=== PATIENT | female | born 1955 | race Caucasian/White ===

== ENCOUNTER 2023-06-01 09:13 | Outpatient (OUT) | payer MEDICARE, OTHER, SELFPAY ==
[2023-06-03 12:09] LABS: Calcitriol(1,25 di-OH Vit D) 49.4 pg/mL (24.8-81.5)
== END 2023-06-01 09:14 | disposition home or self-care (01) ==
PROVIDERS: PCP Family Medicine; Visit Provider Podiatrist Foot & Ankle Surgery
DX: M20.11 Hallux valgus (acquired), right foot (principal); M21.611 Bunion of right foot; M19.071 Primary osteoarthritis, right ankle and foot
CPT/HCPCS: 36415; 82306; 82652

== ENCOUNTER 2023-11-05 07:37 | Outpatient (OUT) | payer MEDICARE, OTHER, SELFPAY ==
--- NOTE | 2023-11-05 07:40 | US_ITS ---
[address] [address] Patient Name: CHLOE AGARWAL MRN: [id number] date: 1955 Sex: F Assigned Patient Location: US Current Patient Location: Accession/Order Number: [id number] Exam Date: 11/05/2023 07:48 Report Date: 11/05/2023 09:09 At the request of: YARELIS MCGHEE Procedure: US aorta EXAM: US aorta HISTORY: Abdominal Aortic Aneurysm Without Rupture I71.40 COMPARISON: 03/03/2023 CT exam. TECHNIQUE: Grayscale, color and Doppler FINDINGS: Proximal aorta: 2.5 x 2.4 cm Mid aorta: 1.7 x 1.7 cm Distal aorta: 1.4 x 1.4 cm Right common iliac artery: 1.0 x 1.0 cm Left common iliac artery: 1.1 x 1.0 cm Normal color Doppler flow US/US aorta IMPRESSION: No abdominal aortic aneurysm observed Electronically authenticated by: JULIANA HARRIS Date: 11/05/2023 09:09
== END 2023-11-05 07:38 | disposition home or self-care (01) ==
LOC: US 07:37
PROVIDERS: PCP Family Medicine; Visit Provider Family Medicine
DX: I71.40 Abdominal aortic aneurysm, without rupture, unspecified (principal)
CPT/HCPCS: 76706

== ENCOUNTER 2023-11-25 21:06 | Outpatient (REF) | payer MEDICARE, SELFPAY ==
--- OUTSIDE RECORDS SUMMARY | 2023-11-25 21:11 | XMS_ITS | CCD ---
Author Name Unknown Address [address] [place] [address] Organization [facility] Care Team Providers Care Recycling Coordinator Name Role Phone Adryan Yoon Unavailable Unavailable Adryan Yoon Unavailable Unavailable YARELIS MCGHEE Unavailable Unavailable Fernie Sandoval Unavailable Unavailable Yarelis Mcghee Primary Care Physician BRICE ., DR RANGEL Admitting Unavailabl e KARОЛЕГK ., DR RANGEL Consulting Unavailabl e KARASIK ., DR RANGEL Attending Unavailabl e MISC, DR MORRISSEY Primary Care Unavailable HOY ., DR SANTOYO Primary Care Unavailable ZIEBER, DR RYAN Billingsley Consulting Unavailable NILL ., DR GUZMÁN Admitting Unavailable NILL ., DR GUZMÁN Attending Unavailable NILL ., DR GUZMÁN Consulting Unavailable HOY ., DR SANTOYO Primary Care Unavailable HOY ., DR SANTOYO Consulting Unavailable HOY ., DR SANTOYO Attending Unavailable HOY ., DR SANTOYO Admitting Unavailable ZIEBER, DR RYAN Billingsley Consulting Unavailable HOY ., DR SANTOYO Primary Care Unavailable HOY ., DR SANTOYO Consulting Unavailable HOY ., DR SANTOYO Attending Unavailable HOY ., DR SANTOYO Admitting Unavailable KARASIK ., DR RANGEL Admitting Unavailabl e HOY ., DR SANTOYO Primary Care Unavailable KARASIK ., DR RANGEL Consulting Unavailabl e KARASIK ., DR RANGEL Attending Unavailabl e ZIEBER, DR RYAN Billingsley Consulting Unavailable THIERRY VILLALOBOS Attending Unavailable Vicky Castillo Attending Unavailable FRANCO Castillo Admitting Unavailabl e Yarelis Mcghee Referring Unavailable Yarelis Mcghee Referring Unavailable Demar Trammell Attending Unavailable Demar Trammell Admitting Unavailable Hoy, Yarelis Referring Unavailable Demar Trammell Attending Unavailable MD Demar Trammell Admitting Unavailable Hoy, Yarelis Referring Unavailable Vicky Castillo Attending Unavailable FRANCO Castillo Admitting Unavailabl e MD Demar Trammell Admitting Unavailable Demar Trammell Attending Unavailable Hoy, Yarelis Referring Unavailable NONE, XXXX Referring Unavailable SHALA, Vicky L Attending Unavailable SHALA Vicky L Admitting Unavailable NONE, XXXX Referring Unavailable Landon DOUGLAS Attending Unavailable Landon DOUGLAS Admitting Unavailable NILL, R Attending Unavailable NILL, R Attending Unavailable Vicky Castillo Attending Unavailable Cry, Yarelis Referring Unavailable FRANCO Castillo Admitting Unavailabl e NONE, XXXX Referring Unavailable Landon DOUGLAS Attending Unavailable Landon DOUGLAS Admitting Unavailable NONE, XXXX Referring Unavailable STANVika, Vicky L Attending Unavailable STANG, Vicky L Admitting Unavailable NILL, R Referring Unavailable NILL, R Attending Unavailable NILL, R Admitting Unavailable MD Demar Trammell Admitting Unavailable Demar Trammell Referring Unavailable Demar Trammell Attending Unavailable Claudio Monroe Referring Unavailable Claudio Monroe Attending Unavailable Claudio Monroe Admitting Unavailable Vicky Castillo Attending Unavailable Vicky Castillo Admitting Unavailable Prasad Avalos Attending Unavailable Landon DOUGLAS Referring Unavailable Husain, Basem GRuba Attending Unavailable Husain, Basem GRuba Admitting Unavailable Husain, Basem G. Referring Unavailable HusainCarmen lealm GRuba Attending Unavailable Vicky Castillo Attending Unavailable Hoy, Yarelis Referring Unavailable FRANCO Castillo Admitting UnavailMD Demar Holguin Admitting Unavailable Demar Trammell Attending Unavailable Hoy, Yarelis Referring Unavailable Allergies Allergy Classification Reported Allergen(s) Allergy Type Date of Onset Reaction(s) Facility (1 source) Sulfonamide; Translations: [sulfonamide] Propensity to adverse reactions to drug (disorder) [facility] Repository (20 sources) Sulfonamides (Antibiotic); Translations: [sulfa drugs] Drug allergy unknown [facility] (20 sources) Lisinopril; Translations: [lisinopril] Drug Allergy Coughing - function (qualifier value) [facility] (1 source) Sulfonamides (Antibiotic) Drug allergy (disorder) [facility] Repository (10 sources) gabapentin; Translations: [gabapentin] Drug Allergy Headache (finding) [facility] Medications Current Medications Medication Drug Class(es) Dates Sig (Normalized) Sig (Original) alendronic acid 70 mg oral tablet (18 sources) Bisphosphonate Start: 02-24-20 take 1 tablet by mouth every week alendronate 70 mg Tab TAKE 1 TABLET BY MOUTH 30 MINUTES BEFORE first food once a week, Prophylaxis Start Date: 02/23/23 Status: Ordered gabapentin 300 mg oral capsule (6 sources) Anti-epileptic Agent Start: 05-04-20 gabapentin 300 mg Cap 300 mg = 1 cap(s), Oral, BID, start with once a day for a week. If doing ok can increase to BID, # 60 cap(s), Refills(s) 0, Pharmacy: [facility], 152, cm, 05/04/23 8:55:00 EDT, Height/Length Dosing, 72.6, kg, 05/04/23 8:55:00 EDT, Weight Dosing Start Date: 05/04/23 Status: Ordered hydroCHLOROthiazide 12.5 mg oral capsule (4 sources) Thiazide Diuretic Start: 11-17-19 take 1 capsule by mouth once daily hydrochlorothiazide 12.5 mg Cap 12.5 mg = 1 cap(s), Oral, Daily, # 30 cap(s), Refills(s) 6, Pharmacy: [facility], 152, cm, 11/17/23 11:29:00 EST, Height/Length Dosing, 79.6, kg, 11/17/23 11:29:00 EST, Weight Dosing Start Date: 11/17/23 Status: Ordered linaclotide 0.072 mg oral capsule (3 sources) Guanylate Cyclase-C Agonist Start: 03-19-20 take 1 capsule by mouth once daily Linzess 72 mcg oral capsule 72 mcg = 1 cap(s), Oral, Daily, Refills(s) 0 Start Date: 03/19/21 Status: Ordered lisinopril 20 mg oral tablet (3 sources) Angiotensin Converting Enzyme Inhibitor Start: 09-01-20 take 1 tablet by mouth once daily lisinopril 20 mg Tab 20 mg = 1 tab(s), Oral, Daily, # 30 tab(s), Refills(s) 0 Start Date: 09/01/21 Status: Ordered losartan potassium 100 mg oral tablet (20 sources) Angiotensin 2 Receptor Hermilo Start: 07-14-20 take 1 tablet by mouth at bedtime losartan 100 mg Tab 100 mg = 1 tab(s), Oral, Bedtime, # 90 tab(s), Refills(s) 1, Pharmacy: [facility], 152, cm, 07/14/23 9:26:00 EDT, Height/Length Dosing, 76.9, kg, 07/14/23 9:26:00 EDT, Weight Dosing Start Date: 07/14/23 Status: Ordered Start: 06-30-2023 End: 07-30-2023 take 1 tablet by mouth twice daily losartan 50 mg Tab 50 mg = 1 tab(s), Oral, BID, X 30 day(s), # 60 tab(s), Refills(s) 0, Pharmacy: [facility], 152, cm, 06/30/23 15:07:00 EDT, Height/Length Dosing, 77.5, kg, 06/30/23 15:07:00 EDT, Weight Dosing Start Date: 06/30/23 Stop Date: 07/30/23 Status: Ordered Start: 06-05-2023 End: 07-05-2023 take 1 tablet by mouth once daily losartan 50 mg Tab 50 mg = 1 tab(s), Oral, Daily, X 30 day(s), # 30 tab(s), Refills(s) 0, Pharmacy: [facility], 152.4, cm, 06/05/23 8:54:00 EDT, Height/Length Dosing, 73, kg, 06/05/23 8:54:00 EDT, Weight Dosing Start Date: 06/05/23 Stop Date: 07/05/23 Status: Ordered Start: 11-05-2022 End: 10-31-2023 take 1 tablet by mouth once daily Cozaar 25 mg Tab 25 mg = 1 tab(s), Oral, Daily, stopping Lisinopril Starting Cozaar, X 90 day(s), # 90 tab(s), Refills(s) 3, Pharmacy: [facility], 152, cm, 11/05/22 11:35:00 EST, Height/Length Dosing, 76, kg, 11/05/22 11:35:00 EST, Weight Dosing Start Date: 11/05/22 Stop Date: 10/31/23 Status: Ordered methylPREDNISolone 4 mg oral tablet (1 source) Corticosteroid Start: 09-22-2023 End: 09-28-2023 Medrol 4 mg Tab = 1 packet(s), Oral, As Directed, as directed on package labeling, X 6 day(s), # 21 tab(s), Refills(s) 0, Pharmacy: [facility], 152, cm, 09/22/23 11:39:00 EST, Height/Length Dosing, 70.5, kg, 09/22/23 11:39:00 EST, Weight Dosing Start Date: 09/22/23 Stop Date: 09/28/23 Status: Ordered 24 hr metoprolol succinate 50 mg extended release oral tablet (20 sources) beta-Adrenergic Hermilo Start: 11-17-2023 take 2 tablets by mouth once daily metoprolol 50 mg ER Tab 100 mg = 2 tab(s), Oral, Daily, Refills(s) 0 Start Date: 11/17/23 Status: Ordered Start: 06-30-2023 End: 12-27-2023 take 1 tablet by mouth once daily metoprolol 50 mg ER Tab 50 mg = 1 tab(s), Oral, Daily, # 90 tab(s), Refills(s) 1, Pharmacy: [facility], 152, cm, 07/14/23 9:26:00 EDT, Height/Length Dosing, 76.9, kg, 07/14/23 9:26:00 EDT, Weight Dosing Start Date: 07/14/23 Status: Ordered Start: 11-14-2022 take 1 tablet by herberth once daily metoprolol 25 mg ER Tab 25 mg = 1 tab(s), Oral, Daily, # 90 tab(s), Refills(s) 3, Pharmacy: [facility], 152, cm, 11/05/22 11:35:00 EST, Height/Length Dosing, 76, kg, 11/05/22 11:35:00 EST, Weight Dosing Start Date: 11/14/22 Status: Ordered Start: 10-08-2021 End: 10-03-2022 take 1 tablet by mouth once daily Toprol XL 25 mg Tab-ER 25 mg = 1 tab(s), Oral, Daily, X 90 day(s), # 90 tab(s), Refills(s) 3, Pharmacy: [facility], 152, cm, 10/08/21 13:49:00 EST, Height/Length Dosing, 73, kg, 10/08/21 13:49:00 EST, Weight Dosing Start Date: 10/08/21 Stop Date: 10/03/22 Status: Ordered Multi Vitamin+ (6 sources) Start: 09-22-2023 Multi Vitamin+ Oral, Daily, Refill(s) 0 Start Date: 09/22/23 Status: Ordered Start: 09-22-2023 Multi Vitamin+ Refill(s) 0 Start Date: 09/22/23 Status: Ordered Aleve (6 sources) Nonsteroidal Anti-inflammatory Drug Start: 09-22-2023 Aleve Refills(s) 0 Start Date: 09/22/23 Status: Ordered pantoprazole 40 mg delayed release oral tablet (20 sources) Proton Pump Inhibitor Start: 04-16-2021 take 1 tablet by mouth twice daily Protonix 40 mg Tab-DR 40 mg = 1 tab(s), Oral, BID, # 120 tab(s), Refills(s) 0, Pharmacy: [facility], 152.4, cm, 04/01/21 7:20:00 EDT, Height/Length Dosing, 85.5, kg, 04/01/21 7:20:00 EDT, Weight Dosing Start Date: 04/16/21 Status: Ordered Start: 09-18-2019 take 40 mg by mouth once daily pantoprazole 40 mg, Oral, Daily, Refills(s) 0 Start Date: 09/18/19 Status: Ordered pregabalin 25 mg oral capsule (4 sources) Start: 10-26-2023 pregabalin 25 mg Cap 25 mg = 1 cap(s), Oral, BID, start with once a day for 3-5 days. If doing well can go to BID, # 60 cap(s), Refills(s) 0, Pharmacy: [facility], 152, cm, 10/26/23 13:07:00 EST, Height/Length Dosing, 70.5, kg, 10/26/23 13:07:00 EST, Weight Dosing Start Date: 10/26/23 Status: Ordered rOPINIRole 0.5 mg oral tablet (10 sources) Nonergot Dopamine Agonist Start: 09-22-2023 ropinirole 0.5 mg, O ral, Refills(s) 0 Start Date: 09/22/23 Status: Ordered Start: 02-23-2023 take 1 tablet by herberth th at bedtime ropinirole 0.5 mg Tab take 1 tablet by mouth at bedtime, Other (see comment) Start Date: 02/23/23 Status: Ordered sucralfate 1000 mg oral tablet (20 sources) Aluminum Complex Start: 04-03-2023 take 1 tablet by mouth four times daily Carafate 1 gram Tab 1 gm = 1 tab(s), Oral, QID, # 120 tab(s), Refills(s) 3, Pharmacy: [facility], 152, cm, 04/03/23 9:20:00 EDT, Height/Length Dosing, 80, kg, 04/03/23 9:20:00 EDT, Weight Dosing Start Date: 04/03/23 Status: Ordered Start: 09-01-2021 sucralfate ora l susp Refills(s) 0 Start Date: 09/01/21 Status: Ordered Start: 03-07-2021 Carafate 1 g/1 0 mL Susp-Oral 100 mg/ml, Oral, q4hr, Refills(s) 0 Start Date: 03/07/21 Status: Ordered Completed/Discontinued Medications Medication Drug Class(es) Dates Sig (Normalized) Sig (Original) Adult Blood Pressure Monitor with Large Bicep Cuff (13 sources) Start: 04-28-2023 Adult Blood Pressure Monitor with Large Bicep Cuff Adult Blood Pressure Monitor with Large Bicep Cuff, See Instructions, 1 EA, 0, Check BP Daily Dx I10, Supply Start Date: 04/28/23 Status: Ordered Problems Active Problems Problem Classification Problem Date Documented Date Episodic/Chronic Abdominal hernia (2 sources) Diaphragmatic hernia; Translations: [Diaphragmatic hernia without obstruction or gangrene] Onset: 06-16-202 3 Episodic Abdominal pain (20 sources) Epigastric pain; Translations: [Epigastric pain] Onset: 3 Episodic Appendicitis and other appendiceal conditions (20 sources) Appendicitis 03-07-2021 Episodic Biliary tract disease (1 source) Calculus of gallbladder without cholecystitis without obstruction; Translations: [CALCU GB W/O CHOLECYST W/O OBST] Onset: 3 Episodic Conditions associated with dizziness or vertigo (20 sources) Vertigo; Translations: [Dizziness and giddiness] Onset: 3 03-07-2021 Episodic Diverticulosis and diverticulitis (17 sources) Diverticula of intestine; Translations: [Diverticulosis of large intestine without perforation or abscess without bleeding] Onset: 3 Chronic Esophageal disorders (20 sources) Gastroesophageal reflux disease; Translations: [Gastroesophageal reflux disease without esophagitis] Onset: 3 03-07-2021 Chronic Essential hypertension (20 sources) Essential hypertension; Translations: [Essential (primary) hypertension] Onset: 2 Chronic Fluid and electrolyte disorders (1 source) Hypokalemia; Translations: [Hypokalemia] Onset: 2 Episodic Gastritis and duodenitis (20 sources) Gastritis 03-07-2021 Episodic Nausea and vomiting (20 sources) Regurgitation 03-11-2021 Episodic Nonspecific chest pain (20 sources) Chest pain; Translations: [Chest pain, unspecified] Onset: 3 Episodic Osteoarthritis (20 sources) Osteoarthritis of right knee joint 03-07-2021 Chronic Osteoporosis (20 sources) Osteoporosis; Translations: [Age-related osteoporosis without current pathological fracture] Onset: 3 02-16-2023 Chronic Other connective tissue disease (1 source) Spasm; Translations: [Cramp and spasm] Onset: 2 Episodic Other connective tissue disease (18 sources) H/O: osteoarthritis 02-23-2023 Episodic Other connective tissue disease (6 sources) Tendinitis 09-22-2023 Episodic Other gastrointestinal disorders (1 source) Esophageal dysphagia; Translations: [Dysphagia, pharyngoesophageal phase] Onset: 3 Episodic Other gastrointestinal disorders (19 sources) Dysphagia 02-20-2023 Episodic Other lower respiratory disease (20 sources) Cough 04-17-2021 Episodic Other nutritional; endocrine; and metabolic disorders (20 sources) Body mass index 30+ - obesity 03-08-2021 Chronic Other screening for suspected conditions (not mental disorders or infectious disease) (11 sources) Screening for malignant neoplasm of colon done; Translations: [Encounter for screening for malignant neoplasm of colon] Onset: 2 Episodic Other upper respiratory disease (20 sources) Nasal sinus problem 04-17-2021 Episodic Residual codes; unclassified (1 source) Obstructive sleep apnea syndrome; Translations: [Obstructive sleep apnea (adult) (pediatric)] Onset: 3 Chronic Unclassified (19 sources) Patient encounter status 02-20-2023 Unclassified (2 sources) CONTACT W/AND (SUSP) EXPOS COVID-19; Translations: [CONTACT W/AND (SUSP) EXPOS COVID-19] Onset: 3 Viral infection (1 source) COVID-19; Translations: [COVID-19] Onset: 3 Past or Other Problems Problem Classification Problem Date Documented Date Episodic/Chronic Acute bronchitis (1 source) Acute bronchitis, unspecified; Translations: [ACUTE BRONCHITIS UNSPECIFIED] Onset: 11-10-2022 Episodic Immunizations and screening for infectious disease (1 source) Encounter for screening for human papillomavirus (HPV); Translations: [ENC SCREENING HUMAN PAPILLOMAVIRUS] Onset: 09-27-2022 Episodic Residual codes; unclassified (1 source) Asymptomatic menopausal state; Translations: [ASYMPTOMATIC MENOPAUSAL STATE] Onset: 10-26-2022 Episodic Unclassified (1 source) CONTACT W/AND (SUSP) EXPOS COVID-19; Translations: [CONTACT W/AND (SUSP) EXPOS COVID-19] Onset: 11-05-2022 Results Test Name Value Interpretation Reference Range Facility Consent for Treatmenton Consent for Treatment [id number] [facility] Consultation Noteon 11-20-19 Consultation Note Patient: CHLOE AGARWAL Age: 68 years Sex: Female : 1955 Associated Diagnoses: None Author: Vicky Castillo PA-C Subjective Chief complaint 11/20/2023 13:11 EST low back pain . Patient is a 67-year-old female. She has a past medical history significant for lumbar neuritis, lumbar degenerative disc disease, and lumbar spondylolisthesis. Was more calm and this time around than last time. She states that the Lyrica caused her to have memory problems so she stopped it. She continues to have lower back pain with bilateral leg pain and leg cramping. She had some trigger point injections in her buttocks by her PCP on 11/12/2023. Unfortunate, she notes no long-term relief. She rates her pain a 4/10 at this time. They did look up a spine surgeon and they wonder if there were any local spine surgeons we could refer her to as they feel that we would really like to just get a surgical opinion and get this issue fixed. Patient has difficulty with all aspects of her activities because of the pain. This affects her quality of life. This affects her activities. Health Status Allergies: Allergic Reactions (Selected) Severity Not Documented Gabapentin- Headache. Sulfa drugs- Unknown. Nonallergic Reactions (Selected) Severity Not Documented Lisinopril- Coughing., Allergies (3) Active Severity Reaction sulfa drugs unknown lisinopril Coughing gabapentin Headache Current medications: (Selected) Prescriptions Prescribed Adult Blood Pressure Monitor with Large Bicep Cuff: Adult Blood Pressure Monitor with Large Bicep Cuff, See Instructions, 1 EA, 0, Check BP Daily Dx I10, Supply Carafate 1 gram Tab: 1 gm = 1 tab(s), Oral, QID, # 120 tab(s), Refills(s) 3, Pharmacy: [facility], 152, cm, 04/03/23 9:20:00 EDT, Height/Length Dosing, 80, kg, 04/03/23 9:20:00 EDT, Weight Dosing Protonix 40 mg Tab-DR: 40 mg = 1 tab(s), Oral, BID, # 120 tab(s), Refills(s) 0, Pharmacy: [facility], 152.4, cm, 04/01/21 7:20:00 EDT, Height/Length Dosing, 85.5, kg, 04/01/21 7:20:00 EDT, Weight Dosing hydrochlorothiazide 12.5 mg Cap: 12.5 mg = 1 cap(s), Oral, Daily, # 30 cap(s), Refills(s) 6, Pharmacy: [facility], 152, cm, 11/17/23 11:29:00 EST, Height/Length Dosing, 79.6, kg, 11/17/23 11:29:00 EST, Weight Dosing losartan 100 mg Tab: 100 mg = 1 tab(s), Oral, Bedtime, # 90 tab(s), Refills(s) 1, Pharmacy: [facility], 152, cm, 07/14/23 9:26:00 EDT, Height/Length Dosing, 76.9, kg, 07/14/23 9:26:00 EDT, Weight Dosing pregabalin 25 mg Cap: 25 mg = 1 cap(s), Oral, BID, start with once a day for 3-5 days. If doing well can go to BID, # 60 cap(s), Refills(s) 0, Pharmacy: [facility], 152, cm, 10/26/23 13:07:00 EST, Height/Length Dosing, 70.5, kg, 10/26/23 13:07:00 EST, Weigh... Documented Medications Documented Aleve: Refills(s) 0 Multi Vitamin+: Oral, Daily, Refill(s) 0 alendronate 70 mg Tab: TAKE 1 TABLET BY MOUTH 30 MINUTES BEFORE first food once a week, Prophylaxis hydrochlorothiazide 12.5 mg Cap: 12.5 mg = 1 cap(s), Oral, Daily, # 30 cap(s), Refills(s) 6 metoprolol 50 mg ER Tab: 100 mg = 2 tab(s), Oral, Daily, Refills(s) 0 ropinirole: 0.5 mg, Oral, Refills(s) 0 Problem list: All Problems Chronic GERD / SNOMED CT 382441565 / Confirmed Unilateral primary osteoarthritis, right knee / SNOMED CT 4138509321 / Confirmed Gastritis / SNOMED CT 2351596 / Confirmed Vertigo / SNOMED CT 0793382569 / Confirmed BMI 34.0-34.9,adult / SNOMED CT 263129222 / Confirmed Regurgitation of stomach contents / SNOMED CT 579666972 / Confirmed Osteoporosis / SNOMED CT 525492797 / Confirmed HTN (hypertension) / SNOMED CT 3635623932 / Confirmed Dysphagia / SNOMED CT 34030000 / Confirmed Epigastric pain / SNOMED CT 142275587 / Confirmed Chest pain due to GERD / SNOMED CT 73455508 / Confirmed Screening for malignant neoplasm of colon / SNOMED CT 974479387 / Confirmed H/O: osteoarthritis / SNOMED CT 241078013 / Confirmed Hiatal hernia with gastroesophageal reflux / SNOMED CT 3156885278 / Confirmed Duodenogastric bile reflux / SNOMED CT 67225724 / Confirmed Sigmoid diverticulosis / SNOMED CT 0221415058 / Confirmed Tendonitis / SNOMED CT 55969513 / Confirmed Resolved: GERD - Gastro-esophageal reflux disease / SNOMED CT 6604072852 Resolved: Appendicitis / SNOMED CT 067391917 Resolved: Cough / SNOMED CT 72417744 Resolved: Sinus drainage / SNOMED CT 840674597 Canceled: GERD with apnea / SNOMED CT 8074372310 Objective Vital Signs 11/20/2023 13:11 EST Peripheral Pulse Rate 59 bpm LOW Respiratory Rate 18 br/min Systolic Blood Pressure 156 mmHg HI Diastolic Blood Pressure 81 mmHg Mean Arterial Pressure, Cuff 106 mmHg General: Alert and oriented, No acute distress. Eye: Normal conjunctiva. HENT: Normocephalic, Normal hearing. Cardiovascular: No edema. Musculoskeletal Normal range of motion. Normal strength. 5/5 lower extremity streng (more content not included)... Normal [facility] Comment on above: Result Comment: Elec tronically Signed By: Anna GAMEZ, Vicky\.br\Date and Time Signed: 11/20/23 13:40 EST Office/Clinic Note-Physician on 11-20-2023 Office/Clinic Note-Physician [id number] Normal [facility] Patient Correspondenceon Patient Correspondence [id number] [facility] Consent for Treatmenton 10-21 Consent for Treatment [id number] [facility] Heart and Vascular Office/Cl inic Noteon 11-17-2023 Heart and Vascular Office/Clinic Note History of Present Illness Patient is a very pleasant 68-year-old hypertensive female, nondiabetic, non-smoker, referred to our office after she went to the emergency room on 09/02/2021 with abdominal pain radiating into her back. She reportedly had a stress test, echocardiogram and Holter monitor at [facility] prior to her ER visit on 09/02/2021. Troponins were negative x1, and she was assigned a heart score of 4 and discharged home. In addition the patient apparently had a syncopal episode several weeks prior to her presentation, but cannot recall whether she had any chest pain prior to her syncope.. Her echocardiogram done at [facility] on 08/20/2021 which showed left ventricular systolic function at the lower limits of normal with an LVEF of 50%, normal right-sided pressure. Her stress test dated 08/20/2021 was nondiagnostic based on abnormal T waves in lead III multiple PVCs including couplets and triplets as well as multifocal PVCs. In addition the patient had a hypertensive blood pressure response to exercise, no imaging was performed. Test was terminated due to shortness of breath and dizziness. Patient cannot recall whether she had any chest pain. This then gave way to a Lexiscan/MPI which took place at an outside facility at [facility] on 09/03/2021 which was read as normal. In addition the patient had an EGD in March 2021 which showed hiatal hernia, and antral gastritis. Patient was placed on PPI therapy. Patient states that she has reflux symptoms on a daily basis, and every 4 months has exacerbations of her chest pain. She describes her chest pain is midsternal, severe burning, which produces saliva, no associated nausea, vomiting, diaphoresis and apparently goes up into her throat. Patient also has constant dull gnawing ache in her midepigastrium, and is slated to undergo a gallbladder ultrasound soon. Patient appears to be a very anxious lady. In addition she has a brother in [place] who apparently has coronary disease the specific of which are unknown. To better evaluate the patient's symptoms, I recommend he undergo a cardiac catheterization which took place on 09/17/2021 with the following results: CONCLUSIONS: 1. Normal coronary arteries. 2. Low normal left ventricular function with a left ventricular ejection fraction of 50-55%. 3. Normal left ventricular end-diastolic pressure. 4. Systemic hypertension. [1] Subsequent echocardiogram dated 10/27/2022 is as below: (10/27/2022 09:52 EST Echo Transthoracic Complete) Interpretation Summary Ejection Fraction = 55-60%. The left ventricular wall motion is normal. Grade I diastolic dysfunction, (abnormal relaxation pattern). Trace aortic regurgitation. There is Trace mitral regurgitation. There is trace tricuspid regurgitation. Right ventricular systolic pressure is 35 mmHg. [1] Patient was recently seen in the emergency room on 06/12/2023 with main complaint of dizziness and very high blood pressure with a blood pressure of 173/106. She was then referred here for further evaluation. Patient is now here in follow-up. She is asymptomatic. She is doing quite well. She is tolerating his medicines well. Patient was found to have gallstones, by ultrasound, and needs HIDA scan in the near future. She is going to see a GI doctor Dr. Zambrano. Patient went to Dr. Marquez of GI and was not happy with their visit with him. Patient has had a dry hacking cough ever since starting lisinopril. We switch her to losartan and this is better. Her blood pressure still not well controlled. In addition the patient complains of reflux type symptoms and has a known hiatal hernia. She denies any exertional chest pain or anginal symptoms. Her Toprol ER was increased to 50 mg daily by her PCP. Patient has excessive snoring at night but has never had a sleep study. She is under a significant amount of psychosocial stress with her bipolar son. In our office today his blood pressure is 170/118 and pulse is 68 and regular. Physical exam is as below. Patient has no lipid profile. EKG dated 09/01/2021 shows normal sinus rhythm, normal axis, PVC, no evidence of previous myocardial infarction. Review of Systems Constitutional: no fever, no chills, no weakness, no fatigue Respiratory: no shortness of breath, no cough, no orthopnea, no wheezing Cardiovascular: no chest pain, no palpitations, no edema Neuro: no dizziness no light headed no syncope Additional ROS info: Except as noted in the above Review of Systems and in the History of Present Illness all other systems have been reviewed and are negative or noncontributory. Physical Exam General: alert, no acute distress Neck: Supple, noJVD nocarotid bruit Cardiovascular: regular rate and rhythm, no murmur normal peripheral perfusion Respiratory: Lungs CTA, respirations non labored Extremities: no edema Neurological: oriented x 4, LOC appropriate for age, sensation equal & normal bilaterally, speech normal Skin: Warm, dry, intact- no rash or concerning lesion (more content not included)... [facility] Comment on above: Result Comment: Elec tronically Signed By: MISAEL CANTRELL, Landon Mckinley\.br\Date and Time Signed: 11/17/23 11:44 EST Physician Orderon 11-17-2023 Physician Order [id number]#1.00TIFF [facility] XR Pelvis 1 or 2 Viewson XR Pelvis 1 or 2 Views Exam Date/Time: 10/26/2023 13:48 EST Reason for Exam: [id number] Report IMPRESSION: NO ACUTE OSSEOUS ABNORMALITY. EXAM: XR Pelvis 1 or 2 Views HISTORY: Right buttock and knee pain. Left groin pain. COMPARISON: None available TECHNIQUE: Single AP film of the pelvis obtained. FINDINGS: No acute displaced pelvic fracture. Degenerative changes of both sacroiliac joints. Joint spaces of both hips are maintained. Soft tissues appear within normal limits. Ordering Provider: Vicky Castillo FINAL REPORT Dictated: 10/27/2023 1:01 pm Nico Rogers DO Signed (Electronic Signature): 10/27/2023 1:01 pm Signed by: Nico Rogers DO Transcribed by: SCOTTY Technologist: DANIELLE Technical Comments Radiation Dose: Ka,r in mGy = na DAP = na [facility] XR Spine Lumbosacral 2 or 3 Viewson 10-27-2023 XR Spine Lumbosacral 2 or 3 Views Exam Date/Time: 10/26/2023 13:48 EST Reason for Exam: [id number] Report IMPRESSION: DEGENERATIVE CHANGES OF THE LUMBAR SPINE DETAILED. POSSIBLE DISTAL ABDOMINAL AORTIC ANEURYSM. CT ANGIOGRAM OF THE ABDOMEN AND PELVIS WITH CONTRAST IS RECOMMENDED TO FURTHER EVALUATE. EXAMINATION: XR Spine Lumbosacral 2 or 3 Views TECHNIQUE: AP and lateral views lumbar spine and coned-down lateral view of the lumbosacral junction HISTORY: Right buttock and knee pain. Left groin pain. COMPARISONS: None available. FINDINGS: Minimal levocurvature. Lumbar vertebral body heights are maintained. Bilateral L5 spondylolysis with grade 2 anterolisthesis of L5 on S1 of approximately 14 mm. Severe intervertebral disc height loss at L5-S1. Suspect bilateral neuroforaminal stenosis at L5-S1. Atherosclerotic calcification of the abdominal aorta. Question distal abdominal aortic aneurysm based on the configuration of the atherosclerotic calcifications. Ordering Provider: Vicky Castillo FINAL REPORT Dictated: 10/27/2023 12:36 pm Nico Rogers DO Signed (Electronic Signature): 10/27/2023 12:36 pm Signed by: Nico Rogers DO Transcribed by: SCOTTY Technologist: DANIELLE Technical Comments Radiation Dose: Ka,r in mGy = na DAP = na [facility] Consent for Treatmenton Consent for Treatment [id number]#1.00TIFF [facility] Consent for Treatment [id number]#1.00TIFF [facility] Consultation Noteon 10-26-19 24 Consultation Note Patient: CHLOE AGARWAL Age: 68 years Sex: Female : 1955 Associated Diagnoses: None Author: Vicky Castillo PA-C Subjective Chief complaint 10/26/2023 12:48 EST pain across lower back- down bilat legs (into left groin) . Patient is a 67-year-old female. She has a past medical history significant for lumbar neuritis, lumbar degenerative disc disease, and lumbar spondylolisthesis. She presents today for follow-up after undergoing a right-sided L5-S1 transforaminal epidural steroid injection. This was done on 10/07/2023 and she states gave her short-term relief but unfortunate, nothing long-term. She is still having lower back pain with right radiating leg pain that the states that something aggressive needs to be done about because she was crying all weekend and they cannot continue to have her have this much pain. She also admits to some left-sided groin pain. She states that this is new. She rates her pain a 10/10. Patient has difficulty with all aspects of her activities because of the pain. This affects her ability to come to. This affects her quality of life. This affects her activities and affects her ability to do the things she wants to do. She wonders what her options are to try to get some pain relief. She states that steroids historically have worked very well for her. Health Status Allergies: Allergic Reactions (Selected) Severity Not Documented Gabapentin- Headache. Sulfa drugs- Unknown. Nonallergic Reactions (Selected) Severity Not Documented Lisinopril- Coughing., Allergies (3) Active Reaction gabapentin Headache lisinopril Coughing sulfa drugs unknown Current medications: (Selected) Prescriptions Prescribed Adult Blood Pressure Monitor with Large Bicep Cuff: Adult Blood Pressure Monitor with Large Bicep Cuff, See Instructions, 1 EA, 0, Check BP Daily Dx I10, Supply Carafate 1 gram Tab: 1 gm = 1 tab(s), Oral, QID, # 120 tab(s), Refills(s) 3, Pharmacy: [facility], 152, cm, 04/03/23 9:20:00 EDT, Height/Length Dosing, 80, kg, 04/03/23 9:20:00 EDT, Weight Dosing Protonix 40 mg Tab-DR: 40 mg = 1 tab(s), Oral, BID, # 120 tab(s), Refills(s) 0, Pharmacy: [facility], 152.4, cm, 04/01/21 7:20:00 EDT, Height/Length Dosing, 85.5, kg, 04/01/21 7:20:00 EDT, Weight Dosing losartan 100 mg Tab: 100 mg = 1 tab(s), Oral, Bedtime, # 90 tab(s), Refills(s) 1, Pharmacy: [facility], 152, cm, 07/14/23 9:26:00 EDT, Height/Length Dosing, 76.9, kg, 07/14/23 9:26:00 EDT, Weight Dosing metoprolol 50 mg ER Tab: 50 mg = 1 tab(s), Oral, Daily, # 90 tab(s), Refills(s) 1, Pharmacy: [facility], 152, cm, 07/14/23 9:26:00 EDT, Height/Length Dosing, 76.9, kg, 07/14/23 9:26:00 EDT, Weight Dosing pregabalin 25 mg Cap: 25 mg = 1 cap(s), Oral, BID, start with once a day for 3-5 days. If doing well can go to BID, # 60 cap(s), Refills(s) 0, Pharmacy: [facility], 152, cm, 10/26/23 13:07:00 EST, Height/Length Dosing, 70.5, kg, 10/26/23 13:07:00 EST, Weigh... Documented Medications Documented Aleve: Refills(s) 0 Multi Vitamin+: Oral, Daily, Refill(s) 0 alendronate 70 mg Tab: TAKE 1 TABLET BY MOUTH 30 MINUTES BEFORE first food once a week, Prophylaxis ropinirole: 0.5 mg, Oral, Refills(s) 0 Problem list: All Problems Chronic GERD / SNOMED CT 417822046 / Confirmed Unilateral primary osteoarthritis, right knee / SNOMED CT 9147657147 / Confirmed Gastritis / SNOMED CT 4729780 / Confirmed Vertigo / SNOMED CT 3918967937 / Confirmed BMI 34.0-34.9,adult / SNOMED CT 268612219 / Confirmed Regurgitation of stomach contents / SNOMED CT 176900320 / Confirmed Osteoporosis / SNOMED CT 626142603 / Confirmed HTN (hypertension) / SNOMED CT 9067471854 / Confirmed Dysphagia / SNOMED CT 74432561 / Confirmed Epigastric pain / SNOMED CT 742348140 / Confirmed Chest pain due to GERD / SNOMED CT 78989571 / Confirmed Screening for malignant neoplasm of colon / SNOMED CT 930706320 / Confirmed H/O: osteoarthritis / SNOMED CT 926986625 / Confirmed Hiatal hernia with gastroesophageal reflux / SNOMED CT 1701140398 / Confirmed Duodenogastric bile reflux / SNOMED CT 83573758 / Confirmed Sigmoid diverticulosis / SNOMED CT 6536373205 / Confirmed Tendonitis / SNOMED CT 84581136 / Confirmed Resolved: GERD - Gastro-esophageal reflux disease / SNOMED CT 7875624799 Resolved: Appendicitis / SNOMED CT 936802598 Resolved: Cough / SNOMED CT 29944121 Resolved: Sinus drainage / SNOMED CT 394814593 Canceled: GERD with apnea / SNOMED CT 7189764458 Objective Vital Signs 10/26/2023 12:48 EST Peripheral Pulse Rate 66 bpm Respiratory Rate 20 br/min Systolic Blood Pressure 143 mmHg HI Diastolic Blood Pressure 88 mmHg Mean Arterial Pressure, Cuff 106 mmHg General: Alert and oriented, No acute distress. Overweight Eye: Normal conjunctiva. HENT: Normocephalic, Normal hearing. Cardiovascular: No edema. Musculoskeletal Nor (more content not included)... [facility] Comment on above: Result Comment: Elec tronically Signed By: Anna GAMEZ, Vicky\.br\Date and Time Signed: 10/26/23 13:22 EST Legal Correspondence Officeo n 10-26-2023 Legal Correspondence Office [id number]#1.00TIFF [facility] Office/Clinic Note-Physician on 10-26-2023 Office/Clinic Note-Physician [id number]#1.00TIFF [facility] Patient Correspondenceon Patient Correspondence [id number]#1.00TIFF [facility] Patient Correspondence [id number]#1.00TIFF [facility] Patient Correspondence [id number]#1.00TIFF [facility] Patient Correspondence [id number]#1.00TIFF [facility] Patient History Officeon Patient History Office [id number]#1.00TIFF [facility] Physician Orderon 10-26-2023 Physician Order [id number]#1.00TIFF [facility] Physician Order [id number]#1.00TIFF [facility] Consent for Procedure/Surger yon 10-07-2023 Consent for Procedure/Surgery [id number]#1.00TIFF [facility] Consent for Treatmenton 09-19 Consent for Treatment [id number]#1.00TIFF [facility] Discharge Instructionson Discharge Instructions [id number]#1.00TIFF [facility] IntraOperative Documentson 12-08-2022 IntraOperative Documents [id number]#1.00TIFF [facility] Main OR Intraoperative Recor don 10-07-2023 Main OR Intraoperative Record IntraOp Document Type FTPM Summary Primary Physician: Claudio Monroe DO Finalized Date/Time: 10/07/23 09:50:14 Pt. Name: CHLOE AGARWAL/Sex: 1955 Female Med Rec #: [id number] Physician: Claudio Monroe DO Financial #: [id number] Pt. Type: P Room/Bed: / Admit/Disch: 10/07/23 08:38:44 - Institution: Case Times FTPM Entry 1 Patient Times In Room 10/07/23 09:41:00 Out Room 10/07/23 09:50:00 Procedure Times Start 10/07/23 09:44:00 Stop 10/07/23 09:49:00 Anesthesia Times Last Modified By: Lashanda Durant RN 10/07/23 09:49:58 Case Attendance FTPM Entry 1 Entry 2 Entry 3 Case Attendee Claudio Monroe DO, RN, Lashanda Erickson RN, [facility] Role Performed Surgeon - Primary [employer] Photographs Detailer - Primary Scrub - Primary Time In 10/07/23 09:41:00 10/07/23 09:41:00 10/07/23 09:41:00 Time Out 10/07/23 09:50:00 10/07/23 09:50:00 10/07/23 09:50:00 Procedure TRANSFORAMINAL EPIDURAL TRANSFORAMINAL EPIDURAL TRANSFORAMINAL EPIDURAL STEROID INJECTIO(Right) STEROID INJECTIO(Right) STEROID INJECTIO(Right) Comments Last Modified By: Lashanda Durant RN, RN, Lashanda Elizalde RN 10/07/23 09:49:59 10/07/23 09:49:59 10/07/23 09:49:59 Entry 4 Case Attendee Faustino Dorado Role Performed Freight Breaker Time In 10/07/23 09:41:00 Time Out 10/07/23 09:50:00 Procedure TRANSFORAMINAL EPIDURAL STEROID INJECTIO(Right) Comments Last Modified By: Lashanda Durant RN 10/07/23 09:49:59 Perioperative Protocols FTPM Pre-Care Text: Implements protective measures prior to operative or invasive procedure, confirms identity before the operative or invasive procedure, verifies operative procedure, surgical site, and laterality Entry 1 Procedure(s) TRANSFORAMINAL EPIDURAL Patient Identity Birthday, ID Band STEROID INJECTIO(Right) Verified (select at Check, Patient least 2): Participation Consents / H and P HandP, Surgery/Procedure Operative Site Present Verified Consent Marking Verified Surgical Site Yes Laterality Verified Yes Verified Procedure Verified Yes Correct Patient Yes Position Verified Availability Equipment, Medication, Prep Dry Yes Verified (If X-ray Applicable) PreOp Antibiotic No Time Out Lashanda Durant RN, Given William Erickson RN, Fer Cruz DO, Bradford A., Hargrove, Bryce Time Out Complete 10/07/23 09:41:00 Outcomes Met? Yes Last Modified By: Lashanda Durant RN 10/07/23 09:42:01 Post-Care Text: The patient is free from signs and symptoms of injury caused by extraneous objects Allergy Information FTPM Pre-Care Text: Verifies allergies Entry 1 Allergies Reviewed? Yes Allergies Reviewed Self/Patient With Outcomes Met? Yes Last Modified By: Lashanda Durant RN 10/07/23 09:32:07 Post-Care Text: The patient received appropriate medication(s) safely administered during the perioperative period Surgical Procedures FTPM Entry 1 Procedure Description Procedure TRANSFORAMINAL EPIDURAL Modifiers Right STEROID INJECTION Surgeon Description L5/S1 TFESI Primary Procedure Yes Primary Surgeon Claudio Monroe DO Start 10/07/23 09:44:00 Stop 10/07/23 09:49:00 Anesthesia Type None Surgical Service Pain Management Wound Class 1 - Clean Last Modified By: Lashanda Durant RN 10/07/23 09:50:01 General Case Data FTPM Pre-Care Text: Classifies surgical wound, implements aseptic technique, initiates traffic control Entry 1 Case Information OR Pain Proc Room Case Level Level 2 Wound Class 1 - Clean Specialty Pain Management Preop Diagnosis M54.16 Postop Same As Preop Yes Postop Diagnosis M54.16 Outcomes Met? Yes Last Modified By: Lashanda Durant RN 10/07/23 09:42:14 Post-Care Text: The patient is free from signs and symptoms of infection Skin Assessment (Pre Procedure) FTPM Pre-Care Text: Implements protective measures to prevent skin/ tissue injury due to thermal or mechanical sources Evaluates for signs and symptoms of physical injury to skin and tissue Entry 1 Skin Integrity Intact, Sanders, Warm, and Skin Abnormality No Dry Outcomes Met? Yes Last Modified By: Lashanda Durant RN 10/07/23 09:32:15 Post-Care Text: The patient is free from signs and symptoms of injury caused by extraneous objects Patient Positioning FTPM Pre-Care Text: Identifies physical alterations that require additional precautions for procedure-specific positioning, verifies presence of prosthetics or corrective devices, positions the patient, evaluates the patient for signs and symptoms of injury as a result of positioning Entry 1 Procedure TRANSFORAMINAL EPIDURAL Body Position Prone STEROID INJECTIO(Right) Feet Uncrossed? Yes Left Arm Position Resting at Side Right Arm Position Resting at Side Left Leg Position Extended Right Leg Position Extended Positioning Device Pillow Under Head Large, Safety Strap, Pillow Large Under Knees Press Point (more content not included)... [facility] Main OR Preoperative Recordo n 10-07-2023 Main OR Preoperative Record Holding Area Document Type FT Summary Primary Physician: Claudio Monroe DO Finalized Date/Time: 10/07/23 09:09:26 Pt. Name: CHLOE AGARWAL D.O.B./Sex: 1955 Female Med Rec #: [id number] Physician: Claudio Monroe DO Financial #: [id number] Pt. Type: P Room/Bed: / Admit/Disch: 10/07/23 08:38:44 - Institution: Case Times Holding FTPM Pre-Care Text: Verifies consent for planned procedure, identifies individual values and wishes concerning care, includes family members in perioperative teaching Secures patient's records' belongings, and valuables, maintains patient's dignity and privacy, and maintains patient confidentiality Entry 1 In Holding 10/07/23 09:07:00 Outcomes Met? Yes Last Modified By: Shea Aguirre RN 10/07/23 09:07:21 Post-Care Text: The patient participates in decisions affecting his or her perioperative plan of care The patient's right to privacy is maintained Surgery Checklist FTPM Entry 1 Patient Birthday, ID Band Procedure History and Physical, Identification: Check, Patient Verification: Surgical Consent, With Participation Patient NPO after Midnight: n/a Date/Time: 10/07/23 08:50:00 Results Reviewed water Personal Items: Glasses Comments: Complaints of Pain: Yes Pain Comment: 5/10 to right lower back Operative Site Yes Marked By: operative site marked Marking: by Dr. Monroe Location: right l5/s1 Availability Equipment, X-Ray Verified: Does Patient Smoke No Patient states Yes Comment - Adult Gilberto-spouse postop adult Supervision supervision available Case Cancelled in No Holding Area see comments below for reason Last Modified By: Shea Aguirre RN 10/07/23 09:09:21 Finalized By: Shea Aguirre RN Document Signatures Signed By: Shea Aguirre RN 10/07/23 09:09 [facility] Patient Correspondenceon Patient Correspondence [id number]#1.00TIFF [facility] Consent for Treatmenton Consent for Treatment [id number]#1.00TIFF [facility] Consultation Noteon 09-22-20 Consultation Note Patient: CHLOE AGARWAL Age: 67 years Sex: Female : 1955 Associated Diagnoses: None Author: Demar Trammell MD Subjective Chief complaint 09/22/2023 11:23 EST Back & Right Leg Pain . 67-year-old female with a history of lumbar radiculopathy secondary to foraminal stenosis due to L5-S1 spondylolisthesis. She had been doing very well following her bilateral L5/S1 transforaminal epidural steroid injection performed in February of this year. Pain started in the right low back and radiates down the posterior aspect of the right leg into the ankle. Pain started to be severe several days ago with no inciting injury or trauma. She continues to do her therapy exercises and taking Aleve without benefit. Patient is miserable. Hard to walk and stand. Hard to sleep. Pain rates as a 10 out of 10 on the visual analog scale. ELVIS is 54. Denies red flag symptoms. Health Status Allergies: Allergic Reactions (All) Severity Not Documented Gabapentin- Headache. Sulfa drugs- Unknown. Nonallergic Reactions (All) Severity Not Documented Lisinopril- Coughing. Current medications: (Selected) Prescriptions Prescribed Adult Blood Pressure Monitor with Large Bicep Cuff: Adult Blood Pressure Monitor with Large Bicep Cuff, See Instructions, 1 EA, 0, Check BP Daily Dx I10, Supply Carafate 1 gram Tab: 1 gm = 1 tab(s), Oral, QID, # 120 tab(s), Refills(s) 3, Pharmacy: [facility], 152, cm, 04/03/23 9:20:00 EDT, Height/Length Dosing, 80, kg, 04/03/23 9:20:00 EDT, Weight Dosing Medrol 4 mg Tab: = 1 packet(s), Oral, As Directed, as directed on package labeling, X 6 day(s), # 21 tab(s), Refills(s) 0, Pharmacy: [facility], 152, cm, 09/22/23 11:39:00 EST, Height/Length Dosing, 70.5, kg, 09/22/23 11:39:00 EST, Weight Dosing Protonix 40 mg Tab-DR: 40 mg = 1 tab(s), Oral, BID, # 120 tab(s), Refills(s) 0, Pharmacy: [facility], 152.4, cm, 04/01/21 7:20:00 EDT, Height/Length Dosing, 85.5, kg, 04/01/21 7:20:00 EDT, Weight Dosing losartan 100 mg Tab: 100 mg = 1 tab(s), Oral, Bedtime, # 90 tab(s), Refills(s) 1, Pharmacy: [facility], 152, cm, 07/14/23 9:26:00 EDT, Height/Length Dosing, 76.9, kg, 07/14/23 9:26:00 EDT, Weight Dosing metoprolol 50 mg ER Tab: 50 mg = 1 tab(s), Oral, Daily, # 90 tab(s), Refills(s) 1, Pharmacy: [facility], 152, cm, 07/14/23 9:26:00 EDT, Height/Length Dosing, 76.9, kg, 07/14/23 9:26:00 EDT, Weight Dosing Documented Medications Documented Aleve: Refills(s) 0 Multi Vitamin+: Refill(s) 0 alendronate 70 mg Tab: TAKE 1 TABLET BY MOUTH 30 MINUTES BEFORE first food once a week, Prophylaxis ropinirole: 0.5 mg, Oral, Refills(s) 0 Problem list: All Problems BMI 34.0-34.9,adult / SNOMED CT 834926596 / Confirmed Chest pain due to GERD / SNOMED CT 90783054 / Confirmed Chronic GERD / SNOMED CT 683632479 / Confirmed Duodenogastric bile reflux / SNOMED CT 24970885 / Confirmed Dysphagia / SNOMED CT 46633930 / Confirmed Epigastric pain / SNOMED CT 441266957 / Confirmed Gastritis / SNOMED CT 9895774 / Confirmed H/O: osteoarthritis / SNOMED CT 939722698 / Confirmed Hiatal hernia with gastroesophageal reflux / SNOMED CT 2218470645 / Confirmed HTN (hypertension) / SNOMED CT 8075912367 / Confirmed Osteoporosis / SNOMED CT 681701090 / Confirmed Regurgitation of stomach contents / SNOMED CT 898315766 / Confirmed Screening for malignant neoplasm of colon / SNOMED CT 761443773 / Confirmed Sigmoid diverticulosis / SNOMED CT 4929130563 / Confirmed Tendonitis / SNOMED CT 57731268 / Confirmed Unilateral primary osteoarthritis, right knee / SNOMED CT 8972504005 / Confirmed Vertigo / SNOMED CT 5215574639 / Confirmed Objective Vital Signs 09/22/2023 11:23 EST Peripheral Pulse Rate 60 bpm Respiratory Rate 14 br/min Systolic Blood Pressure 138 mmHg Diastolic Blood Pressure 88 mmHg Mean Arterial Pressure, Cuff 105 mmHg General: No acute distress. Alert and oriented x 3. Well-nourished. Well-developed. Musculoskeletal: Arises slowly from a seated position. Tender in the right sciatic notch region. There is no tenderness palpation throughout the lumbar spine. Minimal pain on flexion lumbar spine. There is pain that radiates down the posterior aspect of the right leg with extension of the lumbar spine. No pain with range of motion of the right hip and knee. No tenderness palpation over the greater trochanter on the right. Neuro: Positive straight leg raise on the right at 10 degrees. Negative straight leg raise on the left. Ankle clonus is absent bilaterally. Absent Achilles reflex on the right. Results Review MRI results again were reviewed which demonstrates lateral recess stenosis and foraminal stenosis at L5-S1 due to a grade 2 spondylolisthesis secondary to pars defect. Impression and Plan 67-year-old female with severe right low back and leg pain consistent with lumbosacral radiculopathy that has returned after she (more content not included)... [facility] Comment on above: Result Comment: Elec tronically Signed By: Valeri CANTRELL, Demar Leal\.br\Date and Time Signed: 09/22/23 11:54 EST Office/Clinic Note-Physician on 09-22-2023 Office/Clinic Note-Physician [id number]#1.00TIFF [facility] Patient Correspondenceon Patient Correspondence [id number]#1.00TIFF [facility] Patient Correspondence [id number]#1.00TIFF [facility] Patient History Officeon Patient History Office [id number]#1.00TIFF [facility] Physician Orderon 07-28-2023 Physician Order [id number]#1.00TIFF [facility] Consenton 07-24-2023 Consent [id number]#1.00TIFF [facility] Patient Eval Forms Officeon 07-24-2023 Patient Eval Forms Office [id number]#1.00TIFF [facility] Patient Eval Forms Office [id number]#1.00TIFF [facility] Consent for Treatmenton Consent for Treatment [id number]#1.00TIFF [facility] Physician Orderon 07-16-2023 Physician Order [id number]#1.00CD:1 27 [facility] Heart and Vascular Office/Cl inic Noteon 07-15-2023 Heart and Vascular Office/Clinic Note Chief Complaint 2 week blood pressure check History of Present Illness Chloe Agarwal is a 67-year-old female patient of Dr. Vaughn here today for blood pressure check. She was recently uptitrated her losartan to a total of 100 a day as well as uptitrated dose of metoprolol succinate. She brings a blood pressure log and overall blood pressures fairly stable. She does have low readings in the mornings and higher at night. She is making attempts to lose weight with diet and exercise. She has been referred for sleep study, however, she has not set this up. Reluctant to do so. Currently looking for a new primary care Review of Systems PHQ Score Initial Depression Screen Score: 0 Constitutional: no fever, no chills, no weakness, no fatigue Respiratory: no shortness of breath, no cough, no orthopnea, no wheezing Cardiovascular: no chest pain, no palpitations, no edema Neuro:no dizziness no light headed no syncope Additional ROS info: Except as noted in the above Review of Systems and in the History of Present Illness all other systems have been reviewed and are negative or noncontributory. Physical Exam Vitals & Measurements HR: 67(Peripheral) BP: 146/78 SpO2: 98% HT: 60 in HT: 152 cm WT: 76.9 kg WT: 169.18 lb BMI: 33.28 General: alert, no acute distress Neck: Supple, noJVD nocarotid bruit Cardiovascular: regular rate and rhythm, no murmur normal peripheral perfusion Respiratory: Lungs CTA, respirations non labored Extremities:no edema Neurological: oriented x 4, LOC appropriate for age, sensation equal & normal bilaterally, speech normal Skin: Warm, dry, intact- no rash or concerning lesions Assessment/Plan 1. Encounter for blood pressure examination (Z01.30: Encounter for examination of blood pressure without abnormal findings) Blood pressure is fairly well controlled, low in am and high in evenings. She will take Losartan 100 mg at bedtime and metoprolol succinate in am Keep BP log We discussed sleep study and weight loss. 2. Obstructive sleep apnea of adult (G47.33: Obstructive sleep apnea (adult) (pediatric)) STOP BANG Questionnaire Snoring- Do you snore loudly (loud enough to be heard through closed doors or your bed-partner elbows you for snoring?) Yes Tired- Do you often feel TIRED, FATIGUED, or SLEEPY during the daytime (such as falling asleep during driving or talking to someone)?Yes Observed- Has anyone observed you STOP BREATHING or CHOKING/GASPING during your sleep?Yes Pressure- Do you have or are you being treated for high blood pressure?Yes BMI- more than 35?NO Age- Older than 50?Yes Neck size large? (Measures around [place]- male 17 in or 43 cm+, female 16 in/41 cm+)No Gender- Male?No CHUY - High Risk : Yes to 5 questions or Yes to 2 or more of 4 STOP questions Recommend baseline study to rule out CHUY Orders: losartan, 100 mg = 1 tab(s), Oral, Bedtime, # 90 tab(s), Refills(s) 1, Pharmacy: [facility], 152, cm, 07/14/23 9:26:00 EDT, Height/Length Dosing, 76.9, kg, 07/14/23 9:26:00 EDT, Weight Dosing metoprolol, 25 mg = 1 tab(s), Oral, Daily, # 90 tab(s), Refills(s) 3, Pharmacy: [facility], 152, cm, 11/05/22 11:35:00 EST, Height/Length Dosing, 76, kg, 11/05/22 11:35:00 EST, Weight Dosing metoprolol, 50 mg = 1 tab(s), Oral, Daily, X 30 day(s), # 30 tab(s), Refills(s) 5, Pharmacy: [facility], 152, cm, 06/30/23 15:07:00 EDT, Height/Length Dosing, 77.5, kg, 06/30/23 15:07:00 EDT, Weight Dosing metoprolol, 50 mg = 1 tab(s), Oral, Daily, # 90 tab(s), Refills(s) 1, Pharmacy: [facility], 152, cm, 07/14/23 9:26:00 EDT, Height/Length Dosing, 76.9, kg, 07/14/23 9:26:00 EDT, Weight Dosing Portions of this record may have been created with voice recognition artificial intelligence software, specifically [employer], [employer] to transform cities and or [employer]. Substitutions may have occurred due to the inherent limitations of voice recognition and artificial intelligence software. Follow-up No qualifying data available Problem List/Past Medical History Ongoing BMI 34.0-34.9,adult Chest pain due to GERD Chronic GERD Duodenogastric bile reflux Dysphagia Epigastric pain Gastritis H/O: osteoarthritis Hiatal hernia with gastroesophageal reflux HTN (hypertension) Osteoporosis Regurgitation of stomach contents Screening for malignant neoplasm of colon Sigmoid diverticulosis Unilateral primary osteoarthritis, right knee Vertigo Historical Appendicitis Cough GERD - Gastro-esophageal reflux disease Sinus drainage Procedure/Surgical History Injection of steroid into hip joint (04/20/2023), Colonoscopy (04/03/2023), Colonoscopy (04/03/2023), EGD - Esophagogastroduodenoscop y (04/03/2023), Esophagogastroduodenoscop y (04/03/2023), Injection of nerve root of lumbar spine using fluoroscopic guidance (03/17/2023), Cardiac catheterization procedure (09/17/2021), EGD - Esophagogastroduodenoscop y (04/01/2021), (more content not included)... [facility] Comment on above: Result Comment: Elec tronically Signed By: Vicky LAST CNP\.elmo\Date and Time Signed: 07/15/23 12:36 EDT Physician Orderon 07-15-2023 Physician Order [id number]#1.00CD:1 27 [facility] Consent for Treatmenton 06-20 Consent for Treatment [id number]#1.00CD:12 7 [facility] Physician Orderon 07-14-2023 Physician Order [id number]#1.00CD:1 27 [facility] Consent for Treatmenton 06-19 Consent for Treatment [id number]#1.00CD:12 7 [facility] Heart and Vascular Office/Cl inic Noteon 06-30-2023 Heart and Vascular Office/Clinic Note History of Present Illness Patient is a very pleasant 67-year-old hypertensive female, nondiabetic, non-smoker, referred to our office after she went to the emergency room on 09/02/2021 with abdominal pain radiating into her back. She reportedly had a stress test, echocardiogram and Holter monitor at [facility] prior to her ER visit on 09/02/2021. Troponins were negative x1, and she was assigned a heart score of 4 and discharged home. In addition the patient apparently had a syncopal episode several weeks prior to her presentation, but cannot recall whether she had any chest pain prior to her syncope.. Her echocardiogram done at [facility] on 08/20/2021 which showed left ventricular systolic function at the lower limits of normal with an LVEF of 50%, normal right-sided pressure. Her stress test dated 08/20/2021 was nondiagnostic based on abnormal T waves in lead III multiple PVCs including couplets and triplets as well as multifocal PVCs. In addition the patient had a hypertensive blood pressure response to exercise, no imaging was performed. Test was terminated due to shortness of breath and dizziness. Patient cannot recall whether she had any chest pain. This then gave way to a Lexiscan/MPI which took place at an outside facility at [facility] on 09/03/2021 which was read as normal. In addition the patient had an EGD in March 2021 which showed hiatal hernia, and antral gastritis. Patient was placed on PPI therapy. Patient states that she has reflux symptoms on a daily basis, and every 4 months has exacerbations of her chest pain. She describes her chest pain is midsternal, severe burning, which produces saliva, no associated nausea, vomiting, diaphoresis and apparently goes up into her throat. Patient also has constant dull gnawing ache in her midepigastrium, and is slated to undergo a gallbladder ultrasound soon. Patient appears to be a very anxious lady. In addition she has a brother in [place] who apparently has coronary disease the specific of which are unknown. To better evaluate the patient's symptoms, I recommend he undergo a cardiac catheterization which took place on 09/17/2021 with the following results: CONCLUSIONS: 1. Normal coronary arteries. 2. Low normal left ventricular function with a left ventricular ejection fraction of 50-55%. 3. Normal left ventricular end-diastolic pressure. 4. Systemic hypertension. [1] Subsequent echocardiogram dated 10/27/2022 is as below: (10/27/2022 09:52 EST Echo Transthoracic Complete) Interpretation Summary Ejection Fraction = 55-60%. The left ventricular wall motion is normal. Grade I diastolic dysfunction, (abnormal relaxation pattern). Trace aortic regurgitation. There is Trace mitral regurgitation. There is trace tricuspid regurgitation. Right ventricular systolic pressure is 35 mmHg. [1] Patient was recently seen in the emergency room on 06/12/2023 with main complaint of dizziness and very high blood pressure with a blood pressure of 173/106. She was then referred here for further evaluation. Patient is now here in follow-up. She is asymptomatic. She is doing quite well. She is tolerating his medicines well. Patient was found to have gallstones, by ultrasound, and needs HIDA scan in the near future. She is going to see a GI doctor Dr. Zambrano. Patient went to Dr. Marquez of GI and was not happy with their visit with him. Patient has had a dry hacking cough ever since starting lisinopril. We switch her to losartan and this is better. Her blood pressure still not well controlled. In addition the patient complains of reflux type symptoms and has a known hiatal hernia. She denies any exertional chest pain or anginal symptoms. Her Toprol ER was increased to 50 mg daily by her PCP. Patient has excessive snoring at night but has never had a sleep study. She is under a significant amount of psychosocial stress with her bipolar son. In our office today his blood pressure is 174/97 and pulse is 80 and regular. Physical exam is as below. Patient has no lipid profile. EKG dated 09/01/2021 shows normal sinus rhythm, normal axis, PVC, no evidence of previous myocardial infarction. Assessment/Plan 1. Hypertension: Her blood pressures not well controlled although she is on a significant mount of psychosocial stress with her bipolar son as well as perhaps has undiagnosed and untreated obstructive sleep apnea. Recommend that we increase her losartan to 50 mg twice a day and continue her metoprolol at 50 mg daily. In addition she will undergo a full sleep study to determine if she has undiagnosed obstructive sleep apnea which may be contributing to her anxiety and hypertension. She will return in 2 weeks time for blood pressure check. Have requested that she check her blood pressure twice a day for the next 2 weeks. If her blood pressure still elevated, we can add hydrochlorothiazide 12.5 mg p.o. daily. 2. Return office with Dr. Douglas in 2 months. Follow-up No qualifying data available Problem List/Past Medical Hi (more content not included)... Normal [facility] Comment on above: Result Comment: Elec tronically Signed By: MISAEL CANTRELL, Landon Mckinley\.elmo\Date and Time Signed: 06/30/23 15:29 EDT Physician Orderon 06-30-2023 Physician Order [id number]#1.00CD:12 7 Normal [facility] Outside Records Officeon Outside Records Office [id number]#1.00CD:1 27 [facility] Consent for Treatmenton 05-20 Consent for Treatment [id number]#1.00CD:12 7 Normal [facility] Consultation Noteon 06-08-20 Consultation Note Patient: CHLOE AGARWAL Age: 67 years Sex: Female : 1955 Associated Diagnoses: None Author: Vicky Castillo PA-C Subjective Chief complaint 06/08/2023 8:21 EDT Lower back pain . Patient is a 67-year-old female. She has a past medical history significant for lumbar neuritis, lumbar degenerative disc disease, and trochanteric bursitis. She presents today for follow-up after starting gabapentin. Unfortunate, she noticed a lot of increased blood pressure and dizziness with the gabapentin so she stopped it just 48 hours ago. She states that she is still noticing some of the symptoms that she was experiencing when she went to the ER?nausea, diarrhea, dizziness, blurred vision, and high blood pressure but she states that it is getting better. In the ED her medications for her blood pressure were changed and she states that she was told she needs to give them time. At this time she has come off the gabapentin. She is having some cramping in her legs mainly at night that she rates a 6/10 but at this time, she wants to get her blood pressure under control before anything else. Previously she underwent right-sided trochanteric bursa injection done on 04/20/2023 that has given her 50% relief. Prior to that she underwent bilateral L5-S1 transforaminal epidural steroid injection done on March 17, 2023 that gave her 75% relief. She still feels that they were both beneficial and she may need to pursue another injection in the future but at this time, she wants to give herself some time to get her blood pressure under control. Health Status Allergies: Allergic Reactions (Selected) Severity Not Documented Sulfa drugs- Unknown. Nonallergic Reactions (Selected) Severity Not Documented Lisinopril- Coughing., Allergies (2) Active Reaction lisinopril Coughing sulfa drugs unknown Current medications: (Selected) Prescriptions Prescribed Adult Blood Pressure Monitor with Large Bicep Cuff: Adult Blood Pressure Monitor with Large Bicep Cuff, See Instructions, 1 EA, 0, Check BP Daily Dx I10, Supply Carafate 1 gram Tab: 1 gm = 1 tab(s), Oral, QID, # 120 tab(s), Refills(s) 3, Pharmacy: [facility], 152, cm, 04/03/23 9:20:00 EDT, Height/Length Dosing, 80, kg, 04/03/23 9:20:00 EDT, Weight Dosing Protonix 40 mg Tab-DR: 40 mg = 1 tab(s), Oral, BID, # 120 tab(s), Refills(s) 0, Pharmacy: [facility], 152.4, cm, 04/01/21 7:20:00 EDT, Height/Length Dosing, 85.5, kg, 04/01/21 7:20:00 EDT, Weight Dosing gabapentin 300 mg Cap: 300 mg = 1 cap(s), Oral, BID, start with once a day for a week. If doing ok can increase to BID, # 60 cap(s), Refills(s) 0, Pharmacy: [facility], 152, cm, 05/04/23 8:55:00 EDT, Height/Length Dosing, 72.6, kg, 05/04/23 8:55:00 EDT, Shaheen... losartan 50 mg Tab: 50 mg = 1 tab(s), Oral, Daily, X 30 day(s), # 30 tab(s), Refills(s) 0, Pharmacy: [facility], 152.4, cm, 06/05/23 8:54:00 EDT, Height/Length Dosing, 73, kg, 06/05/23 8:54:00 EDT, Weight Dosing metoprolol 25 mg ER Tab: 25 mg = 1 tab(s), Oral, Daily, # 90 tab(s), Refills(s) 3, Pharmacy: [facility], 152, cm, 11/05/22 11:35:00 EST, Height/Length Dosing, 76, kg, 11/05/22 11:35:00 EST, Weight Dosing Documented Medications Documented alendronate 70 mg Tab: TAKE 1 TABLET BY MOUTH 30 MINUTES BEFORE first food once a week, Prophylaxis Problem list: All Problems Chronic GERD / SNOMED CT 546178043 / Confirmed Unilateral primary osteoarthritis, right knee / SNOMED CT 0479982800 / Confirmed Gastritis / SNOMED CT 7706125 / Confirmed Vertigo / SNOMED CT 4111845951 / Confirmed BMI 34.0-34.9,adult / SNOMED CT 654234979 / Confirmed Regurgitation of stomach contents / SNOMED CT 885917645 / Confirmed Osteoporosis / SNOMED CT 988152558 / Confirmed HTN (hypertension) / SNOMED CT 0801929611 / Confirmed Dysphagia / SNOMED CT 31741176 / Confirmed Epigastric pain / SNOMED CT 642741304 / Confirmed Chest pain due to GERD / SNOMED CT 01996701 / Confirmed Screening for malignant neoplasm of colon / SNOMED CT 572985698 / Confirmed H/O: osteoarthritis / SNOMED CT 334827363 / Confirmed Hiatal hernia with gastroesophageal reflux / SNOMED CT 3902074647 / Confirmed Duodenogastric bile reflux / SNOMED CT 94967722 / Confirmed Sigmoid diverticulosis / SNOMED CT 1064235425 / Confirmed Resolved: GERD - Gastro-esophageal reflux disease / SNOMED CT 8425578463 Resolved: Appendicitis / SNOMED CT 845686916 Resolved: Cough / SNOMED CT 82831594 Resolved: Sinus drainage / SNOMED CT 711228169 Canceled: GERD with apnea / SNOMED CT 9739277791 Objective Vital Signs 06/08/2023 8:21 EDT Peripheral Pulse Rate 62 bpm Respiratory Rate 16 br/min Systolic Blood Pressure 156 mmHg HI Diastolic Blood Pressure 94 mmHg HI Mean Arterial Pressure, Cuff In Error mmHg (In Error) General: Alert and oriented, No acute distress. Overweight Eye: Normal conjunctiva. HENT: Normocephalic, Normal hea (more content not included)... Normal [facility] Comment on above: Result Comment: Elec tronically Signed By: Vicky Castillo PA-C\.br\Date and Time Signed: 06/08/23 09:02 EDT\.br\Electronically Co-Signed By: Valeri CANTRELL, Demar Leal\.br\Date and Time Co-Signed: 06/23/23 07:26 EDT Office/Clinic Note-Physician on 06-08-2023 Office/Clinic Note-Physician [id number]#1.00CD:12 7 Normal [facility] Patient Correspondenceon Patient Correspondence [id number]#1.00CD:12 7 Normal [facility] Patient Correspondence [id number]#1.00CD:12 7 Normal [facility] Patient History Officeon Patient History Office [id number]#1.00CD:12 7 Normal [facility] Auto Diffon 06-05-2023 Basophils/100 WBC (Bld) 0.8 % Normal 0.0-2.0 [facility] Comment on above: Order Comment: Order Added by Discern Expert. Performed By: #### 2 183851, 34758837, 6813966, 84361420, 0754551 ####[facility] [address] [place] [address] Basophils/Leukocytes Auto (Bld) [Pure # fraction] 0.1 E9/L Normal 0.0-0.2 [facility] Comment on above: Order Comment: Order Added by Discern Expert. Performed By: #### 2 994385, 67107488, 6229937, 46493588, 5364495 ####[facility] [address] [place] [address] Eosinophils/100 WBC (Bld) 3.4 % Normal 0.0-8.0 [facility] Comment on above: Order Comment: Order Added by Discern Expert. Performed By: #### 2 246799, 16447397, 4913541, 95402150, 9503046 ####[facility] [address] [place] [address] Eosinophils/Leukocytes Auto (Bld) [Pure # fraction] 0.3 E9/L Normal 0.0-0.5 [facility] Comment on above: Order Comment: Order Added by Discern Expert. Performed By: #### 2 870679, 80994851, 1691303, 57719434, 5105763 ####[facility] [address] [place] [address] Lymphocytes/100 WBC (Bld) 20.2 % Normal 14.0-50.0 [facility] Comment on above: Order Comment: Order Added by Linda Expert. Performed By: #### 2 119713, 93034625, 7510080, 68332268, 5644784 ####[facility] [address] [place] [address] Lymphocytes/Leukocytes Auto (Bld) [Pure # fraction] 1.5 E9/L Normal 1.0-4.0 [facility] Comment on above: Order Comment: Order Added by Linda Expert. Performed By: #### 2 299520, 95716745, 5860912, 74290289, 7095218 ####[address] [address] Monocytes/100 WBC (Bld) 7.8 % Normal 4.0-14.0 [facility] Comment on above: Order Comment: Order Added by Linda Expert. Performed By: #### 2 437058, 23090931, 1326553, 17294124, 9786984 ####[address] [address] Monocytes/Leukocytes Auto (Bld) [Pure # fraction] 0.6 E9/L Normal 0.2-1.0 [facility] Comment on above: Order Comment: Order Added by Linda Expert. Performed By: #### 2 750415, 64622131, 4953976, 84206562, 8380193 ####[address] [address] Neutrophils/100 WBC (Bld) 67.8 % Normal 36.0-75.0 [facility] Comment on above: Order Comment: Order Added by Lnida Expert. Performed By: #### 2 364396, 01102413, 6679215, 58752477, 5827266 ####[address] [address] [place] [address] Neutrophils/Leukocytes Auto (Bld) [Pure # fraction] 5.1 E9/L Normal 2.0-7.5 [facility] Comment on above: Order Comment: Order Added by Discern Expert. Performed By: #### 2 245968, 05601624, 8090913, 55639307, 3098808 ####[facility] [address] [place] [address] BMPon 06-05-2023 Creatinine [Mass/Vol] 0.7 mg/dL Normal 0.5-1.3 [facility] Comment on above: Performed By: #### 2 709811, 89084476, 1852938, 12822119, 3953382 ####[facility] [address] [place] [address] Urea nitrogen [Mass/Vol] 19 mg/dL Normal 5-21 [facility] Comment on above: Performed By: #### 2 051939, 99242003, 4040571, 59033696, 5436847 ####[facility] [address] [place] [address] Urea nitrogen/Creatinine [Mass ratio] 27 No Units High 10-20 [facility] Comment on above: Performed By: #### 2 355686, 67681181, 7001694, 63742994, 0740211 ####[facility] [address] [place] [address] Anion gap [Moles/Vol] 12 mmol/L Normal 6-16 [facility] Comment on above: Performed By: #### 2 297511, 12820865, 9584833, 68281674, 7636639 ####[facility] [address] [place] [address] Calcium [Mass/Vol] 9.5 mg/dL Normal 8.9-11.1 [facility] Comment on above: Performed By: #### 2 914894, 91493066, 7310707, 73518552, 3264665 ####[facility] [address] [place] [address] Chloride [Moles/Vol] 107 mmol/L Normal 101-111 [facility] Comment on above: Performed By: #### 2 193118, 01491004, 2062718, 67510175, 8092053 ####[facility] [address] [place] [address] CO2 [Moles/Vol] 26 mmol/L Normal 21-31 [facility] Comment on above: Performed By: #### 2 819529, 65088601, 4037547, 29498738, 5439683 ####[facility] [address] [place] [address] Glucose [Mass/Vol] 100 mg/dL Normal 55-199 [facility] Comment on above: Result Comment: If t his glucose result represents a fasting glucose, interpretation should refer to the following reference range: 55-99 mg/dL Performed By: #### 2 900740, 46711099, 4252134, 20946480, 4413636 ####[facility] [address] [place] [address] Potassium [Moles/Vol] 3.6 mmol/L Normal 3.5-5.3 [facility] Comment on above: Performed By: #### 2 924843, 08813740, 4485181, 04546701, 0796344 ####[facility] [address] [place] [address] Sodium [Moles/Vol] 141 mmol/L Normal 135-145 [facility] Comment on above: Performed By: #### 2 088047, 50487727, 5485127, 38371585, 1051801 ####[facility] [address] [place] [address] CBC w/ Auto Diffon 3 Erythrocyte distribution width (RBC) [Ratio] 13.2 % Normal 10.9-14.2 [facility] Comment on above: Performed By: #### 2 693978, 05708678, 1293178, 68156705, 1109830 ####[facility] [address] [place] [address] Hematocrit (Bld) [Volume fraction] 39.7 % Normal 34.0-46.0 [facility] Comment on above: Performed By: #### 2 724194, 55018515, 5198599, 29854161, 6228686 ####[address] [place] [address] Hemoglobin (Bld) [Mass/Vol] 13.6 g/dL Normal 12.0-16.0 [facility] Comment on above: Performed By: #### 2 658397, 78263236, 2819710, 53203969, 7743415 ####[address] [address] MCH (RBC) [Entitic mass] 29.9 pg Normal 27.0-34.0 [facility] Comment on above: Performed By: #### 2 744681, 57298733, 0544881, 97100456, 2464690 ####[facility] [address] [place] [address] MCHC (RBC) [Mass/Vol] 34.2 g/dL Normal 31.4-36.0 [facility] Comment on above: Performed By: #### 2 158601, 18584286, 4748713, 97180594, 5270753 ####[address] [address] MCV (RBC) [Entitic vol] 87.5 fL Normal 80.0-100.0 [facility] Comment on above: Performed By: #### 2 608703, 64330599, 6249195, 96348919, 7458805 ####[address] [place] [address] Platelet mean volume (Bld) [Entitic vol] 8.2 fL Normal 6.4-10.8 [facility] Comment on above: Performed By: #### 2 794365, 66739331, 4089822, 77404566, 1094143 ####[facility] [address] [place] [address] Platelets (Bld) [#/Vol] 239.0 E9/L Normal 150. 0-500. 0 [facility] Comment on above: Performed By: #### 2 [id number] ####[facility] [address] [place] [address] RBC (Bld) [#/Vol] 4.5 E12/L Normal 4.3-5.9 [facility] Comment on above: Performed By: #### 2 [id number] ####[facility] [address] [place] [address] WBC corrected for nucl RBC Auto (Bld) [#/Vol] 7.5 E9/L Normal 4.0-11.0 [facility] Comment on above: Performed By: #### 2 [id number] ####[facility] [address] [place] [address] CHEMISTRYOrdered By: SYSTEM SYSTEM on 06-05-2023 Anion gap [Moles/Vol] 12 mmol/L Normal 6 - 16 mEq/L [facility] Remisol Calcium [Mass/Vol] 9.5 mg/dL Normal 8.9 - 11. 1 mg/dL FT Remisol Chloride [Moles/Vol] 107 mmol/L Normal 101 - 1 11 mmol/L [facility] Remisol CO2 [Moles/Vol] 26 mmol/L Normal 21 - 31 mmol/L [facility] Remisol Creatinine [Mass/Vol] 0.7 mg/dL Normal 0.5 - 1.3 mg/dL [facility] Remisol GFR/1.73 sq M.predicted among non-blacks MDRD (S/P/Bld) [Vol rate/Area] 96 mL/min/1.73 m2 Normal >=59mL/min /1.73 m2 [facility] Chem S Glucose [Mass/Vol] 100 mg/dL Normal 55 - 199 mg/dL [facility] Remisol Potassium [Moles/Vol] 3.6 mmol/L Normal 3.5 - 5.3 mmol/L [facility] Remisol Sodium [Moles/Vol] 141 mmol/L Normal 135 - 145 mmol/L [facility] Remisol Troponin I.cardiac [Mass/Vol] 8.30 pg/mL Low 10.10 - 27.10 pg/mL [facility] Remisol Urea nitrogen [Mass/Vol] 19 mg/dL Normal 5 - 21 mg/dL [facility] Remisol Urea nitrogen/Creatinine [Mass ratio] 27 mg/mg High 10 - 20 [facility] Remisol CHEMISTRYOrdered By: Lab ROP User on 06-05-2023 Glucose [Mass/Vol] 109 mg/dL High 55 - 99 mg/dL [facility] POC Subsection Comment on above: Result Comment: Kacey wiley Meter POC Device SN [id number] Invalid Interpretation Code [facility] POC Subsection POC User ID [id number] Invalid Interpretation Code [facility] POC Subsection POC Username VARGAS, SHARITA Invalid Interpretation Code [facility] POC Subsection CT Head or Brain w/o Contras ton 06-05-2023 CT Head or Brain w/o Contrast Exam Date/Time: 06/05/2023 09:29 EDT Reason for Exam: Delirium;Other (please specify) Report IMPRESSION: NEGATIVE NONCONTRAST HEAD CT. EXAM: CT Head or Brain w/o Contrast DATE: 06/05/2023 CLINICAL HISTORY: Delirium. COMPARISON: None available. TECHNIQUE: Routine. All CT scans at this facility use dose modulation, iterative reconstruction, and/or weight based dosing when appropriate to reduce radiation dose to as low as reasonably achievable. FINDINGS: There is no intracranial hemorrhage, mass effect, midline shift, extra-axial collection, evidence of hydrocephalus, skull fracture, or a recent ischemic infarct identified. There is no significant atrophy, or white matter changes, for age. The mastoid air cells and visualized paranasal sinuses are essentially clear. Ordering Provider: Prasad Avalos FINAL REPORT Dictated: 06/05/2023 9:34 am Bo Gaming MD Signed (Electronic Signature): 06/05/2023 9:34 am Signed by: Bo Gaming MD Transcribed by: SCOTTY Technologist: TIFFANY [facility] Capillary Glucose POCon 05-19 Glucose [Mass/Vol] 109 mg/dL High 55-99 [facility] Comment on above: Result Comment: Kacey jama Meter Performed By: #### 2 [id number] #### [facility] [address] [place] [address] Consent for Treatmenton 05-19 Consent for Treatment [id number]:12 7 Normal [facility] Discharge Instructionson Discharge Instructions [id number]#[id number]:1 27 Normal [facility] ED Clinical Summaryon 2022 ED Clinical Summary (Inserted Image. Kandace ble to display) [address] [address] ED Clinical Summary Person Information Name: CHLOE AGARWAL [facility] Age: 67 Years : 1955 Sex: Female Language: Maltese PCP: Yarelis Mcghee MD Marital Status: Visit Id: Visit Reason: Medical screening exam; SENT [facility] HIGH BP AND DIZZINESS Speciality: Acuity: 3 Enc Type: Emergency Med Service: Emergency Arrival: 06/05/2023 08:39:11 Discharge: 06/05/2023 10:47:01 LOS: 000 02:08 Checkin: 06/05/2023 08:39:11 Checkout: 06/05/2023 10:47:01 Dispo Type: Home (Routine DC) EVENTS: Event Name Event Status Request Date/Time Start Date/Time Complete Date/Time Arrive Complete 06/05/2023 08:39:11 06/05/2023 08:39:11 06/05/2023 08:39:11 Document Home Meds Request 06/05/2023 08:39:11 Triage Complete 06/05/2023 08:39:11 06/05/2023 08:54:04 06/05/2023 08:54:04 Bed Assign Complete 06/05/2023 08:42:46 06/05/2023 08:42:46 06/05/2023 08:42:46 Dr Exam Complete 06/05/2023 08:42:46 06/05/2023 08:43:14 06/05/2023 08:43:14 RN Exam Complete 06/05/2023 08:42:46 06/05/2023 08:59:17 06/05/2023 08:59:17 Registration Complete 06/05/2023 08:43:14 06/05/2023 08:43:19 06/05/2023 08:43:19 Reg Complete Request 06/05/2023 08:43:19 Reg Bed Request Complete 06/05/2023 08:43:19 06/05/2023 08:43:19 06/05/2023 08:43:19 EKG Complete 06/05/2023 08:48:48 06/05/2023 08:56:39 Meds Admin Complete 06/05/2023 08:53:44 06/05/2023 10:46:31 Pending Labs Request 06/05/2023 08:53:44 Lab Complete 06/05/2023 08:53:44 06/05/2023 10:17:43 X-Ray Complete 06/05/2023 08:53:44 06/05/2023 09:11:24 06/05/2023 09:13:59 CT Complete 06/05/2023 08:53:44 06/05/2023 09:07:05 06/05/2023 09:29:48 Pending Labs Complete 06/05/2023 08:59:56 06/05/2023 08:59:56 06/05/2023 08:59:57 Wet Read Complete 06/05/2023 09:13:59 06/05/2023 09:45:53 06/05/2023 09:45:53 Pending Labs Complete 06/05/2023 09:51:23 06/05/2023 09:51:23 06/05/2023 10:17:44 Lab Complete 06/05/2023 09:51:23 06/05/2023 09:51:23 06/05/2023 10:17:44 Pending Labs Complete 06/05/2023 09:57:05 06/05/2023 09:57:05 06/05/2023 09:57:13 Lab Complete 06/05/2023 09:57:05 06/05/2023 09:57:05 06/05/2023 09:57:13 Pending Labs Complete 06/05/2023 10:02:14 06/05/2023 10:02:14 06/05/2023 10:02:15 Discharge Complete 06/05/2023 10:41:14 06/05/2023 10:47:06 06/05/2023 10:47:06 Transfer Complete 06/05/2023 10:47:06 06/05/2023 10:47:06 06/05/2023 10:47:06 ADDRESS: [facility] [id number] PHYS DOC NOTES: MEDICAL INFORMATION: Prescriptions Given: Medications to Continue Taking That Have Changed [id number], [address] [place], [place] [id number], [phone] START: losartan (losartan 50 mg Tab) 1 Tablets By Mouth every day for 30 Days. Refills: 0. Other Medications START: losartan (Cozaar 25 mg Tab) 1 Tablets By Mouth every day for 90 Days. stopping Lisinopril Starting Cozaar. Refills: 3. Medications to Continue with No Changes Other Medications alendronate (alendronate 70 mg Tab) TAKE 1 TABLET BY MOUTH 30 MINUTES BEFORE first food once a week. gabapentin (gabapentin 300 mg Cap) 1 Capsules By Mouth 2 times a day. start with once a day for a week. If doing ok can increase to BID. Refills: 0. metoprolol (metoprolol 25 mg ER Tab) 1 Tablets By Mouth every day. Refills: 3. Misc Prescription (Adult Blood Pressure Monitor with Large Bicep Cuff) Check BP Daily Dx I10. Refills: 0. pantoprazole (Protonix 40 mg Tab-DR) 1 Tablets By Mouth 2 times a day. Refills: 0. sucralfate (Carafate 1 gram Tab) 1 Tablets By Mouth 4 times a day. Refills: 3. PATIENT EDUCATION INFORMATION: Instructions: Follow up: With: Address: When: Yarelis Mcghee [address] [place] [address], [facility] [place] [address] Business (1) In 3 days DIAGNOSIS: Dizziness; Hypertension Normal [facility] ED Note-Physicianon 06-05-20 ED Note-Physician Basic Information Time Seen: Prasad Avalos DO 06/05/2023 08:43 Chief Complaint pt to ed with c/o of high blood pressure, states she has been checking her blood pressure at home and its been increaasing, states she has been having episodes of feeling flush also History of Present Illness 67 female presents with high blood pressure dizziness. Patient states over the last 1 to 2 days she has noticed that her blood pressure continues to climb and she is having dizziness with this and feeling flushed. She denies any chest pain shortness of breath cough fevers abdominal pain nausea vomiting diarrhea dysuria numbness or weakness into the arms or legs no changes to speech or vision. Patient states that she spoke to the office of her clutch rebuilder was sent to the emergency department. She does state that she takes metoprolol 25 mg as well as losartan 25 mg she took both these medications this morning. She cannot identify anything that may be causing her blood pressure to go up she is specifically denying any stimulants but does state that she is under a lot of stress. She denies any history of CAD no chest pain with this. No other aggravating or relieving factors no other associated symptoms no other prior treatments or complaints. Family: Reviewed and noncontributory Social: lives at home Review of systems negative unless otherwise specified in the HPI. Physical Exam Vitals & Measurements T: 36.7 ?C(Oral) HR: 81(Peripheral) RR: 20 BP: 173/106 SpO2: 97% HT: 152.4 cm WT: 73 kg BMI: 31.43 General: The patient appears well and in no apparent distress. Patient is resting comfortably on cart. Skin: Warm, dry, no pallor noted. Head: Normocephalic, atraumatic Neck: No JVD Eye: PERRLA, EOMI ENT: Moist mucus membranes Cardiovascular: Regular rate normal peripheral perfusion Respiratory: No respiratory distress no accessory muscle use no obvious audible wheezing Chest Wall: no deformity Musculoskeletal: normal ROM, no deformity, no swelling GI: Soft no obvious distention. No rebound or rigidity. No guarding. No tenderness. Neurological: A&O moves all extremities equal strength and symmetry Psychiatric: Cooperative and appropriate Medical Decision Making MEDICAL DECISION MAKING Number and Complexity of Problems Differential Diagnosis: MDM Data External documents reviewed: My EKG interpretation: in chart if applicable My CT interpretation: in chart if applicable My X-ray interpretation: in chart if applicable My Ultrasound interpretation: Decision rules/scores evaluated: Discussed with: Treatment and Disposition ED Course: Work-up in the ER has been reviewed and noted. CT read by the radiologist as no acute pathology. Labs are benign. Patient was treated here with 25 mg of losartan in addition to 25 mg she is earlier today. Her blood pressure on repeat exam is much improved. Given that she has been consistently running high we will increase her dose of losartan from 25 mg to 50 mg daily and she is provided this prescription. This is to be in addition to her metoprolol 25 mg and she is to keep a journal daily and follow-up with Dr. Douglas who has been managing her pressure in the outpatient setting. She is comfortable with this plan will be discharged home. She is educated on worsening signs and symptoms and to return if any of these should occur. Shared decision making: Code status: Assessment/Plan Dizziness (R42: Dizziness and giddiness) Hypertension (I10: Essential (primary) hypertension) Orders: losartan, 50 mg = 1 tab(s), Oral, Daily, X 30 day(s), # 30 tab(s), Refills(s) 0, Pharmacy: [facility], 152.4, cm, 06/05/23 8:54:00 EDT, Height/Length Dosing, 73, kg, 06/05/23 8:54:00 EDT, Weight Dosing losartan, 25 mg = 0.5 tab(s), Tab, Oral, Once, Stop date 06/05/23 8:53:00 EDT, STAT, Start date 06/05/23 8:53:00 EDT, 06/05/23 8:53:00 EDT Sodium Chloride 0.9% intravenous solution 1,000 mL, 1,000 mL, IV, 20 mL/hr, STAT, Start date 06/05/23 8:52:00 EDT, 50 hour(s), Total volume (mL): 1,000 Automated Diff Basic Metabolic Panel Capillary Glucose POC CBC w/ Auto Diff CT Head or Brain w/o Contrast eGFR Extra Blue Tube Extra SST Tube Troponin 0 Hr. Troponin 3 Hr. Troponin 6 Hr. Troponin 9 Hr. XR Chest Single View Medications Administered Given losartan 50 mg Tab, 25 mg, Oral Disposition Plan Discharge Prescription List Prescriptions losartan 50 mg Tab, 50 mg= 1 tab(s), Oral, Daily Follow-up With When Contact Information Yarelis Mcghee In 3 days [address] [place] [address]- Business (1) Additional Instructions: Problem List/Past Medical History Ongoing BMI 34.0-34.9,adult Chest pain due to GERD Chronic GERD Duodenogastric bile reflux Dysphagia Epigastric pain Gastritis H/O: osteoarthritis Hiatal hernia with gastroesophageal reflux HTN (hypertension) Osteoporosis Regurgitation of stomach contents Screening for malignant ne (more content not included)... Normal [facility] Comment on above: Result Comment: Elec tronically Signed By: Prasad Avalos DO\.br\Date and Time Signed: 06/05/23 10:42 EDT ED Patient Education Noteon 06-05-2023 ED Patient Education Note Normal [facility] ED Patient Summaryon 023 ED Patient Summary (Inserted Image. Kandace ble to display) [address] [address] Patient Discharge Instructions Person Information Name: ANYCHLOE Arlen Age: 67 Years Arrival Date: 06/05/2023 08:39:11 Discharge Diagnosis: Dizziness; Hypertension Primary Care Physician: Yarelis Mcghee MD Provider Information Primary Provider: Prasad Avalos DO Advanced Hardwood Floor Finisher:None The exam and treatment you received in the Emergency Department were for an urgent problem and are not intended as complete care. It is important that you follow up with a doctor, nurse practitioner, or physician?s preschool teacher's assistant for ongoing care. If your symptoms become worse or you do not improve as expected and you are unable to reach your usual health care provider, you should return to the Emergency Department. We are available 24 hours a day. CHLOE AGARWAL has been given the following list of patient education materials, prescriptions and follow-up instructions: Follow-up Instructions: With: Address: When: Yarelis Hankinskarel [address] [facility], [facility] [place] [address] Business (1) In 3 days In the event that this physician does not participate in your insurance network, please consult with your insurance company to find a nearby participating provider. Patient Education Materials: A MESSAGE TO ALL PATIENTS REGARDING OPIOIDS PRESCRIPTION OPIOIDS: WHAT YOU NEED TO KNOW Prescription opioids can be used to help relieve ujbcxvcf-pc-vljlwc pain and are often prescribed following a surgery or injury, or for certain health conditions. These medications can be an important part of the treatment but also come with serious risks. It is important to work with your healthcare provider to make sure you are getting the safest, most effective care. WHAT ARE THE RISKS AND SIDE EFFECTS OF OPIOID USE? Prescription opioids carry serious risks of addiction and overdose, especially with prolonged use. An opioid overdose, often marked by slowed breathing, can cause sudden . The use of prescription opioids can have a number of side effects as well, even when taken as directed: ? Tolerance?meaning you might need to take more of the medication for the same pain relief ? Physical dependence?meaning you have symptoms of withdrawal when a medication is stopped ? Increased sensitivity to pain ? Constipation ? Nausea, vomiting, and dry mouth ? Sleepiness and dizziness ? Confusion ? Depression ? Low levels of testosterone that can result in lower sex drive, energy, and strength ? Itching and sweating RISKS ARE GREATER WITH: ? History of drug misuse, substance use disorder, or overdose ? Mental health conditions (such as depression or anxiety) ? Sleep apnea ? Older age (65 years and older) ? Avoid alcohol while taking prescription opioids. Also, unless specifically advised by your health care provider, medications to avoid include: ? Benzodiazepines (such as Xanax or Valium) ? Muscle relaxants (such as Soma or Flexeril) ? Hypnotics (such as Ambien or Lunesta) ? Other prescription opioids KNOW YOUR OPTIONS Talk to your health care provider about ways to manage your pain that don?t involve prescription opioids. Some of these options may actually work better and have fewer risks and side effects. Options may include: ? Pain relievers such as acetaminophen, ibuprofen, and naproxen ? Some medication that are also used for depression or seizures ? Physical therapy and exercise ? Cognitive behavioral therapy, a psychological, goal-directed approach, in which patients learn how to modify physical, behavioral, and emotional triggers of pain and stress. IF YOU ARE PRESCRIBED OPIOIDS FOR PAIN: ? Never take opioids in greater amounts or more often than prescribed. ? Follow up with your primary health care provider. o Work together to create a plan on how to manage your pain. o Talk about ways to help manage your pain that don?t involve prescription opioids. o Talk about any and all concerns and side effects. ? Help prevent misuse and abuse o Never sell or share prescription opioids. o Never use another person?s prescription opioids. ? Store prescription opioids in a secure place and out of reach of others (this may include visitors, children, friends, and family). ? Safely dispose of unused prescription opioids: Find your community drug take-back program or your pharmacy mail-back program, or flush them down the toilet, following guidance from the Food and Drug Administration (www.fda.gov/Drugs/Resour cesForYou). ? Visit www.cdc.gov/drugoverdose to learn about the risks of opioids abuse and overdose. ? If you believe you may be struggling with addiction, tell your health acute care nursing assistant and ask for guidance or call [facility]?S National Helpline at 3-205-552-CREN. o Source: US Department of Health and Human Service (more content not included)... Normal [facility] HEMATOLOGYOrdered By: SYSTEM SYSTEM on 06-05-2023 Basophils/100 WBC (Bld) 0.8 % Normal 0.0 - 2.0 % [facility] Basophils/Leukocytes Auto (Bld) [Pure # fraction] 0.1 E9/L Normal 0.0 - 0.2 E9/L [facility] Eosinophils/100 WBC (Bld) 3.4 % Normal 0.0 - 8.0 % [facility] Eosinophils/Leukocytes Auto (Bld) [Pure # fraction] 0.3 E9/L Normal 0.0 - 0.5 E9/L [facility] Lymphocytes/100 WBC (Bld) 20.2 % Normal 14.0 - 50.0 % [facility] Lymphocytes/Leukocytes Auto (Bld) [Pure # fraction] 1.5 E9/L Normal 1.0 - 4.0 E9/L [facility] Monocytes/100 WBC (Bld) 7.8 % Normal 4.0 - 14.0 % [facility] Monocytes/Leukocytes Auto (Bld) [Pure # fraction] 0.6 E9/L Normal 0.2 - 1.0 E9/L [facility] Neutrophils/100 WBC (Bld) 67.8 % Normal 36.0 - 75.0 % [facility] Neutrophils/Leukocytes Auto (Bld) [Pure # fraction] 5.1 E9/L Normal 2.0 - 7.5 E9/L [facility] HEMATOLOGYOrdered By: Jesus Rosado on 06-05-2023 Erythrocyte distribution width (RBC) [Ratio] 13.2 % Normal 10.9 - 14.2 % [facility] Hematocrit (Bld) [Volume fraction] 39.7 % Normal 34.0 - 46.0 % [facility] Hemoglobin (Bld) [Mass/Vol] 13.6 g/dL Normal 12.0 - 16.0 gm/dL [facility] MCH (RBC) [Entitic mass] 29.9 pg Normal 27. 0 - 34.0 pg [facility] MCHC (RBC) [Mass/Vol] 34.2 g/dL Normal 31.4 - 36.0 gm/dL [facility] MCV (RBC) [Entitic vol] 87.5 fL Normal 80.0 - 100.0 fL [facility] Platelet mean volume (Bld) [Entitic vol] 8.2 fL Normal 6.4 - 10.8 fL [facility] Platelets (Bld) [#/Vol] 239.0 E9/L Normal 150. 0 - 500.0 E9/L [facility] RBC (Bld) [#/Vol] 4.5 E12/L Normal 4.3 - 5.9 E12/L [facility] WBC corrected for nucl RBC Auto (Bld) [#/Vol] 7.5 E9/L Normal 4.0 - 11.0 E9/L [facility] HemeAuto[facility] Monitor Recordon 06-05-2023 Monitor Record [id number]#[id number]:1 27 Normal [facility] Troponin 0 Hr.on 06-05-2023 Troponin I.cardiac [Mass/Vol] 8.30 pg/mL Low 10.10-27.1 0 [facility] Comment on above: Result Comment: The 95% CI (Confidence Interval) PPV (Positive Predictive Value) for myocardial infarction in females is 38 pg/mL, in males 51 pg/mL. The results should be used in conjunction with clinical conditions of myocardial infarction. (Access High Sensitivity Troponin I Instructions For Use, Demetra Jay, May 2018) Performed By: #### 2 [id number], [id number] ####[facility] [address] [place] [address] XR Chest Single Viewon 06-05 XR Chest Single View Exam Date/Time: 06/05/2023 09:13 EDT Reason for Exam: Shortness of breath (SOB) Report IMPRESSION: NO ACUTE CARDIOPULMONARY DISEASE. CLINICAL HISTORY: Shortness of breath (SOB) COMPARISON: September 02, 2021 FINDINGS: Osseous structures intact. Cardiopericardial silhouette normal. Pulmonary vasculature normal. Lungs clear. Ordering Provider: Prasad Avalos FINAL REPORT Dictated: 06/05/2023 9:44 am Stephen Baldwin MD Signed (Electronic Signature): 06/05/2023 9:44 am Signed by: Stephen Baldwin MD Transcribed by: SCOTTY Technologist: DANIELLE Technical Comments Radiation Dose: Ka,r in mGy = na DAP = na Normal [facility] eGFRon 06-05-2023 GFR/1.73 sq M.predicted among non-blacks MDRD (S/P/Bld) [Vol rate/Area] 96 mL/min/1.73 m2 Normal >=59 [facility] Comment on above: Order Comment: Order added by Discern Expert. Result Comment: Clinical Review Nurse neisha kidney disease could be indicated at eGFR's of less than 60 mL/min/1.73m2. Kidney failure is indicated at less than 15 mL/min/1.73m2. Performed By: #### 2 [id number] ####[facility] [address] [place] [address] Patient Letter FTon 2022 Patient Letter [facility] (Inserted Image. Kandace ble to display) Keith Subramanian DPM [address] [place] [address] Re: CHLOE AGARWAL Date of : 1955 Re: Chloe Agarwal : 1955 Patient represents low risk of cardiovascular events involving her non-cardiac surgery. Recent left heart catheterization revealed normal coronary arteries. Vicky LARA [facility] Normal [facility] Outside Records Officeon Outside Records Office [id number]#[id number]:1 27 Normal [facility] Heart and Vascular Office/Cl inic Noteon 05-14-2023 Heart and Vascular Office/Clinic Note Chief Complaint 6 month F/U History of Present Illness Chloe Agarwal is a 67-year-old female patient of Dr. Douglas with normal coronary anatomy. Normal LV function. She has hypertension, GERD. She is here today for her 6-month follow-up. She denies any new cardiac complaints. Her blood pressure is elevated in the office, however, she reports better readings at other offices. She needs refills on metoprolol succinate. She denies any new cardiac complaints. Patient specifically denies chest pain, palpitations, SOB at rest, ZUÑIGA, edema, orthopnea, PND, dizziness, near syncope, or syncope. Review of Systems PHQ Score Initial Depression Screen Score: 0 Constitutional: no fever, no chills, no weakness, no fatigue Respiratory: no shortness of breath, no cough, no orthopnea, no wheezing Cardiovascular: no chest pain, no palpitations, no edema Neuro:no dizziness no light headed no syncope Additional ROS info: Except as noted in the above Review of Systems and in the History of Present Illness all other systems have been reviewed and are negative or noncontributory. Physical Exam Vitals & Measurements HR: 66(Peripheral) BP: 160/87 SpO2: 97% HT: 60 in HT: 152 cm WT: 77.6 kg WT: 170.72 lb BMI: 33.59 .ashvpe General: alert, no acute distress Neck: Supple, noJVD nocarotid bruit Cardiovascular: regular rate and rhythm, no murmur normal peripheral perfusion Respiratory: Lungs CTA, respirations non labored Extremities:no edema Neurological: oriented x 4, LOC appropriate for age, sensation equal & normal bilaterally, speech normal Skin: Warm, dry, intact- no rash or concerning lesions Procedure [facility] 09/17/21 CONCLUSIONS: 1. Normal coronary arteries. 2. Low normal left ventricular function with a left ventricular ejection fraction of 50-55%. 3. Normal left ventricular end-diastolic pressure. 4. Systemic hypertension. [1] Cardiac Diagnostics (10/27/2022 09:52 EST Echo Transthoracic Complete) Interpretation Summary Ejection Fraction = 55-60%. The left ventricular wall motion is normal. Grade I diastolic dysfunction, (abnormal relaxation pattern). Trace aortic regurgitation. There is Trace mitral regurgitation. There is trace tricuspid regurgitation. Right ventricular systolic pressure is 35 mmHg. [2] Assessment/Plan 1. Hypertension (I10: Essential (primary) hypertension) Patient with normal coronary arteries, normal LV function. Her blood pressure is elevated in the office today. She prefers to check home readings?will Rx a blood pressure monitor and she will follow home readings and call me in 2 weeks with trends. We can uptitrate losartan as needed. Low-sodium diet. Regular exercise, heart healthy eating. FU with Dr Douglas in 3 months. Follow-up No qualifying data available Problem List/Past Medical History Ongoing BMI 34.0-34.9,adult Chest pain due to GERD Chronic GERD Duodenogastric bile reflux Dysphagia Epigastric pain Gastritis H/O: osteoarthritis Hiatal hernia with gastroesophageal reflux HTN (hypertension) Osteoporosis Regurgitation of stomach contents Screening for malignant neoplasm of colon Sigmoid diverticulosis Unilateral primary osteoarthritis, right knee Vertigo Historical Appendicitis Cough GERD - Gastro-esophageal reflux disease Sinus drainage Procedure/Surgical History Injection of steroid into hip joint (04/20/2023), Colonoscopy (04/03/2023), Colonoscopy (04/03/2023), EGD - Esophagogastroduodenoscop y (04/03/2023), Esophagogastroduodenoscop y (04/03/2023), Injection of nerve root of lumbar spine using fluoroscopic guidance (03/17/2023), Cardiac catheterization procedure (09/17/2021), EGD - Esophagogastroduodenoscop y (04/01/2021), Appendectomy (10/19/2017), Arthroplasty of knee, Arthroplasty of knee, EGD - Esophagogastroduodenoscop y, Tonsillectomy with adenoidectomy, Ureterorenoscopy with fragmentation and removal of kidney stone. Medications Adult Blood Pressure Monitor with Large Bicep Cuff, See Instructions alendronate 70 mg Tab Carafate 1 gram Tab, 1 gm= 1 tab(s), Oral, QID, 3 refills Cozaar 25 mg Tab, 25 mg= 1 tab(s), Oral, Daily, 3 refills gabapentin 300 mg Cap, 300 mg= 1 cap(s), Oral, BID metoprolol 25 mg ER Tab, 25 mg= 1 tab(s), Oral, Daily, 3 refills Protonix 40 mg Tab-DR, 40 mg= 1 tab(s), Oral, BID Allergies lisinopril (Coughing) sulfa drugs (unknown) Social History Alcohol - Denies Alcohol Use, 09/07/2020 Current, 09/18/2019 Substance Abuse - Denies Substance Abuse, 09/07/2020 Tobacco - Denies Tobacco Use, 09/18/2019 Never (less than 100 in lifetime) Tobacco Use:. Never Smokeless Tobacco Use:., 04/28/2023 Family History Acute congestive heart failure: Mother and Father. Hypertension: Sister. Immunizations Vaccine Date Status Comments influenza virus vaccine, inactivated - Not Given Patient Refuses influenza virus vaccine, inactivated - Not Given Parent Or Guardian Refuses SARS-CoV-2 (COVID-19) mRNA (more content not included)... Normal [facility] Comment on above: Result Comment: Elec tronically Signed By: Vicky LAST CNP\.br\Date and Time Signed: 05/14/23 09:30 EDT Consent for Treatmenton 04-18 Consent for Treatment [id number]#1.00CD:127 [facility] Consultation Noteon 05-04-20 Consultation Note Patient: CHLOE AGARWAL Age: 67 years Sex: Female : 1955 Associated Diagnoses: None Author: Vicky Castillo PA-C Subjective Chief complaint 05/04/2023 8:49 EDT Right Hip pain . Patient is a 67-year-old female. She has a past medical history significant for lumbar neuritis, lumbar degenerative disc disease, and trochanteric bursitis. She underwent recent right-sided trochanteric bursa injection done on 04/20/2023 that has given her 50% relief. Prior to that she underwent bilateral L5-S1 transforaminal epidural steroid injection done on March 17, 2023 that gave her 75% relief. At this time, she feels that things are overall going very well. She is fairly comfortable. She is fairly happy. Her quality of life and her activities are improved. She feels that things are overall going very well for her. She does notice some cramping in her legs at night only that she rates a 5/10. She has been using Benadryl with some improvement but unfortunately, not quite enough. She wondered what else she can do to try to get some relief of this cramping at bedtime. At this time, this is her only complaint. She states that things are overall better. She can walk further and stand longer. She just needs to get some better control of her cramping in her legs Health Status Allergies: Allergic Reactions (Selected) Severity Not Documented Sulfa drugs- Unknown. Nonallergic Reactions (Selected) Severity Not Documented Lisinopril- Coughing., Allergies (2) Active Reaction lisinopril Coughing sulfa drugs unknown Current medications: (Selected) Prescriptions Prescribed Adult Blood Pressure Monitor with Large Bicep Cuff: Adult Blood Pressure Monitor with Large Bicep Cuff, See Instructions, 1 EA, 0, Check BP Daily Dx I10, Supply Carafate 1 gram Tab: 1 gm = 1 tab(s), Oral, QID, # 120 tab(s), Refills(s) 3, Pharmacy: [id number], 152, cm, 04/03/23 9:20:00 EDT, Height/Length Dosing, 80, kg, 04/03/23 9:20:00 EDT, Weight Dosing Cozaar 25 mg Tab: 25 mg = 1 tab(s), Oral, Daily, stopping Lisinopril Starting Cozaar, X 90 day(s), # 90 tab(s), Refills(s) 3, Pharmacy: [facility], 152, cm, 11/05/22 11:35:00 EST, Height/Length Dosing, 76, kg, 11/05/22 11:35:00 EST, Weight Dosing Protonix 40 mg Tab-DR: 40 mg = 1 tab(s), Oral, BID, # 120 tab(s), Refills(s) 0, Pharmacy: [facility], 152.4, cm, 04/01/21 7:20:00 EDT, Height/Length Dosing, 85.5, kg, 04/01/21 7:20:00 EDT, Weight Dosing gabapentin 300 mg Cap: 300 mg = 1 cap(s), Oral, BID, start with once a day for a week. If doing ok can increase to BID, # 60 cap(s), Refills(s) 0, Pharmacy: [facility], 152, cm, 05/04/23 8:55:00 EDT, Height/Length Dosing, 72.6, kg, 05/04/23 8:55:00 EDT, Shaheen... metoprolol 25 mg ER Tab: 25 mg = 1 tab(s), Oral, Daily, # 90 tab(s), Refills(s) 3, Pharmacy: [facility], 152, cm, 11/05/22 11:35:00 EST, Height/Length Dosing, 76, kg, 11/05/22 11:35:00 EST, Weight Dosing Documented Medications Documented alendronate 70 mg Tab: TAKE 1 TABLET BY MOUTH 30 MINUTES BEFORE first food once a week, Prophylaxis Problem list: All Problems Chronic GERD / SNOMED CT 585786276 / Confirmed Unilateral primary osteoarthritis, right knee / SNOMED CT 6001082461 / Confirmed Gastritis / SNOMED CT 5555148 / Confirmed Vertigo / SNOMED CT 4461592750 / Confirmed BMI 34.0-34.9,adult / SNOMED CT 077096156 / Confirmed Regurgitation of stomach contents / SNOMED CT 893881194 / Confirmed Osteoporosis / SNOMED CT 175039534 / Confirmed HTN (hypertension) / SNOMED CT 8982743420 / Confirmed Dysphagia / SNOMED CT 97361759 / Confirmed Epigastric pain / SNOMED CT 485741388 / Confirmed Chest pain due to GERD / SNOMED CT 35422397 / Confirmed Screening for malignant neoplasm of colon / SNOMED CT 544042006 / Confirmed H/O: osteoarthritis / SNOMED CT 808179262 / Confirmed Hiatal hernia with gastroesophageal reflux / SNOMED CT 3606246961 / Confirmed Duodenogastric bile reflux / SNOMED CT 73696864 / Confirmed Sigmoid diverticulosis / SNOMED CT 6949085737 / Confirmed Resolved: GERD - Gastro-esophageal reflux disease / SNOMED CT 9145281556 Resolved: Appendicitis / SNOMED CT 153755380 Resolved: Cough / SNOMED CT 60620023 Resolved: Sinus drainage / SNOMED CT 320277701 Canceled: GERD with apnea / SNOMED CT 4262347087 Objective VS/Measurements General: Alert and oriented, No acute distress. Overweight Eye: Normal conjunctiva. HENT: Normocephalic, Normal hearing. Cardiovascular: No edema. Musculoskeletal Normal range of motion. Normal strength. 5/5 lower extremity strength Integumentary: Warm, Dry, Sanders. Injection site well-healed Neurologic: Alert, Oriented. Psychiatric: Cooperative, Appropriate mood & affect. Impression and Plan Patient is a 67-year-old female with a past medical history as needed significant for lumbar degenerative disease, lumbar neuritis, and trochanteric bu (more content not included)... [facility] Comment on above: Result Comment: Elec tronically Signed By: Vicky Castillo PA-C\.br\Date and Time Signed: 05/04/23 09:08 EDT\.br\Electronically Co-Signed By: Valeri CANTRELL, Demar Leal\.br\Date and Time Co-Signed: 05/12/23 10:41 EDT Office/Clinic Note-Physician on 05-04-2023 Office/Clinic Note-Physician [id number]#1.00CD:12 7 [facility] Patient Correspondenceon Patient Correspondence [id number]#1.00CD:12 7 [facility] Patient Correspondence [id number]#1.00CD:12 7 [facility] Patient History Officeon Patient History Office [id number]#1.00CD:12 7 [facility] Consent for Treatmenton 04-18 Consent for Treatment [id number]#1.00CD:12 7 [facility] Progress Note-Nurseon 2022 Progress Note-Nurse [id number]#1.00CD:12 7 [facility] Consent for Procedure/Surger yon 04-20-2023 Consent for Procedure/Surgery [id number]#1.00CD:1 27 [facility] Consent for Treatmenton Consent for Treatment [id number]#1.00CD:12 7 [facility] Office/Clinic Note-Physician on 04-20-2023 Office/Clinic Note-Physician [id number]#1.00CD:1 27 [facility] Operative Reporton Operative Report Patient: CHLOE AGARWAL Age: 67 years Sex: Female : 1955 Associated Diagnoses: None Author: Demar Trammell MD Procedure Procedure: Right Hip Bursa Injection Diagnosis: Hip Bursitis Anesthesia: local The patient was identified in the patient room. The procedure, including risks benefits and alternatives was discussed with the patient. The patient agreed to proceed. Informed consent was obtained and the site(s) marked. The patient was brought to the procedure room and placed in the left lateral decubitus position. Time out was performed. The right hip region was exposed, prepped, and draped in the usual sterile fashion. The right hip bursa was injected with 4 mL of 0.25% bupivacaine and 40mg of triamcinolone after confirmation of negative aspiration through a 22G spinal needle. The needle was removed and dressing applied. The patient was brought the post-procedure area in stable condition. The patient was observed and monitored for an appropriate period of time and then discharged home. Post-procedure instructions were provided to the patient. No apparent complications. Epidural injection procedure Physical Exam: vital signs Vital Signs 04/20/2023 13:54 EDT Peripheral Pulse Rate 72 bpm Respiratory Rate 14 br/min Systolic Blood Pressure 159 mmHg HI Diastolic Blood Pressure 89 mmHg Mean Arterial Pressure, Cuff 112 mmHg . Normal [facility] Comment on above: Result Comment: Elec tronically Signed By: Valeri CANTRELL, Demar Leal\.br\Date and Time Signed: 04/20/23 14:27 EDT Patient Correspondenceon Patient Correspondence [id number]#1.00CD:1 27 Normal [facility] Patient History Officeon Patient History Office [id number]#1.00CD:1 27 [facility] Physician Orderon 04-20-2023 Physician Order [id number]#1.00CD:1 27 [facility] Ambulatory Visit Summaryon 0 04-15-2023 Ambulatory Visit Summary CHLOE AGARWAL :1955 Visit Date:04/15/2023 Ambulatory Visit Instructions Your Diagnosis Hiatal hernia with gastroesophageal reflux Duodenogastric bile reflux, Gastro-esophageal reflux disease without esophagitis Sigmoid diverticulosis Your Care Team Attending Physician - JOSE RAMON CANTRELL, Michael Billingsley Primary Care Physician - Yarelis Mcghee MD This Is Your Medications List Contact prescribing physician if questions or concerns alendronate (alendronate 70 mg Tab) losartan (Cozaar 25 mg Tab) metoprolol (metoprolol 25 mg ER Tab) pantoprazole (Protonix 40 mg Tab-DR) ropinirole (ropinirole 0.5 mg Tab) sucralfate (Carafate 1 gram Tab) Procedures Performed Colonoscopy (04/03/2023), Colonoscopy (04/03/2023), EGD - Esophagogastroduodenoscop y (04/03/2023), Esophagogastroduodenoscop y (04/03/2023), Injection of nerve root of lumbar spine using fluoroscopic guidance (03/17/2023), Cardiac catheterization procedure (09/17/2021), EGD - Esophagogastroduodenoscop y (04/01/2021), Appendectomy (10/19/2017), Arthroplasty of knee, Arthroplasty of knee, EGD - Esophagogastroduodenoscop y, Tonsillectomy with adenoidectomy, Ureterorenoscopy with fragmentation and removal of kidney stone. What to do next Scheduled Follow-Up Appointments Thursday 2:15 PM EDT With: Demar Trammell MD Where: [facility] Thursday 9:00 AM EDT With: Vicky LAST CNP Where: [facility] Thursday 9:00 AM EDT With: Vicky Castillo PA-C Where: [facility] Medications What How Much When Why Instructions Unchanged alendronate (alendronate 70 mg Tab) TAKE 1 TABLET BY MOUTH 30 MINUTES BEFORE first food once a week Contact prescribing physician if questions or concerns Unchanged losartan (Cozaar 25 mg Tab) 1 Tablets By Mouth Every day Duration: 90 Days stopping Lisinopril Starting Cozaar Contact prescribing physician if questions or concerns Unchanged metoprolol (metoprolol 25 mg ER Tab) 1 Tablets By Mouth Every day Contact prescribing physician if questions or concerns Unchanged pantoprazole (Protonix 40 mg Tab-DR) 1 Tablets By Mouth 2 times a day Chronic GERD Contact prescribing physician if questions or concerns Unchanged ropinirole (ropinirole 0.5 mg Tab) take 1 tablet by mouth at bedtime Contact prescribing physician if questions or concerns Unchanged sucralfate (Carafate 1 gram Tab) 1 Tablets By Mouth 4 times a day Hiatal hernia with gastroesophageal reflux disease without esophagitis Contact prescribing physician if questions or concerns Allergies lisinopril (Coughing) sulfa drugs (unknown) Problems Ongoing - Any problem that you are currently receiving treatment for. BMI 34.0-34.9,adult Chest pain due to GERD Chronic GERD Duodenogastric bile reflux Dysphagia Epigastric pain Gastritis H/O: osteoarthritis Hiatal hernia with gastroesophageal reflux HTN (hypertension) Osteoporosis Regurgitation of stomach contents Screening for malignant neoplasm of colon Sigmoid diverticulosis Unilateral primary osteoarthritis, right knee Vertigo Historical - Any problem that you are no longer receiving treatment for. Appendicitis Cough GERD - Gastro-esophageal reflux disease Sinus drainage Normal [facility] General Surgery Office/Clini c Noteon 04-15-2023 General Surgery Office/Clinic Note Chief Complaint post operative follow up HPI Staff 12 day post operative follow up post EGD and colonoscopy with sigmoid biopsy. Carafate initiated after scopes completed. States all symptoms have improved or resolved. History of Present Illness s/p EGD and colonoscopy; EGD with 4 cm hiatal hernia and bile reflux; colonoscopy with severe sigmoid diverticulosis and mild sigmoid inflammation, bx just revealed lymphoid aggregates; patient improved with Carafate; no abd pain. Review of Systems ROS - Provider Constitutional: no fever, no sweats, no weight loss. Eyes: no glasses, no blurred vision, no visual loss. ENMT: no dentures, no hoarseness, no swallowing difficulties, no hearing loss, no ear infection(s), no nose bleeds. Cardiovascular: normal blood pressure, no chest pain, regular heartbeat, no heart murmur. Respiratory: no shortness of breath, no cough, no asthma, no wheezing. Gastrointestinal: no nausea, no vomiting, no diarrhea, no constipation, no blood in stool, no change in bowel habits, no abdominal pain, no hepatitis. Genitourinary: no kidney stones, no urine infection, no dysuria. Musculoskeletal: no pain, no weakness. Skin: no changing moles, no rash, no skin lumps. Neurologic: no seizures, no epilepsy, no headache. Psychiatric: no emotional or psychiatric problem. Heme/Lymph: no bleeding problems, no anemia, no blood clots, no transfusions. Allergy/Immunologic: no swollen lymph nodes/glands, no IV drug abuse. Other: Additional ROS info: Except as noted in the above Review of Systems and in the History of Present Illness, all other systems have been reviewed and are negative or noncontributory. Assessment/Plan 1. Hiatal hernia with gastroesophageal reflux (K44.9: Diaphragmatic hernia without obstruction or gangrene) continue PPI and Carafate; frequent small meals; no eating 3 hours prior to bedtime; call with problems/questions. 2. Duodenogastric bile reflux, (K21.9: Gastro-esophageal reflux disease without esophagitis)Gastro-esopha geal reflux disease without esophagitis see # 1 3. Sigmoid diverticulosis (K57.30: Diverticulosis of large intestine without perforation or abscess without bleeding) high fiber diet and daily fiber supplement; recommend screening colonoscopy in 10 years. Follow-up No qualifying data available Problem List/Past Medical History Ongoing BMI 34.0-34.9,adult Chest pain due to GERD Chronic GERD Duodenogastric bile reflux Dysphagia Epigastric pain Gastritis H/O: osteoarthritis Hiatal hernia with gastroesophageal reflux HTN (hypertension) Osteoporosis Regurgitation of stomach contents Screening for malignant neoplasm of colon Sigmoid diverticulosis Unilateral primary osteoarthritis, right knee Vertigo Historical Appendicitis Cough GERD - Gastro-esophageal reflux disease Sinus drainage Procedure/Surgical History Colonoscopy (04/03/2023), Colonoscopy (04/03/2023), EGD - Esophagogastroduodenoscop y (04/03/2023), Esophagogastroduodenoscop y (04/03/2023), Injection of nerve root of lumbar spine using fluoroscopic guidance (03/17/2023), Cardiac catheterization procedure (09/17/2021), EGD - Esophagogastroduodenoscop y (04/01/2021), Appendectomy (10/19/2017), Arthroplasty of knee, Arthroplasty of knee, EGD - Esophagogastroduodenoscop y, Tonsillectomy with adenoidectomy, Ureterorenoscopy with fragmentation and removal of kidney stone. Medications alendronate 70 mg Tab Carafate 1 gram Tab, 1 gm= 1 tab(s), Oral, QID, 3 refills Cozaar 25 mg Tab, 25 mg= 1 tab(s), Oral, Daily, 3 refills metoprolol 25 mg ER Tab, 25 mg= 1 tab(s), Oral, Daily, 3 refills Protonix 40 mg Tab-DR, 40 mg= 1 tab(s), Oral, BID ropinirole 0.5 mg Tab Allergies lisinopril (Coughing) sulfa drugs (unknown) Social History Alcohol - Denies Alcohol Use, 09/07/2020 Current, 09/18/2019 Substance Abuse - Denies Substance Abuse, 09/07/2020 Tobacco - Denies Tobacco Use, 09/18/2019 Never (less than 100 in lifetime) Tobacco Use:. Never Smokeless Tobacco Use:., 02/20/2023 Family History Acute congestive heart failure: Mother and Father. Hypertension: Sister. Immunizations Vaccine Date Status Comments influenza virus vaccine, inactivated - Not Given Patient Refuses influenza virus vaccine, inactivated - Not Given Parent Or Guardian Refuses SARS-CoV-2 (COVID-19) mRNA BNT-162b2 vax 07/23/2021 Recorded SARS-CoV-2 (COVID-19) mRNA BNT-162b2 vax 07/02/2021 Recorded Normal [facility] Comment on above: Result Comment: Elec tronically Signed By: Michael ALBRIGHT MD\.br\Date and Time Signed: 04/15/23 14:05 EDT IntraOperative Documentson 0 04-13-2023 IntraOperative Documents [id number]#1.00CD:1 27 Normal [facility] Colonoscopy Procedure Report on 04-09-2023 Colonoscopy Procedure Report Patient: CHLOE AGARWAL Age: 67 years Sex: Female : 1955 Associated Diagnoses: None Author: Michael ALBRIGHT MD Pre-Procedure Procedure Date 04/03/2023 10:25:00 . Procedure Type: Colonoscopy. Procedure provider Performed by Michael ALBRIGHT MD. Referred by Yarelis Mcghee MD. Current history and physical Documented on chart. Colorectal neoplasm risk assessment Average risk. Informed Consent After discussing the rationale, risks and benefits, and alternatives to this procedure, the patient provided signed consent for the procedure. Pre-procedure diagnosis: Age 50 years or over. ASA Classification: Class II. . Monitoring: See anesthesia record. . Procedure The procedure was performed in the hospital. See anesthesia record for sedation given during procedure. Rectal exam was performed and was normal. The patient was positioned starting in the left lateral decubitus position. Endoscope type used was an adult-size. The endoscope was lubricated then introduced through the anus. The scope was advanced to the cecum verified by photographing the appendiceal orifice, verified by photographing the ileocecal valve. No difficulties encountered during the procedure. The bowel preparation quality was good and was adequate (see polyps greater than or equal to 6 millimeters). The patient tolerated the procedure well. Findings Diverticulosis was identified in the sigmoid colon. The diverticulosis is severe. Images Procedure images: sigmoid diverticulosis ileocecal valve appendiceal orifice anal canal . Post-Procedure Complications: none. Estimated blood loss: none. Specimens: none. Devices/ implants: none left in place. Impression and Plan Diagnosis: Diverticulosis of sigmoid colon ([id number] K57.30, Discharge, Medical). Course: Progressing as expected. Recommendations: Repeat colonoscopy:: In 10 years. Follow-up:: 1-2 weeks. Diet:: Regular diet. Medication resumption:: Continue current medications. Return to activities:: After 24 hours. Education and Follow-up: Counseled: Family. there was noted to be mild inflammation of the sigmoid colon, and a biopsy was obtained. with cold biopsy forceps, with good hemostasis. [facility] Comment on above: Other Comment: Constanza diamond Attachment - attachment storage system not supported [id number] Can be viewed in source systemMissing Attachment - attachment storage system not supported [id number] Can be viewed in source systemMissing Attachment - attachment storage system not supported [id number] Can be viewed in source systemMissing Attachment - attachment storage system not supported [id number] Can be viewed in source system Coding Queryon 04-08-2023 Coding Query - From: Aminata Cruz To: JOSE RAMON CANTRELL, Michael Billingsley; Sent: 04/08/2023 10:30:53 EDT ! Subject: Coding Query Dr Albright, There is a pathology report from the colonoscopy, can you document that portion of the procedure for the OP note. Thank you, Jennifer HIM Coding [facility] Consent for Treatmenton 03-20 Consent for Treatment [id number]#1.00CD:1 27 [facility] Consultation Noteon 04-07-20 23 Consultation Note Patient: CHLOE AGARWAL Age: 67 years Sex: Female : 1955 Associated Diagnoses: None Author: Valeri CANTRELL, Demar Leal Subjective Chief complaint 04/07/2023 10:56 EDT Lower back pain . 67-year-old female following up from bilateral L5/S1 transforaminal epidural steroid injection on 03/17/2023. Patient is experiencing ongoing 75% relief of her pain. The majority of her pain is in the right lateral hip. Hurts to sleep on that side. Pain no longer radiates in the lower extremities past the right hip. Pain rates as a 4-5 out of 10 on the visual analog scale. It does wake her from sleep. ELVIS 16. Health Status Allergies: Allergic Reactions (All) Severity Not Documented Sulfa drugs- Unknown. Nonallergic Reactions (All) Severity Not Documented Lisinopril- Coughing. Current medications: (Selected) Prescriptions Prescribed Carafate 1 gram Tab: 1 gm = 1 tab(s), Oral, QID, # 120 tab(s), Refills(s) 3, Pharmacy: [facility], 152, cm, 04/03/23 9:20:00 EDT, Height/Length Dosing, 80, kg, 04/03/23 9:20:00 EDT, Weight Dosing Cozaar 25 mg Tab: 25 mg = 1 tab(s), Oral, Daily, stopping Lisinopril Starting Cozaar, X 90 day(s), # 90 tab(s), Refills(s) 3, Pharmacy: [facility], 152, cm, 11/05/22 11:35:00 EST, Height/Length Dosing, 76, kg, 11/05/22 11:35:00 EST, Weight Dosing Protonix 40 mg Tab-DR: 40 mg = 1 tab(s), Oral, BID, # 120 tab(s), Refills(s) 0, Pharmacy: [facility], 152.4, cm, 04/01/21 7:20:00 EDT, Height/Length Dosing, 85.5, kg, 04/01/21 7:20:00 EDT, Weight Dosing metoprolol 25 mg ER Tab: 25 mg = 1 tab(s), Oral, Daily, # 90 tab(s), Refills(s) 3, Pharmacy: [facility], 152, cm, 11/05/22 11:35:00 EST, Height/Length Dosing, 76, kg, 11/05/22 11:35:00 EST, Weight Dosing Documented Medications Documented alendronate 70 mg Tab: TAKE 1 TABLET BY MOUTH 30 MINUTES BEFORE first food once a week, Prophylaxis ropinirole 0.5 mg Tab: take 1 tablet by mouth at bedtime, Other (see comment) Problem list: All Problems BMI 34.0-34.9,adult / SNOMED CT 098117262 / Confirmed Chest pain due to GERD / SNOMED CT 44928087 / Confirmed Chronic GERD / SNOMED CT 046032159 / Confirmed Dysphagia / SNOMED CT 92790594 / Confirmed Epigastric pain / SNOMED CT 639528636 / Confirmed Gastritis / SNOMED CT 6670501 / Confirmed H/O: osteoarthritis / SNOMED CT 932995183 / Confirmed HTN (hypertension) / SNOMED CT 5244778453 / Confirmed Osteoporosis / SNOMED CT 050104633 / Confirmed Regurgitation of stomach contents / SNOMED CT 943051184 / Confirmed Screening for malignant neoplasm of colon / SNOMED CT 202035165 / Confirmed Unilateral primary osteoarthritis, right knee / SNOMED CT 2639264204 / Confirmed Vertigo / SNOMED CT 5233697485 / Confirmed Objective Vital Signs 04/07/2023 10:56 EDT Peripheral Pulse Rate 46 bpm LOW Respiratory Rate 16 br/min Systolic Blood Pressure 160 mmHg HI Diastolic Blood Pressure 86 mmHg Mean Arterial Pressure, Cuff 111 mmHg General: No acute distress. Alert and oriented x3. Well-nourished. Well-developed. Musculoskeletal: Injection sites healed. Distinctly tender over the right greater trochanter to palpation. No pain with range of motion of the right hip. Neuro: 5/5 strength throughout bilateral lower extremities. Normal gait. Impression and Plan 67-year-old female with a history of lumbar degenerative disc disease and lumbar radiculitis much improved following the bilateral L5/S1 transforaminal epidural steroid injections. She continues to have some right hip related pain that is likely bursitis. I explained this to the patient and her . I offered the patient a right hip bursa injection with steroid. Risk, benefits, and alternatives were reviewed with the patient. She wishes to proceed. We will obtain insurance authorization for the injection and have the patient come in for the procedure. Plan to follow-up 2 weeks after the injection to assess response. Patient agrees with plan of care. [facility] Comment on above: Result Comment: Elec tronically Signed By: Valeri CANTRELL, Demar Preston.br\Date and Time Signed: 04/07/23 12:35 EDT Main OR Intraoperative Recor don 04-07-2023 Main OR Intraoperative Record IntraOp Document Type FT Summary Primary Physician: Michael ALBRIGHT MD Finalized Date/Time: 04/07/23 08:07:26 Pt. Name: CHLOE AGARWAL /Sex: 1955 Female Med Rec #: [id number] Physician: Michael ALBRIGHT MD Financial #: [id number] Pt. Type: O Room/Bed: Endo 12/17 Admit/Disch: 04/03/23 09:06:01 - 04/03/23 10:54:28 Institution: Case Times FT Entry 1 Patient Times In Room 04/03/23 09:47:00 Out Room 04/03/23 10:12:00 Procedure Times Start 04/03/23 09:50:00 Stop 04/03/23 10:11:00 Anesthesia Times Start 04/03/23 09:47:00 Stop 04/03/23 10:12:00 Time at [facility] 04/03/23 10:04:00 Last Modified By: Mary DUMONT, Iris 04/03/23 10:11:48 General Comments: 0952-EGD completed. /AW RN 0955-Colonoscopy started/AW RN 04/07/23 Chart opened to review and send charges [facility]oth CSFA Case Attendance FT Entry 1 Entry 2 Entry 3 Case Attendee Manfred GOMEZ, Nico Hernandez RN, Karissa Little Role Performed Anesthesiologist [employer] Detailer - Primary Scrub - Primary Sand Blaster Time In 04/03/23 09:47:00 04/03/23 09:47:00 04/03/23 09:47:00 Time Out 04/03/23 10:12:00 04/03/23 10:12:00 04/03/23 10:12:00 Procedure EGD AND COLONOSCOPY(.) EGD AND COLONOSCOPY(.) EGD AND COLONOSCOPY(.) Comments supervising Last Modified By: Mary RN, Iris Hernandez RN, Iris Hernandez RN, Iris 04/03/23 10:11:51 04/03/23 10:11:51 04/03/23 10:19:12 Entry 4 Entry 5 Case Attendee Noemi Sales MD, Michael R Role Performed Staff - Other Surgeon - Primary Time In 04/03/23 09:47:00 04/03/23 09:47:00 Time Out 04/03/23 10:12:00 04/03/23 10:12:00 Procedure EGD AND COLONOSCOPY(.) EGD AND COLONOSCOPY(.) Comments help in room Last Modified By: Iris Hernandez RN, RN, Angela 04/03/23 10:19:12 04/03/23 10:11:51 Perioperative Protocols FT Pre-Care Text: Implements protective measures prior to operative or invasive procedure, confirms identity before the operative or invasive procedure, verifies operative procedure, surgical site, and laterality Entry 1 Procedure(s) EGD AND COLONOSCOPY(.) Patient Identity Birthday, ID Band Verified (select at Check, Patient least 2): Participation Consents / H and P Anesthesia Consent, Operative Site N/A Verified HandP, Surgery/Procedure Marking Verified Consent Surgical Site No Laterality Verified n/a Verified Procedure Verified Yes Correct Patient Yes Position Verified Availability Equipment, Medication Prep Dry n/a Verified (If Applicable) PreOp Antibiotic No Time Out Nico Carter Given Participants Mary Enciso RN, Rayshawn Simmons Kirstyn K, Sparks, Micala E, NILL MD, Michael R Time Out Complete 04/03/23 09:49:00 Outcomes Met? Yes Last Modified By: Iris Hernandez RN 04/03/23 09:52:41 Post-Care Text: The patient is free from signs and symptoms of injury caused by extraneous objects Allergy Information FT Pre-Care Text: Verifies allergies Entry 1 Allergies Reviewed? Yes Allergies Reviewed Self/Patient With Outcomes Met? Yes Last Modified By: Iris Hernandez RN 04/03/23 09:52:48 Post-Care Text: The patient received appropriate medication(s) safely administered during the perioperative period Surgical Procedures FT Entry 1 Procedure Description Procedure EGD AND COLONOSCOPY Modifiers . Surgeon Description EGD and Colonoscopy with sigmoid colon biopsy Primary Procedure Yes Primary Surgeon Michael ALBRIGHT MD Start 04/03/23 09:50:00 Stop 04/03/23 10:11:00 Anesthesia Type General Surgical Service General Wound Class 2 - Clean-Contaminated Last Modified By: Iris Hernandez RN 04/03/23 10:18:20 General Case Data FT Pre-Care Text: Classifies surgical wound, implements aseptic technique, initiates traffic control Entry 1 Case Information OR ENDO 1 FT Case Level Level 2 Wound Class 2 - Clean-Contaminated Specialty General ASA Class 3 Preop Diagnosis SCREENING, EPIGASTRIC Postop Same As Preop No PAIN, RUQ PAIN, GERD Postop Diagnosis EGD- hiatal hernia. Outcomes Met? Yes Colonoscopy-diverticulos is Last Modified By: Iris Hernandez RN 04/03/23 10:13:28 Post-Care Text: The patient is free from signs and symptoms of infection Skin Assessment (Pre Procedure) FT Pre-Care Text: Implements protective measures to prevent skin/ tissue injury due to thermal or mechanical sources Evaluates for signs and symptoms of physical injury to skin and tissue Entry 1 Skin Integrity Intact, Sanders, Warm, and Skin Abnormality No Dry Outcomes Met? Yes Last Modified By: Iris Hernandez RN 04/03/23 09:56:59 Post-Care Text: The patient is free from signs and symptoms of injury caused by extraneous objects Patient Positioning FT Pre-Care Text: Identifies physical alterations that require additional precautions for procedure-specific positioning, verifies presence of prosthetics or corrective devices, positions the patient, evaluates the patient for (more content not included)... [facility] Office/Clinic Note-Physician on 04-07-2023 Office/Clinic Note-Physician [id number]#1.00CD:1 27 [facility] Patient Correspondenceon Patient Correspondence [id number]#1.00CD:1 27 [facility] Patient History Officeon Patient History Office [id number]#1.00CD:1 27 [facility] Consenton 04-06-2023 Consent [id number]#1.00CD:12 7 [facility] Discharge Instructionson Discharge Instructions [id number]#1.00CD:12 7 [facility] Postoperative Documentson Postoperative Documents [id number]:12 7 [facility] Reminderson 04-06-2023 Reminders - From: Teresa Golden LPN To: N - Clinical; Sent: 04/06/2023 09:24:18 EDT Show up: 03/03/2033 07:00:00 EDT Subject: colonoscopy recall Due Date/Time: 04/03/2033 07:00:00 EDT Reminder/Recall Patient due for screening colonoscopy 04/03/2033. [facility] Consent for Treatmenton 03-19 Consent for Treatment [id number]:12 7 [facility] Discharge Instructionson Discharge Instructions CHLOE AGARWAL :1955 Visit Date:04/03/2023 Inpatient Discharge Instructions Your Care Team Admitting Physician - Michael ALBRIGHT MD Referring Physician - Michael ALBRIGHT MD Reason for Your Visit SCREENING, EPIGASTRIC PAIN, RUQ PAIN, GERD Your Diagnosis Diverticulosis of sigmoid colon Encounter for colorectal cancer screening Encounter for screening for malignant neoplasm of rectum Gastro-esophageal reflux disease without esophagitis Hiatal hernia with gastroesophageal reflux disease without esophagitis, Hiatal hernia with gastroesophageal reflux disease without esophagitis Tests Performed Pathology Tissue Exam -- Results Pending -- Please visit your patient portal for your results or contact your primary care physician. This Is Your Medications List alendronate (alendronate 70 mg Tab) losartan (Cozaar 25 mg Tab) metoprolol (metoprolol 25 mg ER Tab) pantoprazole (Protonix 40 mg Tab-DR) ropinirole (ropinirole 0.5 mg Tab) sucralfate (Carafate 1 gram Tab) Procedure History Colonoscopy (04/03/2023), Esophagogastroduodenoscop y (04/03/2023), Cardiac catheterization procedure (09/17/2021), EGD - Esophagogastroduodenoscop y (04/01/2021), Appendectomy (10/19/2017), Arthroplasty of knee, Arthroplasty of knee, EGD - Esophagogastroduodenoscop y, Tonsillectomy with adenoidectomy, Ureterorenoscopy with fragmentation and removal of kidney stone. What to do next Instructions From Your Doctor Event Name Event Result Discharge Activity Resume normal activities in 24 hours, Arrange for a responsible adult supervision for 24 hours Discharge Restrictions No driving for 24 hrs, Do not operate machinery or tools, Do not make important decisions for 24 hours, Do not drink alcoholic beverages for 24 hours Discharge Diet(s) Regular Call Your Doctor For Persistent or heavy bleeding, Temperature above 101.5 degrees, Redness, swelling, or pus at operative site, Severe pain at the operative site, Persistent vomiting Pharmacy Information Other: [facility] Discharge Instructions Discharge Instructions Previously Scheduled Follow-Up Appointments Thursday 11:00 AM EDT With: Demar Trammell MD Where: [facility] Thursday 9:00 AM EDT With: Vicky LAST CNP Where: [facility] New Follow Up Appointments after Discharge Follow Up with Michael ALBRIGHT When: Within 2 weeks Where: [facility] [place] [id number] Business (1) Medications What How Much When Why Instructions Next Dose New sucralfate (Carafate 1 gram Tab) 1 Tablets By Mouth 4 times a day Hiatal hernia with gastroesophageal reflux disease without esophagitis Refills: 3 Pickup at [facility] Unchanged alendronate (alendronate 70 mg Tab) TAKE 1 TABLET BY MOUTH 30 MINUTES BEFORE first food once a week Unchanged losartan (Cozaar 25 mg Tab) 1 Tablets By Mouth Every day Duration: 90 Days stopping Lisinopril Starting Cozaar Unchanged metoprolol (metoprolol 25 mg ER Tab) 1 Tablets By Mouth Every day Unchanged pantoprazole (Protonix 40 mg Tab-DR) 1 Tablets By Mouth 2 times a day Chronic GERD Unchanged ropinirole (ropinirole 0.5 mg Tab) take 1 tablet by mouth at bedtime Pharmacy Information [facility]: [address] [place] [phone] Allergies lisinopril (Coughing) sulfa drugs (unknown) Problems Ongoing - Any problem that you are currently receiving treatment for. BMI 34.0-34.9,adult Chest pain due to GERD Chronic GERD Dysphagia Epigastric pain Gastritis H/O: osteoarthritis HTN (hypertension) Osteoporosis Regurgitation of stomach contents Screening for malignant neoplasm of colon Unilateral primary osteoarthritis, right knee Vertigo Historical - Any problem that you are no longer receiving treatment for. Appendicitis Cough GERD - Gastro-esophageal reflux disease Sinus drainage Education Materials Diverticulosis Many people have small pouches in their colon called diverticulum. The diverticulum bulge outward through weak spots in the colon. You could have one or more of these pouches in the colon. The condition of having these pouches in the colon is called diverticulosis or diverticular disease. Diverticulosis is usually diagnosed by tests to evaluate something else. For example, you may have had a colonoscopy to screen for colon cancer when the diverticulosis was found. Most people with diverticulosis do not have any discomfort or problems. If symptoms develop, they may include mild cramps, bloating, and constipation. A complication of this condition is called diverticulitis. This is when the diverticulum become inflamed and infected. How to treat diverticulosis: Increasing the amount of fiber in the diet may reduce symptoms of diverticulosis and prevent complications such (more content not included)... [facility] Comment on above: Result Comment: Elec tronically Signed By: Luke DUMONT, Fartun Leal\.br\Date and Time Signed: 04/03/23 10:26 EDT David 04-03-2023 Esophagogastroduodenosco py Patient: CHLOE AGARWAL Age: 67 years Sex: Female : 1955 Associated Diagnoses: None Author: Michael ALBRIGHT MD Pre-Procedure Procedure Date 04/03/2023 10:19:00 . Procedure Type: Esophagogastroduodenoscop y. Procedure provider Performed by Michael ALBRIGHT MD. Referred by Yarelis Mcghee MD. Current history and physical Documented on chart. Informed Consent After discussing the rationale, risks and benefits, and alternatives to this procedure, the patient provided signed consent for the procedure. Pre-procedure diagnosis: Epigastric pain. ASA Classification: Class II. . Monitoring: See anesthesia record. . Procedure The procedure was performed in the hospital. See anesthesia record for sedation given during procedure. The patient was positioned starting in the left lateral decubitus position. Endoscope type used was an adult-size, introduced orally, advanced to the 2nd portion of the duodenum. No difficulty was encountered during the procedure. Views were excellent. The patient tolerated the procedure well. Findings Examination of the esophagus revealed a normal esophagus. The squamocolumnar junction appeared regular. A hiatal hernia was identified 4 cm in length. The hernia is described as a sliding hernia. Examination of the duodenum revealed a normal duodenum. Images Procedure images: anal canal sigmoid diverticulosis ileocecal valve appendiceal orifice . Post-Procedure Complications: none. Estimated blood loss: none. Devices/ implants: none left in place. Impression and Plan EGD: Diagnosis: Hiatal hernia with gastroesophageal reflux disease without esophagitis (RDC86-LX K44.9, Working, Medical), Hiatal hernia with gastroesophageal reflux disease without esophagitis (HVF22-KP K44.9, Discharge, Medical), Gastro-esophageal reflux disease without esophagitis (OMR92-WG K21.9, Discharge, Medical), Encounter for screening for malignant neoplasm of rectum (DIN39-NL Z12.12, Discharge, Medical), Encounter for colorectal cancer screening (IFO66-HN Z12.11, Discharge, Medical), Diverticulosis of sigmoid colon (XLY46-WS K57.30, Discharge, Medical). Course: Progressing as expected. Education and Follow-up: Counseled: Family. [facility] Comment on above: Other Comment: Constanza diamond Attachment - attachment storage system not supported [id number] Can be viewed in source systemMissing Attachment - attachment storage system not supported [id number] Can be viewed in source systemMissing Attachment - attachment storage system not supported [id number] Can be viewed in source systemMissing Attachment - attachment storage system not supported [id number] Can be viewed in source system Inpatient Patient Summaryon 04-03-2023 Inpatient Patient Summary [address] [address] [facility] Clinical Discharge Instructions PERSON INFORMATION Name: CHLOE AGARWAL PHYSICIANS Admitting Physician: Michael ALBRIGHT MD Attending Physician: Michael ALBRIGHT MD PCP: Nathalie CANTRELL, Yarelis Discharge Diagnosis: Diverticulosis of sigmoid colon; Encounter for colorectal cancer screening; Encounter for screening for malignant neoplasm of rectum; Gastro-esophageal reflux disease without esophagitis; Hiatal hernia with gastroesophageal reflux disease without esophagitis Comment: PATIENT EDUCATION INFORMATION Instructions: Medication Leaflets: Follow up: With: Address: When: Michael ALBRIGHT [address] [place] [address], [address], [facility] [address] [place] [address] Business (1) Within 2 weeks Type Location Start Finish State Pain [facility] - Follow Up ([facility]) [facility] [place] 04/07/2023 11:00 AM 04/07/2023 11:15 AM Confirmed Cardiology Follow Up ([facility]) [facility] 04/28/2023 9:00 AM 04/28/2023 9:15 AM Confirmed MEDICATION LIST New Medications [facility], [address] [place], [place] [id number], [phone] sucralfate (Carafate 1 gram Tab) 1 Tablets By Mouth 4 times a day. Refills: 3. Medications to Continue with No Changes Other Medications alendronate (alendronate 70 mg Tab) TAKE 1 TABLET BY MOUTH 30 MINUTES BEFORE first food once a week. losartan (Cozaar 25 mg Tab) 1 Tablets By Mouth every day for 90 Days. stopping Lisinopril Starting Cozaar. Refills: 3. metoprolol (metoprolol 25 mg ER Tab) 1 Tablets By Mouth every day. Refills: 3. pantoprazole (Protonix 40 mg Tab-DR) 1 Tablets By Mouth 2 times a day. Refills: 0. ropinirole (ropinirole 0.5 mg Tab) take 1 tablet by mouth at bedtime., Restless legs Comment: [facility] Main OR PACU I Recordon 03-19 Main OR PACU I Record PACU Phase I Docum ent Type FT Summary Primary Physician: Michael ALBRIGHT MD Finalized Date/Time: 04/03/23 10:55:16 Pt. Name: CHLOE AGARWAL Arlen Powell/Sex: 1955 Female Med Rec #: [id number] Physician: Michael ALBRIGHT MD Financial #: [id number] Pt. Type: O Room/Bed: Endo 12/17 Admit/Disch: 04/03/23 09:06:01 - 04/03/23 10:54:28 Institution: Case Times PACU I FT Pre-Care Text: Identifies barriers to communication and implements measures to provide psychological support Develops individualized plan of care, and ensures continuity of care Maintains patient's dignity and privacy, and maintains patient confidentiality Identifies and reports philosophical, cultural, and spiritual beliefs and values Identifies individual values and wishes concerning care Implements aseptic technique, and administers prescribed antibiotic therapy and immunizing agents as ordered Evaluates postoperative tissue perfusion Implements thermoregulation measures, and monitors body temperature Evaluates postoperative respiratory status Evaluates postoperative cardiac status Evaluates postoperative neurological status Assesses pain control, collaborated in initiating patient-controlled analgesia and implements alternative methods of pain control Verifies allergies, administers prescribed medications and solutions, evaluates response to medications Entry 1 In PACU I 04/03/23 10:15:00 Discharge from PACU 04/03/23 10:45:00 I Outcomes Met? Yes Last Modified By: Luke DUMONT, Fartun Leal 04/03/23 10:55:01 Post-Care Text: The patient demonstrates knowledge of the expected response to the operative or invasive procedure The patient's care is consistent with the individualized perioperative plan of care The patient's right to privacy is maintained The patient's value system, lifestyle, ethnicity, and culture are considered, respected, and incorporated into the perioperative plan of care The patient participates in decisions affecting his or her perioperative plan of care The patient is free from signs and symptoms of infection The patient has wound/tissue perfusion consistent with or improved from baseline levels established preoperatively The patient is at or returning to normothermia at the conclusion of the immediate postoperative period The patient's respiratory function is consistent with or improved from baseline levels established preoperatively The patient's cardiovascular status is consistent with or improved from baseline levels established preoperatively The patient's cardiovascular status is consistent with or improved from baseline levels established preoperatively The patient demonstrates and/or reports adequate pain control throughout the perioperative period The patient received appropriate medication(s), safely administered during the perioperative period Acuity Level PACU I FT Entry 1 Start Time 04/03/23 10:15:00 Stop Time 04/03/23 10:45:00 Acuity Level Acuity Level I Last Modified By: Fartun Butler RN 04/03/23 10:55:13 Finalized By: Fartun Butler RN Document Signatures Signed By: Fartun Butler RN 04/03/23 10:55 Normal [facility] Monitor Recordon 04-03-2023 Monitor Record [id number]#1.00CD:1 27 [facility] Monitor Record [id number]#1.00CD:1 27 [facility] Outpatient Surgery Discharge Instructionon 04-03-2023 Outpatient Surgery Discharge Instruction [place] [id number] Patient Discharge Instructions PERSON INFORMATION Name: CHLOE AGARWAL Date of : 1955 Current Date: 04/03/2023 10:17:08 PHYSICIANS Admitting Physician: Michael ALBRIGHT MD Discharge Diagnosis: Diverticulosis of sigmoid colon; Encounter for colorectal cancer screening; Encounter for screening for malignant neoplasm of rectum; Gastro-esophageal reflux disease without esophagitis; Hiatal hernia with gastroesophageal reflux disease without esophagitis CHLOE AGARWAL has been given the following list of follow-up instructions, prescriptions, and patient education materials: PATIENT FOLLOW-UP INFORMATION Diet: Regular Discharge Activity: Resume normal activities in 24 hours, Arrange for a responsible adult supervision for 24 hours Discharge Restrictions: No driving for 24 hrs, Do not operate machinery or tools, Do not make important decisions for 24 hours, Do not drink alcoholic beverages for 24 hours Call Your Doctor For: Persistent or heavy bleeding, Temperature above 101.5 degrees, Redness, swelling, or pus at operative site, Severe pain at the operative site, Persistent vomiting IF UNABLE TO CONTACT YOUR PHYSICIAN AND YOU FEEL IT IS AN EMERGENCY, GO TO THE NEAREST EMERGENCY ROOM OR CALL 911 I, CHLOE AGARWAL, have received the attached patient education materials/instructions and have verbalized understanding: May we do a follow up call? Yes No I was present when discharge instructions were given Patient Signature ___ Date Clinican/Nurse Signature Date Follow up: With: Address: When: Michael ALBRIGHT [address] [place], [place] [address]johanna, [address], [facility] [address] [place] [address] Business (1) Within 2 weeks Type Location Start Finish State Pain [facility] - Follow Up ([facility]) [facility] [place] 04/07/2023 11:00 AM 04/07/2023 11:15 AM Confirmed Cardiology Follow Up ([facility]) [facility] 04/28/2023 9:00 AM 04/28/2023 9:15 AM Confirmed Pharmacy Information: Other: [facility] You may receive a survey from [employer] asking you to rate your care experience. Your feedback is important and will help us understand what we do well and how we can improve the quality of care we provide to you, your loved ones and our community. It?s an honor to serve you. Thank you for choosing [facility] HERE ARE THE MEDICATION CHANGES THAT OCCURRED DURING YOUR HOSPITAL STAY New Medications [id number], [address] [phone], [phone] sucralfate (Carafate 1 gram Tab) 1 Tablets By Mouth 4 times a day. Refills: 3. Medications to Continue with No Changes Other Medications alendronate (alendronate 70 mg Tab) TAKE 1 TABLET BY MOUTH 30 MINUTES BEFORE first food once a week. losartan (Cozaar 25 mg Tab) 1 Tablets By Mouth every day for 90 Days. stopping Lisinopril Starting Cozaar. Refills: 3. metoprolol (metoprolol 25 mg ER Tab) 1 Tablets By Mouth every day. Refills: 3. pantoprazole (Protonix 40 mg Tab-DR) 1 Tablets By Mouth 2 times a day. Refills: 0. ropinirole (ropinirole 0.5 mg Tab) take 1 tablet by mouth at bedtime., Restless legs PATIENT EDUCATION INFORMATION Instructions: Medication Leaflets: [facility] Patient Education - Texton 0 04-03-2023 Patient Education - Text Diverticulosis Many people have small pouches in their colon called diverticulum. The diverticulum bulge outward through weak spots in the colon. You could have one or more of these pouches in the colon. The condition of having these pouches in the colon is called diverticulosis or diverticular disease. Diverticulosis is usually diagnosed by tests to evaluate something else. For example, you may have had a colonoscopy to screen for colon cancer when the diverticulosis was found. Most people with diverticulosis do not have any discomfort or problems. If symptoms develop, they may include mild cramps, bloating, and constipation. A complication of this condition is called diverticulitis. This is when the diverticulum become inflamed and infected. How to treat diverticulosis: Increasing the amount of fiber in the diet may reduce symptoms of diverticulosis and prevent complications such as diverticulitis (infected diverticuli). Fiber keeps stool soft and lowers pressure inside the colon so that bowel contents can move through easily. You should eat 20 to 35 grams of fiber each day. The table below shows the amount of fiber in some foods that you can easily add to your diet. Adding fiber slowly may decrease the bloating and fullness sometimes felt with an immediate high fiber diet. The doctor may also recommend taking a fiber product such as Citrucel or Metamucil once a day. In the past people with diverticulosis were to avoid nuts, corn, and seeds. This has not been found to be true. If you find that certain foods create cramping or bloating, avoid that food. Foods high in fiber include: Fresh fruits, fresh vegetables, legumes (beans), whole wheat bread, bran muffins or cereal, and nuts. See the table below for examples of high fiber foods. Remember, your goal is 20-35 grams per day. Amount of fiber in different foods Food Serving Grams of fiber Fruits Apple (with skin) 1 medium apple 4.4 Banana 1 medium banana 3.1 Oranges 1 orange 3.1 Prunes 1 cup, pitted 12.4 Juices Apple, unsweetened, w/added ascorbic acid 1 cup 0.5 Grapefruit, white, canned, sweetened 1 cup 0.2 Grape, unsweetened, w/added ascorbic acid 1 cup 0.5 [place] 1 cup 0.7 Vegetables Cooked Green beans 1 cup 4.0 Carrots 1/2 cup sliced 2.3 Peas 1 cup 8.8 Potato (baked, with skin) 1 medium potato 3.8 Raw [place] (with peel) 1 cucumber 1.5 Lettuce 1 cup shredded 0.5 Tomato 1 medium tomato 1.5 Spinach 1 cup 0.7 Legumes Baked beans, canned, no salt added 1 cup 13.9 Kidney beans, canned 1 cup 13.6 Morales beans, canned 1 cup 11.6 Lentils, boiled 1 cup 15.6 Breads, pastas, flours Bran muffins 1 medium muffin 5.2 Oatmeal, cooked 1 cup 4.0 White bread 1 slice 0.6 Whole-wheat bread 1 slice 1.9 Pasta and rice, cooked Macaroni 1 cup 2.5 Rice, brown 1 cup 3.5 Rice, white 1 cup 0.6 Spaghetti (regular) 1 cup 2.5 Nuts Almonds 1/2 cup 8.7 Peanuts 1/2 cup 7.9 Chart from [facility] 2013. SEEK IMMEDIATE MEDICAL CARE IF: You develop abdominal (belly) pain. An oral temperature above _ 101? F__develops. Repeated vomiting occurs. Blood is being passed in stools (bright red or black tarry stools). You develop any bowel problems or changes which you have not had before. Extra Information: To learn how much fiber and other nutrients are in different foods, visit the [place] Department of Agriculture ([employer]) National Nutrient Database at: http://www.[employer]inapult.gov/f neisha/foodcomp/search/ Created using data from the USDA National Nutrient Database for Standard Reference. Available at http://www.[employer].[place].gov/f neisha/foodcomp/search/. Information adapted from: [facility]? Patient Information ?2009 Ak?Lex. UpCartasiteDaOxonica 2012 http://www.RPost/c ontents/diverticular-dise ypt-mxvwfq-ryy-basics Colonoscopy Care After Surgery Please read the instructions outlined below and refer to this sheet in the next few weeks. These discharge instructions provide you with general information on caring for yourself after you leave the hospital. Your doctor may also give you specific instructions. While your treatment has been planned according to the most current medical practices available, unavoidable complications occasionally occur. If you have any problems or questions after discharge, please call your doctor. ACTIVITY You may resume your regular activity, but move at a slower pace for the next 24 hours. Take frequent rest periods for the next 24 hours. Walking will help get rid of the air and reduce the bloated feeling in your abdomen (belly). No driving for 24 hours (because of the anesthesia (medicine) used during the test). You may shower. Do not sign any important legal documents or operate any machinery for 24 hours (because of the anesthesia used during the test). NUTRITION Drink plenty of fluids. You may resume your normal diet as instructed by your doctor. Begin with a light meal and progress (more content not included)... Normal [facility] Progress Note-Physicianon Progress Note-Physician Patient: CHLOE CHESTER Age: 67 years Sex: Female : 1955 Associated Diagnoses: None Author: Lb Wu Jr., DO Postoperative Information Postoperative disposition: Postoperative disposition: Home. Optimetrix number: Optimetrix number [id number]. Anesthetic utilized: General. Physical Examination Vital Signs 04/03/2023 10:40 EDT Heart Rate Monitored 69 bpm Respiratory Rate Monitored 32 br/min Systolic Blood Pressure 100 mmHg Diastolic Blood Pressure 62 mmHg SpO2 96 % 04/03/2023 10:30 EDT Heart Rate Monitored 65 bpm Respiratory Rate Monitored 20 br/min Systolic Blood Pressure 93 mmHg Diastolic Blood Pressure 56 mmHg LOW SpO2 95 % 04/03/2023 10:25 EDT Heart Rate Monitored 69 bpm Respiratory Rate Monitored 17 br/min Systolic Blood Pressure 102 mmHg Diastolic Blood Pressure 59 mmHg LOW SpO2 94 % 04/03/2023 10:20 EDT Heart Rate Monitored 80 bpm Respiratory Rate Monitored 24 br/min Systolic Blood Pressure 94 mmHg Diastolic Blood Pressure 64 mmHg Blood Pressure Location Left arm SpO2 93 % 04/03/2023 10:15 EDT Temperature Temporal Artery 36.0 DegC LOW Heart Rate Monitored 86 bpm Respiratory Rate Monitored 19 br/min Systolic Blood Pressure 100 mmHg Diastolic Blood Pressure 59 mmHg LOW Blood Pressure Location Left arm SpO2 94 % Pain Assessment: Controlled. General: Awake, Alert, Appropriate. Respiratory: Adequate air exchange, Non-labored. Cardiovascular: Stable, Normal peripheral perfusion. Neurological: Neurologic exam at baseline. No changes.. Assessment Anesthetic outcome No anesthetic complications noted. No nausea/vomiting. Review / Management Condition: Stable. Plan Transfer/Discharge: Transfer/Discharge Discharge when meets criteria ( From PACU to Ambulatory Surgery Unit, and To home ). Normal [facility] Comment on above: Result Comment: Elec tronically Signed By: Lb Wu Jr., DO\.br\Date and Time Signed: 04/03/23 10:53 EDT Progress Note-Physician Patient: CHLOE CHESTER Age: 67 years Sex: Female : 1955 Associated Diagnoses: None Author: Lb Wu Jr., DO Preoperative Information Anesthesia history: Patient history: No prior anesthetic problems. Informed consent: Signed by patient. Re-evaluation prior to induction: Initial evaluation reviewed: No significant change. Review of Systems Respiratory: Negative except as documented in history of present illness. Cardiovascular: Negative except as documented in history of present illness. Health Status Allergies: Allergic Reactions (Selected) Severity Not Documented Sulfa drugs- Unknown. Nonallergic Reactions (Selected) Severity Not Documented Lisinopril- Coughing., Allergies (2) Active Reaction lisinopril Coughing sulfa drugs unknown Current medications: (Selected) Inpatient Medications Ordered Lactated Ringers IV Radha 1000 mL 1,000 mL: 1,000 mL, IV, 100 mL/hr, Routine, Start date 04/03/23 9:36:00 EDT, 10 hour(s), Total volume (mL): 1,000, 80 kg, 1.84, m2 Sodium Chloride 0.9% IV Radha 1000 mL 1,000 mL: 1,000 mL, IV, 20 mL/hr, Routine, Start date 04/03/23 7:10:00 EDT, 50 hour(s), Total volume (mL): 1,000 Prescriptions Prescribed Cozaar 25 mg Tab: 25 mg = 1 tab(s), Oral, Daily, stopping Lisinopril Starting Cozaar, X 90 day(s), # 90 tab(s), Refills(s) 3, Pharmacy: [id number], 152, cm, 11/05/22 11:35:00 EST, Height/Length Dosing, 76, kg, 11/05/22 11:35:00 EST, Weight Dosing Protonix 40 mg Tab-DR: 40 mg = 1 tab(s), Oral, BID, # 120 tab(s), Refills(s) 0, Pharmacy: [id number], 152.4, cm, 04/01/21 7:20:00 EDT, Height/Length Dosing, 85.5, kg, 04/01/21 7:20:00 EDT, Weight Dosing metoprolol 25 mg ER Tab: 25 mg = 1 tab(s), Oral, Daily, # 90 tab(s), Refills(s) 3, Pharmacy: [id number], 152, cm, 11/05/22 11:35:00 EST, Height/Length Dosing, 76, kg, 11/05/22 11:35:00 EST, Weight Dosing Documented Medications Documented alendronate 70 mg Tab: TAKE 1 TABLET BY MOUTH 30 MINUTES BEFORE first food once a week, Prophylaxis ropinirole 0.5 mg Tab: take 1 tablet by mouth at bedtime, Other (see comment), Home Medications (5) Active alendronate 70 mg Tab Cozaar 25 mg Tab 25 mg = 1 tab(s), Oral, Daily metoprolol 25 mg ER Tab 25 mg = 1 tab(s), Oral, Daily Protonix 40 mg Tab-DR 40 mg = 1 tab(s), Oral, BID ropinirole 0.5 mg Tab , Medications (2) Active Scheduled: (0) Continuous: (2) Lactated Ringers 1,000 mL 1,000 mL, IV, 100 mL/hr Sodium Chloride 0.9% 1,000 mL 1,000 mL, IV, 20 mL/hr PRN: (0) Problem list: All Problems BMI 34.0-34.9,adult / SNOMED CT 257849977 / Confirmed Chest pain due to GERD / SNOMED CT 42675490 / Confirmed Chronic GERD / SNOMED CT 710955340 / Confirmed Dysphagia / SNOMED CT 84760993 / Confirmed Epigastric pain / SNOMED CT 510674623 / Confirmed Gastritis / SNOMED CT 4052645 / Confirmed H/O: osteoarthritis / SNOMED CT 135256070 / Confirmed HTN (hypertension) / SNOMED CT 2709326595 / Confirmed Osteoporosis / SNOMED CT 104859120 / Confirmed Regurgitation of stomach contents / SNOMED CT 675562955 / Confirmed Screening for malignant neoplasm of colon / SNOMED CT 397014884 / Confirmed Unilateral primary osteoarthritis, right knee / SNOMED CT 5987376668 / Confirmed Vertigo / SNOMED CT 8728870975 / Confirmed Resolved: Appendicitis / SNOMED CT 656803406 Resolved: Cough / SNOMED CT 73265431 Resolved: GERD - Gastro-esophageal reflux disease / SNOMED CT 9122529061 Resolved: Sinus drainage / SNOMED CT 861815108 Canceled: GERD with apnea / SNOMED CT 8837525210 Histories Past Medical History: Resolved GERD - Gastro-esophageal reflux disease (7087600397): Resolved. Appendicitis (099543533): Resolved. Cough (95881543): Resolved. Sinus drainage (285489560): Resolved. Procedure history: Cardiac catheterization procedure (68904423) on 09/17/2021 at 65 Years. EGD - Esophagogastroduodenoscop y (7872606821) on 04/01/2021 at 65 Years. Appendectomy (694588675) on 10/19/2017 at 62 Years. Ureterorenoscopy with fragmentation and removal of kidney stone (4295016114). EGD - Esophagogastroduodenoscop y (2831821501). Comments: 03/08/2021 10:09 EDT - Lnadon MCKEON, Helio L during early 40s Tonsillectomy with adenoidectomy (29532299). Arthroplasty of knee (25196929). Arthroplasty of knee (32529953). Social History Social & Psychosocial Habits Alcohol 09/18/2019 Use: Current Comment: denies - 09/18/2019 13:18 - Rosina Bales RN 09/07/2020 Risk Assessment: Denies Alcohol Use Comment: Denmario alberto. - 09/01/2021 23:12 - Nicky Ospina RN Substance Abuse 09/07/2020 Risk Assessment: Denies Substance Abuse Comment: Lexis. - 09/01/2021 23:12 - Nicky Ospina RN Tobacco 09/18/2019 Risk Assessment: Denies Tobacco Use 02/20/2023 Tobacco Use: Never (less than 100 in l Smokeless tobacco use: Never Comment: Denmario alberto. - 09/01/2021 23:12 - Nicky Ospina RN (more content not included)... [facility] Comment on above: Result Comment: Elec tronically Signed By: Lb Wu Jr., DO\.br\Date and Time Signed: 04/03/23 09:37 EDT Consent for Procedure/Surger yon 03-17-2023 Consent for Procedure/Surgery [id number]#1.00CD:12 7 [facility] Consent for Treatmenton 02-18 Consent for Treatment [id number]#1.00CD:1 27 [facility] Discharge Instructionson Discharge Instructions [id number]#1.00CD:12 7 [facility] IntraOperative Documentson 0 03-17-2023 IntraOperative Documents [id number]#[id number]:12 7 Normal [facility] Main OR Intraoperative Recor don 03-17-2023 Main OR Intraoperative Record IntraOp Document Type FTPM Summary Primary Physician: Demar Trammell MD Finalized Date/Time: 03/17/23 11:36:22 Pt. Name: CHLOE AGARWAL Arlen Powell/Sex: 1955 Female Med Rec #: [id number] Physician: Demar Trammell MD Financial #: [id number] Pt. Type: P Room/Bed: / Admit/Disch: 03/17/23 10:05:44 - Institution: Case Times FTPM Entry 1 Patient Times In Room 03/17/23 11:30:00 Out Room 03/17/23 11:36:00 Procedure Times Start 03/17/23 11:33:00 Stop 03/17/23 11:35:00 Anesthesia Times Last Modified By: Antoinette Erickson RN 03/17/23 11:35:06 Case Attendance FTPM Entry 1 Entry 2 Entry 3 Case Attendee Valeri CANTRELL, Demar Erickson RN, Antoinette Wilkes RN, Velma Garcia Role Performed Surgeon - Primary School Photographs Detailer - Primary Scrub - Primary Time In 03/17/23 11:30:00 03/17/23 11:30:00 03/17/23 11:30:00 Time Out 03/17/23 11:36:00 03/17/23 11:36:00 03/17/23 11:36:00 Procedure TRANSFORAMINAL EPIDURAL TRANSFORAMINAL EPIDURAL TRANSFORAMINAL EPIDURAL STEROID STEROID STEROID INJECTIO(Bilateral) INJECTIO(Bilateral) INJECTIO(Bilateral) Comments Last Modified By: Georgina DUMONT, Antoinette Erickson RN, Antoinette Walker RN 03/17/23 11:35:07 03/17/23 11:35:07 03/17/23 11:35:07 Entry 4 Case Attendee Antionette Carmona Role Performed Freight Breaker Time In 03/17/23 11:30:00 Time Out 03/17/23 11:36:00 Procedure TRANSFORAMINAL EPIDURAL STEROID INJECTIO(Bilateral) Comments Last Modified By: Antoinette Erickson RN 03/17/23 11:35:07 Perioperative Protocols FTPM Pre-Care Text: Implements protective measures prior to operative or invasive procedure, confirms identity before the operative or invasive procedure, verifies operative procedure, surgical site, and laterality Entry 1 Procedure(s) TRANSFORAMINAL EPIDURAL Patient Identity Birthday, ID Band STEROID Verified (select at Check, Patient INJECTIO(Bilateral) least 2): Participation Consents / H and P HandP, Surgery/Procedure Operative Site Present Verified Consent Marking Verified Surgical Site Yes Laterality Verified Yes Verified Procedure Verified Yes Correct Patient Yes Position Verified Availability Equipment, Medication, Prep Dry Yes Verified (If X-ray Applicable) PreOp Antibiotic No Time Out Antoinette Erickson RN, Myers RN, Valeri Moura MD, Kristine Hylton Amy Time Out Complete 03/17/23 11:30:00 Outcomes Met? Yes Last Modified By: Antoinette Erickson RN 03/17/23 11:30:53 Post-Care Text: The patient is free from signs and symptoms of injury caused by extraneous objects Allergy Information FTPM Pre-Care Text: Verifies allergies Entry 1 Allergies Reviewed? Yes Allergies Reviewed Self/Patient With Outcomes Met? Yes Last Modified By: Antoinette Erickson RN 03/17/23 10:43:39 Post-Care Text: The patient received appropriate medication(s) safely administered during the perioperative period Surgical Procedures FTPM Entry 1 Procedure Description Procedure TRANSFORAMINAL EPIDURAL Modifiers Bilateral STEROID INJECTION Surgeon Description L5/S1 TFESI Primary Procedure Yes Primary Surgeon Demar Trammell MD Start 03/17/23 11:33:00 Stop 03/17/23 11:35:00 Anesthesia Type None Surgical Service Pain Management Wound Class 1 - Clean Last Modified By: Antoinette Erickson RN 03/17/23 11:35:09 General Case Data FTPM Pre-Care Text: Classifies surgical wound, implements aseptic technique, initiates traffic control Entry 1 Case Information OR Pain Proc Room Case Level Level 2 Wound Class 1 - Clean Specialty Pain Management Preop Diagnosis M54.16 Postop Same As Preop Yes Postop Diagnosis M54.16 Outcomes Met? Yes Last Modified By: Antoinette Erickson RN 03/17/23 11:31:03 Post-Care Text: The patient is free from signs and symptoms of infection Skin Assessment (Pre Procedure) FTPM Pre-Care Text: Implements protective measures to prevent skin/ tissue injury due to thermal or mechanical sources Evaluates for signs and symptoms of physical injury to skin and tissue Entry 1 Skin Integrity Intact, Sanders, Warm, and Skin Abnormality No Dry Outcomes Met? Yes Last Modified By: Antoinette Erickson RN 03/17/23 10:43:48 Post-Care Text: The patient is free from signs and symptoms of injury caused by extraneous objects Patient Positioning FTPM Pre-Care Text: Identifies physical alterations that require additional precautions for procedure-specific positioning, verifies presence of prosthetics or corrective devices, positions the patient, evaluates the patient for signs and symptoms of injury as a result of positioning Entry 1 Procedure TRANSFORAMINAL EPIDURAL Body Position Prone STEROID INJECTIO(Bilateral) Feet Uncrossed? Yes Left Arm Position Resting at Side Right Arm Position Resting at Side Left Leg Position Extended Right Leg Position Extended Positioning Device Pillow Under Head Large, Safety Strap, (more content not included)... [facility] Main OR Preoperative Recordo n 03-17-2023 Main OR Preoperative Record Holding Area Document Type FTPM Summary Primary Physician: Demar Trammell MD Finalized Date/Time: 03/17/23 11:09:08 Pt. Name: ANYCHLOE/Sex: 1955 Female Med Rec #: [id number] Physician: Demar Trammell MD Financial #: [id number] Pt. Type: P Room/Bed: / Admit/Disch: 03/17/23 10:05:44 - Institution: Case Times Holding FTPM Pre-Care Text: Verifies consent for planned procedure, identifies individual values and wishes concerning care, includes family members in perioperative teaching Secures patient's records' belongings, and valuables, maintains patient's dignity and privacy, and maintains patient confidentiality Entry 1 In Holding 03/17/23 11:07:00 Outcomes Met? Yes Last Modified By: Virgie Horne RN 03/17/23 11:07:44 Post-Care Text: The patient participates in decisions affecting his or her perioperative plan of care The patient's right to privacy is maintained Surgery Checklist FTPM Entry 1 Patient Birthday, ID Band Procedure History and Physical, Identification: Check, Patient Verification: Surgical Consent, With Participation Patient NPO after Midnight: Yes Date/Time: 03/17/23 11:07:00 Results Reviewed N/A Personal Items N/A Comments: Comment: Complaints of Pain: Yes Pain Comment: 01/26 right buttock Operative Site Yes Marked By: Dr. Trammell Marking: Location: bilateral L5-S1 Availability Equipment, X-Ray Verified: Does Patient Smoke No Patient states Yes Comment - Adult -Gilberto postop adult Supervision supervision available Case Cancelled in No Holding Area see comments below for reason Last Modified By: Virgie Horne RN 03/17/23 11:09:06 Finalized By: Virgie Horne RN Document Signatures Signed By: Virgie Horne RN 03/17/23 11:09 [facility] Office/Clinic Note-Nurseon 0 03-17-2023 Office/Clinic Note-Nurse Pt c/o feeling wobbly when standing . Pt assisted back to the cart. Pt assisted back to cart and pt given snack. Pt reports feeling better after eating chips. Pt able to stand @ cartside. Pt escorted out in w/c. [facility] Comment on above: Result Comment: Elec tronically Signed By: Raul DUMONT, Tierra\.br\Date and Time Signed: 03/17/23 11:51 EDT Operative Reporton 3 Operative Report Patient: CHLOE AGARWAL Age: 67 years Sex: Female : 1955 Associated Diagnoses: None Author: Demar Trammell MD Procedure Procedure: Transforaminal Epidural Steroid Injections with Fluoroscopic Guidance at Bilateral L5/S1 Diagnosis: Lumbar Radiculitis Anesthesia: local The patient was identified in the pre-op area. The procedure, including risks benefits and alternatives was discussed with the patient. The patient agreed to proceed. Informed consent was obtained and the site(s) marked. The patient was brought to the procedure room and placed in the prone position with padding under the abdomen to reduce lumbar lordosis. Time out was performed. The back was prepped and draped in sterile fashion with Chloraprep. Skin and subcutaneous tissues were anesthetized with 6 mL of Lidocaine 2% through a 25G needle. 22G spinal needles were advanced under fluoroscopic guidance through the bilateral L5/S1 foramina into the epidural space. Isovue 0.5mL was injected under live fluoroscopy at each level which demonstrated appropriate epidural spread without vascular uptake. After confirmation of negative aspiration, a total of 1mL of 2% PF lidocaine, 1mL of PF normal saline, and 10mg of PF dexamethasone (10mg/1mL) were injected in equally divided doses through the 2 needles. The needles were removed and a bandage applied. The patient was brought to the recovery area in stable condition and then monitored for an appropriate period of time. The patient was discharged home in good condition with post-procedure instructions. No apparent complications. Epidural injection procedure Physical Exam: vital signs Vital Signs 03/17/2023 10:56 EDT Heart Rate Monitored 89 bpm SpO2 100 % 03/17/2023 10:56 EDT Systolic Blood Pressure 138 mmHg Diastolic Blood Pressure 87 mmHg Mean Arterial Pressure, Monitered 104 mmHg 03/17/2023 10:56 EDT Temperature Oral 36.7 DegC 03/17/2023 10:56 EDT Respiratory Rate 12 br/min LOW . Normal [facility] Comment on above: Result Comment: Elec tronically Signed By: Valeri CANTRELL, Demar Leal\.br\Date and Time Signed: 03/17/23 11:34 EDT RAD - CT Reporton 03-12-2023 RAD - CT Report [id number]#1.00CD:12 7 Normal [facility] Lab Reportson 03-04-2023 Lab Reports [id number]#1.00CD:12 7 Normal [facility] CREATININEon 03-03-2023 Creatinine [Mass/Vol] 0.89 mg/dL Normal 0.55-1.02 [facility] Comment on above: Performed By: #### C LING #### [facility] [address] [place] [address] Dr. Lorraine Soctt EGFR-AF TURKMEN >60 Normal >=60 [facility] Comment on above: Performed By: #### C LING #### [facility] [address], [place] [address] Dr. Lorraine Scott EGFR-NON AF TURKMEN >60 Normal >=60 [facility] Comment on above: Performed By: #### C LING #### [facility] [address], [place] [address] ABD/PELV W CONon 03-03-20 CT ABD/PELV W CON EXAMINATION: CT ABD/ PELV W CON HISTORY: Left upper quadrant pain ; chronic epigastric pain, COMPARISON: No relevant comparison available. TECHNIQUE: Axial, Coronal, and Sagittal images were obtained without and/or with IV contrast as indicated by examination type. Dose reduction techniques were achieved by using automated exposure control and/or adjustment of mA and/or kV according to patient size and/or use of iterative reconstruction technique. FINDINGS: LUNG BASES: No visible pulmonary or pleural disease. LIVER: No enlargement, atrophy, suspicious density, or significant focal lesion. BILIARY: No dilatation or calcification. PANCREAS: No lesion, fluid collection, or abnormal duct dilatation. SPLEEN: No enlargement or focal lesion. ADRENALS: No mass or enlargement. KIDNEYS: No mass, obstruction, or calcification. BOWEL/MESENTERY: Numerous prominent diverticula involving the sigmoid colon without acute inflammatory changes. No visible mass, obstruction, or bowel wall thickening. AORTA/VASCULAR: No aneurysm or dissection. RETROPERITONEUM: No mass or adenopathy. LYMPH NODES: No adenopathy. URINARY BLADDER: No visible focal wall thickening, lesion, or calculus. PELVIC ORGANS: Calcification within left uterine body, likely within a leiomyoma. Calcification within left ovary suggesting a dermoid. ABDOMINAL WALL: No mass or hernia. BONES: 8 mm anterior listhesis of L5 on S1 secondary to bilateral pars interarticularis defects and complete loss of disc height. OTHER: Negative. IMPRESSION: 1.No acute or suspicious findings to account for patient's epigastric or left upper quadrant pain. 2.Sigmoid diverticulosis. 3.Grade 2 anterior listhesis and marked degenerative disc disease of L5-S1. Electronically authenticated by: RYAN VAZQUEZ Date: 2023-03-03 10:08 Normal [facility] Patient Correspondenceon Patient Correspondence [id number]#1.00CD:1 27 Normal [facility] Facesheeton 02-24-2023 Facesheet [id number]#1.00CD:12 7 Normal [facility] Consent for Procedure/Surger yon 02-23-2023 Consent for Procedure/Surgery [id number]#1.00CD:12 7 Normal [facility] Consent for Surgery/Procedur e Officeon 02-23-2023 Consent for Surgery/Procedure Office [id number]#1.00CD: 127 Normal [facility] Consultation Noteon 02-24-20 Consultation Note Patient: CHLOE AGARWAL Age: 67 years Sex: Female : 1955 Associated Diagnoses: None Author: Demar Trammell MD Basic Information Accompanied by: Spouse. Source of history: Self. Referral source: Yarelis Mcghee MD. History limitation: None. Chief Complaint 02/23/2023 12:32 EDT Lower right back and buttuck pain History of Present Illness 67-year-old female with significant low back pain that radiates in the posterior aspect of the right greater than left leg for 2 to 3 years. No inciting injury or trauma. Pain radiates down the posterior aspect of the legs. She has a hard time sleeping and gets cramps in the legs. Standing walking also exacerbates the pain. Sitting relieves it. She has used Tylenol and ibuprofen regularly for the past several years with mild relief. She has recently completed a physician guided physical therapy program that has occurred over the past 8 weeks with no significant benefit. She did exercises that include Alonzo maneuvers. The patient does have a history of knee replacements and spoke with her orthopedic surgeon who recommended she seek care in pain management. She was referred here to discuss further treatment options. Denies red flag symptoms. Pain rates up to an 8/10 on the visual analog scale. It is described as sharp shooting and aching. ELVIS is 48. Review of Systems Complete review of systems obtained and reviewed. Form scanned. Pertinent findings are noted in the HPI. Health Status Allergies: Allergic Reactions (All) Severity Not Documented Sulfa drugs- Unknown. Nonallergic Reactions (All) Severity Not Documented Lisinopril- Coughing. Current medications: Home Medications (5) Active alendronate 70 mg Tab Cozaar 25 mg Tab 25 mg = 1 tab(s), Oral, Daily metoprolol 25 mg ER Tab 25 mg = 1 tab(s), Oral, Daily Protonix 40 mg Tab-DR 40 mg = 1 tab(s), Oral, BID ropinirole 0.5 mg Tab Problem list: All Problems BMI 34.0-34.9,adult / SNOMED CT 154337113 / Confirmed Chest pain due to GERD / SNOMED CT 29184413 / Confirmed Chronic GERD / SNOMED CT 280071808 / Confirmed Dysphagia / SNOMED CT 42076183 / Confirmed Epigastric pain / SNOMED CT 490751011 / Confirmed Gastritis / SNOMED CT 6532997 / Confirmed H/O: osteoarthritis / SNOMED CT 719355391 / Confirmed HTN (hypertension) / SNOMED CT 2236493569 / Confirmed Osteoporosis / SNOMED CT 294516243 / Confirmed Regurgitation of stomach contents / SNOMED CT 067476571 / Confirmed Screening for malignant neoplasm of colon / SNOMED CT 595703273 / Confirmed Unilateral primary osteoarthritis, right knee / SNOMED CT 3723534413 / Confirmed Vertigo / SNOMED CT 2889521847 / Confirmed Histories Past Medical History: Resolved GERD - Gastro-esophageal reflux disease (5842883457): Resolved. Appendicitis (020657480): Resolved. Cough (63892418): Resolved. Sinus drainage (073201329): Resolved. Family History: Acute congestive heart failure Mother Father Hypertension Sister Procedure history: Cardiac catheterization procedure (23150944) on 09/17/2021 at 65 Years. EGD - Esophagogastroduodenoscop y (5174071417) on 04/01/2021 at 65 Years. Appendectomy (937810812) on 10/19/2017 at 62 Years. Ureterorenoscopy with fragmentation and removal of kidney stone (0078587863). EGD - Esophagogastroduodenoscop y (3554909059). Comments: 03/08/2021 10:09 EDT - Helio Navarrete MA during early 40s Tonsillectomy with adenoidectomy (81363166). Arthroplasty of knee (01277966). Arthroplasty of knee (38672591). Social History Social & Psychosocial Habits Alcohol 09/18/2019 Use: Current Comment: denies - 09/18/2019 13:18 - Rosina Bales RN 09/07/2020 Risk Assessment: Denies Alcohol Use Comment: Denies. - 09/01/2021 23:12 - Nicky Ospina RN Substance Abuse 09/07/2020 Risk Assessment: Denies Substance Abuse Comment: Denies. - 09/01/2021 23:12 - Nicky Ospina RN Tobacco 09/18/2019 Risk Assessment: Denies Tobacco Use 02/20/2023 Tobacco Use: Never (less than 100 in l Smokeless tobacco use: Never Comment: Denmario alberto. - 09/01/2021 23:12 - Nicky Ospina RN Physical Examination Vital Signs (last 24 hrs) Last Charted Heart Rate Peripheral 62 bpm (FEBRUARY 23:) SBP H 150mmHg (FEBRUARY 23:) DBP H 97mmHg (FEBRUARY 23:) Weight 79.8 kg (FEBRUARY 23:) BMI 34.54 (FEBRUARY 23:) Constitutional: No acute distress. Well-nourished. Well-developed. Eyes: No exudate or deformity. Extraocular muscles are intact. Ears, nose, mouth, and throat: Ears and nose are without deformity. Wears a mask. Neck: No noticeable masses, tracheal deviation, or asymmetry. No thyromegaly on inspection. Respiratory: No gasping or shortness of breath. No accessory muscle use. Cardiovascular: Pulses in extremities are palpable. No noticeable lower extremity edema or varicosities. Gastrointestinal (abdomen): No distention. No pain with palpation. Lympha (more content not included)... Normal [facility] Comment on above: Result Comment: Elec tronically Signed By: Valeri CANTRELL, Demar Leal\.br\Date and Time Signed: 02/23/23 13:22 EDT HIPAA Forms Officeon 023 HIPAA Forms Office [id number]#1.00CD:12 7 [facility] Legal Correspondence Officeo n 02-23-2023 Legal Correspondence Office [id number]#1.00CD:12 7 [facility] Legal Correspondence Office [id number]#1.00CD:12 7 [facility] Office/Clinic Note-Physician on 02-23-2023 Office/Clinic Note-Physician [id number]#1.00CD:12 7 [facility] Patient Correspondenceon Patient Correspondence [id number]#1.00CD:12 7 [facility] Patient Correspondence [id number]#1.00CD:12 7 [facility] Patient Correspondence [id number]#1.00CD:12 7 [facility] Patient Correspondence [id number]#1.00CD:12 7 [facility] Patient Correspondence [id number]#1.00CD:12 7 [facility] Patient Correspondence [id number]#1.00CD:12 7 [facility] Patient History Officeon Patient History Office [id number]#1.00CD:12 7 [facility] Ambulatory Visit Summaryon 0 02-20-2023 Ambulatory Visit Summary CHLOE AGARWAL :1955 Visit Date:02/20/2023 Ambulatory Visit Instructions Your Care Team Attending Physician - JOSE RAMON CANTRELL, Michael Billingsley Primary Care Physician - Yarelis Mcghee MD This Is Your Medications List Contact prescribing physician if questions or concerns losartan (Cozaar 25 mg Tab) metoprolol (metoprolol 25 mg ER Tab) pantoprazole (Protonix 40 mg Tab-DR) Procedures Performed Cardiac catheterization procedure (09/17/2021), EGD - Esophagogastroduodenoscop y (04/01/2021), Appendectomy (10/19/2017), Arthroplasty of knee, Arthroplasty of knee, EGD - Esophagogastroduodenoscop y, Tonsillectomy with adenoidectomy, Ureterorenoscopy with fragmentation and removal of kidney stone. Discharge Vitals Heart Rate (Peripheral) 72 Respiratory Rate 16 Blood Pressure 122/84 Height 152 cm Height 60 in Weight 80 kg Weight 176 lb BMI 34.63 What to do next Scheduled Follow-Up Appointments Thursday 12:30 PM EDT With: Valeri CANTRELL, Demar Leal Where: [facility] Thursday 9:00 AM EDT With: Vicky LAST CNP Where: [facility] Medications What How Much When Why Instructions Unchanged losartan (Cozaar 25 mg Tab) 1 Tablets By Mouth Every day Duration: 90 Days stopping Lisinopril Starting Cozaar Contact prescribing physician if questions or concerns Unchanged metoprolol (metoprolol 25 mg ER Tab) 1 Tablets By Mouth Every day Contact prescribing physician if questions or concerns Unchanged pantoprazole (Protonix 40 mg Tab-DR) 1 Tablets By Mouth 2 times a day Chronic GERD Contact prescribing physician if questions or concerns Allergies lisinopril (Coughing) sulfa drugs (unknown) Problems Ongoing - Any problem that you are currently receiving treatment for. BMI 34.0-34.9,adult Chronic GERD Gastritis HTN (hypertension) Osteoporosis Regurgitation of stomach contents Unilateral primary osteoarthritis, right knee Vertigo Historical - Any problem that you are no longer receiving treatment for. Appendicitis Cough GERD - Gastro-esophageal reflux disease Sinus drainage Normal [facility] Outside Records Officeon Outside Records Office [id number]#1.00CD:1 27 Normal [facility] Radiology Outside Office Defense Travel Administrator yon 02-20-2023 Radiology Outside Office Copy [id number]#1.00CD:1 27 Normal [facility] RAD - Ultrasound Reporton RAD - Ultrasound Report [id number]#1.00CD:12 7 Normal [facility] US SINGLE QUAD RT UPPERon US SINGLE QUAD RT UPPER EXAMINATION: US SINGLE QUAD RT UPPER HISTORY: Right upper quadrant pain COMPARISON: Ultrasound right upper quadrant 09/09/2021 TECHNIQUE: Transabdominal evaluation of the right upper quadrant. FINDINGS: LIVER: Normal size and echotexture. Color Doppler demonstrates patent hepatic veins. PORTAL VEIN: Duplex Doppler demonstrates normal hepatopetal flow pattern with flow velocity averaging 39 cm/s. GALLBLADDER: 2.5 cm mobile stone within gallbladder. No wall thickening or free fluid. Negative sonographic Fuller's sign. BILIARY: No abnormal dilation or stones. Common bile duct diameter is within normal limits. PANCREASE: No visible mass, abnormal atrophy, or duct dilation. KIDNEY: No hydronephrosis. No visible mass or stones. Size: 8.2 x 4.7 x 3.4 cm IMPRESSION: 1. Cholelithiasis; no ultrasound evidence of acute cholecystitis. Electronically authenticated by: RYAN VAZQUEZ Date: 2023-02-09 11:57 Normal [facility] Physician Referralon 023 Physician Referral [id number]#1.00CD:12 7 Normal [facility] Covid-19 PCR (CVDTB)on 10-19 SARS-CoV-2 (COVID-19) RNA SHAHEEN+probe Ql (Unsp spec) Detected Abnormal NOT DETECTED [facility] Comment on above: Result Comment: This test is not yet approved or cleared by the [place] FDA. When there are no FDA-approved or cleared tests available, and other criteria are met, FDA can make tests available under an emergency access mechanism called an Emergency Use Authorization (EUA). The EUA for this test is supported by the [place] of Health and Human Service's declaration that circumstances exist to justify the emergency use of in vitro diagnostics for the detection and/or diagnosis of the virus that causes COVID-19. This EUA will remain in effect for the duration of the COVID-19 declaration justifying emergency of IVDs, unless it is terminated or revoked by the FDA (after which the test may no longer be used). Performed By: #### C VDTB #### [facility] [address] [place] [address] Dr. Lorraine Scott INFLUENZA A AND B AGon 11-05 [facility] SEE BELOW Normal [facility] Comment on above: Result Comment: Nega tive for Flu A protein angiten. Infection due to Flu A cannot be ruled out. Flu A angiten in the sample may be below the detection limit of the test. Performed By: #### I NFLUAB #### [facility] [address] [place] [address] Dr. [facility] BEL[facility] Normal [facility] Comment on above: Result Comment: Nega tive for Flu B protein antigen. Infection due to Flu B cannot be ruled out. Flu B antigen in the sample may be below the detection limit of the test. Performed By: #### I NFLUAB #### [facility] [address] [place] [address] Dr. Lorraine Scott INFLUENZA A AG Negative Normal NEGATIVE SEE COMMENT [facility] Comment on above: Performed By: #### I NFLUAB #### [facility] [address] [place] [address] Dr. Lorraine Scott INFLUENZA B AG Negative Normal NEGATIVE SEE COMMENT [facility] Comment on above: Performed By: #### I NFLUAB #### [facility] [address] [place] [address] Dr. Lorraine Scott MG MAMM SCREEN 3D LAURA CADon 10-22-2022 MG MAMM SCREEN 3D LAURA CAD Patient: CHLOE AGARWAL Exam Date: 10/22/2022 : 1955 Gender:F Ordering : DR JUAN CARLOS GIFFORD . Admission #: [id number] Family : Order #: [id number] CLICK HERE TO VIEW EXAM RADIOLOGY REPORT PROCEDURE: MAMMOGRAM SCREENING 3D BILATERAL CAD COMPARISON: MG MAMM LAURA DIAG W CAD, 09/20/2019. MG MAMM SCREEN LAURA W CAD, 03/29/2018. MG MAMM LAURA DIAG W CAD, 06/26/2021. US BREAST LEFT LIMITED, 06/26/2021. INDICATIONS: Screening mammography Calculator Name NCI Breast Cancer Risk Assessment Tool 5 Year Breast Cancer Risk Not Reported. Lifetime Breast Cancer Risk Not Reported. Personal Breast Cancer No Personal Ovarian Cancer No Treatments None Family Cancers None LOCATION: [facility] BREAST COMPOSITION: Scattered areas fibroglandular density. FINDINGS: DIAGNOSTIC CATEGORY 2--BENIGN FINDING: RIGHT BREAST: No significant suspicious finding. Scattered benign-appearing calcifications are present. No significant change has occurred. LEFT BREAST: No significant suspicious finding. Scattered benign-appearing calcifications are present. No significant change has occurred. RECOMMENDATIONS: ROUTINE MAMMOGRAM AND CLINICAL EVALUATION IN 12 MONTHS. PLEASE NOTE: A NORMAL MAMMOGRAM DOES NOT EXCLUDE THE POSSIBILITY OF BREAST CANCER. A CLINICALLY SUSPICIOUS PALPABLE LUMP SHOULD BE BIOPSIED. Dictated by: Ryan Vazquez M.D. on 10/23/2022 at 08:38 Approved by: Ryan Vazquez M.D. on 10/23/2022 at 08:41 Normal [facility] XR DEXA BONE DENSITYon 10-22 XR DEXA BONE DENSITY EXAMINATION: XR DEX A BONE DENSITY, 10/22/2022 8:05 AM EST HISTORY: Menopause present COMPARISON: None. TECHNIQUE: Dual-energy X-ray absorptiometry (DEXA) bone density study performed for the axial skeleton. FINDINGS: SPINE ANALYSIS: Average bone mineral density is 1.072 g/cm2. T-score (standard deviation relative to young adult mean): -0.9 . HIP ANALYSIS: Lowest bone mineral density is within the left femoral trochanter, 0.477 g/cm2. T-score (standard deviation relative to young adult mean): -3.2 . Bone mineral density within the left femoral neck is 0.718; T score of -2.3. IMPRESSION: World Mark Organization Classification: Osteoporosis - High Fracture Risk Electronically authenticated by: RYAN VAZQUEZ Date: 2022-10-22 09:12 Normal [facility] PAP ACOG PANEL 2: 30 to 65on 10-03-2022 . . Normal [facility] Comment on above: Result Comment: Perf ormed at: WB Performed By: #### [id number] #### [facility] [address] [address] [address] Lorraine Scott Age Gdln ACOG Testing 30-65 Normal [facility] Comment on above: Performed By: #### [id number] #### [facility] [address] [place] [address] Dr. Lorraine Scott DIAGNOSIS: Comment Normal [facility] Comment on above: Result Comment: NEGA TIVE FOR INTRAEPITHELIAL LESION OR MALIGNANCY. CELLULAR CHANGES ASSOCIATED WITH ATROPHY ARE PRESENT. Performed at: WB Performed By: #### 4 [id number] #### [facility] [address] [address] [address] Lorraine Scott HPV Aptima Negative Normal Negative [facility] Comment on above: Result Comment: This nucleic acid amplification test detects fourteen high-risk HPV types (16,18,31,33,35,39,45,51,52,56,58,59,66,68) without differentiation. Performed at: =G Performed By: #### 4 [id number] #### [facility] [address] [place] [address] Dr. Lorraine Scott HPV Genotype Reflex Comment Normal [facility] Comment on above: Result Comment: Crit eria not met, HPV Genotype not performed. Performed at: WB Performed By: #### 4 [id number] #### [facility] [address] [place] [address] Dr. Lorraine Scott Methodology: Comment Normal [facility] Comment on above: Result Comment: This liquid based ThinPrep(R) pap test was screened with the use of an image guided system. Performed at: WB Performed By: #### [id number] #### [facility] [address] [place] [address] Dr. Lorraine Scott Note: Comment Normal [facility] Comment on above: Result Comment: The Pap smear is a screening test designed to aid in the detection of premalignant and malignant conditions of the uterine cervix. It is not a diagnostic procedure and should not be used as the sole means of detecting cervical cancer. Both false-positive and false-negative reports do occur. . Performed at: WB Performed By: #### [id number] #### [facility] [address] [place] [address] Dr. Lorraine Scott Performed by: Comment Normal [facility] Comment on above: Result Comment: Kong Juarez, Data Management Associate (ASCP) Performed at: WB Performed By: #### 4 [id number] #### [facility] [address] [address] [address] Lorraine Scott Specimen adequacy: Comment Normal [facility] Comment on above: Result Comment: Sati sfactory for evaluation. Endocervical component may not be distinguished in cases of atrophy. Performed at: WB Performed By: #### 4 [id number] #### [facility] [address] [address] [address] Lorraine Scott CHEMISTRYOrdered By: SYSTEM SYSTEM on 04-29-2022 Anion gap [Moles/Vol] 13 mmol/L Normal 6 - 16 mEq/L [facility] Remisol Calcium [Mass/Vol] 10.0 mg/dL Normal 8.9 - 11. 1 mg/dL [facility] Remisol Chloride [Moles/Vol] 103 mmol/L Normal 101 - 1 11 mmol/L [facility] Remisol CO2 [Moles/Vol] 27 mmol/L Normal 21 - 31 mmol/L [facility] Remisol Creatinine [Mass/Vol] 1.0 mg/dL Normal 0.5 - 1.3 mg/dL [facility] Remisol GFR/1.73 sq M.predicted among blacks MDRD (S/P/Bld) [Vol rate/Area] mL/min/1.73 m2 Normal >=59mL/min /1.73 m2 [facility] S GFR/1.73 sq M.predicted among non-blacks MDRD (S/P/Bld) [Vol rate/Area] 56 mL/min/1.73 m2 Low >=59mL/min /1.73 m2 [facility] S Glucose [Mass/Vol] 104 mg/dL Normal 55 - 199 mg/dL [facility] Remisol Potassium [Moles/Vol] 4.6 mmol/L Normal 3.5 - 5.3 mmol/L [facility] Remisol Sodium [Moles/Vol] 138 mmol/L Normal 135 - 145 mmol/L [facility] Remisol Urea nitrogen [Mass/Vol] 20 mg/dL Normal 5 - 21 mg/dL [facility] Remisol Urea nitrogen/Creatinine [Mass ratio] 20 mg/mg Normal 10 - 20 [facility] Remisol US breast LT limitedon 06-26 US breast LT limited [facility] Main [address] [address] Mammography Report Signed Patient: Chloe Agarwal MR#: [id number] : 1955 Acct:[id number] Age/Sex: 65 / F ADM Date: 06/26/21 Loc: [place] Room: Type: [facility] Attending Dr: Juan Carlos Gifford MD Ordering Provider: Juan Carlos Gifford MD Date of Service: 06/26/21 MM/MM diagnostic mammo BI w/CAD: BREAST PAIN ([id number]) US/US breast LT limited: BREAST PAIN Copies to: MD Juan Carlos Butt MD CLINICAL DATA: Continued medial left breast pain. BILATERAL DIAGNOSTIC MAMMOGRAMS - FULL FIELD DIGITAL WITH TOMOSYNTHESIS AND CAD Tomosynthesis craniocaudal and mediolateral oblique views of both breasts were obtained using low- dose digital technique. Comparison is made to prior studies from June 01, 2012 through September 20, 2019. This examination was reviewed with the aid of CAD. The breast parenchyma has been largely replaced by fat. Benign and vascular calcifications are again noted. Lymph nodes are seen along the chest wall bilaterally. There are no new suspicious masses, typically malignant calcifications or architectural distortion. There has been no significant interval change. LIMITED LEFT BREAST ULTRASOUND COMPARISON: September 20, 2019 Real-time ultrasound evaluation of the medial left breast was performed in the area of pain as indicated by the patient. There are no developing cystic or solid masses to account for patient's symptoms. A lobulated hypo and hyperechoic area at 12-1 o'clock, 8 cm from the nipple is again seen. It measures 6 x 3 x 6 mm on the current study and is not significantly changed. MM/MM diagnostic mammo BI w/CAD IMPRESSION: NO MAMMOGRAPHIC EVIDENCE OF MALIGNANCY. NO IMAGING FINDINGS TO ACCOUNT FOR PATIENT'S MEDIAL LEFT BREAST PAIN. CLINICAL MANAGEMENT IS RECOMMENDED. ROUTINE MAMMOGRAPHIC FOLLOW-UP IS RECOMMENDED IN ONE YEAR. RESULT CODE: 2 Benign Findings(s) DENSITY CODE: 1 (<25% glandular) FOLLOW UP: 1YR The false-negative rate of mammography is approximately 10-percent. Management of a palpable abnormality must be based on clinical grounds. Patient was entered into a reminder system with a target due date for the next mammogram. Impression dictated by: Cira Pena M.D.06/26/2021 11:36 AM Dictation Location: [facility] Transcribed By: [facility] 06/26/21 1136 Dictated By: Cira Pena MD 06/26/21 0804 Signed By: 06/26/21 1136 [facility] Intraoperative Noteon 2017 Intraoperative Note [id number]#1.00OTGTIF F [facility] Coding Summaryon 12-14-2017 Coding Summary CODING DATE: 018 [facility] STATUS: Home PAYOR: Commercial Insurance APC DESCRIPTION 5361 Level 1 Laparoscopy and Related Services ADMIT DX: REASON FOR VISIT DX: K35.80 Unspecified acute appendicitis FINAL DX: PRINCIPAL: K35.80 Unspecified acute appendicitis SECONDARY: K21.9 Gastro-esophageal reflux disease without esophagitis PYMT PROC APC STAT DESCRIPTION DOCTOR NAME DATE 11586 5361 J1 Charlie, surgical, Adryan Yoon MD appendectomy NOTE: The code number assigned matches the documented diagnosis and / or procedure in the patient's chart. However, the narrative phrase printed from the coding software may appear abbreviated, or result in slightly different terminology. Coded By: Tenisha Smith Date Saved: 12/14/2017 09:53 am [facility] Lab - Other Lab [facility] - Other Lab Results [id number]#1.00OTGTIF F [facility] Operative Report - Surgeon/Jeanette varela 12-09-2017 Operative Report - Surgeon/Physician This is the second dictation on this operative reportDATE OF PROCEDURE: 12/04/17URGEON: Adryan Yoon MDANESTHESIA: General.PREOPERATIVE DIAGNOSIS: Acute appendicitis.POSTOPERATIV E DIAGNOSIS: Acute appendicitis.PROCEDURE: Laparoscopic appendectomy.IV FLUIDS: Crystalloid 500 mL.ESTIMATED BLOOD LOSS: Minimal.SPECIMEN: Appendix.DISPOSITION: To the PACU in fair condition.OPERATIVE REPORT: The patient was brought into the operating room andplaced supine on the operating table after the establishment of generalendotracheal anesthesia. The patient's abdomen was prepped and draped in asterile fashion. A 3 cm curvilinear infraumbilical incision was made and itwas carried down through the skin using sharp dissection through the softtissue using the electrocautery Bovie until reaching the anterior rectusfascia. The fascia was scored in the midline and grasped with the Kocherclamps and elevated. Then 0 Vicryl stay sutures were placed. The peritoneumwas opened using blunt dissection. A 5 mm port was placed in the right upperquadrant and a second 5 mm port was placed in the left lower quadrant. Thepatient was placed in the Trendelenburg position. The appendix was inflamed.It was grasped with a Teton clamp. A defect in the mesoappendix wascreated using a curved dissector. The Endo GORDON stapler was used to transectthe mesoappendix and a second firing of the vascular stapler was used totransect the mesoappendix. The appendix was placed in an Endocatch bag andremoved via the infraumbilical port. The port was replaced. The abdomen wasre-insufflated with the CO2 gas. The abdominal cavity was irrigated withnormal saline and suctioned. The right upper quadrant and left lowerquadrant ports were removed. There was no evidence of any bleeding. Theinfraumbilical port was removed and the fascia was re-approximated using thepreviously placed stay sutures. All the wounds were anesthetized with 0.5%Marcaine. The skin was re-approximated using 4-0 Monocryl in a subcuticularfashion. The incisions were cleaned with normal saline and dried. Mastisolwas placed on both sides of the incisions and 1/2 inch Steri-Strips wereplaced along with dry sterile dressings. The patient was extubated in theoperating room and taken to the PACU in fair condition. All instruments andsponge counts were correct at the end of the case. The patient tolerated theprocedure without any difficulties.Adryan Yoon M.D.JOB #: [id number]: 12/09/2017T: 12/09/2017[Electronically Signed on: 12/15/2017 10:32 EST] Adryan Yoon MD[Verified on: 12/15/2017 10:32 EST] Adryan Yoon MD[Transcribed on: 12/09/2017 09:14 EST]GDU [facility] Outside Recordson 12-09-2017 Outside Records [id number]#1.00OTGTI FF [facility] Outside Records [id number]#1.00OTGTI FF [facility] MAGR Postoperative Recordon 12-08-2017 MAGR Postoperative Record MAGR Phase II Record Summary Primary Physician: Adryan Yoon MD Finalized Date/Time: 12/08/17 13:12:55 Pt. Name: CHLOE AGARWAL./Sex: 1955 FEMALE Med Rec #: [id number] Physician: Adryan Yoon MD Financial #: [id number] Pt. Type: D Room/Bed: [facility] Admit/Disch: 12/04/17 03:05:00 - 12/05/17 12:30:00 Institution: Phase II Case Times MAGR Pre-Care Text: Patient is free from s/s of injury. Patient remains free from compromised physical state related to surgery or anesthesia. Patient comfort maintained. Patient/family verbalize understanding of discharge instructions. Entry 1 In PACU II 12/04/17 11:27:00 Discharge from PACU 12/04/17 12:27:00 II Last Modified By: Chloe Turcios RN 12/08/17 13:12:45 Post-Care Text: The patient remains free from s/s of injury. Patient's vital signs stable, circulation maintained, return to preop mental and physical status, opsite/dressing intact, minimal or absent nausea and vomiting, tolerates po intake. Patient verbalizes adequate pain control. Patient/family express understanding of discharge instructions. General Comments: care per 2 [facility] nursing personnel Finalized By: Chloe Turcios RN Document Signatures Signed By: Chloe Turcios RN 12/08/17 13:12 [facility] Operative Report - Surgeon/P avery 12-08-2017 Operative Report - Surgeon/Physician [id number]#1.00OTGTIF F [facility] Pathology Sendout Teston Pathology Send Out. See Report [facility] Comment on above: Order Comment: JANET COWART Performed By: #### 2 [id number] ####[facility] (DEFAULT)[address] [place] [address] Provider Orderson 12-08-2017 Provider Orders [id number]#1.00OTGTIF F [facility] Consent Formson 12-07-2017 Consent Forms [id number]#1.00OTGTIF F [facility] Intraoperative Noteon 2017 Intraoperative Note [id number]#1.00OTGTI FF [facility] Medication Managementon 11-19 Medication Management [id number]#1.00OTGTIF F [facility] Telemetry Stripson 8 Telemetry Strips [id number]#1.00OTGTIF F [facility] Discharge Summaryon 12-06-19 Discharge Summary DISCHARGE DIAGNOSIS: Acute appendicitis.DISCHARGE CONDITION: Good.HOSPITAL COURSE: The patient is a 62-year-old woman who presented [facility] emergency department. She was found to have a slightlyelevated white blood cell count. A CT scan was consistent with acuteappendicitis. The patient wanted to be transferred to [facility] andas a result, she underwent a laparoscopic appendectomy. Postoperatively sheis doing well. Her white blood cell count decreased to the normal range. Sheis tolerating a regular diet. Her pain is controlled and she is ambulatingwithout difficulty. As a result, she will be discharged home. She willfollow-up with me in two weeks.Adryan Yoon M.D.JOB #: [id number]: 12/05/2017T: 12/06/2017[Electronically Signed on: 12/09/2017 07:13 EST] Adryan Yoon MD[Verified on: 12/09/2017 07:13 EST] Adryan Yoon MD[Transcribed on: 12/06/2017 08:45 EST]GDU Normal [facility] .Auto Diff 1on 12-05-2017 Auto Baso % 0.1 % Low 0.2-2.0 [facility] Comment on above: Performed By: #### 7 [id number], [id number] ####[facility] (DEFAULT)[address] [place] [address] Auto [place] % 8 % Normal 1-12 [facility] Comment on above: Performed By: #### 7 [id number], [id number] ####[facility] (DEFAULT)[address] [place] [address] Auto Neut % 86 % Normal 44-88 [facility] Comment on above: Performed By: #### 7 [id number], [id number] ####[facility] (DEFAULT)[address] [place] [address] Baso Abs# 0.0 x10 Normal 0.0-0.2 [facility]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 MD[Verified on: 12/04/2017 07:16 EST] Adryan Yoon MD[Transcribed on: 12/04/2017 06:52 EST][facility] MAGR Intraoperative Recordon 12-04-2017 MAGR Intraoperative Record MAGR Intra-Op Record Summary Primary Physician: Adryan Yoon MD Finalized Date/Time: 12/04/17 15:26:26 Pt. Name: CHLOE AGARWAL /Sex: 1955 FEMALE Med Rec #: [id number] Physician: Adryan Yoon MD Financial #: [id number] Pt. Type: D Room/Bed: [facility] Admit/Disch: 12/04/17 03:05:00 - Institution: Case Times MAGR Entry 1 Patient In Room Time 12/04/17 09:44:00 Out Room Time 12/04/17 10:42:00 Anesthesia Start Time 12/04/17 09:44:00 Stop Time 12/04/17 10:42:00 Surgery Start Time 12/04/17 10:07:00 Stop Time 12/04/17 10:35:00 Last Modified By: Olinda Mora 12/04/17 10:56:06 Case Attendance MAGR Entry 1 Entry 2 Entry 3 Case Attendee Adryan Yoon MD, David DO Cartier, Cynthia M Role Performed Surgeon - Primary Anesthesiologist of [employer] Phot[employer] Detailer Record Time In 12/04/17 09:44:00 12/04/17 09:44:00 12/04/17 09:44:00 Time Out 12/04/17 10:42:00 12/04/17 10:42:00 12/04/17 10:42:00 Procedure Appendectomy Appendectomy Appendectomy Laparoscopic Laparoscopic Laparoscopic Last Modified By: Olinda Mora Cynthia M Cartier, Cynthia M 12/04/17 10:56:16 12/04/17 10:56:16 12/04/17 10:56:16 Entry 4 Entry 5 Entry 6 Case Attendee Jennifer Li CAMPGROUND MANAGER BOARD CSFA/CAMPGROUND MANAGER, Antonia Bah RN Role Performed Salesperson [employer] Personnel [employer] Detailer Time In 12/04/17 09:44:00 12/04/17 09:44:00 12/04/17 09:44:00 Time Out 12/04/17 10:42:00 12/04/17 10:42:00 12/04/17 10:42:00 Procedure Appendectomy Appendectomy Appendectomy Laparoscopic Laparoscopic Laparoscopic Last Modified By: Olinda Mora Cynthia M Cartier, Cynthia M 12/04/17 10:56:16 12/04/17 10:56:16 12/04/17 10:56:16 Surgical Procedures MAGR Pre-Care Text: A.20 Verifies operative procedure, surgical site, and laterality Im.150 Develops individualized plan of care Entry 1 Procedure Appendectomy Primary Procedure Yes Laparoscopic Primary Surgeon Adryan Yono MD Surgeon Comment LAP APPY- APPENDICITIS Start 12/04/17 10:07:00 Stop 12/04/17 10:35:00 Anesthesia Type General Surgical Service General Wound Class Contaminated Last Modified By: Olinda Mora 12/04/17 10:56:38 Post-Care Text: O.730 The patient's care is consistent with the individualized perioperative plan of care General Case Data MAGR Pre-Care Text: A.350.1 Classifies surgical wound Entry 1 Case Information OR MAGR OR 01 Case Level Level 4 Wound Class Contaminated Specialty General ASA Class 2 Diagnosis Preop Diagnosis APPENDICITIS Postop Same As Preop Yes Postop Diagnosis APPENDICITIS Last Modified By: Olinda Mora 12/04/17 10:32:31 Post-Care Text: O.760 Patient receives consistent and comparable care regardless of the setting Time Out MAGR Entry 1 Time out date/time 12/04/17 10:03:00 All team members Yes have introduced themselves by name and role Surgeon, Yes Surgeon reviews Yes anesthesia, nurse critical or confirm patient, unexpected steps, site, procedure operative duration, anticipated blood loss Anesthesia team Yes Nursing team Yes reviews any reviews sterility patient-specific (including concerns indicator results) and equipment issues/concerns Antibiotic Yes Is essential N/A prophylaxis given imaging displayed? within the last 60 minutes Last Modified By: Olinda Mora 12/04/17 10:33:01 Patient Positioning MAGR Pre-Care Text: A.280 Identifies baseline musculoskeletal status Im.40 Positions the patient Im.80 Applies safety devices Entry 1 Procedure Appendectomy Body Position Supine Laparoscopic Left Arm Position Extended on padded arm Right Arm Position Extended on padded arm board board Left Leg Position Extended Right Leg Position Extended Feet Uncrossed? Yes Press Points Checked Yes Positioning Device Arm Strap, Pillow, Outcome Met (O.80) Yes Safety Strap Last Modified By: Olinda Mora 12/04/17 10:34:03 Post-Care Text: E.290 Evaluates musculoskeletal status O.80 Patient is free from signs and symptoms of injury related to positioning Skin Prep MAGR Pre-Care Text: A.30 Verifies allergies Im.270 Performs skin preparation Im.270.1 Implements protective measures to prevent skin and tissue injury due to chemical sources Entry 1 Skin Prep Syntegrity Prep Agents (Im.270) Chlorhexidine Gluconate Prep By Olinda Mora and Alcohol Prep Area (Im.270) Abdomen Skin Prep Agent Dry Yes Without Pooling Hair Removal Syntegrity Hair Removal Methods Clipper Hair Removal By Antonia Pérez RN Hair Removal 12/04/17 10:10:00 Date/Time Outcome Met (O.100) Yes Last Modified By: Olinda Mora 12/04/17 10:36:25 Post-Care Text: E.10 Evaluates for signs and symptoms of physical injury to skin and tissue O.100 Patient is free from signs and symptoms of chemical injury Counts Verification MAGR Pre-Care Text: A.20 Verifies operative procedure, surgical site, and laterality A.20.2 Assesses the risk for unintended retained foreign body Im.20 Performs required counts Entry 1 Procedure Appendectomy Laparoscopic Counts Verification Initial Counts Items included in Sponges, Sharps Initial Counts Manual the Initial Count Method Initial Counts Olinda Mora, Initial Count Time 12/04/17 09:50:00 Performed By BOARD LEA/YESENIA GARCIA Counts Verification Final Counts Items Included in Sponges, Sharps Final Count Method Manual Final Count Final Count Status Correct Final Counts Olinda Mora, Performed By BOARD CSFA/YESENIA GARCIA Surgeon notified of Yes final counts status Outcome Met (O.20) Yes Last Modified By: Olinda Mora 12/04/17 10:59:10 Post-Care Text: E.50 Evaluates results of the surgical count O.20 Patient is free from unintended retained foreign objects Patient Care Devices MAGR Pre-Care Text: A.200 Assesses risk for normothermia regulation A.40 Verifies presence of prosthetics or corrective devices Im.280 Implements thermoregulation measures Im.60 Uses supplies and equipment within safe parameters Entry 1 Entry 2 Equipment Type FORCED WARM AIR UNIT FLOWTRON FOOT CUFF REG Serial ?# [id number] Equipment Setting FACTORY SETTINGS Last Modified By: Olinda Mora Cynthia M 12/04/17 11:06:59 12/04/17 11:06:59 Post-Care Text: E.10 Evaluates signs and symptoms of physical injury to skin and tissue O.700 Patient is free from signs and symptoms of injury caused by extraneous objects Cautery MAGR Pre-Care Text: A.240 Assesses baseline skin condition A.40 Verifies presence of prosthetics or corrective devices Im.50 Implements protective measures to prevent injury due to electrical sources Entry 1 ESU Type Electrosurgical Unit Identification [id number] Number ESU Settings Syntegrity Cut Setting 35 Coag Setting 35 Grounding Pad Details Grounding Pad Yes Verified By Olinda Mora Needed? Grounding Pad Site Table Grounding Pad Within Expiration Yes Date? Outcome Met (O.10) Yes Last Modified By: Olinda Mora 12/04/17 11:47:12 Post-Care Text: E.10 Evaluates for signs and symptoms of physical injury to skin and tissue O.10 Patient is free from signs and symptoms of injury related to thermal sources Cultures and Specimens MAGR Pre-Care Text: A.350 Assesses susceptibility for infection A.10 Confirms patient identity Im.320 Manages culture specimen collection Im.330 Manages specimen handling and disposition Entry 1 Cultures Ordered No Specimens Ordered Yes Outcome Met (O.40) Yes Last Modified By: Olinda Mora 12/04/17 11:47:22 Post-Care Text: E.40 Evaluates correct processes have been performed for specimen handling and disposition O.40 Patient's specimen(s) is managed in the appropriate manner Medication Administration MAGR Pre-Care Text: A.210 Identifies physiological status Im.220 Administers prescribed medications Entry 1 Time Administered 12/04/17 10:25:00 Medication 0.5% MARCAINE Route of Admin SubQ Volume 30 mL By Adryan Yoon MD Outcome Met (O.130) Yes Last Modified By: Olinda Mora 12/04/17 11:50:32 Post-Care Text: E.20 Evaluates response to medications O.130 Patient receives appropriately administered medication(s) Dressing/Packing MAGR Pre-Care Text: A.350 Assesses susceptibility for infection Im.290 Administer care to wound sites Entry 1 Skin Prep Agent Yes Site Abdomen Removed Prior to Dressing? Site Details Bilateral Wound closure Primary Dressing Item Details Tape (Im.290) Wound Closure Strip Outcome Met Yes Last Modified By: Olinda Mora 12/04/17 11:51:37 Post-Care Text: E.200 Evaluates progress of wound healing O.200 Patient's wound perfusion is consistent with or improved from baseline levels Departure from OR MAGR Entry 1 Present on Depart Oxygen Via Stretcher Post-op Destination PACU Skin DFO Condition Dry Description Condition Warm Description Condition Intact Description Report Given To Vernell Gunderson RN Airway Maintenance Patient Status Stable Oxygen in Use? Yes Airway Device Simple mask Flow Rate 8 L/min Last Modified By: Olinda Mora 12/04/17 11:53:41 Case Comments Finalized By: Antonia Pérez RN Document Signatures Signed By: Antonia Pérez RN 12/04[facility]17 [facility] PACU Record [facility] Primary Physician: Adryan Yoon MD Finalized Date/Time: 12/04/17 11:35:32 Pt. Name: ANYCHLOE/Sex: 1955 FEMALE Med Rec #: [id number] Physician: Adryan Yoon MD Financial #: [id number] Pt. Type: D Room/Bed: 229/1 Admit/Disch: 12/04/17 03:05:00 - Institution: PACU Case Times MAGR Entry 1 In PACU I 12/04/17 10:44:00 Discharge from PACU 12/04/17 11:25:00 I Last Modified By: Vernell Gunderson RN 12/04/17 11:35:30 Finalized By: Vernell Gunderson RN Document Signatures Signed By: Vernell Gunderson RN 12/04/17 11:35 [facility] Progress Note - Nurseon - Progress Note - Nurse Patient admitted t o room 229. Was brought to room by ambulance personnel on cot, accompanied by . Patient ambulated to bed independently, steady with no complications. Patient A&Ox3, mouth swabs and chap stick given. Vitals obtained and patient ambulated to bathroom and back to bed with no complications. Lungs clear, no cough at this time. Abdomen soft and tender with palpation to upper abdomen, bowel sounds active. C/o slight nausea and heartburn. IV to left AC intact with no swelling or redness, cap was changed to an extension loop with no complications. Patient states that with previous anesthesia she has been nauseated and itchy. Admission completed. is going to stay the night on the couch, but is refusing to have it pulled out into a bed. Patient c/o 6/10 upper abdominal pain that feels like a stomach ache, Morphine given IVP as ordered. Call light in reach and bed alarm on.[Electronically Signed on: 12/04/2017 04:41 EST] Liliane Rivero RN[Verified on: 12/04/2017 04:41 EST] Liliane Rivero RN [facility] Vital Signs Date Time Vital Sign Value Performing Clinician Davian swan 11-20-2023 13:11-0500 Diastolic blood pressure 81 mm[Hg] Vicky Castillo [facility] 11-20-2023 13:11-0500 Heart rate 59 /min Vicky [employer] [facility] 11-20-2023 13:11-0500 Mean blood pressure 106 mm[Hg] Vicky Castillo [facility] 11-20-2023 13:11-0500 Respiratory rate 18 /min Vicky Castillo [facility] 11-20-2023 13:11-0500 Systolic blood pressure 156 mm[Hg] Vicky Castillo [facility] 11-17-2023 11:36-0500 Diastolic blood pressure 118 mm[Hg] Landon DOUGLAS [facility] 11-17-2023 11:36-0500 Mean blood pressure 135 mm[Hg] Landon DOUGLAS [facility] 11-17-2023 11:36-0500 Systolic blood pressure 170 mm[Hg] Landon DOUGLAS [facility] 11-17-2023 11:27-0500 Blood Pressure Location Landon DOUGLAS [facility] 11-17-2023 11:27-0500 Diastolic blood pressure 107 mm[Hg] Landon DOUGLAS [facility] 11-17-2023 11:27-0500 Heart rate 68 /min Landon DOUGLAS [facility] 11-17-2023 11:27-0500 SaO2% (BldA) [Mass fraction] 98 % Landon DOUGLAS [facility] 11-17-2023 11:27-0500 Systolic blood pressure 171 mm[Hg] Landon DOUGLAS [facility] 10-26-2023 12:48-0500 Diastolic blood pressure 88 mm[Hg] Vicky Castillo [facility] 10-26-2023 12:48-0500 Heart rate 66 /min Vicky Castillo [facility] 10-26-2023 12:48-0500 Mean blood pressure 106 mm[Hg] Vicky Castillo [facility] 10-26-2023 12:48-0500 Respiratory rate 20 /min Vicky Castlilo [facility] 10-26-2023 12:48-0500 Systolic blood pressure 143 mm[Hg] Vicky Castillo [facility] 10-07-2023 09:52-0500 Heart rate 68 /min Claudio Monroe [facility] 10-07-2023 09:52-0500 SaO2% (BldA) [Mass fraction] 100 % Claudio Monroe [facility] 10-07-2023 09:52-0500 Diastolic blood pressure 95 mm[Hg] Claudio Monroe [facility] 10-07-2023 09:52-0500 Mean blood pressure 113 mm[Hg] Claudio Monroe [facility] 10-07-2023 09:52-0500 Systolic blood pressure 148 mm[Hg] Claudio Monroe [facility] 10-07-2023 09:52-0500 Respiratory rate 16 /min Claudio Monroe [facility] 10-07-2023 09:45-0500 Diastolic blood pressure 94 mm[Hg] Claudio Monroe [facility] 10-07-2023 09:45-0500 Heart rate 88 /min Claudio Monroe [facility] 10-07-2023 09:45-0500 SaO2% (BldA) [Mass fraction] 100 % Claudio Monroe [facility] 10-07-2023 09:45-0500 Systolic blood pressure 178 mm[Hg] Claudio Monroe [facility] 10-07-2023 09:03-0500 Heart rate 65 /min Claudio Monroe [facility] 10-07-2023 09:03-0500 SaO2% (BldA) [Mass fraction] 98 % Snyder Fer [facility] 10-07-2023 09:03-0500 Body temperature 97.52 [degF] Claudio Monroe [facility] 10-07-2023 09:03-0500 Diastolic blood pressure 83 mm[Hg] Claudio Fer [facility] 10-07-2023 09:03-0500 Mean blood pressure 103 mm[Hg] Claudio Monroe [facility] 10-07-2023 09:03-0500 Systolic blood pressure 143 mm[Hg] Claudio Monroe [facility] 10-07-2023 09:03-0500 Respiratory rate 14 /min Claudio Monroe [facility] 09-22-2023 11:23-0500 Diastolic blood pressure 88 mm[Hg] Demarjorge Trammell [facility] 09-22-2023 11:23-0500 Heart rate 60 /min Demarjorge Trammell [facility] 09-22-2023 11:23-0500 Mean blood pressure 105 mm[Hg] Demar Valeri [facility] 09-22-2023 11:23-0500 Respiratory rate 14 /min Demar Trammell [facility] 09-22-2023 11:23-0500 Systolic blood pressure 138 mm[Hg] Demar Valeri [facility] 07-14-2023 09:26-0400 Diastolic blood pressure 78 mm[Hg] Vicky STANG [facility] 07-14-2023 09:26-0400 Mean blood pressure 101 mm[Hg] Vicky STANG [facility] 07-14-2023 09:26-0400 Systolic blood pressure 146 mm[Hg] Vicky STANG [facility] 07-14-2023 09:15-0400 Blood Pressure Location Vicky STANG [facility] 07-14-2023 09:15-0400 Diastolic blood pressure 82 mm[Hg] Vicky STANG [facility] 07-14-2023 09:15-0400 Heart rate 67 /min Vicky STANG [facility] 07-14-2023 09:15-0400 SaO2% (BldA) [Mass fraction] 98 % Vicky LAST [facility] 07-14-2023 09:15-0400 Systolic blood pressure 148 mm[Hg] Vicky LAST [facility] 06-30-2023 15:15-0400 Diastolic blood pressure 97 mm[Hg] Landon DOUGLAS [facility] 06-30-2023 15:15-0400 Mean blood pressure 123 mm[Hg] Landon DOUGLAS [facility] 06-30-2023 15:15-0400 Systolic blood pressure 174 mm[Hg] Landon DOUGLAS [facility] 06-30-2023 15:05-0400 Blood Pressure Location Landon DOUGLAS [facility] 06-30-2023 15:05-0400 Diastolic blood pressure 98 mm[Hg] Landon DOUGLAS [facility] 06-30-2023 15:05-0400 Heart rate 80 /min Landon DOUGLAS [facility] 06-30-2023 15:05-0400 SaO2% (BldA) [Mass fraction] 99 % Landon DOUGLAS [facility] 06-30-2023 15:05-0400 Systolic blood pressure 166 mm[Hg] Landon DOUGLAS [facility] 06-08-2023 08:21-0400 Diastolic blood pressure 94 mm[Hg] Vicky Castillo [facility] 06-08-2023 08:21-0400 Heart rate 62 /min Vicky Castillo [facility] 06-08-2023 08:21-0400 Respiratory rate 16 /min Vicky Castillo [facility] 06-08-2023 08:21-0400 Systolic blood pressure 156 mm[Hg] Vicky Castillo [facility] 06-05-2023 10:45-0400 Diastolic blood pressure 70 mm[Hg] Prasad Avalos [facility] 06-05-2023 10:45-0400 Heart rate 70 /min Prasad Infantee [facility] 06-05-2023 10:45-0400 Mean blood pressure 97 mm[Hg] Prasad Robbie [facility] 06-05-2023 10:45-0400 Respiratory rate 20 /min Prasad Infantee [facility] 06-05-2023 10:45-0400 SaO2% (BldA) [Mass fraction] 96 % Prasad Infantee [facility] 06-05-2023 10:45-0400 Systolic blood pressure 152 mm[Hg] Prasad Robbie [facility] 06-05-2023 09:25-0400 Diastolic blood pressure 70 mm[Hg] Prasad Infantee [facility] 06-05-2023 09:25-0400 Heart rate 71 /min Prasad Infantee [facility] 06-05-2023 09:25-0400 Mean blood pressure 96 mm[Hg] Prasad Robbie [facility] 06-05-2023 09:25-0400 Respiratory rate 17 /min Prasad Robbie [facility] 06-05-2023 09:25-0400 SaO2% (BldA) [Mass fraction] 99 % Prasad Robbie [facility] 06-05-2023 09:25-0400 Systolic blood pressure 147 mm[Hg] Prasad Robbie [facility] 06-05-2023 08:54-0400 gluc 109 mg/dL rPasad Avalos [facility] 06-05-2023 08:54-0400 gluc Prasad Avalos [facility] 06-05-2023 08:47-0400 Body temperature 98.06 [degF] Prasad Avalos [facility] 06-05-2023 08:47-0400 Diastolic blood pressure 106 mm[Hg] Prasad Avalos [facility] 06-05-2023 08:47-0400 Heart rate 81 /min Prasad Avalos [facility] 06-05-2023 08:47-0400 Respiratory rate 20 /min Prasad Avalos [facility] 06-05-2023 08:47-0400 SaO2% (BldA) [Mass fraction] 97 % Prasad Avalos [facility] 06-05-2023 08:47-0400 Systolic blood pressure 173 mm[Hg] Prasad Avalos [facility] 04-28-2023 09:05-0400 Diastolic blood pressure 87 mm[Hg] Vickyjayden LAST [facility] 04-28-2023 09:05-0400 Mean blood pressure 111 mm[Hg] Vickyjayden MCDOWELLG [facility] 04-28-2023 09:05-0400 Systolic blood pressure 160 mm[Hg] Vickyjayden MCDOWELLG [facility] 04-28-2023 08:55-0400 Blood Pressure Location Vickyjayden MCDOWELLG [facility] 04-28-2023 08:55-0400 Diastolic blood pressure 88 mm[Hg] Vicky LAST [facility] 04-28-2023 08:55-0400 Heart rate 66 /min Vicky LAST [facility] 04-28-2023 08:55-0400 SaO2% (BldA) [Mass fraction] 97 % Vicky LAST [facility] 04-28-2023 08:55-0400 Systolic blood pressure 153 mm[Hg] Vicky LAST [facility] 04-20-2023 13:54-0400 Diastolic blood pressure 89 mm[Hg] Demar Valeri [facility] 04-20-2023 13:54-0400 Diastolic blood pressure 84 mm[Hg] Demar Valeri [facility] 04-20-2023 13:54-0400 Heart rate 72 /min Demar Valeri [facility] 04-20-2023 13:54-0400 Heart rate 62 /min Demar Valeri [facility] 04-20-2023 13:54-0400 Mean blood pressure 112 mm[Hg] Demar Valeri [facility] 04-20-2023 13:54-0400 Respiratory rate 14 /min Demar Valeri [facility] 04-20-2023 13:54-0400 Systolic blood pressure 159 mm[Hg] Demar Valeri [facility] 04-20-2023 13:54-0400 Systolic blood pressure 147 mm[Hg] Demar Valeri [facility] 04-03-2023 10:40-0400 Diastolic blood pressure 62 mm[Hg] Michael ALBRIGHT [facility] 04-03-2023 10:40-0400 Heart rate 69 /min NILL [facility] 04-03-2023 10:40-0400 Respiratory rate 32 /min NILL [facility] 04-03-2023 10:40-0400 SaO2% (BldA) [Mass fraction] 96 % NILL [facility] 04-03-2023 10:40-0400 Systolic blood pressure 100 mm[Hg] NILL [facility] 04-03-2023 10:30-0400 Diastolic blood pressure 56 mm[Hg] NILL [facility] 04-03-2023 10:30-0400 Heart rate 65 /min NILL [facility] 04-03-2023 10:30-0400 Respiratory rate 20 /min NILL [facility] 04-03-2023 10:30-0400 SaO2% (BldA) [Mass fraction] 95 % NILL [facility] 04-03-2023 10:30-0400 Systolic blood pressure 93 mm[Hg] NILL [facility] 04-03-2023 10:25-0400 Diastolic blood pressure 59 mm[Hg] NILL [facility] 04-03-2023 10:25-0400 Heart rate 69 /min NILL [facility] 04-03-2023 10:25-0400 Respiratory rate 17 /min NILL [facility] 04-03-2023 10:25-0400 SaO2% (BldA) [Mass fraction] 94 % Michael ROLANDL [facility] 04-03-2023 10:25-0400 Systolic blood pressure 102 mm[Hg] Michael ROLANDL [facility] 04-03-2023 10:20-0400 Blood Pressure Location NILL [facility] 04-03-2023 10:15-0400 Blood Pressure Location NILL [facility] 04-03-2023 10:15-0400 Body temperature 96.8 [degF] iMchael ROLANDL [facility] 04-03-2023 09:47-0400 Respiratory rate 18 /min Michael ROLANDL [facility] 04-03-2023 09:24-0400 Blood Pressure Location Michael ROLANDL [facility] 04-03-2023 09:24-0400 Body temperature 96.8 [degF] Michael ROLANDL [facility] 03-17-2023 11:37-0400 Heart rate 78 /min Demarduncan Pradoner [facility] 03-17-2023 11:37-0400 SaO2% (BldA) [Mass fraction] 98 % Demar Trammell [facility] 03-17-2023 11:37-0400 Diastolic blood pressure 63 mm[Hg] Demar Valeri [facility] 03-17-2023 11:37-0400 Mean blood pressure 87 mm[Hg] Demarduncan Pradoner [facility] 03-17-2023 11:37-0400 Systolic blood pressure 136 mm[Hg] Demar Trammell [facility] 03-17-2023 11:33-0400 Diastolic blood pressure 114 mm[Hg] Demar Valeri [facility] 03-17-2023 11:33-0400 Heart rate 91 /min Demar Valeri [facility] 03-17-2023 11:33-0400 Respiratory rate 14 /min Demar Valeri [facility] 03-17-2023 11:33-0400 SaO2% (BldA) [Mass fraction] 99 % Demar Valeri [facility] 03-17-2023 11:33-0400 Systolic blood pressure 156 mm[Hg] Demar Valeri [facility] 03-17-2023 10:56-0400 Heart rate 89 /min Demar Valeri [facility] 03-17-2023 10:56-0400 SaO2% (BldA) [Mass fraction] 100 % Demar Valeri [facility] 03-17-2023 10:56-0400 Diastolic blood pressure 87 mm[Hg] Demar Valeri [facility] 03-17-2023 10:56-0400 Mean blood pressure 104 mm[Hg] Demar Valeri [facility] 03-17-2023 10:56-0400 Systolic blood pressure 138 mm[Hg] Demar Valeri [facility] 03-17-2023 10:56-0400 Body temperature 98.06 [degF] Demar Valeri [facility] 03-17-2023 10:56-0400 Respiratory rate 12 /min Demar Valeri [facility] 02-23-2023 12:32-0400 Diastolic blood pressure 97 mm[Hg] Demar Trammell [facility] 02-23-2023 12:32-0400 Heart rate 62 /min Demar Trammell [facility] 02-23-2023 12:32-0400 Mean blood pressure 115 mm[Hg] Demar Trammell [facility] 02-23-2023 12:32-0400 Respiratory rate 12 /min Demar Trammell [facility] 02-23-2023 12:32-0400 Systolic blood pressure 150 mm[Hg] Demar Trammell [facility] 02-20-2023 13:22-0400 Blood Pressure Location NILL [facility] 02-20-2023 13:22-0400 Diastolic blood pressure 84 mm[Hg] NILL [facility] 02-20-2023 13:22-0400 Heart rate 72 /min NILL [facility] 02-20-2023 13:22-0400 Respiratory rate 16 /min NILL [facility] 02-20-2023 13:22-0400 Systolic blood pressure 122 mm[Hg] NILL [facility] 04-29-2022 09:28-0400 Blood Pressure Location Vicky STANG [facility] 04-29-2022 09:28-0400 Diastolic blood pressure 71 mm[Hg] Vicky STANG [facility] 04-29-2022 09:28-0400 Heart rate 73 /min Vicky STANG [facility] 04-29-2022 09:28-0400 Respiratory rate 18 /min Vicky STANG [facility] 04-29-2022 09:28-0400 SaO2% (BldA) [Mass fraction] 99 % Vicky LAST [facility] 04-29-2022 09:28-0400 Systolic blood pressure 106 mm[Hg] Vicky LAST [facility] Encounters Encounter Date Encounter Type Care Provider Facility Start: 11-20-2023 End: 11-21-2023 ambulatory Vicky Castillo Facility:[facility] Start: 11-20-2023 End: 11-20-2023 Pain Management Vickyjayden Castillo [facility] Start: 11-17-2023 End: 11-18-2023 ambulatory XXXX NONE Facility:[facility] Start: 11-17-2023 End: 11-17-2023 Patient encounter procedure Landon DOUGLAS [facility] Start: 10-26-2023 End: 10-27-2023 ambulatory Vickyjayden Castillo Facility:[facility] Start: 10-26-2023 End: 10-26-2023 Patient encounter procedure Vicky Castillo [facility] Start: 10-26-2023 End: 10-26-2023 Pain Management Vicky Castillo [facility] Start: 10-07-2023 End: 10-08-2023 ambulatory Claudio Monroe Facility:[facility] Start: 10-07-2023 End: 10-07-2023 Pain Management Claudio Monroe [facility] Start: 09-22-2023 End: 09-23-2023 ambulatory Yarelis Mcghee Facility:[facility] Start: 09-22-2023 End: 09-22-2023 Pain Management Demar Trammell [facility] Start: 09-15-2023 End: 09-15-2023 ambulatory THIERRY Audie VILLALOBOS Not Available Start: 08-06-2023 End: 08-07-2023 ambulatory Barry Husain Facility:[facility] Start: 08-06-2023 End: 08-06-2023 Patient encounter procedure Barry Husain [facility] Start: 07-23-2023 End: 07-24-2023 ambulatory Landon DOUGLAS Facility:[facility] Start: 07-14-2023 End: 07-15-2023 ambulatory XXXX NONE Facility:[facility] Start: 07-14-2023 End: 07-14-2023 Hypertension screening status Vicky LAST [facility] Start: 07-14-2023 End: 07-14-2023 Patient encounter procedure Vicky LAST [facility] Start: 06-30-2023 End: 07-01-2023 ambulatory XXXX NONE Facility:[facility] Start: 06-30-2023 End: 06-30-2023 Patient encounter procedure Landon DOUGLAS [facility] Start: 06-08-2023 End: 06-09-2023 ambulatory Yarelis Mcghee Facility:[facility] Start: 06-08-2023 End: 06-08-2023 Pain Management Vicky Castillo [facility] Start: 06-05-2023 End: 06-05-2023 Emergency department patient visit Prasad Robbie Facility:[facility] Start: 06-05-2023 End: 06-05-2023 Emergency department patient visit Prasad Avalos [facility] Start: 05-04-2023 End: 05-05-2023 ambulatory Vicky Castillo Facility:[facility] Start: 05-04-2023 End: 05-04-2023 Pain Management Vicky Castillo [facility] Start: 04-28-2023 End: 04-29-2023 ambulatory XXXX NONE Facility:[facility] Start: 04-28-2023 End: 04-28-2023 Patient encounter procedure Vicky LAST [facility] Start: 04-20-2023 End: 04-21-2023 ambulatory MD Demar Trammell Facility:[facility] Start: 04-20-2023 End: 04-20-2023 Pain Management Demar Trammell [facility] Start: 04-15-2023 End: 04-16-2023 ambulatory Michael ALBRIGHT Facility: [facility] Start: 04-15-2023 End: 04-15-2023 Patient encounter procedure Michael ALBRIGHT [facility] Nill[facility]Said [facility] Start: 04-07-2023 End: 04-08-2023 ambulatory MD Demar Trammell Facility:[facility] Start: 04-03-2023 End: 04-03-2023 ambulatory Michael ALBRIGHT Facility:[facility] Start: 04-03-2023 End: 04-03-2023 Patient encounter procedure Michael ALBRIGHT [facility] Start: 03-17-2023 End: 03-18-2023 ambulatory MD Demar Trammell Facility:[facility] Start: 03-17-2023 End: 03-17-2023 Pain Management Demar Trammell [facility] Start: 03-03-2023 End: 03-04-[address] YARELIS MCGHEE . Facility: Start: 02-23-2023 End: 02-24-2023 ambulatory Yarelis Mcghee Facility:[facility] Start: 02-23-2023 End: 02-23-2023 Pain Management Demar Trammell [facility] Start: 02-20-2023 End: 02-21-2023 ambulatory Michael ALBRIGHT Facility: [facility] Start: 02-20-2023 End: 02-20-2023 Patient encounter procedure Michael ALBRIGHT [facility] Start: 02-09-2023 End: 02-10-[address] YARELIS MCGHEE . Facility: Start: 11-05-2022 End: 11-05-[address] YARELIS MCGHEE . Facility: Start: 10-27-2022 End: 10-27-2022 Patient encounter procedure Vicky LAST [facility] Start: 10-22-2022 End: 10-23-[address] JUAN CARLOS GIFFORD . Facility: Start: 09-24-2022 End: 09-24-[address] JUAN CARLOS GIFFORD . Facility: Start: 04-29-2022 End: 04-29-2022 Patient encounter procedure Vicky LAST [facility] Start: 12-05-2017 End: 04-15-2018 Ambulatory Adryan Yoon Facility:[facility] Procedures Date Procedure Procedure Detail Performing Clinician Start: 10-07-2023 Injection of nerve root of lumbar spine using fluoroscopic guidance Vicky Catsillo Comment on above: right L5/S1 TFESI- 50% relief x 3 days t hen no relief Start: 04-20-2023 Injection of steroid into hip joint Vicky Castillo Comment on above: Right Hip Bursa Injection-50% relief Start: 04-03-2023 Colonoscopy Michael ALBRIGHT Start: 04-03-2023 Esophagogastroduodenoscopy Michael ALBRIGHT Start: 03-17-2023 Injection of nerve root of lumbar spine using fluoroscopic guidance Michael ALBRIGHT Comment on above: 75% relief Start: 09-17-2021 Cardiac catheterization Vicky LAST Start: 04-01-2021 Esophagogastroduodenoscopy Vicky LAST Start: 10-19-2017 Appendectomy Vicky LAST Start: 10-19-1961 Tonsillar structure (palatine) (body structure) Vicky LAST Comment on above: Tonsilectomy Arthroplasty of knee Michael ALBRIGHT Esophagogastroduodenoscopy A maicoljordan LAST Comment on above: during early 40s Knee region structur e (body structure) Vicky LAST Comment on above: Knee replacement x 2 Tonsillectomy and adenoidectomy Michael ALBRIGHT Ureterorenoscopy wit h fragmentation and removal of calculus of kidney Vicky LAST Immunizations Immunization Date Immunization Notes Care Provider Fa cility 07-23-2021 SARS-CoV-2 (COVID-19 ) mRNA BNT-162b2 vax Michael ROLANDL [facility] 07-02-2021 SARS-CoV-2 (COVID-19 ) mRNA BNT-162b2 vax Michael ROLANDL [facility] NEGATED: Highlighted row has not occurred!12-25-2021 influenza virus vaccine, unspecified formulation Vickyjayden LAST [facility] NEGATED: Highlighted row has not occurred!10-16-2021 influenza virus vaccine, unspecified formulation Vicky LAST [facility] Payers Date Payer Category Payer Unknown [id number] 1957 Medicare [id number] 1957 Unknown [id number] 1955 Unknown [id number] 2.16.84 0.1.451137.3.579.2.593 1957 Unknown [id number] 2.16.84 0.1.625590.3.579.2.593 1957 Unknown [id number] 2.16.84 0.1.902717.3.579.2.593 1957 Unknown [id number] 2.16.84 0.1.047767.3.579.2.593 1957 Unknown [id number] 2.16.84 0.1.019175.3.579.2.593 1957 Unknown [id number] 2.16.840 .1.410190.3.579.2.1259 1957 Unknown [id number] 2.16.8 40.1.847179.3.579.2.727 1957 Unknown [id number] 2.16.8 40.1.598693.3.579.2.727 1957 Unknown [id number] 2.16.8 40.1.860482.3.579.2.727 1957 Unknown [id number] 2.16.8 40.1.019009.3.579.2.727 1957 Unknown [id number] 2.16.8 40.1.826650.3.579.2.727 1957 Unknown [id number] 2.16.8 40.1.085240.3.579.2.727 1957 Unknown [id number] 2.16.8 40.1.307457.3.579.2.727 1957 Unknown [id number] 2.16.8 40.1.493538.3.579.2.727 1957 Unknown [id number] 2.16.8 40.1.184186.3.579.2.727 1957 Unknown [id number] 2.16.8 40.1.266188.3.579.2.727 1957 Unknown [id number] 2.16.8 40.1.110898.3.579.2.72 1957 Unknown [id number] 2.16.8 40.1.640036.3.579.2.72 1957 Unknown [id number] 2.16.8 40.1.882953.3.579.2.727 1957 Unknown [id number] 2.16.8 40.1.513154.3.579.2. 1957 Unknown [id number] 2.16.8 40.1.669943.3.579.2.727 1957 Unknown [id number] 2.16.8 40.1.341896.3.579.2.727 1957 Unknown [id number] 2.16.8 40.1.458549.3.579.2.727 1957 Unknown [id number] 2.16.8 40.1.241066.3.579.2. 1957 Unknown [id number] 2.16.8 40.1.427438.3.579.2.727 1957 Unknown [id number] 2.16.8 40.1.343556.3.579.2.72 1957 Unknown [id number] 2.16.8 40.1.696797.3.579.2. Social History Date Type Detail Facility Start: 12-25-2021 End: 11-17-2023 Tobacco smoking status Never smoked tobacco (finding) [facility] Comment on above: Denies. Sex Assigned At Female [facility] Tobacco smoking status Never [facility] Comment on above: Denies. Tobacco [facility] Comment on above: denies Tobacco smoking status No Smokin g Status Entered [facility] Functional Status Date Assessment Result Facility 11-20-2023 Functional Status N/A [facility] 11-17-2023 Functional Status No [facility] 10-26-2023 Functional Status N/A [facility] 10-07-2023 Functional Status N/A [facility] 09-22-2023 Functional Status N/A [facility] 07-14-2023 Functional Status No [facility] 06-30-2023 Functional Status No [facility] 06-08-2023 Functional Status N/A [facility] 06-05-2023 Functional Status N/A [facility] 05-04-2023 Functional Status N/A [facility] 04-28-2023 Functional Status No [facility] 04-20-2023 Functional Status N/A [facility] 04-03-2023 Functional Status N/A [facility] 03-17-2023 Functional Status N/A [facility] 02-23-2023 Functional Status N/A [facility] 02-20-2023 Functional Status N/A [facility] 04-29-2022 Functional Status N/A [facility] Clinical Notes 10-08-2021 to 11-20-2023 Note Date & Type Note Facility 11-20-2023 Evaluation + Plan note Extrac inda from: Title:Pain Managment Follow up Author:Vicky Adams Date:11/20/23 Impression and Plan Patient is a 68-year-old female with a past medical history significant for lumbar degenerative disease, lumbar neuritis and lumbar spondylolisthesis. Once again reviewed her imaging. We discussed different options. They were recently referred to a surgeon by her PCP but they wonder what we feel she should do next. We reviewed the x-rays. We discussed different options. She underwent injection without any long-term relief. She did not tolerate the gabapentin or Lyrica. At this time, I would recommend a spine referral. She was given the name of a local spine surgeon. She is going to look into this person and she will let us know what she decides ROMA reviewed ELVIS score: 30% Future Appointments Appointment Date:12/14/2023 10:45:00 AM Scheduled Provider:Barry Husain MD Location:[facility] Appointment Type:Pulmonary New Patient ([facility]) Appointment Date:12/18/2023 01:45:00 PM Scheduled Provider:Willie Kaur MD Location:.[facility] Appointment Type:Cardiology Follow Up (FT) [facility]01-08-2024 Evaluation + Plan noteExtracted from: Title:Pain Managment Follow up Author:Vicky Adams Date:10/26/23 Impression and Plan Patient is a 68-year-old female with a past medical history significant for lumbar degenerative disease, lumbar spondylolisthesis, lumbar neuritis, left hip pain and left buttock pain. This affects her ability to come to. This affects her quality of life. Unfortunate, recent repeat right-sided L5-S1 transforaminal epidural steroid injection did not give her any long-term relief. She continues to have lower back pain with right buttock pain and right radiating leg pain. She also has some left-sided groin pain. Previous gabapentin caused significant side effects. She does not want to have anything that is going to give her side effects. We discussed trialing low-dose Lyrica. Potential side effects were discussed at length. Questions and concerns were also discussed. At this time, I would recommend obtaining a pelvis x-ray and a lumbar x-ray due to her complaints of groin pain on the left side and I would recommend trialing low-dose Lyrica. 25 mg once a day and if doing well can go to twice a day. Follow-up in 2 to 3 weeks for reevaluation of the x-ray. We also discussed the possibility of L5-S1 interlaminar epidural steroid injection but we will start with a new x-ray. ROMA reviewed ELVIS score: 30% Future Appointments Appointment Date:11/17/2023 11:30:00 AM Scheduled Provider:Landon DOUGLAS MD Location:.[facility] Clinic Appointment Type:Cardiology Follow Up (FT) Appointment Date:11/20/2023 01:15:00 PM Scheduled Provider:Vicky Castillo PA-C Location[facility] Appointment Type:Pain Management - Follow Up (FT) [facility]12-20-2023 Evaluation + Plan noteExtracted from: Title:Right L5/S1 transforam inal dural steroid injection Author:Claudio Monroe DO Date:10/07/23 Diagnosis: M54.16 Lumbar rad iculopathy Procedure: Right L5/S1 lumbar transforaminal epidural steroid injections under fluoroscopic guidance Anesthesia: Local Complications: none After informed consent was obtained, the patient was brought to the procedure suite placed in the prone position. Pulse oximetry and blood pressure were monitored throughout. The low back area is prepped and draped in usual sterile fashion. Using fluoroscopic guidance, skin and subcutaneous tissue overlying the medial trajectory of the neuroforamina were anesthetized with 2% lidocaine. A 22-gauge Sprotte needles were then advanced under fluoroscopic guidance to the appropriate foramina. Needle tip positions were confirmed under fluoroscopic views. Injection of contrast revealed appropriate spread of the dye without vascular uptake. Next, at each site, 2 mL of 1.0% lidocaine with 10 mg of dexamethasone was injected through the needle tip. The needles were then removed and the patient was then transferred to the recovery room in stable condition. The pain tolerated the procedure well. There were no apparent complications. Follow-up: The patient will update us on the response to this procedure, and agrees to comply to currently prescribed/recommended therapies. Future Appointments Appointment Date:10/30/2023 08:15:00 AM Scheduled Provider:Vicky Castillo PA-C [facility] Appointment Type:Pain Management - Follow Up (FT) Appointment Date:11/17/2023 11:30:00 AM Scheduled Provider:Landon DOUGLAS MD Location:.[facility]iology Clinic Appointment Type:Cardiology Follow Up (FT) [facility]12-20-2023 Note [id number] NoteDiagnosis: M54.16 Lumbar radiculopathy Procedure: Right L5/S1 lumbar transforaminal epidural steroid injections under fluoroscopic guidance Anesthesia: Local Complications: none After informed consent was obtained, the patient was brought to the procedure suite placed in the prone position. Pulse oximetry and blood pressure were monitored throughout. The low back area is prepped and draped in usual sterile fashion. Using fluoroscopic guidance, skin and subcutaneous tissue overlying the medial trajectory of the neuroforamina were anesthetized with 2% lidocaine. A 22-gaugeSprotte needles were then advanced under fluoroscopic guidance to the appropriate foramina. Needle tip positions were confirmed under fluoroscopic views. Injection of contrast revealed appropriate spread of the dye without vascular uptake. Next, at each site, 2 mL of 1.0% lidocaine with 10 mg of dex amethasone was injected through the needle tip. The needles were then removed and the patient was then transferred to the recovery room in stable condition. The pain tolerated the procedure well. There were no apparent complications. Follow-up: The patient will update us on the response to this procedure, and agrees to comply to currently prescribed/recommended therapies.[facility] Comment on above:Result Comment: Electronically Signed By: Claudio Monroe DO\.br\Date and Time Signed: 10/07/23 09:54 [id number] Evaluation + Plan note Extracted from: Title:FUV Author:Demar Trammell MD Date :09/22/23 Impression and Plan 67-year-old female with severe right low back and leg pain consistent with lumbosacral radiculopathy that has returned after she was doing so well following previous transforaminal epidural steroid injections. I explained the likely Dallergy of her pain to the patient today. I suggested a right L5/S1 transforaminal epidural steroid injection to address her symptoms again. She received 90+ percent relief of the radicular pain for 6+ months from the previous epidural steroid injection. I also suggested starting a Medrol Dosepak to help calm things down while she is waiting for the epidural steroid injection. If her symptoms complete resolve are are significantly improved from the Medrol Dosepak she should cancel the injection appointment. Risk, benefits, and alternatives were reviewed with the patient. She wishes to proceed. Follow-up 2 weeks after the injection to assess response. Patient agrees with plan of care. Future Appointments Appointment Date:11/17/2023 11:30:00 AM Scheduled Provider:Landon DOUGLAS MD Location:.Cardiology Clinic Appointment Type:Cardiology Follow Up (FT) [facility]08-21-2023 Evaluation + Plan noteExtracted from: Title:Pain Managment Follow up Author:Vicky Adams Date:06/08/23 Impression and Plan Patient is a 67-year-old female with a past medical history significant for lumbar neuritis, lumbar degenerative disc disease and trochanteric bursitis. At this time, she is dealing with some blood pressure issues. She still has some symptoms from this but she states that her medications were only changed on Thursday. She was told she needs to give them some more time. At this time, she would like to work on her blood pressure. She is still having some cramping in her legs mainly at night but she wants to put this on hold and get her blood pressure taken care of. She will call us when this is under control to discuss further options. She was given our phone number. Questions and concerns were all answered and discussed. She has since stopped the gabapentin over last 48 hours. ELVIS score: 24% Future Appointments Appointment Date:07/06/2023 11:00:00 AM Scheduled Provider:Landon DOUGLAS MD Location:.Cardiology Clinic Appointment Type:Cardiology ED Follow Up (FT) [facility]08-18-2023 Evaluation + Plan noteExtracted from: Title:ED Note Author:Prasad Avalos DO Date:05/19 06/10 Dizziness (R42: Dizziness an d giddiness) Hypertension (I10: Essential (primary) hypertension) Orders: losartan, 50 mg = 1 tab(s), Oral, Daily, X 30 day(s), # 30 tab(s), Refills(s) 0, Pharmacy: [facility], 152.4, cm, 06/05/23 8:54:00 EDT, Height/Length Dosing, 73, kg, 06/05/23 8:54:00 EDT, Weight Dosing losartan, 25 mg = 0.5 tab(s), Tab, Oral, Once, Stop date 06/05/23 8:53:00 EDT, STAT, Start date 06/05/23 8:53:00 EDT, 06/05/23 8:53:00 EDT Sodium Chloride 0.9% intravenous solution 1,000 mL, 1,000 mL, IV, 20 mL/hr, STAT, Start date 06/05/23 8:52:00 EDT, 50 hour(s), Total volume (mL): 1,000 Automated Diff Basic Metabolic Panel Capillary Glucose POC CBC w/ Auto Diff CT Head or Brain w/o Contrast eGFR Extra Blue Tube Extra SST Tube Troponin 0 Hr. Troponin 3 Hr. Troponin 6 Hr. Troponin 9 Hr. XR Chest Single View Future Appointments Appointment Date:06/08/2023 08:15:00 AM Scheduled Provider:Vicky Castillo PA-C Location:FT.[facility] [place] Appointment Type:Pain Management - Follow Up (FT) Appointment Date:07/06/2023 11:00:00 AM Scheduled Provider:Landon DOUGLAS MD Location:FT.Cardiology Clinic Appointment Type:Cardiology ED Follow Up (FT) [facility]08-18-2023 Hospital Discharge instructions Follow Up Care 06/05/2023 08:40:51 With:Yarelis Mcghee Address: [address] [place], [place] [id number] Business (1) When:Within 3 Day(s) [facility]07-17-2023 Evaluation + Plan noteExtracted from: Title:Pain Managment Follow up Author:Vciky Adams Date:05/04/23 Impression and Plan Patient is a 67-year-old female with a past medical history as needed significant for lumbar degenerative disease, lumbar neuritis, and trochanteric bursitis. Recent trochanteric bursa injection done on 04/20/2023 has given her at least 50% relief and prior to that bilateral L5-S1 transforaminal epidural steroid injection also gave her 75% relief. She states that things are overall going very well. She is feeling better. She is more comfortable. She is happy. She wants to make sure she stays on top of this though. She wants to be seen regularly that way if she needs to have another injection she can get this facilitated. At this time, her quality of life and activities are both improved. Unfortunately, she is noticing some cramping mainly at night that she wonders what she can do about this. We had a long discussion on different options. At this time we are going to start her on gabapentin 300 mg twice daily to see if we can get some better control of the cramping. How to start the medication was discussed. Patient side effects were discussed. At this time she is going to follow-up in 4 to 6 weeks. Call the clinic sooner if necessary. OARRS reviewed. ELVIS score: 16% Future Appointments Appointment Date:06/08/2023 08:15:00 AM Scheduled Provider:Vicky Castillo PA-C Location:FT.[facility] Appointment Type:Pain Management - Follow Up (FT) [facility]06-19-2023 Note [id number]:127[facility] 04-03-2023 Evaluation + Plan noteExtracted from: Title:ANES Post-operative Note - General Author: Lb Wu Jr., DO Date:04/03/23 Plan Transfer/Discharge: Transfer/Discharge Discharge when meets criteria ( From PACU to Ambulatory Surgery Unit, and To home ). Extracted from: Title:ANES Pre-operative Note - Endo Author:Lb Melendez Jr., DO Date:04/03/23 Plan [place] [employer]esthesi[employer] (ASA) physical status classification: Class III. Anesthetic Preoperative Plan: Anesthesia General, and -TIVA. Future Appointments Appointment Date:04/07/2023 11:00:00 AM Scheduled Provider:Demar Trammell MD Location:FT.[facility] Appointment Type:Pain Management - Follow Up (FT) Appointment Date:04/28/2023 09:00:00 AM Scheduled Provider:Vicky LAST CNP Location:.Cardiology Clinic Appointment Type:Cardiology Follow Up (FT) [facility]06-16-2023 Hospital Discharge instructions Patient Education 04/03/2023 10:24:17 Diverticulosis MAGR (CUSTOM) Diverticulosis Many people have small pouches in their colon called diverticulum. The diverticulum bulge outward through weak spots in the colon. You could have one or more of these pouches in the colon. The condition of having these pouches in the colon is called diverticulosis or diverticular disease. Diverticulosis is usually diagnosed by tests to evaluate something else. For example, you may have had a colonoscopy to screen for colon cancer when the diverticulosis was found. Most people with diverticulosis do not have any discomfort or problems. If symptoms develop, they may include mild cramps, bloating, and constipation. A complication of this condition is called diverticulitis. This is when the diverticulum become inflamed and infected. How to treat diverticulosis: Increasing the amount of fiber in the diet may reduce symptoms of diverticulosis and prevent complications such as diverticulitis (infected diverticuli). Fiber keeps stool soft and lowers pressure inside the colon so that bowel contents can move througheasily. You should eat 20 to 35 grams of fiber each day. The table below shows the amount of fiber in some foods that you can easily add to your diet. Adding fiber slowly may decrease the bloating and fullness sometimes felt with an immediate high fiber diet. The doctor may also recommend taking a fiber product such as Citrucel or Metamucil once a day. In the past people with diverticulosis were to avoid nuts, corn, and seeds. This has not been foundto be true. If you find that certain foods create cramping or bloating, avoid that food. Foods high in fiber include: Fresh fruits, fresh vegetables, legumes (beans), whole wheat bread, bran muffins or cereal, and nuts. See the table below for examples of high fiber foods. Remember, your goal is 20- 35 grams per day. Amount of fiber in different foods Food Serving Grams of fiber Fruits Apple (with skin) 1 medium apple 4.4 Banana 1 medium banana 3.1 Oranges 1 orange 3.1 Prunes 1 cup, pitted 12.4 Juices Apple, unsweetened, w/added ascorbic acid 1 cup 0.5 Grapefruit, white, canned, sweetened 1 cup 0.2 Grape, unsweetened, w/added ascorbic acid 1 cup 0.5 [place] 1 cup 0.7 Vegetables Cooked Green beans 1 cup 4.0 Carrots 1/2 cup sliced 2.3 Peas 1 cup 8.8 Potato (baked, with skin) 1 medium potato 3.8 Raw [place] (with peel) 1 cucumber 1.5 Lettuce 1 cup shredded 0.5 Tomato 1 medium tomato 1.5 Spinach 1 cup 0.7 Legumes Baked beans, canned, no salt added 1 cup 13.9 Kidney beans, canned 1 cup 13.6 Morales beans, canned 1 cup 11.6 Lentils, boiled 1 cup 15.6 Breads, pastas, flours Bran muffins 1 medium muffin 5.2 Oatmeal, cooked 1 cup 4.0 White bread 1 slice 0.6 Whole-wheat bread 1 slice 1.9 Pasta and rice, cooked Macaroni 1 cup 2.5 Rice, brown 1 cup 3.5 Rice, white 1 cup 0.6 Spaghetti (regular) 1 cup 2.5 Nuts Almonds 1/2 cup 8.7 Peanuts 1/2 cup 7.9 Chart from [facility] 2013. SEEK IMMEDIATE MEDICAL CARE IF: You develop abdominal (belly) pain. An oral temperature above _ 101 F__develops. Repeated vomiting occurs. Blood is being passed in stools (bright red or black tarry stools). You develop any bowel problems or changes which you have not had before. Extra Information: To learn how much fiber and other nutrients are in different foods, visit the [place] Department of Agriculture (USDA) National Nutrient Database at: http://www.nal.usda.gov/fnic/foodcomp/search/ Created using data from the USDA National Nutrient Database for Standard Reference. Available at http://www.nal.usda.gov/fnic/foodcomp/search/. Information adapted from: [facility] Patient Information 2009 Ak?Lex. [facility] 2012 http://www.[employer].Betterific/contents/uyoojnibhwsr-cjavflb-sfuhoy-the-basics 04/03/2023 10:24:14 Colonoscopy, Care After Surgery [place] (CUSTOM) Colonoscopy Care After Surgery Please read the instructions outlined below and refer to this sheet in the next few weeks. These discharge instructions provide you with general information on caring for yourself after you leave thespital. Your doctor may also give you specific instructions. While your treatment has been planned according to the most current medical practices available, unavoidable complications occasionally occur. If you have any problems or questions after discharge, please call your doctor. ACTIVITY You may resume your regular activity, but move at a slower pace for the next 24 hours. Take frequent rest periods for the next 24 hours. Walking will help get rid of the air and reduce the bloated feeling in your abdomen (belly). No driving for 24 hours (because of the anesthesia (medicine) used during the test). You may shower. Do not sign any important legal documents or operate any machinery for 24 hours (because of the anesthesia used during the test). NUTRITION Drink plenty of fluids. You may resume your normal diet as instructed by your doctor. Begin with a light meal and progress to your normal diet. Heavy or fried foods are harder to digestand may make you feel nauseated (sick to your stomach). Avoid alcoholic beverages for 24 hours or as instructed. MEDICATIONS You may resume your normal medications unless your doctor tells you otherwise. WHAT YOU CAN EXPECT TODAY Some feelings of bloating in the abdomen. Passage of more gas than usual. Spotting of blood in your stool or on the toilet paper. FOLLOW-UP Your doctor will discuss the results of your test with you. SEEK IMMEDIATE MEDICAL ATTENTION IF: There is more than a spotting of blood in your stool. There is abdominal distention (your abdomen is swollen). There is vomiting. You have a temperature over 101.5 F. There is abdominal pain or discomfort that is severe or gets worse throughout the day. 04/03/2023 10:24:09 Hiatal Hernia Hiatal Hernia A hiatal hernia occurs when part of the stomach slides above the muscle that separates the abdomen from the chest (diaphragm). A person can be born with a hiatal hernia (congenital), or it may develop over time. In almost all cases of hiatal hernia, only the top part of the stomach pushes through the diaphragm. Many people have a hiatal hernia with no symptoms. The larger the hernia, the more likely it is that you will have symptoms. In some cases, a hiatal hernia allows stomach acid to flow back into the tube that carries food from your mouth to your stomach (esophagus). This may cause heartburn symptoms. Severe heartburn symptoms may mean that you have developed a condition called gastroesophageal reflux disease (GERD). What are the causes? This condition is caused by a weakness in the opening (hiatus) where the esophagus passes through the diaphragm to attach to the upper part of the stomach. A person may be born with a weakness in thehiatus, or a weakness can develop over time. What increases the risk? This condition is more likely to develop in: Older people. Age is a major risk factor for a hiatal hernia, especially if you are over the age of50. women. People who are overweight. People who have frequent constipation. What are the signs or symptoms? Symptoms of this condition usually develop in the form of GERD symptoms. Symptoms include: Heartburn. Belching. Indigestion. Trouble swallowing. Coughing or wheezing. Sore throat. Hoarseness. Chest pain. Nausea and vomiting. How is this diagnosed? This condition may be diagnosed during testing for GERD. Tests that may be done include: X-rays of your stomach or chest. An upper gastrointestinal (GI) series. This is an X-ray exam of your GI tract that is taken after you swallow a chalky liquid that shows up clearly on the X-ray. Endoscopy. This is a procedure to look into your stomach using a thin, flexible tube that has a tiny camera and light on the end of it. How is this treated? This condition may be treated by: Dietary and lifestyle changes to help reduce GERD symptoms. Medicines. These may include: ?Deky-bad-mmybqrb antacids. ?Medicines that make your stomach empty more quickly. ?Medicines that block the production of stomach acid (H2 blockers). ?Stronger medicines to reduce stomach acid (proton pump inhibitors). Surgery to repair the hernia, if other treatments are not helping. If you have no symptoms, you may not need treatment. Follow these instructions at home: Lifestyle and activity Do not use any products that contain nicotine or tobacco, such as cigarettes and e-cigarettes. If you need help quitting, ask your health care provider. Try to achieve and maintain a healthy body weight. Avoid putting pressure on your abdomen. Anything that puts pressure on your abdomen increases the amount of acid that may be pushed up into your esophagus. ?Avoid bending over, especially after eating. ?Raise the head of your bed by putting blocks under the legs. This keeps your head and esophagus higher than your stomach. ?Do not wear tight clothing around your chest or stomach. ?Try not to strain when having a bowel movement, when urinating, or when lifting heavy objects. Eating and drinking Avoid foods that can worsen GERD symptoms. These may include: ?Fatty foods, like fried foods. ?Floral fruits, like oranges or lemon. ?Other foods and drinks that contain acid, like orange juice or tomatoes. ?Spicy food. ?Chocolate. Eat frequent small meals instead of three large meals a day. This helps prevent your stomach from getting too full. ?Eat slowly. ?Do not lie down right after eating. ?Do not eat 1 2 hours before bed. Do not drink beverages with caffeine. These include cola, coffee, cocoa, and tea. Do not drink alcohol. General instructions Take nwvk-szo-zxtxxho and prescription medicines only as told by your health care provider. Keep all follow-up visits as told by your health care provider. This is important. Contact a health care provider if: Your symptoms are not controlled with medicines or lifestyle changes. You are having trouble swallowing. You have coughing or wheezing that will not go away. Get help right away if: Your pain is getting worse. Your pain spreads to your arms, neck, jaw, teeth, or back. You have shortness of breath. You sweat for no reason. You feel sick to your stomach (nauseous) or you vomit. You vomit blood. You have bright red blood in your stools. You have black, tarry stools. Summary A hiatal hernia occurs when part of the stomach slides above the muscle that separates the abdomen from the chest (diaphragm). A person may be born with a weakness in the hiatus, or a weakness can develop over time. Symptoms of hiatal hernia may include heartburn, trouble swallowing, or sore throat. Management of hiatal hernia includes eating frequent small meals instead of three large meals a day. Get help right away if you vomit blood, have bright red blood in your stools, or have black, tarry stools. This information is not intended to replace advice given to you by your health care provider. Make sure you discuss any questions you have with your health care provider. Document Revised: 08/19/2022 Document Reviewed: 09/05/2021 [employer] Patient Education 2022 [employer] 04/03/2023 10:24:03 Endoscopy, Care After Procedure [facility]) Endoscopy Care After Procedure Please read the instructions outlined below and refer to this sheet in the next few weeks. These discharge instructions provide you with general information on caring for yourself after you leave thespital. Your doctor may also give you specific instructions. While your treatment has been planned according to the most current medical practices available, unavoidable complications occasionally occur. If you have any problems or questions after discharge, please call your doctor. ACTIVITY You may resume your regular activity but move at a slower pace for the next 24 hours. Take frequent rest periods for the next 24 hours. Walking will help expel (get rid of) the air and reduce the bloated feeling in your abdomen. No driving for 24 hours (because of the anesthesia (medicine) used during the test). You may shower. Do not sign any important legal documents or operate any machinery for 24 hours (because of the anesthesia used during the test). NUTRITION Drink plenty of fluids. You may resume your normal diet. Begin with a light meal and progress to your normal diet. Avoid alcoholic beverages for 24 hours or as instructed by your caregiver. MEDICATIONS You may resume your normal medications unless your caregiver tells you otherwise. WHAT YOU CAN EXPECT TODAY You may experience abdominal discomfort such as a feeling of fullness or gas pains. FOLLOW-UP Your doctor will discuss the results of your test with you. SEEK IMMEDIATE MEDICAL ATTENTION IF ANY OF THE FOLLOWING OCCUR: Excessive nausea (feeling sick to your stomach) and/or vomiting. Severe abdominal pain and distention (swelling). Trouble swallowing. Temperature over 100 F (37.8 C). Rectal bleeding or vomiting of blood. Document Released: 05/19/2005 Document Re-Released: 03/29/2007 ExitCare Patient Information 2009 [employer]. Follow Up Care 02/23/2023 10:35:27 With:Michael ALBRIGHT Address: [address] [place], [place] [address] [facility] (1) When:2 weeks [facility]05-30-2023 Note [id number]:127[facility] 02-23-2023 Evaluation + Plan noteExtracted from: Title:NPV Author:Demar Trammell MD Date :02/23/23 Impression and Plan 67-year-old female with significant low back and lower extremity pain consistent lumbar radiculitis secondary to spinal listhesis and foraminal stenosis at the L5-S1 level. I explained the likely etiology of the patient's pain to her and her today. Their questions were addressed. Her pain does not respond to regular use of high-dose NSAIDs as well as a recently completed full course of physical therapy. We discussed the option of bilateral L5/S1 transforaminal epidural steroid injections. The procedure was reviewed with the patient including its risk, benefits, and alternatives. She wishes to proceed. Plan to follow-up 2 weeks after the injection to assess response. Patient agrees with plan of care. Future Appointments Appointment Date:04/03/2023 10:30:00 AM Scheduled Provider: Location:[facility] Appointment Type:Surgery FT Appointment Date:04/28/2023 09:00:00 AM Scheduled Provider:Vicky LAST CNP Location:.Cardiology Clinic Appointment Type:Cardiology Follow Up (FT) [facility]05-05-2023 NoteChief Complaint consultation for abdominal pain HPI Staff 67 year old female presents on consultation from Dr. Mcghee for abdominal pain. Reports epigastric pain, chest pain, dysphagia, early satiety and bloating for several years. States symptoms used to be intermittent but recently have become constant. She is unable to describe pain other than it's more than an ache . Reports difficulty swallowing any foods that need to be chewed. She is able to swallow soft foods and liquids without difficulty. Denies nausea or vomiting. She has been on Protonix formany years. RUQ US completed 02/09 with single gallstone. EGD completed 04/01/21 with chronic gastritis. History of Present Illness 67 yo female with h/o htn, osteoporosis, osteoarthritis, chronic GERD, referred for worsening epigastric abd pain and GERD; patient has had symptoms for years, now constant epigastric pain with radiation to chest, bloating, dysphagia for solid foods, has to take small bites and wash it down with liquids; on Protonix 40 mg daily for several years, has increased it ti bid without improvement; sleeps with head propped up, but awakens frequently; unable to sleep on side, no regurgitation of liquid;no wt loss; no bowel changes; no N/V; has known single gallstone, recent US unchanged; no biliary colic symptoms; no h/o jaundice or pancreatitis; no asa or NSAID use; last EGD 03/2021 with hiatal hernia and antral gastritis; no previous colonoscopy; only abd operation appendectomy; no fmhx of GI malignancy or IBD; no tobacco use. Review of Systems PHQ Score Initial Depression Screen Score: 0 ROS - Provider Constitutional: no fever, no sweats, no weight loss. Eyes: yes glasses, no blurred vision, no visual loss. ENMT: no dentures, no hoarseness, yes swallowing difficulties, no hearing loss, no ear infection(s), no nose bleeds. Cardiovascular: normal blood pressure, no chest pain, regular heartbeat, no heart murmur. Respiratory: no shortness of breath, no cough, no asthma, no wheezing. Gastrointestinal: no nausea, no vomiting, no diarrhea, no constipation, no blood in stool, no change in bowel habits, yes abdominal pain, no hepatitis. Genitourinary: no kidney stones, no urine infection, no dysuria. Musculoskeletal: no pain, no weakness. Skin: no changing moles, no rash, no skin lumps. Neurologic: no seizures, no epilepsy, no headache. Psychiatric: no emotional or psychiatric problem. Heme/Lymph: no bleeding problems, no anemia, no blood clots, no transfusions. Allergy/Immunologic: no swollen lymph nodes/glands, no IV drug abuse. Other: Additional ROS info: Except as noted in the above Review of Systems and in the History of Present Illness, all other systems have been reviewed and are negative or noncontributory. Physical Exam Vitals & Measurements HR: 72(Peripheral) RR: 16 BP: 122/84 HT: 60 in HT: 152 cm WT: 80 kg WT: 176 lb BMI: 34.63 HEENT: normal conjunctiva, sclera clear, no scleral icterus, EOM intact, PERRLA, oral mucosa moist without lesions. Neck: trachea midline, no mass, symmetric, no thyromegaly or nodules, no adenopathy Respiratory: lungs CTA, respirations non labored. Cardiovascular: regular rate and rhythm, no murmur, no pedal edema or varicosities. Gastrointestinal: obese, soft, non distended, no tenderness, no masses, no palpable hernias, diastasis recti no, no hepatosplenomegaly; normal bs Lymphatic: no cervical adenopathy, no supraclavicular adenopathy Musculoskeletal: normal gait, digits and nails without infection, nodes, cyanosis, clubbing. Skin: no rashes, no lesions, no ulcers, no subcutaneous nodules, induration. Psychiatric/Neuro: oriented to time, place, person, judgement normal, affect appropriate for age, insight intact, no focal deficits. Tests: review of old records completed, Discussed surgical options, risks, and possible complications with patient. Assessment/Plan 1. Dysphagia, pharyngoesophageal phase (R13.14: Dysphagia, pharyngoesophageal phase) plan EGD and colonoscopy under anesthesia, informed consent obtained. 2. Chronic GERD, (K21.9: Gastro-esophageal reflux disease without esophagitis) see # 1 Chest pain due to GERD 3. Epigastric pain (R10.13: Epigastric pain) will also check abd ct scan with contrast for further evaluation, will call patient with results. see # 1 Ordered: CT Abdomen/Pelvis w/ Contrast 5. Screening for malignant neoplasm of colon (Z12.11: Encounter for screening for malignant neoplasm of colon) see # 1 Abdominal pain, LUQ (R10.12: Left upper quadrant pain) see # 1 Ordered: CT Abdomen/Pelvis w/ Contrast Chest pain, unspecified (R07.9: Chest pain, unspecified) Follow-up No qualifying data available Problem List/Past Medical History Ongoing BMI 34.0-34.9,adult Chest pain due to GERD Chronic GERD Dysphagia Epigastric pain Gastritis HTN (hypertension) Osteoporosis Regurgitation of stomach contents Screening for malignant neoplasm of colon (more content not included)...[facility]Result Comment: Electronically Signed By: JOSE RAMON CANTRELL, Michael Ward\Date and Time Signed: 02/20/23 16:32 [id number] Hospital Discharge instructions Follow Up Care 10/08/2021 14:10:47 With:Landon Douglas MD Address: [address] [place] [id number] [phone] [facility] Appointment Date:11/05/2022 11:30:00 AM Scheduled Provider:Landon Douglas MD Location:[facility] Appointment Type:Cardiology Follow Up (FT) Future Scheduled Tests Laboratory* Lipid Panel 09/05/21 Radiology* Echo Transthoracic [facility]ments Appointment Date:11/05/2022 11:30:00 AM Scheduled Provider:Landon Douglas MD Location:[facility]ment Type[facility]ments Appointment Date:02/23/2023 12:30:00 PM Scheduled Provider:Demar Trammell MD Location:[facility] Appointment Type:Pain Management - New (FT) Appointment Date:04/28/2023 09:00:00 AM Scheduled Provider:Vicky LAST CNP Location:[facility] Appointment Type:Cardiology Follow Up (FT) General Surgery [place] evaluation + Plan note Future Appointments Appointment Date:04/03/2023 10:30:00 AM Scheduled Provider: Location:[facility] Appointment Type:Surgery FT Appointment Date:04/07/2023 11:00:00 AM Scheduled Provider:Demar Trammell MD Location:[facility] [place] Appointment Type:Pain Management - Follow Up (FT) Appointment Date:04/28/2023 09:00:00 AM Scheduled Provider:Vicky LAST CNP Location:[facility] App[facility]ments Appointment Date:04/20/2023 02:15:00 PM Scheduled Provider:Demar Trammell MD Location:[facility] Appointment Type:Pain Management - Office Injection (FT) Appointment Date:04/28/2023 09:00:00 AM Scheduled Provider:Vicky LAST CNP Location:[facility] Appointment Type:Cardiology Follow Up (FT) Appointment Date:05/04/2023 09:00:00 AM Scheduled Provider:Vicky Catsillo PA-C Location:[facility] Appointment Type:Pain Management - Follow Up (FT) General Surgery [place] [facility] + Plan note Future Appointments Appointment Date:04/28/2023 09:00:00 AM Scheduled Provider:Vicky LAST CNP Location:[facility] Appointment Type:Cardiology Follow Up (FT) Appointment Date:05/04/2023 09:00:00 AM Scheduled Provider:Vicky Castillo PA-C Location:[facility] [place] Appointment Type:[facility] - [facility] App[facility]ments Appointment Date:05/04/2023 09:00:00 AM Scheduled Provider:Vicky Castillo PA-C Location:[facility] [place] Appointment Type:[facility] Management - [facility] Future App[facility]ments Appointment Date:07/14/2023 09:30:00 AM Scheduled Provider:Vicky LAST CNP Location:[facility] App[facility]ment [facility] Future App[facility]ments Appointment Date:11/17/2023 11:30:00 AM Scheduled Provider:Landon DOUGLAS MD Location:[facility] Appointment Type:Cardiology Follow Up (FT) Appointment Date:11/20/2023 01:15:00 PM Scheduled Provider:Vicky Castillo PA-C Location:[facility] [place] Appointment Type:[facility] Management - [facility] Future App[facility]ments Appointment Date:11/20/2023 01:15:00 PM Scheduled Provider:Vicky Castillo PA-C Location:[facility] [place] Appointment Type:Pain Management - Follow Up (FT) Appointment Date:12/14/2023 10:45:00 AM Scheduled Provider:Barry Husain MD Location:[facility] Clinic Appointment Type:Pulmonary New Patient (FT) Appointment Date:12/18/2023 01:45:00 PM Scheduled Provider:Willie Kaur MD Location:[facility] [place] Appointment Type:Cardiology Follow Up (FT) [facility] course Narrative No data available for this section [facility] Discharge instructions No data available for this section [facility] No data available for this section [facility] Summary Purpose Family History No Family History Records FoundNo Family History Records FoundNo Family History Records Found No data available for this section No Family History Records Found No data available for this section No data available for this section No data available for this section No data available for this section No data available for this section No data available for this section No Family History Records Found Advance Directives No Advanced Directives Records FoundNo Advanced Directives Records FoundNo Advanced Directives Records FoundNo Advanced Directives Records FoundNo Advanced Directives Records Found Additional Source Comments INFORMATION SOURCE (unrecogn ized section and content) DATE CREATED AUTHOR 04/15/2018 [facility] DATE CREATED AUTHOR AUTHOR'S ORGANIZ ATION 12/02/2021 [facility] DATE CREATED AUTHOR AUTHOR'S ORGANIZ ATION 03/04/2023 [facility] DATE CREATED AUTHOR AUTHOR'S ORGANIZ ATION 09/16/2023 [facility] EPIC DATE CREATED AUTHOR AUTHOR'S ORGANIZ ATION 11/21/2023 [place] Care Team (unrecognized sect ion and content) Personnel Name: Yarelis Mcghee MD Address: [address] [place] [address], [address] Personnel Name: Yarelis Mcghee MD Address: [address] [place] [address] Personnel Name: Yarelis Mcghee MD Address: Address: [address] [place], [place] [address], [address] Personnel Name: Yarelis Mcghee MD Address: Address: [address] [place], [place] [address], [facility] Personnel Name: Yarelis Mcghee MD Address: Address: [address] [place], [place] [address], [address] Personnel Name: Yarelis Mcghee MD Address: Address: [address] [place], [place] [address], [facility] Personnel Name: Yarelis Mcghee MD Address: Address: [address] [place] [address], [facility] Personnel Name: Yarelis Mcghee MD Address: Address: [address] [place], [place] [address], [facility] Personnel Name: Yarelis Mcghee MD Address: Address: [address] [place], [place] [address], [facility] Personnel Name: Yarelis Mcghee MD Address: Address: [address] [place], [place] [address], [facility] Personnel Name: Yarelis Mcghee MD Address: Address: [address] [place], [place] [address], [facility] Personnel Name: Yarelis Mcghee MD Address: Address: [address] [place], [place] [address], [place] [address]- [place] Personnel Name: Yarelis Mcghee MD Address: Address: [address] [place] [address] [place] [address]- [place] Personnel Name: Yarelis Mcghee MD Address: Address: [address] [place] [address] [place] [address]- [place] Personnel Name: Yarelis Mcghee MD Address: Address: [address] [place] [address] [place] [address]- [place] Personnel Name: Yarelis Mcghee MD Address: Address: [address] [place] [address] [place] [address]- [place] Personnel Name: Yarelis Mcghee MD Address: Address: [address] [place] [address] [place] [address]- [place] Personnel Name: Yarelis Mcghee MD Address: Address: [address] [place] [address] [place] [address]- [place] Personnel Name: Yarelis Mcghee MD Address: Address: [address] [place] [address] [place] [address]- [place] Personnel Name: Yarelis Mcghee MD Address: Address: [address] [place] [address] [place] [address]- [place] Personnel Name: Yarelis Mcghee MD Address: Address: [address] [place] [address] [place] [address]- [place] Personnel Name: Yarelis Mcghee MD Address: Address: [address] [place] [address] [place] [address]- [place] FOR RECORDS PERTAINING TO PATIENTS WHO ARE OR HAVE BEEN ENROLLED IN A CHEMICAL DEPENDENCY/SUBSTANCEABUSE PROGRAM, SOME INFORMATION MAY BE OMITTED. This clinical summary was aggregated from multiple sources. Caution should be exercised in using it in the provision of clinical care. This summary normalizes information from multiple sources, and as a consequence, information in this document may materially change the coding, format and clinical context of patient data. In addition, data may be omitted in some cases. CLINICAL DECISIONS SHOULD BE BASED ON THE PRIMARY CLINICAL RECORDS. [facility] [employer] provides no warranty or guarantee of the accuracy or completeness of information in this document.
[2023-11-30 10:08] LABS: Age Gdln ACOG Testing Note (.); Pap IG (Image Guided) Note (.)
== END 2023-11-25 21:07 | disposition home or self-care (01) ==
LOC: LAB 21:06
PROVIDERS: PCP Family Medicine; Visit Provider Physician Assistant
DX: Z01.419 Encounter for gynecological examination (general) (routine) without abnormal findings (principal)
CPT/HCPCS: G0145

== ENCOUNTER 2023-11-30 07:44 | Outpatient (OUT) | payer MEDICARE, SELFPAY ==
--- OUTSIDE RECORDS SUMMARY | 2023-11-30 07:47 | XMS_ITS | CCD ---
Author Name Unknown Address [address] [place] [address] [facility] Care Team Providers Care Director Of Assisted Living Name Role Phone Adryan Yoon Unavailable Unavailable Adryan Yoon Unavailable Unavailable YARELIS MCGHEE Unavailable Unavailable Fernie Sandoval Unavailable Unavailable Yarelis Mcghee Primary Care Physician [phone] BR[address] ., DR RANGEL Admitting Unavailabl e KARASIK ., DR RANGEL Consulting Unavailabl e [...] e ZIEBER, DR RYAN Billingsley Consulting Unavailable Vicky Castillo Attending Unavailable FRANCO Castillo Admitting Unavailabl e Yarelis Mcghee Referring Unavailable Yarelis Mcghee Referring Unavailable Demar Trammell Attending Unavailable Demar Trammell Admitting Unavailable Cry, Yarelis Referring Unavailable Demar Trammell Attending Unavailable MD Demar Trammell Admitting Unavailable Hoy, Yarelis Referring Unavailable Vicky Castillo Attending Unavailable FRANCO Castillo Admitting Unavailabl e MD Demar Trammell Admitting Unavailable ValeriDemar Attending Unavailable Hoy, Yarelis Referring Unavailable NONE, XXXX Referring Unavailable STANG, Vicky L Attending Unavailable STANG, Vicky L Admitting Unavailable NONE, XXXX Referring Unavailable Landon DOUGLAS Attending Unavailable Landon DOUGLAS Admitting Unavailable NILL, R Attending Unavailable NILL, R Attending Unavailable Vicky Castillo Attending Unavailable Yarelis Mcghee Referring Unavailable FRANCO Castillo Admitting Unavailabl e NONE, XXXX Referring Unavailable Landon DOUGLAS Attending Unavailable Landon DOUGLAS Admitting Unavailable NONE, XXXX Referring Unavailable STANG, Vicky L Attending Unavailable STANG, Vicky L Admitting Unavailable NILL, R Referring Unavailable NILL, R Attending Unavailable ASUNCIONL, R Admitting Unavailable MD Demar Trammell Admitting Unavailable Demar Trammell Referring Unavailable Demar Trammell Attending Unavailable Claudio Monroe Referring Unavailable Claudio Monroe Attending Unavailable Claudio Monroe Admitting Unavailable Vicky Castillo Attending Unavailable Vicky Castillo Admitting Unavailable Prasad Avalos Attending Unavailable Landon DOUGLAS Referring Unavailable Husain, Basem GRuba Attending Unavailable Husain, Basem G. Admitting Unavailable Husain Basebartolome G. Referring Unavailable Husain, Basem GRuba Attending Unavailable Vicky Castillo Attending Unavailable Yarelis Mcghee Referring Unavailable FRANCO Castillo Admitting UnavailMD Demar Holguin Admitting Unavailable Demar Trammell Attending Unavailable Yarelis Mcghee Referring Unavailable ANTIONETTE YANG Attending Unavailable THIERRY VILLALOBOS Attending Unavailable Yarelis Mcghee MD Primary Care Provider [phone] Allergies Allergy Classification Reported Allergen(s) Allergy Type Date of Onset Reaction(s) Facility (1 source) Sulfonamide; Translations: [sulfonamide] Propensity to adverse reactions to drug (disorder) [facility] Rep[facility] (20 sources) Sulfonamides (Antibiotic); Translations: [sulfa drugs] Drug allergy unknown [facility] (20 sources) Lisinopril; Translations: [lisinopril] Drug Allergy Coughing - function (qualifier value) [facility] (1 source) Sulfonamides (Antibiotic) Drug allergy (disorder) [facility] (12 sources) gabapentin; Translations: [gabapentin] Drug Allergy 3 Headache (finding), Headache [facility] (2 sources) Lisinopril Propensity to adverse reactions 3 [facility] (2 sources) Sulfonamides (Antibiotic) Drug Allergy 3 [facility] Medications Current Medications Medication Drug Class(es) Dates Sig (Normalized) Sig (Original) alendronic acid 70 mg oral tablet (20 sources) Bisphosphonate Start: 11-25-2023 End: 06-08-2024 take 1 tablet by mouth in the morning alendronate (Fosamax) 70 MG tablet Indications: Other osteoporosis, unspecified pathological fracture presence (CMS/HCC) Take 1 tablet (70 mg) by mouth every 7 (seven) days Take in the morning with a full glass of water, on an empty stomach, and do not take anything else by mouth or lie down for the next 30 min. 4 tablet 6 11/25/2023 06/08/2024 Active Start: 02-23-2023 take 1 tablet by herberth th every week alendronate 70 mg Tab TAKE 1 TABLET BY MOUTH 30 MINUTES BEFORE first food once a week, Prophylaxis Start Date: 02/23/23 Status: Ordered gabapentin 300 mg oral capsule (8 sources) Anti-epileptic Agent Start: 05-04-2023 End: 11-25-2023 gabapentin 300 mg Cap 300 mg = 1 cap(s), Oral, BID, start with once a day for a week. If doing ok can increase to BID, # 60 cap(s), Refills(s) 0, Pharmacy: [facility], 152, cm, 05/04/23 8:55:00 EDT, Height/Length Dosing, 72.6, kg, 05/04/23 8:55:00 EDT, Weight Dosing Start Date: 05/04/23 Status: Ordered hydroCHLOROthiazide 12.5 mg oral capsule (6 sources) Thiazide Diuretic Start: 11-17-2023 take 1 capsule by mouth in the morning hydroCHLOROthiazide (Microzide) 12.5 MG capsule Take 12.5 mg by mouth in the morning. 0 11/17/2023 Active linaclotide 0.072 mg oral capsule (3 sources) Guanylate Cyclase-C Agonist Start: 03-19-2021 take 1 capsule by mouth once daily Linzess 72 mcg oral capsule 72 mcg = 1 cap(s), Oral, Daily, Refills(s) 0 Start Date: 03/19/21 Status: Ordered lisinopril 20 mg oral tablet (3 sources) Angiotensin Converting Enzyme Inhibitor Start: 09-01-2021 take 1 tablet by mouth once daily lisinopril 20 mg Tab 20 mg = 1 tab(s), Oral, Daily, # 30 tab(s), Refills(s) 0 Start Date: 09/01/21 Status: Ordered losartan potassium 100 mg oral tablet (20 sources) Angiotensin 2 Receptor Hermilo Start: 07-14-2023 take 1 tablet by mouth at bedtime losartan 100 mg Tab 100 mg = 1 tab(s), Oral, Bedtime, # 90 tab(s), Refills(s) 1, Pharmacy: [facility], 152, cm, 07/14/23 9:26:00 EDT, Height/Length Dosing, 76.9, kg, 07/14/23 9:26:00 EDT, Weight Dosing Start Date: 07/14/23 Status: Ordered Start: 06-30-2023 End: 07-30-2023 take 1 tablet by mouth twice daily losartan 50 mg Tab 50 mg = 1 tab(s), Oral, BID, X 30 day(s), # 60 tab(s), Refills(s) 0, Pharmacy: [facility], 152, cm, 06/30/23 15:07:00 EDT, Height/Length Dosing, 77.5, kg, 06/30/23 15:07:00 EDT, Weight Dosing Start Date: 06/30/23 Stop Date: 07/30/23 Status: Ordered Start: 06-05-2023 End: 07-05-2023 take 1 tablet by mouth once daily losartan 50 mg Tab 50 mg = 1 tab(s), Oral, Daily, X 30 day(s), # 30 tab(s), Refills(s) 0, Pharmacy: [facility], 152.4, cm, 06/05/23 8:54:00 EDT, Height/Length Dosing, 73, kg, 06/05/23 8:54:00 EDT, Weight Dosing Start Date: 06/05/23 Stop Date: 07/05/23 Status: Ordered Start: 11-05-2022 End: 10-31-2023 take 1 tablet by mouth once daily Cozaar 25 mg Tab 25 mg = 1 tab(s), Oral, Daily, stopping Lisinopril Starting Cozaar, X 90 day(s), # 90 tab(s), Refills(s) 3, Pharmacy: [facility], 152, cm, 11/05/22 11:35:00 EST, Height/Length Dosing, 76, kg, 11/05/22 11:35:00 EST, Weight Dosing Start Date: 11/05/22 Stop Date: 10/31/23 Status: Ordered losartan (Cozaar ) 25 MG tablet Take 100 mg by mouth. 0 Active magnesium oxide 400 mg oral tablet (2 sources) Start: 11-25-2023 End: 06-22-2024 take 1 tablet by mouth in the morning magnesium oxide (Mag-Ox) 400 MG tablet Indications: Restless legs Take 1 tablet (400 mg) by mouth in the morning. 30 tablet 6 11/25/2023 06/22/2024 Active methylPREDNISolone 4 mg oral tablet (1 source) Corticosteroid Start: 09-22-2023 End: 09-28-2023 Medrol 4 mg Tab = 1 packet(s), Oral, As Directed, as directed on package labeling, X 6 day(s), # 21 tab(s), Refills(s) 0, Pharmacy: [facility], 152, cm, 09/22/23 11:39:00 EST, Height/Length [...] Daily, # 90 tab(s), Refills(s) 1, Pharmacy: [facility], 152, cm, 07/14/23 9:26:00 EDT, Height/Length Dosing, 76.9, kg, 07/14/23 9:26:00 EDT, Weight Dosing Start Date: 07/14/23 Status: Ordered Start: 11-14-2022 take 1 tablet by herberth th once daily metoprolol 25 mg ER Tab 25 mg = 1 tab(s), Oral, Daily, # 90 tab(s), Refills(s) 3, Pharmacy: [facility], 152, cm, 11/05/22 11:35:00 EST, Height/Length Dosing, 76, kg, 11/05/22 11:35:00 EST, Weight Dosing Start Date: 11/14/22 Status: Ordered Start: 10-08-2021 End: 10-03-2022 take 1 tablet by mouth once daily Toprol XL 25 mg Tab-ER 25 mg = 1 tab(s), Oral, Daily, X 90 day(s), # 90 tab(s), Refills(s) 3, Pharmacy: [facility], 152, cm, 10/08/21 13:49:00 EST, Height/Length Dosing, 73, kg, 10/08/21 13:49:00 EST, Weight Dosing Start Date: 10/08/21 Stop Date: 10/03/22 Status: Ordered take 1 tablet by herberth th every twenty-four hours metoprolol succinate XL (Toprol-XL) 25 MG 24 hr tablet Take 50 mg by mouth. Do not crush or chew. 0 Active Multi Vitamin+ (6 sources) Start: 09-22-2023 Multi [...] BID, # 120 tab(s), Refills(s) 0, Pharmacy: [facility], 152.4, cm, 04/01/21 7:20:00 EDT, Height/Length [...] BID, # 60 cap(s), Refills(s) 0, Pharmacy: [facility], 152, cm, 10/26/23 13:07:00 EST, Height/Length Dosing, 70.5, kg, 10/26/23 13:07:00 EST, Weight Dosing Start Date: 10/26/23 Status: Ordered rOPINIRole 0.5 mg oral tablet (12 sources) Nonergot Dopamine Agonist Start: 02-23-2023 ropinirole 0.5 mg, Oral, Refills(s) 0 Start Date: 09/22/23 Status: Ordered sucralfate 1000 mg oral tablet (20 sources) Aluminum Complex Start: 04-03-2023 take 1 tablet by mouth four times daily Carafate 1 gram Tab 1 gm = 1 tab(s), Oral, QID, # 120 tab(s), Refills(s) 3, Pharmacy: [facility], 152, cm, 04/03/23 9:20:00 EDT, Height/Length Dosing, 80, kg, 04/03/23 9:20:00 EDT, Weight Dosing Start Date: 04/03/23 Status: Ordered Start: 09-01-2021 sucralfate ora l susp Refills(s) 0 Start Date: 09/01/21 Status: Ordered Start: 03-07-2021 Carafate 1 g/1 0 mL Susp-Oral 100 mg/ml, Oral, q4hr, Refills(s) 0 Start Date: 03/07/21 Status: Ordered take 1 g by mouth ev debbie six hours sucralfate (Carafate) 1 GM/10ML suspension Take 1 g by mouth every 6 (six) hours. 0 Active Completed/Discontinued Medications Medication Drug Class(es) Dates Sig [...] [Diaphragmatic hernia without obstruction or gangrene] Onset: 3 Episodic Abdominal pain (20 sources) Epigastric pain; Translations: [Epigastric pain] Onset: 3 Episodic Acquired foot deformities (2 sources) Hallux valgus AND bunion; Translations: [Hallux valgus (acquired), right foot] Onset: 3 05-21-2023 Chronic Appendicitis and other appendiceal conditions (20 sources) [...] disorders (19 sources) Dysphagia 02-20-2023 Episodic Other hereditary and degenerative nervous system conditions (2 sources) Restless legs; Translations: [Restless legs syndrome] 11-25-2023 Chronic Other lower respiratory disease (20 sources) Cough 04-17-2021 Episodic Other nutritional; endocrine; and metabolic disorders (20 sources) Body mass index 30+ - obesity 03-08-2021 Chronic Other screening for suspected conditions (not mental disorders or infectious disease) (13 sources) Screening for malignant neoplasm of colon [...] Facility Consent for Treatmenton Consent for Treatment [id number]#1.00TIFF Normal [facility] Consultation Noteon 11-20-19 Consultation Note Patient: CHLOE [...] QID, # 120 tab(s), Refills(s) 3, Pharmacy: [facility], 152, cm, 04/03/23 9:20:00 EDT, Height/Length Dosing, 80, kg, 04/03/23 9:20:00 EDT, Weight Dosing Protonix 40 mg Tab-DR: 40 mg = 1 tab(s), Oral, BID, # 120 tab(s), Refills(s) 0, Pharmacy: [facility], 152.4, cm, 04/01/21 7:20:00 EDT, Height/Length Dosing, 85.5, kg, 04/01/21 7:20:00 EDT, Weight Dosing hydrochlorothiazide 12.5 mg Cap: 12.5 mg = 1 cap(s), Oral, Daily, # 30 cap(s), Refills(s) 6, Pharmacy: [facility], 152, cm, 11/17/23 11:29:00 EST, Height/Length Dosing, 79.6, kg, 11/17/23 11:29:00 EST, Weight Dosing losartan 100 mg Tab: 100 mg = 1 tab(s), Oral, Bedtime, # 90 tab(s), Refills(s) 1, Pharmacy: [facility], 152, cm, 07/14/23 9:26:00 EDT, Height/Length Dosing, 76.9, kg, 07/14/23 9:26:00 EDT, Weight Dosing pregabalin 25 mg Cap: 25 mg = 1 cap(s), Oral, BID, start with once a day for 3-5 days. If doing well can go to BID, # 60 cap(s), Refills(s) 0, Pharmacy: [facility], 152, cm, 10/26/23 13:07:00 EST, Height/Length [...] All Problems Chronic GERD / SNOMED CT 947347048 / Confirmed Unilateral primary osteoarthritis, right knee / SNOMED CT 1594803498 / Confirmed Gastritis / SNOMED CT 1620402 / Confirmed Vertigo / SNOMED CT 2329041381 / Confirmed BMI 34.0-34.9,adult / SNOMED CT 018616950 / Confirmed Regurgitation of stomach contents / SNOMED CT 587005510 / Confirmed Osteoporosis / SNOMED CT 379382859 / Confirmed HTN (hypertension) / SNOMED CT 5447708211 / Confirmed Dysphagia / SNOMED CT 51402040 / Confirmed Epigastric pain / SNOMED CT 960074708 / Confirmed Chest pain due to GERD / SNOMED CT 79129269 / Confirmed Screening for malignant neoplasm of colon / SNOMED CT 100745445 / Confirmed H/O: osteoarthritis / SNOMED CT 885391857 / Confirmed Hiatal hernia with gastroesophageal reflux / SNOMED CT 2495836644 / Confirmed Duodenogastric bile reflux / SNOMED CT 24225144 / Confirmed Sigmoid diverticulosis / SNOMED CT 8595534163 / Confirmed Tendonitis / SNOMED CT 84877568 / Confirmed Resolved: GERD - Gastro-esophageal reflux disease / SNOMED CT 0376382311 Resolved: Appendicitis / SNOMED CT 657020416 Resolved: Cough / SNOMED CT 54335675 Resolved: Sinus drainage / SNOMED CT 221281105 Canceled: GERD with apnea / SNOMED CT 7739196665 Objective Vital Signs 11/20/2023 13:11 EST Peripheral [...] extremity streng (more content not included)... Normal [facility] Comment on above: Result Comment: Elec tronically Signed By: Vicky Castillo PA-C\.br\Date and Time Signed: 11/20/23 13:40 EST Office/Clinic Note-Physician on 11-20-2023 Office/Clinic Note-Physician [id number]#1.00TIFF Normal [facility] Patient Correspondenceon Patient Correspondence [id number]#1.00TIFF [facility] Consent for Treatmenton 10-21 Consent for Treatment [id number]#1.00TIFF [facility] Heart and Vascular Office/Cl inic Noteon 11-17-2023 Heart and Vascular Office/Clinic Note History of Present Illness Patient is a very pleasant 68-year-old hypertensive female, nondiabetic, non-smoker, referred to our office after she went to the emergency room on 09/02/2021 with abdominal pain radiating into her back. She reportedly had a stress test, echocardiogram and Holter monitor at [facility] prior to her ER visit on 09/02/2021. Troponins were negative x1, and she was assigned a heart score of 4 and discharged home. In addition the patient apparently had a syncopal episode several weeks prior to her presentation, but cannot recall whether she had any chest pain prior to her syncope.. Her echocardiogram done at [place] on 08/20/2021 which showed left ventricular systolic [...] took place at an outside facility at [place] on 09/03/2021 which was read as normal. [...] In addition she has a brother in [place] who apparently has coronary disease the specific [...] doctor Dr. Zambrano. Patient went to Dr. Marqeuz of GI and was not happy with [...] concerning lesion (more content not included)... Normal [facility] Comment on above: Result Comment: Elec tronically Signed By: MISAEL CANTRELL, Landon Mckinley\.elmo\Date and Time Signed: 11/17/23 11:44 EST Physician Orderon 11-17-2023 Physician Order [id number]#1.00TIFF Normal [facility] XR Pelvis 1 or 2 Viewson [...] mGy = na DAP = na Normal [facility] XR Spine Lumbosacral 2 or 3 [...] SCOTTY Technologist: DANIELLE Technical Comments Radiation Dose: Rajanr in mGy = na DAP = na Normal [facility] Consent for Treatmenton Consent for Treatment [id number]#1.00TIFF Normal [facility] Consent for Treatment [id number]#1.00TIFF Normal [facility] Consultation Noteon 10-26-19 24 Consultation Note [...] QID, # 120 tab(s), Refills(s) 3, Pharmacy: [facility], 152, cm, 04/03/23 9:20:00 EDT, Height/Length Dosing, 80, kg, 04/03/23 9:20:00 EDT, Weight Dosing Protonix 40 mg Tab-DR: 40 mg = 1 tab(s), Oral, BID, # 120 tab(s), Refills(s) 0, Pharmacy: [facility], 152.4, cm, 04/01/21 7:20:00 EDT, Height/Length Dosing, 85.5, kg, 04/01/21 7:20:00 EDT, Weight Dosing losartan 100 mg Tab: 100 mg = 1 tab(s), Oral, Bedtime, # 90 tab(s), Refills(s) 1, Pharmacy: [facility], 152, cm, 07/14/23 9:26:00 EDT, Height/Length Dosing, 76.9, kg, 07/14/23 9:26:00 EDT, Weight Dosing metoprolol 50 mg ER Tab: 50 mg = 1 tab(s), Oral, Daily, # 90 tab(s), Refills(s) 1, Pharmacy: [facility], 152, cm, 07/14/23 9:26:00 EDT, Height/Length Dosing, 76.9, kg, 07/14/23 9:26:00 EDT, Weight Dosing pregabalin 25 mg Cap: 25 mg = 1 cap(s), Oral, BID, start with once a day for 3-5 days. If doing well can go to BID, # 60 cap(s), Refills(s) 0, Pharmacy: [facility], 152, cm, 10/26/23 13:07:00 EST, Height/Length Dosing, 70.5, kg, 10/26/23 13:07:00 EST, Weigh... Documented Medications Documented Aleve: Refills(s) 0 Multi Vitamin+: Oral, Daily, Refill(s) 0 alendronate 70 mg Tab: TAKE 1 TABLET BY MOUTH 30 MINUTES BEFORE first food once a week, Prophylaxis ropinirole: 0.5 mg, Oral, Refills(s) 0 Problem list: All Problems Chronic GERD / SNOMED CT 666416303 / Confirmed Unilateral primary osteoarthritis, right knee / SNOMED CT 3767445406 / Confirmed Gastritis / SNOMED CT 4416510 / Confirmed Vertigo / SNOMED CT 1315820723 / Confirmed BMI 34.0-34.9,adult / SNOMED CT 911516174 / Confirmed Regurgitation of stomach contents / SNOMED CT 846707268 / Confirmed Osteoporosis / SNOMED CT 751562141 / Confirmed HTN (hypertension) / SNOMED CT 6765691168 / Confirmed Dysphagia / SNOMED CT 83500326 / Confirmed Epigastric pain / SNOMED CT 955600976 / Confirmed Chest pain due to GERD / SNOMED CT 16073631 / Confirmed Screening for malignant neoplasm of colon / SNOMED CT 617261692 / Confirmed H/O: osteoarthritis / SNOMED CT 641190224 / Confirmed Hiatal hernia with gastroesophageal reflux / SNOMED CT 7410883233 / Confirmed Duodenogastric bile reflux / SNOMED CT 72729462 / Confirmed Sigmoid diverticulosis / SNOMED CT 5551859513 / Confirmed Tendonitis / SNOMED CT 60414458 / Confirmed Resolved: GERD - Gastro-esophageal reflux disease / SNOMED CT 5599660652 Resolved: Appendicitis / SNOMED CT 400227626 Resolved: Cough / SNOMED CT 82073422 Resolved: Sinus drainage / SNOMED CT 844012803 Canceled: GERD with apnea / SNOMED CT 0565047439 Objective Vital Signs 10/26/2023 12:48 EST Peripheral Pulse Rate 66 bpm Respiratory Rate 20 br/min Systolic Blood Pressure 143 mmHg HI Diastolic Blood Pressure 88 mmHg Mean Arterial Pressure, Cuff 106 mmHg General: Alert and oriented, No acute distress. Overweight Eye: Normal conjunctiva. HENT: Normocephalic, Normal hearing. Cardiovascular: No edema. Musculoskeletal Nor (more content not included)... Normal [facility] Comment on above: Result Comment: Elec tronically Signed By: Anna GAMEZ, Vicky\.br\Date and Time Signed: 10/26/23 13:22 EST Legal Correspondence Officeo n 10-26-2023 Legal Correspondence Office [id number]#1.00TIFF Normal [facility] Office/Clinic Note-Physician on 10-26-2023 Office/Clinic Note-Physician [id number]#1.00TIFF Normal [facility] Patient Correspondenceon Patient Correspondence [id number]#1.00TIFF Normal [facility] Patient Correspondence [id number]#1.00TIFF Normal [facility] Patient Correspondence [id number]#1.00TIFF Normal [facility] Patient Correspondence [id number]#1.00TIFF Normal [facility] Patient History Officeon Patient History Office [id number]#1.00TIFF Normal [facility] Physician Orderon 10-26-2023 Physician Order [id number]#1.00TIFF Normal [facility] Physician Order [id number]#1.00TIFF Normal [facility] Consent for Procedure/Surger yon 10-07-2023 Consent for Procedure/Surgery [id number]#1.00TIFF Normal [facility] Consent for Treatmenton 09-19 Consent for Treatment [id number]#1.00TIFF Normal [facility] Discharge Instructionson Discharge Instructions [id number]#1.00TIFF Normal [facility] IntraOperative Documentson 1 12-08-2022 IntraOperative Documents [id number]#1.00TIFF Normal [facility] Main OR Intraoperative Recor don 10-07-2023 Main OR Intraoperative Record IntraOp Document Type FTPM Summary Primary Physician: Claudio Monroe DO Finalized Date/Time: 10/07/23 09:50:14 Pt. Name: ANYCHLOE/Sex: 1955 Female Med Rec #: [id number] Physician: Claudio Monroe DO Financial #: [id number] Pt. Type: P Room/Bed: / Admit/Disch: 10/07/23 08:38:44 - Institution: Case Times FTPM Entry 1 Patient Times In Room 10/07/23 09:41:00 Out Room 10/07/23 09:50:00 Procedure Times Start 10/07/23 09:44:00 Stop 10/07/23 09:49:00 Anesthesia Times Last Modified By: Bhargav DUMONT, Lashanda Mckinley 10/07/23 09:49:58 Case Attendance FTPM Entry 1 Entry 2 Entry 3 Case Attendee Claudio Monroe DO, RN, Lashanda Erickson RN, Antoinette Alisha Role Performed Surgeon - Primary Heat Treat Operator - Primary Scrub - Primary Time In 10/07/23 09:41:00 10/07/23 09:41:00 10/07/23 09:41:00 Time Out 10/07/23 09:50:00 10/07/23 09:50:00 10/07/23 09:50:00 Procedure TRANSFORAMINAL EPIDURAL TRANSFORAMINAL EPIDURAL TRANSFORAMINAL EPIDURAL STEROID INJECTIO(Right) STEROID INJECTIO(Right) STEROID INJECTIO(Right) Comments Last Modified By: Bhargav DUMONT, Lashanda Durant RN, Lashanda Elizalde RN 10/07/23 09:49:59 10/07/23 09:49:59 10/07/23 09:49:59 Entry 4 Case Attendee Faustino Dorado Role Performed [employer] Time In 10/07/23 09:41:00 Time Out 10/07/23 [...] No Time Out Lashanda Durant RN, Given Participants Georgina DUMONT, Fer Cruz DO, Bradford A., Faustino Dorado Time Out Complete 10/07/23 09:41:00 Outcomes Met? [...] and tissue Entry 1 Skin Integrity Intact, [place], Warm, and Skin Abnormality No Dry Outcomes Met? Yes Last Modified By: Lashnada Durant RN 10/07/23 09:32:15 Post-Care Text: The [...] Press Point (more content not included)... Normal [facility] Main OR Preoperative Recordo n 10-07-2023 Main OR Preoperative Record Holding Area Document Type FTPM Summary Primary Physician: Claudio Monroe DO Finalized Date/Time: 10/07/23 09:09:26 Pt. Name: CHLOE AGARWAL/Sex: 1955 Female Med Rec #: [id number] Physician: Claudio Monroe DO Financial #: [id number] Pt. Type: P Room/Bed: / Admit/Disch: 10/07/23 [...] Comments: Complaints of Pain: Yes Pain Comment: 02/25 to right lower back Operative Site Yes [...] Signed By: Shea Aguirre RN 10/07/23 09:[address] [facility] Patient Correspondenceon Patient Correspondence [id number]#1.00TIFF [facility] Consent for Treatmenton Consent for Treatment [id number]#1.00TIFF [facility] Consultation Noteon 09-22-20 Consultation Note Patient: CHLOE AGARWAL Age: 67 years Sex: Female : 1955 Associated Diagnoses: None Author: Valeri CANTRELL, Demar Leal Subjective Chief complaint 09/22/2023 11:23 EST Back [...] QID, # 120 tab(s), Refills(s) 3, Pharmacy: [facility], 152, cm, 04/03/23 9:20:00 EDT, Height/Length Dosing, 80, kg, 04/03/23 9:20:00 EDT, Weight Dosing Medrol 4 mg Tab: = 1 packet(s), Oral, As Directed, as directed on package labeling, X 6 day(s), # 21 tab(s), Refills(s) 0, Pharmacy: [facility], 152, cm, 09/22/23 11:39:00 EST, Height/Length Dosing, 70.5, kg, 09/22/23 11:39:00 EST, Weight Dosing Protonix 40 mg Tab-DR: 40 mg = 1 tab(s), Oral, BID, # 120 tab(s), Refills(s) 0, Pharmacy: [facility], 152.4, cm, 04/01/21 7:20:00 EDT, Height/Length Dosing, 85.5, kg, 04/01/21 7:20:00 EDT, Weight Dosing losartan 100 mg Tab: 100 mg = 1 tab(s), Oral, Bedtime, # 90 tab(s), Refills(s) 1, Pharmacy: [facility], 152, cm, 07/14/23 9:26:00 EDT, Height/Length Dosing, 76.9, kg, 07/14/23 9:26:00 EDT, Weight Dosing metoprolol 50 mg ER Tab: 50 mg = 1 tab(s), Oral, Daily, # 90 tab(s), Refills(s) 1, Pharmacy: [facility], 152, cm, 07/14/23 9:26:00 EDT, Height/Length Dosing, 76.9, kg, 07/14/23 9:26:00 EDT, Weight Dosing Documented Medications Documented Aleve: Refills(s) 0 Multi Vitamin+: Refill(s) 0 alendronate 70 mg Tab: TAKE 1 TABLET BY MOUTH 30 MINUTES BEFORE first food once a week, Prophylaxis ropinirole: 0.5 mg, Oral, Refills(s) 0 Problem list: All Problems BMI 34.0-34.9,adult / SNOMED CT 981664690 / Confirmed Chest pain due to GERD / SNOMED CT 74232039 / Confirmed Chronic GERD / SNOMED CT 341358374 / Confirmed Duodenogastric bile reflux / SNOMED CT 68993330 / Confirmed Dysphagia / SNOMED CT 65665842 / Confirmed Epigastric pain / SNOMED CT 967871020 / Confirmed Gastritis / SNOMED CT 8545538 / Confirmed H/O: osteoarthritis / SNOMED CT 045352685 / Confirmed Hiatal hernia with gastroesophageal reflux / SNOMED CT 8818062234 / Confirmed HTN (hypertension) / SNOMED CT 4543689312 / Confirmed Osteoporosis / SNOMED CT 584975649 / Confirmed Regurgitation of stomach contents / SNOMED CT 578105596 / Confirmed Screening for malignant neoplasm of colon / SNOMED CT 015999783 / Confirmed Sigmoid diverticulosis / SNOMED CT 0140253636 / Confirmed Tendonitis / SNOMED CT 68929900 / Confirmed Unilateral primary osteoarthritis, right knee / SNOMED CT 7173458175 / Confirmed Vertigo / SNOMED CT 3423695651 / Confirmed Objective Vital Signs 09/22/2023 11:23 [...] after she (more content not included)... Normal [facility] Comment on above: Result Comment: Elec tronically Signed By: Valeri CANTRELL, Demar Preston.br\Date and Time Signed: 09/22/23 11:54 EST Office/Clinic Note-Physician on 09-22-2023 Office/Clinic Note-Physician [id number]#1.00TIFF Normal [facility] Patient Correspondenceon Patient Correspondence [id number]#1.00TIFF Normal [facility] Patient Correspondence [id number]#1.00TIFF Normal [facility] Patient History Officeon Patient History Office [id number]#1.00TIFF Normal [facility] Physician Orderon 07-28-2023 Physician Order [id number]#1.00TIFF Normal [facility] Consenton 07-24-2023 Consent [id number]#1.00TIFF Normal [facility] Patient Eval Forms Officeon 07-24-2023 Patient Eval Forms Office [id number]#1.00TIFF [facility] Patient Eval Forms Office [id number]#1.00TIFF [facility] Consent for Treatmenton 10-0 Consent for Treatment [id number]#1.00TIFF [facility] Physician Orderon 07-16-2023 Physician Order [id number]#1.00CD:[address] [facility] Heart and Vascular Office/Cl inic [...] Bedtime, # 90 tab(s), Refills(s) 1, Pharmacy: [facility], 152, cm, 07/14/23 9:26:00 EDT, Height/Length Dosing, 76.9, kg, 07/14/23 9:26:00 EDT, Weight Dosing metoprolol, 25 mg = 1 tab(s), Oral, Daily, # 90 tab(s), Refills(s) 3, Pharmacy: [facility], 152, cm, 11/05/22 11:35:00 EST, Height/Length Dosing, 76, kg, 11/05/22 11:35:00 EST, Weight Dosing metoprolol, 50 mg = 1 tab(s), Oral, Daily, X 30 day(s), # 30 tab(s), Refills(s) 5, Pharmacy: [facility], 152, cm, 06/30/23 15:07:00 EDT, Height/Length Dosing, 77.5, kg, 06/30/23 15:07:00 EDT, Weight Dosing metoprolol, 50 mg = 1 tab(s), Oral, Daily, # 90 tab(s), Refills(s) 1, Pharmacy: [facility], 152, cm, 07/14/23 9:26:00 EDT, Height/Length Dosing, 76.9, kg, 07/14/23 9:26:00 EDT, Weight Dosing Portions of this record may have been created with voice recognition artificial intelligence software, specifically [employer], [employer] and or [employer]. Substitutions may have occurred due to the [...] Esophagogastroduodenoscop y (04/01/2021), (more content not included)... [facility] Comment on above: Result Comment: Elec tronically Signed By: Vicky LAST CNP\.elmo\Date and Time Signed: 07/15/23 12:36 EDT Physician Orderon 07-15-2023 Physician Order [id number]#1.00CD:[address] [facility] Consent for Treatmenton 06-20 Consent for Treatment [id number]#1.00CD:[address] [facility] Physician Orderon 07-14-2023 Physician Order [id number]#1.00CD:[address] [facility] Consent for Treatmenton 06-19 Consent for Treatment [id number]#1.00CD:[address] [facility] Heart and Vascular Office/Cl inic Noteon 06-30-2023 Heart and Vascular Office/Clinic Note History of Present Illness Patient is a very pleasant 67-year-old hypertensive female, nondiabetic, non-smoker, referred to our office after she went to the emergency room on 09/02/2021 with abdominal pain radiating into her back. She reportedly had a stress test, echocardiogram and Holter monitor at [facility] prior to her ER visit on 09/02/2021. Troponins were negative x1, and she was assigned a heart score of 4 and discharged home. In addition the patient apparently had a syncopal episode several weeks prior to her presentation, but cannot recall whether she had any chest pain prior to her syncope.. Her echocardiogram done at [place] on 08/20/2021 which showed left ventricular systolic [...] took place at an outside facility at [place] on 09/03/2021 which was read as normal. [...] In addition she has a brother in [place] who apparently has coronary disease the specific [...] List/Past Medical Hi (more content not included)... [facility] Comment on above: Result Comment: Elec tronically Signed By: MISAEL CANTRELL, Landon Mckinley\.br\Date and Time Signed: 06/30/23 15:29 EDT Physician Orderon 06-30-2023 Physician Order [id number]#1.00CD:[address] [facility] Outside Records Officeon Outside Records Office [id number]#1.00CD:[address] [facility] Consent for Treatmenton 05-20 Consent for Treatment [id number]#1.00CD:[address] [facility] Consultation Noteon 06-08-20 Consultation Note Patient: CHLOE [...] QID, # 120 tab(s), Refills(s) 3, Pharmacy: [facility], 152, cm, 04/03/23 9:20:00 EDT, Height/Length Dosing, 80, kg, 04/03/23 9:20:00 EDT, Weight Dosing Protonix 40 mg Tab-DR: 40 mg = 1 tab(s), Oral, BID, # 120 tab(s), Refills(s) 0, Pharmacy: [facility], 152.4, cm, 04/01/21 7:20:00 EDT, Height/Length Dosing, 85.5, kg, 04/01/21 7:20:00 EDT, Weight Dosing gabapentin 300 mg Cap: 300 mg = 1 cap(s), Oral, BID, start with once a day for a week. If doing ok can increase to BID, # 60 cap(s), Refills(s) 0, Pharmacy: [facility], 152, cm, 05/04/23 8:55:00 EDT, Height/Length Dosing, 72.6, kg, 05/04/23 8:55:00 EDT, Weig... losartan 50 mg Tab: 50 mg = 1 tab(s), Oral, Daily, X 30 day(s), # 30 tab(s), Refills(s) 0, Pharmacy: [facility], 152.4, cm, 06/05/23 8:54:00 EDT, Height/Length Dosing, 73, kg, 06/05/23 8:54:00 EDT, Weight Dosing metoprolol 25 mg ER Tab: 25 mg = 1 tab(s), Oral, Daily, # 90 tab(s), Refills(s) 3, Pharmacy: [facility], 152, cm, 11/05/22 11:35:00 EST, Height/Length Dosing, 76, kg, 11/05/22 11:35:00 EST, Weight Dosing Documented Medications Documented alendronate 70 mg Tab: TAKE 1 TABLET BY MOUTH 30 MINUTES BEFORE first food once a week, Prophylaxis Problem list: All Problems Chronic GERD / SNOMED CT 985688213 / Confirmed Unilateral primary osteoarthritis, right knee / SNOMED CT 9464490299 / Confirmed Gastritis / SNOMED CT 8711034 / Confirmed Vertigo / SNOMED CT 1494438984 / Confirmed BMI 34.0-34.9,adult / SNOMED CT 596392022 / Confirmed Regurgitation of stomach contents / SNOMED CT 308751421 / Confirmed Osteoporosis / SNOMED CT 011078677 / Confirmed HTN (hypertension) / SNOMED CT 7724938826 / Confirmed Dysphagia / SNOMED CT 92578904 / Confirmed Epigastric pain / SNOMED CT 622301307 / Confirmed Chest pain due to GERD / SNOMED CT 90186879 / Confirmed Screening for malignant neoplasm of colon / SNOMED CT 631382991 / Confirmed H/O: osteoarthritis / SNOMED CT 805034010 / Confirmed Hiatal hernia with gastroesophageal reflux / SNOMED CT 3552562085 / Confirmed Duodenogastric bile reflux / SNOMED CT 08189207 / Confirmed Sigmoid diverticulosis / SNOMED CT 7735277465 / Confirmed Resolved: GERD - Gastro-esophageal reflux disease / SNOMED CT 6748312224 Resolved: Appendicitis / SNOMED CT 589425156 Resolved: Cough / SNOMED CT 38202089 Resolved: Sinus drainage / SNOMED CT 589230013 Canceled: GERD with apnea / SNOMED CT 7168102585 Objective Vital Signs 06/08/2023 8:21 EDT Peripheral Pulse Rate 62 bpm Respiratory Rate 16 br/min Systolic Blood Pressure 156 mmHg HI Diastolic Blood Pressure 94 mmHg HI Mean Arterial Pressure, Cuff In Error mmHg (In Error) General: Alert and oriented, No acute distress. Overweight Eye: Normal conjunctiva. HENT: Normocephalic, Normal hea (more content not included)... Normal [facility] Comment on above: Result Comment: Elec tronically Signed By: Vicky Castillo PA-C\.br\Date and Time Signed: 06/08/23 09:02 EDT\.br\Electronically Co-Signed By: Valeri CANTRELL, Demar Leal\.br\Date and Time Co-Signed: 06/23/23 07:26 EDT Office/Clinic Note-Physician on 06-08-2023 Office/Clinic Note-Physician [id number]#1.00CD:12 7 Normal [facility] Patient Correspondenceon Patient Correspondence [id number]#1.00CD:12 7 Normal [facility] Patient Correspondence [id number]#1.00CD:[address] [facility] Patient History Officeon Patient History Office [id number]#1.00CD:12 7 Normal [facility] Auto Diffon 06-05-2023 Basophils/100 WBC (Bld) 0.8 % Normal 0.0-2.0 [facility] Comment on above: Order Comment: Order Added by Discern Expert. Performed By: #### 2 582925, 99970282, 3396959, 02723622, 8200321 ####[address] [address] Basophils/Leukocytes Auto (Bld) [Pure # fraction] 0.1 E9/L Normal 0.0-0.2 [facility] Comment on above: Order Comment: Order Added by Discern Expert. Performed By: #### 2 418497, 21474344, 4442223, 68250002, 2298736 ####[address] [address] Eosinophils/100 WBC (Bld) 3.4 % Normal 0.0-8.0 [facility] Comment on above: Order Comment: Order Added by Discern Expert. Performed By: #### 2 510058, 28896477, 6068667, 45070935, 1219358 ####[address] [address] Eosinophils/Leukocytes Auto (Bld) [Pure # fraction] 0.3 E9/L Normal 0.0-0.5 [facility] Comment on above: Order Comment: Order Added by Discern Expert. Performed By: #### 2 938004, 99090403, 2820305, 07130184, 4112350 ####[address] [place] [address] Lymphocytes/100 WBC (Bld) 20.2 % Normal 14.0-50.0 [facility] Comment on above: Order Comment: Order Added by Discern Expert. Performed By: #### 2 568713, 24663394, 0249391, 44157606, 0595502 ####[address] [address] Lymphocytes/Leukocytes Auto (Bld) [Pure # fraction] 1.5 E9/L Normal 1.0-4.0 [facility] Comment on above: Order Comment: Order Added by Discern Expert. Performed By: #### 2 928760, 19349314, 1641228, 27092341, 0054709 ####[facility] [address] [place] [address] Monocytes/100 WBC (Bld) 7.8 % Normal 4.0-14.0 [facility] Comment on above: Order Comment: Order Added by Discern Expert. Performed By: #### 2 898270, 56214860, 4981297, 17886172, 1242205 ####[facility] [address] [place] [address] Monocytes/Leukocytes Auto (Bld) [Pure # fraction] 0.6 E9/L Normal 0.2-1.0 [facility] Comment on above: Order Comment: Order Added by Discern Expert. Performed By: #### 2 267452, 77367885, 0631134, 25515068, 0812977 ####[facility] [address] [place] [address] Neutrophils/100 WBC (Bld) 67.8 % Normal 36.0-75.0 [facility] Comment on above: Order Comment: Order Added by Discern Expert. Performed By: #### 2 036854, 17354698, 0102291, 21186063, 3967574 ####[facility] [address] [place] [address] Neutrophils/Leukocytes Auto (Bld) [Pure # fraction] 5.1 E9/L Normal 2.0-7.5 [facility] Comment on above: Order Comment: Order Added by Linda Expert. Performed By: #### 2 504254, 15146158, 5790894, 92980673, 3170229 ####[facility] [address] [place] [address] BMPon 06-05-2023 Creatinine [Mass/Vol] 0.7 mg/dL Normal 0.5-1.3 [facility] Comment on above: Performed By: #### 2 184668, 81656866, 5276680, 04217428, 4560697 ####[facility] [address] [place] [address] Urea nitrogen [Mass/Vol] 19 mg/dL Normal 5-21 [facility] Comment on above: Performed By: #### 2 983516, 65893516, 7858787, 46541108, 0670287 ####[facility] [address] [place] [address] Urea nitrogen/Creatinine [Mass ratio] 27 No Units High 10-20 [facility] Comment on above: Performed By: #### 2 210335, 87732338, 1243685, 69374255, 3541044 ####[facility] [address] [place] [address] Anion gap [Moles/Vol] 12 mmol/L Normal 6-16 [facility] Comment on above: Performed By: #### 2 686894, 00553662, 0327723, 17738051, 8941214 ####[facility] [address] [place] [address] Calcium [Mass/Vol] 9.5 mg/dL Normal 8.9-11.1 [facility] Comment on above: Performed By: #### 2 589366, 61116285, 8462474, 26012391, 7660166 ####[facility] [address] [place] [address] Chloride [Moles/Vol] 107 mmol/L Normal 101-111 [facility] Comment on above: Performed By: #### 2 734409, 08833568, 9712735, 54605117, 8506495 ####[facility] [address] [place] [address] CO2 [Moles/Vol] 26 mmol/L Normal 21-31 [facility] Comment on above: Performed By: #### 2 393691, 04839217, 1459534, 20664661, 5832878 ####[facility] [address] [place] [address] Glucose [Mass/Vol] 100 mg/dL Normal 55-199 [facility] Comment on above: Result Comment: If t his glucose result represents a fasting glucose, interpretation should refer to the following reference range: 55-99 mg/dL Performed By: #### 2 482270, 84024437, 9930893, 54006434, 4686404 ####[facility] [address] [place] [address] Potassium [Moles/Vol] 3.6 mmol/L Normal 3.5-5.3 [facility] Comment on above: Performed By: #### 2 548609, 44053224, 3134914, 41457991, 0375516 ####[facility] [address] [place] [address] Sodium [Moles/Vol] 141 mmol/L Normal 135-145 [facility] Comment on above: Performed By: #### 2 085316, 41307247, 2222986, 54818577, 2754304 ####[facility] [address] [place] [address] CBC w/ Auto Diffon 3 Erythrocyte distribution width (RBC) [Ratio] 13.2 % Normal 10.9-14.2 [facility] Comment on above: Performed By: #### 2 506395, 55204165, 3545616, 50030587, 4575241 ####[facility] [address] [place] [address] Hematocrit (Bld) [Volume fraction] 39.7 % Normal 34.0-46.0 [facility] Comment on above: Performed By: #### 2 347187, 27290011, 3793615, 48859643, 3641596 ####[facility] [address] [place] [address] Hemoglobin (Bld) [Mass/Vol] 13.6 g/dL Normal 12.0-16.0 [facility] Comment on above: Performed By: #### 2 772133, 56095954, 1591185, 54181902, 1324031 ####[facility] [address] [place] [address] MCH (RBC) [Entitic mass] 29.9 pg Normal 27.0-34.0 [facility] Comment on above: Performed By: #### 2 463441, 19151387, 2647464, 54715012, 2757781 ####[address] [address] MCHC (RBC) [Mass/Vol] 34.2 g/dL Normal 31.4-36.0 [facility] Comment on above: Performed By: #### 2 555336, 43595795, 1856451, 45365291, 3495648 ####[address] [address] MCV (RBC) [Entitic vol] 87.5 fL Normal 80.0-100.0 F [facility] Comment on above: Performed By: #### 2 918161, 39635541, 2724702, 16878050, 5225567 ####[address] [address] Platelet mean volume (Bld) [Entitic vol] 8.2 fL Normal 6.4-10.8 [facility] Comment on above: Performed By: #### 2 005665, 48746609, 3916476, 91328557, 3842326 ####[address] [address] Platelets (Bld) [#/Vol] 239.0 E9/L Normal 150. 0-500. 0 [facility] Comment on above: Performed By: #### 2 274298, 55330699, 3816439, 44046399, 0138251 ####[address] [address] RBC (Bld) [#/Vol] 4.5 E12/L Normal 4.3-5.9 [facility] Comment on above: Performed By: #### 2 102824, 27401462, 4441151, 48906761, 3528070 ####[facility] [address] [place] [address] WBC corrected for nucl RBC Auto (Bld) [#/Vol] 7.5 E9/L Normal 4.0-11.0 [facility] Comment on above: Performed By: #### 2 210973, 97958436, 6079319, 12428717, 6856331 ####[facility] [address] [place] [address] CHEMISTRYOrdered By: SYSTEM SYSTEM on 06-05-2023 Anion gap [Moles/Vol] 12 mmol/L Normal 6 - 16 mEq/L [facility] Calcium [Mass/Vol] 9.5 mg/dL Normal 8.9 - 11. 1 mg/dL [facility] Chloride [Moles/Vol] 107 mmol/L Normal 101 - 1 11 mmol/L [facility] CO2 [Moles/Vol] 26 mmol/L Normal 21 - 31 mmol/L [facility] Creatinine [Mass/Vol] 0.7 mg/dL Normal 0.5 - 1.3 mg/dL [facility] GFR/1.73 sq M.predicted among non-blacks MDRD (S/P/Bld) [Vol rate/Area] 96 mL/min/1.73 m2 Normal >=59mL/min /1.73 m2 [facility] Chem S Glucose [Mass/Vol] 100 mg/dL Normal 55 - 199 mg/dL [facility] Potassium [Moles/Vol] 3.6 mmol/L Normal 3.5 - 5.3 mmol/L [facility] Sodium [Moles/Vol] 141 mmol/L Normal 135 - 145 mmol/L [facility] Troponin I.cardiac [Mass/Vol] 8.30 pg/mL Low 10.10 - 27.10 pg/mL [facility] Remisol Urea nitrogen [Mass/Vol] 19 mg/dL Normal 5 - 21 mg/dL [facility] Remisol Urea nitrogen/Creatinine [Mass ratio] 27 mg/mg High 10 - 20 [facility] Remisol CHEMISTRYOrdered By: Lab ROP User on 08-18-2023 Glucose [Mass/Vol] 109 mg/dL High 55 - 99 mg/dL [facility] POC Subsection Comment on above: Result Comment: Kacey wiley Meter POC Device SN [id number] Invalid Interpretation Code [facility] POC Subsection POC User ID [id number] Invalid Interpretation Code [facility] POC Subsection POC UsernamSHARITA Lockett Invalid Interpretation Code [facility] POC Subsection CT Head or Brain w/o [...] Gaming MD Transcribed by: SCOTTY Technologist: TIFFANY Normal [facility] Capillary Glucose POCon 05-19 Glucose [Mass/Vol] 109 mg/dL High 55-99 [facility] Comment on above: Result Comment: Kacey wiley Meter Performed By: #### 2 [id number] #### [facility] [address] [place] [address] Consent for Treatmenton 05-19 Consent for Treatment [id number]#1.00CD:12 7 Normal [facility] Discharge Instructionson Discharge Instructions [id number]#1.00CD:1 27 Normal [facility] ED Clinical Summaryon 2022 ED Clinical Summary (Inserted Image. Kandace ble to display) [address] [address] ED Clinical Summary Person Information Name: CHLOE AGARWAL[place] Age: 67 Years : 1955 Sex: Female Language: Chilean PCP: Yarelis Mcghee MD Marital Status: Visit Id: Visit Reason: Medical screening exam; SENT FROM [place] OFFICE HIGH BP AND DIZZINESS Speciality: Acuity: [...] 06/05/2023 10:47:06 06/05/2023 10:47:06 ADDRESS: [address] [place] [id number] PHYS DOC NOTES: MEDICAL INFORMATION: Prescriptions Given: Medications to Continue Taking That Have Changed [facility], [address] [place] [phone], [phone] START: losartan (losartan 50 mg Tab) 1 [...] Tablets By Mouth every day. Refills: 3. [facility] Prescription (Adult Blood Pressure Monitor with Large Bicep Cuff) Check BP Daily Dx I10. Refills: 0. pantoprazole (Protonix 40 mg Tab-DR) 1 Tablets By Mouth 2 times a day. Refills: 0. sucralfate (Carafate 1 gram Tab) 1 Tablets By Mouth 4 times a day. Refills: 3. 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 She [...] day(s), # 30 tab(s), Refills(s) 0, Pharmacy: [facility], 152.4, cm, 06/05/23 8:54:00 EDT, Height/Length [...] Daily Follow-up With When Contact Information Yarelis Hankinskarel In 3 days [address] [place] [address]- Business (1) Additional Instructions: Problem List/Past Medical History Ongoing BMI 34.0-34.9,adult Chest pain due to GERD Chronic GERD Duodenogastric bile reflux Dysphagia Epigastric pain Gastritis H/O: osteoarthritis Hiatal hernia with gastroesophageal reflux HTN (hypertension) Osteoporosis Regurgitation of stomach contents Screening for malignant ne (more content not included)... Normal [facility] Comment on above: Result Comment: Elec tronically Signed By: Prasad Avalos DO\.br\Date and Time Signed: 06/05/23 10:42 EDT ED Patient Education Noteon 06-05-2023 ED Patient Education Note Normal [facility] ED Patient Summaryon 023 ED Patient Summary (Inserted Image. Kandace ble to display) [address] [address] Patient Discharge Instructions Person Information Name: CHLOE AGARWAL Age: 67 Years Arrival Date: 06/05/2023 08:39:11 Discharge Diagnosis: Dizziness; Hypertension Primary Care Physician: Yarelis Mcghee MD Provider Information Primary Provider: Prasad Avalos DO Advanced Mold Blower:None The exam and treatment you received in the Emergency Department were for an urgent problem and are not intended as complete care. It is important that you follow up with a doctor, nurse practitioner, or physician?s assistant manager/embalmer for ongoing care. If your symptoms become worse or you do not improve as expected and you are unable to reach your usual health care provider, you should return to the Emergency Department. We are available 24 hours a day. CHLOE AGARWAL has been given the following list of patient education materials, prescriptions and follow-up instructions: Follow-up Instructions: With: Address: When: Yarelis Mcghee [address] [place] [address], [facility] [address] Business (1) In 3 days In the event that this physician does not participate in your insurance network, please consult with your insurance company to find a nearby participating provider. Patient Education Materials: A MESSAGE TO ALL PATIENTS REGARDING OPIOIDS PRESCRIPTION OPIOIDS: WHAT YOU NEED TO KNOW Prescription opioids can be used to help relieve deuaqquw-bt-wxhilk pain and are often prescribed following a [...] be struggling with addiction, tell your health child care centre director and ask for guidance or call [facility]?S National Helpline at [phone]. u Source: [place] Department of Health and Human Service (more content not included)... Normal [facility] HEMATOLOGYOrdered By: SYSTEM SYSTEM on 06-05-2023 [...] 67.8 % Normal 36.0 - 75.0 % [facility] HemeAutoSS Neutrophils/Leukocytes Auto (Bld) [Pure # fraction] 5.1 E9/L Normal 2.0 - 7.5 E9/L [facility] HemeAutoSS HEMATOLOGYOrdered By: Jesus Rosado on 06-05-2023 Erythrocyte distribution width (RBC) [Ratio] 13.2 % Normal 10.9 - 14.2 % [facility] HemeAutoSS Hematocrit (Bld) [Volume fraction] 39.7 % Normal 34.0 - 46.0 % [facility] HemeAutoSS Hemoglobin (Bld) [Mass/Vol] 13.6 g/dL Normal 12.0 - 16.0 gm/dL [facility] HemeAutoSS MCH (RBC) [Entitic mass] 29.9 pg Normal 27. 0 - 34.0 pg [facility] HemeAutoSS MCHC (RBC) [Mass/Vol] 34.2 g/dL Normal 31.4 - 36.0 gm/dL [facility] HemeAutoSS MCV (RBC) [Entitic vol] 87.5 fL Normal 80.0 - 100.0 fL [facility] HemeAutoSS Platelet mean volume (Bld) [Entitic vol] 8.2 fL Normal 6.4 - 10.8 fL [facility] HemeAutoSS Platelets (Bld) [#/Vol] 239.0 E9/L Normal 150. 0 - 500.0 E9/L [facility] HemeAutoSS RBC (Bld) [#/Vol] 4.5 E12/L Normal 4.3 - 5.9 E12/L [facility] HemeAutoSS WBC corrected for nucl RBC Auto (Bld) [#/Vol] 7.5 E9/L Normal 4.0 - 11.0 E9/L [facility] HemeAuto[facility] Monitor Recordon 06-05-2023 Monitor Record [id number]#1.00CD:1 27 Normal [facility] Troponin 0 Hr.on 06-05-2023 Troponin I.cardiac [Mass/Vol] 8.30 pg/mL Low 10.10-27.1 0 [facility] Comment on above: Result Comment: The 95% CI (Confidence Interval) PPV (Positive Predictive Value) for myocardial infarction in females is 38 pg/mL, in males 51 pg/mL. The results should be used in conjunction with clinical conditions of myocardial infarction. (Access High Sensitivity Troponin I Instructions For Use, Demetra Meeker, May 2018) Performed By: #### 2 [id number] ####[facility] [address] [place] [address] XR Chest Single Viewon 06-05 XR Chest [...] mGy = na DAP = na Normal [facility] eGFRon 06-05-2023 GFR/1.73 sq M.predicted among non-blacks MDRD (S/P/Bld) [Vol rate/Area] 96 mL/min/1.73 m2 Normal >=59 [facility] Comment on above: Order Comment: Order added by Discern Expert. Result Comment: Cognos neisha kidney disease could be indicated at eGFR's of less than 60 mL/min/1.73m2. Kidney failure is indicated at less than 15 mL/min/1.73m2. Performed By: #### 2 [id number], [id number] ####[facility] [address] [place] [address] [facility] (Inserted Image. Kandace ble to display) Keith Subramanian DPM [address] [place] [address] Re: CHLOE AGARWAL Date of : 1955 Re: Chloe Agarwal : 1955 Patient represents low risk of cardiovascular events involving her non-cardiac surgery. Recent left heart catheterization revealed normal coronary arteries. Vicky LARA [facility] Outside Records Officeon Outside Records Office [id number]#1.00CD:1 27 Normal [facility] Heart and Vascular Office/Cl inic Noteon [...] intact- no rash or concerning lesions Procedure [facility] 09/17/21 CONCLUSIONS: 1. Normal coronary arteries. 2. [...] (COVID-19) mRNA (more content not included)... Normal [facility] Comment on above: Result Comment: Elec tronically Signed By: Vicky LAST CNP\.br\Date and Time Signed: 05/14/23 09:30 EDT Consent for Treatmenton 04-18 Consent for Treatment [id number]#1.00CD:127 Normal [facility] Consultation Noteon 05-04-20 Consultation Note Patient: CHLOE [...] QID, # 120 tab(s), Refills(s) 3, Pharmacy: [facility], 152, cm, 04/03/23 9:20:00 EDT, Height/Length Dosing, 80, kg, 04/03/23 9:20:00 EDT, Weight Dosing Cozaar 25 mg Tab: 25 mg = 1 tab(s), Oral, Daily, stopping Lisinopril Starting Cozaar, X 90 day(s), # 90 tab(s), Refills(s) 3, Pharmacy: [facility], 152, cm, 11/05/22 11:35:00 EST, Height/Length Dosing, 76, kg, 11/05/22 11:35:00 EST, Weight Dosing Protonix 40 mg Tab-DR: 40 mg = 1 tab(s), Oral, BID, # 120 tab(s), Refills(s) 0, Pharmacy: [facility], 152.4, cm, 04/01/21 7:20:00 EDT, Height/Length Dosing, 85.5, kg, 04/01/21 7:20:00 EDT, Weight Dosing gabapentin 300 mg Cap: 300 mg = 1 cap(s), Oral, BID, start with once a day for a week. If doing ok can increase to BID, # 60 cap(s), Refills(s) 0, Pharmacy: [facility], 152, cm, 05/04/23 8:55:00 EDT, Height/Length Dosing, 72.6, kg, 05/04/23 8:55:00 EDT, Ailin. metoprolol 25 mg ER Tab: 25 mg = 1 tab(s), Oral, Daily, # 90 tab(s), Refills(s) 3, Pharmacy: [facility], 152, cm, 11/05/22 11:35:00 EST, Height/Length Dosing, 76, kg, 11/05/22 11:35:00 EST, Weight Dosing Documented Medications Documented alendronate 70 mg Tab: TAKE 1 TABLET BY MOUTH 30 MINUTES BEFORE first food once a week, Prophylaxis Problem list: All Problems Chronic GERD / SNOMED CT 678821387 / Confirmed Unilateral primary osteoarthritis, right knee / SNOMED CT 2820721229 / Confirmed Gastritis / SNOMED CT 7354760 / Confirmed Vertigo / SNOMED CT 9461815920 / Confirmed BMI 34.0-34.9,adult / SNOMED CT 629009490 / Confirmed Regurgitation of stomach contents / SNOMED CT 792086075 / Confirmed Osteoporosis / SNOMED CT 812835923 / Confirmed HTN (hypertension) / SNOMED CT 0928252515 / Confirmed Dysphagia / SNOMED CT 89573778 / Confirmed Epigastric pain / SNOMED CT 682756266 / Confirmed Chest pain due to GERD / SNOMED CT 54129744 / Confirmed Screening for malignant neoplasm of colon / SNOMED CT 984832859 / Confirmed H/O: osteoarthritis / SNOMED CT 379162489 / Confirmed Hiatal hernia with gastroesophageal reflux / SNOMED CT 2237906905 / Confirmed Duodenogastric bile reflux / SNOMED CT 65545721 / Confirmed Sigmoid diverticulosis / SNOMED CT 3082064937 / Confirmed Resolved: GERD - Gastro-esophageal reflux disease / SNOMED CT 1637544151 Resolved: Appendicitis / SNOMED CT 680104675 Resolved: Cough / SNOMED CT 93064860 Resolved: Sinus drainage / SNOMED CT 468417186 Canceled: GERD with apnea / SNOMED CT 4364358424 Objective VS/Measurements General: Alert and oriented, No acute distress. Overweight Eye: Normal conjunctiva. HENT: Normocephalic, Normal hearing. Cardiovascular: No edema. Musculoskeletal Normal range of motion. Normal strength. 5/5 lower extremity strength Integumentary: Warm, Dry, [place]. Injection site well-healed Neurologic: Alert, Oriented. Psychiatric: Cooperative, Appropriate mood & affect. Impression and Plan Patient is a 67-year-old female with a past medical history as needed significant for lumbar degenerative disease, lumbar neuritis, and trochanteric bu (more content not included)... [facility] Comment on above: Result Comment: Elec tronically Signed By: Vicky Castillo PA-C\.br\Date and Time Signed: 05/04/23 09:08 EDT\.br\Electronically Co-Signed By: Valeri CANTRELL, Demar Leal\.br\Date and Time Co-Signed: 05/12/23 10:41 EDT Office/Clinic Note-Physician on 05-04-2023 Office/Clinic Note-Physician [id number]#1.00CD:[address] [facility] Patient Correspondenceon Patient Correspondence [id number]#1.00CD:[address] [facility] Patient Correspondence [id number]#1.00CD:[address] [facility] Patient History Officeon Patient History Office [id number]#1.00CD:[address] [facility] Consent for Treatmenton 04-18 Consent for Treatment [id number]#1.00CD:[address] [facility] Progress Note-Nurseon 2022 Progress Note-Nurse [id number]#1.00CD:[address] [facility] Consent for Procedure/Surger yon 04-20-2023 Consent for Procedure/Surgery [id number]#1.00CD:[address] [facility] Consent for Treatmenton Consent for Treatment [id number]#1.00CD:12 7 Normal [facility] Office/Clinic Note-Physician on 04-20-2023 Office/Clinic Note-Physician [id number]#1.00CD:1 27 Normal [facility] Operative Reporton Operative Report Patient: CHLOE AGARWAL [...] Arterial Pressure, Cuff 112 mmHg . Normal [facility] Comment on above: Result Comment: Elec tronically Signed By: Demar Trammell MD\.br\Date and Time Signed: 04/20/23 14:27 EDT Patient Correspondenceon Patient Correspondence [id number]#1.00CD:1 27 Normal [facility] Patient History Officeon Patient History Office [id number]#1.00CD:1 27 Normal [facility] Physician Orderon 04-20-2023 Physician Order [id number]#1.00CD:1 27 Normal [facility] Ambulatory Visit Summaryon 0 04-15-2023 Ambulatory Visit [...] Follow-Up Appointments Thursday 2:15 PM EDT With: Valeri CANTRELL, Demar Leal [...] - Gastro-esophageal reflux disease Sinus drainage Normal [facility] General Surgery Office/Clini c Noteon 04-15-2023 [...] (COVID-19) mRNA BNT-162b2 vax 07/02/2021 Recorded Normal [facility] Comment on above: Result Comment: Elec tronically Signed By: JOSE RAMON CANTRELL, Michael Ward\Date and Time Signed: 04/15/23 14:05 EDT IntraOperative Documentson 0 04-13-2023 IntraOperative Documents [id number]#1.00CD:1 27 Normal [facility] Colonoscopy Procedure Report on 04-09-2023 Colonoscopy [...] and Plan Diagnosis: Diverticulosis of sigmoid colon (QWV20-IH K57.30, Discharge, Medical). Course: Progressing as expected. Recommendations: Repeat colonoscopy:: In 10 years. Follow-up:: 1-2 weeks. Diet:: Regular diet. Medication resumption:: Continue current medications. Return to activities:: After 24 hours. Education and Follow-up: Counseled: Family. there was noted to be mild inflammation of the sigmoid colon, and a biopsy was obtained. with cold biopsy forceps, with good hemostasis. Normal [facility] Comment on above: Other Comment: Constanza diamond Attachment - attachment storage system not supported [id number] Can be viewed in source systemMissing Attachment - attachment storage system not supported [id number] Can be viewed in source systemMissing Attachment - attachment storage system not supported [id number] Can be viewed in source systemMissing Attachment - attachment storage system not supported [id number] Can be viewed in source system Coding Queryon 04-08-2023 Coding Query - From: Aminata Cruz To: JOSE RAMON CANTRELL, Michael Billingsley; Sent: 04/08/2023 10:30:53 EDT ! Subject: Coding Query Dr Albright, There is a pathology report from the colonoscopy, can you document that portion of the procedure for the OP note. Thank you, Jennifer HIM Coding [facility] Consent for Treatmenton 03-20 Consent for Treatment [id number]#1.00CD:[address] [facility] Consultation Noteon 04-07-20 23 Consultation [...] QID, # 120 tab(s), Refills(s) 3, Pharmacy: [facility], 152, cm, 04/03/23 9:20:00 EDT, Height/Length Dosing, 80, kg, 04/03/23 9:20:00 EDT, Weight Dosing Cozaar 25 mg Tab: 25 mg = 1 tab(s), Oral, Daily, stopping Lisinopril Starting Cozaar, X 90 day(s), # 90 tab(s), Refills(s) 3, Pharmacy: [facility], 152, cm, 11/05/22 11:35:00 EST, Height/Length Dosing, 76, kg, 11/05/22 11:35:00 EST, Weight Dosing Protonix 40 mg Tab-DR: 40 mg = 1 tab(s), Oral, BID, # 120 tab(s), Refills(s) 0, Pharmacy: [facility], 152.4, cm, 04/01/21 7:20:00 EDT, Height/Length Dosing, 85.5, kg, 04/01/21 7:20:00 EDT, Weight Dosing metoprolol 25 mg ER Tab: 25 mg = 1 tab(s), Oral, Daily, # 90 tab(s), Refills(s) 3, Pharmacy: [facility], 152, cm, 11/05/22 11:35:00 EST, Height/Length Dosing, 76, kg, 11/05/22 11:35:00 EST, Weight Dosing Documented Medications Documented alendronate 70 mg Tab: TAKE 1 TABLET BY MOUTH 30 MINUTES BEFORE first food once a week, Prophylaxis ropinirole 0.5 mg Tab: take 1 tablet by mouth at bedtime, Other (see comment) Problem list: All Problems BMI 34.0-34.9,adult / SNOMED CT 673978462 / Confirmed Chest pain due to GERD / SNOMED CT 06709050 / Confirmed Chronic GERD / SNOMED CT 284862763 / Confirmed Dysphagia / SNOMED CT 72780197 / Confirmed Epigastric pain / SNOMED CT 761814916 / Confirmed Gastritis / SNOMED CT 0350717 / Confirmed H/O: osteoarthritis / SNOMED CT 502383916 / Confirmed HTN (hypertension) / SNOMED CT 9153753993 / Confirmed Osteoporosis / SNOMED CT 966163738 / Confirmed Regurgitation of stomach contents / SNOMED CT 058315918 / Confirmed Screening for malignant neoplasm of colon / SNOMED CT 349336076 / Confirmed Unilateral primary osteoarthritis, right knee / SNOMED CT 7936555283 / Confirmed Vertigo / SNOMED CT 5681040411 / Confirmed Objective Vital Signs 04/07/2023 10:56 [...] Patient agrees with plan of care. Normal [facility] Comment on above: Result Comment: Elec tronically Signed By: Valeri CANTRELL, Demar Leal\.br\Date and Time Signed: 04/07/23 12:35 EDT Main OR Intraoperative Recor don 04-07-2023 Main OR Intraoperative Record IntraOp Document Type FT Summary Primary Physician: Michael ALBRIGHT MD Finalized Date/Time: 04/07/23 08:07:26 Pt. Name: CHLOE AGARWAL/Sex: 1955 Female Med Rec #: [id number] Physician: Michael ALBRIGHT MD Financial #: [id number] Pt. Type: O Room/Bed: Endo 12/17 Admit/Disch: 04/03/23 09:06:01 - 04/03/23 10:54:28 Institution: Case Times FT Entry 1 Patient Times In Room 04/03/23 09:47:00 Out Room 04/03/23 10:12:00 Procedure Times Start 04/03/23 09:50:00 Stop 04/03/23 10:11:00 Anesthesia Times Start 04/03/23 09:47:00 Stop 04/03/23 10:12:00 Time at [facility] 04/03/23 10:04:00 Last Modified By: Mary DUMONT, Iris 04/03/23 10:11:48 General Comments: 951-EGD completed. /AW RN 55-Colonoscopy started/AW RN 04/07/23 Chart opened to review and send charges LRoth CSFA Case Attendance FT Entry 1 Entry 2 Entry 3 Case Attendee Manfred GOMEZ, Nico Hernandez RN, Karissa Little Role Performed Anesthesiologist Heat Treat Operator - Primary Scrub - Primary Electronic Publishing Specialist Time In 04/03/23 09:47:00 04/03/23 09:47:00 04/03/23 09:47:00 Time Out 04/03/23 10:12:00 04/03/23 10:12:00 04/03/23 10:12:00 Procedure EGD AND COLONOSCOPY(.) EGD AND COLONOSCOPY(.) EGD AND COLONOSCOPY(.) Comments supervising Last Modified By: Mary RN, Iris Hernandez RN, Iris Hernandez RN, Iris 04/03/23 10:11:51 04/03/23 10:11:51 04/03/23 10:19:12 Entry 4 Entry 5 Case Attendee Noemi Sales MD, Michael Billingsley Role Performed Staff - Other Surgeon - Primary Time In 04/03/23 09:47:00 04/03/23 09:47:00 Time Out 04/03/23 10:12:00 04/03/23 10:12:00 Procedure EGD AND COLONOSCOPY(.) EGD AND COLONOSCOPY(.) Comments help in room Last Modified By: Mary RN, Iris Hernandez RN, Iris 04/03/23 10:19:12 04/03/23 10:11:51 Perioperative Protocols FT [...] and tissue Entry 1 Skin Integrity Intact, [place], Warm, and Skin Abnormality No Dry Outcomes Met? Yes Last Modified By: Mary DUMONT, Iris 04/03/23 09:56:59 Post-Care Text: The patient is free from signs and symptoms of injury caused by extraneous objects Patient Positioning FT Pre-Care Text: Identifies physical alterations that require additional precautions for procedure-specific positioning, verifies presence of prosthetics or corrective devices, positions the patient, evaluates the patient for (more content not included)... Normal [facility] Office/Clinic Note-Physician on 04-07-2023 Office/Clinic Note-Physician [id number]#1.00CD:[address] [facility] Patient Correspondenceon Patient Correspondence [id number]#1.00CD:[address] [facility] Patient History Officeon Patient History Office [id number]#1.00CD:[address] [facility] Consenton 04-06-2023 Consent [id number]#1.00CD:[address] [facility] Discharge Instructionson Discharge Instructions [id number]#1.00CD:[address] [facility] Postoperative Documentson Postoperative Documents [id number]#1.00CD:[address] [facility] Reminderson 04-06-2023 Reminders - From: Teresa Golden LPN To: N - Clinical; Sent: 04/06/2023 09:24:18 EDT Show up: 03/03/2033 07:00:00 EDT Subject: colonoscopy recall Due Date/Time: 04/03/2033 07:00:00 EDT Reminder/Recall Patient due for screening colonoscopy 04/03/2033. Normal [facility] Consent for Treatmenton 03-19 Consent for Treatment [id number]#1.00CD:12 7 Normal [facility] Discharge Instructionson Discharge Instructions CHLOE AGARWAL :1955 [...] operative site, Persistent vomiting Pharmacy Information Other: [facility] Discharge Instructions Discharge Instructions Previously Scheduled Follow-Up Appointments Thursday 11:00 AM EDT With: Valeri CANTRELL, Demar Leal Where: [facility] Thursday 9:00 AM EDT With: Vicky LAST CNP Where: [facility] New Follow Up Appointments after Discharge Follow Up with Michael ALBRIGHT When: Within 2 weeks Where: [address] [place] [address], [facility] [address] [address]- Business (1) Medications What How Much When Why Instructions Next Dose New sucralfate (Carafate 1 gram Tab) 1 Tablets By Mouth 4 times a day Hiatal hernia with gastroesophageal reflux disease without esophagitis Refills: 3 Pickup at [facility] Unchanged alendronate (alendronate 70 mg Tab) [...] tablet by mouth at bedtime Pharmacy Information [facility]: [address] [place] [id number] [phone] Allergies lisinopril (Coughing) sulfa drugs (unknown) Problems [...] complications such (more content not included)... Normal [facility] Comment on above: Result Comment: Elec tronically Signed By: Luke DUMONT, Fartun Leal\.br\Date and Time Signed: 04/03/23 10:26 EDT EGDon 04-03-2023 Esophagogastroduodenosco py Patient: CHLOE AGARWAL Age: [...] hernia with gastroesophageal reflux disease without esophagitis (VTE36-ZI K44.9, Working, Medical), Hiatal hernia with gastroesophageal reflux disease without esophagitis (LCN61-JJ K44.9, Discharge, Medical), Gastro-esophageal reflux disease without esophagitis (DFT99-GX K21.9, Discharge, Medical), Encounter for screening for malignant neoplasm of rectum (DAE37-CH Z12.12, Discharge, Medical), Encounter for colorectal cancer screening (MJY87-CR Z12.11, Discharge, Medical), Diverticulosis of sigmoid colon (GKR89-NB K57.30, Discharge, Medical). Course: Progressing as expected. Education and Follow-up: Counseled: Family. Normal [facility] Comment on above: Other Comment: Constanza diamond Attachment - attachment storage system not supported [id number] Can be viewed in source systemMissing Attachment - attachment storage system not supported [id number] Can be viewed in source systemMisslawrence [facility]. [facility] Attachment - attachment storage system not supported [id number] Can be viewed in source systemMissing Attachment - attachment storage system not supported [id number] Can be viewed in source system Inpatient Patient Summaryon 04-03-2023 Inpatient Patient Summary [place] [id number] [facility] Clinical Discharge Instructions PERSON INFORMATION Name: CHLOE [...] Follow up: With: Address: When: Michael ALBRIGHT [address], [address], [facility] [address] [place] [address] Business (1) Within 2 weeks Type Location Start Finish State Pain Management - Follow Up (FT) [facility] [place] 04/07/2023 11:00 AM 04/07/2023 11:15 AM Confirmed Cardiology Follow Up (FT) [facility] 04/28/2023 9:00 AM 04/28/2023 9:15 AM Confirmed MEDICATION LIST New Medications [facility], [address] [place], [place] [id number], [phone] sucralfate (Carafate 1 gram Tab) 1 Tablets [...] mouth at bedtime., Restless legs Comment: Normal [facility] Main OR PACU I Recordon 03-19 Main OR PACU I Record PACU Phase I Docum ent Type FT Summary Primary Physician: Michael ALBRIGHT MD Finalized Date/Time: 04/03/23 10:55:16 Pt. Name: CHLOE AGARWAL/Sex: 1955 Female Med Rec #: [id number] Physician: Michael ALBRIGHT MD Financial #: [id number] Pt. Type: O Room/Bed: Endo 12/17 Admit/Disch: [...] I Outcomes Met? Yes Last Modified By: Fartun Butler RN 04/03/23 10:55:01 Post-Care Text: The patient demonstrates [...] Signed By: Fartun Butler RN 04/03/23 10:[address] [facility] Monitor Recordon 04-03-2023 Monitor Record [id number]#1.00CD:1 27 Normal [facility] Monitor Record [id number]#1.00CD:1 27 Normal [facility] Outpatient Surgery Discharge Instructionon 04-03-2023 Outpatient Surgery Discharge Instruction [place] [id number] Patient Discharge Instructions PERSON INFORMATION Name: CHLOE [...] Date Follow up: With: Address: When: Michael ROLAND[address]riyank [address], [facility] [address] [place] [address] Business (1) Within 2 weeks Type Location Start Finish State Pain Management - Follow Up (FT) [facility] [place] 04/07/2023 11:00 AM 04/07/2023 11:15 AM Confirmed Cardiology Follow Up (FT) [facility] 04/28/2023 9:00 AM 04/28/2023 9:15 AM Confirmed Pharmacy Information: Other: [facility] You may receive a survey from [employer] asking you to rate your care experience. Your feedback is important and will help us understand what we do well and how we can improve the quality of care we provide to you, your loved ones and our community. It?s an honor to serve you. Thank you for choosing [facility] HERE ARE THE MEDICATION CHANGES THAT OCCURRED DURING YOUR HOSPITAL STAY New Medications [facility], [address] [place], [place] [phone], [phone] sucralfate (Carafate 1 gram Tab) 1 Tablets [...] legs PATIENT EDUCATION INFORMATION Instructions: Medication Leaflets: Christina [facility] Patient Education - Texton 0 04-03-2023 Patient [...] unsweetened, w/added ascorbic acid 1 cup 0.5 Mariposa 1 cup 0.7 Vegetables Cooked Green beans 1 cup 4.0 Carrots 1/2 cup sliced 2.3 Peas 1 cup 8.8 Potato (baked, with skin) 1 medium potato 3.8 Raw [place] (with peel) 1 cucumber 1.5 Lettuce 1 [...] 8.7 Peanuts 1/2 cup 7.9 Chart from [facility] 2013. SEEK IMMEDIATE MEDICAL CARE IF: You [...] of Agriculture (USDA) National Nutrient Database at: http://www.nal.usda.gov/f neisha/foodcomp/search/ Created using data from the USDA National Nutrient Database for Standard Reference. Available at http://www.nal.usda.gov/f neisha/foodcomp/search/. Information adapted from: Jesse? Patient Information ?2009 [employer]. legalPAD 2012 http://www.MediaLAB/c ontents/diverticular-dise brp-fbcbnf-xrq-basics Colonoscopy Care After Surgery Please read the [...] and progress (more content not included)... Normal [facility] Progress Note-Physicianon Progress Note-Physician Patient: CHLOE CHESTER Age: 67 years Sex: Female : 1955 Associated Diagnoses: None Author: Lb Wu Jr., DO Postoperative Information Postoperative disposition: Postoperative disposition: Home. Optimetrix number: Optimetrix number [id number]. Anesthetic utilized: General. Physical Examination Vital Signs [...] Surgery Unit, and To home ). Normal [facility] Comment on above: Result Comment: Elec [...] day(s), # 90 tab(s), Refills(s) 3, Pharmacy: [facility], 152, cm, 11/05/22 11:35:00 EST, Height/Length Dosing, 76, kg, 11/05/22 11:35:00 EST, Weight Dosing Protonix 40 mg Tab-DR: 40 mg = 1 tab(s), Oral, BID, # 120 tab(s), Refills(s) 0, Pharmacy: [facility], 152.4, cm, 04/01/21 7:20:00 EDT, Height/Length Dosing, 85.5, kg, 04/01/21 7:20:00 EDT, Weight Dosing metoprolol 25 mg ER Tab: 25 mg = 1 tab(s), Oral, Daily, # 90 tab(s), Refills(s) 3, Pharmacy: [facility], 152, cm, 11/05/22 11:35:00 EST, Height/Length [...] All Problems BMI 34.0-34.9,adult / SNOMED CT 552653943 / Confirmed Chest pain due to GERD / SNOMED CT 78645387 / Confirmed Chronic GERD / SNOMED CT 392729966 / Confirmed Dysphagia / SNOMED CT 73787568 / Confirmed Epigastric pain / SNOMED CT 720710027 / Confirmed Gastritis / SNOMED CT 6329900 / Confirmed H/O: osteoarthritis / SNOMED CT 439128049 / Confirmed HTN (hypertension) / SNOMED CT 6443620586 / Confirmed Osteoporosis / SNOMED CT 876025193 / Confirmed Regurgitation of stomach contents / SNOMED CT 645605463 / Confirmed Screening for malignant neoplasm of colon / SNOMED CT 480520354 / Confirmed Unilateral primary osteoarthritis, right knee / SNOMED CT 0910085528 / Confirmed Vertigo / SNOMED CT 9321324029 / Confirmed Resolved: Appendicitis / SNOMED CT 928430866 Resolved: Cough / SNOMED CT 25408951 Resolved: GERD - Gastro-esophageal reflux disease / SNOMED CT 1885045932 Resolved: Sinus drainage / SNOMED CT 382540038 Canceled: GERD with apnea / SNOMED CT 9440817351 Histories Past Medical History: Resolved GERD - Gastro-esophageal reflux disease (1754750384): Resolved. Appendicitis (510509424): Resolved. Cough (15650981): Resolved. Sinus drainage (997417508): Resolved. Procedure history: Cardiac catheterization procedure (98878550) on 09/17/2021 at 65 Years. EGD - Esophagogastroduodenoscop y (3734719131) on 04/01/2021 at 65 Years. Appendectomy (673099533) on 10/19/2017 at 62 Years. Ureterorenoscopy with fragmentation and removal of kidney stone (0807115988). EGD - Esophagogastroduodenoscop y (7917639376). Comments: 03/08/2021 10:09 EDT - Helio Navarrete MA during early 40s Tonsillectomy with adenoidectomy (45239991). Arthroplasty of knee (70854598). Arthroplasty of knee (68063589). Social History Social & Psychosocial Habits Alcohol 09/18/2019 Use: Current Comment: lexis - 09/18/2019 13:18 - Rosina Bales RN 09/07/2020 Risk Assessment: Denies Alcohol Use Comment: Denies. - 09/01/2021 23:12 - Nicky Ospina RN Substance Abuse 09/07/2020 Risk Assessment: Denies Substance Abuse Comment: Yairies. - 09/01/2021 23:12 - Nicky Ospina RN Tobacco 09/18/2019 Risk Assessment: Denies Tobacco Use 02/20/2023 Tobacco Use: Never (less than 100 in l Smokeless tobacco use: Never Comment: Denies. - 09/01/2021 23:12 - Nicky Ospina RN (more content not included)... [facility] Comment on above: Result Comment: Elec tronically Signed By: Lb Wu Jr., DO.elmo\Date and Time Signed: 04/03/23 09:37 EDT Consent for Procedure/Surger yon 03-17-2023 Consent for Procedure/Surgery [id number]#1.00CD:[address] [facility] Consent for Treatmenton 02-18 Consent for Treatment [id number]#1.00CD:[address] [facility] Discharge Instructionson Discharge Instructions [id number]#1.00CD:[address] [facility] IntraOperative Documentson 0 03-17-2023 IntraOperative Documents [id number]#1.00CD:[address] [facility] Main OR Intraoperative Recor don 03-17-2023 Main OR Intraoperative Record IntraOp Document Type FTPM Summary Primary Physician: Demar Trammell MD Finalized Date/Time: 03/17/23 11:36:22 Pt. Name: CHLOE AGARWAL/Sex: 1955 Female Med Rec #: [id number] Physician: Demar Trammell MD Financial #: [id number] Pt. Type: P Room/Bed: / Admit/Disch: 03/17/23 [...] Velma Garcia Role Performed Surgeon - Primary Heat Treat Operator - Primary Scrub - Primary Time In 03/17/23 11:30:00 03/17/23 11:30:00 03/17/23 11:30:00 Time Out 03/17/23 11:36:00 03/17/23 11:36:00 03/17/23 11:36:00 Procedure TRANSFORAMINAL EPIDURAL TRANSFORAMINAL EPIDURAL TRANSFORAMINAL EPIDURAL STEROID STEROID STEROID INJECTIO(Bilateral) INJECTIO(Bilateral) INJECTIO(Bilateral) Comments Last Modified By: Georgina DUMONT, Antoinette Erickson RN, Antoinette Walker RN 03/17/23 11:35:07 03/17/23 11:35:07 03/17/23 11:35:07 Entry 4 Case Attendee Antionette Carmona Role Performed [employer] Time In 03/17/23 11:30:00 Time Out 03/17/23 [...] Antibiotic No Time Out Antoinette Erickson RN, Chung DUMNOT, Valeri Moura MD, Kristine Hylton Amy Time [...] L5/S1 TFESI Primary Procedure Yes Primary Surgeon Valeri CANTRELL, Demar Leal Start 03/17/23 11:33:00 Stop 03/17/23 11:35:00 Anesthesia [...] and tissue Entry 1 Skin Integrity Intact, [place], Warm, and Skin Abnormality No Dry Outcomes [...] Safety Strap, (more content not included)... Normal [facility] Main OR Preoperative Recordo n 03-17-2023 Main OR Preoperative Record Holding Area Document Type FTPM Summary Primary Physician: Demar Trammell MD Finalized Date/Time: 03/17/23 11:09:08 Pt. Name: CHLOE AGARWAL/Sex: 1955 Female Med Rec #: [id number] Physician: Demar Trammell MD Financial #: [id number] Pt. Type: P Room/Bed: / Admit/Disch: 03/17/23 [...] Signed By: Virgie Horne RN 03/17/23 11:[address] [facility] Office/Clinic Note-Nurseon 0 03-17-2023 Office/Clinic Note-Nurse Pt c/o feeling wobbly when standing . Pt assisted back to the cart. Pt assisted back to cart and pt given snack. Pt reports feeling better after eating chips. Pt able to stand @ cartside. Pt escorted out in w/c. [facility] Comment on above: Result Comment: Elec tronically Signed By: Raul DUMONT, Tierra\.br\Date and Time Signed: 03/17/23 11:51 EDT Operative Reporton Operative Report Patient: CHLOE AGARWAL [...] Respiratory Rate 12 br/min LOW . Normal [facility] Comment on above: Result Comment: Elec tronically Signed By: Valeri CANTRELL, Demar Leal\.br\Date and Time Signed: 03/17/23 11:34 EDT RAD - CT Reporton 03-12-2023 RAD - CT Report [id number]#1.00CD:12 7 Normal [facility] Lab Reportson 03-04-2023 Lab Reports [id number]#1.00CD:12 7 Normal [facility] CREATININEon 03-03-2023 Creatinine [Mass/Vol] 0.89 mg/dL Normal 0.55-1.02 [facility] Comment on above: Performed By: #### C LING #### [facility] [address] [place] [address] Dr. Lorraine Scott EGFR-AF [place] CITIZEN >60 Normal >=60 [facility] Comment on above: Performed By: #### C LING #### [facility] [address] [address] [address] Lorraine Scott EGFR-NON AF [place] CITIZEN >60 Normal >=60 [facility] Comment on above: Performed By: #### C LING #### [facility] [address] [place] [address] ABD/PELV W CONon 03-03-20 CT ABD/PELV [...] by: RYAN VAZQUEZ Date: 2023-03-03 10:08 Normal [facility] Patient Correspondenceon Patient Correspondence [id number]#1.00CD:1 27 Normal [facility] Facesheeton 02-24-2023 Facesheet [id number]#1.00CD:12 7 Normal [facility] Consent for Procedure/Surger yon 02-23-2023 Consent for Procedure/Surgery [id number]#1.00CD:12 7 Normal [facility] Consent for Surgery/Procedur e Officeon 02-23-2023 Consent for Surgery/Procedure Office [id number]#1.00CD: 127 Normal [facility] Consultation Noteon 02-24-20 Consultation Note Patient: CHLOE AGARWAL Age: 67 years Sex: Female : 1955 Associated Diagnoses: None Author: Valeri CANTRELL, Demar Leal Basic Information Accompanied by: Spouse. Source of [...] All Problems BMI 34.0-34.9,adult / SNOMED CT 783287351 / Confirmed Chest pain due to GERD / SNOMED CT 05970173 / Confirmed Chronic GERD / SNOMED CT 417900370 / Confirmed Dysphagia / SNOMED CT 55984793 / Confirmed Epigastric pain / SNOMED CT 600042404 / Confirmed Gastritis / SNOMED CT 2436525 / Confirmed H/O: osteoarthritis / SNOMED CT 676588508 / Confirmed HTN (hypertension) / SNOMED CT 5784727735 / Confirmed Osteoporosis / SNOMED CT 525526577 / Confirmed Regurgitation of stomach contents / SNOMED CT 508377398 / Confirmed Screening for malignant neoplasm of colon / SNOMED CT 100589505 / Confirmed Unilateral primary osteoarthritis, right knee / SNOMED CT 0375458705 / Confirmed Vertigo / SNOMED CT 6112871251 / Confirmed Histories Past Medical History: Resolved GERD - Gastro-esophageal reflux disease (1268978158): Resolved. Appendicitis (755219605): Resolved. Cough (39636711): Resolved. Sinus drainage (336069772): Resolved. Family History: Acute congestive heart failure Mother Father Hypertension Sister Procedure history: Cardiac catheterization procedure (94340041) on 09/17/2021 at 65 Years. EGD - Esophagogastroduodenoscop y (0213375613) on 04/01/2021 at 65 Years. Appendectomy (484853834) on 10/19/2017 at 62 Years. Ureterorenoscopy with fragmentation and removal of kidney stone (0770827327). EGD - Esophagogastroduodenoscop y (1923698686). Comments: 03/08/2021 10:09 EDT - Helio Navarrete MA during early 40s Tonsillectomy with adenoidectomy (71031280). Arthroplasty of knee (30369217). Arthroplasty of knee (81661664). Social History Social & Psychosocial Habits Alcohol 09/18/2019 Use: Current Comment: denies - 09/18/2019 13:18 - Rosina Bales RN 09/07/2020 Risk Assessment: Denies Alcohol Use Comment: Lexis. - 09/01/2021 23:12 - Nicky Ospina RN Substance Abuse 09/07/2020 Risk Assessment: Denies Substance Abuse Comment: Lexis. - 09/01/2021 23:12 - Nicky Ospina RN Tobacco 09/18/2019 Risk Assessment: Denies Tobacco Use 02/20/2023 Tobacco Use: Never (less than 100 in l Smokeless tobacco use: Never Comment: Denies. - 09/01/2021 23:12 - Anai DUMONT, Nicky Brito . Physical Examination Vital Signs (last 24 hrs) Last Charted Heart Rate Peripheral 62 bpm (FEBRUARY 23:32) SBP H 150mmHg (FEBRUARY 23:32) DBP H 97mmHg (FEBRUARY 23:) Weight 79.8 [...] palpation. Lympha (more content not included)... Normal [facility] Comment on above: Result Comment: Elec tronically Signed By: Valeri CANTRELL, Demar Leal\.br\Date and Time Signed: 02/23/23 13:22 EDT HIPAA Forms Officeon 023 HIPAA Forms Office [id number]#1.00CD:12 7 Normal [facility] Legal Correspondence Officeo n 02-23-2023 Legal Correspondence Office [id number]#1.00CD:[address] [facility] Legal Correspondence Office [id number]#1.00CD:[address] [facility] Office/Clinic Note-Physician on 02-23-2023 Office/Clinic Note-Physician [id number]#1.00CD:[address] [facility] Patient Correspondenceon Patient Correspondence [id number]#1.00CD:[address] [facility] Patient Correspondence [id number]#1.00CD:[address] [facility] Patient Correspondence [id number]#1.00CD:[address] [facility] Patient Correspondence [id number]#1.00CD:[address] [facility] Patient Correspondence [id number]#1.00CD:[address] [facility] Patient Correspondence [id number]#1.00CD:[address] [facility] Patient History Officeon Patient History Office [id number]#1.00CD:[address] [facility] Ambulatory Visit Summaryon 0 02-20-2023 [...] Follow-Up Appointments Thursday 12:30 PM EDT With: Demar Trammell MD Where: [...] - Gastro-esophageal reflux disease Sinus drainage Normal [facility] Outside Records Officeon Outside Records Office [id number]#1.00CD:[address] [facility] Radiology Outside Office Conduit Mechanic yon 02-20-2023 Radiology Outside Office Copy [id number]#1.00CD:1 27 Normal [facility] RAD - Ultrasound Reporton RAD - Ultrasound Report [id number]#1.00CD:12 7 Normal [facility] US SINGLE QUAD RT UPPERon US [...] RYAN VAZQUEZ Date: 2023-02-09 11:57 Normal [facility] Physician Referralon 023 Physician Referral [id number]#1.00CD:12 7 Normal [facility] Covid-19 PCR (CVDTB)on 10-19 SARS-CoV-2 (COVID-19) RNA SHAHEEN+probe Ql (Unsp spec) Detected Abnormal NOT DETECTED [facility] Comment on above: Result Comment: This test is not yet approved or cleared by the [place] FDA. When there are no FDA-approved or cleared tests available, and other criteria are met, FDA can make tests available under an emergency access mechanism called an Emergency Use Authorization (EUA). The EUA for this test is supported by the [employer] of Health and Human Service's declaration that [...] used). Performed By: #### C VDTB #### [facility] [address] [place] [address] Dr. Lorraine Scott INFLUENZA A AND B AGon 11-05 INFLUANEGH SEE BELOW Normal [facility] Comment on above: Result Comment: Nega tive for Flu A protein angiten. Infection due to Flu A cannot be ruled out. Flu A angiten in the sample may be below the detection limit of the test. Performed By: #### I NFLUAB #### [facility] [address] [address] [address] Lorraine Scott [facility] SEE BELOW Normal [facility] Comment on above: Result Comment: Nega tive for Flu B protein antigen. Infection due to Flu B cannot be ruled out. Flu B antigen in the sample may be below the detection limit of the test. Performed By: #### I NFLUAB #### [facility] [address] [address] [address] Lorraine Scott INFLUENZA A AG Negative Normal NEGATIVE SEE COMMENT [facility] Comment on above: Performed By: #### I NFLUAB #### [facility] [address] [address] [address] Lorraine Scott INFLUENZA B AG Negative Normal NEGATIVE SEE COMMENT [facility] Comment on above: Performed By: #### I NFLUAB #### [facility] [address] [place] [address] Dr. Lorraine Scott MG MAMM SCREEN 3D LAURA CADon 10-22-2022 MG MAMM SCREEN 3D LAURA CAD Patient: CHLOE AGARWAL Exam Date: 10/22/2022 : 1955 Gender:F Ordering : DR JUAN CARLOS GIFFORD . Admission #: [id number] Family : Order #: [id number] CLICK HERE TO VIEW EXAM RADIOLOGY REPORT [...] Treatments None Family Cancers None LOCATION: [facility] BREAST COMPOSITION: Scattered areas fibroglandular density. FINDINGS: [...] Vazquez M.D. on 10/23/2022 at 08:41 Normal [facility] XR DEXA BONE DENSITYon [...] by: RYAN VAZQUEZ Date: 2022-10-22 09:12 Normal [facility] PAP ACOG PANEL 2: 30 to 65on 10-03-2022 . . Normal [facility] Comment on above: Result Comment: Perf ormed at: WB Performed By: #### 4 [id number] #### [facility] [address] [address] [address] Lorraine Scott Age Gdln ACOG Testing 30-65 Normal [facility] Comment on above: Performed By: #### 4 [id number] #### [facility] [address] [address] [address] Lorraine Scott DIAGNOSIS: Comment Normal [facility] Comment on above: Result Comment: NEGA TIVE FOR INTRAEPITHELIAL LESION OR MALIGNANCY. CELLULAR CHANGES ASSOCIATED WITH ATROPHY ARE PRESENT. Performed at: WB Performed By: #### 4 [id number] #### [facility] [address] [address] [address] Lorraine Scott HPV Aptima Negative Normal Negative [facility] Comment on above: Result Comment: This nucleic acid amplification test detects fourteen high-risk HPV types (16,18,31,33,35,39,45,51,52,56,58,59,66,68) without differentiation. Performed at: =G Performed By: #### 4 [id number] #### [facility] [address] [place] [address] Dr. Lorraine Scott HPV Genotype Reflex Comment Normal [facility] Comment on above: Result Comment: Crit eria not met, HPV Genotype not performed. Performed at: WB Performed By: #### 4 [id number] #### [facility] [address] [place] [address] Dr. Lorraine Scott Methodology: Comment Normal [facility] Comment on above: Result Comment: This liquid based ThinPrep(R) pap test was screened with the use of an image guided system. Performed at: WB Performed By: #### 4 [id number] #### [facility] [address] [place] [address] Dr. Lorraine Scott Note: Comment Normal [facility] Comment on above: Result [...] Performed at: WB Performed By: #### 4 [id number] #### [facility] [address] [place] [address] Dr. Lorraine Scott Performed by: Comment Normal [facility] Comment on above: Result Comment: Kong Juarez, Assessment Manager (ASCP) Performed at: WB Performed By: #### 4 [id number] #### [facility] [address] [place] [address] Dr. Lorraine Scott Specimen adequacy: Comment Normal [facility] Comment on above: Result Comment: Sati sfactory for evaluation. Endocervical component may not be distinguished in cases of atrophy. Performed at: WB Performed By: #### 4 [id number] #### [facility] [address] [address] [address] Lorraine Scott CHEMISTRYOrdered By: SYSTEM SYSTEM [...] 56 mL/min/1.73 m2 Low >=59mL/min /1.73 m2 [facility] Chem S Glucose [Mass/Vol] 104 mg/dL Normal 55 - 199 mg/dL [facility] Remisol Potassium [Moles/Vol] 4.6 mmol/L Normal 3.5 - 5.3 mmol/L [facility] Remisol Sodium [Moles/Vol] 138 mmol/L Normal 135 - 145 mmol/L [facility] Remisol Urea nitrogen [Mass/Vol] 20 mg/dL Normal 5 - 21 mg/dL [facility] Remisol Urea nitrogen/Creatinine [Mass ratio] 20 mg/mg Normal 10 - 20 [facility] Remisol breast LT limited 06-26 breast LT limited [facility] [place] [address] Mammography Report Signed Patient: Chloe Agarwal MR#: [id number] : 1955 Acct:[id number] Age/Sex: 65 / F ADM Date: 06/26/21 Loc: [place] Room: Type: [facility] CLI Attending Dr: Juan Carlos Gifford MD Ordering Provider: Juan Carlos Gifford MD Date of Service: 06/26/21 MM/MM diagnostic mammo BI w/CAD: BREAST PAIN ([id number]) US/US breast LT limited: BREAST PAIN Copies [...] Cira Pena M.D.06/26/2021 11:36 AM Dictation Location: [facility] Transcribed By: [facility] 06/26/21 1136 Dictated By: Cira Pena MD 06/26/21 0804 Signed By: 06/26/21 1136 [facility] Intraoperative Noteon 2017 Intraoperative Note [id number]#1.00OTGTIF F [facility] Coding Summaryon 12-14-2017 Coding Summary CODING DATE: 018 [facility] STATUS: Home PAYOR: Commercial Insurance APC DESCRIPTION 5361 Level 1 Laparoscopy and Related Services ADMIT DX: REASON FOR VISIT DX: K35.80 Unspecified acute appendicitis FINAL DX: PRINCIPAL: K35.80 Unspecified acute appendicitis SECONDARY: K21.9 Gastro-esophageal reflux disease without esophagitis PYMT PROC APC STAT DESCRIPTION DOCTOR NAME DATE 40507 5361 J1 Laparoscopy, surgical, Adryan Yoon MD appendectomy NOTE: The code number assigned matches the documented diagnosis and / or procedure in the patient's chart. However, the narrative phrase printed from the coding software may appear abbreviated, or result in slightly different terminology. Coded By: Tenisha Smith Date Saved: 12/14/2017 09:53 am [facility] Lab - Other Lab Resultson Lab - Other Lab Results [id number]#1.00OTGTIF F [facility] Operative Report - Surgeon/Jeanette varela 12-09-2017 Operative [...] appendix was inflamed.It was grasped with a Andrés clamp. A defect in the mesoappendix wascreated [...] theprocedure without any difficulties.Adryan Yoon M.D.JOB #: [id number]: 12/09/2017T: 12/09/2017[Electronically Signed on: 12/15/2017 10:32 EST] Adryan Yoon MD[Verified on: 12/15/2017 10:32 EST] Adryan Yoon MD[Transcribed on: 12/09/2017 09:14 EST][facility] Outside Recordson 12-09-2017 Outside Records [id number]#1.00OTGTI FF [facility] Outside Records [id number]#1.00OTGTI FF [facility] MAGR Postoperative Recordon 12-08-2017 MAGR Postoperative Record MAGR Phase II Record Summary Primary Physician: Adryan Yoon MD Finalized Date/Time: 12/08/17 13:12:55 Pt. Name: ANYCHLOE/Sex: 1955 FEMALE Med Rec #: [id number] Physician: Adryan Yoon MD Financial #: [id number] Pt. Type: D Room/Bed: [facility] Admit/Disch: 12/04/17 03:05:00 - 12/05/17 12:30:00 Institution: [...] discharge instructions. General Comments: [facility] Finalized By: hCloe Turcios RN Document Signatures Signed By: Chloe Turcios RN 12/08/17 13:12 [facility] Operative Report - Surgeon/P avery 12-08-2017 Operative Report - Surgeon/Physician [id number]#1.00OTGTIF F [facility] Pathology Sendout Teston Pathology Send Out. See Report [facility] Comment on above: Order Comment: JANET COWART Performed By: #### 2 [id number] ####[facility] (DEFAULT)[address] [place] [address] Provider Orderson 12-08-2017 Provider Orders [id number]#1.00OTGTIF F [facility] Consent Formson 12-07-2017 Consent Forms [id number]#1.00OTGTIF F [facility] Intraoperative Noteon 2017 Intraoperative Note [id number]#1.00OTGTI FF [facility] Medication Managementon 11-19 Medication Management [id number]#1.00OTGTIF F [facility] Telemetry Stripson 8 Telemetry Strips [id number]#1.00OTGTIF F [facility] Discharge Summaryon 12-06-19 Discharge Summary DISCHARGE DIAGNOSIS: Acute appendicitis.DISCHARGE CONDITION: Good.HOSPITAL COURSE: The patient is a 62-year-old woman who presented [facility] emergency department. She was found to have a slightlyelevated white blood cell count. A CT scan was consistent with acuteappendicitis. The patient [facility] be [facility] andas a result, she underwent a laparoscopic appendectomy. Postoperatively sheis doing well. Her white blood cell count decreased to the normal range. Sheis tolerating a regular diet. Her pain is controlled and she is ambulatingwithout difficulty. As a result, she will be discharged home. She willfollow-up with me in two weeks.Adryan Yoon M.D.JOB #: [id number]: 12/05/2017T: 12/06/2017[Electronically Signed on: 12/09/2017 07:13 EST] Adryan Yoon MD[Verified on: 12/09/2017 07:13 EST] Adryan Yoon MD[Transcribed on: 12/06/2017 08:45 EST]GDU Normal [facility] .Auto Diff 1on 12-05-2017 Auto Baso % 0.1 % Low 0.2-2.0 [facility] Comment on above: Performed By: #### 7 [id number], [id number] ####[facility] (DEFAULT)[address] [place] [address] Auto Dundy % 8 % Normal 1-12 [facility] Comment on above: Performed By: #### 7 [id number], [id number] ####[facility] (DEFAULT)[address] [place] [address] Auto Neut % 86 % Normal 44-88 [facility] Comment on above: Performed By: #### 7 [id number], [id number] ####[facility] (DEFAULT)[address] [place] [address] Baso Abs# 0.0 x10 Normal 0.0-0.2 [facility] Comment on above: Performed By: #### 7 [id number], [id number] ####[facility] (DEFAULT)[address] [place] [address] Eos Abs# 0.0 x10 Normal 0.0-0.4 [facility] Comment on above: Performed By: #### 7 [id number], [id number] ####[facility] (DEFAULT)[address] [place] [address] Eosinophils/100 leukocytes 0.0 % Low 0.9-4.0 [facility] Comment on above: Performed By: #### 7 [id number] ####[facility] (DEFAULT)[address] [place] [address] Lymphocytes 0.6 x10 Low 1.3-2.9 [facility] Comment on above: Performed By: #### 7 [id number], [id number] ####[facility] (DEFAULT)[address] [place] [address] Lymphocytes/100 leukocytes 6 % Low 14-48 [facility] Comment on above: Performed By: #### 7 [id number], [id number] ####[facility] (DEFAULT)[address] [place] [address] Dundy Abs# 0.9 x10 High 0.0-0.8 [facility] Comment on above: Performed By: #### 7 [id number], [id number] ####[facility] (DEFAULT)[address] [place] [address] Neut Abs# 9.9 x10 High 1.5-9.2 [facility] Comment on above: Performed By: #### 7 [id number], [id number] ####[facility] (DEFAULT)[address] [place] [address] CBC w/ Auto Diffon 8 Erythrocyte distribution width Auto Ratio (RBC) 13.6 % Normal 11.5-15.0 [facility] Comment on above: Performed By: #### 7 [id number], [id number] ####[facility] (DEFAULT)[address] [place] [address] Erythrocytes (RBC) 3.75 x10 Normal 3.70-5.30 [facility] Comment on above: Performed By: #### 7 [id number], [id number] ####[facility] (DEFAULT)[address] [place] [address] Hematocrit (HCT) 34.4 % Normal 33.7-40.4 [facility] Comment on above: Performed By: #### 7 [id number], [id number] ####[facility] (DEFAULT)[address] [place] [address] Hemoglobin mass conc (Bld) 11.0 g/dL Low 11.3-15.9 [facility] Comment on above: Performed By: #### 7 [id number], [id number] ####[facility] (DEFAULT)[address] [place] [address] Man Diff? Auto Normal [facility] Comment on above: Performed By: #### 7 [id number], [id number] ####[facility] (DEFAULT)[address] [place] [address] MCH 29 pg Normal 24-34 [facility] Comment on above: Performed By: #### 7 [id number], [id number] ####[facility] (DEFAULT)[address] [place] [address] MCHC mass conc (RBC) 32 g/dL Normal 26-37 [facility] Comment on above: Performed By: #### 7 [id number], [id number] ####[facility] (DEFAULT)[address] [place] [address] MCV 92 fL Normal 81-100 [facility] Comment on above: Performed By: #### 7 [id number], [id number] ####[facility] (DEFAULT)[address] [place] [address] Platelet mean volume (PMV) 11.7 fL High 6.3-10.2 [facility] Comment on above: Performed By: #### 7 [id number], [id number] ####[facility] (DEFAULT)[address] [place] [address] Platelets 204 x10 Normal 138-427 [facility] Comment on above: Performed By: #### 7 [id number], [id number] ####[facility] (DEFAULT)[address] [place] [address] WBC (Leukocytes) 11.4 x10 High 3.5-10.5 [facility] Comment on above: Performed By: #### 7 [id number], [id number] ####[facility] (DEFAULT)[address] [place] [address] Education Noteon 12-05-2017 Education Note Education MaterialsGastroenterology [...] Released: 10/05/2006 Document Revised: 02/11/2017 Document Reviewed: 02/20/2016Elsevier Interactive Patient Education ? 2017 [employer] Normal [facility] Inpatient Clinical Summaryon 12-05-2017 Inpatient Clinical Summary [facility] 2SOUTHClinical Discharge SummaryPERSON INFORMATIONName ANYCHLOE Age 62 Years 59Sex FEMALE Language Chilean PCP Agus MCGHEE Status Med Service Ambulatory SurgeryMRN [id number] Acct# Arrival 12/04/17 03:05:00Visit Reason APPENDICITIS Acuity LOS 000 34:38Address:[place] [address]Waghrrf:PROVIDER INFORMATIONVITALS INFORMATIONVital Sign Triage LatestTemp Oral 36.8 DegC 36.4 DegCTemp TemporalTemp IntravascularTemp AxillaryTemp Uuozhu06 Sat 99 % 99 %Respiratory Rate 16 br/min 18 br/minPeripheral Pulse Rate 79 bpm 60 bpmApical Heart Rate 76 bpm 60 bpmBlood Pressure 138 mmHg / 86 mmHg 97 mmHg / 59 mmHgComment:MEDICAL INFORMATIONAllergy Info:Allergies sulfonamidePrescriptions Given:Home Meds Displayacetaminophen-hydr ocodone (Orland 7.5 mg-325 mg oral tablet) 1 tab(s), [...] hours as needed for for painacetaminophen-hydroco done (Orland 7.5 mg-325 mg oral tablet) 1 tab(s) [...] range between ( 1.3 and 2.9 ) Dundy Abs#: 0.9 x103/mcL -- Normal range between ( 0.0 and 0.8 ) Auto Baso %: 0.1 % -- Normal range between ( 0.2 and 2.0 ) Auto Dundy %: 8 % -- Normal range between [...] INFORMATIONInstructions:A ppendicitisFollow up:With: Address: When:Adryan Yoon MD [address] [place] [address], [place] [address] Business (1)DIAGNOSIS1:Acute appendicitisPROBLEMSProbl ems Active Arthritis Heart murmur HeartburnComment:PHYS DOC NOTES Normal [facility] Inpatient Patient Summaryon 12-05-2017 Inpatient Patient Summary [facility] [place] [address] patient Discharge InstructionsName: CHLOE AGARWALDOB: [birth year] Address: [address] Care Provider:Name: YARELIS MCGHEEPhone: After you are discharged if you find you have any questions, please, call [phone] ext [phone] to speak to a nurse.Discharge Diagnosis: 1:Acute [...] or business decisions or sign any legal documentsUniversity Hospitals Health System would like to thank you for allowing us to assist you with your healthcare needs. The following includes patient education materials and information regarding your injury/illness.CHLOE AGARWAL has been given the following list of follow-up instructions, prescriptions, and patient education materials:Follow-up InstructionsWith: Address: When:Adryan Yoon MD [address] [facility] [place] [address] Business (1)MedicationsDuring the course of your visit, your medication list was updated with the most current information. The details of those changes are reflected below:Medications to Continue That Have Not ChangedOther Medicationsacetaminophen- hydrocodone (Orland 7.5 mg-325 mg oral tablet) 1 tab(s) [...] that you can keep with you.acetaminophen-hydroco done (Orland 7.5 mg-325 mg oral tablet) 1 tab(s) [...] Released: 10/05/2006 Document Revised: 02/11/2017 Document Reviewed: 02/20/2016Elsevier Interactive Patient Education ? 2017 [employer].Viruses or BacteriaWhat?s got you sick?Antibiotics only treat [...] for Disease Control and Prevention June 2014 Normal [facility] Progress Note - Nurseon 11-19 Pulse (Heart [...] on: 12/05/2017 09:52 EST] Sim Luong RN [facility] Progress Note - Nurse Pt walking the sachin lway with RN, 200 ft, standby assist. Pt is steady. No c/o SOB or dizziness. Bilateral upper and lower abdominal pain 3/10, prn norco administered as ordered. Will continue to monitor, call light in reach.[Electronically Signed on: 12/05/2017 05:50 EST] Serina Cross[Verified on: 12/05/2017 05:50 EST] Serina Cross [facility] Progress Note - Nurse Pt is a/o and cooperative. Pt c/o upper and lower abdominal pain 3/10, PRN norco administered as ordered. Steri strips [...] alarm on.[Electronically Signed on: 12/04/2017 23:39 EST] ChiocarmelaSerina vinson[Verified on: 12/04/2017 23:39 EST] Serina Cross [facility] Anesthesia Noteon 12-04-2017 Anesthesia Note Patient: CHLOE AGARWAL : 62 years Sex: FEMALE : 59Associated Diagnoses: NoneAuthor: Fernie Sandovalostoperative InformationPost Operative Note: Post Anesthesia Care Unit.Review / ManagementCondition: Stable.AssessmentAnesthet ic outcomeNo anesthetic complications noted.PlanTransfer/ Discharge: Patient can be discharged from PACU when criteria met.Condition good.[Electronically Signed on: 12/04/2017 15:01 EST] Fernie Carver DO[Verified on: 12/04/2017 15:01 EST] Fernie Carver DO [facility] Anesthesia Note Patient: CHLOE AGARWAL : 62 years Sex: FEMALE : 59Associated Diagnoses: NoneAuthor: Fernie Sandovalreoperative InformationAnesthesia history: Patient history: Nausea and vomiting [...] 400 mg = 2 cap(s), PRN, PO, [id number] 20 mg oral delayed release capsule 20 mg = 1 cap(s), PO, DailyProblem list (past medical history):All ProblemsAlteration in comfort: pain / SNOMED CT 50800016 / ConfirmedArthritis / SNOMED CT 7542241 / ConfirmedHeart murmur / SNOMED CT 837451475 / ConfirmedHeartburn / SNOMED CT 61235036 / ConfirmedResolved: Kidney stones / SNOMED CT 328945285Azkzazvb: History of renal stent / SNOMED CT 3142478214Xhhaawii: Acute appendicitis / SNOMED CT 224874109IyzlkllogFtdcks History:DementiaFatherLiv er massSisterCHF (congestive heart failure)MotherFatherProce dure history:History of right total knee replacement (103073856561745).History of left total knee replacement (924527592236281).Tonsill ectomy (016355074).Removal of ureteral stent (636575126).History of ureteral stent placement (5765766408).Social History Alcohol Assessment Use: Never. Tobacco Assessment Never (less than 100 in lifetime) Tobacco Use:. Substance Abuse Assessment Substance use: Never. 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 Home/Environment Assessment Lives with Children, Spouse. Living situation: Home/Independent. Nutrition/Health Assessment Regular, Caffeine intake amount: Hot tea in the morning..Social & Psychosocial WhvzqrZghtkjd31/16/2018 Alcohol Use: NeverEmployment/Inhfeo65 Status: Self employed Description: Office workHome/Tnzeeptlwoy55/16 /2018 Lives with: Children, Spouse Living situation: Home/IndependentNutrition /Hmwsle8112/04/2017 Type of diet: Regular Caffeine intake amount: Hot tea in the morningSubstance Abuse12/04/2017 Substance use: YpfajKjectwd74/16/2018 Smoking tobacco use: Never (less than 100 in l.Physical ExaminationVS/Measurement sMeasurements from flowsheet : Jcnxtbmvfexz78/16/18 03:09 EST Height 152.400 cm Height/Length Dosing 152.400 cm Weight 71.200 kg Weight Dosing 71.200 kg Body Mass Index 30.660 kg/m2,Vital Signs (last 24 hrs) Last ChartedTemp Oral 36.7 DegC (DEC 04 07:00)Heart Rate Peripheral 76 bpm (DEC 04:00)Resp Rate 18 br/min (DEC 04:00)SBP 123 mmHg (DEC 04 07:00)DBP 77 mmHg (DEC 04:)SpO2 99 % (DEC 04:)Weight 71.200 kg (DEC 04 03:09)Height 152.40 cm (DEC 04:09)General: Alert and oriented, No acute distress.Airway: Mallampati classification: II (soft palate, fauces, uvula visible). Temporomandibular joint mobility: Good. Mouth: Teeth ( [place] ). Neck: Non-tender, Full range of motion.Respiratory: [...] on: 12/04/2017 08:38 EST] Fernie Carver DO [facility] History and Physicalon 12-04 History and Physical DATE OF ADMISSION: 12/04/17 MEDICAL HISTORYCHIEF COMPLAINT: Right lower quadrant abdominal pain.HISTORY OF PRESENT ILLNESS: The patient is a 62-year-old woman withabdominal pain. She presented to the emergency department at [facility]. A CT scan of the abdomen and pelvis was obtained which wasconsistent with acute appendicitis. Due to personal reasons, she did notwant the surgery performed at [facility] and as a result, shewanted to be [facility] [...] to undergo the procedure.Adryan Yoon M.D.JOB #: [id number]: 12/04/2017T: 12/04/2017[Electronically Signed on: 12/04/2017 07:16 EST] Adryan Yoon MD[Verified on: 12/04/2017 07:16 EST] Adryan Yoon MD[Transcribed on: 12/04/2017 06:52 EST][facility] MAGR Intraoperative Recordon 12-04-2017 MAGR Intraoperative Record MAGR Intra-Op Record Summary Primary Physician: Adryan Yoon MD Finalized Date/Time: 12/04/17 15:26:26 Pt. Name: CHLOE AGARWAL/Sex: 1955 FEMALE Med Rec #: [id number] Physician: Adryan Yoon MD Financial #: [id number] Pt. Type: D Room/Bed: [facility] Admit/Disch: 12/04/17 03:05:00 - Institution: Case Times [...] Role Performed Surgeon - Primary Anesthesiologist of Heat Treat Operator Record Time In 12/04/17 09:44:00 12/04/17 09:44:00 12/04/17 09:44:00 Time Out 12/04/17 10:42:00 12/04/17 10:42:00 12/04/17 10:42:00 Procedure Appendectomy Appendectomy Appendectomy Laparoscopic Laparoscopic Laparoscopic Last Modified By: Olinda Mora Cynthia M Cartier, Cynthia M 12/04/17 10:56:16 12/04/17 10:56:16 12/04/17 10:56:16 Entry 4 Entry 5 Entry 6 Case Attendee Jennifer Li MANGLE CATCHER BOARD CSFA/MANGLE CATCHER, Antonia Bah RN Role Performed Shoe Handler Scrub Personnel Heat Treat Operator Time In 12/04/17 09:44:00 12/04/17 09:44:00 12/04/17 [...] Primary Procedure Yes Laparoscopic Primary Surgeon Adryan Yoon MD Surgeon Comment LAP APPY- APPENDICITIS Start [...] (O.100) Yes Last Modified By: Olinda Mora 02/16/18 10:36:25 Post-Care Text: E.10 Evaluates for signs [...] Count Time 12/04/17 09:50:00 Performed By BOARD CSFA/RADHA, YESENIA Counts Verification Final Counts Items Included in Sponges, Sharps Final Count Method Manual Final Count Final Count Status Correct Final Counts Olinda Mora, Performed By BOARD LEA/YESENIA GARCIA Surgeon notified of Yes final counts [...] UNIT FLOWTRON FOOT CUFF REG Serial ?# [id number] Equipment Setting FACTORY SETTINGS Last Modified By: [...] Signed By: Antonia Pérez RN 12/04/17 15:26 [facility] MAGR PACU Recordon 8 MAGR PACU Record MAGR PACU Record Luke casas Primary Physician: Adryan Yoon MD Finalized Date/Time: 12/04/17 11:35:32 Pt. Name: CHLOE AGARWAL./Sex: 1955 FEMALE Med Rec #: [id number] Physician: Adryan Yoon MD Financial #: [id number] Pt. Type: D Room/Bed: 229/1 Admit/Disch: 12/04/17 03:05:00 - Institution: PACU Case Times MAGR Entry 1 In PACU I 12/04/17 10:44:00 Discharge from PACU 12/04/17 11:25:00 I Last Modified By: Vernell Gunderson RN 12/04/17 11:35:30 Finalized By: Vernell Gunderson RN Document Signatures Signed By: Vernell Gunderson RN 12/04/17 11:35 [facility] Progress Note - Nurseon 11-19 Progress Note - Nurse Patient admitted t [...] on: 12/04/2017 04:41 EST] Liliane Rivero RN [facility] Vital Signs Date Time Vital Sign Value Performing Clinician Facility 11-25-2023 09:00-0500 Body height 152.4 cm Antionette LOPEZ Work Phone: [facility] 11-25-2023 09:00-0500 Body mass index (BMI) [Ratio] 33.22 kg/m2 Antionette LOPEZ Work Phone: [facility] 11-25-2023 09:00-0500 Body weight 77.17 kg Antionette LOPEZ Work Phone: [facility] 11-25-2023 09:00-0500 Diastolic blood pressure 84 mm[Hg] Antionette LOPEZ Work Phone: [facility] 11-25-2023 09:00-0500 Systolic blood pressure 120 mm[Hg] Antionette LOPEZ Work Phone: [facility] 11-20-2023 13:11-0500 Diastolic blood pressure 81 mm[Hg] Vicky Castillo [facility] 11-20-2023 13:11-0500 Heart rate 59 /min Vicky Castillo [facility] 11-20-2023 13:11-0500 Mean blood pressure 106 mm[Hg] Vicky Castillo [facility] 11-20-2023 13:11-0500 Respiratory rate 18 /min Vicky Castillo [facility] 11-20-2023 13:11-0500 Systolic blood pressure 156 mm[Hg] Vicky Castillo [facility] 11-17-2023 11:36-0500 Diastolic blood pressure 118 mm[Hg] Landon DOUGLAS [facility] 11-17-2023 11:36-0500 Mean blood pressure 135 mm[Hg] Landon DOUGLAS [facility] 11-17-2023 11:36-0500 Systolic blood pressure 170 mm[Hg] Landon DOUGLAS [facility] 11-17-2023 11:27-0500 Blood Pressure Location Landon DOUGLAS [facility] 11-17-2023 11:27-0500 Diastolic blood pressure 107 mm[Hg] Landon DOUGLAS [facility] 11-17-2023 11:27-0500 Heart rate 68 /min Landon DOUGLAS [facility] 11-17-2023 11:27-0500 SaO2% (BldA) [Mass fraction] 98 % Landon DOUGLAS [facility] 11-17-2023 11:27-0500 Systolic blood pressure 171 mm[Hg] Landon DOUGLAS [facility] 10-26-2023 12:48-0500 Diastolic blood pressure 88 mm[Hg] Vicky Castillo [facility] 10-26-2023 12:48-0500 Heart rate 66 /min Vicky Castillo [facility] 10-26-2023 12:48-0500 Mean blood pressure 106 mm[Hg] Vicky Castillo [facility] 10-26-2023 12:48-0500 Respiratory rate 20 /min Vicky Castillo [facility] 10-26-2023 12:48-0500 Systolic blood pressure 143 mm[Hg] Vicky Castillo [facility] 10-07-2023 09:52-0500 Heart rate 68 /min Claudio Monroe [facility] 10-07-2023 09:52-0500 SaO2% (BldA) [Mass fraction] 100 % Snyder Fer [facility] 10-07-2023 09:52-0500 Diastolic blood pressure 95 mm[Hg] Claudio Monroe [facility] 10-07-2023 09:52-0500 Mean blood pressure 113 mm[Hg] Claudio Monroe [facility] 10-07-2023 09:52-0500 Systolic blood pressure 148 mm[Hg] Claudio Monroe [facility] 10-07-2023 09:52-0500 Respiratory rate 16 /min Claudio Fer [facility] 10-07-2023 09:45-0500 Diastolic blood pressure 94 mm[Hg] Claudio Fer [facility] 10-07-2023 09:45-0500 Heart rate 88 /min Claudio Monroe [facility] 10-07-2023 09:45-0500 SaO2% (BldA) [Mass fraction] 100 % Snyder Fer [facility] 10-07-2023 09:45-0500 Systolic blood pressure 178 mm[Hg] Claudio Fer [facility] 10-07-2023 09:03-0500 Heart rate 65 /min Claudio eFr [facility] 10-07-2023 09:03-0500 SaO2% (BldA) [Mass fraction] 98 % Claudio Monroe [facility] 10-07-2023 09:03-0500 Body temperature 97.52 [degF] Claudio Monroe [facility] 10-07-2023 09:03-0500 Diastolic blood pressure 83 mm[Hg] Claudio Monroe [facility] 10-07-2023 09:03-0500 Mean blood pressure 103 mm[Hg] Claudio Monroe [facility] 10-07-2023 09:03-0500 Systolic blood pressure 143 mm[Hg] Claudio Monroe [facility] 10-07-2023 09:03-0500 Respiratory rate 14 /min Claudio Monroe [facility] 09-22-2023 11:23-0500 Diastolic blood pressure 88 mm[Hg] Demar Trammell [facility] 09-22-2023 11:23-0500 Heart rate 60 /min Demarjorge Trammell [facility] 09-22-2023 11:23-0500 Mean blood pressure 105 mm[Hg] Demar Valeri [facility] 09-22-2023 11:23-0500 Respiratory rate 14 /min Demar Trammell [facility] 09-22-2023 11:23-0500 Systolic blood pressure 138 mm[Hg] Demar Valeri [facility] 07-14-2023 09:26-0400 Diastolic blood pressure 78 mm[Hg] Vicky STANG [facility] 07-14-2023 09:26-0400 Mean blood pressure 101 mm[Hg] Vicky STANG [facility] 07-14-2023 09:26-0400 Systolic blood pressure 146 mm[Hg] Vicky STANG [facility] 07-14-2023 09:15-0400 Blood Pressure Location Vicky STANG [facility] 07-14-2023 09:15-0400 Diastolic blood pressure 82 mm[Hg] Vicky STANG [facility] 07-14-2023 09:15-0400 Heart rate 67 /min Vicky LAST [facility] 07-14-2023 09:15-0400 SaO2% (BldA) [Mass fraction] 98 % Vicky LAST [facility] 07-14-2023 09:15-0400 Systolic blood pressure 148 mm[Hg] Vicky LAST [facility] 06-30-2023 15:15-0400 Diastolic blood pressure 97 mm[Hg] Landon DOUGLAS [facility] 06-30-2023 15:15-0400 Mean blood pressure 123 mm[Hg] Landon DOUGLAS [facility] 06-30-2023 15:15-0400 Systolic blood pressure 174 mm[Hg] Landon DOUGLAS [facility] 06-30-2023 15:05-0400 Blood Pressure Location Landon DOUGLAS [facility] 06-30-2023 15:05-0400 Diastolic blood pressure 98 mm[Hg] Landon DOUGLAS [facility] 06-30-2023 15:05-0400 Heart rate 80 /min Landon DOUGLAS [facility] 06-30-2023 15:05-0400 SaO2% (BldA) [Mass fraction] 99 % Landon DOUGLAS [facility] 06-30-2023 15:05-0400 Systolic blood pressure 166 mm[Hg] Landon DOUGLAS [facility] 06-08-2023 08:21-0400 Diastolic blood pressure 94 mm[Hg] Vicky Castillo [facility] 06-08-2023 08:21-0400 Heart rate 62 /min Vicky Castillo [facility] 06-08-2023 08:21-0400 Respiratory rate 16 /min Vicky Castillo [facility] 06-08-2023 08:21-0400 Systolic blood pressure 156 mm[Hg] Vicky Castillo [facility] 06-05-2023 10:45-0400 Diastolic blood pressure 70 mm[Hg] Prasad Infantee [facility] 06-05-2023 10:45-0400 Heart rate 70 /min Prasad Robbie [facility] 06-05-2023 10:45-0400 Mean blood pressure 97 mm[Hg] Prasad Robbie [facility] 06-05-2023 10:45-0400 Respiratory rate 20 /min Prasad Robbie [facility] 06-05-2023 10:45-0400 SaO2% (BldA) [Mass fraction] 96 % Prasad Robbie [facility] 06-05-2023 10:45-0400 Systolic blood pressure 152 mm[Hg] Prasad Robbie [facility] 06-05-2023 09:25-0400 Diastolic blood pressure 70 mm[Hg] Prasad Robbie [facility] 06-05-2023 09:25-0400 Heart rate 71 /min Prasad Robbie [facility] 06-05-2023 09:25-0400 Mean blood pressure 96 mm[Hg] Prasad Robbie [facility] 06-05-2023 09:25-0400 Respiratory rate 17 /min Prasad Robbie [facility] 06-05-2023 09:25-0400 SaO2% (BldA) [Mass fraction] 99 % Prasad Robbie [facility] 06-05-2023 09:25-0400 Systolic blood pressure 147 mm[Hg] Prasad Avalos [facility] 06-05-2023 08:54-0400 gluc 109 mg/dL Prasad Avalos [facility] 06-05-2023 08:54-0400 gluc Prasad Avalos [facility] 06-05-2023 08:47-0400 Body temperature 98.06 [degF] Prasad Avalos [facility] 06-05-2023 08:47-0400 Diastolic blood pressure 106 mm[Hg] Prasad Avalos [facility] 06-05-2023 08:47-0400 Heart rate 81 /min Prasad Avalos [facility] 06-05-2023 08:47-0400 Respiratory rate 20 /min Prasad Avalos [facility] 06-05-2023 08:47-0400 SaO2% (BldA) [Mass fraction] 97 % Prasad Avalos [facility] 06-05-2023 08:47-0400 Systolic blood pressure 173 mm[Hg] Prasad Avalos [facility] 04-28-2023 09:05-0400 Diastolic blood pressure 87 mm[Hg] Vickyjayden LAST [facility] 04-28-2023 09:05-0400 Mean blood pressure 111 mm[Hg] Vicky STANG [facility] 04-28-2023 09:05-0400 Systolic blood pressure 160 mm[Hg] Vickyjayden MCDOWELLG [facility] 04-28-2023 08:55-0400 Blood Pressure Location Vicky LAST [facility] 04-28-2023 08:55-0400 Diastolic blood pressure 88 mm[Hg] Vciky LAST [facility] 04-28-2023 08:55-0400 Heart rate 66 /min Vicky LAST [facility] 04-28-2023 08:55-0400 SaO2% (BldA) [Mass fraction] 97 % Vicky LAST [facility] 04-28-2023 08:55-0400 Systolic blood pressure 153 mm[Hg] Vicky LAST [facility] 04-20-2023 13:54-0400 Diastolic blood pressure 89 mm[Hg] Demar Valeri [facility] 04-20-2023 13:54-0400 Diastolic blood pressure 84 mm[Hg] Demar Valeri [facility] 04-20-2023 13:54-0400 Heart rate 72 /min Demar Valeri [facility] 04-20-2023 13:54-0400 Heart rate 62 /min Demar Valeri [facility] 04-20-2023 13:54-0400 Mean blood pressure 112 mm[Hg] Demar Valeri [facility] 04-20-2023 13:54-0400 Respiratory rate 14 /min Demar Valeri [facility] 04-20-2023 13:54-0400 Systolic blood pressure 159 mm[Hg] Demar Valeri [facility] 04-20-2023 13:54-0400 Systolic blood pressure 147 mm[Hg] Demar Valeri [facility] 04-03-2023 10:40-0400 Diastolic blood pressure 62 mm[Hg] NILL [facility] 04-03-2023 10:40-0400 Heart rate 69 /min NILL [facility] 04-03-2023 10:40-0400 Respiratory rate 32 /min NILL [facility] 04-03-2023 10:40-0400 SaO2% (BldA) [Mass fraction] 96 % NILL [facility] 04-03-2023 10:40-0400 Systolic blood pressure 100 mm[Hg] NILL [facility] 04-03-2023 10:30-0400 Diastolic blood pressure 56 mm[Hg] NILL [facility] 04-03-2023 10:30-0400 Heart rate 65 /min NILL [facility] 04-03-2023 10:30-0400 Respiratory rate 20 /min NILL [facility] 04-03-2023 10:30-0400 SaO2% (BldA) [Mass fraction] 95 % NILL [facility] 04-03-2023 10:30-0400 Systolic blood pressure 93 mm[Hg] NILL [facility] 04-03-2023 10:25-0400 Diastolic blood pressure 59 mm[Hg] NILL [facility] 04-03-2023 10:25-0400 Heart rate 69 /min NILL [facility] 04-03-2023 10:25-0400 Respiratory rate 17 /min NILL [facility] 04-03-2023 10:25-0400 SaO2% (BldA) [Mass fraction] 94 % NILL [facility] 04-03-2023 10:25-0400 Systolic blood pressure 102 mm[Hg] [facility] 04-03-2023 10:20-0400 Blood Pressure Location NILL [facility] 04-03-2023 10:15-0400 Blood Pressure Location N[facility] 04-03-2023 10:15-0400 Body temperature 96.8 [degF] [facility] 04-03-2023 09:47-0400 Respiratory rate 18 /min Michael ROLANDL [facility] 04-03-2023 09:24-0400 Blood Pressure Location N[facility] 04-03-2023 09:24-0400 Body temperature 96.8 [degF] [facility] 03-17-2023 11:37-0400 Heart rate 78 /min Demar Trammell [facility] 03-17-2023 11:37-0400 SaO2% (BldA) [Mass fraction] 98 % Demar Trammell [facility] 03-17-2023 11:37-0400 Diastolic blood pressure 63 mm[Hg] Demar Trammell [facility] 03-17-2023 11:37-0400 Mean blood pressure 87 mm[Hg] Demar Trammell [facility] 03-17-2023 11:37-0400 Systolic blood pressure 136 mm[Hg] Demar Valeri [facility] 03-17-2023 11:33-0400 Diastolic blood pressure 114 mm[Hg] Demar Valeri [facility] 03-17-2023 11:33-0400 Heart rate 91 /min Demar Valeri [facility] 03-17-2023 11:33-0400 Respiratory rate 14 /min Demar Valeri [facility] 03-17-2023 11:33-0400 SaO2% (BldA) [Mass fraction] 99 % Demar Valeri [facility] 03-17-2023 11:33-0400 Systolic blood pressure 156 mm[Hg] Demar Valeri [facility] 03-17-2023 10:56-0400 Heart rate 89 /min Demar Valeri [facility] 03-17-2023 10:56-0400 SaO2% (BldA) [Mass fraction] 100 % Demar Valeri [facility] 03-17-2023 10:56-0400 Diastolic blood pressure 87 mm[Hg] Demar Valeri [facility] 03-17-2023 10:56-0400 Mean blood pressure 104 mm[Hg] Demar Valeri [facility] 03-17-2023 10:56-0400 Systolic blood pressure 138 mm[Hg] Demar Valeri [facility] 03-17-2023 10:56-0400 Body temperature 98.06 [degF] Demar Valeri [facility] 03-17-2023 10:56-0400 Respiratory rate 12 /min Demar Valeri [facility] 02-23-2023 12:32-0400 Diastolic blood pressure 97 mm[Hg] Demar Valeri [facility] 02-23-2023 12:32-0400 Heart rate 62 /min Demar Valeri [facility] 02-23-2023 12:32-0400 Mean blood pressure 115 mm[Hg] Demar Valeri [facility] 02-23-2023 12:32-0400 Respiratory rate 12 /min Demar Valeri [facility] 02-23-2023 12:32-0400 Systolic blood pressure 150 mm[Hg] Demar Valeri [facility] 02-20-2023 13:22-0400 Blood Pressure Location N[facility] [place] 02-20-2023 13:22-0400 Diastolic blood pressure 84 mm[Hg] [facility] [place] 02-20-2023 13:22-0400 Heart rate 72 /min [facility] [place] 02-20-2023 13:22-0400 Respiratory rate 16 /min [facility] [place] 02-20-2023 13:22-0400 Systolic blood pressure 122 mm[Hg] [facility] [place] 04-29-2022 09:28-0400 Blood Pressure Location Vicky LAST [facility] 04-29-2022 09:28-0400 Diastolic blood pressure 71 mm[Hg] Vicky LAST [facility] 04-29-2022 09:28-0400 Heart rate 73 /min Vicky LAST [facility] 04-29-2022 09:28-0400 Respiratory rate 18 /min Vicky LAST [facility] 04-29-2022 09:28-0400 SaO2% (BldA) [Mass fraction] 99 % Vicky LAST [facility] 04-29-2022 09:28-0400 Systolic blood pressure 106 mm[Hg] Vicky LAST [facility] Encounters Encounter Date Encounter Type Care Provider Facility Start: 11-25-2023 End: 11-25-2023 ambulatory ANTIONETTE YANG Not Available Start: 11-25-2023 End: 11-25-2023 Patient encounter procedure [facility]Z [facility] Work Phone: Start: 11-25-2023 End: 11-25-2023 Periodic preventive med est patient 65yrs& older Antionette LOPEZ Work Phone: [facility] Comment on above: Well woman exam with routine gynecological exam; Breast cancer screening by mammogram; Other osteoporosis, unspecified pathological fracture presence (CMS/HCC); Restless legs; Well woman exam Start: 11-20-2023 End: 11-21-2023 ambulatory Vicky Castillo Facility:[facility] Start: 11-20-2023 End: 11-20-2023 Pain Management Vicky Castillo [facility] Start: 11-17-2023 End: 11-18-2023 ambulatory XXXX NONE Facility:[facility] Start: 11-17-2023 End: 11-17-2023 Patient encounter procedure Landon DOUGLAS [facility] Start: 10-26-2023 End: 10-27-2023 ambulatory Vicky Castillo Facility:[facility] Start: 10-26-2023 End: 10-26-2023 Patient encounter procedure Vicky Castillo [facility] Start: 10-26-2023 End: 10-26-2023 Pain Management Vicky Castillo [facility] Start: 10-07-2023 End: 10-08-2023 ambulatory Claudio Monroe Facility:[facility] Start: 10-07-2023 End: 10-07-2023 Pain Management Claudio Monroe [facility] Start: 09-22-2023 End: 09-23-2023 ambulatory Yarelis Crkarel Facility:[facility] Start: 09-22-2023 End: 09-22-2023 Pain Management Demar Trammell [facility] Start: 09-15-2023 End: 09-15-2023 ambulatory THIERRYMARIANNE VILLALOBOS Not Available Start: 08-06-2023 End: 08-07-2023 ambulatory Barry Husain Facility:[facility] Start: 08-06-2023 End: 08-06-2023 Patient encounter procedure Barry Celested [facility] Start: 07-23-2023 End: 07-24-2023 ambulatory Landon DOUGLAS Facility:[facility] Start: 07-14-2023 End: 07-15-2023 ambulatory XXXX NONE Facility:[facility] Start: 07-14-2023 End: 07-14-2023 Hypertension screening status Vicky LAST [facility] Start: 07-14-2023 End: 07-14-2023 Patient encounter procedure Vicky LAST [facility] Start: 06-30-2023 End: 07-01-2023 ambulatory XXXX NONE Facility:[facility] Start: 06-30-2023 End: 06-30-2023 Patient encounter procedure Landon DOUGLAS [facility] Start: 06-08-2023 End: 06-09-2023 ambulatory Yarelis Mcghee Facility:[facility] Start: 06-08-2023 End: 06-08-2023 Pain Management Vicky Castillo [facility] Start: 06-05-2023 End: 06-05-2023 Emergency department patient visit Prasad Avalos Facility:[facility] Start: 06-05-2023 End: 06-05-2023 Emergency department patient visit Prasad Avalos [facility] Start: 05-04-2023 End: 05-05-2023 ambulatory Vicky Castillo Facility:[facility] Start: 05-04-2023 End: 05-04-2023 Pain Management Vicky Castillo [facility] Start: 04-28-2023 End: 04-29-2023 ambulatory XXXX NONE Facility:[facility] Start: 04-28-2023 End: 04-28-2023 Patient encounter procedure Vicky LAST [facility] Start: 04-20-2023 End: 04-21-2023 ambulatory MD Demar Trammell Facility:[facility] Start: 04-20-2023 End: 04-20-2023 Pain Management Demar Trammell [facility] Start: 04-15-2023 End: 04-16-2023 ambulatory Michael ALBRIGHT Facility: [facility] Start: 04-15-2023 End: 04-15-2023 Patient encounter procedure Michael ALBRIGHT General [facility] Start: 04-07-2023 End: 04-08-2023 ambulatory MD Demar Trammell Facility:[facility] Start: 04-03-2023 End: 04-03-2023 ambulatory Michael ALBRIGHT Facility:[facility] Start: 04-03-2023 End: 04-03-2023 Patient encounter procedure Michael ALBRIGHT [facility] Start: 03-17-2023 End: 03-18-2023 ambulatory MD Demar Trammell Facility:[facility] Start: 03-17-2023 End: 03-17-2023 Pain Management Demar Trammell [facility] Start: 03-03-2023 End: 03-04-[address] YARELIS MCGHEE . Facility: Start: 02-23-2023 End: 02-24-2023 ambulatory Yarelis Mcghee Facility:[facility] Start: 02-23-2023 End: 02-23-2023 Pain Management Demar Trammell [facility] Start: 02-20-2023 End: 02-21-2023 ambulatory Michael ALBRIGHT Facility: [facility] Start: 02-20-2023 End: 02-20-2023 Patient encounter procedure Michael ALBRIGHT General Surgery [facility] Start: 02-09-2023 End: 02-10-[address] YARELIS MCGHEE . Facility: Start: 11-05-2022 End: 11-05-[address] YARELIS MCGHEE . Facility: Start: 10-27-2022 End: 10-27-2022 Patient encounter procedure Vicky LAST [facility] Start: 10-22-2022 End: 10-23-[address] JUAN CARLOS GIFFORD . Facility:[facility] Start: 09-24-2022 End: 09-24-[address] JUAN CARLOS GIFFORD . Facility:[facility] Start: 04-29-2022 End: 04-29-2022 Patient encounter procedure Vicky LAST [facility] Start: 12-05-2017 End: 04-15-2018 Ambulatory Adryan Car Facility:[facility] Procedures Date Procedure Procedure Detail Performing Clinician Start: 10-07-2023 Injection of nerve root of lumbar spine using fluoroscopic guidance Vicky Castillo Comment on above: right L5/S1 TFESI- 50% relief x 3 days t hen no relief Start: 04-20-2023 Injection of steroid into hip joint Vicky Castillo Comment on above: Right Hip Bursa Injection-50% relief Start: 04-03-2023 Colonoscopy Antionette LOPEZ Work Phone: Start: 04-03-2023 Colonoscopy Michael ROLANDL Start: 04-03-2023 Esophagogastroduodenoscopy Michael ROLANDL Start: 03-17-2023 Injection of nerve root of lumbar spine using fluoroscopic guidance Michael ALBRIGHT Comment on above: 75% relief Start: 10-22-2022 Mammography Antionette LOPEZ Work Phone: Start: 09-17-2021 Cardiac catheterization [facility] LAST Start: 04-01-2021 Esophagogastroduodenoscopy Vicky LAST Start: 10-19-2017 Appendectomy Vicky LAST Start: 10-19-1961 Tonsillar structure (palatine) (body structure) [facility] Comment on above: Tonsilectomy Arthroplasty of knee Michael ALBRIGHT Esophagogastroduodenoscopy A maicol SHALA Comment on above: during early 40s Knee region structur e (body structure) [facility] Comment on above: Knee replacement x 2 Tonsillectomy and adenoidectomy Michael ALBRIGHT Ureterorenoscopy wit h fragmentation and removal of calculus of kidney [facility] Plan of Treatment Date Care Activity Detail Author Start: 04-03-2033 Screening for malign ant neoplasm of colon [facility] Start: 11-28-2024 End: 11-28-2024 Patient encounter procedure 11/28/2024 9:00 AM EST Office Visit [facility] [address] [address] Antionette Yang PA [address] [place], [place] [id number] [facility] Start: 11-25-2023 End: 11-25-2024 Lipid 1996 panel - Serum or Plasma Lipid panel Lab Routine Well woman exam with routine gynecological exam Well woman exam Expected: 11/25/2023 (Approximate), Expires: 11/25/2024 [facility] Comment on above: Expected: 11/25/2023 (Approximate), Expires: 11/25/2024 Start: 11-25-2023 End: 01-23-2025 MG Breast - bilateral Screening Bilateral screening mammogram Imaging Routine Breast cancer screening by mammogram Expected: 11/25/2023, Expires: 01/23/2025 [facility] Work Phone: Comment on above: Expected: 11/25/2023 , Expires: 01/23/2025 Start: 10-22-2023 Screening for malign ant neoplasm of breast Mammogram [facility] Start: 06-19-2023 Influenza vaccination Influenza Vacc ine (#1) [facility] Start: 2022 Pneumococcal Vaccine : 65+ Years (1 - PCV) Pneumococcal Vaccine: 65+ Years (1 - PCV) [facility] Start: 1955 Screening for malign ant neoplasm of colon [facility] CBC W Auto Different ial panel - Blood CBC and differential Lab Routine Well woman exam with routine gynecological exam Well woman exam Ordered: 11/25/2023 [facility] Comment on above: Ordered: 11/25/2023 Comprehensive metabo lic 2000 panel - Serum or Plasma Comprehensive metabolic panel Lab Routine Well woman exam with routine gynecological exam Well woman exam Ordered: 11/25/2023 [facility] Comment on above: Ordered: 11/25/2023 Hemoglobin A1c measurement Hemoglobin A1c Lab Routine Well woman exam with routine gynecological exam Well woman exam Ordered: 11/25/2023 [facility] Comment on above: Ordered: 11/25/2023 THIN PREP TIS PAP AN D HR HPV DNA THIN PREP TIS PAP AND HR HPV DNA Pathology and Cytology Routine Well woman exam with routine gynecological exam Ordered: 11/25/2023 [facility] Comment on above: Ordered: 11/25/2023 Thyrotropin [Units/volume] in Serum or Plasma TSH Lab Routine Well woman exam with routine gynecological exam Well woman exam Ordered: 11/25/2023 [facility] Comment on above: Ordered: 11/25/2023 Immunizations Immunization Date Immunization Notes Care Provider [facility] 07-23-2021 SARS-CoV-2 (COVID-19 ) mRNA BNT-162b2 vax [facility] [place] 07-02-2021 SARS-CoV-2 (COVID-19 ) mRNA BNT-162b2 vax [facility] [place] 02-22-2021 zoster vaccine recombinant Antionette LOPEZ Work Phone: [facility] 11-12-2020 zoster vaccine recombinant Antionette LOPEZ Work Phone: [facility] NEGATED: Highlighted row has not occurred!12-25-2021 influenza virus vaccine, unspecified formulation Vicky LAST [facility] NEGATED: Highlighted row has not occurred!10-16-2021 influenza virus vaccine, unspecified formulation Vicky LAST [facility] Payers Date Payer Category Payer Unknown AARP AARP [id number] 2022-Present [address] [place] [address] [id number] 2022 Medicare MEDICARE MEDICAR E PART B [id number] 2022-[place] [address] Medicare [id number] 2017 Unknown [id number] 1959 Medicare [id number] 1959 Unknown [id number] 1957 Unknown [id number] 2.16.840.1.377022.3.579.2.593 1957 Unknown [id number] 2.16.840.1.632879.3.579.2.593 1957 Unknown [id number] 2.16.840.1.206452.3.579.2.593 1957 Unknown [id number] 2.16.840.1.346267.3.579.2.593 1957 Unknown [id number] 2.16.840.1.769618.3.579.2.593 1957 Unknown [id number] 2.16.840.1.605640.3.579.2.727 1957 Unknown [id number] 2.16.840.1.866523.3.579.2.727 1957 Unknown [id number] 2.16.840.1.462686.3.579.2.727 1957 Unknown [id number] 2.16.840.1.815403.3.579.2.727 1957 Unknown [id number] 2.16.840.1.934651.3.579.2.727 1957 Unknown [id number] 2.16.840.1.644540.3.579.2.727 1957 Unknown [id number] 2.16.840.1.289476.3.579.2. 1957 Unknown [id number] 2.16.840.1.481392.3.579.2 1957 Unknown [id number] 2.16.840.1.864687.3.579.2 1957 Unknown [id number] 2.16.840.1.224779.3.579.2 1957 Unknown [id number] 2.16.840.1.708433.3.579.2 1957 Unknown [id number] 2.16.840.1.516571.3.579. 1957 Unknown [id number] 2.16.840.1.344977.3.579. 1957 Unknown [id number] 2.16.840.1.369139.3.579. 1957 Unknown [id number] 2.16.840.1.098692.3.579. 1957 Unknown [id number] 2.16.840.1.614286.3.579.2 1957 Unknown [id number] 2.16.840.1.959405.3.579.2 1957 Unknown [id number] 2.16.840.1.990824.3.579.2 1957 Unknown [id number] 2.16.840.1.697755.3.579.2 1957 Unknown [id number] 2.16.840.1.471657.3.579.2 1957 Unknown [id number] 2.16.840.1.898638.3.579.2 1957 Unknown [id number] 2.16.840.1.917757.3.579.2.1259 1957 Unknown [id number] 2.16.840.1.097822.3.579.2.1259 Social History Date Type Detail Facility Start: 12-25-2021 End: 05-20-2023 Tobacco smoking status Never smoked tobacco (finding) [facility] Comment on above: Denies. Start: 09-15-2023 End: 11-24-2023 Sex Assigned At Female [facility] Tobacco smoking status Never [facility] [place] Comment on above: Denies. Tobacco [facility] Comment on above: denies Tobacco smoking status No Smokin g Status Entered [facility] Start: 05-20-2023 Tobacco use and exposure Smokeless tobacco non-user [facility] Start: 11-25-2023 Alcohol intake Current drinke r of alcohol (finding) [facility] Start: 09-15-2023 End: 11-24-2023 History of Social function [facility] How often to you hav e a drink containing alcohol? Monthly or less [facility] How many standard drinks containing alcohol do you have on a typical day? 1 or 2 [facility] How often do you hav e 6 or more drinks on 1 occasion? Never [facility] Start: 05-20-2023 Alcohol Comment 1 or 2 drinks/ day, monthly or less; Caffeine: 1-2 cups/day [facility] Start: 1955 Sex Assigned At Not on file [facility] Functional Status Date Assessment Result Facility 11-20-2023 Functional Status N/A [facility] 11-17-2023 Functional Status No [facility] 10-26-2023 Functional Status N/A [facility] 10-07-2023 Functional Status N/A [facility] 09-22-2023 Functional Status N/A [facility] 07-14-2023 Functional Status No [facility] 06-30-2023 Functional Status No [facility] 06-08-2023 Functional Status N/A [facility] 06-05-2023 Functional Status N/A [facility] 05-04-2023 Functional Status N/A [facility] 04-28-2023 Functional Status No [facility] 04-20-2023 Functional Status N/A [facility] 04-03-2023 Functional Status N/A [facility] 03-17-2023 Functional Status N/A [facility] 02-23-2023 Functional Status N/A [facility] 02-20-2023 Functional Status N/A [facility] 04-29-2022 Functional Status N/A [facility] Clinical Notes 10-08-2021 to 11-25-2023 JESSICA Hunt - 11/25/2023 9:00 AM EST Note Date & Type Note Facility 11-25-2023 History of Presen t illness Narrative Reason for Appointment: Patient ID: Chloe Agarwal is a 68 y.o. female who presents for [facility] Women Visit Patient presents today for Annual Exam appointment. Current Medications: has a current medication list which includes the following prescription(s): alendronate, hydrochlorothiazide, losartan, metoprolol succinate xl, pantoprazole, ropinirole, and sucralfate. Medical History: Active Ambulatory Problems Diagnosis Date Noted Hallux valgus with bunions of right foot 05/21/2023 Resolved Ambulatory Problems Diagnosis Date Noted No Resolved Ambulatory Problems Past Medical History: Diagnosis Date Acquired hallux valgus of right foot Breast pain Foot pain, right Foot pain, right Gastro-esophageal reflux disease without esophagitis Nondisp fx of fifth metatarsal bone, right foot Normal gynecologic examination Post menopausal syndrome Postprocedural hypertension Family History Problem Relation Name Age of Onset Early natural Mother Heart disease Mother Heart disease Father Social History Tobacco Use Smoking status: Never Smokeless tobacco: Never Vaping Use Vaping Use: Never used Substance Use Topics Alcohol use: Yes Comment: 1 or 2 drinks/day, monthly or less; Caffeine: 1-2 cups/day Drug use: Never Past Surgical History: Procedure Laterality Date FOOT SURGERY Bilateral [address] Prasad Villalobos KNEE SURGERY Bilateral Left: 2005; Right: 2015 [facility] LAPAROSCOPIC APPENDE[facility]OMY 12/04/2017 [facility] REMOVAL OF KIDNEY STONE 2007 Allergies Allergen Reactions Gabapentin Headache Lisinopril Other Reaction(s): Coughing Sulfa Antibiotics Other Reaction(s): Unknown Review of Systems: Review of Systems Constitutional: Negative. HENT: Negative. Eyes: Negative. Respiratory: Negative. Cardiovascular: Negative. Gastrointestinal: Negative. Genitourinary: Negative. Musculoskeletal: Negative. Skin: Negative. Neurological: Negative. All other systems reviewed and are negative. Hematological: Negative. Endocrine: Negative. Allergic/Immunologic: Negative. Objective Physical Exam Constitutional: Appearance: Normal appearance. She is well-developed. Genitourinary: Vulva normal. Vaginal cuff intact. Right Adnexa: not tender and no mass present. Left Adnexa: not tender and no mass present. No cervical discharge. Breasts: Breasts are soft. Right: Normal. Left: Normal. Cardiovascular: Rate and Rhythm: Normal rate and regular rhythm. Pulmonary: Effort: Pulmonary effort is normal. Breath sounds: Normal breath sounds. Abdominal: General: Bowel sounds are normal. There is no distension. Palpations: Abdomen is soft. Tenderness: There is no abdominal tenderness. There is no guarding or rebound. Musculoskeletal: General: No swelling. Normal range of motion. Right lower leg: No edema. Left lower leg: No edema. Neurological: Mental Status: She is alert and oriented to person, place, and time. Skin: General: Skin is warm and dry. Psychiatric: Mood and Affect: Mood normal. Behavior: Behavior normal. Vitals and nursing note reviewed. Exam conducted with a database administration associate present. Vitals: Estimated body mass index is 33.22 kg/m as calculated from the following: Height as of this encounter: 5'. Weight as of this encounter: 170 lb 1.9 oz. BP: 120/84 No LMP recorded. Patient is postmenopausal. Assessment/Plan Encounter Diagnoses Name Primary? Well woman exam with routine gynecological exam Breast cancer screening by mammogram Other osteoporosis, unspecified pathological fracture presence ([facility]) Patient presents today for an annual exam. Patient states she is doing well and has no complaints. Pap was obtained without difficulty and patient given mammogram order to have scheduled/obtained. Patient does have complaints of Restless legs and cramping. Patient was advised we will send a script for Magnesium. Patient also requesting wellness labs to be completed at this time and script was sent for Fosamax. Follow Up: Patient is to return in one year for annual unless needed otherwise. Documented by Lakshmi Crowley LPN on behalf of: JESSICA Hunt documented in this encounter [facility] 11-20-2023 Evaluation + Plan note Extrac nida from: Title:Pain Managment Follow up Author:Vicky Adams [...] will let us know what she decides OARRS reviewed ELVIS score: 30% Future Appointments Appointment Date:12/14/2023 10:45:00 AM Scheduled Provider:Barry Husain MD Location:[facility] Appointment Type:Pulmonary New Patient ([facility]) Appointment Date:12/18/2023 01:45:00 PM Scheduled Provider:Willie Kaur MD Location:[facility] [place] Appointment Type:Cardiology Follow Up (FT) [facility]01-08-2024 Evaluation + Plan noteExtracted from: Title:Pain Managment [...] we will start with a new x-ray. OARRS reviewed ELVIS score: 30% Future Appointments Appointment Date:11/17/2023 11:30:00 AM Scheduled Provider:Landon DOUGLAS MD Location:.Cardiology Clinic Appointment Type:Cardiology Follow Up (FT) Appointment Date:11/20/2023 01:15:00 PM Scheduled Provider:Vicky Castillo PA-C Location:[facility] [place] Appointment Type:Pain Management - Follow Up (FT) [facility]12-20-2023 Evaluation + Plan noteExtracted from: Title:Right L5/S1 [...] Date:10/30/2023 08:15:00 AM Scheduled Provider:Vicky Castillo PA-C Location:.[facility] [place] Appointment Type:Pain Management - Follow Up (FT) Appointment Date:11/17/2023 11:30:00 AM Scheduled Provider:Landon DOUGLAS MD Location:.Cardiology Clinic Appointment Type:Cardiology Follow Up (FT) [facility]12-20-2023 Note [id number] NoteDiagnosis: M54.16 Lumbar radiculopathy Procedure: [...] and agrees to comply to currently prescribed/recommended therapies.[facility] Comment on above:Result Comment: Electronically Signed By: Claudio Monroe DO\Date and Time Signed: 10/07/23 09:54 [id number] Evaluation + Plan note Extracted from: Title:FUV [...] Location:[facility] Appointment Type:Cardiology Follow Up (FT) [facility]08-21-2023 Evaluation + Plan noteExtracted from: Title:Pain Managment [...] Clinic Appointment Type:Cardiology ED Follow Up (FT) [facility]08-18-2023 Evaluation + Plan noteExtracted from: Title:ED Note Author:Prasad Avalos DO Date:05/19 06/10 Dizziness (R42: Dizziness an d giddiness) Hypertension (I10: Essential (primary) hypertension) Orders: losartan, 50 mg = 1 tab(s), Oral, Daily, X 30 day(s), # 30 tab(s), Refills(s) 0, Pharmacy: [id number], 152.4, cm, 06/05/23 8:54:00 EDT, Height/Length [...] Date:06/08/2023 08:15:00 AM Scheduled Provider:Vicky Castillo PA-C Location:[facility] Appointment Type:Pain Management - Follow Up (FT) Appointment Date:07/06/2023 11:00:00 AM Scheduled Provider:Landon DOUGLAS MD Location:[facility] Appointment Type:Cardiology ED Follow Up (FT) [facility]08-18-2023 Hospital Discharge instructions Follow Up Care 06/05/2023 08:40:51 With:Yarelis Mcghee Address: [address] [place] [address]- Business (1) When:Within 3 Day(s) [facility]07-17-2023 Evaluation + Plan noteExtracted from: Title:Pain Managment Follow up Author:Vicky Adams Date:05/04/23 Impression and Plan Patient is [...] Date:06/08/2023 08:15:00 AM Scheduled Provider:Vicky Castillo PA-C Location:[facility] Appointment Type:Pain Management - Follow Up (FT) [facility]06-19-2023 Note [id number]:[id number] 04-03-2023 Evaluation + Plan noteExtracted from: Title:ANES Post-operative Note - General Author: Lb Wu Jr., DO Date:04/03/23 Plan Transfer/Discharge: Transfer/Discharge Discharge when meets criteria ( From PACU to Ambulatory Surgery Unit, and To home ). Extracted from: Title:ANES Pre-operative Note - Endo Author:Lb Melendez Jr., DO Date:04/03/23 Plan [place] [employer] (ASA) physical status classification: Class III. Anesthetic Preoperative Plan: Anesthesia General, and -TIVA. Future Appointments Appointment Date:04/07/2023 11:00:00 AM Scheduled Provider:Demar Trammell MD Location:.[facility] [place] Appointment Type:Pain Management - Follow Up (FT) Appointment Date:04/28/2023 09:00:00 AM Scheduled Provider:Vicky LAST CNP Location:.[facility]iology Clinic Appointment Type:Cardiology Follow Up (FT) [facility]06-16-2023 Hospital Discharge instructions Patient Education 04/03/2023 10:24:17 [...] unsweetened, w/added ascorbic acid 1 cup 0.5 [place] 1 cup 0.7 Vegetables Cooked Green beans 1 cup 4.0 Carrots 1/2 cup sliced 2.3 Peas 1 cup 8.8 Potato (baked, with skin) 1 medium potato 3.8 Raw [place] (with peel) 1 cucumber 1.5 Lettuce 1 [...] 8.7 Peanuts 1/2 cup 7.9 Chart from UpDa 2013. SEEK IMMEDIATE MEDICAL CARE IF: You [...] Reference. Available at http://www.nal.usda.gov/fnic/foodcomp/search/. Information adapted from: ExitCare Patient Information 2010 [employer]. UpToDate 2013 http://www.[employer]/contents/[email or web address]-tdttbxf-rwpync-the-basics 04/03/2023 10:24:14 Colonoscopy, Care After Surgery [place] (CUSTOM) Colonoscopy Care After Surgery Please read [...] reduce GERD symptoms. Medicines. These may include: ?Eqbp-dbo-konwhtb antacids. ?Medicines that make your stomach empty [...] may include: ?Fatty foods, like fried foods. ?Evergreen fruits, like oranges or lemon. ?Other foods [...] Do not drink alcohol. General instructions Take pmqb-fiz-zairzku and prescription medicines only as told by [...] provider. Document Revised: 08/19/2022 Document Reviewed: 09/05/2021 [facility] ([employer]) Patient Education 2022 [employer]. 04/03/2023 10:24:03 Endoscopy, Care After Procedure [facility] Endoscopy Care After Procedure Please read the instructions outlined below and refer to this sheet in the next few weeks. These discharge instructions provide you with general information on caring for yourself [facility]. Your doctor may also give you specific [...] Document Re-Released: 03/29/2007 ExitCare Patient Information 2009 [employer]. Follow Up Care 02/23/2023 10:35:27 With:Michael ALBRIGHT Address: [address] [place] [address], [address] [address]- Business (1) When:2 weeks [facility]05-30-2023 Note [id number]:127[facility] 02-23-2023 Evaluation + Plan noteExtracted from: Title:NPV [...] Appointments Appointment Date:04/03/2023 10:30:00 AM Scheduled Provider: Location:[facility] Appointment Type:Surgery FT Appointment Date:04/28/2023 09:00:00 AM Scheduled Provider:Vicky LAST CNP Location:.[facility] Clinic Appointment Type:Cardiology Follow Up (FT) [facility]05-05-2023 NoteChief Complaint consultation for abdominal pain HPI [...] malignant neoplasm of colon (more content not included)...[facility]:Result Comment: Electronically Signed By: JOSE RAMON CANTRELL, Michael Ward\Date and Time Signed: 02/20/23 16:32 [id number] Hospital Discharge instructions Follow Up Care 10/08/2021 14:10:47 With:Landon Douglas MD Address: [place] [phone] When: Unknown [facility] Future Appointments Appointment Date:11/05/2022 11:30:00 AM Scheduled Provider:Landon Douglas MD Location:[facility] Appointment Type:Cardiology Follow Up (FT) Future Scheduled Tests Laboratory* Lipid Panel 09/05/21 Radiology* Echo Transthoracic Complete 09/29/22 [facility] Future Appointments Appointment Date:11/05/2022 11:30:00 AM Scheduled Provider:Landon Douglas MD Location:[facility] Appointment Type:Cardiology Follow Up (FT) [facility] Future Appointments Appointment Date:02/23/2023 12:30:00 PM Scheduled Provider:Demar Trammell MD Location:[facility] Appointment Type:Pain Management - New (FT) Appointment Date:04/28/2023 09:00:00 AM Scheduled Provider:Vicky LAST CNP Location:[facility] Appointment Type:Cardiology Follow Up (FT) General Surgery [place] Evaluation + Plan note Future Appointments Appointment Date:04/03/2023 10:30:00 AM Scheduled Provider: Location:[facility] Appointment Type:Surgery FT Appointment Date:04/07/2023 11:00:00 AM Scheduled Provider:Demar Trammell MD Location:[facility] Appointment Type:Pain Management - Follow Up (FT) Appointment Date:04/28/2023 09:00:00 AM Scheduled Provider:Vicky LAST CNP Location:[facility] Appointment Type:Cardiology Follow Up (FT) [facility] Future Appointments Appointment Date:04/20/2023 02:15:00 PM Scheduled Provider:Demar Trammell MD Location:[facility] Appointment Type:Pain Management - Office Injection (FT) Appointment Date:04/28/2023 09:00:00 AM Scheduled Provider:Vicky LAST CNP Location:[facility] Appointment Type:Cardiology Follow Up (FT) Appointment Date:05/04/2023 09:00:00 AM Scheduled Provider:Vicky Castillo PA-C Location:[facility] [place] Appointment Type:Pain Management - Follow Up (FT) General Surgery [employer] Evaluation + Plan note Future Appointments Appointment Date:04/28/2023 09:00:00 AM Scheduled Provider:Vicky LAST CNP Location:[facility] Appointment Type:Cardiology Follow Up (FT) Appointment Date:05/04/2023 09:00:00 AM Scheduled Provider:Vicky Castillo PA-C Location:[facility] [place] Appointment Type:Pain Management - Follow Up (FT) [facility] Future Appointments Appointment Date:05/04/2023 09:00:00 AM Scheduled Provider:Vicky Castillo PA-C Location:[facility] Appointment Type:Pain Management - Follow Up (FT) [facility] Future Appointments Appointment Date:07/14/2023 09:30:00 AM Scheduled Provider:Vicky LAST CNP Location:[facility] Appointment Type:Cardiology Follow Up (FT) [facility] Future Appointments Appointment Date:11/17/2023 11:30:00 AM Scheduled Provider:Landon DOUGLAS MD Location:[facility] Appointment Type:Cardiology Follow Up (FT) Appointment Date:11/20/2023 01:15:00 PM Scheduled Provider:Vicky Castillo PA-C Location:[facility] [place] Appointment Type:Pain Management - Follow Up (FT) [facility] Future Appointments Appointment Date:11/20/2023 01:15:00 PM Scheduled Provider:Vicky Castillo PA-C Location:FT[facility] [place] Appointment Type:Pain Management - Follow Up (FT) Appointment Date:12/14/2023 10:45:00 AM Scheduled Provider:Barry Husain MD Location:FT.Pulmonary Clinic Appointment Type:Pulmonary New Patient (FT) Appointment Date:12/18/2023 01:45:00 PM Scheduled Provider:Vincent CANTRELL, Willie Tovar Location:.[facility] [place] Appointment Type:Cardiology Follow Up (FT) [facility]* Diagnosis Well woman exam with routine gynecological exam Routine gynecological examination Breast cancer screening by mammogram Other osteoporosis, unspecified pathological fracture presence (CMS/HCC) Restless legs Restless legs syndrome (RLS) Well woman exam Routine general medical examination at a health care facility documented in [facility] Narrative No data available for this section [facility] No data available for this section [facility] No data available for this section [facility] Summary Purpose Family History No Family History Records FoundNo Family History Records FoundNo Family History Records Found No data available for this section No data available for this section No data available for this section No data available for this section No data available for this section No data available for this section No data available for this section No Family History Records FoundNo Family History Records Found Advance Directives No Advanced Directives Records FoundNo Advanced Directives Records FoundNo Advanced Directives Records FoundNo Advanced Directives Records FoundNo Advanced Directives Records Found Additional Source Comments INFORMATION SOURCE (unrecogn ized section and content) DATE CREATED AUTHOR 04/15/2018 [facility] DATE CREATED AUTHOR AUTHOR'S ORGANIZ ATION 12/02/2021 [facility] DATE CREATED AUTHOR AUTHOR'S ORGANIZ ATION 03/04/2023 [facility] DATE CREATED AUTHOR AUTHOR'S ORGANIZ ATION 11/21/2023 [facility] DATE CREATED AUTHOR AUTHOR'S ORGANIZ ATION 11/26/2023 [facility] dical Specialists EPIC Care Team (unrecognized sect ion and content) Director Of Assisted Living Relationship Specialty Start Date End Date Yarelis Mcghee MD [address] [place] [id number] PCP - General Family Medicine 05/21/23 Reason for Visit (unrecogniz ed section and content) Reason Comments Well Women Visit FOR RECORDS PERTAINING TO PATIENTS WHO ARE [...] BE BASED ON THE PRIMARY CLINICAL RECORDS. [facility] provides no warranty or guarantee of the accuracy or completeness of information in this document.
--- NOTE | 2023-11-30 07:58 | MM_ITS ---
Patient Name: CHLOE AGARWAL MR#: [id number] : 1955 Exam Date: 11/30/2023 Ordering Doctor: JESSICA Yang . RADIOLOGY REPORT PROCEDURE: MM TOMOSYNTHESIS SCREENING BI COMPARISON: MG MAMM LAURA DIAG W CAD, 06/26/2021. MG MAMM SCREEN 3D LAURA CAD, 10/22/2022. INDICATIONS: Screening Calculator Name NCI Breast Cancer Risk Assessment Tool 5 Year Breast Cancer Risk Not Reported. Lifetime Breast Cancer Risk Not Reported. Personal Breast Cancer No Personal Ovarian Cancer No Treatments None Family Cancers None LOCATION: [facility] BREAST COMPOSITION: Scattered areas fibroglandular density. FINDINGS: DIAGNOSTIC CATEGORY 2--BENIGN FINDING. NO CHANGE FROM COMPARISON. Scattered benign-appearing nodules are present. Scattered benign-appearing calcifications are present. Scattered benign-appearing lymph nodes are present. RIGHT BREAST: No significant suspicious finding. LEFT BREAST: No significant suspicious finding. RECOMMENDATIONS: ROUTINE MAMMOGRAM AND CLINICAL EVALUATION IN 12 MONTHS. PLEASE NOTE: A NORMAL MAMMOGRAM DOES NOT EXCLUDE THE POSSIBILITY OF BREAST CANCER. A CLINICALLY SUSPICIOUS PALPABLE LUMP SHOULD BE BIOPSIED. Dictated by: Fernie Reed MD on 11/30/2023 at 09:10 Approved by: Fernie Reed MD on 11/30/2023 at 09:15
[2023-11-30 08:28] LABS: Alanine Aminotransferase 23 U/L (14-59); Albumin Level 3.6 g/dL (3.4-5.0); Alkaline Phosphatase 62 U/L (46-116); Anion Gap 12.6; Aspartate Amino Transferase 17 U/L (15-37); BUN Creatinine Ratio 31.3; Bilirubin Total 1.2 mg/dL (0.2-1.0); Calcium 9.1 mg/dL (8.5-10.1); Carbon Dioxide 30.4 mmol/L (21.0-32.0); Chloride 102 mmol/L (98-107); Cholesterol 177 mg/dL (<=200); Estimated GFR (African America >60 (>=60); Estimated GFR (Non-African Ame 56 (>=60); Globulin 3.6 g/dL; Glucose 110 mg/dL (74-106); HDL Cholesterol 59 mg/dL (40-60); LDL Cholesterol Calculated 96.8 mg/dL; Sodium 141 mmol/L (136-145); Thyroid Stimulating Hormone 0.028 uIU/mL (0.358-3.740); Total Protein 7.2 g/dL (6.4-8.2); Triglycerides 106 mg/dL (<=150); VLDL CHOLESTEROL 21.2 mg/dL
[2023-11-30 08:33] LABS: Basophils Absolute Auto 0.1 10^3/uL (0.0-0.1); Basophils Percent Auto 0.8 % (0.2-2.0); Eosinophils Absolute Auto 0.2 10^3/uL (0.0-0.7); Eosinophils Percent Auto 1.9 % (0.9-7.0); Hematocrit 40.2 % (36.0-48.0); Hemoglobin 12.9 g/dL (12.0-16.0); Immature Granulocytes Abs Auto 0.02 10^3/uL (0.00-0.03); Immature Granulocytes Pct Auto 0.2 % (0.0-0.5); Lymphocytes Absolute Auto 2.1 10^3/uL (1.2-3.8); Mean Corpuscular HGB Conc 32.1 g/dL (29.9-35.2); Mean Corpuscular Hemoglobin 29.3 pg (26.7-34.0); Mean Corpuscular Volume 91.4 fL (81.0-99.0); Mean Platelet Volume 10.7 fL (9.5-13.5); Monocytes Absolute Auto 0.6 10^3/uL (0.3-0.8); Monocytes Percent Auto 7.4 % (1.7-12.0); Neutrophils Absolute Auto 5.6 10^3/uL (1.4-6.5); Neutrophils Percent Auto 65.7 % (43.0-75.0); Platelet Count 311 10^3/uL (150-450); Red Cell Distribution Width 12.8 % (11.0-15.0); White Blood Count 8.5 10^3/uL (4.0-11.0)
[2023-11-30 09:06] LABS: Estimated Average Glucose 123 mg/dL; Glycohemoglobin A1C 5.9 % (4.5-6.2)
== END 2023-11-30 07:45 | disposition home or self-care (01) ==
LOC: LAB 07:44
PROVIDERS: PCP Family Medicine; Visit Provider Physician Assistant
DX: Z01.419 Encounter for gynecological examination (general) (routine) without abnormal findings (principal); Z12.31 Encounter for screening mammogram for malignant neoplasm of breast; E03.8 Other specified hypothyroidism; R53.83 Other fatigue
CPT/HCPCS: 36415; 77063; 77067; 80053; 80061; 83036; 84443; 85025

== ENCOUNTER 2023-12-02 08:48 | Outpatient (OUT) | payer MEDICARE, SELFPAY ==
--- OUTSIDE RECORDS SUMMARY | 2023-12-02 09:06 | XMS_ITS | CCD ---
Author Name Unknown Address [address] [place] [address] Organization [facility] Care Team Providers Care Glassware Maker Demonstrator Name Role Phone Adryan Yoon Unavailable Unavailable Adryan Yoon Unavailable Unavailable VICK MCGHEE Unavailable Unavailable Fernie Sandoval Unavailable Unavailable Vick Mcghee Primary Care Physician [phone] RANGEL Admitting Unavailabl e [...] Attending Unavailable FRANCO Castillo Admitting Unavailabl e Hoy, Vick Referring Unavailable Hoy, Vick Referring Unavailable Demar Trammell Attending Unavailable Demar rTammell Admitting Unavailable Hoy, Vick Referring Unavailable Demar Trammell Attending Unavailable MD Demar Trammell Admitting Unavailable Vick Mcghee Referring Unavailable Vicky Castillo Attending Unavailable FRANCO Castillo Admitting Unavailabl e MD Demar Trammell Admitting Unavailable Demar Trammell Attending Unavailable Vick Mcghee Referring Unavailable NONE, XXXX Referring Unavailable STANG, Vicky L Attending Unavailable STANG, Vicky L Admitting Unavailable NONE, XXXX Referring Unavailable Landon DOUGLAS Attending Unavailable Landon DOUGLAS Admitting Unavailable NILL, R Attending Unavailable NILL, R Attending Unavailable Vicky Castillo Attending Unavailable Vick Mcghee Referring Unavailable FRANCO Castillo Admitting Unavailabl [...] Avalos Attending Unavailable Landon DOUGLAS Referring Unavailable HusainBarry GRuba Attending Unavailable Husain Basem GRuba Admitting Unavailable Husain Basem G. Referring Unavailable HusainBarry leal GRuba Attending Unavailable Vicky Castillo Attending Unavailable Vick Mcghee Referring Unavailable FRANCO Castillo Admitting Unavailabl MD Demar Cooley Admitting Unavailable Demar Trammell Attending Unavailable Vick Mcghee Referring Unavailable ANTIONETTE YANG Attending Unavailable THIERRY VILLALOBOS Attending Unavailable Vick Mcghee MD Primary Care Provider [phone] Allergies Allergy Classification Reported Allergen(s) Allergy Type Date of Onset Reaction(s) Facility (1 source) Sulfonamide; Translations: [sulfonamide] Propensity to adverse reactions to drug (disorder) [facility] Repository (20 sources) Sulfonamides (Antibiotic); Translations: [sulfa drugs] Drug allergy unknown [facility] (20 sources) Lisinopril; Translations: [lisinopril] Drug Allergy Coughing - function (qualifier value) [facility] (1 source) Sulfonamides (Antibiotic) Drug allergy (disorder) [facility] Repository (14 sources) gabapentin; Translations: [gabapentin] Drug Allergy 3 Headache (finding), Headache [facility] (4 sources) Lisinopril Propensity to adverse reactions 3 [facility] (4 sources) Sulfonamides (Antibiotic) Drug Allergy 3 [facility] [...] BID, # 60 cap(s), Refills(s) 0, Pharmacy: [facility], 152, cm, 05/04/23 8:55:00 EDT, Height/Length Dosing, 72.6, kg, 05/04/23 8:55:00 EDT, Weight Dosing Start Date: 05/04/23 Status: Ordered hydroCHLOROthiazide 12.5 mg oral capsule (8 sources) Thiazide Diuretic Start: 11-17-2023 take 1 [...] Bedtime, # 90 tab(s), Refills(s) 1, Pharmacy: [facility], 152, cm, 07/14/23 9:26:00 EDT, Height/Length Dosing, 76.9, kg, 07/14/23 9:26:00 EDT, Weight Dosing Start Date: 07/14/23 Status: Ordered Start: 06-30-2023 End: 07-30-2023 take 1 tablet by mouth twice daily losartan 50 mg Tab 50 mg = 1 tab(s), Oral, BID, X 30 day(s), # 60 tab(s), Refills(s) 0, Pharmacy: [facility], 152, cm, 06/30/23 15:07:00 EDT, Height/Length Dosing, 77.5, kg, 06/30/23 15:07:00 EDT, Weight Dosing Start Date: 06/30/23 Stop Date: 07/30/23 Status: Ordered Start: 06-05-2023 End: 07-05-2023 take 1 tablet by mouth once daily losartan 50 mg Tab 50 mg = 1 tab(s), Oral, Daily, X 30 day(s), # 30 tab(s), Refills(s) 0, Pharmacy: [facility], 152.4, cm, 06/05/23 8:54:00 EDT, Height/Length Dosing, 73, kg, 06/05/23 8:54:00 EDT, Weight Dosing Start Date: 06/05/23 Stop Date: 07/05/23 Status: Ordered Start: 11-05-2022 End: 10-31-2023 take 1 tablet by mouth once daily Cozaar 25 mg Tab 25 mg = 1 tab(s), Oral, Daily, stopping Lisinopril Starting Cozaar, X 90 day(s), # 90 tab(s), Refills(s) 3, Pharmacy: [facility], 152, cm, 11/05/22 11:35:00 EST, Height/Length Dosing, 76, kg, 11/05/22 11:35:00 EST, Weight Dosing Start Date: 11/05/22 Stop Date: 10/31/23 Status: Ordered losartan (Cozaar ) 25 MG tablet Take 100 mg by mouth. 0 Active magnesium oxide 400 mg oral tablet (4 sources) Start: 11-25-2023 End: 06-22-2024 take 1 [...] day(s), # 21 tab(s), Refills(s) 0, Pharmacy: [facility], 152, cm, 09/22/23 11:39:00 EST, Height/Length [...] Daily, # 90 tab(s), Refills(s) 1, Pharmacy: [facility], 152, cm, 07/14/23 9:26:00 EDT, Height/Length Dosing, 76.9, kg, 07/14/23 9:26:00 EDT, Weight Dosing Start Date: 07/14/23 Status: Ordered Start: 11-14-2022 take 1 tablet by herberth th once daily metoprolol 25 mg ER Tab 25 mg = 1 tab(s), Oral, Daily, # 90 tab(s), Refills(s) 3, Pharmacy: [facility], 152, cm, 11/05/22 11:35:00 EST, Height/Length Dosing, 76, kg, 11/05/22 11:35:00 EST, Weight Dosing Start Date: 11/14/22 Status: Ordered Start: 10-08-2021 End: 10-03-2022 take 1 tablet by mouth once daily Toprol XL 25 mg Tab-ER 25 mg = 1 tab(s), Oral, Daily, X 90 day(s), # 90 tab(s), Refills(s) 3, Pharmacy: [facility], 152, cm, 10/08/21 13:49:00 EST, Height/Length [...] BID, # 120 tab(s), Refills(s) 0, Pharmacy: [facility], 152.4, cm, 04/01/21 7:20:00 EDT, Height/Length [...] BID, # 60 cap(s), Refills(s) 0, Pharmacy: [facility], 152, cm, 10/26/23 13:07:00 EST, Height/Length Dosing, 70.5, kg, 10/26/23 13:07:00 EST, Weight Dosing Start Date: 10/26/23 Status: Ordered rOPINIRole 0.5 mg oral tablet (14 sources) Nonergot Dopamine Agonist Start: 02-23-2023 ropinirole 0.5 mg, Oral, Refills(s) 0 Start Date: 09/22/23 Status: Ordered sucralfate 1000 mg oral tablet (20 sources) Aluminum Complex Start: 04-03-2023 take 1 tablet by mouth four times daily Carafate 1 gram Tab 1 gm = 1 tab(s), Oral, QID, # 120 tab(s), Refills(s) 3, Pharmacy: [facility], 152, cm, 04/03/23 9:20:00 EDT, Height/Length [...] pain] Onset: 3 Episodic Acquired foot deformities (4 sources) Hallux valgus AND bunion; Translations: [Hallux [...] Test Name Value Interpretation Reference Range Facility ALL LIPID PROFILE (FASTING)o n 11-30-2023 CHOL HDL RATIO 3.0 [facility] Comment on above: 3.3 - 4.4 LOW RISK 4.4 - 7.1 AVERAGE RISK 7.1 - 11.0 MODERATE RISK >11.0 HIGH RISK Cholesterol [Mass/Vol] 177 mg/dL NINF - 200 mg/dL [facility] Cholesterol in HDL [Mass/Vol] 59 mg/dL 40 - 60 mg/dL [facility] Comment on above: > or =60 mg/dl - LOW CARDIOVASCULAR RISK <40 mg/dl - HIGH CARDIOVASCULAR RISK Magnesium [Mass/Vol] 96.8 mg/dL [facility] Comment on above: <100 mg/dl OPTIMAL 100-129 mg/dl NEAR OR ABOVE OPTIMAL 130-159 mg/dl BORDERLINE HIGH 160-189 mg/dl HIGH >190 mg/dl VERY HIGH Magnesium [Mass/Vol] 21.2 mg/dL [facility] Triglyceride [Mass/Vol] 106 mg/dL NINF - 150 mg/dL [facility] ALL THYROID STIM HORMONEon 0 11-30-2023 TSH Qn 0.028 m[IU]/L Low [facility]CF CMP (CMP) (FOR REMOTE FH C USE)on 11-30-2023 Albumin [Mass/Vol] 3.6 g/dL 3.4 - 5.0 g/dL [facility] ALBUMIN GLOBULIN RATIO 1.0 NO [facility] ALP [Catalytic activity/Vol] 62 U/L 46 - 116 U/L [facility] ALT [Catalytic activity/Vol] 23 U/L 14 - 59 U/L [facility] Anion gap [Moles/Vol] 12.6 mmol/L NO [facility] AST [Catalytic activity/Vol] 17 U/L 15 - 37 U/L [facility] Bilirubin [Mass/Vol] 1.2 mg/dL High 0.2 - 1 .0 mg/dL [facility] Calcium [Mass/Vol] 9.1 mg/dL 8.5 - 10. 1 mg/dL [facility] Chloride [Moles/Vol] 102 mmol/L 98 - 10 7 mmol/L [facility] CO2 [Moles/Vol] 30.4 mmol/L 21.0 - 32.0 mmol/L [facility] Creatinine [Mass/Vol] 0.99 mg/dL 0.55 - 1.02 mg/dL [facility] GFR/1.73 sq M.predicted CKD-EPI (S/P/Bld) [Vol rate/Area] >60 60 - PINF [facility] Globulin (S) [Mass/Vol] 3.6 g/dL [facility] Glucose [Mass/Vol] 110 mg/dL High 74 - 106 mg/dL [facility] Potassium [Moles/Vol] 4.0 mmol/L 3.5 - 5.1 mmol/L [facility] Protein [Mass/Vol] 7.2 g/dL 6.4 - 8.2 g/dL [facility] Sodium [Moles/Vol] 141 mmol/L 136 - 145 mmol/L [facility] TBH EGFR-NON AF ALBANIAN 56 Low 60 - PINF [facility] Urea nitrogen [Mass/Vol] 31.0 mg/dL High 7.0 - 18.0 mg/dL [facility] Urea nitrogen/Creatinine [Mass ratio] 31.3 mg/mg [facility] IGP,APTIMA HPV,AGE GDLNon AGE GDLN ACOG TESTING Note . [facility] Comment on above: TESTS RESULT FLAG U NITS REF RANGE LAB Clinician Provided Cytology Information Source.............Cervix;Endocervix No. of containers..01 ThinPrep Vial Age Algo ACOG Adamaris... Note 01 <21 or >65 or no age provided FLAG LEGEND: L-Low Normal,H-High Normal,LL-Alert Low,HH-Alert High <-Panic Low,>-Panic High,A-Abnormal,AA-Critical Abnormal Performed at: 01 =G [facility] [address] Adelina Nunez MD, PAP IG (IMAGE GUIDED) Note . [facility] Comment on above: TESTS RESULT FLAG UN ITS REF RANGE LAB DIAGNOSIS: 02 NEGATIVE FOR INTRAEPITHELIAL LESION OR MALIGNANCY. Specimen adequacy: 02 Satisfactory for evaluation. Endocervical and/or squamous metaplastic cells (endocervical component) are present. Performed by: 02 Vicky Madsen Honeycomb Blanket Maker ([facility]) . 02 Note: Note 02 The Pap smear is a screening test designed to aid in the detection of premalignant and malignant conditions of the uterine cervix. It is not a diagnostic procedure and should not be used as the sole means of detecting cervical cancer. Both false-positive and false-negative reports do occur. Test Methodology: Note 02 [employer](R) Actuarial Intern was unable to read this specimen. Therefore a manual review was performed. FLAG LEGEND: L-Low Normal,H-High Normal,LL-Alert Low,HH-Alert High <-Panic Low,>-Panic High,A-Abnormal,AA-Critical Abnormal Performed at: [address] [address] Adelina Nunez MD, Performed at: = - [address] [id number] Storage Architect: Adelina Nunez MD, Phone: [phone] Performed at: [facility] [address] [id number] Storage Architect: Adelina Nunez MD, Phone: [phone] [facility] C[facility]IX [facility] No Panel Informationon 11-30 Interpretation and review of laboratory results Abnormal [facility] Consent for Treatmenton Consent for Treatment [id number]#1.00TIFF Normal [facility] Consultation Noteon 11-20-19 24 Consultation Note Patient: CHLEO AGARWAL Age: 68 years Sex: Female : 1955 Associated Diagnoses: None Author: Vicky Castillo PA-C Subjective Chief complaint 11/20/2023 13:11 EST low back pain . Patient is a 67-year-old female. She has a past medical history significant for lumbar neuritis, lumbar degenerative disc disease, and lumbar spondylolisthesis. Was more calm and this time around than last time. 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 so [...] QID, # 120 tab(s), Refills(s) 3, Pharmacy: [facility], 152, cm, 04/03/23 9:20:00 EDT, Height/Length Dosing, 80, kg, 04/03/23 9:20:00 EDT, Weight Dosing Protonix 40 mg Tab-DR: 40 mg = 1 tab(s), Oral, BID, # 120 tab(s), Refills(s) 0, Pharmacy: [facility], 152.4, cm, 04/01/21 7:20:00 EDT, Height/Length Dosing, 85.5, kg, 04/01/21 7:20:00 EDT, Weight Dosing hydrochlorothiazide 12.5 mg Cap: 12.5 mg = 1 cap(s), Oral, Daily, # 30 cap(s), Refills(s) 6, Pharmacy: [facility], 152, cm, 11/17/23 11:29:00 EST, Height/Length Dosing, 79.6, kg, 11/17/23 11:29:00 EST, Weight Dosing losartan 100 mg Tab: 100 mg = 1 tab(s), Oral, Bedtime, # 90 tab(s), Refills(s) 1, Pharmacy: [facility], 152, cm, 07/14/23 9:26:00 EDT, Height/Length Dosing, 76.9, kg, 07/14/23 9:26:00 EDT, Weight Dosing pregabalin 25 mg Cap: 25 mg = 1 cap(s), Oral, BID, start with once a day for 3-5 days. If doing well can go to BID, # 60 cap(s), Refills(s) 0, Pharmacy: [facility], 152, cm, 10/26/23 13:07:00 EST, Height/Length [...] All Problems Chronic GERD / SNOMED CT 374717790 / Confirmed Unilateral primary osteoarthritis, right knee / SNOMED CT 8565669586 / Confirmed Gastritis / SNOMED CT 2649612 / Confirmed Vertigo / SNOMED CT 7015136591 / Confirmed BMI 34.0-34.9,adult / SNOMED CT 129740394 / Confirmed Regurgitation of stomach contents / SNOMED CT 326528224 / Confirmed Osteoporosis / SNOMED CT 114804328 / Confirmed HTN (hypertension) / SNOMED CT 4236237356 / Confirmed Dysphagia / SNOMED CT 87994075 / Confirmed Epigastric pain / SNOMED CT 361882869 / Confirmed Chest pain due to GERD / SNOMED CT 71622068 / Confirmed Screening for malignant neoplasm of colon / SNOMED CT 001667457 / Confirmed H/O: osteoarthritis / SNOMED CT 064066590 / Confirmed Hiatal hernia with gastroesophageal reflux / SNOMED CT 3067226727 / Confirmed Duodenogastric bile reflux / SNOMED CT 06051497 / Confirmed Sigmoid diverticulosis / SNOMED CT 4292717586 / Confirmed Tendonitis / SNOMED CT 93355390 / Confirmed Resolved: GERD - Gastro-esophageal reflux disease / SNOMED CT 8137887382 Resolved: Appendicitis / SNOMED CT 609029127 Resolved: Cough / SNOMED CT 89475881 Resolved: Sinus drainage / SNOMED CT 578675101 Canceled: GERD with apnea / SNOMED CT 2997771366 Objective Vital Signs 11/20/2023 13:11 EST Peripheral [...] extremity streng (more content not included)... Normal [facility] Comment on above: Result Comment: Elec tronically Signed By: Vicky Castillo PA-C\.br\Date and Time Signed: 11/20/23 13:40 EST Office/Clinic Note-Physician on 11-20-2023 Office/Clinic Note-Physician [id number]#1.00TIFF Normal [facility] Patient Correspondenceon Patient Correspondence [id number]#1.00TIFF Normal [facility] Consent for Treatmenton 10-21 Consent for Treatment [id number]#1.00TIFF Normal [facility] Heart and Vascular Office/Cl inic Noteon 11-17-2023 Heart and Vascular Office/Clinic Note History of Present Illness Patient is a very pleasant 68-year-old hypertensive female, nondiabetic, non-smoker, referred to our office after she went to the emergency room on 09/02/2021 with abdominal pain radiating into her back. She reportedly had a stress test, echocardiogram and Holter monitor at [facility] prior to her ER visit on 09/02/2021. Troponins were negative x1, and she was assigned a heart score of 4 and discharged home. In addition the patient apparently had a syncopal episode several weeks prior to her presentation, but cannot recall whether she had any chest pain prior to her syncope.. Her echocardiogram done at [place] on 08/20/2021 which showed left ventricular systolic [...] took place at an outside facility at [place] on 09/03/2021 which was read as normal. [...] In addition she has a brother in [place] who apparently has coronary disease the specific [...] concerning lesion (more content not included)... Normal [facility] Comment on above: Result Comment: Elec tronically Signed By: MISAEL CANTRELL, Landon Ugalde.elmo\Date and Time Signed: 11/17/23 11:44 EST Physician Orderon 11-17-2023 Physician Order [id number]#1.00TIFF Normal [facility] XR Pelvis 1 or 2 Viewson XR [...] mGy = na DAP = na Normal [facility] XR Spine Lumbosacral 2 or 3 Viewson [...] SCOTTY Technologist: DANIELLE Technical Comments Radiation Dose: isis Tolentino in mGy = na DAP = na Normal [facility] Consent for Treatmenton Consent for Treatment [id number]#1.00TIFF Normal [facility] Consent for Treatment [id number]#1.00TIFF Normal [facility] Consultation Noteon 10-26-19 Consultation Note Patient: CHLOE AGARWAL Age: 68 [...] QID, # 120 tab(s), Refills(s) 3, Pharmacy: [facility], 152, cm, 04/03/23 9:20:00 EDT, Height/Length Dosing, 80, kg, 04/03/23 9:20:00 EDT, Weight Dosing Protonix 40 mg Tab-DR: 40 mg = 1 tab(s), Oral, BID, # 120 tab(s), Refills(s) 0, Pharmacy: [facility], 152.4, cm, 04/01/21 7:20:00 EDT, Height/Length Dosing, 85.5, kg, 04/01/21 7:20:00 EDT, Weight Dosing losartan 100 mg Tab: 100 mg = 1 tab(s), Oral, Bedtime, # 90 tab(s), Refills(s) 1, Pharmacy: [facility], 152, cm, 07/14/23 9:26:00 EDT, Height/Length Dosing, 76.9, kg, 07/14/23 9:26:00 EDT, Weight Dosing metoprolol 50 mg ER Tab: 50 mg = 1 tab(s), Oral, Daily, # 90 tab(s), Refills(s) 1, Pharmacy: [facility], 152, cm, 07/14/23 9:26:00 EDT, Height/Length Dosing, 76.9, kg, 07/14/23 9:26:00 EDT, Weight Dosing pregabalin 25 mg Cap: 25 mg = 1 cap(s), Oral, BID, start with once a day for 3-5 days. If doing well can go to BID, # 60 cap(s), Refills(s) 0, Pharmacy: [facility], 152, cm, 10/26/23 13:07:00 EST, Height/Length Dosing, 70.5, kg, 10/26/23 13:07:00 EST, Weigh... Documented Medications Documented Aleve: Refills(s) 0 Multi Vitamin+: Oral, Daily, Refill(s) 0 alendronate 70 mg Tab: TAKE 1 TABLET BY MOUTH 30 MINUTES BEFORE first food once a week, Prophylaxis ropinirole: 0.5 mg, Oral, Refills(s) 0 Problem list: All Problems Chronic GERD / SNOMED CT 991712646 / Confirmed Unilateral primary osteoarthritis, right knee / SNOMED CT 2231364050 / Confirmed Gastritis / SNOMED CT 9516425 / Confirmed Vertigo / SNOMED CT 7296059971 / Confirmed BMI 34.0-34.9,adult / SNOMED CT 349817589 / Confirmed Regurgitation of stomach contents / SNOMED CT 728199711 / Confirmed Osteoporosis / SNOMED CT 324535737 / Confirmed HTN (hypertension) / SNOMED CT 3194764072 / Confirmed Dysphagia / SNOMED CT 38577336 / Confirmed Epigastric pain / SNOMED CT 452981082 / Confirmed Chest pain due to GERD / SNOMED CT 14979181 / Confirmed Screening for malignant neoplasm of colon / SNOMED CT 831227891 / Confirmed H/O: osteoarthritis / SNOMED CT 080093877 / Confirmed Hiatal hernia with gastroesophageal reflux / SNOMED CT 2833300242 / Confirmed Duodenogastric bile reflux / SNOMED CT 67740771 / Confirmed Sigmoid diverticulosis / SNOMED CT 7582969302 / Confirmed Tendonitis / SNOMED CT 37453875 / Confirmed Resolved: GERD - Gastro-esophageal reflux disease / SNOMED CT 3917920430 Resolved: Appendicitis / SNOMED CT 226138875 Resolved: Cough / SNOMED CT 79813113 Resolved: Sinus drainage / SNOMED CT 359311955 Canceled: GERD with apnea / SNOMED CT 7555068105 Objective Vital Signs 10/26/2023 12:48 EST Peripheral Pulse Rate 66 bpm Respiratory Rate 20 br/min Systolic Blood Pressure 143 mmHg HI Diastolic Blood Pressure 88 mmHg Mean Arterial Pressure, Cuff 106 mmHg General: Alert and oriented, No acute distress. Overweight Eye: Normal conjunctiva. HENT: Normocephalic, Normal hearing. Cardiovascular: No edema. Musculoskeletal Nor (more content not included)... Normal [facility] Comment on above: Result Comment: Elec tronically Signed By: Anna GAMEZ, Vicky\.br\Date and Time Signed: 10/26/23 13:22 EST Legal Correspondence Officeo n 10-26-2023 Legal Correspondence Office [id number]#1.00TIFF Normal [facility] Office/Clinic Note-Physician on 10-26-2023 Office/Clinic Note-Physician [id number]#1.00TIFF Normal [facility] Patient Correspondenceon Patient Correspondence [id number]#1.00TIFF Normal [facility] Patient Correspondence [id number]#1.00TIFF Normal [facility] Patient Correspondence [id number]#1.00TIFF Normal [facility] Patient Correspondence [id number]#1.00TIFF Normal [facility] Patient History Officeon Patient History Office [id number]#1.00TIFF Normal [facility] Physician Orderon 10-26-2023 Physician Order [id number]#1.00TIFF [facility] Physician Order [id number]#1.00TIFF [facility] Consent for Procedure/Surger yon 10-07-2023 Consent for Procedure/Surgery [id number]#1.00TIFF Normal [facility] Consent for Treatmenton 09-19 Consent for Treatment [id number]#1.00TIFF Normal [facility] Discharge Instructionson Discharge Instructions [id number]#1.00TIFF Normal [facility] IntraOperative Documentson 1 12-08-2022 IntraOperative Documents [id number]#1.00TIFF Normal [facility] Main OR Intraoperative Recor don 10-07-2023 Main OR Intraoperative Record IntraOp Document Type FTPM Summary Primary Physician: Claudio Monroe DO Finalized Date/Time: 10/07/23 09:50:14 Pt. Name: CHLOE AGARWAL/Sex: 1955 Female Med Rec #: [id number] Physician: Claudio Monroe DO Financial #: [id number] Pt. Type: P Room/Bed: / Admit/Disch: 10/07/23 08:38:44 - Institution: Case Times FTPM Entry 1 Patient Times In Room 10/07/23 09:41:00 Out Room 10/07/23 09:50:00 Procedure Times Start 10/07/23 09:44:00 Stop 10/07/23 09:49:00 Anesthesia Times Last Modified By: Bhargav DUMONT, Lashanda Mckinley 10/07/23 09:49:58 Case Attendance FTPM Entry 1 Entry 2 Entry 3 Case Attendee Claudio Monroe DO, RN, Lashanda Erickson RN, [place] Alisha Role Performed Surgeon - Primary Surveillance Analyst - Primary Scrub - Primary Time In 10/07/23 09:41:00 10/07/23 09:41:00 10/07/23 09:41:00 Time Out 10/07/23 09:50:00 10/07/23 09:50:00 10/07/23 09:50:00 Procedure TRANSFORAMINAL EPIDURAL TRANSFORAMINAL EPIDURAL TRANSFORAMINAL EPIDURAL STEROID INJECTIO(Right) STEROID INJECTIO(Right) STEROID INJECTIO(Right) Comments Last Modified By: Lahsanda Durant RN, RN, Lashanda Elizalde RN 10/07/23 09:49:59 10/07/23 09:49:59 10/07/23 09:49:59 Entry 4 Case Attendee Faustino Dorado Role Performed Wooden Frame Builder Time In 10/07/23 09:41:00 Time Out 10/07/23 [...] and tissue Entry 1 Skin Integrity Intact, [place], Warm, and Skin Abnormality No Dry Outcomes [...] Press Point (more content not included)... Normal [facility] Main OR Preoperative Recordo n 10-07-2023 Main OR Preoperative Record Holding Area Document Type FTPM Summary Primary Physician: Claudio Monroe DO Finalized Date/Time: 10/07/23 09:09:26 Pt. Name: CHLOE AGARWAL/Sex: 1955 Female Med Rec #: [id number] Physician: Claudio Monroe DO Financial #: [id number] Pt. Type: P Room/Bed: / Admit/Disch: 10/07/23 [...] Signed By: Shea Aguirre RN 10/07/23 09:09 [facility] Patient Correspondenceon Patient Correspondence [id number]#1.00TIFF [facility] Consent for Treatmenton Consent for Treatment [id number]#1.00TIFF [facility] Consultation Noteon 09-22-20 Consultation Note [...] QID, # 120 tab(s), Refills(s) 3, Pharmacy: [facility], 152, cm, 04/03/23 9:20:00 EDT, Height/Length Dosing, 80, kg, 04/03/23 9:20:00 EDT, Weight Dosing Medrol 4 mg Tab: = 1 packet(s), Oral, As Directed, as directed on package labeling, X 6 day(s), # 21 tab(s), Refills(s) 0, Pharmacy: [facility], 152, cm, 09/22/23 11:39:00 EST, Height/Length Dosing, 70.5, kg, 09/22/23 11:39:00 EST, Weight Dosing Protonix 40 mg Tab-DR: 40 mg = 1 tab(s), Oral, BID, # 120 tab(s), Refills(s) 0, Pharmacy: [facility], 152.4, cm, 04/01/21 7:20:00 EDT, Height/Length Dosing, 85.5, kg, 04/01/21 7:20:00 EDT, Weight Dosing losartan 100 mg Tab: 100 mg = 1 tab(s), Oral, Bedtime, # 90 tab(s), Refills(s) 1, Pharmacy: [facility], 152, cm, 07/14/23 9:26:00 EDT, Height/Length Dosing, 76.9, kg, 07/14/23 9:26:00 EDT, Weight Dosing metoprolol 50 mg ER Tab: 50 mg = 1 tab(s), Oral, Daily, # 90 tab(s), Refills(s) 1, Pharmacy: [facility], 152, cm, 07/14/23 9:26:00 EDT, Height/Length Dosing, 76.9, kg, 07/14/23 9:26:00 EDT, Weight Dosing Documented Medications Documented Aleve: Refills(s) 0 Multi Vitamin+: Refill(s) 0 alendronate 70 mg Tab: TAKE 1 TABLET BY MOUTH 30 MINUTES BEFORE first food once a week, Prophylaxis ropinirole: 0.5 mg, Oral, Refills(s) 0 Problem list: All Problems BMI 34.0-34.9,adult / SNOMED CT 166159445 / Confirmed Chest pain due to GERD / SNOMED CT 60403051 / Confirmed Chronic GERD / SNOMED CT 432451798 / Confirmed Duodenogastric bile reflux / SNOMED CT 02899339 / Confirmed Dysphagia / SNOMED CT 24069811 / Confirmed Epigastric pain / SNOMED CT 733448906 / Confirmed Gastritis / SNOMED CT 9929084 / Confirmed H/O: osteoarthritis / SNOMED CT 069661394 / Confirmed Hiatal hernia with gastroesophageal reflux / SNOMED CT 9360907752 / Confirmed HTN (hypertension) / SNOMED CT 0507419875 / Confirmed Osteoporosis / SNOMED CT 813920717 / Confirmed Regurgitation of stomach contents / SNOMED CT 545488217 / Confirmed Screening for malignant neoplasm of colon / SNOMED CT 197472873 / Confirmed Sigmoid diverticulosis / SNOMED CT 5245865201 / Confirmed Tendonitis / SNOMED CT 44745344 / Confirmed Unilateral primary osteoarthritis, right knee / SNOMED CT 4353031693 / Confirmed Vertigo / SNOMED CT 9740528579 / Confirmed Objective Vital Signs 09/22/2023 11:23 [...] after she (more content not included)... Normal [facility] Comment on above: Result Comment: Elec tronically Signed By: Valeri CANTRELL, Demar Leal\.br\Date and Time Signed: 09/22/23 11:54 EST Office/Clinic Note-Physician on 09-22-2023 Office/Clinic Note-Physician [id number]#1.00TIFF Normal [facility] Patient Correspondenceon Patient Correspondence [id number]#1.00TIFF Normal [facility] Patient Correspondence [id number]#1.00TIFF Normal [facility] Patient History Officeon Patient History Office [id number]#1.00TIFF Normal [facility] Physician Orderon 07-28-2023 Physician Order [id number]#1.00TIFF [facility] Consenton 07-24-2023 Consent [id number]#1.00TIFF [facility] Patient Eval Forms Officeon 07-24-2023 Patient Eval Forms Office [id number]#1.00TIFF Normal [facility] Patient Eval Forms Office [id number]#1.00TIFF [facility] Consent for Treatmenton Consent for Treatment [id number]#1.00TIFF [facility] Physician Orderon 07-16-2023 Physician Order [id number]#1.00CD:1 27 [facility] Heart and Vascular Office/Cl inic [...] Bedtime, # 90 tab(s), Refills(s) 1, Pharmacy: [facility], 152, cm, 07/14/23 9:26:00 EDT, Height/Length Dosing, 76.9, kg, 07/14/23 9:26:00 EDT, Weight Dosing metoprolol, 25 mg = 1 tab(s), Oral, Daily, # 90 tab(s), Refills(s) 3, Pharmacy: [facility], 152, cm, 11/05/22 11:35:00 EST, Height/Length Dosing, 76, kg, 11/05/22 11:35:00 EST, Weight Dosing metoprolol, 50 mg = 1 tab(s), Oral, Daily, X 30 day(s), # 30 tab(s), Refills(s) 5, Pharmacy: [facility], 152, cm, 06/30/23 15:07:00 EDT, Height/Length Dosing, 77.5, kg, 06/30/23 15:07:00 EDT, Weight Dosing metoprolol, 50 mg = 1 tab(s), Oral, Daily, # 90 tab(s), Refills(s) 1, Pharmacy: [facility], 152, cm, 07/14/23 9:26:00 EDT, Height/Length Dosing, 76.9, kg, 07/14/23 9:26:00 EDT, Weight Dosing Portions of this record may have been created with voice recognition artificial intelligence software, specifically [employer], [employer] and or [employer]. Substitutions may have occurred due to the [...] Esophagogastroduodenoscop y (04/01/2021), (more content not included)... Normal [facility] Comment on above: Result Comment: Elec tronically Signed By: Vicky LAST CNP\.elmo\Date and Time Signed: 07/15/23 12:36 EDT Physician Orderon 07-15-2023 Physician Order [id number]#1.00CD:1 27 [facility] Consent for Treatmenton 06-20 Consent for Treatment [id number]#1.00CD:12 7 [facility] Physician Orderon 07-14-2023 Physician Order [id number]#1.00CD:1 27 [facility] Consent for Treatmenton 06-19 Consent for Treatment [id number]#1.00CD:12 7 [facility] Heart and Vascular Office/Cl inic Noteon 06-30-2023 Heart and Vascular Office/Clinic Note History of Present Illness Patient is a very pleasant 67-year-old hypertensive female, nondiabetic, non-smoker, referred to our office after she went to the emergency room on 09/02/2021 with abdominal pain radiating into her back. She reportedly had a stress test, echocardiogram and Holter monitor at [facility] prior to her ER visit on 09/02/2021. Troponins were negative x1, and she was assigned a heart score of 4 and discharged home. In addition the patient apparently had a syncopal episode several weeks prior to her presentation, but cannot recall whether she had any chest pain prior to her syncope.. Her echocardiogram done at [place] on 08/20/2021 which showed left ventricular systolic [...] took place at an outside facility at [place] on 09/03/2021 which was read as normal. [...] In addition she has a brother in [place] who apparently has coronary disease the specific [...] List/Past Medical Hi (more content not included)... [facility] Comment on above: Result Comment: Elec tronically Signed By: MISAEL CANTRELL, Landon Mckinley\.elmo\Date and Time Signed: 06/30/23 15:29 EDT Physician Orderon 06-30-2023 Physician Order [id number]#1.00CD:12 7 [facility] Outside Records Officeon Outside Records Office [id number]#1.00CD:1 27 [facility] Consent for Treatmenton 05-20 Consent for Treatment [id number]#1.00CD:12 7 [facility] Consultation Noteon 06-08-20 Consultation Note [...] QID, # 120 tab(s), Refills(s) 3, Pharmacy: [facility], 152, cm, 04/03/23 9:20:00 EDT, Height/Length Dosing, 80, kg, 04/03/23 9:20:00 EDT, Weight Dosing Protonix 40 mg Tab-DR: 40 mg = 1 tab(s), Oral, BID, # 120 tab(s), Refills(s) 0, Pharmacy: [facility], 152.4, cm, 04/01/21 7:20:00 EDT, Height/Length Dosing, 85.5, kg, 04/01/21 7:20:00 EDT, Weight Dosing gabapentin 300 mg Cap: 300 mg = 1 cap(s), Oral, BID, start with once a day for a week. If doing ok can increase to BID, # 60 cap(s), Refills(s) 0, Pharmacy: [facility], 152, cm, 05/04/23 8:55:00 EDT, Height/Length Dosing, 72.6, kg, 05/04/23 8:55:00 EDT, Pacog... losartan 50 mg Tab: 50 mg = 1 tab(s), Oral, Daily, X 30 day(s), # 30 tab(s), Refills(s) 0, Pharmacy: [facility], 152.4, cm, 06/05/23 8:54:00 EDT, Height/Length Dosing, 73, kg, 06/05/23 8:54:00 EDT, Weight Dosing metoprolol 25 mg ER Tab: 25 mg = 1 tab(s), Oral, Daily, # 90 tab(s), Refills(s) 3, Pharmacy: [facility], 152, cm, 11/05/22 11:35:00 EST, Height/Length Dosing, 76, kg, 11/05/22 11:35:00 EST, Weight Dosing Documented Medications Documented alendronate 70 mg Tab: TAKE 1 TABLET BY MOUTH 30 MINUTES BEFORE first food once a week, Prophylaxis Problem list: All Problems Chronic GERD / SNOMED CT 331540576 / Confirmed Unilateral primary osteoarthritis, right knee / SNOMED CT 6543444728 / Confirmed Gastritis / SNOMED CT 0911764 / Confirmed Vertigo / SNOMED CT 6674482018 / Confirmed BMI 34.0-34.9,adult / SNOMED CT 441074095 / Confirmed Regurgitation of stomach contents / SNOMED CT 105013932 / Confirmed Osteoporosis / SNOMED CT 167405426 / Confirmed HTN (hypertension) / SNOMED CT 4546153547 / Confirmed Dysphagia / SNOMED CT 15949530 / Confirmed Epigastric pain / SNOMED CT 355844469 / Confirmed Chest pain due to GERD / SNOMED CT 95304756 / Confirmed Screening for malignant neoplasm of colon / SNOMED CT 264411015 / Confirmed H/O: osteoarthritis / SNOMED CT 360308335 / Confirmed Hiatal hernia with gastroesophageal reflux / SNOMED CT 0389533612 / Confirmed Duodenogastric bile reflux / SNOMED CT 11217728 / Confirmed Sigmoid diverticulosis / SNOMED CT 2469361369 / Confirmed Resolved: GERD - Gastro-esophageal reflux disease / SNOMED CT 5598846486 Resolved: Appendicitis / SNOMED CT 687208778 Resolved: Cough / SNOMED CT 13744017 Resolved: Sinus drainage / SNOMED CT 769280251 Canceled: GERD with apnea / SNOMED CT 4413428431 Objective Vital Signs 06/08/2023 8:21 EDT Peripheral Pulse Rate 62 bpm Respiratory Rate 16 br/min Systolic Blood Pressure 156 mmHg HI Diastolic Blood Pressure 94 mmHg HI Mean Arterial Pressure, Cuff In Error mmHg (In Error) General: Alert and oriented, No acute distress. Overweight Eye: Normal conjunctiva. HENT: Normocephalic, Normal hea (more content not included)... [facility] Comment on above: Result Comment: Elec tronically Signed By: Vicky Castillo PA-C\.br\Date and Time Signed: 06/08/23 09:02 EDT\.br\Electronically Co-Signed By: Valeri CANTRELL, Demar Leal\.br\Date and Time Co-Signed: 06/23/23 07:26 EDT Office/Clinic Note-Physician on 06-08-2023 Office/Clinic Note-Physician [id number]#1.00CD:12 7 Normal [facility] Patient Correspondenceon Patient Correspondence [id number]#1.00CD:12 7 Normal [facility] Patient Correspondence [id number]#1.00CD:12 7 Normal [facility] Patient History Officeon Patient History Office [id number]#1.00CD:12 7 Normal [facility] Auto Diffon 06-05-2023 Basophils/100 WBC (Bld) 0.8 % Normal 0.0-2.0 [facility] Comment on above: Order Comment: Order Added by Discern Expert. Performed By: #### 2 538310, 92782045, 6002920, 60643849, 3782097 ####[address] [place] [address] Basophils/Leukocytes Auto (Bld) [Pure # fraction] 0.1 E9/L Normal 0.0-0.2 [facility] Comment on above: Order Comment: Order Added by Discern Expert. Performed By: #### 2 836808, 87072381, 9317883, 56805740, 9498113 ####[address] [place] [address] Eosinophils/100 WBC (Bld) 3.4 % Normal 0.0-8.0 [facility] Comment on above: Order Comment: Order Added by Discern Expert. Performed By: #### 2 699550, 34739571, 8709750, 87121063, 3263761 ####[facility] [address] [place] [address] Eosinophils/Leukocytes Auto (Bld) [Pure # fraction] 0.3 E9/L Normal 0.0-0.5 [facility] Comment on above: Order Comment: Order Added by Discern Expert. Performed By: #### 2 185699, 18443125, 4078234, 81654901, 7830758 ####[address] [address] Lymphocytes/100 WBC (Bld) 20.2 % Normal 14.0-50.0 [facility] Comment on above: Order Comment: Order Added by Discern Expert. Performed By: #### 2 065492, 87975103, 2329670, 78648720, 3065897 ####[facility] [address] [place] [address] Lymphocytes/Leukocytes Auto (Bld) [Pure # fraction] 1.5 E9/L Normal 1.0-4.0 [facility] Comment on above: Order Comment: Order Added by Discern Expert. Performed By: #### 2 196208, 98338661, 7346330, 45760237, 1327590 ####[address] [place] [address] Monocytes/100 WBC (Bld) 7.8 % Normal 4.0-14.0 [facility] Comment on above: Order Comment: Order Added by Discern Expert. Performed By: #### 2 031681, 47555544, 8150305, 20882383, 6619356 ####[address] [place] [address] Monocytes/Leukocytes Auto (Bld) [Pure # fraction] 0.6 E9/L Normal 0.2-1.0 [facility] Comment on above: Order Comment: Order Added by Discern Expert. Performed By: #### 2 969401, 79242326, 9940890, 22312511, 6618778 ####[address] [address] Neutrophils/100 WBC (Bld) 67.8 % Normal 36.0-75.0 [facility] Comment on above: Order Comment: Order Added by Discern Expert. Performed By: #### 2 154852, 36947054, 4046487, 51650185, 8999027 ####[facility] [address] [place] [address] Neutrophils/Leukocytes Auto (Bld) [Pure # fraction] 5.1 E9/L Normal 2.0-7.5 [facility] Comment on above: Order Comment: Order Added by Discern Expert. Performed By: #### 2 551817, 05249665, 6211722, 66428736, 9426604 ####[facility] [address] [place] [address] BMPon 06-05-2023 Creatinine [Mass/Vol] 0.7 mg/dL Normal 0.5-1.3 [facility] Comment on above: Performed By: #### 2 115403, 60616573, 4229415, 18802136, 6167023 ####[facility] [address] [place] [address] Urea nitrogen [Mass/Vol] 19 mg/dL Normal 5-21 [facility] Comment on above: Performed By: #### 2 341232, 50081846, 1113282, 95003986, 8978960 ####[facility] [address] [place] [address] Urea nitrogen/Creatinine [Mass ratio] 27 No Units High 10-20 [facility] Comment on above: Performed By: #### 2 367119, 19984079, 9075207, 09986069, 7192994 ####[facility] [address] [place] [address] Anion gap [Moles/Vol] 12 mmol/L Normal 6-16 [facility] Comment on above: Performed By: #### 2 100645, 43572702, 5722879, 76640923, 9990184 ####[facility] [address] [place] [address] Calcium [Mass/Vol] 9.5 mg/dL Normal 8.9-11.1 [facility] Comment on above: Performed By: #### 2 457856, 29491756, 2437034, 99495591, 2724138 ####[facility] [address] [place] [address] Chloride [Moles/Vol] 107 mmol/L Normal 101-111 [facility] Comment on above: Performed By: #### 2 135627, 26717319, 7074899, 15295900, 5619034 ####[facility] [address] [place] [address] CO2 [Moles/Vol] 26 mmol/L Normal 21-31 [facility] Comment on above: Performed By: #### 2 164562, 35964216, 1278366, 11959059, 9373395 ####[facility] [address] [place] [address] Glucose [Mass/Vol] 100 mg/dL Normal 55-199 [facility] Comment on above: Result Comment: If t his glucose result represents a fasting glucose, interpretation should refer to the following reference range: 55-99 mg/dL Performed By: #### 2 225135, 22193606, 6442741, 05162472, 3002449 ####[facility] [address] [place] [address] Potassium [Moles/Vol] 3.6 mmol/L Normal 3.5-5.3 [facility] Comment on above: Performed By: #### 2 168093, 36574069, 1698140, 65214213, 1337763 ####[facility] [address] [place] [address] Sodium [Moles/Vol] 141 mmol/L Normal 135-145 [facility] Comment on above: Performed By: #### 2 817447, 84371529, 8394347, 88231314, 5077402 ####[facility] [address] [place] [address] CBC w/ Auto Diffon 3 Erythrocyte distribution width (RBC) [Ratio] 13.2 % Normal 10.9-14.2 [facility] Comment on above: Performed By: #### 2 927905, 86623634, 2361439, 76124433, 4861072 ####[facility] [address] [place] [address] Hematocrit (Bld) [Volume fraction] 39.7 % Normal 34.0-46.0 [facility] Comment on above: Performed By: #### 2 449352, 44532234, 6114503, 27860937, 8602896 ####[address] [address] Hemoglobin (Bld) [Mass/Vol] 13.6 g/dL Normal 12.0-16.0 [facility] Comment on above: Performed By: #### 2 215247, 92228984, 3479511, 34358344, 7266495 ####[address] [address] MCH (RBC) [Entitic mass] 29.9 pg Normal 27.0-34.0 [facility] Comment on above: Performed By: #### 2 062180, 38525495, 0442085, 01940218, 4267382 ####[address] [address] MCHC (RBC) [Mass/Vol] 34.2 g/dL Normal 31.4-36.0 [facility] Comment on above: Performed By: #### 2 635791, 95334350, 1193613, 94005275, 1886732 ####[address] [address] MCV (RBC) [Entitic vol] 87.5 fL Normal 80.0-100.0 F [facility] Comment on above: Performed By: #### 2 134225, 74624353, 2556672, 35194102, 5148626 ####[address] [address] Platelet mean volume (Bld) [Entitic vol] 8.2 fL Normal 6.4-10.8 [facility] Comment on above: Performed By: #### 2 800065, 58331931, 3385252, 21784541, 2674501 ####[address] [address] Platelets (Bld) [#/Vol] 239.0 E9/L Normal 150. 0-500. 0 [facility] Comment on above: Performed By: #### 2 850664, 95071172, 9486517, 87662689, 3895096 ####[facility] [address] [place] [address] RBC (Bld) [#/Vol] 4.5 E12/L Normal 4.3-5.9 [facility] Comment on above: Performed By: #### 2 715015, 28222016, 1257108, 17487655, 7804668 ####[facility] [address] [place] [address] WBC corrected for nucl RBC Auto (Bld) [#/Vol] 7.5 E9/L Normal 4.0-11.0 [facility] Comment on above: Performed By: #### 2 810109, 79595488, 3790279, 23244563, 6745128 ####[facility] [address] [place] [address] CHEMISTRYOrdered By: SYSTEM SYSTEM on 06-05-2023 Anion gap [Moles/Vol] 12 mmol/L Normal 6 - 16 mEq/L [facility] Calcium [Mass/Vol] 9.5 mg/dL Normal 8.9 - 11. 1 mg/dL [facility] Chloride [Moles/Vol] 107 mmol/L Normal 101 - 1 11 mmol/L [facility] CO2 [Moles/Vol] 26 mmol/L Normal 21 - 31 mmol/L [facility] Creatinine [Mass/Vol] 0.7 mg/dL Normal 0.5 - 1.3 mg/dL [facility] Remisol GFR/1.73 sq M.predicted among non-blacks MDRD (S/P/Bld) [Vol rate/Area] 96 mL/min/1.73 m2 Normal >=59mL/min /1.73 m2 [facility] Chem S Glucose [Mass/Vol] 100 mg/dL Normal 55 - 199 mg/dL [facility] Potassium [Moles/Vol] 3.6 mmol/L Normal 3.5 - 5.3 mmol/L [facility] Sodium [Moles/Vol] 141 mmol/L Normal 135 - 145 mmol/L [facility] Troponin I.cardiac [Mass/Vol] 8.30 pg/mL Low 10.10 - 27.10 pg/mL [facility] Remisol Urea nitrogen [Mass/Vol] 19 mg/dL Normal 5 - 21 mg/dL [facility] Remisol Urea nitrogen/Creatinine [Mass ratio] 27 mg/mg High 10 - 20 [facility] Remisol CHEMISTRYOrdered By: Heavenly ROP User on 06-05-2023 Glucose [Mass/Vol] 109 mg/dL High 55 - 99 mg/dL [facility] POC Subsection Comment on above: Result Comment: Kacey wiley Meter POC Device SN [id number] Invalid Interpretation Code [facility] POC Subsection POC User ID [id number] Invalid Interpretation Code [facility] POC Subsection POC Username SHARITA VARGAS Invalid Interpretation Code [facility] POC Subsection CT Head [...] MD Transcribed by: SCOTTY Technologist: TIFFANY Normal [facility] Capillary Glucose POCon 05-19 Glucose [Mass/Vol] 109 mg/dL High 55-99 [facility] Comment on above: Result Comment: Kacey wiley Meter Performed By: #### 2 [id number] #### [facility] [address] [place] [address] Consent for Treatmenton 05-19 Consent for Treatment [id number]#1.00CD:12 7 Normal [facility] Discharge Instructionson Discharge Instructions [id number]#1.00CD:1 27 Normal [facility] ED Clinical Summaryon 2022 ED Clinical Summary (Inserted Image. Kandace ble to display) [address] [address] ED Clinical Summary Person Information Name: CHLOE AGARWAL Amie/[place]ilio Age: 67 Years : 1955 Sex: Female Language: Estonian PCP: Vick Mcghee MD Marital Status: Visit Id: Visit Reason: Medical screening exam; SENT FROM [place] [facility] HIGH BP AND DIZZINESS Speciality: Acuity: [...] 10:47:06 06/05/2023 10:47:06 ADDRESS: [place] [phone] PHYS DOC NOTES: MEDICAL INFORMATION: Prescriptions Given: Medications to Continue Taking That Have Changed [facility], [address] [place] [id number], [phone] START: losartan (losartan 50 mg Tab) 1 [...] INFORMATION: Instructions: Follow up: With: Address: When: Vick Mcghee [facility] [facility], [place] [address] Business (1) In 3 days DIAGNOSIS: Dizziness; Hypertension Normal [facility] ED Note-Physicianon 06-05-20 ED Note-Physician Basic Information [...] she spoke to the office of her room attendant was sent to the emergency department. She [...] day(s), # 30 tab(s), Refills(s) 0, Pharmacy: [facility], 152.4, cm, 06/05/23 8:54:00 EDT, Height/Length [...] Oral, Daily Follow-up With When Contact Information Vick Mcghee In 3 days [address] [facility] [place] [address]- Business (1) Additional Instructions: Problem List/Past Medical History Ongoing BMI 34.0-34.9,adult Chest pain due to GERD Chronic GERD Duodenogastric bile reflux Dysphagia Epigastric pain Gastritis H/O: osteoarthritis Hiatal hernia with gastroesophageal reflux HTN (hypertension) Osteoporosis Regurgitation of stomach contents Screening for malignant ne (more content not included)... Normal [facility] Comment on above: Result Comment: Elec tronically Signed By: Prasad Avalos DO\.br\Date and Time Signed: 06/05/23 10:42 EDT ED Patient Education Noteon 06-05-2023 ED Patient Education Note Normal [facility] ED Patient Summaryon 023 ED Patient Summary (Inserted Image. Kandace ble to display) [address] [address] Patient Discharge Instructions Person Information Name: ANY CHLOE Arlen Age: 67 Years Arrival Date: 06/05/2023 08:39:11 Discharge Diagnosis: Dizziness; Hypertension Primary Care Physician: Vick Mcghee MD Provider Information Primary Provider: Prasad Avalos DO [employer] Specialist:None The exam and treatment you received in the Emergency Department were for an urgent problem and are not intended as complete care. It is important that you follow up with a doctor, nurse practitioner, or physician?s assistant professor surgical technology for ongoing care. If your symptoms become worse or you do not improve as expected and you are unable to reach your usual health care provider, you should return to the Emergency Department. We are available 24 hours a day. CHLOE AGARWAL has been given the following list of patient education materials, prescriptions and follow-up instructions: Follow-up Instructions: With: Address: When: Vick [address] [facility] [place] [address] Business (1) In 3 days In the event that this physician does not participate in your insurance network, please consult with your insurance company to find a nearby participating provider. Patient Education Materials: A MESSAGE TO ALL PATIENTS REGARDING OPIOIDS PRESCRIPTION OPIOIDS: WHAT YOU NEED TO KNOW Prescription opioids can be used to help relieve yidgpdzd-lw-bfmnnb pain and are often prescribed following a [...] be struggling with addiction, tell your health tire care manager and ask for guidance or call [facility]?S National Helpline at 8-925-546-QFFD. x Source: [place] Department of Health and Human Service (more content not included)... Normal [facility] HEMATOLOGYOrdered By: SYSTEM SYSTEM on 06-05-2023 Basophils/100 [...] 39.7 % Normal 34.0 - 46.0 % [facility] HemeAutoSS Hemoglobin (Bld) [Mass/Vol] 13.6 g/dL Normal 12.0 - 16.0 gm/dL FT HemeAutoSS MCH (RBC) [Entitic mass] 29.9 pg Normal 27. 0 - 34.0 pg [facility] HemeAutoSS MCHC (RBC) [Mass/Vol] 34.2 g/dL Normal 31.4 - 36.0 gm/dL FT HemeAutoSS MCV (RBC) [Entitic vol] 87.5 fL Normal 80.0 - 100.0 fL FT HemeAutoSS Platelet mean volume (Bld) [Entitic vol] 8.2 fL Normal 6.4 - 10.8 fL [facility] HemeAutoSS Platelets (Bld) [#/Vol] 239.0 E9/L Normal 150. 0 - 500.0 E9/L [facility] HemeAutoSS RBC (Bld) [#/Vol] 4.5 E12/L Normal 4.3 - 5.9 E12/L [facility] HemeAutoSS WBC corrected for nucl RBC Auto (Bld) [#/Vol] 7.5 E9/L Normal 4.0 - 11.0 E9/L [facility] HemeAutoSS Monitor Recordon 06-05-2023 Monitor Record [id number]#1.00CD:1 27 Normal [facility] Troponin 0 Hr.on 06-05-2023 Troponin I.cardiac [Mass/Vol] 8.30 pg/mL Low 10.10-27.1 0 [facility] Comment on above: Result Comment: The 95% CI (Confidence Interval) PPV (Positive Predictive Value) for myocardial infarction in females is 38 pg/mL, in males 51 pg/mL. The results should be used in conjunction with clinical conditions of myocardial infarction. (Access High Sensitivity Troponin I Instructions For Use, Demetra [place], May 2018) Performed By: #### 2 [id number], [id number] ####[facility] [address] [place] [address] XR Chest Single Viewon 06-05 XR Chest [...] mGy = na DAP = na Normal [facility] eGFRon 06-05-2023 GFR/1.73 sq M.predicted among non-blacks MDRD (S/P/Bld) [Vol rate/Area] 96 mL/min/1.73 m2 Normal >=59 [facility] Comment on above: Order Comment: Order added by Discern Expert. Result Comment: Ob Gyn Physician Assistant neisha kidney disease could be indicated at eGFR's of less than 60 mL/min/1.73m2. Kidney failure is indicated at less than 15 mL/min/1.73m2. Performed By: #### 2 [id number], [id number], [id number] ####[facility] [address] [place] [address] [facility] (Inserted Image. Kandace ble to display) Keith Subramanian DPM [address] [place] [address] Re: CHLOE AGARWAL Date of : 1955 Re: Chloe Agarwal : 1955 Patient represents low risk of cardiovascular events involving her non-cardiac surgery. Recent left heart catheterization revealed normal coronary arteries. Vicky LARA [facility] Heart [facility] V[facility] Clinic Normal [facility] Outside Records Officeon Outside Records Office [id number]#1.00CD:1 27 Normal [facility] Heart and Vascular Office/Cl inic Noteon 05-14-2023 [...] intact- no rash or concerning lesions Procedure [facility] 09/17/21 CONCLUSIONS: 1. Normal coronary arteries. 2. [...] (COVID-19) mRNA (more content not included)... Normal [facility] Comment on above: Result Comment: Elec tronically Signed By: Vicky LAST CNP\.br\Date and Time Signed: 05/14/23 09:30 EDT Consent for Treatmenton 04-18 Consent for Treatment [id number]#1.00CD:127 Normal [facility] Consultation Noteon 05-04-20 Consultation Note [...] QID, # 120 tab(s), Refills(s) 3, Pharmacy: [facility], 152, cm, 04/03/23 9:20:00 EDT, Height/Length Dosing, 80, kg, 04/03/23 9:20:00 EDT, Weight Dosing Cozaar 25 mg Tab: 25 mg = 1 tab(s), Oral, Daily, stopping Lisinopril Starting Cozaar, X 90 day(s), # 90 tab(s), Refills(s) 3, Pharmacy: [facility], 152, cm, 11/05/22 11:35:00 EST, Height/Length Dosing, 76, kg, 11/05/22 11:35:00 EST, Weight Dosing Protonix 40 mg Tab-DR: 40 mg = 1 tab(s), Oral, BID, # 120 tab(s), Refills(s) 0, Pharmacy: [facility], 152.4, cm, 04/01/21 7:20:00 EDT, Height/Length Dosing, 85.5, kg, 04/01/21 7:20:00 EDT, Weight Dosing gabapentin 300 mg Cap: 300 mg = 1 cap(s), Oral, BID, start with once a day for a week. If doing ok can increase to BID, # 60 cap(s), Refills(s) 0, Pharmacy: [facility], 152, cm, 05/04/23 8:55:00 EDT, Height/Length Dosing, 72.6, kg, 05/04/23 8:55:00 EDT, Pacog... metoprolol 25 mg ER Tab: 25 mg = 1 tab(s), Oral, Daily, # 90 tab(s), Refills(s) 3, Pharmacy: [facility], 152, cm, 11/05/22 11:35:00 EST, Height/Length Dosing, 76, kg, 11/05/22 11:35:00 EST, Weight Dosing Documented Medications Documented alendronate 70 mg Tab: TAKE 1 TABLET BY MOUTH 30 MINUTES BEFORE first food once a week, Prophylaxis Problem list: All Problems Chronic GERD / SNOMED CT 538605766 / Confirmed Unilateral primary osteoarthritis, right knee / SNOMED CT 9471525653 / Confirmed Gastritis / SNOMED CT 0259646 / Confirmed Vertigo / SNOMED CT 4754465642 / Confirmed BMI 34.0-34.9,adult / SNOMED CT 828143414 / Confirmed Regurgitation of stomach contents / SNOMED CT 539827835 / Confirmed Osteoporosis / SNOMED CT 300377196 / Confirmed HTN (hypertension) / SNOMED CT 0723129926 / Confirmed Dysphagia / SNOMED CT 71440953 / Confirmed Epigastric pain / SNOMED CT 622044751 / Confirmed Chest pain due to GERD / SNOMED CT 10713789 / Confirmed Screening for malignant neoplasm of colon / SNOMED CT 221994399 / Confirmed H/O: osteoarthritis / SNOMED CT 185751947 / Confirmed Hiatal hernia with gastroesophageal reflux / SNOMED CT 4915958892 / Confirmed Duodenogastric bile reflux / SNOMED CT 94817180 / Confirmed Sigmoid diverticulosis / SNOMED CT 8020895994 / Confirmed Resolved: GERD - Gastro-esophageal reflux disease / SNOMED CT 6335088716 Resolved: Appendicitis / SNOMED CT 832388745 Resolved: Cough / SNOMED CT 48990140 Resolved: Sinus drainage / SNOMED CT 598000165 Canceled: GERD with apnea / SNOMED CT 6503277145 Objective VS/Measurements General: Alert and oriented, No acute distress. Overweight Eye: Normal conjunctiva. HENT: Normocephalic, Normal hearing. Cardiovascular: No edema. Musculoskeletal Normal range of motion. Normal strength. 5/5 lower extremity strength Integumentary: Warm, Dry, [place]. Injection site well-healed Neurologic: Alert, Oriented. Psychiatric: Cooperative, Appropriate mood & affect. Impression and Plan Patient is a 67-year-old female with a past medical history as needed significant for lumbar degenerative disease, lumbar neuritis, and trochanteric bu (more content not included)... Normal [facility] Comment on above: Result Comment: Elec tronically Signed By: Vicky Castillo PA-C\.br\Date and Time Signed: 05/04/23 09:08 EDT\.br\Electronically Co-Signed By: Valeri CANTRELL, Demar Leal\.br\Date and Time Co-Signed: 05/12/23 10:41 EDT Office/Clinic Note-Physician on 05-04-2023 Office/Clinic Note-Physician [id number]#1.00CD:12 7 [facility] Patient Correspondenceon Patient Correspondence [id number]#1.00CD:12 7 [facility] Patient Correspondence [id number]#1.00CD:12 7 [facility] Patient History Officeon Patient History Office [id number]#1.00CD:12 7 [facility] Consent for Treatmenton 04-18 Consent for Treatment [id number]#1.00CD:12 7 [facility] Progress Note-Nurseon 2022 Progress Note-Nurse [id number]#1.00CD:12 7 [facility] Consent for Procedure/Surger yon 04-20-2023 Consent for Procedure/Surgery [id number]#1.00CD:1 27 [facility] Consent for Treatmenton Consent for Treatment [id number]#1.00CD:12 7 [facility] Office/Clinic Note-Physician on 04-20-2023 Office/Clinic Note-Physician [id number]#1.00CD:1 27 [facility] Operative Reporton Operative Report Patient: [...] Mean Arterial Pressure, Cuff 112 mmHg . [facility] Comment on above: Result Comment: Elec tronically Signed By: Valeri CANTRELL, Demar Preston.elmo\Date and Time Signed: 04/20/23 14:27 EDT Patient Correspondenceon Patient Correspondence [id number]#1.00CD:1 27 Normal [facility] Patient History Officeon Patient History Office [id number]#1.00CD:1 27 Normal [facility] Physician Orderon 04-20-2023 Physician Order [id number]#1.00CD:1 27 [facility] Ambulatory Visit Summaryon 0 04-15-2023 Ambulatory Visit Summary CHLOE AGARWAL Arlen :1955 Visit Date:04/15/2023 Ambulatory Visit Instructions Your Diagnosis Hiatal hernia with gastroesophageal reflux Duodenogastric bile reflux, Gastro-esophageal reflux disease without esophagitis Sigmoid diverticulosis Your Care Team Attending Physician - JOSE RAMON CANTRELL, Michael Billingsley Primary Care Physician - Vick Mcghee MD This Is Your Medications List [...] GERD - Gastro-esophageal reflux disease Sinus drainage Christina [facility] General Surgery Office/Clini c Noteon 04-15-2023 General [...] (COVID-19) mRNA BNT-162b2 vax 07/02/2021 Recorded Normal [facility] Comment on above: Result Comment: Elec tronically Signed By: Michael ALBRIGHT MD\.br\Date and Time Signed: 04/15/23 14:05 EDT IntraOperative Documentson 0 04-13-2023 IntraOperative Documents [id number]#1.00CD:1 27 Normal [facility] Colonoscopy Procedure Report on 04-09-2023 Colonoscopy Procedure Report Patient: CHLOE AGARWAL Age: 67 years Sex: Female : 1955 Associated Diagnoses: None Author: Michael ALBRIGHT MD Pre-Procedure Procedure Date 04/03/2023 10:25:00 . Procedure Type: Colonoscopy. Procedure provider Performed by Michael ALBRIGHT MD. Referred by Vick Mcghee MD. Current history and physical Documented [...] and Plan Diagnosis: Diverticulosis of sigmoid colon (RSN70-XQ K57.30, Discharge, Medical). Course: Progressing as expected. Recommendations: Repeat colonoscopy:: In 10 years. Follow-up:: 1-2 weeks. Diet:: Regular diet. Medication resumption:: Continue current medications. Return to activities:: After 24 hours. Education and Follow-up: Counseled: Family. there was noted to be mild inflammation of the sigmoid colon, and a biopsy was obtained. with cold biopsy forceps, with good hemostasis. [facility] Comment on above: Other Comment: Constanza diamond Attachment - attachment storage system not supported [id number] Can be viewed in source systemMissing Attachment - attachment storage system not supported [id number] Can be viewed in source systemMissMavenHut Attachment - attachment storage system not supported 1183345 Can be viewed in source systemMissMavenHut Attachment - attachment storage system not supported 8251864 Can be viewed in source system Coding Queryon 04-08-2023 Coding Query - From: Aminata Cruz To: JOSE RAMON CANTRELL, Michael Billingsley; Sent: 04/08/2023 10:30:53 EDT ! Subject: Coding Query Dr Albright, There is a pathology report from the colonoscopy, can you document that portion of the procedure for the OP note. Thank you, Jennifer HIM Coding [facility] Consent for Treatmenton 03-20 Consent for Treatment [id number]#1.00CD:1 27 [facility] Consultation Noteon 04-07-20 Consultation Note Patient: CHLOE AGARWAL Age: 67 years Sex: Female : 1955 Associated Diagnoses: None Author: Demar Trammell MD Subjective Chief complaint 04/07/2023 10:56 EDT Lower [...] QID, # 120 tab(s), Refills(s) 3, Pharmacy: [facility], 152, cm, 04/03/23 9:20:00 EDT, Height/Length Dosing, 80, kg, 04/03/23 9:20:00 EDT, Weight Dosing Cozaar 25 mg Tab: 25 mg = 1 tab(s), Oral, Daily, stopping Lisinopril Starting Cozaar, X 90 day(s), # 90 tab(s), Refills(s) 3, Pharmacy: [facility], 152, cm, 11/05/22 11:35:00 EST, Height/Length Dosing, 76, kg, 11/05/22 11:35:00 EST, Weight Dosing Protonix 40 mg Tab-DR: 40 mg = 1 tab(s), Oral, BID, # 120 tab(s), Refills(s) 0, Pharmacy: [facility], 152.4, cm, 04/01/21 7:20:00 EDT, Height/Length Dosing, 85.5, kg, 04/01/21 7:20:00 EDT, Weight Dosing metoprolol 25 mg ER Tab: 25 mg = 1 tab(s), Oral, Daily, # 90 tab(s), Refills(s) 3, Pharmacy: [facility], 152, cm, 11/05/22 11:35:00 EST, Height/Length Dosing, 76, kg, 11/05/22 11:35:00 EST, Weight Dosing Documented Medications Documented alendronate 70 mg Tab: TAKE 1 TABLET BY MOUTH 30 MINUTES BEFORE first food once a week, Prophylaxis ropinirole 0.5 mg Tab: take 1 tablet by mouth at bedtime, Other (see comment) Problem list: All Problems BMI 34.0-34.9,adult / SNOMED CT 250773545 / Confirmed Chest pain due to GERD / SNOMED CT 89077357 / Confirmed Chronic GERD / SNOMED CT 144456373 / Confirmed Dysphagia / SNOMED CT 41809233 / Confirmed Epigastric pain / SNOMED CT 017880583 / Confirmed Gastritis / SNOMED CT 1229380 / Confirmed H/O: osteoarthritis / SNOMED CT 654604965 / Confirmed HTN (hypertension) / SNOMED CT 2739795820 / Confirmed Osteoporosis / SNOMED CT 082430971 / Confirmed Regurgitation of stomach contents / SNOMED CT 451619753 / Confirmed Screening for malignant neoplasm of colon / SNOMED CT 426362734 / Confirmed Unilateral primary osteoarthritis, right knee / SNOMED CT 5470926636 / Confirmed Vertigo / SNOMED CT 1618373727 / Confirmed Objective Vital Signs 04/07/2023 10:56 [...] Patient agrees with plan of care. Normal [facility] Comment on above: Result Comment: Elec tronically Signed By: Valeri CANTRELL, Demar Leal\.elmo\Date and Time Signed: 04/07/23 12:35 EDT Main OR Intraoperative Recor don 04-07-2023 Main OR Intraoperative Record IntraOp Document Type FT Summary Primary Physician: Michael ALBRIGHT MD Finalized Date/Time: 04/07/23 08:07:26 Pt. Name: CHLOE AGARWALO.B./Sex: 1955 Female Med Rec #: [id number] Physician: JOSE RAOMN CANTRELL, Michael Billingsley Financial #: [id number] Pt. Type: O Room/Bed: Endo 12/17 Admit/Disch: [...] Hernandez RN, Karissa Little Role Performed Anesthesiologist Surveillance Analyst - Primary Scrub - Primary Sandblaster Glass Time In 04/03/23 09:47:00 04/03/23 09:47:00 04/03/23 09:47:00 Time Out 04/03/23 10:12:00 04/03/23 10:12:00 04/03/23 10:12:00 Procedure EGD AND COLONOSCOPY(.) EGD AND COLONOSCOPY(.) EGD AND COLONOSCOPY(.) Comments supervising Last Modified By: Mary DUMONT, Iris Hernandez RN, Iris Hernandez RN, Iris [...] Nico Carter Given Participants Mary Enciso RN, Angela, Miles, Kirstyn K, Sparks, Micala E, Michael ALBRIGHT MD Time Out Complete 04/03/23 09:49:00 Outcomes Met? [...] and tissue Entry 1 Skin Integrity Intact, [place], Warm, and Skin Abnormality No Dry Outcomes [...] patient for (more content not included)... Normal [facility] Office/Clinic Note-Physician on 04-07-2023 Office/Clinic Note-Physician [id number]#1.00CD:1 27 [facility] Patient Correspondenceon Patient Correspondence [id number]#1.00CD:1 27 [facility] Patient History Officeon Patient History Office [id number]#1.00CD:1 27 [facility] Consenton 04-06-2023 Consent [id number]#1.00CD:12 7 [facility] Discharge Instructionson Discharge Instructions [id number]#1.00CD:12 7 [facility] Postoperative Documentson Postoperative Documents [id number]#1.00CD:12 7 [facility] Reminderson 04-06-2023 Reminders - From: Teresa Golden LPN To: LESLYN - Clinical; Sent: 04/06/2023 09:24:18 EDT Show up: 03/03/2033 07:00:00 EDT Subject: colonoscopy recall Due Date/Time: 04/03/2033 07:00:00 EDT Reminder/Recall Patient due for screening colonoscopy 04/03/2033. Normal [facility] Consent for Treatmenton 03-19 Consent for Treatment [id number]#1.00CD:12 7 [facility] Discharge Instructionson Discharge Instructions CHLOE [...] operative site, Persistent vomiting Pharmacy Information Other: [facility] Discharge Instructions Discharge Instructions Previously Scheduled Follow-Up Appointments Thursday 11:00 AM EDT With: Demar Trammell MD Where: [facility] Thursday 9:00 AM EDT With: Vicky LAST CNP Where: Cardiology Clinic New Follow Up Appointments after Discharge Follow Up with Michael ALBRIGHT When: Within 2 weeks Where: [address] [place] [address] [employer] (1) Medications What How Much When Why Instructions Next Dose New sucralfate (Carafate 1 gram Tab) 1 Tablets By Mouth 4 times a day Hiatal hernia with gastroesophageal reflux disease without esophagitis Refills: 3 Pickup at [facility] Unchanged alendronate (alendronate 70 mg Tab) [...] tablet by mouth at bedtime Pharmacy Information [facility]: [address] [place] [id number] [phone] Allergies lisinopril (Coughing) sulfa drugs (unknown) Problems [...] complications such (more content not included)... Normal [facility] Comment on above: Result Comment: Elec tronically Signed By: Luke DUMONT, Fartun Leal\.br\Date and Time Signed: 04/03/23 10:26 EDT David 04-03-2023 Esophagogastroduodenosco py Patient: CHLOE AGARWAL Age: 67 years Sex: Female : 1955 Associated Diagnoses: None Author: Michael ALBRIGHT MD Pre-Procedure Procedure Date 04/03/2023 10:19:00 . Procedure Type: Esophagogastroduodenoscop y. Procedure provider Performed by Michael ALBRIGHT MD. Referred by Vick Mcghee MD. Current history and physical Documented [...] hernia with gastroesophageal reflux disease without esophagitis (HLT11-RY K44.9, Working, Medical), Hiatal hernia with gastroesophageal reflux disease without esophagitis (HIN22-NS K44.9, Discharge, Medical), Gastro-esophageal reflux disease without esophagitis (PBY33-BU K21.9, Discharge, Medical), Encounter for screening for malignant neoplasm of rectum (NPC29-ZD Z12.12, Discharge, Medical), Encounter for colorectal cancer screening (KOQ68-RU Z12.11, Discharge, Medical), Diverticulosis of sigmoid colon (AFX12-KG K57.30, Discharge, Medical). Course: Progressing as expected. Education and Follow-up: Counseled: Family. Normal [facility] Comment on above: Other Comment: Constanza diamond Attachment - attachment storage system not supported [id number] Can be viewed in source systemMissing Attachment - attachment storage system not supported [id number] Can be viewed in source systemMissing Attachment - attachment storage system not supported [id number] Can be viewed in source systemMissing Attachment - attachment storage system not supported [id number] Can be viewed in source system Inpatient Patient Summaryon 04-03-2023 Inpatient Patient Summary [place] [id number] [facility] Clinical Discharge Instructions PERSON INFORMATION Name: CHLOE AGARWAL PHYSICIANS Admitting Physician: Michael ALBRIGHT MD Attending Physician: Michael ALBRIGHT MD PCP: Nathalie CANTRELL, Vick Discharge Diagnosis: Diverticulosis of sigmoid colon; Encounter for colorectal cancer screening; Encounter for screening for malignant neoplasm of rectum; Gastro-esophageal reflux disease without esophagitis; Hiatal hernia with gastroesophageal reflux disease without esophagitis Comment: PATIENT EDUCATION INFORMATION Instructions: Medication Leaflets: Follow up: With: Address: When: Michael ALBRIGHT [address], [address], [facility] [address] [place] [address] Business (1) Within 2 weeks Type Location Start Finish State Pain Management - Follow Up ([facility]) [facility] [place] 04/07/2023 11:00 AM 04/07/2023 11:15 AM Confirmed Cardiology Follow Up (FT) [facility] 04/28/2023 9:00 AM 04/28/2023 9:15 AM Confirmed MEDICATION LIST New Medications [facility], [address], [place] [id number], [phone] sucralfate (Carafate 1 gram Tab) 1 Tablets [...] mouth at bedtime., Restless legs Comment: Normal [facility] Main OR PACU I Recordon 03-19 Main OR PACU I Record PACU Phase I Docum ent Type FT Summary Primary Physician: Michael ALBRIGHT MD Finalized Date/Time: 04/03/23 10:55:16 Pt. Name: CHLOE AGARWAL/Sex: 1955 Female Med Rec #: [id number] Physician: Michael ALBRIGHT MD Financial #: [id number] Pt. Type: O Room/Bed: [facility] 12/17 Admit/Disch: 04/03/23 09:06:01 - 04/03/23 10:54:28 [...] By: Fartun Butler RN 04/03/23 10:55 Normal [facility] Monitor Recordon 04-03-2023 Monitor Record [id number]#1.00CD:1 27 Normal [facility] Monitor Record [id number]#1.00CD:1 27 Normal [facility] Outpatient Surgery Discharge Instructionon 04-03-2023 Outpatient Surgery Discharge Instruction [place] [id number] Patient Discharge Instructions PERSON INFORMATION Name: CHLOE [...] THE NEAREST EMERGENCY ROOM OR CALL 911 ANY Kessler BARBARA J, have received the attached patient education materials/instructions and have verbalized understanding: May we do a follow up call? Yes No I was present when discharge instructions were given Patient Signature ___ Date Clinican/Nurse Signature Date Follow up: With: Address: When: Michael [address], [facility] [place] [address] [place] [address] Business (1) Within 2 weeks Type Location Start Finish State Pain Management - Follow Up (FT) [facility] [place] 04/07/2023 11:00 AM 04/07/2023 11:15 AM Confirmed Cardiology Follow Up (FT) [facility] 04/28/2023 9:00 AM 04/28/2023 9:15 AM Confirmed Pharmacy Information: Other: [facility] You may receive a survey from [employer] asking you to rate your care experience. Your feedback is important and will help us understand what we do well and how we can improve the quality of care we provide to you, your loved ones and our community. It?s an honor to serve you. Thank you for choosing [facility] HERE ARE THE MEDICATION CHANGES THAT OCCURRED DURING YOUR HOSPITAL STAY New Medications [facility], [address] [place], [place] [id number], [phone] sucralfate (Carafate 1 gram Tab) 1 Tablets [...] legs PATIENT EDUCATION INFORMATION Instructions: Medication Leaflets: [facility] Patient Education - Texton 0 [...] unsweetened, w/added ascorbic acid 1 cup 0.5 [place] 1 cup 0.7 Vegetables Cooked Green beans 1 cup 4.0 Carrots 1/2 cup sliced 2.3 Peas 1 cup 8.8 Potato (baked, with skin) 1 medium potato 3.8 Raw [place] (with peel) 1 cucumber 1.5 Lettuce 1 [...] 8.7 Peanuts 1/2 cup 7.9 Chart from [facility] 2013. SEEK IMMEDIATE MEDICAL CARE [...] Available at http://www.nal.usda.gov/f neisha/foodcomp/search/. Information adapted from: ExitCare? Patient Information ?2009 [employer]. [employer] 2012 http://www.3ROAM/c ontents/diverticular-dise lol-ijldai-rwk-basics Colonoscopy Care After Surgery Please read the [...] and progress (more content not included)... Normal [facility] Progress Note-Physicianon Progress Note-Physician Patient: CHLOE CHESTER Age: 67 years Sex: Female : 1955 Associated Diagnoses: None Author: Lb Wu Jr., DO Postoperative Information Postoperative disposition: Postoperative disposition: Home. Optimetrix number: Optimetrix number [id number]. Anesthetic utilized: General. Physical Examination Vital Signs [...] Surgery Unit, and To home ). Normal [facility] Comment on above: Result Comment: [...] day(s), # 90 tab(s), Refills(s) 3, Pharmacy: [facility], 152, cm, 11/05/22 11:35:00 EST, Height/Length Dosing, 76, kg, 11/05/22 11:35:00 EST, Weight Dosing Protonix 40 mg Tab-DR: 40 mg = 1 tab(s), Oral, BID, # 120 tab(s), Refills(s) 0, Pharmacy: [facility], 152.4, cm, 04/01/21 7:20:00 EDT, Height/Length Dosing, 85.5, kg, 04/01/21 7:20:00 EDT, Weight Dosing metoprolol 25 mg ER Tab: 25 mg = 1 tab(s), Oral, Daily, # 90 tab(s), Refills(s) 3, Pharmacy: [facility], 152, cm, 11/05/22 11:35:00 EST, Height/Length [...] All Problems BMI 34.0-34.9,adult / SNOMED CT 206289380 / Confirmed Chest pain due to GERD / SNOMED CT 13257754 / Confirmed Chronic GERD / SNOMED CT 122393334 / Confirmed Dysphagia / SNOMED CT 66887443 / Confirmed Epigastric pain / SNOMED CT 255529307 / Confirmed Gastritis / SNOMED CT 2497475 / Confirmed H/O: osteoarthritis / SNOMED CT 589211561 / Confirmed HTN (hypertension) / SNOMED CT 8952563051 / Confirmed Osteoporosis / SNOMED CT 843825969 / Confirmed Regurgitation of stomach contents / SNOMED CT 125700571 / Confirmed Screening for malignant neoplasm of colon / SNOMED CT 317985247 / Confirmed Unilateral primary osteoarthritis, right knee / SNOMED CT 0378495101 / Confirmed Vertigo / SNOMED CT 1796644055 / Confirmed Resolved: Appendicitis / SNOMED CT 636418868 Resolved: Cough / SNOMED CT 58633454 Resolved: GERD - Gastro-esophageal reflux disease / SNOMED CT 2250617600 Resolved: Sinus drainage / SNOMED CT 704117627 Canceled: GERD with apnea / SNOMED CT 5012681696 Histories Past Medical History: Resolved GERD - Gastro-esophageal reflux disease (1400981121): Resolved. Appendicitis (274396395): Resolved. Cough (60520125): Resolved. Sinus drainage (281165808): Resolved. Procedure history: Cardiac catheterization procedure (90978835) on 09/17/2021 at 65 Years. EGD - Esophagogastroduodenoscop y (3960173253) on 04/01/2021 at 65 Years. Appendectomy (754007150) on 10/19/2017 at 62 Years. Ureterorenoscopy with fragmentation and removal of kidney stone (5795701704). EGD - Esophagogastroduodenoscop y (8437735349). Comments: 03/08/2021 10:09 EDT - Landon MCKEON, Helio Yost during early 40s Tonsillectomy with adenoidectomy (11358326). Arthroplasty of knee (67443403). Arthroplasty of knee (53833349). Social History Social & Psychosocial Habits Alcohol 09/18/2019 Use: Current Comment: rosalieies - 09/18/2019 13:18 - Rosina Bales RN 09/07/2020 Risk Assessment: Denies Alcohol Use Comment: Denmario alberto. - 09/01/2021 23:12 - Nicky Ospina RN Substance Abuse 09/07/2020 Risk Assessment: Denies Substance Abuse Comment: Lexis. - 09/01/2021 23:12 - Nicky Ospina RN Tobacco 09/18/2019 Risk Assessment: Denies Tobacco Use 02/20/2023 Tobacco Use: Never (less than 100 in l Smokeless tobacco use: Never Comment: Lexis. - 09/01/2021 23:12 - Nicky Ospina RN (more content not included)... [facility] Comment on above: Result Comment: Elec tronically Signed By: Lb Wu Jr., DO\.br\Date and Time Signed: 04/03/23 09:37 EDT Consent for Procedure/Surger yon 03-17-2023 Consent for Procedure/Surgery [id number]#1.00CD:12 7 [facility] Consent for Treatmenton 02-18 Consent for Treatment [id number]#1.00CD:1 27 [facility] Discharge Instructionson Discharge Instructions [id number]#1.00CD:12 7 [facility] IntraOperative Documentson 0 03-17-2023 IntraOperative Documents [id number]#1.00CD:12 7 [facility] Main OR Intraoperative Recor don 05-30-2023 Main OR Intraoperative Record IntraOp Document Type FTPM Summary Primary Physician: Demar Trammell MD Finalized Date/Time: 03/17/23 11:36:22 Pt. Name: CHLOE AGARWAL Sherry/Sex: 1955 Female Med Rec #: [id number] Physician: Demar Trammell MD Financial #: [id number] Pt. Type: P Room/Bed: / Admit/Disch: 03/17/23 10:05:44 - Institution: Case Times FTPM Entry 1 Patient Times In Room 03/17/23 11:30:00 Out Room 03/17/23 11:36:00 Procedure Times Start 03/17/23 11:33:00 Stop 03/17/23 11:35:00 Anesthesia Times Last Modified By: Antoinette Erickson RN 03/17/23 11:35:06 Case Attendance FTPM Entry 1 Entry 2 Entry 3 Case Attendee Demar Trammell MD, RN, Velma Li RN Role Performed Surgeon - Primary Surveillance Analyst - Primary Scrub - Primary Time In 03/17/23 11:30:00 03/17/23 11:30:00 03/17/23 11:30:00 Time Out 03/17/23 11:36:00 03/17/23 11:36:00 03/17/23 11:36:00 Procedure TRANSFORAMINAL EPIDURAL TRANSFORAMINAL EPIDURAL TRANSFORAMINAL EPIDURAL STEROID STEROID STEROID INJECTIO(Bilateral) INJECTIO(Bilateral) INJECTIO(Bilateral) Comments Last Modified By: Georgina DUMONT, Antoinette Erickson RN, Antoinette Walker RN 03/17/23 11:35:07 03/17/23 11:35:07 03/17/23 11:35:07 Entry 4 Case Attendee Antionette Carmona Role Performed Wooden Frame Builder Time In 03/17/23 11:30:00 Time Out 03/17/23 [...] and tissue Entry 1 Skin Integrity Intact, [place], Warm, and Skin Abnormality No Dry Outcomes [...] Safety Strap, (more content not included)... Normal [facility] Main OR Preoperative Recordo n 03-17-2023 Main OR Preoperative Record Holding Area Document Type FT Summary Primary Physician: Demar Trammell MD Finalized Date/Time: 03/17/23 11:09:08 Pt. Name: ANYCHLOE/Sex: 1955 Female Med Rec #: [id number] Physician: Demar Trammell MD Financial #: [id number] Pt. Type: P Room/Bed: / Admit/Disch: 03/17/23 [...] Signed By: Virgie Horne RN 03/17/23 11:09 Normal [facility] Office/Clinic Note-Nurseon 0 03-17-2023 Office/Clinic Note-Nurse Pt c/o feeling wobbly when standing . Pt assisted back to the cart. Pt assisted back to cart and pt given snack. Pt reports feeling better after eating chips. Pt able to stand @ cartside. Pt escorted out in w/c. Normal [facility] Comment on above: Result Comment: Elec tronically Signed By: Raul DUMONT, Tierra\.br\Date and Time Signed: 03/17/23 11:51 EDT Operative Reporton 3 Operative Report Patient: CHLOE AGARWAL Age: 67 years Sex: Female : 1955 Associated Diagnoses: None Author: Valeri CANTRELL, Demar Leal Procedure Procedure: Transforaminal Epidural Steroid Injections with [...] Respiratory Rate 12 br/min LOW . Normal [facility] Comment on above: Result Comment: Elec tronically Signed By: Valeri CANTRELL, Demar Leal\.br\Date and Time Signed: 03/17/23 11:34 EDT RAD - CT Reporton 03-12-2023 RAD - CT Report [id number]#1.00CD:12 7 Normal [facility] Lab Reportson 03-04-2023 Lab Reports [id number]#1.00CD:12 7 Normal [facility] CREATININEon 03-03-2023 Creatinine [Mass/Vol] 0.89 mg/dL Normal 0.55-1.02 [facility] Comment on above: Performed By: #### C LING #### [facility] [address] [address] [address] Lorraine Scott EGFR-AF ALBANIAN >60 Normal >=60 [facility] Comment on above: Performed By: #### C LING #### [facility] [address] [place], [place] [address] Dr. Lorraine Scott EGFR-NON AF ALBANIAN >60 Normal >=60 [facility] Comment on above: Performed By: #### C LING #### [facility] [address] ABD/PELV W CONon [...] by: RYAN VAZQUEZ Date: 2023-03-03 10:08 Normal [facility] Patient Correspondenceon Patient Correspondence [id number]#1.00CD:1 27 Normal [facility] Facesheeton 02-24-2023 Facesheet [id number]#1.00CD:12 7 Normal [facility] Consent for Procedure/Surger yon 02-23-2023 Consent for Procedure/Surgery [id number]#1.00CD:12 7 Normal [facility] Consent for Surgery/Procedur e Officeon 02-23-2023 Consent for Surgery/Procedure Office [id number]#1.00CD: 127 Normal [facility] Consultation Noteon 02-24-20 23 Consultation Note Patient: CHLEO AGARWAL Age: 67 years Sex: Female : 1955 Associated Diagnoses: None Author: Demar Trammell MD Basic Information Accompanied by: Spouse. Source of history: Self. Referral source: Vick Mcghee MD. History limitation: None. Chief Complaint [...] All Problems BMI 34.0-34.9,adult / SNOMED CT 935126079 / Confirmed Chest pain due to GERD / SNOMED CT 67937610 / Confirmed Chronic GERD / SNOMED CT 344729638 / Confirmed Dysphagia / SNOMED CT 43154607 / Confirmed Epigastric pain / SNOMED CT 791086261 / Confirmed Gastritis / SNOMED CT 3920702 / Confirmed H/O: osteoarthritis / SNOMED CT 803216731 / Confirmed HTN (hypertension) / SNOMED CT 0208582316 / Confirmed Osteoporosis / SNOMED CT 723867771 / Confirmed Regurgitation of stomach contents / SNOMED CT 356380580 / Confirmed Screening for malignant neoplasm of colon / SNOMED CT 157508742 / Confirmed Unilateral primary osteoarthritis, right knee / SNOMED CT 1250712960 / Confirmed Vertigo / SNOMED CT 1505904493 / Confirmed Histories Past Medical History: Resolved GERD - Gastro-esophageal reflux disease (4331844922): Resolved. Appendicitis (976236845): Resolved. Cough (66108898): Resolved. Sinus drainage (671106830): Resolved. Family History: Acute congestive heart failure Mother Father Hypertension Sister Procedure history: Cardiac catheterization procedure (91416319) on 09/17/2021 at 65 Years. EGD - Esophagogastroduodenoscop y (7895339366) on 04/01/2021 at 65 Years. Appendectomy (120513211) on 10/19/2017 at 62 Years. Ureterorenoscopy with fragmentation and removal of kidney stone (2934214597). EGD - Esophagogastroduodenoscop y (4440451118). Comments: 03/08/2021 10:09 EDT - Helio Navarrete MA during early 40s Tonsillectomy with adenoidectomy (85050116). Arthroplasty of knee (18185612). Arthroplasty of knee (04261167). Social History Social & Psychosocial Habits Alcohol [...] in l Smokeless tobacco use: Never Comment: Lexis. - 09/01/2021 23:12 - Nicky Ospina RN . Physical Examination Vital Signs (last 24 hrs) Last Charted Heart Rate Peripheral 62 bpm (FEBRUARY 23 12:32) SBP H 150mmHg (FEBRUARY 23 12:32) DBP H 97mmHg (FEBRUARY 23:) Weight 79.8 [...] palpation. Lympha (more content not included)... Normal [facility] Comment on above: Result Comment: Elec tronically Signed By: Valeri CANTRELL, Demar Leal\.br\Date and Time Signed: 02/23/23 13:22 EDT HIPAA Forms Officeon 023 HIPAA Forms Office [id number]#1.00CD:12 7 Normal [facility] Legal Correspondence Officeo n 02-23-2023 Legal Correspondence Office [id number]#1.00CD:12 7 [facility] Legal Correspondence Office [id number]#1.00CD:12 7 [facility] Office/Clinic Note-Physician on 02-23-2023 Office/Clinic Note-Physician [id number]#1.00CD:12 7 [facility] Patient Correspondenceon Patient Correspondence [id number]#1.00CD:12 7 [facility] Patient Correspondence [id number]#1.00CD:12 7 [facility] Patient Correspondence [id number]#1.00CD:12 7 [facility] Patient Correspondence [id number]#1.00CD:12 7 [facility] Patient Correspondence [id number]#1.00CD:12 7 [facility] Patient Correspondence [id number]#1.00CD:12 7 [facility] Patient History Officeon Patient History Office [id number]#1.00CD:12 7 [facility] Ambulatory Visit Summaryon 0 02-20-2023 Ambulatory Visit Summary CHLOE AGARWAL :1955 Visit Date:02/20/2023 Ambulatory Visit Instructions Your Care Team Attending Physician - JOSE RAMON CANTRELL, Michael Billingsley Primary Care Physician - Vick Mcghee MD This Is Your Medications List [...] - Gastro-esophageal reflux disease Sinus drainage Normal [facility] Outside Records Officeon Outside Records Office [id number]#1.00CD:1 27 Normal [facility] Radiology Outside Office Glass Frame Fitter yon 02-20-2023 Radiology Outside Office Copy [id number]#1.00CD:1 27 Normal [facility] RAD - Ultrasound Reporton RAD - Ultrasound Report [id number]#1.00CD:12 7 Normal [facility] US SINGLE QUAD RT UPPERon US SINGLE [...] RYAN VAZQUEZ Date: 2023-02-09 11:57 Normal [facility] Physician Referralon 023 Physician Referral [id number]#1.00CD:12 7 Normal [facility] Covid-19 PCR ([facility])on 10-19 SARS-CoV-2 (COVID-19) RNA SHAHEEN+probe Ql (Unsp spec) Detected Abnormal NOT DETECTED [facility] Comment on above: Result Comment: This test is not yet approved or cleared by the [place] FDA. When there are no FDA-approved or cleared tests available, and other criteria are met, FDA can make tests available under an emergency access mechanism called an Emergency Use Authorization (EUA). The EUA for this test is supported by the [place] of Health and Human Service's declaration that [...] longer be used). Performed By: #### [facility] #### [facility] [address] [address] [address] Lorraine Scott INFLUENZA A AND B AGon 11-05 INFLUANE SEE BELOW Normal [facility] Comment on above: Result Comment: Nega tive for Flu A protein angiten. Infection due to Flu A cannot be ruled out. Flu A angiten in the sample may be below the detection limit of the test. Performed By: #### I NFLUAB #### [facility] [address] [address] [address] Lorraine Scott INFLUBNEG SEE BELOW Normal [facility] Comment on above: Result Comment: Nega tive for Flu B protein antigen. Infection due to Flu B cannot be ruled out. Flu B antigen in the sample may be below the detection limit of the test. Performed By: #### I NFLUAB #### [facility] [address] [place] [address] Dr. Lorraine Scott INFLUENZA A AG Negative Normal NEGATIVE SEE COMMENT [facility] Comment on above: Performed By: #### I NFLUAB #### [facility] [address] [place] [address] Dr. Lorraine Scott INFLUENZA B AG Negative Normal NEGATIVE SEE COMMENT [facility] Comment on above: Performed By: #### I NFLUAB #### [facility] [address] [place] [address] Dr. Lorraine Scott MG MAMM SCREEN 3D LAURA CADon 10-22-2022 MG MAMM SCREEN 3D LAURA CAD Patient: CHLOE AGARWAL Exam Date: 10/22/2022 : 1955 Gender:F Ordering : DR JUAN CARLOS GIFFORD . Admission #: [id number] Family : Order #: [id number] CLICK HERE TO VIEW EXAM RADIOLOGY REPORT [...] Treatments None Family Cancers None LOCATION: [facility] BREAST COMPOSITION: Scattered areas fibroglandular density. FINDINGS: [...] Vazquez M.D. on 10/23/2022 at 08:41 Normal [facility] XR DEXA BONE DENSITYon 10-22 XR DEXA [...] authenticated by: RYAN VAZQUEZ Date: 2022-10-22 09:12 [facility] PAP ACOG PANEL 2: 30 to 65on 10-03-2022 . . Normal [facility] Comment on above: Result Comment: Perf ormed at: WB Performed By: #### 4 [id number] #### [facility] [address] [address] [address] Lorraine Scott Age Gdln ACOG Testing 30-65 Normal [facility] Comment on above: Performed By: #### 4 [id number] #### [facility] [address] [place] [address] Dr. Lorraine Scott DIAGNOSIS: Comment Normal [facility] Comment on above: Result Comment: NEGA TIVE FOR INTRAEPITHELIAL LESION OR MALIGNANCY. CELLULAR CHANGES ASSOCIATED WITH ATROPHY ARE PRESENT. Performed at: WB Performed By: #### 4 [id number] #### [facility] [address] [place] [address] Dr. Lorraine Scott HPV Aptima Negative Normal Negative [facility] Comment on above: Result Comment: This nucleic acid amplification test detects fourteen high-risk HPV types (16,18,31,33,35,39,45,51,52,56,58,59,66,68) without differentiation. Performed at: =G Performed By: #### 4 [id number] #### [facility] [address] [place] [address] Dr. Lorraine Scott HPV Genotype Reflex Comment Normal [facility] Comment on above: Result Comment: Crit eria not met, HPV Genotype not performed. Performed at: WB Performed By: #### 4 [id number] #### [facility] [address] [place] [address] Dr. Lorraine Scott Methodology: Comment Normal [facility] Comment on above: Result Comment: This liquid based ThinPrep(R) pap test was screened with the use of an image guided system. Performed at: WB Performed By: #### 4 [id number] #### [facility] [address] [place] [address] Dr. Lorraine Scott Note: Comment Normal [facility] Comment on above: Result Comment: The Pap smear is a screening test designed to aid in the detection of premalignant and malignant conditions of the uterine cervix. It is not a diagnostic procedure and should not be used as the sole means of detecting cervical cancer. Both false-positive and false-negative reports do occur. . Performed at: WB Performed By: #### 4 [id number] #### [facility] [address] [place] [address] Dr. Lorraine Scott Performed by: Comment Normal [facility] Comment on above: Result Comment: Kong Juarez, Honeycomb Blanket Maker (ASCP) Performed at: WB Performed By: #### 4 [id number] #### [facility] [address] [address] [address] Lorraine Scott Specimen adequacy: Comment Normal [facility] Comment on above: Result Comment: Sati sfactory for evaluation. Endocervical component may not be distinguished in cases of atrophy. Performed at: WB Performed By: #### 4 [id number] #### [facility] [address] [address] [address] Lorraine Scott CHEMISTRYOrdered By: SYSTEM SYSTEM on 04-29-2022 Anion gap [Moles/Vol] 13 mmol/L Normal 6 - 16 mEq/L FT Remisol Calcium [Mass/Vol] 10.0 mg/dL Normal 8.9 - 11. 1 mg/dL [facility] Remisol Chloride [Moles/Vol] 103 mmol/L Normal 101 - 1 11 mmol/L [facility] Remisol CO2 [Moles/Vol] 27 mmol/L Normal 21 - 31 mmol/L FT Remisol Creatinine [Mass/Vol] 1.0 mg/dL Normal 0.5 - 1.3 mg/dL [facility] Remisol GFR/1.73 sq M.predicted among blacks MDRD (S/P/Bld) [Vol rate/Area] mL/min/1.73 m2 Normal >=59mL/min /1.73 m2 [facility] Chem S GFR/1.73 sq M.predicted among non-blacks MDRD (S/P/Bld) [Vol rate/Area] 56 mL/min/1.73 m2 Low >=59mL/min /1.73 m2 [facility] Chem S Glucose [Mass/Vol] 104 mg/dL Normal 55 - 199 mg/dL FT Remisol Potassium [Moles/Vol] 4.6 mmol/L Normal 3.5 - 5.3 mmol/L [facility] Remisol Sodium [Moles/Vol] 138 mmol/L Normal 135 - 145 mmol/L [facility] Remisol Urea nitrogen [Mass/Vol] 20 mg/dL Normal 5 - 21 mg/dL [facility] Remisol Urea nitrogen/Creatinine [Mass ratio] 20 mg/mg Normal 10 - 20 [facility] Remisol US breast LT limited 06-26 breast LT limited [place] [address] Mammography Report Signed Patient: Chloe Agarwal MR#: [id number] : 1955 Acct:[id number] Age/Sex: 65 / F ADM Date: 06/26/21 Loc: [place] Room: Type: [facility] Attending Dr: Juan Carlos Gifford MD Ordering Provider: Juan Carlos Gifford MD Date of Service: 06/26/21 MM/MM diagnostic mammo BI w/CAD: BREAST PAIN ([id number]) US/US breast LT limited: BREAST PAIN Copies [...] Cira Pena M.D.06/26/2021 11:36 AM Dictation Location: [facility] Transcribed By: [facility] 06/26/21 1136 Dictated By: Cira Pena MD 06/26/21 0804 Signed By: 06/26/[address] [facility] Intraoperative Noteon 2017 Intraoperative Note [id number]#1.00OTGTIF F [facility] Coding Summaryon 12-14-2017 Coding Summary CODING DATE: 018 [facility] STATUS: Home PAYOR: Commercial Insurance APC DESCRIPTION 5361 Level 1 Laparoscopy and Related Services ADMIT DX: REASON FOR VISIT DX: K35.80 Unspecified acute appendicitis FINAL DX: PRINCIPAL: K35.80 Unspecified acute appendicitis SECONDARY: K21.9 Gastro-esophageal reflux disease without esophagitis PYMT PROC APC STAT DESCRIPTION DOCTOR NAME DATE 17044 5361 J1 Laparoscopy, surgical, Adryan Yoon MD appendectomy NOTE: The code number assigned matches the documented diagnosis and / or procedure in the patient's chart. However, the narrative phrase printed from the coding software may appear abbreviated, or result in slightly different terminology. Coded By: Tenisha Smith Date Saved: 12/14/2017 09:53 am [facility] Lab - Other Lab Resultson Lab - Other Lab Results [id number]#1.00OTGTIF F [facility] Operative Report - Surgeon/P avery 12-09-2017 Operative Report - Surgeon/Physician This is [...] theprocedure without any difficulties.Adryan Yoon M.D.JOB #: [id number]: 12/09/2017T: 12/09/2017[Electronically Signed on: 12/15/2017 10:32 EST] Adryan Yoon MD[Verified on: 12/15/2017 10:32 EST] Adryan Yoon MD[Transcribed on: 12/09/2017 09:14 EST]GDU [facility] Outside Recordson 12-09-2017 Outside Records [id number]#1.00OTGTI FF [facility] Outside Records [id number]#1.00OTGTI [facility] MAGR Postoperative Recordon 12-08-2017 MAGR Postoperative Record MAGR Phase II Record Summary Primary Physician: Adryan Yoon MD Finalized Date/Time: 12/08/17 13:12:55 Pt. Name: CHLOE AGARWAL./Sex: 1955 FEMALE Med Rec #: [id number] Physician: Adryan Yoon MD Financial #: [id number] Pt. Type: D Room/Bed: [facility] Admit/Disch: 12/04/17 03:05:00 - 12/05/17 12:30:00 [...] discharge instructions. General Comments: care per 2 [facility] nursing personnel Finalized By: Chloe Turcios RN Document Signatures Signed By: Chloe Turcios RN 12/08/17 13:12 [facility] Operative Report - Surgeon/P avery 12-08-2017 Operative Report - Surgeon/Physician [id number]#1.00OTGTIF F [facility] Pathology Sendout Teston Pathology Send Out. See Report [facility] Comment on above: Order Comment: JANET COWART Performed By: #### 2 [id number] ####[facility] (DEFAULT)[address] [place] [address] Provider Orderson 12-08-2017 Provider Orders [id number]#1.00OTGTIF F [facility] Consent Formson 12-07-2017 Consent Forms [id number]#1.00OTGTIF F [facility] Intraoperative Noteon 2017 Intraoperative Note [id number]#1.00OTGTI FF [facility] Medication Managementon 11-19 Medication Management [id number]#1.00OTGTIF F [facility] Telemetry Stripson 8 Telemetry Strips [id number]#1.00OTGTIF F [facility] Discharge Summaryon 12-06-19 Discharge Summary DISCHARGE DIAGNOSIS: Acute appendicitis.DISCHARGE CONDITION: Good.HOSPITAL COURSE: The patient is a 62-year-old woman who presented [facility] emergency department. She was found to [...] me in two weeks.Adryan Yoon M.D.JOB #: [id number]: 12/05/2017T: 12/06/2017[Electronically Signed on: 12/09/2017 07:13 EST] Adryan Yoon MD[Verified on: 12/09/2017 07:13 EST] Adryan Yoon MD[Transcribed on: 12/06/2017 08:45 EST]GDU Normal [facility] .Auto Diff 1on 12-05-2017 Auto Baso % 0.1 % Low 0.2-2.0 [facility] Comment on above: Performed By: #### 7 [id number], [id number] ####[facility] (DEFAULT)[address] [place] [address] Auto Winkler % 8 % Normal 1-12 [facility] Comment on above: Performed By: #### 7 [id number], [id number] ####[facility] (DEFAULT)[address] [place] [address] Auto Neut % 86 % Normal 44-88 [facility] Comment on above: Performed By: #### 7 [id number], [id number] ####[facility] (DEFAULT)[address] [place] [address] Baso Abs# 0.0 x10 Normal 0.0-0.2 [facility] Comment on above: Performed By: #### 7 [id number], [id number] ####[facility] (DEFAULT)[address] [place] [address] Eos Abs# 0.0 x10 Normal 0.0-0.4 [facility] Comment on above: Performed By: #### 7 [id number], [id number] ####[facility] (DEFAULT)[address] [place] [address] Eosinophils/100 leukocytes 0.0 % Low 0.9-4.0 [facility] Comment on above: Performed By: #### 7 [id number], [id number] ####[facility] (DEFAULT)[address] [place] [address] Lymphocytes 0.6 x10 Low 1.3-2.9 [facility] Comment on above: Performed By: #### 7 [id number], [id number] ####[facility] (DEFAULT)[address] [place] [address] Lymphocytes/100 leukocytes 6 % Low 14-48 [facility] Comment on above: Performed By: #### 7 [id number], [id number] ####[facility] (DEFAULT)[address] [place] [address] Winkler Abs# 0.9 x10 High 0.0-0.8 [facility] Comment on above: Performed By: #### 7 [id number], [id number] ####[facility] (DEFAULT)[address] [place] [address] Neut Abs# 9.9 x10 High 1.5-9.2 [facility] Comment on above: Performed By: #### 7 [id number], [id number] ####[facility] (DEFAULT)[address] [place] [address] CBC w/ Auto Diffon 8 Erythrocyte distribution width Auto Ratio (RBC) 13.6 % Normal 11.5-15.0 [facility] Comment on above: Performed By: #### 7 [id number], [id number] ####[facility] (DEFAULT)[address] [place] [address] Erythrocytes (RBC) 3.75 x10 Normal 3.70-5.30 [facility] Comment on above: Performed By: #### 7 [id number], [id number] ####[facility] (DEFAULT)[address] [place] [address] Hematocrit (HCT) 34.4 % Normal 33.7-40.4 [facility] Comment on above: Performed By: #### 7 [id number], [id number] ####[facility] (DEFAULT)[address] [place] [address] Hemoglobin mass conc (Bld) 11.0 g/dL Low 11.3-15.9 [facility] Comment on above: Performed By: #### 7 [id number], [id number] ####[facility] (DEFAULT)[address] [place] [address] Man Diff? Auto Normal [facility] Comment on above: Performed By: #### 7 [id number], [id number] ####[facility] (DEFAULT)[address] [place] [address] MCH 29 pg Normal 24-34 [facility] Comment on above: Performed By: #### 7 [id number], [id number] ####[facility] (DEFAULT)[address] [place] [address] MCHC mass conc (RBC) 32 g/dL Normal 26-37 [facility] Comment on above: Performed By: #### 7 [id number], [id number] ####[facility] (DEFAULT)[address] [place] [address] MCV 92 fL Normal 81-100 [facility] Comment on above: Performed By: #### 7 [id number], [id number] ####[facility] (DEFAULT)[address] [place] [address] Platelet mean volume (PMV) 11.7 fL High 6.3-10.2 [facility] Comment on above: Performed By: #### 7 [id number], [id number] ####[facility] (DEFAULT)[address] [place] [address] Platelets 204 x10 Normal 138-427 [facility] Comment on above: Performed By: #### 7 [id number], [id number] ####[facility] (DEFAULT)[address] [place] [address] WBC (Leukocytes) 11.4 x10 High 3.5-10.5 [facility] Comment on above: Performed By: #### 7 [id number], [id number] ####[facility] (DEFAULT)[address] [place] [address] Education Noteon 12-05-2017 Education Note Education MaterialsGastroenterology [...] Reviewed: 02/20/2016Elsevier Interactive Patient Education ? 2017 [employer] Normal [facility] Inpatient Clinical Summaryon 12-05-2017 Inpatient Clinical [facility]OUTHClinical Discharge SummaryPERSON INFORMATIONName CHLOE AGARWAL Age 62 Years 59Sex FEMALE Language Estonian PCP Agus MCGHEE Status [id number] Acct# Arrival 12/04/17 03:05:00Visit Reason APPENDICITIS Acuity LOS 000 34:38Address:[address] [facility] [id number]:PROVIDER INFORMATIONVITALS INFORMATIONVital Sign Triage LatestTemp Oral 36.8 DegC 36.4 DegCTemp TemporalTemp IntravascularTemp AxillaryTemp [id number] Sat 99 % 99 %Respiratory Rate 16 br/min 18 br/minPeripheral Pulse Rate 79 bpm 60 bpmApical Heart Rate 76 bpm 60 bpmBlood Pressure 138 mmHg / 86 mmHg 97 mmHg / 59 mmHgComment:MEDICAL INFORMATIONAllergy Info:Allergies sulfonamidePrescriptions Given:Home Meds Displayacetaminophen-hydr ocodone (Delmita 7.5 mg-325 mg oral tablet) 1 tab(s), [...] hours as needed for for painacetaminophen-hydroco done (Delmita 7.5 mg-325 mg oral tablet) 1 tab(s) [...] range between ( 1.3 and 2.9 ) Winkler Abs#: 0.9 x103/mcL -- Normal range between ( 0.0 and 0.8 ) Auto Baso %: 0.1 % -- Normal range between ( 0.2 and 2.0 ) Auto Winkler %: 8 % -- Normal range between [...] INFORMATIONInstructions:A ppendicitisFollow up:With: Address: When:Adryan Yoon MD [address] [place] [address], [place] [address] Business (1)DIAGNOSIS1:Acute appendicitisPROBLEMSProbl ems Active Arthritis Heart murmur HeartburnComment:PHYS DOC NOTES Normal [facility] Inpatient Patient Summaryon 12-05-2017 Inpatient [place] [address] patient Discharge InstructionsName: CHLOE AGARWALDOB: [birth year] Address: [address] [place] [address] Care Provider:Name: VICK MCGHEEPhone: After you are discharged if you find you have any questions, please, call [phone] ext [phone] to speak to a nurse.Discharge Diagnosis: 1:Acute [...] education materials:Follow-up InstructionsWith: Address: When:Adryan Yoon MD [address] [place] [id number] Business (1)MedicationsDuring the course of your visit, your medication list was updated with the most current information. The details of those changes are reflected below:Medications to Continue That Have Not ChangedOther Medicationsacetaminophen- hydrocodone (Delmita 7.5 mg-325 mg oral tablet) 1 tab(s) [...] that you can keep with you.acetaminophen-hydroco done (Delmita 7.5 mg-325 mg oral tablet) 1 tab(s) [...] Reviewed: 02/20/2016[employer] Interactive Patient Education ? 2017 [employer].Viruses or BacteriaWhat?s got you sick?Antibiotics only treat [...] for Disease Control and Prevention June 2014 [facility] Progress Note - Nurseon 02- Pulse (Heart Rate) Pt. reports abd pain [...] Pt. calm.[Electronically Signed on: 12/05/2017 09:52 EST] MainSim leiva RN[Verified on: 12/05/2017 09:52 EST] Sim Luong RN [facility] Progress Note - Nurse Pt walking the sach[place] lway with RN, 200 ft, standby assist. Pt is steady. No c/o SOB or dizziness. Bilateral upper and lower abdominal pain 3/10, prn norco administered as ordered. Will continue to monitor, call light in reach.[Electronically Signed on: 12/05/2017 05:50 EST] Serina Cross[Verified on: 12/05/2017 05:50 EST] Serina Cross [facility] Progress Note - Nurse Pt is a/o [...] EST] Serina Cross[Verified on: 12/04/2017 23:39 EST] Serina Cross [facility] Anesthesia Noteon 12-04-2017 Anesthesia Note Patient: CHLOE AGARWAL : 62 years Sex: FEMALE : 59Associated Diagnoses: NoneAuthor: Fernie Sandoval DOPostoperative InformationPost Operative Note: Post Anesthesia Care Unit.Review / ManagementCondition: Stable.AssessmentAnesthet ic outcomeNo anesthetic complications noted.PlanTransfer/ Discharge: Patient can be discharged from PACU when criteria met.Condition good.[Electronically Signed on: 12/04/2017 15:01 EST] Fernie Carver DO[Verified on: 12/04/2017 15:01 EST] Fernie Carver DO [facility] Anesthesia Note Patient: CHLOE AGARWAL : 62 [...] 400 mg = 2 cap(s), PRN, PO, [id number] 20 mg oral delayed release capsule 20 mg = 1 cap(s), PO, DailyProblem list (past medical history):All ProblemsAlteration in comfort: pain / SNOMED CT 83718094 / ConfirmedArthritis / SNOMED CT 8563323 / ConfirmedHeart murmur / SNOMED CT 499958312 / ConfirmedHeartburn / SNOMED CT 64046083 / ConfirmedResolved: Kidney stones / SNOMED CT 909615866Dbsxfhyi: History of renal stent / SNOMED CT 4546454646Hvalkwzh: Acute appendicitis / SNOMED CT 470095212XkhbwdkinTbuoqr History:DementiaFatherLiv er massSisterCHF (congestive heart failure)MotherFatherProce dure history:History of right total knee replacement (089875501381448).History of left total knee replacement (391319731042330).Tonsill ectomy (456813898).Removal of ureteral stent (314397613).History of ureteral stent placement (9957050938).Social History Alcohol Assessment Use: Never. Tobacco Assessment Never (less than 100 in lifetime) Tobacco Use:. Substance Abuse Assessment Substance use: Never. 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 Home/Environment Assessment Lives with Children, Spouse. Living situation: Home/Independent. Nutrition/Health Assessment Regular, Caffeine intake amount: Hot tea in the morning..Social & Psychosocial CkbfcuVppnvwa35/16/2018 Alcohol Use: NeverEmployment/Sdbiml65 Status: Self employed Description: Office workHome/Drnipilevsd88/16 /2018 Lives with: Children, Spouse Living situation: Home/IndependentNutrition /Mwiymk4212/04/2017 Type of diet: Regular Caffeine intake amount: Hot tea in the morningSubstance Abuse12/04/2017 Substance use: NdlvvPamdcuw23/16/2018 Smoking tobacco use: Never (less than 100 in l.Physical ExaminationVS/Measurement sMeasurements from flowsheet : Nqbkgnucaqys66/16/18 03:09 EST Height 152.400 cm Height/Length Dosing 152.400 cm Weight 71.200 kg Weight Dosing 71.200 kg Body Mass Index 30.660 kg/m2,Vital Signs (last 24 hrs) Last ChartedTemp Oral 36.7 DegC (DEC 04 07:00)Heart Rate Peripheral 76 bpm (DEC 04 07:00)Resp Rate 18 br/min (DEC 04 07:00)SBP 123 mmHg (DEC 04:00)DBP 77 mmHg (DEC 04:00)SpO2 99 % (DEC 04:)Weight 71.200 kg (DEC 04 03:09)Height 152.40 cm (DEC 04 03:09)General: Alert and oriented, No acute distress.Airway: Mallampati classification: II (soft palate, fauces, uvula visible). Temporomandibular joint mobility: Good. Mouth: Teeth ( [place] ). Neck: Non-tender, Full range of motion.Respiratory: [...] on: 12/04/2017 08:38 EST] Fernie Carver DO Normal [facility] History and Physicalon 12-04 History and Physical DATE OF ADMISSION: 12/04/17 MEDICAL HISTORYCHIEF COMPLAINT: Right lower quadrant abdominal pain.HISTORY OF PRESENT ILLNESS: The patient is a 62-year-old woman withabdominal pain. She presented to the emergency department at [facility]. A CT scan of the abdomen and pelvis was obtained which wasconsistent with acute appendicitis. Due to personal reasons, she did notwant the [facility] performed at [facility] and as a result, shewanted to be transferred [facility] [...] to undergo the procedure.Adryan Yoon M.D.JOB #: [id number]: 12/04/2017T: 12/04/2017[Electronically Signed on: 12/04/2017 07:16 EST] Adryan Yoon MD[Verified on: 12/04/2017 07:16 EST] Adryan Yoon MD[Transcribed on: 12/04/2017 06:52 EST][facility] MAGR Intraoperative Recordon 12-04-2017 MAGR Intraoperative Record MAGR Intra-Op Record Summary Primary Physician: Adryna Yoon MD Finalized Date/Time: 12/04/17 15:26:26 Pt. Name: ANYCHLOE/Sex: 1955 FEMALE Med Rec #: [id number] Physician: Adryan Yoon MD Financial #: [id number] Pt. Type: D Room/Bed: [facility]/1 Admit/Disch: 12/04/17 03:05:00 - Institution: Case Times [...] Role Performed Surgeon - Primary Anesthesiologist of Surveillance Analyst Record Time In 12/04/17 09:44:00 12/04/17 09:44:00 12/04/17 09:44:00 Time Out 12/04/17 10:42:00 12/04/17 10:42:00 12/04/17 10:42:00 Procedure Appendectomy Appendectomy Appendectomy Laparoscopic Laparoscopic Laparoscopic Last Modified By: Olinda Mora Cynthia M Cartier, Cynthia M 12/04/17 10:56:16 12/04/17 10:56:16 12/04/17 10:56:16 Entry 4 Entry 5 Entry 6 Case Attendee Jennifer Li BUGGY DRIVER BOARD CSFA/BUGGY DRIVER, Antonia Bah RN Role Performed Wet End Supervisor Scrub Personnel Surveillance Analyst Time In 12/04/17 09:44:00 12/04/17 09:44:00 12/04/17 [...] Count Time 12/04/17 09:50:00 Performed By BOARD CSFA/BUGGY DRIVER, YESENIA Counts Verification Final Counts Items Included in Sponges, Sharps Final Count Method Manual Final Count Final Count Status Correct Final Counts Olinda Mora, Performed By BOARD CSFA/BUGGY DRIVER, YESENIA Surgeon notified of Yes final counts status [...] Signed By: Antonia Pérez RN 12/04/17 [facility] Physician: Adryan Yoon MD Finalized Date/Time: 12/04/17 11:35:32 Pt. Name: CHLOE AGARWAL Arlen PangB./Sex: 1955 FEMALE Med Rec #: [id number] Physician: Adryan Yoon MD Financial #: [id number] Pt. Type: D Room/Bed: 229/1 Admit/Disch: 12/04/17 03:05:00 - Institution: PACU Case Times MAGR Entry 1 In PACU I 12/04/17 10:44:00 Discharge from PACU 12/04/17 11:25:00 I Last Modified By: Vernell Gunderson RN 12/04/17 11:35:30 Finalized By: Vernell Gunderson RN Document Signatures Signed By: Vernell Gunderson RN 12/04/17 11:35 [facility] Progress Note - Nurseon 11-19 Progress Note [...] pulled out into a bed. Patient c/o 03/28 upper abdominal pain that feels like a stomach ache, Morphine given IVP as ordered. Call light in reach and bed alarm on.[Electronically Signed on: 12/04/2017 04:41 EST] Liliane Rivero RN[Verified on: 12/04/2017 04:41 EST] Liliane Rivero RN [facility] Vital Signs Date Time Vital Sign Value Performing Clinician Facility 11-25-2023 09:00-0500 Body height 152.4 cm Antionette LOPEZ Work Phone: [facility] 11-25-2023 09:00-0500 Body mass index (BMI) [Ratio] 33.22 kg/m2 Antionette LOPEZ Work Phone: [facility] 11-25-2023 09:00-0500 Body weight 77.17 kg Antionette LOPEZ Work Phone: [facility] 11-25-2023 09:00-0500 Diastolic blood pressure 84 mm[Hg] Antionette LOPEZ Work Phone: [facility] 11-25-2023 09:00-0500 Systolic blood pressure 120 mm[Hg] Antionette LOPEZ Work Phone: [facility] 11-20-2023 13:11-0500 Diastolic blood pressure 81 mm[Hg] [facility] [employer] [facility] 11-20-2023 13:11-0500 Heart rate 59 /min [facility] [employer] [facility] 11-20-2023 13:11-0500 Mean blood pressure 106 mm[Hg] [facility] [employer] [facility] 11-20-2023 13:11-0500 Respiratory rate 18 /min Vicky Castillo [facility] 11-20-2023 13:11-0500 Systolic blood pressure 156 mm[Hg] Vicky Castillo [facility] 11-17-2023 11:36-0500 Diastolic blood pressure 118 mm[Hg] Landon DOUGLAS [facility] 11-17-2023 11:36-0500 Mean blood pressure 135 mm[Hg] Landon DOUGLAS [facility] 11-17-2023 11:36-0500 Systolic blood pressure 170 mm[Hg] Landon DOUGLAS [facility] 11-17-2023 11:27-0500 Blood Pressure Location Landon DOUGLAS [facility] 11-17-2023 11:27-0500 Diastolic blood pressure 107 mm[Hg] Landon DOUGLAS [facility] 11-17-2023 11:27-0500 Heart rate 68 /min Landon DOUGLAS [facility] 11-17-2023 11:27-0500 SaO2% (BldA) [Mass fraction] 98 % Landon DOUGLAS [facility] 11-17-2023 11:27-0500 Systolic blood pressure 171 mm[Hg] Landon DOUGLAS [facility] 10-26-2023 12:48-0500 Diastolic blood pressure 88 mm[Hg] Vicky Castillo [facility] 10-26-2023 12:48-0500 Heart rate 66 /min Vickyjayden Castillo [facility] 10-26-2023 12:48-0500 Mean blood pressure 106 mm[Hg] Vickyjayden Castillo [facility] 10-26-2023 12:48-0500 Respiratory rate 20 /min Vicky Anna [facility] 10-26-2023 12:48-0500 Systolic blood pressure 143 mm[Hg] Vicky Castillo [facility] 10-07-2023 09:52-0500 Heart rate 68 /min Claudio Fer [facility] 10-07-2023 09:52-0500 SaO2% (BldA) [Mass fraction] 100 % Claudio Monroe [facility] 10-07-2023 09:52-0500 Diastolic blood pressure 95 mm[Hg] Claudio Monroe [facility] 10-07-2023 09:52-0500 Mean blood pressure 113 mm[Hg] Claudio Monroe [facility] 10-07-2023 09:52-0500 Systolic blood pressure 148 mm[Hg] Claudio Monroe [facility] 10-07-2023 09:52-0500 Respiratory rate 16 /min Claudio Monroe [facility] 10-07-2023 09:45-0500 Diastolic blood pressure 94 mm[Hg] Claudio Monroe [facility] 10-07-2023 09:45-0500 Heart rate 88 /min Claudio Monreo [facility] 10-07-2023 09:45-0500 SaO2% (BldA) [Mass fraction] 100 % Claudio Monroe [facility] 10-07-2023 09:45-0500 Systolic blood pressure 178 mm[Hg] Claudio Monroe [facility] 10-07-2023 09:03-0500 Heart rate 65 /min Claudio Monroe [facility] 10-07-2023 09:03-0500 SaO2% (BldA) [Mass fraction] 98 % Claudio Monroe [facility] 10-07-2023 09:03-0500 Body temperature 97.52 [degF] Claudio Monroe [facility] 10-07-2023 09:03-0500 Diastolic blood pressure 83 mm[Hg] Claudio Monroe [facility] 10-07-2023 09:03-0500 Mean blood pressure 103 mm[Hg] Claudio Monroe [facility] 10-07-2023 09:03-0500 Systolic blood pressure 143 mm[Hg] Claudio Monroe [facility] 10-07-2023 09:03-0500 Respiratory rate 14 /min Claudio Monroe [facility] 09-22-2023 11:23-0500 Diastolic blood pressure 88 mm[Hg] Demar Valeri [facility] 09-22-2023 11:23-0500 Heart rate 60 /min Demar Valeri [facility] 09-22-2023 11:23-0500 Mean blood pressure 105 mm[Hg] Demar Valeri [facility] 09-22-2023 11:23-0500 Respiratory rate 14 /min Demar Valeri [facility] 09-22-2023 11:23-0500 Systolic blood pressure 138 mm[Hg] Demar Valeri [facility] 07-14-2023 09:26-0400 Diastolic blood pressure 78 mm[Hg] Vicky STANG [facility] 07-14-2023 09:26-0400 Mean blood pressure 101 mm[Hg] Vicky STANG [facility] 07-14-2023 09:26-0400 Systolic blood pressure 146 mm[Hg] Vicky STANG [facility] 07-14-2023 09:15-0400 Blood Pressure Location Vicky LAST [facility] 07-14-2023 09:15-0400 Diastolic blood pressure 82 mm[Hg] Vicky LAST [facility] 07-14-2023 09:15-0400 Heart rate 67 /min Vicky LAST [facility] 07-14-2023 09:15-0400 SaO2% (BldA) [Mass fraction] 98 % Vicky LAST [facility] 07-14-2023 09:15-0400 Systolic blood pressure 148 mm[Hg] Vicky LAST [facility] 06-30-2023 15:15-0400 Diastolic blood pressure 97 mm[Hg] Landon ODUGLAS [facility] 06-30-2023 15:15-0400 Mean blood pressure 123 mm[Hg] Landon DOUGLAS [facility] 06-30-2023 15:15-0400 Systolic blood pressure 174 mm[Hg] Landon DOUGLAS [facility] 06-30-2023 15:05-0400 Blood Pressure Location Landon DOUGLAS [facility] 06-30-2023 15:05-0400 Diastolic blood pressure 98 mm[Hg] Landon DOUGLAS [facility] 06-30-2023 15:05-0400 Heart rate 80 /min Lanodn DOUGLAS [facility] 06-30-2023 15:05-0400 SaO2% (BldA) [Mass fraction] 99 % Landon DOUGLAS [facility] 06-30-2023 15:05-0400 Systolic blood pressure 166 mm[Hg] Landon DOUGLAS [facility] 06-08-2023 08:21-0400 Diastolic blood pressure 94 mm[Hg] Vicky Castillo [facility] 06-08-2023 08:21-0400 Heart rate 62 /min Vicky Castillo [facility] 06-08-2023 08:21-0400 Respiratory rate 16 /min Vikcy Castillo [facility] 06-08-2023 08:21-0400 Systolic blood pressure 156 mm[Hg] Vicky Castillo [facility] 06-05-2023 10:45-0400 Diastolic blood pressure 70 mm[Hg] Prasad Avalos [facility] 06-05-2023 10:45-0400 Heart rate 70 /min Prasad Avalos [facility] 06-05-2023 10:45-0400 Mean blood pressure 97 mm[Hg] Prasad Avalos [facility] 06-05-2023 10:45-0400 Respiratory rate 20 /min Prasad Avalos [facility] 06-05-2023 10:45-0400 SaO2% (BldA) [Mass fraction] 96 % Prasad Avalos [facility] 06-05-2023 10:45-0400 Systolic blood pressure 152 mm[Hg] Prasad Infantee [facility] 06-05-2023 09:25-0400 Diastolic blood pressure 70 mm[Hg] Prasad Avalos [facility] 06-05-2023 09:25-0400 Heart rate 71 /min Prasad Avalos [facility] 06-05-2023 09:25-0400 Mean blood pressure 96 mm[Hg] Prasad Avalos [facility] 06-05-2023 09:25-0400 Respiratory rate 17 /min Prasad Avalos [facility] 06-05-2023 09:25-0400 SaO2% (BldA) [Mass fraction] 99 % Prasad Infantee [facility] 06-05-2023 09:25-0400 Systolic blood pressure 147 mm[Hg] Prasad Infantee [facility] 06-05-2023 08:54-0400 gluc 109 mg/dL Prasad Infantee [facility] 06-05-2023 08:54-0400 gluc Prasad Avalos [facility] 06-05-2023 08:47-0400 Body temperature 98.06 [degF] Prasad Avalos [facility] 06-05-2023 08:47-0400 Diastolic blood pressure 106 mm[Hg] Prasad Avalos [facility] 06-05-2023 08:47-0400 Heart rate 81 /min Prasad Avalos [facility] 06-05-2023 08:47-0400 Respiratory rate 20 /min Prasad Avalos [facility] 06-05-2023 08:47-0400 SaO2% (BldA) [Mass fraction] 97 % Prasad Avalos [facility] 06-05-2023 08:47-0400 Systolic blood pressure 173 mm[Hg] Prasad Avalos [facility] 04-28-2023 09:05-0400 Diastolic blood pressure 87 mm[Hg] Vicky LAST [facility] 04-28-2023 09:05-0400 Mean blood pressure 111 mm[Hg] Vickyjayden MCDOWELLG [facility] 04-28-2023 09:05-0400 Systolic blood pressure 160 mm[Hg] Vickyjayden MCDOWELLG [facility] 04-28-2023 08:55-0400 Blood Pressure Location Vickyjayden MCDOWELLG [facility] 04-28-2023 08:55-0400 Diastolic blood pressure 88 mm[Hg] Vickyjayden MCDOWELLG [facility] 04-28-2023 08:55-0400 Heart rate 66 /min Vickyjayden MCDOWELLG [facility] 04-28-2023 08:55-0400 SaO2% (BldA) [Mass fraction] 97 % Vickyjayden LAST [facility] 04-28-2023 08:55-0400 Systolic blood pressure 153 mm[Hg] Vickyjayden MCDOWELLG [facility] 04-20-2023 13:54-0400 Diastolic blood pressure 89 mm[Hg] Demar Valeri [facility] 04-20-2023 13:54-0400 Diastolic blood pressure 84 mm[Hg] Demar Valeri [facility] 04-20-2023 13:54-0400 Heart rate 72 /min Demar Valeri [facility] 04-20-2023 13:54-0400 Heart rate 62 /min Demar Valeri [facility] 04-20-2023 13:54-0400 Mean blood pressure 112 mm[Hg] Demar Valeri [facility] 04-20-2023 13:54-0400 Respiratory rate 14 /min [facility] [facility] 04[facility]2023 13:54-0400 Systolic blood pressure 159 mm[Hg] Demar Trammell [facility] 04-20-2023 13:54-0400 Systolic blood pressure 147 mm[Hg] Demar Trammell [facility] 04-03-2023 10:40-0400 Diastolic blood pressure 62 mm[Hg] NILL [facility] 04-03-2023 10:40-0400 Heart rate 69 /min NILL [facility] 04-03-2023 10:40-0400 Respiratory rate 32 /min NILL [facility] 04-03-2023 10:40-0400 SaO2% (BldA) [Mass fraction] 96 % NILL [facility] 04-03-2023 10:40-0400 Systolic blood pressure 100 mm[Hg] NILL [facility] 04-03-2023 10:30-0400 Diastolic blood pressure 56 mm[Hg] NILL [facility] 04-03-2023 10:30-0400 Heart rate 65 /min NILL [facility] 04-03-2023 10:30-0400 Respiratory rate 20 /min NILL [facility] 04-03-2023 10:30-0400 SaO2% (BldA) [Mass fraction] 95 % NILL [facility] 04-03-2023 10:30-0400 Systolic blood pressure 93 mm[Hg] NILL [facility] 04-03-2023 10:25-0400 Diastolic blood pressure 59 mm[Hg] NILL [facility] 04-03-2023 10:25-0400 Heart rate 69 /min NILL [facility] 04-03-2023 10:25-0400 Respiratory rate 17 /min NILL [facility] 04-03-2023 10:25-0400 SaO2% (BldA) [Mass fraction] 94 % NILL [facility] 04-03-2023 10:25-0400 Systolic blood pressure 102 mm[Hg] NILL [facility] 04-03-2023 10:20-0400 Blood Pressure Location NILL [facility] 04-03-2023 10:15-0400 Blood Pressure Location NILL [facility] 04-03-2023 10:15-0400 Body temperature 96.8 [degF] NILL [facility] 04-03-2023 09:47-0400 Respiratory rate 18 /min NILL [facility] 04-03-2023 09:24-0400 Blood Pressure Location NILL [facility] 04-03-2023 09:24-0400 Body temperature 96.8 [degF] NILL [facility] 03-17-2023 11:37-0400 Heart rate 78 /min Demar Trammell [facility] 03-17-2023 11:37-0400 SaO2% (BldA) [Mass fraction] 98 % Demar Trammell [facility] 03-17-2023 11:37-0400 Diastolic blood pressure 63 mm[Hg] Demar Valeri [facility] 03-17-2023 11:37-0400 Mean blood pressure 87 mm[Hg] Demar Valeri [facility] 03-17-2023 11:37-0400 Systolic blood pressure 136 mm[Hg] Demar Valeri [facility] 03-17-2023 11:33-0400 Diastolic blood pressure 114 mm[Hg] Demar Valeri [facility] 03-17-2023 11:33-0400 Heart rate 91 /min Demar Valeri [facility] 03-17-2023 11:33-0400 Respiratory rate 14 /min Demar Valeri [facility] 03-17-2023 11:33-0400 SaO2% (BldA) [Mass fraction] 99 % Demar Valeri [facility] 03-17-2023 11:33-0400 Systolic blood pressure 156 mm[Hg] Demar Valeri [facility] 03-17-2023 10:56-0400 Heart rate 89 /min Demar Valeri [facility] 03-17-2023 10:56-0400 SaO2% (BldA) [Mass fraction] 100 % Demar Valeri [facility] 03-17-2023 10:56-0400 Diastolic blood pressure 87 mm[Hg] Demar Valeri [facility] 03-17-2023 10:56-0400 Mean blood pressure 104 mm[Hg] Demar Valeri [facility] 03-17-2023 10:56-0400 Systolic blood pressure 138 mm[Hg] Demar Valeri [facility] 03-17-2023 10:56-0400 Body temperature 98.06 [degF] Demar Valeri [facility] 03-17-2023 10:56-0400 Respiratory rate 12 /min Demar Valeri [facility] 02-23-2023 12:32-0400 Diastolic blood pressure 97 mm[Hg] Demar Valeri [facility] 02-23-2023 12:32-0400 Heart rate 62 /min Demar Valeri [facility] 02-23-2023 12:32-0400 Mean blood pressure 115 mm[Hg] Demar Valeri [facility] 02-23-2023 12:32-0400 Respiratory rate 12 /min Demar Valeri [facility] 02-23-2023 12:32-0400 Systolic blood pressure 150 mm[Hg] Demar Valeri [facility] 02-20-2023 13:22-0400 Blood Pressure Location [facility]ILL [facility] [place] 02-20-2023 13:22-0400 Diastolic blood pressure 84 mm[Hg] [facility] [place] 02-20-2023 13:22-0400 Heart rate 72 /min [facility] [place] 02-20-2023 13:22-0400 Respiratory rate 16 /min [facility] [place] 02-20-2023 13:22-0400 Systolic blood pressure 122 mm[Hg] N[facility] [place] 04-29-2022 09:28-0400 Blood Pressure Location Vicky LAST [facility] 04-29-2022 09:28-0400 Diastolic blood pressure 71 mm[Hg] Vicky LAST [facility] 04-29-2022 09:28-0400 Heart rate 73 /min Vicky LAST [facility] 04-29-2022 09:28-0400 Respiratory rate 18 /min Vicky LAST [facility] 04-29-2022 09:28-0400 SaO2% (BldA) [Mass fraction] 99 % Vicky LAST [facility] 04-29-2022 09:28-0400 Systolic blood pressure 106 mm[Hg] Vicky LAST [facility] Encounters Encounter Date Encounter Type Care Provider Facility Start: 11-30-2023 Clinisync Result Encounter Antionette LOPEZ Work Phone: [facility] Unsolicited Start: 11-30-2023 Clinisync Result Encounter Antionette LOPEZ Work Phone: [facility] Unsolicited Start: 11-25-2023 Clinisync Result Encounter Antionette LOPEZ Work Phone: [facility] Unsolicited Start: 11-25-2023 Clinisync Result Encounter Antionette LOPEZ Work Phone: [facility] Unsolicited Start: 11-25-2023 End: 11-25-2023 ambulatory ANTIONETTE YANG Not Available Start: 11-25-2023 End: 11-25-2023 Patient encounter procedure Antionette LOPEZ Work Phone: [facility] Work Phone: Start: 11-25-2023 End: 11-25-2023 Periodic preventive med est patient 65yrs& older Antionette LOPEZ Work Phone: [facility] Comment on above: Well woman exam with routine gynecological exam; Breast cancer screening by mammogram; Other osteoporosis, unspecified pathological fracture presence (CMS/HCC); Restless legs; Well woman exam Start: 11-20-2023 End: 11-21-2023 ambulatory Vicky Castillo Facility:[facility] Start: 11-20-2023 End: 11-20-2023 Pain Management Vicky Castillo [facility] Start: 11-17-2023 End: 11-18-2023 ambulatory XXXX NONE Facility:[facility] Start: 11-17-2023 End: 11-17-2023 Patient encounter procedure Landon DOUGLAS [facility] Start: 10-26-2023 End: 10-27-2023 ambulatory Vicky Castillo Facility:[facility] Start: 10-26-2023 End: 10-26-2023 Patient encounter procedure Vicky Castillo [facility] Start: 10-26-2023 End: 10-26-2023 Pain Management Vicky Castillo [facility] Start: 10-07-2023 End: 10-08-2023 ambulatory Claudio Monroe Facility:[facility] Start: 10-07-2023 End: 10-07-2023 Pain Management Claudio Monroe [facility] Start: 09-22-2023 End: 09-23-2023 ambulatory Vick Mcghee Facility:[facility] Start: 09-22-2023 End: 09-22-2023 Pain Management Demar Trammell [facility] Start: 09-15-2023 End: 09-15-2023 ambulatory THIERRY VILLALOBOS Not Available Start: 08-06-2023 End: 08-07-2023 ambulatory Barry Husain Facility:[facility] Start: 08-06-2023 End: 08-06-2023 Patient encounter procedure Barry Husain [facility] Start: 07-23-2023 End: 07-24-2023 ambulatory Landon J MISAEL Facility:[facility] Start: 07-14-2023 End: 07-15-2023 ambulatory XXXX NONE Facility:[facility] Start: 07-14-2023 End: 07-14-2023 Hypertension screening status Vicky LAST [facility] Start: 07-14-2023 End: 07-14-2023 Patient encounter procedure Vicky LAST [facility] Start: 06-30-2023 End: 07-01-2023 ambulatory XXXX NONE Facility:[facility] Start: 06-30-2023 End: 06-30-2023 Patient encounter procedure Landon Mckinley MISAEL [facility] Start: 06-08-2023 End: 06-09-2023 ambulatory Vick Crkarel Facility:[facility] Start: 06-08-2023 End: 06-08-2023 Pain Management Vicky Castillo [facility] Start: 06-05-2023 End: 06-05-2023 Emergency department patient visit Prasad Avalos Facility:[facility] Start: 06-05-2023 End: 06-05-2023 Emergency department patient visit Prasad Avalos [facility] Start: 05-04-2023 End: 05-05-2023 ambulatory Vicky Castillo Facility:[facility] Start: 05-04-2023 End: 05-04-2023 Pain Management Vicky Castillo [facility] Start: 04-28-2023 End: 04-29-2023 ambulatory XXXX NONE Facility:[facility] Start: 04-28-2023 End: 04-28-2023 Patient encounter procedure Vicky LAST [facility] Start: 04-20-2023 End: 04-21-2023 ambulatory MD Demar Trammell Facility:[facility] Start: 04-20-2023 End: 04-20-2023 Pain Management Demar Trammell [facility] Start: 04-15-2023 End: 04-16-2023 ambulatory Michael ALBRIGHT Facility: [facility] Start: 04-15-2023 End: 04-15-2023 Patient encounter procedure Michael ALBRIGHT General Surgery [facility] Start: 04-07-2023 End: 04-08-2023 ambulatory MD Demar Trammell Facility:[facility] Start: 04-03-2023 End: 04-03-2023 ambulatory Michael ALBRIGHT Facility:[facility] Start: 04-03-2023 End: 04-03-2023 Patient encounter procedure Michael ALBRIGHT [facility] Start: 03-17-2023 End: 03-18-2023 ambulatory MD Demar Trammell Facility:[facility] Start: 03-17-2023 End: 03-17-2023 Pain Management Demar Trammell [facility] Start: 03-03-2023 End: 03-04-[address] VICK MCGHEE . Facility: Start: 02-23-2023 End: 02-24-2023 ambulatory Vick Mcghee Facility:[facility] Start: 02-23-2023 End: 02-23-2023 Pain Management Demar Trammell [facility] Start: 02-20-2023 End: 02-21-2023 ambulatory Michael Billingsley JOSE RAMON Facility:[facility] Start: 02-20-2023 End: 02-20-2023 Patient encounter procedure Michael Billingsley [facility]UNC[facility]Priy[facility] Start: 02-09-2023 End: 02-10-[address] VICK MCGHEE . Facility:[facility] Start: 11-05-2022 End: 11-05-[address] VICK MCGHEE . Facility:[facility] Start: 10-27-2022 End: 10-27-2022 Patient encounter procedure Vicky LAST [facility] Start: 10-22-2022 End: 10-23-[address] JUAN CARLOS GIFFORD . Facility:[facility] Start: 09-24-2022 End: 09-24-[address] JUAN CARLOS GIFFORD . Facility: Start: 04-29-2022 End: 04-29-2022 Patient encounter procedure Vicky LATS [facility] Start: 12-05-2017 End: 04-15-2018 Ambulatory Adryan Yoon Facility:[facility] Procedures Date Procedure Procedure Detail Performing Clinician Start: 11-30-2023 ALL LIPID PROFILE (FASTING) Antionette LOPEZ Work Phone: Start: 11-30-2023 ALL THYROID STIM HORMONE Antionette LOPEZ Work Phone: Start: 11-30-2023 [facility] CMP (CMP) (FOR REMOTE [facility] USE) Antionette LOPEZ Work Phone: Start: 11-30-2023 Mammography Antionette LOPEZ Work Phone: Start: 11-25-2023 IGP,APTIMA HPV,AGE GDLN Antionette LOPEZ Work Phone: Start: 12-20-2023 Injection of nerve root of lumbar spine using fluoroscopic guidance Vicky Castillo Comment on above: right L5/S1 TFESI- 50% relief x 3 days t hen no relief Start: 04-20-2023 Injection of steroid into hip joint Vicky Castillo Comment on above: Right Hip Bursa Injection-50% relief Start: 04-03-2023 Colonoscopy Antionette LOPEZ Work Phone: Start: 04-03-2023 Colonoscopy Michael ALBRIGHT Start: 04-03-2023 Esophagogastroduodenoscopy Michael ALBRIGHT Start: 03-17-2023 Injection of nerve root of lumbar spine using fluoroscopic guidance Michael ROLANDPriyank Comment on above: 75% relief Start: 10-22-2022 Mammography Antionette LOPEZ Work Phone: Start: 09-17-2021 Cardiac catheterization Vicky LAST Start: 04-01-2021 Esophagogastroduodenoscopy Vicky LAST Start: 10-19-2017 Appendectomy Vicky LAST Start: 10-19-1961 Tonsillar structure (palatine) (body structure) Vicky LAST Comment on above: Tonsilectomy Arthroplasty of knee ASUNCIONPriyank Esophagogastroduodenoscopy A maicol SHALA Comment on above: during early 40s Knee region structur e (body structure) Vicky LAST Comment on above: Knee replacement x 2 Tonsillectomy and adenoidectomy ASUNCIONPriyank Ureterorenoscopy wit h fragmentation and removal of calculus of kidney Vicky LAST Plan of Treatment Date Care Activity Detail Author Start: 04-03-2033 Screening for malign ant neoplasm of colon [facility] Start: 11-30-2024 Screening for malign ant neoplasm of breast Mammogram [facility] Start: 11-28-2024 End: 11-28-2024 Patient encounter procedure 11/28/2024 9:00 AM EST Office Visit [facility] [address] [place] [id number] Antionette Yang PA [address] [place] [address] [facility] Start: 11-25-2023 End: 11-25-2024 Lipid 1996 panel - Serum or Plasma Lipid panel Lab Routine Well woman exam with routine gynecological exam Well woman exam Expected: 11/25/2023 (Approximate), Expires: 11/25/2024 [facility] Comment on above: Expected: 11/25/2023 (Approximate), Expires: 11/25/2024 Start: 11-25-2023 End: 01-23-2025 MG Breast - bilateral Screening Bilateral screening mammogram Imaging Routine Breast cancer screening by mammogram Expected: 11/25/2023, Expires: 01/23/2025 [facility] Work Phone: Comment on above: Expected: 11/25/2023 , Expires: 01/23/2025 Start: 10-22-2023 Screening for malign ant neoplasm of breast Mammogram [facility] Start: 06-19-2023 Influenza vaccination Influenza Vacc ine (#1) [facility] Start: 2022 Pneumococcal Vaccine : 65+ Years (1 - PCV) Pneumococcal Vaccine: 65+ Years (1 - PCV) [facility] Start: 1955 Screening for malign ant neoplasm of colon [facility] CBC W Auto Different ial panel - Blood CBC and differential Lab Routine Well woman exam with routine gynecological exam Well woman exam Ordered: 11/25/2023 [facility] Comment on above: Ordered: 11/25/2023 Comprehensive metabo lic 2000 panel - Serum or Plasma Comprehensive metabolic panel Lab Routine Well woman exam with routine gynecological exam Well woman exam Ordered: 11/25/2023 [facility] Comment on above: Ordered: 11/25/2023 Hemoglobin A1c measurement Hemoglobin A1c Lab Routine Well woman exam with routine gynecological exam Well woman exam Ordered: 11/25/2023 [facility] Comment on above: Ordered: 11/25/2023 THIN PREP TIS PAP AN D HR HPV DNA THIN PREP TIS PAP AND HR HPV DNA Pathology and Cytology Routine Well woman exam with routine gynecological exam Ordered: 11/25/2023 [facility] Comment on above: Ordered: 11/25/2023 Thyrotropin [Units/volume] in Serum or Plasma TSH Lab Routine Well woman exam with routine gynecological exam Well woman exam Ordered: 11/25/2023 [facility] Comment on above: Ordered: 11/25/2023 Immunizations Immunization Date Immunization Notes Care Provider [facility] 07-23-2021 SARS-CoV-2 (COVID-19 ) mRNA BNT-162b2 vax NILL [facility] 07-02-2021 SARS-CoV-2 (COVID-19 ) mRNA BNT-162b2 vax NILL [facility] 02-22-2021 zoster vaccine recombinant Antionette LOPEZ Work Phone: [facility] 11-12-2020 zoster vaccine recombinant Antionette LOPEZ Work Phone: [facility] NEGATED: Highlighted row has not occurred!12-25-2021 influenza virus vaccine, unspecified formulation Vicky LAST [facility] NEGATED: Highlighted row has not occurred!10-16-2021 influenza virus vaccine, unspecified formulation Vicky LAST [facility] Payers Date Payer Category Payer Unknown AARP AARP [id number] 2022-Present [address] [place] [address] [id number] 2022 Medicare MEDICARE MEDICAR E PART B [id number] 2022-Present [address] [address] [place] [address] Medicare [id number] 2017 Unknown [id number] 1959 Medicare [id number] 1959 Unknown [id number] 1957 Unknown [id number] 2.16.840.1.914967.3.579.2.593 1957 Unknown [id number] 2.16.840.1.085635.3.579.2.593 1957 Unknown [id number] 2.16.840.1.382715.3.579.2.593 1957 Unknown [id number] 2.16.840.1.519083.3.579.2.593 1957 Unknown [id number] 2.16.840.1.197011.3.579.2.593 1957 Unknown [id number] 2.16.840.1.573615.3.579.2.727 1957 Unknown [id number] 2.16.840.1.448437.3.579.2.727 1957 Unknown [id number] 2.16.840.1.744992.3.579.2.727 1957 Unknown [id number] 2.16.840.1.727609.3.579.2.727 1957 Unknown [id number] 2.16.840.1.822483.3.579.2.727 1957 Unknown [id number] 2.16.840.1.537901.3.579.2.727 1957 Unknown [id number] 2.16.840.1.256733.3.579.2.727 1957 Unknown [id number] 2.16.840.1.629048.3.579.2.727 1957 Unknown [id number] 2.16.840.1.866970.3.579.2.72 1957 Unknown [id number] 2.16.840.1.457835.3.579.2.727 1957 Unknown [id number] 2.16.840.1.463121.3.579.2.727 1957 Unknown [id number] 2.16.840.1.643328.3.579.2.727 1957 Unknown [id number] 2.16.840.1.554072.3.579.2.727 1957 Unknown [id number] 2.16.840.1.331256.3.579.2.727 1957 Unknown [id number] 2.16.840.1.891961.3.579.2.727 1957 Unknown [id number] 2.16.840.1.422005.3.579.2.727 1957 Unknown [id number] 2.16.840.1.645653.3.579.2.727 1957 Unknown [id number] 2.16.840.1.523986.3.579.2.727 1957 Unknown [id number] 2.16.840.1.720051.3.579.2.727 1957 Unknown [id number] 2.16.840.1.371862.3.579.2.727 1957 Unknown [id number] 2.16.840.1.999531.3.579.2.727 1957 Unknown [id number] 2.16.840.1.449893.3.579.2.1259 1957 Unknown [id number] 2.16.840.1.363556.3.579.2.1259 Social History Date Type Detail Facility Start: 12-25-2021 End: 05-20-2023 Tobacco smoking status Never smoked tobacco (finding) [facility] Comment on above: [facility] Start: 09-15-2023 End: 11-24-2023 Sex Assigned At Female [facility] Tobacco smoking status Never [facility] [place] Comment on above: Denies. Tobacco [facility] Comment on above: denies Tobacco smoking status No Smokin g Status Entered [facility] Start: 05-20-2023 Tobacco use and exposure Smokeless [...] Sex Assigned At Not on file N [facility] Functional Status Date Assessment Result Facility 11-20-2023 Functional Status N/A [facility] 11-17-2023 Functional Status No [facility] 10-26-2023 Functional Status N/A [facility] 10-07-2023 Functional Status N/A [facility] 09-22-2023 Functional Status N/A [facility] 07-14-2023 Functional Status No [facility] 06-30-2023 Functional Status No [facility] 06-08-2023 Functional Status N/A [facility] 06-05-2023 Functional Status N/A [facility] 05-04-2023 Functional Status N/A [facility] 04-28-2023 Functional Status No [facility] 04-20-2023 Functional Status N/A [facility] 04-03-2023 Functional Status N/A [facility] 03-17-2023 Functional Status N/A [facility] 02-23-2023 Functional Status N/A [facility] 02-20-2023 Functional Status N/A [facility] 04-29-2022 Functional Status N/A [facility] Clinical Notes 10-08-2021 to 11-25-2023 JESSICA Hunt - 11/25/2023 9:00 AM EST Note Date & Type Note Facility 11-25-2023 History of Presen t illness Narrative Reason for Appointment: Patient ID: Chloe Agarwal is a 68 y.o. female who presents for Well Women Visit Patient presents today for Annual [...] History: Procedure Laterality Date FOOT SURGERY Bilateral [address] Prasad Villalobos KNEE SURGERY Bilateral Left: 2005; Right: 2015 [place] LAPAROSCOPIC APPENDECTOMY 12/04/2017 [place] REMOVAL OF KIDNEY STONE 2008 Allergies Allergen Reactions Gabapentin Headache Lisinopril Other [...] nursing note reviewed. Exam conducted with a cash controller present. Vitals: Estimated body mass index is 33.22 kg/m as calculated from the following: Height as of this encounter: 5'. Weight as of this encounter: 170 lb 1.9 oz. BP: 120/84 No LMP recorded. Patient is postmenopausal. Assessment/Plan Encounter Diagnoses Name Primary? Well woman exam with routine gynecological exam Breast cancer screening by mammogram Other osteoporosis, unspecified pathological fracture presence (CMS/HCC) Patient presents today for an annual exam. [...] of: JESSICA Hunt documented in this encounter [facility] 11-20-2023 Evaluation + Plan note Extrac nida [...] Date:12/14/2023 10:45:00 AM Scheduled Provider:Barry Husain MD Location:.Pulmonary Clinic Appointment Type:Pulmonary New Patient (FT) Appointment Date:12/18/2023 01:45:00 PM Scheduled Provider:Willie Kaur MD Location:.[facility] [place] Appointment Type:Cardiology Follow Up (FT) [facility]01-08-2024 Evaluation + Plan noteExtracted from: Title:Pain [...] 01:15:00 PM Scheduled Provider:Vicky Castillo PA-C Location:FT.Pain [facility] Appointment Type:Pain Management - Follow Up (FT) [facility]12-20-2023 Evaluation + Plan noteExtracted from: Title:Right [...] Date:10/30/2023 08:15:00 AM Scheduled Provider:Vicky Castillo PA-C Location:FT.Pain [facility] Appointment Type:Pain Management - Follow Up (FT) Appointment Date:11/17/2023 11:30:00 AM Scheduled Provider:Landon DOUGLAS MD Location:FT.Cardiology Clinic Appointment Type:Cardiology Follow Up (FT) [facility]12-20-2023 Note [id number] [facility] 10-07-2023 NoteDiagnosis: M54.16 Lumbar radiculopathy Procedure: Right [...] and agrees to comply to currently prescribed/recommended therapies.[facility] Comment on above:Result Comment: Electronically Signed By: Claudio Monroe DO.elmo\Date and Time Signed: 10/07/23 09:54 [id number] Evaluation + Plan note Extracted from: Title:FUV [...] Date:11/17/2023 11:30:00 AM Scheduled Provider:Landon DOUGLAS MD [facility] Type:[facility] Follow Up (FT) [facility]08-21-2023 Evaluation + Plan noteExtracted from: Title:Pain [...] Date:07/06/2023 11:00:00 AM Scheduled Provider:Landon DOUGLAS MD [facility] Type:Cardiology ED Follow Up (FT) [facility]08-18-2023 Evaluation + Plan noteExtracted from: Title:ED Note Author:Prasad Avalos DO Date:05/19 06/10 Dizziness (R42: Dizziness an d giddiness) Hypertension (I10: Essential (primary) hypertension) Orders: losartan, 50 mg = 1 tab(s), Oral, Daily, X 30 day(s), # 30 tab(s), Refills(s) 0, Pharmacy: [id number], 152.4, cm, 06/05/23 8:54:00 EDT, Height/Length [...] 08:15:00 AM Scheduled Provider:Vicky Castillo PA-C Location:FT.Pain [facility] Appointment Type:Pain Management - Follow Up (FT) Appointment Date:07/06/2023 11:00:00 AM Scheduled Provider:Landon DOUGLAS MD Location:FT[facility]iology [facility] Appointment Type:Cardiology ED Follow Up (FT) [facility]08-18-2023 Hospital Discharge instructions Follow Up Care 06/05/2023 08:40:51 With:Vick Mcghee Address: [address] [place] [address] Business (1) When:Within 3 Day(s) [facility]07-17-2023 Evaluation + Plan noteExtracted from: Title:Pain Managment Follow up Author:Vicky Adasm Date:05/04/23 Impression and Plan Patient is a [...] Date:06/08/2023 08:15:00 AM Scheduled Provider:Vicky Castillo PA-C Location:FT.[facility] Appointment Type:Pain Management - Follow Up (FT) [facility]06-19-2023 Note [id number]:[id number] 04-03-2023 Evaluation + Plan noteExtracted from: Title:ANES Post-operative Note - General Author: Lb Wu Jr., DO Date:04/03/23 Plan Transfer/Discharge: Transfer/Discharge Discharge when meets criteria ( From PACU to Ambulatory Surgery Unit, and To home ). Extracted from: Title:ANES Pre-operative Note - Endo Author:Lb Melendez Jr., DO Date:04/03/23 Plan [place] [employer] (ASA) physical status classification: Class III. Anesthetic Preoperative Plan: Anesthesia General, and -TIVA. Future Appointments Appointment Date:04/07/2023 11:00:00 AM Scheduled Provider:Demar Trammell MD Location:FT.[facility] Appointment Type:Pain Management - Follow Up (FT) Appointment Date:04/28/2023 09:00:00 AM Scheduled Provider:Vicky LAST CNP Location:[facility] Appointment Type:Cardiology Follow Up (FT) [facility]06-16-2023 Hospital Discharge instructions Patient Education 04/03/2023 [...] unsweetened, w/added ascorbic acid 1 cup 0.5 [place] 1 cup 0.7 Vegetables Cooked Green beans 1 cup 4.0 Carrots 1/2 cup sliced 2.3 Peas 1 cup 8.8 Potato (baked, with skin) 1 medium potato 3.8 Raw [place] (with peel) 1 cucumber 1.5 Lettuce 1 [...] 8.7 Peanuts 1/2 cup 7.9 Chart from [facility] 2013. SEEK IMMEDIATE MEDICAL CARE [...] http://www.nal.usda.gov/fnic/foodcomp/search/. Information adapted from: ExitCare Patient Information 2009 [employer]. [facility] 2012 http://[email or web address]/contents/kvqavzxcywtf-omxanzq-kswjkd-the-basics 04/03/2023 10:24:14 Colonoscopy, Care After Surgery Enio (CUSTOM) Colonoscopy Care After Surgery Please read the instructions outlined below and refer to this sheet in the next few weeks. These discharge instructions provide you with general information on caring [facility] Your doctor may also give you specific [...] reduce GERD symptoms. Medicines. These may include: ?Lijf-qnd-hqswijn antacids. ?Medicines that make your stomach empty [...] may include: ?Fatty foods, like fried foods. ?[place] fruits, like oranges or lemon. ?Other foods [...] Do not drink alcohol. General instructions Take sglf-zth-ewyicka and prescription medicines only as told by [...] provider. Document Revised: 08/19/2022 Document Reviewed: 09/05/2021 [employer] Patient Education 2022 [facility] [facility]. 04/03/2023 10:24:03 Endoscopy, Care After Procedure [facility] ([facility] Endoscopy Care After Procedure Please read the instructions outlined below and refer to this sheet in the next few weeks. These discharge instructions provide you with general information on caring for [facility] Your doctor may also give you specific [...] Document Re-Released: 03/29/2007 ExitCare Patient Information 2009 [employer]. Follow Up Care 02/23/2023 10:35:27 With:Michael ALBRIGHT Address: [address] [place], [place] [address]johanna, [address] [address]- Business (1) When:2 weeks [facility]05-30-2023 Note [id number]:127[facility] 02-23-2023 Evaluation + Plan noteExtracted from: [...] Appointments Appointment Date:04/03/2023 10:30:00 AM Scheduled Provider: Location:[facility] Appointment Type:Surgery FT Appointment Date:04/28/2023 09:00:00 AM Scheduled Provider:Vicky LAST CNP Location:.[facility] Appointment Type:Cardiology Follow Up (FT) [facility]05-05-2023 NoteChief Complaint consultation for abdominal pain [...] malignant neoplasm of colon (more content not included)...[facility] CenterComment [facility] above:Result Comment: Electronically Signed By: JOSE RAMON CANTRELL, Michael Ward\Date and Time Signed: 02/20/23 16:32 [id number] Hospital Discharge instructions Follow Up Care 10/08/2021 14:10:47 With:Landon Douglas MD Address: [address] [place] [phone] When: Unknown [facility] Future Appointments Appointment Date:11/05/2022 11:30:00 AM Scheduled Provider:Landon Douglas MD Location:[facility] Appointment Type:Cardiology Follow Up (FT) Future Scheduled Tests Laboratory* Lipid Panel 09/05/21 Radiology* Echo Transthoracic Complete 09/29/22 [facility] Future Appointments Appointment Date:11/05/2022 11:30:00 AM Scheduled Provider:Landon Douglas MD Location:[facility] Appointment Type:[facility] ([facility] Future Appointments Appointment Date:02/23/2023 12:30:00 PM Scheduled Provider:Demar Trammell MD Location:[facility] Appointment Type:Pain Management - New (FT) Appointment Date:04/28/2023 09:00:00 AM Scheduled Provider:Vicky LAST CNP Location:.[facility] Appointment Type:Cardiology Follow Up (FT) General Surgery [place] nediyor.comaluation + Plan note Future Appointments Appointment Date:04/03/2023 10:30:00 AM Scheduled Provider: Location:[facility] Appointment Type:Surgery FT Appointment Date:04/07/2023 11:00:00 AM Scheduled Provider:Demar Trammell MD Location:[facility] Appointment Type:Pain Management - Follow Up (FT) Appointment Date:04/28/2023 09:00:00 AM Scheduled Provider:Vicky LAST CNP Location:[facility] Appointment Type:[facility] ([facility] Future Appointments Appointment Date:04/20/2023 02:15:00 PM Scheduled Provider:Demar Trammell MD Location:[facility] Appointment Type:Pain Management - Office Injection (FT) Appointment Date:04/28/2023 09:00:00 AM Scheduled Provider:Vicky LAST CNP Location:[facility] Appointment Type:Cardiology Follow Up (FT) Appointment Date:05/04/2023 09:00:00 AM Scheduled Provider:Vicky Castillo PA-C Location:[facility] Appointment Type:Pain Management - Follow Up (FT) General Surgery [place] nediyor.comaluation + Plan note Future Appointments Appointment Date:04/28/2023 09:00:00 AM Scheduled Provider:Vicky LAST CNP Location:[facility] Appointment Type:Cardiology Follow Up (FT) Appointment Date:05/04/2023 09:00:00 AM Scheduled Provider:Vicky Castillo PA-C Location:[facility] [place] Appointment Type:Pain Management - Follow Up (FT[facility] Future Appointments Appointment Date:05/04/2023 09:00:00 AM Scheduled Provider:Vicky Castillo PA-C Location:[facility] [place] App[facility] Future Appointments Appointment Date:07/14/2023 09:30:00 AM Scheduled Provider:Vicky LAST CNP Location:[facility] App[facility] Type[facility] Future Appointments Appointment Date:11/17/2023 11:30:00 AM Scheduled Provider:Landon DOUGLAS MD Location:[facility] Appointment Type:Cardiology Follow Up (FT) Appointment Date:11/20/2023 01:15:00 PM Scheduled Provider:Vicky Castillo PA-C Location:[facility] [place] Appointment Type:Pain Management - [facility] (FT) [facility] Future Appointments Appointment Date:11/20/2023 01:15:00 PM Scheduled Provider:Vicky Castillo PA-C Location:[facility] [place] Appointment Type:Pain Management - Follow Up (FT) Appointment Date:12/14/2023 10:45:00 AM Scheduled Provider:Barry Husain MD Location:[facility] Appointment Type:Pulmonary New Patient (FT) Appointment Date:12/18/2023 01:45:00 PM Scheduled Provider:Willie Kaur MD Location:[facility] [place] Appointment Type:Cardiology Follow Up (FT) [facility] note* Diagnosis Well woman exam with routine gynecological exam Routine gynecological examination Breast cancer screening by mammogram Other osteoporosis, unspecified pathological fracture presence (CMS/HCC) Restless legs Restless legs syndrome (RLS) Well woman exam Routine general medical examination at a health care facility documented in this encounter [facility] Narrative No data available for this section [facility] No data available for this section [facility] No data available for this section [facility] Summary Purpose Family History No Family [...] section and content) DATE CREATED AUTHOR 04/15/2018 [facility] DATE CREATED AUTHOR AUTHOR'S ORGANIZ ATION 12/02/2021 [facility] DATE CREATED AUTHOR AUTHOR'S ORGANIZ ATION 03/04/2023 [facility] DATE CREATED AUTHOR AUTHOR'S ORGANIZ ATION 11/21/2023 [facility] DATE CREATED AUTHOR AUTHOR'S ORGANIZ ATION 11/26/2023 [facility] EPIC Care Team (unrecognized sect ion and content) [employer] Relationship Specialty Start Date End Date Vick Mcghee MD [address] [place] [address] PCP - General Family Medicine 05/21/23 [employer] Relationship Specialty Start Date End Date Vick Mcghee MD [address] [place] [address] PCP - General Family Medicine 05/21/23 [employer] 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 [facility] [employer] [facility]. provides no warranty or guarantee of the accuracy or completeness of information in this document.
[2023-12-02 10:20] LABS: Free T3 4.29 pg/mL (2.18-3.98)
== END 2023-12-02 08:49 | disposition home or self-care (01) ==
PROVIDERS: PCP Family Medicine; Visit Provider Physician Assistant
DX: R79.89 Other specified abnormal findings of blood chemistry (principal)
CPT/HCPCS: 36415; 84439; 84481

== ENCOUNTER 2023-12-31 08:38 | Outpatient (OUT) | payer MEDICARE, SELFPAY ==
--- OUTSIDE RECORDS SUMMARY | 2023-12-31 08:51 | XMS_ITS | CCD ---
Author Name Unknown Address [address] [place] [address] Organization [facility] Care Team Providers Care Business Analytics Manager Name Role Phone Adryan Yoon Unavailable Unavailable Adryan Yoon Unavailable Unavailable YARELIS MCGHEE Unavailable Unavailable Fernie Sandoval Unavailable Unavailable Yarelis Mcghee Primary Care Physician [phone] BR[address] ., DR RANGEL Admitting Unavailabl e KARОЛЕГK ., DR RANGEL Consulting Unavailabl e KARОЛЕГK ., DR RANGEL Attending Unavailabl e MISC, DR MORRISSEY Primary Care Unavailable CRY ., DR SANTOYO Primary Care Unavailable ZIEBLILIA, DR RYAN Billingsley Consulting Unavailable NILL ., [...] e ZIEBER, DR RYAN Billingsley Consulting Unavailable ANTIONETTE YANG Attending Unavailable THIERRY VILLALOBOS Attending Unavailable Yarelis Mcghee MD Primary Care Provider [phone] Vicky Castillo Attending Unavailable Hoy, Yarelis Referring Unavailable FRANCO Castillo Admitting Unavailabl e Hoy, Yarelis Referring Unavailable Vicky Castillo Attending Unavailable FRANCO Castillo Admitting Unavailabl e NONE, XXXX Referring Unavailable SHALA, DEDRICK Vicky L Attending Unavailable STANG, RN VISITING Vicky L Admitting Unavailable NONE, XXXX Referring Unavailable Landon DOUGLAS Attending Unavailable Landon DOUGLAS Admitting Unavailable NONE, XXXX Referring Unavailable Landon DOUGLAS Attending Unavailable Landon DOUGLAS Admitting Unavailable NILL, R Attending Unavailable NILL, R Attending Unavailable NONE, XXXX Referring Unavailable Willie Kaur Attending Unavaila ble NILL, R Referring Unavailable NILL, R Attending Unavailable NILL, R Admitting Unavailable MD Demar Trammell Admitting Unavailable Demar Trammell Referring Unavailable Demar Trammell Attending Unavailable Claudio Monroe Referring Unavailable Claudio Monroe Attending Unavailable Claudio Monroe Admitting Unavailable Vicky Castillo Attending Unavailable Vicky Castillo Admitting Unavailable Prasad Avalos Attending Unavailable Landon DOUGLAS Referring Unavailable Husain, Basem G. Attending Unavailable Husain, Basem G. Admitting Unavailable Husain, Basem G. Referring Unavailable Husain, Basem G. Attending Unavailable Vicky Castillo Attending Unavailable FRANCO Castillo Admitting Unavailabl e Cry, Yarelis Referring Unavailable MD Demar Trammell Admitting Unavailable Demar Trammell Attending Unavailable Nathalie, Yarelis Referring Unavailable Gilberto Mcgheelas Referring Unavailable MD Demar Trammell Admitting Unavailable Demar Trammell Attending Unavailable NONE, XXXX Referring Unavailable DEDRICK LAST L Attending Unavailable SHALA, DEDRICK Vicky L Admitting Unavailable Hoy, Yarelis Referring Unavailable Vicky Castillo Attending Unavailable FRANCO Castillo Admitting Unavailabl e Hoy, Yarelis Referring Unavailable eDmar Trammell Attending Unavailable Demar Trammell Admitting Unavailable Demar Trammell Attending Unavailable MD Demar Trammell Admitting Unavailable Cry Yarelis Referring Unavailable Allergies Allergy Classification Reported Allergen(s) Allergy Type Date of Onset Reaction(s) Facility (1 source) Sulfonamide; Translations: [sulfonamide] Propensity to adverse reactions to drug (disorder) [facility] (20 sources) Sulfonamides (Antibiotic); Translations: [sulfa drugs] Drug allergy unknown [facility] (20 sources) Lisinopril; Translations: [lisinopril] Drug Allergy Coughing - function (qualifier value) [facility] (1 source) Sulfonamides (Antibiotic) Drug allergy (disorder) [facility] Repository (17 sources) gabapentin; Translations: [gabapentin] Drug Allergy 3 Headache (finding), Headache [facility] (6 sources) Lisinopril Propensity to adverse reactions 3 [facility] (6 sources) Sulfonamides (Antibiotic) Drug Allergy 3 [facility] Medications Current Medications Medication Drug Class(es) [...] BID, # 60 cap(s), Refills(s) 0, Pharmacy: [facility], 152, cm, 05/04/23 8:55:00 EDT, Height/Length Dosing, 72.6, kg, 05/04/23 8:55:00 EDT, Weight Dosing Start Date: 05/04/23 Status: Ordered hydroCHLOROthiazide 12.5 mg oral capsule (11 sources) Thiazide Diuretic Start: 11-17-2023 take 1 capsule by mouth once daily hydrochlorothiazide 12.5 mg Cap 12.5 mg = 1 cap(s), Oral, Daily, # 30 cap(s), Refills(s) 6, Pharmacy: [facility], 152, cm, 11/17/23 11:29:00 EST, Height/Length [...] (20 sources) Angiotensin 2 Receptor Hermilo Start: 12-18-2023 take 1 tablet by mouth at bedtime losartan 100 mg Tab 100 mg = 1 tab(s), Oral, Bedtime, # 90 tab(s), Refills(s) 3, Pharmacy: [facility], 152, cm, 12/18/23 13:31:00 EST, Height/Length Dosing, 79.2, kg, 12/18/23 13:37:00 EST, Weight Dosing Start Date: 12/18/23 Status: Ordered Start: 07-14-2023 take 1 tablet by herberth th at bedtime losartan 100 mg Tab 100 mg = 1 tab(s), Oral, Bedtime, # 90 tab(s), Refills(s) 1, Pharmacy: [facility], 152, cm, 07/14/23 9:26:00 EDT, Height/Length Dosing, 76.9, kg, 07/14/23 9:26:00 EDT, Weight Dosing Start Date: 07/14/23 Status: Ordered Start: 06-30-2023 End: 07-30-2023 take 1 tablet by mouth twice daily losartan 50 mg Tab 50 mg = 1 tab(s), Oral, BID, X 30 day(s), # 60 tab(s), Refills(s) 0, Pharmacy: [facility], 152, cm, 06/30/23 15:07:00 EDT, Height/Length Dosing, 77.5, kg, 06/30/23 15:07:00 EDT, Weight Dosing Start Date: 06/30/23 Stop Date: 07/30/23 Status: Ordered Start: 06-05-2023 End: 07-05-2023 take 1 tablet by mouth once daily losartan 50 mg Tab 50 mg = 1 tab(s), Oral, Daily, X 30 day(s), # 30 tab(s), Refills(s) 0, Pharmacy: [facility], 152.4, cm, 06/05/23 8:54:00 EDT, Height/Length Dosing, 73, kg, 06/05/23 8:54:00 EDT, Weight Dosing Start Date: 06/05/23 Stop Date: 07/05/23 Status: Ordered Start: 11-05-2022 End: 10-31-2023 take 1 tablet by mouth once daily Cozaar 25 mg Tab 25 mg = 1 tab(s), Oral, Daily, stopping Lisinopril Starting Cozaar, X 90 day(s), # 90 tab(s), Refills(s) 3, Pharmacy: [facility], 152, cm, 11/05/22 11:35:00 EST, Height/Length Dosing, 76, kg, 11/05/22 11:35:00 EST, Weight Dosing Start Date: 11/05/22 Stop Date: 10/31/23 Status: Ordered losartan (Cozaar ) 25 MG tablet Take 100 mg by mouth. 0 Active magnesium oxide 400 mg oral tablet (6 sources) Start: 11-25-2023 End: 06-22-2024 take 1 tablet by mouth in the morning magnesium oxide (Mag-Ox) 400 MG tablet Indications: Restless legs Take 1 tablet (400 mg) by mouth in the morning. 30 tablet 6 11/25/2023 06/22/2024 Active meloxicam 15 mg oral tablet (1 source) Nonsteroidal Anti-inflammatory Drug Start: 12-18-2023 take 1 tablet by mouth once daily meloxicam 15 mg Tab 15 mg = 1 tab(s), Oral, Daily, # 30 tab(s), Refills(s) 0 Start Date: 12/18/23 Status: Ordered methylPREDNISolone 4 mg oral tablet (1 source) Corticosteroid Start: 09-22-2023 End: 09-28-2023 Medrol 4 mg Tab = 1 packet(s), Oral, As Directed, as directed on package labeling, X 6 day(s), # 21 tab(s), Refills(s) 0, Pharmacy: [facility], 152, cm, 09/22/23 11:39:00 EST, Height/Length [...] Daily, # 90 tab(s), Refills(s) 1, Pharmacy: [facility], 152, cm, 07/14/23 9:26:00 EDT, Height/Length Dosing, 76.9, kg, 07/14/23 9:26:00 EDT, Weight Dosing Start Date: 07/14/23 Status: Ordered Start: 11-14-2022 take 1 tablet by herberth th once daily metoprolol 25 mg ER Tab 25 mg = 1 tab(s), Oral, Daily, # 90 tab(s), Refills(s) 3, Pharmacy: [facility], 152, cm, 11/05/22 11:35:00 EST, Height/Length Dosing, 76, kg, 11/05/22 11:35:00 EST, Weight Dosing Start Date: 11/14/22 Status: Ordered Start: 10-08-2021 End: 10-03-2022 take 1 tablet by mouth once daily Toprol XL 25 mg Tab-ER 25 mg = 1 tab(s), Oral, Daily, X 90 day(s), # 90 tab(s), Refills(s) 3, Pharmacy: [facility], 152, cm, 10/08/21 13:49:00 EST, Height/Length Dosing, 73, kg, 10/08/21 13:49:00 EST, Weight Dosing Start Date: 10/08/21 Stop Date: 10/03/22 Status: Ordered take 1 tablet by herberth th every twenty-four hours metoprolol succinate XL (Toprol-XL) 25 MG 24 hr tablet Take 50 mg by mouth. Do not crush or chew. 0 Active Multi Vitamin+ (7 sources) Start: 09-22-2023 Multi Vitamin+ Oral, Daily, [...] BID, # 120 tab(s), Refills(s) 0, Pharmacy: [facility], 152.4, cm, 04/01/21 7:20:00 EDT, Height/Length Dosing, 85.5, kg, 04/01/21 7:20:00 EDT, Weight Dosing Start Date: 04/16/21 Status: Ordered Start: 09-18-2019 take 40 mg by mouth once daily pantoprazole 40 mg, Oral, Daily, Refills(s) 0 Start Date: 09/18/19 Status: Ordered pregabalin 25 mg oral capsule (5 sources) Start: 10-26-2023 pregabalin 25 mg Cap 25 mg = 1 cap(s), Oral, BID, start with once a day for 3-5 days. If doing well can go to BID, # 60 cap(s), Refills(s) 0, Pharmacy: [facility], 152, cm, 10/26/23 13:07:00 EST, Height/Length Dosing, 70.5, kg, 10/26/23 13:07:00 EST, Weight Dosing Start Date: 10/26/23 Status: Ordered rOPINIRole 0.5 mg oral tablet (17 sources) Nonergot Dopamine Agonist Start: 02-23-2023 ropinirole 0.5 mg, Oral, Refills(s) 0 Start Date: 09/22/23 Status: Ordered sucralfate 1000 mg oral tablet (20 sources) Aluminum Complex Start: 04-03-2023 take 1 tablet by mouth four times daily Carafate 1 gram Tab 1 gm = 1 tab(s), Oral, QID, # 120 tab(s), Refills(s) 3, Pharmacy: [facility], 152, cm, 04/03/23 9:20:00 EDT, Height/Length [...] mouth every 6 (six) hours. 0 Active tiZANidine 2 mg oral tablet (1 source) Central alpha-2 Adrenergic Agonist Start: 12-18-2023 take 1 tablet by mouth twice daily tiZANidine 2 mg Tab 2 mg = 1 tab(s), Oral, BID, Refills(s) 0 Start Date: 12/18/23 Status: Ordered Completed/Discontinued Medications Medication Drug Class(es) Dates Sig (Normalized) Sig (Original) Adult Blood Pressure Monitor with Large Bicep Cuff (14 sources) Start: 04-28-2023 Adult Blood Pressure Monitor [...] pain] Onset: 3 Episodic Acquired foot deformities (6 sources) Hallux valgus AND bunion; Translations: [Hallux [...] Onset: 3 03-07-2021 Episodic Diverticulosis and diverticulitis (18 sources) Diverticula of intestine; Translations: [Diverticulosis of [...] Onset: 2 Episodic Other connective tissue disease (19 sources) H/O: osteoarthritis 02-23-2023 Episodic Other connective tissue disease (7 sources) Tendinitis 09-22-2023 Episodic Other gastrointestinal disorders (1 source) Esophageal dysphagia; Translations: [Dysphagia, pharyngoesophageal phase] Onset: 3 Episodic Other gastrointestinal disorders (20 sources) Dysphagia 02-20-2023 Episodic Other hereditary and [...] apnea (adult) (pediatric)] Onset: 3 Chronic Unclassified (20 sources) Patient encounter status 02-20-2023 Unclassified (2 [...] (HPV); Translations: [ENC SCREENING HUMAN PAPILLOMAVIRUS] Onset: 12-10-2022 Episodic Residual codes; unclassified (1 source) Asymptomatic menopausal state; Translations: [ASYMPTOMATIC MENOPAUSAL STATE] Onset: 10-26-2022 Episodic Unclassified (1 source) CONTACT W/AND (SUSP) EXPOS COVID-19; Translations: [CONTACT W/AND (SUSP) EXPOS COVID-19] Onset: 11-05-2022 Results Test Name Value Interpretation Reference Range Facility [facility] 12-21-2023 Outside Labs [id number]#1.00TIFF Normal [facility] Physician Orderon 12-21-2023 Physician Order [id number]#1.00TIFF Normal [facility] Ambulatory Visit Summaryon 0 12-18-2023 Ambulatory Visit Summary CHLOE AGARWAL :1955 Visit Date:12/18/2023 Ambulatory Visit Instructions Your Care Team Attending Physician - Vincent CANTRELL, Willie Tovar Primary Care Physician - Nathalie CANTRELL, Yarelis Referring Physician - NONE, XXXX This Is Your Medications List [facility] Prescription (Adult Blood Pressure Monitor with Large Bicep Cuff) alendronate (alendronate 70 mg Tab) hydrochlorothiazide (hydrochlorothiazide 12.5 mg Cap) losartan (losartan 100 mg Tab) meloxicam (meloxicam 15 mg Tab) metoprolol (metoprolol 50 mg ER Tab) multivitamin (Multi Vitamin+) pantoprazole (Protonix 40 mg Tab-DR) pregabalin (pregabalin 25 mg Cap) ropinirole sucralfate (Carafate 1 gram Tab) tizanidine (tiZANidine 2 mg Tab) Procedures Performed Injection of nerve root of lumbar spine using fluoroscopic guidance (10/07/2023), Injection of steroid into hip joint (04/20/2023), [...] kidney stone. Discharge Vitals Heart Rate (Peripheral) 60 Blood Pressure 110/70 Height 152 cm Height 60 in Weight 79.2 kg Weight 174.24 lb BMI 34.28 Medications What How Much When Why Instructions Unchanged alendronate (alendronate 70 mg Tab) TAKE 1 TABLET BY MOUTH 30 MINUTES BEFORE first food once a week Unchanged hydrochlorothiazide (hydrochlorothiazide 12.5 mg Cap) 1 Capsules By Mouth Every day Unchanged losartan (losartan 100 mg Tab) 1 Tablets By Mouth At bedtime Pickup at [facility] Unchanged meloxicam (meloxicam 15 mg Tab) 1 Tablets By Mouth Every day Unchanged metoprolol (metoprolol 50 mg ER Tab) 2 Tablets By Mouth Every day Unchanged [facility] Prescription (Adult Blood Pressure Monitor with Large Bicep Cuff) See instructions Hypertension Check BP Daily Dx I10 Unchanged multivitamin (Multi Vitamin+) By Mouth Every day Unchanged pantoprazole (Protonix 40 mg Tab-DR) 1 Tablets By Mouth 2 times a day Chronic GERD Unchanged pregabalin (pregabalin 25 mg Cap) 1 Capsules By Mouth 2 times a day Chronic lumbar radiculopathy start with once a day for 3-5 days. If doing well can go to BID Unchanged ropinirole 0.5 Milligram By Mouth Unchanged sucralfate (Carafate 1 gram Tab) 1 Tablets By Mouth 4 times a day Hiatal hernia with gastroesophageal reflux disease without esophagitis Unchanged tizanidine (tiZANidine 2 mg Tab) 1 Tablets By Mouth 2 times a day Pharmacy Information [facility]: [address] [place], [place] [id number] [phone] Allergies gabapentin (Headache) lisinopril (Coughing) sulfa drugs (unknown) Problems Ongoing - Any problem that you are currently receiving treatment for. BMI 34.0-34.9,adult Chest pain due to GERD Chronic GERD Duodenogastric bile reflux Dysphagia Epigastric pain Gastritis H/O: osteoarthritis Hiatal hernia with gastroesophageal reflux HTN (hypertension) Osteoporosis Regurgitation of stomach contents Screening for malignant neoplasm of colon Sigmoid diverticulosis Tendonitis Unilateral primary osteoarthritis, right knee Vertigo Historical - Any problem that you are no longer receiving treatment for. Appendicitis Cough GERD - Gastro-esophageal reflux disease Sinus drainage Patient Survey You may receive a survey via text or e-mail asking about your office visit. Please share your experience with us by completing your survey. We appreciate your feedback and thank you for choosing us for your care. Normal [facility] ALL THYROXINE (T4) FREEon Free T4 [Mass/Vol] 1.30 ng/dL 0.76 - 1.46 ng/dL [facility] ALL LIPID PROFILE (FASTING)o n 11-30-2023 CHOL HDL RATIO 3.0 [facility] Comment on above: 3.3 - 4.4 LOW RISK 4.4 - 7.1 AVERAGE RISK 7.1 - 11.0 MODERATE RISK >11.0 HIGH RISK Cholesterol [Mass/Vol] 177 mg/dL NINF - 200 mg/dL [facility] Cholesterol in HDL [Mass/Vol] 59 mg/dL 40 - 60 mg/dL [facility] Comment on above: > or =60 mg/dl - LOW CARDIOVASCULAR RISK <40 mg/dl - HIGH CARDIOVASCULAR RISK Magnesium [Mass/Vol] 96.8 mg/dL [facility] Comment on above: <100 mg/dl OPTIMAL 100-129 mg/dl NEAR OR ABOVE OPTIMAL 130-159 mg/dl BORDERLINE HIGH 160-189 mg/dl HIGH >190 mg/dl VERY HIGH Magnesium [Mass/Vol] 21.2 mg/dL [facility] Triglyceride [Mass/Vol] 106 mg/dL NINF - 150 mg/dL [facility] ALL THYROID STIM HORMONEon 0 11-30-2023 TSH Qn 0.028 m[IU]/L Low [facility] CMP (CMP) (FOR REMOTE FH C USE)on 11-30-2023 Albumin [Mass/Vol] 3.6 g/dL 3.4 - 5.0 g/dL [facility] ALBUMIN GLOBULIN RATIO 1.0 NO [facility] ALP [Catalytic activity/Vol] 62 U/L 46 - 116 U/L [facility] ALT [Catalytic activity/Vol] 23 U/L 14 - 59 U/L [facility] Anion gap [Moles/Vol] 12.6 mmol/L NO [facility] AST [Catalytic activity/Vol] 17 U/L 15 - 37 U/L [facility] Bilirubin [Mass/Vol] 1.2 mg/dL High 0.2 - 1 .0 mg/dL [facility] Calcium [Mass/Vol] 9.1 mg/dL 8.5 - 10. 1 mg/dL [facility] Chloride [Moles/Vol] 102 mmol/L 98 - 10 7 mmol/L [facility] CO2 [Moles/Vol] 30.4 mmol/L 21.0 - 32.0 mmol/L [facility] Creatinine [Mass/Vol] 0.99 mg/dL 0.55 - 1.02 mg/dL [facility] GFR/1.73 sq M.predicted CKD-EPI (S/P/Bld) [Vol rate/Area] >60 60 - PINF [facility] Globulin (S) [Mass/Vol] 3.6 g/dL [facility] Glucose [Mass/Vol] 110 mg/dL High 74 - 106 mg/dL [facility] Potassium [Moles/Vol] 4.0 mmol/L 3.5 - 5.1 mmol/L [facility] Protein [Mass/Vol] 7.2 g/dL 6.4 - 8.2 g/dL [facility] Sodium [Moles/Vol] 141 mmol/L 136 - 145 mmol/L [facility] TBH EGFR-NON AF YEMENI 56 Low 60 - PINF [facility] Urea nitrogen [Mass/Vol] 31.0 mg/dL High 7.0 - 18.0 mg/dL [facility] Urea nitrogen/Creatinine [Mass ratio] 31.3 mg/mg [facility] IGP,APTIMA HPV,AGE GDLNon AGE GDLN ACOG TESTING Note . [facility] Comment on above: TESTS RESULT FLAG UN ITS REF RANGE LAB Clinician Provided Cytology Information Source.............Cervix;Endocervix No. of containers..01 ThinPrep Vial Age Algo ACOG Adamaris... Note 01 <21 or >65 or no age provided FLAG LEGEND: L-Low Normal,H-High Normal,LL-Alert Low,HH-Alert High <-Panic Low,>-Panic High,A-Abnormal,AA-Critical Abnormal Performed at: 01 =[facility] [address] [place] [address] Adelina Nunez MD, PAP IG (IMAGE GUIDED) Note . [facility] Comment on above: TESTS RESULT FLAG U NITS REF RANGE LAB DIAGNOSIS: 02 NEGATIVE FOR INTRAEPITHELIAL LESION OR MALIGNANCY. Specimen adequacy: 02 Satisfactory for evaluation. Endocervical and/or squamous metaplastic cells (endocervical component) are present. Performed by: 02 Vicky Madsen, Civil Transportation Engineer ([facility]) . 02 Note: Note 02 The Pap smear is a screening test designed to aid in the detection of premalignant and malignant conditions of the uterine cervix. It is not a diagnostic procedure and should not be used as the sole means of detecting cervical cancer. Both false-positive and false-negative reports do occur. Test Methodology: Note 02 The [employer](R) Sql Database Administrator was unable to read this specimen. Therefore a manual review was performed. FLAG LEGEND: L-Low Normal,H-High Normal,LL-Alert Low,HH-Alert High <-Panic Low,>-Panic High,A-Abnormal,AA-Critical Abnormal Performed at: [address] [address] Adelina Nunez MD, Performed at: = - [facility] [id number] Manager Cardiac Cath: Adelina Nunez MD, Phone: [phone] Performed at: [facility] [id number] Manager Cardiac Cath: Adelina Nunez MD, Phone: [phone] BRUSH-SPATULA CERVIX ENDOCERVIX [facility] No Panel Informationon 11-30 Interpretation and review of laboratory results Abnormal [facility] Consent for Treatmenton Consent for Treatment [id number]#1.00TIFF Normal [facility] Consultation Noteon 11-20-19 24 Consultation Note Patient: CHLOE AGARWAL Age: [...] QID, # 120 tab(s), Refills(s) 3, Pharmacy: [facility], 152, cm, 04/03/23 9:20:00 EDT, Height/Length Dosing, 80, kg, 04/03/23 9:20:00 EDT, Weight Dosing Protonix 40 mg Tab-DR: 40 mg = 1 tab(s), Oral, BID, # 120 tab(s), Refills(s) 0, Pharmacy: [facility], 152.4, cm, 04/01/21 7:20:00 EDT, Height/Length Dosing, 85.5, kg, 04/01/21 7:20:00 EDT, Weight Dosing hydrochlorothiazide 12.5 mg Cap: 12.5 mg = 1 cap(s), Oral, Daily, # 30 cap(s), Refills(s) 6, Pharmacy: [facility], 152, cm, 11/17/23 11:29:00 EST, Height/Length Dosing, 79.6, kg, 11/17/23 11:29:00 EST, Weight Dosing losartan 100 mg Tab: 100 mg = 1 tab(s), Oral, Bedtime, # 90 tab(s), Refills(s) 1, Pharmacy: [facility], 152, cm, 07/14/23 9:26:00 EDT, Height/Length Dosing, 76.9, kg, 07/14/23 9:26:00 EDT, Weight Dosing pregabalin 25 mg Cap: 25 mg = 1 cap(s), Oral, BID, start with once a day for 3-5 days. If doing well can go to BID, # 60 cap(s), Refills(s) 0, Pharmacy: [facility], 152, cm, 10/26/23 13:07:00 EST, Height/Length [...] All Problems Chronic GERD / SNOMED CT 794791439 / Confirmed Unilateral primary osteoarthritis, right knee / SNOMED CT 1842711359 / Confirmed Gastritis / SNOMED CT 7377881 / Confirmed Vertigo / SNOMED CT 7537924173 / Confirmed BMI 34.0-34.9,adult / SNOMED CT 045770179 / Confirmed Regurgitation of stomach contents / SNOMED CT 876101118 / Confirmed Osteoporosis / SNOMED CT 417621583 / Confirmed HTN (hypertension) / SNOMED CT 6025643581 / Confirmed Dysphagia / SNOMED CT 37904846 / Confirmed Epigastric pain / SNOMED CT 320217119 / Confirmed Chest pain due to GERD / SNOMED CT 16203282 / Confirmed Screening for malignant neoplasm of colon / SNOMED CT 561493324 / Confirmed H/O: osteoarthritis / SNOMED CT 067863686 / Confirmed Hiatal hernia with gastroesophageal reflux / SNOMED CT 0629665539 / Confirmed Duodenogastric bile reflux / SNOMED CT 83150968 / Confirmed Sigmoid diverticulosis / SNOMED CT 7181621592 / Confirmed Tendonitis / SNOMED CT 11793628 / Confirmed Resolved: GERD - Gastro-esophageal reflux disease / SNOMED CT 3043404725 Resolved: Appendicitis / SNOMED CT 719707154 Resolved: Cough / SNOMED CT 73719638 Resolved: Sinus drainage / SNOMED CT 696523952 Canceled: GERD with apnea / SNOMED CT 5161946692 Objective Vital Signs 11/20/2023 13:11 EST Peripheral [...] extremity streng (more content not included)... Normal [facility] Comment on above: Result Comment: Elec tronically Signed By: Vicky Castillo PA-C\.br\Date and Time Signed: 11/20/23 13:40 EST Office/Clinic Note-Physician on 11-20-2023 Office/Clinic Note-Physician [id number]#1.00TIFF Normal [facility] Patient Correspondenceon Patient Correspondence [id number]#1.00TIFF [facility] Consent for Treatmenton 10-21 Consent for Treatment [id number]#1.00TIFF [facility] Heart and Vascular Office/Cl inic Noteon 11-17-2023 Heart and Vascular Office/Clinic Note History of Present Illness Patient is a very pleasant 68-year-old hypertensive female, nondiabetic, non-smoker, referred to our office after she went to the emergency room on 09/02/2021 with abdominal pain radiating into her back. She reportedly had a stress test, echocardiogram and Holter monitor at [facility] prior to her ER visit on 09/02/2021. Troponins were negative x1, and she was assigned a heart score of 4 and discharged home. In addition the patient apparently had a syncopal episode several weeks prior to her presentation, but cannot recall whether she had any chest pain prior to her syncope.. Her echocardiogram done at [place] on 08/20/2021 which showed left ventricular systolic [...] took place at an outside facility at [place] on 09/03/2021 which was read as normal. [...] In addition she has a brother in [place] who apparently has coronary disease the specific [...] concerning lesion (more content not included)... Normal [facility] Comment on above: Result Comment: Elec tronically Signed By: MISAEL CANTRELL, Landon Mckinley\.elmo\Date and Time Signed: 11/17/23 11:44 EST Physician Orderon 11-17-2023 Physician Order [id number]#1.00TIFF Normal [facility] XR Pelvis 1 or 2 [facility]son XR [...] mGy = na DAP = na Normal [facility] XR Spine Lumbosacral 2 or 3 Viewson [...] mGy = na DAP = na Normal [facility] Consent for Treatmenton Consent for Treatment [id number]#1.00TIFF Normal [facility] Consent for Treatment [id number]#1.00TIFF Normal [facility] Consultation Noteon 10-26-19 24 Consultation Note Patient: [...] QID, # 120 tab(s), Refills(s) 3, Pharmacy: [facility], 152, cm, 04/03/23 9:20:00 EDT, Height/Length Dosing, 80, kg, 04/03/23 9:20:00 EDT, Weight Dosing Protonix 40 mg Tab-DR: 40 mg = 1 tab(s), Oral, BID, # 120 tab(s), Refills(s) 0, Pharmacy: [facility], 152.4, cm, 04/01/21 7:20:00 EDT, Height/Length Dosing, 85.5, kg, 04/01/21 7:20:00 EDT, Weight Dosing losartan 100 mg Tab: 100 mg = 1 tab(s), Oral, Bedtime, # 90 tab(s), Refills(s) 1, Pharmacy: [facility], 152, cm, 07/14/23 9:26:00 EDT, Height/Length Dosing, 76.9, kg, 07/14/23 9:26:00 EDT, Weight Dosing metoprolol 50 mg ER Tab: 50 mg = 1 tab(s), Oral, Daily, # 90 tab(s), Refills(s) 1, Pharmacy: [facility], 152, cm, 07/14/23 9:26:00 EDT, Height/Length Dosing, 76.9, kg, 07/14/23 9:26:00 EDT, Weight Dosing pregabalin 25 mg Cap: 25 mg = 1 cap(s), Oral, BID, start with once a day for 3-5 days. If doing well can go to BID, # 60 cap(s), Refills(s) 0, Pharmacy: [facility], 152, cm, 10/26/23 13:07:00 EST, Height/Length Dosing, 70.5, kg, 10/26/23 13:07:00 EST, Weigh... Documented Medications Documented Aleve: Refills(s) 0 Multi Vitamin+: Oral, Daily, Refill(s) 0 alendronate 70 mg Tab: TAKE 1 TABLET BY MOUTH 30 MINUTES BEFORE first food once a week, Prophylaxis ropinirole: 0.5 mg, Oral, Refills(s) 0 Problem list: All Problems Chronic GERD / SNOMED CT 839132515 / Confirmed Unilateral primary osteoarthritis, right knee / SNOMED CT 5012531766 / Confirmed Gastritis / SNOMED CT 8391199 / Confirmed Vertigo / SNOMED CT 2128831960 / Confirmed BMI 34.0-34.9,adult / SNOMED CT 686159706 / Confirmed Regurgitation of stomach contents / SNOMED CT 621165077 / Confirmed Osteoporosis / SNOMED CT 605218565 / Confirmed HTN (hypertension) / SNOMED CT 1741879154 / Confirmed Dysphagia / SNOMED CT 12106991 / Confirmed Epigastric pain / SNOMED CT 390661607 / Confirmed Chest pain due to GERD / SNOMED CT 18938634 / Confirmed Screening for malignant neoplasm of colon / SNOMED CT 339056636 / Confirmed H/O: osteoarthritis / SNOMED CT 548080807 / Confirmed Hiatal hernia with gastroesophageal reflux / SNOMED CT 5722362852 / Confirmed Duodenogastric bile reflux / SNOMED CT 43262320 / Confirmed Sigmoid diverticulosis / SNOMED CT 5140866164 / Confirmed Tendonitis / SNOMED CT 10980099 / Confirmed Resolved: GERD - Gastro-esophageal reflux disease / SNOMED CT 3975917819 Resolved: Appendicitis / SNOMED CT 565169998 Resolved: Cough / SNOMED CT 48610721 Resolved: Sinus drainage / SNOMED CT 674625449 Canceled: GERD with apnea / SNOMED CT 5252145965 Objective Vital Signs 10/26/2023 12:48 EST Peripheral Pulse Rate 66 bpm Respiratory Rate 20 br/min Systolic Blood Pressure 143 mmHg HI Diastolic Blood Pressure 88 mmHg Mean Arterial Pressure, Cuff 106 mmHg General: Alert and oriented, No acute distress. Overweight Eye: Normal conjunctiva. HENT: Normocephalic, Normal hearing. Cardiovascular: No edema. Musculoskeletal Nor (more content not included)... Normal [facility] Comment on above: Result Comment: Elec tronically Signed By: Anna GAMEZ, Vicky\.br\Date and Time Signed: 10/26/23 13:22 EST Legal Correspondence Officeo n 10-26-2023 Legal Correspondence Office [id number]#1.00TIFF Normal [facility] Office/Clinic Note-Physician on 10-26-2023 Office/Clinic Note-Physician [id number]#1.00TIFF Normal [facility] Patient Correspondenceon Patient Correspondence [id number]#1.00TIFF Normal [facility] Patient Correspondence [id number]#1.00TIFF Normal [facility] Patient Correspondence [id number]#1.00TIFF Normal [facility] Patient Correspondence [id number]#1.00TIFF Normal [facility] Patient History Officeon Patient History Office [id number]#1.00TIFF Normal [facility] Physician Orderon 10-26-2023 Physician Order [id number]#1.00TIFF Normal [facility] Physician Order [id number]#1.00TIFF Normal [facility] Consent for Procedure/Surger yon 10-07-2023 Consent for Procedure/Surgery [id number]#1.00TIFF [facility] Consent for Treatmenton 09-19 Consent for Treatment [id number]#1.00TIFF Normal [facility] Discharge Instructionson Discharge Instructions [id number]#1.00TIFF Normal [facility] IntraOperative Documentson 1 12-08-2022 IntraOperative Documents [id number]#1.00TIFF Normal [facility] Main OR Intraoperative Recor don 10-07-2023 Main OR Intraoperative Record IntraOp Document Type FTPM Summary Primary Physician: Claudio Monroe DO Finalized Date/Time: 10/07/23 09:50:14 Pt. Name: CHLOE AGARWAL/Sex: 1955 Female Med Rec #: [id number] Physician: Claudio Monroe DO Financial #: [id number] Pt. Type: P Room/Bed: / Admit/Disch: 10/07/23 08:38:44 - Institution: Case Times FTPM Entry 1 Patient Times In Room 10/07/23 09:41:00 Out Room 10/07/23 09:50:00 Procedure Times Start 10/07/23 09:44:00 Stop 10/07/23 09:49:00 Anesthesia Times Last Modified By: Lashanda Durant RN 10/07/23 09:49:58 Case Attendance FTPM Entry 1 Entry 2 Entry 3 Case Attendee Claudio Monroe DO, RN, Lashanda Erickson RN, [place] Alisha Role Performed Surgeon - Primary Collection Team Lead - Primary Scrub - Primary Time In 10/07/23 09:41:00 10/07/23 09:41:00 10/07/23 09:41:00 Time Out 10/07/23 09:50:00 10/07/23 09:50:00 10/07/23 09:50:00 Procedure TRANSFORAMINAL EPIDURAL TRANSFORAMINAL EPIDURAL TRANSFORAMINAL EPIDURAL STEROID INJECTIO(Right) STEROID INJECTIO(Right) STEROID INJECTIO(Right) Comments Last Modified By: Bhargav DUMONT, Lashanda Durant RN, Lashanda Elizalde RN 10/07/23 09:49:59 12/20/23 09:49:59 10/07/23 09:49:59 Entry 4 Case Attendee Faustino Dorado Role Performed Application Programmer Analyst Time In 10/07/23 09:41:00 Time Out 10/07/23 [...] Erickson RN, Fer Cruz DO, Bradford A., Faustino Dorado [...] and tissue Entry 1 Skin Integrity Intact, Reedy, Warm, and Skin Abnormality No Dry Outcomes [...] Press Point (more content not included)... Normal [facility] Main OR Preoperative Recordo n 10-07-2023 Main OR Preoperative Record Holding Area Document Type FTPM Summary Primary Physician: Claudio Monroe DO Finalized Date/Time: 10/07/23 09:09:26 Pt. Name: CHLOE AGARWAL/Sex: 1955 Female Med Rec #: [id number] Physician: Claudio Monroe DO Financial #: [id number] Pt. Type: P Room/Bed: / Admit/Disch: 10/07/23 [...] Signed By: Shea Aguirre RN 10/07/23 09:09 [facility] Patient Correspondenceon Patient Correspondence [id number]#1.00TIFF [facility] Consent for Treatmenton Consent for Treatment [id number]#1.00TIFF [facility] Consultation Noteon 09-22-20 Consultation Note Patient: CHLOE [...] QID, # 120 tab(s), Refills(s) 3, Pharmacy: [facility], 152, cm, 04/03/23 9:20:00 EDT, Height/Length Dosing, 80, kg, 04/03/23 9:20:00 EDT, Weight Dosing Medrol 4 mg Tab: = 1 packet(s), Oral, As Directed, as directed on package labeling, X 6 day(s), # 21 tab(s), Refills(s) 0, Pharmacy: [facility], 152, cm, 09/22/23 11:39:00 EST, Height/Length Dosing, 70.5, kg, 09/22/23 11:39:00 EST, Weight Dosing Protonix 40 mg Tab-DR: 40 mg = 1 tab(s), Oral, BID, # 120 tab(s), Refills(s) 0, Pharmacy: [facility], 152.4, cm, 04/01/21 7:20:00 EDT, Height/Length Dosing, 85.5, kg, 04/01/21 7:20:00 EDT, Weight Dosing losartan 100 mg Tab: 100 mg = 1 tab(s), Oral, Bedtime, # 90 tab(s), Refills(s) 1, Pharmacy: [facility], 152, cm, 07/14/23 9:26:00 EDT, Height/Length Dosing, 76.9, kg, 07/14/23 9:26:00 EDT, Weight Dosing metoprolol 50 mg ER Tab: 50 mg = 1 tab(s), Oral, Daily, # 90 tab(s), Refills(s) 1, Pharmacy: [facility], 152, cm, 07/14/23 9:26:00 EDT, Height/Length Dosing, 76.9, kg, 07/14/23 9:26:00 EDT, Weight Dosing Documented Medications Documented Aleve: Refills(s) 0 Multi Vitamin+: Refill(s) 0 alendronate 70 mg Tab: TAKE 1 TABLET BY MOUTH 30 MINUTES BEFORE first food once a week, Prophylaxis ropinirole: 0.5 mg, Oral, Refills(s) 0 Problem list: All Problems BMI 34.0-34.9,adult / SNOMED CT 804309860 / Confirmed Chest pain due to GERD / SNOMED CT 75445498 / Confirmed Chronic GERD / SNOMED CT 123732347 / Confirmed Duodenogastric bile reflux / SNOMED CT 99164442 / Confirmed Dysphagia / SNOMED CT 07334035 / Confirmed Epigastric pain / SNOMED CT 399130855 / Confirmed Gastritis / SNOMED CT 8892751 / Confirmed H/O: osteoarthritis / SNOMED CT 081294237 / Confirmed Hiatal hernia with gastroesophageal reflux / SNOMED CT 9523374301 / Confirmed HTN (hypertension) / SNOMED CT 3121785410 / Confirmed Osteoporosis / SNOMED CT 186155204 / Confirmed Regurgitation of stomach contents / SNOMED CT 026908866 / Confirmed Screening for malignant neoplasm of colon / SNOMED CT 108974033 / Confirmed Sigmoid diverticulosis / SNOMED CT 0652589659 / Confirmed Tendonitis / SNOMED CT 45480343 / Confirmed Unilateral primary osteoarthritis, right knee / SNOMED CT 1313295816 / Confirmed Vertigo / SNOMED CT 0274172148 / Confirmed Objective Vital Signs 09/22/2023 11:23 [...] after she (more content not included)... Normal [facility] Comment on above: Result Comment: Elec tronically Signed By: Valeri CANTRELL, Demar Leal\.br\Date and Time Signed: 09/22/23 11:54 EST Office/Clinic Note-Physician on 09-22-2023 Office/Clinic Note-Physician [id number]#1.00TIFF Normal [facility] Patient Correspondenceon Patient Correspondence [id number]#1.00TIFF Normal [facility] Patient Correspondence [id number]#1.00TIFF Normal [facility] Patient History Officeon Patient History Office [id number]#1.00TIFF Normal [facility] Physician Orderon 07-28-2023 Physician Order [id number]#1.00TIFF Normal [facility] Consenton 07-24-2023 Consent [id number]#1.00TIFF Normal [facility] Patient Eval Forms Officeon 07-24-2023 Patient Eval Forms Office [id number]#1.00TIFF Normal [facility] Patient Eval Forms Office [id number]#1.00TIFF Normal [facility] Consent for Treatmenton Consent for Treatment [id number]#1.00TIFF [facility] Physician Orderon 07-16-2023 Physician Order [id number]#1.00CD:1 27 [facility] Heart and Vascular Office/Cl inic Noteon 07-15-2023 [...] Bedtime, # 90 tab(s), Refills(s) 1, Pharmacy: [facility], 152, cm, 07/14/23 9:26:00 EDT, Height/Length Dosing, 76.9, kg, 07/14/23 9:26:00 EDT, Weight Dosing metoprolol, 25 mg = 1 tab(s), Oral, Daily, # 90 tab(s), Refills(s) 3, Pharmacy: [facility], 152, cm, 11/05/22 11:35:00 EST, Height/Length Dosing, 76, kg, 11/05/22 11:35:00 EST, Weight Dosing metoprolol, 50 mg = 1 tab(s), Oral, Daily, X 30 day(s), # 30 tab(s), Refills(s) 5, Pharmacy: [facility], 152, cm, 06/30/23 15:07:00 EDT, Height/Length Dosing, 77.5, kg, 06/30/23 15:07:00 EDT, Weight Dosing metoprolol, 50 mg = 1 tab(s), Oral, Daily, # 90 tab(s), Refills(s) 1, Pharmacy: [facility], 152, cm, 07/14/23 9:26:00 EDT, Height/Length Dosing, 76.9, kg, 07/14/23 9:26:00 EDT, Weight Dosing Portions of this record may have been created with voice recognition artificial intelligence software, specifically [employer] and or rocket staff. Substitutions may have occurred due to the [...] y (04/01/2021), (more content not included)... Normal [facility] Comment on above: Result Comment: Elec tronically Signed By: Vicky LAST CNP\.elmo\Date and Time Signed: 07/15/23 12:36 EDT Physician Orderon 07-15-2023 Physician Order [id number]#1.00CD:1 27 [facility] Consent for Treatmenton 06-20 Consent for Treatment [id number]#1.00CD:12 7 [facility] Physician Orderon 07-14-2023 Physician Order [id number]#1.00CD:1 27 [facility] Consent for Treatmenton 06-19 Consent for Treatment [id number]#1.00CD:12 7 [facility] Heart and Vascular Office/Cl inic Noteon 06-30-2023 Heart and Vascular Office/Clinic Note History of Present Illness Patient is a very pleasant 67-year-old hypertensive female, nondiabetic, non-smoker, referred to our office after she went to the emergency room on 09/02/2021 with abdominal pain radiating into her back. She reportedly had a stress test, echocardiogram and Holter monitor at [facility] prior to her ER visit on 09/02/2021. Troponins were negative x1, and she was assigned a heart score of 4 and discharged home. In addition the patient apparently had a syncopal episode several weeks prior to her presentation, but cannot recall whether she had any chest pain prior to her syncope.. Her echocardiogram done at [place] on 08/20/2021 which showed left ventricular systolic [...] took place at an outside facility at [place] on 09/03/2021 which was read as normal. [...] In addition she has a brother in [place] who apparently has coronary disease the specific [...] List/Past Medical Hi (more content not included)... [facility] Comment on above: Result Comment: Elec tronically Signed By: MISAEL CANTRELL, Landon Mckinley\.br\Date and Time Signed: 06/30/23 15:29 EDT Physician Orderon 06-30-2023 Physician Order [id number]#1.00CD:12 7 [facility] Outside Records Officeon Outside Records Office [id number]#1.00CD:1 27 [facility] Consent for Treatmenton 05-20 Consent for Treatment [id number]#1.00CD:12 7 [facility] Consultation Noteon 06-08-20 Consultation Note Patient: CHLOE AGARWAL Age: 67 years Sex: Female : 1955 Associated Diagnoses: None Author: Vicky aCstillo PA-C Subjective Chief complaint 06/08/2023 8:21 EDT [...] QID, # 120 tab(s), Refills(s) 3, Pharmacy: [facility], 152, cm, 04/03/23 9:20:00 EDT, Height/Length Dosing, 80, kg, 04/03/23 9:20:00 EDT, Weight Dosing Protonix 40 mg Tab-DR: 40 mg = 1 tab(s), Oral, BID, # 120 tab(s), Refills(s) 0, Pharmacy: [facility], 152.4, cm, 04/01/21 7:20:00 EDT, Height/Length Dosing, 85.5, kg, 04/01/21 7:20:00 EDT, Weight Dosing gabapentin 300 mg Cap: 300 mg = 1 cap(s), Oral, BID, start with once a day for a week. If doing ok can increase to BID, # 60 cap(s), Refills(s) 0, Pharmacy: [facility], 152, cm, 05/04/23 8:55:00 EDT, Height/Length Dosing, 72.6, kg, 05/04/23 8:55:00 EDT, Weig... losartan 50 mg Tab: 50 mg = 1 tab(s), Oral, Daily, X 30 day(s), # 30 tab(s), Refills(s) 0, Pharmacy: [facility], 152.4, cm, 06/05/23 8:54:00 EDT, Height/Length Dosing, 73, kg, 06/05/23 8:54:00 EDT, Weight Dosing metoprolol 25 mg ER Tab: 25 mg = 1 tab(s), Oral, Daily, # 90 tab(s), Refills(s) 3, Pharmacy: [facility], 152, cm, 11/05/22 11:35:00 EST, Height/Length Dosing, 76, kg, 11/05/22 11:35:00 EST, Weight Dosing Documented Medications Documented alendronate 70 mg Tab: TAKE 1 TABLET BY MOUTH 30 MINUTES BEFORE first food once a week, Prophylaxis Problem list: All Problems Chronic GERD / SNOMED CT 676801232 / Confirmed Unilateral primary osteoarthritis, right knee / SNOMED CT 6396439721 / Confirmed Gastritis / SNOMED CT 5092644 / Confirmed Vertigo / SNOMED CT 1433704932 / Confirmed BMI 34.0-34.9,adult / SNOMED CT 832495776 / Confirmed Regurgitation of stomach contents / SNOMED CT 344631955 / Confirmed Osteoporosis / SNOMED CT 850633621 / Confirmed HTN (hypertension) / SNOMED CT 0660369532 / Confirmed Dysphagia / SNOMED CT 94530947 / Confirmed Epigastric pain / SNOMED CT 028512469 / Confirmed Chest pain due to GERD / SNOMED CT 38390009 / Confirmed Screening for malignant neoplasm of colon / SNOMED CT 718126643 / Confirmed H/O: osteoarthritis / SNOMED CT 403446698 / Confirmed Hiatal hernia with gastroesophageal reflux / SNOMED CT 6755967136 / Confirmed Duodenogastric bile reflux / SNOMED CT 48151378 / Confirmed Sigmoid diverticulosis / SNOMED CT 4507079916 / Confirmed Resolved: GERD - Gastro-esophageal reflux disease / SNOMED CT 2860388971 Resolved: Appendicitis / SNOMED CT 909932578 Resolved: Cough / SNOMED CT 40499220 Resolved: Sinus drainage / SNOMED CT 064537617 Canceled: GERD with apnea / SNOMED CT 0304489496 Objective Vital Signs 06/08/2023 8:21 EDT Peripheral Pulse Rate 62 bpm Respiratory Rate 16 br/min Systolic Blood Pressure 156 mmHg HI Diastolic Blood Pressure 94 mmHg HI Mean Arterial Pressure, Cuff In Error mmHg (In Error) General: Alert and oriented, No acute distress. Overweight Eye: Normal conjunctiva. HENT: Normocephalic, Normal hea (more content not included)... Normal [facility] Comment on above: Result Comment: Elec tronically Signed By: Vicky Castillo PA-C\.br\Date and Time Signed: 06/08/23 09:02 EDT\.br\Electronically Co-Signed By: Valeri CANTRELL, Demar Leal\.br\Date and Time Co-Signed: 06/23/23 07:26 EDT Office/Clinic Note-Physician on 06-08-2023 Office/Clinic Note-Physician [id number]#1.00CD:12 7 Normal [facility] Patient Correspondenceon Patient Correspondence [id number]#1.00CD:12 7 Normal [facility] Patient Correspondence [id number]#1.00CD:12 7 Normal [facility] Patient History Officeon Patient History Office [id number]#1.00CD:12 7 Normal [facility] Auto Diffon 06-05-2023 Basophils/100 WBC (Bld) 0.8 % Normal 0.0-2.0 [facility] Comment on above: Order Comment: Order Added by Discern Expert. Performed By: #### 2 913315, [id number], 9081605, [id number], 6805066 ####[facility] [address] [place] [address] Basophils/Leukocytes Auto (Bld) [Pure # fraction] 0.1 E9/L Normal 0.0-0.2 [facility] Comment on above: Order Comment: Order Added by Discern Expert. Performed By: #### 2 626582, [id number], 0261426, 15674330, 4235016 ####[address] [address] Eosinophils/100 WBC (Bld) 3.4 % Normal 0.0-8.0 [facility] Comment on above: Order Comment: Order Added by Discern Expert. Performed By: #### 2 115939, 06457487, 6105117, [id number], 5927365 ####[address] [address] Eosinophils/Leukocytes Auto (Bld) [Pure # fraction] 0.3 E9/L Normal 0.0-0.5 [facility] Comment on above: Order Comment: Order Added by Discern Expert. Performed By: #### 2 189049, [id number], 3796514, 09860688, 2866032 ####[address] [address] Lymphocytes/100 WBC (Bld) 20.2 % Normal 14.0-50.0 [facility] Comment on above: Order Comment: Order Added by Discern Expert. Performed By: #### 2 240765, 04721901, 6106940, 43081506, 0613955 ####[facility] [address] [place] [address] Lymphocytes/Leukocytes Auto (Bld) [Pure # fraction] 1.5 E9/L Normal 1.0-4.0 [facility] Comment on above: Order Comment: Order Added by Discern Expert. Performed By: #### 2 548829, [id number], 0589496, 47815999, 3212313 ####[address] [place] [address] Monocytes/100 WBC (Bld) 7.8 % Normal 4.0-14.0 [facility] Comment on above: Order Comment: Order Added by Discern Expert. Performed By: #### 2 871686, 26040087, 0434151, 68566697, 3388200 ####[address] [place] [address] Monocytes/Leukocytes Auto (Bld) [Pure # fraction] 0.6 E9/L Normal 0.2-1.0 [facility] Comment on above: Order Comment: Order Added by Discern Expert. Performed By: #### 2 683512, 76544598, 5333480, 44803671, 6220392 ####[address] [address] Neutrophils/100 WBC (Bld) 67.8 % Normal 36.0-75.0 [facility] Comment on above: Order Comment: Order Added by Discern Expert. Performed By: #### 2 630698, 80401297, 0532848, 34087678, 3056335 ####[facility] [address] [place] [address] Neutrophils/Leukocytes Auto (Bld) [Pure # fraction] 5.1 E9/L Normal 2.0-7.5 [facility] Comment on above: Order Comment: Order Added by Discern Expert. Performed By: #### 2 116758, 60482380, 0420730, 28283896, 1210387 ####[address] [place] [address] BMPon 06-05-2023 Creatinine [Mass/Vol] 0.7 mg/dL Normal 0.5-1.3 [facility] Comment on above: Performed By: #### 2 482423, 41633706, 7176538, 38007342, 7911008 ####[facility] [address] [place] [address] Urea nitrogen [Mass/Vol] 19 mg/dL Normal 5-21 [facility] Comment on above: Performed By: #### 2 663566, 84678908, 0785637, 55346001, 5319771 ####[facility] [address] [place] [address] Urea nitrogen/Creatinine [Mass ratio] 27 No Units High 10-20 [facility] Comment on above: Performed By: #### 2 364032, 67445496, 6471257, 23027218, 5694821 ####[facility] [address] [place] [address] Anion gap [Moles/Vol] 12 mmol/L Normal 6-16 [facility] Comment on above: Performed By: #### 2 221230, 03247178, 3840926, 07766410, 5762723 ####[facility] [address] [place] [address] Calcium [Mass/Vol] 9.5 mg/dL Normal 8.9-11.1 [facility] Comment on above: Performed By: #### 2 142514, 86368158, 0162363, 55548748, 1418724 ####[facility] [address] [place] [address] Chloride [Moles/Vol] 107 mmol/L Normal 101-111 [facility] Comment on above: Performed By: #### 2 359500, 69391251, 0955015, 43537933, 3802297 ####[facility] [address] [place] [address] CO2 [Moles/Vol] 26 mmol/L Normal 21-31 [facility] Comment on above: Performed By: #### 2 334207, 32886215, 5633591, 11595939, 5435777 ####[facility] [address] [place] [address] Glucose [Mass/Vol] 100 mg/dL Normal 55-199 [facility] Comment on above: Result Comment: If t his glucose result represents a fasting glucose, interpretation should refer to the following reference range: 55-99 mg/dL Performed By: #### 2 396114, 20669016, 6652568, 63895153, 1474931 ####[facility] [address] [place] [address] Potassium [Moles/Vol] 3.6 mmol/L Normal 3.5-5.3 [facility] Comment on above: Performed By: #### 2 945795, 91886769, 5484155, 55142039, 8848544 ####[facility] [address] [place] [address] Sodium [Moles/Vol] 141 mmol/L Normal 135-145 [facility] Comment on above: Performed By: #### 2 755767, 16771105, 9592057, 90540746, 3371847 ####[facility] [address] [place] [address] CBC w/ Auto Diffon 3 Erythrocyte distribution width (RBC) [Ratio] 13.2 % Normal 10.9-14.2 [facility] Comment on above: Performed By: #### 2 543771, 35558248, 8712175, 89885399, 7987339 ####[facility] [address] [place] [address] Hematocrit (Bld) [Volume fraction] 39.7 % Normal 34.0-46.0 [facility] Comment on above: Performed By: #### 2 293791, 83526520, 2690228, 08311295, 1285562 ####[facility] [address] [place] [address] Hemoglobin (Bld) [Mass/Vol] 13.6 g/dL Normal 12.0-16.0 [facility] Comment on above: Performed By: #### 2 112140, 38844188, 9067163, 68598785, 1186318 ####[address] [address] MCH (RBC) [Entitic mass] 29.9 pg Normal 27.0-34.0 [facility] Comment on above: Performed By: #### 2 951804, 04925075, 0593203, 62817500, 1998834 ####[facility] [address] [place] [address] MCHC (RBC) [Mass/Vol] 34.2 g/dL Normal 31.4-36.0 [facility] Comment on above: Performed By: #### 2 440235, 56602621, 5960012, 97526751, 9037894 ####[place] [address] MCV (RBC) [Entitic vol] 87.5 fL Normal 80.0-100.0 [facility] Comment on above: Performed By: #### 2 187239, 79741225, 6966200, 47035601, 7801505 ####[address] [address] Platelet mean volume (Bld) [Entitic vol] 8.2 fL Normal 6.4-10.8 [facility] Comment on above: Performed By: #### 2 518497, 18612649, 1891750, 75988031, 4896828 ####[facility] [address] [place] [address] Platelets (Bld) [#/Vol] 239.0 E9/L Normal 150. 0-500. 0 [facility] Comment on above: Performed By: #### 2 804164, 46039618, 0083568, 39478141, 6337550 ####[address] [address] RBC (Bld) [#/Vol] 4.5 E12/L Normal 4.3-5.9 [facility] Comment on above: Performed By: #### 2 912251, 58313132, 7311054, 86228707, 7972514 ####[facility] [address] [place] [address] WBC corrected for nucl RBC Auto (Bld) [#/Vol] 7.5 E9/L Normal 4.0-11.0 [facility] Comment on above: Performed By: #### 2 181071, 10767146, 9893330, 22697761, 4904428 ####[facility] [address] [place] [address] CHEMISTRYOrdered By: SYSTEM SYSTEM on 06-05-2023 Anion [...] 96 mL/min/1.73 m2 Normal >=59mL/min /1.73 m2 [facility] Chem S Glucose [Mass/Vol] 100 mg/dL Normal 55 - 199 mg/dL FT Remisol Potassium [Moles/Vol] 3.6 mmol/L Normal 3.5 - 5.3 mmol/L FT Remisol Sodium [Moles/Vol] 141 mmol/L Normal 135 - 145 mmol/L FT Remisol Troponin I.cardiac [Mass/Vol] 8.30 pg/mL Low 10.10 - 27.10 pg/mL FT Remisol Urea nitrogen [Mass/Vol] 19 mg/dL Normal 5 - 21 mg/dL FT Remisol Urea nitrogen/Creatinine [Mass ratio] 27 mg/mg High 10 - 20 [facility] Remisol CHEMISTRYOrdered By: Lab ROP User on 06-05-2023 Glucose [Mass/Vol] 109 mg/dL High 55 - 99 mg/dL [facility] POC Subsection Comment on above: Result Comment: Kacey wiley Meter POC Device SN [id number] Invalid Interpretation Code [facility] POC Subsection POC User ID [id number] Invalid Interpretation Code [facility] POC Subsection POC Username SHARITA VARGAS Invalid Interpretation Code [facility] POC Subsection CT Head or Brain w/o [...] MD Transcribed by: SCOTTY Technologist: TIFFANY Normal [facility] Capillary Glucose POCon 05-19 Glucose [Mass/Vol] 109 mg/dL High 55-99 [facility] Comment on above: Result Comment: Kacey wiley Meter Performed By: #### 2 [id number] #### [facility] Laboratory [address] [place] [address] Consent for Treatmenton 05-19 Consent for Treatment [id number]#1.00CD:12 7 Normal [facility] Discharge Instructionson Discharge Instructions [id number]#1.00CD:1 27 Normal [facility] ED Clinical Summaryon 2022 ED Clinical Summary (Inserted Image. Kandace ble to display) [place] [id number] ED Clinical Summary Person Information Name: CHLOE AGARWAL[place] Age: 67 Years : 1955 Sex: Female Language: Citizen Of [place] PCP: Yarelis Mcghee MD Marital Status: Visit Id: Visit Reason: Medical screening exam; SENT FROM [facility] [facility] HIGH BP AND DIZZINESS Speciality: Acuity: [...] 06/05/2023 10:47:06 ADDRESS: [place] [phone] PHYS DOC NOTES: MEDICAL INFORMATION: Prescriptions Given: Medications to Continue Taking That Have Changed [facility], [address] [place] [place] [id number], [phone] START: losartan (losartan 50 mg Tab) 1 [...] Tablets By Mouth every day. Refills: [facility]. [facility] (Adult Blood Pressure Monitor with Large Bicep Cuff) Check BP Daily Dx I10. Refills: 0. pantoprazole (Protonix 40 mg Tab-DR) 1 Tablets By Mouth 2 times a day. Refills: 0. sucralfate (Carafate 1 gram Tab) 1 Tablets By Mouth 4 times a day. Refills: 3. 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 She [...] day(s), # 30 tab(s), Refills(s) 0, Pharmacy: [facility], 152.4, cm, 06/05/23 8:54:00 EDT, Height/Length [...] Information Yarelis Mcghee In 3 days [address] [id number]- Business (1) Additional Instructions: Problem List/Past Medical History Ongoing BMI 34.0-34.9,adult Chest pain due to GERD Chronic GERD Duodenogastric bile reflux Dysphagia Epigastric pain Gastritis H/O: osteoarthritis Hiatal hernia with gastroesophageal reflux HTN (hypertension) Osteoporosis Regurgitation of stomach contents Screening for malignant ne (more content not included)... Normal [facility] Comment on above: Result Comment: Elec tronically Signed By: Prasad Avalos DO\.br\Date and Time Signed: 06/05/23 10:42 EDT ED Patient Education Noteon 06-05-2023 ED Patient Education Note Normal [facility] ED Patient Summaryon 023 ED Patient Summary (Inserted Image. Kandace ble to display) [address] [address] Patient Discharge Instructions Person Information Name: CHLOE AGARWAL Age: 67 Years Arrival Date: 06/05/2023 08:39:11 Discharge Diagnosis: Dizziness; Hypertension Primary Care Physician: Yarelis Mcghee MD Provider Information Primary Provider: Prasad Avalos DO Advanced Slate Picker:None The exam and treatment you received in the Emergency Department were for an urgent problem and are not intended as complete care. It is important that you follow up with a doctor, nurse practitioner, or physician?s public services assistant for ongoing care. If your symptoms become worse or you do not improve as expected and you are unable to reach your usual health care provider, you should return to the Emergency Department. We are available 24 hours a day. ANYCHLOE Shepard has been given the following list of patient education materials, prescriptions and follow-up instructions: Follow-up Instructions: With: Address: When: Yarelis Mcghee [address] [place] [address], [facility] [place] [place] [address] [facility] (1) In 3 days In the event that this physician does not participate in your insurance network, please consult with your insurance company to find a nearby participating provider. Patient Education Materials: A MESSAGE TO ALL PATIENTS REGARDING OPIOIDS PRESCRIPTION OPIOIDS: WHAT YOU NEED TO KNOW Prescription opioids can be used to help relieve qllsioof-hh-vtocmj pain and are often prescribed following a [...] be struggling with addiction, tell your health resident care technician and ask for guidance or call [facility]?S National Helpline at 2-037-615-JODF. j Source: [place] Department of Health and Human Service (more content not included)... Normal [facility] HEMATOLOGYOrdered By: SYSTEM SYSTEM on 06-05-2023 Basophils/100 [...] 39.7 % Normal 34.0 - 46.0 % FT HemeAutoSS Hemoglobin (Bld) [Mass/Vol] 13.6 g/dL Normal [...] 7.5 E9/L Normal 4.0 - 11.0 E9/L [facility] HemeAutoSS Monitor Recordon 06-05-2023 Monitor Record [id number]#1.00CD:1 27 Normal [facility] Troponin 0 Hr.on 06-05-2023 Troponin I.cardiac [Mass/Vol] 8.30 pg/mL Low 10.10-27.1 0 [facility] Comment on above: Result Comment: The 95% CI (Confidence Interval) PPV (Positive Predictive Value) for myocardial infarction in females is 38 pg/mL, in males 51 pg/mL. The results should be used in conjunction with clinical conditions of myocardial infarction. (Access High Sensitivity Troponin I Instructions For Use, Demetra Jay, May 2018) Performed By: #### 2 973174, 71321258, 5285471, 80401170, 8281473 ####[facility] [address] [place] [address] XR Chest Single Viewon 06-05 XR Chest [...] mGy = na DAP = na Normal [facility] eGFRon 06-05-2023 GFR/1.73 sq M.predicted among non-blacks MDRD (S/P/Bld) [Vol rate/Area] 96 mL/min/1.73 m2 Normal >=59 [facility] Comment on above: Order Comment: Order added by Discern Expert. Result Comment: Weed Sprayer neisha kidney disease could be indicated at eGFR's of less than 60 mL/min/1.73m2. Kidney failure is indicated at less than 15 mL/min/1.73m2. Performed By: #### 2 675954, 37258938, 1506561, 34076095, 9695469 ####[facility] [address] [place] [address] [facility] (Inserted Image. Kandace ble to display) Keith Subramanian DPM [address] [place] [address] Re: CHLOE AGARWAL Date of : 1955 Re: Chloe Agarwal : 1955 Patient represents low risk of cardiovascular events involving her non-cardiac surgery. Recent left heart catheterization revealed normal coronary arteries. Vicky LARA [facility] Heart [facility] Vascular Clinic [facility] Outside Records Officeon Outside Records Office [id number]#1.00CD:1 27 Normal [facility] Heart and Vascular Office/Cl inic Noteon 05-14-2023 [...] intact- no rash or concerning lesions Procedure [facility] 09/17/21 CONCLUSIONS: 1. Normal coronary arteries. 2. [...] SARS-CoV-2 (COVID-19) mRNA (more content not included)... [facility] Comment on above: Result Comment: Elec tronically Signed By: Vicky LAST CNP\.br\Date and Time Signed: 05/14/23 09:30 EDT Consent for Treatmenton 04-18 Consent for Treatment [id number]#1.00CD:127 [facility] Consultation Noteon 05-04-20 Consultation Note Patient: CHLOE [...] QID, # 120 tab(s), Refills(s) 3, Pharmacy: [facility], 152, cm, 04/03/23 9:20:00 EDT, Height/Length Dosing, 80, kg, 04/03/23 9:20:00 EDT, Weight Dosing Cozaar 25 mg Tab: 25 mg = 1 tab(s), Oral, Daily, stopping Lisinopril Starting Cozaar, X 90 day(s), # 90 tab(s), Refills(s) 3, Pharmacy: [facility], 152, cm, 11/05/22 11:35:00 EST, Height/Length Dosing, 76, kg, 11/05/22 11:35:00 EST, Weight Dosing Protonix 40 mg Tab-DR: 40 mg = 1 tab(s), Oral, BID, # 120 tab(s), Refills(s) 0, Pharmacy: [facility], 152.4, cm, 04/01/21 7:20:00 EDT, Height/Length Dosing, 85.5, kg, 04/01/21 7:20:00 EDT, Weight Dosing gabapentin 300 mg Cap: 300 mg = 1 cap(s), Oral, BID, start with once a day for a week. If doing ok can increase to BID, # 60 cap(s), Refills(s) 0, Pharmacy: [facility], 152, cm, 05/04/23 8:55:00 EDT, Height/Length Dosing, 72.6, kg, 05/04/23 8:55:00 EDT, Shaheen... metoprolol 25 mg ER Tab: 25 mg = 1 tab(s), Oral, Daily, # 90 tab(s), Refills(s) 3, Pharmacy: [facility], 152, cm, 11/05/22 11:35:00 EST, Height/Length Dosing, 76, kg, 11/05/22 11:35:00 EST, Weight Dosing Documented Medications Documented alendronate 70 mg Tab: TAKE 1 TABLET BY MOUTH 30 MINUTES BEFORE first food once a week, Prophylaxis Problem list: All Problems Chronic GERD / SNOMED CT 574790768 / Confirmed Unilateral primary osteoarthritis, right knee / SNOMED CT 2162273972 / Confirmed Gastritis / SNOMED CT 7332769 / Confirmed Vertigo / SNOMED CT 0219559956 / Confirmed BMI 34.0-34.9,adult / SNOMED CT 731675269 / Confirmed Regurgitation of stomach contents / SNOMED CT 813726787 / Confirmed Osteoporosis / SNOMED CT 755997839 / Confirmed HTN (hypertension) / SNOMED CT 7128451716 / Confirmed Dysphagia / SNOMED CT 63530667 / Confirmed Epigastric pain / SNOMED CT 692516389 / Confirmed Chest pain due to GERD / SNOMED CT 05120989 / Confirmed Screening for malignant neoplasm of colon / SNOMED CT 246273097 / Confirmed H/O: osteoarthritis / SNOMED CT 879734264 / Confirmed Hiatal hernia with gastroesophageal reflux / SNOMED CT 9852781983 / Confirmed Duodenogastric bile reflux / SNOMED CT 47553662 / Confirmed Sigmoid diverticulosis / SNOMED CT 5452895036 / Confirmed Resolved: GERD - Gastro-esophageal reflux disease / SNOMED CT 6818844551 Resolved: Appendicitis / SNOMED CT 707925973 Resolved: Cough / SNOMED CT 18326411 Resolved: Sinus drainage / SNOMED CT 780748312 Canceled: GERD with apnea / SNOMED CT 6535157585 Objective VS/Measurements General: Alert and oriented, No acute distress. Overweight Eye: Normal conjunctiva. HENT: Normocephalic, Normal hearing. Cardiovascular: No edema. Musculoskeletal Normal range of motion. Normal strength. 5/5 lower extremity strength Integumentary: Warm, Dry, Reedy. Injection site well-healed Neurologic: Alert, Oriented. Psychiatric: Cooperative, Appropriate mood & affect. Impression and Plan Patient is a 67-year-old female with a past medical history as needed significant for lumbar degenerative disease, lumbar neuritis, and trochanteric bu (more content not included)... Normal [facility] Comment on above: Result Comment: Elec tronically Signed By: Vicky Castillo PA-C\.br\Date and Time Signed: 05/04/23 09:08 EDT\.br\Electronically Co-Signed By: Valeri CANTRELL, Demar Leal\.br\Date and Time Co-Signed: 05/12/23 10:41 EDT Office/Clinic Note-Physician on 05-04-2023 Office/Clinic Note-Physician [id number]#1.00CD:12 7 [facility] Patient Correspondenceon Patient Correspondence [id number]#1.00CD:12 7 [facility] Patient Correspondence [id number]#1.00CD:12 7 [facility] Patient History Officeon Patient History Office [id number]#1.00CD:12 7 [facility] Consent for Treatmenton 04-18 Consent for Treatment [id number]#1.00CD:12 7 [facility] Progress Note-Nurseon 2022 Progress Note-Nurse [id number]#1.00CD:12 7 [facility] Consent for Procedure/Surger yon 04-20-2023 Consent for Procedure/Surgery [id number]#1.00CD:1 27 [facility] Consent for Treatmenton Consent for Treatment [id number]#1.00CD:12 7 [facility] Office/Clinic Note-Physician on 04-20-2023 Office/Clinic Note-Physician [id number]#1.00CD:1 27 Normal [facility] Operative Reporton Operative Report Patient: CHLOE AGARWAL [...] Arterial Pressure, Cuff 112 mmHg . Normal [facility] Comment on above: Result Comment: Elec tronically Signed By: Demar Trammell MD\.br\Date and Time Signed: 04/20/23 14:27 EDT Patient Correspondenceon Patient Correspondence [id number]#1.00CD:1 27 Normal [facility] Patient History Officeon Patient History Office [id number]#1.00CD:1 27 Normal [facility] Physician Orderon 04-20-2023 Physician Order [id number]#1.00CD:1 27 [facility] Ambulatory Visit Summaryon 0 04-15-2023 Ambulatory Visit [...] EDT With: Valeri CANTRELL, Demar Leal [facility] Thursday 9:00 AM EDT With: Vicky LAST CNP Where: [facility] Thursday 9:00 AM EDT With: [...] - Gastro-esophageal reflux disease Sinus drainage Normal [facility] General Surgery Office/Clini c Noteon 04-15-2023 General [...] (COVID-19) mRNA BNT-162b2 vax 07/02/[address] [facility] Comment on above: Result Comment: Elec tronically Signed By: JOSE RAMON CANTRELL, Michael Ward\Date and Time Signed: 04/15/23 14:05 EDT IntraOperative Documentson 0 04-13-2023 IntraOperative Documents [id number]#1.00CD:[address] [facility] Colonoscopy Procedure Report on 04-09-2023 Colonoscopy [...] and Plan Diagnosis: Diverticulosis of sigmoid colon ([id number]-BT K57.30, Discharge, Medical). Course: Progressing as expected. Recommendations: Repeat colonoscopy:: In 10 years. Follow-up:: 1-2 weeks. Diet:: Regular diet. Medication resumption:: Continue current medications. Return to activities:: After 24 hours. Education and Follow-up: Counseled: Family. there was noted to be mild inflammation of the sigmoid colon, and a biopsy was obtained. with cold biopsy forceps, with good hemostasis. [facility] Comment on above: Other Comment: Constanza diamond Attachment - attachment storage system not supported [id number] Can be viewed in source systemMissing Attachment - attachment storage system not supported [id number] Can be viewed in source systemMissing Attachment - attachment storage system not supported [id number] Can be viewed in source systemMissing Attachment - attachment storage system not supported [id number] Can be viewed in source system Coding Queryon 04-08-2023 Coding Query - From: Aminata Cruz To: JOSE RAMON CANTRELL, Michael Billingsley; Sent: 04/08/2023 10:30:53 EDT ! Subject: Coding Query Dr Albright, There is a pathology report from the colonoscopy, can you document that portion of the procedure for the OP note. Thank you, Jennifer HIM Coding [facility] Consent for Treatmenton 03-20 Consent for Treatment [id number]#1.00CD:1 27 [facility] Consultation Noteon 04-07-20 Consultation Note Patient: CHLOE [...] QID, # 120 tab(s), Refills(s) 3, Pharmacy: [facility], 152, cm, 04/03/23 9:20:00 EDT, Height/Length Dosing, 80, kg, 04/03/23 9:20:00 EDT, Weight Dosing Cozaar 25 mg Tab: 25 mg = 1 tab(s), Oral, Daily, stopping Lisinopril Starting Cozaar, X 90 day(s), # 90 tab(s), Refills(s) 3, Pharmacy: [facility], 152, cm, 11/05/22 11:35:00 EST, Height/Length Dosing, 76, kg, 11/05/22 11:35:00 EST, Weight Dosing Protonix 40 mg Tab-DR: 40 mg = 1 tab(s), Oral, BID, # 120 tab(s), Refills(s) 0, Pharmacy: [facility], 152.4, cm, 04/01/21 7:20:00 EDT, Height/Length Dosing, 85.5, kg, 04/01/21 7:20:00 EDT, Weight Dosing metoprolol 25 mg ER Tab: 25 mg = 1 tab(s), Oral, Daily, # 90 tab(s), Refills(s) 3, Pharmacy: [facility], 152, cm, 11/05/22 11:35:00 EST, Height/Length Dosing, 76, kg, 11/05/22 11:35:00 EST, Weight Dosing Documented Medications Documented alendronate 70 mg Tab: TAKE 1 TABLET BY MOUTH 30 MINUTES BEFORE first food once a week, Prophylaxis ropinirole 0.5 mg Tab: take 1 tablet by mouth at bedtime, Other (see comment) Problem list: All Problems BMI 34.0-34.9,adult / SNOMED CT 286214688 / Confirmed Chest pain due to GERD / SNOMED CT 73743372 / Confirmed Chronic GERD / SNOMED CT 429717640 / Confirmed Dysphagia / SNOMED CT 44780662 / Confirmed Epigastric pain / SNOMED CT 236563560 / Confirmed Gastritis / SNOMED CT 3849919 / Confirmed H/O: osteoarthritis / SNOMED CT 826575483 / Confirmed HTN (hypertension) / SNOMED CT 9677824665 / Confirmed Osteoporosis / SNOMED CT 267393352 / Confirmed Regurgitation of stomach contents / SNOMED CT 833260472 / Confirmed Screening for malignant neoplasm of colon / SNOMED CT 937198031 / Confirmed Unilateral primary osteoarthritis, right knee / SNOMED CT 3669863766 / Confirmed Vertigo / SNOMED CT 3524990173 / Confirmed Objective Vital Signs 04/07/2023 10:56 [...] Patient agrees with plan of care. Normal [facility] Comment on above: Result Comment: Elec tronically Signed By: Valeri CANTRELL, Demar Leal\.elmo\Date and Time Signed: 04/07/23 12:35 EDT Main OR Intraoperative Recor don 04-07-2023 Main OR Intraoperative Record IntraOp Document Type FT Summary Primary Physician: Michael ALBRIGHT MD Finalized Date/Time: 04/07/23 08:07:26 Pt. Name: CHLOE AGARWAL/Sex: 1955 Female Med Rec #: [id number] Physician: Michael ALBRIGHT MD Financial #: [id number] Pt. Type: O Room/Bed: Endo 12/17 Admit/Disch: 04/03/23 09:06:01 - 04/03/23 10:54:28 Institution: Case Times FT Entry 1 Patient Times In Room 04/03/23 09:47:00 Out Room 04/03/23 10:12:00 Procedure Times Start 04/03/23 09:50:00 Stop 04/03/23 10:11:00 Anesthesia Times Start 04/03/23 09:47:00 Stop 04/03/23 10:12:00 Time at [facility] 04/03/23 10:04:00 Last Modified By: Mary DUMONT, Iris 04/03/23 10:11:48 General Comments: 951-EGD completed. /AW RN 954-Colonoscopy started/AW RN 04/07/23 Chart opened to review and send charges LRoth CSFA Case Attendance FT Entry 1 Entry 2 Entry 3 Case Attendee Manfred GOMEZ, Nico Hernandez RN, Karissa Little Role Performed Anesthesiologist Collection Team Lead - Primary Scrub - Primary Tube Backer Time In 04/03/23 09:47:00 04/03/23 09:47:00 04/03/23 [...] (If Applicable) PreOp Antibiotic No Time Out Manfred GOMEZ, Nico Given Participants Mary Enciso RN, Rayshawn Simmons Kirstyn K, Sparks, Micala E, NILL MD, Michael Billingsley Time Out Complete 04/03/23 09:49:00 Outcomes Met? [...] and tissue Entry 1 Skin Integrity Intact, Reedy, Warm, and Skin Abnormality No Dry Outcomes [...] patient for (more content not included)... Normal [facility] Office/Clinic Note-Physician on 04-07-2023 Office/Clinic Note-Physician [id number]#1.00CD:1 27 [facility] Patient Correspondenceon Patient Correspondence [id number]#1.00CD:1 27 [facility] Patient History Officeon Patient History Office [id number]#1.00CD:1 27 [facility] Consenton 04-06-2023 Consent [id number]#1.00CD:12 7 [facility] Discharge Instructionson Discharge Instructions [id number]#1.00CD:12 7 [facility] Postoperative Documentson Postoperative Documents [id number]#1.00CD:12 7 [facility] Reminderson 04-06-2023 Reminders - From: Teresa Golden LPN To: GSN - Clinical; Sent: 04/06/2023 09:24:18 EDT Show up: 03/03/2033 07:00:00 EDT Subject: colonoscopy recall Due Date/Time: 04/03/2033 07:00:00 EDT Reminder/Recall Patient due for screening colonoscopy 04/03/2033. Normal [facility] Consent for Treatmenton 03-19 Consent for Treatment [id number]#1.00CD:12 7 Normal [facility] Discharge Instructionson Discharge Instructions CHLOE AGARWAL :1955 [...] operative site, Persistent vomiting Pharmacy Information Other: [facility] Discharge Instructions Discharge Instructions Previously Scheduled Follow-Up Appointments Thursday 11:00 AM EDT With: Valeri CANTRELL, Demar Leal Where: [facility] Thursday 9:00 AM EDT With: Vicky LAST CNP Where: Cardiology Clinic New Follow Up Appointments after Discharge Follow Up with Michael ALBRIGHT When: Within 2 weeks Where: [address] [place] [phone] Business (1) Medications What How Much When Why Instructions Next Dose New sucralfate (Carafate 1 gram Tab) 1 Tablets By Mouth 4 times a day Hiatal hernia with gastroesophageal reflux disease without esophagitis Refills: 3 Pickup at [facility] Unchanged alendronate (alendronate 70 mg Tab) [...] tablet by mouth at bedtime Pharmacy Information [facility]: [address] [place], [place] [id number] [phone] Allergies lisinopril (Coughing) sulfa drugs (unknown) Problems [...] complications such (more content not included)... Normal [facility] Comment on above: Result Comment: Elec tronically [...] hernia with gastroesophageal reflux disease without esophagitis (ZWI38-TN K44.9, Working, Medical), Hiatal hernia with gastroesophageal reflux disease without esophagitis (VZR03-WK K44.9, Discharge, Medical), Gastro-esophageal reflux disease without esophagitis (MEG16-CN K21.9, Discharge, Medical), Encounter for screening for malignant neoplasm of rectum (TCQ88-EC Z12.12, Discharge, Medical), Encounter for colorectal cancer screening (XRT74-KH Z12.11, Discharge, Medical), Diverticulosis of sigmoid colon (BYC76-EM K57.30, Discharge, Medical). Course: Progressing as expected. Education and Follow-up: Counseled: Family. Christina [facility] Comment on above: Other Comment: Constanza diamond Attachment - attachment storage system not supported [id number] Can be viewed in source systemMissing Attachment - attachment storage system not supported [id number] Can be viewed in source systemMissing Attachment - attachment storage system not supported [id number] Can be viewed in source systemMissing Attachment - attachment storage system not supported [id number] Can be viewed in source system Inpatient Patient Summaryon 04-03-2023 Inpatient Patient Summary [place] [id number] [facility] Clinical Discharge Instructions PERSON INFORMATION Name: CHLOE [...] up: With: Address: When: Michael ALBRIGHT [address], [address], [facility] [address] [place] [address] Business (1) Within 2 weeks Type Location Start Finish State Pain Management - Follow Up ([facility]) [facility] [place] 04/07/2023 11:00 AM 04/07/2023 11:15 AM Confirmed Cardiology Follow Up ([facility]) [facility] 04/28/2023 9:00 AM 04/28/2023 9:15 AM Confirmed MEDICATION LIST New Medications [facility], [address] [id number], [phone] sucralfate (Carafate 1 gram Tab) 1 Tablets [...] mouth at bedtime., Restless legs Comment: Normal [facility] Main OR PACU I Recordon 03-19 Main OR PACU I Record PACU Phase I Docum ent Type FT Summary Primary Physician: Michael ALBRIGHT MD Finalized Date/Time: 04/03/23 10:55:16 Pt. Name: CHLOE AGARWAL/Sex: 1955 Female Med Rec #: [id number] Physician: Michael ALBRIGHT MD Financial #: [id number] Pt. Type: O Room/Bed: Endo 12/17 Admit/Disch: [...] Signed By: Fartun Butler RN 04/03/23 10:55 [facility] Monitor Recordon 04-03-2023 Monitor Record [id number]#1.00CD:1 27 Normal [facility] Monitor Record [id number]#1.00CD:1 27 Normal [facility] Outpatient Surgery Discharge Instructionon 04-03-2023 Outpatient Surgery Discharge Instruction [address] [address] Patient Discharge Instructions PERSON INFORMATION Name: CHLOE [...] THE NEAREST EMERGENCY ROOM OR CALL 911 IANY BARBARA J, have received the attached patient education materials/instructions and have verbalized understanding: May we do a follow up call? Yes No I was present when discharge instructions were given Patient Signature ___ Date Clinican/Nurse Signature Date Follow up: With: Address: When: Michael ALBRIGHT Che [facility], [address], [facility] [place] [address] [place] [address] Business (1) Within 2 weeks Type Location Start Finish State Pain Management - Follow Up ([facility]) [facility] [place] 04/07/2023 11:00 AM 04/07/2023 11:15 AM Confirmed Cardiology Follow Up ([facility]) [facility] 04/28/2023 9:00 AM 04/28/2023 9:15 AM Confirmed Pharmacy Information: Other: [facility] You may receive a survey from [employer] asking you to rate your care experience. Your feedback is important and will help us understand what we do well and how we can improve the quality of care we provide to you, your loved ones and our community. It?s an honor to serve you. Thank you for choosing [facility] HERE ARE THE MEDICATION CHANGES THAT OCCURRED DURING YOUR HOSPITAL STAY New Medications [facility], [address] [place], [place] [id number], [phone] sucralfate (Carafate 1 gram Tab) 1 Tablets [...] legs PATIENT EDUCATION INFORMATION Instructions: Medication Leaflets: [facility] Patient Education - Texton 0 04-03-2023 Patient [...] unsweetened, w/added ascorbic acid 1 cup 0.5 Meally 1 cup 0.7 Vegetables Cooked Green beans 1 cup 4.0 Carrots 1/2 cup sliced 2.3 Peas 1 cup 8.8 Potato (baked, with skin) 1 medium potato 3.8 Raw [place] (with peel) 1 cucumber 1.5 Lettuce 1 [...] 8.7 Peanuts 1/2 cup 7.9 Chart from [facility] 2013. SEEK IMMEDIATE MEDICAL CARE IF: You [...] Information adapted from: ExitCare? Patient Information ?2009 [employer] Opez 2012 [email or web address] Colonoscopy Care After Surgery Please read the [...] and progress (more content not included)... Normal [facility] Progress Note-Physicianon Progress Note-Physician Patient: CHLOE CHESTER Age: 67 years Sex: Female : 1955 Associated Diagnoses: None Author: Lb Wu Jr., DO Postoperative Information Postoperative disposition: Postoperative disposition: Home. Optimetrix number: Optimetrix number [id number]. Anesthetic utilized: General. Physical Examination Vital Signs [...] Surgery Unit, and To home ). Normal [facility] Comment on above: Result Comment: Elec tronically [...] day(s), # 90 tab(s), Refills(s) 3, Pharmacy: [facility], 152, cm, 11/05/22 11:35:00 EST, Height/Length Dosing, 76, kg, 11/05/22 11:35:00 EST, Weight Dosing Protonix 40 mg Tab-DR: 40 mg = 1 tab(s), Oral, BID, # 120 tab(s), Refills(s) 0, Pharmacy: [facility], 152.4, cm, 04/01/21 7:20:00 EDT, Height/Length Dosing, 85.5, kg, 04/01/21 7:20:00 EDT, Weight Dosing metoprolol 25 mg ER Tab: 25 mg = 1 tab(s), Oral, Daily, # 90 tab(s), Refills(s) 3, Pharmacy: [facility], 152, cm, 11/05/22 11:35:00 EST, Height/Length [...] All Problems BMI 34.0-34.9,adult / SNOMED CT 682303107 / Confirmed Chest pain due to GERD / SNOMED CT 41467525 / Confirmed Chronic GERD / SNOMED CT 866893233 / Confirmed Dysphagia / SNOMED CT 23920971 / Confirmed Epigastric pain / SNOMED CT 861564540 / Confirmed Gastritis / SNOMED CT 5807380 / Confirmed H/O: osteoarthritis / SNOMED CT 669608906 / Confirmed HTN (hypertension) / SNOMED CT 3262983211 / Confirmed Osteoporosis / SNOMED CT 748617287 / Confirmed Regurgitation of stomach contents / SNOMED CT 007061287 / Confirmed Screening for malignant neoplasm of colon / SNOMED CT 871932548 / Confirmed Unilateral primary osteoarthritis, right knee / SNOMED CT 7098122646 / Confirmed Vertigo / SNOMED CT 5515695338 / Confirmed Resolved: Appendicitis / SNOMED CT 962763864 Resolved: Cough / SNOMED CT 73412841 Resolved: GERD - Gastro-esophageal reflux disease / SNOMED CT 4549724551 Resolved: Sinus drainage / SNOMED CT 322601029 Canceled: GERD with apnea / SNOMED CT 2808232567 Histories Past Medical History: Resolved GERD - Gastro-esophageal reflux disease (8081968378): Resolved. Appendicitis (535182427): Resolved. Cough (35692407): Resolved. Sinus drainage (948699672): Resolved. Procedure history: Cardiac catheterization procedure (03893612) on 09/17/2021 at 65 Years. EGD - Esophagogastroduodenoscop y (5275939944) on 04/01/2021 at 65 Years. Appendectomy (430995875) on 10/19/2017 at 62 Years. Ureterorenoscopy with fragmentation and removal of kidney stone (1890130070). EGD - Esophagogastroduodenoscop y (7340967963). Comments: 03/08/2021 10:09 EDT - Helio Navarrete MA during early 40s Tonsillectomy with adenoidectomy (60576341). Arthroplasty of knee (17348033). Arthroplasty of knee (15601712). Social History Social & Psychosocial Habits Alcohol [...] Nicky Ospina RN (more content not included)... [facility] Comment on above: Result Comment: Elec tronically Signed By: Bryce Melgar DO, Lb Sandy\.br\Date and Time Signed: 04/03/23 09:37 EDT Consent for Procedure/Surger yon 03-17-2023 Consent for Procedure/Surgery [id number]#1.00CD:12 7 [facility] Consent for Treatmenton 02-18 Consent for Treatment [id number]#1.00CD:1 27 [facility] Discharge Instructionson Discharge Instructions [id number]#1.00CD:12 7 [facility] IntraOperative Documentson 0 03-17-2023 IntraOperative Documents [id number]#1.00CD:12 7 [facility] Main OR Intraoperative Recor don 03-17-2023 Main OR Intraoperative Record IntraOp Document Type FTPM Summary Primary Physician: Demar Trammell MD Finalized Date/Time: 03/17/23 11:36:22 Pt. Name: CHLOE AGARWAL/Sex: 1955 Female Med Rec #: [id number] Physician: Demar Trammell MD Financial #: [id number] Pt. Type: P Room/Bed: / Admit/Disch: 03/17/23 [...] Velma Garcia Role Performed Surgeon - Primary Collection Team Lead - Primary Scrub - Primary Time In 03/17/23 11:30:00 03/17/23 11:30:00 03/17/23 11:30:00 Time Out 03/17/23 11:36:00 03/17/23 11:36:00 03/17/23 11:36:00 Procedure TRANSFORAMINAL EPIDURAL TRANSFORAMINAL EPIDURAL TRANSFORAMINAL EPIDURAL STEROID STEROID STEROID INJECTIO(Bilateral) INJECTIO(Bilateral) INJECTIO(Bilateral) Comments Last Modified By: Antoinette Erickson RN, RN, Antoinette Walker RN 03/17/23 11:35:07 03/17/23 11:35:07 03/17/23 11:35:07 Entry 4 Case Attendee Antionette Carmona Role Performed Application Programmer Analyst Time In 03/17/23 11:30:00 Time Out 03/17/23 [...] No Time Out Antoinette Erickson RN, Chung DUMONT, Valeri Moura MD, Kristine Hylton Amy Time [...] and tissue Entry 1 Skin Integrity Intact, Reedy, Warm, and Skin Abnormality No Dry Outcomes [...] Safety Strap, (more content not included)... Normal [facility] Main OR Preoperative Recordo n 03-17-2023 Main OR Preoperative Record Holding Area Document Type FTPM Summary Primary Physician: Demar Trammell MD Finalized Date/Time: 03/17/23 11:09:08 Pt. Name: CHLOE AGARWAL Arlen Powell/Sex: 1955 Female Med Rec #: [id number] Physician: Demar Trammell MD Financial #: [id number] Pt. Type: P Room/Bed: / Admit/Disch: 03/17/23 10:05:44 - Institution: Case Times Holding FTPM Pre-Care Text: Verifies consent for planned procedure, identifies individual values and wishes concerning care, includes family members in perioperative teaching Secures patient's records' belongings, and valuables, maintains patient's dignity and privacy, and maintains patient confidentiality Entry 1 In Holding 03/17/23 11:07:00 Outcomes Met? Yes Last Modified By: Coleen DUMONT, Virgie Mai 03/17/23 11:07:44 Post-Care Text: The patient participates [...] Signed By: Virgie Horne RN 03/17/23 11:09 [facility] Office/Clinic Note-Nurseon 0 03-17-2023 Office/Clinic Note-Nurse Pt c/o feeling wobbly when standing . Pt assisted back to the cart. Pt assisted back to cart and pt given snack. Pt reports feeling better after eating chips. Pt able to stand @ cartside. Pt escorted out in w/c. [facility] Comment on above: Result Comment: Elec tronically [...] Respiratory Rate 12 br/min LOW . Normal [facility] Comment on above: Result Comment: Elec tronically Signed By: Valeri CANTRELL, Demar Preston.br\Date and Time Signed: 03/17/23 11:34 EDT RAD - CT Reporton 03-12-2023 RAD - CT Report [id number]#1.00CD:12 7 Normal [facility] Lab Reportson 03-04-2023 Lab Reports [id number]#1.00CD:12 7 Normal [facility] CREATININEon 03-03-2023 Creatinine [Mass/Vol] 0.89 mg/dL Normal 0.55-1.02 [facility] Comment on above: Performed By: #### C LING #### [facility] [address] [place] [address] Dr. Lorraine Scott EGFR-AF YEMENI >60 Normal >=60 [facility] Comment on above: Performed By: #### C LING #### [facility] [address] [place] [address] Dr. Lorraine Scott EGFR-NON AF YEMENI >60 Normal >=60 [facility] Comment on above: Performed By: #### C LING #### [facility] [address] [place] [address] ABD/PELV W CONon [...] by: RYAN VAZQUEZ Date: 2023-03-03 10:08 Normal [facility] Patient Correspondenceon Patient Correspondence [id number]#1.00CD:1 27 Normal [facility] Facesheeton 02-24-2023 Facesheet [id number]#1.00CD:12 7 Normal [facility] Consent for Procedure/Surger yon 02-23-2023 Consent for Procedure/Surgery [id number]#1.00CD:12 7 Normal [facility] Consent for Surgery/Procedur e Officeon 02-23-2023 Consent for Surgery/Procedure Office [id number]#1.00CD: 127 Normal [facility] Consultation Noteon 02-24-20 Consultation Note Patient: CHLOE [...] All Problems BMI 34.0-34.9,adult / SNOMED CT 006090984 / Confirmed Chest pain due to GERD / SNOMED CT 42324962 / Confirmed Chronic GERD / SNOMED CT 195116458 / Confirmed Dysphagia / SNOMED CT 55541503 / Confirmed Epigastric pain / SNOMED CT 376781024 / Confirmed Gastritis / SNOMED CT 6461718 / Confirmed H/O: osteoarthritis / SNOMED CT 360661859 / Confirmed HTN (hypertension) / SNOMED CT 2566057099 / Confirmed Osteoporosis / SNOMED CT 065742903 / Confirmed Regurgitation of stomach contents / SNOMED CT 340462523 / Confirmed Screening for malignant neoplasm of colon / SNOMED CT 169941709 / Confirmed Unilateral primary osteoarthritis, right knee / SNOMED CT 0791412842 / Confirmed Vertigo / SNOMED CT 0748345015 / Confirmed Histories Past Medical History: Resolved GERD - Gastro-esophageal reflux disease (6407962289): Resolved. Appendicitis (415985484): Resolved. Cough (34425740): Resolved. Sinus drainage (952974269): Resolved. Family History: Acute congestive heart failure Mother Father Hypertension Sister Procedure history: Cardiac catheterization procedure (74226344) on 09/17/2021 at 65 Years. EGD - Esophagogastroduodenoscop y (9887604465) on 04/01/2021 at 65 Years. Appendectomy (694585600) on 10/19/2017 at 62 Years. Ureterorenoscopy with fragmentation and removal of kidney stone (9830365269). EGD - Esophagogastroduodenoscop y (0408086040). Comments: 03/08/2021 10:09 EDT - Helio Navarrete MA during early 40s Tonsillectomy with adenoidectomy (58736267). Arthroplasty of knee (39379482). Arthroplasty of knee (28002680). Social History Social & Psychosocial Habits Alcohol 09/18/2019 Use: Current Comment: denies - 09/18/2019 13:18 - Rosina Bales RN 09/07/2020 Risk Assessment: Denies Alcohol Use Comment: Denies. - 09/01/2021 23:12 - Nicky Ospina RN Substance Abuse 09/07/2020 Risk Assessment: Denies Substance Abuse Comment: Lexis. - 09/01/2021 23:12 - Anai DUMONT, Nicky Brito Tobacco 09/18/2019 Risk Assessment: Denies Tobacco Use 02/20/2023 Tobacco Use: Never (less than 100 in l Smokeless tobacco use: Never Comment: Lexis. - 09/01/2021 23:12 - Anai DUMONT, Nicky Brito . Physical Examination Vital Signs (last 24 hrs) Last Charted Heart Rate Peripheral 62 bpm (FEBRUARY 23:32) SBP H 150mmHg (FEBRUARY 23:) DBP H [...] palpation. Lympha (more content not included)... Normal [facility] Comment on above: Result Comment: Elec tronically Signed By: Valeri CANTRELL, Demar Leal\.br\Date and Time Signed: 02/23/23 13:22 EDT HIPAA Forms Officeon 023 HIPAA Forms Office [id number]#1.00CD:12 7 [facility] Legal Correspondence Officeo n 02-23-2023 Legal Correspondence Office [id number]#1.00CD:12 7 [facility] Legal Correspondence Office [id number]#1.00CD:12 7 [facility] Office/Clinic Note-Physician on 02-23-2023 Office/Clinic Note-Physician [id number]#1.00CD:12 7 [facility] Patient Correspondenceon Patient Correspondence [id number]#1.00CD:12 7 [facility] Patient Correspondence [id number]#1.00CD:12 7 [facility] Patient Correspondence [id number]#1.00CD:12 7 [facility] Patient Correspondence [id number]#1.00CD:12 7 [facility] Patient Correspondence [id number]#1.00CD:12 7 [facility] Patient Correspondence [id number]#1.00CD:12 7 [facility] Patient History Officeon Patient History Office [id number]#1.00CD:12 7 [facility] Ambulatory Visit Summaryon 0 02-20-2023 Ambulatory Visit [...] GERD - Gastro-esophageal reflux disease Sinus drainage [facility] Outside Records Officeon Outside Records Office [id number]#1.00CD:1 27 Normal [facility] Radiology Outside Office Food And Beverage Lead yon 02-20-2023 Radiology Outside Office Copy [id number]#1.00CD:1 27 [facility] RAD - Ultrasound Reporton RAD - Ultrasound Report [id number]#1.00CD:12 7 Normal [facility] US SINGLE QUAD RT UPPERon US SINGLE [...] RYAN VAZQUEZ Date: 2023-02-09 11:57 Normal [facility] Physician Referralon 023 Physician Referral [id number]#1.00CD:12 7 Normal [facility] Covid-19 PCR ([facility])on 10-19 SARS-CoV-2 (COVID-19) RNA SHAHEEN+probe Ql (Unsp spec) Detected Abnormal NOT DETECTED [facility] Comment on above: Result Comment: This test is not yet approved or cleared by the [place] FDA. When there are no FDA-approved or cleared tests available, and other criteria are met, FDA can make tests available under an emergency access mechanism called an Emergency Use Authorization (EUA). The EUA for this test is supported by the [place] of Health and Human Service's declaration that [...] longer be used). Performed By: #### [facility] #### [facility] [address] [place] [address] Dr. Lorraine Scott INFLUENZA A AND B AGon 11-05 INFLUANEGH SEE BELOW Normal [facility] Comment on above: Result Comment: Nega tive for Flu A protein angiten. Infection due to Flu A cannot be ruled out. Flu A angiten in the sample may be below the detection limit of the test. Performed By: #### I NFLUAB #### [facility] [address] [place] [address] Dr. Lorraine Scott INFLUBNEG SEE BELOW Normal [facility] Comment on above: Result Comment: Nega tive for Flu B protein antigen. Infection due to Flu B cannot be ruled out. Flu B antigen in the sample may be below the detection limit of the test. Performed By: #### I NFLUAB #### [facility] [address] [place] [address] Dr. Lorraine Scott INFLUENZA A AG Negative Normal NEGATIVE SEE COMMENT [facility] Comment on above: Performed By: #### I NFLUAB #### [facility] [address] [place] [address] Dr. Lorraine Scott INFLUENZA B AG Negative Normal NEGATIVE SEE COMMENT [facility] Comment on above: Performed By: #### I NFLUAB #### [facility] [address] [place] [address] Dr. Lorraine Scott MG MAMM SCREEN 3D LAURA CADon 10-22-2022 MG MAMM SCREEN 3D LAURA CAD Patient: CHLOE AGARWAL Exam Date: 10/22/2022 : 1955 Gender:F Ordering : DR JUAN CARLOS GIFFORD . Admission #: [id number] Family : Order #: [id number] CLICK HERE TO VIEW EXAM RADIOLOGY REPORT [...] Treatments None Family Cancers None LOCATION: [facility] BREAST COMPOSITION: Scattered areas fibroglandular density. [...] Ryan Vazquez M.D. on 10/23/2022 at 08:41 [facility] XR DEXA BONE DENSITYon 10-22 XR DEXA [...] authenticated by: RYAN VAZQUEZ Date: 2022-10-22 09:12 [facility] PAP ACOG PANEL 2: 30 to 65on 10-03-2022 . . Normal [facility] Comment on above: Result Comment: Perf ormed at: WB Performed By: #### 4 [id number] #### [facility] [address] [address] [address] Lorraine Scott Age Gdln ACOG Testing 30-65 Normal [facility] Comment on above: Performed By: #### [id number] #### [facility] [address] [place], [place] [address] Dr. Lorraine Scott DIAGNOSIS: Comment [facility] Comment on above: Result Comment: NEGA TIVE FOR INTRAEPITHELIAL LESION OR MALIGNANCY. CELLULAR CHANGES ASSOCIATED WITH ATROPHY ARE PRESENT. Performed at: WB Performed By: #### 4 [id number] #### [facility] [address] [place] [address] Dr. Lorraine Scott HPV Aptima Negative Normal Negative [facility] Comment on above: Result Comment: This nucleic acid amplification test detects fourteen high-risk HPV types (16,18,31,33,35,39,45,51,52,56,58,59,66,68) without differentiation. Performed at: =G Performed By: #### 4 [id number] #### [facility] [address] [place] [address] Dr. Lorraine Scott HPV Genotype Reflex Comment Normal [facility] Comment on above: Result Comment: Crit eria not met, HPV Genotype not performed. Performed at: WB Performed By: #### 4 [id number] #### [facility] [address] [place] [address] Dr. Lorraine Scott Methodology: Comment Normal [facility] Comment on above: Result Comment: This liquid based ThinPrep(R) pap test was screened with the use of an image guided system. Performed at: WB Performed By: #### 4 [id number] #### [facility] [address] [place] [address] Dr. Lorraine Scott Note: Comment Normal [facility] Comment on above: Result [...] Performed at: WB Performed By: #### 4 [id number] #### [facility] [address] [place] [address] Dr. Lorraine Scott Performed by: Comment Normal [facility] Comment on above: Result Comment: Kong Juarez, Civil Transportation Engineer (ASCP) Performed at: WB Performed By: #### 4 [id number] #### [facility] [address] [place] [address] Dr. Lorraine Scott Specimen adequacy: Comment Normal [facility] Comment on above: Result Comment: Sati sfactory for evaluation. Endocervical component may not be distinguished in cases of atrophy. Performed at: WB Performed By: #### 4 [id number] #### [facility] [address] [address] [address] Lorraine Scott CHEMISTRYOrdered By: SYSTEM SYSTEM [...] rate/Area] mL/min/1.73 m2 Normal >=59mL/min /1.73 m2 [facility] Chem S GFR/1.73 sq M.predicted among non-blacks MDRD (S/P/Bld) [Vol rate/Area] 56 mL/min/1.73 m2 Low >=59mL/min /1.73 m2 [facility] Chem S Glucose [Mass/Vol] 104 mg/dL Normal 55 - 199 mg/dL FT Remisol Potassium [Moles/Vol] 4.6 mmol/L Normal 3.5 - 5.3 mmol/L [facility] Remisol Sodium [Moles/Vol] 138 mmol/L Normal 135 - 145 mmol/L FT Remisol Urea nitrogen [Mass/Vol] 20 mg/dL Normal 5 - 21 mg/dL FT Remisol Urea nitrogen/Creatinine [Mass ratio] 20 mg/mg Normal 10 - 20 [facility] Remisol breast LT limited 06-26 breast LT [address] [address] Mammography Report Signed Patient: Chloe Agarwal MR#: [id number] : 1955 Acct:[id number] Age/Sex: 65 / F ADM Date: 06/26/21 Loc: DC Room: Type: REG CLI Attending Dr: Juan Carlos Gifford MD Ordering Provider: Juan Carlos Gifford MD Date of Service: 06/26/21 MM/MM diagnostic mammo BI w/CAD: BREAST PAIN ([id number]) US/US breast LT limited: BREAST PAIN Copies [...] Cira Pena M.D.06/26/2021 11:36 AM Dictation Location: [facility] Transcribed By: [facility] 06/26/21 1136 Dictated By: Cira Pena MD 06/26/21 0804 Signed By: 06/26/21 1136 [facility] Intraoperative Noteon 2017 Intraoperative Note [id number]#1.00OTGTIF F [facility] Coding Summaryon 12-14-2017 Coding Summary CODING DATE: 018 [facility] STATUS: Home PAYOR: Commercial Insurance APC DESCRIPTION 5361 Level 1 Laparoscopy and Related Services ADMIT DX: REASON FOR VISIT DX: K35.80 Unspecified acute appendicitis FINAL DX: PRINCIPAL: K35.80 Unspecified acute appendicitis SECONDARY: K21.9 Gastro-esophageal reflux disease without esophagitis PYMT PROC APC STAT DESCRIPTION DOCTOR NAME DATE 55712 5361 J1 Laparoscopy, shahla, Adryan Yoon MD appendectomy NOTE: The code number assigned matches the documented diagnosis and / or procedure in the patient's chart. However, the narrative phrase printed from the coding software may appear abbreviated, or result in slightly different terminology. Coded By: Tenisha Smith Date Saved: 12/14/2017 09:53 am [facility] Lab - Other Lab Resultson Lab - Other Lab Results [id number]#1.00OTGTIF F [facility] Operative Report - Surgeon/P avery 12-09-2017 Operative [...] theprocedure without any difficulties.Adryan Yoon M.D.JOB #: [id number]: 12/09/2017T: 12/09/2017[Electronically Signed on: 12/15/2017 10:32 EST] Adryan Yoon MD[Verified on: 12/15/2017 10:32 EST] Adryan Yoon MD[Transcribed on: 12/09/2017 09:14 EST]GDU [facility] Outside Recordson 12-09-2017 Outside Records [id number]#1.00OTGTI FF [facility] Outside Records [id number]#1.00OTGTI [facility] MAGR Postoperative Recordon 12-08-2017 MAGR Postoperative Record MAGR Phase II Record Summary Primary Physician: Adryan Yoon MD Finalized Date/Time: 12/08/17 13:12:55 Pt. Name: CHLOE AGARWAL./Sex: 1955 FEMALE Med Rec #: [id number] Physician: Adryan Yoon MD Financial #: [id number] Pt. Type: D Room/Bed: [facility] Admit/Disch: 12/04/17 03:05:00 - 12/05/17 12:30:00 [...] discharge instructions. General Comments: care per 2 [facility] nursing personnel Finalized By: Chloe Turcios RN Document Signatures Signed By: Chloe Turcios RN 12/08/17 13:12 [facility] Operative Report - Surgeon/P avery 12-08-2017 Operative Report - Surgeon/Physician [id number]#1.00OTGTIF [facility] Pathology Sendout Teston Pathology Send Out. See Report [facility] Comment on above: Order Comment: JANET COWART Performed By: #### 2 [id number] ####[facility] (DEFAULT)[address] [place] [address] Provider Orderson 12-08-2017 Provider Orders [id number]#1.00OTGTIF [facility] Consent Formson 12-07-2017 Consent Forms [id number]#1.00OTGTIF F [facility] Intraoperative Noteon 2017 Intraoperative Note [id number]#1.00OTGTI FF [facility] Medication Managementon 11-19 Medication Management [id number]#[facility] Tele[facility]pson 8 Telemetry Strips [id number]#1.00[facility] Discharge Summaryon 12-06-19 Discharge Summary DISCHARGE DIAGNOSIS: Acute appendicitis.DISCHARGE CONDITION: Good.HOSPITAL COURSE: The patient is a 62-year-old woman who presented [facility] emergency department. She was found to have a slightlyelevated white blood cell count. A CT scan was consistent with acuteappendicitis. The patient wanted to be transferred to [facility] andas a result, she underwent a laparoscopic appendectomy. Postoperatively sheis doing well. Her white blood cell count decreased to the normal range. Sheis tolerating a regular diet. Her pain is controlled and she is ambulatingwithout difficulty. As a result, she will be discharged home. She willfollow-up with me in two weeks.Adryan Yoon M.D.JOB #: [id number]: 12/05/2017T: 12/06/2017[Electronically Signed on: 12/09/2017 07:13 EST] Adryan Yoon MD[Verified on: 12/09/2017 07:13 EST] Adryan Yoon MD[Transcribed on: 12/06/2017 08:45 EST]GDU Normal [facility] .Auto Diff 1on 12-05-2017 Auto Baso % 0.1 % Low 0.2-2.0 [facility] Comment on above: Performed By: #### 7 [id number], [id number] ####[facility] (DEFAULT)[address] [place] [address] Auto Deuel % 8 % Normal 1-12 [facility] Comment on above: Performed By: #### 7 [id number], [id number] ####[facility] (DEFAULT)[address] [place] [address] Auto Neut % 86 % Normal 44-88 [facility] Comment on above: Performed By: #### 7 [id number], [id number] ####[facility] (DEFAULT)[address] [place] [address] Baso Abs# 0.0 x10 Normal 0.0-0.2 [facility] Comment on above: Performed By: #### 7 [id number], [id number] ####[facility] (DEFAULT)[address] [place] [address] Eos Abs# 0.0 x10 Normal 0.0-0.4 [facility] Comment on above: Performed By: #### 7 [id number], [id number] ####[facility] (DEFAULT)[address] [place] [address] Eosinophils/100 leukocytes 0.0 % Low 0.9-4.0 [facility] Comment on above: Performed By: #### 7 854486, [id number] ####[facility] (DEFAULT)[address] [place] [address] Lymphocytes 0.6 x10 Low 1.3-2.9 [facility] Comment on above: Performed By: #### 7 822815, [id number] ####[facility] (DEFAULT)[address] [place] [address] Lymphocytes/100 leukocytes 6 % Low 14-48 [facility] Comment on above: Performed By: #### 7 [id number], [id number] ####[facility] (DEFAULT)[address] [place] [address] Deuel Abs# 0.9 x10 High 0.0-0.8 [facility] Comment on above: Performed By: #### 7 [id number], [id number] ####[facility] (DEFAULT)[address] [place] [address] Neut Abs# 9.9 x10 High 1.5-9.2 [facility] Comment on above: Performed By: #### 7 148248, [id number] ####[facility] (DEFAULT)[address] [place] [address] CBC w/ Auto Diffon 8 Erythrocyte distribution width Auto Ratio (RBC) 13.6 % Normal 11.5-15.0 [facility] Comment on above: Performed By: #### 7 [id number], [id number] ####[facility] (DEFAULT)[address] [place] [address] Erythrocytes (RBC) 3.75 x10 Normal 3.70-5.30 [facility] Comment on above: Performed By: #### 7 [id number], [id number] ####[facility] (DEFAULT)[address] [place] [address] Hematocrit (HCT) 34.4 % Normal 33.7-40.4 [facility] Comment on above: Performed By: #### 7 [id number], [id number] ####[facility] (DEFAULT)[address] [place] [address] Hemoglobin mass conc (Bld) 11.0 g/dL Low 11.3-15.9 [facility] Comment on above: Performed By: #### 7 875449, [id number] ####[facility] (DEFAULT)[address] [place] [address] Man Diff? Auto Normal [facility] Comment on above: Performed By: #### 7 745251, [id number] ####[facility] (DEFAULT)[address] [place] [address] MCH 29 pg Normal 24-34 [facility] Comment on above: Performed By: #### 7 [id number], [id number] ####[facility] (DEFAULT)[address] [place] [address] MCHC mass conc (RBC) 32 g/dL Normal 26-37 [facility] Comment on above: Performed By: #### 7 [id number], [id number] ####[facility] (DEFAULT)[address] [place] [address] MCV 92 fL Normal 81-100 [facility] Comment on above: Performed By: #### 7 737694, [id number] ####[facility] (DEFAULT)[address] [place] [address] Platelet mean volume (PMV) 11.7 fL High 6.3-10.2 [facility] Comment on above: Performed By: #### 7 [id number], [id number] ####[facility] (DEFAULT)[address] [place] [address] Platelets 204 x10 Normal 138-427 [facility] Comment on above: Performed By: #### 7 [id number], [id number] ####[facility] (DEFAULT)[address] [place] [address] WBC (Leukocytes) 11.4 x10 High 3.5-10.5 [facility] Comment on above: Performed By: #### 7 246700, [id number] ####[facility] (DEFAULT)[address] [place] [address] Education Noteon 12-05-2017 Education Note Education MaterialsGastroenterology [...] Reviewed: 02/20/2016Padilla Interactive Patient Education ? 2017 [employer] Normal [facility] Inpatient Clinical Summaryon 12-05-2017 Inpatient Clinical Summary [facility]SOUTHClinical Discharge SummaryPERSON INFORMATIONName CHLOE AGARWAL Age 62 Years 59Sex FEMALE Language Citizen Of [place] PCP Agus MCGHEE Status Med Service Ambulatory SurgeryN [id number] Acct# Arrival 12/04/17 03:05:00Visit Reason APPENDICITIS Acuity LOS 000 34:38Address:[address] [place] [address]Klditjf:PROVIDER INFORMATIONVITALS INFORMATIONVital Sign Triage LatestTemp Oral 36.8 DegC 36.4 DegCTemp TemporalTemp IntravascularTemp AxillaryTemp Amikrm30 Sat 99 % 99 %Respiratory Rate 16 br/min 18 br/minPeripheral Pulse Rate 79 bpm 60 bpmApical Heart Rate 76 bpm 60 bpmBlood Pressure 138 mmHg / 86 mmHg 97 mmHg / 59 mmHgComment:MEDICAL INFORMATIONAllergy Info:Allergies sulfonamidePrescriptions Given:Home Meds Displayacetaminophen-hydr ocodone (Cosby 7.5 mg-325 mg oral tablet) 1 tab(s), [...] hours as needed for for painacetaminophen-hydroco done (Cosby 7.5 mg-325 mg oral tablet) 1 tab(s) [...] range between ( 1.3 and 2.9 ) Deuel Abs#: 0.9 x103/mcL -- Normal range between ( 0.0 and 0.8 ) Auto Baso %: 0.1 % -- Normal range between ( 0.2 and 2.0 ) Auto Deuel %: 8 % -- Normal range between [...] ppendicitisFollow up:With: Address: When:Adryan Yoon MD [address] [facility] [address] [place], [place] [id number] Business (1)DIAGNOSIS1:Acute appendicitisPROBLEMSProbl ems Active Arthritis Heart murmur HeartburnComment:PHYS DOC NOTES Normal [facility] Inpatient Patient Summaryon 12-05-2017 Inpatient Patient Summary [facility] [place], [place] [id number] patient Discharge InstructionsName: CHLOE AGARWALDOB: [birth year] Address: [address] [facility] [address]Junqevq Care Provider:Name: CRKarel GILBERTOHERNANDEZPhone: After you are discharged if you find you have any questions, please, call [phone] ext [phone] to speak to a nurse.Discharge Diagnosis: 1:Acute [...] or business decisions or sign any legal documentsOhiohealth Berger Hospital would like to thank you for allowing us to assist you with your healthcare needs. The following includes patient education materials and information regarding your injury/illness.CHLOE AGARWAL has been given the following list of follow-up instructions, prescriptions, and patient education materials:Follow-up InstructionsWith: Address: When:Adryan Yoon MD [address] [facility] [place] [address] Business (1)MedicationsDuring the course of your visit, your medication list was updated with the most current information. The details of those changes are reflected below:Medications to Continue That Have Not ChangedOther Medicationsacetaminophen- hydrocodone (Cosby 7.5 mg-325 mg oral tablet) 1 tab(s) [...] that you can keep with you.acetaminophen-hydroco done (Cosby 7.5 mg-325 mg oral tablet) 1 tab(s) [...] Reviewed: 02/20/2016Elsevier Interactive Patient Education ? 2017 [employer].Viruses or BacteriaWhat?s got you sick?Antibiotics only treat [...] for Disease Control and Prevention June 2014 [facility] Progress Note - Nurseon 11-19 Pulse (Heart [...] Pt. calm.[Electronically Signed on: 12/05/2017 09:52 EST] Mainou Sim shepard RN[Verified on: 12/05/2017 09:52 EST] MainSim leiva RN [facility] Progress Note - Nurse Pt walking the sachin lway with RN, 200 ft, standby assist. Pt is steady. No c/o SOB or dizziness. Bilateral upper and lower abdominal pain 3/10, prn norco administered as ordered. Will continue to monitor, call light in reach.[Electronically Signed on: 12/05/2017 05:50 EST] Serina Cross[Verified on: 12/05/2017 05:50 EST] Serina Cross [facility] Progress Note - Nurse Pt is [...] alarm on.[Electronically Signed on: 12/04/2017 23:39 EST] ChioedwinSerina[Verified on: 12/04/2017 23:39 EST] America Serina [facility] Anesthesia Noteon 12-04-2017 Anesthesia Note Patient: CHLOE AGARWAL : 62 years Sex: FEMALE : [birth year]Associated Diagnoses: NoneAuthor: Fernie Sandovalostoperative InformationPost Operative Note: Post Anesthesia Care Unit.Review / ManagementCondition: Stable.AssessmentAnesthet ic outcomeNo anesthetic complications noted.PlanTransfer/ Discharge: Patient can be discharged from PACU when criteria met.Condition good.[Electronically Signed on: 12/04/2017 15:01 EST] Fernie Carver DO[Verified on: 12/04/2017 15:01 EST] Fernie Carver DO [facility] Anesthesia Note Patient: CHLOE AGARWAL : [...] 400 mg = 2 cap(s), PRN, PO, [id number] 20 mg oral delayed release capsule 20 mg = 1 cap(s), PO, DailyProblem list (past medical history):All ProblemsAlteration in comfort: pain / SNOMED CT 41701341 / ConfirmedArthritis / SNOMED CT 2006851 / ConfirmedHeart murmur / SNOMED CT 006933394 / ConfirmedHeartburn / SNOMED CT 72691365 / ConfirmedResolved: Kidney stones / SNOMED CT 015401018Hrhleyiu: History of renal stent / SNOMED CT 4235379692Fdzfncdi: Acute appendicitis / SNOMED CT 538399746OplqcyasyRowtkj History:DementiaFatherLiv er massSisterCHF (congestive heart failure)MotherFatherProce dure history:History of right total knee replacement (895496712987696).History of left total knee replacement (924522914957359).Tonsill ectomy (273331170).Removal of ureteral stent (190729106).History of ureteral stent placement (2643323874).Social History Alcohol Assessment Use: Never. Tobacco Assessment Never (less than 100 in lifetime) Tobacco Use:. Substance Abuse Assessment Substance use: Never. 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 Home/Environment Assessment Lives with Children, Spouse. Living situation: Home/Independent. Nutrition/Health Assessment Regular, Caffeine intake amount: Hot tea in the morning..Social & Psychosocial UnvddqLbxwvkw56/16/2018 Alcohol Use: NeverEmployment/Kueits00 Status: Self employed Description: Office workHome/Jcsygdlplqq15/16 /2018 Lives with: Children, Spouse Living situation: Home/IndependentNutrition /Egbmst3512/04/2017 Type of diet: Regular Caffeine intake amount: Hot tea in the morningSubstance Abuse12/04/2017 Substance use: JngooKiyevow82/16/2018 Smoking tobacco use: Never (less than 100 in l.Physical ExaminationVS/Measurement sMeasurements from flowsheet : Rxifkskvpmjo31/16/18 03:09 EST Height 152.400 cm Height/Length Dosing 152.400 cm Weight 71.200 kg Weight Dosing 71.200 kg Body Mass Index 30.660 kg/m2,Vital Signs (last 24 hrs) Last ChartedTemp Oral 36.7 DegC (DEC 04:00)Heart Rate Peripheral 76 bpm (DEC 04:00)Resp Rate 18 br/min (DEC 04:00)SBP 123 mmHg (DEC 04:)DBP 77 mmHg (DEC 04:)SpO2 99 % (DEC 04:)Weight 71.200 kg (DEC 04 03:09)Height 152.40 cm (DEC 04 03:09)General: Alert and oriented, No acute distress.Airway: Mallampati classification: II (soft palate, fauces, uvula visible). Temporomandibular joint mobility: Good. Mouth: Teeth ( [place] ). Neck: Non-tender, Full range of motion.Respiratory: [...] 12/04/2017 08:38 EST] Fernie Carver DO Normal [facility] History and Physicalon 12-04 History and Physical DATE OF ADMISSION: 12/04/17 MEDICAL HISTORYCHIEF COMPLAINT: Right lower quadrant abdominal pain.HISTORY OF PRESENT ILLNESS: The patient is a 62-year-old woman withabdominal pain. She presented to the emergency department at [facility]. A CT scan of the abdomen and pelvis was obtained which wasconsistent with acute appendicitis. Due to personal reasons, she did notwant the surgery performed at [facility] and as a result, shewanted to be transferred to [facility]. [...] to undergo the procedure.Adryan Yoon M.D.JOB #: [id number]: 12/04/2017T: 12/04/2017[Electronically Signed on: 12/04/2017 07:16 EST] Adryan Yoon MD[Verified on: 12/04/2017 07:16 EST] Adryan Yoon MD[Transcribed on: 12/04/2017 06:52 EST][facility] MAGR Intraoperative Recordon 12-04-2017 MAGR Intraoperative Record MAGR Intra-Op Record Summary Primary Physician: Adryan Yoon MD Finalized Date/Time: 12/04/17 15:26:26 Pt. Name: CHLOE AGARWAL/Sex: 1955 FEMALE Med Rec #: [id number] Physician: Adryan Yoon MD Financial #: [id number] Pt. Type: D Room/Bed: [facility]/ Admit/Disch: 12/04/17 03:05:00 - Institution: Case Times [...] Role Performed Surgeon - Primary Anesthesiologist of Collection Team Lead Record Time In 12/04/17 09:44:00 12/04/17 09:44:00 12/04/17 09:44:00 Time Out 12/04/17 10:42:00 12/04/17 10:42:00 12/04/17 10:42:00 Procedure Appendectomy Appendectomy Appendectomy Laparoscopic Laparoscopic Laparoscopic Last Modified By: Olinda Mora Cynthia M Cartier, Cynthia M 12/04/17 10:56:16 12/04/17 10:56:16 12/04/17 10:56:16 Entry 4 Entry 5 Entry 6 Case Attendee Jennifer Li INSURANCE MARKETING SPECIALIST BOARD CSFA/INSURANCE MARKETING SPECIALIST, Antonia Bah RN Role Performed Finishing Department Supervisor Scrub Personnel Collection Team Lead Time In 12/04/17 09:44:00 12/04/17 09:44:00 12/04/17 [...] Count Time 12/04/17 09:50:00 Performed By BOARD CSFA/INSURANCE MARKETING SPECIALIST, YESENIA Counts Verification Final Counts Items Included in Sponges, Sharps Final Count Method Manual Final Count Final Count Status Correct Final Counts Olinda Mora, Performed By BOARD CSFA/INSURANCE MARKETING SPECIALIST, YESENIA Surgeon notified of Yes final counts [...] UNIT FLOWTRON FOOT CUFF REG Serial ?# [id number] Equipment Setting FACTORY SETTINGS Last Modified By: [...] Description Condition Intact Description Report Given To Vrenell Gunderson RN Airway Maintenance Patient Status Stable Oxygen in Use? Yes Airway Device Simple mask Flow Rate 8 L/min Last Modified By: Olinda Mora 12/04/17 11:53:41 Case Comments Finalized By: Antonia Pérez RN Document Signatures Signed By: Antonia Pérez RN 12/04/17 15:26 Normal [facility] MAGR PACU Recordon 8 MAGR PACU Record MAGR PACU Record [facility] Physician: Adryan Yoon MD Finalized Date/Time: 12/04/17 11:35:32 Pt. Name: CHLOE AGARWAL /Sex: 1955 FEMALE Med Rec #: [id number] Physician: Adryan Yoon MD Financial #: [id number] Pt. Type: D Room/Bed: 229/1 Admit/Disch: 12/04/17 03:05:00 - Institution: PACU Case Times MAGR Entry 1 In PACU I 12/04/17 10:44:00 Discharge from PACU 12/04/17 11:25:00 I Last Modified By: Vernell Gunderson RN 12/04/17 11:35:30 Finalized By: Vernell Gunderson RN Document Signatures Signed By: Vernell Gunderson RN 12/04/17 11:35 [facility] Progress Note - Nurseon 11-19 Progress [...] on: 12/04/2017 04:41 EST] Liliane Rivero RN [facility] Vital Signs Date Time Vital Sign Value Performing Clinician Davian swan 12-18-2023 13:32-0500 Blood Pressure Location Willie Kaur [facility] 12-18-2023 13:32-0500 Diastolic blood pressure 70 mm[Hg] Willie Kaur [facility] 12-18-2023 13:32-0500 Heart rate 60 /min Willie Kaur [facility] 12-18-2023 13:32-0500 SaO2% (BldA) [Mass fraction] 99 % Willie Scottyflowermarcos [facility] 12-18-2023 13:32-0500 Systolic blood pressure 110 mm[Hg] Willie Kaur [facility] 11-25-2023 09:00-0500 Body height 152.4 cm Antionette LOPEZ Work Phone: [facility] 11-25-2023 09:00-0500 Body mass index (BMI) [Ratio] 33.22 kg/m2 Antionette LOPEZ Work Phone: [facility] 11-25-2023 09:00-0500 Body weight 77.17 kg Antionette LOPEZ Work Phone: [facility] 11-25-2023 09:00-0500 Diastolic blood pressure 84 mm[Hg] Antionette LOPEZ Work Phone: [facility] 11-25-2023 09:00-0500 Systolic blood pressure 120 mm[Hg] Antionette LOPEZ Work Phone: [facility] 11-20-2023 13:11-0500 Diastolic blood pressure 81 mm[Hg] Vicky Castillo [facility] 11-20-2023 13:11-0500 Heart rate 59 /min Vicky Castillo [facility] 11-20-2023 13:11-0500 Mean blood pressure 106 mm[Hg] [facility] [facility] 11-20-2023 13:11-0500 Respiratory rate 18 /min Vicky Castillo [facility] 11-20-2023 13:11-0500 Systolic blood pressure 156 mm[Hg] Vicky Castillo [facility] 11-17-2023 11:36-0500 Diastolic blood pressure 118 mm[Hg] Landon DOUGLAS [facility] 11-17-2023 11:36-0500 Mean blood pressure 135 mm[Hg] Landon DOUGLAS [facility] 11-17-2023 11:36-0500 Systolic blood pressure 170 mm[Hg] Landon DOUGLAS [facility] 11-17-2023 11:27-0500 Blood Pressure Location Landon DOUGLAS [facility] 11-17-2023 11:27-0500 Diastolic blood pressure 107 mm[Hg] Landon DOUGLAS [facility] 11-17-2023 11:27-0500 Heart rate 68 /min Landon DOUGLAS [facility] 11-17-2023 11:27-0500 SaO2% (BldA) [Mass fraction] 98 % Landon DOUGLAS [facility] 11-17-2023 11:27-0500 Systolic blood pressure 171 mm[Hg] Landon DOUGLAS [facility] 10-26-2023 12:48-0500 Diastolic blood pressure 88 mm[Hg] Vicky Castillo [facility] 10-26-2023 12:48-0500 Heart rate 66 /min Vicky Castillo [facility] 10-26-2023 12:48-0500 Mean blood pressure 106 mm[Hg] Vicky Castillo [facility] 10-26-2023 12:48-0500 Respiratory rate 20 /min Vicky Castillo [facility] 10-26-2023 12:48-0500 Systolic blood pressure 143 mm[Hg] Vicky Castillo [facility] 10-07-2023 09:52-0500 Heart rate 68 /min Claudio Monroe [facility] 10-07-2023 09:52-0500 SaO2% (BldA) [Mass fraction] 100 % Claudio Monroe [facility] 10-07-2023 09:52-0500 Diastolic blood pressure 95 mm[Hg] Claudio Monroe [facility] 10-07-2023 09:52-0500 Mean blood pressure 113 mm[Hg] Claudio Monroe [facility] 10-07-2023 09:52-0500 Systolic blood pressure 148 mm[Hg] Claudio Monroe [facility] 10-07-2023 09:52-0500 Respiratory rate 16 /min Claudio Monroe [facility] 10-07-2023 09:45-0500 Diastolic blood pressure 94 mm[Hg] Claudio Monroe [facility] 10-07-2023 09:45-0500 Heart rate 88 /min Claudio Monroe [facility] 10-07-2023 09:45-0500 SaO2% (BldA) [Mass fraction] 100 % Claudio Monroe [facility] 10-07-2023 09:45-0500 Systolic blood pressure 178 mm[Hg] Claudio Monroe [facility] 10-07-2023 09:03-0500 Heart rate 65 /min Claudio Monroe [facility] 10-07-2023 09:03-0500 SaO2% (BldA) [Mass fraction] 98 % Claudio Monroe [facility] 10-07-2023 09:03-0500 Body temperature 97.52 [degF] Claudio Monroe [facility] 10-07-2023 09:03-0500 Diastolic blood pressure 83 mm[Hg] Claudio Monroe [facility] 10-07-2023 09:03-0500 Mean blood pressure 103 mm[Hg] Claudio Monroe [facility] 10-07-2023 09:03-0500 Systolic blood pressure 143 mm[Hg] Claudio Monroe [facility] 10-07-2023 09:03-0500 Respiratory rate 14 /min Claudio Monroe [facility] 09-22-2023 11:23-0500 Diastolic blood pressure 88 mm[Hg] Demar Trammell [facility] 09-22-2023 11:23-0500 Heart rate 60 /min Demar Valeri [facility] 09-22-2023 11:23-0500 Mean blood pressure 105 mm[Hg] Demar Valeri [facility] 09-22-2023 11:23-0500 Respiratory rate 14 /min Demar Valeri [facility] 09-22-2023 11:23-0500 Systolic blood pressure 138 mm[Hg] Demar Trammell [facility] 07-14-2023 09:26-0400 Diastolic blood pressure 78 mm[Hg] Vicky LAST [facility] 07-14-2023 09:26-0400 Mean blood pressure 101 mm[Hg] Vickyjayden LAST [facility] 07-14-2023 09:26-0400 Systolic blood pressure 146 mm[Hg] Vickyjayden LAST [facility] 07-14-2023 09:15-0400 Blood Pressure Location Vickyjayden LAST [facility] 07-14-2023 09:15-0400 Diastolic blood pressure 82 mm[Hg] Vickyjayden LAST [facility] 07-14-2023 09:15-0400 Heart rate 67 /min Vickyjayden LAST [facility] 07-14-2023 09:15-0400 SaO2% (BldA) [Mass fraction] 98 % Vickyjayden LAST [facility] 07-14-2023 09:15-0400 Systolic blood pressure 148 mm[Hg] Vickyjayden LAST [facility] 06-30-2023 15:15-0400 Diastolic blood pressure 97 mm[Hg] Landon DOUGLAS [facility] 06-30-2023 15:15-0400 Mean blood pressure 123 mm[Hg] Landon DOUGLAS [facility] 06-30-2023 15:15-0400 Systolic blood pressure 174 mm[Hg] Landon DOUGLAS [facility] 06-30-2023 15:05-0400 Blood Pressure Location Landon DOUGLAS [facility] 06-30-2023 15:05-0400 Diastolic blood pressure 98 mm[Hg] Landon DOUGLAS [facility] 06-30-2023 15:05-0400 Heart rate 80 /min Landon DOUGLAS [facility] 06-30-2023 15:05-0400 SaO2% (BldA) [Mass fraction] 99 % Landon DOUGLAS [facility] 06-30-2023 15:05-0400 Systolic blood pressure 166 mm[Hg] Landon DOUGLAS [facility] 06-08-2023 08:21-0400 Diastolic blood pressure 94 mm[Hg] Vicky Castillo [facility] 06-08-2023 08:21-0400 Heart rate 62 /min Vicky Castillo [facility] 06-08-2023 08:21-0400 Respiratory rate 16 /min Vicky Castillo [facility] 06-08-2023 08:21-0400 Systolic blood pressure 156 mm[Hg] Vicky Castillo [facility] 06-05-2023 10:45-0400 Diastolic blood pressure 70 mm[Hg] Prasad Robbie [facility] 06-05-2023 10:45-0400 Heart rate 70 /min Prasad Infantee [facility] 06-05-2023 10:45-0400 Mean blood pressure 97 mm[Hg] Prasad Avalos [facility] 06-05-2023 10:45-0400 Respiratory rate 20 /min Prasad Avalos [facility] 06-05-2023 10:45-0400 SaO2% (BldA) [Mass fraction] 96 % Prasad Avalos [facility] 06-05-2023 10:45-0400 Systolic blood pressure 152 mm[Hg] Prasad Infantee [facility] 06-05-2023 09:25-0400 Diastolic blood pressure 70 mm[Hg] Prasad Robbie [facility] 06-05-2023 09:25-0400 Heart rate 71 /min Prasad Robbie [facility] 06-05-2023 09:25-0400 Mean blood pressure 96 mm[Hg] Prasad Robbie [facility] 06-05-2023 09:25-0400 Respiratory rate 17 /min Prasad Robbie [facility] 06-05-2023 09:25-0400 SaO2% (BldA) [Mass fraction] 99 % Prasad Robbie [facility] 06-05-2023 09:25-0400 Systolic blood pressure 147 mm[Hg] Prasad Robbie [facility] 06-05-2023 08:54-0400 gluc 109 mg/dL Prasad Robbie [facility] 06-05-2023 08:54-0400 gluc Prasad Infantee [facility] 06-05-2023 08:47-0400 Body temperature 98.06 [degF] Prasad Robbie [facility] 06-05-2023 08:47-0400 Diastolic blood pressure 106 mm[Hg] Prasad Robbie [facility] 06-05-2023 08:47-0400 Heart rate 81 /min Prasad Robbie [facility] 06-05-2023 08:47-0400 Respiratory rate 20 /min Prasad Robbie [facility] 06-05-2023 08:47-0400 SaO2% (BldA) [Mass fraction] 97 % Prasad Avalos [facility] 06-05-2023 08:47-0400 Systolic blood pressure 173 mm[Hg] Prasad Avalos [facility] 04-28-2023 09:05-0400 Diastolic blood pressure 87 mm[Hg] Vickyjayden LAST [facility] 04-28-2023 09:05-0400 Mean blood pressure 111 mm[Hg] Vickyjayden MCDOWELLG [facility] 04-28-2023 09:05-0400 Systolic blood pressure 160 mm[Hg] Vickyjayden MCDOWELLG [facility] 04-28-2023 08:55-0400 Blood Pressure Location Vickyjayden MCDOWELLG [facility] 04-28-2023 08:55-0400 Diastolic blood pressure 88 mm[Hg] Vickyjayden MCDOWELLG [facility] 04-28-2023 08:55-0400 Heart rate 66 /min Vickyjayden MCDOWELLG [facility] 04-28-2023 08:55-0400 SaO2% (BldA) [Mass fraction] 97 % Vickyjayden MCDOWELLG [facility] 04-28-2023 08:55-0400 Systolic blood pressure 153 mm[Hg] Vicky STANG [facility] 04-20-2023 13:54-0400 Diastolic blood pressure 89 mm[Hg] Demar Valeri [facility] 04-20-2023 13:54-0400 Diastolic blood pressure 84 mm[Hg] Demar Trammell [facility] 04-20-2023 13:54-0400 Heart rate 72 /min Demar Valeri [facility] 04-20-2023 13:54-0400 Heart rate 62 /min Demar Valeri [facility] 04-20-2023 13:54-0400 Mean blood pressure 112 mm[Hg] Demar Valeri [facility] 04-20-2023 13:54-0400 Respiratory rate 14 /min Demar Valeri [facility] 04-20-2023 13:54-0400 Systolic blood pressure 159 mm[Hg] Demar Valeri [facility] 04-20-2023 13:54-0400 Systolic blood pressure 147 mm[Hg] Demar Valeri [facility] 04-03-2023 10:40-0400 Diastolic blood pressure 62 mm[Hg] NILL [facility] 04-03-2023 10:40-0400 Heart rate 69 /min NILL [facility] 04-03-2023 10:40-0400 Respiratory rate 32 /min NILL [facility] 04-03-2023 10:40-0400 SaO2% (BldA) [Mass fraction] 96 % NILL [facility] 04-03-2023 10:40-0400 Systolic blood pressure 100 mm[Hg] NILL [facility] 04-03-2023 10:30-0400 Diastolic blood pressure 56 mm[Hg] NILL [facility] 04-03-2023 10:30-0400 Heart rate 65 /min NILL [facility] 04-03-2023 10:30-0400 Respiratory rate 20 /min NILL [facility] 04-03-2023 10:30-0400 SaO2% (BldA) [Mass fraction] 95 % NILL [facility] 04-03-2023 10:30-0400 Systolic blood pressure 93 mm[Hg] NILL [facility] 04-03-2023 10:25-0400 Diastolic blood pressure 59 mm[Hg] NILL [facility] 04-03-2023 10:25-0400 Heart rate 69 /min NILL [facility] 04-03-2023 10:25-0400 Respiratory rate 17 /min NILL [facility] 04-03-2023 10:25-0400 SaO2% (BldA) [Mass fraction] 94 % NILL [facility] 04-03-2023 10:25-0400 Systolic blood pressure 102 mm[Hg] NILL [facility] 04-03-2023 10:20-0400 Blood Pressure Location NILL [facility] 04-03-2023 10:15-0400 Blood Pressure Location NILL [facility] 04-03-2023 10:15-0400 Body temperature 96.8 [degF] NILL [facility] 04-03-2023 09:47-0400 Respiratory rate 18 /min NILL [facility] 04-03-2023 09:24-0400 Blood Pressure Location NILL [facility] 04-03-2023 09:24-0400 Body temperature 96.8 [degF] Michael ALBRIGHT [facility] 03-17-2023 11:37-0400 Heart rate 78 /min Demar Valeri [facility] 03-17-2023 11:37-0400 SaO2% (BldA) [Mass fraction] 98 % Demar Valeri [facility] 03-17-2023 11:37-0400 Diastolic blood pressure 63 mm[Hg] Demar Valeri [facility] 03-17-2023 11:37-0400 Mean blood pressure 87 mm[Hg] Demar Valeri [facility] 03-17-2023 11:37-0400 Systolic blood pressure 136 mm[Hg] Demar Valeri [facility] 03-17-2023 11:33-0400 Diastolic blood pressure 114 mm[Hg] Demar Valeri [facility] 03-17-2023 11:33-0400 Heart rate 91 /min Demar Valeri [facility] 03-17-2023 11:33-0400 Respiratory rate 14 /min Demar Valeri [facility] 03-17-2023 11:33-0400 SaO2% (BldA) [Mass fraction] 99 % Demar Valeri [facility] 03-17-2023 11:33-0400 Systolic blood pressure 156 mm[Hg] Demar Valeri [facility] 03-17-2023 10:56-0400 Heart rate 89 /min Demar Valeri [facility] 03-17-2023 10:56-0400 SaO2% (BldA) [Mass fraction] 100 % Demar Valeri [facility] 03-17-2023 10:56-0400 Diastolic blood pressure 87 mm[Hg] Demar Valeri [facility] 03-17-2023 10:56-0400 Mean blood pressure 104 mm[Hg] Demar Valeri [facility] 03-17-2023 10:56-0400 Systolic blood pressure 138 mm[Hg] Demar Valeri [facility] 03-17-2023 10:56-0400 Body temperature 98.06 [degF] Demar Valeri [facility] 03-17-2023 10:56-0400 Respiratory rate 12 /min Demar Valeri [facility] 02-23-2023 12:32-0400 Diastolic blood pressure 97 mm[Hg] Demar Valeri [facility] 02-23-2023 12:32-0400 Heart rate 62 /min Demar Valeri [facility] 02-23-2023 12:32-0400 Mean blood pressure 115 mm[Hg] Demar Valeri [facility] 02-23-2023 12:32-0400 Respiratory rate 12 /min Demar Valeri [facility] 02-23-2023 12:32-0400 Systolic blood pressure 150 mm[Hg] Demar Valeri [facility] 02-20-2023 13:22-0400 Blood Pressure Location JOSE RAMON [facility] [place] 02-20-2023 13:22-0400 Diastolic blood pressure 84 mm[Hg] Michael ALBRIGHT [facility] [place] 02-20-2023 13:22-0400 Heart rate 72 /min Michael ALBRIGHT [facility] [place] 02-20-2023 13:22-0400 Respiratory rate 16 /min Michael ALBRIGHT [facility] [place] 02-20-2023 13:22-0400 Systolic blood pressure 122 mm[Hg] Michael ROLANDL [facility] [place] 04-29-2022 09:28-0400 Blood Pressure Location Vicky LAST [facility] 04-29-2022 09:28-0400 Diastolic blood pressure 71 mm[Hg] Vicky LAST [facility] 04-29-2022 09:28-0400 Heart rate 73 /min Vicky LAST [facility] 04-29-2022 09:28-0400 Respiratory rate 18 /min Vicky LAST [facility] 04-29-2022 09:28-0400 SaO2% (BldA) [Mass fraction] 99 % Vicky LAST [facility] 04-29-2022 09:28-0400 Systolic blood pressure 106 mm[Hg] Vicky LAST [facility] Encounters Encounter Date Encounter Type Care Provider Facility Start: 12-18-2023 End: 12-19-2023 ambulatory XXXX NONE Facility:[facility] Start: 12-18-2023 End: 12-18-2023 Patient encounter procedure Willie Kaur [facility] Start: 12-02-2023 Clinisync Result Encounter Antionette LOPEZ Work Phone: [facility] Unsolicited Start: 12-02-2023 Clinisync Result Encounter Antionette Yang JESSICA Work Phone: [facility] Unsolicited Start: 12-02-2023 Telephone encounter Antionette Yang JESSICA Work Phone: [facility] Start: 11-30-2023 Clinisync Result Encounter Antionette Yang JESSICA Work Phone: [facility] Unsolicited Start: 11-30-2023 Clinisync Result Encounter Antionette Yang JESSICA Work Phone: [facility] Unsolicited Start: 11-25-2023 Clinisync Result Encounter Antionette Yang JESSICA Work Phone: [facility] Unsolicited Start: 11-25-2023 Clinisync Result Encounter Antionette Yang JESSICA Work Phone: [facility] Unsolicited Start: 11-25-2023 End: 11-25-2023 ambulatory ANTIONETTE LAURA Not Available Start: 11-25-2023 End: 11-25-2023 Patient encounter procedure Antionette Yang JESSICA Work Phone: [facility] Work Phone: Start: 11-25-2023 End: 11-25-2023 Periodic preventive med est patient 65yrs& older Antionette Yang JESSICA Work Phone: [facility] Comment on above: Well woman exam with routine gynecological exam; Breast cancer screening by mammogram; Other osteoporosis, unspecified pathological fracture presence (CMS/HCC); Restless legs; Well woman exam Start: 11-20-2023 End: 11-21-2023 ambulatory Vicky Castillo Facility:[facility] Start: 11-20-2023 End: 11-20-2023 Pain Management Vicky Castillo [facility] Start: 11-17-2023 End: 11-18-2023 ambulatory XXXX NONE Facility:[facility] Start: 11-17-2023 End: 11-17-2023 Patient encounter procedure Landon DOUGLAS [facility] Start: 10-26-2023 End: 10-27-2023 ambulatory Vicky Castillo Facility:[facility] Start: 10-26-2023 End: 10-26-2023 Patient encounter procedure Vicky Castillo [facility] Start: 10-26-2023 End: 10-26-2023 Pain Management Vicky Castillo [facility] Start: 10-07-2023 End: 10-08-2023 ambulatory Claudio Monroe Facility:[facility] Start: 10-07-2023 End: 10-07-2023 Pain Management Claudio Monroe [facility] Start: 09-22-2023 End: 09-23-2023 ambulatory Yarelis Mcghee Facility:[facility] Start: 09-22-2023 End: 09-22-2023 Pain Management Demar Trammell [facility] Start: 09-15-2023 End: 09-15-2023 ambulatory THIERRY VILLALOBOS Not Available Start: 08-06-2023 End: 08-07-2023 ambulatory Barry Husain Facility:[facility] Start: 08-06-2023 End: 08-06-2023 Patient encounter procedure Barry VikaRuba Husain [facility] Start: 07-23-2023 End: 07-24-2023 ambulatory Landon DOUGLAS Facility:[facility] Start: 07-14-2023 End: 07-15-2023 ambulatory XXXX NONE Facility:[facility] Start: 07-14-2023 End: 07-14-2023 Hypertension screening status Vicky LAST [facility] Start: 07-14-2023 End: 07-14-2023 Patient encounter procedure Vicky LAST [facility] Start: 06-30-2023 End: 07-01-2023 ambulatory XXXX NONE Facility:[facility] Start: 06-30-2023 End: 06-30-2023 Patient encounter procedure Landon DOUGLAS [facility] Start: 06-08-2023 End: 06-09-2023 ambulatory Yarelis Hoy Facility:[facility] Start: 06-08-2023 End: 06-08-2023 Pain Management Vicky Castillo [facility] Start: 06-05-2023 End: 06-05-2023 Emergency department patient visit Prasad Avalos Facility:[facility] Start: 06-05-2023 End: 06-05-2023 Emergency department patient visit Prasad Avalos [facility] Start: 05-04-2023 End: 05-05-2023 ambulatory Yarelis Hoy Facility:[facility] Start: 05-04-2023 End: 05-04-2023 Pain Management Vicky Castillo [facility] Start: 04-28-2023 End: 04-29-2023 ambulatory XXXX NONE Facility:[facility] Start: 04-28-2023 End: 04-28-2023 Patient encounter procedure Vicky LAST [facility] Start: 04-20-2023 End: 04-21-2023 ambulatory Yarelis Hoy Facility:[facility] Start: 04-20-2023 End: 04-20-2023 Pain Management Demar Trammell [facility] Start: 04-15-2023 End: 04-16-2023 ambulatory Michael ALBRIGHT Facility: [facility] Start: 04-15-2023 End: 04-15-2023 Patient encounter procedure R NILL General Surgery Nill/[facility] Start: 04-07-2023 End: 04-08-2023 ambulatory MD Demar Trammell Facility:[facility] Start: 04-03-2023 End: 04-03-2023 ambulatory R NILL Facility:[facility] Start: 04-03-2023 End: 04-03-2023 Patient encounter procedure R NILL [facility] Start: 03-17-2023 End: 03-18-2023 ambulatory MD Demar Trammell Facility:[facility] Start: 03-17-2023 End: 03-17-2023 Pain Management Demar Trammell [facility] Start: 03-03-2023 End: 03-04-[address] YARELIS MCGHEE . Facility: Start: 02-23-2023 End: 02-24-2023 ambulatory Demar Trammell Facility:[facility] Start: 02-23-2023 End: 02-23-2023 Pain Management Demar Trammell [facility] Start: 02-20-2023 End: 02-21-2023 ambulatory R NILL Facility: [facility] Start: 02-20-2023 End: 02-20-2023 Patient encounter procedure R NILL General Surgery Nill/Said [place] Start: 02-09-2023 End: 02-10-[address] YARELIS MCGHEE . Facility: Start: 11-05-2022 End: 11-05-[address] YARELIS MCGHEE . Facility: Start: 10-27-2022 End: 10-27-2022 Patient encounter procedure Vicky LAST [facility] Start: 10-22-2022 End: 10-23-[address] JUAN CARLOS GIFFORD . Facility:[facility] Start: 09-24-2022 End: 09-24-[address] JUAN CARLOS GIFFORD . Facility:[facility] Start: 04-29-2022 End: 04-29-2022 Patient encounter procedure Vicky Yost SHALA [facility] Start: 12-05-2017 End: 04-15-2018 Ambulatory Adryan Car Facility:[facility] Procedures Date Procedure Procedure Detail Performing Clinician Start: 12-02-2023 ALL THYROXINE (T4) FREE Antionette LOPEZ Work Phone: Start: 11-30-2023 ALL LIPID PROFILE (FASTING) Antionette LOPEZ Work Phone: Start: 11-30-2023 ALL THYROID STIM HORMONE Antionette LOPEZ Work Phone: Start: 11-30-2023 [facility] CMP (CMP) (FOR REMOTE [facility] USE) Antionette LOPEZ Work Phone: Start: 11-30-2023 Mammography Antionette LOPEZ Work Phone: Start: 11-25-2023 IGP,APTIMA HPV,AGE GDLN Antionette LOPEZ Work Phone: Start: 10-07-2023 Injection of nerve root of [...] of knee Michael ALBRIGHT Esophagogastroduodenoscopy A maicol LAST Comment on above: during early 40s Knee region structur e (body structure) Vicky LAST Comment on above: Knee replacement x 2 Tonsillectomy and adenoidectomy Michael ALBRIGHT Ureterorenoscopy wit h fragmentation and removal of calculus of kidney Vicky LAST Plan of Treatment Date Care Activity Detail Author Start: 04-03-2033 Screening for malign ant neoplasm of colon [facility] Start: 11-30-2024 Screening for malign ant neoplasm of breast Mammogram [facility] Start: 11-28-2024 End: 11-28-2024 Patient encounter procedure 11/28/2024 9:00 AM EST Office Visit [facility] [address] [place] [address] Antionette Yang PA [address] [place], [place] [id number] [facility] Start: 11-25-2023 End: 11-25-2024 Lipid 1996 panel - Serum or Plasma Lipid panel Lab Routine Well woman exam with routine gynecological exam Well woman exam Expected: 11/25/2023 (Approximate), Expires: 11/25/2024 [facility] Comment on above: Expected: 11/25/2023 (Approximate), Expires: 11/25/2024 Start: 11-25-2023 End: 01-23-2025 MG Breast - bilateral Screening Bilateral screening mammogram Imaging Routine Breast cancer screening by mammogram Expected: 11/25/2023, Expires: 01/23/2025 [facility] Work Phone: Comment on above: Expected: 11/25/2023 , Expires: 01/23/2025 Start: 10-22-2023 Screening for malign ant neoplasm of breast Mammogram [facility] Start: 06-19-2023 Influenza vaccination Influenza Vacc ine (#1) [facility] Start: 2022 Pneumococcal Vaccine : 65+ Years (1 - PCV) Pneumococcal Vaccine: 65+ Years (1 - PCV) [facility] Start: 1955 Screening for malign ant neoplasm of colon [facility] CBC W Auto Different ial panel - Blood CBC and differential Lab Routine Well woman exam with routine gynecological exam Well woman exam Ordered: 11/25/2023 [facility] Comment on above: Ordered: 11/25/2023 Comprehensive metabo lic 2000 panel - Serum or Plasma Comprehensive metabolic panel Lab Routine Well woman exam with routine gynecological exam Well woman exam Ordered: 11/25/2023 [facility] Comment on above: Ordered: 11/25/2023 Hemoglobin A1c measurement Hemoglobin A1c Lab Routine Well woman exam with routine gynecological exam Well woman exam Ordered: 11/25/2023 [facility] Comment on above: Ordered: 11/25/2023 THIN PREP TIS PAP AN D HR HPV DNA THIN PREP TIS PAP AND HR HPV DNA Pathology and Cytology Routine Well woman exam with routine gynecological exam Ordered: 11/25/2023 [facility] Comment on above: Ordered: 11/25/2023 Thyrotropin [Units/volume] in Serum or Plasma TSH Lab Routine Well woman exam with routine gynecological exam Well woman exam Ordered: 11/25/2023 [facility] Comment on above: Ordered: 11/25/2023 Immunizations Immunization Date Immunization Notes Care Provider Geovanna sommer 07-23-2021 SARS-CoV-2 (COVID-19 ) mRNA BNT-162b2 harlan ALBRIGHT [facility] [place] 07-02-2021 SARS-CoV-2 (COVID-19 ) mRNA BNT-162b2 harlan ALBRIGHT [facility] [place] 02-22-2021 zoster vaccine recombinant Antionette LOPEZ Work Phone: [facility] 11-12-2020 zoster vaccine recombinant Antionette LOPEZ Work Phone: [facility] NEGATED: Highlighted row has not occurred!12-25-2021 influenza virus vaccine, unspecified formulation Vickyjayden LAST [facility] NEGATED: Highlighted row has not occurred!10-16-2021 influenza virus vaccine, unspecified formulation Vicky LAST [facility] Payers Date Payer Category Payer Unknown AARP AARP [id number] 2022-Present [address] [place] [address] [id number] 2022 Medicare MEDICARE MEDICAR E PART B [id number] 2022-Present [address] [address] [place] [address] Medicare [id number] 2017 Unknown [id number] 1959 Medicare [id number] 1959 Unknown [id number] 1957 Unknown [id number] 2.16.840.1.008667.3.579.2.593 1957 Unknown [id number] 2.16.840.1.383445.3.579.2.593 1957 Unknown [id number] 2.16.840.1.536974.3.579.2.593 1957 Unknown [id number] 2.16.840.1.334725.3.579.2.593 1957 Unknown [id number] 2.16.840.1.691845.3.579.2.593 1957 Unknown [id number] 2.16.840.1.416504.3.579.2.1259 1957 Unknown [id number] 2.16.840.1.919867.3.579.2.1259 1957 Unknown [id number] 2.16.840.1.415347.3.579.2.727 1957 Unknown [id number] 2.16.840.1.584460.3.579.2.72 1957 Unknown [id number] 2.16.840.1.140091.3.579.2.72 1957 Unknown [id number] 2.16.840.1.403803.3.579.2.72 1957 Unknown [id number] 2.16.840.1.016131.3.579.2.727 1957 Unknown [id number] 2.16.840.1.663696.3.579.2.72 1957 Unknown [id number] 2.16.840.1.983267.3.579.2.727 1957 Unknown [id number] 2.16.840.1.521688.3.579.2.72 1957 Unknown [id number] 2.16.840.1.268980.3.579.2.72 1957 Unknown [id number] 2.16.840.1.308178.3.579.2.72 1957 Unknown [id number] 2.16.840.1.159188.3.579.2.72 1957 Unknown [id number] 2.16.840.1.222971.3.579.272 1957 Unknown [id number] 2.16.840.1.341004.3.579.2.727 1957 Unknown [id number] 2.16.840.1.148799.3.579.2.727 1957 Unknown [id number] 2.16.840.1.027165.3.579.2.727 1957 Unknown [id number] 2.16.840.1.358250.3.579.2.727 1957 Unknown [id number] 2.16.840.1.891297.3.579.2.727 1957 Unknown [id number] 2.16.840.1.434913.3.579.2.727 1957 Unknown [id number] 2.16.840.1.655609.3.579.2.727 1957 Unknown [id number] 2.16.840.1.281327.3.579.2.727 1957 Unknown [id number] 2.16.840.1.475204.3.579.2.727 1957 Unknown [id number] 2.16.840.1.259648.3.579.2.72 Social History Date Type Detail Facility Start: 12-25-2021 End: 12-18-2023 Tobacco smoking status Never smoked tobacco (finding) [facility] Comment on above: Denies. Start: 09-15-2023 End: 11-24-2023 Sex Assigned At Female [facility] Tobacco smoking status Never [facility] Comment on above: Denies. Tobacco [facility] Comment on above: denies Tobacco smoking status No Smokin g Status Entered [facility] Start: 05-20-2023 Tobacco use and exposure Smokeless [...] Sex Assigned At Not on file [facility] Functional Status Date Assessment Result Facility 12-18-2023 Functional Status No [facility] 11-20-2023 Functional Status N/A [facility] 11-17-2023 Functional Status No [facility] 10-26-2023 Functional Status N/A [facility] 10-07-2023 Functional Status N/A [facility] 09-22-2023 Functional Status N/A [facility] 07-14-2023 Functional Status No [facility] 06-30-2023 Functional Status No [facility] 06-08-2023 Functional Status N/A [facility] 06-05-2023 Functional Status N/A [facility] 05-04-2023 Functional Status N/A [facility] 04-28-2023 Functional Status No [facility] 04-20-2023 Functional Status N/A [facility] 04-03-2023 Functional Status N/A [facility] 03-17-2023 Functional Status N/A [facility] 02-23-2023 Functional Status N/A [facility] 02-20-2023 Functional Status N/A [facility] 04-29-2022 Functional Status N/A [facility] Clinical Notes 10-08-2021 to 12-02-2023 Telephone Encounter - JESSICA Hunt - 12/02/2023 10:41 AM ESTTelephone Encounter - JESSICA Hunt - 12/02/2023 10:41 AM JESSICA Mahajan - 11/25/2023 9:00 AM EST Note Date & Type Note Facility 12-02-2023 Telephone encounter Note Form atting of this note might be different from the original. Pt notified of wellness lab results and low tsh, t3 and t4 labs ordered for her as well. Pt states she will follow up with her primary care physician, DR Mcghee in next few weeks. She denies any symptoms at this time [facility] 12-02-2023 Miscellaneous Notes Formattin g of this note might be different from the original. Pt notified of wellness lab results and low tsh, t3 and t4 labs ordered for her as well. Pt states she will follow up with her primary care physician, DR Mcghee in next few weeks. She denies any symptoms at this time documented in this encounter [facility] 11-25-2023 History of Presen t illness Narrative [...] KNEE SURGERY Bilateral Left: 2005; Right: 2015 [place] LAPAROSCOPIC APPEN[place]OMY 12/04/2017 [place] REMOVAL OF KIDNEY STONE 2008 Allergies Allergen [...] nursing note reviewed. Exam conducted with a asbestos siding installer present. Vitals: Estimated body mass index is 33.22 kg/m as calculated from the following: Height as of this encounter: 5'. Weight as of this encounter: 170 lb 1.9 oz. BP: 120/84 No LMP recorded. Patient is postmenopausal. Assessment/Plan Encounter Diagnoses Name Primary? Well woman exam with routine gynecological exam Breast cancer screening by mammogram Other osteoporosis, unspecified pathological fracture presence ([facility] Patient presents today for an annual exam. [...] of: JESSICA Hunt documented in this encounter [facility] 11-20-2023 Evaluation + Plan note Extrac [...] PM Scheduled Provider:Willie Kaur MD Location:.[facility] [place] Appointment Type:Cardiology Follow Up (FT) [facility]01-08-2024 Evaluation + Plan noteExtracted from: Title:Pain Managment [...] PM Scheduled Provider:Vicky Castillo PA-C Location:[facility] [place] Appointment Type:Pain Management - Follow Up (FT) [facility]12-20-2023 Evaluation + Plan noteExtracted from: Title:Right L5/S1 [...] AM Scheduled Provider:Vicky Castillo PA-C Location[facility] [place] Appointment Type:Pain Management - Follow Up (FT) Appointment Date:11/17/2023 11:30:00 AM Scheduled Provider:Landon DOUGLAS MD Location:.[facility] Clinic Appointment Type:Cardiology Follow Up (FT) [facility]12-20-2023 Note [id number]#[id number]23 NoteDiagnosis: M54.16 Lumbar radiculopathy Procedure: Right [...] and agrees to comply to currently prescribed/recommended therapies.[facility] Comment on above:Result Comment: Electronically Signed By: Claudio Monroe DO\Date and Time Signed: 10/07/23 09:54 [id number] Evaluation + Plan note Extracted from: Title:FUV [...] Location:[facility] Appointment Type:Cardiology Follow Up (FT) [facility]08-21-2023 Evaluation + Plan noteExtracted from: Title:Pain Managment [...] Clinic Appointment Type:Cardiology ED Follow Up (FT) [facility]08-18-2023 Evaluation + Plan noteExtracted from: Title:ED Note Author:Robbie Prasad Date:05/19 06/10 Dizziness (R42: Dizziness an d giddiness) Hypertension (I10: Essential (primary) hypertension) Orders: losartan, 50 mg = 1 tab(s), Oral, Daily, X 30 day(s), # 30 tab(s), Refills(s) 0, Pharmacy: [id number], 152.4, cm, 06/05/23 8:54:00 EDT, Height/Length [...] Date:06/08/2023 08:15:00 AM Scheduled Provider:Vicky Castillo PA-C Location:FT[facility] Appointment Type:Pain Management - Follow Up (FT) Appointment Date:07/06/2023 11:00:00 AM Scheduled Provider:Landon DOUGLAS MD Location:[facility] Appointment Type:Cardiology ED Follow Up (FT) [facility]08-18-2023 Hospital Discharge instructions Follow Up Care 06/05/2023 08:40:51 With:Yarelis Mcghee Address: [address] [place] [address] Business (1) When:Within 3 Day(s) [facility]07-17-2023 Evaluation + Plan noteExtracted from: Title:Pain Managment [...] Date:06/08/2023 08:15:00 AM Scheduled Provider:Vicky Castillo PA-C Location:[facility] Appointment Type:Pain Management - Follow Up (FT) [facility]06-19-2023 Note [id number]:127[facility] 04-03-2023 Evaluation + Plan noteExtracted from: Title:ANES Post-operative Note - General Author: Lb Wu Jr., DO Date:04/03/23 Plan Transfer/Discharge: Transfer/Discharge Discharge when meets criteria ( From PACU to Ambulatory Surgery Unit, and To home ). Extracted from: Title:ANES Pre-operative Note - Endo Author:Lb Melendez Jr., DO Date:04/03/23 Plan [place] [employer] Anesthesiologists (ASA) physical status classification: Class III. Anesthetic Preoperative Plan: Anesthesia General, and -TIVA. Future Appointments Appointment Date:04/07/2023 11:00:00 AM Scheduled Provider:Demar Trammell MD Location:.[facility] [place] Appointment Type:Pain Management - Follow Up (FT) Appointment Date:04/28/2023 09:00:00 AM Scheduled Provider:Vicky LAST CNP Location:.[facility] Clinic Appointment Type:Cardiology Follow Up (FT) [facility]06-16-2023 Hospital Discharge instructions Patient Education 04/03/2023 10:24:17 [...] unsweetened, w/added ascorbic acid 1 cup 0.5 Meally 1 cup 0.7 Vegetables Cooked Green beans 1 cup 4.0 Carrots 1/2 cup sliced 2.3 Peas 1 cup 8.8 Potato (baked, with skin) 1 medium potato 3.8 Raw [place] (with peel) 1 cucumber 1.5 Lettuce 1 [...] 8.7 Peanuts 1/2 cup 7.9 Chart from [facility] 2013. SEEK IMMEDIATE MEDICAL CARE IF: You [...] Reference. Available at http://www.nal.usda.gov/fnic/foodcomp/search/. Information adapted from: [facility] Patient Information 2009 [employer]. Opez 2012 http://www.Tinypass/contents/qcgkrjbxhqqn-gzqtakb-pjsmje-the-basics 04/03/2023 10:24:14 Colonoscopy, Care After Surgery Salam [...] reduce GERD symptoms. Medicines. These may include: ?Rarf-apk-lqypini antacids. ?Medicines that make your stomach empty [...] may include: ?Fatty foods, like fried foods. ?Socastee fruits, like oranges or lemon. ?Other foods [...] Do not drink alcohol. General instructions Take zzfn-wwe-zrkdzpd and prescription medicines only as told by [...] provider. Document Revised: 08/19/2022 Document Reviewed: 09/05/2021 [employer] Patient Education 2022 [employer]. 04/03/2023 10:24:03 Endoscopy, Care After Procedure [facility] Endoscopy Care After Procedure Please read the instructions outlined below and refer to this sheet in the next few weeks. These discharge instructions provide you with general information on [facility] Your doctor may also give you [...] Document Re-Released: 03/29/2007 ExitCare Patient Information 2009 [employer]. Follow Up Care 02/23/2023 10:35:27 With:Michael ALBRIGHT Address: [facility] [place] [address] [place] [address] Business (1) When:2 weeks [facility]05-30-2023 Note [id number]:127[facility] 02-23-2023 Evaluation + Plan noteExtracted from: Title:NPV [...] Appointments Appointment Date:04/03/2023 10:30:00 AM Scheduled Provider: Location:[facility] Appointment Type:Surgery FT Appointment Date:04/28/2023 09:00:00 AM Scheduled Provider:Vicky LAST CNP Location:FT[facility] Appointment Type:Cardiology Follow Up (FT) [facility]05-05-2023 NoteChief Complaint consultation for abdominal pain HPI [...] malignant neoplasm of colon (more content not included)...[facility]:Result Comment: Electronically Signed By: JOSE RAMON CANTRELL, Michael Ward\Date and Time Signed: 02/20/23 16:32 [id number] Hospital Discharge instructions Follow Up Care 10/08/2021 14:10:47 With:Landon Douglas MD Address: [facility] [place] [phone] When: Unknown [facility] Future Appointments Appointment Date:11/05/2022 11:30:00 AM Scheduled Provider:Landon Douglas MD Location:[facility] Appointment Type:Cardiology Follow Up (FT) Future Scheduled Tests Laboratory* Lipid Panel 09/05/21 Radiology* Echo Transthoracic Complete 09/29/22 [facility] + Plan note Future Appointments Appointment Date:11/05/2022 11:30:00 AM Scheduled Provider:Landon Douglas MD Location:[facility] Appointment Type:[facility]iology [facility] ([facility] Future Appointments Appointment Date:02/23/2023 12:30:00 PM Scheduled Provider:Demar Trammell MD Location:[facility] [place] Appointment Type:Pain Management - New (FT) Appointment Date:04/28/2023 09:00:00 AM Scheduled Provider:Vicky LAST CNP Location:[facility] Appointment Type:Cardiology Follow Up (FT) [facility] [place] Evaluation + Plan note Future Appointments Appointment Date:04/03/2023 10:30:00 AM Scheduled Provider: Location:[facility] Appointment Type:Surgery FT Appointment Date:04/07/2023 11:00:00 AM Scheduled Provider:Demar Trammell MD Location:[facility] [place] Appointment Type:Pain Management - Follow Up (FT) Appointment Date:04/28/2023 09:00:00 AM Scheduled Provider:Vicky LAST CNP Location:[facility] Appointment Type[facility] Future Appointments Appointment Date:04/20/2023 02:15:00 PM Scheduled Provider:Demar Trammell MD Location:[facility] [place] Appointment Type:Pain Management - Office Injection (FT) Appointment Date:04/28/2023 09:00:00 AM Scheduled Provider:Vicky LAST CNP Location:[facility] Appointment Type:Cardiology Follow Up (FT) Appointment Date:05/04/2023 09:00:00 AM Scheduled Provider:Vicky Castillo PA-C Location:[facility] [place] Appointment Type:Pain Management - Follow Up (FT) [facility] [place] Evaluation + Plan note Future Appointments Appointment Date:04/28/2023 09:00:00 AM Scheduled Provider:Vicky LAST CNP Location:[facility] Appointment Type:Cardiology Follow Up (FT) Appointment Date:05/04/2023 09:00:00 AM Scheduled Provider:Vicky Castillo PA-C Location:[facility] [place] Appointment Type:Pain Management - [facility] Future Appointments Appointment Date:05/04/2023 09:00:00 AM Scheduled Provider:Vicky Castillo PA-C Location:[facility] [place] Appointment Type:Pain Management - Follow [facility] ([facility] Future Appointments Appointment Date:07/14/2023 09:30:00 AM Scheduled Provider:Vicky LAST CNP Location:[facility] App[facility]ment Type:[facility] Future Appointments Appointment Date:11/17/2023 11:30:00 AM Scheduled Provider:Landon DOUGLAS MD Location:[facility] Appointment Type:Cardiology Follow Up (FT) Appointment Date:11/20/2023 01:15:00 PM Scheduled Provider:Vicky Castillo PA-C Location:[facility] [place] Appointment Type:Pain Management - Follow Up (FT[facility] Future Appointments Appointment Date:11/20/2023 01:15:00 PM Scheduled Provider:Vicky Castillo PA-C Location:[facility] [place] Appointment Type:Pain Management - Follow Up (FT) Appointment Date:12/14/2023 10:45:00 AM Scheduled Provider:Barry Husain MD Location:.[facility] Appointment Type:Pulmonary New Patient (FT) Appointment Date:12/18/2023 01:45:00 PM Scheduled Provider:Willie Kaur MD Location:.[facility] [place] Appointment Type:Cardiology Follow [facility] ([facility] Diagnosis Well woman exam with routine gynecological exam Routine gynecological examination Breast cancer screening by mammogram Other osteoporosis, unspecified pathological fracture presence (CMS/HCC) Restless legs Restless legs syndrome (RLS) Well woman exam Routine general medical examination at a health care facility [facility] Narrative No data available for this section [facility] No data available for this section [facility] No data available for this section [facility] Summary Purpose Family History No Family History [...] section and content) DATE CREATED AUTHOR 04/15/2018 [facility] DATE CREATED AUTHOR AUTHOR'S ORGANIZ ATION 12/02/2021 [facility] DATE CREATED AUTHOR AUTHOR'S ORGANIZ ATION 03/04/2023 [facility] pital DATE CREATED AUTHOR AUTHOR'S ORGANIZ ATION 11/26/2023 [facility] EPIC DATE CREATED AUTHOR AUTHOR'S ORGANIZ ATION 12/21/2023 [facility] Care Team (unrecognized sect ion and content) Business Analytics Manager Relationship Specialty Start Date End Date Yarelis Mcghee MD [address] [place] [address] PCP - General Family Medicine 05/21/23 Business Analytics Manager Relationship Specialty Start Date End Date Yarelis Mcghee MD [address] [place] [address] PCP - General Family Medicine 05/21/23 Business Analytics Manager Relationship Specialty Start Date End Date Yarelis Mcghee MD [address] [place] [address] PCP - General Family Medicine 05/21/23 Business Analytics Manager Relationship Specialty Start Date End Date Yarelis Mcghee MD [address] [place] [address] PCP - General Family Medicine 05/21/23 Reason [...] BE BASED ON THE PRIMARY CLINICAL RECORDS. [facility] [employer] [facility]. provides no warranty or guarantee of the accuracy or completeness of information in this document.
[2023-12-31 10:44] LABS: Alanine Aminotransferase 24 U/L (14-59); Albumin Globulin Ratio 1.1; Albumin Level 3.6 g/dL (3.4-5.0); Alkaline Phosphatase 60 U/L (46-116); Anion Gap 11.6; Aspartate Amino Transferase 15 U/L (15-37); BUN Creatinine Ratio 33.3; Bilirubin Total 0.9 mg/dL (0.2-1.0); Calcium 9.4 mg/dL (8.5-10.1); Carbon Dioxide 30.4 mmol/L (21.0-32.0); Chloride 100 mmol/L (98-107); Estimated GFR (African America >60 (>=60); Estimated GFR (Non-African Ame >60 (>=60); Globulin 3.3 g/dL; Glucose 92 mg/dL (74-106); Magnesium 2.2 mg/dL (1.8-2.4); Sodium 138 mmol/L (136-145); Thyroid Stimulating Hormone 0.009 uIU/mL (0.358-3.740); Total Protein 6.9 g/dL (6.4-8.2)
[2024-01-01 15:11] LABS: Thyroglobulin Antibody 6.5 IU/mL (0.0-0.9); Thyroid Peroxidase (TPO) Ab 136 IU/mL (0-34)
== END 2023-12-31 08:39 | disposition home or self-care (01) ==
LOC: LAB 08:42
PROVIDERS: PCP Family Medicine; Visit Provider Family Medicine
DX: I10 Essential (primary) hypertension (principal)
CPT/HCPCS: 36415; 80053; 83735; 84436; 84443; 84481; 86376; 86800

== ENCOUNTER 2024-09-02 08:15 | Day surgery (SDC) | payer MEDICARE, SELFPAY ==
--- NOTE | 2024-09-02 08:23 | US_ITS ---
[address] [address] Patient Name: CHLOE AGARWAL MRN: [id number] date: 1955 Sex: F Assigned Patient Location: Current Patient Location: Accession/Order Number: [id number] Exam Date: 09/02/2024 08:38 Report Date: 09/04/2024 09:25 At the request of: NON-STAFF PHYSICIAN Procedure: US biopsy thyroid EXAMINATION: US biopsy thyroid HISTORY: Right Thyroid Nodule COMPARISON: No relevant comparison available. TECHNIQUE: After obtaining informed consent, ultrasound-guided fine needle aspiration was performed in the usual sterile manner. FINDINGS: IMAGING: Ultrasound. BIOPSY NEEDLE: 25-gauge; 3 separate passes LOCATION: Right thyroid lobe 1.5 cm heterogeneous nodule. SPECIMEN TYPE: Cellular tissue. LOCAL ANESTHETIC: Buffered Xylocaine. COMPLICATIONS: None. LABORATORY: Prepared slide smears and washings for cell block evaluation. OTHER: Negative. PATHOLOGY: Pending. An addendum will be added when results are available. US/US biopsy thyroid IMPRESSION: 1. Uneventful ultrasound guided fine needle aspiration (FNA). 2. Pathology results are pending. Electronically authenticated by: RYAN VAZQUEZ Date: 09/04/2024 09:25
[2024-09-02 08:30] VITALS: BP 140/86; PULSE 71; O2SAT 98
--- OUTSIDE RECORDS SUMMARY | 2024-09-02 08:32 | XMS_ITS | CCD ---
Author Organization [facility] CliniSyal Care Team Providers Care Dimension [place] Supervisor Name Role Phone Adryan Yoon Unavailable Unavailable ClevelandestellaAdryan jack Unavailable Unavailable YARELIS MCGHEE Unavailable Unavailable Fernie [...] e ZIEBER, DR RYAN Billingsley Consulting Unavailable Yarelis Mcghee MD Primary Care Provider Nelson Solares Attending Unavailable Demra Trammell Admitting Unavailable Demar Trammell Attending Unavailable Cry, Yarelis Referring Unavailable Landon DOUGLAS Admitting Unavailable Landon DOUGLAS Attending Unavailable NONE, XXXX Referring Unavailable Willie Kaur Attending Unavaila ble NONE, XXXX Referring Unavailable Willie Kaur Attending Unavaila ble NONE, XXXX Referring Unavailable Claudio Monroe Admitting Unavailable Claudio Monroe Attending Unavailable Claudio Monroe Referring Unavailable Vicky Castillo Admitting Unavailable Castillo, Vicky Attending Unavailable Nelson Solares Attending Unavailable Husain Basebartolome GRuba Attending Unavailable Husain Basem GRuba Referring Unavailable Husain, Basem G. Admitting Unavailable Husain Basem G. Attending Unavailable Landon DOUGLAS Referring Unavailable FRANCO Castillo Admitting Unavailabl e Castillo, Vicky Attending Unavailable Nathalie Yarelis Referring Unavailable FRANCO Castillo Vicky Admitting Unavailabl e Castillo, Vicky Attending Unavailable Hoy, Yarelis Referring Unavailable ANTIONETTE YANG Attending Unavailable SYDNIE VILLALOBOS W Attending Unavailable SYDNIE VILLALOBOS W Attending Unavailable SYDNIE VILLALOBOS W Attending Unavailable Claudio Monroe Admitting Unavailable Claudio Monroe Attending Unavailable SAM KAISER Referring Unavailable WERPRATIBHA, SAM Admitting Unavailable WERVEY, SAM Attending Unavailable Nathalie, Yarelis Referring Unavailable Claudio Monroe Admitting Unavailable Claudio Monroe Attending Unavailable Allergies Allergy Classification Reported Allergen(s) Allergy Type Date of Onset Reaction(s) Facility (1 source) Sulfonamide; Translations: [sulfonamide] Propensity to adverse reactions to drug (disorder) [facility] Repository (20 sources) Sulfonamides (Antibiotic); Translations: [sulfa drugs] Drug allergy unknown [facility] (20 sources) Lisinopril; Translations: [lisinopril] Drug Allergy Coughing - function (qualifier value) [facility] (1 source) Sulfonamides (Antibiotic) Drug allergy (disorder) [facility] Repository (20 sources) gabapentin; Translations: [gabapentin] Drug Allergy 3 Headache (finding), Headache [facility] (9 sources) Lisinopril Propensity to adverse reactions 3 [facility] (9 sources) Sulfonamides (Antibiotic) Drug Allergy 3 [facility] (4 sources) Baclofen; Translations: [baclofen] Drug Allergy Hand pain (finding), Menopausal flushing (finding), Bilateral weakness of upper limbs, Weakness of bilateral lower limb, Numbness of limbs (finding) [facility] (4 sources) DULoxetine; Translations: [duloxetine] Drug Allergy 4 Vomiting (disorder) [facility] Medications Current Medications Medication Drug Class(es) Dates [...] next 30 min. 4 tablet 6 11/25/2023 Active Start: 02-23-2023 take 1 tablet by herberth th every week alendronate 70 mg Tab TAKE 1 TABLET BY MOUTH 30 MINUTES BEFORE first food once a week, Prophylaxis Start Date: 02/23/23 Status: Ordered cephalexin 500 mg oral capsule (1 source) Cephalosporin Antibacterial Start: 05-08-2024 End: 05-13-2024 take 1 capsule by mouth every twelve hours Keflex 500 mg Cap 500 mg = 1 cap(s), Oral, q12hr, X 5 day(s), # 10 cap(s), Refills(s) 0, Pharmacy: [facility], 152, cm, 05/08/24 7:24:00 EDT, Height/Length Dosing, 77.2, kg, 05/08/24 7:33:00 EDT, Weight Dosing Start Date: 05/08/24 Stop Date: 05/13/24 Status: Ordered gabapentin 300 mg oral capsule (8 sources) Anti-epileptic Agent Start: 05-04-2023 End: 11-25-2023 gabapentin 300 mg Cap 300 mg = 1 cap(s), Oral, BID, start with once a day for a week. If doing ok can increase to BID, # 60 cap(s), Refills(s) 0, Pharmacy: [facility], 152, cm, 05/04/23 8:55:00 EDT, Height/Length Dosing, 72.6, kg, 05/04/23 8:55:00 EDT, Weight Dosing Start Date: 05/04/23 Status: Ordered hydroCHLOROthiazide 12.5 mg oral capsule (17 sources) Thiazide Diuretic Start: 11-17-2023 take 1 capsule by mouth once daily hydrochlorothiazide 12.5 mg Cap 12.5 mg = 1 cap(s), Oral, Daily, # 90 cap(s), Refills(s) 3, Pharmacy: [facility], 152, cm, 07/13/24 15:04:00 EDT, Height/Length Dosing, 75, kg, 07/13/24 15:04:00 EDT, Weight Dosing Start Date: 07/13/24 Status: Ordered linaclotide 0.072 mg oral capsule [...] Refills(s) 0 Start Date: 09/01/21 Status: Ordered LORazepam 1 mg oral tablet (1 source) Benzodiazepine Start: 05-08-2024 End: 05-11-2024 take 1 tablet by mouth three times daily as needed for dizziness Ativan 1 mg Tab 1 mg = 1 tab(s), Oral, TID, PRN Other (see comment), dizziness, X 3 day(s), # 9 tab(s), Refills(s) 0, Pharmacy: [facility], 152, cm, 05/08/24 7:24:00 EDT, Height/Length Dosing, 77.2, kg, 05/08/24 7:33:00 EDT, Weight Dosing Start Date: 05/08/24 Stop Date: 05/11/24 Status: Ordered losartan potassium 100 mg oral tablet (20 sources) Angiotensin 2 Receptor Hermilo Start: 07-13-2024 take 1 tablet by mouth at bedtime losartan 100 mg Tab 100 mg = 1 tab(s), Oral, Bedtime, # 90 tab(s), Refills(s) 3, Pharmacy: [facility], 152, cm, 07/13/24 15:04:00 EDT, Height/Length Dosing, 75, kg, 07/13/24 15:04:00 EDT, Weight Dosing Start Date: 07/13/24 Status: Ordered Start: 12-18-2023 take 1 tablet by herberth th at bedtime losartan 100 mg Tab 100 mg = 1 tab(s), Oral, Bedtime, # 90 tab(s), Refills(s) 3, Pharmacy: [facility], 152, cm, 12/18/23 13:31:00 EST, Height/Length Dosing, 79.2, kg, 12/18/23 13:37:00 EST, Weight Dosing Start Date: 12/18/23 Status: Ordered Start: 07-14-2023 take 1 tablet by herberth at bedtime losartan 100 mg Tab 100 mg = 1 tab(s), Oral, Bedtime, # 90 tab(s), Refills(s) 1, Pharmacy: [facility], 152, cm, 07/14/23 9:26:00 EDT, Height/Length Dosing, 76.9, kg, 07/14/23 9:26:00 EDT, Weight Dosing Start Date: 07/14/23 Status: Ordered Start: 06-30-2023 End: 07-30-2023 take 1 tablet by mouth twice daily losartan 50 mg Tab 50 mg = 1 tab(s), Oral, BID, X 30 day(s), # 60 tab(s), Refills(s) 0, Pharmacy: [facility], 152, cm, 06/30/23 15:07:00 EDT, Height/Length Dosing, 77.5, kg, 06/30/23 15:07:00 EDT, Weight Dosing Start Date: 06/30/23 Stop Date: 07/30/23 Status: Ordered Start: 06-05-2023 End: 07-05-2023 take 1 tablet by mouth once daily losartan 50 mg Tab 50 mg = 1 tab(s), Oral, Daily, X 30 day(s), # 30 tab(s), Refills(s) 0, Pharmacy: [facility], 152.4, cm, 06/05/23 8:54:00 EDT, Height/Length Dosing, 73, kg, 06/05/23 8:54:00 EDT, Weight Dosing Start Date: 06/05/23 Stop Date: 07/05/23 Status: Ordered Start: 11-05-2022 End: 10-31-2023 take 1 tablet by mouth once daily Cozaar 25 mg Tab 25 mg = 1 tab(s), Oral, Daily, stopping Lisinopril Starting Cozaar, X 90 day(s), # 90 tab(s), Refills(s) 3, Pharmacy: [facility], 152, cm, 11/05/22 11:35:00 EST, Height/Length Dosing, 76, kg, 11/05/22 11:35:00 EST, Weight Dosing Start Date: 11/05/22 Stop Date: 10/31/23 Status: Ordered losartan (Cozaar ) 25 MG tablet Take 100 mg by mouth. Active magnesium oxide 400 mg oral tablet (6 sources) Start: 11-25-2023 End: 06-22-2024 take 1 tablet by mouth in the morning magnesium oxide (Mag-Ox) 400 MG tablet Indications: Restless legs Take 1 tablet (400 mg) by mouth in the morning. 30 tablet 6 11/25/2023 06/22/2024 Active meclizine hydrochloride 25 mg oral tablet (1 source) Antiemetic Start: 05-08-2024 take 1 tablet by mouth three times daily as needed for dizziness meclizine 25 mg Tab 25 mg = 1 tab(s), Oral, TID, PRN for dizziness, # 30 tab(s), Refills(s) 0, Pharmacy: [facility], 152, cm, 05/08/24 7:24:00 EDT, Height/Length Dosing, 77.2, kg, 05/08/24 7:33:00 EDT, Weight Dosing Start Date: 05/08/24 Status: Ordered meloxicam 15 mg oral tablet (2 sources) Nonsteroidal Anti-inflammatory Drug Start: 12-18-2023 take 1 [...] day(s), # 21 tab(s), Refills(s) 0, Pharmacy: [facility], 152, cm, 09/22/23 11:39:00 EST, Height/Length Dosing, 70.5, kg, 09/22/23 11:39:00 EST, Weight Dosing Start Date: 09/22/23 Stop Date: 09/28/23 Status: Ordered 24 hr metoprolol succinate 50 mg extended release oral tablet (20 sources) beta-Adrenergic Hermilo Start: 11-17-2023 take 2 tablets by mouth once daily metoprolol succinate 50 mg ER Tab 100 mg = 2 tab(s), Oral, Daily, # 180 tab(s), Refills(s) 3, Pharmacy: [facility], 152, cm, 07/13/24 15:04:00 EDT, Height/Length Dosing, 75, kg, 07/13/24 15:04:00 EDT, Weight Dosing Start Date: 07/13/24 Status: Ordered Start: 06-30-2023 End: 12-27-2023 take 1 tablet by mouth once daily metoprolol 50 mg ER Tab 50 mg = 1 tab(s), Oral, Daily, # 90 tab(s), Refills(s) 1, Pharmacy: [facility], 152, cm, 07/14/23 9:26:00 EDT, Height/Length Dosing, 76.9, kg, 07/14/23 9:26:00 EDT, Weight Dosing Start Date: 07/14/23 Status: Ordered Start: 11-14-2022 take 1 tablet by herberth th once daily metoprolol 25 mg ER Tab 25 mg = 1 tab(s), Oral, Daily, # 90 tab(s), Refills(s) 3, Pharmacy: [facility], 152, cm, 11/05/22 11:35:00 EST, Height/Length Dosing, 76, kg, 11/05/22 11:35:00 EST, Weight Dosing Start Date: 11/14/22 Status: Ordered Start: 10-08-2021 End: 10-03-2022 take 1 tablet by mouth once daily Toprol XL 25 mg Tab-ER 25 mg = 1 tab(s), Oral, Daily, X 90 day(s), # 90 tab(s), Refills(s) 3, Pharmacy: [facility], 152, cm, 10/08/21 13:49:00 EST, Height/Length Dosing, 73, kg, 10/08/21 13:49:00 EST, Weight Dosing Start Date: 10/08/21 Stop Date: 10/03/22 Status: Ordered take 1 tablet by herberth th every twenty-four hours metoprolol succinate XL (Toprol-XL) 25 MG 24 hr tablet Take 50 mg by mouth. Do not crush or chew. Active Multi Vitamin+ (8 sources) Start: 09-22-2023 Multi Vitamin+ Oral, Daily, [...] BID, # 120 tab(s), Refills(s) 0, Pharmacy: [facility], 152.4, cm, 04/01/21 7:20:00 EDT, Height/Length Dosing, 85.5, kg, 04/01/21 7:20:00 EDT, Weight Dosing Start Date: 04/16/21 Status: Ordered Start: 09-18-2019 take 40 mg by mouth once daily pantoprazole 40 mg, Oral, Daily, Refills(s) 0 Start Date: 09/18/19 Status: Ordered pregabalin 25 mg oral capsule (6 sources) Start: 10-26-2023 pregabalin 25 mg Cap 25 mg = 1 cap(s), Oral, BID, start with once a day for 3-5 days. If doing well can go to BID, # 60 cap(s), Refills(s) 0, Pharmacy: [facility], 152, cm, 10/26/23 13:07:00 EST, Height/Length Dosing, 70.5, kg, 10/26/23 13:07:00 EST, Weight Dosing Start Date: 10/26/23 Status: Ordered rOPINIRole 0.5 mg oral tablet (20 sources) Nonergot Dopamine Agonist Start: 02-23-2023 ropinirole 0.5 mg, Oral, Refills(s) 0 Start Date: 09/22/23 Status: Ordered sucralfate 1000 mg oral tablet (20 sources) Aluminum Complex Start: 04-03-2023 take 1 tablet by mouth four times daily Carafate 1 gram Tab 1 gm = 1 tab(s), Oral, QID, # 120 tab(s), Refills(s) 3, Pharmacy: [facility], 152, cm, 04/03/23 9:20:00 EDT, Height/Length [...] g by mouth every 6 (six) hours. Active tiZANidine 2 mg oral tablet (2 sources) Central alpha-2 Adrenergic Agonist Start: 12-18-2023 take 1 tablet by mouth twice daily tiZANidine 2 mg Tab 2 mg = 1 tab(s), Oral, BID, Refills(s) 0 Start Date: 12/18/23 Status: Ordered Zofran ODT 4 mg Tab-Dis (1 source) Start: 05-08-2024 take 1 tablet by mouth every eight hours Zofran ODT 4 mg Tab-Dis 4 mg = 1 tab(s), Oral, q8hr, # 12 tab(s), Refills(s) 0, Pharmacy: [facility], 152, cm, 05/08/24 7:24:00 EDT, Height/Length Dosing, 77.2, kg, 05/08/24 7:33:00 EDT, Weight Dosing Start Date: 05/08/24 Status: Ordered Completed/Discontinued Medications Medication Drug Class(es) Dates Sig (Normalized) Sig (Original) Adult Blood Pressure Monitor with Large Bicep Cuff (17 sources) Start: 04-28-2023 Adult Blood Pressure Monitor with Large Bicep Cuff Adult Blood Pressure Monitor with Large Bicep Cuff, See Instructions, 1 EA, 0, Check BP Daily Dx I10, Supply Start Date: 04/28/23 Status: Ordered baclofen 5 mg oral tablet (1 source) gamma-Aminobutyric Acid-ergic Agonist Start: 07-06-2024 End: 08-05-2024 take 1 tablet by mouth three times daily as needed for pain baclofen 5 mg oral tablet 5 mg = 1 tab(s), Oral, TID, take one tab three times a day as needed for pain/spasms, X 30 day(s), # 90 tab(s), Refills(s) 0, Pharmacy: [facility], 152, cm, 07/06/24 15:10:00 EDT, Height/Length Dosing, 74, kg, 07/06/24 15:10:00 EDT, Weight Dosing Start Date: 07/06/24 Stop Date: 08/05/24 Status: Ordered DULoxetine 30 mg delayed release oral capsule (1 source) Serotonin and Norepinephrine Reuptake Inhibitor Start: 07-06-2024 End: 08-05-2024 take 2 tablets by mouth once daily at mealtime duloxetine 30 mg oral delayed release capsule 60 mg = 2 cap(s), Oral, Daily, take one tab in am for 1 week with food. Then take 2 tabs in am with food ongoing., X 30 day(s), # 60 cap(s), Refills(s) 0, Pharmacy: [facility], 152, cm, 07/06/24 15:10:00 EDT, Height/Length Dosing, 74, kg, 07/06/24 15:10:00 EDT, Weight Dosing Start Date: 07/06/24 Stop Date: 08/05/24 Status: Ordered Problems Active Problems Problem Classification Problem Date Documented Date Episodic/Chronic Abdominal hernia (2 sources) Diaphragmatic hernia; Translations: [Diaphragmatic hernia without obstruction or gangrene] Onset: 3 Episodic Abdominal pain (20 sources) Epigastric pain; Translations: [Epigastric pain] Onset: 3 Episodic Acquired foot deformities (9 sources) Hallux valgus AND bunion; Translations: [Hallux valgus (acquired), right foot] Onset: 3 05-21-2023 Chronic Acquired foot deformities (2 sources) 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; Translations: [Other acquired deformities of right foot] 08-11-2024 Episodic Acquired foot deformities (2 sources) 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; Translations: [Other acquired deformities of left foot] 08-11-2024 Episodic Appendicitis and other appendiceal conditions (20 sources) Appendicitis 03-07-2021 Episodic Biliary tract disease (1 source) Calculus of gallbladder without cholecystitis without obstruction; Translations: [CALCU GB W/O CHOLECYST W/O OBST] Onset: 3 Episodic Conditions associated with dizziness or vertigo (20 sources) Vertigo; Translations: [Dizziness and giddiness] Onset: 3 03-07-2021 Episodic Diverticulosis and diverticulitis (20 sources) Diverticula of intestine; Translations: [Diverticulosis of [...] Osteoarthritis (20 sources) Osteoarthritis of right knee joint; Translations: [Arthritis of left midtarsal joint] 03-07-2021 Chronic Osteoporosis (20 sources) Osteoporosis; Translations: [Age-related osteoporosis without current pathological fracture] Onset: 3 02-16-2023 Chronic Other connective tissue disease (1 source) Spasm; Translations: [Cramp and spasm] Onset: 2 Episodic Other connective tissue disease (20 sources) H/O: osteoarthritis 02-23-2023 Episodic Other connective tissue disease (10 sources) Tendinitis 09-22-2023 Episodic Other connective tissue disease (4 sources) Deformity of lower limb; Translations: [Contracture of muscle, right lower leg] 08-11-2024 Episodic Other connective tissue disease (2 sources) Pain in both feet; Translations: [Pain in right foot] 08-11-2024 Episodic Other connective tissue disease (2 sources) Cramp in foot; Translations: [Cramp and spasm] 08-11-2024 Episodic Other connective tissue disease (2 sources) Bilateral cramp of muscle of lower limbs; Translations: [Cramp and spasm] 08-11-2024 Episodic Other gastrointestinal disorders (1 source) Esophageal [...] sleep apnea (adult) (pediatric)] Onset: 3 Chronic Residual codes; unclassified (1 source) Pain, unspecified; Translations: [Pain, unspecified] Onset: 4 Episodic Unclassified (20 sources) Patient encounter status 02-20-2023 Unclassified (2 sources) CONTACT W/AND (SUSP) EXPOS COVID-19; Translations: [CONTACT W/AND (SUSP) EXPOS COVID-19] Onset: 3 Urinary tract infections (1 source) Urinary tract infectious disease; Translations: [Urinary tract infection, site not specified] Onset: 4 Episodic Viral infection (1 source) COVID-19; Translations: [COVID-19] [...] Test Name Value Interpretation Reference Range Facility CT Spine Lumbar w/ Contrasto n 08-19-2024 CT Spine Lumbar w/ Contrast Exam Date/Time: 08/19/2024 10:01 EDT Reason for Exam: M43.16 Report IMPRESSION: Degenerative changes lumbar spine as discussed. Grade 2 anterolisthesis of L5 on S1 measuring around 12 mm, secondary to chronic bilateral L5 pars defects (spondylolysis). High-grade bilateral foraminal narrowing at L5-S1. No high-grade canal narrowing. Advanced degenerative changes SI joints. HISTORY: Chronic lower back pain. TECHNIQUE: Routine CT myelogram of the lumbar spine with intrathecal contrast. Sagittal and coronal reconstructions. All CT scans at this facility use dose modulation, iterative reconstruction, and/or weight based dosing when appropriate to reduce radiation dose to as low as reasonably achievable. Unless otherwise stated, incidental findings identified in this report do not require routine follow-up imaging. COMPARISON: Radiographs 07/06/2024, 10/26/2023. RESULT: Counting reference: Lumbosacral junction. For the purposes of this report, L5-S1 is the last well-formed disc space. Alignment: Grade 2 anterolisthesis of L5 on S1 measuring around 12 mm. Mild levoscoliosis. Alignment otherwise near anatomic. Bone marrow /fracture: Chronic bilateral L5 pars defects (spondylolysis). No evidence for acute fracture. Vertebral body heights maintained. Advanced endplate degenerative changes at L5-S1 with vacuum disc phenomenon, severe disc height loss, and endplate sclerosis. Paraspinal soft tissues: No acute findings. Colonic diverticulosis. Vascular calcifications without aneurysm. T12-L1: No significant canal or foraminal narrowing. L1-L2: No significant canal or foraminal narrowing. L2-L3: Tiny disc bulge. Facet degenerative changes. No significant canal or foraminal narrowing. L3-L4: Broad-based disc bulge. Endplate osteophytes. Facet degenerative changes. Mild bilateral foraminal narrowing with mild canal narrowing. Report L4-L5: Broad-based disc bulge. Endplate osteophytes. Facet degenerative changes. No significant canal or foraminal narrowing. L5-S1: Anterolisthesis with disc uncovering. Advanced endplate degenerative changes. Disc bulge. Facet degenerative changes. Severe bilateral foraminal narrowing without significant canal narrowing. Sacrum and iliac wings: Advanced degenerative changes involving the SI joints with subchondral sclerosis. No acute findings. Ordering Provider: SAM KAISER FINAL REPORT Dictated: 08/19/2024 11:53 am Landon Wilkinson MD Signed (Electronic Signature): 08/19/2024 11:53 am Signed by: Landon Wilkinson MD Transcribed by: DP Technologist: DPR Technical Comments GFR (mL/min/1/73m2) >60 Contrast: Isovue 300 Contrast amount in ml's: 0 Normal [facility] Main OR PACU II [facility] Main OR PACU II Record Main OR PACU II Record PACU Phase II Document Type FT Summary Primary Physician: NONE, XXXX Finalized Date/Time: 08/19/24 14:04:04 Pt. Name: CHLOE AGARWAL/Sex: 1955 Female Med Rec #: [id number] Physician: SAM KAISER Financial #: [id number] Pt. Type: O Room/Bed: / Admit/Disch: 08/19/24 07:42:31 - Institution: [facility] PACU II FT Pre-Care Text: Identifies barriers to communication and implements measures to provide psychological support and determines knowledge level Develops individualized plan of care, and ensures continuity of care Maintains patient's dignity and privacy, and maintains patient confidentiality Identifies and reports philosophical, cultural, and spiritual beliefs and values Identifies individual values and wishes concerning care administers prescribed antibiotic therapy and immunizing agents as ordered, Evaluates postoperative tissue perfusion Implements thermoregulation measures, and monitors body temperature Evaluates postoperative respiratory status Evaluates postoperative cardiac status Evaluates postoperative neurological status Assesses pain control, collaborated in initiating patient-controlled analgesia and implements alternative methods of pain control Verifies allergies, administers prescribed medications and solutions, evaluates response to medications Entry 1 In PACU II 08/19/24 10:00:00 Discharge from PACU 08/19/24 14:00:00 II Outcomes Met? Yes Last Modified By: Monika Sales RN 08/19/24 14:04:02 Post-Care Text: The patient demonstrates knowledge of [...] affecting his or her perioperative plan of care. The patient is free from signs and [...] from baseline levels established preoperatively The patient's neurological status is consistent with or improved from baseline levels established preoperatively The patient demonstrates and/or reports adequate pain control throughout the perioperative period The patient received appropriate medication(s), safely administered during the perioperative period Finalized By: Monika Sales RN Document Signatures Signed By: Monika Sales RN 08/19/24 14:[address] [facility] Main OR Preoperative Recordo n 08-19-2024 Main OR Preoperative Record Main OR Preoperative Record Holding Area Document Type FT Summary Primary Physician: NONE, XXXX Finalized Date/Time: 08/19/24 08:06:37 Pt. Name: ANY CHLOEHO Powell/Sex: 1955 Female Med Rec #: [id number] Physician: SAM KAISER Financial #: [id number] Pt. Type: O Room/Bed: / Admit/Disch: 08/19/24 07:42:31 - Institution: Case [facility] Holding FT Pre-Care Text: Verifies consent for planned procedure, identifies individual values and wishes concerning care, includes family members in perioperative teaching Secures patient's records' belongings, and valuables, maintains patient's dignity and privacy, and maintains patient confidentiality Entry 1 In Holding 08/19/24 07:45:00 Outcomes Met? Yes Last Modified By: Monika Sales RN 08/19/24 08:04:12 Post-Care Text: The patient participates in decisions affecting his or her perioperative plan of care The patient's right to privacy is maintained Surgery Checklist FT Entry 1 Patient ID Band Check, Patient NPO after Midnight: No Identification: Participation Personal Items: Glasses Operative Site No Marking: Does Patient Smoke No Patient states Yes Case Cancelled in No postop adult Holding Area see supervision comments below for available reason Last Modified By: Monika Sales RN 08/19/24 08:06:35 Finalized By: Monika Sales RN Document Signatures Signed By: Monika Sales RN 08/19/24 08:06 Monika Sales RN 08/19/24 08:[address] [facility] XR Myelography Lumbosacralon 08-19-2024 XR Myelography Lumbosacral Exam Date/Time: 08/19/2024 09:59 EDT Reason for Exam: M43.16 Report IMPRESSION: Technically successful myelogram injection\X09\ PROCEDURE: XR Myelography Lumbosacral HISTORY: Back pain. Unable to have MRI secondary to claustrophobia. Radiculopathy. Consent: The risks, benefits, treatment options, potential were discussed with the patient. All questions were answered and consent was obtained. The patient indicated willingness to proceed. General: The lower back was sterile prepped and draped. Time Out: A time out was performed immediately prior to procedure start with the team correctly identifying the name, medical record number, procedure, anatomy (including marking of site), patient position, procedure consent form, relevant diagnostic and radiology test results, antibiotic administration, safety precautions, and procedure-specific equipment needs. Anesthesia Type: administration of local anesthesia. Local Anesthesia: 1% Lidocaine TECHNIQUE/RESULT: Access Site: 20 gauge spinal needle from a Midline paramedian approach at the L1-L2 level. Counting reference: Lumbosacral junction. For the purposes of this report, L5-S1 is last well-formed disc space. Procedure Details: Using sterile procedure, local anesthesia was introduced to the skin and subcutaneous tissues as outlined above. Diagnostic Myelo Details: Under fluoroscopic guidance, the needle was carefully advanced into the lumbar subarachnoid space resulting in free flow of CSF. 10 ml of Isovue-300 Intrathecal contrast was administered. CSF Color: Clear Estimated Blood Loss: 0 mls Type of Removed Specimens: CSF Number of Specimens: None Fluoroscopic Radiation Summary: Air Kerma (Ka,r): 43.3 mGy Post-Procedure: Report \X09\Conclusion: The patient was transferred to the Radiology Recovery Room in stable condition and observed for approximately 4 hours. Immediate Complications: None Ordering Provider: SAM KAISER FINAL REPORT Dictated: 08/19/2024 11:44 am Landon Wilkinson MD Signed (Electronic Signature): 08/19/2024 11:44 am Signed by: Landon Wilkinson MD Transcribed by: SCOTTY Technologist: DANIELLE Technical Comments Contrast: Isovue 300 M Radiation Dose: Ka,r in mGy = 43.30 DAP = 869.[address] [facility] Heart and Vascular Office/Cl inic Noteon 07-16-2024 Heart and Vascular Office/Clinic Note Heart and Vascular Office/Clinic Note Chief Complaint 6 month F/U History of Present Illness HPI: Chloe Agarwal presents for evaluation of multiple medical concerns. She reports experiencing significant pain that extends to her back, which she suspects may be due to gallstones. This pain differs from her previous chest pain. She has been experiencing leg cramps for several years, which she suspects may be related to her back issues. Despite being on numerous medications, she is unable to stretch in bed due to the pain radiating upwards. This pain often leads to nausea and vomiting. She maintains good hydration, consuming tea in the morning and refraining from drinking anything for the rest of the day. She experienced leg cramps in 2020. She continues to take losartan and a diuretic for hypertension, which she finds helpful. However, she wakes up hourly at night to urinate. Her blood work looked good. She is going in for a biopsy whenever they call her. Her family doctor diagnosed her with Graves' disease, but when she went to a specialist, she did not have it. Review of Systems PHQ Score Initial Depression Screen Score: 0 SCORE Constitutional: no fever, no sweats, no weakness Skin: no rash, no lesions, no bruising/petechiae ENMT: no sore throat, no congestion, no hoarseness Respiratory: no shortness of breath, no cough, no orthopnea, no wheezing Cardiovascular: no chest pain, no palpitations, no edema Gastrointestinal: no nausea, no vomiting, no diarrhea, no GI bleeding Genitourinary: no anuria/oliguria no hematuria Musculoskeletal: no back pain, no trauma Neurologic: no headache, no dizziness, no numbness, no weakness Psychiatric: no sleeping problems, no irritability, no anxiety/depression. Heme/Lymph: no bleeding tendency, no bruising tendency Allergy/Immunologic: no recurrent infections, no impaired immunity Additional ROS info: Except as noted in the above Review of Systems and in the History of Present Illness all other systems have been reviewed and are negative or noncontributory Physical Exam Vitals & Measurements HR: 68(Peripheral) RR: 18 BP: 137/82 SpO2: 98% HT: 60 in HT: 152 cm WT: 75.0 kg WT: 165 lb BMI: 32.46 General: alert, no acute distress Skin: warm, dry intact Head: atraumatic, normocephalic Neck: trachea midline, no JVD, no bruit Eye: normal conjunctiva, sclera clear ENMT: oral mucosa moist Cardiovascular: regular rate and rhythm, no murmur, normal peripheral perfusion Respiratory: lungs CTA, respirations non labored Chest wall: no deformity. Gastrointestinal: soft, non-distended, no tenderness, no guarding. Back: no tenderness, normal ROM, normal alignment. Extremities: no edema, no deformity, no trauma Neurological: oriented x 4, LOC appropriate for age, sensation equal & normal bilaterally, speech normal Psychiatric: cooperative, affect appropriate for age, normal judgement, normal psychiatric thoughts. Assessment/Plan 1. Chest pain. Previous evaluations for chest pain and other testing yielded normal results. The description of the pain does not align with typical gallstones, suggesting it may be due to anxiety or musculoskeletal pain. Heart catheterization in 2020 showed normal arteries. Her medications were refilled. 2. Leg cramps. The leg cramps may be exacerbated by stress, poor sleep, dehydration, or diuretic medication. Light exercise, stretching, and walking were recommended, along with nightly stretching exercises. Hydration was emphasized. 3. Gallstones. The patient reports pain that radiates to the back, which she attributes to gallstones. However, the pain described does not sound typical for gallstones. She was advised that gallstones usually cause pain in the upper right abdomen. 4. Thyroid nodule. The patient is awaiting a biopsy for a thyroid nodule to confirm the diagnosis. Blood work appeared normal, but a biopsy is recommended to be 100% certain. 5. Medication Management. Medications were refilled, including losartan and a diuretic for blood pressure management. The patient reports frequent urination at night, which may be related to the diuretic. Portions of this record may have been created with voice recognition artificial intelligence software, specifically [employer], [employer] and or [employer]. Substitutions may have occurred due to the inherent limitations of voice recognition and artificial intelligence software. ATTESTATION: Documentation services were performed after patient or guardian consented to allow [employer] to record this visit. ASHLEIGH creative specialist and provider reviewed before signing. ASHLEIGH: Malinda Sands Follow-up No qualifying data available Problem List/Past Medical History Ongoing BMI 34.0-34.9,adult Chest pain due to GERD Chronic GERD Duodenogastric bile reflux Dysphagia Epigastric pain Gastritis H/O: osteoarthritis Hiatal hernia with gastroesophag (more content not included)... Normal [facility] Comment on above: Result Comment: Elec tronically Signed By: Vincent CANTRELL, Willie Tovar\.br\Date and Time Signed: 07/16/24 07:52 EDT\.br\Electronically Co-Signed By: Nanette Rodrigues\.br\Date and Time Co-Signed: 07/13/24 17:16 EDT XR Spine Lumbar Complete Inc giovana Ayala 07-11-2024 XR Spine Lumbar Complete Including Bendi Exam Date/Time: 07/06/2024 17:29 EDT Reason for Exam: Other (please specify) Report IMPRESSION: GRADE 2 ANTEROLISTHESIS OF L5 ON S1 DETAILED. EXAMINATION: XR Spine Lumbar Complete Including Bendi TECHNIQUE: AP, lateral, bilateral oblique views of the lumbar spine and AP and lateral coned down view of the lumbosacral junction. Lateral flexion/extension views. HISTORY: Low back pain COMPARISONS: Radiographs 10/26/2023 FINDINGS: Grade 2 anterolisthesis of L5 on S1 of approximately 14 mm. This appears to increase to 17 mm with flexion but does not appear changed with extension. Lumbar vertebral body heights are maintained. Severe intervertebral disc height loss at L5-S1. Multilevel facet arthropathy. Atherosclerotic ossification of the abdominal aorta. Ordering Provider: Claudio Monroe FINAL REPORT Dictated: 07/11/2024 2:47 pm Nico Rogers DO Signed (Electronic Signature): 07/11/2024 2:47 pm Signed by: Nico Rogers DO Transcribed by: SCOTTY Technologist: ANETTE Technical Comments Radiation Dose: Ka,r in mGy = na DAP = na [facility] C Urineon 05-10-2024 Bacteria identified Cx Nom (U) Microbiology PROCEDURE: Urine Culture [R1] SOURCE: U CleanCatch BODY SITE: COLLECTED DATE/TIME: 05/08/2024 08:05 EDT RECEIVED DATE/TIME: 05/08/2024 16:07 EDT START DATE/TIME: 05/08/2024 16:07 EDT FREE TEXT SOURCE: Nelson Solares DO, DO, Kevin M. FINAL REPORTS Final Report [] Verified Date/Time: 05/10/2024 09:38 EDT <10,000 cfu/ml Mixed skin contaminants Performing Locations R1: This test was performed at: [facility], [address] [place] [address], [id number] , , [facility] Comment on above: Performed By: #### 2 [id number] #### [facility] [address] [place] [address] BB Draw & Holdon 05-08-2024 BB D&H Sample drawn for Blood Ba Normal [facility] Comment on above: Performed By: #### 1 [id number] #### [facility] [address] [place] [address] CBC w/ Auto Diffon 4 Basophils/100 WBC (Bld) 1.1 % Normal 0.0-2.[address] [facility] Comment on above: Performed By: #### 2 [id number] #### [facility] [address] [place] [address] Basophils/Leukocyte s Auto (Bld) [Pure # fraction] 0.1 E9/L Normal 0.0-0.[address] [facility] Comment on above: Performed By: #### 2 [id number] #### [facility] [address] [place] [address] Eosinophils (Bld) [#/Vol] 0.1 E9/L Normal 0.0-0.[address] [facility] Comment on above: Performed By: #### 2 [id number] #### [facility] [address] [place] [address] Eosinophils/100 WBC (Bld) 1.6 % Normal 0.0-8.[address] [facility] Comment on above: Performed By: #### 2 [id number] #### [facility] [address] [place] [address] Erythrocyte distribution width (RBC) [Ratio] 14.1 % Normal 10.9-14.[address] [facility] Comment on above: Performed By: #### 2 [id number] #### [facility] [address] [place] [address] Hematocrit (Bld) [Volume fraction] 38.2 % Normal 34.0-46.[address] [facility] Comment on above: Performed By: #### 2 [id number] #### [facility] [address] [place] [address] Hemoglobin (Bld) [Mass/Vol] 13.9 g/dL Normal 12.0-16.[address] [facility] Comment on above: Performed By: #### 2 [id number] #### [facility] [address] [place] [address] Lymphocytes (Bld) [#/Vol] 2.3 E9/L Normal 1.0-4.[address] [facility] Comment on above: Performed By: #### 2 [id number] #### [facility] [address] [place] [address] Lymphocytes/100 WBC (Bld) 26.4 % Normal 14.0-50.[address] [facility] Comment on above: Performed By: #### 2 [id number] #### [facility] [address] [place] [address] MCH (RBC) [Entitic mass] 32.6 pg Normal 27.0-34.[address] [facility] Comment on above: Performed By: #### 2 [id number] #### [facility] [address] [place] [address] MCHC (RBC) [Mass/Vol] 36.3 g/dL High 31.4-36.[address] [facility] Comment on above: Performed By: #### 2 [id number] #### [facility] [address] [place] [address] MCV (RBC) [Entitic vol] 89.9 fL Normal 80.0-100.[address] [facility] Comment on above: Performed By: #### 2 [id number] #### [facility] [address] [place] [address] Monocytes (Bld) [#/Vol] 0.8 E9/L Normal 0.2-1.[address] [facility] Comment on above: Performed By: #### 2 [id number] #### [facility] [address] [place] [address] Neutrophils (Bld) [#/Vol] 5.3 E9/L Normal 2.0-7.[address] [facility] Comment on above: Performed By: #### 2 [id number] #### [facility] [address] [place] [address] Neutrophils/100 WBC (Bld) 61.6 % Normal 36.0-75.[address] [facility] Comment on above: Performed By: #### 2 [id number] #### [facility] [address] [place] [address] Platelet 299.0 E9/L Normal 150.0-500. [address] [facility] Comment on above: Performed By: #### 2 [id number] #### [facility] [address] [place] [address] Platelet mean volume (Bld) [Entitic vol] 8.0 fL Normal 6.4-10.[address] [facility] Comment on above: Performed By: #### 2 [id number] #### [facility] [address] [place] [address] RBC (Bld) [#/Vol] 4.3 E12/L Normal 4.3-5.[address] [facility] Comment on above: Performed By: #### 2 [id number] #### [facility] [address] [place] [address] WBC corrected for nucl RBC Auto (Bld) [#/Vol] 8.6 E9/L Normal 4.0-11.[address] [facility] Comment on above: Performed By: #### 2 [id number] #### [facility] [address] [place] [address] CHEMISTRYOrdered By: SYSTEM SYSTEM on 05-08-2024 Albumin [Mass/Vol] 4.4 g/dL Normal 3.3 - 5.0 gm/dL Remisol Chem Albumin/Globulin [Mass ratio] 1.5 {ratio} Normal 1.1 - 2.2 Remisol Chem ALP [Catalytic activity/Vol] 59 [iU]/d Normal 21 - 98 Int._Unit/ L Remisol Chem ALT No additional P-5'-P [Catalytic activity/Vol] 18 [iU]/d Normal 6 - 46 Int._Unit/ L Remisol Chem Anion gap [Moles/Vol] 14 mmol/L Normal 6 - 16 mEq/L Remisol Chem AST [Catalytic activity/Vol] 18 [iU]/d Normal 5 - 43 Int._Unit/ L Remisol Chem Bilirubin [Mass/Vol] 1.1 mg/dL Normal 0.0 - 1.1 mg/dL Remisol Chem Calcium [Mass/Vol] 9.9 mg/dL Normal 8.9 - 11. 1 mg/dL Remisol Chem Chloride [Moles/Vol] 103 mmol/L Normal 101 - 111 mmol/L Remisol Chem CO2 [Moles/Vol] 26 mmol/L Normal 21 - 31 mmol/L Remisol Chem Creatinine [Mass/Vol] 0.8 mg/dL Normal 0.5 - 1.3 mg/dL Remisol Chem eGFR 81 mL/min/1.73 m2 Normal >=59mL/min /1.73 m2 Remisol Chem Globulin (S) [Mass/Vol] 2.9 g/dL Normal 1.4 - 4.0 gm/dL [facility] Chem Glucose [Mass/Vol] 112 mg/dL Normal 55 - 199 mg/dL Remisol Chem Magnesium [Mass/Vol] 2.2 mg/dL Normal 1.3 - 2.4 mg/dL Remisol Chem Potassium [Moles/Vol] 3.7 mmol/L Normal 3.5 - 5.3 mmol/L Remisol Chem Protein [Mass/Vol] 7.3 g/dL Normal 6.0 - 7.8 gm/dL Remisol Chem Sodium [Moles/Vol] 139 mmol/L Normal 135 - 145 mmol/L Remisol Chem Troponin HS 6.20 pg/mL Low 10.10 - 27.10 pg/mL Remisol Chem Comment on above: Interpretive Data: T he 95% CI (Confidence Interval) PPV (Positive Predictive Value) for myocardial infarction in females is 38 pg/mL, in males 51 pg/mL. The results should be used in conjunction with clinical conditions of myocardial infarction. (Access High Sensitivity Troponin I Instructions For Use, Demetra Jay, May 2018) Urea nitrogen [Mass/Vol] 22 mg/dL High 5 - 21 mg/dL Remisol Chem Urea nitrogen/Creatinine [Mass ratio] 28 mg/mg High 10 - 20 Remisol Chem CHEMISTRYOrdered By: Lab ROP User on 05-08-2024 Glucose [Mass/Vol] 111 mg/dL High 55 - 99 mg/dL [facility] POC Subsection Comment on above: Result Comment: Ovidio medrano RN/ POC Device SN [id number] Invalid Interpretation Code [facility] POC Subsection POC User ID [id number] 1 Invalid Interpretation Code [facility] POC Subsection POC Username CLAUS FRAZIER Invalid Interpretation Code [facility] POC Subsection CMPon 05-08-2024 Albumin [Mass/Vol] 4.4 g/dL Normal 3.3-5.[address] [facility] Comment on above: Performed By: #### 2 [id number] #### [facility] [address] [place] [address] Albumin/Globulin (S) [Mass conc ratio] 1.5 Normal 1.1-2.[address] [facility] Comment on above: Performed By: #### 2 [id number] #### [facility] [address] [place] [address] ALP [Catalytic activity/Vol] 59 Int._Unit/L Normal 21-[address] [facility] Comment on above: Performed By: #### 2 [id number] #### [facility] [address] [place] [address] ALT No additional P-5'-P [Catalytic activity/Vol] 18 Int._Unit/L Normal 6-[address] [facility] Comment on above: Performed By: #### 2 [id number] #### [facility] [address] [place] [address] Anion gap [Moles/Vol] 14 mmol/L Normal 6-[address] [facility] Comment on above: Performed By: #### 2 [id number] #### [facility] [address] [place] [address] AST [Catalytic activity/Vol] 18 Int._Unit/L Normal 5-[address] [facility] Comment on above: Performed By: #### 2 [id number] #### [facility] [address] [place] [address] Bilirubin [Mass/Vol] 1.1 mg/dL Normal 0.0-1.[address] [facility] Comment on above: Performed By: #### 2 [id number] #### [facility] [address] [place] [address] Calcium [Mass/Vol] 9.9 mg/dL Normal 8.9-11.[address] [facility] Comment on above: Performed By: #### 2 [id number] #### [facility] [address] [place] [address] Chloride [Moles/Vol] 103 mmol/L Normal 101-[address] [facility] Comment on above: Performed By: #### 2 [id number] #### [facility] [address] [place] [address] CO2 [Moles/Vol] 26 mmol/L Normal 21-[address] [facility] Comment on above: Performed By: #### 2 [id number] #### [facility] [address] [place] [address] Creatinine [Mass/Vol] 0.8 mg/dL Normal 0.5-1.[address] [facility] Comment on above: Performed By: #### 2 [id number] #### [facility] [address] [place] [address] Globulin (S) [Mass/Vol] 2.9 g/dL Normal 1.4-4.[address] [facility] Comment on above: Performed By: #### 2 [id number] #### [facility] [address] [place] [address] Glucose [Mass/Vol] 112 mg/dL Normal 55-[address] [facility] Comment on above: Performed By: #### 2 [id number] #### [facility] [address] [place] [address] Potassium [Moles/Vol] 3.7 mmol/L Normal 3.5-5.[address] [facility] Comment on above: Performed By: #### 2 [id number] #### [facility] [address] [place] [address] Protein [Mass/Vol] 7.3 g/dL Normal 6.0-7.[address] [facility] Comment on above: Performed By: #### 2 [id number] #### [facility] [address] [place] [address] Sodium [Moles/Vol] 139 mmol/L Normal 135-[address] [facility] Comment on above: Performed By: #### 2 [id number] #### [facility] [address] [place] [address] Urea nitrogen [Mass/Vol] 22 mg/dL High 5-[address] [facility] Comment on above: Performed By: #### 2 [id number] #### [facility] [address] [place] [address] Urea nitrogen/Creatinine [Mass ratio] 28 No Units High 10-[address] [facility] Comment on above: Performed By: #### 2 [id number] #### [facility] [address] [place] [address] COAGULATIONOrdered By: Yissel Amos on 05-08-2024 aPTT Coag (PPP) [Time] 30.0 s Normal 25.1 - 36.5 second(s) [facility] Co[facility] Comment on above: Interpretive Data: Jeanette garcia 15 days - 4 weeks 1 - 5 months 6 - 11 months 1 - 5 years 6 - 10 years 11 - 17 years PTT Mean: 35.4 (27.6-45.6) Mean: 33.5 (24.8-40.7) Mean: 32.4 (25.1-40.7) Mean: 31.6 (24.0-39.2) Mean: 31.6 (26.9-38.7) Mean: 31.0 (24.6-38.4) Pediatric Reference ranges were obtained from a study by Finn Banks et al. prepared from 1437 samples obtained at 7 different centers using the same coagulation reagent and instrumentation as [facility]. Currently there are no coagulation studies available worldwide for children to 14 days, and no normal ranges. Heparin therapeutic range (represented by Anti-Factor Xa activity of 0.2 - 0.4 U/mL) corresponds to PTT of 56.6 - 109.0 sec. INR Coag (PPP) [Relative time] 0.97 {INR} Invalid Interpretation Code [facility] Comment on above: Interpretive Data: I NR results are specifically intended to assess patients stabilized on long-term Anticoagulation therapy suggested INR s Less Intensive Anticoagulation 2.0 3.0 Conventional Range 3.0 4.5 PT Coag (PPP) [Time] 10.9 s Normal 9.4 - 12.5 second(s) [facility] Comment on above: Interpretive Data: 1 5 days - 4 weeks 1 - 5 months 6 -11 months 1 5 years 6 10 years 11 -17 years Mean: 11.2 (9.5 12.6) Mean: 11.0 (9.7 12.8) Mean: 11.0 (9.8 13.0) Mean: 11.3 (9.9 13.4) Mean: 11.7 (10.0 14.6) Mean: 11.8 (10.0 - 14.1) Pediatric Reference ranges were obtained from a study by Finn Banks et al. prepared from 1437 samples obtained at 7 different centers using the same coagulation reagent and instrumentation as [facility]. Currently there are no coagulation studies available worldwide for children to 14 days, and no normal ranges. CT Head or Brain w/o Contras ton 05-08-2024 CT Head or Brain w/o Contrast Exam Date/Time: 05/08/2024 07:32 EDT Reason for Exam: Neuro deficit, acute, stroke suspected;Stroke Report IMPRESSION: No acute intracranial process. COMMUNICATION: Communicated by statrad radiologist Dr. Zavala with: Dr. Solares on 05/08/2024 at 0744. EXAMINATION: CT Head or Brain w/o Contrast HISTORY: Stroke, Neuro deficit, acute, stroke suspected. Headaches. Dizziness. TECHNIQUE: Serial axial images without IV contrast were obtained from the vertex to the foramen magnum, with sagittal and coronal reconstructions. All CT scans at this facility use dose modulation, iterative reconstruction, and/or weight based dosing when appropriate to reduce radiation dose to as low as reasonably achievable. COMPARISON: 06/05/2023. RESULT: Acute change: No evidence of an acute infarct or other acute parenchymal process. Hemorrhage: No evidence of acute intracranial hemorrhage. Mass Lesion / Mass Effect: There is no evidence of an intracranial mass or extraaxial fluid collection. No significant mass effect. Chronic change: None apparent. Parenchyma: There is no significant volume loss. Ventricles: The ventricles are within normal limits of size and configuration for age. Paranasal sinuses and skull base: The visualized paranasal sinuses are grossly clear. Mastoid air cells clear. The skull base is unremarkable. Soft tissues unremarkable. Report Ordering Provider: Nelson Solares FINAL REPORT Dictated: 05/08/2024 7:55 am Landon Wilkinson MD Signed (Electronic Signature): 05/08/2024 7:55 am Signed by: Landon Wilkinson MD Transcribed by: SCOTTY Technologist: IVY Normal [facility] Capillary Glucose POCon 04-19 Glucose [Mass/Vol] 111 mg/dL High 55-[address] [facility] Comment on above: Result Comment: Ovidio medrano RN/ Performed By: #### 2 [id number] #### [facility] [address] [place] [address] ED Clinical Summaryon 2023 ED Clinical Summary ED Clinical Summary [address] [address] ED Clinical Summary Person Information Name: CHLOE AGARWAL [facility] Age: 68 Years : 1955 Sex: Female Language: Tajik PCP: Yarelis Mcghee MD Marital Status: Visit Id: Visit Reason: Nausea; Dizziness; DIZZINESS, NAUSEA Speciality: Acuity: 2 Enc Type: Emergency Med Service: Emergency Arrival: 05/08/2024 07:15:15 Discharge: 05/08/2024 09:45:37 LOS: 000 02:30 Checkin: 05/08/2024 07:15:15 Checkout: 05/08/2024 09:45:37 Dispo Type: Home (Routine DC) EVENTS: Event Name Event Status Request Date/Time Start Date/Time Complete Date/Time Arrive Complete 05/08/2024 07:15:15 05/08/2024 07:15:15 05/08/2024 07:15:15 Document Home Meds Request 05/08/2024 07:15:15 Triage Complete 05/08/2024 07:15:15 05/08/2024 07:24:58 05/08/2024 07:24:58 Bed Assign Complete 05/08/2024 07:17:36 05/08/2024 07:17:36 05/08/2024 07:17:36 Dr Exam Complete 05/08/2024 07:17:36 05/08/2024 07:22:28 05/08/2024 07:22:28 RN Exam Complete 05/08/2024 07:17:36 05/08/2024 08:24:13 05/08/2024 08:24:13 Registration Complete 05/08/2024 07:19:44 05/08/2024 07:19:44 05/08/2024 07:19:44 Reg Complete Request 05/08/2024 07:19:44 Reg Bed Request Complete 05/08/2024 07:19:44 05/08/2024 07:19:44 05/08/2024 07:19:44 Pending Labs Complete 05/08/2024 07:21:18 05/08/2024 07:21:18 05/08/2024 07:21:18 Registration Request 05/08/2024 07:22:28 NPO Request 05/08/2024 07:23:21 Pending Labs Complete 05/08/2024 07:23:21 05/08/2024 09:08:17 Blood Collect Request 05/08/2024 07:23:21 Lab Complete 05/08/2024 07:23:21 05/08/2024 07:56:17 Patient Care Request 05/08/2024 07:23:21 CT Complete 05/08/2024 07:23:21 05/08/2024 07:24:24 05/08/2024 07:32:37 X-Ray Complete 05/08/2024 07:23:21 05/08/2024 07:43:09 05/08/2024 07:52:43 RT Request 05/08/2024 07:23:21 EKG Complete 05/08/2024 07:23:46 05/08/2024 07:36:02 RR Stroke Request 05/08/2024 07:27:57 Pending Labs Complete 05/08/2024 07:35:14 05/08/2024 07:35:14 05/08/2024 07:56:17 Lab Complete 05/08/2024 07:35:14 05/08/2024 07:35:14 05/08/2024 07:56:17 Pending Labs Complete 05/08/2024 07:37:45 05/08/2024 07:37:45 05/08/2024 07:37:46 Pending Labs Complete 05/08/2024 07:38:55 05/08/2024 07:38:55 05/08/2024 07:48:03 Meds Admin Complete 05/08/2024 07:45:22 05/08/2024 08:08:01 Pending Labs Complete 05/08/2024 07:49:30 05/08/2024 07:49:30 05/08/2024 07:58:55 Lab Complete 05/08/2024 07:49:30 05/08/2024 07:49:30 05/08/2024 07:58:55 Wet Read Request 05/08/2024 07:52:43 Pending Labs Collected 05/08/2024 08:18:54 05/08/2024 08:18:54 Lab Collected 05/08/2024 08:18:54 05/08/2024 08:18:54 Discharge Complete 05/08/2024 09:33:52 05/08/2024 09:45:49 05/08/2024 09:45:49 Transfer Complete 05/08/2024 09:45:49 05/08/2024 09:45:49 05/08/2024 09:45:49 ADDRESS: [address] [place] [phone] PHYS DOC NOTES: MEDICAL INFORMATION: Prescriptions Given: New Medications [id number], [address] [place], [place] [id number], [phone] cephalexin (Keflex 500 mg Cap) 1 Capsules By Mouth every 12 hours for 5 Days. Refills: 0. lorazepam (Ativan 1 mg Tab) 1 Tablets By Mouth 3 times a day as needed Other (see comment) for 3 Days. dizziness. Refills: 0. meclizine (meclizine 25 mg Tab) 1 Tablets By Mouth 3 times a day as needed for dizziness. Refills: 0. ondansetron (Zofran ODT 4 mg Tab-Dis) 1 Tablets By Mouth every 8 hours. Refills: 0. Medications to Continue with No Changes Other Medications alendronate (alendronate 70 mg Tab) TAKE 1 TABLET BY MOUTH 30 MINUTES BEFORE first food once a week. hydrochlorothiazide (hydrochlorothiazide 12.5 mg Cap) 1 Capsules By Mouth every day. Refills: 5. losartan (losartan 100 mg Tab) 1 Tablets By Mouth at bedtime. Refills: 3. meloxicam (meloxicam 15 mg Tab) 1 Tablets By Mouth every day. metoprolol (metoprolol 50 mg ER Tab) 2 Tablets By Mouth every day. [facility] Pres[place] (Adult Blood Pressure Monitor with Large Bicep Cuff) Check BP Daily Dx I10. Refills: 0. multivitamin (Multi Vitamin+) By Mouth every day. pantoprazole (Protonix 40 mg Tab-DR) 1 Tablets By Mouth 2 times a day. Refills: 0. pregabalin (pregabalin 25 mg Cap) 1 Capsules By Mouth 2 times a day. start with once a day for 3-5 days. If doing well can go to BID. Refills: 0. ropinirole 0.5 Milligram By Mouth. sucralfate (Carafate 1 gram Tab) 1 Tablets By Mouth 4 times a day. Refills: 3. tizanidine (tiZANidine 2 mg Tab) 1 Tablets By Mouth 2 times a day. PATIENT EDUCATION INFORMATION: Instructions: Vertigo; Urinary Tract Infection, Adult Follow up: With: Address: When: Yarelis Mcghee [address] [place] [address], [address] [place] [phone] Business (1) In 3 days 05/11/2024 Comments: Call the office of your primary care doctor to arrange for follow-up within the above-stated timeframe. Follow-up with your primary care doctor about this ED visit. You should rev (more content not included)... Normal [facility] ED Note-Physicianon 05-08-20 ED Note-Physician ED Note-Physician Basic Information Time Seen: Nelson Solares DO 05/08/2024 07:22 Chief Complaint dizziness that started last night around 2200. pt says the room is spinning and she feels nauseous. muscle cramps today History of Present Illness 68-year-old female to the emergency department with chief complaint of vertigo. Patient reports that she went to bed last night at 10 PM and felt her baseline. She reports that she woke up this morning and felt dizzy which she describes as a room spinning and nauseous. No vomiting. No vision changes, numbness, weakness, tingling, difficulty walking. Patient reports she is also been having increasing muscle cramps. She had some in her arms and her legs. She has been treated for this with magnesium and some other medications assuming it is restless leg. She reports it seems to be worse at night. Patient reports she is under a lot of stress as her dybqhz-ll-rwh just and she has a to attend tomorrow. She reports that she has had episodes of vertigo in the past, she was told her blood pressure was high once during 1 of these episodes and believes it may be high today. b Review of Systems A 10 point review of systems is negative except as noted above. Medical and Surgical History: Reviewed and noted Social history: Lives at home Tobacco: Denies Physical Exam Vitals & Measurements T: 36.9 ?C(Oral) HR: 64(Peripheral) RR: 16 BP: 163/82 SpO2: 100% HT: 152 cm WT: 77.2 kg BMI: 33.41 VITALS: I have reviewed the triage vital signs. GENERAL: Anxious elderly female in no distress NEURO: Alert and oriented. Moves all extremities. Face is symmetric and expressive. NIHSS 0. EYES: PERRL. No scleral icterus or conjunctival injection. No discharge. HENT: Normocephalic, atraumatic. Hearing is grossly intact. Nares grossly patent and without discharge. Mucous membranes moist. NECK: No JVD. Patient moves neck without restriction. CARDIO: Rhythm regular. Normal rate. No murmur, rub, or gallop. Pulses equal bilaterally in the upper and lower extremity. No lower extremity edema. PULM: Lungs clear to auscultation in all ravi. No wheezes, rales, or rhonchi. No conversational dyspnea. No splinting, stridor, or accessory muscle use. GI/: Abdomen is soft and non-tender. Normoactive bowel sounds. EXTREMITIES: Symmetric muscle bulk. No joint swelling. No clubbing, cyanosis, or deformity. SKIN: Warm and dry. Normal turgor. No rash or lesions appreciated. PSYCH: Anxious Medical Decision Making 68-year-old female to the emergency department with chief complaint of vertigo, trouble sleeping, muscle cramps. Vital stable, the patient is afebrile. Patient is very anxious in the room. Has history of vertigo. Will treat symptoms with Zofran, meclizine, Ativan. NIHSS 0. This does not appear consistent with an acute ischemic stroke. Her anxiety/stress also appears to be playing a role. Lab work unremarkable. Troponin negative. EKG without evidence of ischemia or arrhythmia. CT head is negative. After medications the patient felt much improved. She was able to ambulate without any difficulty. Believe this represents peripheral vertigo. No signs of central vertigo by history or exam. Patient comfortable plan for discharge home with medications for symptomatic therapy. Return precautions were discussed. All questions were answered. The patient was discharged home. Assessment/Plan Vertigo (R42: Dizziness and giddiness) Orders: lorazepam, 1 mg = 1 tab(s), Tab, Oral, Once, Stop date 05/08/24 7:45:00 EDT, STAT, Start date 05/08/24 7:45:00 EDT, 05/08/24 7:45:00 EDT meclizine, 12.5 mg = 1 tab(s), Tab, Oral, Once, Stop date 05/08/24 7:44:00 EDT, STAT, Start date 05/08/24 7:44:00 EDT, 05/08/24 7:44:00 EDT ondansetron, 4 mg = 1 tab(s), Tab-Dis, Oral, Once, Stop date 05/08/24 7:45:00 EDT, STAT, Start date 05/08/24 7:45:00 EDT, 05/08/24 7:45:00 EDT Add on Test BB Draw & Hold Capillary Glucose POC Cardiac Monitoring CBC w/ Auto Diff Communication Order Communication Order Comprehensive Metabolic Panel Continuous Pulse Oximetry CT Head or Brain w/o Contrast Dysphagia Screen ECG 12 Lead Adult eGFR Extra Martínez Tube Extra Martínez Tube Extra SST Tube Neurological Assessment Oxygen Protocol PT & PTT Rapid Response Form Routine Capillary Glucose POC Stroke Quality Measures Troponin 0 Hr. UA with Cult Rflx Vital Signs XR Chest Single View Disposition Plan Patient Discharge Condition Stable Discharge Disposition Home Discharge Prescription List Prescriptions No active prescription medications Follow-up No qualifying data available Problem List/Past Medical History Ongoing BMI 34.0-34.9,adult Chest pain due to GERD Chronic GERD Duodenogastric bile reflux Dysphagia Epigastric pain Gastritis H/O: osteoarthritis Hiatal hernia with gastroesophageal reflux HTN (hypertension) Osteoporosis Regurgitation of stomach contents Screening for malignant neopla (more content not included)... Normal [facility] Comment on above: Result Comment: Elec tronically Signed By: Nelson Solares DO\.br\Date and Time Signed: 05/08/24 11:48 EDT ED Patient Summaryon 024 ED Patient Summary ED Patient Summary [place] [id number] Patient Discharge Instructions Person Information Name: CHLOE AGARWAL Age: 68 Years Arrival Date: 05/08/2024 07:15:15 Discharge Diagnosis: Acute UTI; Vertigo Primary Care Physician: Yarelis Mcghee MD Provider Information Primary Provider: Nelson Solares DO Advanced [employer] Painter:None The exam and treatment you received in the Emergency Department were for an urgent problem and are not intended as complete care. It is important that you follow up with a doctor, nurse practitioner, or physician?s social human services assistants for ongoing care. If your symptoms become worse or you do not improve as expected and you are unable to reach your usual health care provider, you should return to the Emergency Department. We are available 24 hours a day. CHLOE AGARWAL has been given the following list of patient education materials, prescriptions and follow-up instructions: Follow-up Instructions: With: Address: When: Yarelis Mcghee [address] [place] [address], [place] [address] [employer] (1) In 3 days 05/11/2024 Comments: Call the office of your primary care doctor to arrange for follow-up within the above-stated timeframe. Follow-up with your primary care doctor about this ED visit. You should review your labs, imaging, and diagnoses from this ED visit with your primary care physician. There are occasionally non-emergent findings that require additional follow-up after your ED visit. If you were prescribed medications you should discuss possible side-effects and drug interactions with your pharmacist. Call 911 or go to the nearest Emergency Department if you develop any new or worsening symptoms. In the event that this physician does not participate in your insurance network, please consult with your insurance company to find a nearby participating provider. Patient Education Materials: Vertigo; Urinary Tract Infection, Adult A MESSAGE TO ALL PATIENTS REGARDING OPIOIDS PRESCRIPTION OPIOIDS: WHAT YOU NEED TO KNOW Prescription opioids can be used to help relieve hqljztxv-sz-dhonvd pain and are often prescribed following a [...] prescription opioids. ? Store prescription opioids in (more content not included)... Normal [facility] HEMATOLOGYOrdered By: SYSTEM SYSTEM on 05-08-2024 Basophils/100 WBC (Bld) 1.1 % Normal 0.0 - 2.0 % Remisol Heme Basophils/Leukocyte s Auto (Bld) [Pure # fraction] 0.1 E9/L Normal 0.0 - 0.2 E9/L Remisol Heme Eosinophils (Bld) [#/Vol] 0.1 E9/L Normal 0.0 - 0.5 E9/L Remisol Heme Eosinophils/100 WBC (Bld) 1.6 % Normal 0.0 - 8.0 % Remisol Heme Erythrocyte distribution width (RBC) [Ratio] 14.1 % Normal 10.9 - 14.2 % Remisol Heme Hematocrit (Bld) [Volume fraction] 38.2 % Normal 34.0 - 46.0 % Remisol Heme Hemoglobin (Bld) [Mass/Vol] 13.9 g/dL Normal 12.0 - 16.0 gm/dL Remisol Heme Lymphocytes (Bld) [#/Vol] 2.3 E9/L Normal 1.0 - 4.0 E9/L Remisol Heme Lymphocytes/100 WBC (Bld) 26.4 % Normal 14.0 - 50.0 % Remisol Heme MCH (RBC) [Entitic mass] 32.6 pg Normal 27.0 - 34.0 pg Remisol Heme MCHC (RBC) [Mass/Vol] 36.3 g/dL High 31.4 - 36.0 gm/dL Remisol Heme MCV (RBC) [Entitic vol] 89.9 fL Normal 80.0 - 100.0 fL Remisol Heme Monocytes (Bld) [#/Vol] 0.8 E9/L Normal 0.2 - 1.0 E9/L Remisol Heme Monocytes/100 WBC (Bld) 9.3 % Normal 4.0 - 14.0 % Remisol Heme Neutrophils (Bld) [#/Vol] 5.3 E9/L Normal 2.0 - 7.5 E9/L Remisol Heme Neutrophils/100 WBC (Bld) 61.6 % Normal 36.0 - 75.0 % Remisol Heme Platelet 299.0 E9/L Normal 150.0 - 500.0 E9/L Remisol Heme Platelet mean volume (Bld) [Entitic vol] 8.0 fL Normal 6.4 - 10.8 fL Remisol Heme RBC (Bld) [#/Vol] 4.3 E12/L Normal 4.3 - 5.9 E12/L Remisol Heme WBC corrected for nucl RBC Auto (Bld) [#/Vol] 8.6 E9/L Normal 4.0 - 11.0 E9/L Remisol Heme Magnesiumon 05-08-2024 Magnesium [Mass/Vol] 2.2 mg/dL Normal 1.3-2.[address] [facility] Comment on above: Performed By: #### 2 [id number] #### [facility] [address] [place] [address] PT & PTTon 05-08-2024 aPTT Coag (PPP) [Time] 30.0 second(s) Normal 25.1-36.[address] [facility] Comment on above: Result Comment: Para meter 15 days - 4 weeks 1 - 5 months 6 - 11 months 1 - 5 years 6 - 10 years 11 - 17 years PTT Mean: 35.4 (27.6-45.6) Mean: 33.5 (24.8-40.7) Mean: 32.4 (25.1-40.7) Mean: 31.6 (24.0-39.2) Mean: 31.6 (26.9-38.7) Mean: 31.0 (24.6-38.4) Pediatric Reference ranges were obtained from a study by dot Perez al. prepared from 1437 samples obtained at 7 different centers using the same coagulation reagent and instrumentation as [facility]. Currently there are no coagulation studies available worldwide for children to 14 days, and no normal ranges. Heparin therapeutic range (represented by Anti-Factor Xa activity of 0.2 - 0.4 U/mL) corresponds to PTT of 56.6 - 109.0 sec. Performed By: #### 1 [id number] #### [facility] [address] [place] [address] INR Coag (PPP) [Relative time] 0.97 {INR} Invalid Interpretation Code [facility] Comment on above: Result Comment: INR results are specifically intended to assess patients stabilized on long-term Anticoagulation therapy suggested INR?s ?Less Intensive Anticoagulation? 2.0 ? 3.0 Conventional Range 3.0 ? 4.5 Performed By: #### 1 [id number] #### [facility] [address] [place] [address] PT Coag (PPP) [Time] 10.9 second(s) Normal 9.4-12.[address] [facility] Comment on above: Result Comment: 15 d ays - 4 weeks 1 - 5 months 6 -11 months 1 ? 5 years 6 ? 10 years 11 -17 years Mean: 11.2 (9.5 ? 12.6) Mean: 11.0 (9.7 ? 12.8) Mean: 11.0 (9.8 ? 13.0) Mean: 11.3 (9.9 ? 13.4) Mean: 11.7 (10.0 ? 14.6) Mean: 11.8 (10.0 - 14.1) Pediatric Reference ranges were obtained from a study by Finn Banks et al. prepared from 1437 samples obtained at 7 different centers using the same coagulation reagent and instrumentation as [facility]. Currently there are no coagulation studies available worldwide for children to 14 days, and no normal ranges. Performed By: #### 1 [id number] #### [facility] [address] [place] [address] Troponin 0 Hr.on 05-08-2024 Troponin HS 6.20 pg/mL Low 10.10-27.[address] [facility] Comment on above: Result Comment: The 95% CI (Confidence Interval) PPV (Positive Predictive Value) for myocardial infarction in females is 38 pg/mL, in males 51 pg/mL. The results should be used in conjunction with clinical conditions of myocardial infarction. (Access High Sensitivity Troponin I Instructions For Use, Demetra Jay, May 2018) Performed By: #### 1 [id number] #### [facility] [address] [place] [address] UA with Cult Rflxon 05-08-20 24 Bacteria Auto Ql (U) Trace Normal Trace [facility] Comment on above: Performed By: #### 4 [id number] #### [facility] [address] [place] [address] Bilirubin Ql (U) Negative Normal Negative [facility] Comment on above: Performed By: #### 4 [id number] #### [facility] [address] [place] [address] Clarity (U) Clear Normal Clear [facility] Comment on above: Performed By: #### 4 [id number] #### [facility] [address] [place] [address] Color (U) Colorless Abnormal Yellow [facility] Comment on above: Result Comment: Micr oscopic readings are only performed on those samples that meet specific criteria set forth by [facility]. Performed By: #### 4 [id number] #### [facility] [address] [place] [address] Epithelial cells.squamous Auto (Urine sed) [#/Area] 0-2 Invalid Interpretation Code [facility] Comment on above: Performed By: #### 4 [id number] #### [facility] [address] [place] [address] Glucose Ql (U) Negative Normal Negative [facility] Comment on above: Performed By: #### 4 [id number] #### [facility] [address] [place] [address] Hemoglobin Auto test strip (U) [Mass/Vol] Negative Normal Negative [facility] Comment on above: Performed By: #### 4 [id number] #### [facility] [address] [place] [address] Ketones Auto test strip Ql (U) Negative Normal Negative [facility] Comment on above: Performed By: #### 4 [id number] #### [facility] [address] [place] [address] Leukocyte esterase Auto test strip Ql (U) 250 Danielle/uL Abnormal Negative [facility] Comment on above: Performed By: #### 4 [id number] #### [facility] [address] [place] [address] Mucus Auto Ql (U) Negative Normal Negative [facility] Comment on above: Performed By: #### 4 [id number] #### [facility] [address] [place] [address] Nitrite Auto test strip Ql (U) Negative Normal Negative [facility] Comment on above: Performed By: #### 4 [id number] #### [facility] [address] [place] [address] pH (U) 7.0 [pH] Invalid Interpretation Code 5.0-9.[address] [facility] Comment on above: Performed By: #### 4 [id number] #### [facility] [address] [place] [address] Protein Ql (U) Negative Normal Negative [facility] Comment on above: Performed By: #### 4 [id number] #### [facility] [address] [place] [id number] RBC Ql (U) 0-3 Normal 0-[address] [facility] Comment on above: Performed By: #### 4 [id number] #### [facility] [address] [place] [address] Specific gravity (U) [Rel density] 1.008 Invalid Interpretation Code 1.005-1.[address] [facility] Comment on above: Performed By: #### 4 [id number] #### [facility] [address] [place] [address] Urobilinogen (U) [Mass/Vol] Negative Normal Negative [facility] Comment on above: Performed By: #### 4 [id number] #### [facility] [address] [place] [address] WBC Auto (Urine sed) [#/Area] 6-15 Abnormal 0-[address] [facility] Comment on above: Performed By: #### 4 [id number] #### [facility] [address] [place] [address] Type of Urine collection method Clean Catch Normal [facility] Comment on above: Performed By: #### 4 [id number] #### [facility] [address] [place] [address] URINALYSISOrdered By: SYSTEM SYSTEM on 05-08-2024 Bacteria Auto Ql (U) Trace /HPF Normal Trace/HPF [facility] UA Auto SS Bilirubin Ql (U) Negative Normal Negativemg /dL [facility] UA Auto SS Clarity (U) Clear (05/08/24 8:05 AM) Normal Clear [facility] UA Auto SS Color (U) Colorless 1 *ABN* (05/08/24 8:05 AM) Invalid Interpretation Code Yellow [facility] UA Auto SS Comment on above: Interpretive Data: M icroscopic readings are only performed on those samples that meet specific criteria set forth by [facility]. Epithelial cells.squamous Auto (Urine sed) [#/Area] 0-2 graded/HPF Invalid Interpretation Code [facility] UA Auto SS Glucose Ql (U) Negative Normal Negativemg /dL [facility] UA Auto SS Hemoglobin Auto test strip (U) [Mass/Vol] Negative Normal Negativemg /dL [facility] UA Auto SS Ketones Auto test strip Ql (U) Negative Normal Negativemg /dL [facility] UA Auto SS Leukocyte esterase Auto test strip Ql (U) 250 Danielle/uL Danielle/uL Invalid Interpretation Code NegativeLe u/uL [facility] UA Auto SS Mucus Auto Ql (U) Negative Normal Negativegr aded/LPF [facility] UA Auto SS Nitrite Auto test strip Ql (U) Negative Normal Negativemg /dL [facility] UA Auto SS pH (U) 7.0 *NA* (05/08/24 8:05 AM) Invalid Interpretation Code 5.0 - 9.0 [facility] UA Auto SS Protein Ql (U) Negative Normal Negativemg /dL [facility] UA Auto SS RBC Ql (U) 0-3 graded/HPF Normal 0-3graded/ HPF [facility] UA Auto SS Specific gravity (U) [Rel density] 1.008 *NA* (05/08/24 8:05 AM) Invalid Interpretation Code 1.005 - 1.030 [facility] UA Auto SS Urobilinogen (U) [Mass/Vol] Negative Normal Negativemg /dL [facility] UA Auto SS WBC Auto (Urine sed) [#/Area] 6-15 graded/HPF Invalid Interpretation Code 0-5graded/ HPF [facility] UA Auto SS URINALYSISOrdered By: Nelson Solares on 05-08-2024 UA Spec Desc Clean Catch (05/08/24 8:05 AM) Normal [facility] UA Auto SS Work Phone: XR Chest Single Viewon 05-08 XR Chest Single View Exam Date/Time: 05/08/2024 07:52 EDT Reason for Exam: Chest pain Report IMPRESSION: No acute findings by portable radiography. EXAMINATION: XR Chest Single View Clinical History: Chest pain Comparison: 06/05/2023. RESULT: Some limitations from patient body habitus and portable technique. No consolidation. No pleural effusion. No pneumothorax. Normal cardiomediastinal silhouette. No acute osseous findings. Ordering Provider: Nelson Solares FINAL REPORT Dictated: 05/08/2024 12:55 pm Landon Wilkinson MD. Signed (Electronic Signature): 05/08/2024 12:55 pm Signed by: Landon Wilkinson MD Transcribed by: SCOTTY Technologist: IVY Technical Comments Radiation Dose: Ka,r in mGy = . DAP = . Normal [facility] eGFRon 05-08-2024 eGFR 81 mL/min/1.73 m2 Normal >=[address] [facility] Comment on above: Order Comment: Order added by Discern Expert. Performed By: #### 1 [id number] #### [facility] [address] [place] [address] Heart and Vascular Office/Cl inic Noteon 01-17-2024 Heart and Vascular Office/Clinic Note Chief Complaint 1 month F/U History of Present Illness Chloe Agarwal is a 68-year-old female who presents for evaluation of multiple medical concerns. An adult male accompanies her. She has elevated blood pressure, but she is doing great due to the effectiveness of taking her diuretic and losartan medication at the same time. Her blood pressure was also great when she had a meeting with the spine doctor the other day. She wonders why her blood pressure is elevated. Pain management put her on gabapentin 300 mg, which made her blood pressure worse, where she ended up in the ER with a systolic blood pressure of 200. She was on it for 2 weeks but discontinued taking it. She inquires how often a heart catheterization is done. She always has awful leg cramps to the point where she cannot lay in bed and stretch. Her cramps would often radiate up into her toes. She is on medication for her leg cramps. She had blood work done by her cotton factor at [facility]. Her cholesterol was low. She has been drinking a lot of water. She does not sleep. She was supposed to do a sleep apnea test that Dr. Douglas started last year, 2022. She had the first test for that, but the second test was canceled due to a defect in the machine and not wanting to have negative side effects such as headaches. She is on sucralfate. She has gallstones. She has a hiatal hernia. She went to the spine doctor last week due to her L5-S1 issue. She does not want to undergo surgery. Review of Systems PHQ Score Initial Depression Screen Score: 0 SCORE Initial Depression Screen Score: 0 SCORE Constitutional: no fever, no sweats, no weakness Skin: no rash, no lesions, no bruising/petechiae ENMT: no sore throat, no congestion, no hoarseness Respiratory: no shortness of breath, no cough, no orthopnea, no wheezing Cardiovascular: no chest pain, no palpitations, no edema Gastrointestinal: no nausea, no vomiting, no diarrhea, no GI bleeding Genitourinary: no anuria/oliguria no hematuria Musculoskeletal: no back pain, no trauma Neurologic: no headache, no dizziness, no numbness, no weakness Psychiatric: no sleeping problems, no irritability, no anxiety/depression. Heme/Lymph: no bleeding tendency, no bruising tendency Allergy/Immunologic: no recurrent infections, no impaired immunity Additional ROS info: Except as noted in the above Review of Systems and in the History of Present Illness all other systems have been reviewed and are negative or noncontributory Physical Exam Vitals & Measurements HR: 60(Peripheral) BP: 110/70 SpO2: 99% HT: 60 in HT: 152 cm WT: 79.2 kg WT: 174.24 lb BMI: 34.28 General: alert, no acute distress Skin: warm, dry intact Head: atraumatic, normocephalic Neck: trachea midline, no JVD, no bruit, carotids sound good Eye: normal conjunctiva, sclera clear ENMT: oral mucosa moist Cardiovascular: regular rate and rhythm, no murmur, normal peripheral perfusion Respiratory: lungs CTA, respirations non labored Chest wall: no deformity. Gastrointestinal: soft, non-distended, no tenderness, no guarding. Back: no tenderness, normal ROM, normal alignment. Extremities: no edema, no deformity, no trauma Neurological: oriented x 4, LOC appropriate for age, sensation equal & normal bilaterally, speech normal Psychiatric: cooperative, affect appropriate for age, normal judgement, normal psychiatric thoughts. Assessment/Plan Chloe Agarwal is a female with hypertension, leg cramps and sleep apnea. Her stress test and heart catheterization were normal. Her arteries are normal. She does not need a heart catheterization any time soon. 1. Hypertension. Her blood pressure is well controlled. I will refill her losartan. 2. Leg cramps. It might be medication related. Her bad sleep can give her some cramps. She was advised to drink plenty of fluids before bed. I will obtain labs from [facility] to make sure she does not have abnormal electrolytes. 3. Sleep apnea. I will check with Dr. Husain regarding CPAP. Follow-up The patient will follow up in 6 months. Portions of this record may have been created with voice recognition artificial intelligence software, specifically Jibestream, [employer] and or [employer]. Substitutions may have occurred due to the inherent limitations of voice recognition and artificial intelligence software. ATTESTATION: Documentation services were performed after patient or guardian consented to allow [employer] to record this visit. ASHLEIGH creative specialist and provider reviewed before signing. ASHLEIGH: Phoebe Kandace Oseo. Follow-up No qualifying data available Problem List/Past Medical History Ongoing BMI 34.0-34.9,adult Chest pain due to GERD Chronic GERD Duodenogastric bile reflux Dysphagia Epigastric pain Gastritis H/O: osteoarthritis Hiatal hernia with gastroesophageal reflux HTN (hypertension) Osteoporosis Regurgitation of stomach contents Screenin (more content not included)... Normal [facility] Comment on above: Result Comment: Elec tronically Signed By: Vincent CANTRELL, Willie Tovar\.br\Date and Time Signed: 01/17/24 10:22 EDT\.br\Electronically Co-Signed By: Florinda Maguire\.br\Date and Time Co-Signed: 12/18/23 16:08 EST [facility] 12-21-2023 Outside Labs [id number]#1.00TIFF [facility] Physician Orderon 12-21-2023 Physician Order [id number]#1.00TIFF Normal [facility] Ambulatory Visit Summaryon 0 12-18-2023 Ambulatory Visit Summary CHLOE AGARWAL :1955 Visit Date:12/18/2023 Ambulatory Visit Instructions Your Care Team Attending Physician - Vincent CANTRELL, Willie Tovar Primary Care Physician - Nathalie CANTRELL, Yarelis Referring Physician - NONE, XXXX This Is Your Medications List [facility] [place] (Adult Blood Pressure Monitor with Large [...] (04/20/2023), Colonoscopy (04/03/2023), Colonoscopy (04/03/2023), EGD - Esophagogastroduodenoscopy (04/03/2023), Esophagogastroduodenoscopy (04/03/2023), Injection of nerve root of lumbar spine using fluoroscopic guidance (03/17/2023), Cardiac catheterization procedure (09/17/2021), EGD - Esophagogastroduodenoscopy (04/01/2021), Appendectomy (10/19/2017), Arthroplasty of knee, Arthroplasty of knee, EGD - Esophagogastroduodenoscopy, Tonsillectomy with adenoidectomy, Ureterorenoscopy with fragmentation and [...] Tablets By Mouth At bedtime Pickup at [facility] Unchanged meloxicam (meloxicam 15 mg Tab) 1 Tablets By Mouth Every day Unchanged metoprolol (metoprolol 50 mg ER Tab) 2 Tablets By Mouth Every day Unchanged [facility] Prescription (Adult Blood Pressure Monitor with Large [...] Mouth 2 times a day Pharmacy Information [facility]: [address] [place], [place] [id number] [phone] Allergies gabapentin (Headache) lisinopril (Coughing) sulfa drugs [...] for choosing us for your care. Normal [facility] ALL THYROXINE (T4) FREEon Free T4 [Mass/Vol] 1.30 ng/dL 0.76 - 1.46 ng/dL [facility] ALL LIPID PROFILE (FASTING)o n 11-30-2023 CHOL HDL RATIO 3.0 [facility] Comment on above: 3.3 - 4.4 LOW RISK 4.4 - 7.1 AVERAGE RISK 7.1 - 11.0 MODERATE RISK >11.0 HIGH RISK Cholesterol [Mass/Vol] 177 mg/dL NINF - 200 mg/dL [facility] Cholesterol in HDL [Mass/Vol] 59 mg/dL 40 - 60 mg/dL [facility] Comment on above: > or =60 mg/dl - LOW CARDIOVASCULAR RISK <40 mg/dl - HIGH CARDIOVASCULAR RISK Magnesium [Mass/Vol] 96.8 mg/dL [facility] Comment on above: <100 mg/dl OPTIMAL 100-129 mg/dl NEAR OR ABOVE OPTIMAL 130-159 mg/dl BORDERLINE HIGH 160-189 mg/dl HIGH >190 mg/dl VERY HIGH Magnesium [Mass/Vol] 21.2 mg/dL [facility] Triglyceride [Mass/Vol] 106 mg/dL NINF - 150 mg/dL [facility] ALL THYROID STIM HORMONEon 0 11-30-2023 TSH Qn 0.028 m[IU]/L Low [facility]CF CMP (CMP) (FOR REMOTE FH C USE)on 11-30-2023 Albumin [Mass/Vol] 3.6 g/dL 3.4 - 5.0 g/dL [facility] ALBUMIN GLOBULIN RATIO 1.0 [facility] ALP [Catalytic activity/Vol] 62 U/L 46 - 116 U/L [facility] ALT [Catalytic activity/Vol] 23 U/L 14 - 59 U/L [facility] Anion gap [Moles/Vol] 12.6 mmol/L [facility] AST [Catalytic activity/Vol] 17 U/L 15 - 37 U/L [facility] Bilirubin [Mass/Vol] 1.2 mg/dL High 0.2 - 1.0 mg/dL [facility] Calcium [Mass/Vol] 9.1 mg/dL 8.5 - 10. 1 mg/dL [facility] Chloride [Moles/Vol] 102 mmol/L 98 - 107 mmol/L [facility] CO2 [Moles/Vol] 30.4 mmol/L 21.0 - 32.0 mmol/L [facility] Creatinine [Mass/Vol] 0.99 mg/dL 0.55 - 1.02 mg/dL [facility] GFR/1.73 sq M.predicted CKD-EPI (S/P/Bld) [Vol rate/Area] >60 60 - PINF [facility] Globulin (S) [Mass/Vol] 3.6 g/dL [facility] Glucose [Mass/Vol] 110 mg/dL High 74 - 106 mg/dL [facility] Potassium [Moles/Vol] 4.0 mmol/L 3.5 - 5.1 mmol/L [facility] Protein [Mass/Vol] 7.2 g/dL 6.4 - 8.2 g/dL [facility] Sodium [Moles/Vol] 141 mmol/L 136 - 145 mmol/L [facility] TBH EGFR-NON AF MEXICAN 56 Low 60 - PINF [facility] Urea nitrogen [Mass/Vol] 31.0 mg/dL High 7.0 - 18.0 mg/dL [facility] Urea nitrogen/Creatinine [Mass ratio] 31.3 mg/mg [facility] IGP,APTIMA HPV,AGE GDLNon AGE GDLN ACOG TESTING Note . [facility] Comment on above: TESTS RESULT FLAG UN ITS REF RANGE LAB Clinician Provided Cytology Information Source.............Cervix;Endocervix No. of containers..01 ThinPrep Vial Age Algo ACOG Micheal... Note 01 <21 or >65 or no age provided FLAG LEGEND: L-Low Normal,H-High Normal,LL-Alert Low,HH-Alert High <-Panic Low,>-Panic High,A-Abnormal,AA-Critical Abnormal Performed at: 01 =G [facility] [place] [address] [facility] [address] Adelina Nunez MD, PAP IG (IMAGE GUIDED) Note . [facility] Comment on above: TESTS RESULT FLAG UN ITS REF RANGE LAB DIAGNOSIS: 02 NEGATIVE FOR INTRAEPITHELIAL LESION OR MALIGNANCY. Specimen adequacy: 02 Satisfactory for evaluation. Endocervical and/or squamous metaplastic cells (endocervical component) are present. Performed by: Monique Madsen, Post Tensioning Ironworker Helper ([facility]) . 02 Note: Note 02 The Pap smear is a screening test designed to aid in the detection of premalignant and malignant conditions of the uterine cervix. It is not a diagnostic procedure and should not be used as the sole means of detecting cervical cancer. Both false-positive and false-negative reports do occur. Test Methodology: Note 02 The [employer] was unable to read this specimen. Therefore a manual review was performed. FLAG LEGEND: L-Low Normal,H-High Normal,LL-Alert Low,HH-Alert High <-Panic Low,>-Panic High,A-Abnormal,AA-Critical Abnormal Performed at: [address] [address] Adelina Nunez MD, Performed at: =G - [facility] [address] [id number] Belt Press Operator: Adelina Nunez MD, Phone: [phone] Performed at: - [facility] [address] [id number] Belt Press Operator: Adelina Nunez MD, Phone: [phone] [facility] Panel Informationon 11-30 Interpretation and review of laboratory results Abnormal Critical access hospital Consent for Treatmenton Consent for Treatment [id number]#1.00TIFF Normal [facility] Consultation Noteon 11-20-19 24 Consultation [...] QID, # 120 tab(s), Refills(s) 3, Pharmacy: [facility], 152, cm, 04/03/23 9:20:00 EDT, Height/Length Dosing, 80, kg, 04/03/23 9:20:00 EDT, Weight Dosing Protonix 40 mg Tab-DR: 40 mg = 1 tab(s), Oral, BID, # 120 tab(s), Refills(s) 0, Pharmacy: [facility], 152.4, cm, 04/01/21 7:20:00 EDT, Height/Length Dosing, 85.5, kg, 04/01/21 7:20:00 EDT, Weight Dosing hydrochlorothiazide 12.5 mg Cap: 12.5 mg = 1 cap(s), Oral, Daily, # 30 cap(s), Refills(s) 6, Pharmacy: [facility], 152, cm, 11/17/23 11:29:00 EST, Height/Length Dosing, 79.6, kg, 11/17/23 11:29:00 EST, Weight Dosing losartan 100 mg Tab: 100 mg = 1 tab(s), Oral, Bedtime, # 90 tab(s), Refills(s) 1, Pharmacy: [facility], 152, cm, 07/14/23 9:26:00 EDT, Height/Length Dosing, 76.9, kg, 07/14/23 9:26:00 EDT, Weight Dosing pregabalin 25 mg Cap: 25 mg = 1 cap(s), Oral, BID, start with once a day for 3-5 days. If doing well can go to BID, # 60 cap(s), Refills(s) 0, Pharmacy: [facility], 152, cm, 10/26/23 13:07:00 EST, Height/Length [...] All Problems Chronic GERD / SNOMED CT 178252802 / Confirmed Unilateral primary osteoarthritis, right knee / SNOMED CT 1884675455 / Confirmed Gastritis / SNOMED CT 1685324 / Confirmed Vertigo / SNOMED CT 1737498509 / Confirmed BMI 34.0-34.9,adult / SNOMED CT 041070194 / Confirmed Regurgitation of stomach contents / SNOMED CT 524881246 / Confirmed Osteoporosis / SNOMED CT 318193505 / Confirmed HTN (hypertension) / SNOMED CT 6372216235 / Confirmed Dysphagia / SNOMED CT 38560959 / Confirmed Epigastric pain / SNOMED CT 702068288 / Confirmed Chest pain due to GERD / SNOMED CT 85211528 / Confirmed Screening for malignant neoplasm of colon / SNOMED CT 563248490 / Confirmed H/O: osteoarthritis / SNOMED CT 096691834 / Confirmed Hiatal hernia with gastroesophageal reflux / SNOMED CT 9338445904 / Confirmed Duodenogastric bile reflux / SNOMED CT 75079568 / Confirmed Sigmoid diverticulosis / SNOMED CT 6989864055 / Confirmed Tendonitis / SNOMED CT 00835041 / Confirmed Resolved: GERD - Gastro-esophageal reflux disease / SNOMED CT 2768647688 Resolved: Appendicitis / SNOMED CT 059144098 Resolved: Cough / SNOMED CT 61928502 Resolved: Sinus drainage / SNOMED CT 639377382 Canceled: GERD with apnea / SNOMED CT 8284789348 Objective Vital Signs 11/20/2023 13:11 EST Peripheral [...] extremity streng (more content not included)... Normal [facility] Comment on above: Result Comment: Elec tronically Signed By: Vicky Castillo PA-C\.br\Date and Time Signed: 11/20/23 13:40 EST Office/Clinic Note-Physician on 11-20-2023 Office/Clinic Note-Physician [id number]#1.00TIFF Normal [facility] Patient Correspondenceon Patient Correspondence [id number]#1.00TIFF [facility] Consent for Treatmenton 10-21 Consent for Treatment [id number]#1.00TIFF Normal [facility] Heart and Vascular Office/Cl inic Noteon 11-17-2023 Heart and Vascular Office/Clinic Note History of Present Illness Patient is a very pleasant 68-year-old hypertensive female, nondiabetic, non-smoker, referred to our office after she went to the emergency room on 09/02/2021 with abdominal pain radiating into her back. She reportedly had a stress test, echocardiogram and Holter monitor at [facility] prior to her ER visit on 09/02/2021. Troponins were negative x1, and she was assigned a heart score of 4 and discharged home. In addition the patient apparently had a syncopal episode several weeks prior to her presentation, but cannot recall whether she had any chest pain prior to her syncope.. Her echocardiogram done at [facility] on 08/20/2021 which showed left ventricular systolic [...] took place at an outside facility at [facility] on 09/03/2021 which was read as normal. [...] In addition she has a brother in [place] who apparently has coronary disease the specific [...] concerning lesion (more content not included)... Normal [facility] Comment on above: Result Comment: Elec tronically Signed By: MISAEL CANTRELL, Landon Mckinley\.elmo\Date and Time Signed: 11/17/23 11:44 EST Physician Orderon 11-17-2023 Physician Order [id number]#1.00TIFF Normal [facility] XR Pelvis 1 or 2 [...] mGy = na DAP = na Normal [facility] XR Spine Lumbosacral 2 or [...] mGy = na DAP = na Normal [facility] Consent for Treatmenton Consent for Treatment [id number]#1.00TIFF Normal [facility] Consent for Treatment [id number]#1.00TIFF [facility] Consultation Noteon 10-26-19 24 Consultation Note [...] QID, # 120 tab(s), Refills(s) 3, Pharmacy: [facility], 152, cm, 04/03/23 9:20:00 EDT, Height/Length Dosing, 80, kg, 04/03/23 9:20:00 EDT, Weight Dosing Protonix 40 mg Tab-DR: 40 mg = 1 tab(s), Oral, BID, # 120 tab(s), Refills(s) 0, Pharmacy: [facility], 152.4, cm, 04/01/21 7:20:00 EDT, Height/Length Dosing, 85.5, kg, 04/01/21 7:20:00 EDT, Weight Dosing losartan 100 mg Tab: 100 mg = 1 tab(s), Oral, Bedtime, # 90 tab(s), Refills(s) 1, Pharmacy: [facility], 152, cm, 07/14/23 9:26:00 EDT, Height/Length Dosing, 76.9, kg, 07/14/23 9:26:00 EDT, Weight Dosing metoprolol 50 mg ER Tab: 50 mg = 1 tab(s), Oral, Daily, # 90 tab(s), Refills(s) 1, Pharmacy: [facility], 152, cm, 07/14/23 9:26:00 EDT, Height/Length Dosing, 76.9, kg, 07/14/23 9:26:00 EDT, Weight Dosing pregabalin 25 mg Cap: 25 mg = 1 cap(s), Oral, BID, start with once a day for 3-5 days. If doing well can go to BID, # 60 cap(s), Refills(s) 0, Pharmacy: [facility], 152, cm, 10/26/23 13:07:00 EST, Height/Length Dosing, 70.5, kg, 10/26/23 13:07:00 EST, Weigh... Documented Medications Documented Aleve: Refills(s) 0 Multi Vitamin+: Oral, Daily, Refill(s) 0 alendronate 70 mg Tab: TAKE 1 TABLET BY MOUTH 30 MINUTES BEFORE first food once a week, Prophylaxis ropinirole: 0.5 mg, Oral, Refills(s) 0 Problem list: All Problems Chronic GERD / SNOMED CT 960210623 / Confirmed Unilateral primary osteoarthritis, right knee / SNOMED CT 9723956224 / Confirmed Gastritis / SNOMED CT 0339690 / Confirmed Vertigo / SNOMED CT 8412384639 / Confirmed BMI 34.0-34.9,adult / SNOMED CT 643813180 / Confirmed Regurgitation of stomach contents / SNOMED CT 601197359 / Confirmed Osteoporosis / SNOMED CT 312581219 / Confirmed HTN (hypertension) / SNOMED CT 8605602319 / Confirmed Dysphagia / SNOMED CT 82260610 / Confirmed Epigastric pain / SNOMED CT 439218366 / Confirmed Chest pain due to GERD / SNOMED CT 67864787 / Confirmed Screening for malignant neoplasm of colon / SNOMED CT 102323828 / Confirmed H/O: osteoarthritis / SNOMED CT 654682207 / Confirmed Hiatal hernia with gastroesophageal reflux / SNOMED CT 8708489522 / Confirmed Duodenogastric bile reflux / SNOMED CT 80087886 / Confirmed Sigmoid diverticulosis / SNOMED CT 1094703779 / Confirmed Tendonitis / SNOMED CT 00586715 / Confirmed Resolved: GERD - Gastro-esophageal reflux disease / SNOMED CT 1084486047 Resolved: Appendicitis / SNOMED CT 532151013 Resolved: Cough / SNOMED CT 55192558 Resolved: Sinus drainage / SNOMED CT 560924928 Canceled: GERD with apnea / SNOMED CT 7694920469 Objective Vital Signs 10/26/2023 12:48 EST Peripheral Pulse Rate 66 bpm Respiratory Rate 20 br/min Systolic Blood Pressure 143 mmHg HI Diastolic Blood Pressure 88 mmHg Mean Arterial Pressure, Cuff 106 mmHg General: Alert and oriented, No acute distress. Overweight Eye: Normal conjunctiva. HENT: Normocephalic, Normal hearing. Cardiovascular: No edema. Musculoskeletal Nor (more content not included)... Normal [facility] Comment on above: Result Comment: Elec tronically Signed By: Anna GAMEZ, Vicky\.br\Date and Time Signed: 01/08/24 13:22 EST Legal Correspondence Officeo n 10-26-2023 Legal Correspondence Office [id number]#1.00TIFF Normal [facility] Office/Clinic Note-Physician on 10-26-2023 Office/Clinic Note-Physician [id number]#1.00TIFF Normal [facility] Patient Correspondenceon Patient Correspondence [id number]#1.00TIFF Normal [facility] Patient Correspondence [id number]#1.00TIFF Normal [facility] Patient Correspondence [id number]#1.00TIFF Normal [facility] Patient Correspondence [id number]#1.00TIFF Normal [facility] Patient History Officeon Patient History Office [id number]#1.00TIFF Normal [facility] Physician Orderon 10-26-2023 Physician Order [id number]#1.00TIFF Normal [facility] Physician Order [id number]#1.00TIFF Normal [facility] Consent for Procedure/Surger yon 10-07-2023 Consent for Procedure/Surgery [id number]#1.00TIFF Normal [facility] Consent for Treatmenton 09-19 Consent for Treatment [id number]#1.00TIFF Normal [facility] Discharge Instructionson Discharge Instructions [id number]#1.00TIFF Normal [facility] IntraOperative Documentson 1 12-08-2022 IntraOperative Documents [id number]#1.00TIFF Normal [facility] Main OR Intraoperative Recor don 10-07-2023 Main OR Intraoperative Record IntraOp Document Type FTPM Summary Primary Physician: Claudio Monroe DO Finalized Date/Time: 10/07/23 09:50:14 Pt. Name: CHLOE AGARWAL/Sex: 1955 Female Med Rec #: [id number] Physician: Claudio Monroe DO Financial #: [id number] Pt. Type: P Room/Bed: / Admit/Disch: 10/07/23 08:38:44 - Institution: Case Times FTPM Entry 1 Patient Times In Room 10/07/23 09:41:00 Out Room 10/07/23 09:50:00 Procedure Times Start 10/07/23 09:44:00 Stop 10/07/23 09:49:00 Anesthesia Times Last Modified By: Bhargav DUMONT, Lashanda Mckinley 10/07/23 09:49:58 Case Attendance FTPM Entry 1 Entry 2 Entry 3 Case Attendee Claudio Monroe DO, RN, Lashanda Erickson RN, Antoinette Brito Role Performed Surgeon - Primary Director Of Marketing Communications - Primary Scrub - Primary Time In 10/07/23 09:41:00 10/07/23 09:41:00 10/07/23 09:41:00 Time Out 10/07/23 09:50:00 10/07/23 09:50:00 10/07/23 09:50:00 Procedure TRANSFORAMINAL EPIDURAL TRANSFORAMINAL EPIDURAL TRANSFORAMINAL EPIDURAL STEROID INJECTIO(Right) STEROID INJECTIO(Right) STEROID INJECTIO(Right) Comments Last Modified By: Bhargav DUMONT, Lashanda Durant RN, Lashanda Elizalde RN 10/07/23 09:49:59 10/07/23 09:49:59 10/07/23 09:49:59 Entry 4 Case Attendee Faustino Dorado Role Performed Clinical Laboratory Director Time In 10/07/23 09:41:00 Time Out 10/07/23 [...] and tissue Entry 1 Skin Integrity Intact, [place], Warm, and Skin Abnormality No Dry Outcomes [...] Press Point (more content not included)... Normal [facility] Main OR Preoperative Recordo n 10-07-2023 Main OR Preoperative Record Holding Area Document Type FTPM Summary Primary Physician: Claudio Monroe DO Finalized Date/Time: 10/07/23 09:09:26 Pt. Name: CHLOE AGARWAL/Sex: 1955 Female Med Rec #: [id number] Physician: Claudio Monroe DO Financial #: [id number] Pt. Type: P Room/Bed: / Admit/Disch: 10/07/23 [...] Signed By: Shea Aguirre RN 10/07/23 09:[address] [facility] Patient Correspondenceon Patient Correspondence [id number]#1.00TIFF [facility] Consent for Treatmenton Consent for Treatment [id number]#1.00TIFF [facility] Consultation Noteon 09-22-20 Consultation Note Patient: CHLOE [...] QID, # 120 tab(s), Refills(s) 3, Pharmacy: [facility], 152, cm, 04/03/23 9:20:00 EDT, Height/Length Dosing, 80, kg, 04/03/23 9:20:00 EDT, Weight Dosing Medrol 4 mg Tab: = 1 packet(s), Oral, As Directed, as directed on package labeling, X 6 day(s), # 21 tab(s), Refills(s) 0, Pharmacy: [facility], 152, cm, 09/22/23 11:39:00 EST, Height/Length Dosing, 70.5, kg, 09/22/23 11:39:00 EST, Weight Dosing Protonix 40 mg Tab-DR: 40 mg = 1 tab(s), Oral, BID, # 120 tab(s), Refills(s) 0, Pharmacy: [facility], 152.4, cm, 04/01/21 7:20:00 EDT, Height/Length Dosing, 85.5, kg, 04/01/21 7:20:00 EDT, Weight Dosing losartan 100 mg Tab: 100 mg = 1 tab(s), Oral, Bedtime, # 90 tab(s), Refills(s) 1, Pharmacy: [facility], 152, cm, 07/14/23 9:26:00 EDT, Height/Length Dosing, 76.9, kg, 07/14/23 9:26:00 EDT, Weight Dosing metoprolol 50 mg ER Tab: 50 mg = 1 tab(s), Oral, Daily, # 90 tab(s), Refills(s) 1, Pharmacy: [facility], 152, cm, 07/14/23 9:26:00 EDT, Height/Length Dosing, 76.9, kg, 07/14/23 9:26:00 EDT, Weight Dosing Documented Medications Documented Aleve: Refills(s) 0 Multi Vitamin+: Refill(s) 0 alendronate 70 mg Tab: TAKE 1 TABLET BY MOUTH 30 MINUTES BEFORE first food once a week, Prophylaxis ropinirole: 0.5 mg, Oral, Refills(s) 0 Problem list: All Problems BMI 34.0-34.9,adult / SNOMED CT 410365063 / Confirmed Chest pain due to GERD / SNOMED CT 95192753 / Confirmed Chronic GERD / SNOMED CT 863111715 / Confirmed Duodenogastric bile reflux / SNOMED CT 13488158 / Confirmed Dysphagia / SNOMED CT 00430304 / Confirmed Epigastric pain / SNOMED CT 970038636 / Confirmed Gastritis / SNOMED CT 0839954 / Confirmed H/O: osteoarthritis / SNOMED CT 869679174 / Confirmed Hiatal hernia with gastroesophageal reflux / SNOMED CT 4946200660 / Confirmed HTN (hypertension) / SNOMED CT 3794507703 / Confirmed Osteoporosis / SNOMED CT 088030871 / Confirmed Regurgitation of stomach contents / SNOMED CT 262156048 / Confirmed Screening for malignant neoplasm of colon / SNOMED CT 735056203 / Confirmed Sigmoid diverticulosis / SNOMED CT 1851902780 / Confirmed Tendonitis / SNOMED CT 05067165 / Confirmed Unilateral primary osteoarthritis, right knee / SNOMED CT 5714891027 / Confirmed Vertigo / SNOMED CT 3073994107 / Confirmed Objective Vital Signs 09/22/2023 11:23 [...] after she (more content not included)... Normal [facility] Comment on above: Result Comment: Elec tronically Signed By: Valeri CANTRELL, Demar Preston.br\Date and Time Signed: 09/22/23 11:54 EST Office/Clinic Note-Physician on 09-22-2023 Office/Clinic Note-Physician [id number]#1.00TIFF Normal [facility] Patient Correspondenceon Patient Correspondence [id number]#1.00TIFF Normal [facility] Patient Correspondence [id number]#1.00TIFF Normal [facility] Patient History Officeon Patient History Office [id number]#1.00TIFF Normal [facility] Physician Orderon 07-28-2023 Physician Order [id number]#1.00TIFF Normal [facility] Consenton 07-24-2023 Consent [id number]#1.00TIFF Normal [facility] Patient Eval Forms Officeon 07-24-2023 Patient Eval Forms Office [id number]#1.00TIFF Normal [facility] Patient Eval Forms Office [id number]#1.00TIFF Normal [facility] Consent for Treatmenton 10-0 Consent for Treatment [id number]#1.00TIFF Normal [facility] CHEMISTRYOrdered By: SYSTEM SYSTEM on 06-05-2023 Anion gap [Moles/Vol] 12 mmol/L Normal 6 - 16 mEq/L [facility] Remisol Calcium [Mass/Vol] 9.5 mg/dL Normal 8.9 - 11. 1 mg/dL [facility] Chloride [Moles/Vol] 107 mmol/L Normal 101 - 111 mmol/L [facility] CO2 [Moles/Vol] 26 mmol/L Normal 21 - 31 mmol/L [facility] Remisol Creatinine [Mass/Vol] 0.7 mg/dL Normal 0.5 - 1.3 mg/dL [facility] Remisol GFR/1.73 sq M.predicted among non-blacks MDRD (S/P/Bld) [Vol rate/Area] 96 mL/min/1.73 m2 Normal >=59mL/min /1.73 m2 [facility] Chem S Glucose [Mass/Vol] 100 mg/dL Normal 55 - 199 mg/dL [facility] Potassium [Moles/Vol] 3.6 mmol/L Normal 3.5 - 5.3 mmol/L [facility] Remisol Sodium [Moles/Vol] 141 mmol/L Normal 135 - 145 mmol/L [facility] Remisol Troponin I.cardiac [Mass/Vol] 8.30 pg/mL Low 10.10 - 27.10 pg/mL [facility] Remisol Urea nitrogen [Mass/Vol] 19 mg/dL Normal 5 - 21 mg/dL [facility] Remisol Urea nitrogen/Creatinine [Mass ratio] 27 mg/mg High 10 - 20 [facility] Remisol CHEMISTRYOrdered By: Lab ROP User on 06-05-2023 Glucose [Mass/Vol] 109 mg/dL High 55 - 99 mg/dL [facility] POC Subsection Comment on above: Result Comment: Kacey wiley Meter POC Device SN [id number] Invalid Interpretation Code [facility] POC Subsection POC User ID [id number] Invalid Interpretation Code [facility] POC Subsection POC Username SHARITA VARGAS Invalid Interpretation Code [facility] POC Subsection HEMATOLOGYOrdered By: SYSTEM SYSTEM on 06-05-2023 Basophils/100 WBC (Bld) 0.8 % Normal 0.0 - 2.0 % [facility]eAutoSS Basophils/Leukocyte s Auto (Bld) [Pure # fraction] 0.1 E9/L Normal 0.0 - 0.2 E9/L [facility] Eosinophils/100 WBC (Bld) 3.4 % Normal 0.0 - 8.0 % [facility] Eosinophils/Leukocy micheal Auto (Bld) [Pure # fraction] 0.3 E9/L Normal 0.0 - 0.5 E9/L [facility] Lymphocytes/100 WBC (Bld) 20.2 % Normal 14.0 - 50.0 % [facility] Lymphocytes/Leukocy micheal Auto (Bld) [Pure # fraction] 1.5 E9/L Normal 1.0 - 4.0 E9/L [facility] Monocytes/100 WBC (Bld) 7.8 % Normal 4.0 - 14.0 % [facility]eAuto[facility] Monocytes/Leukocyte s Auto (Bld) [Pure # fraction] 0.6 E9/L Normal 0.2 - 1.0 E9/L [facility] Neutrophils/100 WBC (Bld) 67.8 % Normal 36.0 - 75.0 % [facility] Neutrophils/Leukocy micheal Auto (Bld) [Pure # fraction] 5.1 E9/L Normal 2.0 - 7.5 E9/L [facility] HEMATOLOGYOrdered By: Jesus Rosado on 06-05-2023 Erythrocyte distribution width (RBC) [Ratio] 13.2 % Normal 10.9 - 14.2 % [facility] Hematocrit (Bld) [Volume fraction] 39.7 % Normal 34.0 - 46.0 % [facility] Hemoglobin (Bld) [Mass/Vol] 13.6 g/dL Normal 12.0 - 16.0 gm/dL [facility] MCH (RBC) [Entitic mass] 29.9 pg Normal 27.0 - 34.0 pg [facility] MCHC (RBC) [Mass/Vol] 34.2 g/dL Normal 31.4 - 36.0 gm/dL [facility] MCV (RBC) [Entitic vol] 87.5 fL Normal 80.0 - 100.0 fL [facility] Platelet mean volume (Bld) [Entitic vol] 8.2 fL Normal 6.4 - 10.8 fL [facility] Platelets (Bld) [#/Vol] 239.0 E9/L Normal 150.0 - 500.0 E9/L [facility] RBC (Bld) [#/Vol] 4.5 E12/L Normal 4.3 - 5.9 E12/L [facility] WBC corrected for nucl RBC Auto (Bld) [#/Vol] 7.5 E9/L Normal 4.0 - 11.0 E9/L [facility] HemeAutoSS CREATININEon 03-03-2023 Creatinine [Mass/Vol] 0.89 mg/dL Normal 0.55-1.02 [facility] Comment on above: Performed By: #### C LING #### [facility] [address] [place] [address] Dr. Lorraine Scott EGFR-AF MEXICAN >60 Normal >=60 [facility] Comment on above: Performed By: #### C LING #### [facility] [address] [place] [address] Dr. Lorraine Scott EGFR-NON AF MEXICAN >60 Normal >=60 [facility] Comment on above: Performed By: #### C LING #### [facility] [address] [place] [address] ABD/PELV W CONon [...] RYAN VAZQUEZ Date: 2023-03-03 10:08 Normal [facility] US SINGLE QUAD RT UPPERon US [...] RYAN VAZQUEZ Date: 2023-02-09 11:57 Normal [facility] Covid-19 PCR (CVDTBH)on 10-19 SARS-CoV-2 (COVID-19) RNA SHAHEEN+probe Ql (Unsp spec) Detected Abnormal NOT DETECTED [facility] Comment on above: Result Comment: This test is not yet approved or cleared by the [place] FDA. When there are no FDA-approved or cleared tests available, and other criteria are met, FDA can make tests available under an emergency access mechanism called an Emergency Use Authorization (EUA). The EUA for this test is supported by the [place] of Health and Human Service's declaration that [...] used). Performed By: #### C VDTB #### [facility] [address] [place] [address] Dr. Lorraine Scott INFLUENZA A AND B AGon 11-05 [facility] SEE BELOW Normal [facility] Comment on above: Result Comment: Nega tive for Flu A protein angiten. Infection due to Flu A cannot be ruled out. Flu A angiten in the sample may be below the detection limit of the test. Performed By: #### I NFLUAB #### [facility] [address] [place] [address] Dr. Lorraine [facility] Normal [facility] Comment on above: Result Comment: Nega tive for Flu B protein antigen. Infection due to Flu B cannot be ruled out. Flu B antigen in the sample may be below the detection limit of the test. Performed By: #### I NFLUAB #### [facility] [address] [place] [address] Dr. Lorraine Scott INFLUENZA A AG Negative Normal NEGATIVE SEE COMMENT [facility] Comment on above: Performed By: #### I NFLUAB #### [facility] [address] [place] [address] Dr. Lorraine Scott INFLUENZA B AG Negative Normal NEGATIVE SEE COMMENT [facility] Comment on above: Performed By: #### I NFLUAB #### [facility] [address] [place] [address] Dr. Lorraine Scott MG MAMM SCREEN 3D LAURA CADon 10-22-2022 MG MAMM SCREEN 3D LAURA CAD Patient: CHLOE AGARWAL Exam Date: 10/22/2022 : 1955 Gender:F Ordering : DR JUAN CARLOS GIFFORD . Admission #: [id number] Family : Order #: [id number] CLICK HERE TO VIEW EXAM RADIOLOGY REPORT [...] Treatments None Family Cancers None LOCATION: [facility] BREAST COMPOSITION: Scattered areas fibroglandular density. [...] Vazquez M.D. on 10/23/2022 at 08:41 Normal [facility] XR DEXA BONE DENSITYon 10-22 XR DEXA BONE DENSITY EXAMINATION: XR DEXA BONE DENSITY, 10/22/2022 8:05 AM EST HISTORY: [...] by: RYAN VAZQUEZ Date: 2022-10-22 09:12 Normal [facility] PAP ACOG PANEL 2: 30 to 65on 10-03-2022 . . Normal [facility] Comment on above: Result Comment: Perf ormed at: WB Performed By: #### 4 [id number] #### [facility] [address] [address] [address] Lorraine Scott Age Gdln ACOG Testing 30-65 Normal [facility] Comment on above: Performed By: #### 4 [id number] #### [facility] [address] [place] [address] Dr. Lorraine Scott DIAGNOSIS: Comment Normal [facility] Comment on above: Result Comment: NEGA TIVE FOR INTRAEPITHELIAL LESION OR MALIGNANCY. CELLULAR CHANGES ASSOCIATED WITH ATROPHY ARE PRESENT. Performed at: WB Performed By: #### 4 [id number] #### [facility] [address] [place] [address] Dr. Lorraine Scott HPV Aptima Negative Normal Negative [facility] Comment on above: Result Comment: This nucleic acid amplification test detects fourteen high-risk HPV types (16,18,31,33,35,39,45,51,52,56,58,59,66,68) without differentiation. Performed at: =G Performed By: #### 4 [id number] #### [facility] [address] [place] [address] Dr. Lorraine Scott HPV Genotype Reflex Comment Normal [facility] Comment on above: Result Comment: Crit eria not met, HPV Genotype not performed. Performed at: WB Performed By: #### 4 [id number] #### [facility] [address] [place] [address] Dr. Lorraine Scott Methodology: Comment Normal [facility] Comment on above: Result Comment: This liquid based ThinPrep(R) pap test was screened with the use of an image guided system. Performed at: WB Performed By: #### 4 [id number] #### [facility] [address] [place] [address] Dr. Lorraine Scott Note: Comment Normal [facility] Comment on above: Result Comment: The Pap smear is a screening test designed to aid in the detection of premalignant and malignant conditions of the uterine cervix. It is not a diagnostic procedure and should not be used as the sole means of detecting cervical cancer. Both false-positive and false-negative reports do occur. . Performed at: WB Performed By: #### 4 [id number] #### [facility] [address] [place] [address] Dr. Lorraine Scott Performed by: Comment Normal [facility] Comment on above: Result Comment: Kong Juarez, Post Tensioning Ironworker Helper (ASCP) Performed at: WB Performed By: #### 4 [id number] #### [facility] [address] [place] [address] Dr. Lorraine Scott Specimen adequacy: Comment [facility] Comment on above: Result Comment: Sati sfactory for evaluation. Endocervical component may not be distinguished in cases of atrophy. Performed at: WB Performed By: #### 4 [id number] #### [facility] [address] [place] [address] Dr. Lorraine Scott CHEMISTRYOrdered By: SYSTEM SYSTEM on 04-29-2022 Anion gap [Moles/Vol] 13 mmol/L Normal 6 - 16 mEq/L [facility] Calcium [Mass/Vol] 10.0 mg/dL Normal 8.9 - 11. 1 mg/dL [facility] Chloride [Moles/Vol] 103 mmol/L Normal 101 - 111 mmol/L [facility] Remisol CO2 [Moles/Vol] 27 mmol/L Normal 21 - 31 mmol/L [facility] Creatinine [Mass/Vol] 1.0 mg/dL Normal 0.5 - 1.3 mg/dL [facility] Remisol GFR/1.73 sq M.predicted among blacks MDRD (S/P/Bld) [Vol rate/Area] mL/min/1.73 m2 Normal >=59mL/min /1.73 m2 [facility] Chem S GFR/1.73 sq M.predicted among non-blacks MDRD (S/P/Bld) [Vol rate/Area] 56 mL/min/1.73 m2 Low >=59mL/min /1.73 m2 [facility] Chem S Glucose [Mass/Vol] 104 mg/dL Normal 55 - 199 mg/dL [facility] Remisol Potassium [Moles/Vol] 4.6 mmol/L Normal 3.5 - 5.3 mmol/L [facility] Remisol Sodium [Moles/Vol] 138 mmol/L Normal 135 - 145 mmol/L [facility] Remisol Urea nitrogen [Mass/Vol] 20 mg/dL Normal 5 - 21 mg/dL [facility] Remisol Urea nitrogen/Creatinine [Mass ratio] 20 mg/mg Normal 10 - 20 [facility] Remisol US breast LT limitedon 06-26 US breast LT limited [facility] [place] [address] [place] [address] Mammography Report Signed Patient: Chloe Agarwal MR#: [id number] : 1955 Acct:[id number] Age/Sex: 65 / F ADM Date: 06/26/21 Loc: [place] Room: Type: [facility] Attending Dr: Juan Carlos Gifford MD Ordering Provider: Juan Carlos Gifford MD Date of Service: 06/26/21 MM/MM diagnostic mammo BI w/CAD: BREAST PAIN ([id number]) US/US breast LT limited: BREAST PAIN Copies [...] Pena M.D.06/26/2021 11:36 AM Dictation Location: [facility] Transcribed By: [facility] 06/26/21 1136 Dictated By: Cira Pena MD 06/26/21 0804 Signed By: 06/26/[address] [facility] Intraoperative Noteon 2017 Intraoperative Note [id number]#1.00OTGTIFF [facility] Coding Summaryon 12-14-2017 Coding Summary CODING DATE: 018 [facility] STATUS: Home PAYOR: Commercial Insurance APC DESCRIPTION 5361 Level 1 Laparoscopy and Related Services ADMIT DX: REASON FOR VISIT DX: K35.80 Unspecified acute appendicitis FINAL DX: PRINCIPAL: K35.80 Unspecified acute appendicitis SECONDARY: K21.9 Gastro-esophageal reflux disease without esophagitis PYMT PROC APC STAT DESCRIPTION DOCTOR NAME DATE 83568 5361 J1 Laparoscopy, surgical, Adryan Yoon MD appendectomy NOTE: The code number assigned matches the documented diagnosis and / or procedure in the patient's chart. However, the narrative phrase printed from the coding software may appear abbreviated, or result in slightly different terminology. Coded By: Tenisha Smith Date Saved: 12/14/2017 09:53 am [facility] Lab - Other Lab Resultson Lab - Other Lab Results [id number]#1.00OTGTIFF [facility] Operative Report - Surgeon/P avery 12-09-2017 Operative Report - Surgeon/Physician This is the second dictation on this operative reportDATE OF PROCEDURE: 12/04/17URGEON: Adryan Yoon MDANESTHESIA: General.PREOPERATIVE DIAGNOSIS: Acute appendicitis.POSTOPERATIVE DIAGNOSIS: Acute appendicitis.PROCEDURE: Laparoscopic appendectomy.IV FLUIDS: Crystalloid [...] appendix was inflamed.It was grasped with a [place] clamp. A defect in the mesoappendix wascreated [...] were cleaned with normal saline and dried. Domingas placed on both sides of the incisions and 1/2 inch Steri-Strips wereplaced along with dry sterile dressings. The patient was extubated in theoperating room and taken to the PACU in fair condition. All instruments andsponge counts were correct at the end of the case. The patient tolerated theprocedure without any difficulties.Adryan Yoon M.D.JOB #: [id number]: 12/09/2017T: 12/09/2017[Electronically Signed on: 12/15/2017 10:32 EST] Adryan Yoon MD[Verified on: 12/15/2017 10:32 EST] Adryan Yoon MD[Transcribed on: 12/09/2017 09:14 EST]U [facility] Outside Recordson 12-09-2017 Outside Records [id number]#1.00OTGTIFF [facility] Outside Records [id number]#1.00OTGTIFF [facility] MAGR Postoperative Recordon 12-08-2017 MAGR Postoperative Record MAGR Phase II Record Summary Primary Physician: Adryan Yoon MD Finalized Date/Time: 12/08/17 13:12:55 Pt. Name: CHLOE AGARWAL/Sex: 1955 FEMALE Med Rec #: [id number] Physician: Adryan Yoon MD Financial #: [id number] Pt. Type: D Room/Bed: [facility] Admit/Disch: 12/04/17 03:05:00 - 12/05/17 12:30:00 Institution: [...] discharge instructions. General Comments: care per 2 [facility] nursing personnel Finalized By: Chloe Turcios RN Document Signatures Signed By: Chloe Turcios RN 12/08/17 13:12 [facility] Operative Report - Surgeon/P avery 12-08-2017 Operative Report - Surgeon/Physician [id number]#[address] [address] Pathology Sendout Teston Pathology Send Out. See Report [facility] Comment on above: Order Comment: JANET COWART Performed By: #### 2 [id number] ####[facility] (DEFAULT)[address] [place] [address] Provider Orderson 12-08-2017 Provider Orders [id number]#[address] [place] [place] [address] Consent Formson 12-07-2017 Consent Forms [id number]#[address] [place] [address] Intraoperative Noteon 2017 Intraoperative Note [id number]#[address] [place] [place] [address] Medication Managementon 11-19 Medication Management [id number]#[address] Telemetry Stripson 8 Telemetry Strips [id number]#[address] [place] [address] Hospital Discharge Summaryon 12-06-19 18 Discharge Summary DISCHARGE DIAGNOSIS: Acute appendicitis.DISCHARGE CONDITION: Good.HOSPITAL COURSE: The patient is a 62-year-old woman who presented [facility] emergency department. She was found to have a slightlyelevated white blood cell count. A CT scan was consistent with acuteappendicitis. The patient wanted to be transferred to [facility] andas a result, she underwent a laparoscopic appendectomy. Postoperatively sheis doing well. Her white blood cell count decreased to the normal range. Sheis tolerating a regular diet. Her pain is controlled and she is ambulatingwithout difficulty. As a result, she will be discharged home. She willfollow-up with me in two weeks.Adryan Yoon M.D.JOB #: [id number]: 12/05/2017T: 12/06/2017[Electronically Signed on: 12/09/2017 07:13 EST] Adryan Yoon MD[Verified on: 12/09/2017 07:13 EST] Adryan Yoon MD[Transcribed on: 12/06/2017 08:45 EST][facility] .Auto Diff 1on 12-05-2017 Auto Baso % 0.1 % Low 0.2-2.0 [facility] Comment on above: Performed By: #### 7 [id number], [id number] ####[facility] (DEFAULT)[address] [place] [address] Auto [place] % 8 % Normal 1-12 [facility] Comment on above: Performed By: #### 7 [id number], [id number] ####[facility] (DEFAULT)[address] [place] [address] 399[address] Auto Neut % 86 % Normal 44-88 [facility] Comment on above: Performed By: #### 7 [id number], [id number] ####[facility] (DEFAULT)[address] [place] [address] Baso Abs# 0.0 x10 Normal 0.0-0.2 [facility] Comment on above: Performed By: #### 7 [id number], [id number] ####[facility] (DEFAULT)[address] [place] [address] Eos Abs# 0.0 x10 Normal 0.0-0.4 [facility] Comment on above: Performed By: #### 7 [id number], [id number] ####[facility] (DEFAULT)[address] [place] [address] Eosinophils/100 leukocytes 0.0 % Low 0.9-4.0 [facility] Comment on above: Performed By: #### 7 963674, [id number] ####[facility] (DEFAULT)[address] [place] [address] Lymphocytes 0.6 x10 Low 1.3-2.9 [facility] Comment on above: Performed By: #### 7 [id number], [id number] ####[facility] (DEFAULT)[address] [place] [address] Lymphocytes/100 leukocytes 6 % Low 14-48 [facility] Comment on above: Performed By: #### 7 996931, [id number] ####[facility] (DEFAULT)[address] [place] [address] Screven Abs# 0.9 x10 High 0.0-0.8 [facility] Comment on above: Performed By: #### 7 [id number], [id number] ####[facility] (DEFAULT)[address] [place] [address] Neut Abs# 9.9 x10 High 1.5-9.2 [facility] Comment on above: Performed By: #### 7 [id number], [id number] ####[facility] (DEFAULT)[address] [place] [address] CBC w/ Auto Diffon 8 Erythrocyte distribution width Auto Ratio (RBC) 13.6 % Normal 11.5-15.0 [facility] Comment on above: Performed By: #### 7 [id number], [id number] ####[facility] (DEFAULT)[address] [place] [address] Erythrocytes (RBC) 3.75 x10 Normal 3.70-5.30 [facility] Comment on above: Performed By: #### 7 [id number], [id number] ####[facility] (DEFAULT)[address] [place] [address] Hematocrit (HCT) 34.4 % Normal 33.7-40.4 [facility] Comment on above: Performed By: #### 7 066351, [id number] ####[facility] (DEFAULT)[address] [place] [address] Hemoglobin mass conc (Bld) 11.0 g/dL Low 11.3-15.9 [facility] Comment on above: Performed By: #### 7 [id number], [id number] ####[facility] (DEFAULT)[address] [place] [address] Man Diff? Auto Normal [facility] Comment on above: Performed By: #### 7 807879, [id number] ####[facility] (DEFAULT)[address] [place] [address] MCH 29 pg Normal 24-34 [facility] Comment on above: Performed By: #### 7 [id number], [id number] ####[facility] (DEFAULT)[address] [place] [address] MCHC mass conc (RBC) 32 g/dL Normal 26-37 [facility] Comment on above: Performed By: #### 7 214212, [id number] ####[facility] (DEFAULT)[address] [place] [address] MCV 92 fL Normal 81-100 [facility] Comment on above: Performed By: #### 7 845138, [id number] ####[facility] (DEFAULT)[address] [place] [address] Platelet mean volume (PMV) 11.7 fL High 6.3-10.2 [facility] Comment on above: Performed By: #### 7 [id number], [id number] ####[facility] (DEFAULT)[address] [place] [address] Platelets 204 x10 Normal 138-427 [facility] Comment on above: Performed By: #### 7 874092, [id number] ####[facility] (DEFAULT)[address] [place] [address] WBC (Leukocytes) 11.4 x10 High 3.5-10.5 [facility] Comment on above: Performed By: #### [id number] ####[facility] (DEFAULT)[address] [place] [address] Education Noteon 12-05-2017 Education Note Education MaterialsGastroenterologyAppen dicitisThe appendix is a finger-shaped tube that is [...] Reviewed: 02/20/2016Floydevviktor Interactive Patient Education ? [address] [facility] Inpatient Clinical Summaryon 12-05-2017 Inpatient Clinical Summary [facility] 2SOUTHClinical Discharge SummaryPERSON INFORMATIONName CHLOE AGARWAL Age 62 Years 59Sex FEMALE Language Tajik PCP Agus MCGHEE Status [facility] [id number] Acct# Arrival 12/04/17 03:05:00Visit Reason APPENDICITIS Acuity LOS 000 34:38Address:[address] [facility] [id number]:PROVIDER INFORMATIONVITALS INFORMATIONVital Sign Triage LatestTemp Oral 36.8 DegC 36.4 DegCTemp TemporalTemp IntravascularTemp AxillaryTemp Ipkgvx34 Sat 99 % 99 %Respiratory Rate 16 br/min 18 br/minPeripheral Pulse Rate 79 bpm 60 bpmApical Heart Rate 76 bpm 60 bpmBlood Pressure 138 mmHg / 86 mmHg 97 mmHg / 59 mmHgComment:MEDICAL INFORMATIONAllergy Info:Allergies sulfonamidePrescriptions Given:Home Meds Displayacetaminophen-hydrocodo ne ([place] 7.5 mg-325 mg oral tablet) 1 tab(s), [...] Every 4 hours as needed for for painacetaminophen-hydrocodone ([place] 7.5 mg-325 mg oral tablet) 1 tab(s) [...] range between ( 1.3 and 2.9 ) Screven Abs#: 0.9 x103/mcL -- Normal range between ( 0.0 and 0.8 ) Auto Baso %: 0.1 % -- Normal range between ( 0.2 and 2.0 ) Auto Screven %: 8 % -- Normal range between [...] HomeDischarge Location: HomeDEPART REASON INCOMPLETE INFORMATIONPATIENT EDUCATION INFORMATIONInstructions:Append icitisFollow up:With: Address: When:Adryan Yoon MD [address] [place] [address] Business (1)DIAGNOSIS1:Acute appendicitisPROBLEMSProblems Active Arthritis Heart murmur HeartburnComment:PHYS DOC NOTES Normal [facility] Inpatient Patient Summaryon 12-05-2017 Inpatient Patient Summary [place] [id number] patient Discharge InstructionsName: CHLOE AGARWALB: 59 Address: [address] [address]Primary Care Provider:Name: YARELIS MCGHEEPhone: After you are discharged if you find you have any questions, please, call [phone] ext [phone] to speak to a nurse.Discharge Diagnosis: 1:Acute [...] or business decisions or sign any legal documentsSt. [facility] Hospital would like to thank you for allowing us to assist you with your healthcare needs. The following includes patient education materials and information regarding your injury/illness.CHLOE AGARWAL has been given the following list of follow-up instructions, prescriptions, and patient education materials:Follow-up InstructionsWith: Address: When:Adryan Yoon MD [address] [place] [address], [place] [address] Business (1)MedicationsDuring the course of your visit, your medication list was updated with the most current information. The details of those changes are reflected below:Medications to Continue That Have Not ChangedOther Medicationsacetaminophen-hydro codone ([place] 7.5 mg-325 mg oral tablet) 1 tab(s) [...] medications list that you can keep with you.acetaminophen-hydrocodone ([place] 7.5 mg-325 mg oral tablet) 1 tab(s) [...] Reviewed: 02/20/2016Padilla Interactive Patient Education ? 2017 uParts.Viruses or BacteriaWhat?s got you sick?Antibiotics only treat [...] NOUrinary Tract Infection YesAntibiotics Aren?t Always the Answerwww.cdc.gov/getsmart GETSMARTKnow When Antibiotics [place]. Department of Health and Human ServicesCenters for Disease Control and Prevention June 2014 [facility] Progress Note - Nurseon 11-19 Pulse (Heart [...] calm.[Electronically Signed on: 12/05/2017 09:52 EST] Sim Chamorro RN[Verified on: 12/05/2017 09:52 EST] Sim Chamorro RN [facility] Progress Note - Nurse Pt walking the hallway with RN, 200 ft, standby assist. Pt is steady. No c/o SOB or dizziness. Bilateral upper and lower abdominal pain 3/10, prn norco administered as ordered. Will continue to monitor, call light in reach.[Electronically Signed on: 12/05/2017 05:50 EST] Serina Cross[Verified on: 12/05/2017 05:50 EST] Serina Cross [facility] Progress Note - Nurse Pt is a/o [...] Cross[Verified on: 12/04/2017 23:39 EST] Serina Cross [facility] Anesthesia Noteon 12-04-2017 Anesthesia Note Patient: CHLOE AGARWAL : 62 years Sex: FEMALE : 59Associated Diagnoses: NoneAuthor: Fernie Sandoval DOPostoperative InformationPost Operative Note: Post Anesthesia Care Unit.Review / ManagementCondition: Stable.AssessmentAnesthetic outcomeNo anesthetic complications noted.PlanTransfer/ Discharge: Patient can be discharged from PACU when criteria met.Condition good.[Electronically Signed on: 12/04/2017 15:01 EST] LoriFernie DO[Verified on: 12/04/2017 15:01 EST] Fernie Sandoval DO [facility] Anesthesia Note Patient: CHLOE AGARWAL : 62 years Sex: FEMALE : 59Associated Diagnoses: NoneAuthor: Fernie Sandoval DOPreoperative InformationAnesthesia history: Patient history: Nausea and vomiting with anesthesia, No difficult intubation, No malignant hyperthermia. Family history: No malignant hyperthermia, No prior anesthesia problems.Review of SystemsConstitutionalEyeEar/No se/Mouth/ThroatRespiratory: No shortness of breath, No cough.Cardiovascular: No chest pain.Gastrointestinal: Heartburn.Neurologic: Alert and oriented X4.Health StatusAllergies:Allergic Reactions (All)Severity Not DocumentedSulfonamide- No reactions were documented.Current medications:Home Medications (3) ActiveColace 100 mg oral capsule 100 mg = 1 cap(s), PRN, PO, Dailyibuprofen 200 mg oral capsule 400 mg = 2 cap(s), PRN, PO, q0tfSwqJPD 20 mg oral delayed release capsule 20 mg = 1 cap(s), PO, DailyProblem list (past medical history):All ProblemsAlteration in comfort: pain / SNOMED CT 58874992 / ConfirmedArthritis / SNOMED CT 4988987 / ConfirmedHeart murmur / SNOMED CT 860971151 / ConfirmedHeartburn / SNOMED CT 99700010 / ConfirmedResolved: Kidney stones / SNOMED CT 254065727Lqhavrzw: History of renal stent / SNOMED CT 4248927128Jfngxmrd: Acute appendicitis / SNOMED CT 827127860QhwuqeuqcIhliyv History:DementiaFatherLiver massSisterCHF (congestive heart failure)MotherFatherProcedure history:History of right total knee replacement (864444733807471).History of left total knee replacement (951974062148723).Tonsillectom y (636757998).Removal of ureteral stent (914282109).History of ureteral stent placement (6965239799).Social History Alcohol Assessment Use: Never. Tobacco Assessment Never (less than 100 in lifetime) Tobacco Use:. Substance Abuse Assessment Substance use: Never. 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 Home/Environment Assessment Lives with Children, Spouse. Living situation: Home/Independent. Nutrition/Health Assessment Regular, Caffeine intake amount: Hot tea in the morning..Social & Psychosocial UqyikkCiovrap13/16/2018 Alcohol Use: NeverEmployment/Okqciv46/16/20 18 Status: Self employed Description: Office workHome/Kfxbccerzmj45/16/2018 Lives with: Children, Spouse Living situation: Home/IndependentNutrition/Heal th12/04/2017 Type of diet: Regular Caffeine intake amount: Hot tea in the morningSubstance Abuse12/04/2017 Substance use: YzrbmQtjixrr68/16/2018 Smoking tobacco use: Never (less than 100 in l.Physical ExaminationVS/MeasurementsMeas urements from flowsheet : Oicnmlgbhlmt22/16/18 03:09 EST Height 152.400 cm Height/Length Dosing [...] Temporomandibular joint mobility: Good. Mouth: Teeth ( [place] ). Neck: Non-tender, Full range of motion.Respiratory: Lungs are clear to auscultation.Cardiovascular: Normal rate, Regular rhythm.Neurologic: Alert, Oriented.Review / ManagementLaboratory ResultsPlanAmerican Society of Anesthesiologists#(ASA) physical status classification: Class II.Anesthetic Preoperative PlanAnesthesia: General.. Anesthetic plan, risks, benefits, and alternatives discussed with the patient and/or family. Risks discussed: nausea, vomiting, sore throat, serious complications. Patient verbalized understanding. Family/Guardian present. Informed consent was given. Consent was signed by the patient.[Electronically Signed on: 12/04/2017 08:38 EST] Fernie Sandoval DO[Verified on: 12/04/2017 08:38 EST] Fernie Sandoval DO [facility] History and Physicalon 12-04 History and Physical DATE OF ADMISSION: 12/04/17 MEDICAL HISTORYCHIEF COMPLAINT: Right lower quadrant abdominal pain.HISTORY OF PRESENT ILLNESS: The patient is a 62-year-old woman withabdominal pain. She presented to the emergency department at [facility]. A CT scan of the abdomen and pelvis was obtained which wasconsistent with acute appendicitis. Due to personal reasons, she did notwant the surgery performed at [facility] and as a result, shewanted to be transferred to [facility]. The patientwas told that her surgery would be later this morning and she was okay withthat.FAMILY HISTORY: Noncontributory.SOCIAL HISTORY: Noncontributory.PAST MEDICAL HISTORY: Gastroesophageal reflux disease.REVIEW OF SYSTEMS:CONSTITUTIONAL: She denies any fevers or chills.SKIN: Denies rashes or jaundice.HEENT: She denies blurring, double vision, loss of vision, ear pain, eardischarge, abnormal nasal discharge, sore throats or hoarseness.CARDIOVASCULAR: She denies chest, irregular heartbeat or palpitations.RESPIRATORY: [...] 30.66.GENERAL: A well-developed, well-nourished woman who appears comfortablecurrently.SKIN: No rashes or jaundice.HEENT: Normocephalic and atraumatic. PERRLA. EOMs are intact. No otorrheaor rhinorrhea. Throat without exudates. The mucus membranes are moist.NECK: Supple. No lymphadenopathy and no JVD. The thyroid is not enlarged.CARDIOVASCULAR: Regular rate and rhythm without murmurs, rubs or gallops.LUNGS: Clear to auscultation bilaterally. No wheezing, rhonchi or crackles.ABDOMEN: Soft and nondistended. Positive right lower quadrant tenderness.No rebound or guarding. No hepatosplenomegaly.EXTREMITIES : Warm. No clubbing, cyanosis or edema.NEUROLOGICAL: Cranial [...] to undergo the procedure.Adryan Yoon M.D.JOB #: [id number]: 12/04/2017T: 12/04/2017[Electronically Signed on: 12/04/2017 07:16 EST] Adryan Yoon MD[Verified on: 12/04/2017 07:16 EST] Adryan Yoon MD[Transcribed on: 12/04/2017 06:52 EST][facility] MAGR Intraoperative Recordon 12-04-2017 MAGR Intraoperative Record MAGR Intra-Op Record Summary Primary Physician: Adryan Yoon MD Finalized Date/Time: 12/04/17 15:26:26 Pt. Name: CHLOE AGARWAL /Sex: 1955 FEMALE Med Rec #: [id number] Physician: Adryan Yoon MD Financial #: [id number] Pt. Type: D Room/Bed: [facility]/ Admit/Disch: 12/04/17 03:05:00 - Institution: Case Times [...] Role Performed Surgeon - Primary Anesthesiologist of Director Of Marketing Communications Record Time In 12/04/17 09:44:00 12/04/17 09:44:00 12/04/17 09:44:00 Time Out 12/04/17 10:42:00 12/04/17 10:42:00 12/04/17 10:42:00 Procedure Appendectomy Appendectomy Appendectomy Laparoscopic Laparoscopic Laparoscopic Last Modified By: Olidna Mora Cynthia M Cartier, Cynthia M 12/04/17 10:56:16 12/04/17 10:56:16 12/04/17 10:56:16 Entry 4 Entry 5 Entry 6 Case Attendee Valeri Li-Fanta RN CONCURRENT REVIEW BOARD CSFA/RN CONCURRENT REVIEW, Antonia Bah RN Role Performed Bankruptcy Attorney Scrub Personnel Director Of Marketing Communications Time In 12/04/17 09:44:00 12/04/17 09:44:00 12/04/17 [...] Outcome Met (O.100) Yes Last Modified By: Olinad Mora 12/04/17 10:36:25 Post-Care Text: E.10 Evaluates [...] Final Counts Olinda Mora, Performed By BOARD DARION/YESENIA GARCIA Surgeon notified of Yes final counts [...] Signed By: Antonia Pérez RN 12/04/17 [facility] PACU Record MAGR PACU Record [facility] Primary Physician: Adryan Yoon MD Finalized Date/Time: 12/04/17 11:35:32 Pt. Name: CHLOE AGARWAL/Sex: 1955 FEMALE Med Rec #: [id number] Physician: Adryan Yoon MD Financial #: [id number] Pt. Type: D Room/Bed: 229/1 Admit/Disch: 12/04/17 03:05:00 - Institution: PACU Case Times MAGR Entry 1 In PACU I 12/04/17 10:44:00 Discharge from PACU 12/04/17 11:25:00 I Last Modified By: Vernell Gunderson RN 12/04/17 11:35:30 Finalized By: Vernell Gunderson RN Document Signatures Signed By: Vernell Gunderson RN 12/04/17 11:35 [facility] Progress Note - Nurseon - Progress Note - Nurse Patient admitted to room 229. Was brought to room by [...] on: 12/04/2017 04:41 EST] Liliane Rivero RN [facility] Vital Signs Date Time Vital Sign Value Performing Clinician Davian swan 08-19-2024 13:49-0400 Heart rate 68 /min [facility] 08-19-2024 13:49-0400 SaO2% (BldA) [Mass fraction] 98 % [facility] 08-19-2024 13:49-0400 Blood Pressure Location [facility] 08-19-2024 13:49-0400 Diastolic blood pressure 77 mm[Hg] [facility] 08-19-2024 13:49-0400 Mean blood pressure 97 mm[Hg] [facility] 08-19-2024 13:49-0400 Systolic blood pressure 136 mm[Hg] [facility] 08-19-2024 13:48-0400 Respiratory rate 18 /min [facility] 08-19-2024 12:16-0400 Heart rate 52 /min [facility] 08-19-2024 12:16-0400 SaO2% (BldA) [Mass fraction] 100 % [facility] 08-19-2024 12:16-0400 Blood Pressure Location [facility] 08-19-2024 12:16-0400 Diastolic blood pressure 63 mm[Hg] [facility] 08-19-2024 12:16-0400 Mean blood pressure 81 mm[Hg] [facility] 08-19-2024 12:16-0400 Systolic blood pressure 117 mm[Hg] [facility] 08-19-2024 12:15-0400 Respiratory rate 18 /min [facility] 08-19-2024 09:55-0400 Heart rate 50 /min [facility] 08-19-2024 09:55-0400 SaO2% (BldA) [Mass fraction] 98 % [facility] 08-19-2024 09:55-0400 Diastolic blood pressure 68 mm[Hg] [facility] 08-19-2024 09:55-0400 Mean blood pressure 81 mm[Hg] [facility] 08-19-2024 09:55-0400 Systolic blood pressure 106 mm[Hg] [facility] 08-19-2024 09:54-0400 Respiratory rate 18 /min [facility] 08-19-2024 08:04-0400 Body temperature 97.52 [degF] [facility] 08-19-2024 08:03-0400 Blood Pressure Location [facility] 08-11-2024 10:49-0400 Body height 152.4 cm Sydnie Villalobos DPM Work Phone: [facility] 08-11-2024 10:49-0400 Body mass index (BMI) [Ratio] 30.86 kg/m2 Sydnie Villalobos DPM Work Phone: [facility] 08-11-2024 10:49-0400 Body weight 71.67 kg Sydnie Villalobos DPM Work Phone: [facility] 07-13-2024 15:01-0400 Blood Pressure Location Willie Kaur [facility] 07-13-2024 15:01-0400 Diastolic blood pressure 82 mm[Hg] Willie [facility]aur [facility] 07-13-2024 15:01-0400 Heart rate 68 /min Willie Kaur [facility] 07-13-2024 15:01-0400 Respiratory rate 18 /min Willie Kaur [facility] 07-13-2024 15:01-0400 SaO2% (BldA) [Mass fraction] 98 % Willie Kaur [facility] 07-13-2024 15:01-0400 Systolic blood pressure 137 mm[Hg] Willie Kaur [facility] 05-08-2024 09:00-0400 Diastolic blood pressure 63 mm[Hg] Nelson Beck [facility] 05-08-2024 09:00-0400 Heart rate 55 /min Nelson Beck [facility] 05-08-2024 09:00-0400 Mean blood pressure 78 mm[Hg] Nelson Beck [facility] 05-08-2024 09:00-0400 SaO2% (BldA) [Mass fraction] 99 % Nelson Beck [facility] 05-08-2024 09:00-0400 Systolic blood pressure 108 mm[Hg] Nelson Beck [facility] 05-08-2024 08:26-0400 Diastolic blood pressure 77 mm[Hg] Nelson Beck [facility] 05-08-2024 08:26-0400 Heart rate 58 /min Nelson Beck [facility] 05-08-2024 08:26-0400 Mean blood pressure 105 mm[Hg] Nelson Beck [facility] 05-08-2024 08:26-0400 Respiratory rate 15 /min Nelson Beck [facility] 05-08-2024 08:26-0400 SaO2% (BldA) [Mass fraction] 98 % Nelson Beck [facility] 05-08-2024 08:26-0400 Systolic blood pressure 161 mm[Hg] Nelson Beck [facility] 05-08-2024 07:19-0400 Body temperature 98.42 [degF] Nelson Beck [facility] 05-08-2024 07:19-0400 Diastolic blood pressure 82 mm[Hg] Nelson Solares [facility] 05-08-2024 07:19-0400 Heart rate 64 /min Nelson Solares [facility] 05-08-2024 07:19-0400 Respiratory rate 16 /min Nelson Solares [facility] 05-08-2024 07:19-0400 SaO2% (BldA) [Mass fraction] 100 % Nelson Solares [facility] 05-08-2024 07:19-0400 Systolic blood pressure 163 mm[Hg] Nelson Solares [facility] 12-18-2023 13:32-0500 Blood Pressure Location Willie Kaur [facility] 12-18-2023 13:32-0500 Diastolic blood pressure 70 mm[Hg] Willie Kaur [facility] 12-18-2023 13:32-0500 Heart rate 60 /min Willie Kaur [facility] 12-18-2023 13:32-0500 SaO2% (BldA) [Mass fraction] 99 % Willie Kaur [facility] 12-18-2023 13:32-0500 Systolic blood pressure 110 mm[Hg] Willie Kaur [facility] 11-25-2023 09:00-0500 Body height 152.4 cm Antionette LOPEZ Work Phone: [facility] 11-25-2023 09:00-0500 Body mass index (BMI) [Ratio] 33.22 kg/m2 Antionette LOPEZ Work Phone: [facility] 11-25-2023 09:00-0500 Body weight 77.17 kg Antionette LOPEZ Work Phone: [facility] 11-25-2023 09:00-0500 Diastolic blood pressure 84 mm[Hg] Antionette LOPEZ Work Phone: [facility] 11-25-2023 09:00-0500 Systolic blood pressure 120 mm[Hg] Antionette LOPEZ Work Phone: [facility] 11-20-2023 13:11-0500 Diastolic blood pressure 81 mm[Hg] Vicky Castillo [facility] 11-20-2023 13:11-0500 Heart rate 59 /min Vicky Castillo [facility] 11-20-2023 13:11-0500 Mean blood pressure 106 mm[Hg] Vicky Castillo [facility] 11-20-2023 13:11-0500 Respiratory rate 18 /min Vicky Castillo [facility] 11-20-2023 13:11-0500 Systolic blood pressure 156 mm[Hg] Vicky Castillo [facility] 11-17-2023 11:36-0500 Diastolic blood pressure 118 mm[Hg] Landon DOUGLAS [facility] 11-17-2023 11:36-0500 Mean blood pressure 135 mm[Hg] Landon DOUGLAS [facility] 11-17-2023 11:36-0500 Systolic blood pressure 170 mm[Hg] Landon DOUGLAS [facility] 11-17-2023 11:27-0500 Blood Pressure Location Landon DOUGLAS [facility] 11-17-2023 11:27-0500 Diastolic blood pressure 107 mm[Hg] Landon DOUGLAS [facility] 11-17-2023 11:27-0500 Heart rate 68 /min Landon DOUGLAS [facility] 11-17-2023 11:27-0500 SaO2% (BldA) [Mass fraction] 98 % Landon DOUGLAS [facility] 11-17-2023 11:27-0500 Systolic blood pressure 171 mm[Hg] Landon MISAEL [facility] 10-26-2023 12:48-0500 Diastolic blood pressure 88 mm[Hg] Vicky Castillo [facility] 10-26-2023 12:48-0500 Heart rate 66 /min Vicky Castillo [facility] 10-26-2023 12:48-0500 Mean blood pressure 106 mm[Hg] Vicky Castillo [facility] 10-26-2023 12:48-0500 Respiratory rate 20 /min Vicky Castillo [facility] 10-26-2023 12:48-0500 Systolic blood pressure 143 mm[Hg] Vicky Castillo [facility] 10-07-2023 09:52-0500 Heart rate 68 /min Claudio Monroe [facility] 10-07-2023 09:52-0500 SaO2% (BldA) [Mass fraction] 100 % Claudio Monroe [facility] 10-07-2023 09:52-0500 Diastolic blood pressure 95 mm[Hg] Claudio Monroe [facility] 10-07-2023 09:52-0500 Mean blood pressure 113 mm[Hg] Claudio Monroe [facility] 10-07-2023 09:52-0500 Systolic blood pressure 148 mm[Hg] Claudio Monroe [facility] 10-07-2023 09:52-0500 Respiratory rate 16 /min Claudio Monroe [facility] 10-07-2023 09:45-0500 Diastolic blood pressure 94 mm[Hg] Claudio Monroe [facility] 10-07-2023 09:45-0500 Heart rate 88 /min Claudio Monroe [facility] 10-07-2023 09:45-0500 SaO2% (BldA) [Mass fraction] 100 % Claudio Monroe [facility] 10-07-2023 09:45-0500 Systolic blood pressure 178 mm[Hg] Claudio Monroe [facility] 10-07-2023 09:03-0500 Heart rate 65 /min Claudio Monroe [facility] 10-07-2023 09:03-0500 SaO2% (BldA) [Mass fraction] 98 % Claudio Monroe [facility] 10-07-2023 09:03-0500 Body temperature 97.52 [degF] Claudio Monroe [facility] 10-07-2023 09:03-0500 Diastolic blood pressure 83 mm[Hg] Claudio Monroe [facility] 10-07-2023 09:03-0500 Mean blood pressure 103 mm[Hg] Claudio Monroe [facility] 10-07-2023 09:03-0500 Systolic blood pressure 143 mm[Hg] Claudio Monroe [facility] 10-07-2023 09:03-0500 Respiratory rate 14 /min Claudio Monroe [facility] 09-22-2023 11:23-0500 Diastolic blood pressure 88 mm[Hg] Demar Trammell [facility] 09-22-2023 11:23-0500 Heart rate 60 /min Demar Trammell [facility] 09-22-2023 11:23-0500 Mean blood pressure 105 mm[Hg] Demar Trammell [facility] 09-22-2023 11:23-0500 Respiratory rate 14 /min Demar Trammell [facility] 09-22-2023 11:23-0500 Systolic blood pressure 138 mm[Hg] Demar Trammell [facility] 07-14-2023 09:26-0400 Diastolic blood pressure 78 mm[Hg] Vickyjayden LAST [facility] 07-14-2023 09:26-0400 Mean blood pressure 101 mm[Hg] Vickyjayden MCDOWELLG [facility] 07-14-2023 09:26-0400 Systolic blood pressure 146 mm[Hg] Vickyjayden MCDOWELLG [facility] 07-14-2023 09:15-0400 Blood Pressure Location Vickyjayden MCDOWELLG [facility] 07-14-2023 09:15-0400 Diastolic blood pressure 82 mm[Hg] Vickyjayden MCDOWELLG [facility] 07-14-2023 09:15-0400 Heart rate 67 /min Vickyjayden MCDOWELLG [facility] 07-14-2023 09:15-0400 SaO2% (BldA) [Mass fraction] 98 % Vickyjayden MCDOWELLG [facility] 07-14-2023 09:15-0400 Systolic blood pressure 148 mm[Hg] Vicky STANG [facility] 06-30-2023 15:15-0400 Diastolic blood pressure 97 mm[Hg] Landon DOUGLAS [facility] 06-30-2023 15:15-0400 Mean blood pressure 123 mm[Hg] Landon DOUGLAS [facility] 06-30-2023 15:15-0400 Systolic blood pressure 174 mm[Hg] Landon DOUGLAS [facility] 06-30-2023 15:05-0400 Blood Pressure Location Landon DOUGLAS [facility] 06-30-2023 15:05-0400 Diastolic blood pressure 98 mm[Hg] Landon DOUGLAS [facility] 06-30-2023 15:05-0400 Heart rate 80 /min Landon DOUGLAS [facility] 06-30-2023 15:05-0400 SaO2% (BldA) [Mass fraction] 99 % Landon DOUGLAS [facility] 06-30-2023 15:05-0400 Systolic blood pressure 166 mm[Hg] Landon DOUGLAS [facility] 06-08-2023 08:21-0400 Diastolic blood pressure 94 mm[Hg] Vicky Castillo [facility] 06-08-2023 08:21-0400 Heart rate 62 /min Vicky Castillo [facility] 06-08-2023 08:21-0400 Respiratory rate 16 /min Vickyjayden Castillo [facility] 06-08-2023 08:21-0400 Systolic blood pressure 156 mm[Hg] Vickyjayden Castillo [facility] 06-05-2023 10:45-0400 Diastolic blood pressure 70 mm[Hg] Prasad Avalos [facility] 06-05-2023 10:45-0400 Heart rate 70 /min Prasad Avalos [facility] 06-05-2023 10:45-0400 Mean blood pressure 97 mm[Hg] Prasad Avalos [facility] 06-05-2023 10:45-0400 Respiratory rate 20 /min Prasad Infantee [facility] 06-05-2023 10:45-0400 SaO2% (BldA) [Mass fraction] 96 % Prasad Robbie [facility] 06-05-2023 10:45-0400 Systolic blood pressure 152 mm[Hg] Prasad Robbie [facility] 06-05-2023 09:25-0400 Diastolic blood pressure 70 mm[Hg] Prasad Robbie [facility] 06-05-2023 09:25-0400 Heart rate 71 /min Prasad Robbie [facility] 06-05-2023 09:25-0400 Mean blood pressure 96 mm[Hg] Prasad Robbie [facility] 06-05-2023 09:25-0400 Respiratory rate 17 /min Prasad Robbie [facility] 06-05-2023 09:25-0400 SaO2% (BldA) [Mass fraction] 99 % Prasad Robbie [facility] 06-05-2023 09:25-0400 Systolic blood pressure 147 mm[Hg] Prasad Robbie [facility] 06-05-2023 08:54-0400 gluc 109 mg/dL Prasad Robbie [facility] 06-05-2023 08:54-0400 gluc Prasad Robbie [facility] 06-05-2023 08:47-0400 Body temperature 98.06 [degF] Prasad Robbie [facility] 06-05-2023 08:47-0400 Diastolic blood pressure 106 mm[Hg] Prasad Robbie [facility] 06-05-2023 08:47-0400 Heart rate 81 /min Prasad Avalos [facility] 06-05-2023 08:47-0400 Respiratory rate 20 /min Prasad Avalos [facility] 06-05-2023 08:47-0400 SaO2% (BldA) [Mass fraction] 97 % Prasad Avalos [facility] 06-05-2023 08:47-0400 Systolic blood pressure 173 mm[Hg] Prasad Avalos [facility] 04-28-2023 09:05-0400 Diastolic blood pressure 87 mm[Hg] Vickyjayden LAST [facility] 04-28-2023 09:05-0400 Mean blood pressure 111 mm[Hg] Vickyjayden MCDOWELLG [facility] 04-28-2023 09:05-0400 Systolic blood pressure 160 mm[Hg] Vicky STANG [facility] 04-28-2023 08:55-0400 Blood Pressure Location Vicky STANG [facility] 04-28-2023 08:55-0400 Diastolic blood pressure 88 mm[Hg] Vicky STANG [facility] 04-28-2023 08:55-0400 Heart rate 66 /min Vicky STANG [facility] 04-28-2023 08:55-0400 SaO2% (BldA) [Mass fraction] 97 % Vicky STANG [facility] 04-28-2023 08:55-0400 Systolic blood pressure 153 mm[Hg] Vicky STANG [facility] 04-20-2023 13:54-0400 Diastolic blood pressure 89 mm[Hg] Demar Valeri [facility] 04-20-2023 13:54-0400 Diastolic blood pressure 84 mm[Hg] Demar Valeri [facility] 04-20-2023 13:54-0400 Heart rate 72 /min Demar Valeri [facility] 04-20-2023 13:54-0400 Heart rate 62 /min Demar Valeri [facility] 04-20-2023 13:54-0400 Mean blood pressure 112 mm[Hg] Demar Valeri [facility] 04-20-2023 13:54-0400 Respiratory rate 14 /min Demar Valeri [facility] 04-20-2023 13:54-0400 Systolic blood pressure 159 mm[Hg] Demar Valeri [facility] 04-20-2023 13:54-0400 Systolic blood pressure 147 mm[Hg] Demar Valeri [facility] 04-03-2023 10:40-0400 Diastolic blood pressure 62 mm[Hg] NILL [facility] 04-03-2023 10:40-0400 Heart rate 69 /min NILL [facility] 04-03-2023 10:40-0400 Respiratory rate 32 /min NILL [facility] 04-03-2023 10:40-0400 SaO2% (BldA) [Mass fraction] 96 % NILL [facility] 04-03-2023 10:40-0400 Systolic blood pressure 100 mm[Hg] NILL [facility] 04-03-2023 10:30-0400 Diastolic blood pressure 56 mm[Hg] NILL [facility] 04-03-2023 10:30-0400 Heart rate 65 /min NILL [facility] 04-03-2023 10:30-0400 Respiratory rate 20 /min NILL [facility] 04-03-2023 10:30-0400 SaO2% (BldA) [Mass fraction] 95 % NILL [facility] 04-03-2023 10:30-0400 Systolic blood pressure 93 mm[Hg] NILL [facility] 04-03-2023 10:25-0400 Diastolic blood pressure 59 mm[Hg] NILL [facility] 04-03-2023 10:25-0400 Heart rate 69 /min NILL [facility] 04-03-2023 10:25-0400 Respiratory rate 17 /min NILL [facility] 04-03-2023 10:25-0400 SaO2% (BldA) [Mass fraction] 94 % NILL [facility] 04-03-2023 10:25-0400 Systolic blood pressure 102 mm[Hg] NILL [facility] 04-03-2023 10:20-0400 Blood Pressure Location NILL [facility] 04-03-2023 10:15-0400 Blood Pressure Location NILL [facility] 04-03-2023 10:15-0400 Body temperature 96.8 [degF] NILL [facility] 04-03-2023 09:47-0400 Respiratory rate 18 /min Michael ALBRIGHT [facility] 04-03-2023 09:24-0400 Blood Pressure Location Michael ALBRIGHT [facility] 04-03-2023 09:24-0400 Body temperature 96.8 [degF] Michael ALBRIGHT [facility] 03-17-2023 11:37-0400 Heart rate 78 /min Demar Valeri [facility] 03-17-2023 11:37-0400 SaO2% (BldA) [Mass fraction] 98 % Demar Valeri [facility] 03-17-2023 11:37-0400 Diastolic blood pressure 63 mm[Hg] Demar Valeri [facility] 03-17-2023 11:37-0400 Mean blood pressure 87 mm[Hg] Demar Valeri [facility] 03-17-2023 11:37-0400 Systolic blood pressure 136 mm[Hg] Demar Valeri [facility] 03-17-2023 11:33-0400 Diastolic blood pressure 114 mm[Hg] Demar Valeri [facility] 03-17-2023 11:33-0400 Heart rate 91 /min Demar Valeri [facility] 03-17-2023 11:33-0400 Respiratory rate 14 /min Demar Valeri [facility] 03-17-2023 11:33-0400 SaO2% (BldA) [Mass fraction] 99 % Demar Valeri [facility] 03-17-2023 11:33-0400 Systolic blood pressure 156 mm[Hg] Demar Valeri [facility] 03-17-2023 10:56-0400 Heart rate 89 /min Demar Valeri [facility] 03-17-2023 10:56-0400 SaO2% (BldA) [Mass fraction] 100 % Demar Valeri [facility] 03-17-2023 10:56-0400 Diastolic blood pressure 87 mm[Hg] Demar Valeri [facility] 03-17-2023 10:56-0400 Mean blood pressure 104 mm[Hg] Demar Valeri [facility] 03-17-2023 10:56-0400 Systolic blood pressure 138 mm[Hg] Demar Valeri [facility] 03-17-2023 10:56-0400 Body temperature 98.06 [degF] Demar Valeri [facility] 03-17-2023 10:56-0400 Respiratory rate 12 /min Demar Valeri [facility] 02-23-2023 12:32-0400 Diastolic blood pressure 97 mm[Hg] Demar Valeri [facility] 02-23-2023 12:32-0400 Heart rate 62 /min Demar Valeri [facility] 02-23-2023 12:32-0400 Mean blood pressure 115 mm[Hg] Demar Valeri [facility] 02-23-2023 12:32-0400 Respiratory rate 12 /min Demar Valeri [facility] 02-23-2023 12:32-0400 Systolic blood pressure 150 mm[Hg] Demar Trammell [facility] 02-20-2023 13:22-0400 Blood Pressure Location Michael ALBRIGHT [facility] 02-20-2023 13:22-0400 Diastolic blood pressure 84 mm[Hg] Michael ROLANDL [facility] 02-20-2023 13:22-0400 Heart rate 72 /min Michael ROLANDL [facility] 02-20-2023 13:22-0400 Respiratory rate 16 /min Michael ROLANDL [facility] 02-20-2023 13:22-0400 Systolic blood pressure 122 mm[Hg] Michael ROLANDL [facility] 04-29-2022 09:28-0400 Blood Pressure Location Vicky LAST [facility] 04-29-2022 09:28-0400 Diastolic blood pressure 71 mm[Hg] Vickyjayden LAST [facility] 04-29-2022 09:28-0400 Heart rate 73 /min Vickyjayden LAST [facility] 04-29-2022 09:28-0400 Respiratory rate 18 /min Vickyjayden LAST [facility] 04-29-2022 09:28-0400 SaO2% (BldA) [Mass fraction] 99 % Vickyjayden MCDOWELLG [facility] 04-29-2022 09:28-0400 Systolic blood pressure 106 mm[Hg] Vickyjayden LAST [facility] Encounters Encounter Date Encounter Type Care Provider Facility Start: 08-19-2024 End: 08-19-2024 ambulatory SAM AWILDA [place] Start: 08-19-2024 End: 08-19-2024 Patient encounter procedure SAM KAISER [facility] Start: 08-11-2024 End: 08-11-2024 Bamboo flowsheet Sydnie Villalobos DPM Work Phone: [facility] Start: 08-11-2024 End: 08-11-2024 Bamboo flowsheet Sydnie Villalobos DPM Work Phone: [facility] Start: 08-11-2024 End: 08-11-2024 Office outpatient visit 15 minutes Sydnie Villalobos DPM Work Phone: [facility] Comment on above: Pes valgus, acquired , right (Primary Dx); Pes valgus, acquired, left; Gastrocnemius equinus of right lower extremity; Gastrocnemius equinus of left lower extremity; Pain in both feet; Cramping of feet; Bilateral leg cramps; 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 Start: 08-11-2024 End: 08-11-2024 ambulatory SYDNIE VILLALOBOS Not Available Start: 08-11-2024 ambulatory [facility] Ambulatory [facility] Start: 07-13-2024 End: 07-13-2024 ambulatory Willie Kaur Facility[place] Start: 07-13-2024 End: 07-13-2024 Patient encounter procedure Willie Kaur [facility] Start: 07-06-2024 End: 07-06-2024 ambulatory Claudio Monroe Facility:[facility] Start: 07-06-2024 End: 07-06-2024 ambulatory Yarelis Mcghee Facility:[facility] Start: 05-08-2024 End: 05-08-2024 Emergency department patient visit Nelson Solares [facility] Start: 03-03-2024 End: 03-03-2024 ambulatory SYDNIE VILLALOBOS Not Available Start: 12-18-2023 End: 12-18-2023 ambulatory Willie Kaur Facility:[facility] Start: 12-18-2023 End: 12-18-2023 Patient encounter procedure Iwllie La Vincent [facility] Start: 12-02-2023 Clinisync Result Encounter Antionette Yang PA Work Phone: [facility] Unsolicited Start: 12-02-2023 Clinisync Result Encounter Antionette Yang PA Work Phone: [facility] Unsolicited Start: 12-02-2023 Telephone encounter Antionette Yang PA Work Phone: [facility] Start: 11-30-2023 Clinisync Result Encounter Antionette Yang PA Work Phone: [facility] Unsolicited Start: 11-30-2023 Clinisync Result Encounter Antionette Yang PA Work Phone: [facility] Unsolicited Start: 11-25-2023 Clinisync Result Encounter Antionette Yang PA Work Phone: [facility] Unsolicited Start: 11-25-2023 Clinisync Result Encounter Antionette Yang PA Work Phone: [facility] Unsolicited Start: 11-25-2023 End: 11-25-2023 Patient encounter procedure Antionette Yang PA Work Phone: [facility] Work Phone: Start: 11-25-2023 End: 11-25-2023 Periodic preventive med est patient 65yrs& older Antionette Trey JESSICA Work Phone: [facility] Comment on above: Well woman exam with routine gynecological exam; Breast cancer screening by mammogram; Other osteoporosis, unspecified pathological fracture presence (CMS/HCC); Restless legs; Well woman exam Start: 11-25-2023 End: 11-25-2023 ambulatory ANTIONETTE YANG Not Available Start: 11-20-2023 End: 11-20-2023 ambulatory FRANCO Castillo Facility[place] Start: 11-20-2023 End: 11-20-2023 Pain Management Vicky Castillo [facility] Start: 11-17-2023 End: 11-17-2023 ambulatory Landon DOUGLAS Facility:[facility] Start: 11-17-2023 End: 11-17-2023 Patient encounter procedure Landon DOUGLAS [facility] Start: 10-26-2023 End: 10-26-2023 Patient encounter procedure Vicky Castillo [facility] Start: 10-26-2023 End: 10-26-2023 ambulatory Vicky Castillo Facility[place] Start: 10-26-2023 End: 10-26-2023 Pain Management Vickyjayden Castillo [facility] Start: 10-07-2023 End: 10-07-2023 ambulatory Claudio Monroe Facility:[facility] Start: 10-07-2023 End: 10-07-2023 Pain Management Claudio Monroe [facility] Start: 09-22-2023 End: 09-22-2023 ambulatory Demar Trammell Facility:[facility] Start: 09-22-2023 End: 09-22-2023 Pain Management Demar Trammell [facility] Start: 09-15-2023 End: 09-15-2023 ambulatory SYDNIE VILLALOBOS Not Available Start: 08-06-2023 End: 08-06-2023 ambulatory Barry Husain Facility:[facility] Start: 08-06-2023 End: 08-06-2023 Patient encounter procedure Barry Husain [facility] Start: 07-23-2023 End: 07-23-2023 ambulatory Barry Husain Facility:[facility] Start: 07-14-2023 End: 07-14-2023 Hypertension screening status Vicky LAST [facility] Start: 07-14-2023 End: 07-14-2023 Patient encounter procedure Vicky LAST [facility] Start: 06-30-2023 End: 06-30-2023 Patient encounter procedure Landon Arlen DOUGLAS [facility] Start: 06-08-2023 End: 06-08-2023 Pain Management Vicky Anna [facility] Start: 06-05-2023 End: 06-05-2023 Emergency department patient visit Prasad Avalos [facility] Start: 05-04-2023 End: 05-04-2023 Pain Management Vicky Castillo [facility] Start: 04-28-2023 End: 04-28-2023 Patient encounter procedure Vicky LAST [facility] Start: 04-20-2023 End: 04-20-2023 Pain Management Demar Trammell [facility] Start: 04-15-2023 End: 04-15-2023 Patient encounter procedure Michael ALBRIGHT [facility] Nill/Bryant Thao Start: 04-03-2023 End: 04-03-2023 Patient encounter procedure Michael ALBRIGHT [facility] Start: 03-17-2023 End: 03-17-2023 Pain Management Demar Trammell [facility] Start: 03-03-2023 End: 03-04-[address] YARELIS MCGHEE . Facility:[facility] Start: 02-23-2023 End: 02-23-2023 Pain Management Demar Trammell [facility] Start: 02-20-2023 End: 02-20-2023 Patient encounter procedure Michael ALBRIGHT General Surgery Nilrazia/Bryant Thao Start: 02-09-2023 End: 02-10-[address] YARELIS MCGHEE . Facility:[facility] Start: 11-05-2022 End: 11-05-[address] YARELIS MCGHEE . Facility:[facility] Start: 10-27-2022 End: 10-27-2022 Patient encounter procedure Vicky LAST [facility] Start: 10-22-2022 End: 10-23-[address] JUAN CARLOS GIFFORD . Facility:[facility] Start: 09-24-2022 End: 09-24-[address] UJAN CARLOS GIFFORD . Facility:[facility] Start: 04-29-2022 End: 04-29-2022 Patient encounter procedure Vicky LAST [facility] Start: 12-05-2017 End: 04-15-2018 Ambulatory Adryan Yoon Facility:[facility] Procedures Date Procedure Procedure Detail Performing Clinician Start: 08-19-2024 CT myelogram of lumbar region SAM Esparza Start: 12-02-2023 ALL THYROXINE (T4) FREE Antionette LOPEZ Work Phone: Start: 11-30-2023 ALL LIPID PROFILE (FASTING) Antionette LOPEZ Work Phone: Start: 11-30-2023 ALL THYROID STIM HORMONE Antionette LOPEZ Work Phone: Start: 11-30-2023 [facility] CMP (CMP) (FOR REMOTE [facility] USE) Antionette LOPEZ Work Phone: Start: 11-30-2023 Mammography Antionette LOPEZ Work Phone: Start: 11-25-2023 IGP,APTIMA HPV,AGE GDLN Antionette LOPEZ Work Phone: Start: 10-07-2023 Injection of nerve root of lumbar spine using fluoroscopic guidance Vicky [employer] Comment on above: right L5/S1 TFESI- 50% relief x 3 days t hen no relief Start: 04-20-2023 Injection of steroid into hip joint Vicky [employer]er[employer] Comment on above: Right Hip Bursa Injection-50% [...] Screening for malign ant neoplasm of colon [facility] Start: 11-30-2024 Screening for malign ant neoplasm of breast Mammogram [facility] Start: 11-28-2024 End: 11-28-2024 Patient encounter procedure 11/28/2024 9:00 AM EST Office Visit [facility] [address] [address] Antionette Yang PA [address] [place] [address] [facility] Start: 08-11-2024 End: 08-11-2024 Patient encounter procedure 08/11/2024 11:00 AM EDT Office Visit [facility] [address] [place] [id number] Sydnie Villalobos, DPM [address] [place] [address] Arrived [facility] Comment on above: Arrived Start: 06-19-2024 Influenza vaccination Influenza Vacc ine (#1) [facility] Start: 11-25-2023 End: 11-25-2024 Lipid 1996 panel - Serum or Plasma Lipid panel Lab Routine Well woman exam with routine gynecological exam Well woman exam Expected: 11/25/2023 (Approximate), Expires: 11/25/2024 [facility] Comment on above: Expected: 11/25/2023 (Approximate), Expires: 11/25/2024 Start: 11-25-2023 End: 01-23-2025 MG Breast - bilateral Screening Bilateral screening mammogram Imaging Routine Breast cancer screening by mammogram Expected: 11/25/2023, Expires: 01/23/2025 [facility] Work Phone: Comment on above: Expected: 11/25/2023 , Expires: 01/23/2025 Start: 10-22-2023 Screening for malign ant neoplasm of breast Mammogram [facility] Start: 06-19-2023 Influenza vaccination Influenza Vacc ine (#1) [facility] Start: 2022 Pneumococcal Vaccine : 65+ Years (1 - PCV) Pneumococcal Vaccine: 65+ Years (1 - PCV) [facility] Start: 2022 Pneumococcal Vaccine : 65+ Years (1 of 1 - PCV) Pneumococcal Vaccine: 65+ Years (1 of 1 - PCV) [facility] Start: 1955 Screening for malign ant neoplasm of colon [facility] CBC W Auto Different ial panel - Blood CBC and differential Lab Routine Well woman exam with routine gynecological exam Well woman exam Ordered: 11/25/2023 [facility] Comment on above: Ordered: 11/25/2023 Comprehensive metabo lic 2000 panel - Serum or Plasma Comprehensive metabolic panel Lab Routine Well woman exam with routine gynecological exam Well woman exam Ordered: 11/25/2023 [facility] Comment on above: Ordered: 11/25/2023 Hemoglobin A1c measurement Hemoglobin A1c Lab Routine Well woman exam with routine gynecological exam Well woman exam Ordered: 11/25/2023 [facility] Comment on above: Ordered: 11/25/2023 THIN PREP TIS PAP AN D HR HPV DNA THIN PREP TIS PAP AND HR HPV DNA Pathology and Cytology Routine Well woman exam with routine gynecological exam Ordered: 11/25/2023 [facility] Comment on above: Ordered: 11/25/2023 Thyrotropin [Units/volume] in Serum or Plasma TSH Lab Routine Well woman exam with routine gynecological exam Well woman exam Ordered: 11/25/2023 [facility] Comment on above: Ordered: 11/25/2023 Immunizations Immunization Date Immunization Notes Care Provider Geovanna sommer 07-23-2021 SARS-CoV-2 (COVID-19 ) mRNA BNT-162b2 harlan [facility] 07-02-2021 SARS-CoV-2 (COVID-19 ) mRNA BNT-162b2 vax Michael ALBRIGHT [facility] [place] 02-22-2021 zoster vaccine recombinant Antionette LOPEZ Work Phone: [facility] 11-12-2020 zoster vaccine recombinant Antionette Ponceabdoul LOPEZ Work Phone: [facility] NEGATED: Highlighted row has not occurred!12-25-2021 influenza virus vaccine, unspecified formulation Vicky LAST [facility] NEGATED: Highlighted row has not occurred!10-16-2021 influenza virus vaccine, unspecified formulation Vicky LAST [facility] Payers Date Payer Category Payer Private Health Insurance [employer] [place] m[place] [id number] 2022 Unknown AAR AAR [id number] 2022-Present [address] [place] [address] [id number] 2022 Medicare [id number] 2017 Unknown [id number] 1959 Medicare [id number] 1959 Unknown [id number] 1957 Unknown [id number] 2.16.840.1.229156.3.579.2 .593 1957 Unknown [id number] 2.16.840.1.016645.3.579.2 .593 1957 Unknown [id number] 2.16.840.1.374057.3.579.2 .59 1957 Unknown [id number] 2.16.840.1.247009.3.579.2 .59 1957 Unknown [id number] 2.16.840.1.391457.3.579.2 .59 1957 Unknown [id number] 2.16.840.1.625937.3.579.2 .72 1957 Unknown [id number] 2.16.840.1.864758.3.579.2 72 1957 Unknown [id number] 2.16.840.1.012523.3.579.2 72 1957 Unknown [id number] 2.16.840.1.896389.3.579.2 .72 1957 Unknown [id number] 2.16.840.1.887338.3.579.2 72 1957 Unknown [id number] 2.16.840.1.842369.3.579.2 72 1957 Unknown [id number] 2.16.840.1.149926.3.579.2 72 1957 Unknown [id number] 2.16.840.1.062091.3.579.2 .72 1957 Unknown [id number] 2.16.840.1.202527.3.579.2 72 1957 Unknown [id number] 2.16.840.1.665739.3.579.2 72 1957 Unknown [id number] 2.16.840.1.191569.3.579.2 72 1957 Unknown [id number] 2.16.840.1.625260.3.579.2 .727 1957 Unknown [id number] 2.16.840.1.915943.3.579.2 .1286 1957 Unknown [id number] 2.16.840.1.380272.3.579.2 .1259 1957 Unknown [id number] 2.16.840.1.438908.3.579.2 .1259 1957 Unknown [id number] 2.16.840.1.701298.3.579.2 .1259 1957 Unknown [id number] 2.16.840.1.144241.3.579.2 .1259 1957 Unknown [id number] 2.16.840.1.152456.3.579.2 .727 1957 Unknown [id number] 2.16.840.1.822321.3.579.2 .727 1957 Unknown [id number] 2.16.840.1.685760.3.579.2 .727 Social History Date Type Detail Facility Start: 12-25-2021 End: 07-13-2024 Tobacco smoking status Never smoked tobacco (finding) [facility] Comment on above: Denies. Start: 11-24-2023 End: 08-11-2024 Sex Assigned At Female [facility] Tobacco smoking status Never [facility] Comment on above: Denies. Tobacco [facility] Comment on above: denies Tobacco smoking status No Smokin g Status Entered [facility] Start: 05-20-2023 Tobacco use and exposure Smokeless tobacco non-user [facility] Start: 11-25-2023 End: 08-11-2024 Alcohol intake Current drinker of alcohol (finding) [facility] Start: 11-24-2023 End: 08-11-2024 History of Social function [facility] How [...] Healthcare Functional Status Date Assessment Result Facility 08-19-2024 Functional Status N/A [facility] 07-13-2024 Functional Status N/A [facility] 05-08-2024 Functional Status N/A [facility] 12-18-2023 Functional Status No [facility] 11-20-2023 Functional Status N/A [facility] 11-17-2023 Functional Status No [facility] 10-26-2023 Functional Status N/A [facility] 10-07-2023 Functional Status N/A [facility] 09-22-2023 Functional Status N/A [facility] 07-14-2023 Functional Status No [facility] 06-30-2023 Functional Status No [facility] 06-08-2023 Functional Status N/A [facility] 06-05-2023 Functional Status N/A [facility] 05-04-2023 Functional Status N/A [facility] 04-28-2023 Functional Status No [facility] 04-20-2023 Functional Status N/A [facility] 04-03-2023 Functional Status N/A [facility] 03-17-2023 Functional Status N/A [facility] 02-23-2023 Functional Status N/A [facility] 02-20-2023 Functional Status N/A [facility] lEoina Thao 04-29-2022 Functional Status N/A [facility] Clinical Notes 10-08-2021 to 08-11-2024 Sydnie Villalobos DPM - 08/11/2024 11:00 AM EDT Note Date & Type Note Facility 08-11-2024 History of Present illness Narrative Images from the original note were not included. Subjective Patient ID: Gladys Agarwal is a 68 y.o. female who presents for Foot Pain (Chloe Agarwal is a 68 y.o. female who presents with concerns of redness on the bottom, pain, leg cramps. Pain is worse when laying down, toes curl and pain shoots up her leg. SS 7.5). Established patient returns with complaints of bilateral foot pain. She states she has cramping in her feet at night. She is noticed more joint pain at the medial arch and also has bunions that are bothersome for her. She states the symptoms really increased starting in November or early December of 2023. She relates that the hallux can hyperextend with the cramping and the cramping can be in her lower leg all the way up to her thigh. It is intermittently, but happens daily. It is uncomfortable and becoming more bothersome. She has seen her PCP and outreach rep. She understands her water pill may be causing some of the cramping, but she was told she has to stay on it. She is trying to lose weight to improve her BP/HTN and her foot pain. She has tried gabapentin and Requip without improvement. She wears drumbi tennis shoes. She does not currently wear inserts. She has ASO ankle brace, but does not wear them routinely. No history of smoking Review of Systems Current Outpatient Medications: alendronate (Fosamax) 70 MG tablet, Take 1 tablet (70 mg) by mouth every 7 (seven) days Take in the morning with a full glass of water, on an empty stomach, and do not take anything else by mouth or lie down for the next 30 min., Disp: 4 tablet, Rfl: 6 hydroCHLOROthiazide (Microzide) 12.5 MG capsule, Take 12.5 mg by mouth in the morning., Disp: , Rfl: losartan (Cozaar) 25 MG tablet, Take 100 mg by mouth., Disp: , Rfl: metoprolol succinate XL (Toprol-XL) 25 MG 24 hr tablet, Take 50 mg by mouth. Do not crush or chew., Disp: , Rfl: pantoprazole (ProtoNix) 40 MG EC tablet, Take 40 mg by mouth in the morning. Take before meals. Do not crush, chew, or split. ., Disp: , Rfl: rOPINIRole (Requip) 0.5 MG tablet, Take 0.5 mg by mouth at bedtime, Disp: , Rfl: sucralfate (Carafate) 1 GM/10ML suspension, Take 1 g by mouth every 6 (six) hours., Disp: , Rfl: Gabapentin, Lisinopril, and Sulfa antibiotics Past Surgical History: Procedure Laterality Date FOOT SURGERY Bilateral [address] Prasad Villalobos KNEE SURGERY Bilateral Left: 2005; Right: 2015 [place] LAPAROSCOPIC APPENDECTOMY 12/04/2017 [place] REMOVAL OF KIDNEY STONE 2007 Family History Problem Relation Name Age of Onset Early natural Mother Heart disease Mother Heart disease Father Objective Physical Exam Constitutional: Appearance: Normal appearance. HENT: Head: Normocephalic and atraumatic. Cardiovascular: Comments: Pedal pulses: DP 2/4 bilateral, PT 2/4 bilateral. Skin temp is warm to warm. Varicosities: none Hair growth: sparse Pulmonary: Effort: Pulmonary effort is normal. Musculoskeletal: Right lower leg: No edema. Left lower leg: No edema. Comments: Foot morphology: CLINICAL PICTURES TAKEN 08/11/24. Pes planus. Pt is able to perform double limb heel rise. Single limb heel rise is not possible due to weakness. WB heels are everted, with heel rise, heels invert but only to neutral. Both feet are pronated, forefoot into abductus and pes planus deformity is noted. ROM: Ankle joint dorsiflexion is past neutral with knee extended and improves with knee flexed. STJ ROM are normal and pain free. There is no pain with range of motion of 1st MTPJ bilaterally MUSCLE STRENGTH: Dorsiflexion, plantarflexion, inversion, eversion are 5/5 b/l. PAIN: No pain to either foot. 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 Large medial prominence of 1st met head, with lateral deviation of great toe. Great toe impinges on the 2nd toe and the 2nd toes are contracted at the MPJ and the PIPJ. Deformities are flexible. Pain over the 1st Met head especially with shoes. Pes planus, heels everted, loss of medial longitudinal arch height PAIN: there is mild discomfort with a bunion bilaterally there is pain with the 1st tarsometatarsal joint on the left plantarly. More mild tenderness at navicular cuneiform joint. Pain at the spring ligament bilaterally. There is mild tenderness along the posterior tibial tendon bilaterally. Skin: General: Skin is warm and dry. Capillary Refill: Capillary refill takes 2 to 3 seconds. Findings: No bruising or erythema. Comments: SKIN FINDINGS: Webspaces are clean and dry HYPERKERATOTIC LESION: mild at medial 1st met head NAIL PATHOLOGY: none Skin texture and turgor: normal Neurological: Mental Status: She is alert and oriented to person, place, and time. Comments: Light touch sensation intact b/l feet. History of radiculopathy. Vibratory sensation intact at IPJ bilaterally Assessment/Plan ICD-10-CM 1. Pes valgus, acquired, right M21.6X1 2. Pes valgus, acquired, left M21.6X2 3. Gastrocnemius equinus of right lower extremity M62.461 4. Gastrocnemius equinus of left lower extremity M62.462 5. Pain in both feet M79.671 M79.672 6. Cramping of feet R25.2 7. Bilateral leg cramps R25.2 8. 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 She has ruled out a lot of the potential causes. Patient has excellent pedal pulses, has increased her water intake and is not a smoker. The cramping may be combination issue of symtpomatic flat feet and hydrochlorothiazide We reviewed that the bilateral pes planovalgus is likely causing her multiple symptoms of cramping, medial foot pain, bunion pain. Currently the left foot is worse than the right. I discussed options of conservative versus surgical intervention. Patient states she is planning on surgical intervention at some point. However, she is dealing with thyroid issues currently that she would like to figure out 1st. Therefore, no new radiographs were taken to day. Last radiographs were taken in 2022. We will plan to obtain new radiographs when patient is ready to move forward with surgery Conservatively she should wear supportive shoe gear at all times. Start wearing orthotics or inserts. Patient tried on power step inserts today and liked them, these were dispensed to her. She has ASO ankle braces at home. I also recommended she start wearing these on a regular basis. She can take anti-inflammatories as needed. We also discussed stretching exercises for the posterior musculature that she could start to work on her flexibility. She would like to call as needed for her next appointment. This note was created with the assistance of a speech recognition program. While intending to generate a timely document that accurately reflects the content of the visit, no guarantee can be provided that every grammatical or spelling mistake has been or will be identified or corrected. Thank you for your understanding. Sydnie Villalobos DPM documented in this encounter [facility] 07-06-2024 Note Consultation Note Patient is presenting with complaints of low back pain and left-sided radicular symptoms. This pain is worse with standing walking and she notes that he when riding in a car she has pain going over bumps. We did review her lumbar x-ray as well as lumbar MRI results. We discussed that there may be concern for instability at the anterolisthesis segment L5/S1. Her pain is an 8/10 severity. We have tried significant of her medications without significant efficacy. Gabapentin may have caused side effects and/or hypertension and this has been discontinued in the past. We discussed already on duloxetine and baclofen to see if this can help her pain as well as obtaining lumbar x-rays to better understand the stability of the segment. We may consider surgical referral if there is instability there. ELVIS Score: 32% PHQ-2: 1 Patient denies any symptoms of progressively worsening upper/lower extremity weakness, progressively worsening gait abnormality, new onset bowel/bladder incontinence/ urinary retention, or saddle anesthesia. No new or worsening symptoms of fever, chills, night sweats. 14 Point Review of systems negative unless otherwise noted. General: No acute distress. Patient appears well-nourished. HEENT: Head is normocephalic and external ears are normal in appearance. Cardiovascular: No signs of poor perfusion and no peripheral edema Pulmonary: Nonlabored breathing, symmetric chest movement. GI: Abdomen nondistended Integumentary: No lesions Neurologic: Alert, oriented x3. 5/5 strength grossly in the bilateral upper extremities. Sensation intact to light touch in the bilateral upper extremities. 5/5 strength grossly in the bilateral lower extremities. Sensation intact to light touch in the bilateral lower extremities. MSK/Special Testing: Negative Phuong sign bilaterally, seated straight leg raise test reproduce mild radicular symptoms on the left only. Mild tenderness palpation lumbar paraspinal musculature with noted hypertonicity. History, physical examination, and personal review of pertinent imaging results indicate a diagnosis of: -Lumbar spondyloarthropathy -Lumbar radiculopathy -L5/S1 anterior listhesis Plan: -We will start duloxetine 30 mg and increase to 60 mg after 1 week -Will start baclofen 5 mg 3 times daily -Will perform lumbar x-rays with flexion-extension views to evaluate if there is any instability at the anterolisthesis segment at L5-S1 -We can consider referral to a surgeon if there is instability at her L5/S1 segment, we would consider referral to Dr. Martins or Dr. Tate Patient was counseled on the above diagnosis and treatment, all questions were answered and patient agrees to adhere to the plan above. Risk and benefits of appropriate procedures and medications were reviewed as well with patient, who voiced understanding and agreeance. Patient was counseled on appropriate use of opioids if prescribed or renewed today and naloxone was offered to patient if opioids were prescribed or maintained at this visit. PHQ-2 scoring reviewed with patient and discussed seeking treatment for depression or mood disorder as appropriate. Patient was counseled on smoking cessation and/or continuing to abstain from nicotine/tobacco products as appropriate based on history; as smoking/nicotine can contribute to increased pain overall and decreased wound healing. Patient counseled on maintaining a healthy BMI as part of the total treatment of their pain and to reduce stress/strain on joints. Patient invited to return or call with any questions or concerns that arise. [facility] Comment on above: Result Comment: Elec tronically Signed By: Claudio Monroe DO.br\Date and Time Signed: 07/06/24 16:52 EDT 05-08-2024 Evaluation + Plan note Extrac nida from: Title:ED Note Author:Nelson Solares DO Date: Vertigo (R42: Dizziness and giddiness) Orders: lorazepam, 1 mg = 1 tab(s), Tab, Oral, Once, Stop date 05/08/24 7:45:00 EDT, STAT, Start date 05/08/24 7:45:00 EDT, 05/08/24 7:45:00 EDT meclizine, 12.5 mg = 1 tab(s), Tab, Oral, Once, Stop date 05/08/24 7:44:00 EDT, STAT, Start date 05/08/24 7:44:00 EDT, 05/08/24 7:44:00 EDT ondansetron, 4 mg = 1 tab(s), Tab-Dis, Oral, Once, Stop date 05/08/24 7:45:00 EDT, STAT, Start date 05/08/24 7:45:00 EDT, 05/08/24 7:45:00 EDT Add on Test BB Draw & Hold Capillary Glucose POC Cardiac Monitoring CBC w/ Auto Diff Communication Order Communication Order Comprehensive Metabolic Panel Continuous Pulse Oximetry CT Head or Brain w/o Contrast Dysphagia Screen ECG 12 Lead Adult eGFR Extra Martínez Tube Extra Martínez Tube Extra SST Tube Neurological Assessment Oxygen Protocol PT & PTT Rapid Response Form Routine Capillary Glucose POC Stroke Quality Measures Troponin 0 Hr. UA with Cult Rflx Vital Signs XR Chest Single View Future Appointments Appointment Date:07/13/2024 01:45:00 PM Scheduled Provider:Vincent CANTRELL, Willie Tovar Location:[facility] Appointment Type:Cardiology Follow Up ([facility]) Diagnostic Tests Pending * Urine Culture 05/08/24 [facility]07-21-2024 Hospital Discharge instructions Patient Education 05/08/2024 09:33:58 Vertigo Vertigo Vertigo is the feeling that you or your surroundings are moving when they are not. This feeling cancome and go at any time. Vertigo often goes away on its own. Vertigo can be dangerous if it occurs while you are doing something that could endanger yourself or others, such as driving or operating machinery. Your health care provider will do tests to try to determine the cause of your vertigo. Tests will also help your health care provider decide how best to treat your condition. Follow these instructions at home: Eating and drinking Dehydration can make vertigo worse. Drink enough fluid to keep your urine pale yellow. Do not drink alcohol. Activity Return to your normal activities as told by your health care provider. Ask your health care provider what activities are safe for you. In the morning, first sit up on the side of the bed. When you feel okay, stand slowly while you hold onto something until you know that your balance is fine. Move slowly. Avoid sudden body or head movements or certain positions, as told by your health care provider. If you have trouble walking or keeping your balance, try using a cane for stability. If you feel dizzy or unstable, sit down right away. Avoid doing any tasks that would cause danger to you or others if vertigo occurs. Avoid bending down if you feel dizzy. Place items in your home so that they are easy for you to reach without bending or leaning over. Do not drive or use machinery if you feel dizzy. General instructions Take kzjy-fee-axfhgia and prescription medicines only as told by your health care provider. Keep all follow-up visits. This is important. Contact a health care provider if: Your medicines do not relieve your vertigo or they make it worse. Your condition gets worse or you develop new symptoms. You have a fever. You develop nausea or vomiting, or if nausea gets worse. Your family or friends notice any behavioral changes. You have numbness or a prickling and tingling sensation in part of your body. Get help right away if you: Are always dizzy or you faint. Develop severe headaches. Develop a stiff neck. Develop sensitivity to light. Have difficulty moving or speaking. Have weakness in your hands, arms, or legs. Have changes in your hearing or vision. These symptoms may represent a serious problem that is an emergency. Do not wait to see if the symptoms will go away. Get medical help right away. Call your local emergency services (911 in the [place] Do not drive yourself to the hospital. Summary Vertigo is the feeling that you or your surroundings are moving when they are not. Your health care provider will do tests to try to determine the cause of your vertigo. Follow instructions for home care. You may be told to avoid certain tasks, positions, or movements. Contact a health care provider if your medicines do not relieve your symptoms, or if you have a fever, nausea, vomiting, or changes in behavior. Get help right away if you have severe headaches or difficulty speaking, or you develop hearing or vision problems. This information is not intended to replace advice given to you by your health care provider. Make sure you discuss any questions you have with your health care provider. Document Revised: 09/04/2021 Document Reviewed: 09/04/2021 [employer] Patient Education 2022 [employer] 05/08/2024 09:33:58 Urinary Tract Infection, Adult Urinary Tract Infection, Adult A urinary tract infection (UTI) is an infection of any part of the urinary tract. The urinary tractincludes the kidneys, ureters, bladder, and urethra. These organs make, store, and get rid of urinein the body. An upper UTI affects the ureters and kidneys. A lower UTI affects the bladder and urethra. What are the causes? Most urinary tract infections are caused by bacteria in your genital area around your urethra, where urine leaves your body. These bacteria grow and cause inflammation of your urinary tract. What increases the risk? You are more likely to develop this condition if: You have a urinary catheter that stays in place. You are not able to control when you urinate or have a bowel movement (incontinence). You are female and you: ?Use a spermicide or diaphragm for control. ?Have low estrogen levels. ?Are . You have certain genes that increase your risk. You are sexually active. You take antibiotic medicines. You have a condition that causes your flow of urine to slow down, such as: ?An enlarged prostate, if you are male. ?Blockage in your urethra. ?A kidney stone. ?A nerve condition that affects your bladder control (neurogenic bladder). ?Not getting enough to drink, or not urinating often. You have certain medical conditions, such as: ?Diabetes. ?A weak disease-fighting system (immunesystem). ?Sickle cell disease. ?Gout. ?Spinal cord injury. What are the signs or symptoms? Symptoms of this condition include: Needing to urinate right away (urgency). Frequent urination. This may include small amounts of urine each time you urinate. Pain or burning with urination. Blood in the urine. Urine that smells bad or unusual. Trouble urinating. Cloudy urine. Vaginal discharge, if you are female. Pain in the abdomen or the lower back. You may also have: Vomiting or a decreased appetite. Confusion. Irritability or tiredness. A fever or chills. Diarrhea. The first symptom in older adults may be confusion. In some cases, they may not have any symptoms until the infection has worsened. How is this diagnosed? This condition is diagnosed based on your medical history and a physical exam. You may also have other tests, including: Urine tests. Blood tests. Tests for STIs (sexually transmitted infections). If you have had more than one UTI, a cystoscopy or imaging studies may be done to determine the cause of the infections. How is this treated? Treatment for this condition includes: Antibiotic medicine. Hcxh-vnd-femgpgf medicines to treat discomfort. Drinking enough water to stay hydrated. If you have frequent infections or have other conditions such as a kidney stone, you may need to see a health care provider who specializes in the urinary tract (urologist). In rare cases, urinary tract infections can cause sepsis. Sepsis is a life- threatening condition that occurs when the body responds to an infection. Sepsis is treated in the hospital with IV antibiotics, fluids, and other medicines. Follow these instructions at home: Medicines Take kflg-qsf-wbaxely and prescription medicines only as told by your health care provider. If you were prescribed an antibiotic medicine, take it as told by your health care provider. Do notstop using the antibiotic even if you start to feel better. General instructions Make sure you: ?Empty your bladder often and completely. Do not hold urine for long periods of time. ?Empty your bladder after sex. ?Wipe from front to back after urinating or having a bowel movement if you are female. Use each tissue only one time when you wipe. Drink enough fluid to keep your urine pale yellow. Keep all follow-up visits. This is important. Contact a health care provider if: Your symptoms do not get better after 1 2 days. Your symptoms go away and then return. Get help right away if: You have severe pain in your back or your lower abdomen. You have a fever or chills. You have nausea or vomiting. Summary A urinary tract infection (UTI) is an infection of any part of the urinary tract, which includes the kidneys, ureters, bladder, and urethra. Most urinary tract infections are caused by bacteria in your genital area. Treatment for this condition often includes antibiotic medicines. If you were prescribed an antibiotic medicine, take it as told by your health care provider. Do notstop using the antibiotic even if you start to feel better. Keep all follow-up visits. This is important. This information is not intended to replace advice given to you by your health care provider. Make sure you discuss any questions you have with your health care provider. Document Revised: 05/17/2021 Document Reviewed: 05/17/2021 [employer] Patient Education 2022 [employer] Follow Up Care 05/08/2024 07:16:07 With:Yarelis Mcghee Address: [address] [place] [phone] (1) When:05/11/2024 09:31:54 Comments:Call the office of your primary care doctor to arrange for follow-up within the above-stated timeframe. Follow-up with your primary care doctor about this ED visit. You should review your labs, imaging, and diagnoses from this ED visit with your primary care physician. There are occasionally non-emergent findings that require additional follow-up after your ED visit. If you were prescribed medications you should discuss possible side-effects and drug interactions with your pharmacist. Call 911 or go to the nearest Emergency Department if you develop any new or worsening symptoms. [facility]07-21-2024 NoteED Patient Education Note Neurology Vertigo Vertigo is the feeling that you or your surroundings are moving when they are not. This feeling cancome and go at any time. Vertigo often goes away on its own. Vertigo can be dangerous if it occurs while you are doing something that could endanger yourself or others, such as driving or operating machinery. Your health care provider will do tests to try to determine the cause of your vertigo. Tests will also help your health care provider decide how best to treat your condition. Follow these instructions at home: Eating and drinking ? Dehydration can make vertigo worse. Drink enough fluid to keep your urine pale yellow. ? Do not drink alcohol. Activity ? Return to your normal activities as told by your health care provider. Ask your health care provider what activities are safe for you. ? In the morning, first sit up on the side of the bed. When you feel okay, stand slowly while you hold onto something until you know that your balance is fine. ? Move slowly. Avoid sudden body or head movements or certain positions, as told by your health care provider. ? If you have trouble walking or keeping your balance, try using a cane for stability. If you feel dizzy or unstable, sit down right away. ? Avoid doing any tasks that would cause danger to you or others if vertigo occurs. ? Avoid bending down if you feel dizzy. Place items in your home so that they are easy for you to reach without bending or leaning over. ? Do not drive or use machinery if you feel dizzy. General instructions ? Take aznx-uhx-cjutnuz and prescription medicines only as told by your health care provider. ? Keep all follow-up visits. This is important. Contact a health care provider if: ? Your medicines do not relieve your vertigo or they make it worse. ? Your condition gets worse or you develop new symptoms. ? You have a fever. ? You develop nausea or vomiting, or if nausea gets worse. ? Your family or friends notice any behavioral changes. ? You have numbness or a prickling and tingling sensation in part of your body. Get help right away if you: ? Are always dizzy or you faint. ? Develop severe headaches. ? Develop a stiff neck. ? Develop sensitivity to light. ? Have difficulty moving or speaking. ? Have weakness in your hands, arms, or legs. ? Have changes in your hearing or vision. These symptoms may represent a serious problem that is an emergency. Do not wait to see if the symptoms will go away. Get medical help right away. Call your local emergency services (911 in the [place] Do not drive yourself to the hospital. Summary ? Vertigo is the feeling that you or your surroundings are moving when they are not. ? Your health care provider will do tests to try to determine the cause of your vertigo. ? Follow instructions for home care. You may be told to avoid certain tasks, positions, or movements. ? Contact a health care provider if your medicines do not relieve your symptoms, or if you have a fever, nausea, vomiting, or changes in behavior. ? Get help right away if you have severe headaches or difficulty speaking, or you develop hearing or vision problems. This information is not intended to replace advice given to you by your health care provider. Make sure you discuss any questions you have with your health care provider. Document Revised: 09/04/2021 Document Reviewed: 09/04/2021 [employer] Patient Education ? 2022 [employer] Obstetrics and Gynecology Urinary Tract Infection, Adult A urinary tract infection (UTI) is an infection of any part of the urinary tract. The urinary tractincludes the kidneys, ureters, bladder, and urethra. These organs make, store, and get rid of urinein the body. An upper UTI affects the ureters and kidneys. A lower UTI affects the bladder and urethra. What are the causes? Most urinary tract infections are caused by bacteria in your genital area around your urethra, where urine leaves your body. These bacteria grow and cause inflammation of your urinary tract. What increases the risk? You are more likely to develop this condition if: ? You have a urinary catheter that stays in place. ? You are not able to control when you urinate or have a bowel movement (incontinence). ? You are female and you: ? Use a spermicide or diaphragm for control. ? Have low estrogen levels. ? Are . ? You have certain genes that increase your risk. ? You are sexually active. ? You take antibiotic medicines. ? You have a condition that causes your flow of urine to slow down, such as: ? An enlarged prostate, if you are male. ? Blockage in your urethra. ? A kidney stone. ? A nerve condition that affects your bladder control (neurogenic bladder). ? Not getting enough to drink, or not urinating often. ? You have certain medical conditions, (more content not included)...[facility]02-14-2024 Telephone encounter Note* Telephone Encounter - JESSICA Hunt - 12/02/2023 10:41 AM EST Pt notified of wellness lab results and low tsh, t3 and t4 labs ordered for her as well. Pt states she will follow up with her primary care physician, DR Mcghee in next few weeks. She denies any symptoms at this time [facility] [id number] Miscellaneous Notes* Telephone Encounter - JESSICA Hunt - 12/02/2023 10:41 AM EST Pt notified of wellness lab results and low tsh, t3 and t4 labs ordered for her as well. Pt states she will follow up with her primary care physician, DR Mcghee in next few weeks. She denies any symptoms at this time documented in this encounterMer[facility] [id number] History of Present illness Narrative* JESSICA Hunt - 11/25/2023 9:00 AM EST Reason for Appointment: Patient ID: Chloe Agarwal [...] KNEE SURGERY Bilateral Left: 2005; Right: 2015 [place] LAPAROSCOPIC APPENDECTOMY 12/04/2017 [place] REMOVAL OF KIDNEY STONE 2008 Allergies Allergen [...] nursing note reviewed. Exam conducted with a funeral car driver present. Vitals: Estimated body mass index is [...] behalf of: JESSICA Hunt documented in this encounterMercy Hospital [id number] Evaluation + Plan note Extracted from: Title:Pain Managment Follow up Author:Vicky Adams [...] PM Scheduled Provider:Willie Kaur MD Location[facility] [place] Appointment Type:Cardiology Follow Up (FT) [facility]01-08-2024 Evaluation + Plan noteExtracted from: Title:Pain Managment Follow up Author:Vciky Adams Date:10/26/23 Impression and Plan Patient is [...] PM Scheduled Provider:Vicky Castillo PA-C Location:.[facility] Appointment Type:Pain Management - Follow Up (FT) [facility]12-20-2023 Evaluation + Plan noteExtracted from: Title:Right [...] AM Scheduled Provider:Vicky Castillo PA-C [facility] App[facility] Type:Pain Management - Follow Up (FT) Appointment Date:11/17/2023 11:30:00 AM Scheduled Provider:Landon DOUGLAS MD Location[facility] Appointment Type:Cardiology Follow Up (FT) [facility]12-20-2023 Note [id number]2023 NoteDiagnosis: M54.16 Lumbar radiculopathy Procedure: [...] and agrees to comply to currently prescribed/recommended therapies.[facility] Comment on above:Result Comment: Electronically Signed By: Claudio Monroe DO\.br\Date and Time Signed: 10/07/23 09:54 [id number] Evaluation + Plan note Extracted from: Title:FUV [...] Location:.[facility] Appointment Type:Cardiology Follow Up (FT) [facility]08-21-2023 Evaluation + Plan noteExtracted from: Title:Pain [...] Clinic Appointment Type:Cardiology ED Follow Up (FT) [facility]08-18-2023 Evaluation + Plan noteExtracted from: Title:ED Note Author:Prasad Avalos DO Date:05/19 06/10 Dizziness (R42: Dizziness an d giddiness) Hypertension (I10: Essential (primary) hypertension) Orders: losartan, 50 mg = 1 tab(s), Oral, Daily, X 30 day(s), # 30 tab(s), Refills(s) 0, Pharmacy: [id number], 152.4, cm, 06/05/23 8:54:00 EDT, Height/Length [...] AM Scheduled Provider:Vicky Castillo PA-C Location:[facility] [place] Appointment Type:Pain Management - Follow Up (FT) Appointment Date:07/06/2023 11:00:00 AM Scheduled Provider:Landon DOUGLAS MD Location:[facility] Appointment Type:Cardiology ED Follow Up (FT) [facility]08-18-2023 Hospital Discharge instructions Follow Up Care 06/05/2023 08:40:51 With:Yarelis Mcghee Address: [address] [place], [place] [id number] Business (1) When:Within 3 Day(s) [facility]07-17-2023 Evaluation + Plan noteExtracted from: Title:Pain [...] Date:06/08/2023 08:15:00 AM Scheduled Provider:Vicky Castillo PA-C Location:[facility] Appointment Type:Pain Management - Follow Up (FT) [facility]06-16-2023 Evaluation + Plan noteExtracted from: Title:ANES Post-operative Note - General Author: Lb Wu Jr., DO Date:04/03/23 Plan Transfer/Discharge: Transfer/Discharge Discharge when meets criteria ( From PACU to Ambulatory Surgery Unit, and To home ). Extracted from: Title:ANES Pre-operative Note - Endo Author:Lb Melendez Jr., DO Date:04/03/23 Plan [place] [employer] Anesthesiologists (ASA) physical status classification: Class III. Anesthetic Preoperative Plan: Anesthesia General, and -TIVA. Future Appointments Appointment Date:04/07/2023 11:00:00 AM Scheduled Provider:Demar Trammell MD Location:[facility] Appointment Type:Pain Management - Follow Up (FT) Appointment Date:04/28/2023 09:00:00 AM Scheduled Provider:Vicky LAST CNP Location[facility] Appointment Type:Cardiology Follow Up (FT) [facility]06-16-2023 Hospital Discharge instructions Patient Education 04/03/2023 [...] unsweetened, w/added ascorbic acid 1 cup 0.5 [place] 1 cup 0.7 Vegetables Cooked Green beans 1 cup 4.0 Carrots 1/2 cup sliced 2.3 Peas 1 cup 8.8 Potato (baked, with skin) 1 medium potato 3.8 Raw [place] (with peel) 1 cucumber 1.5 Lettuce 1 [...] 8.7 Peanuts 1/2 cup 7.9 Chart from [facility] 2013. SEEK IMMEDIATE MEDICAL CARE [...] Nutrient Database for Standard Reference. Available at http://www.Oligomerix.usda.gov/fnic/foodcomp/search/. Information adapted from: [facility] Patient Information 2009 [employer]. [facility] 2012 http://www.[employer] Impressions/contents/kwuiuwvmwohg-jomwzgn-dvblev-the-basics 04/03/2023 10:24:14 Colonoscopy, Care After Surgery [place] (CUSTOM) Colonoscopy Care After Surgery Please read the instructions outlined below and refer to this sheet in the next few weeks. These discharge instructions provide you with general information on caring for [facility] Your doctor may also give you [...] reduce GERD symptoms. Medicines. These may include: ?Kzzo-bui-cvsmfhv antacids. ?Medicines that make your stomach empty [...] may include: ?Fatty foods, like fried foods. ?[place] fruits, like oranges or lemon. ?Other foods [...] Do not drink alcohol. General instructions Take qzxn-bid-mbsygaz and prescription medicines only as told by [...] provider. Document Revised: 08/19/2022 Document Reviewed: 09/05/2021 [employer] Patient Education 2022 [employer] Inc. 04/03/2023 10:24:03 Endoscopy, Care After Procedure [facility]) Endoscopy Care After Procedure Please read the instructions outlined below and refer to this sheet in the next few weeks. These discharge instructions provide you with general information on caring for [facility] Your doctor may also give you specific [...] 05/19/2005 Document Re-Released: 03/29/2007 ExitCare Patient Information [employer]. Follow Up Care 02/23/2023 10:35:27 With:Michael ALBRIGHT Address: [address] [place], [place] [id number] [facility] (1) When:2 weeks [facility]05-08-2023 Evaluation + Plan noteExtracted from: Title:NPV Author:Demar [...] Appointments Appointment Date:04/03/2023 10:30:00 AM Scheduled Provider: Location:[facility] Appointment Type:Surgery FT Appointment Date:04/28/2023 09:00:00 AM Scheduled Provider:Vicky LAST CNP Location:[facility] Appointment Type:Cardiology Follow Up (FT) [facility]12-21-2021 Hospital Discharge instructions Follow Up Care 10/08/2021 14:10:47 With:Landon Douglas MD Address: [facility] [place] [phone] When: Unknown [facility] Future Appointments Appointment Date:11/05/2022 11:30:00 AM Scheduled Provider:Landon Douglas MD Location:[facility] Appointment Type:Cardiology Follow Up (FT) Future Scheduled Tests Laboratory* Lipid Panel 09/05/21 Radiology* Echo Transthoracic Complete 09/29/22 [facility] Future Appointments Appointment Date:11/05/2022 11:30:00 AM Scheduled Provider:Landon Douglas MD Location:[facility] Appointment Type:Cardiology [facility] ([facility] Future Appointments Appointment Date:02/23/2023 12:30:00 PM Scheduled Provider:Demar Trammell MD Location:[facility] Appointment Type:Pain Management - New (FT) Appointment Date:04/28/2023 09:00:00 AM Scheduled Provider:Vicky LAST CNP Location:[facility] Appointment Type:Cardiology Follow Up (FT) [facility] [place] Evaluation + Plan note Future Appointments Appointment Date:04/03/2023 10:30:00 AM Scheduled Provider: Location:[facility] Appointment Type:Surgery FT Appointment Date:04/07/2023 11:00:00 AM Scheduled Provider:Demar Trammell MD Location:[facility] Appointment Type:Pain Management - Follow Up (FT) Appointment Date:04/28/2023 09:00:00 AM Scheduled Provider:Vicky LAST CNP Location:[facility] Appointment Type:Cardiology [facility] Future Appointments Appointment Date:04/20/2023 02:15:00 PM Scheduled Provider:Demar Trammell MD Location:[facility] [place] Appointment Type:Pain Management - Office Injection (FT) Appointment Date:04/28/2023 09:00:00 AM Scheduled Provider:Vicky LAST CNP Location:[facility] Appointment Type:Cardiology Follow Up (FT) Appointment Date:05/04/2023 09:00:00 AM Scheduled Provider:Vicky Castillo PA-C Location:[facility] [place] Appointment Type:Pain Management - Follow Up (FT) General Surgery [employer] Evaluation + Plan note Future Appointments Appointment Date:04/28/2023 09:00:00 AM Scheduled Provider:Vicky LAST CNP Location:[facility] Appointment Type:Cardiology Follow Up (FT) Appointment Date:05/04/2023 09:00:00 AM Scheduled Provider:Vicky Castillo PA-C Location:[facility] [place] Appointment Type:Pain Management - Follow Up [facility] Future Appointments Appointment Date:05/04/2023 09:00:00 AM Scheduled Provider:Vicky Castillo PA-C Location:[facility] [place] Appointment Type:Pain Management - Follow Up ([facility] Future Appointments Appointment Date:07/14/2023 09:30:00 AM Scheduled Provider:Vicky LAST CNP Location[facility] Appointment Type:Cardiology [facility] ([facility] Future Appointments Appointment Date:11/17/2023 11:30:00 AM Scheduled Provider:Landon DOUGLAS MD Location:[facility] Appointment Type:Cardiology Follow Up (FT) Appointment Date:11/20/2023 01:15:00 PM Scheduled Provider:Vicky Castillo PA-C Location:[facility] [place] Appointment Type:Pain Management - Follow Up (FT) [facility] Future Appointments Appointment Date:11/20/2023 01:15:00 PM Scheduled Provider:Vicky Castillo PA-C Location:[facility] [place] Appointment Type:Pain Management - Follow Up (FT) Appointment Date:12/14/2023 10:45:00 AM Scheduled Provider:Barry Husain MD Location:[facility] Appointment Type:Pulmonary New Patient (FT) Appointment Date:12/18/2023 01:45:00 PM Scheduled Provider:Willie Kaur MD Location[facility] [place] Appointment Type:Cardiology Follow Up ([facility]) [facility] Future Appointments Appointment Date:08/08/2024 08:15:00 AM Scheduled Provider:Claudio Monroe DO Location[facility] Appointment Type:Pain Management - Follow Up (FT) Appointment Date:01/12/2025 09:30:00 AM Scheduled Provider:Lokesh Mcqueen PA-C Location:[facility] Appointment Type:Cardiology Follow Up (FT) [facility] Evaluation + Plan note Future Appointments Appointment Date:01/12/2025 09:30:00 AM Scheduled Provider:Lokesh Mcqueen PA-C Location:[facility] Appointment Type:Cardiology Follow Up (FT) Future Scheduled Tests Radiology* CT Spine Lumbar w/ Contrast 08/15/24 [facility] Evaluation note* Diagnosis Well woman exam with routine gynecological exam Routine gynecological examination Breast cancer screening by mammogram Other osteoporosis, unspecified pathological fracture presence ([facility]) Restless legs Restless legs syndrome (RLS) Well woman exam Routine general medical examination at a health care facility [facility] Diagnosis Pes valgus, acquired, right- Primary Pes valgus, acquired, left Gastrocnemius equinus of right lower extremity Gastrocnemius equinus of left lower extremity Pain in both feet Cramping of feet Cramp of limb Bilateral leg cramps 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 documented [facility] this [facility] Narrative No data available for this section [facility] No data available for this section [facility] No data available for this section [facility] Summary Purpose Family History No Family [...] section and content) DATE CREATED AUTHOR 04/15/2018 [facility] DATE CREATED AUTHOR AUTHOR'S ORGANIZ ATION 12/02/2021 [facility] DATE CREATED AUTHOR AUTHOR'S ORGANIZ ATION 03/04/2023 [facility] DATE CREATED AUTHOR AUTHOR'S ORGANIZ ATION 05/10/2024 [facility] DATE CREATED AUTHOR AUTHOR'S ORGANIZ ATION 07/17/2024 [facility] DATE CREATED AUTHOR AUTHOR'S ORGANIZ ATION 08/12/2024 [facility] DATE CREATED AUTHOR AUTHOR'S ORGANIZ ATION 08/12/2024 [facility] EPIC DATE CREATED AUTHOR AUTHOR'S ORGANIZ ATION 08/30/2024 [facility] Care Team (unrecognized sect ion and content) [employer] Supervisor Relationship Specialty Start Date End Date Yarelis Mcghee MD [address] [place] [phone] PCP - General Family Medicine 05/21/23 [employer] Super[employer] Relationship Specialty Start Date End Date Yarelis Mcghee MD [address] [place] [address] PCP - General Family Medicine 05/21/23 [employer] Supervisor Relationship Specialty Start Date End Date Yarelis Mcghee MD [address] [place] [address] PCP - General Family Medicine 05/21/23 [employer] Supervisor Relationship Specialty Start Date End Date Yarelis Mcghee MD [address] [place] [address] PCP - General Family Medicine 05/21/23 [employer] Supervisor Relationship Specialty Start Date End Date Yarelis Mcghee MD [address] [place] [address] PCP - General Family Medicine 05/21/23 [employer] Supervisor Relationship Specialty Start Date End Date Yarelis Mcghee MD [address] [place] [address] PCP - General Family Medicine 05/21/23 Reason for Visit (unrecogniz ed section and content) Reason Comments Well Women Visit Reason Comments Foot Pain Chloe Agarwal is a 68 y.o. female who presents with concerns of redness on the bottom, pain, leg cramps. Pain is worse when laying down, toes curl and pain shoots up her leg. SS 7.5 FOR RECORDS PERTAINING TO PATIENTS WHO ARE [...] BE BASED ON THE PRIMARY CLINICAL RECORDS. [facility] [employer] [facility]. provides no warranty or guarantee of the accuracy or completeness of information in this document.
[2024-09-02] MEDS: LIDOCAINE HCL 10 ML, SODIUM BICARBONATE 1 MEQ INJ (09:20)
--- NOTE | 2024-09-02 11:37 | PC.NURSE ---
08/30/24 Pt instructed on procedure , date, time, and prep.
== END 2024-09-02 09:45 | disposition home or self-care (01) ==
LOC: US 08:16
PROVIDERS: Radiology Diagnostic Radiology; PCP Family Medicine
DX: E04.1 Nontoxic single thyroid nodule (principal)
CPT/HCPCS: 10005; 88173

== ENCOUNTER 2024-11-09 08:36 | Outpatient (OUT) | payer MEDICARE, SELFPAY ==
--- OUTSIDE RECORDS SUMMARY | 2024-11-09 08:51 | XMS_ITS | CCD ---
Author Organization [facility] CliniSymo Care Team Providers Care Electrical Engineering Drafting Officer Name Role Phone Adryan Yoon Unavailable Unavailable ClevelandestellaAdryan jack Unavailable Unavailable YARELIS MCGHEE Unavailable Unavailable Fernie Sandoval Unavailable Unavailable Yarelis Mcghee Primary Care Physician [phone] DR RANGEL Admitting Unavailabl e [...] Primary Care Provider Nelson Solares Attending Unavailable Demar Trammell Admitting Unavailable Demar Trammell Attending Unavailable Cry, Yarelis Referring Unavailable Landon DOUGLAS Admitting Unavailable Landon DOUGLAS Attending Unavailable NONE, XXXX Referring Unavailable Willei Kaur Attending Unavaila ble NONE, XXXX Referring Unavailable Willie Kaur Attending Unavaila ble NONE, XXXX Referring Unavailable Claudio Monroe Admitting Unavailable Claudio Monroe Attending Unavailable Claudio Monroe Referring Unavailable Vicky Castillo Admitting Unavailable Vicky Castillo Attending Unavailable Nelson Solares Attending Unavailable HusainBarry anderson GRuba Attending Unavailable Husain Basebartolome GRuba Referring Unavailable Husain Basem GRuba Admitting Unavailable Husain Basem GRuba Attending Unavailable Landon DOUGLAS Referring Unavailable FRANCO Castillo Admitting Unavailabl e Anna, Vicky Attending Unavailable Yarelis Mcghee Referring Unavailable FRANCO Castillo Vicky Admitting Unavailabl e Castillo, Vicky Attending Unavailable Yarelis Mcghee Referring Unavailable ANTIONETTE YANG Attending Unavailable SYDNIE VILLALOBOS Attending Unavailable SYDNIE VILLALOBOS Attending Unavailable SYDNIE VILLALOBOS Attending Unavailable Yarelis Mcghee MD Primary Care Provider [phone] NON STAFF Attending Provider Unavailable NON STAFF Attending Unavailable NON STAFF Admitting Unavailable Yarelis Mcghee Primary Care Unavailable Claudio Monroe Admitting Unavailable Claudio Monroe Attending Unavailable SAM KAISER Attending Unavailable SAM KAISER Referring Unavailable SAM KAISER Admitting Unavailable Claudio Monroe Admitting Unavailable Claudio Monroe Attending Unavailable Yarelis Mcghee Referring Unavailable Lokesh Mcqueen Admitting Unavailable Lkoesh Mcqueen Attending Unavailable NONE, XXXX Referring Unavailable Allergies Allergy Classification Reported Allergen(s) Allergy Type Date of Onset Reaction(s) Facility (1 source) Sulfonamide; Translations: [sulfonamide] Propensity to adverse reactions to drug (disorder) [facility] Repository (20 sources) Sulfonamides (Antibiotic); Translations: [sulfa drugs] Drug allergy unknown [facility] (20 sources) Lisinopril; Translations: [lisinopril] Drug Allergy Coughing - function (qualifier value) [facility] (1 source) Sulfonamides (Antibiotic) Drug allergy (disorder) [facility] Repository (20 sources) gabapentin; Translations: [gabapentin] Drug Allergy 3 Headache (finding), Headache [facility] (9 sources) Lisinopril Propensity to adverse reactions 3 [facility] (9 sources) Sulfonamides (Antibiotic) Drug Allergy 3 [facility] (5 sources) Baclofen; Translations: [baclofen] Drug Allergy Hand pain (finding), Menopausal flushing (finding), Bilateral weakness of upper limbs, Weakness of bilateral lower limb, Numbness of limbs (finding) [facility] (5 sources) DULoxetine; Translations: [duloxetine] Drug Allergy Vomiting (disorder) [facility] Medications Current Medications Medication Drug Class(es) [...] week, Prophylaxis Start Date: 02/23/23 Status: Ordered amLODIPine 5 mg oral tablet (1 source) Dihydropyridine Calcium Channel Hermilo Start: 10-05-2024 take 1 tablet by mouth once daily amLODIPine 5 mg Tab 5 mg = 1 tab(s), Oral, Daily, # 30 tab(s), Refills(s) 2, Pharmacy: [facility], 152, cm, 10/05/24 11:36:00 EST, Height/Length Dosing, 75.8, kg, 10/05/24 11:40:00 EST, Weight Dosing Start Date: 10/05/24 Status: Ordered cephalexin 500 mg oral capsule (1 source) Cephalosporin Antibacterial Start: 05-08-2024 End: 05-13-2024 take 1 capsule by mouth every twelve hours Keflex 500 mg Cap 500 mg = 1 cap(s), Oral, q12hr, X 5 day(s), # 10 cap(s), Refills(s) 0, Pharmacy: [facility], 152, cm, 05/08/24 7:24:00 EDT, Height/Length Dosing, 77.2, kg, 07/21/24 7:33:00 EDT, Weight Dosing Start Date: 05/08/24 Stop Date: 05/13/24 Status: Ordered gabapentin 300 mg oral capsule (8 sources) Anti-epileptic Agent Start: 05-04-2023 End: 11-25-2023 gabapentin 300 mg Cap 300 mg = 1 cap(s), Oral, BID, start with once a day for a week. If doing ok can increase to BID, # 60 cap(s), Refills(s) 0, Pharmacy: [facility], 152, cm, 05/04/23 8:55:00 EDT, Height/Length Dosing, 72.6, kg, 05/04/23 8:55:00 EDT, Weight Dosing Start Date: 05/04/23 Status: Ordered hydroCHLOROthiazide 12.5 mg oral capsule (19 sources) Thiazide Diuretic Start: 11-17-2023 take 1 capsule by mouth once daily hydrochlorothiazide 12.5 mg Cap 12.5 mg = 1 cap(s), Oral, Daily, # 30 cap(s), Refills(s) 5, Pharmacy: [facility], 152, cm, 12/18/23 13:31:00 EST, Height/Length Dosing, 79.2, kg, 12/18/23 13:37:00 EST, Weight Dosing Start Date: 05/02/24 Status: Ordered linaclotide 0.072 mg oral capsule [...] day(s), # 9 tab(s), Refills(s) 0, Pharmacy: [facility], 152, cm, 05/08/24 7:24:00 EDT, Height/Length Dosing, 77.2, kg, 05/08/24 7:33:00 EDT, Weight Dosing Start Date: 05/08/24 Stop Date: 05/11/24 Status: Ordered losartan potassium 100 mg oral tablet (20 sources) Angiotensin 2 Receptor Hermilo Start: 07-13-2024 take 1 tablet by mouth at bedtime losartan 100 mg Tab 100 mg = 1 tab(s), Oral, Bedtime, # 90 tab(s), Refills(s) 3, Pharmacy: [facility], 152, cm, 07/13/24 15:04:00 EDT, Height/Length Dosing, 75, kg, 07/13/24 15:04:00 EDT, Weight Dosing Start Date: 07/13/24 Status: Ordered Start: 12-18-2023 take 1 tablet by herberth th at bedtime losartan 100 mg Tab 100 mg = 1 tab(s), Oral, Bedtime, # 90 tab(s), Refills(s) 3, Pharmacy: [facility], 152, cm, 12/18/23 13:31:00 EST, Height/Length Dosing, 79.2, kg, 12/18/23 13:37:00 EST, Weight Dosing Start Date: 12/18/23 Status: Ordered Start: 07-14-2023 take 1 tablet by herberth th at bedtime losartan 100 mg Tab 100 mg = 1 tab(s), Oral, Bedtime, # 90 tab(s), Refills(s) 1, Pharmacy: [facility], 152, cm, 07/14/23 9:26:00 EDT, Height/Length Dosing, 76.9, kg, 07/14/23 9:26:00 EDT, Weight Dosing Start Date: 07/14/23 Status: Ordered Start: 06-30-2023 End: 07-30-2023 take 1 tablet by mouth twice daily losartan 50 mg Tab 50 mg = 1 tab(s), Oral, BID, X 30 day(s), # 60 tab(s), Refills(s) 0, Pharmacy: [facility], 152, cm, 06/30/23 15:07:00 EDT, Height/Length Dosing, 77.5, kg, 06/30/23 15:07:00 EDT, Weight Dosing Start Date: 06/30/23 Stop Date: 07/30/23 Status: Ordered Start: 06-05-2023 End: 07-05-2023 take 1 tablet by mouth once daily losartan 50 mg Tab 50 mg = 1 tab(s), Oral, Daily, X 30 day(s), # 30 tab(s), Refills(s) 0, Pharmacy: [facility], 152.4, cm, 06/05/23 8:54:00 EDT, Height/Length Dosing, 73, kg, 06/05/23 8:54:00 EDT, Weight Dosing Start Date: 06/05/23 Stop Date: 07/05/23 Status: Ordered Start: 11-05-2022 End: 10-31-2023 take 1 tablet by mouth once daily Cozaar 25 mg Tab 25 mg = 1 tab(s), Oral, Daily, stopping Lisinopril Starting Cozaar, X 90 day(s), # 90 tab(s), Refills(s) 3, Pharmacy: [facility], 152, cm, 11/05/22 11:35:00 EST, Height/Length Dosing, 76, kg, 11/05/22 11:35:00 EST, Weight Dosing Start Date: 11/05/22 Stop Date: 10/31/23 Status: Ordered losartan (Cozaar ) 25 MG tablet Take 100 mg by mouth. Active magnesium oxide 400 mg oral tablet (7 sources) Start: 10-05-2024 take 1 tablet by mouth once daily magnesium oxide 400 mg Tab 400 mg = 1 tab(s), Oral, Daily, Refills(s) 0 Start Date: 10/05/24 Status: Ordered Start: 11-25-2023 End: 06-22-2024 take 1 tablet [...] dizziness, # 30 tab(s), Refills(s) 0, Pharmacy: [facility], 152, cm, 05/08/24 7:24:00 EDT, Height/Length [...] day(s), # 21 tab(s), Refills(s) 0, Pharmacy: [facility], 152, cm, 09/22/23 11:39:00 EST, Height/Length [...] Daily, # 180 tab(s), Refills(s) 3, Pharmacy: [facility], 152, cm, 07/13/24 15:04:00 EDT, Height/Length Dosing, 75, kg, 07/13/24 15:04:00 EDT, Weight Dosing Start Date: 07/13/24 Status: Ordered Start: 06-30-2023 End: 12-27-2023 take 1 tablet by mouth once daily metoprolol 50 mg ER Tab 50 mg = 1 tab(s), Oral, Daily, # 90 tab(s), Refills(s) 1, Pharmacy: [facility], 152, cm, 07/14/23 9:26:00 EDT, Height/Length Dosing, 76.9, kg, 07/14/23 9:26:00 EDT, Weight Dosing Start Date: 07/14/23 Status: Ordered Start: 11-14-2022 take 1 tablet by herberth th once daily metoprolol 25 mg ER Tab 25 mg = 1 tab(s), Oral, Daily, # 90 tab(s), Refills(s) 3, Pharmacy: [facility], 152, cm, 11/05/22 11:35:00 EST, Height/Length Dosing, 76, kg, 11/05/22 11:35:00 EST, Weight Dosing Start Date: 11/14/22 Status: Ordered Start: 10-08-2021 End: 10-03-2022 take 1 tablet by mouth once daily Toprol XL 25 mg Tab-ER 25 mg = 1 tab(s), Oral, Daily, X 90 day(s), # 90 tab(s), Refills(s) 3, Pharmacy: [facility], 152, cm, 10/08/21 13:49:00 EST, Height/Length [...] BID, # 120 tab(s), Refills(s) 0, Pharmacy: [facility], 152.4, cm, 04/01/21 7:20:00 EDT, Height/Length [...] BID, # 60 cap(s), Refills(s) 0, Pharmacy: [facility], 152, cm, 10/26/23 13:07:00 EST, Height/Length [...] QID, # 120 tab(s), Refills(s) 3, Pharmacy: [facility], 152, cm, 04/03/23 9:20:00 EDT, Height/Length [...] q8hr, # 12 tab(s), Refills(s) 0, Pharmacy: [facility], 152, cm, 05/08/24 7:24:00 EDT, Height/Length Dosing, 77.2, kg, 05/08/24 7:33:00 EDT, Weight Dosing Start Date: 05/08/24 Status: Ordered Completed/Discontinued Medications Medication Drug Class(es) Dates Sig (Normalized) Sig (Original) Adult Blood Pressure Monitor with Large Bicep Cuff (20 sources) Start: 04-28-2023 Adult Blood Pressure Monitor with Large Bicep Cuff Adult Blood Pressure Monitor with Large Bicep Cuff, See Instructions, 1 EA, 0, Check BP Daily Dx I10, Supply Start Date: 04/28/23 Status: Ordered baclofen 5 mg oral tablet (3 sources) gamma-Aminobutyric Acid-ergic Agonist Start: 07-06-2024 End: 08-05-2024 take 1 tablet by mouth three times daily as needed for pain baclofen 5 mg oral tablet 5 mg = 1 tab(s), Oral, TID, take one tab three times a day as needed for pain/spasms, X 30 day(s), # 90 tab(s), Refills(s) 0, Pharmacy: [facility], 152, cm, 07/06/24 15:10:00 EDT, Height/Length Dosing, 74, kg, 07/06/24 15:10:00 EDT, Weight Dosing Start Date: 07/06/24 Stop Date: 08/05/24 Status: Ordered DULoxetine 30 mg delayed release oral capsule (3 sources) Serotonin and Norepinephrine Reuptake Inhibitor Start: 07-06-2024 End: 08-05-2024 take 2 tablets by mouth once daily at mealtime duloxetine 30 mg oral delayed release capsule 60 mg = 2 cap(s), Oral, Daily, take one tab in am for 1 week with food. Then take 2 tabs in am with food ongoing., X 30 day(s), # 60 cap(s), Refills(s) 0, Pharmacy: [facility], 152, cm, 07/06/24 15:10:00 EDT, Height/Length [...] osteoarthritis 02-23-2023 Episodic Other connective tissue disease (13 sources) Tendinitis 09-22-2023 Episodic Other connective tissue [...] Test Name Value Interpretation Reference Range Facility Heart and Vascular Office/ in Noteon 10-05-2024 Heart and Vascular Office/Clinic Note Heart and Vascular Office/Clinic Note Chief Complaint 1 month F/U History of Present Illness Pt is a 69 year old female with PMH of hypertension, GERD. Patient comes in for 3-month follow-up today. At last visit, patient saw Dr. Kaur at which time it looks like she was continued on current medications. However, after that visit she called in stating that HCTZ was causing her leg cramps and she stopped the medication. Amlodipine 5 mg was started as placed, but patient reports that she also stopped that due to leg cramps Patient has elevated blood pressure in the office today. She is compliant losartan and metoprolol, but is not taking any other medications for blood pressure at this time. Patient reports she has not taken her blood pressure at home because she gets anxious about causes her blood pressure to be higher. Patient reports that since having HCTZ, her leg cramps have completely resolved. Patient denies chest pain, shortness of breath, heart palpitations, dizziness/lightheadedness, and swelling in lower legs. Review of Systems PHQ Score Initial Depression Screen Score: 0 SCORE ROS - Provider Constitutional: no fever, no chills, no sweats, no weakness Respiratory: no shortness of breath, no cough Cardiovascular: no chest pain Neuro: no dizziness. no loss of consciousness Physical Exam Vitals & Measurements HR: 62(Peripheral) RR: 18 BP: 153/76 SpO2: 98% HT: 60 in HT: 152 cm WT: 75.8 kg WT: 167.11 lb BMI: 32.81 General: alert, no acute distress Cardiovascular: regular rate and rhythm, no murmur normal peripheral perfusion Respiratory: Lungs CTAB, respirations non labored Extremities: no edema left lower extremity. no edema right lower extremity Neurological: oriented x 4, LOC appropriate for age, speech normal Skin: Warm, dry, intact- no rash or concerning lesions Cardiac Diagnostics (10/27/2022 09:52 EST Echo Transthoracic Complete) Interpretation Summary Ejection Fraction = 55-60%. The left ventricular wall motion is normal. Grade I diastolic dysfunction, (abnormal relaxation pattern). Trace aortic regurgitation. There is Trace mitral regurgitation. There is trace tricuspid regurgitation. Right ventricular systolic pressure is 35 mmHg. [1] [facility] with Dr. Douglas on 09/17/2021: CONCLUSIONS: 1. Normal coronary arteries. 2. Low normal left ventricular function with a left ventricular ejection fraction of 50-55%. 3. Normal left ventricular end-diastolic pressure. 4. Systemic hypertension. RECOMMENDATIONS: At this point, the patient does not require any further evaluation of her coronary arteries as the source of her chest pain. Her symptoms are most likely gallbladder related as she was recently diagnosed with gallstones combined with her hiatal hernia and gastritis. Will discontinue her baby aspirin and Plavix. [2] Assessment/Plan 1. HTN (hypertension) (I10: Essential (primary) hypertension) Patient has history of hypertension. Her blood pressure is elevated in the office today. She is currently taking losartan and daily and metoprolol 100 mg ER daily. Patient was previously taking HCTZ and her blood pressure was well-controlled on the medication, however she states it is getting significantly grams from the med stop it. She was started on amlodipine shortly after and she also felt that the medication gave her leg cramps. After discussion with the patient, thinking that the HCTZ was still in her system and leg cramps were not coming from amlodipine. So patient is willing to start back up on amlodipine 5 mg daily to see if that helps her blood pressure and she will call if she has issues with the medication. If patient is still does have cramps from amlodipine, would avoid any other diuretics and potentially send in clonidine for patient Ordered: amlodipine, 5 mg = 1 tab(s), Oral, Daily, # 30 tab(s), Refills(s) 2, Pharmacy: [facility], 152, cm, 10/05/24 11:36:00 EST, Height/Length Dosing, 75.8, kg, 10/05/24 11:40:00 EST, Weight Dosing Follow-up with me in 3 months or sooner if needed Portions of this record may have been created with voice recognition artificial intelligence software, specifically [employer], [employer] and or [employer]. Substitutions may have occurred due to the [...] GERD - Gastro-esophageal reflux disease Sinus drainage Procedure (more content not included)... Normal [facility] Comment on above: Result Comment: Elec tronically Signed By: Richar GAMEZ, Lokesh Brito\.br\Date and Time Signed: 10/05/24 13:02 EST [place] 09-02-2024 L -- Specimen: [id number] Received: 09/05/24-1254 Status: VIRGILIO Cindy Num: [id number] Spec Type: Cytology Subm Dr: Ryan Vazquez MD Tissues: A FNA SLIDES NOPATH (RT THYROID) Procedures: Cyto Int and Re, PAPSTN/5 -- Age/ Patient Sex Location Account Attending Physician -- Chloe Agarwal 68/F [facility] [id number] NON STAFF -- SPEC NUM: [id number] RECD: 09/05/24 STATUS: VIRGILIO BOWEN NUM: [id number] MADHAV: 09/02/24 DR: Ryan Vazquez MD ENTERED: 09/05/24 [facility] DR: Heavenly Sanchez SPEC TYPE: Cytology DEPT: [facility] ENTERED BY: [id number] RECV BY: [id number] ORDERED: Cyto Int and Re, PAPSTN/5 ORDERED: Cyto Int and Re, PAPSTN/5 Pathological Diagnosis Nodule, right thyroid, fine needle aspiration:? Unsatisfactory for evaluation. Too few epithelial cells. [place]?Category?I Clinical Information US guided FNA Gross Description Received fixed in Cytolyt is 30 ml very pale pink clear fixed fluid for cytology said to have been obtained as Right thyroid nodule mid. ThinPrep preparations are prepared for microscopic examination. Also received are 4 spray fixed smeared slides and a Veracyte vial stored at -20 for microscopic examination. (TN/mn) CPT Codes 58857 -- -- Specimen: [id number] Received: 09/05/24-1255 Status: VIRGILIO Bowen Num: [id number] Spec Type: Cytology Subm Dr: Ryan Vazquez MD Tissues: A FNA SLIDES NOPATH (RT THYROID) Procedures: Cyto Int and Re, PAPSTN/5 -- Patient: Chloe Agarwal [id number] (Continued) -- Signed (signature on file) Rhonda Bauer MD 09/06/24 1815 Normal [facility] Spine Lumbar w/ Contrasto n 08-19-2024 [...] Landon Wilkinson MD Transcribed by: SCOTTY Technologist: SCOTTYR Technical Comments GFR (mL/min/1/73m2) >60 Contrast: Isovue 300 Contrast amount in ml's: 0 Normal [facility] Main OR PACU II Recordon Main OR PACU II Record Main OR PACU II Record PACU Phase II Document Type FT Summary Primary Physician: NONE, XXXX Finalized Date/Time: 08/19/24 14:04:04 Pt. Name: CHLOE AGARWAL /Sex: 1955 Female Med Rec #: [id number] Physician: SAM KAISER Financial #: [id number] Pt. Type: O Room/Bed: / Admit/Disch: 08/19/24 [...] Signed By: Monika Sales RN 08/19/24 14:04 Normal [facility] Main OR Preoperative Recordo n 08-19-2024 Main OR Preoperative Record Main OR Preoperative Record Holding Area Document Type FT Summary Primary Physician: WALE, XXXX Finalized Date/Time: 08/19/24 08:06:37 Pt. Name: CHLOE AGARWAL Arlen Lira./Sex: 1955 Female Med Rec #: [id number] Physician: SAM KAISER Financial #: [id number] Pt. Type: O Room/Bed: / Admit/Disch: 08/19/24 [...] 08/19/24 08:06 Monika Sales RN 08/19/24 08:06 [facility] XR Myelography Lumbosacralon 08-19-2024 XR [...] mGy = 43.30 DAP = 869.87 Normal [facility] Heart and Vascular Office/Cl inic [...] with voice recognition artificial intelligence software, specifically Bandtastic, Hemarina and or [employer]. Substitutions may have occurred due to the inherent limitations of voice recognition and artificial intelligence software. ATTESTATION: Documentation services were performed after patient or guardian consented to allow [employer] to record this visit. ASHLEIGH life insurance specialist and provider reviewed before signing. ASHLEIGH: Malinda Sands Follow-up No qualifying data available Problem List/Past Medical History Ongoing BMI 34.0-34.9,adult Chest pain due to GERD Chronic GERD Duodenogastric bile reflux Dysphagia Epigastric pain Gastritis H/O: osteoarthritis Hiatal hernia with gastroesophag (more content not included)... Normal [facility] Comment on above: Result Comment: Elec tronically Signed By: Vincent CANTRELL, Willie Tovar\.br\Date and Time Signed: 07/16/24 07:52 EDT\.br\Electronically Co-Signed By: Nanette Rodrigues\.br\Date and Time Co-Signed: 07/13/24 17:16 EDT XR Spine Lumbar Complete Inc giovana Readion 07-11-2024 XR Spine Lumbar Complete Including Bendi [...] in mGy = na DAP = na [facility] C Urineon 05-10-2024 Bacteria identified Cx Nom [...] Locations R1: This test was performed at: [facility], [address] [place] [address], [address] [place] [address], Normal [facility] Comment on above: Performed By: #### 2 [id number] #### [facility] [address] [place] [address] BB Draw & Holdon 05-08-2024 BB D&H Sample drawn for Blood Ba Normal [facility] Comment on above: Performed By: #### 1 [id number] #### [facility] [address] [place] [address] CBC w/ Auto Diffon Basophils/100 WBC (Bld) 1.1 % Normal 0.0-2.0 [facility] Comment on above: Performed By: #### 2 [id number] #### [facility] [address] [place] [address] Basophils/Leukocyte s Auto (Bld) [Pure # fraction] 0.1 E9/L Normal 0.0-0.2 [facility] Comment on above: Performed By: #### 2 [id number] #### [facility] [address] [place] [address] Eosinophils (Bld) [#/Vol] 0.1 E9/L Normal 0.0-0.5 [facility] Comment on above: Performed By: #### 2 [id number] #### [facility] [address] [place] [address] Eosinophils/100 WBC (Bld) 1.6 % Normal 0.0-8.0 [facility] Comment on above: Performed By: #### 2 [id number] #### [facility] [address] [place] [address] Erythrocyte distribution width (RBC) [Ratio] 14.1 % Normal 10.9-14.2 [facility] Comment on above: Performed By: #### 2 [id number] #### [facility] [address] [place] [address] Hematocrit (Bld) [Volume fraction] 38.2 % Normal 34.0-46.0 [facility] Comment on above: Performed By: #### 2 [id number] #### [facility] [address] [place] [address] Hemoglobin (Bld) [Mass/Vol] 13.9 g/dL Normal 12.0-16.0 [facility] Comment on above: Performed By: #### 2 [id number] #### [facility] [address] [place] [address] Lymphocytes (Bld) [#/Vol] 2.3 E9/L Normal 1.0-4.0 [facility] Comment on above: Performed By: #### 2 [id number] #### [facility] [address] [place] [address] Lymphocytes/100 WBC (Bld) 26.4 % Normal 14.0-50.0 [facility] Comment on above: Performed By: #### 2 [id number] #### [facility] [address] [place] [address] MCH (RBC) [Entitic mass] 32.6 pg Normal 27.0-34.0 [facility] Comment on above: Performed By: #### 2 [id number] #### [facility] [address] [place] [address] MCHC (RBC) [Mass/Vol] 36.3 g/dL High 31.4-36.0 [facility] Comment on above: Performed By: #### 2 [id number] #### [facility] [address] [place] [address] MCV (RBC) [Entitic vol] 89.9 fL Normal 80.0-100.0 [facility] Comment on above: Performed By: #### 2 [id number] #### [facility] [address] [place] [address] Monocytes (Bld) [#/Vol] 0.8 E9/L Normal 0.2-1.0 [facility] Comment on above: Performed By: #### 2 [id number] #### [facility] [address] [place] [address] Neutrophils (Bld) [#/Vol] 5.3 E9/L Normal 2.0-7.5 [facility] Comment on above: Performed By: #### 2 [id number] #### [facility] [address] [place] [address] Neutrophils/100 WBC (Bld) 61.6 % Normal 36.0-75.0 [facility] Comment on above: Performed By: #### 2 [id number] #### [facility] [address] [place] [address] Platelet 299.0 E9/L Normal 150.0-500. 0 [facility] Comment on above: Performed By: #### 2 [id number] #### [facility] [facility] [address] [place] [address] Platelet mean volume (Bld) [Entitic vol] 8.0 fL Normal 6.4-10.8 [facility] Comment on above: Performed By: #### 2 [id number] #### [facility] [address] [place] [address] RBC (Bld) [#/Vol] 4.3 E12/L Normal 4.3-5.9 [facility] Comment on above: Performed By: #### 2 [id number] #### [facility] [address] [place] [address] WBC corrected for nucl RBC Auto (Bld) [#/Vol] 8.6 E9/L Normal 4.0-11.0 [facility] Comment on above: Performed By: #### 2 [id number] #### [facility] [address] [place] [address] CHEMISTRYOrdered By: SYSTEM SYSTEM on 05-08-2024 Albumin [...] Sensitivity Troponin I Instructions For Use, [place], May 2018) Urea nitrogen [Mass/Vol] 22 mg/dL High 5 - 21 mg/dL [facility] Urea nitrogen/Creatinine [Mass ratio] 28 mg/mg High 10 - 20 [facility] CHEMISTRYOrdered By: Lab ROP User on 05-08-2024 Glucose [Mass/Vol] 111 mg/dL High 55 - 99 mg/dL [facility] POC Subsection Comment on above: Result Comment: Ovidio medrano RN/ POC Device SN [id number] Invalid Interpretation Code [facility] POC Subsection POC User ID [id number] 1 Invalid Interpretation Code [facility] POC Subsection POC Username CLAUS FRAZIER Invalid Interpretation Code [facility] POC Subsection CMPon 05-08-2024 Albumin [Mass/Vol] 4.4 g/dL Normal 3.3-5.0 [facility] Comment on above: Performed By: #### 2 [id number] #### [facility] [address] [place] [address] Albumin/Globulin (S) [Mass conc ratio] 1.5 Normal 1.1-2.2 [facility] Comment on above: Performed By: #### 2 [id number] #### [facility] [address] [place] [address] ALP [Catalytic activity/Vol] 59 Int._Unit/L Normal 21-98 [facility] Comment on above: Performed By: #### 2 [id number] #### [facility] [address] [place] [address] ALT No additional P-5'-P [Catalytic activity/Vol] 18 Int._Unit/L Normal 6-46 [facility] Comment on above: Performed By: #### 2 [id number] #### [facility] [address] [place] [address] Anion gap [Moles/Vol] 14 mmol/L Normal 6-16 [facility] Comment on above: Performed By: #### 2 [id number] #### [facility] [address] [place] [address] AST [Catalytic activity/Vol] 18 Int._Unit/L Normal 5-43 [facility] Comment on above: Performed By: #### 2 [id number] #### [facility] [address] [place] [address] Bilirubin [Mass/Vol] 1.1 mg/dL Normal 0.0-1.1 [facility] Comment on above: Performed By: #### 2 [id number] #### [facility] [address] [place] [address] Calcium [Mass/Vol] 9.9 mg/dL Normal 8.9-11.1 [facility] Comment on above: Performed By: #### 2 [id number] #### [facility] [address] [place] [address] Chloride [Moles/Vol] 103 mmol/L Normal 101-111 [facility] Comment on above: Performed By: #### 2 [id number] #### [facility] [address] [place] [address] CO2 [Moles/Vol] 26 mmol/L Normal 21-31 [facility] Comment on above: Performed By: #### 2 [id number] #### [facility] [address] [place] [address] Creatinine [Mass/Vol] 0.8 mg/dL Normal 0.5-1.3 [facility] Comment on above: Performed By: #### 2 132375 #### [facility] [address] [place] [address] Globulin (S) [Mass/Vol] 2.9 g/dL Normal 1.4-4.0 [facility] Comment on above: Performed By: #### 2 [id number] #### [facility] [address] [place] [address] Glucose [Mass/Vol] 112 mg/dL Normal 55-199 [facility] Comment on above: Performed By: #### 2 [id number] #### [facility] [address] [place] [address] Potassium [Moles/Vol] 3.7 mmol/L Normal 3.5-5.3 [facility] Comment on above: Performed By: #### 2 [id number] #### [facility] [address] [place] [address] Protein [Mass/Vol] 7.3 g/dL Normal 6.0-7.8 [facility] Comment on above: Performed By: #### 2 [id number] #### [facility] [address] [place] [address] Sodium [Moles/Vol] 139 mmol/L Normal 135-145 [facility] Comment on above: Performed By: #### 2 [id number] #### [facility] [address] [place] [address] Urea nitrogen [Mass/Vol] 22 mg/dL High 5-21 [facility] Comment on above: Performed By: #### 2 [id number] #### [facility] [address] [place] [address] Urea nitrogen/Creatinine [Mass ratio] 28 No Units High 10-20 [facility] Comment on above: Performed By: #### 2 [id number] #### [facility] [address] [place] [address] COAGULATIONOrdered By: Yissel Amos on 05-08-2024 aPTT Coag (PPP) [Time] 30.0 s Normal 25.1 - 36.5 second(s) [facility] Auto Coag Comment on above: Interpretive Data: P mikhailmeter 15 days - 4 weeks 1 - [...] the same coagulation reagent and instrumentation as [facility]. Currently there are no coagulation studies available worldwide for children to 14 days, and no normal ranges. Heparin therapeutic range (represented by Anti-Factor Xa activity of 0.2 - 0.4 U/mL) corresponds to PTT of 56.6 - 109.0 sec. INR Coag (PPP) [Relative time] 0.97 {INR} Invalid Interpretation Code [facility] Auto Coag Comment on above: Interpretive Data: I NR results are specifically intended to assess patients stabilized on long-term Anticoagulation therapy suggested INR s Less Intensive Anticoagulation 2.0 3.0 Conventional Range 3.0 4.5 PT Coag (PPP) [Time] 10.9 s Normal 9.4 - 12.5 second(s) [facility] Auto Coag Comment on above: Interpretive Data: [...] the same coagulation reagent and instrumentation as [facility]. Currently there are no coagulation studies available [...] Landon Wilkinson MD Transcribed by: SCOTTY Technologist: AO Normal [facility] Capillary Glucose POCon 04-19 Glucose [Mass/Vol] 111 mg/dL High 55-99 [facility] Comment on above: Result Comment: Ovidio medrano RN/ Performed By: #### 2 [id number] #### [facility] [address] [place] [address] ED Clinical Summaryon 2023 ED Clinical Summary ED Clinical Summary [address] [address] ED Clinical Summary Person Information Name: CHLOE AGARWAL Amie/[facility] Age: 68 Years : 1955 Sex: Female Language: Beninese PCP: Yarelis Mcghee MD Marital Status: Visit [...] 05/08/2024 09:45:49 05/08/2024 09:45:49 05/08/2024 09:45:49 ADDRESS: [address] [place] [phone] PHYS DOC NOTES: MEDICAL INFORMATION: Prescriptions Given: New Medications [facility], [address] [facility] [place] [place] [id number], [phone] cephalexin (Keflex 500 mg Cap) 1 Capsules [...] Tab) 2 Tablets By Mouth every day. [facility] Prescription (Adult Blood Pressure Monitor with Large [...] Follow up: With: Address: When: Yarelis Mcghee [address] [place] [address], [address] [place] [phone] Business (1) In 3 days 05/11/2024 Comments: Call the office of your primary care doctor to arrange for follow-up within the above-stated timeframe. Follow-up with your primary care doctor about this ED visit. You should rev (more content not included)... Normal [facility] ED Note-Physicianon 05-08-20 ED Note-Physician [...] under a lot of stress as her qmbcmd-kd-soi just and she has a to attend [...] malignant neopla (more content not included)... Normal [facility] Comment on above: Result Comment: Elec tronically Signed By: Nelson Solares DO\.br\Date and Time Signed: 05/08/24 11:48 EDT ED Patient Summaryon 024 ED Patient Summary ED Patient Summary [address] [address] Patient Discharge Instructions Person Information Name: CHLOE AGARWAL Age: 68 Years Arrival Date: 05/08/2024 07:15:15 Discharge Diagnosis: Acute UTI; Vertigo Primary Care Physician: Yarelis Mcghee MD Provider Information Primary Provider: Nelson Solares DO Advanced Manual Control Auger Press Operator:None The exam and treatment you received in the Emergency Department were for an urgent problem and are not intended as complete care. It is important that you follow up with a doctor, nurse practitioner, or physician?s speech correction assistant for ongoing care. If your symptoms [...] Follow-up Instructions: With: Address: When: Yarelis Mcghee [address] [place] [address], [address] [place] [phone] Business (1) In 3 days 05/11/2024 Comments: [...] opioids can be used to help relieve xlnhuinb-oa-oapffo pain and are often prescribed following a [...] opioids in (more content not included)... Normal [facility] HEMATOLOGYOrdered By: SYSTEM SYSTEM on [...] 05-08-2024 Magnesium [Mass/Vol] 2.2 mg/dL Normal 1.3-2.4 [facility] Comment on above: Performed By: #### 2 [id number] #### [facility] [address] [place] [address] PT & PTTon 05-08-2024 aPTT Coag (PPP) [Time] 30.0 second(s) Normal 25.1-36.5 [facility] Comment on above: Result Comment: [...] the same coagulation reagent and instrumentation as [facility]. Currently there are no coagulation studies available worldwide for children to 14 days, and no normal ranges. Heparin therapeutic range (represented by Anti-Factor Xa activity of 0.2 - 0.4 U/mL) corresponds to PTT of 56.6 - 109.0 sec. Performed By: #### 1 [id number] #### [facility] [address] [place] [address] INR Coag (PPP) [Relative time] 0.97 {INR} Invalid Interpretation Code [facility] Comment on above: Result Comment: INR results are specifically intended to assess patients stabilized on long-term Anticoagulation therapy suggested INR?s ?Less Intensive Anticoagulation? 2.0 ? 3.0 Conventional Range 3.0 ? 4.5 Performed By: #### 1 [id number] #### [facility] [address] [place] [address] PT Coag (PPP) [Time] 10.9 second(s) Normal 9.4-12.5 [facility] Comment on above: Result Comment: [...] the same coagulation reagent and instrumentation as [facility]. Currently there are no coagulation studies available worldwide for children to 14 days, and no normal ranges. Performed By: #### 1 [id number] #### [facility] [address] [place] [address] Troponin 0 Hr.on 05-08-2024 Troponin HS 6.20 pg/mL Low 10.10-27.1 0 [facility] Comment on above: Result Comment: The 95% CI (Confidence Interval) PPV (Positive Predictive Value) for myocardial infarction in females is 38 pg/mL, in males 51 pg/mL. The results should be used in conjunction with clinical conditions of myocardial infarction. (Access High Sensitivity Troponin I Instructions For Use, [place], May 2018) Performed By: #### 1 [id number] #### [facility] [address] [place] [address] UA with Cult Rflxon 05-08-20 24 Bacteria Auto Ql (U) Trace Normal Trace [facility] Comment on above: Performed By: #### 4 [id number] #### [facility] [address] [place] [address] Bilirubin Ql (U) Negative Normal Negative [facility] Comment on above: Performed By: #### 4 [id number] #### [facility] [address] [place] [address] Clarity (U) Clear Normal Clear [facility] Comment on above: Performed By: #### 4 [id number] #### [facility] [address] [place] [address] Color (U) Colorless Abnormal Yellow [facility] Comment on above: Result Comment: Micr oscopic readings are only performed on those samples that meet specific criteria set forth by [facility]. Performed By: #### 4 [id number] #### [facility] [address] [place] [address] Epithelial cells.squamous Auto (Urine sed) [#/Area] 0-2 Invalid Interpretation Code [facility] Comment on above: Performed By: #### 4 [id number] #### [facility] [address] [place] [address] Glucose Ql (U) Negative Normal Negative [facility] Comment on above: Performed By: #### 4 [id number] #### [facility] [address] [place] [address] Hemoglobin Auto test strip (U) [Mass/Vol] Negative Normal Negative [facility] Comment on above: Performed By: #### 4 [id number] #### [facility] [address] [place] [address] Ketones Auto test strip Ql (U) Negative Normal Negative [facility] Comment on above: Performed By: #### 4 [id number] #### [facility] [address] [place] [address] Leukocyte esterase Auto test strip Ql (U) 250 Danielle/uL Abnormal Negative [facility] Comment on above: Performed By: #### 4 [id number] #### [facility] [address] [place] [address] Mucus Auto Ql (U) Negative Normal Negative [facility] Comment on above: Performed By: #### 4 [id number] #### [facility] [address] [place] [address] Nitrite Auto test strip Ql (U) Negative Normal Negative [facility] Comment on above: Performed By: #### 4 [id number] #### [facility] [address] [place] [address] pH (U) 7.0 [pH] Invalid Interpretation Code 5.0-9.0 [facility] Comment on above: Performed By: #### 4 [id number] #### [facility] [address] [place] [address] Protein Ql (U) Negative Normal Negative [facility] Comment on above: Performed By: #### 4 [id number] #### [facility] [address] [place] [address] RBC Ql (U) 0-3 Normal 0-3 [facility] Comment on above: Performed By: #### 4 [id number] #### [facility] [address] [place] [address] Specific gravity (U) [Rel density] 1.008 Invalid Interpretation Code 1.005-1.03 0 [facility] Comment on above: Performed By: #### 4 [id number] #### [facility] [address] [place] [address] Urobilinogen (U) [Mass/Vol] Negative Normal Negative [facility] Comment on above: Performed By: #### 4 [id number] #### [facility] [address] [place] [address] WBC Auto (Urine sed) [#/Area] 6-15 Abnormal 0-5 [facility] Comment on above: Performed By: #### 4 [id number] #### [facility] [address] [place] [address] Type of Urine collection method Clean Catch Normal [facility] Comment on above: Performed By: #### 4 [id number] #### [facility] [address] [place] [address] URINALYSISOrdered By: SYSTEM SYSTEM on 05-08-2024 Bacteria Auto Ql (U) Trace /HPF Normal Trace/HPF [facility] UA Auto SS Bilirubin Ql (U) Negative Normal Negativemg /dL [facility] UA Auto SS Clarity (U) Clear (05/08/24 8:05 AM) Normal Clear [facility] UA Auto SS Color (U) Colorless 1 *ABN* (05/08/24 8:05 AM) Invalid Interpretation Code Yellow [facility] UA Auto SS Comment on above: Interpretive Data: M icroscopic readings are only performed on those samples that meet specific criteria set forth by [facility]. Epithelial cells.squamous Auto (Urine [...] AM) Invalid Interpretation Code 1.005 - 1.030 [facility] UA Auto SS Urobilinogen (U) [Mass/Vol] Negative Normal Negativemg /dL [facility] UA Auto SS WBC Auto (Urine sed) [#/Area] 6-15 graded/HPF Invalid Interpretation Code 0-5graded/ HPF [facility] UA Auto SS URINALYSISOrdered By: Nelson Solares on 05-08-2024 UA Spec Desc Clean Catch (05/08/24 8:05 AM) Normal [facility] UA Auto SS Work Phone: XR Chest [...] mGy = . DAP = . Normal [facility] eGFRon 05-08-2024 eGFR 81 mL/min/1.73 m2 Normal >=59 [facility] Comment on above: Order Comment: Order added by Discern Expert. Performed By: #### 1 [id number] #### [facility] [address] [place] [address] Heart and Vascular Office/Cl inic Noteon 01-17-2024 [...] She had blood work done by her legal instruments examiner at [facility]. Her cholesterol was low. She has been [...] before bed. I will obtain labs from [facility] to make sure she does not have abnormal electrolytes. 3. Sleep apnea. I will check with Dr. Husain regarding CPAP. Follow-up The patient will follow up in 6 months. Portions of this record may have been created with voice recognition artificial intelligence software, specifically [employer], [employer] and or [employer]. Substitutions may have occurred due to the inherent limitations of voice recognition and artificial intelligence software. ATTESTATION: Documentation services were performed after patient or guardian consented to allow [employer] to record this visit. ASHLEIGH life insurance specialist and provider reviewed before signing. ASHLEIGH: Phoebe Kandace Oseo. Follow-up No qualifying data available Problem List/Past Medical History Ongoing BMI 34.0-34.9,adult Chest pain due to GERD Chronic GERD Duodenogastric bile reflux Dysphagia Epigastric pain Gastritis H/O: osteoarthritis Hiatal hernia with gastroesophageal reflux HTN (hypertension) Osteoporosis Regurgitation of stomach contents Screenin (more content not included)... Normal [facility] Comment on above: Result Comment: Elec tronically Signed By: Willie Kaur MD\.br\Date and Time Signed: 01/17/24 10:22 EDT\.br\Electronically Co-Signed By: Florinda Maguire\.br\Date and Time Co-Signed: 12/18/23 16:08 EST [facility] 12-21-2023 Outside [facility] [id number] Normal [facility] Physician Orderon 12-21-2023 Physician Order [id number] Normal [facility] Ambulatory Visit Summaryon 0 12-18-2023 Ambulatory Visit Summary CHLOE AGARWAL Arlen :1955 Visit Date:12/18/2023 Ambulatory Visit Instructions Your Care Team Attending Physician - Vincent CANTRELL, Willie Tovar Primary Care Physician - Yarelis Mcghee MD Referring Physician - NONE, XXXX This Is Your Medications List [facility] Prescription (Adult Blood Pressure Monitor with Large [...] Tablets By Mouth At bedtime Pickup at [facility] Unchanged meloxicam (meloxicam 15 mg Tab) 1 Tablets By Mouth Every day Unchanged metoprolol (metoprolol 50 mg ER Tab) 2 Tablets By Mouth Every day Unchanged [facility] Prescription (Adult Blood Pressure Monitor with Large [...] Mouth 2 times a day Pharmacy Information [facility]: [address] [place], [place] [id number] [phone] Allergies gabapentin (Headache) lisinopril (Coughing) sulfa drugs [...] for choosing us for your care. Normal [facility] ALL THYROXINE (T4) FREEon Free T4 [Mass/Vol] 1.30 ng/dL 0.76 - 1.46 ng/dL [facility] ALL LIPID PROFILE (FASTING)o n 11-30-2023 CHOL HDL RATIO 3.0 [facility] Comment on above: 3.3 - 4.4 LOW RISK 4.4 - 7.1 AVERAGE RISK 7.1 - 11.0 MODERATE RISK >11.0 HIGH RISK Cholesterol [Mass/Vol] 177 mg/dL NINF - 200 mg/dL [facility] Cholesterol in HDL [Mass/Vol] 59 mg/dL 40 - 60 mg/dL [facility] Comment on above: > or =60 mg/dl - LOW CARDIOVASCULAR RISK <40 mg/dl - HIGH CARDIOVASCULAR RISK Magnesium [Mass/Vol] 96.8 mg/dL [facility] Comment on above: <100 mg/dl OPTIMAL 100-129 mg/dl NEAR OR ABOVE OPTIMAL 130-159 mg/dl BORDERLINE HIGH 160-189 mg/dl HIGH >190 mg/dl VERY HIGH Magnesium [Mass/Vol] 21.2 mg/dL [facility] Triglyceride [Mass/Vol] 106 mg/dL NINF - 150 mg/dL [facility] ALL THYROID STIM HORMONEon 0 11-30-2023 TSH Qn 0.028 m[IU]/L Low [facility] CMP (CMP) (FOR REMOTE FH C USE)on 11-30-2023 Albumin [Mass/Vol] 3.6 g/dL 3.4 - 5.0 g/dL [facility] ALBUMIN GLOBULIN RATIO 1.0 [facility] ALP [Catalytic activity/Vol] 62 U/L 46 - 116 U/L [facility] ALT [Catalytic activity/Vol] 23 U/L 14 - 59 U/L [facility] Anion gap [Moles/Vol] 12.6 mmol/L [facility] AST [Catalytic activity/Vol] 17 U/L 15 - 37 U/L [facility] Bilirubin [Mass/Vol] 1.2 mg/dL High 0.2 - 1.0 mg/dL [facility] Calcium [Mass/Vol] 9.1 mg/dL 8.5 - 10. 1 mg/dL [facility] Chloride [Moles/Vol] 102 mmol/L 98 - 107 mmol/L [facility] CO2 [Moles/Vol] 30.4 mmol/L 21.0 - 32.0 mmol/L [facility] Creatinine [Mass/Vol] 0.99 mg/dL 0.55 - 1.02 mg/dL [facility] GFR/1.73 sq M.predicted CKD-EPI (S/P/Bld) [Vol rate/Area] >60 60 - PINF [facility] Globulin (S) [Mass/Vol] 3.6 g/dL [facility] Glucose [Mass/Vol] 110 mg/dL High 74 - 106 mg/dL [facility] Potassium [Moles/Vol] 4.0 mmol/L 3.5 - 5.1 mmol/L [facility] Protein [Mass/Vol] 7.2 g/dL 6.4 - 8.2 g/dL [facility] Sodium [Moles/Vol] 141 mmol/L 136 - 145 mmol/L [facility] TBH EGFR-NON AF MALAGASY 56 Low 60 - PINF [facility] Urea nitrogen [Mass/Vol] 31.0 mg/dL High 7.0 - 18.0 mg/dL [facility] Urea nitrogen/Creatinine [Mass ratio] 31.3 mg/mg [facility] IGP,APTIMA HPV,AGE GDLNon AGE GDLN ACOG TESTING Note . [facility] Comment on above: TESTS RESULT FLAG UN ITS REF RANGE LAB Clinician Provided Cytology Information Source.............Cervix;Endocervix No. of containers..01 ThinPrep Vial Age Algo ACOG Micheal... Note 01 <21 or >65 or no age provided FLAG LEGEND: L-Low Normal,H-High Normal,LL-Alert Low,HH-Alert High <-Panic Low,>-Panic High,A-Abnormal,AA-Critical Abnormal Performed at: 01 =G [address] [address] Adelina Nunez MD, PAP IG (IMAGE GUIDED) Note . [facility] Comment on above: TESTS RESULT FLAG UN ITS REF RANGE LAB DIAGNOSIS: 02 NEGATIVE FOR INTRAEPITHELIAL LESION OR MALIGNANCY. Specimen adequacy: 02 Satisfactory for evaluation. Endocervical and/or squamous metaplastic cells (endocervical component) are present. Performed by: Monique Madsen, Offset Pressman (ASC) . 02 Note: Note 02 The Pap smear is a screening test designed to aid in the detection of premalignant and malignant conditions of the uterine cervix. It is not a diagnostic procedure and should not be used as the sole means of detecting cervical cancer. Both false-positive and false-negative reports do occur. Test Methodology: Note 02 The Tomorrowish(R) Insulation Worker Furnace Installer was unable to read this specimen. Therefore a manual review was performed. FLAG LEGEND: L-Low Normal,H-High Normal,LL-Alert Low,HH-Alert High <-Panic Low,>-Panic High,A-Abnormal,AA-Critical Abnormal Performed at: [address] [address] Adelina Nunez MD, Performed at: =G - [facility] [address] [id number] Visual Artist: Adelina Nunez MD, Phone: [phone] Performed at: - [facility] [id number] Visual Artist: Adelina Nunez MD, Phone: [phone] BRUSH-SPATULA CERVIX ENDOCERVIX [facility] No Panel Informationon 11-30 Interpretation and review of laboratory results Abnormal [facility] Consent for Treatmenton Consent for Treatment [id number]#[id number] Normal [facility] Consultation Noteon 11-20-19 24 Consultation [...] QID, # 120 tab(s), Refills(s) 3, Pharmacy: [facility], 152, cm, 04/03/23 9:20:00 EDT, Height/Length Dosing, 80, kg, 04/03/23 9:20:00 EDT, Weight Dosing Protonix 40 mg Tab-DR: 40 mg = 1 tab(s), Oral, BID, # 120 tab(s), Refills(s) 0, Pharmacy: [facility], 152.4, cm, 04/01/21 7:20:00 EDT, Height/Length Dosing, 85.5, kg, 04/01/21 7:20:00 EDT, Weight Dosing hydrochlorothiazide 12.5 mg Cap: 12.5 mg = 1 cap(s), Oral, Daily, # 30 cap(s), Refills(s) 6, Pharmacy: [facility], 152, cm, 11/17/23 11:29:00 EST, Height/Length Dosing, 79.6, kg, 11/17/23 11:29:00 EST, Weight Dosing losartan 100 mg Tab: 100 mg = 1 tab(s), Oral, Bedtime, # 90 tab(s), Refills(s) 1, Pharmacy: [facility], 152, cm, 07/14/23 9:26:00 EDT, Height/Length Dosing, 76.9, kg, 07/14/23 9:26:00 EDT, Weight Dosing pregabalin 25 mg Cap: 25 mg = 1 cap(s), Oral, BID, start with once a day for 3-5 days. If doing well can go to BID, # 60 cap(s), Refills(s) 0, Pharmacy: [facility], 152, cm, 10/26/23 13:07:00 EST, Height/Length [...] All Problems Chronic GERD / SNOMED CT 956207564 / Confirmed Unilateral primary osteoarthritis, right knee / SNOMED CT 6848935644 / Confirmed Gastritis / SNOMED CT 3158521 / Confirmed Vertigo / SNOMED CT 2605644359 / Confirmed BMI 34.0-34.9,adult / SNOMED CT 860942948 / Confirmed Regurgitation of stomach contents / SNOMED CT 278070347 / Confirmed Osteoporosis / SNOMED CT 292680821 / Confirmed HTN (hypertension) / SNOMED CT 1021389042 / Confirmed Dysphagia / SNOMED CT 78588217 / Confirmed Epigastric pain / SNOMED CT 496799179 / Confirmed Chest pain due to GERD / SNOMED CT 28991254 / Confirmed Screening for malignant neoplasm of colon / SNOMED CT 439749075 / Confirmed H/O: osteoarthritis / SNOMED CT 204593642 / Confirmed Hiatal hernia with gastroesophageal reflux / SNOMED CT 2848870002 / Confirmed Duodenogastric bile reflux / SNOMED CT 67995585 / Confirmed Sigmoid diverticulosis / SNOMED CT 5959151246 / Confirmed Tendonitis / SNOMED CT 44854954 / Confirmed Resolved: GERD - Gastro-esophageal reflux disease / SNOMED CT 2210323365 Resolved: Appendicitis / SNOMED CT 350224193 Resolved: Cough / SNOMED CT 47766998 Resolved: Sinus drainage / SNOMED CT 138823803 Canceled: GERD with apnea / SNOMED CT 9777074562 Objective Vital Signs 11/20/2023 13:11 EST Peripheral [...] extremity streng (more content not included)... [facility] Comment on above: Result Comment: Elec tronically Signed By: Vicky Castillo PA-C\.br\Date and Time Signed: 11/20/23 13:40 EST Office/Clinic Note-Physician on 11-20-2023 Office/Clinic Note-Physician [id number]#1.00TIFF [facility] Patient Correspondenceon Patient Correspondence [id number]#1.00TIFF [facility] Consent for Treatmenton 10-21 Consent for Treatment [id number]#1.00TIFF [facility] Heart and Vascular Office/Cl inic Noteon 11-17-2023 Heart and Vascular Office/Clinic Note History of Present Illness Patient is a very pleasant 68-year-old hypertensive female, nondiabetic, non-smoker, referred to our office after she went to the emergency room on 09/02/2021 with abdominal pain radiating into her back. She reportedly had a stress test, echocardiogram and Holter monitor at [facility] prior to her ER visit on 09/02/2021. Troponins were negative x1, and she was assigned a heart score of 4 and discharged home. In addition the patient apparently had a syncopal episode several weeks prior to her presentation, but cannot recall whether she had any chest pain prior to her syncope.. Her echocardiogram done at [facility] on 08/20/2021 which showed left ventricular systolic [...] took place at an outside facility at [facility] on 09/03/2021 which was read as normal. [...] In addition she has a brother in [place] who apparently has coronary disease the specific [...] concerning lesion (more content not included)... [facility] Comment on above: Result Comment: Elec tronically Signed By: MISAEL CANTRELL, Landon Mckinley\.br\Date and Time Signed: 11/17/23 11:44 EST Physician Orderon 11-17-2023 Physician Order [id number]#1.00TIFF [facility] XR Pelvis 1 or 2 [...] mGy = na DAP = na [facility] XR Spine Lumbosacral 2 or [...] mGy = na DAP = na [facility] Consent for Treatmenton Consent for Treatment [id number]#1.00TIFF [facility] Consent for Treatment [id number]#1.00TIFF [facility] Consultation Noteon 10-26-19 24 Consultation Note Patient: [...] QID, # 120 tab(s), Refills(s) 3, Pharmacy: [facility], 152, cm, 04/03/23 9:20:00 EDT, Height/Length Dosing, 80, kg, 04/03/23 9:20:00 EDT, Weight Dosing Protonix 40 mg Tab-DR: 40 mg = 1 tab(s), Oral, BID, # 120 tab(s), Refills(s) 0, Pharmacy: [facility], 152.4, cm, 04/01/21 7:20:00 EDT, Height/Length Dosing, 85.5, kg, 04/01/21 7:20:00 EDT, Weight Dosing losartan 100 mg Tab: 100 mg = 1 tab(s), Oral, Bedtime, # 90 tab(s), Refills(s) 1, Pharmacy: [facility], 152, cm, 07/14/23 9:26:00 EDT, Height/Length Dosing, 76.9, kg, 07/14/23 9:26:00 EDT, Weight Dosing metoprolol 50 mg ER Tab: 50 mg = 1 tab(s), Oral, Daily, # 90 tab(s), Refills(s) 1, Pharmacy: [facility], 152, cm, 07/14/23 9:26:00 EDT, Height/Length Dosing, 76.9, kg, 07/14/23 9:26:00 EDT, Weight Dosing pregabalin 25 mg Cap: 25 mg = 1 cap(s), Oral, BID, start with once a day for 3-5 days. If doing well can go to BID, # 60 cap(s), Refills(s) 0, Pharmacy: [facility], 152, cm, 10/26/23 13:07:00 EST, Height/Length Dosing, 70.5, kg, 10/26/23 13:07:00 EST, Weigh... Documented Medications Documented Aleve: Refills(s) 0 Multi Vitamin+: Oral, Daily, Refill(s) 0 alendronate 70 mg Tab: TAKE 1 TABLET BY MOUTH 30 MINUTES BEFORE first food once a week, Prophylaxis ropinirole: 0.5 mg, Oral, Refills(s) 0 Problem list: All Problems Chronic GERD / SNOMED CT 386366027 / Confirmed Unilateral primary osteoarthritis, right knee / SNOMED CT 8709825791 / Confirmed Gastritis / SNOMED CT 4110215 / Confirmed Vertigo / SNOMED CT 9225145150 / Confirmed BMI 34.0-34.9,adult / SNOMED CT 054358690 / Confirmed Regurgitation of stomach contents / SNOMED CT 516292054 / Confirmed Osteoporosis / SNOMED CT 549167049 / Confirmed HTN (hypertension) / SNOMED CT 5027976322 / Confirmed Dysphagia / SNOMED CT 66580765 / Confirmed Epigastric pain / SNOMED CT 136574752 / Confirmed Chest pain due to GERD / SNOMED CT 79353557 / Confirmed Screening for malignant neoplasm of colon / SNOMED CT 967203050 / Confirmed H/O: osteoarthritis / SNOMED CT 227343016 / Confirmed Hiatal hernia with gastroesophageal reflux / SNOMED CT 1242730999 / Confirmed Duodenogastric bile reflux / SNOMED CT 96531280 / Confirmed Sigmoid diverticulosis / SNOMED CT 7893658947 / Confirmed Tendonitis / SNOMED CT 91061007 / Confirmed Resolved: GERD - Gastro-esophageal reflux disease / SNOMED CT 5480788072 Resolved: Appendicitis / SNOMED CT 167967785 Resolved: Cough / SNOMED CT 84974558 Resolved: Sinus drainage / SNOMED CT 998416126 Canceled: GERD with apnea / SNOMED CT 8624631566 Objective Vital Signs 10/26/2023 12:48 EST Peripheral Pulse Rate 66 bpm Respiratory Rate 20 br/min Systolic Blood Pressure 143 mmHg HI Diastolic Blood Pressure 88 mmHg Mean Arterial Pressure, Cuff 106 mmHg General: Alert and oriented, No acute distress. Overweight Eye: Normal conjunctiva. HENT: Normocephalic, Normal hearing. Cardiovascular: No edema. Musculoskeletal Nor (more content not included)... [facility] Comment on above: Result Comment: Elec tronically Signed By: Anna GAMEZ, Vicky\.br\Date and Time Signed: 10/26/23 13:22 EST Legal Correspondence Officeo n 10-26-2023 Legal Correspondence Office [id number]#1.00TIFF [facility] Office/Clinic Note-Physician on 10-26-2023 Office/Clinic Note-Physician [id number]#1.00TIFF [facility] Patient Correspondenceon Patient Correspondence [id number]#1.00TIFF [facility] Patient Correspondence [id number]#1.00TIFF [facility] Patient Correspondence [id number]#1.00TIFF [facility] Patient Correspondence [id number]#1.00TIFF [facility] Patient History Officeon Patient History Office [id number]#1.00TIFF [facility] Physician Orderon 10-26-2023 Physician Order [id number]#1.00TIFF [facility] Physician Order [id number]#1.00TIFF [facility] Consent for Procedure/Surger yon 10-07-2023 Consent for Procedure/Surgery [id number]#1.00TIFF [facility] Consent for Treatmenton 09-19 Consent for Treatment [id number]#1.00TIFF [facility] Discharge Instructionson Discharge Instructions [id number]#1.00TIFF [facility] IntraOperative Documentson 1 12-08-2022 IntraOperative Documents [id number]#1.00TIFF [facility] Main OR Intraoperative Recor don 10-07-2023 Main OR Intraoperative Record IntraOp Document Type FTPM Summary Primary Physician: Claudio Monroe DO Finalized Date/Time: 10/07/23 09:50:14 Pt. Name: ANYCHLOE/Sex: 1955 Female Med Rec #: [id number] Physician: Claudio Monroe DO Financial #: [id number] Pt. Type: P Room/Bed: / Admit/Disch: 10/07/23 [...] Antoinette Alisha Role Performed Surgeon - Primary Manager Product - Primary Scrub - Primary Time In 10/07/23 09:41:00 10/07/23 09:41:00 10/07/23 09:41:00 Time Out 10/07/23 09:50:00 10/07/23 09:50:00 10/07/23 09:50:00 Procedure TRANSFORAMINAL EPIDURAL TRANSFORAMINAL EPIDURAL TRANSFORAMINAL EPIDURAL STEROID INJECTIO(Right) STEROID INJECTIO(Right) STEROID INJECTIO(Right) Comments Last Modified By: Bhargav DUMONT, Lashanda Durant RN, Lashanda Elizalde RN 10/07/23 09:49:59 10/07/23 09:49:59 10/07/23 09:49:59 Entry 4 Case Attendee Faustino Dorado Role Performed Sheriffs Detective Time In 10/07/23 09:41:00 Time Out 10/07/23 [...] and tissue Entry 1 Skin Integrity Intact, Justice Addition, Warm, and Skin Abnormality No Dry Outcomes [...] Press Point (more content not included)... [facility] Main OR Preoperative Recordo n 10-07-2023 Main OR Preoperative Record Holding Area Document Type FTPM Summary Primary Physician: Claudio Monroe DO Finalized Date/Time: 10/07/23 09:09:26 Pt. Name: CHLOE AGARWAL/Sex: 1955 Female Med Rec #: [id number] Physician: Claudio Monroe DO Financial #: [id number] Pt. Type: P Room/Bed: / Admit/Disch: 10/07/23 [...] Signed By: Shea Aguirre RN 10/07/23 09:09 [facility] Patient Correspondenceon Patient Correspondence [id number]#1.00TIFF [facility] Consent for Treatmenton Consent for Treatment [id number]#1.00TIFF [facility] Consultation Noteon 09-22-20 Consultation Note [...] QID, # 120 tab(s), Refills(s) 3, Pharmacy: [facility], 152, cm, 04/03/23 9:20:00 EDT, Height/Length Dosing, 80, kg, 04/03/23 9:20:00 EDT, Weight Dosing Medrol 4 mg Tab: = 1 packet(s), Oral, As Directed, as directed on package labeling, X 6 day(s), # 21 tab(s), Refills(s) 0, Pharmacy: [facility], 152, cm, 09/22/23 11:39:00 EST, Height/Length Dosing, 70.5, kg, 09/22/23 11:39:00 EST, Weight Dosing Protonix 40 mg Tab-DR: 40 mg = 1 tab(s), Oral, BID, # 120 tab(s), Refills(s) 0, Pharmacy: [facility], 152.4, cm, 04/01/21 7:20:00 EDT, Height/Length Dosing, 85.5, kg, 04/01/21 7:20:00 EDT, Weight Dosing losartan 100 mg Tab: 100 mg = 1 tab(s), Oral, Bedtime, # 90 tab(s), Refills(s) 1, Pharmacy: [facility], 152, cm, 07/14/23 9:26:00 EDT, Height/Length Dosing, 76.9, kg, 07/14/23 9:26:00 EDT, Weight Dosing metoprolol 50 mg ER Tab: 50 mg = 1 tab(s), Oral, Daily, # 90 tab(s), Refills(s) 1, Pharmacy: [facility], 152, cm, 07/14/23 9:26:00 EDT, Height/Length Dosing, 76.9, kg, 07/14/23 9:26:00 EDT, Weight Dosing Documented Medications Documented Aleve: Refills(s) 0 Multi Vitamin+: Refill(s) 0 alendronate 70 mg Tab: TAKE 1 TABLET BY MOUTH 30 MINUTES BEFORE first food once a week, Prophylaxis ropinirole: 0.5 mg, Oral, Refills(s) 0 Problem list: All Problems BMI 34.0-34.9,adult / SNOMED CT 567700649 / Confirmed Chest pain due to GERD / SNOMED CT 55178522 / Confirmed Chronic GERD / SNOMED CT 261808169 / Confirmed Duodenogastric bile reflux / SNOMED CT 17164679 / Confirmed Dysphagia / SNOMED CT 70173278 / Confirmed Epigastric pain / SNOMED CT 180451875 / Confirmed Gastritis / SNOMED CT 5626098 / Confirmed H/O: osteoarthritis / SNOMED CT 642314277 / Confirmed Hiatal hernia with gastroesophageal reflux / SNOMED CT 2606015810 / Confirmed HTN (hypertension) / SNOMED CT 4454661445 / Confirmed Osteoporosis / SNOMED CT 380493842 / Confirmed Regurgitation of stomach contents / SNOMED CT 846672650 / Confirmed Screening for malignant neoplasm of colon / SNOMED CT 418817340 / Confirmed Sigmoid diverticulosis / SNOMED CT 4571244810 / Confirmed Tendonitis / SNOMED CT 57518910 / Confirmed Unilateral primary osteoarthritis, right knee / SNOMED CT 1089813577 / Confirmed Vertigo / SNOMED CT 8120106111 / Confirmed Objective Vital Signs 09/22/2023 11:23 [...] after she (more content not included)... [facility] Comment on above: Result Comment: Elec tronically Signed By: Valeri CANTRELL, Demar Preston.br\Date and Time Signed: 09/22/23 11:54 EST Office/Clinic Note-Physician on 09-22-2023 Office/Clinic Note-Physician [id number]#1.00TIFF [facility] Patient Correspondenceon Patient Correspondence [id number]#1.00TIFF [facility] Patient Correspondence [id number]#1.00TIFF [facility] Patient History Officeon Patient History Office [id number]#1.00TIFF [facility] Physician Orderon 07-28-2023 Physician Order [id number]#1.00TIFF [facility] Consenton 07-24-2023 Consent [id number]#1.00TIFF [facility] Patient Eval Forms Officeon 07-24-2023 Patient Eval Forms Office [id number]#1.00TIFF [facility] Patient Eval Forms Office [id number]#1.00TIFF [facility] Consent for Treatmenton 10-0 Consent for Treatment [id number]#1.00TIFF [facility] CHEMISTRYOrdered By: SYSTEM SYSTEM on 06-05-2023 Anion gap [Moles/Vol] 12 mmol/L Normal 6 - 16 mEq/L [facility] Remisol Calcium [Mass/Vol] 9.5 mg/dL Normal 8.9 - 11. 1 mg/dL FT Remisol Chloride [Moles/Vol] 107 mmol/L Normal 101 - 111 mmol/L FT Remisol CO2 [Moles/Vol] 26 mmol/L Normal 21 - 31 mmol/L [facility] Remisol Creatinine [Mass/Vol] 0.7 mg/dL Normal 0.5 - 1.3 mg/dL [facility] Remisol GFR/1.73 sq M.predicted among non-blacks MDRD (S/P/Bld) [Vol rate/Area] 96 mL/min/1.73 m2 Normal >=59mL/min /1.73 m2 [facility] Chem S Glucose [Mass/Vol] 100 mg/dL Normal 55 - 199 mg/dL FT Remisol Potassium [Moles/Vol] 3.6 mmol/L Normal 3.5 - 5.3 mmol/L [facility] Remisol Sodium [Moles/Vol] 141 mmol/L Normal 135 - 145 mmol/L [facility] Remisol Troponin I.cardiac [Mass/Vol] 8.30 pg/mL Low 10.10 - 27.10 pg/mL [facility] Remisol Urea nitrogen [Mass/Vol] 19 mg/dL Normal 5 - 21 mg/dL [facility] Remisol Urea nitrogen/Creatinine [Mass ratio] 27 mg/mg High 10 - 20 [facility] Remisol CHEMISTRYOrdered By: Lab ROP User on 06-05-2023 Glucose [Mass/Vol] 109 mg/dL High 55 - 99 mg/dL [facility] POC Subsection Comment on above: Result Comment: Kacey jama Meter POC Device SN [id number] Invalid Interpretation Code [facility] POC Subsection POC User ID [id number] Invalid Interpretation Code [facility] POC Subsection POC Username SHARITA VARGAS Invalid Interpretation Code [facility] POC Subsection HEMATOLOGYOrdered By: SYSTEM SYSTEM on [...] 87.5 fL Normal 80.0 - 100.0 fL [facility] HemeAutoSS Platelet mean volume (Bld) [Entitic vol] 8.2 fL Normal 6.4 - 10.8 fL FT HemeAutoSS Platelets (Bld) [#/Vol] 239.0 E9/L Normal 150.0 - 500.0 E9/L [facility] HemeAutoSS RBC (Bld) [#/Vol] 4.5 E12/L Normal 4.3 - 5.9 E12/L [facility] HemeAutoSS WBC corrected for nucl RBC Auto (Bld) [#/Vol] 7.5 E9/L Normal 4.0 - 11.0 E9/L [facility] HemeAutoSS CREATININEon 03-03-2023 Creatinine [Mass/Vol] 0.89 mg/dL Normal 0.55-1.02 [facility] Comment on above: Performed By: #### C LING #### [facility] [address] [place] [address] Dr. Lorraine Scott EGFR-AF MALAGASY >60 Normal >=60 [facility] Comment on above: Performed By: #### C LING #### [facility] [address] [place] [address] Dr. Lorraine Scott EGFR-NON AF MALAGASY >60 Normal >=60 [facility] Comment on above: Performed By: #### C LING #### [facility] [address] [place] [address] ABD/PELV W CONon [...] RYAN VAZQUEZ Date: 2023-03-03 10:08 Normal [facility] US SINGLE QUAD RT UPPERon US [...] by: RYAN VAZQUEZ Date: 2023-02-09 11:57 Normal [facility] 10-19 SARS-CoV-2 (COVID-19) RNA SHAHEEN+probe Ql (Unsp spec) Detected Abnormal NOT DETECTED [facility] Comment on above: Result Comment: This test is not yet approved or cleared by the [place] FDA. When there are no FDA-approved or cleared tests available, and other criteria are met, FDA can make tests available under an emergency access mechanism called an Emergency Use Authorization (EUA). The EUA for this test is supported by the Manager Product of Health and Human Service's declaration that [...] used). Performed By: #### C VDTB #### [facility] [address] [place] [address] Dr. Lorraine Scott INFLUENZA A AND B AGon 11-05 [facility] SEE BELOW Normal [facility] Comment on above: Result Comment: Nega tive for Flu A protein angiten. Infection due to Flu A cannot be ruled out. Flu A angiten in the sample may be below the detection limit of the test. Performed By: #### I NFLUAB #### [facility] [address] [place] [address] Dr. Lor[facility] Normal [facility] Comment on above: Result Comment: Nega tive for Flu B protein antigen. Infection due to Flu B cannot be ruled out. Flu B antigen in the sample may be below the detection limit of the test. Performed By: #### I NFLUAB #### [facility] [address] [place] [address] Dr. Lorraine Scott INFLUENZA A AG Negative Normal NEGATIVE SEE COMMENT [facility] Comment on above: Performed By: #### I NFLUAB #### [facility] [address] [place] [address] Dr. Lorraine Scott INFLUENZA B AG Negative Normal NEGATIVE SEE COMMENT [facility] Comment on above: Performed By: #### I NFLUAB #### [facility] [address] [address] [address] Lorraine Scott MG MAMM SCREEN 3D LAURA CADon 10-22-2022 MG MAMM SCREEN 3D LAURA CAD Patient: CHLOE AGARWAL Exam Date: 10/22/2022 : 1955 Gender:F Ordering : DR JUAN CARLOS NARVAEZ . Admission #: [id number] Family : Order #: [id number] CLICK HERE TO VIEW EXAM RADIOLOGY REPORT [...] Treatments None Family Cancers None LOCATION: [facility] BREAST COMPOSITION: Scattered areas fibroglandular density. [...] Vazquez M.D. on 10/23/2022 at 08:41 Normal [facility] XR DEXA BONE DENSITYon 10-22 [...] by: RYAN VAZQUEZ Date: 2022-10-22 09:12 Normal [facility] PAP ACOG PANEL 2: 30 to 65on 10-03-2022 . . Normal [facility] Comment on above: Result Comment: Perf ormed at: WB Performed By: #### [id number] #### [facility] [address] [address] [address] Lorraine Scott Age Gdln ACOG Testing 30-65 Normal [facility] Comment on above: Performed By: #### 4 [id number] #### [facility] [address] [address] [address] Lorraine Scott DIAGNOSIS: Comment Normal [facility] Comment on above: Result Comment: NEGA TIVE FOR INTRAEPITHELIAL LESION OR MALIGNANCY. CELLULAR CHANGES ASSOCIATED WITH ATROPHY ARE PRESENT. Performed at: WB Performed By: #### 4 [id number] #### [facility] [address] [address] [address] Lorraine Scott HPV Aptima Negative Normal Negative [facility] Comment on above: Result Comment: This nucleic acid amplification test detects fourteen high-risk HPV types (16,18,31,33,35,39,45,51,52,56,58,59,66,68) without differentiation. Performed at: =G Performed By: #### 4 [id number] #### [facility] [address] [address] [address] Lorraine Scott HPV Genotype Reflex Comment Normal [facility] Comment on above: Result Comment: Crit eria not met, HPV Genotype not performed. Performed at: WB Performed By: #### 4 [id number] #### [facility] [address] [address] [address] Lorraine Scott Methodology: Comment Normal [facility] Comment on above: Result Comment: This liquid based ThinPrep(R) pap test was screened with the use of an image guided system. Performed at: WB Performed By: #### [id number] #### [facility] [address] [place] [address] Dr. Lorraine Scott Note: Comment Normal [facility] Comment on above: Result [...] Performed at: WB Performed By: #### [id number] #### [facility] [address] [place] [address] Dr. Lorraine Scott Performed by: Comment Normal [facility] Comment on above: Result Comment: Kong Juarez, Offset Pressman (ASCP) Performed at: WB Performed By: #### 4 [id number] #### [facility] [address] [place] [address] Dr. Lorraine Scott Specimen adequacy: Comment Normal [facility] Comment on above: Result Comment: Sati sfactory for evaluation. Endocervical component may not be distinguished in cases of atrophy. Performed at: WB Performed By: #### 4 [id number] #### [facility] [address] [place] [address] Dr. Lorraine Scott CHEMISTRYOrdered By: SYSTEM SYSTEM on 04-29-2022 Anion gap [Moles/Vol] 13 mmol/L Normal 6 - 16 mEq/L FT Remisol Calcium [Mass/Vol] 10.0 mg/dL Normal 8.9 - 11. 1 mg/dL [facility] Remisol Chloride [Moles/Vol] 103 mmol/L Normal 101 - 111 mmol/L [facility] Remisol CO2 [Moles/Vol] 27 mmol/L Normal 21 - 31 mmol/L [facility] Remisol Creatinine [Mass/Vol] 1.0 mg/dL Normal 0.5 - 1.3 mg/dL [facility] Remisol GFR/1.73 sq M.predicted among blacks MDRD (S/P/Bld) [Vol rate/Area] mL/min/1.73 m2 Normal >=59mL/min /1.73 m2 FT Chem S GFR/1.73 sq M.predicted among non-blacks MDRD (S/P/Bld) [Vol rate/Area] 56 mL/min/1.73 m2 Low >=59mL/min /1.73 m2 [facility] [facility] [place] Chem S Glucose [Mass/Vol] 104 mg/dL Normal 55 - 199 mg/dL [facility] Remisol Potassium [Moles/Vol] 4.6 mmol/L Normal 3.5 - 5.3 mmol/L FT Remisol Sodium [Moles/Vol] 138 mmol/L Normal 135 - 145 mmol/L [facility] Remisol Urea nitrogen [Mass/Vol] 20 mg/dL Normal 5 - 21 mg/dL [facility] Remisol Urea nitrogen/Creatinine [Mass ratio] 20 mg/mg Normal 10 - 20 [facility] Remisol Intraoperative Noteon 2017 Intraoperative Note [id number][facility] Coding Summaryon 12-14-2017 Coding Summary CODING DATE: 018 [facility] STATUS: Home PAYOR: Commercial Insurance APC DESCRIPTION 5361 Level 1 Laparoscopy and Related Services ADMIT DX: REASON FOR VISIT DX: K35.80 Unspecified acute appendicitis FINAL DX: PRINCIPAL: K35.80 Unspecified acute appendicitis SECONDARY: K21.9 Gastro-esophageal reflux disease without esophagitis PYMT PROC APC STAT DESCRIPTION DOCTOR NAME DATE 13696 5361 J1 Laparoscopy, surgical, Adryan Yoon MD appendectomy NOTE: The code number assigned matches the documented diagnosis and / or procedure in the patient's chart. However, the narrative phrase printed from the coding software may appear abbreviated, or result in slightly different terminology. Coded By: Tenisha Smith Date Saved: 12/14/2017 09:53 am [facility] Lab - Other Lab Resultson Lab - Other Lab Results [id number]#1.00OTGTIFF [facility] Operative Report - Surgeon/P avery 12-09-2017 Operative [...] theprocedure without any difficulties.Adryan Yoon M.D.JOB #: [id number]: 12/09/2017T: 12/09/2017[Electronically Signed on: 12/15/2017 10:32 EST] Adryan Yoon MD[Verified on: 12/15/2017 10:32 EST] Adryan Yoon MD[Transcribed on: 12/09/2017 09:14 EST][facility] Outside Recordson 12-09-2017 Outside Records [id number]#1.00OTGTIFF [facility] Outside Records [id number]#1.00[facility] MAGR Postoperative Recordon 12-08-2017 MAGR Postoperative Record MAGR Phase II Record Summary Primary Physician: Adryan Yoon MD Finalized Date/Time: 12/08/17 13:12:55 Pt. Name: CHLOE AGARWAL/Sex: 1955 FEMALE Med Rec #: [id number] Physician: Adryan Yoon MD Financial #: [id number] Pt. Type: D Room/Bed: [facility] Admit/Disch: 12/04/17 03:05:00 - 12/05/17 12:30:00 [...] discharge instructions. General Comments: care per [facility] Finalized By: Chloe Turcios RN Document Signatures Signed By: Chloe Turcios RN 12/08/17 13:12 [facility] Operative Report - Surgeon/P avery 12-08-2017 Operative Report - Surgeon/Physician [id number]#[address] [place] [address] Pathology Sendout Teston Pathology Send Out. See Report [facility] Comment on above: Order Comment: JANET COWART Performed By: #### 2 [id number] ####[facility] (DEFAULT)[address] [place] [address] Provider Orderson 12-08-2017 Provider Orders [id number]#[address] Consent Formson 12-07-2017 Consent Forms [id number]#[address] [place] [address] Intraoperative Noteon 2017 Intraoperative Note [id number]#[address] Medication Managementon 11-19 Medication Management [id number]#[address] Telemetry Stripson 8 Telemetry Strips [id number]#[address] Discharge Summaryon 12-06-19 Discharge Summary DISCHARGE DIAGNOSIS: Acute appendicitis.DISCHARGE CONDITION: Good.HOSPITAL COURSE: The patient is a 62-year-old woman who presented [facility] emergency department. She was found to have a slightlyelevated white blood cell count. A CT scan was consistent with acuteappendicitis. The patient wanted to be transferred to [facility] andas a result, she underwent a laparoscopic appendectomy. Postoperatively sheis doing well. Her white blood cell count decreased to the normal range. Sheis tolerating a regular diet. Her pain is controlled and she is ambulatingwithout difficulty. As a result, she will be discharged home. She willfollow-up with me in two weeks.Adryan Yoon M.D.JOB #: [id number]: 12/05/2017T: 12/06/2017[Electronically Signed on: 12/09/2017 07:13 EST] Adryan Yoon MD[Verified on: 12/09/2017 07:13 EST] Adryan Yoon MD[Transcribed on: 12/06/2017 08:45 EST][facility] .Auto Diff 1on 12-05-2017 Auto Baso % 0.1 % Low 0.2-2.0 [facility] Comment on above: Performed By: #### 7 [id number], [id number] ####[facility] (DEFAULT)[address] [place] [address] Auto [place] % 8 % Normal 1-12 [facility] Comment on above: Performed By: #### 7 [id number], [id number] ####[facility] (DEFAULT)[address] [place] [address] Auto Neut % 86 % Normal 44-88 [facility] Comment on above: Performed By: #### 7 [id number], [id number] ####[facility] (DEFAULT)[address] [place] [address] Baso Abs# 0.0 x10 Normal 0.0-0.2 [facility] Comment on above: Performed By: #### 7 [id number], [id number] ####[facility] (DEFAULT)[address] [place] [address] Eos Abs# 0.0 x10 Normal 0.0-0.4 [facility] Comment on above: Performed By: #### 7 [id number], [id number] ####[facility] (DEFAULT)[address] [place] [address] Eosinophils/100 leukocytes 0.0 % Low 0.9-4.0 [facility] Comment on above: Performed By: #### 7 [id number], [id number] ####[facility] (DEFAULT)[address] [place] [address] Lymphocytes 0.6 x10 Low 1.3-2.9 [facility] Comment on above: Performed By: #### 7 [id number], [id number] ####[facility] (DEFAULT)[address] [place] [address] Lymphocytes/100 leukocytes 6 % Low 14-48 [facility] Comment on above: Performed By: #### 7 [id number], [id number] ####[facility] (DEFAULT)[address] [place] [address] [place] Abs# 0.9 x10 High 0.0-0.8 [facility] Comment on above: Performed By: #### 7 [id number], [id number] ####[facility] (DEFAULT)[address] [place] [address] Neut Abs# 9.9 x10 High 1.5-9.2 [facility] Comment on above: Performed By: #### 7 [id number], [id number] ####[facility] (DEFAULT)[address] [place] [address] CBC w/ Auto Diffon 8 Erythrocyte distribution width Auto Ratio (RBC) 13.6 % Normal 11.5-15.0 [facility] Comment on above: Performed By: #### 7 [id number], [id number] ####[facility] (DEFAULT)[address] [place] [address] Erythrocytes (RBC) 3.75 x10 Normal 3.70-5.30 [facility] Comment on above: Performed By: #### 7 [id number], [id number] ####[facility] (DEFAULT)[address] [place] [address] Hematocrit (HCT) 34.4 % Normal 33.7-40.4 [facility] Comment on above: Performed By: #### 7 [id number], [id number] ####[facility] (DEFAULT)[address] [place] [address] Hemoglobin mass conc (Bld) 11.0 g/dL Low 11.3-15.9 [facility] Comment on above: Performed By: #### 7 [id number], [id number] ####[facility] (DEFAULT)[address] [place] [address] Man Diff? Auto Normal [facility] Comment on above: Performed By: #### 7 [id number], [id number] ####[facility] (DEFAULT)[address] [place] [address] MCH 29 pg Normal 24-34 [facility] Comment on above: Performed By: #### 7 [id number], [id number] ####[facility] (DEFAULT)[address] [place] [address] MCHC mass conc (RBC) 32 g/dL Normal 26-37 [facility] Comment on above: Performed By: #### 7 [id number], [id number] ####[facility] (DEFAULT)[address] [place] [address] MCV 92 fL Normal 81-100 [facility] Comment on above: Performed By: #### 7 [id number], [id number] ####[facility] (DEFAULT)[address] [place] [address] Platelet mean volume (PMV) 11.7 fL High 6.3-10.2 [facility] Comment on above: Performed By: #### 7 [id number], [id number] ####[facility] (DEFAULT)[address] [place] [address] Platelets 204 x10 Normal 138-427 [facility] Comment on above: Performed By: #### 7 [id number], [id number] ####[facility] (DEFAULT)[address] [place] [address] WBC (Leukocytes) 11.4 x10 High 3.5-10.5 [facility] Comment on above: Performed By: #### 7 [id number], [id number] ####[facility] ([facility])[address] [place] [address] Education Noteon 12-05-2017 Education Note Education MaterialsGastroenterologyAppen [...] Reviewed: 02/20/2016[employer]illa [employer] Patient Education ? 2017 [employer]. Normal [facility] Inpatient Clinical Summaryon 12-05-2017 Inpatient Clinical Summary [facility] 2SOUTHClinical Discharge SummaryPERSON INFORMATIONName CHLOE AGARWAL Age 62 Years 59Sex FEMALE Language Beninese PCP Agus MCGHEE Status [facility] [id number] Acct# Arrival 12/04/17 03:05:00Visit Reason APPENDICITIS Acuity LOS 000 34:38Address:[address] [facility] [address]Sgiumen:PROVIDER INFORMATIONVITALS INFORMATIONVital Sign Triage LatestTemp Oral 36.8 DegC 36.4 DegCTemp TemporalTemp IntravascularTemp AxillaryTemp Ssinen65 Sat 99 % 99 %Respiratory Rate 16 br/min 18 br/minPeripheral Pulse Rate 79 bpm 60 bpmApical Heart Rate 76 bpm 60 bpmBlood Pressure 138 mmHg / 86 mmHg 97 mmHg / 59 mmHgComment:MEDICAL INFORMATIONAllergy Info:Allergies sulfonamidePrescriptions Given:Home Meds Displayacetaminophen-hydrocodo ne ([place] 7.5 mg-325 mg oral tablet) 1 tab(s), [...] 4 hours as needed for for painacetaminophen-hydrocodone ([place] 7.5 mg-325 mg oral tablet) 1 tab(s) [...] range between ( 1.3 and 2.9 ) [place] Abs#: 0.9 x103/mcL -- Normal range between ( 0.0 and 0.8 ) Auto Baso %: 0.1 % -- Normal range between ( 0.2 and 2.0 ) Auto [place] %: 8 % -- Normal range between [...] INFORMATIONInstructions:Append icitisFollow up:With: Address: When:Adryan Yoon MD [address] [place] [address] [place] [address] Business (1)DIAGNOSIS1:Acute appendicitisPROBLEMSProblems Active Arthritis Heart murmur HeartburnComment:PHYS DOC NOTES Normal [facility] Inpatient Patient Summaryon 12-05-2017 Inpatient Patient Summary [place] [id number] patient Discharge InstructionsName: CHLOE AGARWALDOB: [birth year] Address: [address] [place], [place] [address]ry Care Provider:Name: YARELIS MCGHEEPhone: After you are discharged if you find you have any questions, please, call [phone] ext [phone] to speak to a nurse.Discharge Diagnosis: 1:Acute [...] or business decisions or sign any legal documentsM[facility]ullough[facility] would like to thank you for allowing us to assist you with your healthcare needs. The following includes patient education materials and information regarding your injury/illness.CHLOE AGARWAL has been given the following list of follow-up instructions, prescriptions, and patient education materials:Follow-up InstructionsWith: Address: When:Adryan Yoon MD [address] [facility], [place] [address] Business (1)MedicationsDuring the course of your visit, your medication list was updated with the most current information. The details of those changes are reflected below:Medications to Continue That Have Not ChangedOther Medicationsacetaminophen-hydro codone ([place] 7.5 mg-325 mg oral tablet) 1 tab(s) [...] list that you can keep with you.acetaminophen-hydrocodone ([place] 7.5 mg-325 mg oral tablet) 1 tab(s) [...] Reviewed: 02/20/2016Padilla Interactive Patient Education ? 2017 [employer].Viruses or BacteriaWhat?s got you sick?Antibiotics only treat [...] Control and Prevention June 2014 [facility] Progress Note - Nurseon 11-19 Pulse (Heart [...] on: 12/05/2017 09:52 EST] Sim Chamorro RN [facility] Progress Note - Nurse Pt walking the hallway with RN, 200 ft, standby assist. Pt is steady. No c/o SOB or dizziness. Bilateral upper and lower abdominal pain 3/10, prn norco administered as ordered. Will continue to monitor, call light in reach.[Electronically Signed on: 12/05/2017 05:50 EST] Serina Cross[Verified on: 12/05/2017 05:50 EST] Serina Cross [facility] Progress Note - Nurse Pt is a/o [...] 12/04/2017 23:39 EST] Serina Cross [facility] Anesthesia Noteon 12-04-2017 Anesthesia Note Patient: CHLOE AGARWAL : 62 years Sex: FEMALE : 59Associated Diagnoses: NoneAuthor: Fernie Sandoval DOPostoperative InformationPost Operative Note: Post Anesthesia Care Unit.Review / ManagementCondition: Stable.AssessmentAnesthetic outcomeNo anesthetic complications noted.PlanTransfer/ Discharge: Patient can be discharged from PACU when criteria met.Condition good.[Electronically Signed on: 12/04/2017 15:01 EST] Fernie Sandoval DO[Verified on: 12/04/2017 15:01 EST] LoriFernie DO Normal [facility] Anesthesia Note Patient: CHLOE AGARWAL [...] 400 mg = 2 cap(s), PRN, PO, d2vhKsnKNS 20 mg oral delayed release capsule 20 mg = 1 cap(s), PO, DailyProblem list (past medical history):All ProblemsAlteration in comfort: pain / SNOMED CT 44174447 / ConfirmedArthritis / SNOMED CT 1811341 / ConfirmedHeart murmur / SNOMED CT 391398391 / ConfirmedHeartburn / SNOMED CT 19396839 / ConfirmedResolved: Kidney stones / SNOMED CT 291391090Nlwtahxr: History of renal stent / SNOMED CT 5544679420Oibrifpz: Acute appendicitis / SNOMED CT 708587546XhxzsqkuoDyzyce History:DementiaFatherLiver massSisterCHF (congestive heart failure)MotherFatherProcedure history:History of right total knee replacement (730971724329310).History of left total knee replacement (924769779289260).Tonsillectom y (816708609).Removal of ureteral stent (667785391).History of ureteral stent placement (0666449716).Social History Alcohol Assessment Use: Never. Tobacco Assessment Never (less than 100 in lifetime) Tobacco Use:. Substance Abuse Assessment Substance use: Never. 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 Home/Environment Assessment Lives with Children, Spouse. Living situation: Home/Independent. Nutrition/Health Assessment Regular, Caffeine intake amount: Hot tea in the morning..Social & Psychosocial NludmkPdwzwdv85/16/2018 Alcohol Use: NeverEmployment/Mlnxdq89/16/20 18 Status: Self employed Description: Office workHome/Xovgcsrwpxg28/16/2018 Lives with: Children, Spouse Living situation: Home/IndependentNutrition/Heal th12/04/2017 Type of diet: Regular Caffeine intake amount: Hot tea in the morningSubstance Abuse12/04/2017 Substance use: HojsoTckrmkr81/16/2018 Smoking tobacco use: Never (less than 100 in l.Physical ExaminationVS/MeasurementsMeas urements from flowsheet : Tdeogktcibil94/16/18 03:09 EST Height 152.400 cm Height/Length Dosing [...] Temporomandibular joint mobility: Good. Mouth: Teeth ( [place] ). Neck: Non-tender, Full range of motion.Respiratory: [...] on: 12/04/2017 08:38 EST] Fernie Sandoval DO [facility] History and Physicalon 12-04 History and Physical DATE OF ADMISSION: 12/04/17 MEDICAL HISTORYCHIEF COMPLAINT: Right lower quadrant abdominal pain.HISTORY OF PRESENT ILLNESS: The patient is a 62-year-old woman withabdominal pain. She presented to the emergency department at [facility]. A CT scan of the abdomen and pelvis was obtained which wasconsistent with acute appendicitis. Due to personal reasons, she did notwant the surgery performed at [facility] and as a result, shewanted to be transferred [facility] [...] to undergo the procedure.Adryan Yoon M.D.JOB #: [id number]: 12/04/2017T: 12/04/2017[Electronically Signed on: 12/04/2017 07:16 EST] Adryan Yoon MD[Verified on: 12/04/2017 07:16 EST] Adryan Yoon MD[Transcribed on: 12/04/2017 06:52 EST][facility] MAGR Intraoperative Recordon 12-04-2017 MAGR Intraoperative Record MAGR Intra-Op Record Summary Primary Physician: Adryan Yoon MD Finalized Date/Time: 12/04/17 15:26:26 Pt. Name: CHLOE AGARWAL/Sex: 1955 FEMALE Med Rec #: [id number] Physician: Adryan Yoon MD Financial #: [id number] Pt. Type: D Room/Bed: [facility]/ Admit/Disch: 12/04/17 03:05:00 - Institution: Case Times [...] Role Performed Surgeon - Primary Anesthesiologist of Manager Product Record Time In 12/04/17 09:44:00 12/04/17 09:44:00 12/04/17 09:44:00 Time Out 12/04/17 10:42:00 12/04/17 10:42:00 12/04/17 10:42:00 Procedure Appendectomy Appendectomy Appendectomy Laparoscopic Laparoscopic Laparoscopic Last Modified By: Olinda Mora Cynthia M Cartier, Cynthia M 12/04/17 10:56:16 12/04/17 10:56:16 12/04/17 10:56:16 Entry 4 Entry 5 Entry 6 Case Attendee Jennifer Li RECORDS TECH BOARD CSFA/RECORDS TECH, Antonia Bah RN Role Performed Small Business Banking Officer Scrub Personnel Manager Product Time In 12/04/17 09:44:00 12/04/17 09:44:00 12/04/17 [...] UNIT FLOWTRON FOOT CUFF REG Serial ?# [id number] Equipment Setting FACTORY SETTINGS Last Modified By: [...] Signed By: Antonia Pérez RN 12/04/17 15:26 [facility] 8 MAGR PACU Record [facility] PACU Record [facility] Physician: Adryan Yoon MD Finalized Date/Time: 12/04/17 11:35:32 Pt. Name: CHLOE AGARWAL./Sex: 1955 FEMALE Med Rec #: [id number] Physician: Adryan Yoon MD Financial #: [id number] Pt. Type: D Room/Bed: 229/1 Admit/Disch: 12/04/17 03:05:00 - Institution: PACU Case Times MAGR Entry 1 In PACU I 12/04/17 10:44:00 Discharge from PACU 12/04/17 11:25:00 I Last Modified By: Vernell Gunderson RN 12/04/17 11:35:30 Finalized By: Vernell Gunderson RN Document Signatures Signed By: Vernell Gunderson RN 12/04/17 11:35 [facility] Progress Note - Nurseon 11-19 Progress Note - Nurse Patient admitted to [...] 04:41 EST] Liliane Rivero RN [facility] Vital Signs Date Time Vital Sign Value Performing Clinician Davian swan 10-05-2024 11:45-0500 Diastolic blood pressure 76 mm[Hg] Lokesh Mcqueen [facility] 10-05-2024 11:45-0500 Mean blood pressure 102 mm[Hg] Lokesh Mcqueen [facility] 10-05-2024 11:45-0500 Systolic blood pressure 153 mm[Hg] Lokesh Mcqueen [facility] 10-05-2024 11:35-0500 Blood Pressure Location Lokesh Mcqueen [facility] 10-05-2024 11:35-0500 Diastolic blood pressure 84 mm[Hg] Lokesh Mcqueen [facility] 10-05-2024 11:35-0500 Heart rate 62 /min Lokesh Mcqueen [facility] 10-05-2024 11:35-0500 Respiratory rate 18 /min Lokesh Mcqueen [facility] 10-05-2024 11:35-0500 SaO2% (BldA) [Mass fraction] 98 % Lokesh Mcqueen [facility] 10-05-2024 11:35-0500 Systolic blood pressure 156 mm[Hg] Lokesh Mcqueen [facility] 08-19-2024 13:49-0400 Heart rate 68 /min [facility] 08-19-2024 13:49-0400 SaO2% (BldA) [Mass fraction] 98 % [facility] 08-19-2024 13:49-0400 Blood Pressure Location [facility] 08-19-2024 13:49-0400 Diastolic blood pressure 77 mm[Hg] [facility] 08-19-2024 13:49-0400 Mean blood pressure 97 mm[Hg] [facility] 08-19-2024 13:49-0400 Systolic blood pressure 136 mm[Hg] [facility] 08-19-2024 13:48-0400 Respiratory rate 18 /min [facility] 08-19-2024 12:16-0400 Heart rate 52 /min [facility] 08-19-2024 12:16-0400 SaO2% (BldA) [Mass fraction] 100 % [facility] 08-19-2024 12:16-0400 Blood Pressure Location [facility] 08-19-2024 12:16-0400 Diastolic blood pressure 63 mm[Hg] [facility] 08-19-2024 12:16-0400 Mean blood pressure 81 mm[Hg] [facility] 08-19-2024 12:16-0400 Systolic blood pressure 117 mm[Hg] [facility] 08-19-2024 12:15-0400 Respiratory rate 18 /min [facility] 08-19-2024 09:55-0400 Heart rate 50 /min [facility] 08-19-2024 09:55-0400 SaO2% (BldA) [Mass fraction] 98 % [facility] 08-19-2024 09:55-0400 Diastolic blood pressure 68 mm[Hg] [facility] 08-19-2024 09:55-0400 Mean blood pressure 81 mm[Hg] [facility] 08-19-2024 09:55-0400 Systolic blood pressure 106 mm[Hg] [facility] 08-19-2024 09:54-0400 Respiratory rate 18 /min [facility] 08-19-2024 08:04-0400 Body temperature 97.52 [degF] [facility] 08-19-2024 08:03-0400 Blood Pressure Location [facility] 08-11-2024 10:49-0400 Body height 152.4 cm Sydnie Villalobos DPM Work Phone: [facility] 08-11-2024 10:49-0400 Body mass index (BMI) [Ratio] 30.86 kg/m2 Sydnie FAJARDOM Work Phone: [facility] 08-11-2024 10:49-0400 Body weight 71.67 kg Sydnie Villalobos DPM Work Phone: [facility] 07-13-2024 15:01-0400 Blood Pressure Location Willie Kaur [facility] 07-13-2024 15:01-0400 Diastolic blood pressure 82 mm[Hg] Willie Kaur [facility] 07-13-2024 15:01-0400 Heart rate 68 /min Willie Kaur [facility] 07-13-2024 15:01-0400 Respiratory rate 18 /min Willie Kaur [facility] 07-13-2024 15:01-0400 SaO2% (BldA) [Mass fraction] 98 % Willie Kaur [facility] 07-13-2024 15:01-0400 Systolic blood pressure 137 mm[Hg] Willie Kaur [facility] 07-06-2024 14:55-0400 Diastolic blood pressure 82 mm[Hg] Claudio Monroe [facility] 07-06-2024 14:55-0400 Heart rate 66 /min Claudio Monroe [facility] 07-06-2024 14:55-0400 Mean blood pressure 103 mm[Hg] Claudio Monroe [facility] 07-06-2024 14:55-0400 Respiratory rate 14 /min Claudio Monroe [facility] 07-06-2024 14:55-0400 Systolic blood pressure 144 mm[Hg] Claudio Monroe [facility] 05-08-2024 09:00-0400 Diastolic blood pressure 63 mm[Hg] Nelson Solares [facility] 05-08-2024 09:00-0400 Heart rate 55 /min Nelson Beck [facility] 05-08-2024 09:00-0400 Mean blood pressure 78 mm[Hg] Nelson Beck [facility] 05-08-2024 09:00-0400 SaO2% (BldA) [Mass fraction] 99 % Nelson Beck [facility] 05-08-2024 09:00-0400 Systolic blood pressure 108 mm[Hg] Nelson Beck [facility] 05-08-2024 08:26-0400 Diastolic blood pressure 77 mm[Hg] Nelson Beck [facility] 05-08-2024 08:26-0400 Heart rate 58 /min Nelson Beck [facility] 05-08-2024 08:26-0400 Mean blood pressure 105 mm[Hg] Nelson Beck [facility] 05-08-2024 08:26-0400 Respiratory rate 15 /min Nelson Beck [facility] 05-08-2024 08:26-0400 SaO2% (BldA) [Mass fraction] 98 % Nelson Solares [facility] 05-08-2024 08:26-0400 Systolic blood pressure 161 mm[Hg] [facility] [facility] 05-08-2024 07:19-0400 Body temperature 98.42 [degF] Nelson Beck [facility] 05-08-2024 07:19-0400 Diastolic blood pressure 82 mm[Hg] Nelson Beck [facility] 05-08-2024 07:19-0400 Heart rate 64 /min Nelson Solares [facility] 05-08-2024 07:19-0400 Respiratory rate 16 /min Nelson Solares [facility] 05-08-2024 07:19-0400 SaO2% (BldA) [Mass fraction] 100 % Nelson Solares [facility] 05-08-2024 07:19-0400 Systolic blood pressure 163 mm[Hg] Nelson Solares [facility] 12-18-2023 13:32-0500 Blood Pressure Location Willie Kaur [facility] 12-18-2023 13:32-0500 Diastolic blood pressure 70 mm[Hg] Willie Vincent [facility] 12-18-2023 13:32-0500 Heart rate 60 /min Willie Lozanomarcos [facility] 12-18-2023 13:32-0500 SaO2% (BldA) [Mass fraction] 99 % Willie Vincent [facility] 12-18-2023 13:32-0500 Systolic blood pressure 110 mm[Hg] Willie Vincent [facility] 11-25-2023 09:00-0500 Body height 152.4 cm Antionette LOPEZ Work Phone: [facility] 11-25-2023 09:00-0500 Body mass index (BMI) [Ratio] 33.22 kg/m2 Antionette LOPEZ Work Phone: [facility] 11-25-2023 09:00-0500 Body weight 77.17 kg Antionette LOPEZ Work Phone: [facility] 11-25-2023 09:00-0500 Diastolic blood pressure 84 mm[Hg] Antionette LOPEZ Work Phone: [facility] 11-25-2023 09:00-0500 Systolic blood pressure 120 mm[Hg] Antionette LOPEZ Work Phone: [facility] 11-20-2023 13:11-0500 Diastolic blood pressure 81 mm[Hg] Vicky Castillo [facility] 11-20-2023 13:11-0500 Heart rate 59 /min Vicky Castillo [facility] 11-20-2023 13:11-0500 Mean blood pressure 106 mm[Hg] Vicky Castillo [facility] 11-20-2023 13:11-0500 Respiratory rate 18 /min Vicky Castillo [facility] 11-20-2023 13:11-0500 Systolic blood pressure 156 mm[Hg] Vicky Castillo [facility] 11-17-2023 11:36-0500 Diastolic blood pressure 118 mm[Hg] Landon DOUGLAS [facility] 11-17-2023 11:36-0500 Mean blood pressure 135 mm[Hg] Landon DOUGLAS [facility] 11-17-2023 11:36-0500 Systolic blood pressure 170 mm[Hg] Landon DOUGLAS [facility] 11-17-2023 11:27-0500 Blood Pressure Location Landon DOUGLAS [facility] 11-17-2023 11:27-0500 Diastolic blood pressure 107 mm[Hg] Landon DOUGLAS [facility] 11-17-2023 11:27-0500 Heart rate 68 /min Landon DOUGLAS [facility] 11-17-2023 11:27-0500 SaO2% (BldA) [Mass fraction] 98 % Landon DOUGLAS [facility] 11-17-2023 11:27-0500 Systolic blood pressure 171 mm[Hg] Landon DOUGLAS [facility] 10-26-2023 12:48-0500 Diastolic blood pressure 88 mm[Hg] Vicky Castillo [facility] 10-26-2023 12:48-0500 Heart rate 66 /min Vicky Castillo [facility] 10-26-2023 12:48-0500 Mean blood pressure 106 mm[Hg] Vicky Castillo [facility] 10-26-2023 12:48-0500 Respiratory rate 20 /min Vicky Castillo [facility] 10-26-2023 12:48-0500 Systolic blood pressure 143 mm[Hg] Vicky Castillo [facility] 10-07-2023 09:52-0500 Heart rate 68 /min Claudio Monroe [facility] 10-07-2023 09:52-0500 SaO2% (BldA) [Mass fraction] 100 % Claudio Monroe [facility] 10-07-2023 09:52-0500 Diastolic blood pressure 95 mm[Hg] Claudio Monroe [facility] 10-07-2023 09:52-0500 Mean blood pressure 113 mm[Hg] Claudio Monroe [facility] 10-07-2023 09:52-0500 Systolic blood pressure 148 mm[Hg] Claudio Monroe [facility] 10-07-2023 09:52-0500 Respiratory rate 16 /min Claudio Monroe [facility] 10-07-2023 09:45-0500 Diastolic blood pressure 94 mm[Hg] Claudio Monroe [facility] 10-07-2023 09:45-0500 Heart rate 88 /min Claudio Monroe [facility] 10-07-2023 09:45-0500 SaO2% (BldA) [Mass fraction] 100 % Claudio Monroe [facility] 10-07-2023 09:45-0500 Systolic blood pressure 178 mm[Hg] Claudio Monroe [facility] 10-07-2023 09:03-0500 Heart rate 65 /min Claudio Monroe [facility] 10-07-2023 09:03-0500 SaO2% (BldA) [Mass fraction] 98 % Claudio Monroe [facility] 10-07-2023 09:03-0500 Body temperature 97.52 [degF] Claudio Monroe [facility] 10-07-2023 09:03-0500 Diastolic blood pressure 83 mm[Hg] Claudio Monroe [facility] 10-07-2023 09:03-0500 Mean blood pressure 103 mm[Hg] Claudio Monroe [facility] 10-07-2023 09:03-0500 Systolic blood pressure 143 mm[Hg] Claudio Monroe [facility] 10-07-2023 09:03-0500 Respiratory rate 14 /min Claudio Monroe [facility] 09-22-2023 11:23-0500 Diastolic blood pressure 88 mm[Hg] Demarjorge Trammell [facility] 09-22-2023 11:23-0500 Heart rate 60 /min Demar Valeri [facility] 09-22-2023 11:23-0500 Mean blood pressure 105 mm[Hg] Demar Valeri [facility] 09-22-2023 11:23-0500 Respiratory rate 14 /min Demar Valeri [facility] 09-22-2023 11:23-0500 Systolic blood pressure 138 mm[Hg] Demar Trammell [facility] 07-14-2023 09:26-0400 Diastolic blood pressure 78 mm[Hg] Vicky LAST [facility] 07-14-2023 09:26-0400 Mean blood pressure 101 mm[Hg] Vickyjayden LAST [facility] 07-14-2023 09:26-0400 Systolic blood pressure 146 mm[Hg] Vickyjayden MCDOWELLG [facility] 07-14-2023 09:15-0400 Blood Pressure Location Vickyjayden LAST [facility] 07-14-2023 09:15-0400 Diastolic blood pressure 82 mm[Hg] Vickyjayden LAST [facility] 07-14-2023 09:15-0400 Heart rate 67 /min Vickyjayden LAST [facility] 07-14-2023 09:15-0400 SaO2% (BldA) [Mass fraction] 98 % Vickyjayden LAST [facility] 07-14-2023 09:15-0400 Systolic blood pressure 148 mm[Hg] Vickyjayden MCDOWELLG [facility] 06-30-2023 15:15-0400 Diastolic blood pressure 97 mm[Hg] Landon DOUGLAS [facility] 06-30-2023 15:15-0400 Mean blood pressure 123 mm[Hg] Landon DOUGLAS [facility] 06-30-2023 15:15-0400 Systolic blood pressure 174 mm[Hg] Landon DOUGLAS [facility] 09-12-2023 15:05-0400 Blood Pressure Location Landon DOUGLAS [facility] 06-30-2023 15:05-0400 Diastolic blood pressure 98 mm[Hg] Landon DOUGLAS [facility] 06-30-2023 15:05-0400 Heart rate 80 /min Landon DOUGLAS [facility] 06-30-2023 15:05-0400 SaO2% (BldA) [Mass fraction] 99 % Landon DOUGLAS [facility] 06-30-2023 15:05-0400 Systolic blood pressure 166 mm[Hg] Landon DOUGLAS [facility] 06-08-2023 08:21-0400 Diastolic blood pressure 94 mm[Hg] Vicky Castillo [facility] 06-08-2023 08:21-0400 Heart rate 62 /min Vicky Castillo [facility] 06-08-2023 08:21-0400 Respiratory rate 16 /min Vicky Castillo [facility] 06-08-2023 08:21-0400 Systolic blood pressure 156 mm[Hg] Vicky Castillo [facility] 06-05-2023 10:45-0400 Diastolic blood pressure 70 mm[Hg] Prasad Avalos [facility] 06-05-2023 10:45-0400 Heart rate 70 /min Prasad Infantee [facility] 06-05-2023 10:45-0400 Mean blood pressure 97 mm[Hg] Prasad Avalos [facility] 06-05-2023 10:45-0400 Respiratory rate 20 /min Prasad Avalos [facility] 06-05-2023 10:45-0400 SaO2% (BldA) [Mass fraction] 96 % Prasad Infantee [facility] 06-05-2023 10:45-0400 Systolic blood pressure 152 mm[Hg] Prasad Robbie [facility] 06-05-2023 09:25-0400 Diastolic blood pressure 70 mm[Hg] Prasad Robbie [facility] 06-05-2023 09:25-0400 Heart rate 71 /min Prasad Infantee [facility] 06-05-2023 09:25-0400 Mean blood pressure 96 mm[Hg] Prasad Robbie [facility] 06-05-2023 09:25-0400 Respiratory rate 17 /min Prasad Infantee [facility] 06-05-2023 09:25-0400 SaO2% (BldA) [Mass fraction] 99 % Prasad Infantee [facility] 06-05-2023 09:25-0400 Systolic blood pressure 147 mm[Hg] Prasad Infantee [facility] 06-05-2023 08:54-0400 gluc 109 mg/dL Prasad Infantee [facility] 06-05-2023 08:54-0400 gluc Prasad Infantee [facility] 06-05-2023 08:47-0400 Body temperature 98.06 [degF] Prasad Robbie [facility] 06-05-2023 08:47-0400 Diastolic blood pressure 106 mm[Hg] Prasad Robbie [facility] 06-05-2023 08:47-0400 Heart rate 81 /min Prasad Infantee [facility] 06-05-2023 08:47-0400 Respiratory rate 20 /min Prasad Avalos [facility] 06-05-2023 08:47-0400 SaO2% (BldA) [Mass fraction] 97 % Prasad Avalos [facility] 06-05-2023 08:47-0400 Systolic blood pressure 173 mm[Hg] Prasad Avalos [facility] 04-28-2023 09:05-0400 Diastolic blood pressure 87 mm[Hg] Vickyjayden MCDOWELLG [facility] 04-28-2023 09:05-0400 Mean blood pressure 111 mm[Hg] Vicky STANG [facility] 04-28-2023 09:05-0400 Systolic blood pressure 160 mm[Hg] Vicky STANG [facility] 04-28-2023 08:55-0400 Blood Pressure Location Vicky STANG [facility] 04-28-2023 08:55-0400 Diastolic blood pressure 88 mm[Hg] Vicky STANG [facility] 04-28-2023 08:55-0400 Heart rate 66 /min Vicky STANG [facility] 04-28-2023 08:55-0400 SaO2% (BldA) [Mass fraction] 97 % Vicky STANG [facility] 04-28-2023 08:55-0400 Systolic blood pressure 153 mm[Hg] Vicky STANG [facility] 04-20-2023 13:54-0400 Diastolic blood pressure 89 mm[Hg] Demar Valeri [facility] 04-20-2023 13:54-0400 Diastolic blood pressure 84 mm[Hg] Demar Valeri [facility] 04-20-2023 13:54-0400 Heart rate 72 /min Demar Valeri [facility] 04-20-2023 13:54-0400 Heart rate 62 /min Demar Valeri [facility] 04-20-2023 13:54-0400 Mean blood pressure 112 mm[Hg] Demar Valeri [facility] 04-20-2023 13:54-0400 Respiratory rate 14 /min Demar Valeri [facility] 04-20-2023 13:54-0400 Systolic blood pressure 159 mm[Hg] Demar Valeri [facility] 04-20-2023 13:54-0400 Systolic blood pressure 147 mm[Hg] Demar Valeri [facility] 04-03-2023 10:40-0400 Diastolic blood pressure 62 mm[Hg] NILL [facility] 04-03-2023 10:40-0400 Heart rate 69 /min NILL [facility] 04-03-2023 10:40-0400 Respiratory rate 32 /min NILL [facility] 04-03-2023 10:40-0400 SaO2% (BldA) [Mass fraction] 96 % NILL [facility] 04-03-2023 10:40-0400 Systolic blood pressure 100 mm[Hg] NILL [facility] 04-03-2023 10:30-0400 Diastolic blood pressure 56 mm[Hg] NILL [facility] 04-03-2023 10:30-0400 Heart rate 65 /min NILL [facility] 04-03-2023 10:30-0400 Respiratory rate 20 /min NILL [facility] 04-03-2023 10:30-0400 SaO2% (BldA) [Mass fraction] 95 % NILL [facility] 04-03-2023 10:30-0400 Systolic blood pressure 93 mm[Hg] NILL [facility] 04-03-2023 10:25-0400 Diastolic blood pressure 59 mm[Hg] NILL [facility] 04-03-2023 10:25-0400 Heart rate 69 /min NILL [facility] 04-03-2023 10:25-0400 Respiratory rate 17 /min NILL [facility] 04-03-2023 10:25-0400 SaO2% (BldA) [Mass fraction] 94 % NILL [facility] 04-03-2023 10:25-0400 Systolic blood pressure 102 mm[Hg] NILL [facility] 04-03-2023 10:20-0400 Blood Pressure Location NILL [facility] 04-03-2023 10:15-0400 Blood Pressure Location NILL [facility] 04-03-2023 10:15-0400 Body temperature 96.8 [degF] NILL [facility] 04-03-2023 09:47-0400 Respiratory rate 18 /min NILL [facility] 04-03-2023 09:24-0400 Blood Pressure Location Michael ALBRIGHT [facility] 04-03-2023 09:24-0400 Body temperature 96.8 [degF] Michael ALBRIGHT [facility] 03-17-2023 11:37-0400 Heart rate 78 /min Demar Valeri [facility] 03-17-2023 11:37-0400 SaO2% (BldA) [Mass fraction] 98 % Demar Valeri [facility] 03-17-2023 11:37-0400 Diastolic blood pressure 63 mm[Hg] Demar Valeri [facility] 03-17-2023 11:37-0400 Mean blood pressure 87 mm[Hg] Demar Valeri [facility] 03-17-2023 11:37-0400 Systolic blood pressure 136 mm[Hg] Demar Valeri [facility] 03-17-2023 11:33-0400 Diastolic blood pressure 114 mm[Hg] Demar Valeri [facility] 03-17-2023 11:33-0400 Heart rate 91 /min Demar Valeri [facility] 03-17-2023 11:33-0400 Respiratory rate 14 /min Demar Valeri [facility] 03-17-2023 11:33-0400 SaO2% (BldA) [Mass fraction] 99 % Demar Valeri [facility] 03-17-2023 11:33-0400 Systolic blood pressure 156 mm[Hg] Demar Valeri [facility] 03-17-2023 10:56-0400 Heart rate 89 /min Demar Valeri [facility] 03-17-2023 10:56-0400 SaO2% (BldA) [Mass fraction] 100 % Demar Valeri [facility] 03-17-2023 10:56-0400 Diastolic blood pressure 87 mm[Hg] Demar Valeri [facility] 03-17-2023 10:56-0400 Mean blood pressure 104 mm[Hg] Demar Valeri [facility] 03-17-2023 10:56-0400 Systolic blood pressure 138 mm[Hg] Demar Valeri [facility] 03-17-2023 10:56-0400 Body temperature 98.06 [degF] Demar Valeri [facility] 03-17-2023 10:56-0400 Respiratory rate 12 /min Demar Valeri [facility] 02-23-2023 12:32-0400 Diastolic blood pressure 97 mm[Hg] Demar Valeri [facility] 02-23-2023 12:32-0400 Heart rate 62 /min Demar Valeri [facility] 02-23-2023 12:32-0400 Mean blood pressure 115 mm[Hg] Demar Valeri [facility] 02-23-2023 12:32-0400 Respiratory rate 12 /min Demar Valeri [facility] 02-23-2023 12:32-0400 Systolic blood pressure 150 mm[Hg] Demar Valeri [facility] 02-20-2023 13:22-0400 Blood Pressure Location Michael ALBRIGHT [facility] 02-20-2023 13:22-0400 Diastolic blood pressure 84 mm[Hg] Michael ROLANDL [facility] 02-20-2023 13:22-0400 Heart rate 72 /min NILL [facility] 02-20-2023 13:22-0400 Respiratory rate 16 /min Michael ROLANDL [facility] 02-20-2023 13:22-0400 Systolic blood pressure 122 mm[Hg] NILL [facility] 04-29-2022 09:28-0400 Blood Pressure Location Vicky LAST [facility] 04-29-2022 09:28-0400 Diastolic blood pressure 71 mm[Hg] Vicky LAST [facility] 04-29-2022 09:28-0400 Heart rate 73 /min Vicky LAST [facility] 04-29-2022 09:28-0400 Respiratory rate 18 /min Vicky LAST [facility] 04-29-2022 09:28-0400 SaO2% (BldA) [Mass fraction] 99 % Vicky LAST [facility] 04-29-2022 09:28-0400 Systolic blood pressure 106 mm[Hg] Vicky LAST [facility] Encounters Encounter Date Encounter Type Care Provider Facility Start: 10-05-2024 End: 10-05-2024 ambulatory Lokesh Mcqueen Facility:[facility] Start: 10-05-2024 End: 10-05-2024 Patient encounter procedure Lokesh Mcqueen [facility] Start: 09-02-2024 End: 09-02-2024 ambulatory Yarelis Mcghee MD Work Phone: [facility] Work Phone: Start: 09-02-2024 End: 09-02-2024 Departed Referred Yarelis Mcghee MD Work Phone: [facility] Start: 08-19-2024 End: 08-19-2024 ambulatory SAM KAISER Facility:[facility] Start: 08-19-2024 End: 08-19-2024 Patient encounter procedure SAM KAISER [facility] Start: 08-11-2024 End: 08-11-2024 Bamboo flowsheet Sydnie Villalobos DPM Work Phone: [facility] Start: 08-11-2024 End: 08-11-2024 Bamboo flowsheet Sydnie Villalobos DPM Work Phone: [facility] Start: 08-11-2024 End: 08-11-2024 Office outpatient visit 15 minutes Sydnie Villalobos DPM Work Phone: [facility] Comment on above: Pes valgus, acquired , right (Primary Dx); Pes valgus, acquired, left; Gastrocnemius equinus of right lower extremity; Gastrocnemius equinus of left lower extremity; Pain in both feet; Cramping of feet; Bilateral leg cramps; 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 Start: 08-11-2024 End: 08-11-2024 ambulatory SYDNIE VILLALOBOS Not Available Start: 08-11-2024 ambulatory [facility] Ambulatory [facility] Start: 07-13-2024 End: 07-13-2024 ambulatory Willie Kaur Facility:[facility] Start: 07-13-2024 End: 07-13-2024 Patient encounter procedure Willie Kaur [facility] Start: 07-06-2024 End: 07-06-2024 ambulatory Claudio Monroe Facility:[facility] Start: 07-06-2024 End: 07-06-2024 Patient encounter procedure Claudio Monroe [facility] Start: 07-06-2024 End: 07-06-2024 ambulatory Claudio Monroe Facility:[facility] Start: 07-06-2024 End: 07-06-2024 Patient encounter procedure Claudio Monroe [facility] Start: 05-08-2024 End: 05-08-2024 Emergency department patient visit Nelsoned Solares [facility] Start: 03-03-2024 End: 03-03-2024 ambulatory SYDNIE VILLALOBOS Not Available Start: 12-18-2023 End: 12-18-2023 ambulatory Willie Kaur Facility:[facility] Start: 12-18-2023 End: 12-18-2023 Patient encounter procedure Willie Kaur [facility] Start: 12-02-2023 Clinisync Result Encounter Antionette LOPEZ Work Phone: [facility] External Department Unsolicited Start: 12-02-2023 Clinisync Result Encounter Antionette LOPEZ Work Phone: [facility] External Department Unsolicited Start: 12-02-2023 Telephone encounter Antionette LOPEZ Work Phone: [facility] Start: 11-30-2023 Clinisync Result Encounter Antionette LOPEZ Work Phone: [facility] External Department Unsolicited Start: 11-30-2023 Clinisync Result Encounter Antionette LOPEZ Work Phone: [facility] External Department Unsolicited Start: 11-25-2023 Clinisync Result Encounter Antionette LOPEZ Work Phone: [facility] External Department Unsolicited Start: 11-25-2023 Clinisync Result Encounter Antionette LOPEZ Work Phone: [facility] External Department Unsolicited Start: 11-25-2023 End: 11-25-2023 [...] Start: 11-20-2023 End: 11-20-2023 ambulatory FRANCO Castillo Facility:[facility] Start: 11-20-2023 End: 11-20-2023 Pain Management Vicky Castillo [facility] Start: 11-17-2023 End: 11-17-2023 ambulatory Landon DOUGLAS Facility:[facility] Start: 11-17-2023 End: 11-17-2023 Patient encounter procedure Landon DOUGLAS [facility] Start: 10-26-2023 End: 10-26-2023 Patient encounter procedure Vicky Castillo [facility] Start: 10-26-2023 End: 10-26-2023 ambulatory Vicky Castillo Facility:[facility] Start: 10-26-2023 End: 10-26-2023 Pain Management Vicky Castillo [facility] Start: 10-07-2023 End: 10-07-2023 ambulatory Claudio Monroe Facility:[facility] Start: 10-07-2023 End: 10-07-2023 Pain Management Claudio Monroe [facility] Start: 09-22-2023 End: 09-22-2023 ambulatory Demar Trammell Facility:[facility] Start: 09-22-2023 End: 09-22-2023 Pain Management Demar Trammell [facility] Start: 09-15-2023 End: 09-15-2023 ambulatory SYDNIE Bronson VILLALOBOS Not Available Start: 08-06-2023 End: 08-06-2023 ambulatory Barry Husain Facility:[facility] Start: 08-06-2023 End: 08-06-2023 Patient encounter procedure Barry Husain [facility] Start: 07-23-2023 End: 07-23-2023 ambulatory Barry Husain Facility:[facility] Start: 07-14-2023 End: 07-14-2023 Hypertension screening status Vicky LAST [facility] Start: 07-14-2023 End: 07-14-2023 Patient encounter procedure Vicky LAST [facility] Start: 06-30-2023 End: 06-30-2023 Patient encounter procedure Landon DOUGLAS [facility] Start: 06-08-2023 End: 06-08-2023 Pain Management Vicky Castillo [facility] Start: 06-05-2023 End: 06-05-2023 Emergency department patient visit Prasad Avalos [facility] Start: 05-04-2023 End: 05-04-2023 Pain Management Vicky Castillo [facility] Start: 04-28-2023 End: 04-28-2023 Patient encounter procedure Vicky LAST [facility] Start: 04-20-2023 End: 04-20-2023 Pain Management Demar Trammell [facility] Start: 04-15-2023 End: 04-15-2023 Patient encounter procedure R NILL General Surgery Nill/Said [facility]ees[facility] Start: 04-03-2023 End: 04-03-2023 Patient encounter procedure R NILL [facility] Start: 03-17-2023 End: 03-17-2023 Pain Management Demar Trammell [facility] Start: 03-03-2023 End: 03-04-[address] YARELIS MCGHEE . Facility:[facility] Start: 02-23-2023 End: 02-23-2023 Pain Management Demar Trammell [facility] Start: 02-20-2023 End: 02-20-2023 Patient encounter procedure R NILL General Surgery Nill[facility] Start: 02-09-2023 End: 02-10-[address] YARELIS MCGHEE . Facility:[facility] Start: 11-05-2022 End: 11-05-[address] YARELIS MCGHEE . Facility:[facility] Start: 10-27-2022 End: 10-27-2022 Patient encounter procedure Vicky LAST [facility] Start: 10-22-2022 End: 10-23-[address] JUAN CARLOS NARVAEZ . Facility:[facility] Start: 09-24-2022 End: 09-24-[address] JUAN CARLOS NARVAEZ . Facility:[facility] Start: 04-29-2022 End: 04-29-2022 Patient encounter procedure Vicky LAST [facility] Start: 12-05-2017 End: 04-15-2018 Ambulatory Adryan Yoon Facility:[facility] Procedures Date Procedure Procedure Detail Performing Clinician Start: 08-19-2024 CT myelogram of lumbar region SAM Esparza Start: 12-02-2023 ALL THYROXINE (T4) FREE Antionette LOPEZ Work Phone: Start: 11-30-2023 ALL LIPID PROFILE (FASTING) Antionette LOPEZ Work Phone: Start: 11-30-2023 ALL THYROID STIM HORMONE Antionette LOPEZ Work Phone: Start: 11-30-2023 [facility] CMP (CMP) (FOR REMOTE [facility] USE) Antionette LOPEZ Work Phone: Start: 11-30-2023 [...] Cardiac catheterization Vicky LAST Start: 04-01-2021 Esophagogastroduodenoscopy Vicyk LAST Start: 10-19-2017 Appendectomy Vicky LAST Start: [...] for malign ant neoplasm of colon [facility] Start: 11-30-2024 Screening for malign ant neoplasm of breast Mammogram [facility] Start: 11-28-2024 End: 11-28-2024 Patient encounter procedure 11/28/2024 9:00 AM EST Office Visit [facility] OB [address] [place] [address] Antionette Yang PA [address] [place] [address] [facility] Start: 08-11-2024 End: 10-24-2024 Patient encounter procedure 08/11/2024 11:00 AM EDT Office Visit [facility] [address] [facility] [place] [id number] Sydnie Villalobos, DPBartolome [address] [place], [place] [id number] Arrived [facility] Comment on above: Arrived Start: 06-19-2024 Influenza vaccination Influenza Vacc ine (#1) [facility] Start: 11-25-2023 End: 11-25-2024 Lipid 1996 panel - Serum or Plasma Lipid panel Lab Routine Well woman exam with routine gynecological exam Well woman exam Expected: 11/25/2023 (Approximate), Expires: 11/25/2024 [facility] Comment on above: Expected: 11/25/2023 (Approximate), Expires: 11/25/2024 Start: 11-25-2023 End: 01-23-2025 MG Breast - bilateral Screening Bilateral screening mammogram Imaging Routine Breast cancer screening by mammogram Expected: 11/25/2023, Expires: 01/23/2025 [facility] Work Phone: Comment on above: Expected: 11/25/2023 , Expires: 01/23/2025 Start: 10-22-2023 Screening for malign ant neoplasm of breast Mammogram [facility] Start: 06-19-2023 Influenza vaccination Influenza Vacc ine (#1) [facility] Start: 2022 Pneumococcal Vaccine : 65+ Years (1 - PCV) Pneumococcal Vaccine: 65+ Years (1 - PCV) [facility] Start: 2022 Pneumococcal Vaccine : 65+ Years (1 of 1 - PCV) Pneumococcal Vaccine: 65+ Years (1 of 1 - PCV) [facility] Start: 1955 Screening for malign ant neoplasm of colon [facility] CBC W Auto Different ial panel - Blood CBC and differential Lab Routine Well woman exam with routine gynecological exam Well woman exam Ordered: 11/25/2023 [facility] Comment on above: Ordered: 11/25/2023 Comprehensive metabo lic 2000 panel - Serum or Plasma Comprehensive metabolic panel Lab Routine Well woman exam with routine gynecological exam Well woman exam Ordered: 11/25/2023 [facility] Comment on above: Ordered: 11/25/2023 Hemoglobin A1c measurement Hemoglobin A1c Lab Routine Well woman exam with routine gynecological exam Well woman exam Ordered: 11/25/2023 [facility] Comment on above: Ordered: 11/25/2023 THIN PREP TIS PAP AN D HR HPV DNA THIN PREP TIS PAP AND HR HPV DNA Pathology and Cytology Routine Well woman exam with routine gynecological exam Ordered: 11/25/2023 [facility] Comment on above: Ordered: 11/25/2023 Thyrotropin [Units/volume] in Serum or Plasma TSH Lab Routine Well woman exam with routine gynecological exam Well woman exam Ordered: 11/25/2023 [facility] Comment on above: Ordered: 11/25/2023 Immunizations Immunization Date Immunization Notes [facility] SARS-CoV-2 (COVID-19 ) mRNA BNT-162b2 vax [facility] 07-02-2021 SARS-CoV-2 (COVID-19 ) mRNA BNT-162b2 vax NILL [facility] 02-22-2021 zoster vaccine recombinant Antionette LOPEZ Work Phone: [facility] 11-12-2020 zoster vaccine recombinant Antionette LOPEZ Work Phone: [facility] NEGATED: Highlighted row has not occurred!12-25-2021 influenza virus vaccine, unspecified formulation Vicky SHALA [facility] NEGATED: Highlighted row has not occurred!10-16-2021 influenza virus vaccine, unspecified formulation Vicky LAST [facility] Payers Date Payer Category Payer Self-pay 2022 Private Health Insurance NABIL [id number] 2022 Unknown AARP AARP [id number] 2022-Present [address] [place] [address] [id number] 2022 Medicare [id number] [id number]. [id number] 2017 Unknown [id number] 1959 Medicare [id number] 1959 Unknown [id number] 1957 Unknown [id number] 2.16.840.1.464192.3.579.2. 593 1957 Unknown [id number] 2.16.840.1.405457.3.579.2. 593 1957 Unknown [id number] 2.16.840.1.950739.3.579.2. 593 1957 Unknown [id number] 2.16.840.1.304520.3.579.2. 593 1957 Unknown [id number] 2.16.840.1.776283.3.579.2. 593 1957 Unknown [id number] 2.16.840.1.973323.3.579.2. 727 1957 Unknown [id number] 2.16.840.1.144983.3.579.2. 727 1957 Unknown [id number] 2.16.840.1.192198.3.579.2. 727 1957 Unknown [id number] 2.16.840.1.862428.3.579.2. 727 1957 Unknown [id number] 2.16.840.1.102543.3.579.2. 727 1957 Unknown [id number] 2.16.840.1.370053.3.579.2. 727 1957 Unknown [id number] 2.16.840.1.327399.3.579.2. 727 1957 Unknown [id number] 2.16.840.1.019727.3.579.2. 727 1957 Unknown [id number] 2.16.840.1.707848.3.579.2. 72 1957 Unknown [id number] 2.16.840.1.805629.3.579.2. 72 1957 Unknown [id number] 2.16.840.1.422681.3.579.2. 727 1957 Unknown [id number] 2.16.840.1.540310.3.579.2. 72 1957 Unknown [id number] 2.16.840.1.628808.3.579.2. 1286 1957 Unknown [id number] 2.16.840.1.507650.3.579.2. 1259 1957 Unknown [id number] 2.16.840.1.247086.3.579.2. 1259 1957 Unknown [id number] 2.16.840.1.887529.3.579.2. 1259 1957 Unknown [id number] 2.16.840.1.246924.3.579.2. 1259 1957 Unknown [id number] 2.16.840.1.588036.3.579.2. 727 1957 Unknown [id number] 2.16.840.1.942951.3.579.2. 727 1957 Unknown [id number] 2.16.840.1.941890.3.579.2. 727 1957 Unknown [id number] 2.16.840.1.680824.3.579.2. 727 Medicaid [id number] Unknown MMO [id number] Unknown Pollock ALFREDO [id number] Unknown [id number] 2.16.840.1.627504.3.579.2. 531 Social History Date Type Detail Facility Start: 12-25-2021 End: 10-05-2024 Tobacco smoking status Never smoked tobacco (finding) [facility] Comment on above: Denies. Start: 11-24-2023 End: 08-11-2024 Sex Assigned At Female [facility] Tobacco smoking status Never [facility] Comment on above: Denies. Tobacco [facility] Comment on above: denies Tobacco smoking status No Smokin g Status Entered [facility] Start: 05-20-2023 Tobacco use and exposure [...] At Not on file [facility] Work Phone: Start: 09-03-2024 Sex Female (finding) [facility] Start: 1955 Sex Assigned At Female [facility] Functional Status Date Assessment Result Facility 10-05-2024 Functional Status N/A [facility] 08-19-2024 Functional Status N/A [facility] 07-13-2024 Functional Status N/A [facility] 07-06-2024 Functional Status N/A [facility] 05-08-2024 Functional Status N/A [facility] 12-18-2023 Functional Status No [facility] 11-20-2023 Functional Status N/A [facility] 11-17-2023 Functional Status No [facility] 10-26-2023 Functional Status N/A [facility] 10-07-2023 Functional Status N/A [facility] 09-22-2023 Functional Status N/A [facility] 07-14-2023 Functional Status No [facility] 06-30-2023 Functional Status No [facility] 06-08-2023 Functional Status N/A [facility] 06-05-2023 Functional Status N/A [facility] 05-04-2023 Functional Status N/A [facility] 04-28-2023 Functional Status No [facility] 04-20-2023 Functional Status N/A [facility] 04-03-2023 Functional Status N/A [facility] 03-17-2023 Functional Status N/A [facility] 02-23-2023 Functional Status N/A [facility] 02-20-2023 Functional Status N/A [facility] 04-29-2022 Functional Status N/A [facility] Clinical Notes 10-08-2021 to 08-11-2024 Sydnie Villalobos [...] bothersome. She has seen her PCP and ophthalmic lens inspector. She understands her water pill may be causing some of the cramping, but she was told she has to stay on it. She is trying to lose weight to improve her BP/HTN and her foot pain. She has tried gabapentin and Requip without improvement. She wears Lenet tennis shoes. She does not currently wear [...] KNEE SURGERY Bilateral Left: 2005; Right: 2015 [place] LAPAROSCOPIC APPENDECTOMY 12/04/2017 [place] REMOVAL OF KIDNEY STONE 2007 Family History [...] Sydnie Villalobos DPM documented in this encounter [facility] 07-06-2024 Note Consultation Note Patient is presenting [...] with any questions or concerns that arise. [facility] Comment on above: Result Comment: Elec tronically Signed By: Claudio Monroe DO\.br\Date and Time Signed: 07/06/24 16:52 EDT 07-06-2024 Evaluation + Plan note Extrac nida from: Title:chronic pain Author:Claudio Monroe DO Date:07/06/24 Patient is presenting with c omplaints of low back pain and left-sided radicular [...] with any questions or concerns that arise. Future Appointments Appointment Date:07/13/2024 03:00:00 PM Scheduled Provider:Willie Kaur MD Location:FT.Cardiology Clinic Appointment Type:Cardiology Follow Up (FT) Appointment Date:08/08/2024 08:15:00 AM Scheduled Provider:Claudio Monroe DO Location[address] Appointment Type:Pain Management - Follow Up (FT) [facility] 07-21-2024 Evaluation + Plan noteExtracted from: Title:ED Note Author:Nelson Solares DO Date: [...] Scheduled Provider:Vincent CANTRELL, Willie Tovar Location:.Cardiology Clinic Appointment Type:Cardiology Follow Up (FT) Diagnostic Tests Pending * Urine Culture 05/08/24 [facility]07-21-2024 Hospital Discharge instructions Patient Education 05/08/2024 09:33:58 [...] if you feel dizzy. General instructions Take hyus-yrf-qoznaut and prescription medicines only as told by [...] provider. Document Revised: 09/04/2021 Document Reviewed: 09/04/2021 [employer] Patient Education 2022 [employer]. 05/08/2024 09:33:58 Urinary Tract Infection, Adult Urinary [...] Treatment for this condition includes: Antibiotic medicine. Hsbe-jxd-neqmbxp medicines to treat discomfort. Drinking enough water [...] Follow these instructions at home: Medicines Take hztm-pmn-pulrmud and prescription medicines only as told by [...] provider. Document Revised: 05/17/2021 Document Reviewed: 05/17/2021 [employer] Patient Education 2022 [employer]. Follow Up Care 05/08/2024 07:16:07 With:Yarelis Mcghee Address: [address] [place] [id number] Business (1) When:05/11/2024 09:31:54 Comments:Call the office [...] you develop any new or worsening symptoms. [facility]07-21-2024 NoteED Patient Education Note Neurology Vertigo Vertigo [...] you feel dizzy. General instructions ? Take hptn-snb-wlhbxox and prescription medicines only as told by [...] provider. Document Revised: 09/04/2021 Document Reviewed: 09/04/2021 [employer]Link Patient Education ? 2022 [employer]. Obstetrics and Gynecology Urinary Tract Infection, Adult [...] have certain medical conditions, (more content not included)...[facility]02-14-2024 Telephone encounter Note* Telephone Encounter - JESSICA Hunt - 12/02/2023 10:41 AM EST Pt notified of wellness lab results and low tsh, t3 and t4 labs ordered for her as well. Pt states she will follow up with her primary care physician, DR Mcghee in next few weeks. She denies any symptoms at this time [id number] Miscellaneous Notes* Telephone Encounter - JESSICA Hunt - 12/02/2023 10:41 AM EST Pt notified of wellness lab results and low tsh, t3 and t4 labs ordered for her as well. Pt states she will follow up with her primary care physician, DR Mcghee in next few weeks. She denies any symptoms at this time documented in this encounterSaint [facility]'s [id number] History of Present illness Narrative* JESSICA Hunt - 11/25/2023 9:00 AM EST Reason for Appointment: Patient ID: Chloe Agarwal is a 68 y.o. female who presents for [facility] Women Visit Patient presents today for Annual [...] KNEE SURGERY Bilateral Left: 2005; Right: 2015 [place] LAPAROSCOPIC APPENDECTOMY 12/04/2017 [place] REMOVAL OF KIDNEY STONE 2007 Allergies Allergen [...] nursing note reviewed. Exam conducted with a regional director of admissions present. Vitals: Estimated body mass index is [...] behalf of: JESSICA Hunt documented in this encounterSaint Luke's [id number] Evaluation + Plan note Extracted from: Title:Pain [...] PM Scheduled Provider:Willie Kaur MD Location:FT.Cardiology Clinic Purchase Appointment Type:Cardiology Follow Up (FT) [facility]01-08-2024 Evaluation + Plan noteExtracted from: Title:Pain [...] PM Scheduled Provider:Vicky Castillo PA-C Location:FT.Pain [facility] Appointment Type:Pain Management - Follow Up (FT) [facility]12-20-2023 Evaluation + Plan noteExtracted from: Title:Right [...] AM Scheduled Provider:Vicky Castillo PA-C Location:FT.[facility] [address] Appointment Type:Pain Management - Follow Up (FT) Appointment Date:11/17/2023 11:30:00 AM Scheduled Provider:Landon DOUGLAS MD Location:.Cardiology Clinic Appointment Type:Cardiology Follow Up (FT) [facility]12-20-2023 Note [id number] 10-07-2023 NoteDiagnosis: M54.16 Lumbar radiculopathy Procedure: [...] and agrees to comply to currently prescribed/recommended therapies.[facility] Comment on above:Result Comment: Electronically Signed By: Claudio Monroe DO.elmo\Date and Time Signed: 10/07/23 09:54 [id number] Evaluation + Plan note Extracted from: Title:FUV [...] Location:FT.Cardiology Clinic Appointment Type:Cardiology Follow Up (FT) [facility]08-21-2023 Evaluation + Plan noteExtracted from: Title:Pain [...] Clinic Appointment Type:Cardiology ED Follow Up (FT) [facility]08-18-2023 Evaluation + Plan noteExtracted from: Title:ED Note Author:RobbiePrasad spencer DO Date:05/19 06/10 Dizziness (R42: Dizziness an d giddiness) Hypertension (I10: Essential (primary) hypertension) Orders: losartan, 50 mg = 1 tab(s), Oral, Daily, X 30 day(s), # 30 tab(s), Refills(s) 0, Pharmacy: [id number], 152.4, cm, 06/05/23 8:54:00 EDT, Height/Length [...] AM Scheduled Provider:Vicky Castillo PA-C Location:FT.[facility] [address] Appointment Type:Pain Management - Follow Up (FT) Appointment Date:07/06/2023 11:00:00 AM Scheduled Provider:Landon DOUGLAS MD Location:FT.Cardiology Clinic Appointment Type:Cardiology ED Follow Up (FT) [facility]08-18-2023 Hospital Discharge instructions Follow Up Care 06/05/2023 08:40:51 With:Yarelis Mcghee Address: [address] [place] [address] [place] [address]- Business (1) When:Within 3 Day(s) [facility]07-17-2023 Evaluation + Plan noteExtracted from: Title:Pain [...] AM Scheduled Provider:Vicky Castillo PA-C Location:FT.[facility] Appointment Type:Pain Management - Follow Up (FT) [facility]06-16-2023 Evaluation + Plan noteExtracted from: Title:ANES Post-operative Note - General Author: Lb Wu Jr., DO Date:04/03/23 Plan Transfer/Discharge: Transfer/Discharge Discharge when meets criteria ( From PACU to Ambulatory Surgery Unit, and To home ). Extracted from: Title:ANES Pre-operative Note - Endo Author:Timothy figueroa Jr. DO Lb Sandy Date:04/03/23 Plan [place] [employer] of Anesthesiologists (ASA) physical status classification: Class III. Anesthetic Preoperative Plan: Anesthesia General, and -TIVA. Future Appointments Appointment Date:04/07/2023 11:00:00 AM Scheduled Provider:Demar Trammell MD Location:FT.[facility] Appointment Type:Pain Management - Follow Up (FT) Appointment Date:04/28/2023 09:00:00 AM Scheduled Provider:Vicky LAST CNP Location:FT.Cardiology Clinic Appointment Type:Cardiology Follow Up (FT) [facility]06-16-2023 Hospital Discharge instructions Patient Education 04/03/2023 [...] unsweetened, w/added ascorbic acid 1 cup 0.5 [place]ajo 1 cup 0.7 Vegetables Cooked Green beans 1 cup 4.0 Carrots 1/2 cup sliced 2.3 Peas 1 cup 8.8 Potato (baked, with skin) 1 medium potato 3.8 Raw [place] (with peel) 1 cucumber 1.5 Lettuce 1 [...] 8.7 Peanuts 1/2 cup 7.9 Chart from UpDate 2013. SEEK IMMEDIATE MEDICAL CARE IF: You [...] Reference. Available at http://www.nal.usda.gov/fnic/foodcomp/search/. Information adapted from: [facility] Patient Information 2009 [employer]. Goumin.com 2012 http://www.nanoTherics/contents/qudzbaodgvdo-wlalwsz-urofih-the-basics 04/03/2023 10:24:14 Colonoscopy, Care After Surgery Salam [...] reduce GERD symptoms. Medicines. These may include: ?Ppjx-qik-ypealwa antacids. ?Medicines that make your stomach empty [...] may include: ?Fatty foods, like fried foods. ?Loíza fruits, like oranges or lemon. ?Other foods [...] Do not drink alcohol. General instructions Take knhs-dzk-umwraeo and prescription medicines only as told by [...] provider. Document Revised: 08/19/2022 Document Reviewed: 09/05/2021 ThinkLink Patient Education 2022 [employer]. 04/03/2023 10:24:03 Endoscopy, Care After Procedure [facility] Endoscopy Care After Procedure Please read [...] blood. Document Released: 05/19/2005 Document Re-Released: 03/29/2007 [facility] Patient Information 2010 [employer]. Follow Up Care 02/23/2023 10:35:27 With:Michael ALBRIGHT [facility] [facility] [address] [address] [facility] (1) When:2 weeks [facility]05-08-2023 Evaluation + Plan noteExtracted from: Title:NPV Author:Demar [...] Appointments Appointment Date:04/03/2023 10:30:00 AM Scheduled Provider: Location:[facility] Appointment Type:Surgery FT Appointment Date:04/28/2023 09:00:00 AM Scheduled Provider:Vicky LAST CNP Location:FT.Cardiology Clinic Appointment Type:Cardiology Follow Up (FT) [facility]12-21-2021 Hospital Discharge instructions Follow Up Care 10/08/2021 14:10:47 With:Landon Douglas MD Address: [address] [place] [phone] When: Unknown [facility] + Plan note Future Appointments Appointment Date:11/05/2022 11:30:00 AM Scheduled Provider:Landon Douglas MD Location:FT.Cardiology Clinic Appointment Type:Cardiology Follow Up (FT) Future Scheduled Tests Laboratory* Lipid Panel 09/05/21 Radiology* Echo Transthoracic Complete 09/29/22 [facility] Plan note Future Appointments Appointment Date:11/05/2022 11:30:00 AM Scheduled Provider:Landon Douglas MD Location:FT.Cardiology Clinic Appointment Type:Cardiology Follow Up (FT) [facility] note Future Appointments Appointment Date:02/23/2023 12:30:00 PM Scheduled Provider:Demar Trammell MD Location:[facility] Appointment Type:Pain Management - New (FT) Appointment Date:04/28/2023 09:00:00 AM Scheduled Provider:Vicky LAST CNP Location:FT.Cardiology Clinic Appointment Type:Cardiology Follow Up (FT) General Surgery Purchase Mementoaluation + Plan note Future Appointments Appointment Date:04/03/2023 10:30:00 AM Scheduled Provider: Location:[facility] Appointment Type:Surgery FT Appointment Date:04/07/2023 11:00:00 AM Scheduled Provider:Demar Trammell MD Location:[facility] Appointment Type:Pain Management - Follow Up (FT) Appointment Date:04/28/2023 09:00:00 AM Scheduled Provider:Vicky LAST CNP Location:FT.Cardiology Clinic Appointment Type:Cardiology Follow Up (FT) [facility] note Future Appointments Appointment Date:04/20/2023 02:15:00 PM Scheduled Provider:Demar Trammell MD Location:[facility] Appointment Type:Pain Management - Office Injection (FT) Appointment Date:04/28/2023 09:00:00 AM Scheduled Provider:Vicky LAST CNP Location:FT.Cardiology Clinic Appointment Type:Cardiology Follow Up (FT) Appointment Date:05/04/2023 09:00:00 AM Scheduled Provider:Vicky Castillo PA-C Location:[facility] Appointment Type:Pain Management - Follow Up (FT) General Surgery Purchase Mementoaluation + Plan note Future Appointments Appointment Date:04/28/2023 09:00:00 AM Scheduled Provider:Vicky LAST CNP Location:FT[facility]Cardiology Clinic Appointment Type:Cardiology Follow Up (FT) Appointment Date:05/04/2023 09:00:00 AM Scheduled Provider:Vicky Castillo PA-C Location:FT.[facility] Appointment Type:Pain Management - Follow Up (FT) [facility] note Future Appointments Appointment Date:05/04/2023 09:00:00 AM Scheduled Provider:Vicky Castillo PA-C Location:FT.[facility] Appointment [facility] Appointments Appointment Date:07/14/2023 09:30:00 AM Scheduled Provider:Vicky LAST CNP Location:FT[facility]Cardiology Clinic Appointment Type:[facility] (FT) [facility] + Plan note Future Appointments Appointment Date:11/17/2023 11:30:00 AM Scheduled Provider:Landon DOUGLAS MD Location:FT.Cardiology Clinic Appointment Type:Cardiology Follow Up (FT) Appointment Date:11/20/2023 01:15:00 PM Scheduled Provider:Vicky Castillo PA-C Location:FT.[facility] Appointment Type:Pain Management - Follow Up (FT) [facility] + Plan note Future Appointments Appointment Date:11/20/2023 01:15:00 PM Scheduled Provider:Vicky Castillo PA-C Location:FT.[facility] Appointment Type:Pain Management - Follow Up (FT) Appointment Date:12/14/2023 10:45:00 AM Scheduled Provider:Barry Husain MD Location:.Pulmonary Clinic Appointment Type:Pulmonary New Patient (FT) Appointment Date:12/18/2023 01:45:00 PM Scheduled Provider:Willie Kaur MD Location:.Cardiology Clinic Purchase Appointment Type:Cardiology [facility] (FT) [facility] Future Appointments Appointment Date:08/08/2024 08:15:00 AM Scheduled Provider:Claudio Monroe DO Location:FT.[facility] Appointment Type:Pain Management - Follow Up (FT) Appointment Date:01/12/2025 09:30:00 AM Scheduled Provider:Lokesh Mcqueen PA-C Location:FT.Cardiology Clinic Appointment Type:Cardiology Follow Up (FT) [facility] evaluation + Plan note Future Appointments Appointment Date:01/12/2025 09:30:00 AM Scheduled Provider:Lokesh Mcqueen PA-C Location:FT.Cardiology Clinic Appointment Type:Cardiology Follow Up (FT) Future Scheduled Tests Radiology* CT Spine Lumbar w/ Contrast 08/15/24 [facility] evaluation + Plan note Future Appointments Appointment Date:07/13/2024 03:00:00 PM Scheduled Provider:Willie Kaur MD Location:.Cardiology Clinic Appointment Type:Cardiology Follow Up (FT) Appointment Date:08/08/2024 08:15:00 AM Scheduled Provider:Claudio Monroe DO Location:FT.[facility] Appointment Type:Pain Management - Follow Up (FT) [facility] evaluation + Plan note Future Appointments Appointment Date:01/13/2025 10:15:00 AM Scheduled Provider:Lokesh Mcqueen PA-C Location:FT.Cardiology Clinic Appointment Type:Cardiology Follow Up (FT) Future Scheduled Tests Radiology* CT Spine Lumbar w/ Contrast 08/15/24 [facility] evaluation note* Diagnosis Well woman exam with routine [...] left foot documented in this encounter [facility] noteNo assessment information availableSelect [facility] Work Phone: Hospital course Narrative No data available for this section [facility] Dis[facility] instructions No data available for this section [facility] HospitalProgress note No data available for this section [facility] Summary Purpose Family History No Family [...] Found Advance Directives No Advanced Directives Records Found Advance Directive Response Recorded Date/ Time Advance Directives No March 01 8 11:02am Additional Source Comments INFORMATION SOURCE (unrecogn ized section and content) DATE CREATED AUTHOR 04/15/2018 [facility] DATE CREATED AUTHOR AUTHOR'S ORGANIZ ATION 03/04/2023 [facility] DATE CREATED AUTHOR AUTHOR'S ORGANIZ ATION 05/10/2024 [facility] DATE CREATED AUTHOR AUTHOR'S ORGANIZ ATION 07/17/2024 [facility] DATE CREATED AUTHOR AUTHOR'S ORGANIZ ATION 08/12/2024 [facility] DATE CREATED AUTHOR AUTHOR'S ORGANIZ ATION 08/12/2024 [facility] DATE CREATED AUTHOR AUTHOR'S ORGANIZ ATION 09/09/2024 [facility] DATE CREATED AUTHOR AUTHOR'S ORGANIZ ATION 10/08/2024 [facility] Care Team (unrecognized sect ion and content) Electrical Engineering Drafting Officer Relationship Specialty Start Date End Date Yarelis Mcghee MD [address] [place] [phone] PCP - General Family Medicine 05/21/23 Electrical Engineering Drafting Officer Relationship Specialty Start Date End Date Yarelis Mcghee MD [address] [facility] [place] [address] PCP - General Family Medicine 05/21/23 Electrical Engineering Drafting Officer Relationship Specialty Start Date End Date Yarelis Mcghee MD [address] [facility] [place] [phone] PCP - General Family Medicine 05/21/23 Electrical Engineering Drafting Officer Relationship Specialty Start Date End Date Yarelis Mcghee MD [address] [facility] [place] [phone] PCP - General Family Medicine 05/21/23 Electrical Engineering Drafting Officer Relationship Specialty Start Date End Date Yarelis Mcghee MD [address] [facility] [place] [phone] PCP - General Family Medicine 05/21/23 Electrical Engineering Drafting Officer Relationship Specialty Start Date End Date Yarelis Mcghee MD [address] [facility] [place] [phone] PCP - General Family Medicine 05/21/23 Team Status: Active Member Role Status Benigno Mcghee MD Primary Care Provider Active Team Status: Inactive Member Role Status Benigno Mcghee MD Primary Care Provider Active Start: September 02, 2024 End: September 02, 2024 NON STAFF Attending Provider Active Start: No vember 2023 End: September 02, 2024 Reason for Visit (unrecogniz ed section and content) Reason Comments Well Women Visit Reason Comments Foot Pain Chloe Agarwal is a 68 y.o. female who presents with concerns of redness on the bottom, pain, leg cramps. Pain is worse when laying down, toes curl and pain shoots up her leg. SS 7.5 Goals (unrecognized section and content) Goals may be documented in a n alternate section FOR RECORDS PERTAINING TO PATIENTS WHO ARE [...] BE BASED ON THE PRIMARY CLINICAL RECORDS. [facility] [employer] [facility]. provides no warranty or guarantee of the accuracy or completeness of information in this document.
[2024-11-09 09:13] LABS: Basophils Absolute Auto 0.1 10^3/uL (0.0-0.1); Basophils Percent Auto 0.9 % (0.2-2.0); Eosinophils Absolute Auto 0.1 10^3/uL (0.0-0.7); Eosinophils Percent Auto 1.9 % (0.9-7.0); Hemoglobin 12.3 g/dL (12.0-16.0); Immature Granulocytes Abs Auto 0.03 10^3/uL (0.00-0.03); Immature Granulocytes Pct Auto 0.5 % (0.0-0.5); Lymphocytes Absolute Auto 1.2 10^3/uL (1.2-3.8); Lymphocytes Percent Auto 21.3 % (20.5-60.0); Mean Corpuscular HGB Conc 32.4 g/dL (29.9-35.2); Mean Corpuscular Volume 95.7 fL (81.0-99.0); Mean Platelet Volume 9.6 fL (9.5-13.5); Monocytes Absolute Auto 0.4 10^3/uL (0.3-0.8); Monocytes Percent Auto 7.5 % (1.7-12.0); Neutrophils Percent Auto 67.9 % (43.0-75.0); Platelet Count 230 10^3/uL (150-450); Red Blood Count 3.97 10^6/uL (4.20-5.40); Red Cell Distribution Width 12.1 % (11.0-15.0); White Blood Count 5.8 10^3/uL (4.0-11.0)
[2024-11-09 09:15] LABS: Erythrocyte Sedimentation Rate 8 mm/hr (<=30)
[2024-11-09 09:23] LABS: Estimated Average Glucose 117 mg/dL; Glycohemoglobin A1C 5.7 % (4.5-6.2)
[2024-11-09 09:28] LABS: INR 1.02; Partial Thromboplastin Time 25.4 sec (22.3-36.2); Prothrombin Time 10.8 sec (9.0-11.6)
[2024-11-09 10:39] LABS: Alanine Aminotransferase 27 U/L (14-59); Albumin Globulin Ratio 1.4; Albumin Level 3.8 g/dL (3.4-5.0); Alkaline Phosphatase 46 U/L (46-116); Anion Gap 9.3; Aspartate Amino Transferase 16 U/L (15-37); BUN Creatinine Ratio 25.7; Bilirubin Total 1.1 mg/dL (0.2-1.0); C Reactive Protein <0.50 mg/dL (<=0.50); Calcium 8.8 mg/dL (8.5-10.1); Carbon Dioxide 30.7 mmol/L (21.0-32.0); Chloride 106 mmol/L (98-107); Chol HDL Ratio 3.8; Cholesterol 226 mg/dL (<=200); Estimated GFR (African America >60 (>=60 mL/min/1.73m^2); Estimated GFR (Non-African Ame 52 (>=60 mL/min/1.73m^2); Free T3 2.73 pg/mL (2.18-3.98); Globulin 2.8 g/dL; Glucose 98 mg/dL (74-106); HDL Cholesterol 59 mg/dL (40-60); Sodium 142 mmol/L (136-145); Thyroid Stimulating Hormone 1.364 uIU/mL (0.358-3.740); Total Protein 6.6 g/dL (6.4-8.2); Triglycerides 114 mg/dL (<=150); Uric Acid 5.3 mg/dL (2.6-6.0); VLDL CHOLESTEROL 22.8 mg/dL
[2024-11-10 04:08] LABS: Antistreptolysin O Ab 228.9 IU/mL (0.0-200.0); Rheumatoid Factor (RF) <10.0 IU/mL (<14.0)
[2024-11-10 08:09] LABS: Insulin 12.1 uIU/mL (2.6-24.9)
[2024-11-11 10:12] LABS: Antinuclear Antibodies, IFA Positive (.)
== END 2024-11-09 08:37 | disposition home or self-care (01) ==
LOC: LAB 08:39
PROVIDERS: PCP Family Medicine; Visit Provider Family Medicine
DX: E04.1 Nontoxic single thyroid nodule (principal); I10 Essential (primary) hypertension; G25.81 Restless legs syndrome; R23.3 Spontaneous ecchymoses
CPT/HCPCS: 36415; 80053; 80061; 82306; 83036; 83525; 83540; 84436; 84443; 84481; 84550; 85025; 85610; 85652; 85730; 86038; 86060; 86140; 86431

== ENCOUNTER 2024-11-10 09:17 | Outpatient (REF) | payer MEDICARE, SELFPAY ==
[2024-11-11 14:21] LABS: Internal Control Within Normal Limits; Occult Blood Positive
== END 2024-11-10 09:18 | disposition home or self-care (01) ==
LOC: LAB 09:17
PROVIDERS: PCP Family Medicine; Visit Provider Family Medicine
DX: G25.81 Restless legs syndrome (principal); I10 Essential (primary) hypertension; E04.1 Nontoxic single thyroid nodule; R23.3 Spontaneous ecchymoses
CPT/HCPCS: G0328

== ENCOUNTER 2024-11-28 21:59 | Outpatient (REF) | payer MEDICARE, SELFPAY ==
--- OUTSIDE RECORDS SUMMARY | 2024-11-28 22:04 | XMS_ITS | CCD ---
Author Organization [facility] Care Team Providers Care Lehr Stripper Name Role Phone Car Adryan Unavailable Unavailable Car Adryan Unavailable Unavailable VICK MCGHEE Unavailable Unavailable Fernie Sandoval Unavailable Unavailable Vick Mcghee Primary Care Physician BRICE ., DR RANGEL Admitting Unavailabl e KARОЛЕГK ., DR RANGEL Consulting Unavailabl e KARОЛЕГK ., DR RANGEL Attending Unavailabl e MISC, DR MORRISSEY Primary Care Unavailable HOY ., DR SANTOYO Primary Care Unavailable ZIEBLILIA, [...] KARASIK ., DR RANGEL Attending Unavailabl e ZIEBLILIA, DR RYAN Billingsley Consulting Unavailable Vick Mcghee MD Primary Care Provider Nelson Solares Attending Unavailable Demar Trammell Admitting Unavailable Demar Trammell Attending Unavailable Vick Mcghee Referring Unavailable Landon DOUGLAS Admitting Unavailable Landon DOUGLAS Attending Unavailable NONE, XXXX Referring Unavailable Willie Kaur Attending Unavaila ble NONE, XXXX Referring Unavailable Willie Kaur Attending Unavaila ble NONE, XXXX Referring Unavailable Claudio Monroe Admitting Unavailable Claudio Monroe Attending Unavailable Claudio Monroe Referring Unavailable Vicky Castillo Admitting Unavailable Anna, Vicky Attending Unavailable Nelson Solares Attending Unavailable Husain, Basem GRuba Attending Unavailable Husain, Basem GRuba Referring Unavailable Husain, Basem G. Admitting Unavailable Husain, Basem GRuba Attending Unavailable Landon DOUGLAS Referring Unavailable MEENAKSHI CastilloC Vicky Admitting Unavailabl e Castillo, Vicky Attending Unavailable Vick Mcghee Referring Unavailable CastilloJESSICA-C Vicky Admitting Unavailabl e Castillo, Vicky Attending Unavailable Vick Mcghee Referring Unavailable ANTIONETTE YANG Attending Unavailable SYDNIE VILLALOBOS Attending Unavailable YSDNIE VILLALOBOS Attending Unavailable SYDNIE VILLALOBOS Attending Unavailable Vick Mcghee MD Primary Care Provider [phone] NON STAFF Attending Provider Unavailable NON STAFF Attending Unavailable NON STAFF Admitting Unavailable Vick Mcghee Primary Care Unavailable Claudio Monroe Attending Unavailable Claudio Monroe Admitting Unavailable Darshan Laughlin H Attending Unavailable Vick Mcghee Referring Unavailable Claudio Monroe Attending Unavailable Claudio Monroe Admitting Unavailable NONE, XXXX Referring Unavailable Lokesh Mcqueen Attending Unavailable Lokesh Mcqueen Admitting Unavailable SAM KAISER Attending Unavailable SAM KAISER Admitting Unavailable SAM KAISER Referring Unavailable MICHELLEKKARI, Mbanefo Attending Unavailable VÍCTOR Mbanefo Admitting Unavailable [facility] Cardio, XXXX Consulting Unavailable Baldomero Hurtado Consulting Unavailable Jayden Santos Admitting Unavailable Jayden Santos Attending Unavailable Baldomero Hurtado Consulting Unavailable MD Baldomero Hurtado Consulting Unavailable [facility] Cardio, XXXX Consulting Unavailable Allergies Allergy Classification Reported Allergen(s) Allergy Type Date of Onset Reaction(s) Facility (1 source) Sulfonamide; Translations: [sulfonamide] Propensity to adverse reactions to drug (disorder) [facility] (20 sources) Sulfonamides (Antibiotic); Translations: [sulfa drugs] Drug allergy unknown [facility] (20 sources) Lisinopril; Translations: [lisinopril] Drug Allergy Coughing - function (qualifier value) [facility] (1 source) Sulfonamides (Antibiotic) Drug allergy (disorder) [facility] Rep[facility] (20 sources) gabapentin; Translations: [gabapentin] Drug Allergy 3 Headache (finding), Headache [facility] (9 sources) Lisinopril Propensity to adverse reactions 3 [facility] (9 sources) Sulfonamides (Antibiotic) Drug Allergy 3 [facility] (9 sources) Baclofen; Translations: [baclofen] Drug Allergy Hand pain (finding), Menopausal flushing (finding), Bilateral weakness of upper limbs, Weakness of bilateral lower limb, Numbness of limbs (finding) [facility] (9 sources) DULoxetine; Translations: [duloxetine] Drug Allergy 4 Vomiting (disorder) [facility] Medications Current Medications Medication Drug Class(es) [...] Daily, # 30 tab(s), Refills(s) 2, Pharmacy: [facility], 152, cm, 10/05/24 11:36:00 EST, Height/Length Dosing, 75.8, kg, 10/05/24 11:40:00 EST, Weight Dosing Start Date: 10/05/24 Status: Ordered cephalexin 500 mg oral capsule (1 source) Cephalosporin Antibacterial Start: 05-08-2024 End: 05-13-2024 take 1 capsule by mouth every twelve hours Keflex 500 mg Cap 500 mg = 1 cap(s), Oral, q12hr, X 5 day(s), # 10 cap(s), Refills(s) 0, Pharmacy: [facility], 152, cm, 05/08/24 7:24:00 EDT, Height/Length [...] BID, # 60 cap(s), Refills(s) 0, Pharmacy: [facility], 152, cm, 05/04/23 8:55:00 EDT, Height/Length Dosing, 72.6, kg, 05/04/23 8:55:00 EDT, Weight Dosing Start Date: 05/04/23 Status: Ordered hydroCHLOROthiazide 12.5 mg oral capsule (19 sources) Thiazide Diuretic Start: 11-17-2023 take 1 capsule by mouth once daily hydrochlorothiazide 12.5 mg Cap 12.5 mg = 1 cap(s), Oral, Daily, # 30 cap(s), Refills(s) 5, Pharmacy: [facility], 152, cm, 12/18/23 13:31:00 EST, Height/Length [...] day(s), # 9 tab(s), Refills(s) 0, Pharmacy: [facility], 152, cm, 05/08/24 7:24:00 EDT, Height/Length Dosing, 77.2, kg, 05/08/24 7:33:00 EDT, Weight Dosing Start Date: 05/08/24 Stop Date: 05/11/24 Status: Ordered losartan potassium 100 mg oral tablet (20 sources) Angiotensin 2 Receptor Hermilo Start: 07-13-2024 take 1 tablet by mouth at bedtime losartan 100 mg Tab 100 mg = 1 tab(s), Oral, Bedtime, # 90 tab(s), Refills(s) 3, Pharmacy: [facility], 152, cm, 07/13/24 15:04:00 EDT, Height/Length Dosing, 75, kg, 07/13/24 15:04:00 EDT, Weight Dosing Start Date: 07/13/24 Status: Ordered Start: 12-18-2023 take 1 tablet by herberth th at bedtime losartan 100 mg Tab 100 mg = 1 tab(s), Oral, Bedtime, # 90 tab(s), Refills(s) 3, Pharmacy: [facility], 152, cm, 12/18/23 13:31:00 EST, Height/Length Dosing, 79.2, kg, 12/18/23 13:37:00 EST, Weight Dosing Start Date: 12/18/23 Status: Ordered Start: 07-14-2023 take 1 tablet by herberth th at bedtime losartan 100 mg Tab 100 mg = 1 tab(s), Oral, Bedtime, # 90 tab(s), Refills(s) 1, Pharmacy: [facility], 152, cm, 07/14/23 9:26:00 EDT, Height/Length Dosing, 76.9, kg, 07/14/23 9:26:00 EDT, Weight Dosing Start Date: 07/14/23 Status: Ordered Start: 06-30-2023 End: 07-30-2023 take 1 tablet by mouth twice daily losartan 50 mg Tab 50 mg = 1 tab(s), Oral, BID, X 30 day(s), # 60 tab(s), Refills(s) 0, Pharmacy: [facility], 152, cm, 06/30/23 15:07:00 EDT, Height/Length Dosing, 77.5, kg, 06/30/23 15:07:00 EDT, Weight Dosing Start Date: 06/30/23 Stop Date: 07/30/23 Status: Ordered Start: 06-05-2023 End: 07-05-2023 take 1 tablet by mouth once daily losartan 50 mg Tab 50 mg = 1 tab(s), Oral, Daily, X 30 day(s), # 30 tab(s), Refills(s) 0, Pharmacy: [facility], 152.4, cm, 06/05/23 8:54:00 EDT, Height/Length Dosing, 73, kg, 06/05/23 8:54:00 EDT, Weight Dosing Start Date: 06/05/23 Stop Date: 07/05/23 Status: Ordered Start: 11-05-2022 End: 10-31-2023 take 1 tablet by mouth once daily Cozaar 25 mg Tab 25 mg = 1 tab(s), Oral, Daily, stopping Lisinopril Starting Cozaar, X 90 day(s), # 90 tab(s), Refills(s) 3, Pharmacy: [facility], 152, cm, 11/05/22 11:35:00 EST, Height/Length [...] dizziness, # 30 tab(s), Refills(s) 0, Pharmacy: [facility], 152, cm, 05/08/24 7:24:00 EDT, Height/Length [...] day(s), # 21 tab(s), Refills(s) 0, Pharmacy: [facility], 152, cm, 09/22/23 11:39:00 EST, Height/Length [...] Daily, # 180 tab(s), Refills(s) 3, Pharmacy: [facility], 152, cm, 07/13/24 15:04:00 EDT, Height/Length Dosing, 75, kg, 07/13/24 15:04:00 EDT, Weight Dosing Start Date: 07/13/24 Status: Ordered Start: 06-30-2023 End: 12-27-2023 take 1 tablet by mouth once daily metoprolol 50 mg ER Tab 50 mg = 1 tab(s), Oral, Daily, # 90 tab(s), Refills(s) 1, Pharmacy: [facility], 152, cm, 07/14/23 9:26:00 EDT, Height/Length Dosing, 76.9, kg, 07/14/23 9:26:00 EDT, Weight Dosing Start Date: 07/14/23 Status: Ordered Start: 11-14-2022 take 1 tablet by herberth th once daily metoprolol 25 mg ER Tab 25 mg = 1 tab(s), Oral, Daily, # 90 tab(s), Refills(s) 3, Pharmacy: [facility], 152, cm, 11/05/22 11:35:00 EST, Height/Length Dosing, 76, kg, 11/05/22 11:35:00 EST, Weight Dosing Start Date: 11/14/22 Status: Ordered Start: 10-08-2021 End: 10-03-2022 take 1 tablet by mouth once daily Toprol XL 25 mg Tab-ER 25 mg = 1 tab(s), Oral, Daily, X 90 day(s), # 90 tab(s), Refills(s) 3, Pharmacy: [facility], 152, cm, 10/08/21 13:49:00 EST, Height/Length [...] BID, # 120 tab(s), Refills(s) 0, Pharmacy: [facility], 152.4, cm, 04/01/21 7:20:00 EDT, Height/Length [...] BID, # 60 cap(s), Refills(s) 0, Pharmacy: [facility], 152, cm, 10/26/23 13:07:00 EST, Height/Length [...] QID, # 120 tab(s), Refills(s) 3, Pharmacy: [facility], 152, cm, 04/03/23 9:20:00 EDT, Height/Length [...] q8hr, # 12 tab(s), Refills(s) 0, Pharmacy: [facility], 152, cm, 05/08/24 7:24:00 EDT, Height/Length [...] day(s), # 90 tab(s), Refills(s) 0, Pharmacy: [facility], 152, cm, 07/06/24 15:10:00 EDT, Height/Length [...] day(s), # 60 cap(s), Refills(s) 0, Pharmacy: [facility], 152, cm, 07/06/24 15:10:00 EDT, Height/Length [...] Test Name Value Interpretation Reference Range Facility ED Note-Physicianon 11-17-19 25 ED Note-Physician ED Note-Physician Basic Information Opened in error Assessment/Plan Normal [facility] Comment on above: Result Comment: Elec tronically Signed By: Qian Jimenes, Darshan H\.br\Date and Time Signed: 11/15/24 15:23 EST BMPon 11-16-2024 Anion gap [Moles/Vol] 10 mmol/L Normal 6-16 [facility] Comment on above: Performed By: #### 2 [id number] #### [facility] [address] [place] [address] Calcium [Mass/Vol] 9.2 mg/dL Normal 8.9-11.1 [facility] Comment on above: Performed By: #### 2 [id number] #### [facility] [address] [place] [address] Chloride [Moles/Vol] 107 mmol/L Normal 101-111 [facility] Comment on above: Performed By: #### 2 [id number] #### [facility] [address] [place] [address] CO2 [Moles/Vol] 26 mmol/L Normal 21-31 [facility] Comment on above: Performed By: #### 2 [id number] #### [facility] [address] [place] [address] Creatinine [Mass/Vol] 0.7 mg/dL Normal 0.5-1.3 [facility] Comment on above: Performed By: #### 2 [id number] #### [facility] [address] [place] [address] Glucose [Mass/Vol] 105 mg/dL Normal 55-199 [facility] Comment on above: Performed By: #### 2 [id number] #### [facility] [address] [place] [address] Potassium [Moles/Vol] 4.0 mmol/L Normal 3.5-5.3 [facility] Comment on above: Performed By: #### 2 [id number] #### [facility] [address] [place] [address] Sodium [Moles/Vol] 139 mmol/L Normal 135-145 [facility] Comment on above: Performed By: #### 2 [id number] #### [facility] [address] [place] [address] Urea nitrogen [Mass/Vol] 23 mg/dL High 5-21 [facility] Comment on above: Performed By: #### 2 [id number] #### [facility] [address] [place] [address] Urea nitrogen/Creatinine [Mass ratio] 33 No Units High 10-20 [facility] Comment on above: Performed By: #### 2 [id number] #### [facility] [address] [place] [address] CBC w/ Auto Diffon 5 Basophils/100 WBC (Bld) 0.8 % Normal 0.0-2.0 [facility] Comment on above: Performed By: #### 2 [id number] #### [facility] [address] [place] [address] Basophils/Leukocyte s Auto (Bld) [Pure # fraction] 0.1 E9/L Normal 0.0-0.2 [facility] Comment on above: Performed By: #### 2 [id number] #### [facility] [address] [place] [address] Eosinophils (Bld) [#/Vol] 0.1 E9/L Normal 0.0-0.5 [facility] Comment on above: Performed By: #### 2 [id number] #### [facility] [address] [place] [address] Eosinophils/100 WBC (Bld) 1.5 % Normal 0.0-8.0 [facility] Comment on above: Performed By: #### 2 [id number] #### [facility] [address] [place] [address] Erythrocyte distribution width (RBC) [Ratio] 12.7 % Normal 10.9-14.2 [facility] Comment on above: Performed By: #### 2 [id number] #### [facility] [address] [place] [address] Hematocrit (Bld) [Volume fraction] 36.3 % Normal 34.0-46.0 [facility] Comment on above: Performed By: #### 2 [id number] #### [facility] [address] [place] [address] Hemoglobin (Bld) [Mass/Vol] 12.4 g/dL Normal 12.0-16.0 [facility] Comment on above: Performed By: #### 2 [id number] #### [facility] [address] [place] [address] Lymphocytes (Bld) [#/Vol] 0.9 E9/L Low 1.0-4.0 [facility] Comment on above: Performed By: #### 2 [id number] #### [facility] [address] [place] [address] Lymphocytes/100 WBC (Bld) 12.6 % Low 14.0-50.0 [facility] Comment on above: Performed By: #### 2 [id number] #### [facility] [address] [place] [address] MCH (RBC) [Entitic mass] 31.5 pg Normal 27.0-34.0 [facility] Comment on above: Performed By: #### 2 [id number] #### [facility] [address] [place] [address] MCHC (RBC) [Mass/Vol] 34.1 g/dL Normal 31.4-36.0 [facility] Comment on above: Performed By: #### 2 [id number] #### [facility] [address] [place] [address] MCV (RBC) [Entitic vol] 92.4 fL Normal 80.0-100.0 [facility] Comment on above: Performed By: #### 2 [id number] #### [facility] [address] [place] [address] Monocytes (Bld) [#/Vol] 0.7 E9/L Normal 0.2-1.0 [facility] Comment on above: Performed By: #### 2 [id number] #### [facility] [address] [place] [address] Neutrophils (Bld) [#/Vol] 5.7 E9/L Normal 2.0-7.5 [facility] Comment on above: Performed By: #### 2 [id number] #### [facility] [address] [place] [address] Neutrophils/100 WBC (Bld) 76.3 % High 36.0-75.0 [facility] Comment on above: Performed By: #### 2 [id number] #### [facility] [address] [place] [address] Platelet mean volume (Bld) [Entitic vol] 8.2 fL Normal 6.4-10.8 [facility] Comment on above: Performed By: #### 2 [id number] #### [facility] [address] [place] [address] Platelets (Bld) [#/Vol] 229.0 E9/L Normal 150.0-500. 0 [facility] Comment on above: Performed By: #### 2 [id number] #### [facility] [address] [place] [address] RBC (Bld) [#/Vol] 3.9 E12/L Low 4.3-5.9 [facility] Comment on above: Performed By: #### 2 [id number] #### [facility] [address] [place] [address] WBC corrected for nucl RBC Auto (Bld) [#/Vol] 7.4 E9/L Normal 4.0-11.0 [facility] Comment on above: Performed By: #### 2 [id number] #### [facility] [address] [place] [address] Discharge Note-Nursingon Discharge Note-Nursing Discharge Note-Nursing CHLOE AGARWAL :1955 Visit Date:11/15/2024 Inpatient Discharge Instructions Your Care Team Admitting Physician - VÍCTOR CANTRELL, Aileen Consulting Physician - [facility] Cardio, XXXX Bryant CANTRELL, Baldomero Reason for Your Visit chest pain Your Diagnosis Chest pain Non-cardiac chest pain HTN (hypertension) Chronic GERD Chest pain Tests Performed Echo Transthoracic Complete XR Chest Single View [facility] (Adult Blood Pressure Monitor with Large Bicep Cuff) clonidine (cloNIDine 0.1 mg tab) losartan (losartan 100 mg Tab) metoprolol (metoprolol succinate 50 mg ER Tab) naproxen (Aleve 220 mg oral capsule) pantoprazole (Protonix 40 mg Tab-DR) Procedure History CT myelogram of lumbar region (08/19/2024), Injection of nerve root of lumbar spine [...] and removal of kidney stone. Discharge Vitals Temperature (Axillary) 36.7 ???C Heart Rate (Monitored) 66 Respiratory Rate 17 Blood Pressure 119/77 Weight 75 kg What to do next Instructions From Your Doctor Event Name Event Result Pending Diagnostic Test Results None Discharge Instructions Please return to ER if symptoms change or worsen. Please call for outpatient stress test. Please follow-up with cardiology. Previously Scheduled Follow-Up Appointments Thursday 10:15 AM EDT With: Richar GAMEZ, Lokesh Brito Where: [facility] New Follow Up Appointments after Discharge Follow Up with Bryant CANTRELL, Baldomero, STAN When: Within 1 to 2 weeks Comments: Call for followup appointment Where: Medications What How Much When Why Instructions Next Dose Changed metoprolol (metoprolol succinate 50 mg ER Tab) 1 Tablets By Mouth Every day Pickup at [facility] 11/17 @ 9 am Unchanged clonidine (cloNIDine 0.1 mg tab) 1 Tablets By Mouth 2 times a day 11/16 @ 9 pm Unchanged losartan (losartan 100 mg Tab) 1 Tablets By Mouth At bedtime 11/16 @ 9 pm Unchanged Misc Prescription (Adult Blood Pressure Monitor with Large Bicep Cuff) See instructions Hypertension Check BP Daily Dx I10 n/a Unchanged naproxen (Aleve 220 mg oral capsule) 2 Capsules By Mouth Every 8 hours as needed for as needed for pain As needed for pain Unchanged pantoprazole (Protonix 40 mg Tab-DR) 1 Tablets By Mouth 2 times a day Chronic GERD 11/16 @ 9 pm Pharmacy Information [facility]: [address] [place], [place] [id number] [phone] Test Results CBC BMP WBC: 7.4 E9/L (11/16/24 05:03:00) Glucose Lvl: 105 mg/dL (11/16/24 05:03:00) RBC: 3.9 E12/L Low (11/16/24 05:03:00) BUN: 23 mg/dL High (11/16/24 05:03:00) HGB: 12.4 gm/dL (11/16/24 05:03:00) Creatinine: 0.7 mg/dL (11/16/24 05:03:00) Hct: 36.3 % (11/16/24 05:03:00) BUN/Creat Ratio: 33 High (11/16/24 05:03:00) MCV: 92.4 fL (11/16/24 05:03:00) Sodium Lvl: 139 mmol/L (11/16/24 05:03:00) MCH: 31.5 pg (11/16/24 05:03:00) Potassium Lvl: 4 mmol/L (11/16/24 05:03:00) MCHC: 34.1 gm/dL (11/16/24 05:03:00) Chloride: 107 mmol/L (11/16/24 05:03:00) RDW: 12.7 % (11/16/24 05:03:00) CO2: 26 mmol/L (11/16/24 05:03:00) Platelet: 229 E9/L (11/16/24 05:03:00) AGAP: 10 mEq/L (11/16/24 05:03:00) MPV: 8.2 fL (11/16/24 05:03:00) Calcium Lvl: 9.2 mg/dL (11/16/24 05:03:00) Allergies DULoxetine (Vomiting) baclofen (Hand pain, Hot flashes, Weakness of bilateral upper extremities, Weakness of bilateral lower extremities, Numbness of limbs) gabapentin (Headache) lisinopril (Coughing) sulfa drugs (unknown) [...] Gastro-esophageal reflux disease Sinus drainage [employer] Chest Wall Pain Chest wall pain is pain in or around the bones and muscles of your chest. Chest wall pain may be caused by: ??? An injur (more content not included)... Normal [facility] Interdisciplinary Note - Mario e Manageron 11-16-2024 Interdisciplinary Note - Spring Tacker Interdisciplinary Note - Spring Tacker CRM to room 315 Patient is awake, alert and oriented. Patient is from home with her Spouse. He is [place] ride [place]. Patient verified PCP, DME and insurance. Patient is an observation. Patient came in with CP. She is assigned to Dr Santos, see notes. She has cardiology consult. She has SS consults for AD ( per patient she has these already) CRM did tell her if she brings in copies we can add to her chart. Per Dr santos she will get an ECHO Stress test today. Patient declines any concerns to DC home. Patient declines any needs for DME, HH or Paramed. Patient was provided CRM contact, white board updated. Patient is a possible DC if cardiac work up negative Normal [facility] Comment on above: Result Comment: Elec tronically Signed By: Leonila Vaqsuez\.br\Date and Time Signed: 11/16/24 11:14 EST eGFRon 11-16-2024 eGFR 95 mL/min/1.73 m2 Normal >=59 [facility] Comment on above: Performed By: #### 1 [id number] #### [facility] [address] [place] [address] BMPon 11-15-2024 Anion gap [Moles/Vol] 12 mmol/L Normal 6-16 [facility] Comment on above: Performed By: #### 2 [id number] #### [facility] [address] [place] [address] Calcium [Mass/Vol] 9.4 mg/dL Normal 8.9-11.1 [facility] Comment on above: Performed By: #### 2 [id number] #### [facility] [address] [place] [address] Chloride [Moles/Vol] 105 mmol/L Normal 101-111 [facility] Comment on above: Performed By: #### 2 [id number] #### [facility] [address] [place] [address] CO2 [Moles/Vol] 26 mmol/L Normal 21-31 [facility] Comment on above: Performed By: #### 2 [id number] #### [facility] [address] [place] [address] Creatinine [Mass/Vol] 1.0 mg/dL Normal 0.5-1.3 [facility] Comment on above: Performed By: #### 2 [id number] #### [facility] [address] [place] [address] Glucose [Mass/Vol] 101 mg/dL Normal 55-199 [facility] Comment on above: Performed By: #### 2 [id number] #### [facility] [address] [place] [address] Potassium [Moles/Vol] 3.7 mmol/L Normal 3.5-5.3 [facility] Comment on above: Performed By: #### 2 [id number] #### [facility] [address] [place] [address] Sodium [Moles/Vol] 139 mmol/L Normal 135-145 [facility] Comment on above: Performed By: #### 2 [id number] #### [facility] [address] [place] [address] Urea nitrogen [Mass/Vol] 27 mg/dL High 5-21 [facility] Comment on above: Performed By: #### 2 [id number] #### [facility] [address] [place] [address] Urea nitrogen/Creatinine [Mass ratio] 27 No Units High 10-20 [facility] Comment on above: Performed By: #### 2 [id number] #### [facility] [address] [place] [address] CBC w/ Auto Diffon 5 Basophils/100 WBC (Bld) 0.9 % Normal 0.0-2.0 [facility] Comment on above: Performed By: #### 2 [id number] #### [facility] [address] [place] [address] Basophils/Leukocyte s Auto (Bld) [Pure # fraction] 0.1 E9/L Normal 0.0-0.2 [facility] Comment on above: Performed By: #### 2 [id number] #### [facility] [address] [place] [address] Eosinophils (Bld) [#/Vol] 0.1 E9/L Normal 0.0-0.5 [facility] Comment on above: Performed By: #### 2 [id number] #### [facility] [address] [place] [address] Eosinophils/100 WBC (Bld) 1.2 % Normal 0.0-8.0 [facility] Comment on above: Performed By: #### 2 [id number] #### [facility] [address] [place] [address] Erythrocyte distribution width (RBC) [Ratio] 12.5 % Normal 10.9-14.2 [facility] Comment on above: Performed By: #### 2 [id number] #### [facility] [address] [place] [address] Hematocrit (Bld) [Volume fraction] 38.3 % Normal 34.0-46.0 [facility] Comment on above: Performed By: #### 2 [id number] #### [facility] [address] [place] [address] Hemoglobin (Bld) [Mass/Vol] 13.2 g/dL Normal 12.0-16.0 [facility] Comment on above: Performed By: #### 2 [id number] #### [facility] [address] [place] [address] Lymphocytes (Bld) [#/Vol] 1.3 E9/L Normal 1.0-4.0 [facility] Comment on above: Performed By: #### 2 [id number] #### [facility] [address] [place] [address] Lymphocytes/100 WBC (Bld) 14.1 % Normal 14.0-50.0 [facility] Comment on above: Performed By: #### 2 [id number] #### [facility] [address] [place] [address] MCH (RBC) [Entitic mass] 31.3 pg Normal 27.0-34.0 [facility] Comment on above: Performed By: #### 2 [id number] #### [facility] [address] [place] [address] MCHC (RBC) [Mass/Vol] 34.3 g/dL Normal 31.4-36.0 [facility] Comment on above: Performed By: #### 2 [id number] #### [facility] [address] [place] [address] MCV (RBC) [Entitic vol] 91.1 fL Normal 80.0-100.0 [facility] Comment on above: Performed By: #### 2 [id number] #### [facility] [address] [place] [address] Monocytes (Bld) [#/Vol] 0.7 E9/L Normal 0.2-1.0 [facility] Comment on above: Performed By: #### 2 [id number] #### [facility] [address] [place] [address] Neutrophils (Bld) [#/Vol] 6.8 E9/L Normal 2.0-7.5 [facility] Comment on above: Performed By: #### 2 [id number] #### [facility] [address] [place] [address] Neutrophils/100 WBC (Bld) 75.8 % High 36.0-75.0 [facility] Comment on above: Performed By: #### 2 [id number] #### [facility] [address] [place] [address] Platelet 259.0 E9/L Normal 150.0-500. 0 [facility] Comment on above: Performed By: #### 2 [id number] #### [facility] [address] [place] [address] Platelet mean volume (Bld) [Entitic vol] 7.6 fL Normal 6.4-10.8 [facility] Comment on above: Performed By: #### 2 [id number] #### [facility] [address] [place] [address] RBC (Bld) [#/Vol] 4.2 E12/L Low 4.3-5.9 [facility] Comment on above: Performed By: #### 2 [id number] #### [facility] [address] [place] [address] WBC corrected for nucl RBC Auto (Bld) [#/Vol] 9.0 E9/L Normal 4.0-11.0 [facility] Comment on above: Performed By: #### 2 [id number] #### [facility] [address] [place] [address] D-Dimeron 11-15-2024 Fibrin D-dimer FEU (PPP) [Mass/Vol] 393 [id number] Normal 215-500 [facility] Comment on above: Result Comment: This assay is intended for use as an aid in the diagnosis of DVT or PE. These conditions cannot be excluded with certainty solely on the basis of a D-dimer concentration being within the reference range This D-Dimer assay may be used in conjunction with a non-high clinical pretest probability assessment to exclude deep-vein thrombosis(DVT). For exclusion of venous thrombosis or pulmonary embolism the analyte D-Dimer should not be used as an aid in patients with: Therapeutic dose anticoagulant therapy for >24 hours Fibrinolytic therapy within previous 7 days Trauma or surgery within previous 4 weeks Disseminated malignacies Aortic aneurysm Sepsis, severe infections, pneumonia, severe skin infections Liver cirrhosis Performed By: #### 2 [id number] #### [facility] [address] [place] [address] ED Clinical Summaryon 2024 ED Clinical Summary ED Clinical Summary [address] [address] ED Clinical Summary Person Information Name: CHLOE AGARWAL/[facility] Age: 69 Years : 1955 Sex: Female Language: Setswana PCP: Vick Mcghee MD Marital Status: Visit Id: Visit Reason: Chest pain; CHEST PAIN, UPPER ABD PAIN Speciality: Acuity: 2 Enc Type: Observation Med Service: Medical Arrival: 11/15/2024 13:13:47 Discharge: LOS: 000 03:45 Checkin: 11/15/2024 13:13:47 Checkout: 11/15/2024 16:58:54 Dispo Type: Admitted as IP to this [facility] EVENTS: Event Name Event Status Request Date/Time Start Date/Time Complete Date/Time Arrive Complete 11/15/2024 13:13:47 11/15/2024 13:13:47 11/15/2024 13:13:47 Document Home Meds Complete 11/15/2024 13:13:47 11/15/2024 15:06:50 11/15/2024 15:06:50 Triage Complete 11/15/2024 13:13:47 11/15/2024 13:21:36 11/15/2024 13:21:36 Bed Assign Complete 11/15/2024 13:15:10 11/15/2024 13:15:10 11/15/2024 13:15:10 Dr Exam Complete 11/15/2024 13:15:10 11/15/2024 13:16:37 11/15/2024 13:16:37 RN Exam Complete 11/15/2024 13:15:10 11/15/2024 13:23:23 11/15/2024 13:23:23 EKG Complete 11/15/2024 13:16:25 11/15/2024 13:22:11 Registration Complete 11/15/2024 13:16:37 11/15/2024 13:18:42 11/15/2024 13:18:42 Reg Complete Request 11/15/2024 13:18:42 Reg Bed Request Complete 11/15/2024 13:18:42 11/15/2024 13:18:42 11/15/2024 13:18:42 Pending Labs Complete 11/15/2024 13:28:56 11/15/2024 15:22:43 Lab Complete 11/15/2024 13:28:56 11/15/2024 14:13:26 Patient Care Request 11/15/2024 13:28:56 RT Request 11/15/2024 13:28:56 X-Ray Complete 11/15/2024 13:28:56 11/15/2024 13:30:21 11/15/2024 13:43:52 Wet Read Request 11/15/2024 13:43:52 Pending Labs Complete 11/15/2024 13:45:19 11/15/2024 13:45:19 11/15/2024 14:13:26 Lab Complete 11/15/2024 13:45:19 11/15/2024 13:45:19 11/15/2024 14:13:26 Pending Labs Complete 11/15/2024 13:48:01 11/15/2024 13:48:01 11/15/2024 13:48:01 Meds Admin Request 11/15/2024 14:08:49 Consult Request 11/15/2024 14:49:36 Hospitalist Consult Request 11/15/2024 14:49:36 Observation Request 11/15/2024 14:51:01 Patient Care Request 11/15/2024 14:51:01 Patient Care Complete 11/15/2024 14:51:03 11/15/2024 16:28:57 Patient Care Request 11/15/2024 14:51:04 Medicare Form Complete 11/15/2024 14:51:05 11/15/2024 15:07:03 Patient Care Complete 11/15/2024 14:51:05 11/15/2024 16:29:06 Patient Care Request 11/15/2024 14:51:05 Pending Labs Request 11/15/2024 15:08:28 Pending Labs Cancel 11/15/2024 15:36:40 11/15/2024 15:38:52 Lab Cancel 11/15/2024 15:36:40 11/15/2024 15:38:52 Pending Labs Complete 11/15/2024 15:39:13 11/15/2024 15:39:13 11/15/2024 15:51:48 Lab Complete 11/15/2024 15:39:13 11/15/2024 15:39:13 11/15/2024 15:51:48 Consult Request 11/15/2024 15:50:27 Patient Care Request 11/15/2024 16:55:38 Pending Labs Request 11/15/2024 16:55:38 Lab Request 11/15/2024 16:55:38 Meds Admin Request 11/15/2024 16:55:38 ADDRESS: [address] [facility] [id number] PHYS DOC NOTES: MEDICAL INFORMATION: Prescriptions Given: Medications to Continue with No Changes Other Medications clonidine (cloNIDine 0.1 mg tab) 1 Tablets By Mouth 2 times a day. Refills: 5. losartan (losartan 100 mg Tab) 1 Tablets By Mouth at bedtime. Refills: 3. metoprolol (metoprolol succinate 50 mg ER Tab) 2 Tablets By Mouth every day. Refills: 3. Misc Prescription (Adult Blood Pressure Monitor with Large Bicep Cuff) Check BP Daily Dx I10. Refills: 0. naproxen (Aleve 220 mg oral capsule) 2 Capsules By Mouth every 8 hours as needed as needed for pain. pantoprazole (Protonix 40 mg Tab-DR) 1 Tablets By Mouth 2 times a day. Refills: 0. PATIENT EDUCATION INFORMATION: Instructions: Follow up: DIAGNOSIS: 1:Chest pain; 2:Non-cardiac chest pain; 3:HTN (hypertension); 4:Chronic GERD Normal [facility] ED Note-Physicianon 11-15-19 ED Note-Physician ED Note-Physician Basic Information Time Seen: Darshan Laughlin M.D. 11/15/2024 13:16 Chief Complaint Pt presents to ED with complaints of chest pain radiating into left chest onset days ago. hx of simular episode. History of Present Illness The patient is a 69-year-old female past medical history of hypertension who presented to the emergency room for chest pain. The patient states around 8 AM today she started developing chest pain. She describes the pain as sharp. She stated the pain started under the left breast went to the center of her chest and above the breast. The patient stated the pain is worse when she taking deep breath. She states she has some numbness on the left arm. The patient denies any nausea, denies any vomiting. She denies any shortness of breath. She denies any dizziness or lightheadedness. She is reports occasional cough. The patient states she has had stress test probably 2 years ago, however she does not know the results. The patient denies any other associated symptoms. Review of Systems Additional ROS info: Except as noted in the above Review of Systems and in the History of Present Illness all other systems have been reviewed and are negative or noncontributory. Physical Exam Vitals & Measurements T: 36.5 ???C(Oral) HR: 53(Monitored) RR: 18 BP: 144/73 SpO2: 100% HT: 152 cm WT: 78.5 kg BMI: 33.98 General: alert, no acute distress Skin: warm, dry Head: no trauma, normocephalic Neck: Trachea midline, no tenderness, supple Eye: normal conjunctiva, sclera clear, PERRL, EOMI, vision unchanged ENMT: Oral mucosa moist, no pharyngeal erythema or exudate Cardiovascular: regular rate and rhythm Respiratory: Lungs CTA, respirations non labored, breath sounds equal Gastrointestinal: soft, non distended, no tenderness, no guarding Extremities: no deformity, no trauma Neurological: Alert and oriented, speech normal, no focal neuro deficits Psychiatric: cooperative, affect appropriate for age Procedure Heart Score for Major Cardiac Event History: Example factors for history - pattern of chest pain, onset, duration, relation with exercise, stress or cold, localization, concominant symptoms. reaction to sublingual nitrates, [] Highly suspicious +2 [x] Moderately suspicious +1 [] Slightly suspicious 0 EKG: [] Significant ST-Depression +2 [] Non specific repolarization disturbance +1 [x] Normal 0 Age: [x] >= 65 +2 [] 45-65 + 1 [] <45 0 Risk Factors: (HLD, HTN, DM, Cigarette Smoking, Pos Family Hx, Obesity) [x] >3 risk factors or hx of atheroslerotic disease + 2 [] 1-2 risk factors + 1 [] No risk factors known 0 Troponin: [] >= 3X normal + 2 [] 1-3X normal + 1 [x] <= Normal 0 [] 0-3 Points 0.9 - 1.7% risk of major adverse cardiac event in 6 weeks [x] 4-6 Points 12-16.6% risk of major adverse cardiac event in 6 weeks [] 7-10 Points 50-65% risk of major adverse cardiac event in 6 weeks [] 0-3 Points with 2 sets of negative cardiac markers <1% risk of major adverse cardiac event in 30 days. Medical Decision Making MEDICAL DECISION MAKING Number and Complexity of Problems Differential Diagnosis: [] [facility] Data External documents reviewed: [] My EKG interpretation: [] My CT interpretation: [] My X-ray interpretation: [] My Ultrasound interpretation: [] Decision rules/scores evaluated: [] Discussed with: Hospitalist Treatment and Disposition ED Course: The patient presented with chest pain. EKG shows no acute ischemic changes. Her heart score is 5. The patient was given 2 baby aspirin. Her pain improved after the aspirin and came back. She was given nitroglycerin and her pain improved after the nitroglycerin. Blood work reviewed. Troponin is negative. D-dimer is negative. Less likely PE. Chest x-ray shows no acute cardiopulmonary disease. The case is discussed with hospitalist and the patient will be admitted to rule out ACS. Shared decision making: [] Code status: [] Assessment/Plan 1. Chest pain (R07.9: Chest pain, unspecified) Orders: aspirin, 162 mg = 2 tab(s), Tab-Chew, Oral, Once, Stop date 11/15/24 14:08:00 EST, STAT, Start date 11/15/24 14:08:00 EST, 11/15/24 14:08:00 EST nitroglycerin, 0.4 mg = 1 tab(s), Tab, SubLingual, q5min PRN Chest pain for 3 dose(s), Stop date Limited # of times, STAT, Start date 11/15/24 14:08:00 EST, Hold for SBP < 110, 11/15/24 14:08:00 EST Basic Metabolic Panel CBC w/ Auto Diff D-Dimer ECG 12 Lead Adult ED Cardiac Monitoring ED Physician consult Hospitalist for continued care eGFR Extra SST Tube Magnesium Level Oxygen Saturation Oxygen Therapy PT & PTT Saline Lock Insert Troponin 0 Hr. Troponin 1 Hr. XR Chest Single View Medications Administered Given aspirin 81 mg (more content not included)... Normal [facility] Comment on above: Result Comment: Elec tronically Signed By: Qian Jimenes, Darshan Ibrahim\.br\Date and Time Signed: 11/15/24 17:14 EST ED Note-Physician ED Note-Physician Basic Information Opened in error Assessment/Plan Normal [facility] Comment on above: Result Comment: Elec tronically Signed By: Qian Jimenes, Darshan Ibrahim\.br\Date and Time Signed: 11/15/24 15:23 EST ED Patient Education Noteon 11-15-2024 ED Patient Education Note ED Patient Education Note Normal [facility] ED Patient Summaryon 025 ED Patient Summary ED Patient Summary [place] [address] Patient Discharge Instructions Person Information Name: CHLOE AGARWAL Age: 69 Years Arrival Date: 11/15/2024 13:13:47 Discharge Diagnosis: 1:Chest pain; 2:Non-cardiac chest pain; 3:HTN (hypertension); 4:Chronic GERD Primary Care Physician: Vick Mcghee MD Provider Information Primary Provider: Darshan Laughlin M.D. Advanced Display And Banner Designer:None The exam and treatment you received in the Emergency Department were for an urgent problem and are not intended as complete care. It is important that you follow up with a doctor, nurse practitioner, or physician???s financial administrative assistant for ongoing care. If your symptoms become worse or you do not improve as expected and you are unable to reach your usual health care provider, you should return to the Emergency Department. We are available 24 hours a day. GLADYS AGARWALHO Mckinley has been given the following list of patient education materials, prescriptions and follow-up instructions: Follow-up Instructions: In the event that this physician does not participate in your insurance network, please consult with your insurance company to find a nearby participating provider. Patient Education Materials: A MESSAGE TO ALL PATIENTS REGARDING OPIOIDS PRESCRIPTION OPIOIDS: WHAT YOU NEED TO KNOW Prescription opioids can be used to help relieve [id number] pain and are often prescribed following a [...] as well, even when taken as directed: ??? Tolerance???meaning you might need to take more of the medication for the same pain relief ??? Physical dependence???meaning you have symptoms of withdrawal when a medication is stopped ??? Increased sensitivity to pain ??? Constipation ??? Nausea, vomiting, and dry mouth ??? Sleepiness and dizziness ??? Confusion ??? Depression ??? Low levels of testosterone that can result in lower sex drive, energy, and strength ??? Itching and sweating RISKS ARE GREATER WITH: ??? History of drug misuse, substance use disorder, or overdose ??? Mental health conditions (such as depression or anxiety) ??? Sleep apnea ??? Older age (65 years and older) ??? Avoid alcohol while taking prescription opioids. Also, unless specifically advised by your health care provider, medications to avoid include: ??? Benzodiazepines (such as Xanax or Valium) ??? Muscle relaxants (such as Soma or Flexeril) ??? Hypnotics (such as Ambien or Lunesta) ??? Other prescription opioids KNOW YOUR OPTIONS Talk to your health care provider about ways to manage your pain that don???t involve prescription opioids. Some of these options may actually work better and have fewer risks and side effects. Options may include: ??? Pain relievers such as acetaminophen, ibuprofen, and naproxen ??? Some medication that are also used for depression or seizures ??? Physical therapy and exercise ??? Cognitive behavioral therapy, a psychological, goal-directed approach, in which patients learn how to modify physical, behavioral, and emotional triggers of pain and stress. IF YOU ARE PRESCRIBED OPIOIDS FOR PAIN: ??? Never take opioids in greater amounts or more often than prescribed. ??? Follow up with your primary health care provider. o Work together to create a plan on how to manage your pain. o Talk about ways to help manage your pain that don???t involve prescription opioids. o Talk about any and all concerns and side effects. ??? Help prevent misuse and abuse o Never sell or share prescription opioids. o Never use another person???s prescription opioids. ??? Store prescription opioids in a secure place and out of reach of others (this may include visitors, children, friends, and family). ??? Safely dispose of unused prescription opioids: Find your community drug take-back program or your pharmacy mail-back program, or flush them down the toilet, following guidance from the Food and Drug Administration (www.fda.gov/Drugs/ResourcesFo rYou). ??? Visit www.cdc.gov/drugoverdose to learn about the risks of opioids abuse and overdose. ??? If you believe you may be struggling with addiction, tell your health manager wound care and ask for guidance or call [facility]???S National Helpline at 6-799-045-PonoMusic. [employer] Source: [place] Department (more content not included)... Normal [facility] Lipase Levelon 11-15-2024 Lipase [Catalytic activity/Vol] 43 U/L Normal 13-58 [facility] Comment on above: Performed By: #### 2 [id number] #### [facility] [address] [place] [address] Magnesiumon 11-15-2024 Magnesium [Mass/Vol] 2.0 mg/dL Normal 1.3-2.4 [facility] Comment on above: Performed By: #### 2 [id number] #### [facility] [address] [place] [address] PT & PTTon 11-15-2024 aPTT Coag (PPP) [Time] 30.1 second(s) Normal 25.1-36.5 [facility] Comment on above: Result Comment: Para meter 15 days - 4 weeks 1 - 5 months 6 - 11 months 1 - 5 years 6 - 10 years 11 - 17 years PTT Mean: 35.4 (27.6-45.6) Mean: 33.5 (24.8-40.7) Mean: 32.4 (25.1-40.7) Mean: 31.6 (24.0-39.2) Mean: 31.6 (26.9-38.7) Mean: 31.0 (24.6-38.4) Pediatric Reference ranges were obtained from a study by zakia Perez prepared from 1437 samples obtained at 7 different centers using the same coagulation reagent and instrumentation as [facility]. Currently there are no coagulation studies available worldwide for children to 14 days, and no normal ranges. Heparin therapeutic range (represented by Anti-Factor Xa activity of 0.2 - 0.4 U/mL) corresponds to PTT of 56.6 - 109.0 sec. Performed By: #### 1 [id number] #### [facility] [address] [place] [address] INR Coag (PPP) [Relative time] 0.98 {INR} Invalid Interpretation Code [facility] Comment on above: Result Comment: INR results are specifically intended to assess patients stabilized on long-term Anticoagulation therapy suggested INR???s ???Less Intensive Anticoagulation??? 2.0 ??? 3.0 Conventional Range 3.0 ??? 4.5 Performed By: #### 1 [id number] #### [facility] [address] [place] [address] PT Coag (PPP) [Time] 11.0 second(s) Normal 9.4-12.5 [facility] Comment on above: Result Comment: 15 d ays - 4 weeks 1 - 5 months 6 -11 months 1 ??? 5 years 6 ??? 10 years 11 -17 years Mean: 11.2 (9.5 ??? 12.6) Mean: 11.0 (9.7 ??? 12.8) Mean: 11.0 (9.8 ??? 13.0) Mean: 11.3 (9.9 ??? 13.4) Mean: 11.7 (10.0 ??? 14.6) Mean: 11.8 (10.0 - 14.1) Pediatric Reference ranges were obtained from a study by Finn [place], et al. prepared from 1437 samples obtained at 7 different centers using the same coagulation reagent and instrumentation as [facility]. Currently there are no coagulation studies available worldwide for children to 14 days, and no normal ranges. Performed By: #### 1 [id number] #### [facility] [address] [place] [address] Troponin 0 Hr.on 11-15-2024 Troponin HS 4.50 pg/mL Low 10.10-27.1 0 [facility] Comment on above: Result Comment: The 95% CI (Confidence Interval) PPV (Positive Predictive Value) for myocardial infarction in females is 38 pg/mL, in males 51 pg/mL. The results should be used in conjunction with clinical conditions of myocardial infarction. (Access High Sensitivity Troponin I Instructions For Use, [employer], May 2018) Performed By: #### 1 [id number] #### [facility] [address] [place] [address] Troponin 1 Hr.on 11-15-2024 Troponin HS 4.80 pg/mL Low 10.10-27.1 0 [facility] Comment on above: Order Comment: 1441 Result Comment: The 95% CI (Confidence Interval) PPV (Positive Predictive Value) for myocardial infarction in females is 38 pg/mL, in males 51 pg/mL. The results should be used in conjunction with clinical conditions of myocardial infarction. (Access High Sensitivity Troponin I Instructions For Use, [employer], May 2018) Performed By: #### 1 [id number] #### [facility] [address] [place] [address] Troponin 3 Hr.on 11-15-2024 Troponin HS 5.20 pg/mL Low 10.10-27.1 0 [facility] Comment on above: Result Comment: The 95% CI (Confidence Interval) PPV (Positive Predictive Value) for myocardial infarction in females is 38 pg/mL, in males 51 pg/mL. The results should be used in conjunction with clinical conditions of myocardial infarction. (Access High Sensitivity Troponin I Instructions For Use, [employer] 2018) Performed By: #### 1 [id number] #### [facility] [address] [place] [address] Troponin 6 Hr.on 11-15-2024 Troponin HS 6.30 pg/mL Low 10.10-27.1 0 [facility] Comment on above: Result Comment: The 95% CI (Confidence Interval) PPV (Positive Predictive Value) for myocardial infarction in females is 38 pg/mL, in males 51 pg/mL. The results should be used in conjunction with clinical conditions of myocardial infarction. (Access High Sensitivity Troponin I Instructions For Use, Demetra Witter, May 2018) Performed By: #### 1 [id number] #### [facility] [address] [place] [address] XR Chest Single Viewon 11-15 XR Chest Single View Exam Date/Time: 11/15/2024 13:43 EST Reason for Exam: Chest pain Report IMPRESSION: NO ACUTE CARDIOPULMONARY DISEASE. CLINICAL HISTORY: Chest pain COMPARISON: 05/08/2024 Findings: Osseous structures intact. Cardiopericardial silhouette normal. Pulmonary vasculature normal. Lungs clear. Ordering Provider: Darshan Laughlin FINAL REPORT Dictated: 11/15/2024 2:18 pm Stephen Baldwin MD Signed (Electronic Signature): 11/15/2024 2:18 pm Signed by: Stephen Baldwin MD Transcribed by: SCOTTY Technologist: CC, Normal [facility] eGFRon 11-15-2024 eGFR 62 mL/min/1.73 m2 Normal >=59 [facility] Comment on above: Performed By: #### 1 [id number] #### [facility] [address] [place] [address] Heart and Vascular Office/Cl inic Noteon 10-05-2024 Heart and Vascular Office/Clinic Note [...] ventricular systolic pressure is 35 mmHg. [1] C with Dr. Douglas on 09/17/2021: CONCLUSIONS: 1. [...] Daily, # 30 tab(s), Refills(s) 2, Pharmacy: [facility], 152, cm, 10/05/24 11:36:00 EST, Height/Length Dosing, 75.8, kg, 10/05/24 11:40:00 EST, Weight Dosing Follow-up with me in 3 months or sooner if needed Portions of this record may have been created with voice recognition artificial intelligence software, specifically [employer], [employer] and or [employer]. Substitutions may have occurred due to the [...] drainage Procedure (more content not included)... Normal [facility] Comment on above: Result Comment: Elec tronically Signed By: Richar GAMEZ, Lokesh Brito\.elmo\Date and Time Signed: 10/05/24 13:02 EST [place] 09-02-2024 L -- Specimen: [id number] Received: 09/05/24 Status: VIRGILIO Mathewsbenjamín Num: [id number] Spec Type: Cytology Subm Dr: Ryan Vazquez MD Tissues: A FNA SLIDES NOPATH (RT THYROID) Procedures: Cyto Int and Re, PAPSTN/5 -- Age/ Patient Sex Location Account Attending Physician -- Chloe Agarwal 68/F [place] [id number] NON STAFF -- SPEC NUM: [id number] RECD: 09/05/24 STATUS: VIRGILIO ANDRÉS NUM: [id number] MADHAV: 09/02/24- SUBM DR: Ryan Vazquez MD ENTERED: 09/05/[address]: Heavenly Thao SPEC TYPE: Cytology DEPT: [facility] ENTERED BY: [id number] RECV BY: [id number] ORDERED: Cyto Int and Re, PAPSTN/5 ORDERED: Cyto Int and Re, PAPSTN/5 Pathological Diagnosis Nodule, right thyroid, fine needle aspiration:? Unsatisfactory for evaluation. Too few epithelial cells. [place]?Category?I Clinical Information US guided FNA Gross Description Received fixed in Cytolyt is 30 ml very pale pink clear fixed fluid for cytology said to have been obtained as Right thyroid nodule mid. ThinPrep preparations are prepared for microscopic examination. Also received are 4 spray fixed smeared slides and a Veracyte vial stored at -20 for microscopic examination. (SD/tn) CPT Codes 16431 -- -- Specimen: [id number] Received: 09/05/24 Status: VIRGILIO White Num: [id number] Spec Type: Cytology Subm Dr: Ryan Vazquez MD Tissues: A FNA SLIDES NOPATH (RT THYROID) Procedures: Cyto Int and Re, PAPSTN/5 -- Patient: Chloe Agarwal [id number] (Continued) -- Signed (signature on file) Rhonda Bauer MD 09/06/24 1815 Normal [facility] CT Spine Lumbar w/ Contrasto [...] Contrast amount in ml's: 0 Normal [place] [facility] Main OR PACU II Recordon Main OR PACU II Record Main OR PACU II Record PACU Phase II Document Type FT Summary Primary Physician: NONE, XXXX Finalized Date/Time: 08/19/24 14:04:04 Pt. Name: CHLOE AGARWAL/Sex: 1955 Female Med Rec #: [id number] Physician: SAM KAISER Financial #: [id number] Pt. Type: O Room/Bed: / Admit/Disch: 08/19/24 [...] By: Monika Sales RN 08/19/24 14:04 Normal [facility] Main OR Preoperative Recordo n 08-19-2024 Main OR Preoperative Record Main OR Preoperative Record Holding Area Document Type FT Summary Primary Physician: WALE, XXXX Finalized Date/Time: 08/19/24 08:06:37 Pt. Name: CHLOE AGARWAL/Sex: 1955 Female Med Rec #: [id number] Physician: SAM KAISER Financial #: [id number] Pt. Type: O Room/Bed: / Admit/Disch: 08/19/24 [...] 08:06 Monika Sales RN 08/19/24 08:06 Normal [facility] XR Myelography Lumbosacralon 08-19-2024 XR Myelography Lumbosacral [...] mGy = 43.30 DAP = 869.87 Normal [facility] Heart and Vascular Office/Cl inic Noteon 07-16-2024 [...] with voice recognition artificial intelligence software, specifically [employer] and or [employer]. Substitutions may have occurred due to the inherent limitations of voice recognition and artificial intelligence software. ATTESTATION: Documentation services were performed after patient or guardian consented to allow [facility] to record this visit. ASHLEIGH health communications specialist and provider reviewed before signing. ASHLEIGH: Malinda Sands Follow-up No qualifying data available Problem List/Past Medical History Ongoing BMI 34.0-34.9,adult Chest pain due to GERD Chronic GERD Duodenogastric bile reflux Dysphagia Epigastric pain Gastritis H/O: osteoarthritis Hiatal hernia with gastroesophag (more content not included)... Normal [facility] Comment on above: Result Comment: Elec tronically [...] mGy = na DAP = na Normal [facility] C Urineon 05-10-2024 Bacteria identified Cx Nom [...] Locations R1: This test was performed at: [facility], [address] [place] [address], [id number] , [facility] Comment on above: Performed By: #### 2 [id number] #### [facility] [address] [place] [address] BB Draw & Holdon 05-08-2024 BB D&H Sample drawn for Blood Ba Normal [facility] Comment on above: Performed By: #### 1 [id number] #### [facility] [address] [place] [address] CBC w/ Auto Diffon 4 Basophils/100 WBC (Bld) 1.1 % Normal 0.0-2.0 [facility] Comment on above: Performed By: #### 2 [id number] #### [facility] [address] [place] [address] Basophils/Leukocyte s Auto (Bld) [Pure # fraction] 0.1 E9/L Normal 0.0-0.2 [facility] Comment on above: Performed By: #### 2 [id number] #### [facility] [address] [place] [address] 62866 Eosinophils (Bld) [#/Vol] 0.1 E9/L Normal 0.0-0.5 [facility] Comment on above: Performed By: #### 2 [id number] #### [facility] [address] [place] [address] 45461 Eosinophils/100 WBC (Bld) 1.6 % Normal 0.0-8.0 [facility] Comment on above: Performed By: #### 2 [id number] #### [facility] [address] [place] [address] 12506 Erythrocyte distribution width (RBC) [Ratio] 14.1 % Normal 10.9-14.2 [facility] Comment on above: Performed By: #### 2 [id number] #### [facility] [address] [place] [address] Hematocrit (Bld) [Volume fraction] 38.2 % Normal 34.0-46.0 [facility] Comment on above: Performed By: #### 2 [id number] #### [facility] [address] [place] [address] 38069 Hemoglobin (Bld) [Mass/Vol] 13.9 g/dL Normal 12.0-16.0 [facility] Comment on above: Performed By: #### 2 [id number] #### [facility] [address] [place] [address] 19389 Lymphocytes (Bld) [#/Vol] 2.3 E9/L Normal 1.0-4.0 [facility] Comment on above: Performed By: #### 2 118973 #### [facility] [address] [place] [address] Lymphocytes/100 WBC (Bld) 26.4 % Normal 14.0-50.0 [facility] Comment on above: Performed By: #### 2 [id number] #### [facility] [address] [place] [address] MCH (RBC) [Entitic mass] 32.6 pg Normal 27.0-34.0 [facility] Comment on above: Performed By: #### 2 828109 #### [facility] [address] [place] [address] MCHC (RBC) [Mass/Vol] 36.3 g/dL High 31.4-36.0 [facility] Comment on above: Performed By: #### 2 [id number] #### [facility] [address] [place] [address] MCV (RBC) [Entitic vol] 89.9 fL Normal 80.0-100.0 [facility] Comment on above: Performed By: #### 2 575326 #### [facility] [address] [place] [address] 45164 Monocytes (Bld) [#/Vol] 0.8 E9/L Normal 0.2-1.0 [facility] Comment on above: Performed By: #### 2 [id number] #### [facility] [address] [place] [address] Neutrophils (Bld) [#/Vol] 5.3 E9/L Normal 2.0-7.5 [facility] Comment on above: Performed By: #### 2 902831 #### [facility] [address] [place] [address] Neutrophils/100 WBC (Bld) 61.6 % Normal 36.0-75.0 [facility] Comment on above: Performed By: #### 2 519966 #### [facility] [address] [place] [address] Platelet 299.0 E9/L Normal 150.0-500. 0 [facility] Comment on above: Performed By: #### 2 127772 #### [facility] [address] [place] [address] Platelet mean volume (Bld) [Entitic vol] 8.0 fL Normal 6.4-10.8 [facility] Comment on above: Performed By: #### 2 194054 #### [facility] [address] [place] [address] RBC (Bld) [#/Vol] 4.3 E12/L Normal 4.3-5.9 [facility] Comment on above: Performed By: #### 2 [id number] #### [facility] [address] [place] [address] WBC corrected for nucl RBC Auto (Bld) [#/Vol] 8.6 E9/L Normal 4.0-11.0 [facility] Comment on above: Performed By: #### 2 222908 #### [facility] [address] [place] [address] CHEMISTRYOrdered By: SYSTEM SYSTEM on 05-08-2024 Albumin [...] Sensitivity Troponin I Instructions For Use, Demetra Witter, May 2018) Urea nitrogen [Mass/Vol] 22 mg/dL High 5 - 21 mg/dL Remisol Chem Urea nitrogen/Creatinine [Mass ratio] 28 mg/mg High 10 - 20 Remisol Chem CHEMISTRYOrdered By: Heavenly ROP User on 05-08-2024 Glucose [Mass/Vol] 111 mg/dL High 55 - 99 mg/dL [facility] POC Subsection Comment on above: Result Comment: Ovidio medrano RN/ POC Device SN [id number] Invalid Interpretation Code [facility] POC Subsection POC User ID [id number] 1 Invalid Interpretation Code [facility] POC Subsection POC Username KARIN CLAUS Invalid Interpretation Code [facility] POC Subsection CMPon 05-08-2024 Albumin [Mass/Vol] 4.4 g/dL Normal 3.3-5.0 [facility] Comment on above: Performed By: #### 2 [id number] #### [facility] [address] [place] [address] Albumin/Globulin (S) [Mass conc ratio] 1.5 Normal 1.1-2.2 [facility] Comment on above: Performed By: #### 2 054688 #### [facility] [address] [place] [address] ALP [Catalytic activity/Vol] 59 Int._Unit/L Normal 21-98 [facility] Comment on above: Performed By: #### 2 580484 #### [facility] [address] [place] [address] ALT No additional P-5'-P [Catalytic activity/Vol] 18 Int._Unit/L Normal 6-46 [facility] Comment on above: Performed By: #### 2 542091 #### [facility] [address] [place] [address] Anion gap [Moles/Vol] 14 mmol/L Normal 6-16 [facility] Comment on above: Performed By: #### 2 328531 #### [facility] [address] [place] [address] AST [Catalytic activity/Vol] 18 Int._Unit/L Normal 5-43 [facility] Comment on above: Performed By: #### 2 590930 #### [facility] [address] [place] [address] Bilirubin [Mass/Vol] 1.1 mg/dL Normal 0.0-1.1 [facility] Comment on above: Performed By: #### 2 476918 #### [facility] [address] [place] [address] Calcium [Mass/Vol] 9.9 mg/dL Normal 8.9-11.1 [facility] Comment on above: Performed By: #### 2 130091 #### [facility] [address] [place] [address] Chloride [Moles/Vol] 103 mmol/L Normal 101-111 [facility] Comment on above: Performed By: #### 2 517544 #### [facility] [address] [place] [address] CO2 [Moles/Vol] 26 mmol/L Normal 21-31 [facility] Comment on above: Performed By: #### 2 [id number] #### [facility] [address] [place] [address] Creatinine [Mass/Vol] 0.8 mg/dL Normal 0.5-1.3 [facility] Comment on above: Performed By: #### 2 869833 #### [facility] [address] [place] [address] Globulin (S) [Mass/Vol] 2.9 g/dL Normal 1.4-4.0 [facility] Comment on above: Performed By: #### 2 195741 #### [facility] [address] [place] [address] Glucose [Mass/Vol] 112 mg/dL Normal 55-199 [facility] Comment on above: Performed By: #### 2 094424 #### [facility] [address] [place] [address] Potassium [Moles/Vol] 3.7 mmol/L Normal 3.5-5.3 [facility] Comment on above: Performed By: #### 2 369757 #### [facility] [address] [place] [address] Protein [Mass/Vol] 7.3 g/dL Normal 6.0-7.8 [facility] Comment on above: Performed By: #### 2 052334 #### [facility] [address] [place] [address] Sodium [Moles/Vol] 139 mmol/L Normal 135-145 [facility] Comment on above: Performed By: #### 2 438943 #### [facility] [address] [place] [address] Urea nitrogen [Mass/Vol] 22 mg/dL High 5-21 [facility] Comment on above: Performed By: #### 2 143441 #### [facility] [address] [place] [address] Urea nitrogen/Creatinine [Mass ratio] 28 No Units High 10-20 [facility] Comment on above: Performed By: #### 2 347927 #### [facility] [address] [place] [address] COAGULATIONOrdered By: Yissel Amos on 05-08-2024 aPTT Coag (PPP) [Time] 30.0 s Normal 25.1 - 36.5 second(s) [facility] Auto Coag Comment on above: Interpretive Data: Jeanette jose 15 days - 4 weeks 1 - 5 months 6 - 11 months 1 - 5 years 6 - 10 years 11 - 17 years PTT Mean: 35.4 (27.6-45.6) Mean: 33.5 (24.8-40.7) Mean: 32.4 (25.1-40.7) Mean: 31.6 (24.0-39.2) Mean: 31.6 (26.9-38.7) Mean: 31.0 (24.6-38.4) Pediatric Reference ranges were obtained from a study by zakia Perez prepared from 1437 samples obtained at 7 different centers using the same coagulation reagent and instrumentation as [facility]. Currently there are no coagulation studies available worldwide for children to 14 days, and no normal ranges. Heparin therapeutic range (represented by Anti-Factor Xa activity of 0.2 - 0.4 U/mL) corresponds to PTT of 56.6 - 109.0 sec. INR Coag (PPP) [Relative time] 0.97 {INR} Invalid Interpretation Code [facility] Auto Coag Comment on above: Interpretive Data: I NR results are specifically intended to assess patients stabilized on long-term Anticoagulation therapy suggested INR s Less Intensive Anticoagulation 2.0 3.0 Conventional Range 3.0 4.5 PT Coag (PPP) [Time] 10.9 s Normal 9.4 - 12.5 second(s) [facility] Auto Coag Comment on above: Interpretive Data: [...] were obtained from a study by Finn [place], et al. prepared from 1437 samples obtained at 7 different centers using the same coagulation reagent and instrumentation as [facility]. Currently there are no coagulation studies available [...] MD Transcribed by: SCOTTY Technologist: AO Normal [facility] Capillary Glucose POCon 04-19 Glucose [Mass/Vol] 111 mg/dL High 55-99 [facility] Comment on above: Result Comment: Ovidio medrano RN/ Performed By: #### 2 [id number] #### [facility] [address] [place] [address] ED Clinical Summaryon 2023 ED Clinical Summary ED Clinical Summary [address] [address] ED Clinical Summary Person Information Name: CHLOE AGARWAL/Adrien Age: 68 Years : 1955 Sex: Female Language: Setswana PCP: Vick Mcghee MD Marital Status: Visit [...] 05/08/2024 09:45:49 05/08/2024 09:45:49 05/08/2024 09:45:49 ADDRESS: [address] [facility] [id number] PHYS DOC NOTES: MEDICAL INFORMATION: Prescriptions Given: New Medications [facility], [address] [place], [place] [id number], [phone] cephalexin (Keflex 500 mg Cap) 1 Capsules [...] Tab) 2 Tablets By Mouth every day. Misc Prescription (Adult Blood Pressure Monitor with [...] Infection, Adult Follow up: With: Address: When: Vick Mcghee [facility], [address] [place] [id number] Business (1) In 3 days 05/11/2024 Comments: Call the office of your primary care doctor to arrange for follow-up within the above-stated timeframe. Follow-up with your primary care doctor about this ED visit. You should rev (more content not included)... Normal [facility] ED Note-Physicianon 05-08-20 ED Note-Physician ED Note-Physician [...] under a lot of stress as her kfhkph-mq-uhp just and she has a to attend [...] malignant neopla (more content not included)... Normal [facility] Comment on above: Result Comment: Elec tronically Signed By: Nelson Solares DO\.elmo\Date and Time Signed: 05/08/24 11:48 EDT ED Patient Summaryon 024 ED Patient Summary ED Patient Summary [place] [id number] Patient Discharge Instructions Person Information Name: CHLOE AGARWAL Age: 68 Years Arrival Date: 05/08/2024 07:15:15 Discharge Diagnosis: Acute UTI; Vertigo Primary Care Physician: Vick Mcghee MD Provider Information Primary Provider: Nelson Solares DO Advanced Display And Banner Designer:None The exam and treatment you received in the Emergency Department were for an urgent problem and are not intended as complete care. It is important that you follow up with a doctor, nurse practitioner, or physician?s financial administrative assistant for ongoing care. If your symptoms become worse or you do not improve as expected and you are unable to reach your usual health care provider, you should return to the Emergency Department. We are available 24 hours a day. ANYCHLOE Bruno has been given the following list of patient education materials, prescriptions and follow-up instructions: Follow-up Instructions: With: Address: When: Vick Hankinskarel [address] [place] [address], [facility] [place] [phone] Business (1) In 3 days 05/11/2024 Comments: [...] opioids can be used to help relieve trpaugop-yk-boprjs pain and are often prescribed following a [...] opioids in (more content not included)... Normal [facility] HEMATOLOGYOrdered By: SYSTEM SYSTEM on 05-08-2024 Basophils/100 [...] 05-08-2024 Magnesium [Mass/Vol] 2.2 mg/dL Normal 1.3-2.4 [facility] Comment on above: Performed By: #### 2 [id number] #### [facility] [address] [place] [address] PT & PTTon 05-08-2024 aPTT Coag (PPP) [Time] 30.0 second(s) Normal 25.1-36.5 [facility] Comment on above: Result Comment: Para meter [...] the same coagulation reagent and instrumentation as [facility]. Currently there are no coagulation studies available worldwide for children to 14 days, and no normal ranges. Heparin therapeutic range (represented by Anti-Factor Xa activity of 0.2 - 0.4 U/mL) corresponds to PTT of 56.6 - 109.0 sec. Performed By: #### 1 [id number] #### [facility] [address] [place] [address] INR Coag (PPP) [Relative time] 0.97 {INR} Invalid Interpretation Code [facility] Comment on above: Result Comment: INR results are specifically intended to assess patients stabilized on long-term Anticoagulation therapy suggested INR?s ?Less Intensive Anticoagulation? 2.0 ? 3.0 Conventional Range 3.0 ? 4.5 Performed By: #### 1 [id number] #### [facility] [address] [place] [address] PT Coag (PPP) [Time] 10.9 second(s) Normal 9.4-12.5 [facility] Comment on above: Result Comment: 15 d [...] the same coagulation reagent and instrumentation as [facility]. Currently there are no coagulation studies available worldwide for children to 14 days, and no normal ranges. Performed By: #### 1 [id number] #### [facility] [address] [place] [address] Troponin 0 Hr.on 05-08-2024 Troponin HS 6.20 pg/mL Low 10.10-27.1 0 [facility] Comment on above: Result Comment: The 95% CI (Confidence Interval) PPV (Positive Predictive Value) for myocardial infarction in females is 38 pg/mL, in males 51 pg/mL. The results should be used in conjunction with clinical conditions of myocardial infarction. (Access High Sensitivity Troponin I Instructions For Use, Demetra Jay, May 2018) Performed By: #### 1 [id number] #### [facility] [address] [place] [address] UA with Cult Rflxon 05-08-20 24 Bacteria Auto Ql (U) Trace Normal Trace [facility] Comment on above: Performed By: #### 4 [id number] #### [facility] [address] [place] [address] Bilirubin Ql (U) Negative Normal Negative [facility] Comment on above: Performed By: #### 4 [id number] #### [facility] [address] [place] [address] Clarity (U) Clear Normal Clear [facility] Comment on above: Performed By: #### 4 [id number] #### [facility] [address] [place] [address] Color (U) Colorless Abnormal Yellow [facility] Comment on above: Result Comment: Micr oscopic readings are only performed on those samples that meet specific criteria set forth by [facility]. Performed By: #### 4 [id number] #### [facility] [address] [place] [address] Epithelial cells.squamous Auto (Urine sed) [#/Area] 0-2 Invalid Interpretation Code [facility] Comment on above: Performed By: #### 4 [id number] #### [facility] [address] [place] [address] Glucose Ql (U) Negative Normal Negative [facility] Comment on above: Performed By: #### 4 [id number] #### [facility] [address] [place] [address] Hemoglobin Auto test strip (U) [Mass/Vol] Negative Normal Negative [facility] Comment on above: Performed By: #### 4 [id number] #### [facility] [address] [place] [address] Ketones Auto test strip Ql (U) Negative Normal Negative [facility] Comment on above: Performed By: #### 4 [id number] #### [facility] [address] [place] [address] Leukocyte esterase Auto test strip Ql (U) 250 Danielle/uL Abnormal Negative [facility] Comment on above: Performed By: #### 4 [id number] #### [facility] [address] [place] [address] Mucus Auto Ql (U) Negative Normal Negative [facility] Comment on above: Performed By: #### 4 [id number] #### [facility] [address] [place] [address] Nitrite Auto test strip Ql (U) Negative Normal Negative [facility] Comment on above: Performed By: #### 4 [id number] #### [facility] [address] [place] [address] pH (U) 7.0 [pH] Invalid Interpretation Code 5.0-9.0 [facility] Comment on above: Performed By: #### 4 [id number] #### [facility] [address] [place], [place] [id number] Protein Ql (U) Negative Normal Negative [facility] Comment on above: Performed By: #### 4 [id number] #### [facility] [address] [place] [address] RBC Ql (U) 0-3 Normal 0-3 [facility] Comment on above: Performed By: #### 4 [id number] #### [facility] [address] [place] [address] Specific gravity (U) [Rel density] 1.008 Invalid Interpretation Code 1.005-1.03 0 [facility] Comment on above: Performed By: #### 4 [id number] #### [facility] [address] [place] [address] Urobilinogen (U) [Mass/Vol] Negative Normal Negative [facility] Comment on above: Performed By: #### 4 [id number] #### [facility] [address] [place], [place] [id number] WBC Auto (Urine sed) [#/Area] 6-15 Abnormal 0-5 [facility] Comment on above: Performed By: #### 4 [id number] #### [facility] [address] [place], [place] [id number] Type of Urine collection method Clean Catch Normal [facility] Comment on above: Performed By: #### 4 [id number] #### [facility] [address] [place] [address] URINALYSISOrdered By: SYSTEM SYSTEM on 05-08-2024 Bacteria Auto Ql (U) Trace /HPF Normal Trace/HPF [facility] UA Auto SS Bilirubin Ql (U) Negative Normal Negativemg /dL [facility] UA Auto SS Clarity (U) Clear (05/08/24 8:05 AM) Normal Clear [facility] UA Auto SS Color (U) Colorless 1 *ABN* (05/08/24 8:05 AM) Invalid Interpretation Code Yellow [facility] UA Auto SS Comment on above: Interpretive Data: M icroscopic readings are only performed on those samples that meet specific criteria set forth by [facility]. Epithelial cells.squamous Auto (Urine sed) [#/Area] 0-2 graded/HPF Invalid Interpretation Code [facility] UA Auto SS Glucose Ql (U) Negative Normal Negativemg /dL [facility] UA Auto SS Hemoglobin Auto test strip (U) [Mass/Vol] Negative Normal Negativemg /dL FT UA Auto SS Ketones Auto test strip Ql (U) Negative Normal Negativemg /dL FT UA Auto SS Leukocyte esterase Auto test strip Ql (U) 250 Danielle/uL Danielle/uL Invalid Interpretation Code NegativeLe u/uL FT UA Auto SS Mucus Auto Ql (U) Negative Normal Negativegr aded/LPF FT UA Auto SS Nitrite Auto test strip Ql (U) Negative Normal Negativemg /dL [facility] UA Auto SS pH (U) 7.0 *NA* (05/08/24 8:05 AM) Invalid Interpretation Code 5.0 - 9.0 [facility] UA Auto SS Protein Ql (U) Negative Normal Negativemg /dL [facility] UA Auto SS RBC Ql (U) 0-3 graded/HPF Normal 0-3graded/ HPF [facility] UA Auto SS Specific gravity (U) [Rel density] 1.008 *NA* (05/08/24 8:05 AM) Invalid Interpretation Code 1.005 - 1.030 [facility] UA Auto SS Urobilinogen (U) [Mass/Vol] Negative Normal Negativemg /dL [facility] UA Auto SS WBC Auto (Urine sed) [#/Area] 6-15 graded/HPF Invalid Interpretation Code 0-5graded/ HPF [facility] UA Auto SS URINALYSISOrdered By: Nelson Solares on 05-08-2024 UA Spec Desc Clean Catch (05/08/24 8:05 AM) Normal [facility] UA Auto SS Work Phone: XR Chest [...] REPORT Dictated: 05/08/2024 12:55 pm Landon Wilkinson MD Signed (Electronic Signature): 05/08/2024 12:55 pm Signed by: Landon Wilkinson MD Transcribed by: SCOTTY Technologist: IVY Technical Comments Radiation Dose: Ka,r in mGy = . DAP = . Normal [facility] eGFRon 05-08-2024 eGFR 81 mL/min/1.73 m2 Normal >=59 [facility] Comment on above: Order Comment: Order added by Discern Expert. Performed By: #### 1 [id number] #### [facility] [address] [place] [address] Heart and Vascular Office/Cl inic Noteon 01-17-2024 [...] She had blood work done by her operational risk analyst at [facility]. Her cholesterol was low. She has been [...] before bed. I will obtain labs from [facility] to make sure she does not have abnormal electrolytes. 3. Sleep apnea. I will check with Dr. Husain regarding CPAP. Follow-up The patient will follow up in 6 months. Portions of this record may have been created with voice recognition artificial intelligence software, specifically [employer], [employer] and or [employer]. Substitutions may have occurred due to the inherent limitations of voice recognition and artificial intelligence software. ATTESTATION: Documentation services were performed after patient or guardian consented to allow [facility] to record this visit. ASHLEIGH health communications specialist and provider reviewed before signing. ASHLEIGH: Florinda Maguire. Follow-up No qualifying data available Problem List/Past Medical History Ongoing BMI 34.0-34.9,adult Chest pain due to GERD Chronic GERD Duodenogastric bile reflux Dysphagia Epigastric pain Gastritis H/O: osteoarthritis Hiatal hernia with gastroesophageal reflux HTN (hypertension) Osteoporosis Regurgitation of stomach contents Screenin (more content not included)... Normal [facility] Comment on above: Result Comment: Elec tronically Signed By: Vincent CANTRELL, Willie Tovar\.br\Date and Time Signed: 01/17/24 10:22 EDT\.br\Electronically Co-Signed By: Florinda Maguire\.br\Date and Time Co-Signed: 12/18/23 16:08 EST Outside [facility] 12-21-2023 Outside Labs [id number]#1.00TIFF Normal [facility] Physician Orderon 12-21-2023 Physician Order [id number]#1.00TIFF [facility] Ambulatory Visit Summaryon 0 12-18-2023 Ambulatory Visit Summary CHLOE AGARWAL :1955 Visit Date:12/18/2023 Ambulatory Visit Instructions Your Care Team Attending Physician - Vincent CANTRELL, Willie Tovar Primary Care Physician - Vick Mcghee MD Referring Physician - NONE, XXXX This Is Your Medications List [facility] Prescription (Adult Blood Pressure Monitor with Large [...] Tablets By Mouth At bedtime Pickup at [facility] Unchanged meloxicam (meloxicam 15 mg Tab) 1 Tablets By Mouth Every day Unchanged metoprolol (metoprolol 50 mg ER Tab) 2 Tablets By Mouth Every day Unchanged Misc Prescription (Adult Blood Pressure Monitor with [...] Mouth 2 times a day Pharmacy Information [facility]: [address] [place], [place] [id number] [phone] Allergies gabapentin (Headache) lisinopril (Coughing) sulfa drugs [...] for choosing us for your care. Normal [facility] ALL THYROXINE (T4) FREEon Free T4 [Mass/Vol] 1.30 ng/dL 0.76 - 1.46 ng/dL [facility] ALL LIPID PROFILE (FASTING)o n 11-30-2023 CHOL HDL RATIO 3.0 [facility] Comment on above: 3.3 - 4.4 LOW RISK 4.4 - 7.1 AVERAGE RISK 7.1 - 11.0 MODERATE RISK >11.0 HIGH RISK Cholesterol [Mass/Vol] 177 mg/dL NINF - 200 mg/dL [facility] Cholesterol in HDL [Mass/Vol] 59 mg/dL 40 - 60 mg/dL [facility] Comment on above: > or =60 mg/dl - LOW CARDIOVASCULAR RISK <40 mg/dl - HIGH CARDIOVASCULAR RISK Magnesium [Mass/Vol] 96.8 mg/dL [facility] Comment on above: <100 mg/dl OPTIMAL 100-129 mg/dl NEAR OR ABOVE OPTIMAL 130-159 mg/dl BORDERLINE HIGH 160-189 mg/dl HIGH >190 mg/dl VERY HIGH Magnesium [Mass/Vol] 21.2 mg/dL [facility] Triglyceride [Mass/Vol] 106 mg/dL NINF - 150 mg/dL [facility] ALL THYROID STIM HORMONEon 0 11-30-2023 TSH Qn 0.028 m[IU]/L Low [facility] CMP (CMP) (FOR REMOTE FH C USE)on 11-30-2023 Albumin [Mass/Vol] 3.6 g/dL 3.4 - 5.0 g/dL [facility] ALBUMIN GLOBULIN RATIO 1.0 [facility] ALP [Catalytic activity/Vol] 62 U/L 46 - 116 U/L [facility] ALT [Catalytic activity/Vol] 23 U/L 14 - 59 U/L [facility] Anion gap [Moles/Vol] 12.6 mmol/L [facility] AST [Catalytic activity/Vol] 17 U/L 15 - 37 U/L [facility] Bilirubin [Mass/Vol] 1.2 mg/dL High 0.2 - 1.0 mg/dL [facility] Calcium [Mass/Vol] 9.1 mg/dL 8.5 - 10. 1 mg/dL [facility] Chloride [Moles/Vol] 102 mmol/L 98 - 107 mmol/L [facility] CO2 [Moles/Vol] 30.4 mmol/L 21.0 - 32.0 mmol/L [facility] Creatinine [Mass/Vol] 0.99 mg/dL 0.55 - 1.02 mg/dL [facility] GFR/1.73 sq M.predicted CKD-EPI (S/P/Bld) [Vol rate/Area] >60 60 - PINF [facility] Globulin (S) [Mass/Vol] 3.6 g/dL [facility] Glucose [Mass/Vol] 110 mg/dL High 74 - 106 mg/dL [facility] Potassium [Moles/Vol] 4.0 mmol/L 3.5 - 5.1 mmol/L [facility] Protein [Mass/Vol] 7.2 g/dL 6.4 - 8.2 g/dL [facility] Sodium [Moles/Vol] 141 mmol/L 136 - 145 mmol/L [facility] TBH EGFR-NON AF MONTENEGRIN 56 Low 60 - PINF [facility] Urea nitrogen [Mass/Vol] 31.0 mg/dL High 7.0 - 18.0 mg/dL [facility] Urea nitrogen/Creatinine [Mass ratio] 31.3 mg/mg [facility] IGP,APTIMA HPV,AGE GDLNon AGE GDLN ACOG TESTING Note . [facility] Comment on above: TESTS RESULT FLAG UN ITS REF RANGE LAB Clinician Provided Cytology Information Source.............Cervix;Endocervix No. of containers..01 ThinPrep Vial Age Algo ACOG Micheal... Note 01 <21 or >65 or no age provided FLAG LEGEND: L-Low Normal,H-High Normal,LL-Alert Low,HH-Alert High <-Panic Low,>-Panic High,A-Abnormal,AA-Critical Abnormal Performed at: 01 [facility] [address] Adelina Nunez MD, PAP IG (IMAGE GUIDED) Note . [facility] Comment on above: TESTS RESULT FLAG UN ITS REF RANGE LAB DIAGNOSIS: 02 NEGATIVE FOR INTRAEPITHELIAL LESION OR MALIGNANCY. Specimen adequacy: 02 Satisfactory for evaluation. Endocervical and/or squamous metaplastic cells (endocervical component) are present. Performed by: 02 Vicky Madsen, Astronomy Professor ([facility]) . 02 Note: Note 02 The Pap smear is a screening test designed to aid in the detection of premalignant and malignant conditions of the uterine cervix. It is not a diagnostic procedure and should not be used as the sole means of detecting cervical cancer. Both false-positive and false-negative reports do occur. Test Methodology: Note 02 The [employer](R) Budget Director was unable to read this specimen. Therefore a manual review was performed. FLAG LEGEND: L-Low Normal,H-High Normal,LL-Alert Low,HH-Alert High <-Panic Low,>-Panic High,A-Abnormal,AA-Critical Abnormal Performed at: [address] [place] [address] Adelina Nunez MD, Performed at: =G - [facility] [address] [id number] Residential Carpet Installer: Adelina Nunez MD, Phone: [phone] Performed at: [facility] [id number] Residential Carpet Installer: Adelina Nunez MD, Phone: [phone] BRUSH-SPATULA CERVIX ENDOCERVIX [facility] No Panel Informationon 11-30 Interpretation and review of laboratory results Abnormal [facility] Consent for Treatmenton Consent for Treatment [id number]#1.00TIFF Normal [facility] Consultation Noteon 11-20-19 24 Consultation Note Patient: [...] QID, # 120 tab(s), Refills(s) 3, Pharmacy: [facility], 152, cm, 04/03/23 9:20:00 EDT, Height/Length Dosing, 80, kg, 04/03/23 9:20:00 EDT, Weight Dosing Protonix 40 mg Tab-DR: 40 mg = 1 tab(s), Oral, BID, # 120 tab(s), Refills(s) 0, Pharmacy: [facility], 152.4, cm, 04/01/21 7:20:00 EDT, Height/Length Dosing, 85.5, kg, 04/01/21 7:20:00 EDT, Weight Dosing hydrochlorothiazide 12.5 mg Cap: 12.5 mg = 1 cap(s), Oral, Daily, # 30 cap(s), Refills(s) 6, Pharmacy: [facility], 152, cm, 11/17/23 11:29:00 EST, Height/Length Dosing, 79.6, kg, 11/17/23 11:29:00 EST, Weight Dosing losartan 100 mg Tab: 100 mg = 1 tab(s), Oral, Bedtime, # 90 tab(s), Refills(s) 1, Pharmacy: [facility], 152, cm, 07/14/23 9:26:00 EDT, Height/Length Dosing, 76.9, kg, 07/14/23 9:26:00 EDT, Weight Dosing pregabalin 25 mg Cap: 25 mg = 1 cap(s), Oral, BID, start with once a day for 3-5 days. If doing well can go to BID, # 60 cap(s), Refills(s) 0, Pharmacy: [facility], 152, cm, 10/26/23 13:07:00 EST, Height/Length [...] All Problems Chronic GERD / SNOMED CT 590082972 / Confirmed Unilateral primary osteoarthritis, right knee / SNOMED CT 2291270496 / Confirmed Gastritis / SNOMED CT 3970967 / Confirmed Vertigo / SNOMED CT 6600509739 / Confirmed BMI 34.0-34.9,adult / SNOMED CT 428590218 / Confirmed Regurgitation of stomach contents / SNOMED CT 479630208 / Confirmed Osteoporosis / SNOMED CT 450939851 / Confirmed HTN (hypertension) / SNOMED CT 7088181328 / Confirmed Dysphagia / SNOMED CT 56566532 / Confirmed Epigastric pain / SNOMED CT 999278789 / Confirmed Chest pain due to GERD / SNOMED CT 53657233 / Confirmed Screening for malignant neoplasm of colon / SNOMED CT 242593508 / Confirmed H/O: osteoarthritis / SNOMED CT 583819862 / Confirmed Hiatal hernia with gastroesophageal reflux / SNOMED CT 1368410784 / Confirmed Duodenogastric bile reflux / SNOMED CT 12772571 / Confirmed Sigmoid diverticulosis / SNOMED CT 3957011395 / Confirmed Tendonitis / SNOMED CT 62878100 / Confirmed Resolved: GERD - Gastro-esophageal reflux disease / SNOMED CT 0531616910 Resolved: Appendicitis / SNOMED CT 032128113 Resolved: Cough / SNOMED CT 43973187 Resolved: Sinus drainage / SNOMED CT 804145207 Canceled: GERD with apnea / SNOMED CT 9177042183 Objective Vital Signs 11/20/2023 13:11 EST Peripheral [...] extremity streng (more content not included)... Normal [facility] Comment on above: Result Comment: Elec tronically Signed By: Anna GAMEZ, Vicky\.br\Date and Time Signed: 11/20/23 13:40 EST Office/Clinic Note-Physician on 11-20-2023 Office/Clinic Note-Physician [id number]#1.00TIFF Normal [facility] Patient Correspondenceon Patient Correspondence [id number]#1.00TIFF Normal [facility] Consent for Treatmenton 10-21 Consent for Treatment [id number]#1.00TIFF Normal [facility] Heart and Vascular Office/Cl inic Noteon 11-17-2023 Heart and Vascular Office/Clinic Note History of Present Illness Patient is a very pleasant 68-year-old hypertensive female, nondiabetic, non-smoker, referred to our office after she went to the emergency room on 09/02/2021 with abdominal pain radiating into her back. She reportedly had a stress test, echocardiogram and Holter monitor at [facility] prior to her ER visit on 09/02/2021. Troponins were negative x1, and she was assigned a heart score of 4 and discharged home. In addition the patient apparently had a syncopal episode several weeks prior to her presentation, but cannot recall whether she had any chest pain prior to her syncope.. Her echocardiogram done at [facility] on 08/20/2021 which showed left ventricular systolic [...] took place at an outside facility at [facility] on 09/03/2021 which was read as normal. [...] In addition she has a brother in [place] who apparently has coronary disease the specific [...] concerning lesion (more content not included)... Normal [facility] Comment on above: Result Comment: Elec tronically Signed By: MISAEL CANTRELL, Landon Mckinley\.br\Date and Time Signed: 11/17/23 11:44 EST Physician Orderon 11-17-2023 Physician Order [id number]#1.00TIFF Normal [facility] XR Pelvis 1 or 2 [facility] XR [...] mGy = na DAP = na Normal [facility] XR Spine Lumbosacral 2 or 3 [facility] [...] mGy = na DAP = na Normal [facility] Consent for Treatmenton Consent for Treatment [id number]#1.00TIFF [facility] Consent for Treatment [id number]#1.00TIFF [facility] Consultation Noteon 10-26-19 24 Consultation Note [...] QID, # 120 tab(s), Refills(s) 3, Pharmacy: [facility], 152, cm, 04/03/23 9:20:00 EDT, Height/Length Dosing, 80, kg, 04/03/23 9:20:00 EDT, Weight Dosing Protonix 40 mg Tab-DR: 40 mg = 1 tab(s), Oral, BID, # 120 tab(s), Refills(s) 0, Pharmacy: [facility], 152.4, cm, 04/01/21 7:20:00 EDT, Height/Length Dosing, 85.5, kg, 04/01/21 7:20:00 EDT, Weight Dosing losartan 100 mg Tab: 100 mg = 1 tab(s), Oral, Bedtime, # 90 tab(s), Refills(s) 1, Pharmacy: [facility], 152, cm, 07/14/23 9:26:00 EDT, Height/Length Dosing, 76.9, kg, 07/14/23 9:26:00 EDT, Weight Dosing metoprolol 50 mg ER Tab: 50 mg = 1 tab(s), Oral, Daily, # 90 tab(s), Refills(s) 1, Pharmacy: [facility], 152, cm, 07/14/23 9:26:00 EDT, Height/Length Dosing, 76.9, kg, 07/14/23 9:26:00 EDT, Weight Dosing pregabalin 25 mg Cap: 25 mg = 1 cap(s), Oral, BID, start with once a day for 3-5 days. If doing well can go to BID, # 60 cap(s), Refills(s) 0, Pharmacy: [facility], 152, cm, 10/26/23 13:07:00 EST, Height/Length Dosing, 70.5, kg, 10/26/23 13:07:00 EST, Weigh... Documented Medications Documented Aleve: Refills(s) 0 Multi Vitamin+: Oral, Daily, Refill(s) 0 alendronate 70 mg Tab: TAKE 1 TABLET BY MOUTH 30 MINUTES BEFORE first food once a week, Prophylaxis ropinirole: 0.5 mg, Oral, Refills(s) 0 Problem list: All Problems Chronic GERD / SNOMED CT 207982188 / Confirmed Unilateral primary osteoarthritis, right knee / SNOMED CT 2657864672 / Confirmed Gastritis / SNOMED CT 4310205 / Confirmed Vertigo / SNOMED CT 8743897146 / Confirmed BMI 34.0-34.9,adult / SNOMED CT 617006588 / Confirmed Regurgitation of stomach contents / SNOMED CT 926334008 / Confirmed Osteoporosis / SNOMED CT 828389780 / Confirmed HTN (hypertension) / SNOMED CT 5096504670 / Confirmed Dysphagia / SNOMED CT 50788046 / Confirmed Epigastric pain / SNOMED CT 957405998 / Confirmed Chest pain due to GERD / SNOMED CT 19494693 / Confirmed Screening for malignant neoplasm of colon / SNOMED CT 405926496 / Confirmed H/O: osteoarthritis / SNOMED CT 153864384 / Confirmed Hiatal hernia with gastroesophageal reflux / SNOMED CT 4548469520 / Confirmed Duodenogastric bile reflux / SNOMED CT 67122316 / Confirmed Sigmoid diverticulosis / SNOMED CT 4997410672 / Confirmed Tendonitis / SNOMED CT 82712205 / Confirmed Resolved: GERD - Gastro-esophageal reflux disease / SNOMED CT 1068668927 Resolved: Appendicitis / SNOMED CT 696804426 Resolved: Cough / SNOMED CT 30711299 Resolved: Sinus drainage / SNOMED CT 593138296 Canceled: GERD with apnea / SNOMED CT 9390925218 Objective Vital Signs 10/26/2023 12:48 EST Peripheral Pulse Rate 66 bpm Respiratory Rate 20 br/min Systolic Blood Pressure 143 mmHg HI Diastolic Blood Pressure 88 mmHg Mean Arterial Pressure, Cuff 106 mmHg General: Alert and oriented, No acute distress. Overweight Eye: Normal conjunctiva. HENT: Normocephalic, Normal hearing. Cardiovascular: No edema. Musculoskeletal Nor (more content not included)... Normal [facility] Comment on above: Result Comment: Elec tronically Signed By: Vicky Castillo PA-C\.br\Date and Time Signed: 10/26/23 13:22 EST Legal Correspondence Officeo n 10-26-2023 Legal Correspondence Office [id number]#1.00TIFF Normal [facility] Office/Clinic Note-Physician on 10-26-2023 Office/Clinic Note-Physician [id number]#1.00TIFF Normal [facility] Patient Correspondenceon Patient Correspondence [id number]#1.00TIFF [facility] Patient Correspondence [id number]#1.00TIFF Normal [facility] Patient Correspondence [id number]#1.00TIFF Normal [facility] Patient Correspondence [id number]#1.00TIFF Normal [facility] Patient History Officeon Patient History Office [id number]#1.00TIFF Normal [facility] Physician Orderon 10-26-2023 Physician Order [id number]#1.00TIFF Normal [facility] Physician Order [id number]#1.00TIFF Normal [facility] Consent for Procedure/Surger yon 10-07-2023 Consent for Procedure/Surgery [id number]#1.00TIFF [facility] Consent for Treatmenton 09-19 Consent for Treatment [id number]#1.00TIFF [facility] Discharge Instructionson Discharge Instructions [id number]#1.00TIFF [facility] IntraOperative Documentson 12-08-2022 IntraOperative Documents [id number]#1.00TIFF [facility] Main OR Intraoperative Recor don 10-07-2023 Main OR Intraoperative Record IntraOp Document Type FT Summary Primary Physician: Claudio Monroe DO Finalized Date/Time: 10/07/23 09:50:14 Pt. Name: CHLOE AGARWAL/Sex: 1955 Female Med Rec #: [id number] Physician: Claudio Monroe DO Financial #: [id number] Pt. Type: P Room/Bed: / Admit/Disch: 10/07/23 [...] Antoinette Brito Role Performed Surgeon - Primary Merchant Banker - Primary Scrub - Primary Time In 10/07/23 09:41:00 10/07/23 09:41:00 10/07/23 09:41:00 Time Out 10/07/23 09:50:00 10/07/23 09:50:00 10/07/23 09:50:00 Procedure TRANSFORAMINAL EPIDURAL TRANSFORAMINAL EPIDURAL TRANSFORAMINAL EPIDURAL STEROID INJECTIO(Right) STEROID INJECTIO(Right) STEROID INJECTIO(Right) Comments Last Modified By: Bhargav DUMONT, Lashanda Durant RN, Lashanda Elizalde RN 10/07/23 09:49:59 10/07/23 09:49:59 10/07/23 09:49:59 Entry 4 Case Attendee Faustino Dorado Role Performed Job Training Specialist Time In 10/07/23 09:41:00 Time Out 10/07/23 [...] Antibiotic No Time Out Lashanda Durant RN, Basilia Erickson RN, Fer Cruz DO, Bradford A., [...] and tissue Entry 1 Skin Integrity Intact, [place], Warm, and Skin Abnormality No Dry Outcomes [...] Press Point (more content not included)... Normal [facility] Main OR Preoperative Recordo n 10-07-2023 Main OR Preoperative Record Holding Area Document Type FTPM Summary Primary Physician: Claudio Monroe DO Finalized Date/Time: 10/07/23 09:09:26 Pt. Name: CHLOE AGARWAL/Sex: 1955 Female Med Rec #: [id number] Physician: Claudio Monroe DO Financial #: [id number] Pt. Type: P Room/Bed: / Admit/Disch: 10/07/23 [...] Signed By: Shea Aguirre RN 10/07/23 09:09 Normal [facility] Patient Correspondenceon Patient Correspondence [id number]#1.00TIFF Normal [facility] Consent for Treatmenton Consent for Treatment [id number]#1.00TIFF Normal [facility] Consultation Noteon 09-22-20 Consultation Note Patient: CHLOE [...] QID, # 120 tab(s), Refills(s) 3, Pharmacy: [facility], 152, cm, 04/03/23 9:20:00 EDT, Height/Length Dosing, 80, kg, 04/03/23 9:20:00 EDT, Weight Dosing Medrol 4 mg Tab: = 1 packet(s), Oral, As Directed, as directed on package labeling, X 6 day(s), # 21 tab(s), Refills(s) 0, Pharmacy: [facility], 152, cm, 09/22/23 11:39:00 EST, Height/Length Dosing, 70.5, kg, 09/22/23 11:39:00 EST, Weight Dosing Protonix 40 mg Tab-DR: 40 mg = 1 tab(s), Oral, BID, # 120 tab(s), Refills(s) 0, Pharmacy: [facility], 152.4, cm, 04/01/21 7:20:00 EDT, Height/Length Dosing, 85.5, kg, 04/01/21 7:20:00 EDT, Weight Dosing losartan 100 mg Tab: 100 mg = 1 tab(s), Oral, Bedtime, # 90 tab(s), Refills(s) 1, Pharmacy: [facility], 152, cm, 07/14/23 9:26:00 EDT, Height/Length Dosing, 76.9, kg, 07/14/23 9:26:00 EDT, Weight Dosing metoprolol 50 mg ER Tab: 50 mg = 1 tab(s), Oral, Daily, # 90 tab(s), Refills(s) 1, Pharmacy: [facility], 152, cm, 07/14/23 9:26:00 EDT, Height/Length Dosing, 76.9, kg, 07/14/23 9:26:00 EDT, Weight Dosing Documented Medications Documented Aleve: Refills(s) 0 Multi Vitamin+: Refill(s) 0 alendronate 70 mg Tab: TAKE 1 TABLET BY MOUTH 30 MINUTES BEFORE first food once a week, Prophylaxis ropinirole: 0.5 mg, Oral, Refills(s) 0 Problem list: All Problems BMI 34.0-34.9,adult / SNOMED CT 382332403 / Confirmed Chest pain due to GERD / SNOMED CT 01284200 / Confirmed Chronic GERD / SNOMED CT 771402630 / Confirmed Duodenogastric bile reflux / SNOMED CT 62572421 / Confirmed Dysphagia / SNOMED CT 24603188 / Confirmed Epigastric pain / SNOMED CT 105776792 / Confirmed Gastritis / SNOMED CT 4595714 / Confirmed H/O: osteoarthritis / SNOMED CT 665070289 / Confirmed Hiatal hernia with gastroesophageal reflux / SNOMED CT 4515541187 / Confirmed HTN (hypertension) / SNOMED CT 3671352208 / Confirmed Osteoporosis / SNOMED CT 788625281 / Confirmed Regurgitation of stomach contents / SNOMED CT 478426474 / Confirmed Screening for malignant neoplasm of colon / SNOMED CT 251158469 / Confirmed Sigmoid diverticulosis / SNOMED CT 6987246612 / Confirmed Tendonitis / SNOMED CT 62363627 / Confirmed Unilateral primary osteoarthritis, right knee / SNOMED CT 7490351887 / Confirmed Vertigo / SNOMED CT 0878888081 / Confirmed Objective Vital Signs 09/22/2023 11:23 [...] after she (more content not included)... Normal [facility] Comment on above: Result Comment: Elec tronically Signed By: Valeri CANTRELLDemar.br\Date and Time Signed: 09/22/23 11:54 EST Office/Clinic Note-Physician on 09-22-2023 Office/Clinic Note-Physician [id number]#1.00TIFF Normal [facility] Patient Correspondenceon Patient Correspondence [id number]#1.00TIFF Normal [facility] Patient Correspondence [id number]#1.00TIFF Normal [facility] Patient History Officeon Patient History Office [id number]#1.00TIFF Normal [facility] Physician Orderon 07-28-2023 Physician Order [id number]#1.00TIFF Normal [facility] Consenton 07-24-2023 Consent [id number]#1.00TIFF Normal [facility] Patient Eval Forms Officeon 07-24-2023 Patient Eval Forms Office [id number]#1.00TIFF Normal [facility] Patient Eval Forms Office [id number]#1.00TIFF Normal [facility] Consent for Treatmenton Consent for Treatment [id number]#1.00TIFF Normal [facility] CHEMISTRYOrdered By: SYSTEM SYSTEM on 06-05-2023 Anion gap [Moles/Vol] 12 mmol/L Normal 6 - 16 mEq/L [facility] Remisol Calcium [Mass/Vol] 9.5 mg/dL Normal 8.9 - 11. 1 mg/dL FT Remisol Chloride [Moles/Vol] 107 mmol/L Normal 101 - 111 mmol/L [facility] Remisol CO2 [Moles/Vol] 26 mmol/L Normal 21 - 31 mmol/L [facility] Remisol Creatinine [Mass/Vol] 0.7 mg/dL Normal 0.5 - 1.3 mg/dL [facility] Remisol GFR/1.73 sq M.predicted among non-blacks MDRD (S/P/Bld) [Vol rate/Area] 96 mL/min/1.73 m2 Normal >=59mL/min /1.73 m2 [facility] Chem S Glucose [Mass/Vol] 100 mg/dL Normal 55 - 199 mg/dL FT Remisol Potassium [Moles/Vol] 3.6 mmol/L Normal 3.5 - 5.3 mmol/L [facility] Remisol Sodium [Moles/Vol] 141 mmol/L Normal 135 - 145 mmol/L [facility] Remisol Troponin I.cardiac [Mass/Vol] 8.30 pg/mL Low 10.10 - 27.10 pg/mL [facility] Remisol Urea nitrogen [Mass/Vol] 19 mg/dL Normal 5 - 21 mg/dL [facility] Remisol Urea nitrogen/Creatinine [Mass ratio] 27 mg/mg High 10 - 20 [facility] Remisol CHEMISTRYOrdered By: Lab ROP User on 06-05-2023 Glucose [Mass/Vol] 109 mg/dL High 55 - 99 mg/dL [facility] POC Subsection Comment on above: Result Comment: Kacey wiley Meter POC Device SN [id number] Invalid Interpretation Code [facility] POC Subsection POC User ID [id number] Invalid Interpretation Code [facility] POC Subsection POC Username SHARITA VARGAS Invalid Interpretation Code [facility] POC Subsection HEMATOLOGYOrdered By: SYSTEM SYSTEM on 06-05-2023 Basophils/100 WBC (Bld) 0.8 % Normal 0.0 - 2.0 % [facility] HemeAutoSS Basophils/Leukocyte s Auto (Bld) [Pure # fraction] 0.1 E9/L Normal 0.0 - 0.2 E9/L FT HemeAutoSS Eosinophils/100 WBC (Bld) 3.4 % Normal 0.0 - 8.0 % FT HemeAutoSS Eosinophils/Leukocy micheal Auto (Bld) [Pure # fraction] 0.3 E9/L Normal 0.0 - 0.5 E9/L FT HemeAutoSS Lymphocytes/100 WBC (Bld) 20.2 % Normal [...] 8.2 fL Normal 6.4 - 10.8 fL [facility] HemeAutoSS Platelets (Bld) [#/Vol] 239.0 E9/L Normal 150.0 - 500.0 E9/L [facility] HemeAutoSS RBC (Bld) [#/Vol] 4.5 E12/L Normal 4.3 - 5.9 E12/L FT HemeAutoSS WBC corrected for nucl RBC Auto (Bld) [#/Vol] 7.5 E9/L Normal 4.0 - 11.0 E9/L FT HemeAutoSS CREATININEon 03-03-2023 Creatinine [Mass/Vol] 0.89 mg/dL Normal 0.55-1.02 [facility] Comment on above: Performed By: #### C LING #### [facility] [address] [address] [address] Lorraine Scott EGFR-AF MONTENEGRIN >60 Normal >=60 [facility] Comment on above: Performed By: #### C LING #### [facility] [address] [address] [address] Lorraine Scott EGFR-NON AF MONTENEGRIN >60 Normal >=60 [facility] Comment on above: Performed By: #### C LING #### [facility] [address] ABD/PELV W CONon [...] RYAN VAZQUEZ Date: 2023-03-03 10:08 Normal [facility] US SINGLE QUAD RT UPPERon US [...] RYAN VAZQUEZ Date: 2023-02-09 11:57 Normal [facility] Covid-19 PCR ([facility])on 10-19 SARS-CoV-2 (COVID-19) RNA SHAHEEN+probe Ql (Unsp spec) Detected Abnormal NOT DETECTED [facility] Comment on above: Result Comment: This test is not yet approved or cleared by the [place] FDA. When there are no FDA-approved or cleared tests available, and other criteria are met, FDA can make tests available under an emergency access mechanism called an Emergency Use Authorization (EUA). The EUA for this test is supported by the Computer Applications Instructor of Health and Human Service's declaration that [...] longer be used). Performed By: #### C [facility] #### [facility] [address] [place] [address] Dr. Lorraine Scott INFLUENZA A AND B AGon 11-05 [facility] SEE BELOW Normal [facility] Comment on above: Result Comment: Nega tive for Flu A protein angiten. Infection due to Flu A cannot be ruled out. Flu A angiten in the sample may be below the detection limit of the test. Performed By: #### I NFLUAB #### [facility] [address] [place] [address] Dr. Lorraine [facility] Normal [facility] Comment on above: Result Comment: Nega tive for Flu B protein antigen. Infection due to Flu B cannot be ruled out. Flu B antigen in the sample may be below the detection limit of the test. Performed By: #### I NFLUAB #### [facility] [address] [place] [address] Dr. Lorraine Scott INFLUENZA A AG Negative Normal NEGATIVE SEE COMMENT [facility] Comment on above: Performed By: #### I NFLUAB #### [facility] [address] [place] [address] Dr. Lorraine Scott INFLUENZA B AG Negative Normal NEGATIVE SEE COMMENT [facility] Comment on above: Performed By: #### I NFLUAB #### [facility] [address] [place] [address] Dr. Lorraine Scott MG MAMM SCREEN 3D LAURA CADon 10-22-2022 MG MAMM SCREEN 3D LAURA CAD Patient: CHLOE AGARWAL Exam Date: 10/22/2022 : 1955 Gender:F Ordering : DR JUAN CARLOS NARVAEZ . Admission #: [id number] Family : Order #: [id number] CLICK HERE TO VIEW EXAM RADIOLOGY REPORT [...] Treatments None Family Cancers None LOCATION: [facility] BREAST COMPOSITION: Scattered areas fibroglandular density. [...] Vazquez M.D. on 10/23/2022 at 08:41 Normal [facility] XR DEXA BONE DENSITYon 10-22 XR [...] by: RYAN VAZQUEZ Date: 2022-10-22 09:12 Normal [facility] PAP ACOG PANEL 2: 30 to 65on 10-03-2022 . . Normal [facility] Comment on above: Result Comment: Perf ormed at: WB Performed By: #### 4 [id number] #### [facility] [address] [address] [address] Lorraine Scott Age Gdln ACOG Testing 30-65 Normal [facility] Comment on above: Performed By: #### 4 [id number] #### [facility] [address] [place] [address] Dr. Lorraine Scott DIAGNOSIS: Comment Normal [facility] Comment on above: Result Comment: NEGA TIVE FOR INTRAEPITHELIAL LESION OR MALIGNANCY. CELLULAR CHANGES ASSOCIATED WITH ATROPHY ARE PRESENT. Performed at: WB Performed By: #### 4 [id number] #### [facility] [address] [place] [address] Dr. Lorraine Scott HPV Aptima Negative Normal Negative [facility] Comment on above: Result Comment: This nucleic acid amplification test detects fourteen high-risk HPV types (16,18,31,33,35,39,45,51,52,56,58,59,66,68) without differentiation. Performed at: =G Performed By: #### 4 [id number] #### [facility] [address] [place] [address] Dr. Lorraine Scott HPV Genotype Reflex Comment Normal [facility] Comment on above: Result Comment: Crit eria not met, HPV Genotype not performed. Performed at: WB Performed By: #### 4 [id number] #### [facility] [address] [place] [address] Dr. Lorraine Scott Methodology: Comment Normal [facility] Comment on above: Result Comment: This liquid based ThinPrep(R) pap test was screened with the use of an image guided system. Performed at: WB Performed By: #### 4 [id number] #### [facility] [address] [place] [address] Dr. Lorraine Scott Note: Comment Normal [facility] Comment on above: Result Comment: The Pap smear is a screening test designed to aid in the detection of premalignant and malignant conditions of the uterine cervix. It is not a diagnostic procedure and should not be used as the sole means of detecting cervical cancer. Both false-positive and false-negative reports do occur. . Performed at: WB Performed By: #### 4 [id number] #### [facility] [address] [place] [address] Dr. Lorraine Scott Performed by: Comment Normal [facility] Comment on above: Result Comment: Kong Juarez, Astronomy Professor (ASCP) Performed at: WB Performed By: #### 4 [id number] #### [facility] [address] [address] [address] Lorraine Scott Specimen adequacy: Comment Normal [facility] Comment on above: Result Comment: Sati sfactory for evaluation. Endocervical component may not be distinguished in cases of atrophy. Performed at: WB Performed By: #### 4 [id number] #### [facility] [address] [address] [address] Lorraine Scott CHEMISTRYOrdered By: SYSTEM SYSTEM [...] rate/Area] mL/min/1.73 m2 Normal >=59mL/min /1.73 m2 [facility] Chem S GFR/1.73 sq M.predicted among non-blacks MDRD (S/P/Bld) [Vol rate/Area] 56 mL/min/1.73 m2 Low >=59mL/min /1.73 m2 [facility] Chem S Glucose [Mass/Vol] 104 mg/dL Normal 55 - 199 mg/dL [facility] Remisol Potassium [Moles/Vol] 4.6 mmol/L Normal 3.5 - 5.3 mmol/L [facility] Remisol Sodium [Moles/Vol] 138 mmol/L Normal 135 - 145 mmol/L [facility] Remisol Urea nitrogen [Mass/Vol] 20 mg/dL Normal 5 - 21 mg/dL [facility] Remisol Urea nitrogen/Creatinine [Mass ratio] 20 mg/mg Normal 10 - 20 [facility] Remisol Intraoperative Noteon 2017 Intraoperative Note [id number]#1.00OTGTC[facility] Coding Summaryon 12-14-2017 Coding Summary CODING DATE: 018 [facility] STATUS: Home PAYOR: Commercial Insurance APC DESCRIPTION 5361 Level 1 Laparoscopy and Related Services ADMIT DX: REASON FOR VISIT DX: K35.80 Unspecified acute appendicitis FINAL DX: PRINCIPAL: K35.80 Unspecified acute appendicitis SECONDARY: K21.9 Gastro-esophageal reflux disease without esophagitis PYMT PROC APC STAT DESCRIPTION DOCTOR NAME DATE 61860 5361 J1 Laparoscopy, surgical, Adryan Yoon MD appendectomy NOTE: The code number assigned matches the documented diagnosis and / or procedure in the patient's chart. However, the narrative phrase printed from the coding software may appear abbreviated, or result in slightly different terminology. Coded By: Tenisha Smith Date Saved: 12/14/2017 09:53 am [facility] Lab - Other Lab Resultson Lab - Other Lab Results [id number]#1.00OT[facility] Operative Report - Surgeon/P avery 12-09-2017 [...] appendix was inflamed.It was grasped with a Columbia clamp. A defect in the mesoappendix wascreated [...] theprocedure without any difficulties.Adryan Yoon M.D.JOB #: [id number]: 12/09/2017T: 12/09/2017[Electronically Signed on: 12/15/2017 10:32 EST] Adryan Yoon MD[Verified on: 12/15/2017 10:32 EST] Adryan Yoon MD[Transcribed on: 12/09/2017 09:14 EST][facility] Outside Recordson 12-09-2017 Outside Records [id number]#1.00OTGT [facility] Outside Records [id number]#1.OTGTIFF [facility] MAGR Postoperative Recordon 12-08-2017 MAGR Postoperative Record MAGR Phase II Record Summary Primary Physician: Adryan Yoon MD Finalized Date/Time: 12/08/17 13:12:55 Pt. Name: ANYCHLOE/Sex: 1955 FEMALE Med Rec #: [id number] Physician: Adryan Yoon MD Financial #: [id number] Pt. Type: D Room/Bed: [facility] Admit/Disch: 12/04/17 03:05:00 - 12/05/17 [...] discharge instructions. General Comments: care per 2 [facility] nursing personnel Finalized By: Chloe Turcios RN Document Signatures Signed By: Chloe Turcios RN 12/08/17 13:12 [facility] Operative Report - Surgeon/P avery 12-08-2017 Operative Report - Surgeon/Physician [id number]#1.00OT [facility] Pathology Sendout Teston Pathology Send Out. See Report [facility] Comment on above: Order Comment: JANET COWART Performed By: #### 2 [id number] ####[facility] (DEFAULT)[address] [id number] Provider Orderson 12-08-2017 Provider Orders [id number]#[address] Consent Formson 12-07-2017 Consent Forms [id number]#[address] [place] [address] Intraoperative Noteon 2017 Intraoperative Note [id number]#1.OT[facility] Medication Managementon 11-19 Medication Management [id number]#[address] [place] [address] Telemetry Stripson 8 Telemetry Strips [id number]#[address] Discharge Summaryon 12-06-19 Discharge Summary DISCHARGE DIAGNOSIS: Acute appendicitis.DISCHARGE CONDITION: Good.HOSPITAL COURSE: The patient is a 62-year-old woman who presented [facility] emergency department. She was found to have a slightlyelevated white blood cell count. A CT scan was consistent with acuteappendicitis. The patient wanted to be transferred to [facility] andas a result, she underwent a laparoscopic appendectomy. Postoperatively sheis doing well. Her white blood cell count decreased to the normal range. Sheis tolerating a regular diet. Her pain is controlled and she is ambulatingwithout difficulty. As a result, she will be discharged home. She willfollow-up with me in two weeks.Adryan Yoon M.D.JOB #: [id number]: 12/05/2017T: 12/06/2017[Electronically Signed on: 12/09/2017 07:13 EST] Adryan Yoon MD[Verified on: 12/09/2017 07:13 EST] Adryan Yoon MD[Transcribed on: 12/06/2017 08:45 EST]GDU Normal [facility] .Auto Diff 1on 12-05-2017 Auto Baso % 0.1 % Low 0.2-2.0 [facility] Comment on above: Performed By: #### 7 [id number], [id number] ####[facility] (DEFAULT)[address] [place] [address] Auto Cedar % 8 % Normal 1-12 [facility] Comment on above: Performed By: #### 7 [id number], [id number] ####[facility] (DEFAULT)[address] [place] [address] Auto Neut % 86 % Normal 44-88 [facility] Comment on above: Performed By: #### 7 [id number], [id number] ####[facility] (DEFAULT)[address] [place] [address] Baso Abs# 0.0 x10 Normal 0.0-0.2 [facility] Comment on above: Performed By: #### 7 [id number], [id number] ####[facility] (DEFAULT)[address] [place] [address] Eos Abs# 0.0 x10 Normal 0.0-0.4 [facility] Comment on above: Performed By: #### 7 [id number], [id number] ####[facility] (DEFAULT)[address] [place] [address] Eosinophils/100 leukocytes 0.0 % Low 0.9-4.0 [facility] Comment on above: Performed By: #### 7 [id number], [id number] ####[facility] (DEFAULT)[address] [place] [address] Lymphocytes 0.6 x10 Low 1.3-2.9 [facility] Comment on above: Performed By: #### 7 [id number], [id number] ####[facility] (DEFAULT)[address] [place] [address] Lymphocytes/100 leukocytes 6 % Low 14-48 [facility] Comment on above: Performed By: #### 7 [id number], [id number] ####[facility] (DEFAULT)[address] [place] [address] Cedar Abs# 0.9 x10 High 0.0-0.8 [facility] Comment on above: Performed By: #### 7 155549, [id number] ####[facility] (DEFAULT)[address] [place] [address] Neut Abs# 9.9 x10 High 1.5-9.2 [facility] Comment on above: Performed By: #### 7 [id number], [id number] ####[facility] (DEFAULT)[address] [place] [address] CBC w/ Auto Diffon 8 Erythrocyte distribution width Auto Ratio (RBC) 13.6 % Normal 11.5-15.0 [facility] Comment on above: Performed By: #### 7 [id number], [id number] ####[facility] (DEFAULT)[address] [place] [address] Erythrocytes (RBC) 3.75 x10 Normal 3.70-5.30 [facility] Comment on above: Performed By: #### 7 [id number], [id number] ####[facility] (DEFAULT)[address] [place] [address] Hematocrit (HCT) 34.4 % Normal 33.7-40.4 [facility] Comment on above: Performed By: #### 7 [id number], [id number] ####[facility] (DEFAULT)[address] [place] [address] Hemoglobin mass conc (Bld) 11.0 g/dL Low 11.3-15.9 [facility] Comment on above: Performed By: #### 7 [id number], [id number] ####[facility] (DEFAULT)[address] [place] [address] Man Diff? Auto Normal [facility] Comment on above: Performed By: #### 7 [id number], [id number] ####[facility] (DEFAULT)[address] [place] [address] MCH 29 pg Normal 24-34 [facility] Comment on above: Performed By: #### 7 [id number], [id number] ####[facility] (DEFAULT)[address] [place] [address] MCHC mass conc (RBC) 32 g/dL Normal 26-37 [facility] Comment on above: Performed By: #### 7 [id number], [id number] ####[facility] (DEFAULT)[address] [place] [address] MCV 92 fL Normal 81-100 [facility] Comment on above: Performed By: #### 7 [id number], [id number] ####[facility] (DEFAULT)[address] [place] [address] Platelet mean volume (PMV) 11.7 fL High 6.3-10.2 [facility] Comment on above: Performed By: #### 7 [id number], [id number] ####[facility] (DEFAULT)[address] [place] [address] Platelets 204 x10 Normal 138-427 [facility] Comment on above: Performed By: #### 7 [id number], [id number] ####[facility] (DEFAULT)[address] [place] [address] WBC (Leukocytes) 11.4 x10 High 3.5-10.5 [facility] Comment on above: Performed By: #### 7 [id number], [id number] ####[facility] (DEFAULT)[address] [place] [address] Education Noteon 12-05-2017 Education Note Education MaterialsGastroenterologyAppen [...] Reviewed: 02/20/2016Elsevier Interactive Patient Education ? 2017 [employer] Normal [facility] Inpatient Clinical Summaryon 12-05-2017 Inpatient Clinical Summary [facility] 2SOUTHClinical Discharge SummaryPERSON INFORMATIONName CHLOE AGARWAL Age 62 Years 59Sex FEMALE Language Setswana PCP Agus MCGHEE Status [facility]-72 Acct# Arrival 12/04/17 03:05:00Visit Reason APPENDICITIS Acuity LOS 000 34:38Address:[place] [id number]:PROVIDER INFORMATIONVITALS INFORMATIONVital Sign Triage LatestTemp Oral 36.8 DegC 36.4 DegCTemp TemporalTemp IntravascularTemp AxillaryTemp Fblckm07 Sat 99 % 99 %Respiratory Rate 16 br/min 18 br/minPeripheral Pulse Rate 79 bpm 60 bpmApical Heart Rate 76 bpm 60 bpmBlood Pressure 138 mmHg / 86 mmHg 97 mmHg / 59 mmHgComment:MEDICAL INFORMATIONAllergy Info:Allergies sulfonamidePrescriptions Given:Home Meds Displayacetaminophen-hydrocodo ne ([place] 7.5 mg-325 mg oral tablet) 1 tab(s), [...] 4 hours as needed for for painacetaminophen-hydrocodone ([place] 7.5 mg-325 mg oral tablet) 1 tab(s) [...] range between ( 1.3 and 2.9 ) Cedar Abs#: 0.9 x103/mcL -- Normal range between ( 0.0 and 0.8 ) Auto Baso %: 0.1 % -- Normal range between ( 0.2 and 2.0 ) Auto Cedar %: 8 % -- Normal range between [...] INFORMATIONInstructions:Append icitisFollow up:With: Address: When:Adryan Yoon MD [address] [place], [place] [id number] Business (1)DIAGNOSIS1:Acute appendicitisPROBLEMSProblems Active Arthritis Heart murmur HeartburnComment:PHYS DOC NOTES Normal [facility] Inpatient Patient Summaryon 12-05-2017 Inpatient Patient Summary [facility] [place] [address] patient Discharge InstructionsName: CHLOE AGARWALDOB: [birth year] Address: [address] Care Provider:Name: VICK MCGHEEPhone: After you are discharged if you find you have any questions, please, call [phone] ext [phone] to speak to a nurse.Discharge Diagnosis: 1:Acute [...] or business decisions or sign any legal documentsSelect [facility] would like to thank you for allowing us to assist you with your healthcare needs. The following includes patient education materials and information regarding your injury/illness.CHLOE AGARWAL has been given the following list of follow-up instructions, prescriptions, and patient education materials:Follow-up InstructionsWith: Address: When:Adryan Yoon MD [address] [place] [address], [place] [address] Business (1)MedicationsDuring the course of your visit, your medication list was updated with the most current information. The details of those changes are reflected below:Medications to Continue That Have Not ChangedOther Medicationsacetaminophen-hydro codone ([place] 7.5 mg-325 mg oral tablet) 1 tab(s) [...] list that you can keep with you.acetaminophen-hydrocodone ([place] 7.5 mg-325 mg oral tablet) 1 tab(s) [...] Reviewed: 02/20/2016Floydevviktor Interactive Patient Education ? 2017 [employer].Viruses or BacteriaWhat?s got you sick?Antibiotics only treat [...] for Disease Control and Prevention June 2014 [facility] Progress Note - Nurseon - Pulse (Heart Rate) Pt. reports abd pain [...] on: 12/05/2017 09:52 EST] Sim Chamorro RN [facility] Progress Note - Nurse Pt walking the hallway with RN, 200 ft, standby assist. Pt is steady. No c/o SOB or dizziness. Bilateral upper and lower abdominal pain 3/10, prn norco administered as ordered. Will continue to monitor, call light in reach.[Electronically Signed on: 12/05/2017 05:50 EST] Serina Cross[Verified on: 12/05/2017 05:50 EST] Serina Cross [facility] Progress Note - Nurse Pt [...] Cross[Verified on: 12/04/2017 23:39 EST] Serina Cross [facility] Anesthesia Noteon 12-04-2017 Anesthesia Note Patient: CHLOE AGARWAL : 62 years Sex: FEMALE : [birth year]Associated Diagnoses: NoneAuthor: Fernie Sandovalostoperative InformationPost Operative Note: Post Anesthesia Care Unit.Review / ManagementCondition: Stable.AssessmentAnesthetic outcomeNo anesthetic complications noted.PlanTransfer/ Discharge: Patient can be discharged from PACU when criteria met.Condition good.[Electronically Signed on: 12/04/2017 15:01 EST] Fernie Sandoval DO[Verified on: 12/04/2017 15:01 EST] Fernie Sandoval DO [facility] Anesthesia Note Patient: CHLOE AGARWAL [...] 400 mg = 2 cap(s), PRN, PO, u3moItkIWE 20 mg oral delayed release capsule 20 mg = 1 cap(s), PO, DailyProblem list (past medical history):All ProblemsAlteration in comfort: pain / SNOMED CT 15016423 / ConfirmedArthritis / SNOMED CT 8559136 / ConfirmedHeart murmur / SNOMED CT 403514665 / ConfirmedHeartburn / SNOMED CT 37104576 / ConfirmedResolved: Kidney stones / SNOMED CT 266620590Cxxqrolj: History of renal stent / SNOMED CT 1075889855Ovvmfjeq: Acute appendicitis / SNOMED CT 732201809HjrwmdnylMqxdkd History:DementiaFatherLiver massSisterCHF (congestive heart failure)MotherFatherProcedure history:History of right total knee replacement (101542094977135).History of left total knee replacement (699671026373140).Tonsillectom y (074643730).Removal of ureteral stent (018138823).History of ureteral stent placement (4395325777).Social History Alcohol Assessment Use: Never. Tobacco Assessment Never (less than 100 in lifetime) Tobacco Use:. Substance Abuse Assessment Substance use: Never. 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 Home/Environment Assessment Lives with Children, Spouse. Living situation: Home/Independent. Nutrition/Health Assessment Regular, Caffeine intake amount: Hot tea in the morning..Social & Psychosocial NtlzbuPgnyoxg74/16/2018 Alcohol Use: NeverEmployment/Flsdiz70/16/20 18 Status: Self employed Description: Office workHome/Lneynsldopa68/16/2018 Lives with: Children, Spouse Living situation: Home/IndependentNutrition/Heal 12/04/2017 Type of diet: Regular Caffeine intake amount: Hot tea in the morningSubstance Abuse12/04/2017 Substance use: XabmaLmqtbak49/16/2018 Smoking tobacco use: Never (less than 100 in l.Physical ExaminationVS/MeasurementsMeas urements from flowsheet : Czdfznsakegc87/16/18 03:09 EST Height 152.400 cm Height/Length Dosing 152.400 cm Weight 71.200 kg Weight Dosing 71.200 kg Body Mass Index 30.660 kg/m2,Vital Signs (last 24 hrs) Last ChartedTemp Oral 36.7 DegC (DEC 04 07:00)Heart Rate Peripheral 76 bpm (DEC 04 07:00)Resp Rate 18 br/min (DEC 04 07:00)SBP 123 mmHg (DEC 04 07:00)DBP 77 mmHg (DEC 04:00)SpO2 99 % (DEC 04:)Weight 71.200 kg (DEC 04 03:09)Height 152.40 cm (DEC 04:09)General: Alert and oriented, No acute distress.Airway: Mallampati classification: II (soft palate, fauces, uvula visible). Temporomandibular joint mobility: Good. Mouth: Teeth ( [place] ). Neck: Non-tender, Full range of motion.Respiratory: [...] on: 12/04/2017 08:38 EST] Fernie Sandoval DO [facility] History and Physicalon 12-04 History and Physical DATE OF ADMISSION: 12/04/17 MEDICAL HISTORYCHIEF COMPLAINT: Right lower quadrant abdominal pain.HISTORY OF PRESENT ILLNESS: The patient is a 62-year-old woman withabdominal pain. She presented to the emergency department at [facility]. A CT scan of the abdomen and pelvis was obtained which wasconsistent with acute appendicitis. Due to personal reasons, she did notwant the surgery performed at [facility] and as a result, shewanted to be [facility] [...] to undergo the procedure.Adryan Yoon M.D.JOB #: [id number]: 12/04/2017T: 12/04/2017[Electronically Signed on: 12/04/2017 07:16 EST] Adryan Yoon MD[Verified on: 12/04/2017 07:16 EST] Adryan Yoon MD[Transcribed on: 12/04/2017 06:52 EST][facility] MAGR Intraoperative Recordon 12-04-2017 MAGR Intraoperative Record MAGR Intra-Op Record Summary Primary Physician: Adryan Yoon MD Finalized Date/Time: 12/04/17 15:26:26 Pt. Name: CHLOE AGARWAL Arlen Powell/Sex: 1955 FEMALE Med Rec #: [id number] Physician: Adryan Yoon MD Financial #: [id number] Pt. Type: D Room/Bed: [facility] Admit/Disch: 12/04/17 03:05:00 - Institution: [...] Case Attendee Adryan Yoon MD, David DO Morgan, Olinda M Role Performed Surgeon - Primary Anesthesiologist of Merchant Banker Record Time In 12/04/17 09:44:00 12/04/17 09:44:00 12/04/17 09:44:00 Time Out 12/04/17 10:42:00 12/04/17 10:42:00 12/04/17 10:42:00 Procedure Appendectomy Appendectomy Appendectomy Laparoscopic Laparoscopic Laparoscopic Last Modified By: Olinda Mora Cynthia M Cartier, Cynthia M 12/04/17 10:56:16 12/04/17 10:56:16 12/04/17 10:56:16 Entry 4 Entry 5 Entry 6 Case Attendee Jennifer Li CAREER BASED INTERVENTION COORDINATOR BOARD CSFA/CAREER BASED INTERVENTION COORDINATOR, Antonia Bah RN Role Performed Modeling Analyst Scrub Personnel Merchant Banker Time In 12/04/17 09:44:00 12/04/17 09:44:00 12/04/17 [...] Final Counts Olinda Mora, Performed By BOARD CSFA/RADHA, YESENIA Surgeon notified of Yes final counts [...] Signed By: Antonia Pérez RN 12/04/17 [facility] Primary Physician: Adryan Yoon MD Finalized Date/Time: 12/04/17 11:35:32 Pt. Name: CHLOE AGARWAL /Sex: 1955 FEMALE Med Rec #: [id number] Physician: Adryan Yoon MD Financial #: [id number] Pt. Type: D Room/Bed: 229/1 Admit/Disch: 12/04/17 03:05:00 - Institution: PACU Case Times MAGR Entry 1 In PACU I 12/04/17 10:44:00 Discharge from PACU 12/04/17 11:25:00 I Last Modified By: Vernell Gunderson RN 12/04/17 11:35:30 Finalized By: Vernell Gunderson RN Document Signatures Signed By: Vernell Gunderson RN 12/04/17 11:35 Normal [facility] Progress Note - Nurseon 11-19 Progress Note [...] on: 12/04/2017 04:41 EST] Liliane Rivero RN [facility] Vital Signs Date Time Vital Sign Value Performing Clinician Davian swan 10-05-2024 11:45-0500 Diastolic blood pressure 76 mm[Hg] Lokesh Mcqueen [facility] 10-05-2024 11:45-0500 Mean blood pressure 102 mm[Hg] Lokesh Mcqueen [facility] 10-05-2024 11:45-0500 Systolic blood pressure 153 mm[Hg] Lokesh Mcqueen [facility] 10-05-2024 11:35-0500 Blood Pressure Location Lokesh Mcqueen [facility] 10-05-2024 11:35-0500 Diastolic blood pressure 84 mm[Hg] Lokesh Mcqueen [facility] 10-05-2024 11:35-0500 Heart rate 62 /min Lokesh Mcqueen [facility] 10-05-2024 11:35-0500 Respiratory rate 18 /min Lokesh Mcqueen [facility] 10-05-2024 11:35-0500 SaO2% (BldA) [Mass fraction] 98 % Lokesh Mcqueen [facility] 10-05-2024 11:35-0500 Systolic blood pressure 156 mm[Hg] Lokesh Mcqueen [facility] 08-19-2024 13:49-0400 Heart rate 68 /min SAM KAISER [facility] 08-19-2024 13:49-0400 SaO2% (BldA) [Mass fraction] 98 % SAM KAISER [facility] 08-19-2024 13:49-0400 Blood Pressure Location SAM KAISER [facility] 08-19-2024 13:49-0400 Diastolic blood pressure 77 mm[Hg] SAM KAISER [facility] 08-19-2024 13:49-0400 Mean blood pressure 97 mm[Hg] SAM KAISER [facility] 08-19-2024 13:49-0400 Systolic blood pressure 136 mm[Hg] SAM KAISER [facility] 08-19-2024 13:48-0400 Respiratory rate 18 /min SAM KA[facility] 08-19-2024 12:16-0400 Heart rate 52 /min SAM [facility] 08-19-2024 12:16-0400 SaO2% (BldA) [Mass fraction] 100 % SAM [facility] 08-19-2024 12:16-0400 Blood Pressure Location SAM KAISER [facility] 08-19-2024 12:16-0400 Diastolic blood pressure 63 mm[Hg] SAM KAISER [facility] 08-19-2024 12:16-0400 Mean blood pressure 81 mm[Hg] SAM KAISER [facility] 08-19-2024 12:16-0400 Systolic blood pressure 117 mm[Hg] SAM K[facility] 08-19-2024 12:15-0400 Respiratory rate 18 /min SAM [facility] 08-19-2024 09:55-0400 Heart rate 50 /min SAM [facility] 08-19-2024 09:55-0400 SaO2% (BldA) [Mass fraction] 98 % SAM [facility] 08-19-2024 09:55-0400 Diastolic blood pressure 68 mm[Hg] SAM KAISER [facility] 08-19-2024 09:55-0400 Mean blood pressure 81 mm[Hg] SAM KAISER [facility] 08-19-2024 09:55-0400 Systolic blood pressure 106 mm[Hg] SAM KA[facility] 08-19-2024 09:54-0400 Respiratory rate 18 /min SAM [facility] 08-19-2024 08:04-0400 Body temperature 97.52 [degF] SAM [facility] 08-19-2024 08:03-0400 Blood Pressure Location SAM KA[facility] 08-11-2024 10:49-0400 Body height 152.4 cm Sydnie Villalobos DPM Work Phone: [facility] 08-11-2024 10:49-0400 Body mass index (BMI) [Ratio] 30.86 kg/m2 Sydnie Villalobos DPM Work Phone: [facility] 08-11-2024 10:49-0400 Body weight 71.67 kg Sydnie Villalobos DPM Work Phone: [facility] 07-13-2024 15:01-0400 Blood Pressure Location Willie Kaur [facility] 07-13-2024 15:01-0400 Diastolic blood pressure 82 mm[Hg] Willie Kaur [facility] 07-13-2024 15:01-0400 Heart rate 68 /min Willie Kaur [facility] 07-13-2024 15:01-0400 Respiratory rate 18 /min Willie Kaur [facility] 07-13-2024 15:01-0400 SaO2% (BldA) [Mass fraction] 98 % Willie Kaur [facility] 07-13-2024 15:01-0400 Systolic blood pressure 137 mm[Hg] Willie Kaur [facility] 07-06-2024 14:55-0400 Diastolic blood pressure 82 mm[Hg] Claudio Monroe [facility] 07-06-2024 14:55-0400 Heart rate 66 /min Claudio Monroe [facility] 07-06-2024 14:55-0400 Mean blood pressure 103 mm[Hg] Claudio Monroe [facility] 07-06-2024 14:55-0400 Respiratory rate 14 /min Claudio Monroe [facility] 07-06-2024 14:55-0400 Systolic blood pressure 144 mm[Hg] Claudio Monroe [facility] 05-08-2024 09:00-0400 Diastolic blood pressure 63 mm[Hg] Nelson Solares [facility] 05-08-2024 09:00-0400 Heart rate 55 /min Nelson Solares [facility] 05-08-2024 09:00-0400 Mean blood pressure 78 mm[Hg] Nelson Solares [facility] 05-08-2024 09:00-0400 SaO2% (BldA) [Mass fraction] 99 % Nelson Solares [facility] 05-08-2024 09:00-0400 Systolic blood pressure 108 mm[Hg] Nelson Solares [facility] 05-08-2024 08:26-0400 Diastolic blood pressure 77 mm[Hg] Nelson Solares [facility] 05-08-2024 08:26-0400 Heart rate 58 /min Nelson Solares [facility] 05-08-2024 08:26-0400 Mean blood pressure 105 mm[Hg] Nelson Solares [facility] 05-08-2024 08:26-0400 Respiratory rate 15 /min Nelson Beck [facility] 05-08-2024 08:26-0400 SaO2% (BldA) [Mass fraction] 98 % Nelson Solares [facility] 05-08-2024 08:26-0400 Systolic blood pressure 161 mm[Hg] Nelson Beck [facility] 05-08-2024 07:19-0400 Body temperature 98.42 [degF] Nelson Solares [facility] 05-08-2024 07:19-0400 Diastolic blood pressure 82 mm[Hg] Nelson Solares [facility] 05-08-2024 07:19-0400 Heart rate 64 /min Nelson Solares [facility] 05-08-2024 07:19-0400 Respiratory rate 16 /min Nelson Solares [facility] 05-08-2024 07:19-0400 SaO2% (BldA) [Mass fraction] 100 % Nelson Solares [facility] 05-08-2024 07:19-0400 Systolic blood pressure 163 mm[Hg] Nelson Beck [facility] 12-18-2023 13:32-0500 Blood Pressure Location Willie Kaur [facility] 12-18-2023 13:32-0500 Diastolic blood pressure 70 mm[Hg] Willie Kaur [facility] 12-18-2023 13:32-0500 Heart rate 60 /min Willie Kaur [facility] 12-18-2023 13:32-0500 SaO2% (BldA) [Mass fraction] 99 % Willie Kaur [facility] 12-18-2023 13:32-0500 Systolic blood pressure 110 mm[Hg] Willie Kaur [facility] 11-25-2023 09:00-0500 Body height 152.4 cm Antionette LOPEZ Work Phone: [facility] 11-25-2023 09:00-0500 Body mass index (BMI) [Ratio] 33.22 kg/m2 Antionette Yang PA Work Phone: [facility] 11-25-2023 09:00-0500 Body weight 77.17 kg Antionette Yang PA Work Phone: [facility] 11-25-2023 09:00-0500 Diastolic blood pressure 84 mm[Hg] Antionette Yang PA Work Phone: [facility] 11-25-2023 09:00-0500 Systolic blood pressure 120 mm[Hg] Antionette LOPEZ Work Phone: [facility] 11-20-2023 13:11-0500 Diastolic blood pressure 81 mm[Hg] Vicky Castillo [facility] 11-20-2023 13:11-0500 Heart rate 59 /min Vicky Castillo [facility] 11-20-2023 13:11-0500 Mean blood pressure 106 mm[Hg] Vicky Castillo [facility] 11-20-2023 13:11-0500 Respiratory rate 18 /min Vicky Castillo [facility] 11-20-2023 13:11-0500 Systolic blood pressure 156 mm[Hg] Vickyjayden Castillo [facility] 11-17-2023 11:36-0500 Diastolic blood pressure 118 mm[Hg] Landon DOUGLAS [facility] 11-17-2023 11:36-0500 Mean blood pressure 135 mm[Hg] Landon DOUGLAS [facility] 11-17-2023 11:36-0500 Systolic blood pressure 170 mm[Hg] Landon DOUGLAS [facility] 11-17-2023 11:27-0500 Blood Pressure Location Landon DOUGLAS [facility] 11-17-2023 11:27-0500 Diastolic blood pressure 107 mm[Hg] Landon DOUGLAS [facility] 11-17-2023 11:27-0500 Heart rate 68 /min Landon DOUGLAS [facility] 11-17-2023 11:27-0500 SaO2% (BldA) [Mass fraction] 98 % Landon DOUGLAS [facility] 11-17-2023 11:27-0500 Systolic blood pressure 171 mm[Hg] Landon DOUGLAS [facility] 10-26-2023 12:48-0500 Diastolic blood pressure 88 mm[Hg] Vicky Castillo [facility] 10-26-2023 12:48-0500 Heart rate 66 /min Vickyjayden Castillo [facility] 10-26-2023 12:48-0500 Mean blood pressure 106 mm[Hg] Vicky Castillo [facility] 10-26-2023 12:48-0500 Respiratory rate 20 /min Vicky Castillo [facility] 10-26-2023 12:48-0500 Systolic blood pressure 143 mm[Hg] Vicky Castillo [facility] 10-07-2023 09:52-0500 Heart rate 68 /min Claudio Monroe [facility] 10-07-2023 09:52-0500 SaO2% (BldA) [Mass fraction] 100 % Claudio Monroe [facility] 10-07-2023 09:52-0500 Diastolic blood pressure 95 mm[Hg] Claudio Monroe [facility] 10-07-2023 09:52-0500 Mean blood pressure 113 mm[Hg] Snyder Fer [facility] 10-07-2023 09:52-0500 Systolic blood pressure 148 mm[Hg] Snyder Fer [facility] 10-07-2023 09:52-0500 Respiratory rate 16 /min Claudio Monroe [facility] 10-07-2023 09:45-0500 Diastolic blood pressure 94 mm[Hg] Snyder Fer [facility] 10-07-2023 09:45-0500 Heart rate 88 /min Snyder Fer [facility] 10-07-2023 09:45-0500 SaO2% (BldA) [Mass fraction] 100 % Claudio Fer [facility] 10-07-2023 09:45-0500 Systolic blood pressure 178 mm[Hg] Claudio Fer [facility] 10-07-2023 09:03-0500 Heart rate 65 /min Claudio Fer [facility] 10-07-2023 09:03-0500 SaO2% (BldA) [Mass fraction] 98 % Claudio Monroe [facility] 10-07-2023 09:03-0500 Body temperature 97.52 [degF] Claudio Monroe [facility] 10-07-2023 09:03-0500 Diastolic blood pressure 83 mm[Hg] Claudio Monroe [facility] 10-07-2023 09:03-0500 Mean blood pressure 103 mm[Hg] Claudio Monroe [facility] 10-07-2023 09:03-0500 Systolic blood pressure 143 mm[Hg] Claudio Monroe [facility] 10-07-2023 09:03-0500 Respiratory rate 14 /min Claudio Monroe [facility] 09-22-2023 11:23-0500 Diastolic blood pressure 88 mm[Hg] Demarjorge Trammell [facility] 09-22-2023 11:23-0500 Heart rate 60 /min Demar Valeri [facility] 09-22-2023 11:23-0500 Mean blood pressure 105 mm[Hg] Demar Valeri [facility] 09-22-2023 11:23-0500 Respiratory rate 14 /min Demar Valeri [facility] 09-22-2023 11:23-0500 Systolic blood pressure 138 mm[Hg] Demar Valeri [facility] 07-14-2023 09:26-0400 Diastolic blood pressure 78 mm[Hg] Vicky JULYG [facility] 07-14-2023 09:26-0400 Mean blood pressure 101 mm[Hg] Vickyjayden MCDOWELLG [facility] 07-14-2023 09:26-0400 Systolic blood pressure 146 mm[Hg] Vickyjayden LAST [facility] 07-14-2023 09:15-0400 Blood Pressure Location Vickyjayden LAST [facility] 07-14-2023 09:15-0400 Diastolic blood pressure 82 mm[Hg] Vicky LAST [facility] 07-14-2023 09:15-0400 Heart rate 67 /min Vicky LAST [facility] 07-14-2023 09:15-0400 SaO2% (BldA) [Mass fraction] 98 % Vicky LAST [facility] 07-14-2023 09:15-0400 Systolic blood pressure 148 mm[Hg] Vicky LAST [facility] 06-30-2023 15:15-0400 Diastolic blood pressure 97 mm[Hg] Landon DOUGLAS [facility] 06-30-2023 15:15-0400 Mean blood pressure 123 mm[Hg] Landon DOUGLAS [facility] 06-30-2023 15:15-0400 Systolic blood pressure 174 mm[Hg] Landon DOUGLAS [facility] 06-30-2023 15:05-0400 Blood Pressure Location Landon DOUGLAS [facility] 06-30-2023 15:05-0400 Diastolic blood pressure 98 mm[Hg] Landon DOUGLAS [facility] 06-30-2023 15:05-0400 Heart rate 80 /min Landon DOUGLAS [facility] 06-30-2023 15:05-0400 SaO2% (BldA) [Mass fraction] 99 % Landon DOUGLAS [facility] 06-30-2023 15:05-0400 Systolic blood pressure 166 mm[Hg] Landon DOUGLAS [facility] 06-08-2023 08:21-0400 Diastolic blood pressure 94 mm[Hg] Vicky Castillo [facility] 06-08-2023 08:21-0400 Heart rate 62 /min Vicky Castillo [facility] 06-08-2023 08:21-0400 Respiratory rate 16 /min Vicky Castillo [facility] 06-08-2023 08:21-0400 Systolic blood pressure 156 mm[Hg] Vicky Castillo [facility] 06-05-2023 10:45-0400 Diastolic blood pressure 70 mm[Hg] Prasad Avalos [facility] 06-05-2023 10:45-0400 Heart rate 70 /min Prasad Avalos [facility] 06-05-2023 10:45-0400 Mean blood pressure 97 mm[Hg] Prasad Infantee [facility] 06-05-2023 10:45-0400 Respiratory rate 20 /min Prasad Infantee [facility] 06-05-2023 10:45-0400 SaO2% (BldA) [Mass fraction] 96 % Prasad Infantee [facility] 06-05-2023 10:45-0400 Systolic blood pressure 152 mm[Hg] Prasad Infantee [facility] 06-05-2023 09:25-0400 Diastolic blood pressure 70 mm[Hg] Prasad Infantee [facility] 06-05-2023 09:25-0400 Heart rate 71 /min Prasad Infantee [facility] 06-05-2023 09:25-0400 Mean blood pressure 96 mm[Hg] Prasad Infantee [facility] 06-05-2023 09:25-0400 Respiratory rate 17 /min Prasad Avalos [facility] 06-05-2023 09:25-0400 SaO2% (BldA) [Mass fraction] 99 % Prasad Infantee [facility] 06-05-2023 09:25-0400 Systolic blood pressure 147 mm[Hg] Prasad Infantee [facility] 06-05-2023 08:54-0400 gluc 109 mg/dL Prasad Infantee [facility] 06-05-2023 08:54-0400 gluc Prasad Avalos [facility] 06-05-2023 08:47-0400 Body temperature 98.06 [degF] Prasad Avalos [facility] 06-05-2023 08:47-0400 Diastolic blood pressure 106 mm[Hg] Prasad Avalos [facility] 06-05-2023 08:47-0400 Heart rate 81 /min Prasad Avalos [facility] 06-05-2023 08:47-0400 Respiratory rate 20 /min Prasad Avalos [facility] 06-05-2023 08:47-0400 SaO2% (BldA) [Mass fraction] 97 % Prasad Avalos [facility] 06-05-2023 08:47-0400 Systolic blood pressure 173 mm[Hg] Prasad Avalos [facility] 04-28-2023 09:05-0400 Diastolic blood pressure 87 mm[Hg] Vicky LAST [facility] 04-28-2023 09:05-0400 Mean blood pressure 111 mm[Hg] Vickyjayden MCDOWELLVika [facility] 04-28-2023 09:05-0400 Systolic blood pressure 160 mm[Hg] Vickyjayden LAST [facility] 04-28-2023 08:55-0400 Blood Pressure Location Vickyjayden LAST [facility] 04-28-2023 08:55-0400 Diastolic blood pressure 88 mm[Hg] Vickyjayden LAST [facility] 04-28-2023 08:55-0400 Heart rate 66 /min Vicky LAST [facility] 04-28-2023 08:55-0400 SaO2% (BldA) [Mass fraction] 97 % Vicky LAST [facility] 04-28-2023 08:55-0400 Systolic blood pressure 153 mm[Hg] Vickyjayden LAST [facility] 04-20-2023 13:54-0400 Diastolic blood pressure 89 mm[Hg] Demar Valeri [facility] 04-20-2023 13:54-0400 Diastolic blood pressure 84 mm[Hg] Demar Valeri [facility] 04-20-2023 13:54-0400 Heart rate 72 /min Demar Valeri [facility] 04-20-2023 13:54-0400 Heart rate 62 /min Demar Valeri [facility] 04-20-2023 13:54-0400 Mean blood pressure 112 mm[Hg] Demar Valeri [facility] 04-20-2023 13:54-0400 Respiratory rate 14 /min Demar Valeri [facility] 04-20-2023 13:54-0400 Systolic blood pressure 159 mm[Hg] Demar Valeri [facility] 04-20-2023 13:54-0400 Systolic blood pressure 147 mm[Hg] Demar Trammell [facility] 04-03-2023 10:40-0400 Diastolic blood pressure 62 mm[Hg] NILL [facility] 04-03-2023 10:40-0400 Heart rate 69 /min NILL [facility] 04-03-2023 10:40-0400 Respiratory rate 32 /min NILL [facility] 04-03-2023 10:40-0400 SaO2% (BldA) [Mass fraction] 96 % NILL [facility] 04-03-2023 10:40-0400 Systolic blood pressure 100 mm[Hg] NILL [facility] 04-03-2023 10:30-0400 Diastolic blood pressure 56 mm[Hg] NILL [facility] 04-03-2023 10:30-0400 Heart rate 65 /min NILL [facility] 04-03-2023 10:30-0400 Respiratory rate 20 /min NILL [facility] 04-03-2023 10:30-0400 SaO2% (BldA) [Mass fraction] 95 % NILL [facility] 04-03-2023 10:30-0400 Systolic blood pressure 93 mm[Hg] NILL [facility] 04-03-2023 10:25-0400 Diastolic blood pressure 59 mm[Hg] NILL [facility] 04-03-2023 10:25-0400 Heart rate 69 /min NILL [facility] 04-03-2023 10:25-0400 Respiratory rate 17 /min NILL [facility] 04-03-2023 10:25-0400 SaO2% (BldA) [Mass fraction] 94 % NILL [facility] 04-03-2023 10:25-0400 Systolic blood pressure 102 mm[Hg] NILL [facility] 04-03-2023 10:20-0400 Blood Pressure Location NILL [facility] 04-03-2023 10:15-0400 Blood Pressure Location NILL [facility] 04-03-2023 10:15-0400 Body temperature 96.8 [degF] NILL [facility] 04-03-2023 09:47-0400 Respiratory rate 18 /min NILL [facility] 04-03-2023 09:24-0400 Blood Pressure Location NILL [facility] 04-03-2023 09:24-0400 Body temperature 96.8 [degF] NILL [facility] 03-17-2023 11:37-0400 Heart rate 78 /min Demar Trammell [facility] 03-17-2023 11:37-0400 SaO2% (BldA) [Mass fraction] 98 % Demar Trammell [facility] 03-17-2023 11:37-0400 Diastolic blood pressure 63 mm[Hg] Demar Valeri [facility] 03-17-2023 11:37-0400 Mean blood pressure 87 mm[Hg] Demar Valeri [facility] 03-17-2023 11:37-0400 Systolic blood pressure 136 mm[Hg] Demar Valeri [facility] 03-17-2023 11:33-0400 Diastolic blood pressure 114 mm[Hg] Demar Valeri [facility] 03-17-2023 11:33-0400 Heart rate 91 /min Demar Valeri [facility] 03-17-2023 11:33-0400 Respiratory rate 14 /min Demar Valeri [facility] 03-17-2023 11:33-0400 SaO2% (BldA) [Mass fraction] 99 % Demar Valeri [facility] 03-17-2023 11:33-0400 Systolic blood pressure 156 mm[Hg] Demar Valeri [facility] 03-17-2023 10:56-0400 Heart rate 89 /min Demar Valeri [facility] 03-17-2023 10:56-0400 SaO2% (BldA) [Mass fraction] 100 % Demar Valeri [facility] 03-17-2023 10:56-0400 Diastolic blood pressure 87 mm[Hg] Demar Valeri [facility] 03-17-2023 10:56-0400 Mean blood pressure 104 mm[Hg] Demar Valeri [facility] 03-17-2023 10:56-0400 Systolic blood pressure 138 mm[Hg] Demar Valeri [facility] 03-17-2023 10:56-0400 Body temperature 98.06 [degF] Demar Valeri [facility] 03-17-2023 10:56-0400 Respiratory rate 12 /min Demar Valeri [facility] 02-23-2023 12:32-0400 Diastolic blood pressure 97 mm[Hg] Demar Valeri [facility] 02-23-2023 12:32-0400 Heart rate 62 /min Demar Valeri [facility] 02-23-2023 12:32-0400 Mean blood pressure 115 mm[Hg] Demar Valeri [facility] 02-23-2023 12:32-0400 Respiratory rate 12 /min Demar Valeri [facility] 02-23-2023 12:32-0400 Systolic blood pressure 150 mm[Hg] Demar Valeri [facility] 02-20-2023 13:22-0400 Blood Pressure Location Michael ROLANDL [facility] [place] 02-20-2023 13:22-0400 Diastolic blood pressure 84 mm[Hg] NILL [facility] [place] 02-20-2023 13:22-0400 Heart rate 72 /min NILL [facility] [place] 02-20-2023 13:22-0400 Respiratory rate 16 /min NILL [facility] [place] 02-20-2023 13:22-0400 Systolic blood pressure 122 mm[Hg] NILL [facility] [place] 04-29-2022 09:28-0400 Blood Pressure Location Vicky LAST [facility] 04-29-2022 09:28-0400 Diastolic blood pressure 71 mm[Hg] Vicky LAST [facility] 04-29-2022 09:28-0400 Heart rate 73 /min Vicky LAST [facility] 04-29-2022 09:28-0400 Respiratory rate 18 /min Vicky LAST [facility] 04-29-2022 09:28-0400 SaO2% (BldA) [Mass fraction] 99 % Vicky LAST [facility] 04-29-2022 09:28-0400 Systolic blood pressure 106 mm[Hg] Vicky LAST [facility] Encounters Encounter Date Encounter Type Care Provider Facility Start: 11-15-2024 End: 11-16-2024 ambulatory Jose Ramondelonte OLIVIAU Facility:[facility] Start: 11-15-2024 Emergency department patient visit Darshan Hunterleticia Facility:[facility] Start: 10-05-2024 End: 10-05-2024 ambulatory XXXX NONE Facility:[facility] Start: 10-05-2024 End: 10-05-2024 Patient encounter procedure Lokesh Alisha Richar [facility] Start: 09-02-2024 End: 09-02-2024 ambulatory Vick Mcghee MD Work Phone: [facility] Work Phone: Start: 09-02-2024 End: 09-02-2024 Departed Referred Vick Mcghee MD Work Phone: [facility] Start: 08-19-2024 End: 08-19-2024 ambulatory SAM KAISER Facility:[facility] Start: 08-19-2024 End: 08-19-2024 Patient encounter procedure SAM KAISER [facility] Start: 08-11-2024 End: 08-11-2024 Bamboo flowsheet Sydnie Villalobos DPM Work Phone: [facility] Start: 08-11-2024 End: 08-11-2024 Bamboo flowsheet Sydnie Villalobos DPM Work Phone: [facility] Start: 08-11-2024 End: 08-11-2024 Office outpatient visit 15 minutes Sydnie Villalobos DPM Work Phone: [facility] Comment on above: Pes valgus, acquired , right (Primary Dx); Pes valgus, acquired, left; Gastrocnemius equinus of right lower extremity; Gastrocnemius equinus of left lower extremity; Pain in both feet; Cramping of feet; Bilateral leg cramps; 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 Start: 08-11-2024 End: 08-11-2024 ambulatory SYDNIE VILLALOBOS Not Available Start: 08-11-2024 ambulatory [facility] Start: 07-13-2024 End: 07-13-2024 ambulatory Willie Kaur Facility:[facility] Start: 07-13-2024 End: 07-13-2024 Patient encounter procedure Willie Kaur [facility] Start: 07-06-2024 End: 07-06-2024 ambulatory Claudio Monroe Facility:[facility] Start: 07-06-2024 End: 07-06-2024 Patient encounter procedure Claudio Monroe [facility] Start: 07-06-2024 End: 07-06-2024 ambulatory Vick Mcghee Facility:[facility] Start: 07-06-2024 End: 07-06-2024 Patient encounter procedure Claudio Monroe [facility] Start: 05-08-2024 End: 05-08-2024 Emergency department patient visit Nelson Solares [facility] Start: 03-03-2024 End: 03-03-2024 ambulatory SYDNIE Bronson VILLALOBOS Not Available Start: 12-18-2023 End: 12-18-2023 ambulatory Willie Kaur Facility:[facility] Start: 12-18-2023 End: 12-18-2023 Patient encounter procedure Willie Kaur [facility] Start: 12-02-2023 Clinisync Result Encounter Antionette OLPEZ Work Phone: [facility] Unsolicited Start: [...] Start: 11-20-2023 End: 11-20-2023 ambulatory FRANCO Castillo Facility:[facility] Start: 11-20-2023 End: 11-20-2023 Pain Management Vicky Castillo [facility] Start: 11-17-2023 End: 11-17-2023 ambulatory Landon Arlen DOUGLAS Facility:[facility] Start: 11-17-2023 End: 11-17-2023 Patient encounter procedure Landon DOUGLAS [facility] Start: 10-26-2023 End: 10-26-2023 Patient encounter procedure Vicky Castillo [facility] Start: 10-26-2023 End: 10-26-2023 ambulatory Vicky Castillo Facility:[facility] Start: 10-26-2023 End: 10-26-2023 Pain Management Vicky Castillo [facility] Start: 10-07-2023 End: 10-07-2023 ambulatory Claudio Monroe Facility:[facility] Start: 10-07-2023 End: 10-07-2023 Pain Management Claudio Monroe [facility] Start: 09-22-2023 End: 09-22-2023 ambulatory Demar Trammell Facility:[facility] Start: 09-22-2023 End: 09-22-2023 Pain Management Demar Trammell [facility] Start: 09-15-2023 End: 09-15-2023 ambulatory SYDNIE VILLALOBOS Not Available Start: 08-06-2023 End: 08-06-2023 ambulatory Barry Husain Facility:[facility] Start: 08-06-2023 End: 08-06-2023 Patient encounter procedure Barry Husain [facility] Start: 07-23-2023 End: 07-23-2023 ambulatory Barry Husain Facility:[facility] Start: 07-14-2023 End: 07-14-2023 Hypertension screening status Vicky LAST [facility] Start: 07-14-2023 End: 07-14-2023 Patient encounter procedure Vicky LAST [facility] Start: 06-30-2023 End: 06-30-2023 Patient encounter procedure Landon DOUGLAS [facility] Start: 06-08-2023 End: 06-08-2023 Pain Management Vicky Castillo [facility] Start: 06-05-2023 End: 06-05-2023 Emergency department patient visit Prasad Avalos [facility] Start: 05-04-2023 End: 05-04-2023 Pain Management Vicky Castillo [facility] Start: 04-28-2023 End: 04-28-2023 Patient encounter procedure Vicky Yost SHALA [facility] Start: 04-20-2023 End: 04-20-2023 Pain Management Demar Trammell [facility] Start: 04-15-2023 End: 04-15-2023 Patient encounter procedure R NILL [facility] Nill/[facility] Start: 04-03-2023 End: 04-03-2023 Patient encounter procedure R NILL [facility] Start: 03-17-2023 End: 03-17-2023 Pain Management Demar Trammell [facility] Start: 03-03-2023 End: 03-04-[address] VICK MCGHEE . Facility:[facility] Start: 02-23-2023 End: 02-23-2023 Pain Management Demar Trammell [facility] Start: 02-20-2023 End: 02-20-2023 Patient encounter procedure Michael ROLANDL General Surgery Nill[facility] Start: 02-09-2023 End: 02-10-[address] VICK MCGHEE . Facility:[facility] Start: 11-05-2022 End: 11-05-[address] VICK MCGHEE . Facility:[facility] Start: 10-27-2022 End: 10-27-2022 Patient encounter procedure Vicky Yost JULYVika [facility] Start: 10-22-2022 End: 10-23-[address] JUAN CARLOS NARVAEZ . Facility:[facility] Start: 09-24-2022 End: 09-24-[address] JUAN CARLOS NARVAEZ . Facility:[facility] Start: 04-29-2022 End: 04-29-2022 Patient encounter procedure Vicky LAST [facility] Start: 12-05-2017 End: 04-15-2018 Ambulatory Adryan Yoon Facility:[facility] Procedures Date Procedure Procedure Detail Performing Clinician Start: 08-19-2024 CT myelogram of lumbar region SAM Esparza Start: 12-02-2023 ALL THYROXINE (T4) FREE Antionette LOPEZ Work Phone: Start: 11-30-2023 ALL LIPID PROFILE (FASTING) Antionette LOPEZ Work Phone: Start: 11-30-2023 ALL THYROID STIM HORMONE Antionette LOPEZ Work Phone: Start: 11-30-2023 [facility] CMP (CMP) (FOR REMOTE [facility] USE) Antionette LOPEZ Work Phone: Start: 11-30-2023 [...] Screening for malign ant neoplasm of colon [facility] Start: 11-30-2024 Screening for malign ant neoplasm of breast Mammogram [facility] Start: 11-28-2024 End: 11-28-2024 Patient encounter procedure 11/28/2024 9:00 AM EST Office Visit [facility] [address] [place] [address] Antionette Yang PA [address] [place], [place] [id number] [facility] Start: 08-11-2024 End: 08-11-2024 Patient encounter procedure 08/11/2024 11:00 AM EDT Office Visit [facility] [address] [place] [id number] Sydnie Villalobos, DPSergei [address] [place] [id number] Arrived [facility] Comment on above: Arrived Start: 06-19-2024 Influenza vaccination Influenza Vacc ine (#1) [facility] Start: 11-25-2023 End: 11-25-2024 Lipid 1996 panel - Serum or Plasma Lipid panel Lab Routine Well woman exam with routine gynecological exam Well woman exam Expected: 11/25/2023 (Approximate), Expires: 11/25/2024 [facility] Comment on above: Expected: 11/25/2023 (Approximate), Expires: 11/25/2024 Start: 11-25-2023 End: 01-23-2025 MG Breast - bilateral Screening Bilateral screening mammogram Imaging Routine Breast cancer screening by mammogram Expected: 11/25/2023, Expires: 01/23/2025 [facility] Work Phone: Comment on above: Expected: 11/25/2023 , Expires: 01/23/2025 Start: 10-22-2023 Screening for malign ant neoplasm of breast Mammogram [facility] Start: 06-19-2023 Influenza vaccination Influenza Vacc ine (#1) [facility] Start: 2022 Pneumococcal Vaccine : 65+ Years (1 - PCV) Pneumococcal Vaccine: 65+ Years (1 - PCV) [facility] Start: 2022 Pneumococcal Vaccine : 65+ Years (1 of 1 - PCV) Pneumococcal Vaccine: 65+ Years (1 of 1 - PCV) [facility] Start: 1955 Screening for malign ant neoplasm of colon [facility] CBC W Auto Different ial panel - Blood CBC and differential Lab Routine Well woman exam with routine gynecological exam Well woman exam Ordered: 11/25/2023 [facility] Comment on above: Ordered: 11/25/2023 Comprehensive metabo lic 2000 panel - Serum or Plasma Comprehensive metabolic panel Lab Routine Well woman exam with routine gynecological exam Well woman exam Ordered: 11/25/2023 [facility] Comment on above: Ordered: 11/25/2023 Hemoglobin A1c measurement Hemoglobin A1c Lab Routine Well woman exam with routine gynecological exam Well woman exam Ordered: 11/25/2023 [facility] Comment on above: Ordered: 11/25/2023 THIN PREP TIS PAP AN D HR HPV DNA THIN PREP TIS PAP AND HR HPV DNA Pathology and Cytology Routine Well woman exam with routine gynecological exam Ordered: 11/25/2023 [facility] Comment on above: Ordered: 11/25/2023 Thyrotropin [Units/volume] in Serum or Plasma TSH Lab Routine Well woman exam with routine gynecological exam Well woman exam Ordered: 11/25/2023 [facility] Comment on above: Ordered: 11/25/2023 Immunizations Immunization Date Immunization Notes Care Provider Geovanna sommer 07-23-2021 SARS-CoV-2 (COVID-19 ) mRNA BNT-162b2 vax NILL [facility] 07-02-2021 SARS-CoV-2 (COVID-19 ) mRNA BNT-162b2 vax NILL [facility] [place] 02-22-2021 zoster vaccine recombinant Antionette Yang PA Work Phone: [facility] 11-12-2020 zoster vaccine recombinant Antionette Trey PA Work Phone: [facility] NEGATED: Highlighted row has not occurred!12-25-2021 influenza virus vaccine, unspecified formulation Vicky LAST [facility] NEGATED: Highlighted row has not occurred!10-16-2021 influenza virus vaccine, unspecified formulation Vickyjayden LAST [facility] Payers Date Payer Category Payer Self-pay 2022 Private Health Insurance [employer] [place] [id number] 2022 Unknown [employer] AAR [id number] 2022-Present [address] [place] [address] [id number]. [id number] 2022 Medicare [id number] [id number]. [id number] 2017 Unknown [id number] 1959 Medicare [id number] 1959 Unknown [id number] 1957 Unknown [id number] 2.16.840.1.023840.3.579.2. 593 1957 Unknown [id number] 2.16.840.1.375701.3.579.2. 59 1957 Unknown [id number] 2.16.840.1.517641.3.579.2. 593 1957 Unknown [id number] 2.16.840.1.628508.3.579.2. 59 1957 Unknown [id number] 2.16.840.1.083428.3.579.2. 593 1957 Unknown [id number] 2.16.840.1.101986.3.579.2. 727 1957 Unknown [id number] 2.16.840.1.145180.3.579.2. 727 1957 Unknown [id number] 2.16.840.1.320823.3.579.2. 727 1957 Unknown [id number] 2.16.840.1.156339.3.579.2. 727 1957 Unknown [id number] 2.16.840.1.081142.3.579.2. 727 1957 Unknown [id number] 2.16.840.1.422198.3.579.2. 727 1957 Unknown [id number] 2.16.840.1.017398.3.579.2. 727 1957 Unknown [id number] 2.16.840.1.037087.3.579.2. 727 1957 Unknown [id number] 2.16.840.1.309211.3.579.2. 727 1957 Unknown [id number] 2.16.840.1.777418.3.579.2. 72 1957 Unknown [id number] 2.16.840.1.429007.3.579.2. 72 1957 Unknown [id number] 2.16.840.1.314918.3.579.2. 72 1957 Unknown [id number] 2.16.840.1.583853.3.579.2. 1286 1957 Unknown [id number] 2.16.840.1.690377.3.579.2. 1259 1957 Unknown [id number] 2.16.840.1.992576.3.579.2. 1259 1957 Unknown [id number] 2.16.840.1.208329.3.579.2. 1259 1957 Unknown [id number] 2.16.840.1.405510.3.579.2. 1259 1957 Unknown [id number] 2.16.840.1.790598.3.579.2 1957 Unknown [id number] 2.16.840.1.141386.3.579.2. 72 1957 Unknown [id number] 2.16.840.1.364701.3.579.2. 1957 Unknown [id number] 2.16.840.1.927043.3.579.2. 72 1957 Unknown [id number] 2.16.840.1.014167.3.579.2. 72 1957 Unknown [id number] 2.16.840.1.224529.3.579.2. 72 1957 Unknown [id number] 2.16.840.1.549656.3.579.2 72 1957 Unknown [id number] 2.16.840.1.812785.3.579.2. 727 1957 Unknown [id number] 2.16.840.1.218877.3.579.2. 727 Medicaid [id number] Unknown MMO [id number] Unknown [place] [id number] Unknown [id number] 2.16.840.1.061990.3.579.2. 531 Social History Date Type Detail Facility Start: 12-25-2021 End: 10-05-2024 Tobacco smoking status Never smoked tobacco (finding) [facility] Comment on above: Denies. Start: 11-24-2023 End: 08-11-2024 Sex Assigned At Female [facility] Tobacco smoking status Never [facility] [place] Comment on above: Denies. Tobacco [facility] Comment on above: denies Tobacco smoking status No Smokin g Status Entered [facility] Start: 05-20-2023 Tobacco use and exposure [...] file [facility] Tobacco smoking stat [facility] Unknown if ever smoked [facility] Work Phone: Start: 09-03-2024 Sex Female (finding) [facility] Start: 1955 Sex Assigned At Female [facility] Functional Status Date Assessment Result Facility 10-05-2024 Functional Status N/A [facility] 08-19-2024 Functional Status N/A [facility] 07-13-2024 Functional Status N/A [facility] 07-06-2024 Functional Status N/A [facility] 05-08-2024 Functional Status N/A [facility] 12-18-2023 Functional Status No [facility] 11-20-2023 Functional Status N/A [facility] 11-17-2023 Functional Status No [facility] 10-26-2023 Functional Status N/A [facility] 10-07-2023 Functional Status N/A [facility] 09-22-2023 Functional Status N/A [facility] 07-14-2023 Functional Status No [facility] 06-30-2023 Functional Status No [facility] 06-08-2023 Functional Status N/A [facility] 06-05-2023 Functional Status N/A [facility] 05-04-2023 Functional Status N/A [facility] 04-28-2023 Functional Status No [facility] 04-20-2023 Functional Status N/A [facility] 04-03-2023 Functional Status N/A [facility] 03-17-2023 Functional Status N/A [facility] 02-23-2023 Functional Status N/A [facility] 02-20-2023 Functional Status N/A [facility] Eloina Thao 04-29-2022 Functional Status N/A [facility] Clinical Notes 10-08-2021 to 11-23-2024 Sydnie Villalobos DPM - 08/11/2024 11:00 AM EDT Note Date & Type Note Facility 11-23-2024 Note Discharge Summary Admission and Discharge Information Admitting Physician - Paster DO, Jayden J. Consulting Physician - [facility] Cardio, XXXX Bryant CANTRELL, Baldomero Admitting Diagnoses: Discharge Diagnoses 1. Chest pain, 11/15/2024 2. Non-cardiac chest pain, 11/15/2024 3. HTN (hypertension), 11/15/2024 4. Chronic GERD, 11/15/2024 Chest pain, 11/15/[address] myelogram of lumbar region (08/19/2024), Injection of nerve root of lumbar spine [...] with fragmentation and removal of kidney stone. Hospital Course 69-year-old female with past medical history of hypertension, GERD, dysphagia, presented to ER on 11/15 due to complaints of chest pain. Patient states chest pain started around 8 AM the day of admission. Patient describes chest pain as sharp. Patient stated chest pain was on left side under left breast. Patient states pain is worse with deep breath. Patient had some numbness of left arm. Patient denies any nausea vomiting diarrhea, fever chills, headache, palpitations or other symptoms at this time. Per patient she had stress test 2 years ago but was unaware of results. Patient was followed by Dr. Douglas in the past. In ED EKG showed normal sinus rhythm with occasional supraventricular premature complexes. CBC benign. BMP benign. Troponins were 4.5 and 4.8. Chest x-ray negative for acute findings. Patient was given aspirin and nitroglycerin in ED. Pt was admitted and observed and did not have anymore chest pain and cardio recd for outpatient stress which patient agress and accepts. Patient stable at discharge. Echo shows normal EF 55 to 60%. No obvious regional wall motion abnormalities. Mild AR. Trace TR. No pericardial effusion. Medication changes Decrease metoprolol from 100 mg to 50 mg daily Follow-up appointments Cardiology 1 to 2 weeks PCP as needed Outpatient stress test within 1 to 2 weeks Discharge time 35 minutes which included extensive conversation with patient as well as family about diagnosis and treatment plan. Along with communication with consultants, nursing, case management. Services Consulted - Completed -- 11/15/24 17:47:04 EST Physical Exam General: Looks well, no acute distress, well-nourished, well-kept Skin: Warm, dry Head: No trauma, normocephalic Neck: Trachea midline, supple, negative for JVD Eye: Conjunctive are clear, clear sclera , EOMI ENMT: oral mucosa moist, no lesions or edema nose or external ears Cardiovascular: Regular rate and rhythm, S1-S2 present, negative for murmurs rubs or gallops Respiratory: Lungs clear to auscultation, bilateral symmetric movement, negative for wheezes rales or rhonchi Chest wall: no deformity. Gastrointestinal: Abdomen soft, bowel sounds present, nontender to palpation Back: No tenderness Extremities: Range of motion intact, no edema Neurological: awake, alert, speech normal, cranial nerves II through XII intact, no sensory defects, alert and oriented x3 Psychiatric: cooperative, affect appropriate for age, pleasant Tests Performed Echo Transthoracic Complete XR Chest Single View Discharge Plan Discharge Disposition Discharge To, Anticipated II - Home with responsible caregiver Discharged to - Home with family care Discharge Medication List Prescriptions Adult Blood Pressure Monitor with Large Bicep Cuff, See Instructions cloNIDine 0.1 mg tab, 0.1 mg= 1 tab(s), Oral, BID, 5 refills, Still taking, not as prescribed: pateint states she has only been taking once daily at bedtime because the bottle only says once per day this appears to be correct according to the external fill history. losartan 100 mg Tab, 100 mg= 1 tab(s), Oral, Bedtime, 3 refills metoprolol succinate 50 mg ER Tab, 50 mg= 1 tab(s), Oral, Daily Protonix 40 mg Tab-DR, 40 mg= 1 tab(s), Oral, BID Vistaril 25 mg Cap, 25 mg= 1 cap(s), Oral, QID, PRN Home Aleve 220 mg oral capsule, 440 mg= 2 cap(s), Oral, q8hr, PRN Follow-up With When Contact Information Baldomero Hurtado MD, STAN Within 1 to 2 weeks Additional Instructions: Call for followup appointment Patient Education Chest Wall Pain, [id number] [facility] Comment on above: Result Comment: Elec tronically Signed By: Jayden Santos DO\.br\Date and Time Signed: 11/23/24 08:55 EST 11-16-2024 Note Echocardiology Procedure Exam Date/Time Accession # [id number] Echo Transthoracic 11/16/2024 10:20 EST [id number] Jayden Santos DO Complete CPT code [id number] Reason for Exam (Echo Transthoracic Complete) Chest pain Report [facility] [address] [place] [address] Adult Echocardiogram Report Name: ANYCHLOE Study Date: 11/16/2024 09:40 AM BP: 124/67 mmHg Patient Location: [id number] [facility] Bed(s) [facility] : 1955 Gender: Female Height: 60 in Age: 69 yrs Ethnicity: T Weight: 165 lb Reason For Study: Chest pain BSA: 1.7 m2 History: HTN Ordering Physician: Jesica^Jazzy Performed By: Loni Le, CHIKIS, RVT Interpretation Summary The left ventricle is grossly normal. Ejection Fraction = 55-60%. No obvious regional wall motion abnormalities noted Normal diastolic function. Mild aortic regurgitation. There is trace tricuspid regurgitation. Trace pulmonic valvular regurgitation. There is no pericardial effusion. Procedure A complete two-dimensional transthoracic echocardiogram was performed (2D, M-mode, spectral and color flow Doppler). Left Ventricle The left ventricle is grossly normal. The left ventricular ejection fraction is normal. Ejection Fraction = 55-60%. No obvious regional wall motion abnormalities noted. Normal diastolic function. Left Atrium Echocardiology Report The left atrium is grossly normal. Right Atrium The right atrium is grossly normal. Right Ventricle The right ventricular systolic function is normal. The right ventricle is normal size. Aortic Valve There is trivial aortic valve thickening. Mild aortic regurgitation. There is no aortic stenosis. Mitral Valve The mitral valve is grossly normal. There is no mitral regurgitation noted. No mitral valve stenosis. Tricuspid Valve There is trace tricuspid regurgitation. Right ventricular systolic pressure is 28 mmHg. No evidence of tricuspid stenosis. Pulmonic Valve Trace pulmonic valvular regurgitation. No evidence of stenosis. Arteries The aortic root is normal in size. Venous The inferior vena cava is normal in size, and collapses normally with respiration. Effusion There is no pericardial effusion. MMode/2D Measurements & Calculations RVDd: 3.4 cm LVIDd: 4.4 cm FS: 29.1 % Ao root diam: 3.0 cm IVSd: 0.94 cm LVIDs: 3.1 cm EDV(Teich): 88.6 ml LVPWd: 1.00 cm ESV(Teich): 38.9 ml Ao root area: 6.9 cm2 EF(Teich): 56.1 % LA dimension: 3.5 cm asc Aorta Diam: 3.0 cm LVOT diam: 1.9 cm LVLd ap4: 7.4 cm EDV(MOD-sp2): 70.0 ml LVOT area: 2.9 cm2 EDV(MOD-sp4): 80.9 ml ESV(MOD-sp2): 28.3 ml LVLs ap4: 6.3 cm EF(MOD-sp2): 59.6 % ESV(MOD-sp4): 32.7 ml EF(MOD-sp4): 59.6 % SV(MOD-sp4): 48.2 ml TAPSE: 2.0 cm IVC Diam: 1.4 cm RV Base_phl: 2.6 cm RV Length_phl: 5.8 cm RV Mid_phl: 2.5 cm RVIDd/LVIDd: 0.77 EF (MOD-bp): 60.9 % LA Vol Index: 31.7 ml/m2 Echocardiology Report Doppler Measurements & Calculations MV E max latasha: 70.3 cm/sec MV dec time: 0.28 sec Ao V2 max: 167.0 cm/sec AI max latasha: 371.5 cm/sec MV A max latasha: 50.1 cm/sec Ao max P.2 mmHg AI max P.4 mmHg MV E/A: 1.4 Ao V2 mean: 112.0 cm/sec Lat Peak E' Latasha: 9.0 cm/sec Ao mean P.0 mmHg AI dec slope: 155.9 cm/sec2 E/E' Lat: 7.8 Ao V2 VTI: 43.5 cm AI P1/2t: 698.0 msec Med Peak E' Latasha: 6.0 cm/sec E/E' Med: 11.7 WILLIAM(I,D): 1.8 cm2 WILLIAM(V,D): 1.9 cm2 LV V1 max P.8 mmHg SV(LVOT): 76.5 ml TR max latasha: 251.1 cm/sec RAP systole: 3.0 mmHg LV V1 mean P.0 mmHg TR max P.2 mmHg LV V1 max: 110.0 cm/sec RVSP(TR): 28.2 mmHg LV V1 mean: 65.6 cm/sec LV V1 VTI: 26.3 cm AV P1/2t-pr: 703.0 msec AV VR: 0.66 WILLIAM(VTI)/BSA_phl: 1.0 FINAL REPORT Dictated: 11/16/2024 9:40 am Baldomero Hurtado MD Signed (Electronic Signature): 11/16/2024 5:52 pm Signed by: Baldomero Hurtado MD Transcribed by: Technologist: [facility] 11-16-2024 Note Consultation Note Chief Complaint chest pain History of Present Illness Reason for consult-chest pain History of presenting illness-Chloe is a pleasant 69-year-old lady who presented to ER with complaints of chest pain. She describes 2 different type of chest pains. She reports she has been having pain over the left chest wall which is made worse with deep inspiration for last 2 to 3 days. Does not report any associated nausea or sweating, palpitation dizziness or shortness of breath. In addition notes episodes of upper midsternal heaviness which resolves spontaneously -she thinks she has been having these episodes for at least last 6 to 12 months-and also notes these episodes happen when she is 'under stressful situations'. Does not report any significant exertional dyspnea or chest pain symptoms. No history to suggest orthopnea or PND. Patient reports having a heart cath done in 2020-as per patient this was told to have no significant disease. During this visit twelve-lead EKG done reviewed-sinus rhythm with minimal nonspecific ST-T changes troponin x 4 negative. Physical Exam Vitals & Measurements T: 36.6 ???C(Axillary) TMIN: 36.4 ???C(Oral) TMAX: 36.6 ???C(Axillary) HR: 47(Monitored) RR: 17 BP: 101/66 SpO2: 96% HT: 152.4 cm WT: 75 kg HEENT- no pallor,no icterus, no cyanosis Neck- no JVD, no bruit Chest- bilateral clear breath sounds, no rhonchi or crackles CVS- S1S2 normal, no rub or murmur Extremities- no ankle edema Neuro- alert, oriented x 3 Assessment/Plan 1. Chest pain (R07.9: Chest pain, unspecified) Recommend echocardiogram to rule out any evidence of structural heart disease Recommend SPECT MPI to rule out any significant underlying ischemia Continue home dose of metoprolol 100 mg twice daily (if ventricular rates less than 60/min-okay to reduce dose to 50 mg twice daily) 2. Non-cardiac chest pain (R07.89: Other chest pain) 3. HTN (hypertension) (I10: Essential (primary) hypertension) 4. Chronic GERD (K21.9: Gastro-esophageal reflux disease without esophagitis) Problem List/Past Medical History Ongoing BMI 34.0-34.9,adult Chest pain due to GERD Chronic GERD Duodenogastric bile reflux Dysphagia Epigastric pain Gastritis H/O: osteoarthritis Hiatal hernia with gastroesophageal reflux HTN (hypertension) Osteoporosis Regurgitation of stomach contents Screening for malignant neoplasm of colon Sigmoid diverticulosis Tendonitis Unilateral primary osteoarthritis, right knee Vertigo Historical Appendicitis Cough GERD - Gastro-esophageal reflux disease Sinus drainage Procedure/Surgical History CT myelogram of lumbar region (08/19/2024), Injection of nerve root of lumbar spine [...] fragmentation and removal of kidney stone. Medications Inpatient acetaminophen 325 mg Tab, 650 mg= 2 tab(s), Oral, q6hr, PRN benzocaine-menthol topical 6 mg-10 mg Loze, 1 lozenge(s), Oral, q2hr, PRN cloNIDine 0.1 mg tab, 0.1 mg= 1 tab(s), Oral, BID Dilaudid 1 mg/mL injectable solution, 0.5 mg= 0.5 mL, IV Push, q4hr, PRN enoxaparin 40 mg/0.4 mL SC Radha, 40 mg= 0.4 mL, SubCutaneous, Daily hydrALAZINE 20 mg/mL Inj, 10 mg= 0.5 mL, IV Push, q6hr, PRN hydrOXYzine hydrochloride 25 mg Tab, 25 mg= 1 tab(s), Oral, QID, PRN losartan 50 mg Tab, 100 mg= 2 tab(s), Oral, Bedtime melatonin 3 mg Tab, 9 mg= 3 tab(s), Oral, Bedtime, PRN metoprolol succinate 50 mg ER Tab, 100 mg= 2 tab(s), Oral, Daily Protonix 40 mg Tab-DR, 40 mg= 1 tab(s), Oral, BID Senokot 8.6 mg Tab, 17.2 mg= 2 tab(s), Oral, BID, PRN Tessalon 100 mg Cap, 100 mg= 1 cap(s), Oral, TID, PRN Zofran 4 mg/2 mL Injection, 4 mg= 2 mL, IV Push, q6hr, PRN Home Adult Blood Pressure Monitor with Large Bicep Cuff, See Instructions Alistair 220 mg oral capsule, 440 mg= 2 cap(s), Oral, q8hr, PRN cloNIDine 0.1 mg tab, 0.1 mg= 1 tab(s), Oral, BID, 5 refills, Still taking, not as prescribed: pateint states she has only been taking once daily at bedtime because the bottle only says once per day this appears to be correct according to the external fill history. losartan 100 mg Tab, 100 mg= 1 tab(s), Oral, Bedtime, 3 refills metoprolol succinate 50 mg ER Tab, 100 mg= 2 tab(s), Oral, Daily, 3 refills Protonix 40 mg Tab-DR, 40 mg= 1 tab(s), Oral, BID Allergies DULoxetine (Vomiting) baclofen (Hand pain, Hot flashes, Weakness of bilateral upper extremities, Weakness of bilateral lower e (more content not included)... [facility] Comment on above: Result Comment: Elec tronically Signed By: Bryant CANTRELL, Baldomero\.br\Date and Time Signed: 11/16/24 14:02 EST 11-15-2024 Note History and Physical Chief Complaint Pt presents to ED with complaints of chest pain radiating into left chest onset days ago. hx of simular episode. History of Present Illness 69-year-old female with past medical history of hypertension, GERD, dysphagia, presented to ER on 11/15 due to complaints of chest pain. Patient states chest pain started around 8 AM the day of admission. Patient describes chest pain as sharp. Patient stated chest pain was on left side under left breast. Patient states pain is worse with deep breath. Patient had some numbness of left arm. Patient denies any nausea vomiting diarrhea, fever chills, headache, palpitations or other symptoms at this time. Per patient she had stress test 2 years ago but was unaware of results. Patient was followed by Dr. Douglas in the past. In ED EKG showed normal sinus rhythm with occasional supraventricular premature complexes. CBC benign. BMP benign. Troponins were 4.5 and 4.8. Chest x-ray negative for acute findings. Patient was given aspirin and nitroglycerin in ED. Discussed CODE STATUS with patient who would like to be full code. Echo 10/27/2022 showed EF 55 to 60%. Left ventricular wall motion normal. Grade 1 diastolic dysfunction. Trace aortic regurg. Trace MR. Trace TR. RVSP 35 mmHg. Patient had Holter monitor in 2020 showing 84,000 beats of PVC, 3600 beats of bigeminy, 19,000 beats of trigeminy. 896 runs of NSVT longest episode of 8 beats. 6 episodes associated with VE/VT. LHC 09/17/2021 showed normal left main, LAD normal, diagonal normal, LCx normal, obtuse branches normal, RCA small but normal, PDA small but normal Review of Systems Scoring May Fall Risk Score: 15 (11/15/24) Physical Exam Vitals & Measurements T: 36.5 ???C(Oral) HR: 49(Monitored) RR: 17 BP: 133/78 SpO2: 100% HT: 152 cm WT: 78.5 kg General: Looks well, no acute distress, well-nourished, well-kept Skin: Warm, dry Head: No trauma, normocephalic Neck: Trachea midline, supple, negative for JVD Eye: Conjunctive are clear, clear sclera , EOMI ENMT: oral mucosa moist, no lesions or edema nose or external ears Cardiovascular: Regular rate and rhythm, S1-S2 present, negative for murmurs rubs or gallops Respiratory: Lungs clear to auscultation, bilateral symmetric movement, negative for wheezes rales or rhonchi Chest wall: no deformity. Gastrointestinal: Abdomen soft, bowel sounds present, nontender to palpation Back: No tenderness Extremities: Range of motion intact, no edema Neurological: awake, alert, speech normal, cranial nerves II through XII intact, no sensory defects, alert and oriented x3 Psychiatric: cooperative, affect appropriate for age, pleasant Lab Results WBC: 9 E9/L (11/15/24 13:41:00) RBC: 4.2 E12/L Low (11/15/24 13:41:00) HGB: 13.2 gm/dL (11/15/24 13:41:00) Hct: 38.3 % (11/15/24 13:41:00) MCV: 91.1 fL (11/15/24 13:41:00) MCH: 31.3 pg (11/15/24 13:41:00) MCHC: 34.3 gm/dL (11/15/24 13:41:00) RDW: 12.5 % (11/15/24 13:41:00) Platelet: 259 E9/L (11/15/24 13:41:00) MPV: 7.6 fL (11/15/24 13:41:00) Neutro Auto: 75.8 % High (11/15/24 13:41:00) Lymph Auto: 14.1 % (11/15/24 13:41:00) Cedar Auto: 8 % (11/15/24 13:41:00) Eos Auto: 1.2 % (11/15/24 13:41:00) Basophil Auto: 0.9 % (11/15/24 13:41:00) Neutro Absolute: 6.8 E9/L (11/15/24 13:41:00) Lymph Absolute: 1.3 E9/L (11/15/24 13:41:00) Cedar Absolute: 0.7 E9/L (11/15/24 13:41:00) Eos Absolute: 0.1 E9/L (11/15/24 13:41:00) Basophil Absolute: 0.1 E9/L (11/15/24 13:41:00) PT: 11 second(s) (11/15/24 13:41:00) INR: 0.98 (11/15/24 13:41:00) PTT: 30.1 second(s) (11/15/24 13:41:00) D-Dimer: 393 ng/mL FEU (11/15/24 13:41:00) Glucose Lvl: 101 mg/dL (11/15/24 13:41:00) BUN: 27 mg/dL High (11/15/24 13:41:00) Creatinine: 1 mg/dL (11/15/24 13:41:00) eGFR: 62 mL/min/1.73 m2 (11/15/24 13:41:00) BUN/Creat Ratio: 27 High (11/15/24 13:41:00) Sodium Lvl: 139 mmol/L (11/15/24 13:41:00) Potassium Lvl: 3.7 mmol/L (11/15/24 13:41:00) Chloride: 105 mmol/L (11/15/24 13:41:00) CO2: 26 mmol/L (11/15/24 13:41:00) AGAP: 12 mEq/L (11/15/24 13:41:00) Calcium Lvl: 9.4 mg/dL (11/15/24 13:41:00) Lipase Lvl: 43 unit/L (11/15/24 13:41:00) Magnesium: 2 mg/dL (11/15/24 13:41:00) Troponin HS: 5.2 pg/mL Low (11/15/24 16:03:00) Assessment/Plan Patient will be admitted under observation status due to estimated length of stay less than 2 midnights. All images, labs, EKGs reviewed DVT PPx???PAS bilaterally, heparin Diet???cardiac CODE STATUS???full code 1. Chest pain (R07.9: Chest pain, unspecified) Telemetry Check echo Consult cardio Continue to trend troponin 2. Non-cardiac chest pain (R07.89: Other chest pain) rule out ACS tx as above try GI cocktail 3. HTN (hypertension) (I10: Essential (primary) hypertension) Monitor Metoprolol Norvasc Clonidine 4. Chronic GERD (K21.9: Gastro-esophageal reflux disease without esophagitis) PPI Orders: Consult to Cardiology Problem List/Past Medical History (more content not included)... [facility] Comment on above: Result Comment: Elec tronically Signed By: Jayden Santos DO\.br\Date and Time Signed: 11/15/24 16:53 EST 08-11-2024 History of Present illness Narrative Images [...] really increased starting in November or early March of 2024. She relates that the hallux can hyperextend with the cramping and the cramping can be in her lower leg all the way up to her thigh. It is intermittently, but happens daily. It is uncomfortable and becoming more bothersome. 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 She understands her water pill may be causing some of the cramping, but she was told she has to stay on it. She is trying to lose weight to improve her BP/HTN and her foot pain. She has tried gabapentin and Requip without improvement. She wears [employer] tennis shoes. She does not currently wear [...] Villalobos KNEE SURGERY Bilateral Left: 2005; Right: 2016 [place] LAPAROSCOPIC APPEN[place]CTOMY 12/04/2017 [place] REMOVAL OF [...] Sydnie Villalobos DPM documented in this encounter [facility] 09-18-2024 Note Consultation Note Patient is presenting with [...] with any questions or concerns that arise. [facility] Comment on above: Result Comment: Elec tronically [...] Date:08/08/2024 08:15:00 AM Scheduled Provider:Claudio Monroe DO Location:[facility] Appointment Type:Pain Management - Follow Up (FT) [facility] 07-21-2024 Evaluation + Plan noteExtracted from: [...] Future Appointments Appointment Date:07/13/2024 01:45:00 PM Scheduled Provider:Willie Kaur MD Location[facility] Appointment Type:Cardiology Follow Up (FT) Diagnostic Tests Pending * Urine Culture 05/08/24 [facility]07-21-2024 Hospital Discharge instructions Patient Education 05/08/2024 [...] if you feel dizzy. General instructions Take vkmc-diw-wxfhlmu and prescription medicines only as told by [...] provider. Document Revised: 09/04/2021 Document Reviewed: 09/04/2021 [employer] Patient Education 2022 [employer]. 05/08/2024 09:33:58 Urinary Tract Infection, Adult Urinary [...] Treatment for this condition includes: Antibiotic medicine. Zgth-ovs-dvgfrrb medicines to treat discomfort. Drinking enough water [...] Follow these instructions at home: Medicines Take grvk-cpn-ayselot and prescription medicines only as told by [...] provider. Document Revised: 05/17/2021 Document Reviewed: 05/17/2021 [employer] Patient Education 2022 [employer]. Follow Up Care 05/08/2024 07:16:07 With:Vick Mcghee Address: [address] [place], [place] [id number] Business (1) When:05/11/2024 09:31:54 Comments:Call the office [...] you develop any new or worsening symptoms. [facility]07-21-2024 NoteED Patient Education Note Neurology Vertigo [...] you feel dizzy. General instructions ? Take bxql-tau-njvbaua and prescription medicines only as told by [...] provider. Document Revised: 09/04/2021 Document Reviewed: 09/04/2021 [employer] Patient Education ? 2022 [employer]. Obstetrics and Gynecology Urinary Tract Infection, Adult [...] have certain medical conditions, (more content not included)...[facility]02-14-2024 Telephone encounter Note* Telephone Encounter - JESSICA Hunt - 12/02/2023 10:41 AM EST Pt notified of wellness lab results and low tsh, t3 and t4 labs ordered for her as well. Pt states she will follow up with her primary care physician, DR Mcghee in next few weeks. She denies any symptoms at this time [id number] Miscellaneous Notes* Telephone Encounter - JESSICA Hunt - 12/02/2023 10:41 AM EST Pt notified of wellness lab results and low tsh, t3 and t4 labs ordered for her as well. Pt states she will follow up with her primary care physician, DR Mcghee in next few weeks. She denies any symptoms at this time documented in this encounterRusk [facility] [id number] History of Present illness Narrative* JESSICA Hunt - 11/25/2023 9:00 AM EST Reason for Appointment: Patient ID: Chloe Agarwal is a 68 y.o. female who presents for [facility] Women Visit Patient presents today for Annual [...] APPENDECTOMY 12/04/2017 [place] REMOVAL OF KIDNEY STONE 2008 Allergies Allergen [...] nursing note reviewed. Exam conducted with a kindergarten paraprofessional present. Vitals: Estimated body mass index is 33.22 kg/m as calculated from the following: Height as of this encounter: 5'. Weight as of this encounter: 170 lb 1.9 oz. BP: 120/84 No LMP recorded. Patient is postmenopausal. Assessment/Plan Encounter Diagnoses Name Primary? Well woman exam with routine gynecological exam Breast cancer screening by mammogram Other osteoporosis, unspecified pathological fracture presence ([facility]) Patient presents today for an annual exam. [...] behalf of: JESSICA Hunt documented in this encounterRusk Rehabilitation [id number] Evaluation + Plan note Extracted from: Title:Pain [...] PM Scheduled Provider:Willie Kaur MD Location[facility] [place] Appointment Type:Cardiology Follow Up (FT) [facility]01-08-2024 Evaluation + Plan noteExtracted from: Title:Pain [...] Date:11/20/2023 01:15:00 PM Scheduled Provider:Vicky Castillo PA-C Location[facility] [place] Appointment Type:Pain Management - Follow Up (FT) [facility]12-20-2023 Evaluation + Plan noteExtracted from: Title:Right [...] AM Scheduled Provider:Vicky Castillo PA-C Location[facility] [place] Appointment Type:Pain Management - Follow Up (FT) Appointment Date:11/17/2023 11:30:00 AM Scheduled Provider:Landon DOUGLAS MD Location:.[facility] Appointment Type:Cardiology Follow Up (FT) [facility]12-20-2023 Note [id number]2023 NoteDiagnosis: M54.16 Lumbar radiculopathy [...] and agrees to comply to currently prescribed/recommended therapies.[facility] Comment on above:Result Comment: Electronically Signed By: Claudio Monroe DO\Date and Time Signed: 10/07/23 09:54 [id number] Evaluation + Plan note Extracted from: Title:FUV Author:Valeri CANTRELL, Demar Leal Date :09/22/23 Impression and Plan 67-year-old female [...] Location:[facility] Appointment Type:Cardiology Follow Up (FT) [facility]08-21-2023 Evaluation + Plan noteExtracted from: Title:Pain [...] Clinic Appointment Type:Cardiology ED Follow Up (FT) [facility]08-18-2023 Evaluation + Plan noteExtracted from: Title:ED Note Author:Prasad Avalos DO Date:05/19 06/10 Dizziness (R42: Dizziness an d giddiness) Hypertension (I10: Essential (primary) hypertension) Orders: losartan, 50 mg = 1 tab(s), Oral, Daily, X 30 day(s), # 30 tab(s), Refills(s) 0, Pharmacy: [id number], 152.4, cm, 06/05/23 8:54:00 EDT, Height/Length [...] Date:06/08/2023 08:15:00 AM Scheduled Provider:Vicky Castillo PA-C Location:FT.[facility] Appointment Type:Pain Management - Follow Up (FT) Appointment Date:07/06/2023 11:00:00 AM Scheduled Provider:Landon DOUGLAS MD Location:[facility] Appointment Type:Cardiology ED Follow Up (FT) [facility]08-18-2023 Hospital Discharge instructions Follow Up Care 06/05/2023 08:40:51 With:Vick Mcghee Address: [address] [place] [id number] Business (1) When:Within 3 Day(s) [facility]07-17-2023 Evaluation + Plan noteExtracted from: Title:Pain [...] Date:06/08/2023 08:15:00 AM Scheduled Provider:Vicky Castillo PA-C Location:FT.[facility] Appointment Type:Pain Management - Follow Up (FT) [facility]06-16-2023 Evaluation + Plan noteExtracted from: Title:ANES Post-operative Note - General Author: Lb Wu Jr., DO Date:04/03/23 Plan Transfer/Discharge: Transfer/Discharge Discharge when meets criteria ( From PACU to Ambulatory Surgery Unit, and To home ). Extracted from: Title:ANES Pre-operative Note - Endo Author:Lb Melendez Jr., DO Date:04/03/23 Plan [place] [employer] Anesthesiologists (ASA) physical status classification: Class III. Anesthetic Preoperative Plan: Anesthesia General, and -TIVA. Future Appointments Appointment Date:04/07/2023 11:00:00 AM Scheduled Provider:Demar Trammell MD Location:FT.[facility] Appointment Type:Pain Management - Follow Up (FT) Appointment Date:04/28/2023 09:00:00 AM Scheduled Provider:Vicky LAST CNP Location:.[facility] Appointment Type:Cardiology Follow Up (FT) [facility]06-16-2023 Hospital Discharge instructions Patient Education 04/03/2023 [...] unsweetened, w/added ascorbic acid 1 cup 0.5 Section 1 cup 0.7 Vegetables Cooked Green beans 1 cup 4.0 Carrots 1/2 cup sliced 2.3 Peas 1 cup 8.8 Potato (baked, with skin) 1 medium potato 3.8 Raw Henefer (with peel) 1 cucumber 1.5 Lettuce 1 [...] 8.7 Peanuts 1/2 cup 7.9 Chart from [facility] 2013. SEEK IMMEDIATE MEDICAL CARE IF: You [...] Reference. Available at http://www.nal.usda.gov/fnic/foodcomp/search/. Information adapted from: [facility] Patient Information 2009 [facility]. [facility] MexicoDate 2013 [email or web address] 04/03/2023 10:24:14 Colonoscopy, Care After Surgery Enio [...] reduce GERD symptoms. Medicines. These may include: ?Kdph-hnv-lvakhtc antacids. ?Medicines that make your stomach empty [...] may include: ?Fatty foods, like fried foods. ?Bullock fruits, like oranges or lemon. ?Other foods [...] Do not drink alcohol. General instructions Take fsps-czx-rqhwpup and prescription medicines only as told by [...] provider. Document Revised: 08/19/2022 Document Reviewed: 09/05/2021 [employer] Patient Education 2022 [employer]. 04/03/2023 10:24:03 Endoscopy, Care After Procedure [facility] Endoscopy Care After Procedure Please read the instructions outlined below and refer to this sheet in the next few weeks. These discharge instructions provide you with general information on caring for [facility] Your doctor may also give you specific [...] Document Re-Released: 03/29/2007 ExitCare Patient Information 2009 [employer]. Follow Up Care 02/23/2023 10:35:27 With:Michael ALBRIGHT Address: [address] [place] [address], [facility] [address] [phone] Business (1) When:2 weeks [facility]05-08-2023 Evaluation + Plan noteExtracted from: Title:NPV [...] Appointments Appointment Date:04/03/2023 10:30:00 AM Scheduled Provider: Location:[facility] Appointment Type:Surgery FT Appointment Date:04/28/2023 09:00:00 AM Scheduled Provider:Vicky LAST CNP Location:[facility] Appointment Type:Cardiology Follow Up (FT) [facility]12-21-2021 Hospital Discharge instructions Follow Up Care 10/08/2021 14:10:47 With:Landon Douglas MD Address: [address] [place] [phone] When: Unknown [facility] Future Appointments Appointment Date:11/05/2022 11:30:00 AM Scheduled Provider:Landon Douglas MD Location:[facility] Appointment Type:Cardiology Follow Up (FT) Future Scheduled Tests Laboratory* Lipid Panel 09/05/21 Radiology* Echo Transthoracic Complete 09/29/22 [facility] Future Appointments Appointment Date:11/05/2022 11:30:00 AM Scheduled Provider:Landon Douglas MD [facility] ([facility] Future Appointments Appointment Date:02/23/2023 12:30:00 PM Scheduled Provider:Demar Trammell MD Location:[facility] [place] Appointment Type:Pain Management - New (FT) Appointment Date:04/28/2023 09:00:00 AM Scheduled Provider:Vicky LAST CNP Location:[facility] Appointment Type:Cardiology Follow Up (FT) [facility] Evaluation + Plan note Future Appointments Appointment Date:04/03/2023 10:30:00 AM Scheduled Provider: Location:[place] Appointment Type:Surgery FT Appointment Date:04/07/2023 11:00:00 AM Scheduled Provider:Demar Trammell MD Location:[facility] [place] Appointment Type:Pain Management - Follow Up (FT) Appointment Date:04/28/2023 09:00:00 AM Scheduled Provider:Vicky LAST CNP Location:[facility] Appointment Type:Cardiology Follow Up (FT) [facility] + Plan note Future Appointments Appointment Date:04/20/2023 02:15:00 PM Scheduled Provider:Demar Trammell MD Location:[facility] [place] Appointment Type:Pain Management - Office Injection (FT) Appointment Date:04/28/2023 09:00:00 AM Scheduled Provider:Vicky LAST CNP Location:[facility] Appointment Type:Cardiology Follow Up (FT) Appointment Date:05/04/2023 09:00:00 AM Scheduled Provider:Vicky Castillo PA-C Location:[facility] [place] Appointment Type:Pain Management - Follow Up (FT) [facility] Evaluation + Plan note Future Appointments Appointment Date:04/28/2023 09:00:00 AM Scheduled Provider:Vicky LAST CNP Location:[facility] Appointment Type:Cardiology Follow Up (FT) Appointment Date:05/04/2023 09:00:00 AM Scheduled Provider:Vicky Castillo PA-C Location:[facility] [place] Appointment Type:Pain Management - [facility] (FT[facility] Future Appointments Appointment Date:05/04/2023 09:00:00 AM Scheduled Provider:Vicky Castillo PA-C Location:[facility] [place] Appointment Type:Pain Management - Follow Up (FT[facility] Future Appointments Appointment Date:07/14/2023 09:30:00 AM Scheduled Provider:Vicky LAST CNP [facility] Future Appointments Appointment Date:11/17/2023 11:30:00 AM Scheduled Provider:Landon DOUGLAS MD Location:.[facility] Appointment Type:Cardiology Follow Up (FT) Appointment Date:11/20/2023 01:15:00 PM Scheduled Provider:Vicky Castillo PA-C Location:.[facility] Appointment Type:[facility] - [facility] (FT[facility] Future Appointments Appointment Date:11/20/2023 01:15:00 PM Scheduled Provider:Vicky Castillo PA-C Location:.[facility] [place] Appointment Type:Pain Management - Follow Up (FT) Appointment Date:12/14/2023 10:45:00 AM Scheduled Provider:Barry Husain MD Location:.[facility] Appointment Type:Pulmonary New Patient (FT) Appointment Date:12/18/2023 01:45:00 PM Scheduled Provider:Willie Kaur MD Location[facility] [place] Appointment Type:Cardiology Follow [facility] (FT[facility] Future Appointments Appointment Date:08/08/2024 08:15:00 AM Scheduled Provider:Claudio Monroe DO Location:.[facility] [place] Appointment Type:Pain Management - Follow Up (FT) Appointment Date:01/12/2025 09:30:00 AM Scheduled Provider:Lokesh Mcqueen PA-C Location:.[facility] Appointment Type:Cardiology Follow Up (FT) [facility] Evaluation + Plan note Future Appointments Appointment Date:01/12/2025 09:30:00 AM Scheduled Provider:Lokesh Mcqueen PA-C Location:.[facility] Appointment Type:Cardiology Follow Up (FT) Future Scheduled Tests Radiology* CT Spine Lumbar w/ Contrast 08/15/24 [facility] Evaluation + Plan note Future Appointments Appointment Date:07/13/2024 03:00:00 PM Scheduled Provider:Willie Kaur MD Location:[facility] Appointment Type:Cardiology Follow Up (FT) Appointment Date:08/08/2024 08:15:00 AM Scheduled Provider:Claudio Monroe DO Location:[facility] [place] Appointment Type:Pain Management - Follow Up (FT) [facility] Evaluation + Plan note Future Appointments Appointment Date:01/13/2025 10:15:00 AM Scheduled Provider:Lokesh Mcqueen PA-C Location:[facility] Appointment Type:Cardiology Follow Up (FT) Future Scheduled Tests Radiology* CT Spine Lumbar w/ Contrast 08/15/24 [facility] evaluation note* Diagnosis Well woman exam [...] this encounter [facility] noteNo assessment information availableWhite Hospital Work Phone: Hospital course Narrative No data available for this section [facility] No data available for this section [facility] No data available for this section [facility] Summary Purpose Family History No Family [...] CREATED AUTHOR AUTHOR'S ORGANIZ ATION 03/04/2023 [facility] DATE CREATED AUTHOR AUTHOR'S ORGANIZ ATION 05/10/2024 [facility] DATE CREATED AUTHOR AUTHOR'S ORGANIZ ATION 07/17/2024 [facility] DATE CREATED AUTHOR AUTHOR'S ORGANIZ ATION 08/12/2024 [facility] DATE CREATED AUTHOR AUTHOR'S ORGANIZ ATION 08/12/2024 [facility] DATE CREATED AUTHOR AUTHOR'S ORGANIZ ATION 09/09/2024 [facility] DATE CREATED AUTHOR AUTHOR'S ORGANIZ ATION 11/17/2024 [facility] DATE CREATED AUTHOR AUTHOR'S ORGANIZ ATION 11/25/2024 [place] [facility] Care Team (unrecognized sect ion and content) [employer]pper Relationship Specialty Start Date End Date Vick Mcghee MD [address] [place] [address] PCP - General Family Medicine 05/21/23 [employer]pper Relationship Specialty Start Date End Date Vick Mcghee MD [address] [place] [address] PCP - General Family Medicine 05/21/23 [employer] Stripper Relationship Specialty Start Date End Date Vick Mcghee MD [address] [place] [facility] [phone] PCP - General Family Medicine 05/21/23 Le[employer] Stripper Relationship Specialty Start Date End Date Vick Mcghee MD [address] [place] [facility] [phone] PCP - General Family Medicine 05/21/23 [employer] Stripper Relationship Specialty Start Date End Date Vick Mcghee MD [address] [place] [facility] [phone] PCP - General Family Medicine 05/21/23 [employer] Stripper Relationship Specialty Start Date End Date Vick Mcghee MD [address] [place] [facility] [phone] PCP - General Family Medicine 05/21/23 Team Status: Active Member Role Status Benigno Mcghee MD Primary Care Provider Active Team Status: Inactive Member Role Status Benigno Mcghee MD Primary Care Provider Active Start: September 02, 2024 End: September 02, 2024 NON STAFF Attending Provider Active Start: No [email or web address] End: September 02, 2024 Reason for Visit [...] BE BASED ON THE PRIMARY CLINICAL RECORDS. [facility] [employer] [facility]. provides no warranty or guarantee of the accuracy or completeness of information in this document.
== END 2024-11-28 22:00 | disposition home or self-care (01) ==
LOC: LAB 21:59
PROVIDERS: PCP Family Medicine; Visit Provider Physician Assistant
DX: Z01.419 Encounter for gynecological examination (general) (routine) without abnormal findings (principal)
CPT/HCPCS: 88175

== ENCOUNTER 2024-12-14 08:21 | Outpatient (OUT) | payer MEDICARE, SELFPAY ==
--- NOTE | 2024-12-14 08:25 | MM_ITS ---
Patient Name: CHLOE AGARWAL MR#: [id number] : 1955 Exam Date: 12/14/2024 Ordering Doctor: JESSICA Yang . RADIOLOGY REPORT PROCEDURE: MM TOMOSYNTHESIS SCREENING BI COMPARISON: MM TOMOSYNTHESIS SCREENING BI, 11/30/2023. MG MAMM SCREEN 3D LAURA CAD, 10/22/2022. MG MAMM LAURA DIAG W CAD, 06/26/2021. MG MAMM LAURA DIAG W CAD, 09/20/2019. INDICATIONS: Screening Calculator Name NCI Breast Cancer Risk Assessment Tool 5 Year Breast Cancer Risk Not Reported. Lifetime Breast Cancer Risk Not Reported. Personal Breast Cancer No Personal Ovarian Cancer No Treatments None Family Cancers None LOCATION: [facility] BREAST COMPOSITION: There are scattered areas of fibroglandular density. FINDINGS: RIGHT BREAST: No significant suspicious finding. Benign-appearing calcifications are present. LEFT BREAST: No significant suspicious finding. Benign-appearing calcifications are present. There is a similar focal asymmetry laterally. DIAGNOSTIC CATEGORY 2--BENIGN FINDING. NO CHANGE FROM COMPARISON. RECOMMENDATIONS: ROUTINE MAMMOGRAM AND CLINICAL EVALUATION IN 12 MONTHS. PLEASE NOTE: A NORMAL MAMMOGRAM DOES NOT EXCLUDE THE POSSIBILITY OF BREAST CANCER. A CLINICALLY SUSPICIOUS PALPABLE LUMP SHOULD BE BIOPSIED. Dictated by: Bernardo Myles MD on 12/14/2024 at 11:40 Approved by: Bernardo Myles MD on 12/14/2024 at 11:47
== END 2024-12-14 08:22 | disposition home or self-care (01) ==
LOC: MAMMO 08:21
PROVIDERS: PCP Family Medicine; Visit Provider Physician Assistant
DX: Z12.31 Encounter for screening mammogram for malignant neoplasm of breast (principal); M81.0 Age-related osteoporosis without current pathological fracture; M85.80 Other specified disorders of bone density and structure, unspecified site
CPT/HCPCS: 77063; 77067; 77080

== ENCOUNTER 2025-01-10 09:47 | Outpatient (OUT) | payer MEDICARE, SELFPAY ==
--- OUTSIDE RECORDS SUMMARY | 2025-01-10 10:10 | XMS_ITS | CCD ---
Author Organization [facility] Care Team Providers Care Coordinator Of Rehabilitation Services Name Role Phone Adryan Yoon Unavailable Unavailable Adryan Yoon Unavailable Unavailable VICK MCGHEE Unavailable Unavailable Fernie Sandoval Unavailable Unavailable Vick Mcghee Primary Care Physician [phone] BR[address] ., DR RANGEL Admitting Unavailabl e [...] e ZIEBER, DR RYAN Billingsley Consulting Unavailable Vick Mcghee [...] Castillo Attending Unavailable Nelson Solares Attending Unavailable Husain Basem GRuba Attending Unavailable Husain Basem GRuba Referring Unavailable Husain Basem GRuba Admitting Unavailable Husain Basem GRuba Attending Unavailable Landon DOUGLAS Referring Unavailable FRANCO Castillo Vicky Admitting Unavailabl e Anna, Vicky Attending Unavailable Vick Mcghee Referring Unavailable FRANCO Castillo Vicky Admitting Unavailabl e Anna, Vicky Attending Unavailable Vick Mcghee Referring Unavailable Vick Mcghee MD Primary Care Provider [phone] NON STAFF Attending Provider Unavailable NON STAFF Attending Unavailable NON STAFF Admitting Unavailable Vick Mcghee Primary Care Unavailable Claudio Monroe Attending Unavailable Claudio Monroe Admitting Unavailable Darshan Laughlin Attending Unavailable Vick Mcghee Referring Unavailable Claudio Monroe Attending Unavailable Claudio Monroe Admitting Unavailable NONE, XXXX Referring Unavailable Lokesh Mcqueen Attending Unavailable Lokesh Mcqueen Admitting Unavailable SAM KAISER Attending Unavailable SAM KAISER Admitting Unavailable SAM KAISER Referring Unavailable OJUKWU, Mbanefo Attending Unavailable OJUKWU, Mbanefo Admitting Unavailable [facility] Cardio, XXXX Consulting Unavailable ANTIONETTE YANG Attending Unavailable SYDNIE VILLALOBOS Attending Unavailable SYDNIE VILLALOBOS Attending Unavailable Lokesh Mcqueen Admitting Unavailable Lokesh Mcqueen Attending Unavailable Lokesh Mcqueen Referring Unavailable Jayden Santos Attending Unavailable Baldomero Hurtado Consulting Unavailable Jayden Santos Admitting Unavailable Baldomero Hurtado Consulting Unavailable MD Baldomero Hurtado Consulting Unavailable [facility] Cardio, XXXX Consulting Unavailable Allergies Allergy Classification Reported Allergen(s) Allergy Type Date of Onset Reaction(s) Facility (1 source) Sulfonamide; Translations: [sulfonamide] Propensity to adverse reactions to drug (disorder) [facility] Repository (20 sources) Sulfonamides (Antibiotic); Translations: [sulfa drugs] Drug allergy unknown [facility] (20 sources) Lisinopril; Translations: [lisinopril] Drug Allergy Coughing - function (qualifier value) [facility] (1 source) Sulfonamides (Antibiotic) Drug allergy (disorder) [facility] Repository (20 sources) gabapentin; Translations: [gabapentin] Drug Allergy 3 Headache (finding), Headache [facility] (14 sources) Lisinopril Propensity to adverse reactions 3 [facility] (14 sources) Sulfonamides (Antibiotic) Drug Allergy 3 [facility] (10 sources) Baclofen; Translations: [baclofen] Drug Allergy Hand pain (finding), Menopausal flushing (finding), Bilateral weakness of upper limbs, Weakness of bilateral lower limb, Numbness of limbs (finding) [facility] (14 sources) DULoxetine; Translations: [duloxetine] Drug Allergy 4 Vomiting (disorder) [facility] (4 sources) Baclofen Drug Allergy 5 [facility] Medications Current Medications Medication Drug Class(es) [...] Daily, # 30 tab(s), Refills(s) 2, Pharmacy: [facility], 152, cm, 10/05/24 11:36:00 EST, Height/Length Dosing, 75.8, kg, 10/05/24 11:40:00 EST, Weight Dosing Start Date: 10/05/24 Status: Ordered cephalexin 500 mg oral capsule (1 source) Cephalosporin Antibacterial Start: 05-08-2024 End: 05-13-2024 take 1 capsule by mouth every twelve hours Keflex 500 mg Cap 500 mg = 1 cap(s), Oral, q12hr, X 5 day(s), # 10 cap(s), Refills(s) 0, Pharmacy: [facility], 152, cm, 05/08/24 7:24:00 EDT, Height/Length Dosing, 77.2, kg, 05/08/24 7:33:00 EDT, Weight Dosing Start Date: 05/08/24 Stop Date: 05/13/24 Status: Ordered cloNIDine hydrochloride 0.1 mg oral tablet (1 source) Central alpha-2 Adrenergic Agonist Start: 11-03-2024 take 1 tablet by mouth twice daily cloNIDine 0.1 mg tab 0.1 mg = 1 tab(s), Oral, BID, # 60 tab(s), Refills(s) 5, Pharmacy: [facility], 152, cm, 10/05/24 11:36:00 EST, Height/Length Dosing, 75.8, kg, 10/05/24 11:40:00 EST, Weight Dosing Start Date: 11/03/24 Status: Ordered gabapentin 300 mg oral capsule (8 sources) Anti-epileptic Agent Start: 05-04-2023 End: 11-25-2023 gabapentin 300 mg Cap 300 mg = 1 cap(s), Oral, BID, start with once a day for a week. If doing ok can increase to BID, # 60 cap(s), Refills(s) 0, Pharmacy: [facility], 152, cm, 05/04/23 8:55:00 EDT, Height/Length Dosing, 72.6, kg, 05/04/23 8:55:00 EDT, Weight Dosing Start Date: 05/04/23 Status: Ordered hydroCHLOROthiazide 12.5 mg oral capsule (20 sources) Thiazide Diuretic Start: 11-17-2023 take 1 capsule by mouth in the morning hydroCHLOROthiazide (Microzide) 12.5 MG capsule Take 12.5 mg by mouth in the morning. 11/17/2023 Active hydrOXYzine pamoate 25 mg oral capsule (1 source) Antihistamine Start: 11-16-2024 take 1 capsule by mouth four times daily as needed for anxiety Vistaril 25 mg Cap 25 mg = 1 cap(s), Oral, QID, PRN for anxiety, # 40 cap(s), Refills(s) 0, Pharmacy: [facility], 75.8, cm, 11/15/24 13:21:00 EST, Height/Length Dosing, 78.5, kg, 11/15/24 13:21:00 EST, Weight Dosing Start Date: 11/16/24 Status: Ordered linaclotide 0.072 mg oral capsule [...] day(s), # 9 tab(s), Refills(s) 0, Pharmacy: [facility], 152, cm, 05/08/24 7:24:00 EDT, Height/Length Dosing, 77.2, kg, 05/08/24 7:33:00 EDT, Weight Dosing Start Date: 05/08/24 Stop Date: 05/11/24 Status: Ordered losartan potassium 100 mg oral tablet (20 sources) Angiotensin 2 Receptor Hermilo Start: 07-13-2024 take 1 tablet by mouth at bedtime losartan 100 mg Tab 100 mg = 1 tab(s), Oral, Bedtime, # 90 tab(s), Refills(s) 3, Pharmacy: [facility], 152, cm, 07/13/24 15:04:00 EDT, Height/Length Dosing, 75, kg, 07/13/24 15:04:00 EDT, Weight Dosing Start Date: 07/13/24 Status: Ordered Start: 12-18-2023 take 1 tablet by herberth th at bedtime losartan 100 mg Tab 100 mg = 1 tab(s), Oral, Bedtime, # 90 tab(s), Refills(s) 3, Pharmacy: [facility], 152, cm, 12/18/23 13:31:00 EST, Height/Length Dosing, 79.2, kg, 12/18/23 13:37:00 EST, Weight Dosing Start Date: 12/18/23 Status: Ordered Start: 07-14-2023 take 1 tablet by herberth at bedtime losartan 100 mg Tab 100 mg = 1 tab(s), Oral, Bedtime, # 90 tab(s), Refills(s) 1, Pharmacy: [facility], 152, cm, 07/14/23 9:26:00 EDT, Height/Length Dosing, 76.9, kg, 07/14/23 9:26:00 EDT, Weight Dosing Start Date: 07/14/23 Status: Ordered Start: 06-30-2023 End: 07-30-2023 take 1 tablet by mouth twice daily losartan 50 mg Tab 50 mg = 1 tab(s), Oral, BID, X 30 day(s), # 60 tab(s), Refills(s) 0, Pharmacy: [facility], 152, cm, 06/30/23 15:07:00 EDT, Height/Length Dosing, 77.5, kg, 06/30/23 15:07:00 EDT, Weight Dosing Start Date: 06/30/23 Stop Date: 07/30/23 Status: Ordered Start: 06-05-2023 End: 07-05-2023 take 1 tablet by mouth once daily losartan 50 mg Tab 50 mg = 1 tab(s), Oral, Daily, X 30 day(s), # 30 tab(s), Refills(s) 0, Pharmacy: [facility], 152.4, cm, 06/05/23 8:54:00 EDT, Height/Length Dosing, 73, kg, 06/05/23 8:54:00 EDT, Weight Dosing Start Date: 06/05/23 Stop Date: 07/05/23 Status: Ordered Start: 11-05-2022 End: 10-31-2023 take 1 tablet by mouth once daily Cozaar 25 mg Tab 25 mg = 1 tab(s), Oral, Daily, stopping Lisinopril Starting Cozaar, X 90 day(s), # 90 tab(s), Refills(s) 3, Pharmacy: [facility], 152, cm, 11/05/22 11:35:00 EST, Height/Length [...] dizziness, # 30 tab(s), Refills(s) 0, Pharmacy: [facility], 152, cm, 05/08/24 7:24:00 EDT, Height/Length [...] day(s), # 21 tab(s), Refills(s) 0, Pharmacy: [facility], 152, cm, 09/22/23 11:39:00 EST, Height/Length Dosing, 70.5, kg, 09/22/23 11:39:00 EST, Weight Dosing Start Date: 09/22/23 Stop Date: 09/28/23 Status: Ordered 24 hr metoprolol succinate 50 mg extended release oral tablet (20 sources) beta-Adrenergic Hermilo Start: 11-16-2024 take 1 tablet by mouth once daily metoprolol succinate 50 mg ER Tab 50 mg = 1 tab(s), Oral, Daily, # 30 tab(s), Refills(s) 0, Pharmacy: [facility], 75.8, cm, 11/15/24 13:21:00 EST, Height/Length Dosing, 78.5, kg, 11/15/24 13:21:00 EST, Weight Dosing Start Date: 11/16/24 Status: Ordered Start: 11-17-2023 take 2 tablets by [facility] once daily metoprolol succinate 50 mg ER Tab 100 mg = 2 tab(s), Oral, Daily, # 180 tab(s), Refills(s) 3, Pharmacy: [facility], 152, cm, 07/13/24 15:04:00 EDT, Height/Length Dosing, 75, kg, 07/13/24 15:04:00 EDT, Weight Dosing Start Date: 07/13/24 Status: Ordered Start: 06-30-2023 End: 12-27-2023 take 1 tablet by mouth once daily metoprolol 50 mg ER Tab 50 mg = 1 tab(s), Oral, Daily, # 90 tab(s), Refills(s) 1, Pharmacy: [facility], 152, cm, 07/14/23 9:26:00 EDT, Height/Length Dosing, 76.9, kg, 07/14/23 9:26:00 EDT, Weight Dosing Start Date: 07/14/23 Status: Ordered Start: 11-14-2022 take 1 tablet by herberth th once daily metoprolol 25 mg ER Tab 25 mg = 1 tab(s), Oral, Daily, # 90 tab(s), Refills(s) 3, Pharmacy: [facility], 152, cm, 11/05/22 11:35:00 EST, Height/Length Dosing, 76, kg, 11/05/22 11:35:00 EST, Weight Dosing Start Date: 11/14/22 Status: Ordered Start: 10-08-2021 End: 10-03-2022 take 1 tablet by mouth once daily Toprol XL 25 mg Tab-ER 25 mg = 1 tab(s), Oral, Daily, X 90 day(s), # 90 tab(s), Refills(s) 3, Pharmacy: [facility], 152, cm, 10/08/21 13:49:00 EST, Height/Length Dosing, 73, kg, 10/08/21 13:49:00 EST, Weight Dosing Start Date: 10/08/21 Stop Date: 10/03/22 Status: Ordered take 1 tablet by herberth every twenty-four hours metoprolol succinate XL (Toprol-XL) 25 MG 24 hr tablet Take 50 mg by mouth. Do not crush or chew. Active Multi Vitamin+ (8 sources) Start: 09-22-2023 Multi Vitamin+ Oral, Daily, Refill(s) 0 Start Date: 09/22/23 Status: Ordered Start: 09-22-2023 Multi Vitamin+ Refill(s) 0 Start Date: 09/22/23 Status: Ordered naproxen sodium 220 mg oral capsule (7 sources) Nonsteroidal Anti-inflammatory Drug Start: 11-15-2024 take 2 capsules by mouth every eight hours as needed for pain Aleve 220 mg oral capsule 440 mg = 2 cap(s), Oral, q8hr, PRN as needed for pain, Refills(s) 0 Start Date: 11/15/24 Status: Ordered Start: 09-22-2023 Aleve Refills( s) 0 Start Date: 09/22/23 Status: Ordered pantoprazole 40 mg delayed release oral tablet (20 sources) Proton Pump Inhibitor Start: 04-16-2021 take 1 tablet by mouth twice daily Protonix 40 mg Tab-DR 40 mg = 1 tab(s), Oral, BID, # 120 tab(s), Refills(s) 0, Pharmacy: [facility], 152.4, cm, 04/01/21 7:20:00 EDT, Height/Length [...] BID, # 60 cap(s), Refills(s) 0, Pharmacy: [facility], 152, cm, 10/26/23 13:07:00 EST, Height/Length [...] QID, # 120 tab(s), Refills(s) 3, Pharmacy: [facility], 152, cm, 04/03/23 9:20:00 EDT, Height/Length [...] q8hr, # 12 tab(s), Refills(s) 0, Pharmacy: [facility], 152, cm, 05/08/24 7:24:00 EDT, Height/Length [...] day(s), # 90 tab(s), Refills(s) 0, Pharmacy: [facility], 152, cm, 07/06/24 15:10:00 EDT, Height/Length [...] day(s), # 60 cap(s), Refills(s) 0, Pharmacy: [facility], 152, cm, 07/06/24 15:10:00 EDT, Height/Length [...] pain] Onset: 3 Episodic Acquired foot deformities (14 sources) Hallux valgus AND bunion; Translations: [Hallux [...] osteoarthritis 02-23-2023 Episodic Other connective tissue disease (14 sources) Tendinitis 09-22-2023 Episodic Other connective tissue [...] conditions (not mental disorders or infectious disease) (15 sources) Screening for malignant neoplasm of colon [...] Test Name Value Interpretation Reference Range Facility US PELVIC COMPLETE W/ TVon 0 12-21-2024 US PELVIC COMPLETE W/ TV EXAM: US PELVIS HISTORY: Constant pelvic pain x 2 months. COMPARISON: None available. TECHNIQUE: Two-dimensional transabdominal grayscale ultrasound imaging of the pelvis was performed. Color flow Doppler imaging of the ovaries was also performed. Transvaginal was performed. FINDINGS: UTERUS 6.3 x 3.4 x 3.6 cm The uterus is anteverted in position and demonstrates a mildly heterogeneous echotexture. There is a 2.6 cm fibroid within the fundus. There is a 1.1 cm fibroid within the uterine body. Multiple nabothian cysts are visualized within the cervix. ENDOMETRIUM The endometrium is not visualized. RIGHT OVARY 2.2 x 0.9 x 2.1 cm The right ovary demonstrates a normal echotexture. There is normal color Doppler flow. LEFT OVARY The left ovary is not visualized. No fluid is present within the cul-de-sac. IMPRESSION: 1. Mildly heterogeneous uterus with two fibroids. 2. Normal color Doppler flow within the right ovary, the left ovary was not visualized. Electronically Signed:Electronically signed by FANNY COONEY II, MD, PHD at 22-Dec-2024 10:37:30 AM [facility] Normal Not Available Comment on above: Order Comment: US PE LVIS-TRANSVAG IF INDICATED No LMP recorded. Patient is postmenopausal. TX Myocardial Spect Rest/Str ess 1 Dayon 12-19-2024 TX Myocardial Spect Rest/Stress 1 Day Exam Date/Time: 12/19/2024 10:40 EST Reason for Exam: R07.9;Chest pain Report [address] [address] Nuclear Stress Report Name: CHLOE AGARWAL Study Date: 12/19/2024 08:10 AM Patient Location: [facility] Ambulatory(s) [facility] : 1955 (M/d/yyyy) Gender: Female Age: 69 yrs Ethnicity: [facility] Reason For Study: R07.9;Chest pain Ordering Physician: Lokesh Mcqueen Referring Physician: Lokesh Mcqueen Protocol 16110 Pharmacologic Lexiscan stress with Isotope. Study Protocol: One day rest/stress acquisition. Rest Dose Tc99m Cardiolite was administered. Rest Dose: 9.6 mCi IV. Stress Dose Stress Protocol: Lexiscan. Stress Dose: 29.0 mCi IV. Stress Parameters Normal blood pressure response. Stress Symptoms: Chest pain. ECG Rest Normal Sinus Rhythm. PVCs, low voltage. ECG Peak No significant changes from baseline. No ST-T wave changes from baseline. Arrhythmia No arrhythmias. Image Quality Rest Images: Limited or suboptimal due to excessive GI uptake. Stress Images: Limited or suboptimal due to excessive GI uptake. SPECT Perfusion No gross perfusion abnormalities. TID 1.06. Report Left Ventricle Gating not done. Interpretation Summary No gross perfusion abnormalities. TID 1.06 Rest Images: Limited or suboptimal due to excessive GI uptake. Stress Images: Limited or suboptimal due to excessive GI uptake. FINAL REPORT Dictated: 12/19/2024 8:10 am Boo Mcfarland MD Signed (Electronic Signature): 12/19/2024 3:15 pm Signed by: Boo Mcfarland MD Transcribed by: GARY Technologist: MATTY Vasquez [facility] MM TOMOSYNTHESIS SCREENING B Ion 12-14-[address] [address] Mammography Report Signed Patient: CHLOE AGARWAL MR#: [id number] : 1955 Acct:[id number] Age/Sex: 69 / F ADM Date: 12/14/24 Loc: MAMMO Attending Dr: Antionette Yang Ordering Physician: Antionette Yang Results: Date of Service: 12/14/24 Follow Up: Procedure(s): MM tomosynthesis screening BI Accession Number(s): [id number] cc: Antionette Yang; Vick Mcghee M.D. Patient Name: CHLOE AGARWAL MR#: [id number] : 1955 Exam Date: 12/14/2024 Ordering Doctor: JESSICA Yang . RADIOLOGY REPORT PROCEDURE: MM TOMOSYNTHESIS SCREENING BI COMPARISON: MM TOMOSYNTHESIS SCREENING BI, 11/30/2023. MG MAMM SCREEN 3D LAURA CAD, 10/22/2022. MG MAMM LAURA DIAG W CAD, 06/26/2021. MG MAMM LAURA DIAG W CAD, 09/20/2019. INDICATIONS: Screening Calculator Name NCI Breast Cancer Risk Assessment Tool 5 Year Breast Cancer Risk Not Reported. Lifetime Breast Cancer Risk Not Reported. Personal Breast Cancer No Personal Ovarian Cancer No Treatments None Family Cancers None LOCATION: [facility] BREAST COMPOSITION: There are scattered areas of fibroglandular density. FINDINGS: RIGHT BREAST: No significant suspicious finding. Benign-appearing calcifications are present. LEFT BREAST: No significant suspicious finding. Benign-appearing calcifications are present. There is a similar focal asymmetry laterally. DIAGNOSTIC CATEGORY 2--BENIGN FINDING. NO CHANGE FROM COMPARISON. RECOMMENDATIONS: ROUTINE MAMMOGRAM AND CLINICAL EVALUATION IN 12 MONTHS. PLEASE NOTE: A NORMAL MAMMOGRAM DOES NOT EXCLUDE THE POSSIBILITY OF BREAST CANCER. A CLINICALLY SUSPICIOUS PALPABLE LUMP SHOULD BE BIOPSIED. Dictated by: Bernardo Myles MD on 12/14/2024 at 11:40 Approved by: Bernardo Myles MD on 12/14/2024 at 11:47 Dictated By: Bernardo Myles M.D. Signed By: 12/14/24 1148 DD/ 1147 TD/TT: Waxer: [facility] Radiology, Radiologi MD kimberly - 12/14/2024 [facility] [place] [id number] Mammography Report Signed Patient: CHLOE AGARWAL MR#: [id number] : 1955 Acct:[id number] Age/Sex: 69 / F ADM Date: 12/14/24 Loc: MAMMO Attending Dr: Antionette Yang Ordering Physician: Antionette Yang Results: Date of Service: 12/14/24 Follow Up: Procedure(s): MM tomosynthesis screening BI Accession Number(s): [id number] cc: Antionette Yang; Vick Mcghee M.D. Patient Name: CHLOE AGARWAL MR#: [id number] : 1955 Exam Date: 12/14/2024 Ordering Doctor: JESSICA Yang . RADIOLOGY REPORT PROCEDURE: MM TOMOSYNTHESIS SCREENING BI COMPARISON: MM TOMOSYNTHESIS SCREENING BI, 11/30/2023. MG MAMM SCREEN 3D LAURA CAD, 10/22/2022. MG MAMM LAURA DIAG W CAD, 06/26/2021. MG MAMM LAURA DIAG W CAD, 09/20/2019. INDICATIONS: Screening Calculator Name NCI Breast Cancer Risk Assessment Tool 5 Year Breast Cancer Risk Not Reported. Lifetime Breast Cancer Risk Not Reported. Personal Breast Cancer No Personal Ovarian Cancer No Treatments None Family Cancers None LOCATION: [facility] BREAST COMPOSITION: There are scattered areas of fibroglandular density. FINDINGS: RIGHT BREAST: No significant suspicious finding. Benign-appearing calcifications are present. LEFT BREAST: No significant suspicious finding. Benign-appearing calcifications are present. There is a similar focal asymmetry laterally. DIAGNOSTIC CATEGORY 2--BENIGN FINDING. NO CHANGE FROM COMPARISON. RECOMMENDATIONS: ROUTINE MAMMOGRAM AND CLINICAL EVALUATION IN 12 MONTHS. PLEASE NOTE: A NORMAL MAMMOGRAM DOES NOT EXCLUDE THE POSSIBILITY OF BREAST CANCER. A CLINICALLY SUSPICIOUS PALPABLE LUMP SHOULD BE BIOPSIED. Dictated by: Bernardo Myles MD on 12/14/2024 at 11:40 Approved by: Bernardo Myles MD on 12/14/2024 at 11:47 Dictated By: Bernardo Myles M.D. Signed By: 12/14/24 1148 DD/ 1147 TD/TT: Waxer: [facility] Radiology Study observation (narrative) [facility] MM TOMOSYNTHESIS SCREENING B IOrdered By: Radiologist Radiology on 12-14-2024 [facility] Work Phone: IGP,APTIMA HPV,AGE GDLNon AGE GDLN ACOG TESTING Note . [facility] Comment on above: TESTS RESULT FLAG ITS REF RANGE LAB Clinician Provided Cytology Information Source.............Cervix;Endocervix No. of containers..01 ThinPrep Vial Age Algo ACOG Micheal... Note 01 <21 or >65 or no age provided FLAG LEGEND: L-Low Normal,H-High Normal,LL-Alert Low,HH-Alert High <-Panic Low,>-Panic High,A-Abnormal,AA-Critical Abnormal Performed at: 01 =[address] [facility] [address] Adelina Nunez MD, PAP IG (IMAGE GUIDED) Note . [facility] Comment on above: TESTS RESULT FLAG UN ITS REF RANGE LAB DIAGNOSIS: 02 NEGATIVE FOR INTRAEPITHELIAL LESION OR MALIGNANCY. CELLULAR CHANGES ASSOCIATED WITH ATROPHY ARE PRESENT. Specimen adequacy: 02 Satisfactory for evaluation. Endocervical component may not be distinguished in cases of atrophy. Performed by: 02 Mali Neely Party Planner ([facility]) . 02 Note: Note 03 The Pap smear is a screening test designed to aid in the detection of premalignant and malignant conditions of the uterine cervix. It is not a diagnostic procedure and should not be used as the sole means of detecting cervical cancer. Both false-positive and false-negative reports do occur. Test Methodology: Note 03 This liquid based ThinPrep(R) pap test was screened with the use of an image guided system. FLAG LEGEND: L-Low Normal,H-High Normal,LL-Alert Low,HH-Alert High <-Panic Low,>-Panic High,A-Abnormal,AA-Critical Abnormal Performed at: [address] [address] Shakila Ivey PhD, [address] [address] Adelina Nunez MD, Performed at: =G - [address] [id number] Painter Drum: Adelina Nunez MD, Phone: [phone] Performed at: [address] [id number] Painter Drum: Shakila Ivey PhD, Phone: [phone] [facility]19 ED Note-Physician ED Note-Physician Basic Information Opened in error Assessment/Plan Normal [facility] Comment on above: Result Comment: Elec tronically Signed By: Qian Jimenes, Darshan Ibrahim\.br\Date and Time Signed: 11/15/24 15:23 EST BMPon 11-16-2024 Anion gap [Moles/Vol] 10 mmol/L Normal 6-16 [facility] Comment on above: Performed By: #### 2 [id number] #### [facility] Laboratory [address] [place] [address] Calcium [Mass/Vol] 9.2 mg/dL Normal 8.9-11.1 [facility] Comment on above: Performed By: #### 2 [id number] #### [facility] [address] [place] [address] Chloride [Moles/Vol] 107 mmol/L Normal 101-111 [facility] Comment on above: Performed By: #### 2 [id number] #### [facility] [address] [place] [address] CO2 [Moles/Vol] 26 mmol/L Normal 21-31 [facility] Comment on above: Performed By: #### 2 [id number] #### [facility] [address] [place] [address] Creatinine [Mass/Vol] 0.7 mg/dL Normal 0.5-1.3 [facility] Comment on above: Performed By: #### 2 [id number] #### [facility] [address] [place] [address] Glucose [Mass/Vol] 105 mg/dL Normal 55-199 [facility] Comment on above: Performed By: #### 2 [id number] #### [facility] [address] [place] [address] Potassium [Moles/Vol] 4.0 mmol/L Normal 3.5-5.3 [facility] Comment on above: Performed By: #### 2 [id number] #### [facility] [address] [place] [address] Sodium [Moles/Vol] 139 mmol/L Normal 135-145 [facility] Comment on above: Performed By: #### 2 [id number] #### [facility] [address] [place] [address] Urea nitrogen [Mass/Vol] 23 mg/dL High 5-21 [facility] Comment on above: Performed By: #### 2 [id number] #### [facility] [address] [place] [address] Urea nitrogen/Creatinine [Mass ratio] 33 No Units High 10-20 [facility] Comment on above: Performed By: #### 2 [id number] #### [facility] [address] [place] [address] CBC w/ Auto Diffon 5 Basophils/100 WBC (Bld) 0.8 % Normal 0.0-2.0 [facility] Comment on above: Performed By: #### 2 [id number] #### [facility] [address] [place] [address] Basophils/Leukocyte s Auto (Bld) [Pure # fraction] 0.1 E9/L Normal 0.0-0.2 [facility] Comment on above: Performed By: #### 2 [id number] #### [facility] [address] [place] [address] Eosinophils (Bld) [#/Vol] 0.1 E9/L Normal 0.0-0.5 [facility] Comment on above: Performed By: #### 2 [id number] #### [facility] [address] [place] [address] Eosinophils/100 WBC (Bld) 1.5 % Normal 0.0-8.0 [facility] [facility] Comment on above: Performed By: #### 2 [id number] #### [facility] [address] [place] [address] Erythrocyte distribution width (RBC) [Ratio] 12.7 % Normal 10.9-14.2 [facility] Comment on above: Performed By: #### 2 [id number] #### [facility] [address] [place] [address] Hematocrit (Bld) [Volume fraction] 36.3 % Normal 34.0-46.0 [facility] Comment on above: Performed By: #### 2 [id number] #### [facility] [address] [place] [address] Hemoglobin (Bld) [Mass/Vol] 12.4 g/dL Normal 12.0-16.0 [facility] Comment on above: Performed By: #### 2 [id number] #### [facility] [address] [place] [address] Lymphocytes (Bld) [#/Vol] 0.9 E9/L Low 1.0-4.0 [facility] Comment on above: Performed By: #### 2 [id number] #### [facility] [address] [place] [address] Lymphocytes/100 WBC (Bld) 12.6 % Low 14.0-50.0 [facility] Comment on above: Performed By: #### 2 [id number] #### [facility] [address] [place] [address]39 MCH (RBC) [Entitic mass] 31.5 pg Normal 27.0-34.0 [facility] Comment on above: Performed By: #### 2 [id number] #### [facility] [address] [place] [address] MCHC (RBC) [Mass/Vol] 34.1 g/dL Normal 31.4-36.0 [facility] Comment on above: Performed By: #### 2 [id number] #### [facility] [address] [place] [address] 79[address] MCV (RBC) [Entitic vol] 92.4 fL Normal 80.0-100.0 [facility] Comment on above: Performed By: #### 2 [id number] #### [facility] [address] [place] [address] Monocytes (Bld) [#/Vol] 0.7 E9/L Normal 0.2-1.0 [facility] Comment on above: Performed By: #### 2 [id number] #### [facility] [address] [place] [address] Neutrophils (Bld) [#/Vol] 5.7 E9/L Normal 2.0-7.5 [facility] Comment on above: Performed By: #### 2 [id number] #### [facility] [address] [place] [address] Neutrophils/100 WBC (Bld) 76.3 % High 36.0-75.0 [facility] Comment on above: Performed By: #### 2 [id number] #### [facility] [address] [place] [address] Platelet mean volume (Bld) [Entitic vol] 8.2 fL Normal 6.4-10.8 [facility] Comment on above: Performed By: #### 2 [id number] #### [facility] [address] [place] [address] Platelets (Bld) [#/Vol] 229.0 E9/L Normal 150.0-500. 0 [facility] Comment on above: Performed By: #### 2 [id number] #### [facility] [address] [place] [address] RBC (Bld) [#/Vol] 3.9 E12/L Low 4.3-5.9 [facility] Comment on above: Performed By: #### 2 [id number] #### [facility] [address] [place] [address] WBC corrected for nucl RBC Auto (Bld) [#/Vol] 7.4 E9/L Normal 4.0-11.0 [facility] Comment on above: Performed By: #### 2 [id number] #### [facility] [address] [place] [address] Discharge Note-Nursingon Discharge Note-Nursing Discharge Note-Nursing CHLOE AGARWAL :1955 Visit Date:11/15/2024 Inpatient Discharge Instructions Your Care Team Admitting Physician - Aileen RENEE MD Consulting Physician - [facility] Cardio, XXXX Bryant CANTRELL, Baldomero Reason for Your Visit chest pain Your Diagnosis Chest pain Non-cardiac chest pain HTN (hypertension) Chronic GERD Chest pain Tests Performed Echo Transthoracic Complete XR Chest Single View This Is Your Medications List Misc Prescription (Adult Blood Pressure Monitor with [...] after Discharge Follow Up with Bryant CANTRELL, STAN Alexandre When: Within 1 to 2 weeks Comments: Call for followup appointment Where: Medications What How Much When Why Instructions Next Dose Changed metoprolol (metoprolol succinate 50 mg ER Tab) 1 Tablets By Mouth Every day Pickup at [facility] 11/17 @ 9 am Unchanged clonidine [...] GERD 11/16 @ 9 pm Pharmacy Information [facility]: [address] [place], [place] [id number] [phone] Test Results CBC BMP WBC: 7.4 E9/L [...] An injur (more content not included)... Normal [facility] Interdisciplinary Note - Mario e Manageron 11-16-2024 Interdisciplinary Note - Acute Coordinator Interdisciplinary Note - Acute Coordinator CRM to room 315 Patient is awake, alert and oriented. Patient is from home with her Spouse. He is her ride at [place]. Patient verified PCP, DME and insurance. Patient [...] test today. Patient declines any concerns to [place] home. Patient declines any needs for DME, HH or Paramed. Patient was provided CRM contact, white board updated. Patient is a possible DC if cardiac work up negative Normal [facility] Comment on above: Result Comment: Elec tronically Signed By: Leonila Vasquez\.br\Date and Time Signed: 11/16/24 11:14 EST eGFRon 11-16-2024 eGFR 95 mL/min/1.73 m2 Normal >=59 [facility] Comment on above: Performed By: #### 1 [id number] #### [facility] [address] [place] [address] BMPon 11-15-2024 Anion gap [Moles/Vol] 12 mmol/L Normal 6-16 [facility] Comment on above: Performed By: #### 2 [id number] #### [facility] [address] [place] [address] Calcium [Mass/Vol] 9.4 mg/dL Normal 8.9-11.1 [facility] Comment on above: Performed By: #### 2 [id number] #### [facility] [address] [place] [address] Chloride [Moles/Vol] 105 mmol/L Normal 101-111 [facility] Comment on above: Performed By: #### 2 [id number] #### [facility] [address] [place] [address] CO2 [Moles/Vol] 26 mmol/L Normal 21-31 [facility] Comment on above: Performed By: #### 2 [id number] #### [facility] [address] [place] [address] Creatinine [Mass/Vol] 1.0 mg/dL Normal 0.5-1.3 [facility] Comment on above: Performed By: #### 2 [id number] #### [facility] [address] [place] [address] Glucose [Mass/Vol] 101 mg/dL Normal 55-199 [facility] Comment on above: Performed By: #### 2 [id number] #### [facility] [address] [place] [address] Potassium [Moles/Vol] 3.7 mmol/L Normal 3.5-5.3 [facility] Comment on above: Performed By: #### 2 [id number] #### [facility] [address] [place] [address] Sodium [Moles/Vol] 139 mmol/L Normal 135-145 [facility] Comment on above: Performed By: #### 2 [id number] #### [facility] [address] [place] [address] Urea nitrogen [Mass/Vol] 27 mg/dL High 5-21 [facility] Comment on above: Performed By: #### 2 [id number] #### [facility] [address] [place] [address] Urea nitrogen/Creatinine [Mass ratio] 27 No Units High 10-20 [facility] Comment on above: Performed By: #### 2 [id number] #### [facility] [address] [place] [address] CBC w/ Auto Diffon 5 Basophils/100 WBC (Bld) 0.9 % Normal 0.0-2.0 [facility] Comment on above: Performed By: #### 2 [id number] #### [facility] [address] [place] [address] Basophils/Leukocyte s Auto (Bld) [Pure # fraction] 0.1 E9/L Normal 0.0-0.2 [facility] Comment on above: Performed By: #### 2 [id number] #### [facility] [address] [place] [address] Eosinophils (Bld) [#/Vol] 0.1 E9/L Normal 0.0-0.5 [facility] Comment on above: Performed By: #### 2 [id number] #### [facility] [address] [place] [address] Eosinophils/100 WBC (Bld) 1.2 % Normal 0.0-8.0 [facility] Comment on above: Performed By: #### 2 [id number] #### [facility] [address] [place] [address] Erythrocyte distribution width (RBC) [Ratio] 12.5 % Normal 10.9-14.2 [facility] Comment on above: Performed By: #### 2 [id number] #### [facility] [address] [place] [address] Hematocrit (Bld) [Volume fraction] 38.3 % Normal 34.0-46.0 [facility] Comment on above: Performed By: #### 2 [id number] #### [facility] [address] [place] [address] Hemoglobin (Bld) [Mass/Vol] 13.2 g/dL Normal 12.0-16.0 [facility] Comment on above: Performed By: #### 2 [id number] #### [facility] [address] [place] [address] Lymphocytes (Bld) [#/Vol] 1.3 E9/L Normal 1.0-4.0 [facility] Comment on above: Performed By: #### 2 284351 #### [facility] [address] [place] [address] Lymphocytes/100 WBC (Bld) 14.1 % Normal 14.0-50.0 [facility] Comment on above: Performed By: #### 2 [id number] #### [facility] [address] [place] [address] MCH (RBC) [Entitic mass] 31.3 pg Normal 27.0-34.0 [facility] Comment on above: Performed By: #### 2 [id number] #### [facility] [address] [place] [address]28 MCHC (RBC) [Mass/Vol] 34.3 g/dL Normal 31.4-36.0 [facility] Comment on above: Performed By: #### 2 [id number] #### [facility] [address] [place] [address] MCV (RBC) [Entitic vol] 91.1 fL Normal 80.0-100.0 [facility] Comment on above: Performed By: #### 2 135603 #### [facility] [address] [place] [address] Monocytes (Bld) [#/Vol] 0.7 E9/L Normal 0.2-1.0 [facility] Comment on above: Performed By: #### 2 [id number] #### [facility] [address] [place] [address] Neutrophils (Bld) [#/Vol] 6.8 E9/L Normal 2.0-7.5 [facility] Comment on above: Performed By: #### 2 [id number] #### [facility] [address] [place] [address] Neutrophils/100 WBC (Bld) 75.8 % High 36.0-75.0 [facility] Comment on above: Performed By: #### 2 [id number] #### [facility] [address] [place] [address] Platelet 259.0 E9/L Normal 150.0-500. 0 [facility] Comment on above: Performed By: #### 2 [id number] #### [facility] [address] [place] [address] Platelet mean volume (Bld) [Entitic vol] 7.6 fL Normal 6.4-10.8 [facility] Comment on above: Performed By: #### 2 [id number] #### [facility] [address] [place] [address] RBC (Bld) [#/Vol] 4.2 E12/L Low 4.3-5.9 [facility] Comment on above: Performed By: #### 2 [id number] #### [facility] [address] [place] [address] WBC corrected for nucl RBC Auto (Bld) [#/Vol] 9.0 E9/L Normal 4.0-11.0 [facility] Comment on above: Performed By: #### 2 [id number] #### [facility] [address] [place] [address] D-Dimeron 11-15-2024 Fibrin D-dimer FEU (PPP) [Mass/Vol] 393 [id number] Normal 215-500 [facility] Comment on above: Result Comment: This assay [...] infections Liver cirrhosis Performed By: #### 2 [id number] #### [facility] [address] [place] [address] ED Clinical Summaryon 2024 ED Clinical Summary ED Clinical Summary [address] [address] ED Clinical Summary Person Information Name: CHLOE AGARWAL [facility] Age: 69 Years : 1955 Sex: Female Language: Cambodian PCP: Vick Mcghee MD Marital Status: Visit Id: Visit Reason: Chest pain; CHEST PAIN, UPPER ABD PAIN Speciality: Acuity: 2 Enc Type: Observation Med Service: Medical Arrival: 11/15/2024 13:13:47 Discharge: LOS: 000 03:45 Checkin: 11/15/2024 13:13:47 Checkout: 11/15/2024 16:58:54 Dispo Type: Admitted as IP to this [facility] EVENTS: Event Name Event Status Request [...] Meds Admin Request 11/15/2024 16:55:38 AD[address]ESS: [address] [id number] PHYS DOC NOTES: MEDICAL INFORMATION: Prescriptions Given: [...] chest pain; 3:HTN (hypertension); 4:Chronic GERD Normal [facility] ED Note-Physicianon 11-15-19 ED Note-Physician ED Note-Physician [...] and Complexity of Problems Differential Diagnosis: [] [facility] Data External documents reviewed: [] My EKG [...] 81 mg (more content not included)... Normal [facility] Comment on above: Result Comment: Elec tronically Signed By: Qian Jimenes, Darshan H\.br\Date and Time Signed: 11/15/24 17:14 EST ED Note-Physician ED Note-Physician Basic Information Opened in error Assessment/Plan Normal [facility] Comment on above: Result Comment: Elec tronically Signed By: Qian Jimenes, Astrit H\.br\Date and Time Signed: 11/15/24 15:23 EST ED Patient Education Noteon 11-15-2024 ED Patient Education Note ED Patient Education Note Normal [facility] ED Patient Summaryon 025 ED Patient Summary ED Patient Summary [place] [id number] Patient Discharge Instructions Person Information Name: CHLOE AGARWAL Age: 69 Years Arrival Date: 11/15/2024 13:13:47 Discharge Diagnosis: 1:Chest pain; 2:Non-cardiac chest pain; 3:HTN (hypertension); 4:Chronic GERD Primary Care Physician: Vick Mcghee MD Provider Information Primary Provider: Darshan Laughlin M.D. [facility] Therapist:None The exam and treatment you received in the Emergency Department were for an urgent problem and are not intended as complete care. It is important that you follow up with a doctor, nurse practitioner, or physician???s sales assistant displays for ongoing care. If your symptoms become [...] opioids can be used to help relieve jhrfqlcc-lb-lagfxe pain and are often prescribed following a [...] struggling with addiction, tell your health manager medicare and ask for guidance or call [facility]???S [employer] Helpline at 7-429-246-HELP. v Source: [place] Department (more content not included)... Normal [facility] Lipase Levelon 11-15-2024 Lipase [Catalytic activity/Vol] 43 U/L Normal 13-58 [facility] Comment on above: Performed By: #### 2 [id number] #### [facility] [address] [place] [address] Magnesiumon 11-15-2024 Magnesium [Mass/Vol] 2.0 mg/dL Normal 1.3-2.4 [facility] Comment on above: Performed By: #### 2 [id number] #### [facility] [address] [place] [address] PT & PTTon 11-15-2024 aPTT Coag (PPP) [Time] 30.1 second(s) Normal 25.1-36.5 [facility] Comment on above: Result Comment: Para meter [...] the same coagulation reagent and instrumentation as [facility]. Currently there are no coagulation studies available worldwide for children to 14 days, and no normal ranges. Heparin therapeutic range (represented by Anti-Factor Xa activity of 0.2 - 0.4 U/mL) corresponds to PTT of 56.6 - 109.0 sec. Performed By: #### 1 [id number] #### [facility] [address] [place] [address] INR Coag (PPP) [Relative time] 0.98 {INR} Invalid Interpretation Code [facility] Comment on above: Result Comment: INR results are specifically intended to assess patients stabilized on long-term Anticoagulation therapy suggested INR???s ???Less Intensive Anticoagulation??? 2.0 ??? 3.0 Conventional Range 3.0 ??? 4.5 Performed By: #### 1 [id number] #### [facility] [address] [place] [address] PT Coag (PPP) [Time] 11.0 second(s) Normal 9.4-12.5 [facility] Comment on above: Result Comment: 15 d [...] the same coagulation reagent and instrumentation as [facility]. Currently there are no coagulation studies available worldwide for children to 14 days, and no normal ranges. Performed By: #### 1 [id number] #### [facility] [address] [place] [address] Troponin 0 Hr.on 11-15-2024 Troponin HS 4.50 pg/mL Low 10.10-27.1 0 [facility] Comment on above: Result Comment: The 95% CI (Confidence Interval) PPV (Positive Predictive Value) for myocardial infarction in females is 38 pg/mL, in males 51 pg/mL. The results should be used in conjunction with clinical conditions of myocardial infarction. (Access High Sensitivity Troponin I Instructions For Use, Demetra Jay, May 2018) Performed By: #### 1 [id number] #### [facility] [address] [place] [address] Troponin 1 Hr.on 11-15-2024 Troponin HS 4.80 pg/mL Low 10.10-27.1 0 [facility] Comment on above: Order Comment: 1441 Result Comment: The 95% CI (Confidence Interval) PPV (Positive Predictive Value) for myocardial infarction in females is 38 pg/mL, in males 51 pg/mL. The results should be used in conjunction with clinical conditions of myocardial infarction. (Access High Sensitivity Troponin I Instructions For Use, [employer], May 2018) Performed By: #### 1 [id number] #### [facility] [address] [place] [address] Troponin 3 Hr.on 11-15-2024 Troponin HS 5.20 pg/mL Low 10.10-27.1 0 [facility] Comment on above: Result Comment: The 95% CI (Confidence Interval) PPV (Positive Predictive Value) for myocardial infarction in females is 38 pg/mL, in males 51 pg/mL. The results should be used in conjunction with clinical conditions of myocardial infarction. (Access High Sensitivity Troponin I Instructions For Use, [employer], May 2018) Performed By: #### 1 [id number] #### [facility] [address] [place] [address] Troponin 6 Hr.on 11-15-2024 Troponin HS 6.30 pg/mL Low 10.10-27.1 0 [facility] Comment on above: Result Comment: The 95% CI (Confidence Interval) PPV (Positive Predictive Value) for myocardial infarction in females is 38 pg/mL, in males 51 pg/mL. The results should be used in conjunction with clinical conditions of myocardial infarction. (Access High Sensitivity Troponin I Instructions For Use, [employer], May 2018) Performed By: #### 1 [id number] #### [facility] [address] [place] [address] XR Chest Single Viewon 11-15 XR Chest Single View Exam Date/Time: 11/15/2024 13:43 EST Reason for Exam: Chest pain Report IMPRESSION: NO ACUTE CARDIOPULMONARY DISEASE. CLINICAL HISTORY: Chest pain COMPARISON: 05/08/2024 Findings: Osseous structures intact. Cardiopericardial silhouette normal. Pulmonary vasculature normal. Lungs clear. Ordering Provider: Darshan Laughlin FINAL REPORT Dictated: 11/15/2024 2:18 pm Signer Stephen CANTRELL Signed (Electronic Signature): 11/15/2024 2:18 pm Signed by: Stephen Baldwin MD Transcribed by: SCOTTY Technologist: CC, Normal [facility] eGFRon 11-15-2024 eGFR 62 mL/min/1.73 m2 Normal >=59 [facility] Comment on above: Performed By: #### 1 [id number] #### [facility] [address] [place] [address] Heart and Vascular Office/Cl inic Noteon 10-05-2024 [...] ventricular systolic pressure is 35 mmHg. [1] [facility] with Dr. Douglas on 09/17/2021: CONCLUSIONS: 1. [...] Daily, # 30 tab(s), Refills(s) 2, Pharmacy: [facility], 152, cm, 10/05/24 11:36:00 EST, Height/Length Dosing, 75.8, kg, 10/05/24 11:40:00 EST, Weight Dosing Follow-up with me in 3 months or sooner if needed Portions of this record may have been created with voice recognition artificial intelligence software, specifically [employer], [employer] and or [employer]). Substitutions may have occurred due to the [...] drainage Procedure (more content not included)... Normal [facility] Comment on above: Result Comment: Elec tronically Signed By: Richar GAMEZ, Lokesh Brito\.br\Date and Time Signed: 10/05/24 13:02 EST [place] 09-02-2024 L -- Specimen: [id number] Received: 09/05/24-1254 Status: VIRGILIO Bowen Num: [id number] Spec Type: Cytology Subm Dr: Ryan Vazquez MD Tissues: A FNA SLIDES NOPATH (RT THYROID) Procedures: Cyto Int and Re, PAPSTN/5 -- Age/ Patient Sex Location Account Attending Physician -- Chloe Agarwal 68/F [facility] [id number] NON STAFF -- SPEC NUM: [id number] RECD: 09/05/24 STATUS: VIRGILIO BOWEN NUM: [id number] MADHAV: 09/02/24 DR: Ryan Vazquez MD ENTERED: 09/05/[address]: Keesha,Lab SPEC TYPE: Cytology DEPT: [facility] ENTERED BY: [id number] RECV BY: [id number] ORDERED: Cyto Int and Re, PAPSTN/5 ORDERED: Cyto Int and Re, PAPSTN/5 Pathological Diagnosis Nodule, right thyroid, fine needle aspiration:? Unsatisfactory for evaluation. Too few epithelial cells. [place]?Category?I Clinical Information US guided FNA Gross Description Received fixed in Cytolyt is 30 ml very pale pink clear fixed fluid for cytology said to have been obtained as Right thyroid nodule mid. ThinPrep preparations are prepared for microscopic examination. Also received are 4 spray fixed smeared slides and a Veracyte vial stored at -20 for microscopic examination. (AL/ms) CPT Codes 24581 -- -- Specimen: [id number] Received: 09/05/24-1255 Status: VIRGILIO Bowen Num: [id number] Spec Type: Cytology Subm Dr: Ryan Vazquez MD Tissues: A FNA SLIDES NOPATH (RT THYROID) Procedures: Cyto Int and Re, PAPSTN/5 -- Patient: Chloe Agarwal [id number] (Continued) -- Signed (signature on file) Rhonda Bauer MD 09/06/24 1815 Normal [facility] CT Spine Lumbar w/ Contrasto [...] Landon Wilkinson MD Transcribed by: SCOTTY Technologist: GENEVIEVE Technical Comments GFR (mL/min/1/73m2) >60 Contrast: Isovue 300 Contrast amount in ml's: 0 Normal [facility] Main OR PACU II Recordon Main OR PACU II Record Main OR PACU II Record PACU Phase II Document Type FT Summary Primary Physician: NONE, XXXX Finalized Date/Time: 08/19/24 14:04:04 Pt. Name: ANYCHLOE/Sex: 1955 Female Med Rec #: [id number] Physician: SAM [facility] #: [id number] Pt. Type: O Room/Bed: / Admit/Disch: 08/19/24 [...] II Outcomes Met? Yes Last Modified By: Henrry DUMONT, Monika Leal 08/19/24 14:04:02 Post-Care Text: The patient demonstrates [...] Monika Sales RN Document Signatures Signed By: Mnoika Sales RN 08/19/24 14:[address] [facility] Main OR Preoperative Recordo n 08-19-2024 Main OR Preoperative Record Main OR Preoperative Record Holding Area Document Type FT Summary Primary Physician: NONE, XXXX Finalized Date/Time: 08/19/24 08:06:37 Pt. Name: ANYCHLOE/Sex: 1955 Female Med Rec #: [id number] Physician: SAM KAISER Financial #: [id number] Pt. Type: O Room/Bed: / Admit/Disch: 08/19/24 [...] Sales RN 08/19/24 08:06:35 Finalized By: Monika Slaes RN Document Signatures Signed By: Monika Sales RN 08/19/24 08:06 Monika Sales RN 08/19/24 08:[address] [facility] XR Myelography Lumbosacralon 08-19-2024 XR Myelography Lumbosacral [...] mGy = 43.30 DAP = 869.87 Normal [facility] Heart and Vascular Office/Cl inic Noteon 07-16-2024 [...] with voice recognition artificial intelligence software, specifically [employer], [employer] and or [employer]). Substitutions may have occurred due to the inherent limitations of voice recognition and artificial intelligence software. ATTESTATION: Documentation services were performed after patient or guardian consented to allow [facility] to record this visit. ASHLEIGH family reunification specialist and provider reviewed before signing. ASHLEIGH: Malinda Sands Follow-up No qualifying data available Problem List/Past Medical History Ongoing BMI 34.0-34.9,adult Chest pain due to GERD Chronic GERD Duodenogastric bile reflux Dysphagia Epigastric pain Gastritis H/O: osteoarthritis Hiatal hernia with gastroesophag (more content not included)... Normal [facility] Comment on above: Result Comment: Elec tronically Signed By: Vincent CANTRELL, Willie Tovar\.br\Date and Time Signed: 07/16/24 07:52 EDT\.br\Electronically Co-Signed By: Nanette Rodrigues\.br\Date and Time Co-Signed: 07/13/24 17:16 EDT XR Spine Lumbar Complete Inc giovana Bendion 07-11-2024 XR Spine Lumbar Complete Including Bendi [...] mGy = na DAP = na Normal [facility] C Urineon 05-10-2024 Bacteria identified Cx Nom [...] Locations R1: This test was performed at: [facility], [address] [place] [address], [phone] , [place], Normal [facility] Comment on above: Performed By: #### 2 [id number] #### [facility] [address] [place] [address] BB Draw & Holdon 05-08-2024 BB D&H Sample drawn for Blood Ba Normal [facility] Comment on above: Performed By: #### 1 [id number] #### [facility] [address] [place] [address] CBC w/ Auto Diffon Basophils/100 WBC (Bld) 1.1 % Normal 0.0-2.0 [facility] Comment on above: Performed By: #### 2 [id number] #### [facility] [address] [place] [address] Basophils/Leukocyte s Auto (Bld) [Pure # fraction] 0.1 E9/L Normal 0.0-0.2 [facility] Comment on above: Performed By: #### 2 [id number] #### [facility] [address] [place] [address] Eosinophils (Bld) [#/Vol] 0.1 E9/L Normal 0.0-0.5 [facility] Comment on above: Performed By: #### 2 [id number] #### [facility] [address] [place] [address] Eosinophils/100 WBC (Bld) 1.6 % Normal 0.0-8.0 [facility] Comment on above: Performed By: #### 2 [id number] #### [facility] [address] [place] [address] Erythrocyte distribution width (RBC) [Ratio] 14.1 % Normal 10.9-14.2 [facility] Comment on above: Performed By: #### 2 [id number] #### [facility] [address] [place] [address] Hematocrit (Bld) [Volume fraction] 38.2 % Normal 34.0-46.0 [facility] Comment on above: Performed By: #### 2 [id number] #### [facility] [address] [place] [address] Hemoglobin (Bld) [Mass/Vol] 13.9 g/dL Normal 12.0-16.0 [facility] Comment on above: Performed By: #### 2 [id number] #### [facility] [address] [place] [address] Lymphocytes (Bld) [#/Vol] 2.3 E9/L Normal 1.0-4.0 [facility] Comment on above: Performed By: #### 2 [id number] #### [facility] [address] [place] [address] Lymphocytes/100 WBC (Bld) 26.4 % Normal 14.0-50.0 [facility] Comment on above: Performed By: #### 2 [id number] #### [facility] [address] [place] [address] MCH (RBC) [Entitic mass] 32.6 pg Normal 27.0-34.0 [facility] Comment on above: Performed By: #### 2 [id number] #### [facility] [address] [place] [address] MCHC (RBC) [Mass/Vol] 36.3 g/dL High 31.4-36.0 [facility] Comment on above: Performed By: #### 2 [id number] #### [facility] [address] [place] [address] MCV (RBC) [Entitic vol] 89.9 fL Normal 80.0-100.0 [facility] Comment on above: Performed By: #### 2 [id number] #### [facility] [address] [place] [address] Monocytes (Bld) [#/Vol] 0.8 E9/L Normal 0.2-1.0 [facility] Comment on above: Performed By: #### 2 [id number] #### [facility] [address] [place] [address] Neutrophils (Bld) [#/Vol] 5.3 E9/L Normal 2.0-7.5 [facility] Comment on above: Performed By: #### 2 [id number] #### [facility] [address] [place] [address] Neutrophils/100 WBC (Bld) 61.6 % Normal 36.0-75.0 [facility] Comment on above: Performed By: #### 2 [id number] #### [facility] [address] [place] [address] Platelet 299.0 E9/L Normal 150.0-500. 0 [facility] Comment on above: Performed By: #### 2 [id number] #### [facility] [address] [place] [address] Platelet mean volume (Bld) [Entitic vol] 8.0 fL Normal 6.4-10.8 [facility] Comment on above: Performed By: #### 2 [id number] #### [facility] [address] [place] [address] RBC (Bld) [#/Vol] 4.3 E12/L Normal 4.3-5.9 [facility] Comment on above: Performed By: #### 2 [id number] #### [facility] [address] [place] [address] WBC corrected for nucl RBC Auto (Bld) [#/Vol] 8.6 E9/L Normal 4.0-11.0 [facility] Comment on above: Performed By: #### 2 [id number] #### [facility] [address] [place] [address] CHEMISTRYOrdered By: SYSTEM SYSTEM on 05-08-2024 Albumin [...] 111 mg/dL High 55 - 99 mg/dL [facility] POC Subsection Comment on above: Result Comment: Noti mitchell RN/ POC Device SN [id number] [address] [facility] POC Subsection POC User ID [id number] [address] [facility] POC Subsection POC Username CLAUS FRAZIER Invalid Interpretation Code [facility] POC Subsection CMPon 05-08-2024 Albumin [Mass/Vol] 4.4 g/dL Normal 3.3-5.0 [facility] Comment on above: Performed By: #### 2 [id number] #### [facility] [address] [place] [address] Albumin/Globulin (S) [Mass conc ratio] 1.5 Normal 1.1-2.2 [facility] Comment on above: Performed By: #### 2 [id number] #### [facility] [address] [place] [address] ALP [Catalytic activity/Vol] 59 Int._Unit/L Normal 21-98 [facility] Comment on above: Performed By: #### 2 [id number] #### [facility] [address] [place] [address] ALT No additional P-5'-P [Catalytic activity/Vol] 18 Int._Unit/L Normal 6-46 [facility] Comment on above: Performed By: #### 2 [id number] #### [facility] [address] [place] [address] Anion gap [Moles/Vol] 14 mmol/L Normal 6-16 [facility] Comment on above: Performed By: #### 2 [id number] #### [facility] [address] [place] [address] AST [Catalytic activity/Vol] 18 Int._Unit/L Normal 5-43 [facility] Comment on above: Performed By: #### 2 [id number] #### [facility] [address] [place] [address] Bilirubin [Mass/Vol] 1.1 mg/dL Normal 0.0-1.1 [facility] Comment on above: Performed By: #### 2 [id number] #### [facility] [address] [place] [address] Calcium [Mass/Vol] 9.9 mg/dL Normal 8.9-11.1 [facility] Comment on above: Performed By: #### 2 [id number] #### [facility] [address] [place] [address] Chloride [Moles/Vol] 103 mmol/L Normal 101-111 [facility] Comment on above: Performed By: #### 2 [id number] #### [facility] [address] [place] [address] CO2 [Moles/Vol] 26 mmol/L Normal 21-31 [facility] Comment on above: Performed By: #### 2 [id number] #### [facility] [address] [place] [address] Creatinine [Mass/Vol] 0.8 mg/dL Normal 0.5-1.3 [facility] Comment on above: Performed By: #### 2 [id number] #### [facility] [address] [place] [address] Globulin (S) [Mass/Vol] 2.9 g/dL Normal 1.4-4.0 [facility] Comment on above: Performed By: #### 2 [id number] #### [facility] [address] [place] [address] Glucose [Mass/Vol] 112 mg/dL Normal 55-199 [facility] Comment on above: Performed By: #### 2 [id number] #### [facility] [address] [place] [address] Potassium [Moles/Vol] 3.7 mmol/L Normal 3.5-5.3 [facility] Comment on above: Performed By: #### 2 [id number] #### [facility] [address] [place] [address] Protein [Mass/Vol] 7.3 g/dL Normal 6.0-7.8 [facility] Comment on above: Performed By: #### 2 [id number] #### [facility] [address] [place] [address] Sodium [Moles/Vol] 139 mmol/L Normal 135-145 [facility] Comment on above: Performed By: #### 2 [id number] #### [facility] [address] [place] [address] Urea nitrogen [Mass/Vol] 22 mg/dL High 5-21 [facility] Comment on above: Performed By: #### 2 [id number] #### [facility] [address] [place] [address] Urea nitrogen/Creatinine [Mass ratio] 28 No Units High 10-20 [facility] Comment on above: Performed By: #### 2 [id number] #### [facility] [address] [place] [address] COAGULATIONOrdered By: Yissel Amos on 05-08-2024 aPTT Coag (PPP) [Time] 30.0 s Normal 25.1 - 36.5 second(s) [facility] Auto Coag Comment on above: Interpretive Data: P jose 15 days - 4 weeks 1 [...] the same coagulation reagent and instrumentation as [facility]. Currently there are no coagulation studies available worldwide for children to 14 days, and no normal ranges. Heparin therapeutic range (represented by Anti-Factor Xa activity of 0.2 - 0.4 U/mL) corresponds to PTT of 56.6 - 109.0 sec. INR Coag (PPP) [Relative time] 0.97 {INR} Invalid Interpretation Code [facility] Auto Coag Comment on above: Interpretive Data: I NR results are specifically intended to assess patients stabilized on long-term Anticoagulation therapy suggested INR s Less Intensive Anticoagulation 2.0 3.0 Conventional Range 3.0 4.5 PT Coag (PPP) [Time] 10.9 s Normal 9.4 - 12.5 second(s) [facility] Auto Coag Comment on above: Interpretive Data: [...] the same coagulation reagent and instrumentation as [facility]. Currently there are no coagulation studies available [...] MD Transcribed by: SCOTTY Technologist: IVY Normal [facility] Capillary Glucose POCon 04-19 Glucose [Mass/Vol] 111 mg/dL High 55-99 [facility] Comment on above: Result Comment: Ovidio medrano RN/ Performed By: #### 2 [id number] #### [facility] [address] [place] [address] ED Clinical Summaryon 2023 ED Clinical Summary ED Clinical Summary [address] [address] ED Clinical Summary Person Information Name: CHLOE AGARWAL/[facility] Age: 68 Years : 1955 Sex: Female Language: Cambodian PCP: Vick Mcghee MD Marital Status: Visit [...] 09:45:49 05/08/2024 09:45:49 ADDRESS: [address] [id number] PHYS DOC NOTES: MEDICAL INFORMATION: Prescriptions Given: New Medications [facility], [address] [place] [id number], [phone] cephalexin (Keflex 500 mg Cap) 1 Capsules [...] Follow up: With: Address: When: Vick Mcghee [address] [place] [address], [address] [place] [id number] Business (1) In 3 days 05/11/2024 Comments: Call the office of your primary care doctor to arrange for follow-up within the above-stated timeframe. Follow-up with your primary care doctor about this ED visit. You should rev (more content not included)... Normal [facility] ED Note-Physicianon 05-08-20 ED Note-Physician ED Note-Physician [...] under a lot of stress as her twaqmc-uj-snr just and she has a to attend [...] Screen ECG 12 Lead Adult eGFR Extra Martíenz Tube Extra Martínez Tube Extra SST Tube [...] malignant neopla (more content not included)... Normal [facility] Comment on above: Result Comment: Elec tronically Signed By: Nelson Solares DO\.br\Date and Time Signed: 05/08/24 11:48 EDT ED Patient Summaryon 024 ED Patient Summary ED Patient Summary [address] [address] Patient Discharge Instructions Person Information Name: ANY CHLOE Arlen Age: 68 Years Arrival Date: 05/08/2024 07:15:15 Discharge Diagnosis: Acute UTI; Vertigo Primary Care Physician: Vick Mcghee MD Provider Information Primary Provider: Nelson Solares DO [facility] Therapist:None The exam and treatment you received in the Emergency Department were for an urgent problem and are not intended as complete care. It is important that you follow up with a doctor, nurse practitioner, or physician?s sales assistant displays for ongoing care. If your symptoms become worse or you do not improve as expected and you are unable to reach your usual health care provider, you should return to the Emergency Department. We are available 24 hours a day. CHLOE AGARWAL has been given the following list of patient education materials, prescriptions and follow-up instructions: Follow-up Instructions: With: Address: When: Vick Mcghee [address] [place] [address], [facility] [place] [address] Business (1) In 3 days 05/11/2024 Comments: [...] opioids can be used to help relieve xkopwfoj-gg-mgevog pain and are often prescribed following a [...] opioids in (more content not included)... Normal [facility] HEMATOLOGYOrdered By: SYSTEM SYSTEM on 05-08-2024 Basophils/100 [...] 05-08-2024 Magnesium [Mass/Vol] 2.2 mg/dL Normal 1.3-2.4 [facility] Comment on above: Performed By: #### 2 [id number] #### [facility] [address] [place] [address] PT & PTTon 05-08-2024 aPTT Coag (PPP) [Time] 30.0 second(s) Normal 25.1-36.5 [facility] Comment on above: Result Comment: Para meter [...] the same coagulation reagent and instrumentation as [facility]. Currently there are no coagulation studies available worldwide for children to 14 days, and no normal ranges. Heparin therapeutic range (represented by Anti-Factor Xa activity of 0.2 - 0.4 U/mL) corresponds to PTT of 56.6 - 109.0 sec. Performed By: #### 1 [id number] #### [facility] [address] [place] [address] INR Coag (PPP) [Relative time] 0.97 {INR} Invalid Interpretation Code [facility] Comment on above: Result Comment: INR results are specifically intended to assess patients stabilized on long-term Anticoagulation therapy suggested INR?s ?Less Intensive Anticoagulation? 2.0 ? 3.0 Conventional Range 3.0 ? 4.5 Performed By: #### 1 [id number] #### [facility] [address] [place] [address] PT Coag (PPP) [Time] 10.9 second(s) Normal 9.4-12.5 [facility] Comment on above: Result Comment: 15 d [...] the same coagulation reagent and instrumentation as [facility]. Currently there are no coagulation studies available worldwide for children to 14 days, and no normal ranges. Performed By: #### 1 [id number] #### [facility] [address] [place] [address] Troponin 0 Hr.on 05-08-2024 Troponin HS 6.20 pg/mL Low 10.10-27.1 0 [facility] Comment on above: Result Comment: The 95% CI (Confidence Interval) PPV (Positive Predictive Value) for myocardial infarction in females is 38 pg/mL, in males 51 pg/mL. The results should be used in conjunction with clinical conditions of myocardial infarction. (Access High Sensitivity Troponin I Instructions For Use, [employer], May 2018) Performed By: #### 1 [id number] #### [facility] [address] [place] [address] UA with Cult Rflxon 05-08-20 24 Bacteria Auto Ql (U) Trace Normal Trace [facility] Comment on above: Performed By: #### 4 [id number] #### [facility] [address] [place] [address] Bilirubin Ql (U) Negative Normal Negative [facility] Comment on above: Performed By: #### 4 [id number] #### [facility] [address] [place] [address] Clarity (U) Clear Normal Clear [facility] Comment on above: Performed By: #### 4 [id number] #### [facility] [address] [place] [address] Color (U) Colorless Abnormal Yellow [facility] Comment on above: Result Comment: Micr oscopic readings are only performed on those samples that meet specific criteria set forth by [facility]. Performed By: #### 4 [id number] #### [facility] [address] [place] [address] Epithelial cells.squamous Auto (Urine sed) [#/Area] 0-2 Invalid Interpretation Code [facility] Comment on above: Performed By: #### 4 [id number] #### [facility] [address] [place] [address] Glucose Ql (U) Negative Normal Negative [facility] Comment on above: Performed By: #### 4 [id number] #### [facility] [address] [place] [address] Hemoglobin Auto test strip (U) [Mass/Vol] Negative Normal Negative [facility] Comment on above: Performed By: #### 4 [id number] #### [facility] [address] [place] [address] Ketones Auto test strip Ql (U) Negative Normal Negative [facility] Comment on above: Performed By: #### 4 [id number] #### [facility] [address] [place] [address] Leukocyte esterase Auto test strip Ql (U) 250 Danielle/uL Abnormal Negative [facility] Comment on above: Performed By: #### 4 [id number] #### [facility] [address] [place] [address] Mucus Auto Ql (U) Negative Normal Negative [facility] Comment on above: Performed By: #### 4 [id number] #### [facility] [address] [place] [address] Nitrite Auto test strip Ql (U) Negative Normal Negative [facility] Comment on above: Performed By: #### 4 [id number] #### [facility] [address] [place] [address] pH (U) 7.0 [pH] Invalid Interpretation Code 5.0-9.0 [facility] Comment on above: Performed By: #### 4 [id number] #### [facility] [address] [place] [address] Protein Ql (U) Negative Normal Negative [facility] Comment on above: Performed By: #### 4 [id number] #### [facility] [address] [place] [address] RBC Ql (U) 0-3 Normal 0-3 [facility] Comment on above: Performed By: #### 4 [id number] #### [facility] [address] [place] [address] Specific gravity (U) [Rel density] 1.008 Invalid Interpretation Code 1.005-1.03 0 [facility] Comment on above: Performed By: #### 4 [id number] #### [facility] [address] [place] [address] Urobilinogen (U) [Mass/Vol] Negative Normal Negative [facility] Comment on above: Performed By: #### 4 [id number] #### [facility] [address] [place] [address] WBC Auto (Urine sed) [#/Area] 6-15 Abnormal 0-5 [facility] Comment on above: Performed By: #### 4 [id number] #### [facility] [address] [place] [address] Type of Urine collection method Clean Catch Normal [facility] Comment on above: Performed By: #### 4 [id number] #### [facility] [address] [place] [address] URINALYSISOrdered By: SYSTEM SYSTEM on 05-08-2024 Bacteria Auto Ql (U) Trace /HPF Normal Trace/HPF [facility] UA Auto SS Bilirubin Ql (U) Negative Normal Negativemg /dL FT UA Auto SS Clarity (U) Clear (05/08/24 8:05 AM) Normal Clear [facility] UA Auto SS Color (U) Colorless 1 *ABN* (05/08/24 8:05 AM) Invalid Interpretation Code Yellow [facility] UA Auto SS Comment on above: Interpretive Data: M icroscopic readings are only performed on those samples that meet specific criteria set forth by [facility]. Epithelial cells.squamous Auto (Urine sed) [#/Area] 0-2 graded/HPF Invalid Interpretation Code [facility] UA Auto SS Glucose Ql (U) Negative [...] Ql (U) 0-3 graded/HPF Normal 0-3graded/ HPF [facility] UA Auto SS Specific gravity (U) [Rel density] 1.008 *NA* (05/08/24 8:05 AM) Invalid Interpretation Code 1.005 - 1.030 [facility] UA Auto SS Urobilinogen (U) [Mass/Vol] Negative Normal Negativemg /dL [facility] UA Auto SS WBC Auto (Urine sed) [#/Area] 6-15 graded/HPF Invalid Interpretation Code 0-5graded/ HPF [facility] UA Auto SS URINALYSISOrdered By: Nelson Solares on 05-08-2024 UA Spec Desc Clean Catch (05/08/24 8:05 AM) Normal [facility] UA Auto SS Work Phone: XR Chest [...] mGy = . DAP = . Normal [facility] eGFRon 05-08-2024 eGFR 81 mL/min/1.73 m2 Normal >=59 [facility] Comment on above: Order Comment: Order added by Discern Expert. 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 Her cholesterol was low. She has been [...] before bed. I will obtain labs from [facility] to make sure she does not have abnormal electrolytes. 3. Sleep apnea. I will check with Dr. Husain regarding CPAP. Follow-up The patient will follow up in 6 months. Portions of this record may have been created with voice recognition artificial intelligence software, specifically [employer], [employer] and or [employer]). Substitutions may have occurred due to the inherent limitations of voice recognition and artificial intelligence software. ATTESTATION: Documentation services were performed after patient or guardian consented to allow [facility] to record this visit. ASHLEIGH family reunification specialist and provider reviewed before signing. ASHLEIGH: Phoebe Kandace Oseo. Follow-up No qualifying data available Problem List/Past Medical History Ongoing BMI 34.0-34.9,adult Chest pain due to GERD Chronic GERD Duodenogastric bile reflux Dysphagia Epigastric pain Gastritis H/O: osteoarthritis Hiatal hernia with gastroesophageal reflux HTN (hypertension) Osteoporosis Regurgitation of stomach contents Screenin (more content not included)... Normal [facility] Comment on above: Result Comment: Elec tronically Signed By: Vincent CANTRELL, Willie Tovar\.br\Date and Time Signed: 01/17/24 10:22 EDT\.br\Electronically Co-Signed By: Florinda Maguire\.br\Date and Time Co-Signed: 12/18/23 16:08 EST [facility] 12-21-2023 Outside [facility] [id number]#1.00TIFF Normal [facility] Physician Orderon 12-21-2023 Physician Order [id number]#1.00TIFF [facility] Ambulatory Visit Summaryon 0 12-18-2023 Ambulatory Visit Summary ANYCHLOE :1955 Visit Date:12/18/2023 Ambulatory Visit Instructions Your Care Team Attending Physician - Vincent CANTRELL, Willie Tovar Primary Care Physician - Vick Mcghee MD Referring Physician - NONE, XXXX This Is Your Medications List [facility] [place]cription (Adult Blood Pressure Monitor with Large [...] Tablets By Mouth At bedtime Pickup at [facility] Unchanged meloxicam (meloxicam 15 mg Tab) 1 Tablets By Mouth Every day Unchanged metoprolol (metoprolol 50 mg ER Tab) 2 Tablets By Mouth Every day Unchanged [facility] [place] (Adult Blood Pressure Monitor with Large [...] Mouth 2 times a day Pharmacy Information [facility]: [address] [place] [id number] [phone] Allergies gabapentin (Headache) lisinopril (Coughing) sulfa drugs [...] for choosing us for your care. Normal [facility] ALL THYROXINE (T4) FREEon Free T4 [Mass/Vol] 1.30 ng/dL 0.76 - 1.46 ng/dL [facility] ALL LIPID PROFILE (FASTING)o n 11-30-2023 CHOL HDL RATIO 3.0 [facility] Comment on above: 3.3 - 4.4 LOW RISK 4.4 - 7.1 AVERAGE RISK 7.1 - 11.0 MODERATE RISK >11.0 HIGH RISK Cholesterol [Mass/Vol] 177 mg/dL NINF - 200 mg/dL [facility] Cholesterol in HDL [Mass/Vol] 59 mg/dL 40 - 60 mg/dL [facility] Comment on above: > or =60 mg/dl - LOW CARDIOVASCULAR RISK <40 mg/dl - HIGH CARDIOVASCULAR RISK Magnesium [Mass/Vol] 96.8 mg/dL [facility] Comment on above: <100 mg/dl OPTIMAL 100-129 mg/dl NEAR OR ABOVE OPTIMAL 130-159 mg/dl BORDERLINE HIGH 160-189 mg/dl HIGH >190 mg/dl VERY HIGH Magnesium [Mass/Vol] 21.2 mg/dL [facility] Triglyceride [Mass/Vol] 106 mg/dL NINF - 150 mg/dL [facility] ALL THYROID STIM HORMONEon 0 11-30-2023 TSH Qn 0.028 m[IU]/L Low [facility] CCF CMP (CMP) (FOR REMOTE FH C USE)on 11-30-2023 Albumin [Mass/Vol] 3.6 g/dL 3.4 - 5.0 g/dL [facility] ALBUMIN GLOBULIN RATIO 1.0 [facility] ALP [Catalytic activity/Vol] 62 U/L 46 - 116 U/L [facility] ALT [Catalytic activity/Vol] 23 U/L 14 - 59 U/L [facility] Anion gap [Moles/Vol] 12.6 mmol/L [facility] AST [Catalytic activity/Vol] 17 U/L 15 - 37 U/L [facility] Bilirubin [Mass/Vol] 1.2 mg/dL High 0.2 - 1.0 mg/dL [facility] Calcium [Mass/Vol] 9.1 mg/dL 8.5 - 10. 1 mg/dL [facility] Chloride [Moles/Vol] 102 mmol/L 98 - 107 mmol/L [facility] CO2 [Moles/Vol] 30.4 mmol/L 21.0 - 32.0 mmol/L [facility] Creatinine [Mass/Vol] 0.99 mg/dL 0.55 - 1.02 mg/dL [facility] GFR/1.73 sq M.predicted CKD-EPI (S/P/Bld) [Vol rate/Area] >60 60 - PINF [facility] Globulin (S) [Mass/Vol] 3.6 g/dL [facility] Glucose [Mass/Vol] 110 mg/dL High 74 - 106 mg/dL [facility] Potassium [Moles/Vol] 4.0 mmol/L 3.5 - 5.1 mmol/L [facility] Protein [Mass/Vol] 7.2 g/dL 6.4 - 8.2 g/dL [facility] Sodium [Moles/Vol] 141 mmol/L 136 - 145 mmol/L [facility] TBH EGFR-NON AF UZBEK 56 Low 60 - PINF [facility] Urea nitrogen [Mass/Vol] 31.0 mg/dL High 7.0 - 18.0 mg/dL [facility] Urea nitrogen/Creatinine [Mass ratio] 31.3 mg/mg [facility] IGP,APTIMA HPV,AGE GDLNon AGE GDLN ACOG TESTING Note . [facility] Comment on above: TESTS RESULT FLAG UN ITS REF RANGE LAB Clinician Provided Cytology Information Source.............Cervix;Endocervix No. of containers..01 ThinPrep Vial Age Algo ACOG Micheal... Note 01 <21 or >65 or no age provided FLAG LEGEND: L-Low Normal,H-High Normal,LL-Alert Low,HH-Alert High <-Panic Low,>-Panic High,A-Abnormal,AA-Critical Abnormal Performed at: 01 =G [address] [address] Adelina Nunez MD, PAP IG (IMAGE GUIDED) Note . [facility] Comment on above: TESTS RESULT FLAG UN ITS REF RANGE LAB DIAGNOSIS: 02 NEGATIVE FOR INTRAEPITHELIAL LESION OR MALIGNANCY. Specimen adequacy: 02 Satisfactory for evaluation. Endocervical and/or squamous metaplastic cells (endocervical component) are present. Performed by: 02 Vicky Madsen, Party Planner (ASCP) . 02 Note: Note 02 The Pap smear is a screening test designed to aid in the detection of premalignant and malignant conditions of the uterine cervix. It is not a diagnostic procedure and should not be used as the sole means of detecting cervical cancer. Both false-positive and false-negative reports do occur. Test Methodology: Note 02 The [employer]or was unable to read this specimen. Therefore a manual review was performed. FLAG LEGEND: L-Low Normal,H-High Normal,LL-Alert Low,HH-Alert High <-Panic Low,>-Panic High,A-Abnormal,AA-Critical Abnormal Performed at: [address] [address] Adelina Nunez MD, Performed at: = - [address] [id number] Painter Drum: Adelina Nunez MD, Phone: [phone] Performed at: [facility] [address] [id number] Painter Drum: Adelina Nunez MD, Phone: [phone] BRUSH-SPATULA CERVIX ENDOCERVIX [facility] [place] [facility] [place] No Panel Informationon 11-30 Interpretation and review of laboratory results Abnormal [facility] Consent for Treatmenton Consent for Treatment [id number]#1.00TIFF Normal [facility] Consultation Noteon 11-20-19 24 Consultation Note Patient: [...] QID, # 120 tab(s), Refills(s) 3, Pharmacy: [facility], 152, cm, 04/03/23 9:20:00 EDT, Height/Length Dosing, 80, kg, 04/03/23 9:20:00 EDT, Weight Dosing Protonix 40 mg Tab-DR: 40 mg = 1 tab(s), Oral, BID, # 120 tab(s), Refills(s) 0, Pharmacy: [facility], 152.4, cm, 04/01/21 7:20:00 EDT, Height/Length Dosing, 85.5, kg, 04/01/21 7:20:00 EDT, Weight Dosing hydrochlorothiazide 12.5 mg Cap: 12.5 mg = 1 cap(s), Oral, Daily, # 30 cap(s), Refills(s) 6, Pharmacy: [facility], 152, cm, 11/17/23 11:29:00 EST, Height/Length Dosing, 79.6, kg, 11/17/23 11:29:00 EST, Weight Dosing losartan 100 mg Tab: 100 mg = 1 tab(s), Oral, Bedtime, # 90 tab(s), Refills(s) 1, Pharmacy: [facility], 152, cm, 07/14/23 9:26:00 EDT, Height/Length Dosing, 76.9, kg, 07/14/23 9:26:00 EDT, Weight Dosing pregabalin 25 mg Cap: 25 mg = 1 cap(s), Oral, BID, start with once a day for 3-5 days. If doing well can go to BID, # 60 cap(s), Refills(s) 0, Pharmacy: [facility], 152, cm, 10/26/23 13:07:00 EST, Height/Length [...] All Problems Chronic GERD / SNOMED CT 416045672 / Confirmed Unilateral primary osteoarthritis, right knee / SNOMED CT 9695384262 / Confirmed Gastritis / SNOMED CT 2097400 / Confirmed Vertigo / SNOMED CT 3130369054 / Confirmed BMI 34.0-34.9,adult / SNOMED CT 793451786 / Confirmed Regurgitation of stomach contents / SNOMED CT 374979450 / Confirmed Osteoporosis / SNOMED CT 292236341 / Confirmed HTN (hypertension) / SNOMED CT 7801629324 / Confirmed Dysphagia / SNOMED CT 00552291 / Confirmed Epigastric pain / SNOMED CT 736587562 / Confirmed Chest pain due to GERD / SNOMED CT 20853441 / Confirmed Screening for malignant neoplasm of colon / SNOMED CT 279226684 / Confirmed H/O: osteoarthritis / SNOMED CT 694784118 / Confirmed Hiatal hernia with gastroesophageal reflux / SNOMED CT 0659927436 / Confirmed Duodenogastric bile reflux / SNOMED CT 31658005 / Confirmed Sigmoid diverticulosis / SNOMED CT 3396029021 / Confirmed Tendonitis / SNOMED CT 21196176 / Confirmed Resolved: GERD - Gastro-esophageal reflux disease / SNOMED CT 6175392834 Resolved: Appendicitis / SNOMED CT 559837233 Resolved: Cough / SNOMED CT 08063718 Resolved: Sinus drainage / SNOMED CT 719183387 Canceled: GERD with apnea / SNOMED CT 1049198111 Objective Vital Signs 11/20/2023 13:11 EST Peripheral [...] extremity streng (more content not included)... Normal [facility] Comment on above: Result Comment: Elec tronically Signed By: Vicky Castillo PA-C\.br\Date and Time Signed: 11/20/23 13:40 EST Office/Clinic Note-Physician on 11-20-2023 Office/Clinic Note-Physician [id number]#1.00TIFF [facility] Patient Correspondenceon Patient Correspondence [id number]#1.00TIFF [facility] Consent for Treatmenton 10-21 Consent for Treatment [id number]#1.00TIFF [facility] Heart and Vascular Office/Cl inic Noteon 11-17-2023 Heart and Vascular Office/Clinic Note History of Present Illness Patient is a very pleasant 68-year-old hypertensive female, nondiabetic, non-smoker, referred to our office after she went to the emergency room on 09/02/2021 with abdominal pain radiating into her back. She reportedly had a stress test, echocardiogram and Holter monitor at [facility] prior to her ER visit on 09/02/2021. Troponins were negative x1, and she was assigned a heart score of 4 and discharged home. In addition the patient apparently had a syncopal episode several weeks prior to her presentation, but cannot recall whether she had any chest pain prior to her syncope.. Her echocardiogram done at [facility] on 08/20/2021 which showed left ventricular systolic [...] took place at an outside facility at [facility] on 09/03/2021 which was read as normal. [...] concerning lesion (more content not included)... Normal [facility] Comment on above: Result Comment: Elec tronically Signed By: MISAEL CANTRELL, Landon Mckinley\.br\Date and Time Signed: 11/17/23 11:44 EST Physician Orderon 11-17-2023 Physician Order [id number]#1.00TIFF Normal [facility] XR Pelvis 1 or 2 [facility] XR [...] mGy = na DAP = na Normal [facility] XR Spine Lumbosacral 2 or 3 [facility] [...] mGy = na DAP = na Normal [facility] Consent for Treatmenton Consent for Treatment [id number]#1.00TIFF Normal [facility] Consent for Treatment [id number]#1.00TIFF Normal [facility] Consultation Noteon 10-26-19 24 Consultation Note Patient: [...] QID, # 120 tab(s), Refills(s) 3, Pharmacy: [facility], 152, cm, 04/03/23 9:20:00 EDT, Height/Length Dosing, 80, kg, 04/03/23 9:20:00 EDT, Weight Dosing Protonix 40 mg Tab-DR: 40 mg = 1 tab(s), Oral, BID, # 120 tab(s), Refills(s) 0, Pharmacy: [facility], 152.4, cm, 04/01/21 7:20:00 EDT, Height/Length Dosing, 85.5, kg, 04/01/21 7:20:00 EDT, Weight Dosing losartan 100 mg Tab: 100 mg = 1 tab(s), Oral, Bedtime, # 90 tab(s), Refills(s) 1, Pharmacy: [facility], 152, cm, 07/14/23 9:26:00 EDT, Height/Length Dosing, 76.9, kg, 07/14/23 9:26:00 EDT, Weight Dosing metoprolol 50 mg ER Tab: 50 mg = 1 tab(s), Oral, Daily, # 90 tab(s), Refills(s) 1, Pharmacy: [facility], 152, cm, 07/14/23 9:26:00 EDT, Height/Length Dosing, 76.9, kg, 07/14/23 9:26:00 EDT, Weight Dosing pregabalin 25 mg Cap: 25 mg = 1 cap(s), Oral, BID, start with once a day for 3-5 days. If doing well can go to BID, # 60 cap(s), Refills(s) 0, Pharmacy: [facility], 152, cm, 10/26/23 13:07:00 EST, Height/Length Dosing, 70.5, kg, 10/26/23 13:07:00 EST, Weigh... Documented Medications Documented Aleve: Refills(s) 0 Multi Vitamin+: Oral, Daily, Refill(s) 0 alendronate 70 mg Tab: TAKE 1 TABLET BY MOUTH 30 MINUTES BEFORE first food once a week, Prophylaxis ropinirole: 0.5 mg, Oral, Refills(s) 0 Problem list: All Problems Chronic GERD / SNOMED CT 251840010 / Confirmed Unilateral primary osteoarthritis, right knee / SNOMED CT 6572424967 / Confirmed Gastritis / SNOMED CT 2563413 / Confirmed Vertigo / SNOMED CT 4145125844 / Confirmed BMI 34.0-34.9,adult / SNOMED CT 328575420 / Confirmed Regurgitation of stomach contents / SNOMED CT 254075121 / Confirmed Osteoporosis / SNOMED CT 052517955 / Confirmed HTN (hypertension) / SNOMED CT 1035573652 / Confirmed Dysphagia / SNOMED CT 30007691 / Confirmed Epigastric pain / SNOMED CT 552047563 / Confirmed Chest pain due to GERD / SNOMED CT 75110300 / Confirmed Screening for malignant neoplasm of colon / SNOMED CT 577319698 / Confirmed H/O: osteoarthritis / SNOMED CT 084290468 / Confirmed Hiatal hernia with gastroesophageal reflux / SNOMED CT 7263771215 / Confirmed Duodenogastric bile reflux / SNOMED CT 59023293 / Confirmed Sigmoid diverticulosis / SNOMED CT 2719378081 / Confirmed Tendonitis / SNOMED CT 07900425 / Confirmed Resolved: GERD - Gastro-esophageal reflux disease / SNOMED CT 5267984952 Resolved: Appendicitis / SNOMED CT 458719602 Resolved: Cough / SNOMED CT 09323165 Resolved: Sinus drainage / SNOMED CT 910813595 Canceled: GERD with apnea / SNOMED CT 8914433813 Objective Vital Signs 10/26/2023 12:48 EST Peripheral Pulse Rate 66 bpm Respiratory Rate 20 br/min Systolic Blood Pressure 143 mmHg HI Diastolic Blood Pressure 88 mmHg Mean Arterial Pressure, Cuff 106 mmHg General: Alert and oriented, No acute distress. Overweight Eye: Normal conjunctiva. HENT: Normocephalic, Normal hearing. Cardiovascular: No edema. Musculoskeletal Nor (more content not included)... Normal [facility] Comment on above: Result Comment: Elec tronically Signed By: Anna GAMEZ, Vicky\.br\Date and Time Signed: 10/26/23 13:22 EST Legal Correspondence Officeo n 10-26-2023 Legal Correspondence Office [id number]#1.00TIFF Normal [facility] Office/Clinic Note-Physician on 10-26-2023 Office/Clinic Note-Physician [id number]#1.00TIFF Normal [facility] Patient Correspondenceon Patient Correspondence [id number]#1.00TIFF Normal [facility] Patient Correspondence [id number]#1.00TIFF Normal [facility] Patient Correspondence [id number]#1.00TIFF Normal [facility] Patient Correspondence [id number]#1.00TIFF Normal [facility] Patient History Officeon Patient History Office [id number]#1.00TIFF Normal [facility] Physician Orderon 10-26-2023 Physician Order [id number]#1.00TIFF Normal [facility] Physician Order [id number]#1.00TIFF [facility] Consent for Procedure/Surger yon 10-07-2023 Consent for Procedure/Surgery [id number]#1.00TIFF [facility] Consent for Treatmenton 09-19 Consent for Treatment [id number]#1.00TIFF Normal [facility] Discharge Instructionson Discharge Instructions [id number]#1.00TIFF Normal [facility] IntraOperative Documentson 1 12-08-2022 IntraOperative Documents [id number]#1.00TIFF Normal [facility] Main OR Intraoperative Recor don 10-07-2023 Main OR Intraoperative Record IntraOp Document Type FTPM Summary Primary Physician: Claudio Monroe DO Finalized Date/Time: 10/07/23 09:50:14 Pt. Name: ANYCHLOE/Sex: 1955 Female Med Rec #: [id number] Physician: Claudio Monroe DO Financial #: [id number] Pt. Type: P Room/Bed: / Admit/Disch: 10/07/23 08:38:44 - Institution: Case Times FTPM Entry 1 Patient Times In Room 10/07/23 09:41:00 Out Room 10/07/23 09:50:00 Procedure Times Start 10/07/23 09:44:00 Stop 10/07/23 09:49:00 Anesthesia Times Last Modified By: Lashanda Durant RN 10/07/23 09:49:58 Case Attendance FTPM Entry 1 Entry 2 Entry 3 Case Attendee Claudio Monroe DO, RN, Lashanda Erickson RN, [facility] Role Performed Surgeon - Primary Clinical Laboratory Assistant - Primary Scrub - Primary Time In 10/07/23 09:41:00 10/07/23 09:41:00 10/07/23 09:41:00 Time Out 10/07/23 09:50:00 10/07/23 09:50:00 10/07/23 09:50:00 Procedure TRANSFORAMINAL EPIDURAL TRANSFORAMINAL EPIDURAL TRANSFORAMINAL EPIDURAL STEROID INJECTIO(Right) STEROID INJECTIO(Right) STEROID INJECTIO(Right) Comments Last Modified By: Bhargav DUMONT, Lashanda Durant RN, Lashanda Elizalde RN 10/07/23 09:49:59 10/07/23 09:49:59 10/07/23 09:49:59 Entry 4 Case Attendee Faustino Dorado Role Performed Broom Builder Time In 10/07/23 09:41:00 Time Out [...] and tissue Entry 1 Skin Integrity Intact, [place], Warm, and Skin Abnormality No Dry Outcomes [...] Press Point (more content not included)... Normal [facility] Main OR Preoperative Recordo n 10-07-2023 Main OR Preoperative Record Holding Area Document Type FTPM Summary Primary Physician: Claudio Monroe DO Finalized Date/Time: 10/07/23 09:09:26 Pt. Name: CHLOE AGARWAL/Sex: 1955 Female Med Rec #: [id number] Physician: Claudio Monroe DO Financial #: [id number] Pt. Type: P Room/Bed: / Admit/Disch: 10/07/23 [...] By: Shea Aguirre RN 10/07/23 09:[address] [facility] Patient Correspondenceon Patient Correspondence [id number]#1.00TIFF [facility] Consent for Treatmenton Consent for Treatment [id number]#1.00TIFF [facility] Consultation Noteon 09-22-20 Consultation Note Patient: [...] QID, # 120 tab(s), Refills(s) 3, Pharmacy: [facility], 152, cm, 04/03/23 9:20:00 EDT, Height/Length Dosing, 80, kg, 04/03/23 9:20:00 EDT, Weight Dosing Medrol 4 mg Tab: = 1 packet(s), Oral, As Directed, as directed on package labeling, X 6 day(s), # 21 tab(s), Refills(s) 0, Pharmacy: [facility], 152, cm, 09/22/23 11:39:00 EST, Height/Length Dosing, 70.5, kg, 09/22/23 11:39:00 EST, Weight Dosing Protonix 40 mg Tab-DR: 40 mg = 1 tab(s), Oral, BID, # 120 tab(s), Refills(s) 0, Pharmacy: [facility], 152.4, cm, 04/01/21 7:20:00 EDT, Height/Length Dosing, 85.5, kg, 04/01/21 7:20:00 EDT, Weight Dosing losartan 100 mg Tab: 100 mg = 1 tab(s), Oral, Bedtime, # 90 tab(s), Refills(s) 1, Pharmacy: [facility], 152, cm, 07/14/23 9:26:00 EDT, Height/Length Dosing, 76.9, kg, 07/14/23 9:26:00 EDT, Weight Dosing metoprolol 50 mg ER Tab: 50 mg = 1 tab(s), Oral, Daily, # 90 tab(s), Refills(s) 1, Pharmacy: [facility], 152, cm, 07/14/23 9:26:00 EDT, Height/Length Dosing, 76.9, kg, 07/14/23 9:26:00 EDT, Weight Dosing Documented Medications Documented Aleve: Refills(s) 0 Multi Vitamin+: Refill(s) 0 alendronate 70 mg Tab: TAKE 1 TABLET BY MOUTH 30 MINUTES BEFORE first food once a week, Prophylaxis ropinirole: 0.5 mg, Oral, Refills(s) 0 Problem list: All Problems BMI 34.0-34.9,adult / SNOMED CT 883188743 / Confirmed Chest pain due to GERD / SNOMED CT 90149162 / Confirmed Chronic GERD / SNOMED CT 161323898 / Confirmed Duodenogastric bile reflux / SNOMED CT 49760108 / Confirmed Dysphagia / SNOMED CT 34003963 / Confirmed Epigastric pain / SNOMED CT 329075655 / Confirmed Gastritis / SNOMED CT 0332841 / Confirmed H/O: osteoarthritis / SNOMED CT 197831321 / Confirmed Hiatal hernia with gastroesophageal reflux / SNOMED CT 8047671249 / Confirmed HTN (hypertension) / SNOMED CT 3265736101 / Confirmed Osteoporosis / SNOMED CT 707859182 / Confirmed Regurgitation of stomach contents / SNOMED CT 783849346 / Confirmed Screening for malignant neoplasm of colon / SNOMED CT 079099510 / Confirmed Sigmoid diverticulosis / SNOMED CT 5202687739 / Confirmed Tendonitis / SNOMED CT 72843837 / Confirmed Unilateral primary osteoarthritis, right knee / SNOMED CT 1800602289 / Confirmed Vertigo / SNOMED CT 4787750060 / Confirmed Objective Vital Signs 09/22/2023 11:23 [...] after she (more content not included)... Normal [facility] Comment on above: Result Comment: Elec tronically Signed By: Valeri CANTRELL, Demar Leal\.br\Date and Time Signed: 09/22/23 11:54 EST Office/Clinic Note-Physician on 09-22-2023 Office/Clinic Note-Physician [id number]#1.00TIFF Normal [facility] Patient Correspondenceon Patient Correspondence [id number]#1.00TIFF Normal [facility] Patient Correspondence [id number]#1.00TIFF Normal [facility] Patient History Officeon Patient History Office [id number]#1.00TIFF [facility] Physician Orderon 07-28-2023 Physician Order [id number]#1.00TIFF [facility] Consenton 07-24-2023 Consent [id number]#1.00TIFF Normal [facility] Patient Eval Forms Officeon 07-24-2023 Patient Eval Forms Office [id number]#1.00TIFF Normal [facility] Patient Eval Forms Office [id number]#1.00TIFF Normal [facility] Consent for Treatmenton 10 Consent for Treatment [id number]#1.00TIFF Normal [facility] CHEMISTRYOrdered By: SYSTEM SYSTEM on 06-05-2023 Anion gap [Moles/Vol] 12 mmol/L Normal 6 - 16 mEq/L [facility] Remisol Calcium [Mass/Vol] 9.5 mg/dL Normal 8.9 - 11. 1 mg/dL FT Remisol Chloride [Moles/Vol] 107 mmol/L Normal 101 - 111 mmol/L FT Remisol CO2 [Moles/Vol] 26 mmol/L Normal 21 - 31 mmol/L FT Remisol Creatinine [Mass/Vol] 0.7 mg/dL Normal 0.5 - 1.3 mg/dL [facility] Remisol GFR/1.73 sq M.predicted among non-blacks MDRD (S/P/Bld) [Vol rate/Area] 96 mL/min/1.73 m2 Normal >=59mL/min /1.[address] [facility] Chem S Glucose [Mass/Vol] 100 mg/dL Normal [...] ratio] 27 mg/mg High 10 - 20 FT Remisol CHEMISTRYOrdered By: Lab ROP User on 06-05-2023 Glucose [Mass/Vol] 109 mg/dL High 55 - 99 mg/dL [facility] POC Subsection Comment on above: Result Comment: Kacey wiley Meter POC Device SN [id number] Invalid Interpretation Code FT POC Subsection POC User ID [id number] Invalid Interpretation Code [facility] POC Subsection POC Username SHARITA VARGAS Invalid Interpretation Code [facility] POC Subsection HEMATOLOGYOrdered By: SYSTEM SYSTEM on [...] 4.5 E12/L Normal 4.3 - 5.9 E12/L [facility] HemeAutoSS WBC corrected for nucl RBC Auto (Bld) [#/Vol] 7.5 E9/L Normal 4.0 - 11.0 E9/L FT HemeAutoSS CREATININEon 03-03-2023 Creatinine [Mass/Vol] 0.89 mg/dL Normal 0.55-1.02 [facility] Comment on above: Performed By: #### C LING #### [facility] [address] [place] [address] Dr. Lorraine Scott EGFR-AF UZBEK >60 Normal >=60 [facility] Comment on above: Performed By: #### C LING #### [facility] [address] [place] [address] Dr. Lorraine Scott EGFR-NON AF UZBEK >60 Normal >=60 [facility] Comment on above: Performed By: #### C LING #### [facility] [address] [place] [address] ABD/PELV W CONon [...] by: RYAN VAZQUEZ Date: 2023-03-03 10:08 Normal [facility] US SINGLE QUAD RT UPPERon [...] evidence of acute cholecystitis. Electronically authenticated by: RYANKRISTIN VAZQUEZ Date: 2023-02-09 11:57 Normal [facility] Covid-19 PCR (CVDTB)on 10-19 SARS-CoV-2 (COVID-19) RNA SHAHEEN+probe Ql (Unsp spec) Detected Abnormal NOT DETECTED [facility] Comment on above: Result Comment: This test is not yet approved or cleared by the [place] FDA. When there are no FDA-approved or cleared tests available, and other criteria are met, FDA can make tests available under an emergency access mechanism called an Emergency Use Authorization (EUA). The EUA for this test is supported by the Chief Internal Auditor of Health and Human Service's declaration that [...] longer be used). Performed By: #### C VDTBH #### [facility] [address] [place] [address] Dr. Lorraine Scott INFLUENZA A AND B AGon 11-05 INFLUANEGH SEE BELOW Normal [facility] Comment on above: Result Comment: Nega tive for Flu A protein angiten. Infection due to Flu A cannot be ruled out. Flu A angiten in the sample may be below the detection limit of the test. Performed By: #### I NFLUAB #### [facility] [address] [place] [address] Dr. Lorraine Scott INFLUBNEG SEE BELOW Normal [facility] Comment on above: Result Comment: Nega tive for Flu B protein antigen. Infection due to Flu B cannot be ruled out. Flu B antigen in the sample may be below the detection limit of the test. Performed By: #### I NFLUAB #### [facility] [address] [place] [address] Dr. Lorraine Scott INFLUENZA A AG Negative Normal NEGATIVE SEE COMMENT [facility] Comment on above: Performed By: #### I NFLUAB #### [facility] [address] [place], [place] [address] Dr. Lorraine Scott INFLUENZA B AG Negative Normal NEGATIVE SEE COMMENT [facility] Comment on above: Performed By: #### I NFLUAB #### [facility] [address] [place], [place] [address] Dr. Lorraine Scott MG MAMM SCREEN 3D LAURA CADon 10-22-2022 MG MAMM SCREEN 3D LAURA CAD Patient: CHLOE AGARWAL Exam Date: 10/22/2022 : 1955 Gender:F Ordering : DR JUAN CARLOS NARVAEZ . Admission #: [id number] Family : Order #: [id number] CLICK HERE TO VIEW EXAM RADIOLOGY REPORT [...] Treatments None Family Cancers None LOCATION: [facility] BREAST COMPOSITION: Scattered areas fibroglandular [...] M.D. on 10/23/2022 at 08:41 Normal [facility] XR DEXA BONE DENSITYon 10-22 [...] by: RYAN VAZQUEZ Date: 2022-10-22 09:12 Normal [facility] PAP ACOG PANEL 2: 30 to 65on 10-03-2022 . . Normal [facility] Comment on above: Result Comment: Perf ormed at: WB Performed By: #### 4 [id number] #### [facility] [address] [place] [address] [address] Lorraine Scott Age Gdln ACOG Testing 30-65 [facility] Comment on above: Performed By: #### 4 [id number] #### [facility] [address] [place] [address] [address] Lorraine Scott DIAGNOSIS: Comment Normal [facility] Comment on above: Result Comment: NEGA TIVE FOR INTRAEPITHELIAL LESION OR MALIGNANCY. CELLULAR CHANGES ASSOCIATED WITH ATROPHY ARE PRESENT. Performed at: WB Performed By: #### 4 [id number] #### [facility] [address] [address] [address] Lorraine Scott HPV Aptima Negative Normal Negative [facility] Comment on above: Result Comment: This nucleic acid amplification test detects fourteen high-risk HPV types (16,18,31,33,35,39,45,51,52,56,58,59,66,68) without differentiation. Performed at: =G Performed By: #### 4 [id number] #### [facility] [address] [address] [address] Lorraine Scott HPV Genotype Reflex Comment Normal [facility] Comment on above: Result Comment: Crit eria not met, HPV Genotype not performed. Performed at: WB Performed By: #### 4 [id number] #### [facility] [address] [address] [address] Lorraine Scott Methodology: Comment Normal [facility] Comment on above: Result Comment: This liquid based ThinPrep(R) pap test was screened with the use of an image guided system. Performed at: WB Performed By: #### 4 [id number] #### [facility] [address] [place] [address] Dr. Lorraine Scott Note: Comment Normal [facility] Comment on above: Result Comment: The Pap smear is a screening test designed to aid in the detection of premalignant and malignant conditions of the uterine cervix. It is not a diagnostic procedure and should not be used as the sole means of detecting cervical cancer. Both false-positive and false-negative reports do occur. . Performed at: WB Performed By: #### 4 [id number] #### [facility] [address] [place] [address] Dr. Lorraine Scott Performed by: Comment Normal [facility] Comment on above: Result Comment: Kong Juarez, Party Planner (ASCP) Performed at: WB Performed By: #### 4 [id number] #### [facility] [address] [place] [address] Dr. Lorraine Scott Specimen adequacy: Comment Normal [facility] Comment on above: Result Comment: Sati sfactory for evaluation. Endocervical component may not be distinguished in cases of atrophy. Performed at: WB Performed By: #### 4 [id number] #### [facility] [address] [place] [address] Dr. Lorraine Scott CHEMISTRYOrdered By: SYSTEM SYSTEM [...] rate/Area] mL/min/1.73 m2 Normal >=59mL/min /1.[address] [facility] Chem S GFR/1.73 sq M.predicted among non-blacks MDRD (S/P/Bld) [Vol rate/Area] 56 mL/min/1.73 m2 Low >=59mL/min /1.[address] [facility] Chem S Glucose [Mass/Vol] 104 mg/dL Normal 55 - 199 mg/dL [facility] Remisol Potassium [Moles/Vol] 4.6 mmol/L Normal 3.5 - 5.3 mmol/L [facility] Remisol Sodium [Moles/Vol] 138 mmol/L Normal 135 - 145 mmol/L [facility] Remisol Urea nitrogen [Mass/Vol] 20 mg/dL Normal 5 - 21 mg/dL [facility] Remisol Urea nitrogen/Creatinine [Mass ratio] 20 mg/mg Normal 10 - 20 FT Remisol Intraoperative Noteon 2017 Intraoperative Note [id number]#1.00[facility] Coding Summaryon 12-14-2017 Coding Summary CODING DATE: 018 [facility] STATUS: Home PAYOR: Commercial Insurance APC DESCRIPTION 5361 Level 1 Laparoscopy and Related Services ADMIT DX: REASON FOR VISIT DX: K35.80 Unspecified acute appendicitis FINAL DX: PRINCIPAL: K35.80 Unspecified acute appendicitis SECONDARY: K21.9 Gastro-esophageal reflux disease without esophagitis PYMT PROC APC STAT DESCRIPTION DOCTOR NAME DATE 68606 5361 J1 Laparoscopy surgicalCar Richard MD appendectomy NOTE: The code number assigned matches the documented diagnosis and / or procedure in the patient's chart. However, the narrative phrase printed from the coding software may appear abbreviated, or result in slightly different terminology. Coded By: Tenisha Smith Date Saved: 12/14/2017 09:53 am [facility] Lab - Other Lab Resultson Lab - Other Lab Results [id number]#1.00[facility] Operative Report - Surgeon/P hysicianon 12-09-2017 Operative Report - Surgeon/Physician This is the second dictation on this operative reportDATE OF PROCEDURE: 12/04/17URGEON: YAIMA NicholasTHESIA: General.PREOPERATIVE DIAGNOSIS: Acute appendicitis.POSTOPERATIVE DIAGNOSIS: Acute appendicitis.PROCEDURE: [...] theprocedure without any difficulties.Adryan Yoon M.D.JOB #: [id number]: 12/09/2017T: 12/09/2017[Electronically Signed on: 12/15/2017 10:32 EST] Adryan Yoon MD[Verified on: 12/15/2017 10:32 EST] Adryan Yoon MD[Transcribed on: 12/09/2017 09:14 EST]U [facility] Outside Recordson 12-09-2017 Outside Records [id number]#1.00OTGTIFF [facility] Outside Records [id number]#1.00OTGTIFF [facility] MAGR Postoperative Recordon 12-08-2017 MAGR Postoperative Record MAGR Phase II Record Summary Primary Physician: Adryan Yoon MD Finalized Date/Time: 12/08/17 13:12:55 Pt. Name: CHLOE AGARWAL/Sex: 1955 FEMALE Med Rec #: [id number] Physician: Adryan Yoon MD Financial #: [id number] Pt. Type: D Room/Bed: [facility] Admit/Disch: 12/04/17 03:05:00 - 12/05/17 12:30:00 Institution: [...] discharge instructions. General Comments: care per 2 [facility] personnel Finalized By: Chloe Turcios RN Document Signatures Signed By: Chloe Turcios RN 12/08/17 13:12 [facility] Operative Report - Surgeon/P avery 12-08-2017 Operative Report - Surgeon/Physician [id number]#1.00[facility] Pathology Sendout Teston Pathology Send Out. See Report [facility] Comment on above: Order Comment: JANET COWART Performed By: #### 2 [id number] ####[facility] (DEFAULT)[address] [place] [address] Provider Orderson 12-08-2017 Provider Orders [id number]#[address] [place] [address] Consent Formson 12-07-2017 Consent Forms [id number]#[address] [place] [address] Intraoperative Noteon 2017 Intraoperative Note [id number]#1.00[facility] Medication Managementon 11-19 Medication Management [id number]#[address] [place] [address] Telemetry Stripson 8 Telemetry Strips [id number]#[address] [place] [address] Discharge Summaryon 12-06-19 Discharge Summary DISCHARGE DIAGNOSIS: Acute appendicitis.DISCHARGE CONDITION: Good.HOSPITAL COURSE: The patient is a 62-year-old woman who presented [facility] emergency department. She was found to have a slightlyelevated white blood cell count. A CT scan was consistent with acuteappendicitis. The patient wanted to be transferred to [facility] andas a result, she underwent a laparoscopic appendectomy. Postoperatively sheis doing well. Her white blood cell count decreased to the normal range. Sheis tolerating a regular diet. Her pain is controlled and she is ambulatingwithout difficulty. As a result, she will be discharged home. She willfollow-up with me in two weeks.Adryan Yoon M.D.JOB #: [id number]: 12/05/2017T: 12/06/2017[Electronically Signed on: 12/09/2017 07:13 EST] Adryan Yoon MD[Verified on: 12/09/2017 07:13 EST] Adryan Yoon MD[Transcribed on: 12/06/2017 08:45 EST][facility] .Auto Diff 1on 12-05-2017 Auto Baso % 0.1 % Low 0.2-2.0 [facility] Comment on above: Performed By: #### 7 [id number], [id number] ####[facility] (DEFAULT)[address] [place] [address] Auto [place] % 8 % Normal 1-12 [facility] Comment on above: Performed By: #### 7 690574, [id number] ####[facility] (DEFAULT)[address] [place] [address] Auto Neut % 86 % Normal 44-88 [facility] Comment on above: Performed By: #### 7 [id number], [id number] ####[facility] (DEFAULT)[address] [place] [address] Baso Abs# 0.0 x10 Normal 0.0-0.2 [facility] Comment on above: Performed By: #### 7 744103, [id number] ####[facility] (DEFAULT)[address] [place] [address] Eos Abs# 0.0 x10 Normal 0.0-0.4 [facility] Comment on above: Performed By: #### 7 946635, [id number] ####[facility] (DEFAULT)[address] [place] [address] Eosinophils/100 leukocytes 0.0 % Low 0.9-4.0 [facility] Comment on above: Performed By: #### 7 [id number], [id number] ####[facility] (DEFAULT)[address] [place] [address] Lymphocytes 0.6 x10 Low 1.3-2.9 [facility] Comment on above: Performed By: #### 7 613523, [id number] ####[facility] (DEFAULT)[address] [place] [address] Lymphocytes/100 leukocytes 6 % Low 14-48 [facility] Comment on above: Performed By: #### 7 054949, [id number] ####[facility] (DEFAULT)[address] [place] [address] [place] Abs# 0.9 x10 High 0.0-0.8 [facility] Comment on above: Performed By: #### 7 113270, [id number] ####[facility] (DEFAULT)[address] [place] [address] Neut Abs# 9.9 x10 High 1.5-9.2 [facility] Comment on above: Performed By: #### 7 120234, [id number] ####[facility] (DEFAULT)[address] [place] [address] CBC w/ Auto Diffon 8 Erythrocyte distribution width Auto Ratio (RBC) 13.6 % Normal 11.5-15.0 [facility] Comment on above: Performed By: #### 7 [id number], [id number] ####[facility] (DEFAULT)[address] [place] [address] Erythrocytes (RBC) 3.75 x10 Normal 3.70-5.30 [facility] Comment on above: Performed By: #### 7 278760, [id number] ####[facility] (DEFAULT)[address] [place] [address] Hematocrit (HCT) 34.4 % Normal 33.7-40.4 [facility] Comment on above: Performed By: #### 7 652483, [id number] ####[facility] (DEFAULT)[address] [place] [address] Hemoglobin mass conc (Bld) 11.0 g/dL Low 11.3-15.9 [facility] Comment on above: Performed By: #### 7 461053, [id number] ####[facility] (DEFAULT)[address] [place] [address] Man Diff? Auto Normal [facility] Comment on above: Performed By: #### 7 265533, [id number] ####[facility] (DEFAULT)[address] [place] [address] MCH 29 pg Normal 24-34 [facility] Comment on above: Performed By: #### 7 654497, [id number] ####[facility] (DEFAULT)[address] [place] [address] MCHC mass conc (RBC) 32 g/dL Normal 26-37 [facility] Comment on above: Performed By: #### 7 920968, [id number] ####[facility] (DEFAULT)[address] [place] [address] MCV 92 fL Normal 81-100 [facility] Comment on above: Performed By: #### 7 148379, [id number] ####[facility] (DEFAULT)[address] [place] [address] Platelet mean volume (PMV) 11.7 fL High 6.3-10.2 [facility] Comment on above: Performed By: #### 7 041631, [id number] ####[facility] (DEFAULT)[address] [place] [address] Platelets 204 x10 Normal 138-427 [facility] Comment on above: Performed By: #### 7 729574, [id number] ####[facility] (DEFAULT)[address] [place] [address] WBC (Leukocytes) 11.4 x10 High 3.5-10.5 [facility] Comment on above: Performed By: #### 7 922409, [id number] ####[facility] (DEFAULT)[address] [place] [address] Education Noteon 12-05-2017 Education Note Education MaterialsGastroenterologyAppen [...] Reviewed: 02/20/2016Elsevier Interactive Patient Education ? 2017 [employer]. Normal [facility] Inpatient Clinical Summaryon 12-05-2017 Inpatient Clinical Summary [facility] 2SOUTHClinical Discharge SummaryPERSON INFORMATIONName ANYCHLOE Bruno Age 62 Years 59Sex FEMALE Language Cambodian PCP Agus MCGHEE Status [facility] 15[facility]-72 Acct# Arrival 12/04/17 03:05:00Visit Reason APPENDICITIS Acuity LOS 000 34:38Address:[address] [facility] [address]Fyalpnw:PROVIDER INFORMATIONVITALS INFORMATIONVital Sign Triage LatestTemp Oral 36.8 DegC 36.4 DegCTemp TemporalTemp IntravascularTemp AxillaryTemp Qesayo27 Sat 99 % 99 %Respiratory Rate 16 br/min 18 br/minPeripheral Pulse Rate 79 bpm 60 bpmApical Heart Rate 76 bpm 60 bpmBlood Pressure 138 mmHg / 86 mmHg 97 mmHg / 59 mmHgComment:MEDICAL INFORMATIONAllergy Info:Allergies sulfonamidePrescriptions Given:Home Meds Displayacetaminophen-hydrocodo ne ([place] 7.5 mg-325 mg oral tablet) 1 tab(s), [...] 4 hours as needed for for painacetaminophen-hydrocodone ([place] 7.5 mg-325 mg oral tablet) 1 tab(s) [...] range between ( 1.3 and 2.9 ) [place] Abs#: 0.9 x103/mcL -- Normal range between ( 0.0 and 0.8 ) Auto Baso %: 0.1 % -- Normal range between ( 0.2 and 2.0 ) Auto [place] %: 8 % -- Normal range between [...] INFORMATIONInstructions:Append icitisFollow up:With: Address: When:Adryan Yoon MD [address] [place] [address], [place] [id number] Business (1)DIAGNOSIS1:Acute appendicitisPROBLEMSProblems Active Arthritis Heart murmur HeartburnComment:PHYS DOC NOTES Normal [facility] Inpatient Patient Summaryon 12-05-2017 Inpatient Patient Summary [place] [id number] patient Discharge InstructionsName: ANY CHLOE JDOB: [birth year] Address: [address] [address]Primary Care Provider:Name: VICK MCGHEEPhone: After you are discharged if you find you have any questions, please, call [phone] ext [phone] to speak to a nurse.Discharge Diagnosis: 1:Acute [...] or business decisions or sign any legal documentsChildren'S Hospital For Rehabilitation would like to thank you for allowing us to assist you with your healthcare needs. The following includes patient education materials and information regarding your injury/illness.CHLOE AGARWAL has been given the following list of follow-up instructions, prescriptions, and patient education materials:Follow-up InstructionsWith: Address: When:Adryan Yoon MD [address] [place] [address], [address] [place] [phone] Business (1)MedicationsDuring the course of your visit, your medication list was updated with the most current information. The details of those changes are reflected below:Medications to Continue That Have Not ChangedOther Medicationsacetaminophen-hydro codone ([place] 7.5 mg-325 mg oral tablet) 1 tab(s) [...] list that you can keep with you.acetaminophen-hydrocodone ([place] 7.5 mg-325 mg oral tablet) 1 tab(s) [...] Reviewed: 02/20/2016Elsevier Interactive Patient Education ? 2017 Privacy Analytics.Viruses or BacteriaWhat?s got you sick?Antibiotics only treat [...] for Disease Control and Prevention June 2014 [facility] Progress Note - Nurseon 11-19 [...] on: 12/05/2017 09:52 EST] Sim Chamorro RN [facility] Progress Note - Nurse Pt walking the hallway with RN, 200 ft, standby assist. Pt is steady. No c/o SOB or dizziness. Bilateral upper and lower abdominal pain 3/10, prn norco administered as ordered. Will continue to monitor, call light in reach.[Electronically Signed on: 12/05/2017 05:50 EST] Serina Cross[Verified on: 12/05/2017 05:50 EST] Serina Cross [facility] Progress Note - Nurse Pt [...] Cross[Verified on: 12/04/2017 23:39 EST] Serina Cross [facility] Anesthesia Noteon 12-04-2017 Anesthesia Note Patient: CHLOE AGARWAL : 62 years Sex: FEMALE : 59Associated Diagnoses: NoneAuthor: Fernie Sandoval DOPostoperative InformationPost Operative Note: Post Anesthesia Care Unit.Review / ManagementCondition: Stable.AssessmentAnesthetic outcomeNo anesthetic complications noted.PlanTransfer/ Discharge: Patient can be discharged from PACU when criteria met.Condition good.[Electronically Signed on: 12/04/2017 15:01 EST] LoriFernie DO[Verified on: 12/04/2017 15:01 EST] LoriFernie DO [facility] Anesthesia Note Patient: CHLOE AGARWAL [...] 400 mg = 2 cap(s), PRN, PO, [id number] 20 mg oral delayed release capsule 20 mg = 1 cap(s), PO, DailyProblem list (past medical history):All ProblemsAlteration in comfort: pain / SNOMED CT 39130660 / ConfirmedArthritis / SNOMED CT 1724273 / ConfirmedHeart murmur / SNOMED CT 351266758 / ConfirmedHeartburn / SNOMED CT 40813220 / ConfirmedResolved: Kidney stones / SNOMED CT 303360880Qgdcrjxd: History of renal stent / SNOMED CT 8301201777Afyucpul: Acute appendicitis / SNOMED CT 267574420FvqhpnyftMiwrrf History:DementiaFatherLiver massSisterCHF (congestive heart failure)MotherFatherProcedure history:History of right total knee replacement (301520824102695).History of left total knee replacement (732777794141469).Tonsillectom y (326621332).Removal of ureteral stent (917665136).History of ureteral stent placement (8017670148).Social History Alcohol Assessment Use: Never. Tobacco Assessment Never (less than 100 in lifetime) Tobacco Use:. Substance Abuse Assessment Substance use: Never. 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 Home/Environment Assessment Lives with Children, Spouse. Living situation: Home/Independent. Nutrition/Health Assessment Regular, Caffeine intake amount: Hot tea in the morning..Social & Psychosocial WornhhScvmkzz42/16/2018 Alcohol Use: NeverEmployment/Fgthkc79/16/20 Status: Self employed Description: Office workHome/Tniocrwmoru28/16/2018 Lives with: Children, Spouse Living situation: Home/IndependentNutrition/Heal th12/04/2017 Type of diet: Regular Caffeine intake amount: Hot tea in the morningSubstance Abuse12/04/2017 Substance use: BsftjZflrkrc56/16/2018 Smoking tobacco use: Never (less than 100 in l.Physical ExaminationVS/MeasurementsMeas urements from flowsheet : Ltsppxyfnktb66/16/18 03:09 EST Height 152.400 cm Height/Length Dosing 152.400 cm Weight 71.200 kg Weight Dosing 71.200 kg Body Mass Index 30.660 kg/m2,Vital Signs (last 24 hrs) Last ChartedTemp Oral 36.7 DegC (DEC 04 07:00)Heart Rate Peripheral 76 bpm (DEC 04 07:00)Resp Rate 18 br/min (DEC 04 07:00)SBP 123 mmHg (DEC 04 07:00)DBP 77 mmHg (DEC 04 07:00)SpO2 99 % (DEC 04:)Weight 71.200 kg (DEC 04 03:09)Height 152.40 cm (DEC 04 03:09)General: Alert and oriented, No acute distress.Airway: Mallampati classification: II (soft palate, fauces, uvula visible). Temporomandibular joint mobility: Good. Mouth: Teeth ( [place] ). Neck: Non-tender, Full range of motion.Respiratory: [...] on: 12/04/2017 08:38 EST] Fernie Sandoval DO [facility] History and Physicalon 12-04 History and Physical DATE OF ADMISSION: 12/04/17 MEDICAL HISTORYCHIEF COMPLAINT: Right lower quadrant abdominal pain.HISTORY OF PRESENT ILLNESS: The patient is a 62-year-old woman withabdominal pain. She presented to the emergency department at [facility]. A CT scan of the abdomen and pelvis was obtained which wasconsistent with acute appendicitis. Due to personal reasons, she did notwant the surgery performed at [facility] and as a result, [facility]wanted [facility] [...] to undergo the procedure.Adryan Yoon M.D.JOB #: [id number]: 12/04/2017T: 12/04/2017[Electronically Signed on: 12/04/2017 07:16 EST] Adryan Yoon MD[Verified on: 12/04/2017 07:16 EST] Adryan Yoon MD[Transcribed on: 12/04/2017 06:52 EST][facility] MAGR Intraoperative Recordon 12-04-2017 MAGR Intraoperative Record MAGR Intra-Op Record Summary Primary Physician: Adryan Yoon MD Finalized Date/Time: 12/04/17 15:26:26 Pt. Name: CHLOE AGARWAL Arlen Powell/Sex: 1955 FEMALE Med Rec #: [id number] Physician: Adryan Yoon MD Financial #: [id number] Pt. Type: D Room/Bed: [facility] Admit/Disch: 12/04/17 03:05:00 - Institution: Case Times [...] Role Performed Surgeon - Primary Anesthesiologist of Clinical Laboratory Assistant Record Time In 12/04/17 09:44:00 12/04/17 09:44:00 12/04/17 09:44:00 Time Out 12/04/17 10:42:00 12/04/17 10:42:00 12/04/17 10:42:00 Procedure Appendectomy Appendectomy Appendectomy Laparoscopic Laparoscopic Laparoscopic Last Modified By: Olinda Mora Cynthia M Cartier, Cynthia M 12/04/17 10:56:16 12/04/17 10:56:16 12/04/17 10:56:16 Entry 4 Entry 5 Entry 6 Case Attendee Jennifer Li RECORD PRESSMAN BOARD CSFA/RECORD PRESSMAN, Antonia Bah RN Role Performed Sample Collector Scrub Personnel Clinical Laboratory Assistant Time In 12/04/17 09:44:00 12/04/17 09:44:00 12/04/17 [...] Count Time 12/04/17 09:50:00 Performed By BOARD DARION/YESENIA GARCIA Counts Verification Final Counts Items Included [...] Signed By: Antonia Pérez RN 12/04/17 [facility] Record [facility] Primary Physician: Adryan Yoon MD Finalized Date/Time: 12/04/17 11:35:32 Pt. Name: ANYCHLOE D.O.B./Sex: 1955 FEMALE Med Rec #: [id number] Physician: Adryan Yoon MD Financial #: [id number] Pt. Type: D Room/Bed: 229/ Admit/Disch: 12/04/17 03:05:00 - Institution: PACU Case Times MAGR Entry 1 In PACU I 12/04/17 10:44:00 Discharge from PACU 12/04/17 11:25:00 I Last Modified By: Vernell Gunderson RN 12/04/17 11:35:30 Finalized By: Vernell Gunderson RN Document Signatures Signed By: Vernell Gunderson RN 12/04/17 11:35 [facility] Progress Note - Nurseon 11-19 Progress Note [...] on: 12/04/2017 04:41 EST] Liliane Rivero RN [facility] Vital Signs Date Time Vital Sign Value Performing Clinician Davian swan 11-28-2024 08:59-0500 Body mass index (BMI) [Ratio] 31.64 kg/m2 Antionette LOPEZ Work Phone: [facility] 11-28-2024 08:59-0500 Body weight 73.48 kg Antionette LOPEZ Work Phone: [facility] 11-28-2024 08:59-0500 Diastolic blood pressure 76 mm[Hg] Antionette LOPEZ Work Phone: [facility] 11-28-2024 08:59-0500 Systolic blood pressure 126 mm[Hg] Antionette LOPEZ Work Phone: [facility] 10-05-2024 11:45-0500 Diastolic blood pressure 76 mm[Hg] Lokesh Mcqueen [facility] 10-05-2024 11:45-0500 Mean blood pressure 102 mm[Hg] Lokesh Mcqueen [facility] 10-05-2024 11:45-0500 Systolic blood pressure 153 mm[Hg] Lokesh Mcqueen [facility] 10-05-2024 11:35-0500 Blood Pressure Location Lokesh Mcqueen [facility] 10-05-2024 11:35-0500 Diastolic blood pressure 84 mm[Hg] Lokesh Mcqueen [facility] 10-05-2024 11:35-0500 Heart rate 62 /min Lokesh Mcqueen [facility] 10-05-2024 11:35-0500 Respiratory rate 18 /min Lokesh Mcqueen [facility] 10-05-2024 11:35-0500 SaO2% (BldA) [Mass fraction] 98 % Lokesh Mcqueen [facility] 10-05-2024 11:35-0500 Systolic blood pressure 156 mm[Hg] Lokesh Mcqueen [facility] 08-19-2024 13:49-0400 Heart rate 68 /min SAM KAIS[facility] 08-19-2024 13:49-0400 SaO2% (BldA) [Mass fraction] 98 % SAM [facility] 08-19-2024 13:49-0400 Blood Pressure Location SAM [facility] 08-19-2024 13:49-0400 Diastolic blood pressure 77 mm[Hg] SAM [facility] 08-19-2024 13:49-0400 Mean blood pressure 97 mm[Hg] SAM [facility] 08-19-2024 13:49-0400 Systolic blood pressure 136 mm[Hg] SAM [facility] 08-19-2024 13:48-0400 Respiratory rate 18 /min SAM [facility] 08-19-2024 12:16-0400 Heart rate 52 /min SAM [facility] 08-19-2024 12:16-0400 SaO2% (BldA) [Mass fraction] 100 % SAM [facility] 08-19-2024 12:16-0400 Blood Pressure Location SAM [facility] 08-19-2024 12:16-0400 Diastolic blood pressure 63 mm[Hg] SAM [facility] 08-19-2024 12:16-0400 Mean blood pressure 81 mm[Hg] SAM [facility] 08-19-2024 12:16-0400 Systolic blood pressure 117 mm[Hg] SAM [facility] 08-19-2024 12:15-0400 Respiratory rate 18 /min SAM [facility] 08-19-2024 09:55-0400 Heart rate 50 /min SAM [facility] 08-19-2024 09:55-0400 SaO2% (BldA) [Mass fraction] 98 % SAM [facility] 08-19-2024 09:55-0400 Diastolic blood pressure 68 mm[Hg] SAM [facility] 08-19-2024 09:55-0400 Mean blood pressure 81 mm[Hg] SAM [facility] 08-19-2024 09:55-0400 Systolic blood pressure 106 mm[Hg] SAM [facility] 08-19-2024 09:54-0400 Respiratory rate 18 /min SAM [facility] 08-19-2024 08:04-0400 Body temperature 97.52 [degF] SAM [facility] 08-19-2024 08:03-0400 Blood Pressure Location SAM [facility] 08-11-2024 10:49-0400 Body height 152.4 cm Sydnie Villalobos DPM Work Phone: [facility] 08-11-2024 10:49-0400 Body mass index (BMI) [Ratio] 30.86 kg/m2 Sydnie Villalobos DPM Work Phone: [facility] 08-11-2024 10:49-0400 Body weight 71.67 kg Sydnie Villalobos DPM Work Phone: [facility] 07-13-2024 15:01-0400 Blood Pressure Location Willie Lozanomarcos [facility] 07-13-2024 15:01-0400 Diastolic blood pressure 82 mm[Hg] Willie Kaur [facility] 07-13-2024 15:01-0400 Heart rate 68 /min Willie Kaur [facility] 07-13-2024 15:01-0400 Respiratory rate 18 /min Willie Lozanomarcos [facility] 07-13-2024 15:01-0400 SaO2% (BldA) [Mass fraction] 98 % Willie Kaur [facility] 07-13-2024 15:01-0400 Systolic blood pressure 137 mm[Hg] Willie Kaur [facility] 07-06-2024 14:55-0400 Diastolic blood pressure 82 mm[Hg] Claudio Monroe [facility] 07-06-2024 14:55-0400 Heart rate 66 /min Claudio Monroe [facility] 07-06-2024 14:55-0400 Mean blood pressure 103 mm[Hg] Claudio Monroe [facility] 07-06-2024 14:55-0400 Respiratory rate 14 /min Claudio Monroe [facility] 07-06-2024 14:55-0400 Systolic blood pressure 144 mm[Hg] Claudio Monroe [facility] 05-08-2024 09:00-0400 Diastolic blood pressure 63 mm[Hg] Nelson Solares [facility] 05-08-2024 09:00-0400 Heart rate 55 /min Nelson Solares [facility] 05-08-2024 09:00-0400 Mean blood pressure 78 mm[Hg] Nelson Solares [facility] 05-08-2024 09:00-0400 SaO2% (BldA) [Mass fraction] 99 % Nelson Solares [facility] 05-08-2024 09:00-0400 Systolic blood pressure 108 mm[Hg] Nelson Solares [facility] 05-08-2024 08:26-0400 Diastolic blood pressure 77 mm[Hg] Nelson Solares [facility] 05-08-2024 08:26-0400 Heart rate 58 /min Nelson Solares [facility] 05-08-2024 08:26-0400 Mean blood pressure 105 mm[Hg] Nelson Solares [facility] 05-08-2024 08:26-0400 Respiratory rate 15 /min Nelson Solares [facility] 05-08-2024 08:26-0400 SaO2% (BldA) [Mass fraction] 98 % Nelson Solares [facility] 05-08-2024 08:26-0400 Systolic blood pressure 161 mm[Hg] Nelson Solares [facility] 05-08-2024 07:19-0400 Body temperature 98.42 [degF] Nelson Solares [facility] 05-08-2024 07:19-0400 Diastolic blood pressure 82 mm[Hg] Nelson Solares [facility] 05-08-2024 07:19-0400 Heart rate 64 /min Nelson Solares [facility] 05-08-2024 07:19-0400 Respiratory rate 16 /min Nelson Solares [facility] 05-08-2024 07:19-0400 SaO2% (BldA) [Mass fraction] 100 % Nelson Solares [facility] 05-08-2024 07:19-0400 Systolic blood pressure 163 mm[Hg] Nelson Solares [facility] 12-18-2023 13:32-0500 Blood Pressure Location Willie Kaur [facility] 12-18-2023 13:32-0500 Diastolic blood pressure 70 mm[Hg] Willie Kaur [facility] 12-18-2023 13:32-0500 Heart rate 60 /min Willie Kaur [facility] 12-18-2023 13:32-0500 SaO2% (BldA) [Mass fraction] 99 % Willie Kaur [facility] 12-18-2023 13:32-0500 Systolic blood pressure 110 mm[Hg] Willie Kaur [facility] 11-25-2023 09:00-0500 Body height 152.4 cm Antionette LOPEZ Work Phone: [facility] 11-25-2023 09:00-0500 Body mass index (BMI) [Ratio] 33.22 kg/m2 Antionette Yang PA Work Phone: [facility] 11-25-2023 09:00-0500 Body weight 77.17 kg Antionette Yang PA Work Phone: [facility] 11-25-2023 09:00-0500 Diastolic blood pressure 84 mm[Hg] Antionette LOPEZ Work Phone: [facility] 11-25-2023 09:00-0500 Systolic blood pressure 120 mm[Hg] Antionette LOPEZ Work Phone: [facility] 11-20-2023 13:11-0500 Diastolic blood pressure 81 mm[Hg] Vicky Castillo [facility] 11-20-2023 13:11-0500 Heart rate 59 /min Vicky Castillo [facility] 11-20-2023 13:11-0500 Mean blood pressure 106 mm[Hg] iVcky Castillo [facility] 11-20-2023 13:11-0500 Respiratory rate 18 /min Vicky Castillo [facility] 11-20-2023 13:11-0500 Systolic blood pressure 156 mm[Hg] Vicky Castillo [facility] 11-17-2023 11:36-0500 Diastolic blood pressure 118 mm[Hg] Landon DOUGLAS [facility] 11-17-2023 11:36-0500 Mean blood pressure 135 mm[Hg] Landon DOUGLAS [facility] 11-17-2023 11:36-0500 Systolic blood pressure 170 mm[Hg] Landon MISAEL [facility] 11-17-2023 11:27-0500 Blood Pressure Location Landon DOUGLAS [facility] 11-17-2023 11:27-0500 Diastolic blood pressure 107 mm[Hg] Landon DOUGLAS [facility] 11-17-2023 11:27-0500 Heart rate 68 /min Landon DOUGLAS [facility] 11-17-2023 11:27-0500 SaO2% (BldA) [Mass fraction] 98 % Landon DOUGLAS [facility] 11-17-2023 11:27-0500 Systolic blood pressure 171 mm[Hg] Landon DOUGLAS [facility] 10-26-2023 12:48-0500 Diastolic blood pressure 88 mm[Hg] Vicky Castillo [facility] 10-26-2023 12:48-0500 Heart rate 66 /min Vicky Castillo [facility] 10-26-2023 12:48-0500 Mean blood pressure 106 mm[Hg] Vicky Castillo [facility] 10-26-2023 12:48-0500 Respiratory rate 20 /min Vicky Castillo [facility] 10-26-2023 12:48-0500 Systolic blood pressure 143 mm[Hg] Vicky Castillo [facility] 10-07-2023 09:52-0500 Heart rate 68 /min Claudio Monroe [facility] 10-07-2023 09:52-0500 SaO2% (BldA) [Mass fraction] 100 % Claudio Monroe [facility] 10-07-2023 09:52-0500 Diastolic blood pressure 95 mm[Hg] Claudio Monroe [facility] 10-07-2023 09:52-0500 Mean blood pressure 113 mm[Hg] Claudio Monroe [facility] 10-07-2023 09:52-0500 Systolic blood pressure 148 mm[Hg] Claudio Monroe [facility] 10-07-2023 09:52-0500 Respiratory rate 16 /min Claudio Monroe [facility] 10-07-2023 09:45-0500 Diastolic blood pressure 94 mm[Hg] Claudio Monroe [facility] 10-07-2023 09:45-0500 Heart rate 88 /min Claudio Monroe [facility] 10-07-2023 09:45-0500 SaO2% (BldA) [Mass fraction] 100 % Claudio Monroe [facility] 10-07-2023 09:45-0500 Systolic blood pressure 178 mm[Hg] Claudio Monroe [facility] 10-07-2023 09:03-0500 Heart rate 65 /min Claudio Monroe [facility] 10-07-2023 09:03-0500 SaO2% (BldA) [Mass fraction] 98 % Snyder Fer [facility] 10-07-2023 09:03-0500 Body temperature 97.52 [degF] Claudio Monroe [facility] 10-07-2023 09:03-0500 Diastolic blood pressure 83 mm[Hg] Snyder Fer [facility] 10-07-2023 09:03-0500 Mean blood pressure 103 mm[Hg] Claudio Monroe [facility] 10-07-2023 09:03-0500 Systolic blood pressure 143 mm[Hg] Claudio Monroe [facility] 10-07-2023 09:03-0500 Respiratory rate 14 /min Claudio Monroe [facility] 09-22-2023 11:23-0500 Diastolic blood pressure 88 mm[Hg] Demarjorge Trammell [facility] 09-22-2023 11:23-0500 Heart rate 60 /min Demarjorge Trammell [facility] 09-22-2023 11:23-0500 Mean blood pressure 105 mm[Hg] Demar Valeri [facility] 09-22-2023 11:23-0500 Respiratory rate 14 /min Demar Trammell [facility] 09-22-2023 11:23-0500 Systolic blood pressure 138 mm[Hg] Demarjorge Pradoner [facility] 07-14-2023 09:26-0400 Diastolic blood pressure 78 mm[Hg] Vicky STANG [facility] 07-14-2023 09:26-0400 Mean blood pressure 101 mm[Hg] Vicky STANG [facility] 07-14-2023 09:26-0400 Systolic blood pressure 146 mm[Hg] Vicky STANG [facility] 07-14-2023 09:15-0400 Blood Pressure Location Vicky STANG [facility] 07-14-2023 09:15-0400 Diastolic blood pressure 82 mm[Hg] Vicky STANG [facility] 07-14-2023 09:15-0400 Heart rate 67 /min Vicky STANG [facility] 07-14-2023 09:15-0400 SaO2% (BldA) [Mass fraction] 98 % Vicky MCDOWELLVika [facility] 07-14-2023 09:15-0400 Systolic blood pressure 148 mm[Hg] Vicky LAST [facility] 06-30-2023 15:15-0400 Diastolic blood pressure 97 mm[Hg] Landon DOUGLAS [facility] 06-30-2023 15:15-0400 Mean blood pressure 123 mm[Hg] Landon DOUGLAS [facility] 06-30-2023 15:15-0400 Systolic blood pressure 174 mm[Hg] Landon DOUGLAS [facility] 06-30-2023 15:05-0400 Blood Pressure Location Landon DOUGLAS [facility] 06-30-2023 15:05-0400 Diastolic blood pressure 98 mm[Hg] Landon DOUGLAS [facility] 06-30-2023 15:05-0400 Heart rate 80 /min Landon DOUGLAS [facility] 06-30-2023 15:05-0400 SaO2% (BldA) [Mass fraction] 99 % Landon DOUGLAS [facility] 06-30-2023 15:05-0400 Systolic blood pressure 166 mm[Hg] Landon DOUGLAS [facility] 06-08-2023 08:21-0400 Diastolic blood pressure 94 mm[Hg] Vicky Castillo [facility] 06-08-2023 08:21-0400 Heart rate 62 /min Vicky Castillo [facility] 06-08-2023 08:21-0400 Respiratory rate 16 /min Vicky Castillo [facility] 06-08-2023 08:21-0400 Systolic blood pressure 156 mm[Hg] Vicky Castillo [facility] 06-05-2023 10:45-0400 Diastolic blood pressure 70 mm[Hg] Prasad Infantee [facility] 06-05-2023 10:45-0400 Heart rate 70 /min Prasad Robbie [facility] 06-05-2023 10:45-0400 Mean blood pressure 97 mm[Hg] Prasad Robbie [facility] 06-05-2023 10:45-0400 Respiratory rate 20 /min Prasad Robbie [facility] 06-05-2023 10:45-0400 SaO2% (BldA) [Mass fraction] 96 % Prasad Robbie [facility] 06-05-2023 10:45-0400 Systolic blood pressure 152 mm[Hg] Prasad Robbie [facility] 06-05-2023 09:25-0400 Diastolic blood pressure 70 mm[Hg] Prasad Robbie [facility] 06-05-2023 09:25-0400 Heart rate 71 /min Prasad Robbie [facility] 06-05-2023 09:25-0400 Mean blood pressure 96 mm[Hg] Prasad Robbie [facility] 06-05-2023 09:25-0400 Respiratory rate 17 /min Prasad Robbie [facility] 06-05-2023 09:25-0400 SaO2% (BldA) [Mass fraction] 99 % Prasad Robbie [facility] 06-05-2023 09:25-0400 Systolic blood pressure 147 mm[Hg] Prasad Robbie [facility] 06-05-2023 08:54-0400 gluc 109 mg/dL Prasad Avalos [facility] 06-05-2023 08:54-0400 gluc Prasad Avalos [facility] 06-05-2023 08:47-0400 Body temperature 98.06 [degF] Prasad Avalso [facility] 06-05-2023 08:47-0400 Diastolic blood pressure 106 mm[Hg] Prasad Avalos [facility] 06-05-2023 08:47-0400 Heart rate 81 /min Prasad Avalos [facility] 06-05-2023 08:47-0400 Respiratory rate 20 /min Prasad Avalos [facility] 06-05-2023 08:47-0400 SaO2% (BldA) [Mass fraction] 97 % Prasad Avalos [facility] 06-05-2023 08:47-0400 Systolic blood pressure 173 mm[Hg] Prasad Avalos [facility] 04-28-2023 09:05-0400 Diastolic blood pressure 87 mm[Hg] Vickyjayden LAST [facility] 04-28-2023 09:05-0400 Mean blood pressure 111 mm[Hg] Vicky STANG [facility] 04-28-2023 09:05-0400 Systolic blood pressure 160 mm[Hg] Vicky STANG [facility] 04-28-2023 08:55-0400 Blood Pressure Location Vickyjayden MCDOWELLG [facility] 04-28-2023 08:55-0400 Diastolic blood pressure 88 mm[Hg] Vicky LAST [facility] 04-28-2023 08:55-0400 Heart rate 66 /min Vicky LAST [facility] 04-28-2023 08:55-0400 SaO2% (BldA) [Mass fraction] 97 % Vicky LAST [facility] 04-28-2023 08:55-0400 Systolic blood pressure 153 mm[Hg] Vicky LAST [facility] 04-20-2023 13:54-0400 Diastolic blood pressure 89 mm[Hg] Demar Valeri [facility] 04-20-2023 13:54-0400 Diastolic blood pressure 84 mm[Hg] Demar Valeri [facility] 04-20-2023 13:54-0400 Heart rate 72 /min Demar Valeri [facility] 04-20-2023 13:54-0400 Heart rate 62 /min Demar Valeri [facility] 04-20-2023 13:54-0400 Mean blood pressure 112 mm[Hg] Demar Valeri [facility] 04-20-2023 13:54-0400 Respiratory rate 14 /min Demar Valeri [facility] 04-20-2023 13:54-0400 Systolic blood pressure 159 mm[Hg] Demar Valeri [facility] 04-20-2023 13:54-0400 Systolic blood pressure 147 mm[Hg] Demar Valeri [facility] 04-03-2023 10:40-0400 Diastolic blood pressure 62 mm[Hg] Michael ALBRIGHT [facility] 04-03-2023 10:40-0400 Heart rate 69 /min NILL [facility] 04-03-2023 10:40-0400 Respiratory rate 32 /min NILL [facility] 04-03-2023 10:40-0400 SaO2% (BldA) [Mass fraction] 96 % NILL [facility] 04-03-2023 10:40-0400 Systolic blood pressure 100 mm[Hg] NILL [facility] 04-03-2023 10:30-0400 Diastolic blood pressure 56 mm[Hg] NILL [facility] 04-03-2023 10:30-0400 Heart rate 65 /min NILL [facility] 04-03-2023 10:30-0400 Respiratory rate 20 /min NILL [facility] 04-03-2023 10:30-0400 SaO2% (BldA) [Mass fraction] 95 % NILL [facility] 04-03-2023 10:30-0400 Systolic blood pressure 93 mm[Hg] NILL [facility] 04-03-2023 10:25-0400 Diastolic blood pressure 59 mm[Hg] NILL [facility] 04-03-2023 10:25-0400 Heart rate 69 /min NILL [facility] 04-03-2023 10:25-0400 Respiratory rate 17 /min NILL [facility] 04-03-2023 10:25-0400 SaO2% (BldA) [Mass fraction] 94 % NILL [facility] 04-03-2023 10:25-0400 Systolic blood pressure 102 mm[Hg] Michael ROLANDL [facility] 04-03-2023 10:20-0400 Blood Pressure Location Michael ROLANDL [facility] 04-03-2023 10:15-0400 Blood Pressure Location Michael ROLANDL [facility] 04-03-2023 10:15-0400 Body temperature 96.8 [degF] Michael ROLANDL [facility] 04-03-2023 09:47-0400 Respiratory rate 18 /min Michael ROLANDL [facility] 04-03-2023 09:24-0400 Blood Pressure Location Michael ROLANDL [facility] 04-03-2023 09:24-0400 Body temperature 96.8 [degF] Michael ROLANDL [facility] 03-17-2023 11:37-0400 Heart rate 78 /min Demarjorge Trammell [facility] 03-17-2023 11:37-0400 SaO2% (BldA) [Mass fraction] 98 % Demar Valeri [facility] 03-17-2023 11:37-0400 Diastolic blood pressure 63 mm[Hg] Demar Valeri [facility] 03-17-2023 11:37-0400 Mean blood pressure 87 mm[Hg] Demar Valeri [facility] 03-17-2023 11:37-0400 Systolic blood pressure 136 mm[Hg] Demar Pradoner [facility] 03-17-2023 11:33-0400 Diastolic blood pressure 114 mm[Hg] Demar Valeri [facility] 03-17-2023 11:33-0400 Heart rate 91 /min Demar Valeri [facility] 03-17-2023 11:33-0400 Respiratory rate 14 /min Demar Valeri [facility] 03-17-2023 11:33-0400 SaO2% (BldA) [Mass fraction] 99 % Demar Valeri [facility] 03-17-2023 11:33-0400 Systolic blood pressure 156 mm[Hg] Demar Valeri [facility] 03-17-2023 10:56-0400 Heart rate 89 /min Demar Valeri [facility] 03-17-2023 10:56-0400 SaO2% (BldA) [Mass fraction] 100 % Demar Valeri [facility] 03-17-2023 10:56-0400 Diastolic blood pressure 87 mm[Hg] Demar Valeri [facility] 03-17-2023 10:56-0400 Mean blood pressure 104 mm[Hg] Demar Valeri [facility] 03-17-2023 10:56-0400 Systolic blood pressure 138 mm[Hg] Demar Valeri [facility] 03-17-2023 10:56-0400 Body temperature 98.06 [degF] Demar Valeri [facility] 03-17-2023 10:56-0400 Respiratory rate 12 /min Demar Valeri [facility] 02-23-2023 12:32-0400 Diastolic blood pressure 97 mm[Hg] Demar Trammell [facility] 02-23-2023 12:32-0400 Heart rate 62 /min Demar Trammell [facility] 02-23-2023 12:32-0400 Mean blood pressure 115 mm[Hg] Demar Trammell [facility] 02-23-2023 12:32-0400 Respiratory rate 12 /min Demar Trammell [facility] 02-23-2023 12:32-0400 Systolic blood pressure 150 mm[Hg] Demar Trammell [facility] 02-20-2023 13:22-0400 Blood Pressure Location NILL [facility] 02-20-2023 13:22-0400 Diastolic blood pressure 84 mm[Hg] NILL [facility] [place] [facility] 02-20-2023 13:22-0400 Heart rate 72 /min NILL [facility] [place] [facility] 02-20-2023 13:22-0400 Respiratory rate 16 /min [facility] [facility] 02-20-2023 13:22-0400 Systolic blood pressure 122 mm[Hg] N[facility] 04-29-2022 09:28-0400 Blood Pressure Location Vicky STANG [facility] 04-29-2022 09:28-0400 Diastolic blood pressure 71 mm[Hg] Vicky STANG [facility] 04-29-2022 09:28-0400 Heart rate 73 /min Vicky STANG [facility] 04-29-2022 09:28-0400 Respiratory rate 18 /min Vicky STANG [facility] 04-29-2022 09:28-0400 SaO2% (BldA) [Mass fraction] 99 % Vicky LAST [facility] 04-29-2022 09:28-0400 Systolic blood pressure 106 mm[Hg] Vicky LAST [facility] Encounters Encounter Date Encounter Type Care Provider Facility Start: 12-21-2024 End: 12-21-2024 ambulatory ANTIONETTE YANG Not Available Start: 12-19-2024 End: 12-19-2024 ambulatory Lokesh Mcqueen Facility:[facility] Start: 12-19-2024 End: 12-19-2024 Patient encounter procedure Lokesh Mcqueen [facility] Start: 12-14-2024 End: 12-14-2024 Clinisync Result Encounter Antionette LOPEZ Work Phone: [facility] Unsolicited Start: 12-14-2024 End: 12-14-2024 Clinisync Result Encounter Antionette LOPEZ Work Phone: [facility] Unsolicited Start: 11-28-2024 End: 11-28-2024 Bamboo flowsheet Antionette LOPEZ Work Phone: [facility] Start: 11-28-2024 End: 12-02-2024 Bamboo flowsheet Antionette LOPEZ Work Phone: [facility] Start: 11-28-2024 End: 12-02-2024 Clinisync Result Encounter Antionette LOPEZ Work Phone: [facility] Unsolicited Start: 11-28-2024 End: 11-28-2024 Patient encounter procedure Antionette LOPEZ Work Phone: [facility] Start: 11-28-2024 End: 11-28-2024 Periodic preventive med est patient 65yrs& older Antionette LOPEZ Work Phone: [facility] Comment on above: Well woman exam with routine gynecological exam; Osteoporosis, post-menopausal (CMS/HCC); Breast cancer screening by mammogram; Pelvic pain in female Start: 11-28-2024 End: 11-28-2024 ambulatory ANTIONETTE YANG Not Available Start: 11-15-2024 End: 11-16-2024 ambulatory Aileen RENEE Facility:[facility] Start: 11-15-2024 Emergency department patient visit Darshan Laughlin Facility:[facility] Start: 10-05-2024 End: 10-05-2024 ambulatory XXXX NONE Facility:[facility] Start: 10-05-2024 End: 10-05-2024 Patient encounter procedure Lokesh Mcqueen [facility] Start: 09-02-2024 End: 09-02-2024 ambulatory Vick Mcghee MD Work Phone: [facility] Work Phone: Start: 09-02-2024 End: 09-02-2024 Departed Referred Vick Mcghee MD Work Phone: [facility] Start: 08-19-2024 End: 08-19-2024 ambulatory SAM KAISER Facility:[facility] Start: 08-19-2024 End: 08-19-2024 Patient encounter procedure SAM KAISER [facility] Start: 08-11-2024 End: 08-11-2024 Bamboo flowsheet Sydnie Villalobos DPM Work Phone: [facility] Start: 08-11-2024 End: 08-11-2024 Bamboo flowsheet Sydnie Villalobos DPM Work Phone: [facility] Start: 08-11-2024 End: 08-11-2024 Office outpatient visit 15 minutes Sydnie Villalobos DPM Work Phone: [facility] Comment on above: Pes valgus, acquired , right (Primary Dx); Pes valgus, acquired, left; Gastrocnemius equinus of right lower extremity; Gastrocnemius equinus of left lower extremity; Pain in both feet; Cramping of feet; Bilateral leg cramps; 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 Start: 07-13-2024 End: 07-13-2024 Patient encounter procedure Willie Kaur [facility] Start: 07-06-2024 End: 07-06-2024 ambulatory Claudio Monroe Facility:[facility] Start: 07-06-2024 End: 07-06-2024 Patient encounter procedure Claudio Monroe [facility] Start: 07-06-2024 End: 07-06-2024 ambulatory Vick Mcghee Facility:[facility] Start: 07-06-2024 End: 07-06-2024 Patient encounter procedure Claudio Monroe [facility] Start: 05-08-2024 End: 05-08-2024 Emergency department patient visit Nelson Solares [facility] Start: 03-03-2024 End: 03-03-2024 ambulatory SYDNIE VILLALOBOS Not Available Start: 12-18-2023 End: 12-18-2023 ambulatory Willie Kaur Facility:[facility] Start: 12-18-2023 End: 12-18-2023 Patient encounter procedure Willie Kaur [facility] Start: 12-02-2023 Clinisync Result Encounter [...] legs; Well woman exam Start: 11-20-2023 End: 11-20-2023 ambulatory PA-C Vicky Castillo Facility:[facility] Start: 11-20-2023 End: 11-20-2023 Pain Management Vicky Castillo [facility] Start: 11-17-2023 End: 11-17-2023 ambulatory Landon DOUGLAS Facility:[facility] Start: 11-17-2023 End: 11-17-2023 Patient encounter procedure Landon DOUGLAS [facility] Start: 10-26-2023 End: 10-26-2023 Patient encounter procedure Vicky Castillo [facility] Start: 10-26-2023 End: 10-26-2023 ambulatory Vicky Castillo Facility:[facility] Start: 10-26-2023 End: 10-26-2023 Pain Management Vicky Castillo [facility] Start: 10-07-2023 End: 10-07-2023 ambulatory Claudio Monroe Facility:[facility] Start: 10-07-2023 End: 10-07-2023 Pain Management Claudio Monroe [facility] Start: 09-22-2023 End: 09-22-2023 ambulatory Demar Trammell Facility:[facility] Start: 09-22-2023 End: 09-22-2023 Pain Management Demar Trammell [facility] Start: 08-06-2023 End: 08-06-2023 ambulatory Basebartolome VikaRuba Husain Facility:[facility] Start: 08-06-2023 End: 08-06-2023 Patient encounter procedure Barry Alvarezdad [facility] Start: 07-23-2023 End: 07-23-2023 ambulatory Basem Vika. Husain Facility:[facility] Start: 07-14-2023 End: 07-14-2023 Hypertension screening status Vicky LAST [facility] Start: 07-14-2023 End: 07-14-2023 Patient encounter procedure Vicky LAST [facility] Start: 06-30-2023 End: 06-30-2023 Patient encounter procedure Landon DOUGLAS [facility] Start: 06-08-2023 End: 06-08-2023 Pain Management Vicky Castillo [facility] Start: 06-05-2023 End: 06-05-2023 Emergency department patient visit Prasad Avalos [facility] Start: 05-04-2023 End: 05-04-2023 Pain Management Vicky Castillo [facility] Start: 04-28-2023 End: 04-28-2023 Patient encounter procedure Vicky Priyank LAST [facility] Start: 04-20-2023 End: 04-20-2023 Pain Management Demar Trammell [facility] Start: 04-15-2023 End: 04-15-2023 Patient encounter procedure Michael ALBRIGHT [facility] Start: 04-03-2023 End: 04-03-2023 Patient encounter procedure Michael ALBRIGHT [facility] Start: 03-17-2023 End: 03-17-2023 Pain Management Demar Trammell [facility] Start: 03-03-2023 End: 03-04-[address] VICK MCGHEE . Facility: Start: 02-23-2023 End: 02-23-2023 Pain Management Demar Trammell [facility] Start: 02-20-2023 End: 02-20-2023 Patient encounter procedure Michael ROLANDPriyank [facility] Start: 02-09-2023 End: 02-10-[address] VICK MCGHEE . Facility:[facility] Start: 11-05-2022 End: 11-05-[address] VICK MCGHEE . Facility:[facility] Start: 10-27-2022 End: 10-27-2022 Patient encounter procedure Vicky LAST [facility] Start: 10-22-2022 End: 10-23-[address] JUAN CARLOS NARVAEZ . Facility:[facility] Start: 09-24-2022 End: 09-24-[address] JUAN CARLOS NARVAEZ . Facility:[facility] Start: 04-29-2022 End: 04-29-2022 Patient encounter procedure Vicky LAST [facility] Start: 12-05-2017 End: 04-15-2018 Ambulatory Adryan Yoon Facility:[facility] Procedures Date Procedure Procedure Detail Performing Clinician Start: 12-14-2024 MM TOMOSYNTHESIS SCREENING BI Antionette LOPEZ Work Phone: Start: 12-14-2024 Mammography Antionette LOPEZ Work Phone: Start: 11-28-2024 IGP,APTIMA HPV,AGE GDLN Antionette LOPEZ Work Phone: Start: 08-19-2024 CT myelogram of lumbar region SAM Esparza Start: 12-02-2023 ALL THYROXINE (T4) FREE Antionette LOPEZ Work Phone: Start: 11-30-2023 ALL LIPID PROFILE (FASTING) Antionette LOPEZ Work Phone: Start: 11-30-2023 ALL THYROID STIM HORMONE Antionette LOPEZ Work Phone: Start: 11-30-2023 [facility] CMP (CMP) (FOR REMOTE [facility] USE) Antionette LOPEZ Work Phone: Start: 11-30-2023 Mammography Antionette LOPEZ Work Phone: Start: 11-25-2023 IGP,APTIMA HPV,AGE GDLN Antionette LOPEZ Work Phone: Start: 10-07-2023 Injection of nerve root of lumbar spine using fluoroscopic guidance Vicky [employer] Comment on above: right L5/S1 TFESI- 50% relief x 3 days t hen no relief Start: 04-20-2023 Injection of steroid into hip joint Vicky [employer] Comment on above: Right Hip Bursa Injection-50% relief Start: 04-03-2023 Colonoscopy Antionette LOPEZ Work Phone: Start: 04-03-2023 Colonoscopy [facility] Start: 04-03-2023 Esophagogastroduodenoscopy Michael ROLANDL Start: 03-17-2023 Injection of nerve root of lumbar spine using fluoroscopic guidance [employer] Comment on above: 75% relief Start: 10-22-2022 [...] for malign ant neoplasm of colon [facility] Start: 12-04-2025 End: 12-04-2025 Patient encounter procedure 12/04/2025 10:00 AM EST Office Visit [facility] [address] [place] [address] Antionette Yang PA [address] [place], [place] [id number] [facility] Start: 12-21-2024 End: 12-21-2024 Professional / ancillary services management 12/21/2024 9:30 AM EST Ancillary Procedure [facility] [address] [place] [address] [facility] Start: 11-30-2024 Screening for malign ant neoplasm of breast Mammogram [facility] Start: 11-28-2024 End: 11-28-2025 DXA Skeletal system Views for bone density DEXA bone density Imaging Routine Osteoporosis, post-menopausal ([facility]/HCC) Expected: 11/28/2024 (Approximate), Expires: 11/28/2025 [facility] Comment on above: Expected: 11/28/2024 (Approximate), Expires: 11/28/2025 Start: 11-28-2024 End: 01-26-2026 MG Breast - bilateral Screening Bilateral screening mammogram Imaging Routine Breast cancer screening by mammogram Expected: 11/28/2024 (Approximate), Expires: 01/26/2026 [facility] Work Phone: Comment on above: Expected: 11/28/2024 (Approximate), Expires: 01/26/2026 Start: 11-28-2024 End: 11-28-2025 US Pelvis US pelvis Imaging Routine Pelvic pain in female Expected: 11/28/2024 (Approximate), Expires: 11/28/2025 [facility] Comment on above: Expected: 11/28/2024 (Approximate), Expires: 11/28/2025 Start: 11-28-2024 End: 11-28-2024 Patient encounter procedure [facility] Comment on above: Arrived Start: 08-11-2024 End: 08-11-2024 Patient encounter procedure 08/11/2024 11:00 AM EDT Office Visit [facility] [address] [place] [id number] Sydnie Villalobos, DPM [address] [place] [address] Arrived [facility] Comment on above: Arrived Start: 06-19-2024 Influenza vaccination Influenza Vacc ine (#1) [facility] Start: 11-25-2023 End: 11-25-2024 Lipid 1996 panel - Serum or Plasma Lipid panel Lab Routine Well woman exam with routine gynecological exam Well woman exam Expected: 11/25/2023 (Approximate), Expires: 11/25/2024 [facility] Comment on above: Expected: 11/25/2023 (Approximate), Expires: 11/25/2024 Start: 11-25-2023 End: 01-23-2025 MG Breast - bilateral Screening Bilateral screening mammogram Imaging Routine Breast cancer screening by mammogram Expected: 11/25/2023, Expires: 01/23/2025 [facility] Work Phone: Comment on above: Expected: 11/25/2023 , Expires: 01/23/2025 Start: 10-22-2023 Screening for malign ant neoplasm of breast Mammogram [facility] Start: 06-19-2023 Influenza vaccination Influenza Vacc ine (#1) [facility] Start: 2022 Pneumococcal Vaccine : 65+ Years (1 - PCV) Pneumococcal Vaccine: 65+ Years (1 - PCV) [facility] Start: 2022 Pneumococcal Vaccine : 65+ Years (1 of 1 - PCV) Pneumococcal Vaccine: 65+ Years (1 of 1 - PCV) [facility] Start: 1955 Screening for malign ant neoplasm of colon [facility] CBC W Auto Different ial panel - Blood CBC and differential Lab Routine Well woman exam with routine gynecological exam Well woman exam Ordered: 11/25/2023 [facility] Comment on above: Ordered: 11/25/2023 Comprehensive metabo lic 2000 panel - Serum or Plasma Comprehensive metabolic panel Lab Routine Well woman exam with routine gynecological exam Well woman exam Ordered: 11/25/2023 [facility] Comment on above: Ordered: 11/25/2023 Hemoglobin A1c measurement Hemoglobin A1c Lab Routine Well woman exam with routine gynecological exam Well woman exam Ordered: 11/25/2023 [facility] Comment on above: Ordered: 11/25/2023 THIN PREP TIS PAP AN D HR HPV DNA THIN PREP TIS PAP AND HR HPV DNA Pathology and Cytology Routine Well woman exam with routine gynecological exam Ordered: 11/25/2023 [facility] Comment on above: Ordered: 11/25/2023 THIN PREP TIS PAP AN D HR HPV DNA THIN PREP TIS PAP AND HR HPV DNA Pathology and Cytology Routine Well woman exam with routine gynecological exam Ordered: 11/28/2024 [facility] Comment on above: Ordered: 11/28/2024 Thyrotropin [Units/volume] in Serum or Plasma TSH Lab Routine Well woman exam with routine gynecological exam Well woman exam Ordered: 11/25/2023 [facility] Comment on above: Ordered: 11/25/2023 Immunizations Immunization Date Immunization Notes Care Provider Geovanna [facility] 07-23-2021 SARS-CoV-2 (COVID-19 ) mRNA BNT-162b2 harlan ALBR[facility] 07-02-2021 SARS-CoV-2 (COVID-19 ) mRNA BNT-162b2 harlan ALBRIGHT [facility] [place] [facility] 02-22-2021 zoster vaccine recombinant Antionette LOPEZ Work Phone: [facility] 11-12-2020 zoster vaccine recombinant Antionette LOPEZ Work Phone: [facility] NEGATED: Highlighted row has not occurred!12-25-2021 influenza virus vaccine, unspecified formulation Vicky SHALA [facility] NEGATED: Highlighted row has not occurred!10-16-2021 influenza virus vaccine, unspecified formulation Vicky LAST [facility] Payers Date Payer Category Payer Self-pay 2022 Private Health Insurance [employer] [place] [id number] 2022 Unknown AARP AARP [id number] 2022-Present [address] [place] [address] [id number] 2022 Medicare [id number]. [id number]. [id number] 2017 Unknown [id number] 1959 Medicare [id number] 1959 Unknown [id number] 1957 Unknown [id number] .16.840.1.809789.3.579.2. 593 1957 Unknown [id number] .16.840.1.919422.3.579.2. 593 1957 Unknown [id number] 2.16.840.1.946064.3.579.2. 593 1957 Unknown [id number] 2.16.840.1.129628.3.579.2. 593 1957 Unknown [id number] .16.840.1.050577.3.579.2. 593 1957 Unknown [id number] 2.16.840.1.859316.3.579.2. 1957 Unknown [id number] 2.16.840.1.406195.3.579.2 1957 Unknown [id number] 2.16.840.1.328573.3.579.2 1957 Unknown [id number] 2.16.840.1.201314.3.579.2 1957 Unknown [id number] 2.16.840.1.681374.3.579.2 1957 Unknown [id number] 2.16.840.1.815519.3.579.2 1957 Unknown [id number] 2.16.840.1.204195.3.579.2 1957 Unknown [id number] 2.16.840.1.246209.3.579.2 1957 Unknown [id number] 2.16.840.1.664788.3.579.2 1957 Unknown [id number] 2.16.840.1.663645.3.579.2 1957 Unknown [id number] 2.16.840.1.782132.3.579.2 1957 Unknown [id number] 2.16.840.1.547376.3.579.2 1957 Unknown [id number] 2.16.840.1.923042.3.579.2. 1286 1957 Unknown [id number] 2.16.840.1.673925.3.579.2 1957 Unknown [id number] 2.16.840.1.169988.3.579.2 1957 Unknown [id number] 2.16.840.1.031397.3.579.2. 727 1957 Unknown [id number] 2.16.840.1.277755.3.579.2. 727 1957 Unknown [id number] 2.16.840.1.150956.3.579.2. 727 1957 Unknown [id number] 2.16.840.1.207747.3.579.2. 727 1957 Unknown [id number] 2.16.840.1.140518.3.579.2. 727 1957 Unknown [id number] 2.16.840.1.196441.3.579.2. 727 1957 Unknown [id number] 2.16.840.1.456484.3.579.2. 1259 1957 Unknown [id number] 2.16.840.1.394723.3.579.2. 125 1957 Unknown [id number] 2.16.840.1.356830.3.579.2. 1259 1957 Unknown [id number] 2.16.840.1.847252.3.579.2. 1259 1957 Unknown [id number] 2.16.840.1.980664.3.579.2. 727 1957 Unknown [id number] 2.16.840.1.086238.3.579.2. 727 Medicaid [id number] Unknown MMO [id number] Unknown [place] [facility] [id number] Unknown [id number] 2.16.840.1.944858.3.579.2. 531 Social History Date Type Detail Facility Start: 12-25-2021 End: 10-05-2024 Tobacco smoking status Never smoked tobacco (finding) [facility] Comment on above: Denies. Start: 11-24-2023 End: 08-11-2024 Sex Assigned At Female [facility] Tobacco smoking status Never [facility] Comment on above: Denies. Tobacco [facility] Comment on above: denies Tobacco smoking status No Smokin g Status Entered [facility] Start: 05-20-2023 Tobacco use and exposure Smokeless tobacco non-user [facility] Start: 11-25-2023 End: 11-28-2024 Alcohol intake Current drinker of alcohol (finding) [...] file N [facility] Tobacco smoking stat us NHIS Unknown if ever smoked [facility] Work Phone: Start: 09-03-2024 Sex Female (finding) [facility] Start: 1955 Sex Assigned At Female F [facility] Functional Status Date Assessment Result Facility 10-05-2024 Functional Status N/A [facility] 08-19-2024 Functional Status N/A [facility] 07-13-2024 Functional Status N/A [facility] 07-06-2024 Functional Status N/A [facility] 05-08-2024 Functional Status N/A [facility] 12-18-2023 Functional Status No [facility] 11-20-2023 Functional Status N/A [facility] 11-17-2023 Functional Status No [facility] 10-26-2023 Functional Status N/A [facility] 10-07-2023 Functional Status N/A [facility] 09-22-2023 Functional Status N/A [facility] 07-14-2023 Functional Status No [facility] 06-30-2023 Functional Status No [facility] 06-08-2023 Functional Status N/A [facility] 06-05-2023 Functional Status N/A [facility] 05-04-2023 Functional Status N/A [facility] 04-28-2023 Functional Status No [facility] 04-20-2023 Functional Status N/A [facility] 04-03-2023 Functional Status N/A [facility] 03-17-2023 Functional Status N/A [facility] 02-23-2023 Functional Status N/A [facility] 02-20-2023 Functional Status N/A [facility] 04-29-2022 Functional Status N/A [facility] Clinical Notes 10-08-2021 to 11-28-2024 JESSICA Hunt - 11/28/2024 9:00 AM Tom Villalobos DPM - 08/11/2024 11:00 AM EDT Note Date & Type Note Facility 11-28-2024 History of Present illness Narrative Reason for Appointment: Patient ID: Gladys Agarwal is a 69 y.o. female who presents for Gynecologic Exam Patient presents today for Annual Exam. MEDICATIONS Current Outpatient Medications Medication Instructions alendronate (FOSAMAX) 70 mg, Oral, Every 7 days, Take in the morning with a full glass of water, on an empty stomach, and do not take anything else by mouth or lie down for the next 30 min. hydroCHLOROthiazide (MICROZIDE) 12.5 mg, Oral, Every morning losartan (COZAAR) 100 mg, Oral metoprolol succinate XL (TOPROL-XL) 50 mg, Oral, Do not crush or chew. pantoprazole (PROTONIX) 40 mg, Oral, Daily before breakfast, Do not crush, chew, or split. rOPINIRole (REQUIP) 0.5 mg, Oral, Nightly sucralfate (CARAFATE) 1 g, Oral, Every 6 hours scheduled ALLERGIES Allergies Allergen Reactions Duloxetine Other Reaction(s): Vomiting Baclofen Other Reaction(s): Hand pain, Hot flashes, Numbness of limbs, Weakness of bilateral lower extremities, Weakness of bilateral upper extremities Gabapentin Headache Lisinopril Other Reaction(s): Coughing Sulfa Antibiotics Other Reaction(s): Unknown PROBLEMS Active Ambulatory Problems Diagnosis Date Noted Hallux [...] gynecologic examination Post menopausal syndrome Postprocedural hypertension HISTORY PAST MEDICAL HISTORY SOCIAL HISTORY Past Medical History: Diagnosis Date Acquired hallux valgus of right foot Breast pain Foot pain, right Foot pain, right Gastro-esophageal reflux disease without esophagitis Nondisp fx of fifth metatarsal bone, right foot w/ routine healing, subsequent encounter Normal gynecologic examination No abnormal findings Post menopausal syndrome Postprocedural hypertension Social History Tobacco Use Smoking status: Never Smokeless tobacco: Never Vaping Use Vaping status: Never Used Substance Use Topics Alcohol use: Yes Comment: 1 or 2 drinks/day, monthly or less; Caffeine: 1-2 cups/day Drug use: Never FAMILY HISTORY Family History Problem Relation Name Age of Onset Early natural Mother Heart disease Mother Heart disease Father SURGICAL HISTORY Past Surgical History: Procedure Laterality Date FOOT SURGERY Bilateral [address] Prasad Villalobos KNEE SURGERY Bilateral Left: 2005; Right: 2015 [place] LAPAROSCOPIC APPENDECTOMY 12/04/2017 [place] REMOVAL OF KIDNEY STONE 2007 REVIEW OF SYSTEMS Review of Systems: Review of Systems Constitutional: Negative. HENT: Negative. Eyes: Negative. Respiratory: Negative. Cardiovascular: Negative. Gastrointestinal: Negative. Genitourinary: Negative. Musculoskeletal: Negative. Skin: Negative. Neurological: Negative. All other systems reviewed and are negative. Hematological: Negative. Endocrine: Negative. Allergic/Immunologic: Negative. OBJECTIVE Objective: Physical Exam Constitutional: Appearance: Normal appearance. She is well-developed. Genitourinary: Vulva normal. Right Adnexa: not tender and no mass present. Left Adnexa: not tender and no mass present. No cervical discharge. Breasts: Breasts are soft. Right: Normal. Left: Normal. HENT: Head: Normocephalic. Nose: Nose normal. Mouth/Throat: Mouth: Mucous membranes are moist. Cardiovascular: Rate and Rhythm: Normal rate and regular rhythm. Pulmonary: Effort: Pulmonary effort is normal. Breath sounds: Normal breath sounds. Abdominal: General: Bowel sounds are normal. There is no distension. Palpations: Abdomen is soft. Tenderness: There is no abdominal tenderness. There is no guarding or rebound. Musculoskeletal: General: No swelling. Normal range of motion. Cervical back: Normal range of motion. Right lower leg: No edema. Left lower leg: No edema. Neurological: General: No focal deficit present. Mental Status: She is alert and oriented to person, place, and time. Skin: General: Skin is warm and dry. Psychiatric: Mood and Affect: Mood normal. Behavior: Behavior normal. Vitals and nursing note reviewed. Exam conducted with a snorkelling instructor present. Vitals: Estimated body mass index is 31.64 kg/m as calculated from the following: Height as of 08/11/24: 5'. Weight as of this encounter: 162 lb. BP: 126/76 No LMP recorded. Patient is postmenopausal. ASSESSMENT & PLAN ICD-10-CM 1. Well woman exam with routine gynecological exam Z01.419 THIN PREP TIS PAP AND HR HPV DNA 2. Osteoporosis, post-menopausal ([facility]) M81.0 DEXA bone density 3. Breast cancer screening by mammogram Z12.31 Bilateral screening mammogram Bilateral screening mammogram 4. Pelvic pain in female R10.2 US pelvis Annual: Patient presents today for an annual exam. Patient states she is doing well but states she has lower abdominal discomfort, cramping. She states she had routine colonoscopy 1 1/2 years ago that was normal. No history of abdominal surgeries. We will order US to determine if she has any abnormalities that would contribute to her pain. She was also encouraged to use more supportive bras for her breast soreness. Pap was obtained without difficulty and patient given mammogram order to have scheduled/obtained. Orders Placed This Encounter Procedures Bilateral screening mammogram DEXA bone density US pelvis Follow Up: Patient is to return in one year for annual unless needed otherwise. Documented by Lizzette Aviles MA on behalf of: JESSICA Hunt documented in this encounter [facility] 11-23-2024 Note Discharge Summary Admission and Discharge Information Admitting Physician - Jayden Santos DO Consulting Physician - [facility] Cardio, XXXX Bryant CANTRELL, Baldomero Admitting Diagnoses: [...] q8hr, PRN Follow-up With When Contact Information Bryant CANTRELL, Baldomero, STAN Within 1 to 2 weeks Additional Instructions: Call for followup appointment Patient Education Chest Wall Pain, En[place]-Ivok [facility] Comment on above: Result Comment: Elec tronically Signed By: Jayden Santos DO\.br\Date and Time Signed: 11/23/24 08:55 EST 11-16-2024 Note Echocardiology Procedure Exam Date/Time Accession # Ordering Echo Transthoracic 11/16/2024 10:20 EST [id number] Jayden Santos DO Complete CPT code [id number] Reason for Exam (Echo Transthoracic Complete) Chest pain Report [facility] [address] [place] [address] Adult Echocardiogram Report Name: CHLOE AGARWAL Study Date: 11/16/2024 09:40 AM BP: 124/67 mmHg Patient Location: [address] [address] Bed([address]) [facility] : 1955 Gender: Female Height: 60 in Age: 69 yrs Ethnicity: T Weight: 165 lb Reason For Study: Chest pain BSA: 1.7 m2 History: HTN Ordering Physician: Bryan Performed By: Loni Le, CHIKIS, RVT Interpretation [...] by: Baldomero Hurtado MD Transcribed by: Technologist: GELY [facility] 11-16-2024 Note Consultation Note Chief Complaint chest [...] Monitor with Large Bicep Cuff, See Instructions Aleve 220 mg oral capsule, 440 mg= [...] bilateral lower e (more content not included)... [facility] Comment on above: Result Comment: Elec tronically [...] 13:41:00) Lymph Auto: 14.1 % (11/15/24 13:41:00) [place] Auto: 8 % (11/15/24 13:41:00) Eos Auto: 1.2 % (11/15/24 13:41:00) Basophil Auto: 0.9 % (11/15/24 13:41:00) Neutro Absolute: 6.8 E9/L (11/15/24 13:41:00) Lymph Absolute: 1.3 E9/L (11/15/24 13:41:00) [place] Absolute: 0.7 E9/L (11/15/24 13:41:00) Eos Absolute: [...] List/Past Medical History (more content not included)... [facility] Comment on above: Result Comment: Elec tronically [...] bothersome. 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 She understands her water pill may be causing some of the cramping, but she was told she has to stay on it. She is trying to lose weight to improve her BP/HTN and her foot pain. She has tried gabapentin and Requip without improvement. She wears Metabolinis shoes. She does not currently wear inserts. [...] KNEE SURGERY Bilateral Left: 2005; Right: 2015 [place] LAPAROSCOPIC APPENDECTOMY 12/04/2017 [place] REMOVAL OF KIDNEY STONE 2008 Family History Problem Relation Name Age of [...] Sydnie Villalobos DPM documented in this encounter [facility] 07-06-2024 Note Consultation Note Patient is [...] with any questions or concerns that arise. [facility] Comment on above: Result Comment: Elec tronically [...] Date:07/13/2024 03:00:00 PM Scheduled Provider:Willie Kaur [facility] Type:Cardiology Follow Up (FT) Appointment Date:08/08/2024 08:15:00 AM Scheduled Provider:Claudio Monroe DO [facility] [place] [facility] Type:Pain Management - Follow Up (FT) [facility] 07-21-2024 Evaluation + Plan noteExtracted from: Title:ED [...] Date:07/13/2024 01:45:00 PM Scheduled Provider:Willie Kaur MD Location:FT.Cardiology Clinic Appointment Type:Cardiology Follow Up (FT) Diagnostic Tests Pending * Urine Culture 05/08/24 [facility]07-21-2024 Hospital Discharge instructions Patient Education 05/08/2024 [...] if you feel dizzy. General instructions Take lwjs-smm-fptrclu and prescription medicines only as told by [...] provider. Document Revised: 09/04/2021 Document Reviewed: 09/04/2021 [employer] Patient Education 2022 [employer]. 05/08/2024 09:33:58 Urinary Tract Infection, Adult Urinary [...] Treatment for this condition includes: Antibiotic medicine. Txrf-ghl-nxwztdb medicines to treat discomfort. Drinking enough water [...] Follow these instructions at home: Medicines Take zkgb-oov-tkbqujy and prescription medicines only as told by [...] provider. Document Revised: 05/17/2021 Document Reviewed: 05/17/2021 [employer] Patient Education 2022 [employer]. Follow Up Care 05/08/2024 07:16:07 With:Vick Nathalie Address: [address] [place], [place] [address]- Business (1) When:05/11/2024 09:31:54 Comments:Call the office [...] you develop any new or worsening symptoms. [facility]07-21-2024 NoteED Patient Education Note Neurology Vertigo [...] you feel dizzy. General instructions ? Take fsuy-fdm-lxkhywv and prescription medicines only as told by [...] provider. Document Revised: 09/04/2021 Document Reviewed: 09/04/2021 [employer] Patient Education ? 2022 [employer]. Obstetrics and Gynecology Urinary Tract Infection, Adult [...] have certain medical conditions, (more content not included)...[facility]02-14-2024 Telephone encounter Note* Telephone Encounter - JESSICA Hunt - 12/02/2023 10:41 AM EST Pt notified of wellness lab results and low tsh, t3 and t4 labs ordered for her as well. Pt states she will follow up with her primary care physician, DR Mcghee in next few weeks. She denies any symptoms at this time [id number] Miscellaneous Notes* Telephone Encounter - JESSICA Hunt - 12/02/2023 10:41 AM EST Pt notified of wellness lab results and low tsh, t3 and t4 labs ordered for her as well. Pt states she will follow up with her primary care physician, DR Mcghee in next few weeks. She denies any symptoms at this time [id number] History of Present illness Narrative* JESSICA Hunt - 11/25/2023 9:00 AM EST Reason for Appointment: Patient ID: Chloe Agarwal is a 68 y.o. female who presents for [facility] Visit Patient presents today for Annual [...] KNEE SURGERY Bilateral Left: 2005; Right: 2015 [place] LAPAROSCOPIC APPENDECTOMY 12/04/2017 [place] REMOVAL OF KIDNEY STONE 2007 Allergies Allergen [...] nursing note reviewed. Exam conducted with a snorkelling instructor present. Vitals: Estimated body mass index is 33.22 kg/m as calculated from the following: Height as of this encounter: 5'. Weight as of this encounter: 170 lb 1.9 oz. BP: 120/84 No LMP recorded. Patient is postmenopausal. Assessment/Plan Encounter Diagnoses Name Primary? Well woman exam with routine gynecological exam Breast cancer screening by mammogram Other osteoporosis, unspecified pathological fracture presence ([facility]/H[facility]) Patient presents today for an annual exam. [...] behalf of: JESSICA Hunt [id number] Evaluation + Plan note Extracted from: Title:Pain [...] PM Scheduled Provider:Willie Kaur MD Location[facility] [place] Appointment Type:Cardiology Follow Up (FT) [facility]01-08-2024 Evaluation + Plan noteExtracted from: [...] 01:15:00 PM Scheduled Provider:Vicky Castillo PA-C Location:FT.Pain [facility] Appointment Type:Pain Management - Follow Up (FT) [facility]12-20-2023 Evaluation + Plan noteExtracted from: [...] AM Scheduled Provider:Vicky Castillo PA-C Location:[facility] [place] Appointment Type:Pain Management - Follow Up (FT) Appointment Date:11/17/2023 11:30:00 AM Scheduled Provider:Landon DOUGLAS MD Location:.[facility] Clinic Appointment Type:Cardiology Follow Up (FT) [facility]12-20-2023 Note [id number][facility] [place] 10-07-2023 NoteDiagnosis: M54.16 Lumbar radiculopathy Procedure: Right [...] and agrees to comply to currently prescribed/recommended therapies.[facility] Comment on above:Result Comment: Electronically Signed By: Claudio Monroe DO.br\Date and Time Signed: 10/07/23 09:54 [id number] Evaluation + Plan note Extracted from: Title:FUV [...] Location:FT.[facility] Appointment Type:Cardiology Follow Up (FT) [facility]08-21-2023 Evaluation + Plan noteExtracted from: [...] Clinic Appointment Type:Cardiology ED Follow Up (FT) [facility]08-18-2023 Evaluation + Plan noteExtracted from: Title:ED Note Author:Prasad Avalos DO Date:05/19 06/10 Dizziness (R42: Dizziness an d giddiness) Hypertension (I10: Essential (primary) hypertension) Orders: losartan, 50 mg = 1 tab(s), Oral, Daily, X 30 day(s), # 30 tab(s), Refills(s) 0, Pharmacy: [facility], 152.4, cm, 06/05/23 8:54:00 EDT, Height/Length [...] 08:15:00 AM Scheduled Provider:Vicky Castillo PA-C Location:FT.Pain [facility] [place] Appointment Type:Pain Management - Follow Up (FT) Appointment Date:07/06/2023 11:00:00 AM Scheduled Provider:Landon DOUGLAS MD Location:FT.[facility] Appointment Type:Cardiology ED Follow Up (FT) [facility]08-18-2023 Hospital Discharge instructions Follow Up Care 06/05/2023 08:40:51 With:Vick Mcghee Address: [address] [place] [address]- Business (1) When:Within 3 Day(s) [facility]07-17-2023 Evaluation + Plan noteExtracted from: [...] Date:06/08/2023 08:15:00 AM Scheduled Provider:Vicky Castillo PA-C Location:[facility] Appointment Type:Pain Management - Follow Up (FT) [facility]06-16-2023 Evaluation + Plan noteExtracted from: Title:ANES Post-operative Note - General Author: Lb Wu Jr., DO Date:04/03/23 Plan Transfer/Discharge: Transfer/Discharge Discharge when meets criteria ( From PACU to Ambulatory Surgery Unit, and To home ). Extracted from: Title:ANES Pre-operative Note - Endo Author:Lb Melendez Jr., DO Date:04/03/23 Plan [place] [employer] Anesthesiologists (ASA) physical status classification: Class III. Anesthetic Preoperative Plan: Anesthesia General, and -TIVA. Future Appointments Appointment Date:04/07/2023 11:00:00 AM Scheduled Provider:Demar Trammell MD Location:.[facility] [place] Appointment Type:Pain Management - Follow Up (FT) Appointment Date:04/28/2023 09:00:00 AM Scheduled Provider:Vicky LAST CNP Location:.[facility] Clinic Appointment Type:Cardiology Follow Up (FT) [facility]06-16-2023 Hospital Discharge instructions Patient Education [...] unsweetened, w/added ascorbic acid 1 cup 0.5 [place] 1 cup 0.7 Vegetables Cooked Green beans 1 cup 4.0 Carrots 1/2 cup sliced 2.3 Peas 1 cup 8.8 Potato (baked, with skin) 1 medium potato 3.8 Raw [place] (with peel) 1 cucumber 1.5 Lettuce 1 [...] 8.7 Peanuts 1/2 cup 7.9 Chart from [facility] 2013. SEEK IMMEDIATE MEDICAL CARE [...] Reference. Available at http://www.nal.usda.gov/fnic/foodcomp/search/. Information adapted from: [facility] [place] Patient Information 2009 Hashdoc. Direct[employer] Plus 2012 http://www.SiBEAM/contents/tqeayjhiqaky-xwwvjtd-cwmrlt-the-basics 04/03/2023 10:24:14 Colonoscopy, Care After Surgery [place] (CUSTOM) Colonoscopy Care After Surgery Please read the instructions outlined below and refer to this sheet in the next few weeks. These discharge instructions provide you with general information on caring for [facility] Your doctor may also give you specific [...] reduce GERD symptoms. Medicines. These may include: ?Kvcs-ker-tfnsnve antacids. ?Medicines that make your stomach empty [...] may include: ?Fatty foods, like fried foods. ?Nord fruits, like oranges or lemon. ?Other foods [...] Do not drink alcohol. General instructions Take wmrj-agh-ttrgoej and prescription medicines only as told by [...] provider. Document Revised: 08/19/2022 Document Reviewed: 09/05/2021 [employer] Patient Education 2022 [employer]. 04/03/2023 10:24:03 Endoscopy, Care After Procedure [facility] ([facility]) Endoscopy Care After Procedure Please read the instructions outlined below and refer to this sheet in the next few weeks. These discharge instructions provide you with general information on caring for yourself [facility] Your doctor may also give you specific [...] Document Re-Released: 03/29/2007 ExitCare Patient Information 2009 Hashdoc. Follow Up Care 02/23/2023 10:35:27 With:Michael ALBRIGHT Address: [address], [facility] [address] [address]- Business (1) When:2 weeks [facility]05-08-2023 Evaluation + Plan noteExtracted from: Title:NPV [...] Appointments Appointment Date:04/03/2023 10:30:00 AM Scheduled Provider: Location:[facility] Appointment Type:Surgery FT Appointment Date:04/28/2023 09:00:00 AM Scheduled Provider:Vicky LAST CNP Location:FT.[facility]iology Clinic Appointment Type:Cardiology Follow Up (FT) [facility]12-21-2021 Hospital Discharge instructions Follow Up Care 10/08/2021 14:10:47 With:Landon Douglas MD Address: [address] [place] [phone] When: Unknown [facility] Future Appointments Appointment Date:11/05/2022 11:30:00 AM Scheduled Provider:Landon Douglas MD Location:FT.[facility] Appointment Type:Cardiology Follow Up (FT) Future Scheduled Tests Laboratory* Lipid Panel 09/05/21 Radiology* Echo Transthoracic Complete 09/29/22 [facility] Future Appointments Appointment Date:11/05/2022 11:30:00 AM Scheduled Provider:Landon Douglas MD Location:FT.[facility] Appointment Type[facility] (FT) [facility] Future Appointments Appointment Date:02/23/2023 12:30:00 PM Scheduled Provider:Demar Trammell MD Location:[facility] Appointment Type:Pain Management - New (FT) Appointment Date:04/28/2023 09:00:00 AM Scheduled Provider:Vicky LAST CNP Location:[facility] Appointment Type:Cardiology Follow Up (FT) [facility] [place] + Plan note Future Appointments Appointment Date:04/03/2023 10:30:00 AM Scheduled Provider: Location:[facility] Appointment Type:Surgery FT Appointment Date:04/07/2023 11:00:00 AM Scheduled Provider:Demar Trammell MD Location:[facility] Appointment Type:Pain Management - Follow Up (FT) Appointment Date:04/28/2023 09:00:00 AM Scheduled Provider:Vicky LAST CNP Location:FT.[facility] Appointment Type:Cardiology Follow Up (FT) [facility] + Plan note Future Appointments Appointment Date:04/20/2023 02:15:00 PM Scheduled Provider:Demar Trammell MD Location:[facility] Appointment Type:Pain Management - Office Injection (FT) Appointment Date:04/28/2023 09:00:00 AM Scheduled Provider:Vicky LAST CNP Location:[facility] Appointment Type:Cardiology Follow Up (FT) Appointment Date:05/04/2023 09:00:00 AM Scheduled Provider:Vicky Castillo PA-C Location:[facility] Appointment Type:Pain Management - Follow Up (FT) General Surgery [place] + Plan note Future Appointments Appointment Date:04/28/2023 09:00:00 AM Scheduled Provider:Vicky LAST CNP Location:[facility] Appointment Type:Cardiology Follow Up (FT) Appointment Date:05/04/2023 09:00:00 AM Scheduled Provider:Vicky Castillo PA-C Location:[facility]ment Type[facility] Management - [facility] (FT) [facility] Future App[facility]ments Appointment Date:05/04/2023 09:00:00 AM Scheduled Provider:Vicky Castillo PA-C Location[facility] [place] Appointment Type:Pain Management - Follow Up (FT) [facility] Future Appointments Appointment Date:07/14/2023 09:30:00 AM Scheduled Provider:Vicky LAST CNP [facility] ([facility] Future Appointments Appointment Date:11/17/2023 11:30:00 AM Scheduled Provider:Landon DOUGLAS MD Location:.[facility] Clinic Appointment Type:Cardiology Follow Up (FT) Appointment Date:11/20/2023 01:15:00 PM Scheduled Provider:Vicky Castillo PA-C Location:.[facility] [place] Appointment Type:Pain Management - Follow Up (FT) [facility] Future Appointments Appointment Date:11/20/2023 01:15:00 PM Scheduled Provider:Vicky Castillo PA-C Location[facility] [place] Appointment Type:Pain Management - Follow Up (FT) Appointment Date:12/14/2023 10:45:00 AM Scheduled Provider:Barry Husain MD [facility] Type:Pulmonary New Patient (FT) Appointment Date:12/18/2023 01:45:00 PM Scheduled Provider:Willie Kaur MD Location:.[facility] [place] Appointment Type:Cardiology Follow Up (FT) [facility] Future Appointments Appointment Date:08/08/2024 08:15:00 AM Scheduled Provider:Claudio Monroe DO Location:.[facility] [place] Appointment Type:Pain Management - Follow Up (FT) Appointment Date:01/12/2025 09:30:00 AM Scheduled Provider:Lokesh Mcqueen PA-C Location:.[facility] Clinic Appointment Type:Cardiology Follow Up (FT) [facility] Evaluation + Plan note Future Appointments Appointment Date:01/12/2025 09:30:00 AM Scheduled Provider:Lokesh Mcqueen PA-C Location:[facility] Appointment Type:Cardiology Follow Up (FT) Future Scheduled Tests Radiology* CT Spine Lumbar w/ Contrast 08/15/24 [facility] evaluation + Plan note Future Appointments Appointment Date:07/13/2024 03:00:00 PM Scheduled Provider:Willie Kaur MD Location:[facility] Appointment Type:Cardiology Follow Up (FT) Appointment Date:08/08/2024 08:15:00 AM Scheduled Provider:Claudio Monroe DO Location:FT.[facility] Appointment Type:Pain Management - Follow Up (FT) [facility] evaluation + Plan note Future Appointments Appointment Date:01/13/2025 10:15:00 AM Scheduled Provider:Lokesh Mcqueen PA-C Location:[facility] Appointment Type:Cardiology Follow Up (FT) Future Scheduled Tests Radiology* CT Spine Lumbar w/ Contrast 08/15/24 [facility] evaluation + Plan note Future Appointments Appointment Date:01/23/2025 02:30:00 PM Scheduled Provider:Baldomero uHrtado MD Location:FT.[facility] Appointment Type:Cardiology Inpatient Follow Up (FT) Future Scheduled Tests Radiology* CT Spine Lumbar w/ Contrast 08/15/24 [facility] evaluation note* Diagnosis Well woman exam with routine gynecological exam Routine gynecological examination Breast cancer screening by mammogram Other osteoporosis, unspecified pathological fracture presence ([facility]) Restless legs Restless legs syndrome (RLS) [...] this encounter [facility] HealthcareEvaluation noteNo assessment information availableGrant Hospital Work Phone: Evaluation note* Diagnosis Well woman exam with routine gynecological exam Routine gynecological examination Osteoporosis, post-menopausal (CMS/HCC) Senile osteoporosis Breast cancer screening by mammogram Pelvic pain in female Unspecified symptom associated with female genital organs documented in this encounter [facility] Narrative No data available for this section [facility] No data available for this section [facility] CenterProgress note No data available for this section [facility] Summary Purpose Family History No [...] AUTHOR AUTHOR'S ORGANIZ ATION 03/04/2023 [facility] DATE CREATED AUTHOR AUTHOR'S ORGANIZ ATION 05/10/2024 [facility] DATE CREATED AUTHOR AUTHOR'S ORGANIZ ATION 07/17/2024 [facility] DATE CREATED AUTHOR AUTHOR'S ORGANIZ ATION 08/12/2024 [facility] DATE CREATED AUTHOR AUTHOR'S ORGANIZ ATION 09/09/2024 [facility] DATE CREATED AUTHOR AUTHOR'S ORGANIZ ATION 11/17/2024 [facility] DATE CREATED AUTHOR AUTHOR'S ORGANIZ ATION 12/22/2024 [facility] DATE CREATED AUTHOR AUTHOR'S ORGANIZ ATION 12/28/2024 [facility] Care Team (unrecognized sect ion and content) Coordinator Of Rehabilitation Services Relationship Specialty Start Date End Date Vick Mcghee MD [address] [place] [facility] [address] PCP - General Family Medicine 05/21/23 Coordinator Of Rehabilitation Services Relationship Specialty Start Date End Date Vick Mcghee MD [address] [place] [facility] [address] PCP - General Family Medicine 05/21/23 Coordinator Of Rehabilitation Services Relationship Specialty Start Date End Date Vick Mcghee MD [address] [place] [address] PCP - General Family Medicine 05/21/23 Coordinator Of Rehabilitation Services Relationship Specialty Start Date End Date Vick Mcghee MD [address] [place] [address] PCP - General Family Medicine 05/21/23 Coordinator Of Rehabilitation Services Relationship Specialty Start Date End Date Vick Mcghee MD [address] [place] [facility] [address] PCP - General Family Medicine 05/21/23 Coordinator Of Rehabilitation Services Relationship Specialty Start Date End Date Vick Mcghee MD [address] [place] [address] PCP - General Family Medicine 05/21/23 Team Status: Active Member Role Status Dates iVck Mcghee MD Primary Care Provider Active Team Status: Inactive Member Role Status Dates Vick Mcghee MD Primary Care Provider Active Start: September 02, 2024 End: September 02, 2024 NON STAFF Attending Provider Active Start: No vember 2023 End: September 02, 2024 Coordinator Of Rehabilitation Services Relationship Specialty Start Date End Date Vick Mcghee MD [address] [place] [address] PCP - General Family Medicine 05/21/23 Coordinator Of Rehabilitation Services Relationship Specialty Start Date End Date Vick Mcghee MD [address] [place] [phone] PCP - General Family Medicine 05/21/23 Reason for Visit (unrecogniz ed section and content) Reason Comments Well Women Visit Reason Comments Foot Pain Chloe Agarwal is a 68 y.o. female who presents with concerns of redness on the bottom, pain, leg cramps. Pain is worse when laying down, toes curl and pain shoots up her leg. SS 7.5 Reason Comments Gynecologic Exam Goals (unrecognized section and content) Goals may [...] BE BASED ON THE PRIMARY CLINICAL RECORDS. [facility] [employer] provides no warranty or guarantee of the accuracy or completeness of information in this document.
[2025-01-10 10:22] LABS: Basophils Absolute Auto 0.1 10^3/uL (0.0-0.1); Basophils Percent Auto 0.8 % (0.2-2.0); Eosinophils Absolute Auto 0.1 10^3/uL (0.0-0.7); Eosinophils Percent Auto 1.8 % (0.9-7.0); Hematocrit 39.9 % (36.0-48.0); Hemoglobin 12.8 g/dL (12.0-16.0); Immature Granulocytes Abs Auto 0.02 10^3/uL (0.00-0.03); Immature Granulocytes Pct Auto 0.3 % (0.0-0.5); Lymphocytes Absolute Auto 1.2 10^3/uL (1.2-3.8); Lymphocytes Percent Auto 18.4 % (20.5-60.0); Mean Corpuscular HGB Conc 32.1 g/dL (29.9-35.2); Mean Corpuscular Hemoglobin 29.8 pg (26.7-34.0); Mean Corpuscular Volume 92.8 fL (81.0-99.0); Mean Platelet Volume 10.7 fL (9.5-13.5); Monocytes Absolute Auto 0.6 10^3/uL (0.3-0.8); Monocytes Percent Auto 8.3 % (1.7-12.0); Neutrophils Absolute Auto 4.7 10^3/uL (1.4-6.5); Neutrophils Percent Auto 70.4 % (43.0-75.0); Platelet Count 238 10^3/uL (150-450); Red Cell Distribution Width 12.4 % (11.0-15.0); White Blood Count 6.6 10^3/uL (4.0-11.0)
[2025-01-10 10:46] LABS: INR 1.01; Partial Thromboplastin Time 25.1 sec (22.3-36.2); Prothrombin Time 10.7 sec (9.0-11.6)
[2025-01-10 10:59] LABS: Alanine Aminotransferase 26 U/L (14-59); Albumin Globulin Ratio 1.1; Albumin Level 3.5 g/dL (3.4-5.0); Alkaline Phosphatase 60 U/L (46-116); Anion Gap 10.5; Aspartate Amino Transferase 18 U/L (15-37); BUN Creatinine Ratio 29.4; Bilirubin Total 0.9 mg/dL (0.2-1.0); Carbon Dioxide 28.3 mmol/L (21.0-32.0); Chloride 106 mmol/L (98-107); Estimated GFR (African America >60 (>=60 mL/min/1.73m^2); Estimated GFR (Non-African Ame >60 (>=60 mL/min/1.73m^2); Globulin 3.2 g/dL; Glucose 96 mg/dL (74-106); Potassium 3.8 mmol/L (3.5-5.1); Sodium 141 mmol/L (136-145); Total Protein 6.7 g/dL (6.4-8.2)
== END 2025-01-10 09:48 | disposition home or self-care (01) ==
LOC: LAB 09:49
PROVIDERS: PCP Family Medicine; Visit Provider Family Medicine
DX: Z01.812 Encounter for preprocedural laboratory examination (principal); Z01.818 Encounter for other preprocedural examination
CPT/HCPCS: 36415; 80053; 85025; 85610; 85730

== ENCOUNTER 2025-04-17 12:35 | Outpatient (OUT) | payer MEDICARE, SELFPAY ==
[2025-04-17 13:27] LABS: Free T3 12.85 pg/mL (2.18-3.98); Thyroid Stimulating Hormone <0.007 uIU/mL (0.358-3.740)
[2025-04-17 13:49] LABS: Free T4 2.86 ng/dL (0.76-1.46)
== END 2025-04-17 12:36 | disposition home or self-care (01) ==
LOC: LAB 12:37
PROVIDERS: PCP Family Medicine; Visit Provider Family Medicine
DX: R94.6 Abnormal results of thyroid function studies (principal)
CPT/HCPCS: 36415; 84439; 84443; 84481

== ENCOUNTER 2025-04-23 17:22 | Observation (INO) | payer MEDICARE, SELFPAY ==
--- OUTSIDE RECORDS SUMMARY | 2025-04-03 06:00 | XMS_ITS ---
Author Organization [facility] [place] Address [address] [place] [address] Care Team Providers Care Balloon Artist Name Role Phone Gilberto Zelaya Primary Care Provider Provider, Radiology Unavailable [phone] REASON FOR VISIT Radiology Billing Encounters Encounter Location Date Provider Diagnosis Radiology 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 Assessments Encounter Date Diagnosis (ICD Code) Assessment Notes Treatment Notes Treatment Clinical Notes Section Notes 04/03/2025 Nontoxic single thyroid nodule (ICD-10 - E04.1) Plan Of Treatment Next Appt Details Provider Name:Gilberto Zelaya, 11:00:00 AM, [address] [place], [address], Provider Name:Sarah Nguyen , 07/14/2025 11:00:00 AM, [address], [address] [place], [address], Progress Notes * Anjelica AGARWALDOB:[birth year] (69 yo F)Acc No.[id number]:04/03/2025 Progress Note Patient: Ismael Anjelica HERRERA Provider: R adiology Provider :1955 A ge:69 Y S ex:Female Date:04/03/2025 Address:[place], [id number] Pcp:Gilberto Zelaya Subjective: * Chief Complaints: * R adiology Billing * Active Problem List K80.20 Calculus of gallblad libby without cholecystitis without obstruction Modified On:02/04/2023 Status:confirmed M43.17 Spondylolisthesis, l umbosacral region Modified On:11/12/2023U Status:confirmed M19.90 Unspecified osteoart hritis, unspecified site Modified On:02/25/2023 Status:confirmed K21.9 Gastro-esophageal re flux disease without esophagitis Modified On:03/05/2023 Status:confirmed I10 Essential (primary) hypertension Modified On:12/30/2023 Status:confirmed G47.30 Sleep apnea Modified On:11/12/2023 Status:confirmed G25.81 Restless leg syndrom e Modified On:12/30/2023 Status:confirmed E05.00 Graves disease Modified On:01/04/2024 Status:confirmed L25.9 Contact dermatitis Modified On:03/11/2024 Status:confirmed L03.90 Cellulitis Modified On:03/11/2024 Status:confirmed R94.6 Low TSH level Modified On:03/17/2024 Status:confirmed E04.1 Thyroid nodule Modified On:07/04/2024 Status:confirmed 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 N ontoxic single thyroid nodule - E04.1 Plan: * Treatment: * Procedure Codes: 7 6536 US EXAM OF HEAD AND NECK * * Electronically signed by [facility] [employer] on 04/04/2025 at 07:44 AM EDT Sign off status: Completed Visit Status: C HK (Check Out) true * Provider: Jose Cruz talavera Provider Date: 0 04/03/2025 Generated for Edward diamond/[place] on: 0 04/23/2025 05:28 PM EDT
--- OUTSIDE RECORDS SUMMARY | 2025-04-10 08:30 | XMS_ITS | Encounter Summary ---
Author Organization [facility] Address [address] [place] [address] Care Team Providers Care Marker Machine Name Role Phone Vick Zelaya MD Primary Care Provider [phone] Reason for Visit * Rehabilitation - Outpatient (Routine) - Authorized Specialty Diagnoses / Procedures Referred By Contac t Referred To Contact Physical Therapy Diagnoses Other spondylosis with myelopathy, lumbar region Procedures [place] PHYSICAL THERAPY EVALUATION LOW COMPLEX 20 MINS [place] OFFICE/OUTPATIENT NEW HIGH MDM 60 MINUTES Bernardo Carson MD [address] [place] [address] Phone: tel: fax: Sofi Pyle PT Referral ID Status Reason Start Date Expiration Date V isits Requested Visits Authorized [id number] Authorized 03/10/2025 10/18/2025 30 30 Encounter Details Date Type Department Care Team (Late st Contact Info) Description 04/10/2025 8:30 AM EDT Treatment [facility] [address] [facility] [address] [place] [address] Kenny Terry PTA Other spondylosis with myelopathy, lumbar region (Primary Dx) Social History Tobacco Use Types Packs/Day Years Used Date Smoking Tobacco: Never Smokeless Tobacco: Never Alcohol Use Standard Drinks/Week Comments Yes 0 (1 standard drink = 0.6 oz pure alcohol) 1 or 2 drinks/day, monthly or less; Caffeine: 1-2 cups/day AUDIT-C Answer Date Recorded Q1: How often do you have a drink containing alc ohol? Monthly or less 11/24/2023 Q2: How many drinks containi ng alcohol do you have on a typical day when you are drinking? 1 or 2 11/24/2023 Q3: How often do you have si x or more drinks on one occasion? Never 11/24/2023 Comments No Sex and Gender Information Value Date Recorded Sex Assigned at Not on file Legal Sex Female 8:14 PM EDT Gender Identity Not on file Sexual Orientation Not on file documented as of this encounter Progress Notes * Kenny Terry, OTOLARYNGOLOGY SURGEON - 04/10/2025 8:30 AM EDT Images from the original note were not included. Physical Therapy Treatment Visit Patient Name: Gladys Holliday Today's Date: 04/10/2025 Encounter Diagnoses Name Primary? Other spondylosis with myelopathy, lumbar region Yes Visit number: 13 Timed Code Treatment Minutes: 30 minutes Total Treatment Time: 60 minutes Time In: 829 Time Out: 929 History: Pt underwent lumbar surgery on January 31. Pt states 4 screws were placed in low back. States L5/S1 region was the worst. Was seen by Dr yesterday and everything looks good. Pt states Dr believe she is doing too much. States she was told she should not be lifting any greater than 10 pounds. Pt states she had been having pain down left LE for about 10 years prior to surgery, states she iscurrently without left LE pain. Pt states she was wearing brace initially but now only has to wear if walking long distances. Precautions: [place] Subjective: Pt states she is having less pain but still noticing weakness in legs. Pain: 5/10. Objective: PT Evaluation (03/10/2025) LUMBAR SPINE AROM: flexion, extension, bilateral SB are WF with increase left LBP end range left SB Gait: TUG without use of device: 13.82 seconds Strength: bilateral hip flexion 4-/5, right hip abduction 3/5, left hip abduction 3-/5; bilateral knee extension 4/5; bilateral ankle 4-/5; core strength is fair Special Test: negative slump bilateral Functional: Sit to Stand: 17.70 seconds with arms across chest Neurological: Reflexes: not tested Myotomes: negative bilateral Dermatomes: negative bilateral Special Test: negative clonus Treatment: Education: HEP education with demonstration, Educated on Eval Findings and POC Manual Therapy: Passive ROM, Joint mobilization, Soft Tissue Mobilization, Myofascial Release, Muscle Energy Technique, Neural Mobilization, Myofascial Cupping, Dry Needling, IASTM, and Scar mobilization as needed. Therapeutic Exercise: (30 minutes / 60 minutes total) Strength, Endurance, Flexibility, ROM, HEP, Neural Mobilization, Power, and Core Stability as needed. Pt performed exercises per grid to increasecore and bilateral LE strength. 10 minutes Nustep unsupervised. Therapeutic Activity: Exercises to improve dynamic activities, functional tasks, functional mobility to return to prior activity level as needed. Neuromuscular re-education: () Balance Training, Muscle Facilitation, Dynamic Stability, Core Stabilization, and Blood Flow Restriction Training (BFRT) as needed. Modalities: (declined this date) IFC/HP to left low back pain and buttock in supine for pain. . Assessment: Pt has completed 13 PT sessions following lumbar surgery. Cueing during exercises for proper form and technique. Slowly progressing reps and resistance to improve strength. Sitting rest breaks given as needed due to pain and reports of LE fatigue. Will continue to progress as able. Outcome Measure: Back Index: 16/50 Rehab Diagnosis: low back pain, bilateral LE weakness, decrease mobility, difficulty walking Short Term Goal: To be met in 2 weeks Goal 1: Pt to be instructed in home exercise program. - met Auto Tech Goals: To be met in 10 weeks Goal 1: Pt to report independence and compliance with home program. - met and progressing Goal 2: Pt to report pain no greater than 2/10 with function tasks, ADL's, and work related activities.- progressing Goal 3: Pt to achieve 4-/5 strength bilateral hip abduction to assist with functional activities. Goal 4: Pt to complete 5 sit to stands with arms across chest in less than 14.0 seconds indicating improved functional strength and endurance. Goal 5: Pt to completed TUG in less than 11.0 seconds indicating improved gait and stability. - met Goal 6: Pt to score no greater than 7/50 on Back Index indicating improved QOL. - progressing Pt will benefit from skilled PT for 3x/week from 03/10/2025 to 05/19/2025 to address the above impairments. I hereby deem this POC medically necessary. Please sign below. Date: Cosigned by Sofi Pyle, PT at 04/10/2025 2:30 PM EDT documented in this encounter Plan of Treatment Upcoming Encounters Date Type Department Care Team (Late st Contact Info) Description 04/26/2025 9:00 AM EDT Treatment [facility] [address] [facility] [address] [place] [address] Kenny Terry, OTOLARYNGOLOGY SURGEON 05/02/2025 9:30 AM EDT Treatment [facility] [address] [facility] [address] [place] [address] Kenny Terry, OTOLARYNGOLOGY SURGEON 12/04/2025 10:00 AM EST Office Visit [facility] [address] [facility] [address] [id number] Antionette Yang PA [address] [facility] [address] [place], [place] [id number] documented as of this encounter Visit Diagnoses Diagnosis Other spondylosis with myelopathy, lumbar region- Primary documented in this encounter Care Teams Marker Machine Relationship Specialty Start Date End Date Vick Zelaya MD PCP - General Family Medicine 05/21/23 documented as of this encounter
--- OUTSIDE RECORDS SUMMARY | 2025-04-12 09:00 | XMS_ITS | Encounter Summary ---
Author Organization [facility] Address [address] [place] [address] Care Team Providers Care Car Repairer Pullman Name Role Phone Vick Zelaya MD Primary Care Provider [phone] Reason for Visit * Rehabilitation - Outpatient (Routine) - Authorized Specialty Diagnoses / Procedures Referred By Contac t Referred To Contact Physical Therapy Diagnoses Other spondylosis with myelopathy, lumbar region Procedures IN PHYSICAL THERAPY EVALUATION LOW COMPLEX 20 MINS IN OFFICE/OUTPATIENT NEW HIGH MDM 60 MINUTES Bernardo Carson MD [address] [facility] [address] [place] [address] Phone: tel: fax: Sofi Pyle PT Referral ID Status Reason Start Date Expiration Date V isits Requested Visits Authorized [id number] Authorized 03/10/2025 10/18/2025 30 30 Encounter Details Date Type Department Care Team (Late st Contact Info) Description 04/12/2025 9:00 AM EDT Treatment [facility] [address] [place] [address] [place] [address] Kenny Terry PTA Other spondylosis with myelopathy, [...] this encounter Progress Notes * Kenny Terry, BINDERY SUPERVISOR - 04/12/2025 9:00 AM EDT Images from the original note were not included. Physical Therapy Treatment Visit Patient Name: Gladys Holliday Today's Date: 04/12/2025 Encounter Diagnoses Name Primary? Other spondylosis with myelopathy, lumbar region Yes Visit number: 14 Timed Code Treatment Minutes: 30 minutes Total Treatment Time: 60 minutes Time In: 0900 Time Out: 1005 History: Pt underwent lumbar surgery on January [...] to wear if walking long distances. Precautions: [place] Subjective: Pt states she is having less pain but still noticing weakness in legs but getting better. Pain: 5/10. Objective: PT Evaluation (03/10/2025) LUMBAR [...] as needed. Therapeutic Exercise: (30 minutes / 50 minutes total) Strength, Endurance, Flexibility, ROM, HEP, [...] Flow Restriction Training (BFRT) as needed. Modalities: (x15 minutes) IFC/HP to left low back pain and buttock in supine for pain. . Assessment: Pt has completed 14 PT sessions following lumbar surgery. Cueing during exercises for proper form and technique. Slowly progressing reps and resistance to improve strength. Pt demo improved tolerance throughout and verbalized less pain and increased ease with daily routine, still having difficulty with ascending camper steps (no railing). Pt requested 1x/week and more independent strengthening starting next week and has follow-up with doctor on 05/03 or 05/05 (could not recall exact date). Outcome Measure: Back Index: 16/50 Rehab Diagnosis: low back pain, bilateral LE weakness, decrease mobility, difficulty walking Short Term Goal: To be met in 2 weeks Goal 1: Pt to be instructed in home exercise program. 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 Goals: To be met in 10 weeks [...] Date: Cosigned by Sofi Pyle, PT at 04/12/2025 1:40 PM EDT documented in this encounter Plan of Treatment Upcoming Encounters Date Type Department Care Team (Late st Contact Info) Description 04/26/2025 9:00 AM EDT Treatment [facility] [address] [place] [address] [place] [address] Kenny Terry, BINDERY SUPERVISOR 05/02/2025 9:30 AM EDT Treatment [facility] [address] [place] [address] [place] [address] Kenny Terry, BINDERY SUPERVISOR 12/04/2025 10:00 AM EST Office Visit [facility] [address] [place] [address] Antionette Yang PA [address] [place] [address] documented as of this encounter Visit Diagnoses Diagnosis Other spondylosis with myelopathy, lumbar region- Primary documented in this encounter Care Teams Car Repairer Pullman Relationship Specialty Start Date End Date Vick Zelaya MD PCP - General Family Medicine 05/21/23 documented as of this encounter
--- OUTSIDE RECORDS SUMMARY | 2025-04-13 05:00 | XMS_ITS ---
Author Organization [facility] in [place] Address [address] [place] [address] Care Team Providers Care Reroller Hand Name Role Phone Gilberto Zelaya Primary Care Provider Sarah Nguyen Unavailable [phone] Allergies Allergen (clinical drug ingredient) Drug/Non Drug Allergy documented on EMR Reaction Allergy Type Onset Date Status Substance with sulfonamide structure and antibacterial mechanism of action (substance) Sulfa Drugs (uncoded) Unknown Allergy Active Requip nausea and vomiting Drug Allergy Active gabapentin Gabapentin high BP Drug Allergy Activ e lisinopril Lisinopril cough Drug Allergy Activ e REASON FOR VISIT 6 Month Otoniel w Labs/US Medications Medication SIG (Take, Route, Frequency, Duration) Notes Start Date End Date Status Metoprolol Succinate ER 50 mg TAKE 2 TABLETS BY MOUTH DAILY for 30 Active Linzess 72 MCG 1 capsule at least 3 0 minutes before the first meal of the day on an empty stomach Orally Once a day for 30 days 01/13/2025 Active Pantoprazole Sodium 40 mg TAKE 1 TABLET BY MOUTH TWICE DAILY FOR 30 DAYS for 30 Active Social History Tobacco Use: Social History Observation Description Date Details (start date - stop date) Never Smoker NA - NA Tobacco Control (Standard) Question Answer Notes Tobacco use: Nonsmoker AUDIT-C (Standard) Question Answer Notes Did you have a drink containing alcohol in the p ast year? No Points 0 Interpretation Negative Section Notes: No ETOH Vital Signs Blood pressure systolic 108 mm Hg 04/13/20 25 Blood pressure diastolic 66 mm Hg 06/26/2 025 Heart Rate 78 /min 04/13/2025 Height 60 in 04/13/2025 Weight 144 lbs 04/13/2025 BMI 28.12 kg/m2 04/13/2025 Encounters Encounter Location Date Provider Diagnosis Endocrinology [address] [place] [address] 04/13/2025 Sarah Nguyen Low TSH level R94.6 and Thyroid nodule E04.1 Assessments Encounter Date Diagnosis (ICD Code) Assessment Notes Treatment Notes Treatment Clinical Notes Section Notes 04/13/2025 Low TSH level (ICD-10 - R94.6) On today's visit, external labs were reviewed. Patient TSH level was suppressed with elevated free T4 level. Of note patient admitted being on biotin. Patient has always had suppressed TSH level but with normal free T4 consistent with subclinical hyperthyroidism. TSI and TRAb were negative in the past. She admitted having tachycardia, palpitations tremors and hair loss. We will order thyroid uptake scan and repeat thyroid levels in a week after holding biotin 04/13/2025 Thyroid nodule (ICD-10 - E04.1) Neck ultrasound revealed a 1.6 cm right thyroid nodule and 1.3 cm left thyroid nodule. Patient denied compressive symptoms. Nodule is almost completely solid isoechoic. Given size, will consider FNA for further evaluation. Unfortunately, biopsy ws done but was unsatisfactory. We offered repeat biopsy vs repeat neck US in 02/2025 ( a year from last neck US for monitoring nodular growth). Patient opted to the latter option and we were agreeable given no cocnerning sonographic features. Patient repeat neck ultrasound was reviewed. She is known to have scattered nodules within a prominent thyroid gland suggestive of multinodular goiter. Largest nodule on the right is 1.8 cm in largest nodule on the left is 1.3 cm. Compared to previous neck ultrasound the right thyroid nodule increased in size in 2 dimensions more than 20%. Given increase in nodular size, we will recommend biopsy. However we will wait for the nuclear uptake scan Plan Of Treatment Treatment Notes Assessment Notes Low TSH level On today's visit, ex ternal labs were reviewed. Patient TSH level was suppressed with elevated free T4 level. Of note patient admitted being on biotin. Patient has always had suppressed TSH level but with normal free T4 consistent with subclinical hyperthyroidism. TSI and TRAb were negative in the past. She admitted having tachycardia, palpitations tremors and hair loss. We will order thyroid uptake scan and repeat thyroid levels in a week after holding biotin Thyroid nodule Neck ultrasound revealed a 1.6 cm right thyroid nodule and 1.3 cm left thyroid nodule. Patient denied compressive symptoms. Nodule is almost completely solid isoechoic. Given size, will consider FNA for further evaluation. Unfortunately, biopsy ws done but was unsatisfactory. We offered repeat biopsy vs repeat neck US in 02/2025 ( a year from last neck US for monitoring nodular growth). Patient opted to the latter option and we were agreeable given no cocnerning sonographic features. Patient repeat neck ultrasound was reviewed. She is known to have scattered nodules within a prominent thyroid gland suggestive of multinodular goiter. Largest nodule on the right is 1.8 cm in largest nodule on the left is 1.3 cm. Compared to previous neck ultrasound the right thyroid nodule increased in size in 2 dimensions more than 20%. Given increase in nodular size, we will recommend biopsy. However we will wait for the nuclear uptake scan Pending Test Test Name Order Date NUC MED Thyroid Uptake and Scan* 025 T3 FREE, T4 FREE and TSH 04/13/2025 Next Appt Details Provider Name:Gilberto Zelaya, 11:00:00 AM, [address] [place], [address], Provider Name:Sarah Nguyen , 07/14/2025 11:00:00 AM, [address] [facility], [place], [address], Progress Notes * Anjelica AGARWALDOB:[birth year] (69 yo F)Acc No.[id number]:04/13/2025 Established Patient: Ismael CHRISTABRITTANYAnjelica Bruno Provider: Sergei Nguyen MD :1955 A ge:69 Y S ex:Female Date:04/13/2025 Address:[address] [place] [address] [facility], [id number] Pcp:Gilberto Zelaya Check In:08:40 AM ESTCheck O ut:09:31 AM EST Subjective: * Chief Complaints: * 6 Month Otoniel w Labs/US * HPI: G eneral: Here for thyroid nodule and low tsh follow up. Having fatigue, weakness, cold intolerance, and palpitations. * ROS: N EURO: Headache d enies. N umbness d enies. ? S KIN: Rash i tching . G eneral/Constitutional: Loss of Appetite d enies. W eakness A dmits. B lurred vision D enies. D ouble vision D enies. D enies R ecent Weight Change. S leep problems d enies. F atigue A dmits. F ever d enies. H eadache d enies. W eight gain d enies. W eight loss?denies. H ead/Neck: Limitation of Neck Movement d enies. S wollen glands?denies. E ndocrine: Overactive Thyroid (Hyperthyroid) d enies. I ncreased Thirst d enies. C old intolerance a dmits. E xcessive sweating d enies. H air loss d enies. H eat intolerance d enies. * Active Problem List K80.20 Calculus of gallblad libby without cholecystitis without obstruction Modified On:02/04/2023U Status:confirmed M43.17 Spondylolisthesis, l umbosacral region Modified On:11/12/2023 Status:confirmed M19.90 Unspecified osteoart hritis, unspecified site Modified On:02/25/2023 Status:confirmed K21.9 Gastro-esophageal re flux disease without esophagitis Modified On:03/05/2023U Status:confirmed I10 Essential (primary) hypertension Modified On:12/30/2023U Status:confirmed G47.30 Sleep apnea Modified On:11/12/2023U Status:confirmed G25.81 Restless leg syndrom e Modified On:12/30/2023U Status:confirmed E05.00 Graves disease Modified On:01/04/2024U Status:confirmed L25.9 Contact dermatitis Modified On:03/11/2024U Status:confirmed L03.90 Cellulitis Modified On:03/11/2024U Status:confirmed R94.6 Low TSH level Modified On:05/30/2024W/U Status:confirmed E04.1 Thyroid nodule Modified On:07/04/2024W/U Status:confirmed 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 Trammell 04/20/2023ilat knee replacements appendix kidney stone with stent 2000back surgery 01/30/2025 * Hospitalization/Major Diagno stic Procedure: w ith surgeries * Family History: F ather: , congestive heart failure. M other: , congestive heart failure.?Brother(s): alive, Heart Disease. S ister(s): alive. S on(s): alive. 3 brother(s) , 1 sister(s) . 3 son(s) - healthy. . * Social History: T obacco Use: T obacco Control (Standard) T obacco use: N onsmoker. D rug/Alcohol: A ALEXANDREA-C (Standard) D id you have a drink containing alcohol in the past year? N o,?Points 0 , I nterpretation N egative. N o ETOH. * Medications: T akingLinzess(linaCLOtide) 72 MCG Capsule 1 capsule at least 30 minutes before the first meal of the day on an empty stomach Orally Once a day Metoprolol Succinate ER 50 mg Tablet Extended Release 24 Hour TAKE 2 TABLETS BY MOUTH DAILY Pantoprazole Sodium 40 mg Tablet Delayed Release TAKE 1 TABLET BY MOUTH TWICE DAILY FOR 30 DAYS Medication List reviewed and reconciled with the patientTaking Linzess(linaCLOtide) 72 MCG Capsule 1 capsule at least 30 minutes before the first meal of the day on an empty stomach Orally Once a day Taking Metoprolol Succinate ER 50 mg Tablet Extended Release 24 Hour TAKE 2 TABLETS BY MOUTH DAILY Taking Pantoprazole Sodium 40 mg Tablet Delayed Release TAKE 1 TABLET BY MOUTH TWICE DAILY FOR 30 DAYS Medication List reviewed and reconciled with the patient * Allergies: S ulfa Drugs: AllergyGabapentin: high BPLisinopril: coughRequip: nausea and vomiting - Side Effectsno[Allergies Verified] Objective: * Vitals: W t:144lbs, Ht: 60 in, BP:108/66mm Hg, HR:78/min, BMI:28.12Index, Ht-cm: 152.4 cm, Wt-k.32 kg. * P ast Orders: I maging:US Thyroid (Order Date - 04/06/2025) (Performed Date - 04/03/2025) * Examination: G eneral Examinations: GENERAL APPEARANCE: A lert, well nourished, well developed.? Assessment: * Assessment: 1. L ow TSH level - R94.6 (Primary) 2 . T hyroid nodule - E04.1 ? Plan: * Treatment: 2. T hyroid nodule I maging: NUC MED Thyroid Uptake and Scan* Notes: Neck ultrasound revealed a 1.6 cm right thyroid nodule and 1.3 cm left thyroid nodule. Patient denied compressive symptoms. Nodule is almost completely solid isoechoic. Given size, will consider FNA for further evaluation. Unfortunately, biopsy ws done but was unsatisfactory. We offered repeat biopsy vs repeat neck US in 02/2025 ( a year from last neck US for monitoring nodular growth). Patient opted to the latter option and we were agreeable given no cocnerning sonographic features. Patient repeat neck ultrasound was reviewed. She is known to have scattered nodules within a prominent thyroid gland suggestive of multinodular goiter. Largest nodule on the right is 1.8 cm in largest nodule on the left is 1.3 cm. Compared to previous neck ultrasound the right thyroid nodule increased in size in 2 dimensions more than 20%. Given increase in nodular size, we will recommend biopsy. However we will wait for the nuclear uptake scan * Procedure Codes: * Preventive Medicine: Screenings/Counseling: B WA ACTION PLAN A ector Normal BMI Follow-up D ietary management education, guidance, and counseling. F ALL RISK SCREENING F all Risk Assessment: N o falls in the past year. * * Sign off status: Completed Visit Status: C HK (Check Out) true * Provider: Sergei Nguyen MD Date: 0 04/13/2025 Generated for Edward diamond/Shea/Celsoitting on: 0 04/23/2025 05:27 PM EDT History and Physical Notes * HPI (History of Present Illness) Category Sub-Category Detail Notes Category Not es General Here for thyroi d nodule and low tsh follow up. Having fatigue, weakness, cold intolerance, and palpitations. Examination Category Sub-Category Detail Notes Category Not es General Examinations GENERAL APPEARANCE: Alert, well nourished, well developed
--- OUTSIDE RECORDS SUMMARY | 2025-04-14 09:30 | XMS_ITS | Encounter Summary ---
Author Organization [facility] Address [address] [place] [address] Care Team Providers Care Veneer Department Manager Name Role Phone Vick Zelaya MD Primary Care Provider [phone] Reason for Visit * Rehabilitation - Outpatient (Routine) - Authorized Specialty Diagnoses / Procedures Referred By Contac t Referred To Contact Physical Therapy Diagnoses Other spondylosis with myelopathy, lumbar region Procedures MN PHYSICAL THERAPY EVALUATION LOW COMPLEX 20 MINS MN OFFICE/OUTPATIENT NEW HIGH MDM 60 MINUTES Bernardo Carson MD [address] [facility] [facility] [address] [place] [address] Phone: tel: fax: Sofi Pyle PT Referral ID Status Reason Start Date Expiration Date V isits Requested Visits Authorized [id number] Authorized 03/10/2025 10/18/2025 30 30 Encounter Details Date Type Department Care Team (Late st Contact Info) Description 04/14/2025 9:30 AM EDT Treatment [facility] [address] [facility] [address] [place] [address] Kenny Terry PTA Other spondylosis with myelopathy, [...] this encounter Progress Notes * Kenny Terry, SYSTEMS DESIGN ENGINEER - 04/14/2025 9:30 AM EDT Images from the original note were not included. Physical Therapy Treatment Visit Patient Name: Gladys Holliday Today's Date: 04/14/2025 Encounter Diagnoses Name Primary? Other spondylosis with myelopathy, lumbar region Yes Visit number: 15 Timed Code Treatment Minutes: 30 minutes Total Treatment Time: 70 minutes Time In: 0930 Time Out: 1040 History: Pt underwent lumbar surgery on January 31. Pt states 4 screws were placed in low back. States L5/S1 region was the worst. Was seen by yesterday and everything looks good. Pt states [...] to wear if walking long distances. Precautions: [place] Subjective: Pt states she is having no pain this date but still experiencing weakness. Pain: 5/10. Objective: PT Evaluation (03/10/2025) LUMBAR [...] as needed. Therapeutic Exercise: (30 minutes / 55 minutes total) Strength, Endurance, Flexibility, ROM, HEP, [...] for pain. . Assessment: Pt has completed 15 PT sessions following lumbar surgery. Cueing during exercises for proper form and technique. Slowly progressing reps and resistance to improve strength. Pt demo improved tolerance throughout and verbalized less pain and increased ease with daily routine. Continue progressing towards goals. Pt has follow-up with doctor on 05/03 or 05/05 (could not recall exact date). Outcome Measure: Back Index: 16/50 Rehab Diagnosis: low back pain, bilateral LE weakness, decrease mobility, difficulty walking Short Term Goal: To be met in 2 weeks Goal 1: Pt to be instructed in home exercise program. - met Mcc Goals: To be met in 10 weeks [...] Date: Cosigned by Sofi Pyle, PT at 04/14/2025 11:52 AM EDT documented in this encounter Plan of Treatment Upcoming Encounters Date Type Department Care Team (Late st Contact Info) Description 04/26/2025 9:00 AM EDT Treatment [facility] [address] [facility] [place] [address] Kenny Terry, SYSTEMS DESIGN ENGINEER 05/02/2025 9:30 AM EDT Treatment [facility] [address] [facility] [place] [address] Kenny Terry, SYSTEMS DESIGN ENGINEER 12/04/2025 10:00 AM EST Office Visit [facility] [address] [facility] [place] [id number] Antionette Yang PA [address] [place] [address] documented as of this encounter Visit Diagnoses Diagnosis Other spondylosis with myelopathy, lumbar region- Primary documented in this encounter Care Teams Veneer Department Manager Relationship Specialty Start Date End Date Vick Zelaya MD PCP - General Family Medicine 05/21/23 documented as of this encounter
--- OUTSIDE RECORDS SUMMARY | 2025-04-17 16:59 | XMS_ITS ---
Author Organization [facility] in [place] Address [address] [place] [address] Care Team Providers Care Cotton Factor Name Role Phone Gilberto Zelaya Primary Care Provider REASON FOR VISIT lab results Encounters Encounter Location Date Provider Diagnosis [address] [address] 04/17/2025 Gilberto Nathalie Plan Of Treatment Next Appt Details Provider Name:Gilberto Sergei Zelaya, 11:00:00 AM, [address] [place], [address], Provider Name:Sarah Nguyen , 07/14/2025 11:00:00 AM, [address] [facility], [place], [address], Progress Notes * Anjelica AGARWALDOB:[birth year] (69 yo F)Acc No.[id number]:04/17/2025 Patient: Ismael Anjelica HRERERA :1955 A ge:69 Y S ex:Female Address:[address] [place], [address] * true * Date: Generated for Printi ng/Faxing/eTransmitting on: 0 04/23/2025 05:28 PM EDT
--- OUTSIDE RECORDS SUMMARY | 2025-04-18 11:30 | XMS_ITS | Encounter Summary ---
Author Organization [facility] Address [address] [place] [address] Care Team Providers Care Monotypist Name Role Phone Vick Zelaya MD Primary Care Provider [phone] Reason for Visit * Rehabilitation - Outpatient (Routine) - Authorized Specialty Diagnoses / Procedures Referred By Contac t Referred To Contact Physical Therapy Diagnoses Other spondylosis with myelopathy, lumbar region Procedures [place] PHYSICAL THERAPY EVALUATION LOW COMPLEX 20 MINS ME OFFICE/OUTPATIENT NEW HIGH MDM 60 MINUTES Bernardo Carson MD [address] [facility] [address] [facility] [address] [place] [address] Phone: tel: fax: Sofi Pyle PT Referral ID Status Reason Start Date Expiration Date V isits Requested Visits Authorized [id number] Authorized 03/10/2025 10/18/2025 30 30 Encounter Details Date Type Department Care Team (Late st Contact Info) Description 04/18/2025 11:30 AM EDT Treatment [facility] [address] [place] [address] Kenny Terry PTA Other spondylosis with myelopathy, [...] this encounter Progress Notes * Kenny Terry, FARM RANCHER - 04/18/2025 11:30 AM EDT Images from the original note were not included. Physical Therapy Treatment Visit Patient Name: Gladys Holliday Today's Date: 04/18/2025 Encounter Diagnoses Name Primary? Other spondylosis with myelopathy, lumbar region Yes Visit number: 16 Timed Code Treatment Minutes: 40 minutes Total Treatment Time: 75 minutes Time In: 1130 Time Out: 1245 History: Pt underwent lumbar surgery on January [...] to wear if walking long distances. Precautions: [place] Subjective: Pt states she is having no [...] and Scar mobilization as needed. Therapeutic Exercise: (40 minutes / 60 minutes total) Strength, Endurance, [...] for pain. . Assessment: Pt has completed 16 PT sessions following lumbar surgery. Cueing during exercises for proper form and technique. Slowly progressing reps and resistance to improve strength. Trial of LLR had difficulty with Left. Continue progressing towards goals. Pt has follow-up with doctor on 05/03 or05/05 (could not recall exact date). Outcome Measure: Back Index: 16/50 Rehab Diagnosis: low back pain, bilateral LE weakness, decrease mobility, difficulty walking Short Term Goal: To be met in 2 weeks Goal 1: Pt to be instructed in home exercise program. - met Automotive Light Mechanic Goals: To be met in 10 weeks [...] Date: Cosigned by Sofi Pyle, PT at 04/18/2025 3:45 PM EDT documented in this encounter Plan of Treatment Upcoming Encounters Date Type Department Care Team (Late st Contact Info) Description 04/26/2025 9:00 AM EDT Treatment [facility] [address] [facility] [address] [place] [address] Kenny Terry, FARM RANCHER 05/02/2025 9:30 AM EDT Treatment [facility] [address] [facility] [address] [place] [address] Kenny Terry, FARM RANCHER 12/04/2025 10:00 AM EST Office Visit [facility] [address] [facility] [place] [address] Antionette Yang PA [address] [facility] [place] [address] documented as of this encounter Visit Diagnoses Diagnosis Other spondylosis with myelopathy, lumbar region- Primary documented in this encounter Care Teams Monotypist Relationship Specialty Start Date End Date Vick Zelaya MD PCP - General Family Medicine 05/21/23 documented as of this encounter
[2025-04-23] VITALS (32 sets, daily range): BP systolic 143–164; BP diastolic 61–99; PULSE 73–94; TEMP 36.6–36.7; O2SAT 95–100; BMI 27.0; BMI 27.5
--- OUTSIDE RECORDS SUMMARY | 2025-04-23 17:28 | XMS_ITS | Encounter Summary ---
Author Organization [facility] Address [address] [place] [address] Care Team Providers Care Metal Room Dental Technician Name Role Phone Vick Zelaya MD Primary Care Provider [phone] Encounter Details Date Type Department Care Team (Late Contact Info) Description 12/15/2024 Orders Only [facility] [address] [facility] [place] [address] [place] [address] [place] [address] Social History Tobacco Use Types Packs/Day Years [...] on file documented as of this encounter Plan of Treatment Upcoming Encounters Date Type Department Care Team (Late Contact Info) Description 04/26/2025 9:00 AM EDT Treatment [facility] [address] [facility] [address] [place] [address] Kenny Terry, DANDY TENDER 05/02/2025 9:30 AM EDT Treatment [facility] [address] [facility] [address] [place] [address] Kenny Terry, DANDY TENDER 12/04/2025 10:00 AM EST Office Visit [facility] [address] [facility] [place] [address] Antionette Yang PA [address] [facility] [place] [address] documented as of this encounter Procedures Procedure Name Priority Date/Time Associated Diagnosis Comments PAP SMEAR Routine 11/28/2024 12:00 AM EST documented in this encounter Results * Pap Smear (11/28/2024 12:00 AM EST) Swab Cervical swab / Unknown us Antionette [facility]Y ORDERABLES Final Re sult EXTERNAL LAB documented in this encounter Visit Diagnoses Not on filedocumented in this encounter Care Teams Metal Room Dental Technician Relationship Specialty Start Date End Date Vick Zelaya MD PCP - General Family Medicine 05/21/23 documented as of this encounter
--- OUTSIDE RECORDS SUMMARY | 2025-04-23 17:28 | XMS_ITS | Clinical Summary ---
Author Organization [facility] Address [id number] [address] [place] [address] Care Team Providers Care [employer] Name Role Phone Unavailable Primary Care Provider Unavailabl e Social History Tobacco Use Types Packs/Day Years Used Date Smoking Tobacco: Never Assessed Childcare Answer Date Recorded Childcare Unknown 03/30/2019 Employment Answer Date Recorded Employment Unknown 03/30/2019 Comments Unknown Sex and Gender Information Value Date Recorded Sex Assigned at Not on file Legal Sex Female 11:39 AM EDT Gender Identity Not on file Sexual Orientation Not on file Last Filed Vital Signs Vital Sign Reading Time Taken Comments Blood Pressure 128/80 09/22/2013 9:17 AM EST Pulse - - Temperature - - Respiratory Rate - - Oxygen Saturation - - Inhaled Oxygen Concentration - - Weight 66.2 kg (146 lb) 09/22/2013 9:17 AM EST Height 147.3 cm (4' 10 ) 05/05/2013 10:35 AM EDT Body Mass Index 30.51 05/05/2013 10:35 AM EDT Plan of Treatment Health Maintenance Due Date Last Done Comments Depression Screening 1969 Tobacco Screening 1969 Adult BMI Screening 1975 DTaP,Tdap and Td Vaccines (1 - Tdap) 1976 Fall Risk Screening 2022 COVID-19 Vaccine ( season) 06/19/202402/2021, 07/02/2021 Influenza Vaccine 06/19/2025 09/16/2016 Zoster (Shingles) Vaccine Completed 02/22/2021, Medical Devices Not on file Insurance MEDICARE [facility]
--- OUTSIDE RECORDS SUMMARY | 2025-04-23 17:28 | XMS_ITS | Encounter Summary ---
Author Organization [facility] Address [address] [place] [address] Care Team Providers Care Outside Physical Damage Appraiser Name Role Phone Vick Zelaya MD Primary Care Provider [phone] Encounter Details Date Type Department Care Team (Late Contact Info) Description 06/03/2023 Abstract [facility] [address] [place] [phone] Sydnie Saavedra, DPM [address] [place], [place] [phone] Social History Tobacco Use Types Packs/Day Years Used Date Smoking Tobacco: Never Smokeless Tobacco: Never Alcohol Use Standard Drinks/Week Comments Yes 0 (1 standard drink = 0.6 oz pure alcohol) 1 or 2 drinks/day, monthly or less; Caffeine: 1-2 cups/day Comments Unknown Sex and Gender Information Value Date Recorded Sex Assigned at Not on file Legal Sex Female 8:14 PM EDT Gender Identity Not on file Sexual Orientation Not on file documented as of this encounter Plan of Treatment Upcoming Encounters Date Type Department Care Team (Late Contact Info) Description 04/26/2025 9:00 AM EDT Treatment [facility] [address] [facility] [address] [place] [address] Kenny Terry PTA 05/02/2025 9:30 AM EDT Treatment [facility] [address] [facility] [address] [place] [address] Kenny Terry, CLOUD ARCHITECT 12/04/2025 10:00 AM EST Office Visit [facility] [address] [place] [phone] Antionette Yang PA [address] [facility] [place] [address] documented as of this encounter Visit Diagnoses Not on filedocumented in this encounter Care Teams Outside Physical Damage Appraiser Relationship Specialty Start Date End Date Vick Zelaya MD PCP - General Family Medicine 05/21/23 documented as of this encounter
--- OUTSIDE RECORDS SUMMARY | 2025-04-23 17:28 | XMS_ITS | Encounter Summary ---
Author Organization [facility] Address [address] [place] [address] Care Team Providers Care Rn Hemodialysis Charge Name Role Phone Vick Zelaya MD Primary Care Provider [phone] Encounter Details Date Type Department Care Team (Late Contact Info) Description 12/23/2024 Abstract [facility] [address] [place] [address] Antionette Yang PA [address] [facility] [address] [place], [facility] Social History Tobacco Use Types Packs/Day Years [...] EDT Treatment [facility] [address] [facility] [address] [place] [address] Kenny Terry, YOUTH CARE WORKER 05/02/2025 9:30 AM EDT Treatment [facility] [address] [facility] [address] [place] [address] Kenny Terry, YOUTH CARE WORKER 12/04/2025 10:00 AM EST Office Visit [facility] [address] [facility] [place] [address] Antionette Yang PA [address] [facility] [address] [place], [place] [phone] documented as of this encounter Visit Diagnoses Not on filedocumented in this encounter Care Teams Rn Hemodialysis Charge Relationship Specialty Start Date End Date Vick Zelaya MD PCP - General Family Medicine 05/21/23 documented as of this encounter
--- OUTSIDE RECORDS SUMMARY | 2025-04-23 17:28 | XMS_ITS | Encounter Summary ---
Author Organization [facility] Address [address] [place] [address] Care Team Providers Care Sample Processor Name Role Phone Vick Zelaya MD Primary Care Provider [phone] Encounter Details Date Type Department Care Team (Latest Contact Info) Description 04/12/2025 Travel Social History Tobacco Use Types Packs/Day Years [...] CI PT [address] [facility] [address] [place] [address] Kenny Terry, ION 05/02/2025 9:30 AM EDT Treatment [facility] [address] [facility] [address] [place] [address] Kenny Terry, CREASING AND CUTTING PRESS FEEDER 12/04/2025 10:00 AM EST Office Visit [facility] [address] [facility] [place] [phone] Antionette Yang PA [address] [facility] [place] [address] documented as of this encounter Visit Diagnoses Not on filedocumented in this encounter Care Teams Sample Processor Relationship Specialty Start Date End Date Vick Zelaya MD PCP - General Family Medicine 05/21/23 documented as of this encounter
--- OUTSIDE RECORDS SUMMARY | 2025-04-23 17:28 | XMS_ITS | Encounter Summary ---
Author Organization [facility] Address [address] [place] [address] Care Team Providers Care Skid Worker Name Role Phone Vick Zelaya MD Primary Care Provider [phone] Encounter Details Date Type Department Care Team (Latest Contact Info) Description 04/10/2025 Travel Social History Tobacco Use Types Packs/Day [...] CI PT [address] [facility] [address] [place] [address] Kenny Terry, ION 05/02/2025 9:30 AM EDT Treatment [facility] [address] [facility] [address] [place] [address] Kenny Terry, RETAIL MORTGAGE BANKER 12/04/2025 10:00 AM EST Office Visit [facility] [address] [facility] [place] [phone] Antionette Yang PA [address] [place] [address] documented as of this encounter Visit Diagnoses Not on filedocumented in this encounter Care Teams Skid Worker Relationship Specialty Start Date End Date Vick Zelaya MD PCP - General Family Medicine 05/21/23 documented as of this encounter
--- OUTSIDE RECORDS SUMMARY | 2025-04-23 17:28 | XMS_ITS | Encounter Summary ---
Author Organization [employer] Address [id number] [address] [place] [address] Care Team Providers Care English Horn Player Name Role Phone Unavailable Primary Care Provider Unavailabl e Encounter Details Date Type Department Care Team (Late st Contact Info) Description 08/11/2024 Orders Only [facility] [place] [address] External, Scanning Provider Pain (Primary Dx) Social History Tobacco Use Types [...] as of this encounter Plan of Treatment Not on file documented as of this encounter Results * Ultrasound thyroid (03/30/2024 3:35 PM EDT) us Scanning Provider External IMG US ORDERABLES Fin al Result documented in this encounter Visit Diagnoses Diagnosis Pain- Primary Generalized pain documented in this encounter
--- OUTSIDE RECORDS SUMMARY | 2025-04-23 17:28 | XMS_ITS | Encounter Summary ---
Author Organization [facility] Address [address] [place] [address] Care Team Providers Care Recycling Assistant Name Role Phone Vick Zelaya MD Primary Care Provider [phone] Encounter Details Date Type Department Care Team (Latest Contact Info) Description 04/14/2025 Travel Social History Tobacco Use Types Packs/Day [...] CI PT [address] [facility] [address] [place] [address] Kenny Terry, ION 05/02/2025 9:30 AM EDT Treatment [facility] [address] [facility] [address] [place] [address] Kenny Terry, COMPUTER INFORMATION SYSTEMS INSTRUCTOR 12/04/2025 10:00 AM EST Office Visit [facility] [address] [facility] [place] [phone] Antionette Yang PA [address] [facility] [place] [address] documented as of this encounter Visit Diagnoses Not on filedocumented in this encounter Care Teams Recycling Assistant Relationship Specialty Start Date End Date Vick Zelaya MD PCP - General Family Medicine 05/21/23 documented as of this encounter
--- OUTSIDE RECORDS SUMMARY | 2025-04-23 17:28 | XMS_ITS | Encounter Summary ---
Author Organization [facility] Address [id number] [address] [place] [address] Care Team Providers Care Air And Water Tester Name Role Phone Unavailable Primary Care Provider Unavailabl e Encounter Details Date Type Department Care Team (Late st Contact Info) Description 08/09/2024 Orders Only [facility] - Interventional Radiology [address] [place] [address] Sarah Nguyen MD [address] [place] [address] Thyroid nodule (Primary Dx) Social History Tobacco Use Types [...] on file documented as of this encounter Visit Diagnoses Diagnosis Thyroid nodule- Primary Nontoxic uninodular goiter documented in this encounter
--- OUTSIDE RECORDS SUMMARY | 2025-04-23 17:28 | XMS_ITS | Clinical Summary ---
Author Organization [facility] Address [address] [place] [address] Care Team Providers Care Payment Rep Name Role Phone Vick Zelaya MD Primary Care Provider [phone] Allergies Active Allergy Reactions Criticality Noted Date Comments Baclofen 11/28/2024 Other Reaction(s): Hand pain, Hot flashes, Numbness of limbs, Weakness of bilateral lower extremities, Weakness of bilateral upper extremities Duloxetine Medium 07/08/2024 Other Reaction(s): Vomiting Gabapentin Headache 09/15/2023 Lisinopril 05/21/2023 Other Reaction(s): Coughing Sulfa Antibiotics 05/21/2023 Other Reaction(s): Unknown Medications pantoprazole (ProtoNix) 40 MG EC tablet Take 40 mg by mouth in the morning. Take before meals. Do not crush, chew, or split. . Active metoprolol succinate XL (Toprol-XL) 25 MG 24 hr tablet Take 50 mg by mouth. Do not crush or chew. Active losartan (Cozaar) 25 MG tablet Take 100 mg by mouth. Active sucralfate (Carafate) 1 GM/10ML suspension Take 1 g by mouth every 6 (six) hours. Active rOPINIRole (Requip) 0.5 MG tablet Take 0.5 mg by mouth at bedtime Active hydroCHLOROthiazi de (Microzide) 12.5 MG capsule Take 12.5 mg by mouth in the morning. Active alendronate (Fosamax) 70 MG tabletIndications :Other osteoporosis, unspecified pathological fracture presence Take 1 tablet (70 mg) by mouth every 7 (seven) days Take in the morning with a full glass of water, on an empty stomach, and do not take anything else by mouth or lie down for the next 30 min. 4 tablet 6 4 Active Active Problems Problem Noted Date Diagnosed Date Hallux valgus with bunions of right foot 023 Encounters Date Type Department Care Team Description 04/18/2025 11:30 AM EDT Treatment [facility] [address] [facility] [address] [place] [address] Kenny Terry, ION Other spondylosis with myelopathy, lumbar region (Primary Dx) 04/18/2025 Bamboo flowsheet [facility] [address] [facility] [address] [place] [address] Kenny Terry, ASSISTANT PROJECT ENGINEER 04/18/2025 Travel 04/14/2025 9:30 AM EDT Treatment [facility] [address] [facility] [address] [place] [address] Kenny Terry, ASSISTANT PROJECT ENGINEER Other spondylosis with myelopathy, lumbar region (Primary Dx) 04/14/2025 Bamboo flowsheet [facility] [address] [facility] [address] [place] [address] Kenny Terry, ASSISTANT PROJECT ENGINEER 04/14/2025 Travel 04/12/2025 9:00 AM EDT Treatment [facility] [address] [facility] [address] [place] [address] Kenny Terry, ASSISTANT PROJECT ENGINEER Other spondylosis with myelopathy, lumbar region (Primary Dx) 04/12/2025 Travel 04/10/2025 8:30 AM EDT Treatment [facility] [address] [facility] [address] [place] [address] Kenny Terry, ASSISTANT PROJECT ENGINEER Other spondylosis with myelopathy, lumbar region (Primary Dx) 04/10/2025 Bamboo flowsheet [facility] [address] [facility] [address] [place] [address] Kenny Terry, ASSISTANT PROJECT ENGINEER 04/10/2025 Travel 04/07/2025 9:30 AM EDT Treatment [facility] [address] [facility] [address] [place] [address] Hong Paige, ASSISTANT PROJECT ENGINEER Other spondylosis with myelopathy, lumbar region (Primary Dx) 04/07/2025 Bamboo flowsheet [facility] [address] [facility] [address] [place] [address] Hong Paige, ASSISTANT PROJECT ENGINEER 04/07/2025 Travel 04/05/2025 11:00 AM EDT Treatment [facility] [address] [facility] [address] [place] [address] Sofi Pyle, PT Other spondylosis with myelopathy, lumbar region (Primary Dx) 04/05/2025 Bamboo flowsheet [facility] [address] [facility] [address] [place] [address] Sofi Pyle, PT 04/05/2025 Travel 04/03/2025 2:00 PM EDT Treatment [facility] [address] [facility] [address] [place] [address] Sofi Pyle, PT Other spondylosis with myelopathy, lumbar region (Primary Dx) 04/03/2025 Bamboo flowsheet [facility] [address] [facility] [address] [place] [address] Sofi Pyle, PT 04/03/2025 Travel 03/31/2025 10:30 AM EDT Treatment [facility] [address] [facility] [address] [place] [address] Hong Paige, ASSISTANT PROJECT ENGINEER Other spondylosis with myelopathy, lumbar region (Primary Dx) 03/31/2025 Bamboo flowsheet [facility] [address] [facility] [address] [place] [address] Hong Paige, ASSISTANT PROJECT ENGINEER 03/31/2025 Travel 03/29/2025 11:00 AM EDT Treatment [facility] [address] [facility] [address] [place] [address] Sofi Pyle, PT Other spondylosis with myelopathy, lumbar region (Primary Dx) 03/29/2025 Bamboo flowsheet [facility] [address] [facility] [address] [place] [address] Sofi Pyle, PT 03/29/2025 Travel 03/27/2025 12:00 PM EDT Treatment [facility] [address] [facility] [address] [place] [address] Sofi Pyle, PT Other spondylosis with myelopathy, lumbar region (Primary Dx) 03/27/2025 Bamboo flowsheet [facility] [address] [facility] [address] [place] [address] Sofi Pyle, PT 03/27/2025 Travel 03/24/2025 12:00 PM EDT Treatment [facility] [address] [facility] [address] [place] [address] Kenny Terry, ASSISTANT PROJECT ENGINEER Other spondylosis with myelopathy, lumbar region (Primary Dx) 03/24/2025 Bamboo flowsheet [facility] [address] [facility] [address] [place] [address] Kenny Terry, ASSISTANT PROJECT ENGINEER 03/24/2025 Travel 03/22/2025 12:00 PM EDT Treatment [facility] [address] [facility] [address] [place] [address] Kenny Terry, ASSISTANT PROJECT ENGINEER Other spondylosis with myelopathy, lumbar region (Primary Dx) 03/22/2025 Bamboo flowsheet [facility] [address] [facility] [address] [place] [address] Kenny Terry, ASSISTANT PROJECT ENGINEER 03/22/2025 Travel 03/20/2025 12:00 PM EDT Treatment [facility] [address] [facility] [address] [place] [address] Kenny Terry, ASSISTANT PROJECT ENGINEER Other spondylosis with myelopathy, lumbar region (Primary Dx) 03/20/2025 Bamboo flowsheet [facility] [address] [facility] [address] [place] [address] HarrisonKenny, ASSISTANT PROJECT ENGINEER 03/20/2025 Travel 03/17/2025 12:00 PM EDT Treatment [facility] [address] [facility] [address] [place] [address] Kenny Terry, ASSISTANT PROJECT ENGINEER Other spondylosis with myelopathy, lumbar region (Primary Dx) 03/17/2025 Bamboo flowsheet [facility] [address] [facility] [address] [place] [address] Kenny Terry, ASSISTANT PROJECT ENGINEER 03/17/2025 Travel 03/14/2025 3:00 PM EDT Treatment [facility] [address] [facility] [address] [place] [address] Kenny Terry, ASSISTANT PROJECT ENGINEER Other spondylosis with myelopathy, lumbar region (Primary Dx) 03/14/2025 Bamboo flowsheet [facility] [address] [facility] [address] [place] [address] HarrisonKenny, ASSISTANT PROJECT ENGINEER 03/14/2025 Travel 03/10/2025 9:30 AM EDT Evaluation [facility] [address] [facility] [address] [place] [address] Sofi Pyle, PT Other spondylosis with myelopathy, lumbar region (Primary Dx) 03/10/2025 Plan of Care Documentation [facility] [address] [facility] [address] [place] [address] 03/10/2025 Bamboo flowsheet [facility] [address] [facility] [address] [place] [address] Sofi Pyle, PT 03/10/2025 Travel 03/09/2025 Telephone [facility] [address] [place] [address] [place] [address] Renee Langston, TAMERA from Last 3 Months Immunizations Immunization Administration Dates Next Due Zoster, Recombinant 02/22/2021,11/12/2020 Family History Medical History Relation Name Comments Heart disease Father Early natural Mother Heart disease Mother Relation Name Status Comments Brother 3 Father Mother Son Alive 3 Social History Tobacco Use Types Packs/Day Years Used Date Smoking Tobacco: Never Smokeless Tobacco: Never Tobacco Cessation:Counseling Given: Not Answered Alcohol Use Standard Drinks/Week Comments Yes 0 [...] Sign Reading Time Taken Comments Blood Pressure 126/76 11/28/2024 8:59 AM EST Pulse - - Temperature - - Respiratory Rate - - Oxygen Saturation - - Inhaled Oxygen Concentration - - Weight 73.5 kg (162 lb) 11/28/2024 8:59 AM EST Height 152.4 cm (5') 08/11/2024 10:49 AM EDT Body Mass Index 31.64 08/11/2024 10:49 AM EDT Plan of Treatment Upcoming Encounters Date Type Department Care Team (Late st Contact Info) Description 04/26/2025 9:00 AM EDT Treatment [facility] [address] [facility] [address] [place] [address] Kenny Terry PTA 05/02/2025 9:30 AM EDT Treatment [facility] [address] [facility] [address] [place] [address] Kenny Terry, ION 12/04/2025 10:00 AM EST Office Visit [facility] [address] [facility] [place] [phone] Antionette Yang PA [address] [place], [place] [address] Health Maintenance Due Date Last Done Comments CT Colonography 1957 FIT-DNA 1957 FIT 1957 FOBT 1955 Sigmoidoscopy 1955 Pneumococcal Vaccine: 65+ Ye ars (1 of 1 - PCV) 2007 Influenza Vaccine (#1) 2025 Mammogram 12/14/2025 12/14/2024, 11/19, 10/22/2022, Additional history exists Colonoscopy 04/03/2033 04/03/2023 Colorectal Cancer Screening 04/03/2033 Cervical Cancer Screening Discontinued Pap Smear Discontinued 11/28/2024 HPV/Cotest Discontinued Procedures Procedure Name Priority Date/Time Associated Diagnosis Comments MM TOMOSYNTHESIS SCREENING BI 12/14/2024 11:47 AM EST PAP SMEAR Routine 11/28/2024 12:00 AM EST from Last 3 Months or Most Recently Relevant to Health Maintenance Results * MM TOMOSYNTHESIS SCREENING BI (12/14/2024 11:47 AM EST) Anatomical Region Laterality Modality Other 12/14/2024 11:4 7 AM EST Narrative 12/14/2024 11:48 [place] [address] Mammography Report Signed Patient: CHLOE AGARWAL MR#: [id number] : 1955 Acct:[id number] Age/Sex: 69 / F ADM Date: 12/14/24 Loc: MAMMO Attending Dr: Antionette Yang Ordering Physician: Antionette Yang Results: Date of Service: 12/14/24 Follow Up: Procedure(s): MM tomosynthesis screening BI Accession Number(s): [id number] cc: Antionette Yang; Vick Zelaya M.D. Patient Name: CHLOE AGARWAL MR#: [id number] : 1955 Exam Date: 12/14/2024 Ordering Doctor: [...] Treatments None Family Cancers None LOCATION: [facility] BREAST COMPOSITION: There are scattered areas [...] on 12/14/2024 at 11:47 Dictated By: Bernardo Mlyes M.D. Signed By: 12/14/24 1148 DD/ 1147 TD/TT: News Editor: Procedure Note Radiology, Radiologist, MD - 12/14/2024 [place] [address] Mammography Report Signed Patient: CHLOE AGARWAL R#: [id number] : 1955cct:[id number] Age/Sex: 69 / FADM Date: 12/14/24 Loc: MAMMO Attending Dr: Antionette Yang Ordering Physician: Antionette YangResults: Date of Service: 12/14/24Follow Up: Procedure(s): MM tomosynthesis screening BI Accession Number(s): [id number] cc: Vick Haskins M.D. Patient Name: CHLOE AGARWAL MR#: [id number] : 1955 Exam Date: 12/14/2024 Ordering Doctor: JESSICA Yang . RADIOLOGY REPORT PROCEDURE: MM TOMOSYNTHESIS SCREENING BI COMPARISON: MM TOMOSYNTHESIS SCREENING BI, 11/30/2023. MG MAMM [id number] LAURA CAD, 10/22/2022. MG MAMM LAURA DIAG W CAD, 06/26/2021. MG MAMM LAURA DIAGW CAD, 09/20/2019. INDICATIONS: Screening Calculator Name NCI Breast Cancer Risk Assessment Tool 5 Year Breast Cancer Risk Not Reported. Lifetime Breast Cancer Risk Not Reported. Personal Breast Cancer No Personal Ovarian Cancer No Treatments None Family Cancers None LOCATION: [facility] BREAST COMPOSITION: There are scattered areas of fibroglandulardensity. FINDINGS: RIGHT BREAST: No significant suspicious finding. Benign-appearing calcifications are present. LEFT BREAST: No significant suspicious finding. Benign-appearing calcifications are present. There is a similar focal asymmetry laterally. DIAGNOSTIC CATEGORY 2--BENIGN FINDING. NO CHANGE FROM COMPARISON. RECOMMENDATIONS: ROUTINE MAMMOGRAM AND CLINICAL EVALUATION IN 12 MONTHS. PLEASE NOTE: A NORMAL MAMMOGRAM DOES NOT EXCLUDE THE POSSIBILITY OFBREAST CANCER. A CLINICALLY SUSPICIOUS PALPABLE LUMP SHOULD BE BIOPSIED. Dictated by: Bernardo Myles MD on 12/14/2024 at 11:40 Approved by: Bernardo Myles MD on 12/14/2024 at 11:47 Dictated By: Bernardo Myles M.D. Signed By:12/14/24 1148 DD/ 1147 TD/TT: News Editor: Antionette LOPEZ [facility] Final Result * Pap Smear (11/28/2024 12:00 AM EST) Swab Cervical swab / Unknown Antionette LOPEZ LAB CYTOLOGY ORDERABLES Final Re sult EXTERNAL LAB from Last 3 Months or Most Recently Relevant to Health Maintenance Insurance MEDICARE [facility] Care Teams Payment Rep Relationship Specialty Start Date End Date Vick Zelaya MD PCP - General Family Medicine 05/21/23
--- OUTSIDE RECORDS SUMMARY | 2025-04-23 17:28 | XMS_ITS | Encounter Summary ---
Author Organization [facility] Address [address] [place] [address] Care Team Providers Care Grocery Deliverer Name Role Phone Vick Zelaya MD Primary Care Provider [phone] Encounter Details Date Type Department Care Team (Late Contact Info) Description 12/30/2024 Abstract [facility] [address] [place] [phone] Norman Dubois, DO [address] Mary Thao, [facility] Social History Tobacco Use Types Packs/Day Years [...] Treatment [facility] [address] [address] [place] [address] Kenny Terry, TOUR ACTOR 05/02/2025 9:30 AM EDT Treatment [facility] [address] [facility] [address] [place] [address] Kenny Terry, TOUR ACTOR 12/04/2025 10:00 AM EST Office Visit [facility] [address] [place] [address] Antionette Yang PA [address] [facility] [place] [address] documented as of this encounter Visit Diagnoses Not on filedocumented in this encounter Care Teams Grocery Deliverer Relationship Specialty Start Date End Date Vick Zelaya MD PCP - General Family Medicine 05/21/23 documented as of this encounter
--- OUTSIDE RECORDS SUMMARY | 2025-04-23 17:28 | XMS_ITS | Patient Health Record ---
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 Role Phone Gilberto Zelaya Primary Care Provider [phone] Provider, Lab Unavailable [phone] Provider, Radiology Unavailable [phone] Sarah Nguyen Unavailable [phone] Allergies Allergen (clinical drug ingredient) Drug/Non Drug Allergy documented on EMR Reaction Allergy Type Onset Date Status Substance with sulfonamide structure and antibacterial mechanism of action (substance) Sulfa Drugs (uncoded) Unknown Allergy Active Requip nausea and vomiting Drug Allergy Active gabapentin Gabapentin high BP Drug Allergy Activ e lisinopril Lisinopril cough Drug Allergy Activ e Results Component Value Reference Range Notes T3 FREE, T4 FREE and TSH Reviewed date:10/06/2024 11:56:14 AM Interpretation: Performing Lab:[facility], [address] [place], [address] Notes/Report: FACILITY: [facility] [id number] T3 - FREE 3.89 (2.45 - 5.93) PG/ML T4 - FREE 1.32 (0.78 - 2.44) UG/DL hTSH 0.229 (0.470 - 4.680) mIU/L PTT Reviewed date:11/09/2024 03:06:39 PM Interpretation: Performing Lab: Notes/Report: The [facility] , Partial Thromboplastin Time 25.4 22.3-36.2 sec Performing Lab: see note ML - The [facility] LB US biopsy thyroid Reviewed date:09/23/2024 04:23:27 PM Interpretation: Performing Lab: Notes/Report: Source Facility: [facility]-[address] [place] [address] [address] Ultrasound Report Signed with Keon Patient: CHLOE AGARWAL MR#: [id number] : 1955 Acct:[id number] Age/Sex: 68 / F ADM Date: 09/02/24 Loc: US Attending Dr: Non-Staff Physician Jalil Ordering Physician: PhysicianAminata-Staff Jalil Date of Service: 09/02/24 Procedure(s): US biopsy thyroid Accession Number(s): [id number] cc: Vick Zelaya M.D.; PhysicianMayur M.D. ADDENDUM The [address] [address] Patient Name: CHLOE AGARWAL MRN: [id number] date: 1955 Sex: F Assigned Patient Location: US Current Patient Location: US Accession/Order Number: [id number] Exam Date: 09/02/2024 08:38 Report Date: 09/23/2024 08:10 At the request of: NON-STAFF PHYSICIAN Procedure: US biopsy thyroid Begin Addendum #1 COLLECTED DATE: 09/03/2024 Final Diagnosis Report for [facility] [place] Pathological Diagnosis: Nodule, right thyroid, fine needle aspiration: Unsatisfactory for evaluation. Too few epithelial cells. [place] category I. 09/07/[address] Zelaya. Faxed to Dr. Harrison Hernandez. 09/19/2024, after multiple phone calls to confirm receipt, no one from Dr. Hernandez's office returned phone call. Original Report EXAMINATION: US biopsy thyroid HISTORY: Right Thyroid Nodule COMPARISON: No relevant comparison available. TECHNIQUE: After obtaining informed consent, ultrasound-guided fine needle aspiration was performed in the usual sterile manner. FINDINGS: IMAGING: Ultrasound. BIOPSY NEEDLE: 25-gauge; 3 separate passes LOCATION: Right thyroid lobe 1. 5 cm heterogeneous nodule. SPECIMEN TYPE: Cellular tissue. LOCAL ANESTHETIC: Buffered Xylocaine. COMPLICATIONS: None. LABORATORY: Prepared slide smears and washings for cell block evaluation. OTHER: Negative. PATHOLOGY: Pending. An addendum will be added when results are available. Addendum Dictated By: Kamar Coello M.D. Addendum Signed By: 09/23/24 0 812 Addendum Cosigned By: DD/ /11/810 TD/TT: / ADDENDUM US/US biopsy thyroid IMPRESSION: 1. Uneventful ultrasound guided fine needle aspiration (FNA). 2. Pathology results are pending. Electronically authenticated by: KAMAR COELLO Date: 09/23/2024 08:10 Addendum Dictated By: Kamar Coello M.D. Addendum Signed By: 09/23/24 0 812 Addendum Cosigned By: DD/ /11/810 TD/TT: / [place] [address] Patient Name: CHLOE AGARWAL MRN: [id number] date: 1955 Sex: F Assigned Patient Location: Current Patient Location: Accession/Order Number: [id number] Exam Date: 09/02/2024 08:38 Report Date: 09/04/2024 09:25 At the request of: NON-STAFF PHYSICIAN Procedure: US biopsy thyroid EXAMINATION: US biopsy thyroid HISTORY: Right Thyroid Nodule COMPARISON: No relevant comparison available. TECHNIQUE: After obtaining informed consent, ultrasound-guided fine needle aspiration was performed in the usual sterile manner. FINDINGS: IMAGING: Ultrasound. BIOPSY NEEDLE: 25-gauge; 3 separate passes LOCATION: Right thyroid lobe 1.5 cm heterogeneous nodule. SPECIMEN TYPE: Cellular tissue. LOCAL ANESTHETIC: Buffered Xylocaine. COMPLICATIONS: None. LABORATORY: Prepared slide smears and washings for cell block evaluation. OTHER: Negative. PATHOLOGY: Pending. An addendum will be added when results are available. US/US biopsy thyroid IMPRESSION: 1. Uneventful ultrasound guided fine needle aspiration (FNA). 2. Pathology results are pending. Electronically authenticated by: KAMAR COELLO Date: 09/04/2024 09:25 Dictated By: Kamar Coello M.D. Signed By: 09/04/24926 DD/ 4 TD/TT: Relief Mate: The [address] [address] Ultrasound Report Signed with Addenda Patient: CHLOE AGARWAL MR#: [id number] : 1955 Acct:[id number] Age/Sex: 68 / F ADM Date: 09/02/24 Loc: US Attending Dr: Non-Staff Physician Jalil Ordering Physician: PhysicianJameeStaff Jalil Date of Service: 09/02/24 Procedure(s): US biopsy thyroid Accession Number(s): [id number] cc: Vick Zelaya M.D. ; PhysicianMayur M.D. ADDENDUM The [address] [id number] Patient Name: CHLOE AGARWAL MRN: [id number] date: 1955 Sex: F Assigned Patient Location: US Current Patient Location: US Accession/Order Number: [id number] Exam Date: 08:38 Report Date: 09/23/2024 08:10 At the request of: NON-STAFF PHYSICIAN Procedure: US biopsy thyroid Begin Addendum # 1 COLLECTED DATE: 09/03/2024 Final Diagnosis Report for [facility] [place] Pathological Diagnosis: Nodule, right thyroi d, fine needle aspiration: Unsatisfactory for evaluation. Too few epithelial cells. [place] category I. 09/07/[address] Zelaya. Faxed to Dr. Harrison Hernandez. 09/19/2024, after multiple phone calls to confirm receipt, no one from Dr. Hernandez's office returned phone call. Original Report EXAMINATION: US biop sy thyroid HISTORY: Right Thyro id Nodule COMPARISON: No relevant comparison available. TECHNIQUE: After obtaining informed consent, ultrasound-guided fine needle aspiration was performed in the usual sterile manner. FINDINGS: IMAGING: Ultrasound. BIOPSY NEEDLE: 25-gauge; 3 separate passes LOCATION: Right thyroid lobe 1. 5 cm heterogeneous nodule. SPECIMEN TYPE: Cellular tissue. LOCAL ANESTHETIC: Buffered Xylocaine. COMPLICATIONS: None. LABORATORY: Prepared slide smears and washings for cell block evaluation. OTHER: Negative. PATHOLOGY: Pending. An addendum will be added when results are available. Addendum Dictated By : Kamar Coello M.D. Addendum Signed By: 09/23/24 0 812 Addendum Cosigned By: DD/ /11/810 TD/TT: / ADDENDUM US/US biopsy thyroid IMPRESSION: 1. Uneventful ultrasound guided fine needle aspiration (FNA). 2. Pathology results are pending. Electronically authenticated by: KAMAR COELLO Date: 09/23/2024 08:10 Addendum Dictated By : Kamar Coello M.D. Addendum Signed By: 09/23/24 0 812 Addendum Cosigned By: DD/ /11/810 TD/TT: / [place] [address] Patient Name: CHLOE AGARWAL MRN: [id number] date: 1955 Sex: F Assigned Patient Location: Current Patient Location: Accession/Order Number: [id number] Exam Date: 08:38 Report Date: 09/04/2024 09:25 At the request of: NON-STAFF PHYSICIAN Procedure: US biopsy thyroid EXAMINATION: US biop sy thyroid HISTORY: Right Thyro id Nodule COMPARISON: No relevant comparison available. TECHNIQUE: After obtaining informed consent, ultrasound-guided fine needle aspiration was performed in the usual sterile manner. FINDINGS: IMAGING: Ultrasound. BIOPSY NEEDLE: 25-gauge; 3 separate passes LOCATION: Right thyroid lobe 1.5 cm heterogeneous nodule. SPECIMEN TYPE: Cellular tissue. LOCAL ANESTHETIC: Buffered Xylocaine. COMPLICATIONS: None. LABORATORY: Prepared slide smears and washings for cell block evaluation. OTHER: Negative. PATHOLOGY: Pending. An addendum will be added when results are available. US/US biopsy thyroid IMPRESSION: 1. Uneventful ultrasound guided fine needle aspiration (FNA). 2. Pathology results are pending. Electronically authenticated by: KAMAR COELLO Date: 09/04/2024 09:25 Dictated By: Kamar Coello M.D. Signed By: 09/04/24926 DD/ 4 TD/TT: Relief Mate: GLYCOHEMOGLOBIN A1C Reviewed date:11/09/2024 03:06:39 PM Interpretation: Performing Lab: Notes/Report: [facility] , Glycohemoglobin A1C 5.7 4.5-6.2 % ADA THERAPEUTIC TARGET < 7.0 > 7.0 ADA RECOMMENDED LIMIT 4.0 - 6.0 ACTION SUGGESTED Estimated Average Glucose 117 Performing Lab: see note ML - [facility] LB PROF 14(COMP METB) Reviewed date:11/09/2024 03:06:39 PM Interpretation: Performing Lab: Notes/Report: The [facility] , Sodium 142 136-145 mmol/L Potassium 4.0 3.5-5.1 mmol/L Chloride 106 98-107 mmol/L Carbon Dioxide 30.7 21.0-32.0 mmol/L Anion Gap 9.3 Glucose 98 74-106 mg/dL Blood Urea Nitrogen 27.0 7.0-18.0 mg/dL Creatinine 1.05 0.55-1.02 mg/dL Estimated GFR ( Amie >60 >=60 mL/min/1.73m 2 Estimated GFR (Non- Cely 52 >=60 mL/min/1.73m 2 BUN Creatinine Ratio 25.7 Calcium 8.8 8.5-10.1 mg/dL Bilirubin Total 1.1 0.2-1.0 mg/dL Aspartate Amino Transferase 16 15-37 U/L Alanine Aminotransferase 27 14-59 U/L Alkaline Phosphatase 46 46-116 U/L Total Protein 6.6 6.4-8.2 g/dL Albumin Level 3.8 3.4-5.0 g/dL Globulin 2.8 Albumin Globulin Ratio 1.4 Performing Lab: see note ML - [facility] LB RHEUMATOID FACTOR Reviewed date:11/13/2024 12:00:52 PM Interpretation: Performing Lab: Notes/Report: [facility] , Rheumatoid Factor (RF) <10.0 <14.0 IU/mL Performing Lab: see note LC - [facility] LB T4 Reviewed date:11/09/2024 03:06:39 PM Interpretation: Performing Lab: Notes/Report: The [facility] , T4 Thyroxine 9.20 4.80-13.90 ug/dL Performing Lab: see note - [facility] LB TSH Reviewed date:11/09/2024 03:06:39 PM Interpretation: Performing Lab: Notes/Report: The [facility] , Thyroid Stimulating Hormone 1.364 0.358-3.740 uIU/mL Performing Lab: see note - [facility] LB URIC ACID SERUM Reviewed date:11/09/2024 03:06:39 PM Interpretation: Performing Lab: Notes/Report: The [facility] , Uric Acid 5.3 2.6-6.0 mg/dL Performing Lab: see note - [facility] Prothrombin Time INR Reviewed date:11/09/2024 03:06:39 PM Interpretation: Performing Lab: Notes/Report: The [facility] , Prothrombin Time 10.8 9.0-11.6 sec INR 1.02 2.5-3.5 FOR PROSTHETIC HEART VALVE REPLACEMENT 2.0-3.0 CONDITIONS NOT LISTED BELOW 2.5-3.5 RECURRENT THROMBOSIS DESIRED INR: Performing Lab: see note - [facility] Erythrocyte Sedimentation Ra te Reviewed date:11/09/2024 03:06:39 PM Interpretation: Performing Lab: Notes/Report: The [facility] , Erythrocyte Sedimentation Rate 8 <=30 mm/hr Performing Lab: see note - [facility] Antistreptolysin O Ab Reviewed date:11/13/2024 12:00:52 PM Interpretation: Performing Lab: [facility]/Report: [facility] Antistreptolysin O Ab 228.9 0.0-200.0 IU/mL [address] [place], [place] [id number] Performed at: [facility] Blender: Raul Nieves PhD, Phone: [phone] Performing Lab: see note [facility] Occult Blood* Reviewed date:11/13/2024 12:00:52 PM Interpretation: Performing Lab: Notes/Report: The [facility] , Occult Blood Positive Performing Lab: see note - [facility] LB IGP,Aptima HPV,Age Gdln Reviewed date:12/03/2024 01:45:56 PM Interpretation: Performing Lab: Notes/Report: BRUSH-SPATULA CERVIX ENDOCERVIX [facility] , Age Gdln ACOG Testing Note . Clinician Provided Cytology Information L-Low Normal,H-High Normal,LL-Alert Low,HH-Alert High Performed at: [address] [place] [address] <-Panic Low,>-Panic High,A-Abnormal,AA-Crit ical Abnormal Adelina Nunez MD, Mihai Algo ACOG Adamaris... Note 01 FLAG LEGEND: No. of containers..01 ThinPrep Vial TESTS RESULT FLAG UNITS REF RANGE LAB Source.............Cerv ix;Endocervix <21 or >65 or no age provided 01 =Vika Diaz Pap IG (Image Guided) Note . [address] [facility] [place] [address] Satisfactory for evaluation. Endocervical component may not be detection of premalignant and malignant conditions of the Performed at: =Vika Diaz Performed at: cancer. Both false-positive and false-negative reports do should not be used as the sole means of detecting cervical Test Methodology: Note 03 02 SHRA[place] 03 [facility] Blender: Adelina Nunez MD, Phone: [phone] Note: Note 03 Performed at: [facility] uterine cervix. It is not a diagnostic procedure and CELLULAR CHANGES ASSOCIATED WITH ATROPHY ARE PRESENT. NEGATIVE FOR INTRAEPITHELIAL LESION OR MALIGNANCY. <-Panic Low,>-Panic High,A-Abnormal,AA-Crit ical Abnormal Shakila Ivey PhD, L-Low Normal,H-High Normal,LL-Alert Low,HH-Alert High DIAGNOSIS: 02 the use of an image guided system. Blender: Shakila Ivey PhD, Phone: [phone] This liquid based ThinPrep(R) pap test was screened with FLAG LEGEND: TESTS RESULT FLAG UNITS REF RANGE LAB [address] [place], [place] [id number] [address] [facility] [place] [address] Mali Neely, [place] [employer] ([facility]) The Pap smear is a screening test designed to aid in the Adelina Nunez MD, Specimen adequacy: 02 Performed by: 02 distinguished in cases of atrophy. [address] [facility] [place], [place] [id number] . 02 occur. Performing Lab: see note - [facility] MM tomosynthesis screening B I Reviewed date:12/14/2024 12:18:10 PM Interpretation: Performing Lab: Notes/Report: Source Facility: [place] [id number] Mammography Report Signed Patient: CHLOE AGARWAL MR#: [id number] : 1955 Acct:[id number] Age/Sex: 69 / F ADM Date: 12/14/24 Loc: MAMMO Attending Dr: Antionette Yang Ordering Physician: Antionette Yang Results: Date of Service: 12/14/24 Follow Up: Procedure(s): MM tomosynthesis screening BI Accession Number(s): [id number] cc: Antionette Yang; Vick Zelaya M.D. Patient Name: CHLOE AGARWAL MR#: [id number] : 1955 Exam Date: 12/14/2024 Ordering Doctor: [...] Treatments None Family Cancers None LOCATION: The [facility] BREAST COMPOSITION: There are scattered areas of [...] Signed By: 12/14/24 1148 DD/ 1147 TD/TT: Relief Mate: The [place] [id number] Mammography Report Signed Patient: CHLOE AGARWAL MR#: [id number] : 1955 Acct:[id number] Age/Sex: 69 / F ADM Date: 12/14/24 Loc: MAMMO Attending Dr: Antionette Yang Ordering Physician: Antionette Yang Results: Date of Service: 12/14/24 Follow Up: Procedure(s): MM tomosynthesis screening BI Accession Number(s): [id number] cc: Antionette Yang; Vick Zelaya M.D. Patient Name: CHLOE AGARWAL MR#: [id number] : 1955 Exam Date: 12/14/2024 Ordering Doctor: JESSICA Yang . RADIOLOGY REPORT PROCEDURE: MM TOMOSYNTHESIS SCREENING BI COMPARISON: MM TOMOSYNTHESIS SCREENING BI, 11/30/2023. MG MAMM SCREEN 3D LAURA CAD, 10/22/2022. MG MAMM LAURA DIAG W CAD, 06/26/2021. MG MAMM LAURA DIAG W CAD, 09/20/2019. INDICATIONS: Screening Calculator Name NCI Breast Cancer Risk Assessment Tool 5 Year Breast Cancer Risk Not Reported. Lifetime Breast Canc er Risk Not Reported. Personal Breast Canc er No Personal Ovarian Cancer No Treatments None Family Cancers None LOCATION: The [facility] BREAST COMPOSITION: There are scattered areas of fibroglandular density. FINDINGS: RIGHT BREAST: No significant suspicious finding. Benign-appearing calcifications are present. LEFT BREAST: No significant suspicious finding. Benign-appearing calcifications are present. There is a similar focal asymmetry laterally. DIAGNOSTIC CATEGORY 2--BENIGN FINDING. NO CHANGE FROM COMPARISON. RECOMMENDATIONS: ROUTINE MAMMOGRAM AN D CLINICAL EVALUATION IN 12 MONTHS. PLEASE NOTE: A ANGELO L MAMMOGRAM DOES NOT EXCLUDE THE POSSIBILITY OF BREAST CANCER. A CLINICALLY SUSPICIOUS PALPABLE LUMP SHOULD BE BIOPSIED. Dictated by: Bernardo Myles MD on 12/14/2024 at 11:40 Approved by: Bernardo Myles MD on 12/14/2024 at 11:47 Dictated By: Bernardo Myles M.D. Signed By: 12/14/24 1148 DD/ 1147 TD/TT: Relief Mate: Thyroid Reviewed date:04/03/2025 03:28:16 PM Interpretation: Performing Lab: Notes/Report: [facility] [address] [place] [address] Name: ANY Mckinley : 1955 Gender: F Referring Provider: Sarah Nguyen Exam: ULTRASOUND THYROID Exam Start: 04/03/2025 Accn: [id number] INDICATION/HISTORY: Thyroid nodule. PROCEDURE: Thyroid ultrasound. COMPARISON: Ultrasound 03/30/24. FINDINGS: Heterogeneous echotexture throughout an enlarged thyroid gland. Right thyroid lobe measures 4.9 x 2.6 x 2.0 cm. The left lobe measures 4.8 x 1.9 x 1.8 cm. Normal-thickness isthmus measures 0.2 cm. Within the right mid gland is an isoechoic solid nodule with smooth borders measuring 1.7 x 1.6 x 1.8 cm today versus 1.7 x 1.3 x 1.3 cm before. Within the left lobe is a mildly hyperechoic solid nodule with smooth borders measuring 1.3 x 0.9 x 1.0 cm today versus 1.3 x 0.9 x 0.9 cm before. IMPRESSION: 1. Scattered nodules within a prominent thyroid gland, suggesting multinodular goiter. 2. Largest nodule on the right measures 1.8 cm today versus 1.7 cm before. Largest nodule on the left is stable measuring 1.3 cm. 3. Repeat thyroid ultrasound is recommended in 12 months to assure ongoing stability. Transcribed by: ADILSON QUINTERO 04/03/2025 11:08 Sincerely, Adria Patiño MD Electronically Signed: 04/03/2025 11:35 Thank you for referring CHLOE AGARWAL to the [facility]. [facility], [id number] [facility], [place] [address] Name: ANY Mckinley : 1955 Gender: F Referring Provider: Sarah Nguyen Exam: ULTRASOUND THYROID Exam Start: 04/03/20 Accn: [id number] __ INDICATION/HISTORY: Thyroid nodule. PROCEDURE: Thyroid ultrasound. COMPARISON: Ultrasou nd 03/30/24. FINDINGS: Heterogeneous echotexture throughout an enlarged thyroid gland. Right thyroid lobe measures 4.9 x 2.6 x 2.0 cm. The left lobe measures 4.8 x 1.9 x 1.8 cm. Normal-thickness isthmus measures 0.2 cm. Within the right mid gland is an isoechoic solid nodule with smooth borders measuring 1.7 x 1.6 x 1.8 cm today versus 1.7 x 1.3 x 1.3 cm before. Within the left lobe is a mildly hyperechoic solid nodule with smooth borders measuring 1.3 x 0.9 x 1.0 cm today versus 1.3 x 0.9 x 0.9 cm before. IMPRESSION: 1. Scattered nodules within a prominent thyroid gland, suggesting multinodular goiter. 2. Largest nodule on the right measures 1.8 cm today versus 1.7 cm before. Largest nodule on the left is stable measuring 1.3 cm. 3. Repeat thyroid ultrasound is recommended in 12 months to assure ongoing stability. Transcribed by: ADILSON QUINTERO 04/03/2025 11:08 Sincerely, Adria Patiño MD Electronically Yamileth d: 04/03/2025 11:35 Thank you for referring CHLOE AGARWAL to the [facility]. FREE T3 Reviewed date:04/17/2025 09:04:17 PM Interpretation: Performing Lab: Notes/Report: The [facility] , Free T3 12.85 2.18-3.98 pg/mL Performing Lab: see note ML - [facility] LB FREE T4 Reviewed date:04/17/2025 09:04:17 PM Interpretation: Performing Lab: Notes/Report: The [facility] , Free T4 2.86 0.76-1.46 ng/dL Performing Lab: see note ML - [facility] LB TSH Reviewed date:04/17/2025 09:04:17 PM Interpretation: Performing Lab: Notes/Report: The [facility] , Thyroid Stimulating Hormone <0.007 0.358-3.740 uIU/mL Performing Lab: see note ML - [facility] LB VITAMIN D 25 [place] Reviewed date:11/09/2024 03:06:39 PM Interpretation: Performing Lab: Notes/Report: The [facility] , Vitamin D 20.1 >100 ng/mL Potential Toxicity <20 ng/mL Vit D deficient 30-100 ng/mL Vit D sufficient 20-<30 ng/mL Vit D insufficient Performing Lab: see note ML - [facility] LB LIPID PROFILE Reviewed date:11/09/2024 03:06:39 PM Interpretation: Performing Lab: Notes/Report: The [facility] , Triglycerides 114 <=150 mg/dL Cholesterol 226 <=200 mg/dL HDL Cholesterol 59 40-60 mg/dL > or =60 mg/dl - LOW CARDIOVASCULAR RISK <40 mg/dl - HIGH CARDIOVASCULAR RISK LDL Cholesterol Calculated 145.0 <100 mg/dl OPTIMAL 160-189 mg/dl HIGH >190 mg/dl VERY HIGH 130-159 mg/dl BORDERLINE HIGH 100-129 mg/dl NEAR OR ABOVE OPTIMAL VLDL CHOLESTEROL 22.8 Chol HDL Ratio 3.8 3.3 - 4.4 LOW RISK 4.4 - 7.1 AVERAGE RISK >11.0 HIGH RISK 7.1 - 11.0 MODERATE RISK Performing Lab: see note ML - [facility] LB IRON Reviewed date:11/09/2024 03:06:39 PM Interpretation: Performing Lab: Notes/Report: The [facility] , Iron 74.0 50.0-170.0 ug/dL Performing Lab: see note ML - [facility] LB INSULIN Reviewed date:11/10/2024 11:54:18 AM Interpretation: Performing Lab: Notes/Report: [facility] , Insulin 12.1 2.6-24.9 uIU/mL [address] [place], [place] [id number] Performed at: [facility] Blender: Raul Nieves PhD, Phone: [phone] Performing Lab: see note LC - [facility] LB FREE T3 Reviewed date:11/09/2024 03:06:39 PM Interpretation: Performing Lab: Notes/Report: The [facility] , Free T3 2.73 2.18-3.98 pg/mL Performing Lab: see note ML - [facility] LB CRP Reviewed date:11/09/2024 03:06:39 PM Interpretation: Performing Lab: Notes/Report: The [facility] , C Reactive Protein <0.50 <=0.50 mg/dL Performing Lab: see note - [facility] LB CBC AUTO DIFF Reviewed date:11/09/2024 03:06:39 PM Interpretation: Performing Lab: Notes/Report: The [facility] , White Blood Count 5.8 4.0-11.0 10 3/uL Red Blood Count 3.97 4.20-5.40 10 6/uL Hemoglobin 12.3 12.0-16.0 g/dL Hematocrit 38.0 36.0-48.0 % Mean Corpuscular Volume 95.7 81.0-99.0 fL Mean Corpuscular Hemoglobin 31.0 26.7-34.0 pg Mean Corpuscular HGB Conc 32.4 29.9-35.2 g/dL Red Cell Distribution Width 12.1 11.0-15.0 % Platelet Count 230 150-450 10 3/uL Mean Platelet Volume 9.6 9.5-13.5 fL Neutrophils Percent Auto 67.9 43.0-75.0 % Lymphocytes Percent Auto 21.3 20.5-60.0 % Monocytes Percent Auto 7.5 1.7-12.0 % Eosinophils Percent Auto 1.9 0.9-7.0 % Basophils Percent Auto 0.9 0.2-2.0 % Immature Granulocytes Pct Auto 0.5 0.0-0.5 % Neutrophils Absolute Auto 4.0 1.4-6.5 10 3/uL Lymphocytes Absolute Auto 1.2 1.2-3.8 10 3/uL Monocytes Absolute Auto 0.4 0.3-0.8 10 3/uL Eosinophils Absolute Auto 0.1 0.0-0.7 10 3/uL Basophils Absolute Auto 0.1 0.0-0.1 10 3/uL Immature Granulocytes Abs Auto 0.03 0.00-0.03 10 3/uL Performing Lab: see note ML - [facility] LB DARIEL by IFA Reviewed date:11/13/2024 12:00:52 PM Interpretation: Performing Lab: Notes/Report: [facility] , Antinuclear Antibodies, IFA Positive . Negative <1:80 Positive >1:80 Borderline 1:80 Homogeneous Pattern TNP . Nucleolar Pattern TNP . Speckled Pattern 1:320 . ICAP nomenclature: AC-2,4,5,29 Dense Fine Speckled pattern is noted. This pattern suggests in systemic autoimmune rheumatic diseases. the presence of DFS70 antibody which has a low prevalence Centromere Pattern TNP . Spindle Apparatus Pattern TNP . Nuclear Membrane Pattern TNP . Midbody Pattern TNP . Nuclear Dot Pattern TNP . PCNA Pattern TNP . Centriole Pattern TNP . Note: Comment . Erythematosus-Scleroder ma-Autoimmune Blender: Raul Nieves PhD, Phone: [phone] Speckled Sjogren Syndrome, Systemic Lupus Homogeneous Systemic Lupus Erythematosus, Drug Induced Erythematosus, Subacute Cutaneous Lupus, Scleroderma-diffuse, Scleroderma-Autoimmune Rheumatic Disease, Cancer Undifferentiated Connective Tissue Disease Mixed Connective Tissue Disease, Myositis Overlap Syndrome, Systemic Lupus Nuclear Primary Biliary Cholangitis, Autoimmune Autoimmune hepatitis, Juvenile Idiopathic Rheumatic Disease, Autoimmune Cytopenias, Membrane Hepatitis/Liver disease, Systemic Autoimmune Lupus, Congenital Heart Block, Myositis Overlap Syndrome, Sjogren Nucleolar Systemic Sclerosis, Scleroderma-Autoimmune Centromere Scleroderma-CREST, Limited Cutaneous SSc, [address], [place] [id number] Linear Scleroderma, Antiphospholipid Syndrome Raynaud's Phenomenon, Primary Biliary Arthritis Pattern Potential Disease Association Arterial Hypertension, Systemic Autoimmune Nuclear Dot Primary Biliary Cholangitis Myositis Overlap Syndrome, Systemic Cholangitis Performed at: [facility] Autoimmune Rheumatic Disease, Systemic Lupus Erythematosus, Chronic Syndrome, Raynaud phenomenon, Pulmonary Performing Lab: see note LC - [facility] LB PTT Reviewed date:01/10/2025 12:10:38 PM Interpretation: Performing Lab: Notes/Report: [facility] , Partial Thromboplastin Time 25.1 22.3-36.2 sec Performing Lab: see note ML - [facility] LB PROF 14(COMP METB) Reviewed date:01/10/2025 12:10:38 PM Interpretation: Performing Lab: Notes/Report: [facility] , Sodium 141 136-145 mmol/L Potassium 3.8 3.5-5.1 mmol/L Chloride 106 98-107 mmol/L Carbon Dioxide 28.3 21.0-32.0 mmol/L Anion Gap 10.5 Glucose 96 74-106 mg/dL Blood Urea Nitrogen 25.0 7.0-18.0 mg/dL Creatinine 0.85 0.55-1.02 mg/dL Estimated GFR ( Amie >60 >=60 mL/min/1.73m 2 Estimated GFR (Non- Cely >60 >=60 mL/min/1.73m 2 BUN Creatinine Ratio 29.4 Calcium 9.0 8.5-10.1 mg/dL Bilirubin Total 0.9 0.2-1.0 mg/dL Aspartate Amino Transferase 18 15-37 U/L Alanine Aminotransferase 26 14-59 U/L Alkaline Phosphatase 60 46-116 U/L Total Protein 6.7 6.4-8.2 g/dL Albumin Level 3.5 3.4-5.0 g/dL Globulin 3.2 Albumin Globulin Ratio 1.1 Performing Lab: see note ML - [facility] LB CBC AUTO DIFF Reviewed date:01/10/2025 12:10:38 PM Interpretation: Performing Lab: Notes/Report: [facility] , White Blood Count 6.6 4.0-11.0 10 3/uL Red Blood Count 4.30 4.20-5.40 10 6/uL Hemoglobin 12.8 12.0-16.0 g/dL Hematocrit 39.9 36.0-48.0 % Mean Corpuscular Volume 92.8 81.0-99.0 fL Mean Corpuscular Hemoglobin 29.8 26.7-34.0 pg Mean Corpuscular HGB Conc 32.1 29.9-35.2 g/dL Red Cell Distribution Width 12.4 11.0-15.0 % Platelet Count 238 150-450 10 3/uL Mean Platelet Volume 10.7 9.5-13.5 fL Neutrophils Percent Auto 70.4 43.0-75.0 % Lymphocytes Percent Auto 18.4 20.5-60.0 % Monocytes Percent Auto 8.3 1.7-12.0 % Eosinophils Percent Auto 1.8 0.9-7.0 % Basophils Percent Auto 0.8 0.2-2.0 % Immature Granulocytes Pct Auto 0.3 0.0-0.5 % Neutrophils Absolute Auto 4.7 1.4-6.5 10 3/uL Lymphocytes Absolute Auto 1.2 1.2-3.8 10 3/uL Monocytes Absolute Auto 0.6 0.3-0.8 10 3/uL Eosinophils Absolute Auto 0.1 0.0-0.7 10 3/uL Basophils Absolute Auto 0.1 0.0-0.1 10 3/uL Immature Granulocytes Abs Auto 0.02 0.00-0.03 10 3/uL Performing Lab: see note ML - [facility] LB T3 FREE, T4 FREE and TSH Reviewed date:05/04/2024 08:24:22 AM Interpretation: Performing Lab:[facility], [address] [place], [address] Notes/Report: FACILITY: [facility] - SECOR [id number] T3 - FREE 3.50 (2.45 - 5.93) PG/ML T4 - FREE 1.15 (0.78 - 2.44) UG/DL hTSH 0.593 (0.470 - 4.680) mIU/L Prothrombin Time INR Reviewed date:01/10/2025 12:10:38 PM Interpretation: Performing Lab: Notes/Report: [facility] , Prothrombin Time 10.7 9.0-11.6 sec INR 1.01 2.0-3.0 CONDITIONS NOT LISTED BELOW DESIRED INR: 2.5-3.5 RECURRENT THROMBOSIS 2.5-3.5 FOR PROSTHETIC HEART VALVE REPLACEMENT Performing Lab: see note ML - [facility] LB Reason For Referral Reason ref to [facility], pacs im ages pushed Diagnosis 1 Thyroid nodule (E04. 1) Referral Organization Endocrinology Referring Provider First Name [facility] Referring Provider Last Name [facility] Referring Provider Speciality Endocrinol ogy Referred Provider Specialty [facility] General Notes Isabel Bruno 07/11/20 24 04:43:09 PM >sent to [facility] Referral Priority Routine Reason Ref to [facility] PA CS pushed. Diagnosis 1 Thyroid nodule (E04. 1) Referral Organization Endocrinology Referring Provider First Name [facility] Referring Provider Last Name [facility] Referring Provider Speciality Endocrinol ogkarel Referred Provider Specialty [facility] Referral Priority Routine Reason Pacs pushed, please call pt to schedule Diagnosis 1 Thyroid nodule (E04. 1) Referral Organization Endocrinology Referring Provider First Name [facility] Referring Provider Last Name [facility] Referring Provider Speciality Endocrinol magali Referred Provider Specialty [facility] Referral Priority Routine Diagnosis 1 Positive DARIEL (antinu clear antibody) (R76.8) Referral Organization [facility] Referring Provider First Name Gilberto Referring Provider Last Name Nathalie Referring Provider Speciality [facility] cassi Referred Provider Boo Godoy Referred Provider Specialty Rheumatology Referral Priority Routine Diagnosis 1 Positive DARIEL (antinu clear antibody) (R76.8) Referral Organization [facility] Referring Provider First Name Gilberto Referring Provider Last Name Nathalie Referring Provider Speciality [facility] cassi Referred Provider Boo Godoy Referred Provider Specialty Rheumatology Referral Priority Routine Medications Medication SIG (Take, Route, Frequency, Duration) [...] stop date) Never Smoker NA - NA Alcohol Screen (Audit-C) Question Answer Notes Did you have a drink containing alcohol in the p ast year? No Points 0 Interpretation Negative Tobacco Control (Standard) Question Answer Notes Tobacco use: Nonsmoker AUDIT-C (Standard) Question Answer Notes Did you have a drink containing alcohol in the p ast year? No Points 0 Interpretation Negative Section Notes: No ETOH No ETOH No ETOH No ETOH No ETOH No ETOH No ETOH No ETOH No ETOH No ETOH Problems Problem Type SNOMED Code ICD Code Onset Dates Problem Status W/U Status Risk Notes Problem 79083521 Essential (primary) hypertension (I10) Active confirmed Problem 437929243 Gastro-esophagea l reflux disease without esophagitis (K21.9) Active confirmed Problem 94599534 Calculus of gallbladder without cholecystitis without obstruction (K80.20) Active confirmed Problem 404122710 Unspecified osteoarthritis, unspecified site (M19.90) Active confirmed Problem 848282758 Spondylolisthesi s , lumbosacral region (M43.17) Active confirmed Problem Restless legs syndrome (35692638) Restless leg syndrome (G25.81) Active confirmed Problem Sleep apnea (96771701) Sleep apnea (G47.30) Active confirmed Problem Thyroid function tests abnormal (789833768) Low TSH level (R94.6) Active confirmed Problem Thyroid nodule (583216718) Thyroid nodule (E04.1) Active confirmed Problem Cellulitis (131796485) Cellulitis (L03.90) Active confirmed Problem Graves disease (647419295) Graves disease (E05.00) Active confirmed Problem Contact dermatitis (14621612) Contact dermatitis (L25.9) Active confirmed Problem Irritable bowel (17523007) Irritable bowel (K58.9) Active confirmed Problem Degeneration of spine (924391551) Degeneration of spine (M47.819) Active confirmed Problem Acquired spondylolisthesis (779618833) Anterolisthesis of lumbar spine (M43.16) Active confirmed Problem Easy bruising (943465296) Easy bruisability (R23.3) Active confirmed Vital Signs Heart Rate 78 /min 04/13/2025 Oximetry 99 % 10/06/2024 Blood pressure diastolic 66 mm Hg 04/13/2025 Height 60 in 04/13/2025 Blood pressure systolic 108 mm Hg 04/13/2025 Weight 144 lbs 04/13/2025 BMI 28.12 kg/m2 04/13/2025 Procedures Procedure Date Ordered Date Performed Result Body Sit e Fine Needle Biopsy 07/27/2024 N/A Fine Needle Biopsy 08/22/2024 N/A EKG w Interp & Report - performed 01/10/2025 N/ A Encounters Encounter Location Date Provider Diagnosis [facility] [address] [place] [address] 10/03/2024 Gilberto Hoy Spondylolisthesis, lumbosacral region M43.17 and Cellulitis L03.[address] [place] [address] 05/03/2024 Maisoon Torfah Low TSH level R94.[address] [place] [address] 07/04/2024 Maisoon Torfah Low TSH level R94.6 and Thyroid nodule E04.[address] [place] [address] 10/06/2024 Maisoon Torfah Low TSH level R94.6 and Thyroid nodule E04.[address] [place] [address] 04/13/2025 Maisoon Torfah Low TSH level R94.6 and Thyroid nodule E04.1 [facility] [address] [place] [address] 05/03/2024 Lab Provider [facility] [address] [place] [address] 10/06/2024 Lab Provider [facility] [address] [place] [address] 11/08/2024 Gilberto Hoy Essential (primary) hypertension I10 ; Thyroid nodule E04.1 ; Restless leg syndrome G25.81 ; Easy bruisability R23.3 and Gastro-esophageal reflux disease without esophagitis K21.9 [facility] [address] [place] [address] 11/14/2024 Gilberto Hoy Irritable bowel K58.9 [facility] [address] [place] [address] 01/10/2025 Gilberto Hoy Pre-op examination Z01.[address] [facility] [address] [place] [address] 04/03/2025 Radiology Provider Nontoxic single thyroid nodule E04.1 [facility] [address] [place] [address] 06/24/2024 Gilberto Hoy Restless leg syndrome G25.81 and Essential (primary) hypertension I10 [facility] [address] [place] [address] 11/13/2024 Gilberto Hoy [facility] [address] [place] [address] 11/14/2024 Gilberto Hoy Positive DARIEL (antinuclear antibody) R76.8 [facility] [address] [place] [address] 01/10/2025 Gilberto Hoy [facility] [address] [place] [address] 01/13/2025 Gilberto Zelaya [facility] [address] [facility] [place] [address] 04/17/2025 Gilberto Hankinskarel [facility] [address] [facility] [place] [address] 09/04/2024 Gilberto Zelaya [facility] [address] [facility] [place] [address] 09/07/2024 Gilberto Hankinskarel [facility] [address] [facility] [place] [address] 09/23/[address] [facility] [address] [place] [facility] [address] 10/18/2024 Gilberto Zelaya Spondylolisthesis, lumbosacral region M43.17 [facility] [address] [facility] [place] [address] 11/09/2024 Gilberto Hankinskarel [facility] [address] [facility] [place] [address] 11/11/2024 Gilberto Nathalie Positive DARIEL (antinuclear antibody) R76.[address] [place] [address] 07/11/2024 Maisoon Torfah Thyroid nodule E04.1 [facility] [address] [facility] [place] [address] 07/12/2024 Gilberto Zelaya Endocrinology [address] [place] [address] 07/27/2024 Maisoon Torfah Thyroid nodule E04.[address] [place] [address] 08/08/2024 Maisoon Torfah Endocrinology [address] [place] [address] 08/15/2024 Maisoon Torfah Endocr[facility]ology [address] [place] [address] 08/22/2024 Maisoon Torfah Thyroid nodule E04.1 Assessments Encounter Date Diagnosis (ICD Code) Assessment Notes Treatment Notes Treatment Clinical Notes Section Notes 05/03/2024 Low TSH level (ICD-10 - R94.6) Thyroid antibodies are negative. Will repeat TFTs today for follow up. 07/04/2024 Low TSH level (ICD-10 - R94.6) Patient labs were reviewed. TSH level is low with normal free T4 and free T3. Labs are consistent with subclinical hyperthyroidism. Etiology includes Graves' disease versus toxic nodule versus thyroiditis. Per patient she was on steroids at the time she had her thyroid levels checked due to infection. Steroids can falsely lower TSH level.She denied being on biotin or hair skin nail products Nonetheless we will do thyroid ultrasound and she will recheck labs along with TSI/TRAb for further evaluation. Of note, patient denied hyperthyroid symptoms. No family history of thyroid disorders or thyroid cancer reported. Patient labs were reviewed. TSH level is low with normal free T4 and free T3. Labs are consistent with subclinical hyperthyroidism. Patient is asymptomatic we will continue to monitor. 07/04/2024 Thyroid nodule (ICD-10 - E04.1) Neck ultrasound revealed a 1.6 cm right thyroid nodule. Patient denied compressive symptoms. Nodule is almost completely solid isoechoic. Given size, will consider FNA for further evaluation. Will refer to [facility] 06/24/2024 Restless leg syndrome (ICD-10 - G25.81) 06/24/2024 Essential (primary) hypertension (ICD-10 - I10) 10/06/2024 Low TSH level (ICD-10 - R94.6) Patient labs were reviewed. TSH level is low with normal free T4 and free T3. Labs are consistent with subclinical hyperthyroidism. Etiology includes Graves' disease versus toxic nodule versus thyroiditis. Per patient she was on steroids at the time she had her thyroid levels checked due to infection. Steroids can falsely lower TSH level.She denied being on biotin or hair skin nail products Of note, patient denied hyperthyroid symptoms. No family history of thyroid disorders or thyroid cancer reported. Patient labs were reviewed. TSH level is low with normal free T4 and free T3. Labs are consistent with subclinical hyperthyroidism. Patient is asymptomatic. Repeat TFTS are pending 10/03/2024 Spondylolisthesis , lumbosacral region (ICD-10 - M43.17) kenalog and tyoradol 10/03/2024 Cellulitis (ICD-10 - L03.90) abdiotics 04/13/2025 Low TSH level (ICD-10 - R94.6) [...] levels in a week after holding biotin 11/08/2024 Essential (primary) hypertension (ICD-10 - I10) 11/08/2024 Thyroid nodule (ICD-10 - E04.1) 11/08/2024 Restless leg syndrome (ICD-10 - G25.81) 11/14/2024 Irritable bowel (ICD-10 - K58.9) 01/10/2025 Pre-op examination (ICD-10 - Z01.818) Cleared for OR but would bump up the metoprolol back to 100 mg seeing cardiology also 04/03/2025 Nontoxic single thyroid nodule (ICD-10 - E04.1) 07/11/2024 Thyroid nodule (ICD-10 - E04.1) 07/27/2024 Thyroid nodule (ICD-10 - E04.1) 08/22/2024 Thyroid nodule (ICD-10 - E04.1) 10/18/2024 Spondylolisthesis , lumbosacral region (ICD-10 - M43.17) 11/11/2024 Positive DARIEL (antinuclear antibody) (ICD-10 - R76.8) 11/14/2024 Positive DARIEL (antinuclear antibody) (ICD-10 - R76.8) 11/08/2024 Easy bruisability (ICD-10 - R23.3) 04/13/2025 Thyroid nodule (ICD-10 - E04.1) Neck [...] will wait for the nuclear uptake scan 10/06/2024 Thyroid nodule (ICD-10 - E04.1) Neck ultrasound [...] US for monitoring nodular growth). Patient opted for the latter option and we are ok with given no cocnerning sonographic features. 11/08/2024 Gastro-esophageal reflux disease without esophagitis (ICD-10 - K21.9) Plan Of Treatment Pending Test Test Name Order Date HEMOGLOBIN A1C (GLYCO) 11/08/2024 IRON, TOTAL 11/08/2024 LIPID PANEL (CHOL/TRIG/HDL/LDL) 11/08/19 25 CBC WITH DIFF 11/08/2024 CBC WITH DIFF 07/11/2024 PT (PROTIME), INR AND PTT (PT/INR AND PT T) 07/11/2024 VITAMIN D, 25 LEVEL (TOTAL) 11/08/2024 NUC MED Thyroid Uptake and Scan* 025 EKG w Interp & Report - performed 2024 T3 FREE, T4 FREE and TSH 04/13/2025 RHEUMATOID PANEL 11/08/2024 Fine Needle Biopsy 07/27/2024 Fine Needle Biopsy 08/22/2024 Insulin Level 11/08/2024 PT - INR 01/10/2025 MRI Spine Lumbar w/o Contrast 03/13/2022 STOOL OCCULT BLOOD 11/08/2024 PROTIME 11/08/2024 SED RATE WESTERGREN 11/08/2024 US ABD 02/04/2023 THYROID PANEL (T4/TSH/FREE T3) THYROID PANEL (T4/TSH/FREE T3) 4 US abdominal aortic aneurysm 10/30/2023 CMP (COMP MET MERCEDES) w/eGFR CKD-EPI 2024 Future Test Test Name Order Date T3 FREE, T4 FREE and TSH 10/03/2024 Next Appt Details Provider Name:Gilberto Zelaya, 11:00:00 AM, [address] [facility], [place], [address], Provider Name:Sarah Nguyen , 07/14/2025 11:00:00 AM, [address] [facility], [place], [address], Insurance Providers Payer Name Payer Address Payer Phone Subscriber Number Group Number Insured Name Patient Relationship to Insured Coverage Start Date Coverage End Date [place] [address] [place] [address] [id number] Chloe Lowe Self - patient is the insured 2 [facility] [address] [place] [address] [phone] [id number] Chloe Lowe Self - patient is the insured 2 Medications Administered Medication Instructions Date of Administration Dosage Notes Kenalog-40 11/12/2023 120 mg Kenalog-40 03/11/2024 80 mg 80 Kenalog-40 06/24/2024 120 mg Ketorolac Tromethamine 11/12/2023 60 mg Ketorolac Tromethamine 06/24/2024 60 mg Ketorolac Tromethamine 10/03/2024 60 mg 60 Triamcinolone 40 mg/ml 10/03/2024 80 mg Medical (General) History Medical History History ICD Code htn kidney stones Surgical History Surgery Date(Month/Year) Esophagogastroduodenoscopy 03/2023 Right Hip Bursa- Dr. Trammell 04/20/2023 bilat knee replacements appendix kidney stone with stent 1999 back surgery 01/30/2025 Hospitalization History Reason Date(Month/Year) with surgeries
--- OUTSIDE RECORDS SUMMARY | 2025-04-23 17:28 | XMS_ITS | Encounter Summary ---
Author Organization [facility] Address [address] [place] [address] Care Team Providers Care Seo Professional Name Role Phone Vick Zelaya MD Primary Care Provider [phone] Encounter Details Date Type Department Care Team (Late Contact Info) Description 04/14/2025 Bamboo flowsheet [facility] [address] [facility] [address] [place] [address] Kenny Terry, ION Social History Tobacco Use Types Packs/Day Years [...] Treatment [facility] [address] [facility] [address] [place] [address] Kenny Terry, ACUPUNCTURE PHYSICIAN 05/02/2025 9:30 AM EDT Treatment [facility] [address] [facility] [place] [address] Kenny Terry, ACUPUNCTURE PHYSICIAN 12/04/2025 10:00 AM EST Office Visit [facility] [address] [place] [address] Antionette Yang PA [address] [facility] [place] [address] documented as of this encounter Visit Diagnoses Not on filedocumented in this encounter Care Teams Seo Professional Relationship Specialty Start Date End Date Vick Zelaya MD PCP - General Family Medicine 05/21/23 documented as of this encounter
--- OUTSIDE RECORDS SUMMARY | 2025-04-23 17:28 | XMS_ITS | Encounter Summary ---
Author Organization [facility] Address [address] [place] [address] Care Team Providers Care Nursing Specialist Name Role Phone Vick Zelaya MD Primary Care Provider [phone] Encounter Details Date Type Department Care Team (Late Contact Info) Description 04/18/2025 Bamboo flowsheet [facility] [address] [facility] [address] [place] [address] Kenny Terry, ION Social History Tobacco Use [...] Treatment [facility] [address] [facility] [address] [place] [address] Kenny Terry, STRUCTURAL STEEL PAINTER 05/02/2025 9:30 AM EDT Treatment [facility] [address] [facility] [place] [address] Kenny Terry, STRUCTURAL STEEL PAINTER 12/04/2025 10:00 AM EST Office Visit [facility] [address] [facility] [place] [address] Antionette Yang PA [address] [facility] [place] [address] documented as of this encounter Visit Diagnoses Not on filedocumented in this encounter Care Teams Nursing Specialist Relationship Specialty Start Date End Date Vick Zelaya MD PCP - General Family Medicine 05/21/23 documented as of this encounter
--- OUTSIDE RECORDS SUMMARY | 2025-04-23 17:28 | XMS_ITS | Encounter Summary ---
Author Organization [facility] Address [address] [place] [address] Care Team Providers Care Sand Conditioner Machine Name Role Phone Vick Zelaya MD Primary Care Provider [phone] Encounter Details Date Type Department Care Team (Late Contact Info) Description 12/02/2023 Abstract [facility] [address] [place] [address] Lakshmi Crowley LPN [address] [place] [address] [place] [address] Social History Tobacco Use Types Packs/Day Years [...] Treatment [facility] [address] [facility] [address] [place] [address] Kenny Terry, CERTIFIED LACTATION COUNSELOR 05/02/2025 9:30 AM EDT Treatment [facility] [address] [place] [address] Kenny Terry, CERTIFIED LACTATION COUNSELOR 12/04/2025 10:00 AM EST Office Visit [facility] [address] [facility] [place] [address] Antionette Yang PA [address] [facility] [place] [address] documented as of this encounter Visit Diagnoses Not on filedocumented in this encounter Care Teams Sand Conditioner Machine Relationship Specialty Start Date End Date Vick Zelaya MD PCP - General Family Medicine 05/21/23 documented as of this encounter
--- OUTSIDE RECORDS SUMMARY | 2025-04-23 17:28 | XMS_ITS | Encounter Summary ---
Author Organization [facility] Address [address] [place] [address] Care Team Providers Care Carpet Cleaning Technician Name Role Phone Vick Zelaya MD Primary Care Provider [phone] Encounter Details Date Type Department Care Team (Late Contact Info) Description 04/10/2025 Bamboo flowsheet [facility] [address] [facility] [address] [place] [address] Kenny Terry, ION Social History Tobacco Use [...] Treatment [facility] [address] [facility] [address] [place] [address] Kenny Terry, MARBLEIZER 05/02/2025 9:30 AM EDT Treatment [facility] [address] [facility] [place] [address] Kenny Terry, MARBLEIZER 12/04/2025 10:00 AM EST Office Visit [facility] [address] [facility] [place] [phone] Antionette Yang PA [address] [facility] [place] [address] documented as of this encounter Visit Diagnoses Not on filedocumented in this encounter Care Teams Carpet Cleaning Technician Relationship Specialty Start Date End Date Vick Zelaya MD PCP - General Family Medicine 05/21/23 documented as of this encounter
--- OUTSIDE RECORDS SUMMARY | 2025-04-23 17:28 | XMS_ITS | Encounter Summary ---
Author Organization [facility] Address [address] [place] [address] Care Team Providers Care Vb Net Programmer Name Role Phone Vick Zelaya MD Primary Care Provider [phone] Encounter Details Date Type Department Care Team (Late Contact Info) Description 11/30/2023 Clinisync Result Encounter [facility] External Department Unsolicited Antionette Yang PA [address] [place] [address] [place] [address] Social History Tobacco Use Types Packs/Day Years [...] Treatment [facility] [address] [facility] [address] [place] [address] Kenny Terry, ELECTRIC MOTOR ANALYST 05/02/2025 9:30 AM EDT Treatment [facility] [address] [facility] [address] [place] [address] Kenny Terry, ELECTRIC MOTOR ANALYST 12/04/2025 10:00 AM EST Office Visit [facility] [address] [facility] [place] [phone] Antionette Yang PA [address] [facility] [place] [address] documented as of this encounter Procedures Procedure Name Priority Date/Time Associated Diagnosis Comments MM TOMOSYNTHESIS SCREENING BI 11/30/2023 9:15 AM EST documented in this encounter Results * MM TOMOSYNTHESIS SCREENING BI (11/30/2023 9:15 AM EST) Anatomical Region Laterality Modality Other 11/30/2023 9:15 AM EST Narrative 11/30/2023 9:17 AM EST The [address] [address] Mammography Report Signed Patient: ANJELICA AGARWAL MR#: [id number] : 1955 Acct:[id number] Age/Sex: 68 / F ADM Date: 11/30/23 Loc: LAB Attending Dr: Antionette Yang Ordering Physician: Antionette Yang Results: Date of Service: 11/30/23 Follow Up: Procedure(s): MM tomosynthesis screening BI Accession Number(s): [id number] cc: Antionette Yang; Vick Zelaya M.D. Patient Name: ANJELICA AGARWAL MR#: [id number] : 1955 Exam Date: 11/30/2023 Ordering Doctor: JESSICA Yang . RADIOLOGY REPORT PROCEDURE: MM TOMOSYNTHESIS SCREENING BI COMPARISON: MG MAMM LAURA DIAG W CAD, 06/26/2021. MG MAMM SCREEN 3D LAURA CAD, 10/22/2022. INDICATIONS: Screening Calculator Name NCI Breast Cancer Risk Assessment Tool 5 Year Breast Cancer Risk Not Reported. Lifetime Breast Cancer Risk Not Reported. Personal Breast Cancer No Personal Ovarian Cancer No Treatments None Family Cancers None LOCATION: [facility] BREAST COMPOSITION: Scattered areas fibroglandular density. FINDINGS: DIAGNOSTIC CATEGORY 2--BENIGN FINDING. NO CHANGE FROM COMPARISON. Scattered benign-appearing nodules are present. Scattered benign-appearing calcifications are present. Scattered benign-appearing lymph nodes are present. RIGHT BREAST: No significant suspicious finding. LEFT BREAST: No significant suspicious finding. RECOMMENDATIONS: ROUTINE MAMMOGRAM AND CLINICAL EVALUATION IN 12 MONTHS. PLEASE NOTE: A NORMAL MAMMOGRAM DOES NOT EXCLUDE THE POSSIBILITY OF BREAST CANCER. A CLINICALLY SUSPICIOUS PALPABLE LUMP SHOULD BE BIOPSIED. Dictated by: Fernie Reed MD on 11/30/2023 at 09:10 Approved by: Fernie Reed MD on 11/30/2023 at 09:15 Dictated By: Fernie Reed M.D. Signed By: 11/30/23916 DD/ 4 TD/TT: Criminal Investigative Agent: Procedure Note Radiology, Radiologist, MD - 11/30/2023 [place] [address] Mammography Report Signed Patient: ANJELICA AGARWAL JMR#: [id number] : 7Acct:[id number] Age/Sex: 68 / FADM Date: 11/30/23 Loc: LAB Attending Dr: Antionette Yang Ordering Physician: Antionette YangResults: Date of Service: 11/30/23Follow Up: Procedure(s): MM tomosynthesis screening BI Accession Number(s): [id number] cc: Antionette Yang; Vick Zelaya M.D. Patient Name: ANJELICA AGARWAL MR#: [id number] : 1955 Exam Date: 11/30/2023 Ordering Doctor: JESSICA Yang . RADIOLOGY REPORT PROCEDURE: MM TOMOSYNTHESIS SCREENING BI COMPARISON: MG MAMM LAURA DIAG W CAD, 06/26/2021. MG MAMM SCREEN 3D BILCAD, 10/22/2022. INDICATIONS: Screening Calculator Name NCI Breast Cancer Risk Assessment Tool 5 Year Breast Cancer Risk Not Reported. Lifetime Breast Cancer Risk Not Reported. Personal Breast Cancer No Personal Ovarian Cancer No Treatments None Family Cancers None LOCATION: [facility] BREAST COMPOSITION: Scattered areas fibroglandular density. FINDINGS: DIAGNOSTIC CATEGORY 2--BENIGN FINDING. NO CHANGE FROM COMPARISON. Scattered benign-appearing nodules are present. Scatteredbenign-appearing calcifications are present. Scattered benign-appearing lymph nodes are present. RIGHT BREAST: No significant suspicious finding. LEFT BREAST: No significant suspicious finding. RECOMMENDATIONS: ROUTINE MAMMOGRAM AND CLINICAL EVALUATION IN 12 MONTHS. PLEASE NOTE: A NORMAL MAMMOGRAM DOES NOT EXCLUDE THE POSSIBILITY OFBREAST CANCER. A CLINICALLY SUSPICIOUS PALPABLE LUMP SHOULD BE BIOPSIED. Dictated by: Fernie Reed MD on 11/30/2023 at 09:10 Approved by: Fernie Reed MD on 11/30/2023 at 09:15 Dictated By: Fernie Reed M.D. Signed By:11/30/23916 DD/ 4 TD/TT: Criminal Investigative Agent: Antionette [facility]Z [facility] Final Result documented in this encounter Visit Diagnoses Not on filedocumented in this encounter Care Teams Vb Net Programmer Relationship Specialty Start Date End Date Vick eZlaya MD PCP - General Family Medicine 05/21/23 documented as of this encounter
--- OUTSIDE RECORDS SUMMARY | 2025-04-23 17:28 | XMS_ITS | Encounter Summary ---
Author Organization [facility] Address [address] [place] [address] Care Team Providers Care Tier In Name Role Phone Vick Zelaya MD Primary Care Provider [phone] Encounter Details Date Type Department Care Team (Latest Contact Info) Description 04/18/2025 Travel Social History Tobacco Use Types Packs/Day [...] CI PT [address] [facility] [address] [place] [address] Kenny Terry, ION 05/02/2025 9:30 AM EDT Treatment [facility] [address] [facility] [address] [place] [address] Kenny Terry, EXPLOSIVE MAN 12/04/2025 10:00 AM EST Office Visit [facility] [address] [facility] [place] [phone] Antionette Yang PA [address] [facility] [place] [address] documented as of this encounter Visit Diagnoses Not on filedocumented in this encounter Care Teams Tier In Relationship Specialty Start Date End Date Vick Zelaya MD PCP - General Family Medicine 05/21/23 documented as of this encounter
--- OUTSIDE RECORDS SUMMARY | 2025-04-23 17:29 | XMS_ITS | CCD ---
Author Organization [facility] Care Team Providers Care Medical Billing Representative Name Role Phone Adryan Yoon Unavailable Unavailable ClevelandjaspalAdryan Unavailable Unavailable VICK MCGHEE Unavailable Unavailable Fernie Sandoval Unavailable Unavailable Vick Mcghee Primary Care Physician [phone] ., DR RANGEL Admitting Unavailabl e [...] DR SANTOYO Admitting Unavailable ZIEBER, DR RYAN Billingsely Consulting Unavailable HOY ., DR SANTOYO Primary [...] Admitting Unavailable Demar Trammell Attending Unavailable Nathalie, Vick Referring Unavailable Landon DOUGLAS Admitting Unavailable Landon DOUGLAS Attending Unavailable NONE, XXXX Referring Unavailable Willie Kaur Attending Unavaila ble NONE, XXXX Referring Unavailable Willie Kaur Attending Unavaila ble NONE, XXXX Referring Unavailable Claudio Monroe Admitting Unavailable Claudio Monroe Attending Unavailable Claudio Monroe Referring Unavailable Vicky Castillo Admitting Unavailable Vicky Castillo Attending Unavailable Nelson Solares Attending Unavailable HusainBarry GRuba Attending Unavailable Husain Basem GRuba Referring Unavailable Husain Basem G. Admitting Unavailable Husain Basem GRuba Attending Unavailable Landon DOUGLAS Referring Unavailable Anna PA-C Vicky Admitting Unavailabl e Castillo, Vicky Attending Unavailable Hoy, Vick Referring Unavailable Castillo, PA-C Vicky Admitting Unavailabl e Castillo, Vicky Attending Unavailable Vick Mcghee Referring Unavailable Vick Mcghee MD Primary Care Provider [phone] NON STAFF Attending Provider Unavailable Claudio Monroe Attending Unavailable Claudio Monroe Admitting Unavailable Darshan Laughlin Attending Unavailable Vick Mcghee Referring Unavailable Claudio Monroe Attending Unavailable Claudio Monroe Admitting Unavailable NONE, XXXX Referring Unavailable Lokesh Mcqueen Attending Unavailable Lokesh Mcqueen Admitting Unavailable SAM KAISER Attending Unavailable SAM KAISER Admitting Unavailable WERSAM MCKINNON Referring Unavailable OJUKWU, Mbanefo Attending Unavailable OJUKWU, Mbanefo Admitting Unavailable [facility] Cardio, XXXX Consulting Unavailable Vick Mcghee MD Primary Care Provider [phone] Boo Godoy MD Attending Provider NON STAFF Attending Unavailable Vick Mcghee Primary Care Unavailable NON STAFF Admitting Unavailable Boo Godoy Admitting Unavailable Boo Godoy Attending Unavailable Vick Mcghee Primary Care Unavailable Vick Mcghee MD Primary Care Provider [phone] MD Radu Kurtz Attending Unavailable Baldomero Hurtado Admitting Unavailable NONE, XXXX Referring Unavailable Lokesh Mcqueen Referring Unavailable Lokesh Mcqueen Admitting Unavailable Lokesh Mcqueen Attending Unavailable Baldomero Hurtado Consulting Unavailable Jayden Santos Admitting Unavailable Jayden Santos Attending Unavailable Bryant, Baldomero Consulting Unavailable Bryant, Baldomero Consulting Unavailable [facility] Cardio, XXXX Consulting Unavailable ANTIONETTE YANG Attending Unavailable SOFI PYLE Attending Unavailable SOM, KATH Billingsley Referring Unavailable KENNY BANGURA Attending Unavailable SOM, KATH Billingsley Referring Unavailable KENNY BANGURA Attending Unavailable SOM, KATH Billingsley Referring Unavailable KENNY BANGURA Attending Unavailable SOM, KATH Billingsley Referring Unavailable KENNY BANGURA Attending Unavailable SOM, KATH Billingsley Referring Unavailable KENNY BANGURA Attending Unavailable SOM, KATH Billingsley Referring Unavailable SOFI PYLE Attending Unavailable SOM, KATH Billingsley Referring Unavailable PYLE, SOFI Attending Unavailable SOM, KATH Billingsley Referring Unavailable YARELIS KING Attending Unavailable SOM, KATH Billingsley Referring Unavailable PYLE, SOFI Attending Unavailable SOM, KATH Billingsley Referring Unavailable PYLE, SOFI Attending Unavailable SOM, KATH Billingsley Referring Unavailable YARELIS KING Attending Unavailable SOM, KATH Billingsley Referring Unavailable SYDNIE VILLALOBOS Attending Unavailable KENNY BANGURA Attending Unavailable SOM, KATH Billingsley Referring Unavailable KENNY BANGURA Attending Unavailable SOM, KATH Billingsley Referring Unavailable KENNY BANGURA Attending Unavailable SOM, KATH Billingsley Referring Unavailable KENNY BANGURA Attending Unavailable SOM, KATH Billingsley Referring Unavailable Allergies Allergy Classification Reported Allergen(s) Allergy Type Date of Onset Reaction(s) Facility (1 source) Sulfonamide; Translations: [sulfonamide] Propensity to adverse reactions to drug (disorder) [facility] Repository (20 sources) Sulfonamides (Antibiotic); Translations: [sulfa drugs] Drug allergy unknown [facility] (20 sources) Lisinopril; Translations: [lisinopril] Drug Allergy Coughing - function (qualifier value) [facility] (1 source) Sulfonamides (Antibiotic) Drug allergy (disorder) [facility] Repository (20 sources) gabapentin; Translations: [gabapentin] Drug Allergy 3 Headache (finding), Headache [facility] (20 sources) Lisinopril Propensity to adverse reactions 3 [facility] (20 sources) Sulfonamides (Antibiotic) Drug Allergy 3 [facility] (12 sources) Baclofen; Translations: [baclofen] Drug Allergy Hand pain (finding), Menopausal flushing (finding), Bilateral weakness of upper limbs, Weakness of bilateral lower limb, Numbness of limbs (finding) [facility] (20 sources) DULoxetine; Translations: [duloxetine] Drug Allergy 4 Vomiting (disorder) [facility] (20 sources) Baclofen Drug Allergy 5 [facility] Medications Current Medications Medication Drug Class(es) Dates Sig (Normalized) Sig (Original) alendronic acid 70 mg oral tablet (20 sources) Bisphosphonate Start: 11-25-2023 End: 06-08-2024 take 1 tablet by mouth in the morning alendronate (Fosamax) 70 MG tablet Indications: Other osteoporosis, unspecified pathological fracture presence Take 1 [...] Daily, # 30 tab(s), Refills(s) 2, Pharmacy: [facility], 152, cm, 10/05/24 11:36:00 EST, Height/Length Dosing, 75.8, kg, 10/05/24 11:40:00 EST, Weight Dosing Start Date: 10/05/24 Status: Ordered cephalexin 500 mg oral capsule (1 source) Cephalosporin Antibacterial Start: 05-08-2024 End: 05-13-2024 take 1 capsule by mouth every twelve hours Keflex 500 mg Cap 500 mg = 1 cap(s), Oral, q12hr, X 5 day(s), # 10 cap(s), Refills(s) 0, Pharmacy: [facility], 152, cm, 05/08/24 7:24:00 EDT, Height/Length Dosing, 77.2, kg, 05/08/24 7:33:00 EDT, Weight Dosing Start Date: 05/08/24 Stop Date: 05/13/24 Status: Ordered cloNIDine hydrochloride 0.1 mg oral tablet (2 sources) Central alpha-2 Adrenergic Agonist Start: 11-03-2024 take 1 tablet by mouth twice daily cloNIDine 0.1 mg tab 0.1 mg = 1 tab(s), Oral, BID, # 60 tab(s), Refills(s) 5, Pharmacy: [facility], 152, cm, 10/05/24 11:36:00 EST, Height/Length Dosing, 75.8, kg, 10/05/24 11:40:00 EST, Weight Dosing Start Date: 11/03/24 Status: Ordered Quantity: 60.0 Unit: tab(s) Repeat number: 6 gabapentin 300 mg oral capsule (8 sources) Anti-epileptic Agent Start: 05-04-2023 End: 11-25-2023 gabapentin 300 mg Cap 300 mg = 1 cap(s), Oral, BID, start with once a day for a week. If doing ok can increase to BID, # 60 cap(s), Refills(s) 0, Pharmacy: [facility], 152, cm, 05/04/23 8:55:00 EDT, Height/Length Dosing, 72.6, kg, 05/04/23 8:55:00 EDT, Weight Dosing Start Date: 05/04/23 Status: Ordered hydroCHLOROthiazide 12.5 mg oral capsule (20 sources) Thiazide Diuretic Start: 11-17-2023 take 1 capsule by mouth in the morning hydroCHLOROthiazide (Microzide) 12.5 MG capsule Take 12.5 mg by mouth in the morning. 11/17/2023 Active hydrOXYzine pamoate 25 mg oral capsule (2 sources) Antihistamine Start: 11-16-2024 take 1 capsule by mouth four times daily as needed for anxiety Vistaril 25 mg Cap 25 mg = 1 cap(s), Oral, QID, PRN for anxiety, # 40 cap(s), Refills(s) 0, Pharmacy: [facility], 75.8, cm, 11/15/24 13:21:00 EST, Height/Length Dosing, 78.5, kg, 11/15/24 13:21:00 EST, Weight Dosing Start Date: 11/16/24 Status: Ordered Quantity: 40.0 Unit: cap(s) Repeat number: 1 linaclotide 0.072 mg oral capsule (3 sources) [...] day(s), # 9 tab(s), Refills(s) 0, Pharmacy: [facility], 152, cm, 05/08/24 7:24:00 EDT, Height/Length Dosing, 77.2, kg, 05/08/24 7:33:00 EDT, Weight Dosing Start Date: 05/08/24 Stop Date: 05/11/24 Status: Ordered losartan potassium 100 mg oral tablet (20 sources) Angiotensin 2 Receptor Hermilo Start: 01-03-2025 take 1 tablet by mouth at bedtime losartan 100 mg Tab 100 mg = 1 tab(s), Oral, Bedtime, # 90 tab(s), Refills(s) 3, Pharmacy: [facility], 75.8, cm, 11/15/24 13:21:00 EST, Height/Length Dosing, 78.5, kg, 11/15/24 13:21:00 EST, Weight Dosing Start Date: 01/03/25 Status: Ordered Quantity: 90.0 Unit: tab(s) Repeat number: 4 Indication: Essential (primary) hypertension Start: 07-13-2024 take 1 tablet by herberth th at bedtime losartan 100 mg Tab 100 mg = 1 tab(s), Oral, Bedtime, # 90 tab(s), Refills(s) 3, Pharmacy: [facility], 152, cm, 07/13/24 15:04:00 EDT, Height/Length Dosing, 75, kg, 07/13/24 15:04:00 EDT, Weight Dosing Start Date: 07/13/24 Status: Ordered Start: 12-18-2023 take 1 tablet by herberth th at bedtime losartan 100 mg Tab 100 mg = 1 tab(s), Oral, Bedtime, # 90 tab(s), Refills(s) 3, Pharmacy: [facility], 152, cm, 12/18/23 13:31:00 EST, Height/Length Dosing, 79.2, kg, 12/18/23 13:37:00 EST, Weight Dosing Start Date: 12/18/23 Status: Ordered Start: 07-14-2023 take 1 tablet by herberth at bedtime losartan 100 mg Tab 100 mg = 1 tab(s), Oral, Bedtime, # 90 tab(s), Refills(s) 1, Pharmacy: [facility], 152, cm, 07/14/23 9:26:00 EDT, Height/Length Dosing, 76.9, kg, 07/14/23 9:26:00 EDT, Weight Dosing Start Date: 07/14/23 Status: Ordered Start: 06-30-2023 End: 07-30-2023 take 1 tablet by mouth twice daily losartan 50 mg Tab 50 mg = 1 tab(s), Oral, BID, X 30 day(s), # 60 tab(s), Refills(s) 0, Pharmacy: [facility], 152, cm, 06/30/23 15:07:00 EDT, Height/Length Dosing, 77.5, kg, 06/30/23 15:07:00 EDT, Weight Dosing Start Date: 06/30/23 Stop Date: 07/30/23 Status: Ordered Start: 06-05-2023 End: 07-05-2023 take 1 tablet by mouth once daily losartan 50 mg Tab 50 mg = 1 tab(s), Oral, Daily, X 30 day(s), # 30 tab(s), Refills(s) 0, Pharmacy: [facility], 152.4, cm, 06/05/23 8:54:00 EDT, Height/Length Dosing, 73, kg, 06/05/23 8:54:00 EDT, Weight Dosing Start Date: 06/05/23 Stop Date: 07/05/23 Status: Ordered Start: 11-05-2022 End: 10-31-2023 take 1 tablet by mouth once daily Cozaar 25 mg Tab 25 mg = 1 tab(s), Oral, Daily, stopping Lisinopril Starting Cozaar, X 90 day(s), # 90 tab(s), Refills(s) 3, Pharmacy: [facility], 152, cm, 11/05/22 11:35:00 EST, Height/Length [...] dizziness, # 30 tab(s), Refills(s) 0, Pharmacy: [facility], 152, cm, 05/08/24 7:24:00 EDT, Height/Length [...] day(s), # 21 tab(s), Refills(s) 0, Pharmacy: [facility], 152, cm, 09/22/23 11:39:00 EST, Height/Length Dosing, 70.5, kg, 09/22/23 11:39:00 EST, Weight Dosing Start Date: 09/22/23 Stop Date: 09/28/23 Status: Ordered 24 hr metoprolol succinate 50 mg extended release oral tablet (20 sources) beta-Adrenergic Hermilo Start: 11-16-2024 take 2 tablets by mouth once daily metoprolol succinate 50 mg ER Tab 100 mg = 2 tab(s), Oral, Daily, # 30 tab(s), Refills(s) 0, Pharmacy: [facility], 75.8, cm, 11/15/24 13:21:00 EST, Height/Length Dosing, 78.5, kg, 11/15/24 13:21:00 EST, Weight Dosing Start Date: 11/16/24 Status: Ordered Quantity: 30.0 Unit: tab(s) Repeat number: 1 Start: 11-16-2024 take 1 tablet by [facility] once daily metoprolol succinate 50 mg ER Tab 50 mg = 1 tab(s), Oral, Daily, # 30 tab(s), Refills(s) 0, Pharmacy: [facility], 75.8, cm, 11/15/24 13:21:00 EST, Height/Length Dosing, 78.5, kg, 11/15/24 13:21:00 EST, Weight Dosing Start Date: 11/16/24 Status: Ordered Quantity: 30.0 Unit: tab(s) Repeat number: 1 Start: 11-17-2023 take 2 tablets by [facility] once daily metoprolol succinate 50 mg ER Tab 100 mg = 2 tab(s), Oral, Daily, # 180 tab(s), Refills(s) 3, Pharmacy: [facility], 152, cm, 07/13/24 15:04:00 EDT, Height/Length Dosing, 75, kg, 07/13/24 15:04:00 EDT, Weight Dosing Start Date: 07/13/24 Status: Ordered Start: 06-30-2023 End: 12-27-2023 take 1 tablet by mouth once daily metoprolol 50 mg ER Tab 50 mg = 1 tab(s), Oral, Daily, # 90 tab(s), Refills(s) 1, Pharmacy: [facility], 152, cm, 07/14/23 9:26:00 EDT, Height/Length Dosing, 76.9, kg, 07/14/23 9:26:00 EDT, Weight Dosing Start Date: 07/14/23 Status: Ordered Start: 11-14-2022 take 1 tablet by herberth once daily metoprolol 25 mg ER Tab 25 mg = 1 tab(s), Oral, Daily, # 90 tab(s), Refills(s) 3, Pharmacy: [facility], 152, cm, 11/05/22 11:35:00 EST, Height/Length Dosing, 76, kg, 11/05/22 11:35:00 EST, Weight Dosing Start Date: 11/14/22 Status: Ordered Start: 10-08-2021 End: 10-03-2022 take 1 tablet by mouth once daily Toprol XL 25 mg Tab-ER 25 mg = 1 tab(s), Oral, Daily, X 90 day(s), # 90 tab(s), Refills(s) 3, Pharmacy: [facility], 152, cm, 10/08/21 13:49:00 EST, Height/Length [...] Ordered naproxen sodium 220 mg oral capsule (9 sources) Nonsteroidal Anti-inflammatory Drug Start: 11-15-2024 take 2 capsules by mouth every eight hours as needed for pain Aleve 220 mg oral capsule 440 mg = 2 cap(s), Oral, q8hr, PRN as needed for pain, Refills(s) 0 Start Date: 11/15/24 Status: Ordered Repeat number: 1 Start: 09-22-2023 Aleve Refills( s) 0 Start Date: 09/22/23 Status: Ordered pantoprazole 40 mg delayed release oral tablet (20 sources) Proton Pump Inhibitor Start: 04-16-2021 take 1 tablet by mouth twice daily Protonix 40 mg Tab-DR 40 mg = 1 tab(s), Oral, BID, # 120 tab(s), Refills(s) 0, Pharmacy: [facility], 152.4, cm, 04/01/21 7:20:00 EDT, Height/Length Dosing, 85.5, kg, 04/01/21 7:20:00 EDT, Weight Dosing Start Date: 04/16/21 Status: Ordered Quantity: 120.0 Unit: tab(s) Repeat number: 1 Indication: Gastro-esophageal reflux disease without esophagitis Start: 09-18-2019 take 40 mg by mouth once daily pantoprazole 40 mg, Oral, Daily, Refills(s) 0 Start Date: 09/18/19 Status: Ordered pregabalin 25 mg oral capsule (6 sources) Start: 10-26-2023 pregabalin 25 mg Cap 25 mg = 1 cap(s), Oral, BID, start with once a day for 3-5 days. If doing well can go to BID, # 60 cap(s), Refills(s) 0, Pharmacy: [facility], 152, cm, 10/26/23 13:07:00 EST, Height/Length [...] QID, # 120 tab(s), Refills(s) 3, Pharmacy: [facility], 152, cm, 04/03/23 9:20:00 EDT, Height/Length [...] q8hr, # 12 tab(s), Refills(s) 0, Pharmacy: [facility], 152, cm, 05/08/24 7:24:00 EDT, Height/Length [...] I10, Supply Start Date: 04/28/23 Status: Ordered Quantity: 1.0 Unit: EA Repeat number: 1 Indication: Essential (primary) hypertension Start: 04-28-2023 Adult Blood Pr essure Monitor with Large Bicep Cuff Adult Blood [...] day(s), # 90 tab(s), Refills(s) 0, Pharmacy: [facility], 152, cm, 07/06/24 15:10:00 EDT, Height/Length [...] day(s), # 60 cap(s), Refills(s) 0, Pharmacy: [facility], 152, cm, 07/06/24 15:10:00 EDT, Height/Length [...] pain] Onset: 3 Episodic Acquired foot deformities (20 sources) Hallux valgus AND bunion; Translations: [Hallux [...] and duodenitis (20 sources) Gastritis 03-07-2021 Episodic Immunizations and screening for infectious disease (2 sources) Encounter for screening for human papillomavirus (HPV); Translations: [Raised antibody titer] Onset: 2 Episodic Nausea and vomiting (20 sources) Regurgitation [...] osteoarthritis 02-23-2023 Episodic Other connective tissue disease (16 sources) Tendinitis 09-22-2023 Episodic Other connective tissue [...] unspecified; Translations: [Pain, unspecified] Onset: 4 Episodic Spondylosis; intervertebral disc disorders; other back problems (15 sources) Lumbar spondylosis with myelopathy; Translations: [Other spondylosis with myelopathy, lumbar region] 03-14-2025 Chronic Unclassified (20 sources) Patient encounter status 02-20-2023 Unclassified (2 sources) CONTACT W/AND (SUSP) EXPOS COVID-19; Translations: [CONTACT W/AND (SUSP) EXPOS COVID-19] Onset: 3 Urinary tract infections (1 source) Urinary tract infectious disease; Translations: [Urinary tract infection, site not specified] Onset: 4 Episodic Viral infection (1 source) COVID-19; Translations: [COVID-19] Onset: 3 Past or Other Problems Problem Classification Problem Date Documented Da te Episodic/Chronic Acute bronchitis (1 source) Acute bronchitis, unspecified; Translations: [ACUTE BRONCHITIS UNSPECIFIED] Onset: 11-10-2022 Episodic Residual codes; unclassified (1 source) Asymptomatic menopausal state; Translations: [ASYMPTOMATIC MENOPAUSAL STATE] Onset: 10-26-2022 Episodic Unclassified (1 source) CONTACT W/AND (SUSP) EXPOS COVID-19; Translations: [CONTACT W/AND (SUSP) EXPOS COVID-19] Onset: 11-05-2022 Results Test Name Value Interpretation Reference Range Facility Heart and Vascular Office/ inic Noteon 04-03-2025 Heart and Vascular Office/Clinic Note [facility] V[facility] Office/Clinic Note Chief Complaint inpatient F/U Chest pain History of Present Illness Patient is a very pleasant educated 69-year-old female who states she has had increased pounding of her heart with the metoprolol 50 mg 2 of them in the morning and losartan 100 mg once in the evening. Her blood pressure is a little on the high side today I would have asked her to keep a blood pressure log with blood pressure checks 3 times a week and see what that is happening and go from there. Recent SPECT cardiac examination was unremarkable all questions were answered. Review of Systems PHQ Score Initial Depression Screen Score: 0 SCORE Constitutional: no fever, no sweats, no weakness Skin: no rash, no lesions, nobruising/petechiae ENMT: no sore throat, no congestion, no hoarseness Respiratory: no shortness of breath, no cough, no orthopnea, no wheezing Cardiovascular: no chest pain, moderate palpitations, no edema Gastrointestinal: no nausea, no [...] noncontributory. Physical Exam Vitals & Measurements HR: 70(Peripheral) RR: 16 BP: 149/89 SpO2: 99% HT: 152 cm HT: 60 in WT: 158.733 lb WT: 72.0 kg BMI: 31.16 General: alert, no acute distress Neck: Supple, noJVD nocarotid bruit Cardiovascular: regular rate and rhythm, no murmur normal peripheral perfusion Respiratory: Lungs CTA, respirations non labored Extremities: no edema Neurological: oriented x 4, LOC appropriate for age, sensation equal & normal bilaterally, speech normal Skin: Warm, dry, intact- no rash or concerning lesions Assessment/Plan 1. Palpitations (R00.2: Palpitations) Keep a blood pressure log; DASH diet follow-up 2. HTN (hypertension) (I10: Essential (primary) hypertension) Follow-up No qualifying data available Problem List/Past [...] 440 mg= 2 cap(s), Oral, q8hr, PRN losartan 100 mg Tab, 100 mg= 1 tab(s), Oral, Bedtime, 3 refills metoprolol succinate 50 mg ER Tab, 100 mg= 2 tab(s), Oral, Daily, 3 refills Protonix 40 mg Tab-DR, 40 mg= 1 tab(s), Oral, BID regadenoson 0.4 mg/5 mL IV Radha, 0.4 mg= 5 mL, IV Push, Once, PRN Allergies DULoxetine (Vomiting) baclofen (Hand pain, Hot flashes, Weakness of bilateral upper extremities, Weakness of bilateral lower extremities, Numbness of limbs) gabapentin (Headache) lisinopril (Coughing) sulfa drugs (unknown) Social History Alcohol - Denies Alcohol Use, 09/07/2020 Never., 10/05/2024 Current, 09/18/2019 Substance Abuse - Denies Substance Abuse, 09/07/2020 Never., 10/05/2024 Tobacco - Denies Tobacco Use, 09/18/2019 Never (less than 100 in lifetime) Tobacco Use:. Never Smokeless Tobacco Use:., 01/23/2025 Family History Acute congestive heart failure: Mother and Father. Hypertension: Sister. Immunizations Vaccine Date Status Comments influenza virus vaccine, inactivated - Not Given Patient Refuses influenza virus vaccine, inactivated - Not Given Parent Or Guardian Refuses SARS-CoV-2 (COVID-19) mRNA BNT-162b2 vax 07/23/2021 Recorded SARS-CoV-2 (COVID-19) mRNA BNT-162b2 vax 07/02/2021 Recorded Normal [facility] Comment on above: Result Comment: Elec tronically Signed By: Jerardo CANTRELL, Radu Putnam\Date and Time Signed: 04/03/25 19:22 EDT DARIEL Antinuclear Antibodieson 01-17-2025 Antinuclear Abs, IFA Positive Critically abnormal . [facility] Comment on above: Result Comment: Nega tive <1:80 Borderline 1:80 Positive >1:80 Performed By: #### C H50, TPO, RA, DARIEL, C3, C4, THYGLOB AB, CARDIO GMA, CCP, B2 GLYPROT, CHROMATIN #### [facility] , Note 1 Comment Normal . [facility] Comment on above: Result Comment: Seema chavez Potential Disease Association Homogeneous Systemic Lupus Erythematosus, Drug Induced Systemic Lupus Erythematosus, Chronic Autoimmune hepatitis, Juvenile Idiopathic Arthritis Speckled Sjogren Syndrome, Systemic Lupus Erythematosus, Subacute Cutaneous Lupus, Lupus, Congenital Heart Block, Mixed Connective Tissue Disease, Scleroderma-diffuse, Scleroderma-Autoimmune Myositis Overlap Syndrome, Systemic Lupus Iuufogqnaqmxn-Vhqljlcvrkr-Rxtidoyxkb Myositis Overlap Syndrome, Systemic Autoimmune Rheumatic Disease, Undifferentiated Connective Tissue Disease Nucleolar Systemic Sclerosis, Scleroderma-Autoimmune Myositis Overlap Syndrome, Sjogren Syndrome, Raynaud phenomenon, Pulmonary Arterial Hypertension, Systemic Autoimmune Rheumatic Disease, Cancer Centromere Scleroderma-CREST, Limited Cutaneous SSc, Raynaud's Phenomenon, Primary Biliary Cholangitis Nuclear Dot Primary Biliary Cholangitis Nuclear Primary Biliary Cholangitis, Autoimmune Membrane Hepatitis/Liver disease, Systemic Autoimmune Rheumatic Disease, Autoimmune Cytopenias, Linear Scleroderma, Antiphospholipid Syndrome Performed at: [facility] [employer] [address] [id number] Bird Tender: Raul Nieves PhD, Phone: [phone] Performed By: #### C H50, TPO, RA, DARIEL, C3, C4, THYGLOB AB, CARDIO GMA, CCP, B2 GLYPROT, CHROMATIN #### [facility] , Speckled Pattern 1:80 Normal . [facility] Comment on above: Result Comment: Dens e Fine Speckled pattern is noted. This pattern suggests the presence of DFS70 antibody which has a low prevalence in systemic autoimmune rheumatic diseases. ICAP nomenclature: AC-2,4,5,29 Performed By: #### C H50, TPO, RA, DARIEL, C3, C4, THYGLOB AB, CARDIO GMA, CCP, B2 GLYPROT, CHROMATIN #### [facility] , Alanine aminotransferase [En zymatic activity/volume] in Serum or PlasmaOrdered By: Boo Godoy on 01-17-2025 ALT [Catalytic activity/Vol] Alanine aminotransferase [Enzymatic activity/volume] in Serum or Plasma [facility] Albumin [Mass/volume] in Ser um or Plasma by Bromocresol green (BCG) dye binding methoOrdered By: Boo Godoy on 01-17-2025 Albumin BCG dye [Mass/Vol] Albumin [Mass/volume] in Serum or Plasma by Bromocresol green (BCG) dye binding metho 3.5-5.7 [facility] Aldolaseon 01-17-2025 Aldolase 4.8 U/L Normal 3.3-10.3 [facility] Comment on above: Result Comment: Perf ormed at: [facility] [address] [id number] Bird Tender: Raul Nieves PhD, Phone: [phone] PERFORMED BY: [address] [place] [address] PATHOLOGIST MANAGER [employer] RHONDA BAUER M.D. Performed By: #### C H50, TPO, RA, DARIEL, C3, C4, THYGLOB AB, CARDIO GMA, CCP, B2 GLYPROT, CHROMATIN #### [facility] , Alkaline phosphatase [Enzyma tic activity/volume] in Serum or PlasmaOrdered By: Boo Godoy on 01-17-2025 ALP [Catalytic activity/Vol] Alkaline phosphatase [Enzymatic activity/volume] in Serum or Plasma 34-104 [facility] Anti-Centromere B Antibodies on 01-17-2025 Anti-Centromere B Antibodies <0.2 Normal 0.0-0.9 [facility] Comment on above: Result Comment: Perf ormed at: [address] [id number] Bird Tender: Raul Nieves PhD, Phone: [phone] Performed By: #### C H50, TPO, RA, DARIEL, C3, C4, THYGLOB AB, CARDIO GMA, CCP, B2 GLYPROT, CHROMATIN #### [facility] , Anti-RNPon 01-17-2025 Anti-POLYSOMNOGRAPHIC TECHNOLOGIST <0.2 Normal 0.0-0.9 [facility] Comment on above: Performed By: #### C H50, TPO, RA, DARIEL, C3, C4, THYGLOB AB, CARDIO GMA, CCP, B2 GLYPROT, CHROMATIN #### [facility] , Anti-Anders Antibodieson 04 Anti-Anders Antibodies <0.2 Normal 0.0-0.9 [facility] Comment on above: Performed By: #### C H50, TPO, RA, DARIEL, C3, C4, THYGLOB AB, CARDIO GMA, CCP, B2 GLYPROT, CHROMATIN #### [facility] , Anti-dsDNA(DBL)Abon 01-18-20 25 Anti-dsDNA(DBL)Ab <1 Normal 0-9 [facility] Comment on above: Result Comment: Nega tive <5 Equivocal 5 - 9 Positive >9 PERFORMED BY: [address] [place] [address] PATHOLOGIST MANAGER SUPPLY RHONDA BAUER M.D. Performed By: #### C H50, TPO, RA, DARIEL, C3, C4, THYGLOB AB, CARDIO GMA, CCP, B2 GLYPROT, CHROMATIN #### [facility] , Anticardiolipin IgG/M/A, Qno n 01-17-2025 Anticardiolipin Ab, IgA,Qn <9 Normal 0-11 [facility] Comment on above: Result Comment: Nega tive: <12 Indeterminate: 12 - 20 Low-Med Positive: >20 - 80 High Positive: >80 Performed at: [address] [id number] Bird Tender: Raul Nieves PhD, Phone: [phone] Performed By: #### C H50, TPO, RA, DARIEL, C3, C4, THYGLOB AB, CARDIO GMA, CCP, B2 GLYPROT, CHROMATIN #### [facility] , Anticardiolipin Ab, IgG,Qn <9 Normal 0-14 [facility] Comment on above: Result Comment: Nega tive: <15 Indeterminate: 15 - 20 Low-Med Positive: >20 - 80 High Positive: >80 Performed By: #### C H50, TPO, RA, DARIEL, C3, C4, THYGLOB AB, CARDIO GMA, CCP, B2 GLYPROT, CHROMATIN #### [facility] , Anticardiolipin Ab, IgM,Qn 10 Normal 0-12 [facility] Comment on above: Result Comment: Nega tive: <13 Indeterminate: 13 - 20 Low-Med Positive: >20 - 80 High Positive: >80 Performed By: #### C H50, TPO, RA, DARIEL, C3, C4, THYGLOB AB, CARDIO GMA, CCP, B2 GLYPROT, CHROMATIN #### [facility] , Antithyroglobulin Abon 01-17 Antithyroglobulin Ab 7.7 [IU]/mL High 0.0-0.9 [facility] Comment on above: Result Comment: Thyr oglobulin Antibody measured by Demetra Jay Methodology It should be noted that the presence of thyroglobulin antibodies may not be pathogenic nor diagnostic, especially at very low levels. The assay hotel custodian has found that four percent of individuals without evidence of thyroid disease or autoimmunity will have positive TgAb levels up to 4 IU/mL. Performed at: [address] [id number] Bird Tender: Raul Nieves PhD, Phone: [phone] Performed By: #### C H50, TPO, RA, DARIEL, C3, C4, THYGLOB AB, CARDIO GMA, CCP, B2 GLYPROT, CHROMATIN #### [facility] , Appearance of UrineOrdered B y: Boo Godoy on 01-17-2025 Appearance (U) Urine appearance Clear [facility] Aspartate aminotransferase [ Enzymatic activity/volume] in Serum or PlasmaOrdered By: Boo Godoy on 01-17-2025 AST [Catalytic activity/Vol] Aspartate aminotransferase [Enzymatic activity/volume] in Serum or Plasma 13-39 [facility] Bacteria [Presence] in Urine by AutomatedOrdered By: Boo Godoy on 01-17-2025 Bacteria Auto Ql (U) Bacteria [Presence] in Urine by Automated None Seen [facility] Basophils Auto (Bld) [#/Vol] Ordered By: Boo Godoy on 01-17-2025 Basophils (Bld) [#/Vol] Automated basophil count 0.0-0.2 [facility] Basophils/100 WBC Auto (Bld) Ordered By: Boo Godoy on 01-17-2025 Basophils/100 WBC (Bld) Automated basophil % . [facility] Beta 2 Glycoprotein I Ab IgG /Mon 01-17-2025 Beta 2 Glycoprotein I Ab, IgG <9 Normal 0-20 [facility] Comment on above: Result Comment: Resu lt Units: GPI IgG units The reference interval reflects a 3SD or 99th percentile interval, which is thought to represent a potentially clinically significant result in accordance with the International Consensus Statement on the classification criteria for definitive antiphospholipid syndrome (APS). J Thromb Haem 2006;4:295-306. Performed By: #### C H50, TPO, RA, DARIEL, C3, C4, THYGLOB AB, CARDIO GMA, CCP, B2 GLYPROT, CHROMATIN #### [facility] , Beta 2 Glycoprotein I Ab, IgM <9 Normal 0-32 [facility] Comment on above: Result Comment: Resu lt Units: GPI IgM units The reference interval reflects a 3SD or 99th percentile interval, which is thought to represent a potentially clinically significant result in accordance with the International Consensus Statement on the classification criteria for definitive antiphospholipid syndrome (APS). J Thromb Haem 2006;4:295-306. Performed at: [facility] [address] [id number] Bird Tender: Raul Nieves PhD, Phone: [phone] Performed By: #### C H50, TPO, RA, DARIEL, C3, C4, THYGLOB AB, CARDIO GMA, CCP, B2 GLYPROT, CHROMATIN #### [facility] , Bilirubin Test strip Ql (U)O rdered By: Boo Godoy on 01-17-2025 Bilirubin Ql (U) Bilirubin.total [Pre sence] in Urine by Test strip Negative [facility] Bilirubin.total [Mass/volume ] in Serum or PlasmaOrdered By: Boo Godoy on 01-17-2025 Bilirubin [Mass/Vol] Bilirubin.total [Mass/volume] in Serum or Plasma 0.3-1.0 [facility] C reactive protein [Mass/vol ume] in Serum or PlasmaOrdered By: Boo Godoy on 01-17-2025 CRP [Mass/Vol] C reactive protein [Mass/volume] in Serum or Plasma 0.0-0.5 [facility] C-Reactive Proteinon 025 CRP [Mass/Vol] mg/L Normal 0.0-0.5 [facility] Comment on above: Performed By: #### C H50, TPO, RA, DARIEL, C3, C4, THYGLOB AB, CARDIO GMA, CCP, B2 GLYPROT, CHROMATIN #### [facility] , Calcium [Mass/volume] in Ser um or PlasmaOrdered By: Boo Godoy on 01-17-2025 Calcium [Mass/Vol] Calcium [Mass/volume ] in Serum or Plasma 8.6-10.3 [facility] Carbon dioxide, total [Moles /volume] in Serum or PlasmaOrdered By: Boo Godoy on 01-17-2025 CO2 [Moles/Vol] Carbon dioxide, tota l [Moles/volume] in Serum or Plasma 21.0-31.0 [facility] Chloride [Moles/volume] in S radha or PlasmaOrdered By: Boo Godoy on 01-17-2025 Chloride [Moles/Vol] Chloride [Moles/vol ume] in Serum or Plasma High 98-107 [facility] Chromatin Antibodyon 025 Chromatin Antibody <0.2 Normal 0.0-0.9 [facility] Comment on above: Result Comment: Perf ormed at: - [facility] [place] [address] [place], [place] [id number] Bird Tender: Raul Nieves PhD, Phone: [phone] PERFORMED BY: [facility] [address] [place] [address] PATHOLOGIST MANAGER SUPPLY RHONDA BAUER M.D. Performed By: #### C H50, TPO, RA, DARIEL, C3, C4, THYGLOB AB, CARDIO GMA, CCP, B2 GLYPROT, CHROMATIN #### [facility] , Coagulation Profileon 2024 aPTT Coag (Bld) [Time] 29.6 s Normal 25.1-36.5 [facility] Comment on above: Result Comment: A he matocrit value greater than 55% may lead to inaccurate results in coagulation testing. Patients having hematocrit values >55% require a special collection tube for coagulation studies. Please contact the laboratory at [phone] for redraw instructions. PERFORMED BY: [address] [address] PATHOLOGIST MANAGER SUPPLY RHONDA BAUER M.D. Performed By: #### C H50, TPO, RA, DARIEL, C3, C4, THYGLOB AB, CARDIO GMA, CCP, B2 GLYPROT, CHROMATIN #### [facility] , INR Coag (PPP) [Relative time] 1.0 {INR} Normal [facility] Comment on above: Result Comment: INR Therapeutic Range A) Pre- and Peroperative OAT started two weeks before surgery. NOT HIP SURGERY: 1.5 - 2.5 HIP SURGERY: 2 - 3 B) Primary and secondary prevention of venous THROMBOSIS: 2 - 3 C) Active venous thrombosis, pulmonary embolism and prevention of recurrent venous thrombosis: 2 - 3 D) Prevention of arterial thromboembolism including patients with mechanical heart valves: 3 - 4.5 Performed By: #### C H50, TPO, RA, DARIEL, C3, C4, THYGLOB AB, CARDIO GMA, CCP, B2 GLYPROT, CHROMATIN #### [facility] , PT Coag (PPP) [Time] 11.5 s Normal 9.0-12.9 [facility] Comment on above: Result Comment: A he matocrit value greater than 55% may lead to inaccurate results in coagulation testing. Patients having hematocrit values >55% require a special collection tube for coagulation studies. Please contact the laboratory at [phone] for redraw instructions. Performed By: #### C H50, TPO, RA, DARIEL, C3, C4, THYGLOB AB, CARDIO GMA, CCP, B2 GLYPROT, CHROMATIN #### [facility] , Color Auto (U)Ordered By: Purnima Godoy on 01-17-2025 Color (U) Color of Urine by Auto [facility] Complement C3on 01-17-2025 Complement C3 132 mg/dL Normal 82-167 [facility] Comment on above: Performed By: #### C H50, TPO, RA, DARIEL, C3, C4, THYGLOB AB, CARDIO GMA, CCP, B2 GLYPROT, CHROMATIN #### [facility] , Complement C4on 01-17-2025 Complement C4 26 mg/dL Normal 12-38 [facility] Comment on above: Performed By: #### C H50, TPO, RA, DARIEL, C3, C4, THYGLOB AB, CARDIO GMA, CCP, B2 GLYPROT, CHROMATIN #### [facility] , Complement Total (CH50)on Complement Total (CH50) >60 Normal >41 [facility] Comment on above: Result Comment: Age Male Female 1 - 30 days Not Estab. Not Estab. 31 days - 6 months >32 >20 7 months - 17 years >39 >39 >17 years >41 >41 NOTE: The adult ( >17 years ) reference interval range is used to flag abnormals on this report. If the patient is 17 years old or younger, use the table above to determine out of range values. Performed at: - [facility] [id number] Bird Tender: Raul Nieves PhD, Phone: [phone] PERFORMED BY: [address] [address] PATHOLOGIST MANAGER SUPPLY RHONDA BAUER M.D. Performed By: #### C H50, TPO, RA, DARIEL, C3, C4, THYGLOB AB, CARDIO GMA, CCP, B2 GLYPROT, CHROMATIN #### [facility] , Complete Blood Count Auto Di ffon 01-17-2025 Basophils (Bld) [#/Vol] 0.1 10*3/uL Normal 0.0-0.2 [facility] Comment on above: Performed By: #### C H50, TPO, RA, DARIEL, C3, C4, THYGLOB AB, CARDIO GMA, CCP, B2 GLYPROT, CHROMATIN #### [facility] , Basophils/100 WBC (Bld) 0.9 % Normal . [facility] Comment on above: Performed By: #### C H50, TPO, RA, DARIEL, C3, C4, THYGLOB AB, CARDIO GMA, CCP, B2 GLYPROT, CHROMATIN #### [facility] , Eosinophils (Bld) [#/Vol] 0.1 10*3/uL Normal 0.0-0.45 [facility] Comment on above: Performed By: #### C H50, TPO, RA, DARIEL, C3, C4, THYGLOB AB, CARDIO GMA, CCP, B2 GLYPROT, CHROMATIN #### [facility] , Eosinophils/100 WBC (Bld) 1.8 % Normal . [facility] Comment on above: Performed By: #### C H50, TPO, RA, DARIEL, C3, C4, THYGLOB AB, CARDIO GMA, CCP, B2 GLYPROT, CHROMATIN #### [facility] , Erythrocyte distribution width (RBC) [Ratio] 12.8 % Normal 11.9-15.3 [facility] Comment on above: Performed By: #### C H50, TPO, RA, DARIEL, C3, C4, THYGLOB AB, CARDIO GMA, CCP, B2 GLYPROT, CHROMATIN #### [facility] , Hematocrit (Bld) [Volume fraction] 38.9 % Normal 34.0-46.4 [facility] Comment on above: Performed By: #### C H50, TPO, RA, DARIEL, C3, C4, THYGLOB AB, CARDIO GMA, CCP, B2 GLYPROT, CHROMATIN #### [facility] , Hemoglobin (Bld) [Mass/Vol] 12.9 g/dL Normal 11.8-15.4 [facility] Comment on above: Performed By: #### C H50, TPO, RA, DARIEL, C3, C4, THYGLOB AB, CARDIO GMA, CCP, B2 GLYPROT, CHROMATIN #### [facility] , Lymphocytes (Bld) [#/Vol] 1.4 10*3/uL Normal 1.00-4.8 [facility] Comment on above: Performed By: #### C H50, TPO, RA, DARIEL, C3, C4, THYGLOB AB, CARDIO GMA, CCP, B2 GLYPROT, CHROMATIN #### [facility] , Lymphocytes/100 WBC (Bld) 21.0 % Normal . [facility] Comment on above: Performed By: #### C H50, TPO, RA, DARIEL, C3, C4, THYGLOB AB, CARDIO GMA, CCP, B2 GLYPROT, CHROMATIN #### [facility] , MCH (RBC) [Entitic mass] 30.2 pg Normal 24.7-34.3 [facility] Comment on above: Performed By: #### C H50, TPO, RA, DARIEL, C3, C4, THYGLOB AB, CARDIO GMA, CCP, B2 GLYPROT, CHROMATIN #### [facility] , MCV (RBC) [Entitic vol] 90.5 fL Normal 80-100 [facility] Comment on above: Performed By: #### C H50, TPO, RA, DARIEL, C3, C4, THYGLOB AB, CARDIO GMA, CCP, B2 GLYPROT, CHROMATIN #### [facility] , Mean Corpuscular HGB Conc 33.3 g/dL Normal 32.0-35.0 [facility] Comment on above: Performed By: #### C H50, TPO, RA, DARIEL, C3, C4, THYGLOB AB, CARDIO GMA, CCP, B2 GLYPROT, CHROMATIN #### [facility] , Monocytes (Bld) [#/Vol] 0.6 10*3/uL Normal 0.0-0.8 [facility] Comment on above: Performed By: #### C H50, TPO, RA, DARIEL, C3, C4, THYGLOB AB, CARDIO GMA, CCP, B2 GLYPROT, CHROMATIN #### [facility] , Monocytes/100 WBC (Bld) 8.9 % Normal . [facility] Comment on above: Performed By: #### C H50, TPO, RA, DARIEL, C3, C4, THYGLOB AB, CARDIO GMA, CCP, B2 GLYPROT, CHROMATIN #### [facility] , Neutrophils (Bld) [#/Vol] 4.4 10*3/uL Normal 1.8-7.7 [facility] Comment on above: Performed By: #### C H50, TPO, RA, DARIEL, C3, C4, THYGLOB AB, CARDIO GMA, CCP, B2 GLYPROT, CHROMATIN #### [facility] , Neutrophils/100 WBC (Bld) 67.4 % Normal . [facility] Comment on above: Performed By: #### C H50, TPO, RA, DARIEL, C3, C4, THYGLOB AB, CARDIO GMA, CCP, B2 GLYPROT, CHROMATIN #### [facility] , NRBC% 0.2 /100{WBC} Normal 0-0.5 [facility] Comment on above: Performed By: #### C H50, TPO, RA, DARIEL, C3, C4, THYGLOB AB, CARDIO GMA, CCP, B2 GLYPROT, CHROMATIN #### [facility] , Platelet mean volume (Bld) [Entitic vol] 9.4 fL Normal 6.3-10.7 [facility] Comment on above: Performed By: #### C H50, TPO, RA, DARIEL, C3, C4, THYGLOB AB, CARDIO GMA, CCP, B2 GLYPROT, CHROMATIN #### [facility] , Platelets (Bld) [#/Vol] 240 10*3/uL Normal 150-450 [facility] Comment on above: Performed By: #### C H50, TPO, RA, DARIEL, C3, C4, THYGLOB AB, CARDIO GMA, CCP, B2 GLYPROT, CHROMATIN #### [facility] , RBC (Bld) [#/Vol] 4.29 10*6/uL Normal 3.60-5.00 [facility] Comment on above: Performed By: #### C H50, TPO, RA, DARIEL, C3, C4, THYGLOB AB, CARDIO GMA, CCP, B2 GLYPROT, CHROMATIN #### [facility] , WBC (Bld) [#/Vol] 6.5 10*3/uL Normal 3.8-11.6 [facility] Comment on above: Performed By: #### C H50, TPO, RA, DARIEL, C3, C4, THYGLOB AB, CARDIO GMA, CCP, B2 GLYPROT, CHROMATIN #### [facility] , Comprehensive Metabolic Pane israel 01-17-2025 Albumin [Mass/Vol] 4.2 g/dL Normal 3.5-5.7 [facility] Comment on above: Performed By: #### C H50, TPO, RA, DARIEL, C3, C4, THYGLOB AB, CARDIO GMA, CCP, B2 GLYPROT, CHROMATIN #### [facility] , Albumin/Globulin [Mass ratio] 1.8 {ratio} Normal [facility] Comment on above: Performed By: #### C H50, TPO, RA, DARIEL, C3, C4, THYGLOB AB, CARDIO GMA, CCP, B2 GLYPROT, CHROMATIN #### [facility] , ALP [Catalytic activity/Vol] 56 U/L Normal 34-104 [facility] Comment on above: Performed By: #### C H50, TPO, RA, DARIEL, C3, C4, THYGLOB AB, CARDIO GMA, CCP, B2 GLYPROT, CHROMATIN #### [facility] , ALT [Catalytic activity/Vol] 14 U/L Normal 7-52 [facility] Comment on above: Performed By: #### C H50, TPO, RA, DARIEL, C3, C4, THYGLOB AB, CARDIO GMA, CCP, B2 GLYPROT, CHROMATIN #### [facility] , Anion gap [Moles/Vol] 10.0 mmol/L Normal 6.0-15.0 [facility] Comment on above: Performed By: #### C H50, TPO, RA, DARIEL, C3, C4, THYGLOB AB, CARDIO GMA, CCP, B2 GLYPROT, CHROMATIN #### [facility] , AST [Catalytic activity/Vol] 16 U/L Normal 13-39 [facility] Comment on above: Performed By: #### C H50, TPO, RA, DARIEL, C3, C4, THYGLOB AB, CARDIO GMA, CCP, B2 GLYPROT, CHROMATIN #### [facility] , Bilirubin [Mass/Vol] 0.8 mg/dL Normal 0.3-1.0 [facility] Comment on above: Performed By: #### C H50, TPO, RA, DARIEL, C3, C4, THYGLOB AB, CARDIO GMA, CCP, B2 GLYPROT, CHROMATIN #### [facility] , Calcium [Mass/Vol] 9.8 mg/dL Normal 8.6-10.3 [facility] Comment on above: Performed By: #### C H50, TPO, RA, DARIEL, C3, C4, THYGLOB AB, CARDIO GMA, CCP, B2 GLYPROT, CHROMATIN #### [facility] , Chloride [Moles/Vol] 108 mmol/L High 98-107 [facility] Comment on above: Performed By: #### C H50, TPO, RA, DARIEL, C3, C4, THYGLOB AB, CARDIO GMA, CCP, B2 GLYPROT, CHROMATIN #### [facility] , CO2 [Moles/Vol] 28.0 mmol/L Normal 21.0-31.0 [facility] Comment on above: Performed By: #### C H50, TPO, RA, DARIEL, C3, C4, THYGLOB AB, CARDIO GMA, CCP, B2 GLYPROT, CHROMATIN #### [facility] , Creatinine [Mass/Vol] 0.69 mg/dL Normal 0.60-1.20 [facility] Comment on above: Performed By: #### C H50, TPO, RA, DARIEL, C3, C4, THYGLOB AB, CARDIO GMA, CCP, B2 GLYPROT, CHROMATIN #### [facility] , GFR/1.73 sq M.predicted MDRD (S/P/Bld) [Vol rate/Area] mL/min/{1.73_m2} Normal [facility] Comment on above: Performed By: #### C H50, TPO, RA, DARIEL, C3, C4, THYGLOB AB, CARDIO GMA, CCP, B2 GLYPROT, CHROMATIN #### [facility] , Globulin (S) [Mass/Vol] 2.4 g/dL Normal [facility] Comment on above: Performed By: #### C H50, TPO, RA, DARIEL, C3, C4, THYGLOB AB, CARDIO GMA, CCP, B2 GLYPROT, CHROMATIN #### [facility] , Glucose [Mass/Vol] 103 mg/dL High 70-100 [facility] Comment on above: Result Comment: [place] Glucose Reference Range is dependent on time and content of last meal. Glucose of more than 200 mg/dL in a nonstressed, ambulatory subject supports the diagnosis of Diabetes Mellitus. ADA recommended reference range Performed By: #### C H50, TPO, RA, DARIEL, C3, C4, THYGLOB AB, CARDIO GMA, CCP, B2 GLYPROT, CHROMATIN #### [facility] , Potassium [Moles/Vol] 4.0 mmol/L Normal 3.5-5.1 [facility] Comment on above: Performed By: #### C H50, TPO, RA, DARIEL, C3, C4, THYGLOB AB, CARDIO GMA, CCP, B2 GLYPROT, CHROMATIN #### [facility] , Protein [Mass/Vol] 6.6 g/dL Normal 6.4-8.9 [facility] Comment on above: Performed By: #### C H50, TPO, RA, DARIEL, C3, C4, THYGLOB AB, CARDIO GMA, CCP, B2 GLYPROT, CHROMATIN #### [facility] , Sodium [Moles/Vol] 142 mmol/L Normal 136-145 [facility] Comment on above: Performed By: #### C H50, TPO, RA, DARIEL, C3, C4, THYGLOB AB, CARDIO GMA, CCP, B2 GLYPROT, CHROMATIN #### [facility] , Urea nitrogen [Mass/Vol] 19 mg/dL Normal 7-25 [facility] Comment on above: Performed By: #### C H50, TPO, RA, DARIEL, C3, C4, THYGLOB AB, CARDIO GMA, CCP, B2 GLYPROT, CHROMATIN #### [facility] , Creatine Kinaseon 01-17-2025 CK [Catalytic activity/Vol] 88 U/L Normal 30-223 [facility] Comment on above: Result Comment: PERF ORMED BY: [facility] [address] [place] [address] PATHOLOGIST MANAGER SUPPLY RHONDA BAUER M.D. Performed By: #### C H50, TPO, RA, DARIEL, C3, C4, THYGLOB AB, CARDIO GMA, CCP, B2 GLYPROT, CHROMATIN #### [facility] , Creatine kinase [Enzymatic a ctivity/volume] in Serum or PlasmaOrdered By: Boo Godoy on 01-17-2025 CK [Catalytic activity/Vol] Creatine kinase [Enzymatic activity/volume] in Serum or Plasma 30-223 [facility] Creatinine [Mass/volume] in Serum or PlasmaOrdered By: Boo Godoy on 01-17-2025 Creatinine [Mass/Vol] Creatinine [Mass/v olume] in Serum or Plasma 0.60-1.20 [facility] Cyclic Citrulliated Pep Abon 01-17-2025 Cyclic Citrulliated Pep Ab 5 Normal 0-19 [facility] Comment on above: Result Comment: Nega tive <20 Weak positive 20 - 39 Moderate positive 40 - 59 Strong positive >59 Performed at: [facility] [address] [id number] Bird Tender: Raul Nieves PhD, Phone: [phone] Performed By: #### C H50, TPO, RA, DARIEL, C3, C4, THYGLOB AB, CARDIO GMA, CCP, B2 GLYPROT, CHROMATIN #### [facility] , Dipstick and Microscopicon 0 01-17-2025 Appearance (U) Clear Normal Clear [facility] Comment on above: Order Comment: Name Collection Type:: Clean-Voided Midstream Performed By: #### C H50, TPO, RA, DARIEL, C3, C4, THYGLOB AB, CARDIO GMA, CCP, B2 GLYPROT, CHROMATIN #### [facility] , Bacteria,Urine None Seen Normal None Seen [facility] Comment on above: Order Comment: Name Collection Type:: Clean-Voided Midstream Performed By: #### C H50, TPO, RA, DARIEL, C3, C4, THYGLOB AB, CARDIO GMA, CCP, B2 GLYPROT, CHROMATIN #### [facility] , Bilirubin,Urine Negative Normal Negative [facility] Comment on above: Order Comment: Name Collection Type:: Clean-Voided Midstream Performed By: #### C H50, TPO, RA, DARIEL, C3, C4, THYGLOB AB, CARDIO GMA, CCP, B2 GLYPROT, CHROMATIN #### [facility] , Color (U) Light-Yellow Normal Yellow [facility] Comment on above: Order Comment: Name Collection Type:: Clean-Voided Midstream Performed By: #### C H50, TPO, RA, DARIEL, C3, C4, THYGLOB AB, CARDIO GMA, CCP, B2 GLYPROT, CHROMATIN #### [facility] , Glucose Ql (U) Normal Normal Normal [facility] Comment on above: Order Comment: Name Collection Type:: Clean-Voided Midstream Performed By: #### C H50, TPO, RA, DARIEL, C3, C4, THYGLOB AB, CARDIO GMA, CCP, B2 GLYPROT, CHROMATIN #### [facility] , Hyaline Casts,Urine 0-8 Normal 0-8 [facility] Comment on above: Order Comment: Name Collection Type:: Clean-Voided Midstream Performed By: #### C H50, TPO, RA, DARIEL, C3, C4, THYGLOB AB, CARDIO GMA, CCP, B2 GLYPROT, CHROMATIN #### [facility] , Ketones Ql (U) Negative Normal Negative [facility] Comment on above: Order Comment: Name Collection Type:: Clean-Voided Midstream Performed By: #### C H50, TPO, RA, DARIEL, C3, C4, THYGLOB AB, CARDIO GMA, CCP, B2 GLYPROT, CHROMATIN #### [facility] , Leukocyte esterase Test strip Ql (U) Negative Normal Negative [facility] Comment on above: Order Comment: Name Collection Type:: Clean-Voided Midstream Performed By: #### C H50, TPO, RA, DARIEL, C3, C4, THYGLOB AB, CARDIO GMA, CCP, B2 GLYPROT, CHROMATIN #### [facility] , Mucus,Urine 1+ Critically abnormal [facility] Comment on above: Order Comment: Name Collection Type:: Clean-Voided Midstream Result Comment: PERF ORMED BY: [place] [address] [place] [address] PATHOLOGIST MANAGER SUPPLY RHONDA BAUER M.D. Performed By: #### C H50, TPO, RA, DARIEL, C3, C4, THYGLOB AB, CARDIO GMA, CCP, B2 GLYPROT, CHROMATIN #### [facility] , Nitrite,Urine Negative Normal Negative [facility] Comment on above: Order Comment: Name Collection Type:: Clean-Voided Midstream Performed By: #### C H50, TPO, RA, DARIEL, C3, C4, THYGLOB AB, CARDIO GMA, CCP, B2 GLYPROT, CHROMATIN #### [facility] , Occult Blood,Urine Negative Normal Negative [facility] Comment on above: Order Comment: Name Collection Type:: Clean-Voided Midstream Performed By: #### C H50, TPO, RA, DARIEL, C3, C4, THYGLOB AB, CARDIO GMA, CCP, B2 GLYPROT, CHROMATIN #### [facility] , pH (U) 7.0 [pH] Normal 5.0-9.0 [facility] Comment on above: Order Comment: Name Collection Type:: Clean-Voided Midstream Performed By: #### C H50, TPO, RA, DARIEL, C3, C4, THYGLOB AB, CARDIO GMA, CCP, B2 GLYPROT, CHROMATIN #### [facility] , Protein,Urine Negative Normal Negative [facility] Comment on above: Order Comment: Name Collection Type:: Clean-Voided Midstream Performed By: #### C H50, TPO, RA, DARIEL, C3, C4, THYGLOB AB, CARDIO GMA, CCP, B2 GLYPROT, CHROMATIN #### [facility] , RBC,Urine 1-2 Normal 0-4 [facility] Comment on above: Order Comment: Name Collection Type:: Clean-Voided Midstream Performed By: #### C H50, TPO, RA, DARIEL, C3, C4, THYGLOB AB, CARDIO GMA, CCP, B2 GLYPROT, CHROMATIN #### [facility] , Specificy Hope,Urine 1.022 Normal 1.001-1.03 0 [facility] Comment on above: Order Comment: Name Collection Type:: Clean-Voided Midstream Performed By: #### C H50, TPO, RA, DARIEL, C3, C4, THYGLOB AB, CARDIO GMA, CCP, B2 GLYPROT, CHROMATIN #### [facility] , Squamous Epithelial Cell,Urine 1-2 Normal 0-2 [facility] Comment on above: Order Comment: Name Collection Type:: Clean-Voided Midstream Performed By: #### C H50, TPO, RA, DARIEL, C3, C4, THYGLOB AB, CARDIO GMA, CCP, B2 GLYPROT, CHROMATIN #### [facility] , Urobilinogen,Urine Normal Normal Normal [facility] Comment on above: Order Comment: Name Collection Type:: Clean-Voided Midstream Performed By: #### C H50, TPO, RA, DARIEL, C3, C4, THYGLOB AB, CARDIO GMA, CCP, B2 GLYPROT, CHROMATIN #### [facility] , WBC,Urine 1-2 Normal 0-4 [facility] Comment on above: Order Comment: Name Collection Type:: Clean-Voided Midstream Performed By: #### C H50, TPO, RA, DARIEL, C3, C4, THYGLOB AB, CARDIO GMA, CCP, B2 GLYPROT, CHROMATIN #### [facility] , Eosinophils Auto (Bld) [#/Vo l]Ordered By: Boo Godoy on 01-17-2025 Eosinophils (Bld) [#/Vol] Automated eosinophil count 0.0-0.45 [facility] Eosinophils/100 WBC Auto (Bl d)Ordered By: Boo Godoy on 01-17-2025 Eosinophils/100 WBC (Bld) Automated eosinophil % . [facility] Epithelial cells.squamous [# /area] in Urine sediment by Automated countOrdered By: Boo Godoy on 01-17-2025 Epithelial cells.squamous Auto (Urine sed) [#/Area] Epithelial cells.squamous [#/area] in Urine sediment by Automated count 0-2 [facility] Erythrocyte Sedimentation Ra nan 01-17-2025 ESR (Bld) [Velocity] 22 mm/h Normal 0-29 [facility] Comment on above: Result Comment: PERF ORMED BY: [facility] [address] [place] [address] PATHOLOGIST MANAGER SUPPLY RHONDA BAUER M.D. Performed By: #### C H50, TPO, RA, DARIEL, C3, C4, THYGLOB AB, CARDIO GMA, CCP, B2 GLYPROT, CHROMATIN #### [facility] , Erythrocyte distribution wid th Auto (RBC) [Ratio]Ordered By: Boo Godoy on 01-17-2025 Erythrocyte distribution width (RBC) [Ratio] Erythrocyte distribution width [Ratio] by Automated count 11.9-15.3 [facility] Erythrocyte sedimentation ra te by Photometric methodOrdered By: Boo Godoy on 01-17-2025 ESR Photometric method (Bld) [Velocity] Erythrocyte sedimentation rate by Photometric method 0-29 [facility] Erythrocytes [#/area] in Uri ne sediment by Automated countOrdered By: oBo Godoy on 01-17-2025 RBC Auto (Urine sed) [#/Area] Erythrocytes [#/area] in Urine sediment by Automated count 0-4 [facility] Free T4 (Free Thyroxine)on 0 01-17-2025 Free T4 [Mass/Vol] 1.62 ng/dL High 0.61-1.12 [facility] Comment on above: Performed By: #### C H50, TPO, RA, DARIEL, C3, C4, THYGLOB AB, CARDIO GMA, CCP, B2 GLYPROT, CHROMATIN #### [facility] , Globulin Calc (S) [Mass/Vol] Ordered By: Boo Godoy on 01-17-2025 Globulin (S) [Mass/Vol] Serum globulin measurement by calculation (mass/volume) [facility] Glucose [Mass/volume] in Ser um or PlasmaOrdered By: Boo Godoy on 01-17-2025 Glucose [Mass/Vol] Glucose [Mass/volume ] in Serum or Plasma High 70-100 [facility] Comment on above: ADA recommended refe rence rangeRandom Glucose Reference Range is dependent on time and content of last meal. Glucose of more than 200 mg/dL in a nonstressed, ambulatory subject supports the diagnosis of Diabetes Mellitus. Glucose [Mass/volume] in Uri ne by Test stripOrdered By: Boo Godoy on 01-17-2025 Glucose Test strip (U) [Mass/Vol] Glucose [Mass/volume] in Urine by Test strip Normal [facility] Hematocrit Auto (Bld) [Volum e fraction]Ordered By: Boo Godoy on 01-17-2025 Hematocrit (Bld) [Volume fraction] Hematocrit [Volume Fraction] of Blood by Automated count 34.0-46.4 [facility] Hemoglobin Test strip Ql (U) Ordered By: Boo Godoy on 01-17-2025 Hemoglobin Ql (U) Hemoglobin [Presence ] in Urine by Test strip Negative [facility] Hemoglobin [Mass/volume] in BloodOrdered By: Boo Godoy on 01-17-2025 Hemoglobin (Bld) [Mass/Vol] Hemoglobin [Mass/volume] in Blood 11.8-15.4 [facility] Histone Antibodieson 025 Histone Antibodies 0.4 Normal 0.0-0.9 [facility] Comment on above: Result Comment: Nega tive <1.0 Weak Positive 1.0 - 1.5 Moderate Positive 1.6 - 2.5 Strong Positive >2.5 Performed at: - [facility] [id number] Bird Tender: Epi Buckley MD, Phone: [phone] Performed By: #### C H50, TPO, RA, DARIEL, C3, C4, THYGLOB AB, CARDIO GMA, CCP, B2 GLYPROT, CHROMATIN #### [facility] , Hyaline casts [#/area] in Ur ine sediment by Automated countOrdered By: Boo Godoy on 01-17-2025 Hyaline casts Auto (Urine sed) [#/Area] Hyaline casts [#/area] in Urine sediment by Automated count 0-8 [facility] INR in Platelet poor plasma by Coagulation assayOrdered By: Boo Godoy on 01-17-2025 INR Coag (PPP) [Relative time] INR in Platelet poor plasma by Coagulation assay [facility] Comment on above: INR Therapeutic Rang e A) Pre- and Peroperative OAT started two weeks before surgery. NOT HIP SURGERY: 1.5 - 2.5 HIP SURGERY: 2 - 3B) Primary and secondary prevention of venous THROMBOSIS: 2 - 3C) Active venous thrombosis, pulmonary embolismand prevention of recurrent venous thrombosis: 2 - 3D) Prevention of arterial thromboembolismincluding patients with mechanical heart valves: 3 - 4.5 CHIO-1 Antibodyon 01-17-2025 CHIO-1 Antibody <0.2 Normal 0.0-0.9 [facility] Comment on above: Performed By: #### C H50, TPO, RA, DARIEL, C3, C4, THYGLOB AB, CARDIO GMA, CCP, B2 GLYPROT, CHROMATIN #### [facility] , Ketones Test strip Ql (U)Ord ered By: Boo Godoy on 01-17-2025 Ketones Ql (U) Ketones [Presence] i n Urine by Test strip Negative [facility] Leukocyte esterase [Presence ] in Urine by Test stripOrdered By: Boo Ambrosiorow on 01-17-2025 Leukocyte esterase Test strip Ql (U) Leukocyte esterase [Presence] in Urine by Test strip Negative [facility] Leukocytes [#/area] in Urine sediment by Automated countOrdered By: Boo Godoy on 01-17-2025 WBC Auto (Urine sed) [#/Area] Leukocytes [#/area] in Urine sediment by Automated count 0-4 [facility] Leukocytes [#/volume] correc nida for nucleated erythrocytes in Blood by Automated counOrdered By: Boo Godoy on 01-17-2025 WBC corrected for nucl RBC Auto (Bld) [#/Vol] Leukocytes [#/volume] corrected for nucleated erythrocytes in Blood by Automated coun 3.8-11.6 [facility] Lupus Anticoagulant Compon 0 01-17-2025 Dilute Prothrombin Time (dPt) 35.2 Normal 0.0-47.6 [facility] Comment on above: Performed By: #### C H50, TPO, RA, DARIEL, C3, C4, THYGLOB AB, CARDIO GMA, CCP, B2 GLYPROT, CHROMATIN #### [facility] , dPT Confirm Ratio 0.99 Normal 0.00-1.34 [facility] Comment on above: Performed By: #### C H50, TPO, RA, DARIEL, C3, C4, THYGLOB AB, CARDIO GMA, CCP, B2 GLYPROT, CHROMATIN #### [facility] , DRVVT Lupus 36.9 Normal 0.0-47.0 [facility] Comment on above: Performed By: #### C H50, TPO, RA, DARIEL, C3, C4, THYGLOB AB, CARDIO GMA, CCP, B2 GLYPROT, CHROMATIN #### [facility] , Interpretation Comment: Normal . [facility] Comment on above: Result Comment: No l upus anticoagulant was detected. Performed at: [place] [id number] Bird Tender: Epi Buckley MD, Phone: [phone] PERFORMED BY: [facility] [place] [address] PATHOLOGIST MANAGER SUPPLY RHONDA BAUER M.D. Performed By: #### C H50, TPO, RA, DARIEL, C3, C4, THYGLOB AB, CARDIO GMA, CCP, B2 GLYPROT, CHROMATIN #### [facility] , PTT-LA 30.7 Normal 0.0-43.5 [facility] Comment on above: Performed By: #### C H50, TPO, RA, DARIEL, C3, C4, THYGLOB AB, CARDIO GMA, CCP, B2 GLYPROT, CHROMATIN #### [facility] , Thrombin Time 16.6 Normal 0.0-23.0 [facility] Comment on above: Performed By: #### C H50, TPO, RA, DARIEL, C3, C4, THYGLOB AB, CARDIO GMA, CCP, B2 GLYPROT, CHROMATIN #### [facility] , Lymphocytes Auto (Bld) [#/Vo l]Ordered By: Boo Godoy on 01-17-2025 Lymphocytes (Bld) [#/Vol] Lymphocytes [#/volume] in Blood by Automated count 1.00-4.8 [facility] Lymphocytes/100 WBC Auto (Bl d)Ordered By: Boo Godoy on 01-17-2025 Lymphocytes/100 WBC (Bld) Lymphocytes/100 leukocytes in Blood by Automated count . [facility] MCH Auto (RBC) [Entitic mass ]Ordered By: Boo Godoy on 01-17-2025 MCH (RBC) [Entitic mass] MCH [Entitic mass] by Automated count 24.7-34.3 [facility] MCHC Auto (RBC) [Mass/Vol]Or dered By: Boo Godoy on 01-17-2025 MCHC (RBC) [Mass/Vol] MCHC [Mass/volume] by Automated count 32.0-35.0 [facility] MCV Auto (RBC) [Entitic vol] Ordered By: Boo Godoy on 01-17-2025 MCV (RBC) [Entitic vol] MCV [Entitic volume] by Automated count 80-100 [facility] Monocytes Auto (Bld) [#/Vol] Ordered By: Boo Godoy on 01-17-2025 Monocytes (Bld) [#/Vol] Automated blood monocyte count 0.0-0.8 [facility] Monocytes/100 WBC Auto (Bld) Ordered By: Boo Godoy on 01-17-2025 Monocytes/100 WBC (Bld) Automated monocyte % . [facility] Mucus [Presence] in Urine by AutomatedOrdered By: Boo Godoy on 01-17-2025 Mucus Auto Ql (U) Mucus [Presence] in Urine by Automated Abnormal [facility] Neutrophils Auto (Bld) [#/Vo l]Ordered By: Boo Godoy on 01-17-2025 Neutrophils (Bld) [#/Vol] Neutrophils [#/volume] in Blood by Automated count 1.8-7.7 [facility] Neutrophils/100 WBC Auto (Bl d)Ordered By: Boo Godoy on 01-17-2025 Neutrophils/100 WBC (Bld) Automated neutrophil % . [facility] Nitrite Test strip Ql (U)Ord ered By: Boo Godoy on 01-17-2025 Nitrite Ql (U) Nitrite [Presence] i n Urine by Test strip Negative [facility] No Panel InformationOrdered By: Boo Godoy on 01-17-2025 Estimated GFR (CKD-EPI) > 60.0 mL/Min [facility] Creatinine Clearance (Chem N/A [facility] Nucleated erythrocytes [Pres ence] in Blood by Automated countOrdered By: Boo Godoy on 01-17-2025 Nucleated RBC Auto Ql (Bld) Nucleated erythrocytes [Presence] in Blood by Automated count 0-0.5 [facility] Platelet mean volume Auto (B ld) [Entitic vol]Ordered By: Boo Godoy on 01-17-2025 Platelet mean volume (Bld) [Entitic vol] Platelet mean volume [Entitic volume] in Blood by Automated count 6.3-10.7 [facility] Platelets Auto (Bld) [#/Vol] Ordered By: Boo Godoy on 01-17-2025 Platelets (Bld) [#/Vol] Platelets [#/volume] in Blood by Automated count 150-450 [facility] Potassium [Moles/volume] in Serum or PlasmaOrdered By: Boo Godyo on 01-17-2025 Potassium [Moles/Vol] Potassium [Moles/v olume] in Serum or Plasma 3.5-5.1 [facility] Protein Test strip (U) [Mass /Vol]Ordered By: Boo Godoy on 01-17-2025 Protein (U) [Mass/Vol] Protein [Mass/volume] in Urine by Test strip Negative [facility] Protein [Mass/volume] in Ser um or PlasmaOrdered By: Boo Godoy on 01-17-2025 Protein [Mass/Vol] Protein [Mass/volume ] in Serum or Plasma 6.4-8.9 [facility] Prothrombin time (PT)Ordered By: Boo Godoy on 01-17-2025 PT Coag (PPP) [Time] Prothrombin time (PT) 9.0- 12.9 [facility] Comment on above: A hematocrit value g reater than 55% may lead to inaccurate results in coagulation testing. Patients having hematocrit values >55% require a special collection tube for coagulation studies. Please contact the laboratory at [phone] for redraw instructions. RBC Auto (Bld) [#/Vol]Ordere d By: Boo Godoy on 01-17-2025 RBC (Bld) [#/Vol] Erythrocytes [#/volu me] in Blood by Automated count 3.60-5.00 [facility] RPR w/rfx to Quant TP Abson 01-17-2025 RPR, Rfx Quant RPR Non-Reactive Normal Non Reactive [facility] Comment on above: Result Comment: Perf ormed at: CB - [facility] [address] [id number] Bird Tender: Raul Nieves PhD, Phone: [phone] PERFORMED BY: [facility] [address] [place] [address] PATHOLOGIST MANAGER SUPPLY RHONDA BAUER M.D. Performed By: #### C H50, TPO, RA, DARIEL, C3, C4, THYGLOB AB, CARDIO GMA, CCP, B2 GLYPROT, CHROMATIN #### [facility] , Rheumatoid Factoron 01-18-20 Rheumatoid Factor <10.0 Normal <14.0 [facility] Comment on above: Result Comment: Perf ormed at: [facility] [address] [id number] Bird Tender: Raul Nieves PhD, Phone: [phone] Performed By: #### C H50, TPO, RA, DARIEL, C3, C4, THYGLOB AB, CARDIO GMA, CCP, B2 GLYPROT, CHROMATIN #### [facility] , Scleroderma 70 Antibodieson 01-17-2025 Scleroderma 70 Antibodies 0.2 Normal 0.0-0.9 [facility] Comment on above: Performed By: #### C H50, TPO, RA, DARIEL, C3, C4, THYGLOB AB, CARDIO GMA, CCP, B2 GLYPROT, CHROMATIN #### [facility] , Serum or plasma albumin/glob ulin mass ratioOrdered By: Boo Godoy on 01-17-2025 Albumin/Globulin [Mass ratio] Serum or plasma albumin/globulin mass ratio [facility] Serum or plasma anion gap de terminationOrdered By: Boo Godoy on 01-17-2025 Anion gap [Moles/Vol] Serum or plasma an ion gap determination 6.0-15.0 [facility] Sjogrens Anti-SSA/SSBon SS-A/Ro Sjogrens Antibody <0.2 Normal 0.0-0.9 [facility] Comment on above: Performed By: #### C H50, TPO, RA, DARIEL, C3, C4, THYGLOB AB, CARDIO GMA, CCP, B2 GLYPROT, CHROMATIN #### [facility] , SS-B/La Sjogrens Antibody <0.2 Normal 0.0-0.9 [facility] Comment on above: Performed By: #### C H50, TPO, RA, DARIEL, C3, C4, THYGLOB AB, CARDIO GMA, CCP, B2 GLYPROT, CHROMATIN #### [facility] , Sodium [Moles/volume] in Ser um or PlasmaOrdered By: Boo Godoy on 01-17-2025 Sodium [Moles/Vol] Sodium [Moles/volume ] in Serum or Plasma 136-145 [facility] Specific gravity Test strip (U) [Rel density]Ordered By: Boo Godoy on 01-17-2025 Specific gravity (U) [Rel density] Specific gravity of Urine by Test strip 1.001-1.03 0 [facility] Thyroid Peroxidase Antibodie son 01-17-2025 Thyroid Peroxidase Antibodies 116 [IU]/mL High 0-34 [facility] Comment on above: Result Comment: Perf ormed at: [facility] [address] [id number] Bird Tender: Raul Nieves PhD, Phone: [phone] Performed By: #### C H50, TPO, RA, DARIEL, C3, C4, THYGLOB AB, CARDIO GMA, CCP, B2 GLYPROT, CHROMATIN #### [facility] , Thyroid Stimulating Hormoneo n 01-17-2025 TSH Qn 0.04 m[IU]/L Low 0.45-5.33 [facility] Comment on above: Result Comment: PERF ORMED BY: [address] [place] [address] PATHOLOGIST MANAGER SUPPLY RHONDA BAUER M.D. Performed By: #### C H50, TPO, RA, DARIEL, C3, C4, THYGLOB AB, CARDIO GMA, CCP, B2 GLYPROT, CHROMATIN #### [facility] , Thyrotropin [Units/volume] i n Serum or PlasmaOrdered By: Boo Godoy on 01-17-2025 TSH Qn Thyrotropin [Units/v olume] in Serum or Plasma Low 0.45-5.33 [facility] Thyroxine (T4) free [Mass/vo lume] in Serum or PlasmaOrdered By: Boo Godoy on 01-17-2025 Free T4 [Mass/Vol] Thyroxine (T4) free [Mass/volume] in Serum or Plasma High 0.61-1.12 [facility] Urea nitrogen [Mass/volume] in Serum or PlasmaOrdered By: Boo Godoy on 01-17-2025 Urea nitrogen [Mass/Vol] Urea nitrogen [Mass/volume] in Serum or Plasma 7-25 [facility] Urobilinogen Test strip (U) [Mass/Vol]Ordered By: Boo Godoy on 01-17-2025 Urobilinogen (U) [Mass/Vol] Urobilinogen [Mass/volume] in Urine by Test strip Normal [facility] WBC Auto (Bld) [#/Vol]Ordere d By: Boo Godoy on 01-17-2025 WBC (Bld) [#/Vol] Leukocytes [#/volume ] in Blood by Automated count 3.8-11.6 [facility] aPTT in Platelet poor plasma by Coagulation assayOrdered By: Boo Godoy on 01-17-2025 aPTT Coag (PPP) [Time] Activated partial thromboplastin time (aPTT) in platelet poor plasma by coagulation a 25.1-36.5 [facility] Comment on above: A hematocrit value g reater than 55% may lead to inaccurate results in coagulation testing. Patients having hematocrit values >55% require a special collection tube for coagulation studies. Please contact the laboratory at [phone] for redraw instructions. pH Test strip (U)Ordered By: Boo Godoy on 01-17-2025 pH (U) pH of Urine by Test strip 5.0-9.0 [facility] US PELVIC COMPLETE W/ TVon 0 12-21-2024 [...] II, MD, PHD at 22-Dec-2024 10:37:30 AM [facility] Normal Not Available Comment on above: Order Comment: US PE LVIS-TRANSVAG IF INDICATED No LMP recorded. Patient is postmenopausal. LA Myocardial Spect Rest/Str ess 1 Dayon 12-19-2024 LA Myocardial Spect Rest/Stress 1 Day Exam Date/Time: 12/19/2024 10:40 EST Reason for Exam: R07.9;Chest pain Report [address] [address] Nuclear Stress Report Name: CHLOE AGARWAL Study Date: 12/19/2024 08:10 AM Patient Location: [facility] Ambulatory(s) [facility] : 1955 (M/d/yyyy) Gender: Female Age: 69 yrs Ethnicity: [facility] Reason For Study: R07.9;Chest pain Ordering Physician: Lokesh Mcqueen Referring Physician: Lokesh Mcqueen Protocol 91809 Pharmacologic Lexiscan stress with Isotope. Study Protocol: [...] MD Transcribed by: GARY Technologist: MATTY Vasquez [facility] MM TOMOSYNTHESIS SCREENING B Ion 12-14-2024 [place] [address] Mammography Report Signed Patient: CHLOE AGARWAL MR#: [id number] : 1955 Acct:[id number] Age/Sex: 69 / F ADM Date: 12/14/24 Loc: MAMMO Attending Dr: Antionette Yang Ordering Physician: Antionette Yang Results: Date of Service: 12/14/24 Follow Up: Procedure(s): MM tomosynthesis screening BI Accession Number(s): [id number] cc: Antionette Yang; Vick Mcghee M.D. Patient Name: CHLOE AGARWAL MR#: [id number] : 1955 Exam Date: 12/14/2024 Ordering Doctor: [...] Treatments None Family Cancers None LOCATION: [facility] [place] BREAST COMPOSITION: There are scattered areas of [...] PALPABLE LUMP SHOULD BE BIOPSIED. Dictated by: Kath Myles MD on 12/14/2024 at 11:40 Approved by: Kath Myles MD on 12/14/2024 at 11:47 Dictated By: Kath Myles M.D. Signed By: 12/14/24 1148 DD/ 1147 TD/TT: Artificial Leather Calender Operator: [facility] Radiology, Radiologi MD kimberly - 12/14/2024 [place] [address] Mammography Report Signed Patient: CHLOE AGARWAL MR#: [id number] : 1955 Acct:[id number] Age/Sex: 69 / F ADM Date: 12/14/24 Loc: MAMMO Attending Dr: Antionette Yang Ordering Physician: Antionette Yang Results: Date of Service: 12/14/24 Follow Up: Procedure(s): MM tomosynthesis screening BI Accession Number(s): [id number] cc: Antionette Yang; Vick Mcghee M.D. Patient Name: CHLOE AGARWAL MR#: [id number] : 1955 Exam Date: 12/14/2024 Ordering Doctor: JESSICA Yang . RADIOLOGY REPORT PROCEDURE: MM TOMOSYNTHESIS SCREENING BI COMPARISON: MM TOMOSYNTHESIS SCREENING BI, 11/30/2023. MG MAMM SCREEN 3D LUARA CAD, 10/22/2022. MG MAMM LAURA DIAG W CAD, 06/26/2021. MG MAMM LAURA DIAG W CAD, 09/20/2019. INDICATIONS: Screening Calculator Name NCI Breast Cancer Risk Assessment Tool 5 Year Breast Cancer Risk Not Reported. Lifetime Breast Cancer Risk Not Reported. Personal Breast Cancer No Personal Ovarian Cancer No Treatments None Family Cancers None LOCATION: [facility] [place] BREAST COMPOSITION: There are scattered areas of [...] PALPABLE LUMP SHOULD BE BIOPSIED. Dictated by: Kath Myles MD on 12/14/2024 at 11:40 Approved by: Kath Myles MD on 12/14/2024 at 11:47 Dictated By: Kath Myles M.D. Signed By: 12/14/24 1148 DD/ 1147 TD/TT: Artificial Leather Calender Operator: [facility] Radiology Study observation (narrative) [facility] MM TOMOSYNTHESIS SCREENING B IOrdered By: Radiologist Radiology on 12-14-2024 [facility] Work Phone: IGP,APTIMA HPV,AGE GDLNon AGE GDLN ACOG TESTING Note . [facility] Comment on above: TESTS RESULT FLAG UN ITS REF RANGE LAB Clinician Provided Cytology Information Source.............Cervix;Endocervix No. of containers..01 ThinPrep Vial Age Algo ACOG Adamaris... Note 01 <21 or >65 or no age provided FLAG LEGEND: L-Low Normal,H-High Normal,LL-Alert Low,HH-Alert High <-Panic Low,>-Panic High,A-Abnormal,AA-Critical Abnormal Performed at: 01 =G [facility] [place] [address] [facility] [place] [address] Adelina Nunez MD, PAP IG (IMAGE GUIDED) Note . [facility] Comment on above: TESTS RESULT FLAG UN ITS REF RANGE LAB DIAGNOSIS: 02 NEGATIVE FOR INTRAEPITHELIAL LESION OR MALIGNANCY. CELLULAR CHANGES ASSOCIATED WITH ATROPHY ARE PRESENT. Specimen adequacy: 02 Satisfactory for evaluation. Endocervical component may not be distinguished in cases of atrophy. Performed by: Monique Neely, Buildings And Grounds Supervisor (ASCP) . 02 Note: Note 03 The Pap [...] <-Panic Low,>-Panic High,A-Abnormal,AA-Critical Abnormal Performed at: 02 [place] [facility] [address] [place] [address] Shakila Ivey PhD, 03 WB [facility] [address] [id number] Adelina Nunez MD, Performed at: =G - [facility] [address] [id number] Bird Tender: Adelina Nunez MD, Phone: [phone] Performed at: [place] [facility] [place] [id number] [facility], [place] [id number] Bird Tender: Shakila Ivey PhD, Phone: [phone] BRUSH-SPATULA CERVIX ENDOCERVIX [facility] ED Note-Physicianon 11-17-19 ED Note-Physician ED Note-Physician Basic Information Opened in error Assessment/Plan Normal [facility] Comment on above: Result Comment: Elec tronically Signed By: Qian Jimenes, Darshan H\.br\Date and Time Signed: 11/15/24 15:23 EST BMPon 11-16-2024 Anion gap [Moles/Vol] 10 mmol/L Normal 6-16 [facility] Comment on above: Performed By: #### 2 [id number] #### [facility] [address] [place] [address] Calcium [Mass/Vol] 9.2 mg/dL Normal 8.9-11.1 [facility] Comment on above: Performed By: #### 2 [id number] #### [facility] [address] [place] [address] Chloride [Moles/Vol] 107 mmol/L Normal 101-111 [facility] Comment on above: Performed By: #### 2 [id number] #### [facility] [address] [place] [address] CO2 [Moles/Vol] 26 mmol/L Normal 21-31 [facility] Comment on above: Performed By: #### 2 [id number] #### [facility] [address] [place] [address] Creatinine [Mass/Vol] 0.7 mg/dL Normal 0.5-1.3 [facility] Comment on above: Performed By: #### 2 [id number] #### [facility] [address] [place] [address] Glucose [Mass/Vol] 105 mg/dL Normal 55-199 [facility] Comment on above: Performed By: #### 2 [id number] #### [facility] [address] [place] [address] Potassium [Moles/Vol] 4.0 mmol/L Normal 3.5-5.3 [facility] Comment on above: Performed By: #### 2 [id number] #### [facility] [address] [place] [address] Sodium [Moles/Vol] 139 mmol/L Normal 135-145 [facility] [facility] Comment on above: Performed By: #### 2 [id number] #### [facility] [address] [place] [address] Urea nitrogen [Mass/Vol] 23 mg/dL High 5-21 [facility] Comment on above: Performed By: #### 2 [id number] #### [facility] [address] [place] [address] Urea nitrogen/Creatinine [Mass ratio] 33 No Units High 10-20 [facility] Comment on above: Performed By: #### 2 [id number] #### [facility] [address] [place] [address] CBC w/ Auto Diffon 5 Basophils/100 WBC (Bld) 0.8 % Normal 0.0-2.0 [facility] Comment on above: Performed By: #### 2 [id number] #### [facility] [address] [place] [address] Basophils/Leukocytes Auto (Bld) [Pure # fraction] 0.1 E9/L Normal 0.0-0.2 [facility] Comment on above: Performed By: #### 2 [id number] #### [facility] [address] [place] [address] Eosinophils (Bld) [#/Vol] 0.1 E9/L Normal 0.0-0.5 [facility] Comment on above: Performed By: #### 2 524115 #### [facility] [address] [place] [address] Eosinophils/100 WBC (Bld) 1.5 % Normal 0.0-8.0 [facility] Comment on above: Performed By: #### 2 099137 #### [facility] [address] [place] [address] Erythrocyte distribution width (RBC) [Ratio] 12.7 % Normal 10.9-14.2 [facility] Comment on above: Performed By: #### 2 454404 #### [facility] [address] [place] [address] Hematocrit (Bld) [Volume fraction] 36.3 % Normal 34.0-46.0 [facility] Comment on above: Performed By: #### 2 948111 #### [facility] [address] [place] [address] Hemoglobin (Bld) [Mass/Vol] 12.4 g/dL Normal 12.0-16.0 [facility] Comment on above: Performed By: #### 2 010004 #### [facility] [address] [place] [address] Lymphocytes (Bld) [#/Vol] 0.9 E9/L Low 1.0-4.0 [facility] Comment on above: Performed By: #### 2 395698 #### [facility] [address] [place] [address] Lymphocytes/100 WBC (Bld) 12.6 % Low 14.0-50.0 [facility] Comment on above: Performed By: #### 2 099119 #### [facility] [address] [place] [address] MCH (RBC) [Entitic mass] 31.5 pg Normal 27.0-34.0 [facility] Comment on above: Performed By: #### 2 670463 #### [facility] [address] [place] [address] MCHC (RBC) [Mass/Vol] 34.1 g/dL Normal 31.4-36.0 [facility] Comment on above: Performed By: #### 2 578955 #### [facility] [address] [place] [address] MCV (RBC) [Entitic vol] 92.4 fL Normal 80.0-100.0 [facility] Comment on above: Performed By: #### 2 997558 #### [facility] [address] [place] [address] Monocytes (Bld) [#/Vol] 0.7 E9/L Normal 0.2-1.0 [facility] Comment on above: Performed By: #### 2 542084 #### [facility] [address] [place] [address] Neutrophils (Bld) [#/Vol] 5.7 E9/L Normal 2.0-7.5 [facility] Comment on above: Performed By: #### 2 314638 #### [facility] [address] [place] [address] Neutrophils/100 WBC (Bld) 76.3 % High 36.0-75.0 [facility] Comment on above: Performed By: #### 2 441077 #### [facility] [address] [place] [address] Platelet mean volume (Bld) [Entitic vol] 8.2 fL Normal 6.4-10.8 [facility] Comment on above: Performed By: #### 2 087990 #### [facility] [address] [place] [address] Platelets (Bld) [#/Vol] 229.0 E9/L Normal 150.0-500. 0 [facility] Comment on above: Performed By: #### 2 626070 #### [facility] [address] [place] [address] RBC (Bld) [#/Vol] 3.9 E12/L Low 4.3-5.9 [facility] Comment on above: Performed By: #### 2 657370 #### [facility] [address] [place] [address] WBC corrected for nucl RBC Auto (Bld) [#/Vol] 7.4 E9/L Normal 4.0-11.0 [facility] Comment on above: Performed By: #### 2 303565 #### [facility] [address] [place] [address] Discharge Note-Nursingon Discharge Note-Nursing Discharge Note-Nursing CHLOE AGARWAL :1955 Visit Date:11/15/2024 Inpatient Discharge Instructions Your Care Team Admitting Physician - Aileen RENEE MD Consulting Physician - [facility] Cardio, XXXX Bryant CANTRELL, Baldomero Reason for Your Visit chest pain Your Diagnosis Chest pain Non-cardiac chest pain HTN (hypertension) Chronic GERD Chest pain Tests Performed Echo Transthoracic Complete XR Chest Single View This Is Your Medications List [facility] Prescription (Adult Blood Pressure Monitor with Large [...] Tablets By Mouth Every day Pickup at [facility] 11/17 @ 9 am Unchanged clonidine [...] GERD 11/16 @ 9 pm Pharmacy Information [facility]: [address] [place], [place] [id number] [phone] Test Results CBC BMP WBC: 7.4 E9/L [...] An injur (more content not included)... Normal [facility] Interdisciplinary Note - Mario e Manageron 11-16-2024 Interdisciplinary Note - Information Tech Interdisciplinary Note - Information Tech CRM to room 315 Patient is awake, alert and oriented. Patient is from home with her Spouse. He is her ride at [place]. Patient verified PCP, DME and insurance. Patient [...] DC if cardiac work up negative Normal [facility] Comment on above: Result Comment: Elec tronically Signed By: Leonila Vasquez\.br\Date and Time Signed: 11/16/24 11:14 EST eGFRon 11-16-2024 eGFR 95 mL/min/1.73 m2 Normal >=59 [facility] Comment on above: Performed By: #### 1 [id number] #### [facility] [address] [place] [address] BMPon 11-15-2024 Anion gap [Moles/Vol] 12 mmol/L Normal 6-16 [facility] Comment on above: Performed By: #### 2 151963 #### [facility] [address] [place] [address] Calcium [Mass/Vol] 9.4 mg/dL Normal 8.9-11.1 [facility] Comment on above: Performed By: #### 2 812232 #### [facility] [address] [place] [address] Chloride [Moles/Vol] 105 mmol/L Normal 101-111 [facility] Comment on above: Performed By: #### 2 685582 #### [facility] [address] [place] [address] CO2 [Moles/Vol] 26 mmol/L Normal 21-31 [facility] Comment on above: Performed By: #### 2 743570 #### [facility] [address] [place] [address] Creatinine [Mass/Vol] 1.0 mg/dL Normal 0.5-1.3 [facility] Comment on above: Performed By: #### 2 628143 #### [facility] [address] [place] [address] Glucose [Mass/Vol] 101 mg/dL Normal 55-199 [facility] Comment on above: Performed By: #### 2 168730 #### [facility] [address] [place] [address] Potassium [Moles/Vol] 3.7 mmol/L Normal 3.5-5.3 [facility] Comment on above: Performed By: #### 2 129636 #### [facility] [address] [place] [address] Sodium [Moles/Vol] 139 mmol/L Normal 135-145 [facility] Comment on above: Performed By: #### 2 058034 #### [facility] [address] [place] [address] Urea nitrogen [Mass/Vol] 27 mg/dL High 5-21 [facility] Comment on above: Performed By: #### 2 162158 #### [facility] [address] [place] [address] Urea nitrogen/Creatinine [Mass ratio] 27 No Units High 10-20 [facility] Comment on above: Performed By: #### 2 920225 #### [facility] [address] [place] [address] CBC w/ Auto Diffon 5 Basophils/100 WBC (Bld) 0.9 % Normal 0.0-2.0 [facility] Comment on above: Performed By: #### 2 061264 #### [facility] [address] [place] [address] Basophils/Leukocytes Auto (Bld) [Pure # fraction] 0.1 E9/L Normal 0.0-0.2 [facility] Comment on above: Performed By: #### 2 503876 #### [facility] [address] [place] [address] Eosinophils (Bld) [#/Vol] 0.1 E9/L Normal 0.0-0.5 [facility] Comment on above: Performed By: #### 2 548686 #### [facility] [address] [place] [address] Eosinophils/100 WBC (Bld) 1.2 % Normal 0.0-8.0 [facility] Comment on above: Performed By: #### 2 182578 #### [facility] [address] [place] [address] Erythrocyte distribution width (RBC) [Ratio] 12.5 % Normal 10.9-14.2 [facility] Comment on above: Performed By: #### 2 686350 #### [facility] [address] [place] [address] Hematocrit (Bld) [Volume fraction] 38.3 % Normal 34.0-46.0 [facility] Comment on above: Performed By: #### 2 885603 #### [facility] [address] [place] [address] Hemoglobin (Bld) [Mass/Vol] 13.2 g/dL Normal 12.0-16.0 [facility] Comment on above: Performed By: #### 2 845779 #### [facility] [address] [place] [address] Lymphocytes (Bld) [#/Vol] 1.3 E9/L Normal 1.0-4.0 [facility] Comment on above: Performed By: #### 2 332260 #### [facility] [address] [place] [address] Lymphocytes/100 WBC (Bld) 14.1 % Normal 14.0-50.0 [facility] Comment on above: Performed By: #### 2 807398 #### [facility] [address] [place] [address] MCH (RBC) [Entitic mass] 31.3 pg Normal 27.0-34.0 [facility] Comment on above: Performed By: #### 2 580715 #### [facility] [address] [place] [address] MCHC (RBC) [Mass/Vol] 34.3 g/dL Normal 31.4-36.0 [facility] Comment on above: Performed By: #### 2 039432 #### [facility] [address] [place] [address] MCV (RBC) [Entitic vol] 91.1 fL Normal 80.0-100.0 [facility] Comment on above: Performed By: #### 2 105847 #### [facility] [address] [place] [address] Monocytes (Bld) [#/Vol] 0.7 E9/L Normal 0.2-1.0 [facility] Comment on above: Performed By: #### 2 955650 #### [facility] [address] [place] [address] Neutrophils (Bld) [#/Vol] 6.8 E9/L Normal 2.0-7.5 [facility] Comment on above: Performed By: #### 2 614413 #### [facility] [address] [place] [address] Neutrophils/100 WBC (Bld) 75.8 % High 36.0-75.0 [facility] Comment on above: Performed By: #### 2 497285 #### [facility] [address] [place] [address] Platelet 259.0 E9/L Normal 150.0-500. 0 [facility] Comment on above: Performed By: #### 2 873812 #### [facility] [address] [place] [address] Platelet mean volume (Bld) [Entitic vol] 7.6 fL Normal 6.4-10.8 [facility] Comment on above: Performed By: #### 2 060377 #### [facility] [address] [place] [address] RBC (Bld) [#/Vol] 4.2 E12/L Low 4.3-5.9 [facility] Comment on above: Performed By: #### 2 541885 #### [facility] [address] [place] [address] WBC corrected for nucl RBC Auto (Bld) [#/Vol] 9.0 E9/L Normal 4.0-11.0 [facility] Comment on above: Performed By: #### 2 015986 #### [facility] [address] [place] [address] D-Dimeron 11-15-2024 Fibrin D-dimer FEU (PPP) [Mass/Vol] 393 [id number] Normal 215-500 [facility] Comment on above: Result Comment: This assay [...] infections Liver cirrhosis Performed By: #### 2 709046 #### [facility] [address] [place] [address] ED Clinical Summaryon 2024 ED Clinical Summary ED Clinical Summary [address] [address] ED Clinical Summary Person Information Name: CHLOE AGARWAL [place] Age: 69 Years : 1955 Sex: Female Language: Tuvaluan PCP: Vick Mcghee MD Marital Status: Visit Id: Visit Reason: Chest pain; CHEST PAIN, UPPER ABD PAIN Speciality: Acuity: 2 Enc Type: Observation Med Service: Medical Arrival: 11/15/2024 13:13:47 Discharge: LOS: 000 03:45 Checkin: 11/15/2024 13:13:47 Checkout: 11/15/2024 16:58:54 Dispo Type: Admitted as IP to this [facility] EVENTS: Event Name Event Status Request Date/Time [...] 16:55:38 Meds Admin Request 11/15/2024 16:55:38 ADDRESS: [place] [id number] [facility] DOC NOTES: MEDICAL INFORMATION: Prescriptions Given: Medications [...] chest pain; 3:HTN (hypertension); 4:Chronic GERD Normal [facility] ED Note-Physicianon 11-15-19 25 ED Note-Physician ED Note-Physician Basic Information Time [...] normal + 1 [x] <= Normal 0 -- [] 0-3 Points 0.9 - 1.7% risk of major adverse cardiac event in 6 weeks [x] 4-6 Points 12-16.6% risk of major adverse cardiac event in 6 weeks [] 7-10 Points 50-65% risk of major adverse cardiac event in 6 weeks -- [] 0-3 Points with 2 sets of negative cardiac markers <1% risk of major adverse cardiac event in 30 days. -- Medical Decision Making MEDICAL DECISION MAKING Number and Complexity of Problems Differential Diagnosis: [] [facility] Data External documents reviewed: [] [...] 81 mg (more content not included)... Normal [facility] Comment on above: Result Comment: Elec tronically Signed By: Darshan Laughlin M.D.\.br\Date and Time Signed: 11/15/24 17:14 EST ED Note-Physician ED Note-Physician Basic Information Opened in error Assessment/Plan Normal [facility] Comment on above: Result Comment: Elec tronically Signed By: Darshan Laughlin M.D.\.br\Date and Time Signed: 11/15/24 15:23 EST ED Patient Education Noteon 11-15-2024 ED Patient Education Note ED Patient Education Note Normal [facility] ED Patient Summaryon 025 ED Patient Summary ED Patient Summary [place] [id number] Patient Discharge Instructions Person Information Name: ANYCHLOE Arlen Age: 69 Years Arrival Date: 11/15/2024 13:13:47 Discharge Diagnosis: 1:Chest pain; 2:Non-cardiac chest pain; 3:HTN (hypertension); 4:Chronic GERD Primary Care Physician: Vick Mcghee MD Provider Information Primary Provider: Darshan Laughlin M.D. Advanced Smasher Hand:None The exam and treatment you received in the Emergency Department were for an urgent problem and are not intended as complete care. It is important that you follow up with a doctor, nurse practitioner, or physician???s assistant casino shift manager for ongoing care. If your symptoms become [...] opioids can be used to help relieve afvovmhe-sy-qofbrv pain and are often prescribed following a [...] guidance from the Food and Drug Administration (www.fda.gov/Drugs/Resources ForYou). ??? Visit www.cdc.gov/drugoverdose to learn about the risks of opioids abuse and overdose. ??? If you believe you may be struggling with addiction, tell your health career development coordinator/teacher and ask for guidance or call [facility]???S National Helpline at 5-237-866-LUPY. r Source: [place] Department (more content not included)... Normal [facility] Lipase Levelon 11-15-2024 Lipase [Catalytic activity/Vol] 43 U/L Normal 13-58 [facility] Comment on above: Performed By: #### 2 [id number] #### [facility] [address] [place] [address] Magnesiumon 11-15-2024 Magnesium [Mass/Vol] 2.0 mg/dL Normal 1.3-2.4 [facility] Comment on above: Performed By: #### 2 817684 #### [facility] [address] [place] [address] PT & PTTon 11-15-2024 aPTT Coag (PPP) [Time] 30.1 second(s) Normal 25.1-36.5 [facility] Comment on above: Result Comment: Para meter [...] the same coagulation reagent and instrumentation as [facility]. Currently there are no coagulation studies available worldwide for children to 14 days, and no normal ranges. Heparin therapeutic range (represented by Anti-Factor Xa activity of 0.2 - 0.4 U/mL) corresponds to PTT of 56.6 - 109.0 sec. Performed By: #### 1 [id number] #### [facility] [address] [place] [address] INR Coag (PPP) [Relative time] 0.98 {INR} Invalid Interpretation Code [facility] Comment on above: Result Comment: INR results are specifically intended to assess patients stabilized on long-term Anticoagulation therapy suggested INR???s ???Less Intensive Anticoagulation??? 2.0 ??? 3.0 Conventional Range 3.0 ??? 4.5 Performed By: #### 1 [id number] #### [facility] [address] [place] [address] PT Coag (PPP) [Time] 11.0 second(s) Normal 9.4-12.5 [facility] Comment on above: Result Comment: 15 d [...] the same coagulation reagent and instrumentation as [facility]. Currently there are no coagulation studies available worldwide for children to 14 days, and no normal ranges. Performed By: #### 1 [id number] #### [facility] [address] [place] [address] Troponin 0 Hr.on 11-15-2024 Troponin HS 4.50 pg/mL Low 10.10-27.1 0 [facility] Comment on above: Result Comment: The 95% CI (Confidence Interval) PPV (Positive Predictive Value) for myocardial infarction in females is 38 pg/mL, in males 51 pg/mL. The results should be used in conjunction with clinical conditions of myocardial infarction. (Access High Sensitivity Troponin I Instructions For Use, [employer], May 2018) Performed By: #### 1 [id number] #### [facility] [address] [place] [address] Troponin 1 Hr.on 11-15-2024 Troponin HS 4.80 pg/mL Low 10.10-27.1 0 [facility] Comment on above: Order Comment: 1441 Result Comment: The 95% CI (Confidence Interval) PPV (Positive Predictive Value) for myocardial infarction in females is 38 pg/mL, in males 51 pg/mL. The results should be used in conjunction with clinical conditions of myocardial infarction. (Access High Sensitivity Troponin I Instructions For Use, [employer], May 2018) Performed By: #### 1 [id number] #### [facility] [address] [place] [address] Troponin 3 Hr.on 11-15-2024 Troponin HS 5.20 pg/mL Low 10.10-27.1 0 [facility] Comment on above: Result Comment: The 95% CI (Confidence Interval) PPV (Positive Predictive Value) for myocardial infarction in females is 38 pg/mL, in males 51 pg/mL. The results should be used in conjunction with clinical conditions of myocardial infarction. (Access High Sensitivity Troponin I Instructions For Use, [employer], May 2018) Performed By: #### 1 [id number] #### [facility] [address] [place] [address] Troponin 6 Hr.on 11-15-2024 Troponin HS 6.30 pg/mL Low 10.10-27.1 0 [facility] Comment on above: Result Comment: The 95% CI (Confidence Interval) PPV (Positive Predictive Value) for myocardial infarction in females is 38 pg/mL, in males 51 pg/mL. The results should be used in conjunction with clinical conditions of myocardial infarction. (Access High Sensitivity Troponin I Instructions For Use, Demetra Jay, May 2018) Performed By: #### 1 [id number] #### [facility] [address] [place] [address] XR Chest Single Viewon 11-15 XR Chest [...] Stephen Baldwin MD Transcribed by: SCOTTY Technologist: Christina LORD [facility] eGFRon 11-15-2024 eGFR 62 mL/min/1.73 m2 Normal >=59 [facility] Comment on above: Performed By: #### 1 [id number] #### [facility] [address] [place] [address] Heart and Vascular Office/Cl inic Noteon 10-05-2024 [...] ventricular systolic pressure is 35 mmHg. [1] LHC with Dr. Douglas on 09/17/2021: CONCLUSIONS: 1. [...] Daily, # 30 tab(s), Refills(s) 2, Pharmacy: [facility], 152, cm, 10/05/24 11:36:00 EST, Height/Length Dosing, 75.8, kg, 10/05/24 11:40:00 EST, Weight Dosing Follow-up with me in 3 months or sooner if needed Portions of this record may have been created with voice recognition artificial intelligence software, specifically [employer], [employer] and or [employer]. Substitutions may have occurred due to the [...] drainage Procedure (more content not included)... Normal [facility] Comment on above: Result Comment: Elec tronically Signed By: Lokesh Mcqueen PA-C\.elmo\Date and Time Signed: 10/05/24 13:02 EST [place] 09-02-2024 L -------- -------- Specimen: [id number] Received: 09/05/24 Status: PANFILOCharity Bowen Num: [id number] Spec Type: Cytology Subm Dr: Ryan Vazquez MD Tissues: A FNA SLIDES NOPATH (RT THYROID) Procedures: Cyto Int and Re, PAPSTN/5 -------- Age/ Patient Sex Location Account Attending Physician -------- Chloe Agarwal 68/F [facility] [id number] NON STAFF -------- SPEC NUM: [id number] RECD: 09/05/24 STATUS: VIRGILIO BOWEN NUM: [id number] MADHAV: 09/02/24- BEE DR: Ryan Vazquez MD ENTERED: 09/05/[address]: Heavenly Thao SPEC TYPE: Cytology DEPT: [facility] ENTERED BY: [id number] RECV BY: [id number] ORDERED: Cyto Int and Re, PAPSTN/5 ORDERED: Cyto Int and Re, PAPSTN/5 Pathological Diagnosis Nodule, right thyroid, fine needle aspiration:? Unsatisfactory for evaluation. Too few epithelial cells. [place]?Category?I Clinical Information US guided FNA Gross Description Received fixed in Cytolyt is 30 ml very pale pink clear fixed fluid for cytology said to have been obtained as Right thyroid nodule mid. ThinPrep preparations are prepared for microscopic examination. Also received are 4 spray fixed smeared slides and a Veracyte vial stored at -20 for microscopic examination. (SD/al) CPT Codes 87265 -------- -------- Specimen: [id number] Received: 09/05/24 Status: VIRGILIO Bowen Num: [id number] Spec Type: Cytology Subm Dr: Ryan Vazquez MD Tissues: A FNA SLIDES NOPATH (RT THYROID) Procedures: Cyto Int and Re, PAPSTN/5 -------- Patient: Chloe Agarwal [id number] (Continued) -------- Signed (signature on file) Rhonda Bauer MD 09/06/24 1815 Normal [facility] CT Spine Lumbar w/ [...] Landon Wilkinson MD Transcribed by: SCOTTY Technologist: DPR Technical Comments GFR (mL/min/1/73m2) >60 Contrast: Isovue 300 Contrast amount in ml's: 0 Normal [facility] Main OR PACU II Recordon Main OR PACU II Record Main OR PACU II Record PACU Phase II Document Type FT Summary Primary Physician: WALE XXXX Finalized Date/Time: 08/19/24 14:04:04 Pt. Name: CHLOE AGARWAL/Sex: 1955 Female Med Rec #: [id number] Physician: [facility] [employer] #: [id number] Pt. Type: O Room/Bed: / Admit/Disch: 08/19/24 [...] By: Monika Sales RN 08/19/24 14:04 Normal [facility] Main OR Preoperative Recordo n 08-19-2024 Main OR Preoperative Record Main OR Preoperative Record Holding Area Document Type FT Summary Primary Physician: NONE, XXXX Finalized Date/Time: 08/19/24 08:06:37 Pt. Name: CHLOE AGARWAL/Sex: 1955 Female Med Rec #: [id number] Physician: [employer] #: [id number] Pt. Type: O Room/Bed: / Admit/Disch: 08/19/24 [...] 08:06 Monika Sales RN 08/19/24 08:06 Normal [facility] XR Myelography Lumbosacralon 08-19-2024 XR Myelography [...] REPORT Dictated: 08/19/2024 11:44 am Landon Wilkinson MD. Signed (Electronic Signature): 08/19/2024 11:44 am Signed by: Landon Wilkinson MD Transcribed by: SCOTTY Technologist: DANIELLE Technical Comments Contrast: Isovue 300 M Radiation Dose: Ka,r in mGy = 43.30 DAP = 869.87 Normal [facility] Heart and Vascular Office/Cl inic Noteon 07-16-2024 [...] with voice recognition artificial intelligence software, specifically [employer], [employer] and or [employer]. Substitutions may have occurred due to the inherent limitations of voice recognition and artificial intelligence software. ATTESTATION: Documentation services were performed after patient or guardian consented to allow [employer] to record this visit. ASHLEIGH electronic security specialist and provider reviewed before signing. ASHLEIGH: Malinda Sands Follow-up No qualifying data available Problem List/Past Medical History Ongoing BMI 34.0-34.9,adult Chest pain due to GERD Chronic GERD Duodenogastric bile reflux Dysphagia Epigastric pain Gastritis H/O: osteoarthritis Hiatal hernia with gastroesophag (more content not included)... Normal [facility] Comment on above: Result Comment: Elec tronically Signed By: Vincent CANTRELL, Willie Tovar\.br\Date and Time Signed: 07/16/24 07:52 EDT\.br\Electronically Co-Signed By: Nanette Rodrigues\.br\Date and Time Co-Signed: 07/13/24 17:16 EDT XR Spine Lumbar Complete [facility] 07-11-2024 XR Spine Lumbar Complete Including [...] mGy = na DAP = na Normal [facility] C Urineon 05-10-2024 Bacteria identified Cx [...] Locations R1: This test was performed at: [facility], [address] [place] [address], [employer]- , , [facility] Comment on above: Performed By: #### 2 [id number] #### [facility] [address] [place] [address] BB Draw & Holdon 05-08-2024 BB D&H Sample drawn for Blood Ba Normal [facility] Comment on above: Performed By: #### 1 [id number] #### [facility] [address] [place] [address] CBC w/ Auto Diffon 4 Basophils/100 WBC (Bld) 1.1 % Normal 0.0-2.0 [facility] Comment on above: Performed By: #### 2 [id number] #### [facility] [address] [place] [address] Basophils/Leukocytes Auto (Bld) [Pure # fraction] 0.1 E9/L Normal 0.0-0.2 [facility] Comment on above: Performed By: #### 2 [id number] #### [facility] [address] [place] [address] Eosinophils (Bld) [#/Vol] 0.1 E9/L Normal 0.0-0.5 [facility] Comment on above: Performed By: #### 2 [id number] #### [facility] [address] [place] [address] Eosinophils/100 WBC (Bld) 1.6 % Normal 0.0-8.0 [facility] Comment on above: Performed By: #### 2 [id number] #### [facility] [address] [place] [address] Erythrocyte distribution width (RBC) [Ratio] 14.1 % Normal 10.9-14.2 [facility] Comment on above: Performed By: #### 2 [id number] #### [facility] [address] [place] [address] Hematocrit (Bld) [Volume fraction] 38.2 % Normal 34.0-46.0 [facility] Comment on above: Performed By: #### 2 [id number] #### [facility] [address] [place] [address] Hemoglobin (Bld) [Mass/Vol] 13.9 g/dL Normal 12.0-16.0 [facility] Comment on above: Performed By: #### 2 [id number] #### [facility] [address] [place] [address] Lymphocytes (Bld) [#/Vol] 2.3 E9/L Normal 1.0-4.0 [facility] Comment on above: Performed By: #### 2 [id number] #### [facility] [address] [place] [address] Lymphocytes/100 WBC (Bld) 26.4 % Normal 14.0-50.0 [facility] Comment on above: Performed By: #### 2 [id number] #### [facility] [address] [place] [address] MCH (RBC) [Entitic mass] 32.6 pg Normal 27.0-34.0 [facility] Comment on above: Performed By: #### 2 [id number] #### [facility] [address] [place] [address] MCHC (RBC) [Mass/Vol] 36.3 g/dL High 31.4-36.0 [facility] Comment on above: Performed By: #### 2 [id number] #### [facility] [address] [place] [address] MCV (RBC) [Entitic vol] 89.9 fL Normal 80.0-100.0 [facility] Comment on above: Performed By: #### 2 [id number] #### [facility] [address] [place] [address] Monocytes (Bld) [#/Vol] 0.8 E9/L Normal 0.2-1.0 [facility] Comment on above: Performed By: #### 2 [id number] #### [facility] [address] [place] [address] Neutrophils (Bld) [#/Vol] 5.3 E9/L Normal 2.0-7.5 [facility] Comment on above: Performed By: #### 2 [id number] #### [facility] [address] [place] [address] Neutrophils/100 WBC (Bld) 61.6 % Normal 36.0-75.0 [facility] Comment on above: Performed By: #### 2 [id number] #### [facility] [address] [place] [address] Platelet 299.0 E9/L Normal 150.0-500. 0 [facility] Comment on above: Performed By: #### 2 [id number] #### [facility] [address] [place] [address] Platelet mean volume (Bld) [Entitic vol] 8.0 fL Normal 6.4-10.8 [facility] Comment on above: Performed By: #### 2 [id number] #### [facility] [address] [place] [address] RBC (Bld) [#/Vol] 4.3 E12/L Normal 4.3-5.9 [facility] Comment on above: Performed By: #### 2 [id number] #### [facility] [address] [place] [address] WBC corrected for nucl RBC Auto (Bld) [#/Vol] 8.6 E9/L Normal 4.0-11.0 [facility] Comment on above: Performed By: #### 2 [id number] #### [facility] [address] [place] [address] CHEMISTRYOrdered By: SYSTEM SYSTEM on 05-08-2024 Albumin [...] Bilirubin [Mass/Vol] 1.1 mg/dL Normal 0.0 - 1 .1 mg/dL Remisol Chem Calcium [Mass/Vol] 9.9 mg/dL Normal 8.9 - 11. 1 mg/dL Rem[facility] Chem Chloride [Moles/Vol] 103 mmol/L Normal 101 - 1 11 mmol/L Remisol Chem CO2 [Moles/Vol] 26 mmol/L [...] Magnesium [Mass/Vol] 2.2 mg/dL Normal 1.3 - 2 .4 mg/dL Remisol Chem Potassium [Moles/Vol] 3.7 mmol/L [...] Sensitivity Troponin I Instructions For Use, Demetra [place], May 2018) Urea nitrogen [Mass/Vol] 22 mg/dL High 5 - 21 mg/dL Remisol Chem Urea nitrogen/Creatinine [Mass ratio] 28 mg/mg High 10 - 20 Remisol Chem CHEMISTRYOrdered By: Lab ROP User on 05-08-2024 Glucose [Mass/Vol] 111 mg/dL High 55 - 99 mg/dL [facility] POC Subsection Comment on above: Result Comment: Ovidio medrano RN/ POC Device SN [id number] Invalid Interpretation Code [facility] POC Subsection POC User ID [id number] Invalid Interpretation Code [facility] POC Subsection POC Username CLAUS FRAZIER Invalid Interpretation Code [facility] POC Subsection CMPon 05-08-2024 Albumin [Mass/Vol] 4.4 g/dL Normal 3.3-5.0 [facility] Comment on above: Performed By: #### 2 [id number] #### [facility] [address] [place] [address] Albumin/Globulin (S) [Mass conc ratio] 1.5 Normal 1.1-2.2 [facility] Comment on above: Performed By: #### 2 [id number] #### [facility] [address] [place] [address] ALP [Catalytic activity/Vol] 59 Int._Unit/L Normal 21-98 [facility] Comment on above: Performed By: #### 2 [id number] #### [facility] [address] [place] [address] ALT No additional P-5'-P [Catalytic activity/Vol] 18 Int._Unit/L Normal 6-46 [facility] Comment on above: Performed By: #### 2 [id number] #### [facility] [address] [place] [address] Anion gap [Moles/Vol] 14 mmol/L Normal 6-16 [facility] Comment on above: Performed By: #### 2 [id number] #### [facility] [address] [place] [address] AST [Catalytic activity/Vol] 18 Int._Unit/L Normal 5-43 [facility] Comment on above: Performed By: #### 2 [id number] #### [facility] [address] [place] [address] Bilirubin [Mass/Vol] 1.1 mg/dL Normal 0.0-1.1 [facility] Comment on above: Performed By: #### 2 [id number] #### [facility] [address] [place] [address] Calcium [Mass/Vol] 9.9 mg/dL Normal 8.9-11.1 [facility] Comment on above: Performed By: #### 2 761871 #### [facility] [address] [place] [address] Chloride [Moles/Vol] 103 mmol/L Normal 101-111 [facility] Comment on above: Performed By: #### 2 025586 #### [facility] [address] [place] [address] CO2 [Moles/Vol] 26 mmol/L Normal 21-31 [facility] Comment on above: Performed By: #### 2 [id number] #### [facility] [address] [place] [address] Creatinine [Mass/Vol] 0.8 mg/dL Normal 0.5-1.3 [facility] Comment on above: Performed By: #### 2 630746 #### [facility] [address] [place] [address] Globulin (S) [Mass/Vol] 2.9 g/dL Normal 1.4-4.0 [facility] Comment on above: Performed By: #### 2 [id number] #### [facility] [address] [place] [address] Glucose [Mass/Vol] 112 mg/dL Normal 55-199 [facility] Comment on above: Performed By: #### 2 734905 #### [facility] [address] [place] [address] Potassium [Moles/Vol] 3.7 mmol/L Normal 3.5-5.3 [facility] Comment on above: Performed By: #### 2 043256 #### [facility] [address] [place] [address] Protein [Mass/Vol] 7.3 g/dL Normal 6.0-7.8 [facility] Comment on above: Performed By: #### 2 [id number] #### [facility] [address] [place] [address] Sodium [Moles/Vol] 139 mmol/L Normal 135-145 [facility] Comment on above: Performed By: #### 2 [id number] #### [facility] [address] [place] [address] Urea nitrogen [Mass/Vol] 22 mg/dL High 5-21 [facility] Comment on above: Performed By: #### 2 465598 #### [facility] [address] [place] [address] Urea nitrogen/Creatinine [Mass ratio] 28 No Units High 10-20 [facility] Comment on above: Performed By: #### 2 [id number] #### [facility] [address] [place] [address] COAGULATIONOrdered By: Yissel Amos on 05-08-2024 aPTT Coag (PPP) [Time] 30.0 s Normal 25.1 - 36.5 second(s) [facility] Auto Coag Comment on above: Interpretive Data: [...] the same coagulation reagent and instrumentation as [facility]. Currently there are no coagulation studies available worldwide for children to 14 days, and no normal ranges. Heparin therapeutic range (represented by Anti-Factor Xa activity of 0.2 - 0.4 U/mL) corresponds to PTT of 56.6 - 109.0 sec. INR Coag (PPP) [Relative time] 0.97 {INR} Invalid Interpretation Code [facility] Auto Coag Comment on above: Interpretive Data: I NR results are specifically intended to assess patients stabilized on long-term Anticoagulation therapy suggested INR s Less Intensive Anticoagulation 2.0 3.0 Conventional Range 3.0 4.5 PT Coag (PPP) [Time] 10.9 s Normal 9.4 - 1 2.5 second(s) [facility] Auto Coag Comment on above: Interpretive Data: [...] the same coagulation reagent and instrumentation as [facility]. Currently there are no coagulation studies available [...] MD Transcribed by: SCOTTY Technologist: IVY Normal [facility] Capillary Glucose POCon 04-19 Glucose [Mass/Vol] 111 mg/dL High 55-99 [facility] Comment on above: Result Comment: Ovidio medrano RN/ Performed By: #### 2 [id number] #### [facility] [address] [place] [address] ED Clinical Summaryon 2023 ED Clinical Summary ED Clinical Summary [address] [address] ED Clinical Summary Person Information Name: CHLOE AGARWAL [place] Age: 68 Years : 1955 Sex: Female Language: Tuvaluan PCP: Vick Mcghee MD Marital Status: Visit [...] 09:45:49 05/08/2024 09:45:49 05/08/2024 09:45:49 [address]: [address] [id number] PHYS DOC NOTES: MEDICAL INFORMATION: Prescriptions Given: New Medications [employer], [address] [place], [place] [id number], [phone] cephalexin (Keflex 500 mg Cap) 1 Capsules [...] Follow up: With: Address: When: Vick Mcghee [address] [place] [address], [facility] [place] [id number] [facility] (1) In 3 days 05/11/2024 Comments: Call the office of your primary care doctor to arrange for follow-up within the above-stated timeframe. Follow-up with your primary care doctor about this ED visit. You should rev (more content not included)... Normal [facility] ED Note-Physicianon 05-08-20 ED Note-Physician ED Note-Physician [...] under a lot of stress as her soieou-fe-nyf just and she has a to attend [...] malignant neopla (more content not included)... Normal [facility] Comment on above: Result Comment: Elec tronically Signed By: Nelson Solares DO\.br\Date and Time Signed: 05/08/24 11:48 EDT ED Patient Summaryon 024 ED Patient Summary ED Patient Summary [place] [id number] Patient Discharge Instructions Person Information Name: CHLOE AGARWAL Age: 68 Years Arrival Date: 05/08/2024 07:15:15 Discharge Diagnosis: Acute UTI; Vertigo Primary Care Physician: Vick Mcghee MD Provider Information Primary Provider: Nelson Solares DO Advanced Smasher Hand:None The exam and treatment you received in the Emergency Department were for an urgent problem and are not intended as complete care. It is important that you follow up with a doctor, nurse practitioner, or physician?s assistant casino shift manager for ongoing care. If your symptoms become worse or you do not improve as expected and you are unable to reach your usual health care provider, you should return to the Emergency Department. We are available 24 hours a day. CHLOE AGARWAL has been given the following list of patient education materials, prescriptions and follow-up instructions: Follow-up Instructions: With: Address: When: Vick Nathalie [address] [place] [address], [facility] [place] [address] Business (1) In 3 days [...] opioids can be used to help relieve iejwznmt-tn-urbwtz pain and are often prescribed following a [...] opioids in (more content not included)... Normal [facility] HEMATOLOGYOrdered By: SYSTEM SYSTEM on 05-08-2024 Basophils/100 WBC (Bld) 1.1 % Normal 0.0 - 2.0 % Remisol Heme Basophils/Leukocytes Auto (Bld) [Pure # fraction] 0.1 [...] 05-08-2024 Magnesium [Mass/Vol] 2.2 mg/dL Normal 1.3-2.4 [facility] Comment on above: Performed By: #### 2 [id number] #### [facility] [address] [place] [address] PT & PTTon 05-08-2024 aPTT Coag (PPP) [Time] 30.0 second(s) Normal 25.1-36.5 [facility] Comment on above: Result Comment: Para meter [...] the same coagulation reagent and instrumentation as [facility]. Currently there are no coagulation studies available worldwide for children to 14 days, and no normal ranges. Heparin therapeutic range (represented by Anti-Factor Xa activity of 0.2 - 0.4 U/mL) corresponds to PTT of 56.6 - 109.0 sec. Performed By: #### 1 [id number] #### [facility] [address] [place] [address] INR Coag (PPP) [Relative time] 0.97 {INR} Invalid Interpretation Code [facility] Comment on above: Result Comment: INR results are specifically intended to assess patients stabilized on long-term Anticoagulation therapy suggested INR?s ?Less Intensive Anticoagulation? 2.0 ? 3.0 Conventional Range 3.0 ? 4.5 Performed By: #### 1 [id number] #### [facility] [address] [place] [address] PT Coag (PPP) [Time] 10.9 second(s) Normal 9.4-12.5 [facility] Comment on above: Result Comment: 15 d [...] the same coagulation reagent and instrumentation as [facility]. Currently there are no coagulation studies available worldwide for children to 14 days, and no normal ranges. Performed By: #### 1 [id number] #### [facility] [address] [place] [address] Troponin 0 Hr.on 05-08-2024 Troponin HS 6.20 pg/mL Low 10.10-27.1 0 [facility] Comment on above: Result Comment: The 95% CI (Confidence Interval) PPV (Positive Predictive Value) for myocardial infarction in females is 38 pg/mL, in males 51 pg/mL. The results should be used in conjunction with clinical conditions of myocardial infarction. (Access High Sensitivity Troponin I Instructions For Use, Demetra [place], May 2018) Performed By: #### 1 [id number] #### [facility] [address] [place] [address] UA with Cult Rflxon 05-08-20 24 Bacteria Auto Ql (U) Trace Normal Trace Fish [facility] Comment on above: Performed By: #### 4 [id number] #### [facility] [address] [place] [address] Bilirubin Ql (U) Negative Normal Negative [facility] Comment on above: Performed By: #### 4 [id number] #### [facility] [address] [place] [address] Clarity (U) Clear Normal Clear [facility] Comment on above: Performed By: #### 4 [id number] #### [facility] [address] [place] [address] Color (U) Colorless Abnormal Yellow [facility] Comment on above: Result Comment: Micr oscopic readings are only performed on those samples that meet specific criteria set forth by [facility]. Performed By: #### 4 [id number] #### [facility] [address] [place] [address] Epithelial cells.squamous Auto (Urine sed) [#/Area] 0-2 Invalid Interpretation Code [facility] Comment on above: Performed By: #### 4 [id number] #### [facility] [address] [place] [address] Glucose Ql (U) Negative Normal Negative [facility] Comment on above: Performed By: #### 4 [id number] #### [facility] [address] [place] [address] Hemoglobin Auto test strip (U) [Mass/Vol] Negative Normal Negative [facility] Comment on above: Performed By: #### 4 [id number] #### [facility] [address] [place] [address] Ketones Auto test strip Ql (U) Negative Normal Negative [facility] Comment on above: Performed By: #### 4 [id number] #### [facility] [address] [place] [address] Leukocyte esterase Auto test strip Ql (U) 250 Danielle/uL Abnormal Negative [facility] Comment on above: Performed By: #### 4 [id number] #### [facility] [address] [place] [address] Mucus Auto Ql (U) Negative Normal Negative [facility] Comment on above: Performed By: #### 4 [id number] #### [facility] [address] [place] [address] Nitrite Auto test strip Ql (U) Negative Normal Negative [facility] Comment on above: Performed By: #### 4 [id number] #### [facility] [address] [place] [address] pH (U) 7.0 [pH] Invalid Interpretation Code 5.0-9.0 [facility] Comment on above: Performed By: #### 4 [id number] #### [facility] [address] [place] [address] Protein Ql (U) Negative Normal Negative [facility] Comment on above: Performed By: #### 4 [id number] #### [facility] [address] [place] [address] RBC Ql (U) 0-3 Normal 0-3 [facility] Comment on above: Performed By: #### 4 [id number] #### [facility] [address] [place] [address] Specific gravity (U) [Rel density] 1.008 Invalid Interpretation Code 1.005-1.03 0 [facility] Comment on above: Performed By: #### 4 [id number] #### [facility] [address] [place] [address] Urobilinogen (U) [Mass/Vol] Negative Normal Negative [facility] Comment on above: Performed By: #### 4 [id number] #### [facility] [address] [place] [address] WBC Auto (Urine sed) [#/Area] 6-15 Abnormal 0-5 [facility] Comment on above: Performed By: #### 4 [id number] #### [facility] [address] [place] [address] Type of Urine collection method Clean Catch Normal [facility] Comment on above: Performed By: #### 4 [id number] #### [facility] [address] [place] [address] URINALYSISOrdered By: SYSTEM SYSTEM on 05-08-2024 Bacteria Auto Ql (U) Trace /HPF Normal Trace/HPF FT UA Auto SS Bilirubin Ql (U) Negative Normal Negativemg /dL [facility] UA Auto SS Clarity (U) Clear (05/08/24 8:05 AM) Normal Clear [facility] UA Auto SS Color (U) Colorless 1 *ABN* (05/08/24 8:05 AM) Invalid Interpretation Code Yellow [facility] UA Auto SS Comment on above: Interpretive Data: M icroscopic readings are only performed on those samples that meet specific criteria set forth by [facility]. Epithelial cells.squamous Auto (Urine sed) [#/Area] [...] Urobilinogen (U) [Mass/Vol] Negative Normal Negativemg /dL [facility] UA Auto SS WBC Auto (Urine sed) [#/Area] 6-15 graded/HPF Invalid Interpretation Code 0-5graded/ HPF [facility] UA Auto SS URINALYSISOrdered By: Nelson Solares on 05-08-2024 UA Spec Desc Clean Catch (05/08/24 8:05 AM) Normal [facility] UA Auto SS Work Phone: XR Chest [...] mGy = . DAP = . Normal [facility] eGFRon 05-08-2024 eGFR 81 mL/min/1.73 m2 Normal >=59 [facility] Comment on above: Order Comment: Order added by Discern Expert. Performed By: #### 1 [id number] #### [facility] [address] [place] [address] Heart and Vascular Office/Cl inic Noteon 01-17-2024 [...] She had blood work done by her charge authorizer at [facility]. Her cholesterol was low. She has been [...] before bed. I will obtain labs from [facility] to make sure she does not have abnormal electrolytes. 3. Sleep apnea. I will check with Dr. Husain regarding CPAP. Follow-up The patient will follow up in 6 months. Portions of this record may have been created with voice recognition artificial intelligence software, specifically [employer], [employer] and or [employer]. Substitutions may have occurred due to the inherent limitations of voice recognition and artificial intelligence software. ATTESTATION: Documentation services were performed after patient or guardian consented to allow [facility] to record this visit. ASHLEIGH electronic security specialist and provider reviewed before signing. ASHLEIGH: Florinda Maguire. Follow-up No qualifying data available Problem List/Past Medical History Ongoing BMI 34.0-34.9,adult Chest pain due to GERD Chronic GERD Duodenogastric bile reflux Dysphagia Epigastric pain Gastritis H/O: osteoarthritis Hiatal hernia with gastroesophageal reflux HTN (hypertension) Osteoporosis Regurgitation of stomach contents Screenin (more content not included)... [facility] Comment on above: Result Comment: Elec tronically Signed By: Vincent CANTRELL, Willie Tovar\.br\Date and Time Signed: 01/17/24 10:22 EDT\.br\Electronically Co-Signed By: Florinda Maguire\.br\Date and Time Co-Signed: 12/18/23 16:08 EST Outside [facility] 12-21-2023 Outside Labs [id number]#1.00TIFF [facility] Physician Orderon 12-21-2023 Physician Order [id number]#1.00TIFF [facility] Ambulatory Visit Summaryon 0 3--2024 Ambulatory Visit Summary CHLOE AGARWAL :1955 Visit Date:12/18/2023 Ambulatory Visit Instructions Your Care Team Attending Physician - Vincent CANTRELL, Willie Tovar Primary Care Physician - Nathalie CANTRELL, Vick Referring Physician - NONE, XXXX This Is Your Medications List [facility] Prescription (Adult Blood Pressure Monitor with Large [...] Tablets By Mouth At bedtime Pickup at [facility] Unchanged meloxicam (meloxicam 15 mg Tab) 1 Tablets By Mouth Every day Unchanged metoprolol (metoprolol 50 mg ER Tab) 2 Tablets By Mouth Every day Unchanged [facility] Prescription (Adult Blood Pressure Monitor with Large [...] Mouth 2 times a day Pharmacy Information [facility]: [address] [place], [place] [id number] [phone] Allergies gabapentin (Headache) lisinopril (Coughing) sulfa drugs [...] for choosing us for your care. Normal [facility] ALL THYROXINE (T4) FREEon Free T4 [Mass/Vol] 1.30 ng/dL 0.76 - 1.46 ng/dL [facility] ALL LIPID PROFILE (FASTING)o n 11-30-2023 CHOL HDL RATIO 3.0 [facility] Comment on above: 3.3 - 4.4 LOW RISK 4.4 - 7.1 AVERAGE RISK 7.1 - 11.0 MODERATE RISK >11.0 HIGH RISK Cholesterol [Mass/Vol] 177 mg/dL NINF - 200 mg/dL [facility] Cholesterol in HDL [Mass/Vol] 59 mg/dL 40 - 60 mg/dL [facility] Comment on above: > or =60 mg/dl - LOW CARDIOVASCULAR RISK <40 mg/dl - HIGH CARDIOVASCULAR RISK Magnesium [Mass/Vol] 96.8 mg/dL [facility] Comment on above: <100 mg/dl OPTIMAL 100-129 mg/dl NEAR OR ABOVE OPTIMAL 130-159 mg/dl BORDERLINE HIGH 160-189 mg/dl HIGH >190 mg/dl VERY HIGH Magnesium [Mass/Vol] 21.2 mg/dL [facility] Triglyceride [Mass/Vol] 106 mg/dL NINF - 150 mg/dL [facility] ALL THYROID STIM HORMONEon 0 11-30-2023 TSH Qn 0.028 m[IU]/L Low [facility] CMP (CMP) (FOR REMOTE FH C USE)on 11-30-2023 Albumin [Mass/Vol] 3.6 g/dL 3.4 - 5.0 g/dL [facility] ALBUMIN GLOBULIN RATIO 1.0 [facility] ALP [Catalytic activity/Vol] 62 U/L 46 - 116 U/L [facility] ALT [Catalytic activity/Vol] 23 U/L 14 - 59 U/L [facility] Anion gap [Moles/Vol] 12.6 mmol/L [facility] AST [Catalytic activity/Vol] 17 U/L 15 - 37 U/L [facility] Bilirubin [Mass/Vol] 1.2 mg/dL High 0.2 - 1 .0 mg/dL [facility] Calcium [Mass/Vol] 9.1 mg/dL 8.5 - 10. 1 mg/dL [facility] Chloride [Moles/Vol] 102 mmol/L 98 - 10 7 mmol/L [facility] CO2 [Moles/Vol] 30.4 mmol/L 21.0 - 32.0 mmol/L [facility] Creatinine [Mass/Vol] 0.99 mg/dL 0.55 - 1.02 mg/dL [facility] GFR/1.73 sq M.predicted CKD-EPI (S/P/Bld) [Vol rate/Area] >60 60 - PINF [facility] Globulin (S) [Mass/Vol] 3.6 g/dL [facility] Glucose [Mass/Vol] 110 mg/dL High 74 - 106 mg/dL [facility] Potassium [Moles/Vol] 4.0 mmol/L 3.5 - 5.1 mmol/L [facility] Protein [Mass/Vol] 7.2 g/dL 6.4 - 8.2 g/dL [facility] Sodium [Moles/Vol] 141 mmol/L 136 - 145 mmol/L [facility] TBH EGFR-NON AF ECUADOREAN 56 Low 60 - PINF [facility] Urea nitrogen [Mass/Vol] 31.0 mg/dL High 7.0 - 18.0 mg/dL [facility] Urea nitrogen/Creatinine [Mass ratio] 31.3 mg/mg [facility] IGP,APTIMA HPV,AGE GDLNon AGE GDLN ACOG TESTING Note . [facility] Comment on above: TESTS RESULT FLAG U NITS REF RANGE LAB Clinician Provided Cytology Information Source.............Cervix;Endocervix No. of containers..01 ThinPrep Vial Age Algo ACOG Adamaris... Note 01 <21 or >65 or no age provided FLAG LEGEND: L-Low Normal,H-High Normal,LL-Alert Low,HH-Alert High <-Panic Low,>-Panic High,A-Abnormal,AA-Critical Abnormal Performed at: 01 =G [facility] [address] [address] Adelina Nunez MD, PAP IG (IMAGE GUIDED) Note . [facility] Comment on above: TESTS RESULT FLAG UN ITS REF RANGE LAB DIAGNOSIS: 02 NEGATIVE FOR INTRAEPITHELIAL LESION OR MALIGNANCY. Specimen adequacy: 02 Satisfactory for evaluation. Endocervical and/or squamous metaplastic cells (endocervical component) are present. Performed by: 02 Vicky Madsen, Buildings And Grounds Supervisor ([facility]) . 02 Note: Note 02 The Pap smear is a screening test designed to aid in the detection of premalignant and malignant conditions of the uterine cervix. It is not a diagnostic procedure and should not be used as the sole means of detecting cervical cancer. Both false-positive and false-negative reports do occur. Test Methodology: Note 02 The WinProbe(R) Wireworker was unable to read this specimen. Therefore a manual review was performed. FLAG LEGEND: L-Low Normal,H-High Normal,LL-Alert Low,HH-Alert High <-Panic Low,>-Panic High,A-Abnormal,AA-Critical Abnormal Performed at: 02 WB [facility] [address] [place] [address] Adelina Nunez MD, Performed at: =G - [facility] [address] [id number] Bird Tender: Adelina Nunez MD, Phone: [phone] Performed at: [facility] [id number] Bird Tender: Adelina Nunez MD, Phone: [phone] BRUSH-SPATULA CERVIX ENDOCERVIX [facility] No Panel Informationon 11-30 Interpretation and review of laboratory results Abnormal [facility] Consent for Treatmenton Consent for Treatment [id number]#1.00TIFF Normal [facility] Consultation Noteon 11-20-19 24 Consultation Note Patient: [...] QID, # 120 tab(s), Refills(s) 3, Pharmacy: [facility], 152, cm, 04/03/23 9:20:00 EDT, Height/Length Dosing, 80, kg, 04/03/23 9:20:00 EDT, Weight Dosing Protonix 40 mg Tab-DR: 40 mg = 1 tab(s), Oral, BID, # 120 tab(s), Refills(s) 0, Pharmacy: [facility], 152.4, cm, 04/01/21 7:20:00 EDT, Height/Length Dosing, 85.5, kg, 04/01/21 7:20:00 EDT, Weight Dosing hydrochlorothiazide 12.5 mg Cap: 12.5 mg = 1 cap(s), Oral, Daily, # 30 cap(s), Refills(s) 6, Pharmacy: [facility], 152, cm, 11/17/23 11:29:00 EST, Height/Length Dosing, 79.6, kg, 11/17/23 11:29:00 EST, Weight Dosing losartan 100 mg Tab: 100 mg = 1 tab(s), Oral, Bedtime, # 90 tab(s), Refills(s) 1, Pharmacy: [facility], 152, cm, 07/14/23 9:26:00 EDT, Height/Length Dosing, 76.9, kg, 07/14/23 9:26:00 EDT, Weight Dosing pregabalin 25 mg Cap: 25 mg = 1 cap(s), Oral, BID, start with once a day for 3-5 days. If doing well can go to BID, # 60 cap(s), Refills(s) 0, Pharmacy: [facility], 152, cm, 10/26/23 13:07:00 EST, Height/Length [...] All Problems Chronic GERD / SNOMED CT 249828790 / Confirmed Unilateral primary osteoarthritis, right knee / SNOMED CT 1479266476 / Confirmed Gastritis / SNOMED CT 5828467 / Confirmed Vertigo / SNOMED CT 7058729811 / Confirmed BMI 34.0-34.9,adult / SNOMED CT 472408061 / Confirmed Regurgitation of stomach contents / SNOMED CT 023798389 / Confirmed Osteoporosis / SNOMED CT 364385016 / Confirmed HTN (hypertension) / SNOMED CT 0573180587 / Confirmed Dysphagia / SNOMED CT 98565160 / Confirmed Epigastric pain / SNOMED CT 593824066 / Confirmed Chest pain due to GERD / SNOMED CT 79074043 / Confirmed Screening for malignant neoplasm of colon / SNOMED CT 443417080 / Confirmed H/O: osteoarthritis / SNOMED CT 267719567 / Confirmed Hiatal hernia with gastroesophageal reflux / SNOMED CT 8192695193 / Confirmed Duodenogastric bile reflux / SNOMED CT 86524056 / Confirmed Sigmoid diverticulosis / SNOMED CT 6810633404 / Confirmed Tendonitis / SNOMED CT 42127261 / Confirmed Resolved: GERD - Gastro-esophageal reflux disease / SNOMED CT 9460793943 Resolved: Appendicitis / SNOMED CT 018589860 Resolved: Cough / SNOMED CT 18451413 Resolved: Sinus drainage / SNOMED CT 699761923 Canceled: GERD with apnea / SNOMED CT 5253180078 Objective Vital Signs 11/20/2023 13:11 EST Peripheral [...] extremity streng (more content not included)... Normal [facility] Comment on above: Result Comment: Elec tronically Signed By: Anna GAMEZ, Vicky\.elmo\Date and Time Signed: 11/20/23 13:40 EST Office/Clinic Note-Physician on 11-20-2023 Office/Clinic Note-Physician [id number]#1.00TIFF Normal [facility] Patient Correspondenceon Patient Correspondence [id number]#1.00TIFF [facility] Consent for Treatmenton 10-21 Consent for Treatment [id number]#1.00TIFF Normal [facility] Heart and Vascular Office/Cl inic Noteon 11-17-2023 Heart and Vascular Office/Clinic Note History of Present Illness Patient is a very pleasant 68-year-old hypertensive female, nondiabetic, non-smoker, referred to our office after she went to the emergency room on 09/02/2021 with abdominal pain radiating into her back. She reportedly had a stress test, echocardiogram and Holter monitor at [facility] prior to her ER visit on 09/02/2021. Troponins were negative x1, and she was assigned a heart score of 4 and discharged home. In addition the patient apparently had a syncopal episode several weeks prior to her presentation, but cannot recall whether she had any chest pain prior to her syncope.. Her echocardiogram done at [place] on 08/20/2021 which showed left ventricular systolic [...] took place at an outside facility at [place] on 09/03/2021 which was read as normal. [...] In addition she has a brother in [place] who apparently has coronary disease the specific [...] concerning lesion (more content not included)... Normal [facility] Comment on above: Result Comment: Elec tronically Signed By: MISAEL CANTRELL, Landon Mckinley\.elmo\Date and Time Signed: 11/17/23 11:44 EST Physician Orderon 11-17-2023 Physician Order [id number]#1.00TIFF Normal [facility] XR Pelvis 1 or 2 [facility] [...] tissues appear within normal limits. Ordering Provider: Vikcy Castillo FINAL REPORT Dictated: 10/27/2023 1:01 pm Nico Rogers DO Signed (Electronic Signature): 10/27/2023 1:01 pm Signed by: Nico Rogers DO Transcribed by: SCOTTY Technologist: DANIELLE Technical Comments Radiation Dose: Ka,r in mGy = na DAP = na Normal [facility] XR Spine Lumbosacral 2 or 3 [...] mGy = na DAP = na Normal [facility] Consent for Treatmenton Consent for Treatment [id number]#1.00TIFF [facility] Consent for Treatment [id number]#1.00TIFF [facility] Consultation Noteon 10-26-19 Consultation Note [...] QID, # 120 tab(s), Refills(s) 3, Pharmacy: [facility], 152, cm, 04/03/23 9:20:00 EDT, Height/Length Dosing, 80, kg, 04/03/23 9:20:00 EDT, Weight Dosing Protonix 40 mg Tab-DR: 40 mg = 1 tab(s), Oral, BID, # 120 tab(s), Refills(s) 0, Pharmacy: [facility], 152.4, cm, 04/01/21 7:20:00 EDT, Height/Length Dosing, 85.5, kg, 04/01/21 7:20:00 EDT, Weight Dosing losartan 100 mg Tab: 100 mg = 1 tab(s), Oral, Bedtime, # 90 tab(s), Refills(s) 1, Pharmacy: [facility], 152, cm, 07/14/23 9:26:00 EDT, Height/Length Dosing, 76.9, kg, 07/14/23 9:26:00 EDT, Weight Dosing metoprolol 50 mg ER Tab: 50 mg = 1 tab(s), Oral, Daily, # 90 tab(s), Refills(s) 1, Pharmacy: [facility], 152, cm, 07/14/23 9:26:00 EDT, Height/Length Dosing, 76.9, kg, 07/14/23 9:26:00 EDT, Weight Dosing pregabalin 25 mg Cap: 25 mg = 1 cap(s), Oral, BID, start with once a day for 3-5 days. If doing well can go to BID, # 60 cap(s), Refills(s) 0, Pharmacy: [facility], 152, cm, 10/26/23 13:07:00 EST, Height/Length Dosing, 70.5, kg, 10/26/23 13:07:00 EST, Weigh... Documented Medications Documented Aleve: Refills(s) 0 Multi Vitamin+: Oral, Daily, Refill(s) 0 alendronate 70 mg Tab: TAKE 1 TABLET BY MOUTH 30 MINUTES BEFORE first food once a week, Prophylaxis ropinirole: 0.5 mg, Oral, Refills(s) 0 Problem list: All Problems Chronic GERD / SNOMED CT 381900960 / Confirmed Unilateral primary osteoarthritis, right knee / SNOMED CT 2109178236 / Confirmed Gastritis / SNOMED CT 8225829 / Confirmed Vertigo / SNOMED CT 4016026001 / Confirmed BMI 34.0-34.9,adult / SNOMED CT 787526518 / Confirmed Regurgitation of stomach contents / SNOMED CT 268049581 / Confirmed Osteoporosis / SNOMED CT 882910012 / Confirmed HTN (hypertension) / SNOMED CT 3909587682 / Confirmed Dysphagia / SNOMED CT 52666223 / Confirmed Epigastric pain / SNOMED CT 921728121 / Confirmed Chest pain due to GERD / SNOMED CT 75947261 / Confirmed Screening for malignant neoplasm of colon / SNOMED CT 082417340 / Confirmed H/O: osteoarthritis / SNOMED CT 649528836 / Confirmed Hiatal hernia with gastroesophageal reflux / SNOMED CT 2495543333 / Confirmed Duodenogastric bile reflux / SNOMED CT 06355283 / Confirmed Sigmoid diverticulosis / SNOMED CT 6627004899 / Confirmed Tendonitis / SNOMED CT 59823804 / Confirmed Resolved: GERD - Gastro-esophageal reflux disease / SNOMED CT 6607658287 Resolved: Appendicitis / SNOMED CT 493134000 Resolved: Cough / SNOMED CT 25743589 Resolved: Sinus drainage / SNOMED CT 089491298 Canceled: GERD with apnea / SNOMED CT 9555524952 Objective Vital Signs 10/26/2023 12:48 EST Peripheral Pulse Rate 66 bpm Respiratory Rate 20 br/min Systolic Blood Pressure 143 mmHg HI Diastolic Blood Pressure 88 mmHg Mean Arterial Pressure, Cuff 106 mmHg General: Alert and oriented, No acute distress. Overweight Eye: Normal conjunctiva. HENT: Normocephalic, Normal hearing. Cardiovascular: No edema. Musculoskeletal Nor (more content not included)... Normal [facility] Comment on above: Result Comment: Elec tronically Signed By: Vicky Castillo PA-C\.br\Date and Time Signed: 10/26/23 13:22 EST Legal Correspondence Officeo n 10-26-2023 Legal Correspondence Office [id number]#1.00TIFF Normal [facility] Office/Clinic Note-Physician on 10-26-2023 Office/Clinic Note-Physician [id number]#1.00TIFF Normal [facility] Patient Correspondenceon Patient Correspondence [id number]#1.00TIFF Normal [facility] Patient Correspondence [id number]#1.00TIFF Normal [facility] Patient Correspondence [id number]#1.00TIFF Normal [facility] Patient Correspondence [id number]#1.00TIFF Normal [facility] Patient History Officeon Patient History Office [id number]#1.00TIFF Normal [facility] Physician Orderon 10-26-2023 Physician Order [id number]#1.00TIFF Normal [facility] Physician Order [id number]#1.00TIFF Normal [facility] Consent for Procedure/Surger yon 10-07-2023 Consent for Procedure/Surgery [id number]#1.00TIFF Normal [facility] Consent for Treatmenton 09-19 Consent for Treatment [id number]#1.00TIFF Normal [facility] Discharge Instructionson Discharge Instructions [id number]#1.00TIFF Normal [facility] IntraOperative Documentson 1 12-08-2022 IntraOperative Documents [id number]#1.00TIFF [facility] Main OR Intraoperative Recor don 10-07-2023 Main OR Intraoperative Record IntraOp Document Type [facility] Summary Primary Physician: Claudio Monroe DO Finalized Date/Time: 10/07/23 09:50:14 Pt. Name: CHLOE AGARWAL/Sex: 1955 Female Med Rec #: [id number] Physician: Claudio Monroe DO Financial #: [id number] Pt. Type: P Room/Bed: / Admit/Disch: 10/07/23 08:38:44 - Institution: Case Times FTPM Entry 1 Patient Times In Room 10/07/23 09:41:00 Out Room 10/07/23 09:50:00 Procedure Times Start 10/07/23 09:44:00 Stop 10/07/23 09:49:00 Anesthesia Times Last Modified By: Lashanda Durant RN 10/07/23 09:49:58 Case Attendance FTPM Entry 1 Entry 2 Entry 3 Case Attendee Claudio Monroe DO, RN, Lashanda Erickosn RN, Antoinette Brito Role Performed Surgeon - Primary Front End Web Developer - Primary Scrub - Primary Time In 10/07/23 09:41:00 10/07/23 09:41:00 10/07/23 09:41:00 Time Out 10/07/23 09:50:00 10/07/23 09:50:00 10/07/23 09:50:00 Procedure TRANSFORAMINAL EPIDURAL TRANSFORAMINAL EPIDURAL TRANSFORAMINAL EPIDURAL STEROID INJECTIO(Right) STEROID INJECTIO(Right) STEROID INJECTIO(Right) Comments Last Modified By: Lashanda Durant RN, RN, Lashanda Elizalde RN 10/07/23 09:49:59 10/07/23 09:49:59 10/07/23 09:49:59 Entry 4 Case Attendee Faustino Dorado Role Performed Watershed Manager Time In 10/07/23 09:41:00 Time Out 10/07/23 [...] RN, Fer Cruz DO, Bradford A., Faustino Droado Time Out Complete 10/07/23 09:41:00 Outcomes Met? [...] and tissue Entry 1 Skin Integrity Intact, [place], Warm, and Skin Abnormality No Dry Outcomes [...] Press Point (more content not included)... Normal [facility] Main OR Preoperative Recordo n 10-07-2023 Main OR Preoperative Record Holding Area Document Type FTPM Summary Primary Physician: Claudio Monroe DO Finalized Date/Time: 10/07/23 09:09:26 Pt. Name: CHLOE AGARWAL/Sex: 1955 Female Med Rec #: [id number] Physician: Claudio Monroe DO Financial #: [id number] Pt. Type: P Room/Bed: / Admit/Disch: 10/07/23 [...] By: Shea Aguirre RN 10/07/23 09:09 Normal [facility] Patient Correspondenceon Patient Correspondence [id number]#1.00TIFF Normal [facility] Consent for Treatmenton Consent for Treatment [id number]#1.00TIFF [facility] Consultation Noteon 09-22-20 Consultation Note [...] QID, # 120 tab(s), Refills(s) 3, Pharmacy: [facility], 152, cm, 04/03/23 9:20:00 EDT, Height/Length Dosing, 80, kg, 04/03/23 9:20:00 EDT, Weight Dosing Medrol 4 mg Tab: = 1 packet(s), Oral, As Directed, as directed on package labeling, X 6 day(s), # 21 tab(s), Refills(s) 0, Pharmacy: [facility], 152, cm, 09/22/23 11:39:00 EST, Height/Length Dosing, 70.5, kg, 09/22/23 11:39:00 EST, Weight Dosing Protonix 40 mg Tab-DR: 40 mg = 1 tab(s), Oral, BID, # 120 tab(s), Refills(s) 0, Pharmacy: [facility], 152.4, cm, 04/01/21 7:20:00 EDT, Height/Length Dosing, 85.5, kg, 04/01/21 7:20:00 EDT, Weight Dosing losartan 100 mg Tab: 100 mg = 1 tab(s), Oral, Bedtime, # 90 tab(s), Refills(s) 1, Pharmacy: [facility], 152, cm, 07/14/23 9:26:00 EDT, Height/Length Dosing, 76.9, kg, 07/14/23 9:26:00 EDT, Weight Dosing metoprolol 50 mg ER Tab: 50 mg = 1 tab(s), Oral, Daily, # 90 tab(s), Refills(s) 1, Pharmacy: [facility], 152, cm, 07/14/23 9:26:00 EDT, Height/Length Dosing, 76.9, kg, 07/14/23 9:26:00 EDT, Weight Dosing Documented Medications Documented Aleve: Refills(s) 0 Multi Vitamin+: Refill(s) 0 alendronate 70 mg Tab: TAKE 1 TABLET BY MOUTH 30 MINUTES BEFORE first food once a week, Prophylaxis ropinirole: 0.5 mg, Oral, Refills(s) 0 Problem list: All Problems BMI 34.0-34.9,adult / SNOMED CT 518815535 / Confirmed Chest pain due to GERD / SNOMED CT 89254897 / Confirmed Chronic GERD / SNOMED CT 758037282 / Confirmed Duodenogastric bile reflux / SNOMED CT 67933235 / Confirmed Dysphagia / SNOMED CT 25949849 / Confirmed Epigastric pain / SNOMED CT 346287843 / Confirmed Gastritis / SNOMED CT 7928221 / Confirmed H/O: osteoarthritis / SNOMED CT 685398958 / Confirmed Hiatal hernia with gastroesophageal reflux / SNOMED CT 1851717387 / Confirmed HTN (hypertension) / SNOMED CT 0484586702 / Confirmed Osteoporosis / SNOMED CT 296888731 / Confirmed Regurgitation of stomach contents / SNOMED CT 043047235 / Confirmed Screening for malignant neoplasm of colon / SNOMED CT 829634460 / Confirmed Sigmoid diverticulosis / SNOMED CT 3941020121 / Confirmed Tendonitis / SNOMED CT 59343792 / Confirmed Unilateral primary osteoarthritis, right knee / SNOMED CT 5830703678 / Confirmed Vertigo / SNOMED CT 9922831492 / Confirmed Objective Vital Signs 09/22/2023 11:23 [...] after she (more content not included)... Normal [facility] Comment on above: Result Comment: Elec tronically Signed By: Valeri CANTRELL, Demar Preston.br\Date and Time Signed: 09/22/23 11:54 EST Office/Clinic Note-Physician on 09-22-2023 Office/Clinic Note-Physician [id number]#1.00TIFF Normal [facility] Patient Correspondenceon Patient Correspondence [id number]#1.00TIFF Normal [facility] Patient Correspondence [id number]#1.00TIFF Normal [facility] Patient History Officeon Patient History Office [id number]#1.00TIFF Normal [facility] Physician Orderon 07-28-2023 Physician Order [id number]#1.00TIFF Normal [facility] Consenton 07-24-2023 Consent [id number]#1.00TIFF Normal [facility] Patient Eval Forms Officeon 07-24-2023 Patient Eval Forms Office [id number]#1.00TIFF Normal [facility] Patient Eval Forms Office [id number]#1.00TIFF Normal [facility] Consent for Treatmenton Consent for Treatment [id number]#1.00TIFF Normal [facility] CHEMISTRYOrdered By: SYSTEM SYSTEM on 06-05-2023 Anion gap [Moles/Vol] 12 mmol/L Normal 6 - 16 mEq/L FT Remisol Calcium [Mass/Vol] 9.5 mg/dL Normal 8.9 - 11. 1 mg/dL FT Remisol Chloride [Moles/Vol] 107 mmol/L Normal 101 - 1 11 mmol/L [facility] Remisol CO2 [Moles/Vol] 26 mmol/L Normal 21 - 31 mmol/L [facility] Remisol Creatinine [Mass/Vol] 0.7 mg/dL Normal 0.5 - 1.3 mg/dL [facility] Remisol GFR/1.73 sq M.predicted among non-blacks MDRD (S/P/Bld) [Vol rate/Area] 96 mL/min/1.73 m2 Normal >=59mL/min /1.73 m2 [facility] Chem S Glucose [Mass/Vol] 100 mg/dL Normal 55 - 199 mg/dL [facility] Remisol Potassium [Moles/Vol] 3.6 mmol/L Normal 3.5 - 5.3 mmol/L [facility] Remisol Sodium [Moles/Vol] 141 mmol/L Normal 135 - 145 mmol/L [facility] Remisol Troponin I.cardiac [Mass/Vol] 8.30 pg/mL Low 10.10 - 27.10 pg/mL [facility] Remisol Urea nitrogen [Mass/Vol] 19 mg/dL Normal 5 - 21 mg/dL [facility] Remisol Urea nitrogen/Creatinine [Mass ratio] 27 mg/mg High 10 - 20 [facility] Remisol CHEMISTRYOrdered By: Lab ROP User on 06-05-2023 Glucose [Mass/Vol] 109 mg/dL High 55 - 99 mg/dL [facility] POC Subsection Comment on above: Result Comment: Kacey wiley Meter POC Device SN [id number] Invalid Interpretation Code [facility] POC Subsection POC User ID [id number] Invalid Interpretation Code [facility] POC Subsection POC Username SHARITA VARGAS Invalid Interpretation Code [facility] POC Subsection HEMATOLOGYOrdered By: SYSTEM SYSTEM on 06-05-2023 Basophils/100 WBC (Bld) 0.8 % Normal 0.0 - 2.0 % [facility] HemeAutoSS Basophils/Leukocytes Auto (Bld) [Pure # fraction] 0.1 E9/L Normal 0.0 - 0.2 E9/L [facility] HemeAutoSS Eosinophils/100 WBC (Bld) 3.4 % Normal 0.0 - 8.0 % [facility] HemeAutoSS Eosinophils/Leukocyte s Auto (Bld) [Pure # fraction] 0.3 E9/L Normal 0.0 - 0.5 E9/L [facility] HemeAutoSS Lymphocytes/100 WBC (Bld) 20.2 % Normal 14.0 - 50.0 % [facility] HemeAutoSS Lymphocytes/Leukocyte s Auto (Bld) [Pure # fraction] 1.5 E9/L Normal 1.0 - 4.0 E9/L [facility] HemeAutoSS Monocytes/100 WBC (Bld) 7.8 % Normal 4.0 - 14.0 % [facility] HemeAutoSS Monocytes/Leukocytes Auto (Bld) [Pure # fraction] 0.6 E9/L Normal 0.2 - 1.0 E9/L [facility] HemeAutoSS Neutrophils/100 WBC (Bld) 67.8 % Normal 36.0 - 75.0 % [facility] HemeAutoSS Neutrophils/Leukocyte s Auto (Bld) [Pure # fraction] 5.1 E9/L [...] 7.5 E9/L Normal 4.0 - 11.0 E9/L [facility] HemeAutoSS CREATININEon 03-03-2023 Creatinine [Mass/Vol] 0.89 mg/dL Normal 0.55-1.02 [facility] Comment on above: Performed By: #### C LING #### [facility] [address] [address] [address] Lorraine Scott EGFR-AF ECUADOREAN >60 Normal >=60 [facility] Comment on above: Performed By: #### C LING #### [facility] [address] [address] [address] Lorraine Scott EGFR-NON AF ECUADOREAN >60 Normal >=60 [facility] Comment on above: Performed By: #### C LING #### [facility] [address] [address] ABD/PELV W CONon [...] RYAN VAZQUEZ Date: 2023-03-03 10:08 Normal [facility] US SINGLE QUAD RT UPPERon US SINGLE [...] RYAN VAZQUEZ Date: 2023-02-09 11:57 Normal [facility] Cov[facility]on 10-19 SARS-CoV-2 (COVID-19) RNA SHAHEEN+probe Ql (Unsp spec) Detected Abnormal NOT DETECTED [facility] Comment on above: Result Comment: This test is not yet approved or cleared by the [place] FDA. When there are no FDA-approved or cleared tests available, and other criteria are met, FDA can make tests available under an emergency access mechanism called an Emergency Use Authorization (EUA). The EUA for this test is supported by the [place] of Health and Human Service's declaration that [...] used). Performed By: #### C VDTBH #### [facility] [address] [place] [address] Dr. Lorraine Scott INFLUENZA A AND B AGon 11-05 [facility] SEE BELOW Normal [facility] Comment on above: Result Comment: Nega tive for Flu A protein angiten. Infection due to Flu A cannot be ruled out. Flu A angiten in the sample may be below the detection limit of the test. Performed By: #### I NFLUAB #### [facility] [address] [place] [address] Dr. Lorraine Scott INFLUBNEG SEE BELOW Normal [facility] Comment on above: Result Comment: Nega tive for Flu B protein antigen. Infection due to Flu B cannot be ruled out. Flu B antigen in the sample may be below the detection limit of the test. Performed By: #### I NFLUAB #### [facility] [address] [place] [address] Dr. Lorraine Scott INFLUENZA A AG Negative Normal NEGATIVE SEE COMMENT [facility] Comment on above: Performed By: #### I NFLUAB #### [facility] [address] [place] [address] Dr. Lorraine Scott INFLUENZA B AG Negative Normal NEGATIVE SEE COMMENT [facility] Comment on above: Performed By: #### I NFLUAB #### [facility] [address] [place] [address] Dr. Lorraine Scott MG MAMM SCREEN 3D LAURA CADon 10-22-2022 MG MAMM SCREEN 3D LAURA CAD Patient: CHLOE AGARWAL Exam Date: 10/22/2022 : 1955 Gender:F Ordering : DR JUAN CARLOS NARVAEZ . Admission #: [id number] Family : Order #: [id number] CLICK HERE TO VIEW EXAM RADIOLOGY REPORT [...] Treatments None Family Cancers None LOCATION: [facility] BREAST COMPOSITION: Scattered areas fibroglandular density. FINDINGS: [...] Vazquez M.D. on 10/23/2022 at 08:41 Normal [facility] XR DEXA BONE DENSITYon 10-22 [...] by: RYAN VAZQUEZ Date: 2022-10-22 09:12 Normal [facility] PAP ACOG PANEL 2: 30 to 65on 10-03-2022 . . Normal [facility] Comment on above: Result Comment: Perf ormed at: WB Performed By: #### 4 [id number] #### [facility] [address] [place] [address] Dr. Lorraine Scott Age Gdln ACOG Testing 30-65 Normal [facility] Comment on above: Performed By: #### 4 [id number] #### [facility] [address] [place] [address] Dr. Lorraine Scott DIAGNOSIS: Comment Normal [facility] Comment on above: Result Comment: NEGA TIVE FOR INTRAEPITHELIAL LESION OR MALIGNANCY. CELLULAR CHANGES ASSOCIATED WITH ATROPHY ARE PRESENT. Performed at: WB Performed By: #### 4 [id number] #### [facility] [address] [place] [address] Dr. Lorraine Scott HPV Aptima Negative Normal Negative [facility] Comment on above: Result Comment: This nucleic acid amplification test detects fourteen high-risk HPV types (16,18,31,33,35,39,45,51,52,56,58,59,66,68) without differentiation. Performed at: =G Performed By: #### 4 [id number] #### [facility] [address] [place] [address] Dr. Lorraine Scott HPV Genotype Reflex Comment Normal [facility] Comment on above: Result Comment: Crit eria not met, HPV Genotype not performed. Performed at: WB Performed By: #### 4 [id number] #### [facility] [address] [place] [address] Dr. Lorraine Scott Methodology: Comment Normal [facility] Comment on above: Result Comment: This liquid based ThinPrep(R) pap test was screened with the use of an image guided system. Performed at: WB Performed By: #### 4 [id number] #### [facility] [address] [place] [address] Dr. Lorraine Scott Note: Comment Normal [facility] Comment on above: Result Comment: The Pap smear is a screening test designed to aid in the detection of premalignant and malignant conditions of the uterine cervix. It is not a diagnostic procedure and should not be used as the sole means of detecting cervical cancer. Both false-positive and false-negative reports do occur. . Performed at: WB Performed By: #### 4 [id number] #### [facility] [address] [place] [address] Dr. Lorraine Scott Performed by: Comment Normal [facility] Comment on above: Result Comment: Kong Juarez, Buildings And Grounds Supervisor (ASCP) Performed at: WB Performed By: #### 4 [id number] #### [facility] [address] [place] [address] Dr. Lorraine Scott Specimen adequacy: Comment Normal [facility] Comment on above: Result Comment: Sati sfactory for evaluation. Endocervical component may not be distinguished in cases of atrophy. Performed at: WB Performed By: #### 4 [id number] #### [facility] [address] [address] [address] Lorraine Scott CHEMISTRYOrdered By: SYSTEM SYSTEM [...] 56 mL/min/1.73 m2 Low >=59mL/min /1.73 m2 [facility] Chem S Glucose [Mass/Vol] 104 mg/dL [...] [facility] Remisol Intraoperative Noteon 2017 Intraoperative Note [id number]#1.00OTGTIFF [facility] Coding Summaryon 12-14-2017 Coding Summary CODING DATE: 018 [facility] STATUS: Home PAYOR: Commercial Insurance APC DESCRIPTION 5361 Level 1 Laparoscopy and Related Services ADMIT DX: REASON FOR VISIT DX: K35.80 Unspecified acute appendicitis FINAL DX: PRINCIPAL: K35.80 Unspecified acute appendicitis SECONDARY: K21.9 Gastro-esophageal reflux disease without esophagitis PYMT PROC APC STAT DESCRIPTION DOCTOR NAME DATE 05842 5361 J1 Laparoscopy, surgical, Adryan Yoon MD appendectomy NOTE: The code number assigned matches the documented diagnosis and / or procedure in the patient's chart. However, the narrative phrase printed from the coding software may appear abbreviated, or result in slightly different terminology. Coded By: Tenisha Smith Date Saved: 12/14/2017 09:53 am [facility] Lab - Other Lab Resultson Lab - Other Lab Results [id number]#1.00OTGTIFF [facility] Operative Report - Surgeon/P avery 12-09-2017 [...] theprocedure without any difficulties.Adryan Yoon M.D.JOB #: [id number]: 12/09/2017T: 12/09/2017[Electronically Signed on: 12/15/2017 10:32 EST] Adryan Yoon MD[Verified on: 12/15/2017 10:32 EST] Adryan Yoon MD[Transcribed on: 12/09/2017 09:14 EST]GDU [facility] Outside Recordson 12-09-2017 Outside Records [id number]#1.00OTGTIFF [facility] Outside Records [id number]#1.00OTGTIFF [facility] MAGR Postoperative Recordon 12-08-2017 MAGR Postoperative Record MAGR Phase II Record Summary Primary Physician: Adryan Yoon MD Finalized Date/Time: 12/08/17 13:12:55 Pt. Name: ANYCHLOE.O.B./Sex: 1955 FEMALE Med Rec #: [id number] Physician: Adryan Yoon MD Financial #: [id number] Pt. Type: D Room/Bed: [facility] Admit/Disch: 12/04/17 03:05:00 - 12/05/17 12:30:00 [...] discharge instructions. General Comments: care per 2 [facility] nursing personnel Finalized By: Chloe Turcios RN Document Signatures Signed By: Chloe Turcios RN 12/08/17 13:12 [facility] Operative Report - Surgeon/P avery 12-08-2017 Operative Report - Surgeon/Physician [id number]#1.00OTGTIFF [facility] Pathology Sendout Teston 02- 20-2018 Pathology Send Out. See Report Normal [facility] Comment on above: Order Comment: JANET COWART Performed By: #### 2 [id number] ####[facility] (DEFAULT)[address] [place] [address] Provider Orderson 12-08-2017 Provider Orders [id number]#1.00[facility] Consent Formson 12-07-2017 Consent Forms [id number]#1.00[facility] Intraoperative Noteon 2017 Intraoperative Note [id number]#1.00[facility] Medication Managementon 11-19 Medication Management [id number]#1.00[facility] Telemetry Stripson 8 Telemetry Strips [id number]#1.00[facility] Discharge Summaryon 12-06-19 Discharge Summary DISCHARGE DIAGNOSIS: Acute appendicitis.DISCHARGE CONDITION: Good.HOSPITAL COURSE: The patient is a 62-year-old woman who presented [facility] emergency department. She was found to have a slightlyelevated white blood cell count. A CT scan was consistent with acuteappendicitis. The patient wanted to be transferred to [facility] andas a result, she underwent a laparoscopic appendectomy. Postoperatively sheis doing well. Her white blood cell count decreased to the normal range. Sheis tolerating a regular diet. Her pain is controlled and she is ambulatingwithout difficulty. As a result, she will be discharged home. She willfollow-up with me in two weeks.Adryan Yoon M.D.JOB #: [id number]: 12/05/2017T: 12/06/2017[Electronically Signed on: 12/09/2017 07:13 EST] Adryan Yoon MD[Verified on: 12/09/2017 07:13 EST] Adryan Yoon MD[Transcribed on: 12/06/2017 08:45 EST]GDU Normal [facility] .Auto Diff 1on 12-05-2017 Auto Baso % 0.1 % Low 0.2-2.0 [facility] Comment on above: Performed By: #### 7 [id number], [id number] ####[facility] (DEFAULT)[address] [place] [address] Auto Giles % 8 % Normal 1-12 [facility] Comment on above: Performed By: #### 7 [id number], [id number] ####[facility] (DEFAULT)[address] [place] [address] Auto Neut % 86 % Normal 44-88 [facility] Comment on above: Performed By: #### 7 [id number], [id number] ####[facility] (DEFAULT)[address] [place] [address] Baso Abs# 0.0 x10 Normal 0.0-0.2 [facility] Comment on above: Performed By: #### 7 193401, [id number] ####[facility] (DEFAULT)[address] [place] [address] Eos Abs# 0.0 x10 Normal 0.0-0.4 [facility] Comment on above: Performed By: #### 7 500294, [id number] ####[facility] (DEFAULT)[address] [place] [address] Eosinophils/100 leukocytes 0.0 % Low 0.9-4.0 [facility] Comment on above: Performed By: #### 7 540265, [id number] ####[facility] (DEFAULT)[address] [place] [address] Lymphocytes 0.6 x10 Low 1.3-2.9 [facility] Comment on above: Performed By: #### 7 483045, [id number] ####[facility] (DEFAULT)[address] [place] [address] Lymphocytes/100 leukocytes 6 % Low 14-48 [facility] Comment on above: Performed By: #### 7 855923, [id number] ####[facility] (DEFAULT)[address] [place] [address] Giles Abs# 0.9 x10 High 0.0-0.8 [facility] Comment on above: Performed By: #### 7 [id number], [id number] ####[facility] (DEFAULT)[address] [place] [address] Neut Abs# 9.9 x10 High 1.5-9.2 [facility] Comment on above: Performed By: #### 7 668010, [id number] ####[facility] (DEFAULT)[address] [place] [address] CBC w/ Auto Diffon 8 Erythrocyte distribution width Auto Ratio (RBC) 13.6 % Normal 11.5-15.0 [facility] Comment on above: Performed By: #### 7 334016, [id number] ####[facility] (DEFAULT)[address] [place] [address] Erythrocytes (RBC) 3.75 x10 Normal 3.70-5.30 [facility] Comment on above: Performed By: #### 7 [id number], [id number] ####[facility] (DEFAULT)[address] [place] [address] Hematocrit (HCT) 34.4 % Normal 33.7-40.4 [facility] Comment on above: Performed By: #### 7 514131, [id number] ####[facility] (DEFAULT)[address] [place] [address] Hemoglobin mass conc (Bld) 11.0 g/dL Low 11.3-15.9 [facility] Comment on above: Performed By: #### 7 345275, [id number] ####[facility] (DEFAULT)[address] [place] [address] Man Diff? Auto Normal [facility] Comment on above: Performed By: #### 7 [id number], [id number] ####[facility] (DEFAULT)[address] [place] [address] MCH 29 pg Normal 24-34 [facility] Comment on above: Performed By: #### 7 [id number], [id number] ####[facility] (DEFAULT)[address] [place] [address] MCHC mass conc (RBC) 32 g/dL Normal 26-37 [facility] Comment on above: Performed By: #### 7 [id number], [id number] ####[facility] (DEFAULT)[address] [place] [address] MCV 92 fL Normal 81-100 [facility] Comment on above: Performed By: #### 7 [id number], [id number] ####[facility] (DEFAULT)[address] [place] [address] Platelet mean volume (PMV) 11.7 fL High 6.3-10.2 [facility] Comment on above: Performed By: #### 7 [id number], [id number] ####[facility] (DEFAULT)[address] [place] [address] Platelets 204 x10 Normal 138-427 [facility] Comment on above: Performed By: #### 7 [id number], [id number] ####[facility] (DEFAULT)[address] [place] [address] WBC (Leukocytes) 11.4 x10 High 3.5-10.5 [facility] Comment on above: Performed By: #### 7 [id number], [id number] ####[facility] (DEFAULT)[address] [place] [address] Education Noteon 12-05-2017 Education Note Education MaterialsGastroenterologyApp endicitisThe appendix is a finger-shaped tube that is [...] Reviewed: 02/20/2016[employer] Patient Education ? 2017 [employer] Normal [facility] Inpatient Clinical Summaryon 12-05-2017 Inpatient Clinical Summary [facility] 2SOUTHClinical Discharge SummaryPERSON INFORMATIONName CHLOE AGARWAL Age 62 Years 59Sex FEMALE Language Tuvaluan PCP Agus MCGHEE Status Med Service Ambulatory SurgeryN [id number] Acct# Arrival 12/04/17 03:05:00Visit Reason APPENDICITIS Acuity LOS 000 34:38Address:[place] [address]Caxmbis:PROVIDER INFORMATIONVITALS INFORMATIONVital Sign Triage LatestTemp Oral 36.8 DegC 36.4 DegCTemp TemporalTemp IntravascularTemp AxillaryTemp Sokkhv26 Sat 99 % 99 %Respiratory Rate 16 br/min 18 br/minPeripheral Pulse Rate 79 bpm 60 bpmApical Heart Rate 76 bpm 60 bpmBlood Pressure 138 mmHg / 86 mmHg 97 mmHg / 59 mmHgComment:MEDICAL INFORMATIONAllergy Info:Allergies sulfonamidePrescriptions Given:Home Meds Displayacetaminophen-hydroco done (Warwick 7.5 mg-325 mg oral tablet) 1 tab(s), [...] Every 4 hours as needed for for painacetaminophen-hydrocodon e ([place]wick 7.5 mg-325 mg oral tablet) 1 tab(s) [...] range between ( 1.3 and 2.9 ) Giles Abs#: 0.9 x103/mcL -- Normal range between ( 0.0 and 0.8 ) Auto Baso %: 0.1 % -- Normal range between ( 0.2 and 2.0 ) Auto Giles %: 8 % -- Normal range between [...] HomeDischarge Location: HomeDEPART REASON INCOMPLETE INFORMATIONPATIENT EDUCATION INFORMATIONInstructions:Appe ndicitisFollow up:With: Address: When:Adryan Yoon MD [address] [place] [address] Business (1)DIAGNOSIS1:Acute appendicitisPROBLEMSProblems Active Arthritis Heart murmur HeartburnComment:PHYS DOC NOTES Normal [facility] Inpatient Patient Summaryon 12-05-2017 Inpatient Patient Summary [facility] [place] [address] patient Discharge InstructionsName: CHLOE AGARWALDOB: [birth year] Address: [address] [facility] [address] Care Provider:Name: CORINNEVilma GILBERTOHERNANDEZPhone: After you are discharged if you find you have any questions, please, call [phone] ext [phone] to speak to a nurse.Discharge Diagnosis: 1:Acute [...] or business decisions or sign any legal documentsGuernsey Memorial Hospital would like to thank you for allowing us to assist you with your healthcare needs. The following includes patient education materials and information regarding your injury/illness.CHLOE AGARWAL has been given the following list of follow-up instructions, prescriptions, and patient education materials:Follow-up InstructionsWith: Address: When:Adryan Yoon MD [address] [place] [address] Business (1)MedicationsDuring the course of your visit, your medication list was updated with the most current information. The details of those changes are reflected below:Medications to Continue That Have Not ChangedOther Medicationsacetaminophen-hyd rocodone (Warwick 7.5 mg-325 mg oral tablet) 1 tab(s) [...] medications list that you can keep with you.acetaminophen-hydrocodon e (Warwick 7.5 mg-325 mg oral tablet) 1 tab(s) [...] Reviewed: 02/20/2016Elsevier Interactive Patient Education ? 2017 [employer].Viruses or BacteriaWhat?s got you sick?Antibiotics only treat [...] for Disease Control and Prevention June 2014 [facility] Progress Note - Nurseon 11-19 Pulse [...] on: 12/05/2017 09:52 EST] Sim Chamorro RN [facility] Progress Note - Nurse Pt walking the sachin lway with RN, 200 ft, standby assist. Pt is steady. No c/o SOB or dizziness. Bilateral upper and lower abdominal pain 3/10, prn norco administered as ordered. 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 Pt c/o upper and lower abdominal pain [...] Cross[Verified on: 12/04/2017 23:39 EST] Serina Cross [facility] Anesthesia Noteon 12-04-2017 Anesthesia Note Patient: CHLOE AGARWAL : 62 years Sex: FEMALE : [birth year]Associated Diagnoses: NoneAuthor: Fernie Sandovalostoperative InformationPost Operative Note: Post Anesthesia Care Unit.Review / ManagementCondition: Stable.AssessmentAnesthetic outcomeNo anesthetic complications noted.PlanTransfer/ Discharge: Patient can be discharged from PACU when criteria met.Condition good.[Electronically Signed on: 12/04/2017 15:01 EST] Fernie Sandoval DO[Verified on: 12/04/2017 15:01 EST] Fernie Sandoval DO [facility] Anesthesia Note Patient: CHLOE AGARWAL : 62 years Sex: FEMALE : [birth year]Associated Diagnoses: NoneAuthor: Fernie Sandovalreoperative InformationAnesthesia history: Patient history: Nausea and vomiting with anesthesia, No difficult intubation, No malignant hyperthermia. Family history: No malignant hyperthermia, No prior anesthesia problems.Review of SystemsConstitutionalEyeEar/ Nose/Mouth/ThroatRespiratory : No shortness of breath, No cough.Cardiovascular: No chest pain.Gastrointestinal: Heartburn.Neurologic: Alert and oriented X4.Health StatusAllergies:Allergic Reactions (All)Severity Not DocumentedSulfonamide- No reactions were documented.Current medications:Home Medications (3) ActiveColace 100 mg oral capsule 100 mg = 1 cap(s), PRN, PO, Dailyibuprofen 200 mg oral capsule 400 mg = 2 cap(s), PRN, PO, [id number] 20 mg oral delayed release capsule 20 mg = 1 cap(s), PO, DailyProblem list (past medical history):All ProblemsAlteration in comfort: pain / SNOMED CT 13386999 / ConfirmedArthritis / SNOMED CT 5594397 / ConfirmedHeart murmur / SNOMED CT 291404609 / ConfirmedHeartburn / SNOMED CT 01803688 / ConfirmedResolved: Kidney stones / SNOMED CT 081123778Aqeisjca: History of renal stent / SNOMED CT 7886982285Qgqaixjv: Acute appendicitis / SNOMED CT 714036432RxojcoqzkHddeqr History:DementiaFatherLiver massSisterCHF (congestive heart failure)MotherFatherProcedur e history:History of right total knee replacement ([id number]).History of left total knee replacement ([id number]).Tonsillect kike ([id number]).Removal of ureteral stent ([id number]).History of ureteral stent placement ([id number]).Social History Alcohol Assessment Use: Never. Tobacco Assessment Never (less than 100 in lifetime) Tobacco Use:. Substance Abuse Assessment Substance use: Never. 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 Home/Environment Assessment Lives with Children, Spouse. Living situation: Home/Independent. Nutrition/Health Assessment Regular, Caffeine intake amount: Hot tea in the morning..Social & Psychosocial LqmvwoMmmpffk41/16/2018 Alcohol Use: NeverEmployment/[id number] Status: Self employed Description: Office workHome/Zslqllfbpfy01/16/20 18 Lives with: Children, Spouse Living situation: Home/IndependentNutrition/He alth12/04/2017 Type of diet: Regular Caffeine intake amount: Hot tea in the morningSubstance Abuse12/04/2017 Substance use: LgkkiQrmgymy36/16/2018 Smoking tobacco use: Never (less than 100 in l.Physical ExaminationVS/MeasurementsMe asurements from flowsheet : Fyfcvvgzucrr92/16/18 03:09 EST Height 152.400 cm Height/Length Dosing 152.400 cm Weight 71.200 kg Weight Dosing 71.200 kg Body Mass Index 30.660 kg/m2,Vital Signs (last 24 hrs) Last ChartedTemp Oral 36.7 DegC (DEC 04 07:00)Heart Rate Peripheral 76 bpm (DEC 04:00)Resp Rate 18 br/min (DEC 04:00)SBP 123 mmHg (DEC 04:00)DBP 77 mmHg (DEC 04:)SpO2 99 % (DEC 04:)Weight 71.200 kg (DEC 04 03:09)Height 152.40 cm (DEC 04:)General: Alert and oriented, No acute distress.Airway: Mallampati classification: II (soft palate, fauces, uvula visible). Temporomandibular joint mobility: Good. Mouth: Teeth ( Haslet ). Neck: Non-tender, Full range of motion.Respiratory: [...] on: 12/04/2017 08:38 EST] Fernie Sandoval DO [facility] History and Physicalon 12-04 History and Physical DATE OF ADMISSION: 12/04/17 MEDICAL HISTORYCHIEF COMPLAINT: Right lower quadrant abdominal pain.HISTORY OF PRESENT ILLNESS: The patient is a 62-year-old woman withabdominal pain. She presented to the emergency department at [facility]. A CT scan of the abdomen and pelvis was obtained which wasconsistent with acute appendicitis. Due to personal reasons, she did notwant the surgery performed at [facility] and as a result, [facility] [...] lower quadrant tenderness.No rebound or guarding. No hepatosplenomegaly.EXTREMITI ES: Warm. No clubbing, cyanosis or edema.NEUROLOGICAL: Cranial [...] to undergo the procedure.Adryan Yoon M.D.JOB #: [id number]: 12/04/2017T: 12/04/2017[Electronically Signed on: 12/04/2017 07:16 EST] Adryan Yoon MD[Verified on: 12/04/2017 07:16 EST] Adryan Yoon MD[Transcribed on: 12/04/2017 06:52 EST][facility] MAGR Intraoperative Recordon 12-04-2017 MAGR Intraoperative Record MAGR Intra-Op Record Summary Primary Physician: Adryan Yoon MD Finalized Date/Time: 12/04/17 15:26:26 Pt. Name: CHLOE AGARWAL/Sex: 1955 FEMALE Med Rec #: [id number] Physician: Adryan Yoon MD Financial #: [id number] Pt. Type: D Room/Bed: [facility] Admit/Disch: 12/04/17 03:05:00 - Institution: Case [...] Role Performed Surgeon - Primary Anesthesiologist of Front End Web Developer Record Time In 12/04/17 09:44:00 12/04/17 09:44:00 12/04/17 09:44:00 Time Out 12/04/17 10:42:00 12/04/17 10:42:00 12/04/17 10:42:00 Procedure Appendectomy Appendectomy Appendectomy Laparoscopic Laparoscopic Laparoscopic Last Modified By: Olinda Mora Cynthia M Cartier, Cynthia M 12/04/17 10:56:16 12/04/17 10:56:16 12/04/17 10:56:16 Entry 4 Entry 5 Entry 6 Case Attendee Jennifer Li DIRECTOR OF TAX SERVICES BOARD CSFA/DIRECTOR OF TAX SERVICES, Antonia Bah RN Role Performed Quarryman Scrub Personnel Front End Web Developer Time In 12/04/17 09:44:00 12/04/17 09:44:00 12/04/17 [...] Count Time 12/04/17 09:50:00 Performed By BOARD LEA/RADHA, YESENIA Counts Verification Final Counts Items Included in Sponges, Sharps Final Count Method Manual Final Count Final Count Status Correct Final Counts Olinda Mora, Performed By BOARD LEA/RADHA, YESENIA Surgeon notified of Yes final counts [...] Signed By: Antonia Pérez RN 12/04/17 15:26 [facility] PACU Recordon 8 MAGR PACU Record MAGR PACU Record [facility] Primary Physician: Adryan Yoon MD Finalized Date/Time: 12/04/17 11:35:32 Pt. Name: CHLOE AGARWAL/Sex: 1955 FEMALE Med Rec #: [id number] Physician: Adryan Yoon MD Financial #: [id number] Pt. Type: D Room/Bed: 229/1 Admit/Disch: 12/04/17 03:05:00 - Institution: PACU Case Times MAGR Entry 1 In PACU I 12/04/17 10:44:00 Discharge from PACU 12/04/17 11:25:00 I Last Modified By: Vernell Gunderson RN 12/04/17 11:35:30 Finalized By: Vernell Gunderson RN Document Signatures Signed By: Vernell Gunderson RN 12/04/17 11:35 [facility] Progress Note - Nurseon 11-19 Progress [...] Rivero RN[Verified on: 12/04/2017 04:41 EST] Liliane Rievro RN [facility] Vital Signs Date Time Vital Sign Value Performing Clinician Davian swan 01-23-2025 14:25-0400 Blood Pressure Location Baldomero Bryant [facility] 01-23-2025 14:25-0400 Diastolic blood pressure 89 mm[Hg] Baldomero Bryant [facility] 01-23-2025 14:25-0400 Heart rate 70 /min Baldomero Bryant [facility] 01-23-2025 14:25-0400 Respiratory rate 16 /min Baldomero Bryatn [facility] 01-23-2025 14:25-0400 SaO2% (BldA) [Mass fraction] 99 % Baldomero Bryant [facility] 01-23-2025 14:25-0400 Systolic blood pressure 149 mm[Hg] Baldomero Bryant [facility] 11-28-2024 08:59-0500 Body mass index (BMI) [Ratio] 31.64 kg/m2 Antionette LOPEZ Work Phone: [facility] 11-28-2024 08:59-0500 Body weight 73.48 kg Antionette LOPEZ Work Phone: [facility] 11-28-2024 08:59-0500 Diastolic blood pressure 76 mm[Hg] Antionette LOPEZ Work Phone: [facility] 11-28-2024 08:59-0500 Systolic blood pressure 126 mm[Hg] Antionette LOPEZ Work Phone: [facility] 10-05-2024 11:45-0500 Diastolic blood pressure 76 mm[Hg] Lokesh Mcqueen [facility] 10-05-2024 11:45-0500 Mean blood pressure 102 mm[Hg] Lokesh Mcqueen [facility] 10-05-2024 11:45-0500 Systolic blood pressure 153 mm[Hg] Lokesh Mcqueen [facility] 10-05-2024 11:35-0500 Blood Pressure Location Lokesh Mcqueen [facility] 10-05-2024 11:35-0500 Diastolic blood pressure 84 mm[Hg] Lokesh Mcqueen [facility] 10-05-2024 11:35-0500 Heart rate 62 /min Lokesh Mcqueen [facility] 10-05-2024 11:35-0500 Respiratory rate 18 /min Lokesh Mcqueen [facility] 10-05-2024 11:35-0500 SaO2% (BldA) [Mass fraction] 98 % Lokesh Mcqueen [facility] 10-05-2024 11:35-0500 Systolic blood pressure 156 mm[Hg] Lokesh Mcqueen [facility] 08-19-2024 13:49-0400 Heart rate 68 /min SAM KAISER [facility] 08-19-2024 13:49-0400 SaO2% (BldA) [Mass fraction] 98 % SAM KAISER [facility] 08-19-2024 13:49-0400 Blood Pressure Location SAM KAISER [facility] 08-19-2024 13:49-0400 Diastolic blood pressure 77 mm[Hg] SAM KAISER [facility] 08-19-2024 13:49-0400 Mean blood pressure 97 mm[Hg] SAM KAISER [facility] 08-19-2024 13:49-0400 Systolic blood pressure 136 mm[Hg] SAM KAISER [facility] 08-19-2024 13:48-0400 Respiratory rate 18 /min SAM KAISER [facility] 08-19-2024 12:16-0400 Heart rate 52 /min SAM KAISER [facility] 08-19-2024 12:16-0400 SaO2% (BldA) [Mass fraction] 100 % SAM KA[facility] 08-19-2024 12:16-0400 Blood Pressure Location SAM KAISER [facility] 08-19-2024 12:16-0400 Diastolic blood pressure 63 mm[Hg] SAM KAISER [facility] 08-19-2024 12:16-0400 Mean blood pressure 81 mm[Hg] SAM KAISER [facility] 08-19-2024 12:16-0400 Systolic blood pressure 117 mm[Hg] SAM KAISER [facility] 08-19-2024 12:15-0400 Respiratory rate 18 /min SAM KAIS[facility] 08-19-2024 09:55-0400 Heart rate 50 /min SAM KA[facility] 08-19-2024 09:55-0400 SaO2% (BldA) [Mass fraction] 98 % SAM [facility] 08-19-2024 09:55-0400 Diastolic blood pressure 68 mm[Hg] SAM KAISER [facility] 08-19-2024 09:55-0400 Mean blood pressure 81 mm[Hg] SAM KAISER [facility] 08-19-2024 09:55-0400 Systolic blood pressure 106 mm[Hg] SAM KAISER [facility] 08-19-2024 09:54-0400 Respiratory rate 18 /min SAM KA[facility] 08-19-2024 08:04-0400 Body temperature 97.52 [degF] SAM KAISER [facility] 08-19-2024 08:03-0400 Blood Pressure Location SAM KAISER [facility] 08-11-2024 10:49-0400 Body height 152.4 cm Sydnie Villalobos DPM Work Phone: [facility] 08-11-2024 10:49-0400 Body mass index (BMI) [Ratio] 30.86 kg/m2 Sydnie Villalobos DPM Work Phone: [facility] 08-11-2024 10:49-0400 Body weight 71.67 kg Sydnie Villalobos DPM Work Phone: [facility] 07-13-2024 15:01-0400 Blood Pressure Location Willie Kaur [facility] 07-13-2024 15:01-0400 Diastolic blood pressure 82 mm[Hg] Willie Kaur [facility] 07-13-2024 15:01-0400 Heart rate 68 /min Willie Kaur [facility] 07-13-2024 15:01-0400 Respiratory rate 18 /min Willie Kaur [facility] 07-13-2024 15:01-0400 SaO2% (BldA) [Mass fraction] 98 % Willie Kaur [facility] 07-13-2024 15:01-0400 Systolic blood pressure 137 mm[Hg] Willie Kaur [facility] 07-06-2024 14:55-0400 Diastolic blood pressure 82 mm[Hg] Claudio Monroe [facility] 07-06-2024 14:55-0400 Heart rate 66 /min Claudio Monroe [facility] 07-06-2024 14:55-0400 Mean blood pressure 103 mm[Hg] Claudio Monroe [facility] 07-06-2024 14:55-0400 Respiratory rate 14 /min Claudio Monroe [facility] 07-06-2024 14:55-0400 Systolic blood pressure 144 mm[Hg] Claudio Monroe [facility] 05-08-2024 09:00-0400 Diastolic blood pressure 63 mm[Hg] Nelson Solares [facility] 05-08-2024 09:00-0400 Heart rate 55 /min eNlson Solares [facility] 05-08-2024 09:00-0400 Mean blood pressure 78 mm[Hg] Nelson Solares [facility] 05-08-2024 09:00-0400 SaO2% (BldA) [Mass fraction] 99 % Nelson Solares [facility] 05-08-2024 09:00-0400 Systolic blood pressure 108 mm[Hg] Nelson Beck [facility] 05-08-2024 08:26-0400 Diastolic blood pressure 77 mm[Hg] Nelson Solares [facility] 05-08-2024 08:26-0400 Heart rate 58 /min Nelson Solares [facility] 05-08-2024 08:26-0400 Mean blood pressure 105 mm[Hg] Nelson Solares [facility] 05-08-2024 08:26-0400 Respiratory rate 15 /min Nelson Solares [facility] 05-08-2024 08:26-0400 SaO2% (BldA) [Mass fraction] 98 % Nelson Solares [facility] 05-08-2024 08:26-0400 Systolic blood pressure 161 mm[Hg] Nelson Solares [facility] 05-08-2024 07:19-0400 Body temperature 98.42 [degF] Nelson Solares [facility] 05-08-2024 07:19-0400 Diastolic blood pressure 82 mm[Hg] Nelson Solares [facility] 05-08-2024 07:19-0400 Heart rate 64 /min Nelson Solares [facility] 05-08-2024 07:19-0400 Respiratory rate 16 /min Nelson Solares [facility] 05-08-2024 07:19-0400 SaO2% (BldA) [Mass fraction] 100 % Nelson Solares [facility] 05-08-2024 07:19-0400 Systolic blood pressure 163 mm[Hg] Nelson Solares [facility] 12-18-2023 13:32-0500 Blood Pressure Location Willie Kaur [facility] 12-18-2023 13:32-0500 Diastolic blood pressure 70 mm[Hg] Willie Kaur [facility] 12-18-2023 13:32-0500 Heart rate 60 /min Willie Kaur [facility] 03-01-2024 13:32-0500 SaO2% (BldA) [Mass fraction] 99 % Willie Kaur [facility] 12-18-2023 13:32-0500 Systolic blood pressure 110 mm[Hg] Willie Kaur [facility] 11-25-2023 09:00-0500 Body height 152.4 cm Antionette Yang PA Work Phone: [facility] 11-25-2023 09:00-0500 Body mass index (BMI) [Ratio] 33.22 kg/m2 Antionette Woodbridge PA Work Phone: [facility] 11-25-2023 09:00-0500 Body weight 77.17 kg Antionette Trey PA Work Phone: [facility] 11-25-2023 09:00-0500 Diastolic blood pressure 84 mm[Hg] Antionette Yang PA Work Phone: [facility] 11-25-2023 09:00-0500 Systolic blood pressure 120 mm[Hg] Antionette Yang PA Work Phone: [facility] 11-20-2023 13:11-0500 Diastolic blood pressure 81 mm[Hg] Vicky Castillo [facility] 11-20-2023 13:11-0500 Heart rate 59 /min Vicky Castillo [facility] 11-20-2023 13:11-0500 Mean blood pressure 106 mm[Hg] Vicky Castillo [facility] 11-20-2023 13:11-0500 Respiratory rate 18 /min Vicky Castillo [facility] 11-20-2023 13:11-0500 Systolic blood pressure 156 mm[Hg] Vicky Castillo [facility] 11-17-2023 11:36-0500 Diastolic blood pressure 118 mm[Hg] Landon DOUGLAS [facility] 11-17-2023 11:36-0500 Mean blood pressure 135 mm[Hg] Landon DOUGLAS [facility] 11-17-2023 11:36-0500 Systolic blood pressure 170 mm[Hg] Landon DOUGLAS [facility] 11-17-2023 11:27-0500 Blood Pressure Location Landon DOUGLAS [facility] 11-17-2023 11:27-0500 Diastolic blood pressure 107 mm[Hg] Landon DOUGLAS [facility] 11-17-2023 11:27-0500 Heart rate 68 /min Landon DOUGLAS [facility] 11-17-2023 11:27-0500 SaO2% (BldA) [Mass fraction] 98 % Landon DOUGLAS [facility] 11-17-2023 11:27-0500 Systolic blood pressure 171 mm[Hg] Landon DOUGLAS [facility] 10-26-2023 12:48-0500 Diastolic blood pressure 88 mm[Hg] Vicky Castillo [facility] 10-26-2023 12:48-0500 Heart rate 66 /min Vickyjayden Castillo [facility] 10-26-2023 12:48-0500 Mean blood pressure 106 mm[Hg] Vickyjayden Castillo [facility] 10-26-2023 12:48-0500 Respiratory rate 20 /min Vickyjayden Castillo [facility] 10-26-2023 12:48-0500 Systolic blood pressure 143 mm[Hg] Vicky Castillo [facility] 10-07-2023 09:52-0500 Heart rate 68 /min Claudio Monroe [facility] 10-07-2023 09:52-0500 SaO2% (BldA) [Mass fraction] 100 % Claudio Monroe [facility] 10-07-2023 09:52-0500 Diastolic blood pressure 95 mm[Hg] Claudio Monroe [facility] 10-07-2023 09:52-0500 Mean blood pressure 113 mm[Hg] Claudio Monroe [facility] 10-07-2023 09:52-0500 Systolic blood pressure 148 mm[Hg] Claudio Monroe [facility] 10-07-2023 09:52-0500 Respiratory rate 16 /min Claudio Monroe [facility] 10-07-2023 09:45-0500 Diastolic blood pressure 94 mm[Hg] Claudio Monroe [facility] 10-07-2023 09:45-0500 Heart rate 88 /min Claudio Monroe [facility] 10-07-2023 09:45-0500 SaO2% (BldA) [Mass fraction] 100 % Claudio Monroe [facility] 10-07-2023 09:45-0500 Systolic blood pressure 178 mm[Hg] Claudio Monroe [facility] 10-07-2023 09:03-0500 Heart rate 65 /min Claudio Monroe [facility] 10-07-2023 09:03-0500 SaO2% (BldA) [Mass fraction] 98 % Claudio Monroe [facility] 10-07-2023 09:03-0500 Body temperature 97.52 [degF] Snyder Fer [facility] 10-07-2023 09:03-0500 Diastolic blood pressure 83 mm[Hg] Claudio Fer [facility] 10-07-2023 09:03-0500 Mean blood pressure 103 mm[Hg] Claudio Monroe [facility] 10-07-2023 09:03-0500 Systolic blood pressure 143 mm[Hg] Claudio Monroe [facility] 10-07-2023 09:03-0500 Respiratory rate 14 /min Claudio Monroe [facility] 09-22-2023 11:23-0500 Diastolic blood pressure 88 mm[Hg] Demar Trammell [facility] 09-22-2023 11:23-0500 Heart rate 60 /min Demarjorge Trammell [facility] 09-22-2023 11:23-0500 Mean blood pressure 105 mm[Hg] Demar Pradoner [facility] 09-22-2023 11:23-0500 Respiratory rate 14 /min Demar Trammell [facility] 09-22-2023 11:23-0500 Systolic blood pressure 138 mm[Hg] Demar Valeri [facility] 07-14-2023 09:26-0400 Diastolic blood pressure 78 mm[Hg] Vicky STANG [facility] 07-14-2023 09:26-0400 Mean blood pressure 101 mm[Hg] Vicky STANG [facility] 07-14-2023 09:26-0400 Systolic blood pressure 146 mm[Hg] Vicky STANG [facility] 07-14-2023 09:15-0400 Blood Pressure Location Vicky STANG [facility] 07-14-2023 09:15-0400 Diastolic blood pressure 82 mm[Hg] Vicky STANG [facility] 07-14-2023 09:15-0400 Heart rate 67 /min Vicky LAST [facility] 07-14-2023 09:15-0400 SaO2% (BldA) [Mass fraction] 98 % Vicky LAST [facility] 07-14-2023 09:15-0400 Systolic blood pressure 148 mm[Hg] Vicky LAST [facility] 06-30-2023 15:15-0400 Diastolic blood pressure 97 mm[Hg] Landon DOUGLAS [facility] 06-30-2023 15:15-0400 Mean blood pressure 123 mm[Hg] Landon DOUGLAS [facility] 06-30-2023 15:15-0400 Systolic blood pressure 174 mm[Hg] Landon DOGULAS [facility] 06-30-2023 15:05-0400 Blood Pressure Location Landon DOUGLAS [facility] 06-30-2023 15:05-0400 Diastolic blood pressure 98 mm[Hg] Landon DOUGLAS [facility] 06-30-2023 15:05-0400 Heart rate 80 /min Landon DOUGLAS [facility] 06-30-2023 15:05-0400 SaO2% (BldA) [Mass fraction] 99 % Landon DOUGLAS [facility] 06-30-2023 15:05-0400 Systolic blood pressure 166 mm[Hg] Landon DOUGLAS [facility] 06-08-2023 08:21-0400 Diastolic blood pressure 94 mm[Hg] Vicky Castillo [facility] 06-08-2023 08:21-0400 Heart rate 62 /min Vicky Castillo [facility] 06-08-2023 08:21-0400 Respiratory rate 16 /min Vicky Castillo [facility] 06-08-2023 08:21-0400 Systolic blood pressure 156 mm[Hg] Vicky Castillo [facility] 06-05-2023 10:45-0400 Diastolic blood pressure 70 mm[Hg] Prasad Infantee [facility] 06-05-2023 10:45-0400 Heart rate 70 /min Prasad Robbie [facility] 06-05-2023 10:45-0400 Mean blood pressure 97 mm[Hg] Prasad Robbie [facility] 06-05-2023 10:45-0400 Respiratory rate 20 /min Prasad Robbie [facility] 06-05-2023 10:45-0400 SaO2% (BldA) [Mass fraction] 96 % Prasad Robbie [facility] 06-05-2023 10:45-0400 Systolic blood pressure 152 mm[Hg] Prasad Robbie [facility] 06-05-2023 09:25-0400 Diastolic blood pressure 70 mm[Hg] rPasad Robbie [facility] 06-05-2023 09:25-0400 Heart rate 71 /min Prasad Robbie [facility] 06-05-2023 09:25-0400 Mean blood pressure 96 mm[Hg] Prasad Robbie [facility] 06-05-2023 09:25-0400 Respiratory rate 17 /min Prasad Robbie [facility] 06-05-2023 09:25-0400 SaO2% (BldA) [Mass fraction] 99 % Prasad Robbie [facility] 06-05-2023 09:25-0400 Systolic blood pressure 147 mm[Hg] Prasad Avalos [facility] 06-05-2023 08:54-0400 gluc 109 mg/dL Prasad Avalos [facility] 06-05-2023 08:54-0400 gluc Prasad Avalos [facility] 06-05-2023 08:47-0400 Body temperature 98.06 [degF] Prasad Avalos [facility] 06-05-2023 08:47-0400 Diastolic blood pressure 106 mm[Hg] Prasad Avalos [facility] 06-05-2023 08:47-0400 Heart rate 81 /min Prasad Avalos [facility] 06-05-2023 08:47-0400 Respiratory rate 20 /min Prasad Avalos [facility] 06-05-2023 08:47-0400 SaO2% (BldA) [Mass fraction] 97 % Prasad Avalos [facility] 06-05-2023 08:47-0400 Systolic blood pressure 173 mm[Hg] Prasad Avalos [facility] 04-28-2023 09:05-0400 Diastolic blood pressure 87 mm[Hg] Vicky LAST [facility] 04-28-2023 09:05-0400 Mean blood pressure 111 mm[Hg] Vickyjayden MCDOWELLG [facility] 04-28-2023 09:05-0400 Systolic blood pressure 160 mm[Hg] Vickyjayden MCDOWELLG [facility] 04-28-2023 08:55-0400 Blood Pressure Location Vickyjayden MCDOWELLG [facility] 04-28-2023 08:55-0400 Diastolic blood pressure 88 mm[Hg] Vicky LAST [facility] 04-28-2023 08:55-0400 Heart rate 66 /min Vicky LAST [facility] 04-28-2023 08:55-0400 SaO2% (BldA) [Mass fraction] 97 % Vicky LAST [facility] 04-28-2023 08:55-0400 Systolic blood pressure 153 mm[Hg] Vicky LAST [facility] 04-20-2023 13:54-0400 Diastolic blood pressure 89 mm[Hg] Demar Valeri [facility] 04-20-2023 13:54-0400 Diastolic blood pressure 84 mm[Hg] Demar Valeri [facility] 04-20-2023 13:54-0400 Heart rate 72 /min Demar Valeri [facility] 04-20-2023 13:54-0400 Heart rate 62 /min Demar Valeri [facility] 04-20-2023 13:54-0400 Mean blood pressure 112 mm[Hg] Demar Valeri [facility] 04-20-2023 13:54-0400 Respiratory rate 14 /min Demar Valeri [facility] 04-20-2023 13:54-0400 Systolic blood pressure 159 mm[Hg] Demar Valeri [facility] 04-20-2023 13:54-0400 Systolic blood pressure 147 mm[Hg] Demar Valeri [facility] 04-03-2023 10:40-0400 Diastolic blood pressure 62 mm[Hg] NILL [facility] 04-03-2023 10:40-0400 Heart rate 69 /min NILL [facility] 04-03-2023 10:40-0400 Respiratory rate 32 /min NILL [facility] 04-03-2023 10:40-0400 SaO2% (BldA) [Mass fraction] 96 % NILL [facility] 04-03-2023 10:40-0400 Systolic blood pressure 100 mm[Hg] NILL [facility] 04-03-2023 10:30-0400 Diastolic blood pressure 56 mm[Hg] NILL [facility] 04-03-2023 10:30-0400 Heart rate 65 /min NILL [facility] 04-03-2023 10:30-0400 Respiratory rate 20 /min NILL [facility] 04-03-2023 10:30-0400 SaO2% (BldA) [Mass fraction] 95 % NILL [facility] 04-03-2023 10:30-0400 Systolic blood pressure 93 mm[Hg] NILL [facility] 04-03-2023 10:25-0400 Diastolic blood pressure 59 mm[Hg] NILL [facility] 04-03-2023 10:25-0400 Heart rate 69 /min NILL [facility] 04-03-2023 10:25-0400 Respiratory rate 17 /min NILL [facility] 04-03-2023 10:25-0400 SaO2% (BldA) [Mass fraction] 94 % Michael ROLANDL [facility] 04-03-2023 10:25-0400 Systolic blood pressure 102 mm[Hg] NILL [facility] 04-03-2023 10:20-0400 Blood Pressure Location NILL [facility] 04-03-2023 10:15-0400 Blood Pressure Location NILL [facility] 04-03-2023 10:15-0400 Body temperature 96.8 [degF] NILL [facility] 04-03-2023 09:47-0400 Respiratory rate 18 /min Michael ROLANDL [facility] 04-03-2023 09:24-0400 Blood Pressure Location NILL [facility] 04-03-2023 09:24-0400 Body temperature 96.8 [degF] Michael ROLANDL [facility] 03-17-2023 11:37-0400 Heart rate 78 /min Demar Valeri [facility] 03-17-2023 11:37-0400 SaO2% (BldA) [Mass fraction] 98 % Demar Valeri [facility] 03-17-2023 11:37-0400 Diastolic blood pressure 63 mm[Hg] Demar Pradoner [facility] 03-17-2023 11:37-0400 Mean blood pressure 87 mm[Hg] Demar Pradoner [facility] 03-17-2023 11:37-0400 Systolic blood pressure 136 mm[Hg] Demar Valeri [facility] 03-17-2023 11:33-0400 Diastolic blood pressure 114 mm[Hg] Demar Valeri [facility] 03-17-2023 11:33-0400 Heart rate 91 /min Demar Valeri [facility] 03-17-2023 11:33-0400 Respiratory rate 14 /min Demar Valeri [facility] 03-17-2023 11:33-0400 SaO2% (BldA) [Mass fraction] 99 % Demar Valeri [facility] 03-17-2023 11:33-0400 Systolic blood pressure 156 mm[Hg] Demar Valeri [facility] 03-17-2023 10:56-0400 Heart rate 89 /min Demar Valeri [facility] 03-17-2023 10:56-0400 SaO2% (BldA) [Mass fraction] 100 % Demar Valeri [facility] 03-17-2023 10:56-0400 Diastolic blood pressure 87 mm[Hg] Demar Valeri [facility] 03-17-2023 10:56-0400 Mean blood pressure 104 mm[Hg] Demar Valeri [facility] 03-17-2023 10:56-0400 Systolic blood pressure 138 mm[Hg] Demar Valeri [facility] 03-17-2023 10:56-0400 Body temperature 98.06 [degF] Demar Valeri [facility] 03-17-2023 10:56-0400 Respiratory rate 12 /min Demar Valeri [facility] 02-23-2023 12:32-0400 Diastolic blood pressure 97 mm[Hg] Demar Valeri [facility] 02-23-2023 12:32-0400 Heart rate 62 /min Demar Valeri [facility] 02-23-2023 12:32-0400 Mean blood pressure 115 mm[Hg] Demar Valeri [facility] 02-23-2023 12:32-0400 Respiratory rate 12 /min Demar Valeri [facility] 02-23-2023 12:32-0400 Systolic blood pressure 150 mm[Hg] Demar Valeri [facility] 02-20-2023 13:22-0400 Blood Pressure Location NILL [facility] [place] 02-20-2023 13:22-0400 Diastolic blood pressure 84 mm[Hg] NILL [facility] [place] 02-20-2023 13:22-0400 Heart rate 72 /min NILL [facility] 02-20-2023 13:22-0400 Respiratory rate 16 /min NILL [facility] [place] 02-20-2023 13:22-0400 Systolic blood pressure 122 mm[Hg] NILL [facility] [place] 04-29-2022 09:28-0400 Blood Pressure Location Vicky JULYG [facility] 04-29-2022 09:28-0400 Diastolic blood pressure 71 mm[Hg] Vicky STANG [facility] 04-29-2022 09:28-0400 Heart rate 73 /min Vicky STANG [facility] 04-29-2022 09:28-0400 Respiratory rate 18 /min Vicky LAST [facility] 04-29-2022 09:28-0400 SaO2% (BldA) [Mass fraction] 99 % Vicky LAST [facility] 04-29-2022 09:28-0400 Systolic blood pressure 106 mm[Hg] Vicky LAST [facility] Encounters Encounter Date Encounter Type Care Provider Facility Start: 04-18-2025 End: 04-18-2025 Bamboo flowsheet Kenny Harrison [facility] Start: 04-18-2025 End: 04-18-2025 Bamboo flowsheet Kenny Harrison [facility] Start: 04-18-2025 End: 04-18-2025 ambulatory Kenny Harrison [facility] Comment on above: Other spondylosis wi th myelopathy, lumbar region (Primary Dx) Start: 04-14-2025 End: 04-14-2025 Bamboo flowsheet Kenny Harrison [facility] Start: 04-14-2025 End: 04-14-2025 Bamboo flowsheet Kenny Bangura [facility] Start: 04-14-2025 End: 04-14-2025 ambulatory Kenny Harrison [facility] Comment on above: Other spondylosis wi th myelopathy, lumbar region (Primary Dx) Start: 04-12-2025 End: 04-12-2025 ambulatory Kenny Harrison [facility] Comment on above: Other spondylosis wi th myelopathy, lumbar region (Primary Dx) Start: 04-10-2025 End: 04-10-2025 Bamboo flowsheet Kenny Harrison [facility] Start: 04-10-2025 End: 04-10-2025 Bamboo flowsheet Kenny Harrison [facility] Start: 04-10-2025 End: 04-10-2025 ambulatory Kenny Harrison [facility] Comment on above: Other spondylosis wi th myelopathy, lumbar region (Primary Dx) Start: 04-07-2025 End: 04-07-2025 Bamboo flowsheet Yarelis Brink [facility] Start: 04-07-2025 End: 04-07-2025 Bamboo flowsheet Yarelis Brink [facility] Start: 04-07-2025 End: 04-07-2025 ambulatory Yarelis Brink [facility] Comment on above: Other spondylosis wi th myelopathy, lumbar region (Primary Dx) Start: 04-05-2025 End: 04-05-2025 Bamboo flowsheet Sofi Pyle PT [facility] Start: 04-05-2025 End: 04-05-2025 Bamboo flowsheet Sofi Pyle PT [facility] Start: 04-05-2025 End: 04-05-2025 ambulatory Sofi Pyle PT [facility] Comment on above: Other spondylosis wi th myelopathy, lumbar region (Primary Dx) Start: 04-03-2025 End: 04-03-2025 ambulatory Sofi Pyle PT [facility] Comment on above: Other spondylosis wi th myelopathy, lumbar region (Primary Dx) Start: 04-03-2025 End: 04-03-2025 Bamboo flowsheet Sofi Pyle PT [facility] Start: 04-03-2025 End: 04-03-2025 Bamboo flowsheet Sofi Pyle PT [facility] Start: 03-31-2025 End: 03-31-2025 Bamboo flowsheet Yarelis Brink [facility] Start: 03-31-2025 End: 03-31-2025 Bamboo flowsheet Yarelis Brink [facility] Start: 03-31-2025 End: 03-31-2025 ambulatory Yarelis Brink [facility] Comment on above: Other spondylosis wi th myelopathy, lumbar region (Primary Dx) Start: 03-29-2025 End: 03-29-2025 Bamboo flowsheet Sofi Pyle PT [facility] Start: 03-29-2025 End: 03-29-2025 Bamboo flowsheet Sofi Pyle PT [facility] Start: 03-29-2025 End: 03-29-2025 ambulatory Sofi Pyle PT [facility] Comment on above: Other spondylosis wi th myelopathy, lumbar region (Primary Dx) Start: 03-27-2025 End: 03-27-2025 Bamboo flowsheet Sofi Pyle PT [facility] Start: 03-27-2025 End: 03-27-2025 Bamboo flowsheet Sofi Pyle PT [facility] Start: 03-27-2025 End: 03-27-2025 ambulatory Sofi Pyle PT [facility] Comment on above: Other spondylosis wi th myelopathy, lumbar region (Primary Dx) Start: 03-24-2025 End: 03-24-2025 Bamboo flowsheet Kenny Bangura [facility] Start: 03-24-2025 End: 03-24-2025 Bamboo flowsheet Kenny Bangura [facility] Start: 03-24-2025 End: 03-24-2025 ambulatory Kenny Bangura [facility] Comment on above: Other spondylosis wi th myelopathy, lumbar region (Primary Dx) Start: 03-22-2025 End: 03-22-2025 Bamboo flowsheet Kennytangela Bangura [facility] Start: 03-22-2025 End: 03-22-2025 Bamboo flowsheet Kenny Bangura [facility] Start: 03-22-2025 End: 03-22-2025 ambulatory Kenny Bangura [facility] Comment on above: Other spondylosis wi th myelopathy, lumbar region (Primary Dx) Start: 03-20-2025 End: 03-20-2025 Bamboo flowsheet Kennytangela Bangura [facility] Start: 03-20-2025 End: 03-20-2025 Bamboo flowsheet Kennytangela Bangura [facility] Start: 03-20-2025 End: 03-20-2025 ambulatory Kenny Bangura [facility] Comment on above: Other spondylosis wi th myelopathy, lumbar region (Primary Dx) Start: 03-17-2025 End: 03-17-2025 Bamboo flowsheet Kenny Bangura [facility] Start: 03-17-2025 End: 03-17-2025 Bamboo flowsheet Kenny Bangura [facility] Start: 03-17-2025 End: 03-17-2025 ambulatory Kenny Bangura [facility] Comment on above: Other spondylosis wi th myelopathy, lumbar region (Primary Dx) Start: 03-14-2025 End: 03-14-2025 ambulatory Kenny Bangura [facility] Comment on above: Other spondylosis wi th myelopathy, lumbar region (Primary Dx) Start: 03-14-2025 End: 03-14-2025 Bamboo flowsheet Kenny Bangura [facility] Start: 03-14-2025 End: 03-14-2025 Bamboo flowsheet Kenny Bangura [facility] Start: 03-10-2025 End: 03-10-2025 ambulatory SOFI PAULA Not Available Start: 01-23-2025 End: 01-23-2025 ambulatory MD Radu Kurtz Facility:[facility] Start: 01-23-2025 End: 01-23-2025 Patient encounter procedure Baldomero Hurtado [facility] Start: 01-17-2025 End: 01-17-2025 Patient encounter procedure Vick Mcghee MD Work Phone: [facility] [address] Work Phone: Start: 01-17-2025 End: 01-17-2025 ambulatory Vick Mcghee MD Work Phone: [facility] Work Phone: Start: 01-12-2025 End: 01-14-2025 Pre-admission assessment Lokesh Mcqueen [facility] Start: 12-21-2024 End: 12-21-2024 ambulatory ANTIONETTE YANG Not Available Start: 12-19-2024 End: 12-19-2024 ambulatory Lokesh Mcqueen Facility:[facility] Start: 12-19-2024 End: 12-19-2024 Patient encounter procedure Lokesh Mcqueen [facility] Start: 12-14-2024 End: 12-14-2024 [...] Patient encounter procedure Antionette LOPEZ Work Phone: [facility] Start: 11-28-2024 End: 11-28-2024 Periodic preventive med est patient 65yrs& older Antionette LOPEZ Work Phone: [facility] Comment on above: Well woman exam with routine gynecological exam; Osteoporosis, post-menopausal (CMS/HCC); Breast cancer screening by mammogram; Pelvic pain in female Start: 11-28-2024 End: 11-28-2024 ambulatory ANTIONETTE YANG Not Available Start: 11-15-2024 End: 11-16-2024 ambulatory Qinganefo OJUKWU Facility:[facility] Start: 11-15-2024 Emergency department patient visit Darshan Laughlin Facility:[facility] Start: 10-05-2024 End: 10-05-2024 ambulatory XXXX NONE Facility:[facility] Start: 10-05-2024 End: 10-05-2024 Patient encounter procedure Lokesh Mcqueen [facility] Start: 09-02-2024 End: 09-02-2024 ambulatory Vick Mcghee MD Work Phone: [facility] Work Phone: Start: 09-02-2024 End: 09-02-2024 Departed Referred Vick Mcghee MD Work Phone: [facility] Start: 08-19-2024 End: 08-19-2024 ambulatory SAM KAISER Facility:[facility] Start: 08-19-2024 End: 08-19-2024 Patient encounter procedure SAM KAISER [facility] Start: 08-11-2024 End: 08-11-2024 Bamboo flowsheet Sydnie Villalobos DPM Work Phone: [facility] Start: 08-11-2024 End: 08-11-2024 Bamboo flowsheet Sydnie Villalobos DPM Work Phone: [facility] Start: 08-11-2024 End: 08-11-2024 Office outpatient visit 15 minutes Sydnie Villalobos DPM Work Phone: [facility] Comment on above: Pes valgus, acquired , right (Primary Dx); Pes valgus, acquired, left; Gastrocnemius equinus of right lower extremity; Gastrocnemius equinus of left lower extremity; Pain in both feet; Cramping of feet; Bilateral leg cramps; 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 Start: 08-11-2024 End: 08-11-2024 ambulatory SYDNIE VILLALOBOS Not Available Start: 08-11-2024 ambulatory [facility] Ambulatory [facility] Start: 07-13-2024 End: 07-13-2024 ambulatory Willie Kaur Facility:[facility] Start: 07-13-2024 End: 07-13-2024 Patient encounter procedure Willie Kaur [facility] Start: 07-06-2024 End: 07-06-2024 ambulatory Claudio Monroe Facility:[facility] Start: 07-06-2024 End: 07-06-2024 Patient encounter procedure Claudio Monroe [facility] Start: 07-06-2024 End: 07-06-2024 ambulatory Vick Mcghee Facility:[facility] Start: 07-06-2024 End: 07-06-2024 Patient encounter procedure Claudio Monroe [facility] Start: 05-08-2024 End: 05-08-2024 Emergency department patient visit Nelson Solares [facility] Start: 12-18-2023 End: 12-18-2023 ambulatory Willie Kaur Facility:[facility] Start: 12-18-2023 End: 12-18-2023 Patient encounter procedure Willie Kaur [facility] Start: 12-02-2023 Clinisync Result [...] woman exam Start: 11-20-2023 End: 11-20-2023 ambulatory FRANCO Castillo Facility:[facility] Start: 11-20-2023 End: 11-20-2023 Pain Management Vicky Castillo [facility] Start: 11-17-2023 End: 11-17-2023 ambulatory Landon DOUGLAS Facility:[facility] Start: 11-17-2023 End: 11-17-2023 Patient encounter procedure Landon DOUGLAS [facility] Start: 10-26-2023 End: 10-26-2023 Patient encounter procedure Vicky Castillo [facility] Start: 10-26-2023 End: 10-26-2023 ambulatory Vicky Castillo Facility:[facility] Start: 10-26-2023 End: 10-26-2023 Pain Management Vicky Castillo [facility] Start: 10-07-2023 End: 10-07-2023 ambulatory Claudio Monroe Facility:[facility] Start: 10-07-2023 End: 10-07-2023 Pain Management Claudio Monroe [facility] Start: 09-22-2023 End: 09-22-2023 ambulatory Demar Trammell Facility:[facility] Start: 09-22-2023 End: 09-22-2023 Pain Management Demar Trammell [facility] Start: 08-06-2023 End: 08-06-2023 ambulatory Barry Husain Facility:[facility] Start: 08-06-2023 End: 08-06-2023 Patient encounter procedure Barry Husain [facility] Start: 07-23-2023 End: 07-23-2023 ambulatory Barry Husain Facility:[facility] Start: 07-14-2023 End: 07-14-2023 Hypertension screening status Vicky LAST [facility] Start: 07-14-2023 End: 07-14-2023 Patient encounter procedure Vicky LAST [facility] Start: 06-30-2023 End: 06-30-2023 Patient encounter procedure Landon DOUGLAS [facility] Start: 06-08-2023 End: 06-08-2023 Pain Management Vicky Castillo [facility] Start: 06-05-2023 End: 06-05-2023 Emergency department patient visit Prasad Avalos [facility] Start: 05-04-2023 End: 05-04-2023 Pain Management Vicky Castillo [facility] Start: 04-28-2023 End: 04-28-2023 Patient encounter procedure Vicky LAST [facility] Start: 04-20-2023 End: 04-20-2023 Pain Management Demar Mel Valeri [facility] Start: 04-15-2023 End: 04-15-2023 Patient encounter procedure R NILL [facility] [place] Start: 04-03-2023 End: 04-03-2023 Patient encounter procedure R NILL [facility] Start: 03-17-2023 End: 03-17-2023 Pain Management Demar Trammell [facility] Start: 03-03-2023 End: 03-04-[address] VICK MCGHEE . Facility:[facility] Start: 02-23-2023 End: 02-23-2023 Pain Management Demar Pradoner [facility] Start: 02-20-2023 End: 02-20-2023 Patient encounter procedure Michael Billingsley [facility] Start: 02-09-2023 End: 02-10-[address] VICK MCGHEE . Facility:[facility] Start: 11-05-2022 End: 11-05-[address] VICK MCGHEE . Facility:[facility] Start: 10-27-2022 End: 10-27-2022 Patient encounter procedure Vicky Priyank LAST [facility] Start: 10-22-2022 End: 10-23-[address] JUAN CARLOS NARVAEZ . Facility:[facility] Start: 09-24-2022 End: 09-24-[address] JUAN CARLOS NARVAEZ . Facility:[facility] Start: 04-29-2022 End: 04-29-2022 Patient encounter procedure Vicky LAST [facility] Start: 12-05-2017 End: 04-15-2018 Ambulatory Adryan Yoon Facility:[facility] Procedures Date Procedure Procedure Detail [...] Start: 11-30-2023 [facility] CMP (CMP) (FOR REMOTE [facility] USE) Antionette LOPEZ Work Phone: Start: 11-30-2023 [...] Screening for malign ant neoplasm of colon [facility] Start: 12-14-2025 Screening for malign ant neoplasm of breast Mammogram [facility] Start: 12-04-2025 End: 12-04-2025 Patient encounter procedure 12/04/2025 10:00 AM EST Office Visit [facility] [address] [place] [address] Antionette Yang PA [address] [place] [address] [facility] Start: 06-19-2025 Influenza vaccination [facility] Start: 05-02-2025 End: 05-02-2025 ambulatory 05/02/2025 9:30 AM EDT Treatment [facility] [address] [facility] [address] [place] [address] Kenny Bangura, [facility] Start: 04-26-2025 End: 04-26-2025 ambulatory 04/26/2025 9:00 AM EDT Treatment [facility] [address] [facility] [address] [place] [address] Kenny Bangura, [facility] Start: 04-25-2025 End: 04-25-2025 ambulatory 04/25/2025 9:30 AM EDT Treatment [facility] [address] [facility] [address] [place] [address] Sofi Pyle, PT [facility] Start: 04-18-2025 End: 04-18-2025 ambulatory [facility] Start: 04-14-2025 End: 04-14-2025 ambulatory [facility] Start: 04-12-2025 End: 04-12-2025 ambulatory [facility] Start: 04-10-2025 End: 04-10-2025 ambulatory 04/10/2025 8:30 AM EDT Treatment [facility] [address] [facility] [address] [place] [address] Kenny Bangura, [facility] Start: 04-07-2025 End: 04-07-2025 ambulatory [facility] Start: 04-05-2025 End: 04-05-2025 ambulatory 04/05/2025 11:00 AM EDT Treatment [facility] [address] [facility] [address] [place] [address] Sofi Pyle, PT [facility] Start: 04-03-2025 End: 04-03-2025 ambulatory 04/03/2025 2:00 PM EDT Treatment [facility] [address] [facility] [address] [place] [address] Sofi Pyle, PT [facility] Start: 03-31-2025 End: 03-31-2025 ambulatory [facility] Start: 03-29-2025 End: 03-29-2025 ambulatory 03/29/2025 11:00 AM EDT Treatment [facility] [address] [facility] [address] [place] [address] Sofi Pyle, PT [facility] Start: 03-27-2025 End: 03-27-2025 ambulatory 03/27/2025 12:00 PM EDT Treatment [facility] [address] [facility] [address] [place] [address] Sofi Pyle, PT [facility] Start: 03-24-2025 End: 03-24-2025 ambulatory 03/24/2025 12:00 PM EDT Treatment [facility] [address] [facility] [address] [place] [address] Kenny Bangura, [facility] Start: 03-22-2025 End: 03-22-2025 ambulatory 03/22/2025 12:00 PM EDT Treatment [facility] [address] [facility] [address] [place] [address] Kenny Bangura, [facility] Start: 03-20-2025 End: 03-20-2025 ambulatory [facility] Comment on above: Arrived Start: 03-17-2025 End: 03-17-2025 ambulatory [facility] Comment on above: Arrived Start: 03-14-2025 End: 03-14-2025 ambulatory 03/14/2025 3:00 PM EDT Treatment [facility] [address] [facility] [address] [place] [address] Kenny Bangura, [facility] Arrived [facility] Comment on above: Arrived Start: 01-17-2025 Aldolase measurement [facility] Start: 01-17-2025 Antibody to Scl-70 measurement [facility] Start: 01-17-2025 Hemolytic complement CH50 level [facility] Start: 01-17-2025 POLYSOMNOGRAPHIC TECHNOLOGIST antibody measurement [facility] Start: 01-17-2025 [facility] Start: 12-21-2024 End: 12-21-2024 Professional / ancillary services management 12/21/2024 9:30 AM EST Ancillary Procedure [facility] [address] [place] [id number] [facility] Start: 11-30-2024 Screening for malign ant neoplasm of breast Mammogram [facility] Start: 11-28-2024 End: 11-28-2025 DXA Skeletal system Views for bone density DEXA bone density Imaging Routine Osteoporosis, post-menopausal ([facility]) Expected: 11/28/2024 (Approximate), Expires: 11/28/2025 [facility] Comment on above: Expected: 11/28/2024 (Approximate), Expires: 11/28/2025 Start: 11-28-2024 End: 01-26-2026 MG Breast - bilateral Screening Bilateral screening mammogram Imaging Routine Breast cancer screening by mammogram Expected: 11/28/2024 (Approximate), Expires: 01/26/2026 [facility] Work Phone: Comment on above: Expected: 11/28/2024 (Approximate), Expires: 01/26/2026 Start: 11-28-2024 End: 11-28-2025 US Pelvis US pelvis Imaging Routine Pelvic pain in female Expected: 11/28/2024 (Approximate), Expires: 11/28/2025 [facility] Comment on above: Expected: 11/28/2024 (Approximate), Expires: 11/28/2025 Start: 11-28-2024 End: 11-28-2024 Patient encounter procedure [facility] Comment on above: Arrived Start: 08-11-2024 End: 08-11-2024 Patient encounter procedure 08/11/2024 11:00 AM EDT Office Visit [facility] [address] [place] [id number] Sydnie Villalobos, DPM [address] [place] [address] Arrived [facility] Comment on above: Arrived Start: 06-19-2024 Influenza vaccination Influenza Vacc ine (#1) [facility] Start: 11-25-2023 End: 11-25-2024 Lipid 1996 panel - Serum or Plasma Lipid panel Lab Routine Well woman exam with routine gynecological exam Well woman exam Expected: 11/25/2023 (Approximate), Expires: 11/25/2024 [facility] Comment on above: Expected: 11/25/2023 (Approximate), Expires: 11/25/2024 Start: 11-25-2023 End: 01-23-2025 MG Breast - bilateral Screening Bilateral screening mammogram Imaging Routine Breast cancer screening by mammogram Expected: 11/25/2023, Expires: 01/23/2025 [facility] Work Phone: Comment on above: Expected: 11/25/2023 , Expires: 01/23/2025 Start: 10-22-2023 Screening for malign ant neoplasm of breast Mammogram [facility] Start: 06-19-2023 Influenza vaccination Influenza Vacc ine (#1) [facility] Start: 2022 Pneumococcal Vaccine : 65+ Years (1 - PCV) Pneumococcal Vaccine: 65+ Years (1 - PCV) [facility] Start: 2022 Pneumococcal Vaccine : 65+ Years (1 of 1 - PCV) Pneumococcal Vaccine: 65+ Years (1 of 1 - PCV) [facility] Start: 2007 Pneumococcal Vaccine : 65+ Years (1 of 1 - PCV) Pneumococcal Vaccine: 65+ Years (1 of 1 - PCV) [facility] Start: 1957 Screening for malign ant neoplasm of colon [facility] Adenosine monophosphate.cyclic [Moles/volume] in Serum or Plasma [facility] Beta 2 glycoprotein 1 IgG Ab [Units/volume] in Serum [facility] Beta 2 glycoprotein 1 IgM Ab [Units/volume] in Serum [facility] Cardiolipin IgA Ab [Units/volume] in Serum by Immunoassay [facility] Cardiolipin IgG Ab [Units/volume] in Serum by Immunoassay [facility] Cardiolipin IgM Ab [Units/volume] in Serum by Immunoassay [facility] CBC W Auto Different ial panel - Blood CBC and differential Lab Routine Well woman exam with routine gynecological exam Well woman exam Ordered: 11/25/2023 [facility] Comment on above: Ordered: 11/25/2023 Centromere protein B Ab [Units/volume] in Serum [facility] Chromatin Ab [Units/volume] in Serum or Plasma [facility] Complement C3 [Mass/volume] in Serum or Plasma [facility] Complement C4 [Mass/volume] in Serum or Plasma [facility] Comprehensive metabo lic 2000 panel - Serum or Plasma Comprehensive metabolic panel Lab Routine Well woman exam with routine gynecological exam Well woman exam Ordered: 11/25/2023 [facility] Comment on above: Ordered: 11/25/2023 Hemoglobin A1c measurement Hemoglobin A1c Lab Routine Well woman exam with routine gynecological exam Well woman exam Ordered: 11/25/2023 [facility] Comment on above: Ordered: 11/25/2023 Histone IgG Ab [Units/volume] in Serum by Immunoassay [facility] Homogenous nuclear A b pattern [Titer] in Serum [facility] Chio-1 extractable nuc lear Ab [Units/volume] in Serum [facility] Lupus anticoagulant [Interpretation] in Platelet poor plasma [facility] Nuclear Ab [Titer] i n Serum [facility] Reagin Ab [Presence] in Serum by RPR [facility] Rheumatoid factor [Units/volume] in Serum or Plasma [facility] Sjogrens syndrome-A extractable nuclear Ab [Units/volume] in Serum [facility] Sjogrens syndrome-B extractable nuclear Ab [Units/volume] in Serum [facility] Anders extractable nu clear Ab [Units/volume] in Serum [facility] THIN PREP TIS PAP AN D HR HPV DNA THIN PREP TIS PAP AND HR HPV DNA Pathology and Cytology Routine Well woman exam with routine gynecological exam Ordered: 11/25/2023 [facility] Comment on above: Ordered: 11/25/2023 THIN PREP TIS PAP AN D HR HPV DNA THIN PREP TIS PAP AND HR HPV DNA Pathology and Cytology Routine Well woman exam with routine gynecological exam Ordered: 11/28/2024 [facility] Comment on above: Ordered: 11/28/2024 Thrombin time [facility] Thyroglobulin Ab [Units/volume] in Serum or Plasma [facility] Thyroperoxidase Ab [Units/volume] in Serum or Plasma [facility] Thyrotropin [Units/volume] in Serum or Plasma TSH Lab Routine Well woman exam with routine gynecological exam Well woman exam Ordered: 11/25/2023 [facility] Comment on above: Ordered: 11/25/2023 Immunizations Immunization Date Immunization Notes Care Provider Geovanna sommer 07-23-2021 SARS-CoV-2 (COVID-19 ) mRNA BNT-162b2 vax [facility] 07-02-2021 SARS-CoV-2 (COVID-19 ) mRNA BNT-162b2 vax [facility] 02-22-2021 zoster vaccine recombinant Antionette LOPEZ Work Phone: [facility] 11-12-2020 zoster vaccine recombinant Antionette Yang PA Work Phone: [facility] NEGATED: Highlighted row has not occurred!12-25-2021 influenza [facility], [facility] NEGATED: Highlighted row has not occurred!10-16-2021 influenza virus vaccine, unspecified formulation Vickyjayden MCDOWELLVika [facility] Payers Date Payer Category Payer Self-pay 2022 Private Health Insurance [employer] [place] [id number] 2022 Unknown [id number] [id number]. [id number] 2022 Medicare [id number]. 1.13.693.2. 7.3.419250.315 2017 Unknown [id number] 1959 Medicare [id number] 1959 Unknown [id number] 1957 Unknown [id number] 2.16.840.1.796779.3.579.2. 593 1957 Unknown [id number] 2.16.840.1.587686.3.579.2. 59 1957 Unknown [id number] 2.16.840.1.348169.3.579.2. 593 1957 Unknown [id number] 2.16.840.1.247381.3.579.2. 59 1957 Unknown [id number] 2.16.840.1.839545.3.579.2. 593 1957 Unknown [id number] 2.16.840.1.340244.3.579.2. 727 1957 Unknown [id number] 2.16.840.1.185450.3.579.2. 727 1957 Unknown [id number] 2.16.840.1.415936.3.579.2. 727 1957 Unknown [id number] 2.16.840.1.768599.3.579.2. 727 1957 Unknown [id number] 2.16.840.1.560806.3.579.2. 727 1957 Unknown [id number] 2.16.840.1.972322.3.579.2. 727 1957 Unknown [id number] 2.16.840.1.049072.3.579.2. 72 1957 Unknown [id number] 2.16.840.1.125956.3.579.2. 727 1957 Unknown [id number] 2.16.840.1.945172.3.579.2. 72 1957 Unknown [id number] 2.16.840.1.024361.3.579.2. 72 1957 Unknown [id number] 2.16.840.1.117455.3.579.2 1957 Unknown [id number] 2.16.840.1.653396.3.579.2. 72 1957 Unknown [id number] 2.16.840.1.984828.3.579.2. 1286 1957 Unknown [id number] 2.16.840.1.683681.3.579.2 72 1957 Unknown [id number] 2.16.840.1.026680.3.579.2 1957 Unknown [id number] 2.16.840.1.052618.3.579.2 1957 Unknown [id number] 2.16.840.1.283115.3.579.2 1957 Unknown [id number] 2.16.840.1.638130.3.579.2 1957 Unknown [id number] 2.16.840.1.235715.3.579.2 1957 Unknown [id number] 2.16.840.1.732597.3.579.2 1957 Unknown [id number] 2.16.840.1.661661.3.579.2 1957 Unknown [id number] 2.16.840.1.678630.3.579.2 1957 Unknown [id number] 2.16.840.1.033933.3.579.2 1957 Unknown [id number] 2.16.840.1.401985.3.579.2 1957 Unknown [id number] 2.16.840.1.906297.3.579.2. 1259 1957 Unknown [id number] 2.16.840.1.237738.3.579.2. 1259 1957 Unknown [id number] 2.16.840.1.058692.3.579.2. 1259 1957 Unknown [id number] 2.16.840.1.107604.3.579.2. 125 1957 Unknown [id number] 2.16.840.1.980554.3.579.2. 125 1957 Unknown [id number] 2.16.840.1.738332.3.579.2. 125 1957 Unknown [id number] 2.16.840.1.427438.3.579.2. 125 1957 Unknown [id number] 2.16.840.1.718355.3.579.2. 125 1957 Unknown [id number] 2.16.840.1.543665.3.579.2. 125 1957 Unknown [id number] 2.16.840.1.937924.3.579.2. 125 1957 Unknown [id number] 2.16.840.1.067592.3.579.2. 125 1957 Unknown [id number] 2.16.840.1.282126.3.579.2. 125 1957 Unknown [id number] 2.16.840.1.631563.3.579.2. 125 1957 Unknown [id number] 2.16.840.1.341732.3.579.2. 125 1957 Unknown [id number] 2.16.840.1.102662.3.579.2. 125 1957 Unknown [id number] 2.16.840.1.678938.3.579.2. 125 1957 Unknown [id number] 2.16.840.1.486115.3.579.2. 1259 1957 Unknown [id number] 2.16.840.1.131003.3.579.2. 1259 1957 Unknown [id number] 2.16.840.1.611597.3.579.2. 1259 Medicaid [id number] Unknown MMO [id number] Unknown [place] [id number] Unknown [id number] 2.16.840.1.976692.3.579.2. 531 Unknown [id number] 2.0.1.294190.3.579.2. 531 Social History Date Type Detail Facility Start: 12-25-2021 End: 05-20-2023 Tobacco smoking status Never smoked tobacco (finding) [facility] Comment on above: Denies. Start: 11-24-2023 End: 08-11-2024 Sex Assigned At Female [facility] Tobacco smoking status Never [facility] Comment on above: Denies. Tobacco [facility] Comment on above: denies Tobacco smoking status [facility] Start: 05-20-2023 Tobacco use and exposure [...] day, monthly or less; Caffeine: 1-2 cups/day [facility] Start: 1955 Sex Assigned At Not on file N [facility] Tobacco smoking stat [facility] Unknown if ever smoked [facility] Work Phone: Start: 09-18-2019 End: 09-03-2024 Sex Female (finding) [facility] Start: 1955 Sex Assigned At Female F [facility] Functional Status Date Assessment Result Facility 01-23-2025 Functional Status N/A [facility] 10-05-2024 Functional Status N/A [facility] 08-19-2024 Functional Status N/A [facility] 07-13-2024 Functional Status N/A [facility] 07-06-2024 Functional Status N/A [facility] 05-08-2024 Functional Status N/A [facility] 12-18-2023 Functional Status No [facility] 11-20-2023 Functional Status N/A [facility] 11-17-2023 Functional Status No [facility] 10-26-2023 Functional Status N/A [facility] 10-07-2023 Functional Status N/A [facility] 09-22-2023 Functional Status N/A [facility] 07-14-2023 Functional Status No [facility] 06-30-2023 Functional Status No [facility] 06-08-2023 Functional Status N/A [facility] 06-05-2023 Functional Status N/A [facility] 05-04-2023 Functional Status N/A [facility] 04-28-2023 Functional Status No [facility] 04-20-2023 Functional Status N/A [facility] 04-03-2023 Functional Status N/A [facility] 03-17-2023 Functional Status N/A [facility] 02-23-2023 Functional Status N/A [facility] 02-20-2023 Functional Status N/A [facility] 04-29-2022 Functional Status N/A [facility] Clinical Notes 10-08-2021 to 04-05-2025 Sofi Pyle, PT - 04/05/2025 11:00 AM Bobby Pyle, PT - 04/03/2025 2:00 PM Bobby Pyle, PT - 03/29/2025 11:00 AM Bobby Pyle, PT - 03/27/2025 12:00 PM EDT Note Date & Type Note Facility 04-05-2025 History of Present illness Narrative Images from the original note were not included. Physical Therapy Treatment Visit Patient Name: Gladys Agarwal Today's Date: 04/05/2025 Encounter Diagnoses Name Primary? Other spondylosis with myelopathy, lumbar region Yes Visit number: 11 Timed Code Treatment Minutes: 45 minutes Total Treatment Time: 60 minutes Time In: 1100 Time Out: 1202 History: Pt underwent lumbar surgery on January [...] 10 years prior to surgery, states she is currently without left LE pain. Pt states she was wearing brace initially but now only has to wear if walking long distances. Precautions: [place] Subjective: Pt states her back is feeling a bit better; can tell she is still pretty weak. Pain: 5/10. Objective: PT Evaluation (03/10/2025) LUMBAR [...] and Scar mobilization as needed. Therapeutic Exercise: (45 minutes) Strength, Endurance, Flexibility, ROM, HEP, Neural Mobilization, Power, and Core Stability as needed. Pt performed exercises per grid to increase core and bilateral LE strength. Therapeutic Activity: Exercises to improve dynamic activities, functional tasks, functional mobility to return to prior activity level as needed. Neuromuscular re-education: () Balance Training, Muscle Facilitation, Dynamic Stability, Core Stabilization, and Blood Flow Restriction Training (BFRT) as needed. Modalities: (15 minutes) IFC/HP to left low back pain and buttock in supine for pain. . Assessment: Pt has completed 11 PT sessions following lumbar surgery. Cueing during exercises for proper form and technique. Sitting rest breaks given as needed due to pain and reports of LE fatigue. Will continue to progress as able. Outcome Measure: Back Index: 16/50 Rehab Diagnosis: low back pain, bilateral LE weakness, decrease mobility, difficulty walking Short Term Goal: To be met in 2 weeks Goal 1: Pt to be instructed in home exercise program. - met [employer] Goals: To be met in 10 weeks [...] POC medically necessary. Please sign below. Date: documented in this encounter [facility] 04-03-2025 History of Present illness Narrative Images from the original note were not included. Physical Therapy Treatment Visit / Progress Note Patient Name: Gladys Agarwal Today's Date: 04/03/2025 Encounter Diagnoses Name Primary? Other spondylosis with myelopathy, lumbar region Yes Visit number: 10 Timed Code Treatment Minutes: 42 minutes Total Treatment Time: 57 minutes Time In: 1400 Time Out: 1500 History: Pt underwent lumbar surgery on January [...] 10 years prior to surgery, states she is currently without left LE pain. Pt states she was wearing brace initially but now only has to wear if walking long distances. Precautions: [place] Subjective: Pt states her left low back is still pretty sore. States most pain is when getting in and out of her car and sitting. Overall: better than it has been. Pain: 5/10. Objective: PT Evaluation (03/10/2025) LUMBAR [...] and Scar mobilization as needed. Therapeutic Exercise: (42 minutes) Strength, Endurance, Flexibility, ROM, HEP, Neural Mobilization, Power, and Core Stability as needed. Pt performed exercises per grid to increase core and bilateral LE strength. Therapeutic Activity: Exercises to improve dynamic activities, functional tasks, functional mobility to return to prior activity level as needed. Neuromuscular re-education: () Balance Training, Muscle Facilitation, Dynamic Stability, Core Stabilization, and Blood Flow Restriction Training (BFRT) as needed. Modalities: (15 minutes) IFC/CP to left low back pain and buttock in right SL for pain. . Assessment: Pt has completed 10 PT sessions following lumbar surgery. Pt ambulates without use of device. Strength left hip 4-/5, right hip 4/5. Five Time Sit to Stands: 13.56 seconds with arms across chest. TUG without device: 9.34 seconds and 7.23 seconds. Back Index Score 13/50. Will continue to progress as pt tolerates. Outcome Measure: Back Index: 16/50 Rehab Diagnosis: low back pain, bilateral LE weakness, decrease mobility, difficulty walking Short Term Goal: To be met in 2 weeks Goal 1: Pt to be instructed in home exercise program. - met [facility] Goals: To be met in 10 weeks [...] POC medically necessary. Please sign below. Date: documented in this encounter [facility] 03-29-2025 History of Present illness Narrative Images from the original note were not included. Physical Therapy Treatment Visit Patient Name: Gladys Agarwal Today's Date: 03/29/2025 Encounter Diagnoses Name Primary? Other spondylosis with myelopathy, lumbar region Yes Visit number: 8 Timed Code Treatment Minutes: 39 minutes Total Treatment Time: 54 minutes Time In: 1100 Time Out: 1156 History: Pt underwent lumbar surgery on January [...] 10 years prior to surgery, states she is currently without left LE pain. Pt states she was wearing brace initially but now only has to wear if walking long distances. Precautions: [place] Subjective: Pt states her left low back is still pretty sore. States most pain is when getting in and out of her car. States she is worried that she has been over doing it. Pain: 5/10 Objective: PT Evaluation (03/10/2025) LUMBAR SPINE AROM: [...] and Scar mobilization as needed. Therapeutic Exercise: (39 minutes) Strength, Endurance, Flexibility, ROM, HEP, Neural Mobilization, Power, and Core Stability as needed. Pt performed exercises per grid to increase core and bilateral LE strength. Including Nustep x10 minutes [place] Level 3.5 with HP to low back. Therapeutic Activity: Exercises to improve dynamic activities, functional tasks, functional mobility to return to prior activity level as needed. Neuromuscular re-education: () Balance Training, Muscle Facilitation, Dynamic Stability, Core Stabilization, and Blood Flow Restriction Training (BFRT) as needed. Modalities: IFC/CP to left low back pain and buttock in right SL for pain. . Assessment: Pt has completed 8 PT sessions following lumbar surgery. Held several standing exercises this date due to complaints of pain. Added IFC this date to address pain following exercises. Will continue to progress as pt tolerates. Outcome Measure: Back Index: 16/50 Rehab Diagnosis: low back pain, bilateral LE weakness, decrease mobility, difficulty walking Short Term Goal: To be met in 2 weeks Goal 1: Pt to be instructed in home exercise program. [employer] Goals: To be met in 10 weeks Goal 1: Pt to report independence and compliance with home program. Goal 2: Pt to report pain no greater than 2/10 with function tasks, ADL's, and work related activities. Goal 3: Pt to achieve 4-/5 strength bilateral hip abduction to assist with functional activities. Goal 4: Pt to complete 5 sit to stands with arms across chest in less than 14.0 seconds indicating improved functional strength and endurance. Goal 5: Pt to completed TUG in less than 11.0 seconds indicating improved gait and stability. Goal 6: Pt to score no greater than 7/50 on Back Index indicating improved QOL. Pt will benefit from skilled PT for 3x/week from 03/10/2025 to 05/19/2025 to address the above impairments. I hereby deem this POC medically necessary. Please sign below. Date: documented in this encounter [facility] 03-27-2025 History of Present illness Narrative Images from the original note were not included. Physical Therapy Treatment Visit Patient Name: Gladys Agarwal Today's Date: 03/27/2025 Encounter Diagnoses Name Primary? Other spondylosis with myelopathy, lumbar region Yes Visit number: 7 Timed Code Treatment Minutes: 40 minutes Total Treatment Time: 48 minutes Time In: 1200 Time Out: 1250 History: Pt underwent lumbar surgery on January [...] 10 years prior to surgery, states she is currently without left LE pain. Pt states she was wearing brace initially but now only has to wear if walking long distances. Precautions: [place] Subjective: Pt states low back is a little sore today. Was in the car a lot over the weekend and also sitting for [employer] recital yesterday and graduation on Thursday. Will be 8 weeks post op tomorrow. Pain: 02/25 Objective: PT Evaluation (03/10/2025) LUMBAR SPINE AROM: [...] Scar mobilization as needed. Therapeutic Exercise: (40 minutes) Strength, Endurance, Flexibility, ROM, HEP, Neural Mobilization, Power, and Core Stability as needed. Pt performed exercises per grid to increase core and bilateral LE strength. Including Nustep x8 minutes [place] Level 3.5. Therapeutic Activity: Exercises to improve dynamic activities, functional tasks, functional mobility to return to prior activity level as needed. Neuromuscular re-education: ( ) Balance Training, Muscle Facilitation, Dynamic Stability, Core Stabilization, and Blood Flow Restriction Training (BFRT) as needed. Modalities: Heat, Ice, Electrical Stimulation, Ultrasound, Cervical Mechanical Traction, Lumbar Mechanical Traction, Iontophoresis, and Fluidotherapy as needed. Assessment: Pt has completed 7 PT sessions following lumbar surgery. Pt presents with complaints of increase pain this date following prolong sitting activities yesterday. Limited exercises this date due to complaints of worsening pain with activity. Will continue to progress as pt tolerates. Outcome Measure: Back Index: 16/50 Rehab Diagnosis: low back pain, bilateral LE weakness, decrease mobility, difficulty walking Short Term Goal: To be met in 2 weeks Goal 1: Pt to be instructed in home exercise program. [facility] Goals: To be met in 10 weeks Goal 1: Pt to report independence and compliance with home program. Goal 2: Pt to report pain no greater than 2/10 with function tasks, ADL's, and work related activities. Goal 3: Pt to achieve 4-/5 strength bilateral hip abduction to assist with functional activities. Goal 4: Pt to complete 5 sit to stands with arms across chest in less than 14.0 seconds indicating improved functional strength and endurance. Goal 5: Pt to completed TUG in less than 11.0 seconds indicating improved gait and stability. Goal 6: Pt to score no greater than 7/50 on Back Index indicating improved QOL. Pt will benefit from skilled PT for 3x/week from 03/10/2025 to 05/19/2025 to address the above impairments. I hereby deem this POC medically necessary. Please sign below. Date: documented in this encounter [facility] 11-28-2024 History of Present illness Narrative Reason [...] KNEE SURGERY Bilateral Left: 2005; Right: 2015 [place] LAPAROSCOPIC APPENDECTOMY 12/04/2017 [place] REMOVAL OF KIDNEY STONE 2007 REVIEW OF [...] nursing note reviewed. Exam conducted with a independent sales representative present. Vitals: Estimated body mass index is 31.64 kg/m as calculated from the following: Height as of 08/11/24: 5'. Weight as of this encounter: 162 lb. BP: 126/76 No LMP recorded. Patient is postmenopausal. ASSESSMENT & PLAN ICD-10-CM 1. Well woman exam with routine gynecological exam Z01.419 THIN PREP TIS PAP AND HR HPV DNA 2. Osteoporosis, post-menopausal (CMS/HCC) M81.0 DEXA bone density 3. Breast cancer [...] of: JESSICA Hunt documented in this encounter [facility] 11-23-2024 Note Discharge Summary Admission and Discharge Information Admitting Physician - Jayden Santos DO Consulting Physician - [facility] Cardio, XXXX Bryant CANTRELL, Baldomero Admitting Diagnoses: [...] With When Contact Information Bryant CANTRELL, Baldomero, CAR Within 1 to 2 weeks Additional Instructions: Call for followup appointment Patient Education Chest Wall Pain, [id number] [facility] Comment on above: Result Comment: Elec tronically Signed By: Jayden Santos DO\.br\Date and Time Signed: 11/23/24 08:55 EST 11-16-2024 Note Echocardiology Procedure Exam Date/Time Accession # [id number] Echo Transthoracic 11/16/2024 10:20 EST [id number] Jayden Santos DO Complete CPT code [id number] Reason for Exam (Echo Transthoracic Complete) Chest pain Report [facility] [address] [place] [address] Adult Echocardiogram Report Name: CHLOE AGARWAL Study Date: 11/16/2024 09:40 AM BP: 124/67 mmHg Patient Location: [address] [place] [address] Bed(s) [facility] : 1955 Gender: Female Height: 60 in Age: 69 yrs Ethnicity: [facility] Weight: 165 lb Reason For Study: Chest [...] Signed by: Baldomero Hurtado MD Transcribed by: FABIOLA Technologist: GELY Dillon [facility] 11-16-2024 Note Consultation Note Chief Complaint chest [...] bilateral lower e (more content not included)... [facility] Comment on above: Result Comment: Elec [...] 13:41:00) Lymph Auto: 14.1 % (11/15/24 13:41:00) Giles Auto: 8 % (11/15/24 13:41:00) Eos Auto: 1.2 % (11/15/24 13:41:00) Basophil Auto: 0.9 % (11/15/24 13:41:00) Neutro Absolute: 6.8 E9/L (11/15/24 13:41:00) Lymph Absolute: 1.3 E9/L (11/15/24 13:41:00) Giles Absolute: 0.7 E9/L (11/15/24 13:41:00) Eos Absolute: [...] List/Past Medical History (more content not included)... [facility] Comment on above: Result Comment: Elec [...] bothersome. 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 She understands her water pill may be causing some of the cramping, but she was told she has to stay on it. She is trying to lose weight to improve her BP/HTN and her foot pain. She has tried gabapentin and Requip without improvement. She wears [employer] tennis shoes. She does not currently wear [...] KNEE SURGERY Bilateral Left: 2005; Right: 2015 [place] LAPAROSCOPIC [place]EN[place]OMY [place] REMOVAL OF KIDNEY STONE 2007 Family History [...] Sydnie Villalobos DPM documented in this encounter [facility] 07-06-2024 Note Consultation Note Patient is presenting [...] with any questions or concerns that arise. [facility] Comment on above: Result Comment: Elec [...] 08:15:00 AM Scheduled Provider:Claudio Monroe DO Location:.[facility] Appointment Type:Pain Management - Follow Up (FT) [facility] 07-21-2024 Evaluation + Plan [...] Diagnostic Tests Pending * Urine Culture 05/08/24 [facility] Hospital Discharge instructions Patient [...] if you feel dizzy. General instructions Take ikcj-wfa-cpgmzci and prescription medicines only as told by [...] provider. Document Revised: 09/04/2021 Document Reviewed: 09/04/2021 AB[employer] Patient Education 2022 [employer]. 05/08/2024 09:33:58 Urinary Tract Infection, Adult Urinary [...] Treatment for this condition includes: Antibiotic medicine. Hpxy-yiy-vpucgsj medicines to treat discomfort. Drinking enough water [...] Follow these instructions at home: Medicines Take jbfg-bvz-fpxvrof and prescription medicines only as told by [...] provider. Document Revised: 05/17/2021 Document Reviewed: 05/17/2021 ABODO Patient Education 2022 [employer]. Follow Up Care 05/08/2024 07:16:07 With:Vick Mcghee Address: [address] [place] [phone] Business (1) When:05/11/2024 09:31:54 Comments:Call the office [...] you develop any new or worsening symptoms. [facility]07-21-2024 NoteED Patient Education Note [...] you feel dizzy. General instructions ? Take kewq-fui-dcvtvag and prescription medicines only as told by [...] provider. Document Revised: 09/04/2021 Document Reviewed: 09/04/2021 ABODO Patient Education ? 2022 [employer]. Obstetrics and Gynecology Urinary Tract Infection, Adult [...] have certain medical conditions, (more content not included)...[facility]02-14-2024 Telephone encounter Note* Telephone Encounter - JESSICA Hunt - 12/02/2023 10:41 AM EST Pt notified of wellness lab results and low tsh, t3 and t4 labs ordered for her as well. Pt states she will follow up with her primary care physician, DR Mcghee in next few weeks. She denies any symptoms at this time [facility] [id number] Miscellaneous Notes* Telephone Encounter - JESSICA Hunt - 12/02/2023 10:41 AM EST Pt notified of wellness lab results and low tsh, t3 and t4 labs ordered for her as well. Pt states she will follow up with her primary care physician, DR Mcghee in next few weeks. She denies any symptoms at this time documented in this encounterWashington [facility] [id number] History of Present illness Narrative* JESSICA Hunt - 11/25/2023 9:00 AM EST Reason for Appointment: Patient ID: Chloe Agarwal is a 68 y.o. female who presents for [facility] Patient presents today [...] KNEE SURGERY Bilateral Left: 2005; Right: 2015 [place] LAPAROSCOPIC APPENDECTOMY 12/04/2017 [place] REMOVAL OF KIDNEY STONE 2008 Allergies Allergen [...] nursing note reviewed. Exam conducted with a independent sales representative present. Vitals: Estimated body mass index is [...] behalf of: JESSICA Hunt documented in this encounterWashington [facility] Medical [id number] Evaluation + Plan note Extracted from: Title:Pain [...] Date:12/14/2023 10:45:00 AM Scheduled Provider:Barry Husain MD [facility] Type:Pulmonary New Patient (FT) Appointment Date:12/18/2023 01:45:00 PM Scheduled Provider:Willie Kaur MD [facility] [place] Appointment Type:Cardiology Follow Up (FT) [facility]01-08-2024 Evaluation + Plan noteExtracted [...] 01:15:00 PM Scheduled Provider:Vicky Castillo PA-C Location:.[facility] Appointment Type:Pain Management - Follow Up (FT) [facility]12-20-2023 Evaluation + Plan noteExtracted [...] 08:15:00 AM Scheduled Provider:Vicky Castillo PA-C Location:.[facility] Appointment Type:Pain Management - Follow Up (FT) Appointment Date:11/17/2023 11:30:00 AM Scheduled Provider:Landon DOUGLAS MD [facility] App[facility] Type:Cardiology Follow Up (FT) [facility]12-20-2023 Note [id number] NoteDiagnosis: M54.16 Lumbar radiculopathy Procedure: [...] and agrees to comply to currently prescribed/recommended therapies.[facility] Comment on above:Result Comment: Electronically Signed By: Claudio Monroe DO.br\Date and Time Signed: 10/07/23 09:54 [id number] Evaluation + Plan note Extracted from: Title:FUV [...] Location:FT.Cardiology Clinic Appointment Type:Cardiology Follow Up (FT) [facility]08-21-2023 Evaluation + Plan noteExtracted [...] Clinic Appointment Type:Cardiology ED Follow Up (FT) [facility]08-18-2023 Evaluation + Plan noteExtracted from: Title:ED Note Author:Prasad Avalos DO Date:05/19 06/10 Dizziness (R42: Dizziness an d giddiness) Hypertension (I10: Essential (primary) hypertension) Orders: losartan, 50 mg = 1 tab(s), Oral, Daily, X 30 day(s), # 30 tab(s), Refills(s) 0, Pharmacy: [id number], 152.4, cm, 06/05/23 8:54:00 EDT, Height/Length [...] AM Scheduled Provider:Vicky Castillo PA-C Location:FT.[facility] [place] Appointment Type:Pain Management - Follow Up (FT) Appointment Date:07/06/2023 11:00:00 AM Scheduled Provider:Landon DOUGLAS MD Location:FT.Cardiology Clinic Appointment Type:Cardiology ED Follow Up (FT) [facility]08-18-2023 Hospital Discharge instructions Follow Up Care 06/05/2023 08:40:51 With:Vick Mcghee Address: [address] [place] [address] Business (1) When:Within 3 Day(s) [facility]07-17-2023 Evaluation + Plan noteExtracted [...] AM Scheduled Provider:Vicky Castillo PA-C Location:FT.[facility] Appointment Type:Pain Management - Follow Up (FT) [facility]06-16-2023 Evaluation + Plan noteExtracted from: Title:ANES Post-operative Note - General Author: Lb Wu Jr., DO Date:04/03/23 Plan Transfer/Discharge: Transfer/Discharge Discharge when meets criteria ( From PACU to Ambulatory Surgery Unit, and To home ). Extracted from: Title:ANES Pre-operative Note - Endo Author:Lb Melendez Jr., DO Date:04/03/23 Plan [place] [employer] Anesthesiologists (ASA) physical status classification: Class III. Anesthetic Preoperative Plan: Anesthesia General, and -TIVA. Future Appointments Appointment Date:04/07/2023 11:00:00 AM Scheduled Provider:Demar Trammell MD Location:FT.[facility] Appointment Type:Pain Management - Follow Up (FT) Appointment Date:04/28/2023 09:00:00 AM Scheduled Provider:Vicky LAST CNP Location:FT.Cardiology Clinic Appointment Type:Cardiology Follow Up (FT) [facility]06-16-2023 Hospital Discharge instructions Patient [...] unsweetened, w/added ascorbic acid 1 cup 0.5 Esparto 1 cup 0.7 Vegetables Cooked Green beans 1 cup 4.0 Carrots 1/2 cup sliced 2.3 Peas 1 cup 8.8 Potato (baked, with skin) 1 medium potato 3.8 Raw Roxana (with peel) 1 cucumber 1.5 Lettuce 1 [...] 8.7 Peanuts 1/2 cup 7.9 Chart from [facility] 2013. SEEK IMMEDIATE MEDICAL CARE IF: [...] of Agriculture (USDA) National Nutrient Database at: http://www.Beta Dash.usda.gov/fnic/foodcomp/search/ Created using data from the USDA National Nutrient Database for Standard Reference. Available at http://www.Beta Dash.usda.gov/fnic/foodcomp/search/. Information adapted from: [facility] Patient Information 2009 [employer]. [facility] 2012 http://www.[employer]/contents/konffefurdho-dlecqfp-dldiky-the-basics 04/03/2023 10:24:14 Colonoscopy, Care After Surgery Salam [...] reduce GERD symptoms. Medicines. These may include: ?Fbyq-eid-bkpznju antacids. ?Medicines that make your stomach empty [...] may include: ?Fatty foods, like fried foods. ?[place] fruits, like oranges or lemon. ?Other foods [...] Do not drink alcohol. General instructions Take jrgc-lyw-gvvpuqd and prescription medicines only as told by [...] provider. Document Revised: 08/19/2022 Document Reviewed: 09/05/2021 ABODO Patient Education 2022 [employer]. 04/03/2023 10:24:03 Endoscopy, Care After Procedure [facility]) Endoscopy Care After Procedure Please read the instructions outlined below and refer to this sheet in the next few weeks. These discharge instructions provide you with general information on caring [facility] Your doctor may also give you [...] Document Re-Released: 03/29/2007 ExitCare Patient Information 2009 [employer]. Follow Up Care 02/23/2023 10:35:27 With:Michael ALBRIGHT Address: [address] [place] [address] [facility] (1) When:2 weeks [facility]05-08-2023 Evaluation + Plan noteExtracted [...] Appointments Appointment Date:04/03/2023 10:30:00 AM Scheduled Provider: Location:[facility] Appointment Type:Surgery FT Appointment Date:04/28/2023 09:00:00 AM Scheduled Provider:Vicky LAST CNP Location:FT.Cardiology Clinic Appointment Type:Cardiology Follow Up (FT) [facility]12-21-2021 Hospital Discharge instructions Follow Up Care 10/08/2021 14:10:47 With:Landon Douglas MD Address: [place] [phone] When: Unknown [facility] note Future Appointments Appointment Date:11/05/2022 11:30:00 AM Scheduled Provider:Landon Douglas MD Location:FT.Cardiology Clinic Appointment Type:Cardiology Follow Up (FT) Future Scheduled Tests Laboratory* Lipid Panel 09/05/21 Radiology* Echo Transthoracic Complete 09/29/22 [facility] Future Appointments Appointment Date:11/05/2022 11:30:00 AM Scheduled Provider:Landon Douglas MD Location:FT.[facility]iology Clinic Appointment Type:Cardiology Follow Up (FT) [facility] Future Appointments Appointment Date:02/23/2023 12:30:00 PM Scheduled Provider:Demar Trammell MD Location:[facility] Appointment Type:Pain Management - New (FT) Appointment Date:04/28/2023 09:00:00 AM Scheduled Provider:Vicky LAST CNP Location:FT.Cardiology Clinic Appointment Type:Cardiology Follow Up (FT) [facility] Evaluation + Plan note Future Appointments Appointment Date:04/03/2023 10:30:00 AM Scheduled Provider: Location:[facility] Appointment Type:Surgery FT Appointment Date:04/07/2023 11:00:00 AM Scheduled Provider:Demar Trammell MD Location:[facility] Appointment Type:Pain Management - Follow Up (FT) Appointment Date:04/28/2023 09:00:00 AM Scheduled Provider:Vicky LAST CNP Location:FT.Cardiology Clinic Appointment Type:Cardiology Follow Up (FT) [facility] Future Appointments Appointment Date:04/20/2023 02:15:00 PM Scheduled Provider:Demar Trammell MD Location:[facility] Appointment Type:Pain Management - Office Injection (FT) Appointment Date:04/28/2023 09:00:00 AM Scheduled Provider:Vicky LAST CNP Location:FT.Cardiology Clinic Appointment Type:Cardiology Follow Up (FT) Appointment Date:05/04/2023 09:00:00 AM Scheduled Provider:Vicky Castillo PA-C Location:FT.[facility] [place] Appointment Type:Pain Management - Follow Up (FT) General [facility] Evaluation + Plan note Future Appointments Appointment Date:04/28/2023 09:00:00 AM Scheduled Provider:Vicky LAST CNP Location:FT.Cardiology Clinic Appointment Type:Cardiology Follow Up (FT) Appointment Date:05/04/2023 09:00:00 AM Scheduled Provider:Vicky Castillo PA-C Location:FT.[facility] [place] Appointment Type:Pain Management - Follow Up (FT) [facility] Future Appointments Appointment Date:05/04/2023 09:00:00 AM Scheduled Provider:Vicky Castillo PA-C Location:FT.[facility] [place] Appointment Type:Pain Management - Follow Up (FT) [facility] Future Appointments Appointment Date:07/14/2023 09:30:00 AM Scheduled Provider:Vicky LAST CNP Location:FT.Cardiology Clinic Appointment Type:Cardiology Follow Up (FT) [facility] Future Appointments Appointment Date:11/17/2023 11:30:00 AM Scheduled Provider:Landon DOUGLAS MD Location:FT.[facility]iology Clinic Appointment Type:Cardiology Follow Up (FT) Appointment Date:11/20/2023 01:15:00 PM Scheduled Provider:Vicky Castillo PA-C Location:FT.[facility] [place] Appointment Type:Pain Management - Follow Up (FT) [facility] Future Appointments Appointment Date:11/20/2023 01:15:00 PM Scheduled Provider:Vicky Castillo PA-C Location:FT.[facility] [place] Appointment Type:Pain Management - Follow Up (FT) Appointment Date:12/14/2023 10:45:00 AM Scheduled Provider:Barry Husain MD Location:FT.Pulmonary Clinic Appointment Type:Pulmonary New Patient (FT) Appointment Date:12/18/2023 01:45:00 PM Scheduled Provider:Willie Kaur MD Location:.Cardiology [facility] Appointment Type:Cardiology Follow Up (FT) [facility] Future Appointments Appointment Date:08/08/2024 08:15:00 AM Scheduled Provider:Claudio Monroe DO Location:[facility] Appointment Type:Pain Management - Follow Up (FT) Appointment Date:01/12/2025 09:30:00 AM Scheduled Provider:Lokesh Mcqueen PA-C [facility] Type:Cardiology Follow Up (FT) [facility] Evaluation + Plan note Future Appointments Appointment Date:01/12/2025 09:30:00 AM Scheduled Provider:Lokesh Mcqueen PA-C [facility] Type:Cardiology Follow Up (FT) Future Scheduled Tests Radiology* CT Spine Lumbar w/ Contrast 08/15/24 [facility] evaluation + Plan note Future Appointments Appointment Date:07/13/2024 03:00:00 PM Scheduled Provider:Willie Kaur MD [facility] App[facility] Type:Cardiology Follow Up (FT) Appointment Date:08/08/2024 08:15:00 AM Scheduled Provider:Claudio Monroe DO Location:[facility] Appointment Type:Pain Management - Follow Up (FT) [facility] evaluation + Plan note Future Appointments Appointment Date:01/13/2025 10:15:00 AM Scheduled Provider:Lokesh Mcqueen PA-C Location:.Cardiology Clinic Appointment Type:Cardiology Follow Up (FT) Future Scheduled Tests Radiology* CT Spine Lumbar w/ Contrast 08/15/24 [facility] evaluation + Plan note Future Appointments Appointment Date:01/23/2025 02:30:00 PM Scheduled Provider:Baldomero Hurtado MD [facility] Type:Cardiology Inpatient Follow Up (FT) Future Scheduled Tests Radiology* CT Spine Lumbar w/ Contrast 08/15/24 [facility] Evaluation + Plan note Future Appointments Appointment Date:01/23/2025 02:30:00 PM Scheduled Provider:Radu Kurtz MD Location:FT.Cardiology Clinic Appointment Type:Cardiology Inpatient Follow Up (FT) Future Scheduled Tests Radiology* CT Spine Lumbar w/ Contrast 08/15/24 [facility] evaluation + Plan note Future Appointments Appointment Date:07/26/2025 01:00:00 PM Scheduled Provider:Radu Kurtz MD Location:FT.Cardiology Clinic Appointment Type:Cardiology Follow Up (FT) Future Scheduled Tests Radiology* CT Spine Lumbar w/ Contrast 08/15/24 [facility] evaluation note* Diagnosis Well woman exam with routine gynecological exam Routine gynecological examination Breast cancer screening by mammogram Other osteoporosis, unspecified pathological fracture presence ([facility]) Restless legs Restless legs syndrome (RLS) Well [...] this encounter [facility] noteNo assessment information availableUk Healthcare Work Phone: Evalusghpl note* Diagnosis Well woman exam with routine gynecological exam Routine gynecological examination Osteoporosis, post-menopausal (CMS/HCC) Senile osteoporosis Breast cancer screening by mammogram Pelvic pain in female Unspecified symptom associated with female genital organs documented in this encounter [facility]* Diagnosis Other spondylosis with myelopathy, lumbar region- Primary documented in this encounter [facility]* Diagnosis Other spondylosis with myelopathy, lumbar region- Primary documented in this encounter [facility]* Diagnosis Other spondylosis with myelopathy, lumbar region- Primary documented in this encounter [facility]* Diagnosis Other spondylosis with myelopathy, lumbar region- Primary documented in this encounter [facility]* Diagnosis Other spondylosis with myelopathy, lumbar region- Primary documented in this encounter [facility]* Diagnosis Other spondylosis with myelopathy, lumbar region- Primary documented in this encounter [facility]* Diagnosis Other spondylosis with myelopathy, lumbar region- Primary documented in this encounter [facility]* Diagnosis Other spondylosis with myelopathy, lumbar region- Primary documented in this encounter [facility] Narrative No data available for this section [facility] No data available for this section [facility] CenterProgress note No data available for this section [facility] CenterReason for visit Narrative* Rehabilitation - Outpatient (Routine) - Authorized Specialty Diagnoses / Procedures Referred By Contac t Referred To Contact Physical Therapy Diagnoses Other spondylosis with myelopathy, lumbar region Procedures SC PHYSICAL THERAPY EVALUATION LOW COMPLEX 20 MINS SC OFFICE/OUTPATIENT NEW HIGH MDM 60 MINUTES Kath Carson MD [address] [place] [address] [address] [place] [address] Phone: tel: fax: Sofi Pyle PT Referral ID Status Reason Start Date Expiration Date V isits Requested Visits Authorized [id number] Authorized 03/10/2025 10/18/2025 30 30 [facility] Summary Purpose Family History No Family History [...] Date/ Time Advance Directives No March 01 11:02am Advance Directive Response Recorded Date/ Time Advance Directives No March 01 12:02pm Chief Complaint and Reason for Visit Chief Complaint Admit Date R76.0 January 17, 2025 9:41 am Additional Source Comments INFORMATION SOURCE (unrecogn ized section and content) DATE CREATED AUTHOR 04/15/2018 [facility] DATE CREATED AUTHOR AUTHOR'S ORGANIZ ATION 03/04/2023 [facility] DATE CREATED AUTHOR AUTHOR'S ORGANIZ ATION 05/10/2024 [facility] DATE CREATED AUTHOR AUTHOR'S ORGANIZ ATION 07/17/2024 [facility] DATE CREATED AUTHOR AUTHOR'S ORGANIZ ATION 08/12/2024 [facility] DATE CREATED AUTHOR AUTHOR'S ORGANIZ ATION 11/17/2024 [facility] DATE CREATED AUTHOR AUTHOR'S ORGANIZ ATION 02/06/2025 [facility] DATE CREATED AUTHOR AUTHOR'S ORGANIZ ATION 04/06/2025 [facility] DATE CREATED AUTHOR AUTHOR'S ORGANIZ ATION 04/20/2025 [facility] EPIC Care Team (unrecognized sect ion and content) Medical Billing Representative Relationship Specialty Start Date End Date Vcik Mcghee MD [address] [place] [address] PCP - General Family Medicine 05/21/23 Medical Billing Representative Relationship Specialty Start Date End Date Vick Mcghee MD [address] [place] [address] PCP - General Family Medicine 05/21/23 Medical Billing Representative Relationship Specialty Start Date End Date Vick Mcghee MD [address] [place] [address] PCP - General Family Medicine 05/21/23 Medical Billing Representative Relationship Specialty Start Date End Date Vick Mcghee MD [address] [place] [facility] [place] [address] PCP - General Family Medicine 05/21/23 Medical Billing Representative Relationship Specialty Start Date End Date Vick Mcghee MD [address] [place] [facility] [address] PCP - General Family Medicine 05/21/23 Medical Billing Representative Relationship Specialty Start Date End Date Vick Mcghee MD [address] [place] [facility] [place] [address] PCP - General Family Medicine 05/21/23 Team Status: Active Member Role Status Benigno Mcghee MD Primary Care Provider Active Team Status: Inactive Member Role Status Dates Vick Mcghee MD Primary Care Provider Active Start: September 02, 2024 End: September 02, 2024 NON STAFF Attending Provider Active Start: No [facility] End: September 02, 2024 Medical Billing Representative Relationship Specialty Start Date End Date Vick Mcghee MD [address] [place] [facility] [address] PCP - General Family Medicine 05/21/23 Medical Billing Representative Relationship Specialty Start Date End Date Vick Mcghee MD [address] [place] [facility] [place] [address] PCP - General Family Medicine 05/21/23 Team Status: Inactive Member Role Status Dates Vick Mcghee MD Primary Care Provider Active Start: January 17, 2025 End: January 17, 2025 Boo Godoy MD Attending Provider Active St art: January 17, 2025 End: January 17, 2025 Medical Billing Representative Relationship Specialty Start Date End Date Vick Mcghee MD PCP - General Family Medicine 05/21/23 Medical Billing Representative Relationship Specialty Start Date End Date Vick Mcghee MD PCP - General Family Medicine 05/21/23 Medical Billing Representative Relationship Specialty Start Date End Date Vick Mcghee MD PCP - General Family Medicine 05/21/23 Medical Billing Representative Relationship Specialty Start Date End Date Vick Mcghee MD PCP - General Family Medicine 05/21/23 Medical Billing Representative Relationship Specialty Start Date End Date Vick Mcghee MD PCP - General Family Medicine 05/21/23 Medical Billing Representative Relationship Specialty Start Date End Date Vick Mcghee MD PCP - General Family Medicine 05/21/23 Medical Billing Representative Relationship Specialty Start Date End Date Vick Mcghee MD PCP - General Family Medicine 05/21/23 Medical Billing Representative Relationship Specialty Start Date End Date Vick Mcghee MD PCP - General Family Medicine 05/21/23 Medical Billing Representative Relationship Specialty Start Date End Date Vick Mcghee MD PCP - General Family Medicine 05/21/23 Medical Billing Representative Relationship Specialty Start Date End Date Vick Mcghee MD PCP - General Family Medicine 05/21/23 Medical Billing Representative Relationship Specialty Start Date End Date Vick Mcghee MD PCP - [facility] Medicine 05/21/23 Medical Billing Representative Relationship Specialty Start Date End Date Vick Mcghee MD PCP - General [facility] 05/21/23 Medical Billing Representative Relationship Specialty Start Date End Date Vick Mcghee MD PCP - [facility] 05/21/23 Medical Billing Representative Relationship Specialty Start Date End Date Vick Mcghee MD PCP - [facility] 05/21/23 Medical Billing Representative Relationship Specialty Start Date End Date Vick Mcghee MD PCP - General [facility] 05/21/23 Reason for Visit (unrecogniz ed section [...] BE BASED ON THE PRIMARY CLINICAL RECORDS. [facility] [employer] [facility]. provides no warranty or guarantee of the accuracy or completeness of information in this document.
--- NOTE | 2025-04-23 17:39 | ECG_ITS ---
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 Measurements Intervals [place] Rate: 81 P: 52 LA: 138 QRS: 19 QRSD: 86 T: 5 QT: 402 QTc: 440 Interpretive Statements 1100 Sinus rhythm 1577 with couplet ventricular premature complexes 1970 with occasional ectopic premature complexes 8102 Low QRS voltage in chest leads 9140 abnormal rhythm ECG Compared to ECG 08/01/2021 11:09:49 No significant changes Electronically Signed On 04-24-2025 20:28:33 EDT by FLORENCIA WYATT M.D.
--- NOTE | 2025-04-23 17:39 | CT_ITS ---
The [address] [address] Patient Name: CHLOE AGARWAL MRN: [id number] date: 1955 Sex: F Assigned Patient Location: ED.MAIN Current Patient Location: ED.MAIN Accession/Order Number: [id number] Exam Date: 04/23/2025 18:24 Report Date: 04/23/2025 18:26 At the request of: ADRIENNE LION MD Procedure: CT head/brain wo con Unenhanced head CT TECHNIQUE: Contiguous axial imaging of the head. The CT exam was performed using one or more the following dose reduction techniques: Automated exposure control, adjustment of the MA and/or Kv according to patient size, or use of the iterative reconstruction technique. COMPARISON: 08/01/2021 HISTORY: Dizziness starting this morning. Headaches VENTRICLES: Within normal limits ATROPHY: None BRAIN PARENCHYMA: Adequate sandoval-white matter differentiation identified. HEMORRHAGE: None HERNIATION: No mass effect or herniation INFARCTION: No recent vascular distribution infarction is seen. EXTRA-AXIAL FLUID COLLECTIONS None MIDBRAIN: Unremarkable RICK: Unremarkable MEDULLA: Unremarkable SINUSES: Unremarkable ORBITS: Grossly unremarkable MASTOIDS: Unremarkable BONY STRUCTURES Intact ADDITIONAL FINDINGS: CT/CT head/brain wo con IMPRESSION: No acute findings. Impression dictated by: Chavo Samaniego M.D. 04/23/2025 6:26 PM Dictation Location: [place] [address] Electronically authenticated by: [id number] Y Date: 04/23/2025 18:26
--- NOTE | 2025-04-23 17:39 | ED.GENADUL1 ---
HPI HPI - General Adult General Chief complaint: Dizziness Stated complaint: DIZZINESS Time Seen by Provider: 04/23/25 17:34 Source: patient Mode of arrival: Wheelchair Limitations: no limitations History of Present Illness HPI narrative: 69-year-old female presents for chief complaint of dizziness. She is describing a spinning sensation that started this morning. If she turns her head it gets worse. No trauma or fever. She has a mild headache but she states she always has a mild headache. The headache is no different. No localized weakness or fever or vomiting. She has never been diagnosed with vertigo previously. Related Data Home Medications ?Medication ?Instructions ?Recorded ?Confirmed metoprolol tartrate 100 mg tablet 50 mg PO DAILY 08/30/24 04/23/25 pantoprazole 40 mg tablet,delayed 40 mg PO BID 08/30/24 04/23/25 release (Protonix) Allergies Allergy/AdvReac Type Severity Reaction Status Date / Time ropinirole (From Requip) Allergy nausea and Verified 09/02/24 11:36 vomiting Sulfa (Sulfonamide Allergy Unknown Verified 09/02/24 11:36 Antibiotics) gabapentin AdvReac htn Verified 09/02/24 11:36 lisinopril AdvReac Cough Verified 09/02/24 11:36 Opioid HPI Opioid Management Most Recent Opioid Data: Last Pain Scale 5 Today, 17:34 Last ED Pain Assessment Today, 17:34 Review of Systems ROS Narrative A ten point review of systems is negative except as noted above. [facility] Medical History (Updated 04/23/25 @ 18:44 by Jatin Gilmore MD) Hyperthyroidism ?E05.90 - Thyrotoxicosis, unspecified without thyrotoxic crisis or storm (ICD-10) Renal lithiasis ?N20.0 - Calculus of kidney (ICD-10) HTN (hypertension) ?I10 - Essential (primary) hypertension (ICD-10) Surgical History (Updated 09/02/24 @ 11:37 by Tammy Wilkes) H/O fine needle aspiration with imaging guidance ?Z98.890 - Other specified postprocedural states (ICD-10) Hx of cystoscopy ?Z98.890 - Other specified postprocedural states (ICD-10) S/P appy ?Z90.49 - Acquired absence of other specified parts of digestive tract (ICD-10) Hx of total knee arthroplasty ?Z96.659 - Presence of unspecified artificial knee joint (ICD-10) Social History Little interest or pleasure in doing things: not at all Feeling down, depressed, or hopeless: not at all Exam Narrative Exam Narrative: Nurses note and vital signs reviewed and patient is not hypoxic. General: The patient appears well and in no apparent distress. Patient is resting comfortably on cart. Skin: Warm, dry, no pallor noted. There is no rash noted. Head: Normocephalic, atraumatic Eye: Normal conjunctiva, no drainage Ears, Nose, Mouth, and Throat: oral mucosa is moist. Nares patent. Cardiovascular: Generally regular with occasional early beat Respiratory: Patient is in no distress, no accessory muscle use, lungs are clear to auscultation, no wheezing, rales or rhonchi Back: non-tender GI: Soft and nontender Musculoskeletal: The patient has no evidence of calf tenderness, no pitting edema, symmetrical pulses noted bilaterally Neurological: A&O, normal speech; upper lower extremity strength 5 out of 5 and symmetric. Cranial nerves II through XII intact Psychiatric: Cooperative Constitutional Vital Signs, click to edit/add: Last Vital Signs Temp 97.8 F 04/23/25 17:27 Pulse 82 04/23/25 18:40 Resp 17 04/23/25 18:40 BP 160/76 H 04/23/25 17:49 Pulse Ox 97 04/23/25 18:42 O2 Del Method Room Air 04/23/25 17:34 Course Vital Signs Vital signs: Vital Signs Temperature 97.8 F 04/23/25 17:27 Pulse Rate 88 04/23/25 17:27 Respiratory Rate 18 04/23/25 17:27 Blood Pressure 164/93 H 04/23/25 17:27 Pulse Oximetry 98 04/23/25 17:27 Oxygen Delivery Method Room Air 04/23/25 17:27 Temperature 97.8 F 04/23/25 17:27 Pulse Rate 82 04/23/25 18:40 Respiratory Rate 17 04/23/25 18:40 Blood Pressure 160/76 H 04/23/25 17:49 Pulse Oximetry 97 04/23/25 18:42 Oxygen Delivery Method Room Air 04/23/25 17:34 Medical Decision Making MDM Narrative Medical decision making narrative: Workup including CT brain is negative. She did not have improvement with Antivert and she was administered 2.5 mg of IV Valium and the patient is signed out to Dr. Lees at change of shift. Differential Diagnosis Differential Diagnosis: Vertigo, intracranial hemorrhage, anemia, acute kidney injury Lab Data Lab results reviewed: Yes I reviewed the patient's lab results Labs: Lab Results 04/23/25 Range/Units 17:37 WBC 6.6 (4.0-11.0) 10^3/uL RBC 4.29 (4.20-5.40) 10^6/uL Hgb 12.3 (12.0-16.0) g/dL Hct 36.3 (36.0-48.0) % MCV 84.6 (81.0-99.0) fL MCH 28.7 (26.7-34.0) pg MCHC 33.9 (29.9-35.2) g/dL RDW 12.1 (11.0-15.0) % Plt Count 241 (150-450) 10^3/uL MPV 10.5 (9.5-13.5) fL Neut % (Auto) 70.1 (43.0-75.0) % Lymph % (Auto) 19.9 L (20.5-60.0) % Randolph % (Auto) 8.0 (1.7-12.0) % Eos % (Auto) 1.1 (0.9-7.0) % Baso % (Auto) 0.6 (0.2-2.0) % Neut # (Auto) 4.6 (1.4-6.5) 10^3/uL Lymph # (Auto) 1.3 (1.2-3.8) 10^3/uL Randolph # (Auto) 0.5 (0.3-0.8) 10^3/uL Eos # (Auto) 0.1 (0.0-0.7) 10^3/uL Baso # (Auto) 0.0 (0.0-0.1) 10^3/uL Abs Immat Gran (auto) 0.02 (0.00-0.03) 10^3/uL Imm/Tot Granulo (auto) 0.3 (0.0-0.5) % Sodium 143 (136-145) mmol/L Potassium 3.7 (3.5-5.1) mmol/L Chloride 106 (98-107) mmol/L Carbon Dioxide 22.6 (21.0-32.0) mmol/L Anion Gap 18.1 BUN 18.0 (7.0-18.0) mg/dL Creatinine 0.49 L (0.55-1.02) mg/dL Est GFR ( Amer) >60 (>=60 mL/min/1.73m^2) Est GFR (Non-Af Amer) >60 (>=60 mL/min/1.73m^2) BUN/Creatinine Ratio 36.7 Glucose 115 H (74-106) mg/dL Calcium 9.6 (8.5-10.1) mg/dL Imaging Data CT scan - head: Radiologist's impression: ITS Impressions Head CT 04/23/25 17:39 IMPRESSION: No acute findings. Impression dictated by: Chavo Samaniego M.D. 04/23/2025 6:26 PM Dictation Location: [place] [address] Electronically authenticated by: [id number] Y Date: 04/23/2025 18:26 ECG Data Attestation: I personally reviewed and interpreted this ECG as follows: (EKG on my interpretation shows normal sinus rhythm with occasional PVCs.) Discharge Plan Discharge Patient Disposition: Still a Patient
[2025-04-23 17:46] LABS: Hematocrit 36.3 % (36.0-48.0); Hemoglobin 12.3 g/dL (12.0-16.0); Immature Granulocytes Abs Auto 0.02 10^3/uL (0.00-0.03); Immature Granulocytes Pct Auto 0.3 % (0.0-0.5); Lymphocytes Absolute Auto 1.3 10^3/uL (1.2-3.8); Mean Corpuscular HGB Conc 33.9 g/dL (29.9-35.2); Mean Corpuscular Hemoglobin 28.7 pg (26.7-34.0); Mean Corpuscular Volume 84.6 fL (81.0-99.0); Platelet Count 241 10^3/uL (150-450); Red Blood Count 4.29 10^6/uL (4.20-5.40); White Blood Count 6.6 10^3/uL (4.0-11.0)
[2025-04-23] MEDS: MECLIZINE HCL 12.5 MG TABLET 25 MG PO (17:46)
[2025-04-23 17:56] LABS: Anion Gap 18.1; Blood Urea Nitrogen 18.0 mg/dL (7.0-18.0); Calcium 9.6 mg/dL (8.5-10.1); Carbon Dioxide 22.6 mmol/L (21.0-32.0); Chloride 106 mmol/L (98-107); Estimated GFR (African America >60 (>=60 mL/min/1.73m^2); Estimated GFR (Non-African Ame >60 (>=60 mL/min/1.73m^2); Glucose 115 mg/dL (74-106); Potassium 3.7 mmol/L (3.5-5.1); Sodium 143 mmol/L (136-145)
[2025-04-23] MEDS: DIAZEPAM 10 MG/2 ML SYRINGE 2.5 MG IV (18:58)
[2025-04-23] MEDS: FAMOTIDINE/PF 20 MG/2 ML VIAL IV (20:29)
[2025-04-23] MEDS: PROMETHAZINE HCL 12.5 MG in 0.9 % SODIUM CHLORIDE 50 ML 202 MG IV (20:29)
--- OUTSIDE RECORDS SUMMARY | 2025-04-23 21:12 | XMS_ITS | CCD ---
Author Organization [facility] Care Team Providers Care Hydraulic Technician Name Role Phone Adryan Yoon Unavailable Unavailable ClevelandjaspalAdryan Unavailable Unavailable VICK MCGHEE Unavailable Unavailable Fernie Sandoval Unavailable Unavailable Vick Mcghee Primary Care Physician [phone] DR RANGEL Admitting Unavailabl e [...] Castillo Attending Unavailable Nelson Solares Attending Unavailable HsuainBarry GRuba Attending Unavailable Husain Basem GRuba Referring Unavailable Husain Basem G. Admitting Unavailable Husain Basem GRuba Attending Unavailable Landon DOUGLAS Referring Unavailable Anna PA-C Vicky Admitting Unavailabl e Castillo, Vicky Attending Unavailable Hoy, Vick Referring Unavailable Castillo, PA-C Vicky Admitting Unavailabl e Castillo, Vicky Attending Unavailable Vick Mcghee Referring Unavailable Vick Mcghee MD Primary Care Provider [phone] NON STAFF Attending Provider Unavailable Claudio Monroe Attending Unavailable Claudio Monroe Admitting Unavailable Darshan Laughlin Attending Unavailable Vick Mcghee Referring Unavailable Claudio Monroe Attending Unavailable Claudio Monroe Admitting Unavailable NONE, XXXX Referring Unavailable Lokesh Mcqueen Attending Unavailable Lokesh Mcqueen Admitting Unavailable SAM KAISER Attending Unavailable SAM KAISER Admitting Unavailable WERSAM MCKINNON Referring Unavailable OJUKWU, Mbanefo Attending Unavailable OJUKWU, Mbanefo Admitting Unavailable [facility], XXXX Consulting Unavailable Vick Mcghee MD Primary Care Provider [phone] Boo Godoy MD Attending Provider NON STAFF Attending Unavailable Vick Mcghee Primary Care Unavailable NON STAFF Admitting Unavailable Boo Godoy Admitting Unavailable Boo Godoy Attending Unavailable Vick Mcghee Primary Care Unavailable Vick Mcghee MD Primary Care Provider [phone] MD Radu Kurtz Attending Unavailable Baldomero Hurtado Admitting Unavailable NONE, XXXX Referring Unavailable Lokesh Mcqueen Referring Unavailable Lokesh Mcqueen Admitting Unavailable Lokesh Mcqueen Attending Unavailable Baldomero Hurtado Consulting Unavailable Jayden Santos Admitting Unavailable Jayden Santos Attending Unavailable Bryant, Baldomero Consulting Unavailable Bryant, Baldomero Consulting Unavailable [facility], XXXX Consulting Unavailable ANTIONETTE YANG Attending [...] Propensity to adverse reactions to drug (disorder) [facility] Repository (20 sources) Sulfonamides (Antibiotic); Translations: [sulfa drugs] Drug allergy unknown [facility] (20 sources) Lisinopril; Translations: [lisinopril] Drug Allergy Coughing - function (qualifier value) [facility] (1 source) Sulfonamides (Antibiotic) Drug allergy (disorder) [facility] Repository (20 sources) gabapentin; Translations: [gabapentin] Drug Allergy 3 Headache (finding), Headache [facility] (20 sources) Lisinopril Propensity to adverse reactions 3 [facility] (20 sources) Sulfonamides (Antibiotic) Drug Allergy 3 [facility] (12 sources) Baclofen; Translations: [baclofen] Drug Allergy Hand pain (finding), Menopausal flushing (finding), Bilateral weakness of upper limbs, Weakness of bilateral lower limb, Numbness of limbs (finding) [facility] (20 sources) DULoxetine; Translations: [duloxetine] Drug Allergy 4 Vomiting (disorder) [facility] (20 sources) Baclofen Drug Allergy 5 [facility] [...] Daily, # 30 tab(s), Refills(s) 2, Pharmacy: [facility], 152, cm, 10/05/24 11:36:00 EST, Height/Length Dosing, 75.8, kg, 10/05/24 11:40:00 EST, Weight Dosing Start Date: 10/05/24 Status: Ordered cephalexin 500 mg oral capsule (1 source) Cephalosporin Antibacterial Start: 05-08-2024 End: 05-13-2024 take 1 capsule by mouth every twelve hours Keflex 500 mg Cap 500 mg = 1 cap(s), Oral, q12hr, X 5 day(s), # 10 cap(s), Refills(s) 0, Pharmacy: [facility], 152, cm, 05/08/24 7:24:00 EDT, Height/Length Dosing, 77.2, kg, 05/08/24 7:33:00 EDT, Weight Dosing Start Date: 05/08/24 Stop Date: 05/13/24 Status: Ordered cloNIDine hydrochloride 0.1 mg oral tablet (2 sources) Central alpha-2 Adrenergic Agonist Start: 11-03-2024 take 1 tablet by mouth twice daily cloNIDine 0.1 mg tab 0.1 mg = 1 tab(s), Oral, BID, # 60 tab(s), Refills(s) 5, Pharmacy: [facility], 152, cm, 10/05/24 11:36:00 EST, Height/Length [...] BID, # 60 cap(s), Refills(s) 0, Pharmacy: [facility], 152, cm, 05/04/23 8:55:00 EDT, Height/Length [...] anxiety, # 40 cap(s), Refills(s) 0, Pharmacy: [facility], 75.8, cm, 11/15/24 13:21:00 EST, Height/Length [...] day(s), # 9 tab(s), Refills(s) 0, Pharmacy: [facility], 152, cm, 05/08/24 7:24:00 EDT, Height/Length Dosing, 77.2, kg, 05/08/24 7:33:00 EDT, Weight Dosing Start Date: 05/08/24 Stop Date: 05/11/24 Status: Ordered losartan potassium 100 mg oral tablet (20 sources) Angiotensin 2 Receptor Hermilo Start: 01-03-2025 take 1 tablet by mouth at bedtime losartan 100 mg Tab 100 mg = 1 tab(s), Oral, Bedtime, # 90 tab(s), Refills(s) 3, Pharmacy: [facility], 75.8, cm, 11/15/24 13:21:00 EST, Height/Length Dosing, 78.5, kg, 11/15/24 13:21:00 EST, Weight Dosing Start Date: 01/03/25 Status: Ordered Quantity: 90.0 Unit: tab(s) Repeat number: 4 Indication: Essential (primary) hypertension Start: 07-13-2024 take 1 tablet by herberth th at bedtime losartan 100 mg Tab 100 mg = 1 tab(s), Oral, Bedtime, # 90 tab(s), Refills(s) 3, Pharmacy: [facility], 152, cm, 07/13/24 15:04:00 EDT, Height/Length Dosing, 75, kg, 07/13/24 15:04:00 EDT, Weight Dosing Start Date: 07/13/24 Status: Ordered Start: 12-18-2023 take 1 tablet by herberth th at bedtime losartan 100 mg Tab 100 mg = 1 tab(s), Oral, Bedtime, # 90 tab(s), Refills(s) 3, Pharmacy: [facility], 152, cm, 12/18/23 13:31:00 EST, Height/Length Dosing, 79.2, kg, 12/18/23 13:37:00 EST, Weight Dosing Start Date: 12/18/23 Status: Ordered Start: 07-14-2023 take 1 tablet by herberth at bedtime losartan 100 mg Tab 100 mg = 1 tab(s), Oral, Bedtime, # 90 tab(s), Refills(s) 1, Pharmacy: [facility], 152, cm, 07/14/23 9:26:00 EDT, Height/Length Dosing, 76.9, kg, 07/14/23 9:26:00 EDT, Weight Dosing Start Date: 07/14/23 Status: Ordered Start: 06-30-2023 End: 07-30-2023 take 1 tablet by mouth twice daily losartan 50 mg Tab 50 mg = 1 tab(s), Oral, BID, X 30 day(s), # 60 tab(s), Refills(s) 0, Pharmacy: [facility], 152, cm, 06/30/23 15:07:00 EDT, Height/Length Dosing, 77.5, kg, 06/30/23 15:07:00 EDT, Weight Dosing Start Date: 06/30/23 Stop Date: 07/30/23 Status: Ordered Start: 06-05-2023 End: 07-05-2023 take 1 tablet by mouth once daily losartan 50 mg Tab 50 mg = 1 tab(s), Oral, Daily, X 30 day(s), # 30 tab(s), Refills(s) 0, Pharmacy: [facility], 152.4, cm, 06/05/23 8:54:00 EDT, Height/Length Dosing, 73, kg, 06/05/23 8:54:00 EDT, Weight Dosing Start Date: 06/05/23 Stop Date: 07/05/23 Status: Ordered Start: 11-05-2022 End: 10-31-2023 take 1 tablet by mouth once daily Cozaar 25 mg Tab 25 mg = 1 tab(s), Oral, Daily, stopping Lisinopril Starting Cozaar, X 90 day(s), # 90 tab(s), Refills(s) 3, Pharmacy: [facility], 152, cm, 11/05/22 11:35:00 EST, Height/Length [...] dizziness, # 30 tab(s), Refills(s) 0, Pharmacy: [facility], 152, cm, 05/08/24 7:24:00 EDT, Height/Length [...] day(s), # 21 tab(s), Refills(s) 0, Pharmacy: [facility], 152, cm, 09/22/23 11:39:00 EST, Height/Length [...] Daily, # 30 tab(s), Refills(s) 0, Pharmacy: [facility], 75.8, cm, 11/15/24 13:21:00 EST, Height/Length Dosing, 78.5, kg, 11/15/24 13:21:00 EST, Weight Dosing Start Date: 11/16/24 Status: Ordered Quantity: 30.0 Unit: tab(s) Repeat number: 1 Start: 11-16-2024 take 1 tablet by [facility] once daily metoprolol succinate 50 mg ER Tab 50 mg = 1 tab(s), Oral, Daily, # 30 tab(s), Refills(s) 0, Pharmacy: [facility], 75.8, cm, 11/15/24 13:21:00 EST, Height/Length Dosing, 78.5, kg, 11/15/24 13:21:00 EST, Weight Dosing Start Date: 11/16/24 Status: Ordered Quantity: 30.0 Unit: tab(s) Repeat number: 1 Start: 11-17-2023 take 2 tablets by mo [facility] once daily metoprolol succinate 50 mg ER Tab 100 mg = 2 tab(s), Oral, Daily, # 180 tab(s), Refills(s) 3, Pharmacy: [facility], 152, cm, 07/13/24 15:04:00 EDT, Height/Length Dosing, 75, kg, 07/13/24 15:04:00 EDT, Weight Dosing Start Date: 07/13/24 Status: Ordered Start: 06-30-2023 End: 12-27-2023 take 1 tablet by mouth once daily metoprolol 50 mg ER Tab 50 mg = 1 tab(s), Oral, Daily, # 90 tab(s), Refills(s) 1, Pharmacy: [facility], 152, cm, 07/14/23 9:26:00 EDT, Height/Length Dosing, 76.9, kg, 07/14/23 9:26:00 EDT, Weight Dosing Start Date: 07/14/23 Status: Ordered Start: 11-14-2022 take 1 tablet by herberth once daily metoprolol 25 mg ER Tab 25 mg = 1 tab(s), Oral, Daily, # 90 tab(s), Refills(s) 3, Pharmacy: [facility], 152, cm, 11/05/22 11:35:00 EST, Height/Length Dosing, 76, kg, 11/05/22 11:35:00 EST, Weight Dosing Start Date: 11/14/22 Status: Ordered Start: 10-08-2021 End: 10-03-2022 take 1 tablet by mouth once daily Toprol XL 25 mg Tab-ER 25 mg = 1 tab(s), Oral, Daily, X 90 day(s), # 90 tab(s), Refills(s) 3, Pharmacy: [facility], 152, cm, 10/08/21 13:49:00 EST, Height/Length [...] BID, # 120 tab(s), Refills(s) 0, Pharmacy: [facility], 152.4, cm, 04/01/21 7:20:00 EDT, Height/Length [...] BID, # 60 cap(s), Refills(s) 0, Pharmacy: [facility], 152, cm, 10/26/23 13:07:00 EST, Height/Length [...] QID, # 120 tab(s), Refills(s) 3, Pharmacy: [facility], 152, cm, 04/03/23 9:20:00 EDT, Height/Length [...] q8hr, # 12 tab(s), Refills(s) 0, Pharmacy: [facility], 152, cm, 05/08/24 7:24:00 EDT, Height/Length [...] day(s), # 90 tab(s), Refills(s) 0, Pharmacy: [facility], 152, cm, 07/06/24 15:10:00 EDT, Height/Length [...] day(s), # 60 cap(s), Refills(s) 0, Pharmacy: [facility], 152, cm, 07/06/24 15:10:00 EDT, Height/Length [...] (COVID-19) mRNA [id number] vax 07/02/2021 Recorded Normal [facility] Comment on above: Result Comment: Elec tronically Signed By: Jerardo CANTRELL, Radu Putnam\Date and Time Signed: 04/03/25 19:22 EDT DARIEL Antinuclear Antibodieson 01-17-2025 Antinuclear Abs, IFA Positive Critically abnormal . [facility] Comment on above: Result Comment: Nega tive <1:80 Borderline 1:80 Positive >1:80 Performed By: #### C H50, TPO, RA, DARIEL, C3, C4, THYGLOB AB, CARDIO GMA, CCP, B2 GLYPROT, CHROMATIN #### [facility] , Note 1 Comment Normal . [facility] Comment on above: Result Comment: Seema chavez Potential Disease Association Homogeneous Systemic Lupus Erythematosus, Drug Induced Systemic Lupus Erythematosus, Chronic Autoimmune hepatitis, Juvenile Idiopathic Arthritis Speckled Sjogren Syndrome, Systemic Lupus Erythematosus, Subacute Cutaneous Lupus, Lupus, Congenital Heart Block, Mixed Connective Tissue Disease, Scleroderma-diffuse, Scleroderma-Autoimmune Myositis Overlap Syndrome, Systemic Lupus Uguaervvnsfrb-Jecdlsnhhpb-Ghzykmfvlp Myositis Overlap Syndrome, Systemic Autoimmune Rheumatic Disease, [...] Cytopenias, Linear Scleroderma, Antiphospholipid Syndrome Performed at: [facility] Awareness Card [address] [id number] Black Top Raker: Raul Nieves PhD, Phone: [phone] Performed By: #### C H50, TPO, RA, DARIEL, C3, C4, THYGLOB AB, CARDIO GMA, CCP, B2 GLYPROT, CHROMATIN #### [facility] , Speckled Pattern 1:80 Normal . [facility] Comment on above: Result Comment: [...] [Enzymatic activity/volume] in Serum or Plasma 7 [facility] Albumin [Mass/volume] in Ser um or Plasma by Bromocresol green (BCG) dye binding methoOrdered By: Boo Godoy on 01-17-2025 Albumin BCG dye [Mass/Vol] Albumin [Mass/volume] in Serum or Plasma by Bromocresol green (BCG) dye binding metho 3.5-5.7 [facility] Aldolaseon 01-17-2025 Aldolase 4.8 U/L Normal 3.3-10.3 [facility] Comment on above: Result Comment: Perf ormed at: [facility] [address] [id number] Black Top Raker: Raul Nieves PhD, Phone: [phone] PERFORMED BY: [address] [place] [address] PATHOLOGIST NEWSPERSON RHONDA BAUER M.D. Performed By: #### C H50, TPO, RA, DARIEL, C3, C4, THYGLOB AB, CARDIO GMA, CCP, B2 GLYPROT, CHROMATIN #### [facility] , Alkaline phosphatase [Enzyma tic activity/volume] in Serum or PlasmaOrdered By: Boo Godoy on 01-17-2025 ALP [Catalytic activity/Vol] Alkaline phosphatase [Enzymatic activity/volume] in Serum or Plasma 34-104 [facility] Anti-Centromere B Antibodies on 01-17-2025 Anti-Centromere B Antibodies <0.2 Normal 0.0-0.9 [facility] Comment on above: Result Comment: Perf ormed at: [address] [id number] Black Top Raker: Raul Nieves PhD, Phone: [phone] Performed By: #### C H50, TPO, RA, DARIEL, C3, C4, THYGLOB AB, CARDIO GMA, CCP, B2 GLYPROT, CHROMATIN #### [facility] , Anti-RNPon 01-17-2025 Anti-DIPLOMATIC INTERPRETER/TRANSLATOR <0.2 Normal 0.0-0.9 [facility] Comment on above: Performed By: #### C H50, TPO, RA, DARILE, C3, C4, THYGLOB AB, CARDIO GMA, CCP, B2 GLYPROT, CHROMATIN #### [facility] , Anti-Anders Antibodieson 04 Anti-Anders Antibodies <0.2 Normal 0.0-0.9 [facility] Comment on above: Performed By: #### C H50, TPO, RA, DARIEL, C3, C4, THYGLOB AB, CARDIO GMA, CCP, B2 GLYPROT, CHROMATIN #### [facility] , Anti-dsDNA(DBL)Abon 01-18-20 25 Anti-dsDNA(DBL)Ab <1 Normal 0-9 [facility] Comment on above: Result Comment: Nega tive <5 Equivocal 5 - 9 Positive >9 PERFORMED BY: [address] [place] [address] PATHOLOGIST NEWSPERSON RHONDA BAUER M.D. Performed By: #### C H50, TPO, RA, DARIEL, C3, C4, THYGLOB AB, CARDIO GMA, CCP, B2 GLYPROT, CHROMATIN #### [facility] , Anticardiolipin IgG/M/A, Qno n 01-17-2025 Anticardiolipin Ab, IgA,Qn <9 Normal 0-11 [facility] Comment on above: Result Comment: Nega tive: <12 Indeterminate: 12 - 20 Low-Med Positive: >20 - 80 High Positive: >80 Performed at: [address] [id number] Black Top Raker: Raul Nieves PhD, Phone: [phone] Performed By: #### C H50, TPO, RA, DARIEL, C3, C4, THYGLOB AB, CARDIO GMA, CCP, B2 GLYPROT, CHROMATIN #### [facility] , Anticardiolipin Ab, IgG,Qn <9 Normal 0-14 [facility] Comment on above: Result Comment: Nega tive: <15 Indeterminate: 15 - 20 Low-Med Positive: >20 - 80 High Positive: >80 Performed By: #### C H50, TPO, RA, DARIEL, C3, C4, THYGLOB AB, CARDIO GMA, CCP, B2 GLYPROT, CHROMATIN #### [facility] , Anticardiolipin Ab, IgM,Qn 10 Normal 0-12 [facility] Comment on above: Result Comment: Nega tive: <13 Indeterminate: 13 - 20 Low-Med Positive: >20 - 80 High Positive: >80 Performed By: #### C H50, TPO, RA, DARIEL, C3, C4, THYGLOB AB, CARDIO GMA, CCP, B2 GLYPROT, CHROMATIN #### [facility] , Antithyroglobulin Abon 01-17 Antithyroglobulin Ab 7.7 [IU]/mL High 0.0-0.9 [facility] Comment on above: Result Comment: Thyr oglobulin Antibody measured by Demetra Jay Methodology It should be noted that the presence of thyroglobulin antibodies may not be pathogenic nor diagnostic, especially at very low levels. The assay top flavor attendant has found that four percent of individuals without evidence of thyroid disease or autoimmunity will have positive TgAb levels up to 4 IU/mL. Performed at: [address] [id number] Black Top Raker: Raul Nieves PhD, Phone: [phone] Performed By: #### C H50, TPO, RA, DARIEL, C3, C4, THYGLOB AB, CARDIO GMA, CCP, B2 GLYPROT, CHROMATIN #### [facility] , Appearance of UrineOrdered B y: Boo Godoy on 01-17-2025 Appearance (U) Urine appearance Clear [facility] Aspartate aminotransferase [ Enzymatic activity/volume] in Serum or PlasmaOrdered By: Boo Godoy on 01-17-2025 AST [Catalytic activity/Vol] Aspartate aminotransferase [Enzymatic activity/volume] in Serum or Plasma 13-39 [facility] Bacteria [Presence] in Urine by AutomatedOrdered By: Boo Godoy on 01-17-2025 Bacteria Auto Ql (U) Bacteria [Presence] in Urine by Automated None Seen [facility] Basophils Auto (Bld) [#/Vol] Ordered By: Boo Godoy on 01-17-2025 Basophils (Bld) [#/Vol] Automated basophil count 0.0-0.2 [facility] Basophils/100 WBC Auto (Bld) Ordered By: Boo Godoy on 01-17-2025 Basophils/100 WBC (Bld) Automated basophil % . [facility] Beta 2 Glycoprotein I Ab IgG /Mon 01-17-2025 Beta 2 Glycoprotein I Ab, IgG <9 Normal 0-20 [facility] Comment on above: Result Comment: [...] I Ab, IgM <9 Normal 0-32 [facility] Comment on above: Result Comment: Resu lt Units: GPI IgM units The reference interval reflects a 3SD or 99th percentile interval, which is thought to represent a potentially clinically significant result in accordance with the International Consensus Statement on the classification criteria for definitive antiphospholipid syndrome (APS). J Thromb Haem 2006;4:295-306. Performed at: [facility] [address] [id number] Black Top Raker: Raul Nieves PhD, Phone: [phone] Performed By: #### C H50, TPO, RA, DARIEL, C3, C4, THYGLOB AB, CARDIO GMA, CCP, B2 GLYPROT, CHROMATIN #### [facility] , Bilirubin Test strip Ql (U)O rdered By: Boo Godoy on 01-17-2025 Bilirubin Ql (U) Bilirubin.total [Pre sence] in Urine by Test strip Negative [facility] Bilirubin.total [Mass/volume ] in Serum or PlasmaOrdered By: Boo Godoy on 01-17-2025 Bilirubin [Mass/Vol] Bilirubin.total [Mass/volume] in Serum or Plasma 0.3-1.0 [facility] C reactive protein [Mass/vol ume] in Serum or PlasmaOrdered By: Boo Godoy on 01-17-2025 CRP [Mass/Vol] C reactive protein [Mass/volume] in Serum or Plasma 0.0-0.5 [facility] C-Reactive Proteinon 025 CRP [Mass/Vol] mg/L Normal 0.0-0.5 [facility] Comment on above: Performed By: #### C H50, TPO, RA, DARIEL, C3, C4, THYGLOB AB, CARDIO GMA, CCP, B2 GLYPROT, CHROMATIN #### [facility] , Calcium [Mass/volume] in Ser um or PlasmaOrdered By: Boo Godoy on 01-17-2025 Calcium [Mass/Vol] Calcium [Mass/volume ] in Serum or Plasma 8.6-10.3 [facility] Carbon dioxide, total [Moles /volume] in Serum or PlasmaOrdered By: Boo Godoy on 01-17-2025 CO2 [Moles/Vol] Carbon dioxide, tota l [Moles/volume] in Serum or Plasma 21.0-31.0 [facility] Chloride [Moles/volume] in S radha or PlasmaOrdered By: Boo Godoy on 01-17-2025 Chloride [Moles/Vol] Chloride [Moles/vol ume] in Serum or Plasma High 98-107 [facility] Chromatin Antibodyon 025 Chromatin Antibody <0.2 Normal 0.0-0.9 [facility] Comment on above: Result Comment: Perf ormed at: - [facility] [address] [place], [place] [id number] Black Top Raker: Raul Nieves PhD, Phone: [phone] PERFORMED BY: [facility] [address] [place] [address] PATHOLOGIST NEWSPERSON RHONDA BAUER M.D. Performed By: #### C H50, TPO, RA, DARIEL, C3, C4, THYGLOB AB, CARDIO GMA, CCP, B2 GLYPROT, CHROMATIN #### [facility] , Coagulation Profileon 2024 aPTT Coag (Bld) [Time] 29.6 s Normal 25.1-36.5 [facility] Comment on above: Result Comment: A he matocrit value greater than 55% may lead to inaccurate results in coagulation testing. Patients having hematocrit values >55% require a special collection tube for coagulation studies. Please contact the laboratory at [phone] for redraw instructions. PERFORMED BY: [address] [place] [address] PATHOLOGIST NEWSPERSON RHONDA BAUER M.D. Performed By: #### C H50, TPO, RA, DARIEL, C3, C4, THYGLOB AB, CARDIO GMA, CCP, B2 GLYPROT, CHROMATIN #### [facility] , INR Coag (PPP) [Relative time] 1.0 {INR} Normal [facility] Comment on above: Result Comment: [...] (PPP) [Time] 11.5 s Normal 9.0-12.9 [facility] Comment on above: Result Comment: A he matocrit value greater than 55% may lead to inaccurate results in coagulation testing. Patients having hematocrit values >55% require a special collection tube for coagulation studies. Please contact the laboratory at [phone] for redraw instructions. Performed By: #### C H50, TPO, RA, DARIEL, C3, C4, THYGLOB AB, CARDIO GMA, CCP, B2 GLYPROT, CHROMATIN #### [facility] , Color Auto (U)Ordered By: Purnima Godoy on 01-17-2025 Color (U) Color of Urine by Auto Yellow [facility] Complement C3on 01-17-2025 Complement C3 132 mg/dL Normal 82-167 [facility] Comment on above: Performed By: #### C H50, TPO, RA, DARIEL, C3, C4, THYGLOB AB, CARDIO GMA, CCP, B2 GLYPROT, CHROMATIN #### [facility] , Complement C4on 01-17-2025 Complement C4 26 mg/dL Normal 12-38 [facility] Comment on above: Performed By: #### C H50, TPO, RA, DARIEL, C3, C4, THYGLOB AB, CARDIO GMA, CCP, B2 GLYPROT, CHROMATIN #### [facility] , Complement Total (CH50)on Complement Total (CH50) >60 Normal >41 [facility] Comment on above: Result Comment: [...] out of range values. Performed at: - [facility] [id number] Black Top Raker: Raul Nieves PhD, Phone: [phone] PERFORMED BY: [address] [address] PATHOLOGIST NEWSPERSON RHONDA BAUER M.D. Performed By: #### C H50, TPO, RA, DARIEL, C3, C4, THYGLOB AB, CARDIO GMA, CCP, B2 GLYPROT, CHROMATIN #### [facility] , Complete Blood Count Auto Di ffon 01-17-2025 Basophils (Bld) [#/Vol] 0.1 10*3/uL Normal 0.0-0.2 [facility] Comment on above: Performed By: #### C H50, TPO, RA, DARIEL, C3, C4, THYGLOB AB, CARDIO GMA, CCP, B2 GLYPROT, CHROMATIN #### [facility] , Basophils/100 WBC (Bld) 0.9 % Normal . [facility] Comment on above: Performed By: #### C H50, TPO, RA, DARIEL, C3, C4, THYGLOB AB, CARDIO GMA, CCP, B2 GLYPROT, CHROMATIN #### [facility] , Eosinophils (Bld) [#/Vol] 0.1 10*3/uL Normal 0.0-0.45 [facility] Comment on above: Performed By: #### C H50, TPO, RA, DARIEL, C3, C4, THYGLOB AB, CARDIO GMA, CCP, B2 GLYPROT, CHROMATIN #### [facility] , Eosinophils/100 WBC (Bld) 1.8 % Normal . [facility] Comment on above: Performed By: #### C H50, TPO, RA, DARIEL, C3, C4, THYGLOB AB, CARDIO GMA, CCP, B2 GLYPROT, CHROMATIN #### [facility] , Erythrocyte distribution width (RBC) [Ratio] 12.8 % Normal 11.9-15.3 [facility] Comment on above: Performed By: #### C H50, TPO, RA, DARIEL, C3, C4, THYGLOB AB, CARDIO GMA, CCP, B2 GLYPROT, CHROMATIN #### [facility] , Hematocrit (Bld) [Volume fraction] 38.9 % Normal 34.0-46.4 [facility] Comment on above: Performed By: #### C H50, TPO, RA, DARIEL, C3, C4, THYGLOB AB, CARDIO GMA, CCP, B2 GLYPROT, CHROMATIN #### [facility] , Hemoglobin (Bld) [Mass/Vol] 12.9 g/dL Normal 11.8-15.4 [facility] Comment on above: Performed By: #### C H50, TPO, RA, DARIEL, C3, C4, THYGLOB AB, CARDIO GMA, CCP, B2 GLYPROT, CHROMATIN #### [facility] , Lymphocytes (Bld) [#/Vol] 1.4 10*3/uL Normal 1.00-4.8 [facility] Comment on above: Performed By: #### C H50, TPO, RA, DARIEL, C3, C4, THYGLOB AB, CARDIO GMA, CCP, B2 GLYPROT, CHROMATIN #### [facility] , Lymphocytes/100 WBC (Bld) 21.0 % Normal . [facility] Comment on above: Performed By: #### C H50, TPO, RA, DARIEL, C3, C4, THYGLOB AB, CARDIO GMA, CCP, B2 GLYPROT, CHROMATIN #### [facility] , MCH (RBC) [Entitic mass] 30.2 pg Normal 24.7-34.3 [facility] Comment on above: Performed By: #### C H50, TPO, RA, DARIEL, C3, C4, THYGLOB AB, CARDIO GMA, CCP, B2 GLYPROT, CHROMATIN #### [facility] , MCV (RBC) [Entitic vol] 90.5 fL Normal 80-100 [facility] Comment on above: Performed By: #### C H50, TPO, RA, DARIEL, C3, C4, THYGLOB AB, CARDIO GMA, CCP, B2 GLYPROT, CHROMATIN #### [facility] , Mean Corpuscular HGB Conc 33.3 g/dL Normal 32.0-35.0 [facility] Comment on above: Performed By: #### C H50, TPO, RA, DARIEL, C3, C4, THYGLOB AB, CARDIO GMA, CCP, B2 GLYPROT, CHROMATIN #### [facility] , Monocytes (Bld) [#/Vol] 0.6 10*3/uL Normal 0.0-0.8 [facility] Comment on above: Performed By: #### C H50, TPO, RA, DARIEL, C3, C4, THYGLOB AB, CARDIO GMA, CCP, B2 GLYPROT, CHROMATIN #### [facility] , Monocytes/100 WBC (Bld) 8.9 % Normal . [facility] Comment on above: Performed By: #### C H50, TPO, RA, DARIEL, C3, C4, THYGLOB AB, CARDIO GMA, CCP, B2 GLYPROT, CHROMATIN #### [facility] , Neutrophils (Bld) [#/Vol] 4.4 10*3/uL Normal 1.8-7.7 [facility] Comment on above: Performed By: #### C H50, TPO, RA, DARIEL, C3, C4, THYGLOB AB, CARDIO GMA, CCP, B2 GLYPROT, CHROMATIN #### [facility] , Neutrophils/100 WBC (Bld) 67.4 % Normal . [facility] Comment on above: Performed By: #### C H50, TPO, RA, DARIEL, C3, C4, THYGLOB AB, CARDIO GMA, CCP, B2 GLYPROT, CHROMATIN #### [facility] , NRBC% 0.2 /100{WBC} Normal 0-0.5 [facility] Comment on above: Performed By: #### C H50, TPO, RA, DARIEL, C3, C4, THYGLOB AB, CARDIO GMA, CCP, B2 GLYPROT, CHROMATIN #### [facility] , Platelet mean volume (Bld) [Entitic vol] 9.4 fL Normal 6.3-10.7 [facility] Comment on above: Performed By: #### C H50, TPO, RA, DARIEL, C3, C4, THYGLOB AB, CARDIO GMA, CCP, B2 GLYPROT, CHROMATIN #### [facility] , Platelets (Bld) [#/Vol] 240 10*3/uL Normal 150-450 [facility] Comment on above: Performed By: #### C H50, TPO, RA, DARIEL, C3, C4, THYGLOB AB, CARDIO GMA, CCP, B2 GLYPROT, CHROMATIN #### [facility] , RBC (Bld) [#/Vol] 4.29 10*6/uL Normal 3.60-5.00 [facility] Comment on above: Performed By: #### C H50, TPO, RA, DARIEL, C3, C4, THYGLOB AB, CARDIO GMA, CCP, B2 GLYPROT, CHROMATIN #### [facility] , WBC (Bld) [#/Vol] 6.5 10*3/uL Normal 3.8-11.6 [facility] Comment on above: Performed By: #### C H50, TPO, RA, DARIEL, C3, C4, THYGLOB AB, CARDIO GMA, CCP, B2 GLYPROT, CHROMATIN #### [facility] , Comprehensive Metabolic Pane israel 01-17-2025 Albumin [Mass/Vol] 4.2 g/dL Normal 3.5-5.7 [facility] Comment on above: Performed By: #### C H50, TPO, RA, DARIEL, C3, C4, THYGLOB AB, CARDIO GMA, CCP, B2 GLYPROT, CHROMATIN #### [facility] , Albumin/Globulin [Mass ratio] 1.8 {ratio} Normal [facility] Comment on above: Performed By: #### C H50, TPO, RA, DARIEL, C3, C4, THYGLOB AB, CARDIO GMA, CCP, B2 GLYPROT, CHROMATIN #### [facility] , ALP [Catalytic activity/Vol] 56 U/L Normal 34-104 [facility] Comment on above: Performed By: #### C H50, TPO, RA, DARIEL, C3, C4, THYGLOB AB, CARDIO GMA, CCP, B2 GLYPROT, CHROMATIN #### [facility] , ALT [Catalytic activity/Vol] 14 U/L Normal 7-52 [facility] Comment on above: Performed By: #### C H50, TPO, RA, DARIEL, C3, C4, THYGLOB AB, CARDIO GMA, CCP, B2 GLYPROT, CHROMATIN #### [facility] , Anion gap [Moles/Vol] 10.0 mmol/L Normal 6.0-15.0 [facility] Comment on above: Performed By: #### C H50, TPO, RA, DARIEL, C3, C4, THYGLOB AB, CARDIO GMA, CCP, B2 GLYPROT, CHROMATIN #### [facility] , AST [Catalytic activity/Vol] 16 U/L Normal 13-39 [facility] Comment on above: Performed By: #### C H50, TPO, RA, DARIEL, C3, C4, THYGLOB AB, CARDIO GMA, CCP, B2 GLYPROT, CHROMATIN #### [facility] , Bilirubin [Mass/Vol] 0.8 mg/dL Normal 0.3-1.0 [facility] Comment on above: Performed By: #### C H50, TPO, RA, DARIEL, C3, C4, THYGLOB AB, CARDIO GMA, CCP, B2 GLYPROT, CHROMATIN #### [facility] , Calcium [Mass/Vol] 9.8 mg/dL Normal 8.6-10.3 [facility] Comment on above: Performed By: #### C H50, TPO, RA, DARIEL, C3, C4, THYGLOB AB, CARDIO GMA, CCP, B2 GLYPROT, CHROMATIN #### [facility] , Chloride [Moles/Vol] 108 mmol/L High 98-107 [facility] Comment on above: Performed By: #### C H50, TPO, RA, DARIEL, C3, C4, THYGLOB AB, CARDIO GMA, CCP, B2 GLYPROT, CHROMATIN #### [facility] , CO2 [Moles/Vol] 28.0 mmol/L Normal 21.0-31.0 [facility] Comment on above: Performed By: #### C H50, TPO, RA, DARIEL, C3, C4, THYGLOB AB, CARDIO GMA, CCP, B2 GLYPROT, CHROMATIN #### [facility] , Creatinine [Mass/Vol] 0.69 mg/dL Normal 0.60-1.20 [facility] Comment on above: Performed By: #### C H50, TPO, RA, DARIEL, C3, C4, THYGLOB AB, CARDIO GMA, CCP, B2 GLYPROT, CHROMATIN #### [facility] , GFR/1.73 sq M.predicted MDRD (S/P/Bld) [Vol rate/Area] mL/min/{1.73_m2} Normal [facility] Comment on above: Performed By: #### C H50, TPO, RA, DARIEL, C3, C4, THYGLOB AB, CARDIO GMA, CCP, B2 GLYPROT, CHROMATIN #### [facility] , Globulin (S) [Mass/Vol] 2.4 g/dL Normal [facility] Comment on above: Performed By: #### C H50, TPO, RA, DARIEL, C3, C4, THYGLOB AB, CARDIO GMA, CCP, B2 GLYPROT, CHROMATIN #### [facility] , Glucose [Mass/Vol] 103 mg/dL High 70-100 [facility] Comment on above: Result Comment: [place] Glucose Reference Range is dependent on time and content of last meal. Glucose of more than 200 mg/dL in a nonstressed, ambulatory subject supports the diagnosis of Diabetes Mellitus. ADA recommended reference range Performed By: #### C H50, TPO, RA, DARIEL, C3, C4, THYGLOB AB, CARDIO GMA, CCP, B2 GLYPROT, CHROMATIN #### [facility] , Potassium [Moles/Vol] 4.0 mmol/L Normal 3.5-5.1 [facility] Comment on above: Performed By: #### C H50, TPO, RA, DARIEL, C3, C4, THYGLOB AB, CARDIO GMA, CCP, B2 GLYPROT, CHROMATIN #### [facility] , Protein [Mass/Vol] 6.6 g/dL Normal 6.4-8.9 [facility] Comment on above: Performed By: #### C H50, TPO, RA, DARIEL, C3, C4, THYGLOB AB, CARDIO GMA, CCP, B2 GLYPROT, CHROMATIN #### [facility] , Sodium [Moles/Vol] 142 mmol/L Normal 136-145 [facility] Comment on above: Performed By: #### C H50, TPO, RA, DARIEL, C3, C4, THYGLOB AB, CARDIO GMA, CCP, B2 GLYPROT, CHROMATIN #### [facility] , Urea nitrogen [Mass/Vol] 19 mg/dL Normal 7-25 [facility] Comment on above: Performed By: #### C H50, TPO, RA, DARIEL, C3, C4, THYGLOB AB, CARDIO GMA, CCP, B2 GLYPROT, CHROMATIN #### [facility] , Creatine Kinaseon 01-17-2025 CK [Catalytic activity/Vol] 88 U/L Normal 30-223 [facility] Comment on above: Result Comment: PERF ORMED BY: [facility] [address] [place] [address] PATHOLOGIST [employer] RHONDA BAUER M.D. Performed By: #### C H50, TPO, RA, DARIEL, C3, C4, THYGLOB AB, CARDIO GMA, CCP, B2 GLYPROT, CHROMATIN #### [facility] , Creatine kinase [Enzymatic a ctivity/volume] in Serum or PlasmaOrdered By: Boo Godoy on 01-17-2025 CK [Catalytic activity/Vol] Creatine kinase [Enzymatic activity/volume] in Serum or Plasma 30-223 [facility] Creatinine [Mass/volume] in Serum or PlasmaOrdered By: Boo Godoy on 01-17-2025 Creatinine [Mass/Vol] Creatinine [Mass/v olume] in Serum or Plasma 0.60-1.20 [facility] Cyclic Citrulliated Pep Abon 01-17-2025 Cyclic Citrulliated Pep Ab 5 Normal 0-19 [facility] Comment on above: Result Comment: Nega tive <20 Weak positive 20 - 39 Moderate positive 40 - 59 Strong positive >59 Performed at: [facility] [address] [id number] Black Top Raker: Raul Nieves PhD, Phone: [phone] Performed By: #### C H50, TPO, RA, DARIEL, C3, C4, THYGLOB AB, CARDIO GMA, CCP, B2 GLYPROT, CHROMATIN #### [facility] , Dipstick and Microscopicon 0 01-17-2025 Appearance (U) Clear Normal Clear [facility] Comment on above: Order Comment: Name Collection Type:: Clean-Voided Midstream Performed By: #### C H50, TPO, RA, DARIEL, C3, C4, THYGLOB AB, CARDIO GMA, CCP, B2 GLYPROT, CHROMATIN #### [facility] , Bacteria,Urine None Seen Normal None Seen [facility] Comment on above: Order Comment: Name Collection Type:: Clean-Voided Midstream Performed By: #### C H50, TPO, RA, DARIEL, C3, C4, THYGLOB AB, CARDIO GMA, CCP, B2 GLYPROT, CHROMATIN #### [facility] , Bilirubin,Urine Negative Normal Negative [facility] Comment on above: Order Comment: Name Collection Type:: Clean-Voided Midstream Performed By: #### C H50, TPO, RA, DARIEL, C3, C4, THYGLOB AB, CARDIO GMA, CCP, B2 GLYPROT, CHROMATIN #### [facility] , Color (U) Light-Yellow Normal Yellow [facility] Comment on above: Order Comment: Name Collection Type:: Clean-Voided Midstream Performed By: #### C H50, TPO, RA, DARIEL, C3, C4, THYGLOB AB, CARDIO GMA, CCP, B2 GLYPROT, CHROMATIN #### [facility] , Glucose Ql (U) Normal Normal Normal [facility] Comment on above: Order Comment: Name Collection Type:: Clean-Voided Midstream Performed By: #### C H50, TPO, RA, DARIEL, C3, C4, THYGLOB AB, CARDIO GMA, CCP, B2 GLYPROT, CHROMATIN #### [facility] , Hyaline Casts,Urine 0-8 Normal 0-8 [facility] Comment on above: Order Comment: Name Collection Type:: Clean-Voided Midstream Performed By: #### C H50, TPO, RA, DARIEL, C3, C4, THYGLOB AB, CARDIO GMA, CCP, B2 GLYPROT, CHROMATIN #### [facility] , Ketones Ql (U) Negative Normal Negative [facility] Comment on above: Order Comment: Name Collection Type:: Clean-Voided Midstream Performed By: #### C H50, TPO, RA, DARIEL, C3, C4, THYGLOB AB, CARDIO GMA, CCP, B2 GLYPROT, CHROMATIN #### [facility] , Leukocyte esterase Test strip Ql (U) Negative Normal Negative [facility] Comment on above: Order Comment: Name Collection Type:: Clean-Voided Midstream Performed By: #### C H50, TPO, RA, DARIEL, C3, C4, THYGLOB AB, CARDIO GMA, CCP, B2 GLYPROT, CHROMATIN #### [facility] , Mucus,Urine 1+ Critically abnormal [facility] Comment on above: Order Comment: Name Collection Type:: Clean-Voided Midstream Result Comment: PERF ORMED BY: [place] [address] [place] [address] PATHOLOGIST [employer] RHONDA BAUER M.D. Performed By: #### C H50, TPO, RA, DARIEL, C3, C4, THYGLOB AB, CARDIO GMA, CCP, B2 GLYPROT, CHROMATIN #### [facility] , Nitrite,Urine Negative Normal Negative [facility] Comment on above: Order Comment: Name Collection Type:: Clean-Voided Midstream Performed By: #### C H50, TPO, RA, DARIEL, C3, C4, THYGLOB AB, CARDIO GMA, CCP, B2 GLYPROT, CHROMATIN #### [facility] , Occult Blood,Urine Negative Normal Negative [facility] Comment on above: Order Comment: Name Collection Type:: Clean-Voided Midstream Performed By: #### C H50, TPO, RA, DARIEL, C3, C4, THYGLOB AB, CARDIO GMA, CCP, B2 GLYPROT, CHROMATIN #### [facility] , pH (U) 7.0 [pH] Normal 5.0-9.0 [facility] Comment on above: Order Comment: Name Collection Type:: Clean-Voided Midstream Performed By: #### C H50, TPO, RA, DARIEL, C3, C4, THYGLOB AB, CARDIO GMA, CCP, B2 GLYPROT, CHROMATIN #### [facility] , Protein,Urine Negative Normal Negative [facility] Comment on above: Order Comment: Name Collection Type:: Clean-Voided Midstream Performed By: #### C H50, TPO, RA, DARIEL, C3, C4, THYGLOB AB, CARDIO GMA, CCP, B2 GLYPROT, CHROMATIN #### [facility] , RBC,Urine 1-2 Normal 0-4 [facility] Comment on above: Order Comment: Name Collection Type:: Clean-Voided Midstream Performed By: #### C H50, TPO, RA, DARIEL, C3, C4, THYGLOB AB, CARDIO GMA, CCP, B2 GLYPROT, CHROMATIN #### [facility] , Specificy [place],Urine 1.022 Normal 1.001-1.03 0 [facility] Comment on above: Order Comment: Name Collection Type:: Clean-Voided Midstream Performed By: #### C H50, TPO, RA, DARIEL, C3, C4, THYGLOB AB, CARDIO GMA, CCP, B2 GLYPROT, CHROMATIN #### [facility] , Squamous Epithelial Cell,Urine 1-2 Normal 0-2 [facility] Comment on above: Order Comment: Name Collection Type:: Clean-Voided Midstream Performed By: #### C H50, TPO, RA, DARIEL, C3, C4, THYGLOB AB, CARDIO GMA, CCP, B2 GLYPROT, CHROMATIN #### [facility] , Urobilinogen,Urine Normal Normal Normal [facility] Comment on above: Order Comment: Name Collection Type:: Clean-Voided Midstream Performed By: #### C H50, TPO, RA, DARIEL, C3, C4, THYGLOB AB, CARDIO GMA, CCP, B2 GLYPROT, CHROMATIN #### [facility] , WBC,Urine 1-2 Normal 0-4 [facility] Comment on above: Order Comment: Name Collection Type:: Clean-Voided Midstream Performed By: #### C H50, TPO, RA, DARIEL, C3, C4, THYGLOB AB, CARDIO GMA, CCP, B2 GLYPROT, CHROMATIN #### [facility] , Eosinophils Auto (Bld) [#/Vo l]Ordered By: Boo Godoy on 01-17-2025 Eosinophils (Bld) [#/Vol] Automated eosinophil count 0.0-0.45 [facility] Eosinophils/100 WBC Auto (Bl d)Ordered By: Boo Godoy on 01-17-2025 Eosinophils/100 WBC (Bld) Automated eosinophil % . [facility] Epithelial cells.squamous [# /area] in Urine sediment by Automated countOrdered By: Boo Godoy on 01-17-2025 Epithelial cells.squamous Auto (Urine sed) [#/Area] Epithelial cells.squamous [#/area] in Urine sediment by Automated count 0-2 [facility] Erythrocyte Sedimentation Ra nan 01-17-2025 ESR (Bld) [Velocity] 22 mm/h Normal 0-29 [facility] Comment on above: Result Comment: PERF ORMED BY: [facility] [address] [place] [address] PATHOLOGIST [employer] RHONDA BAUER M.D. Performed By: #### C H50, TPO, RA, DARIEL, C3, C4, THYGLOB AB, CARDIO GMA, CCP, B2 GLYPROT, CHROMATIN #### [facility] , Erythrocyte distribution wid th Auto (RBC) [Ratio]Ordered By: Boo Godoy on 01-17-2025 Erythrocyte distribution width (RBC) [Ratio] Erythrocyte distribution width [Ratio] by Automated count 11.9-15.3 [facility] Erythrocyte sedimentation ra te by Photometric methodOrdered By: Boo Godoy on 01-17-2025 ESR Photometric method (Bld) [Velocity] Erythrocyte sedimentation rate by Photometric method 0-29 [facility] Erythrocytes [#/area] in Uri ne sediment by Automated countOrdered By: Boo Godoy on 01-17-2025 RBC Auto (Urine sed) [#/Area] Erythrocytes [#/area] in Urine sediment by Automated count 0-4 [facility] Free T4 (Free Thyroxine)on 0 01-17-2025 Free T4 [Mass/Vol] 1.62 ng/dL High 0.61-1.12 [facility] Comment on above: Performed By: #### C H50, TPO, RA, DARIEL, C3, C4, THYGLOB AB, CARDIO GMA, CCP, B2 GLYPROT, CHROMATIN #### [facility] , Globulin Calc (S) [Mass/Vol] Ordered By: Boo Godoy on 01-17-2025 Globulin (S) [Mass/Vol] Serum globulin measurement by calculation (mass/volume) [facility] Glucose [Mass/volume] in Ser um or PlasmaOrdered By: Boo Godoy on 01-17-2025 Glucose [Mass/Vol] Glucose [Mass/volume ] in Serum or Plasma High 70-100 [facility] Comment on above: ADA recommended refe rence rangeRandom Glucose Reference Range is dependent on time and content of last meal. Glucose of more than 200 mg/dL in a nonstressed, ambulatory subject supports the diagnosis of Diabetes Mellitus. Glucose [Mass/volume] in Uri ne by Test stripOrdered By: Boo Godoy on 01-17-2025 Glucose Test strip (U) [Mass/Vol] Glucose [Mass/volume] in Urine by Test strip Normal [facility] Hematocrit Auto (Bld) [Volum e fraction]Ordered By: Boo Godoy on 01-17-2025 Hematocrit (Bld) [Volume fraction] Hematocrit [Volume Fraction] of Blood by Automated count 34.0-46.4 [facility] Hemoglobin Test strip Ql (U) Ordered By: Boo Godoy on 01-17-2025 Hemoglobin Ql (U) Hemoglobin [Presence ] in Urine by Test strip Negative [facility] Hemoglobin [Mass/volume] in BloodOrdered By: Boo Godoy on 01-17-2025 Hemoglobin (Bld) [Mass/Vol] Hemoglobin [Mass/volume] in Blood 11.8-15.4 [facility] Histone Antibodieson 025 Histone Antibodies 0.4 Normal 0.0-0.9 [facility] Comment on above: Result Comment: Nega tive <1.0 Weak Positive 1.0 - 1.5 Moderate Positive 1.6 - 2.5 Strong Positive >2.5 Performed at: - [facility] [id number] [employer] Raker: Epi Buckley MD, Phone: [phone] Performed By: #### C H50, TPO, RA, DARIEL, C3, C4, THYGLOB AB, CARDIO GMA, CCP, B2 GLYPROT, CHROMATIN #### [facility] , Hyaline casts [#/area] in Ur ine sediment by Automated countOrdered By: Boo Godoy on 01-17-2025 Hyaline casts Auto (Urine sed) [#/Area] Hyaline casts [#/area] in Urine sediment by Automated count 0-8 [facility] INR in Platelet poor plasma by Coagulation assayOrdered By: Boo Godoy on 01-17-2025 INR Coag (PPP) [Relative time] INR in Platelet poor plasma by Coagulation assay [facility] Comment on above: INR Therapeutic Rang e [...] 01-17-2025 CHIO-1 Antibody <0.2 Normal 0.0-0.9 [facility] Comment on above: Performed By: #### C H50, TPO, RA, DARIEL, C3, C4, THYGLOB AB, CARDIO GMA, CCP, B2 GLYPROT, CHROMATIN #### [facility] , Ketones Test strip Ql (U)Ord ered By: Boo Godoy on 01-17-2025 Ketones Ql (U) Ketones [Presence] i n Urine by Test strip Negative [facility] Leukocyte esterase [Presence ] in Urine by Test stripOrdered By: Boo Ambrosiorow on 01-17-2025 Leukocyte esterase Test strip Ql (U) Leukocyte esterase [Presence] in Urine by Test strip Negative [facility] Leukocytes [#/area] in Urine sediment by Automated countOrdered By: Boo Godoy on 01-17-2025 WBC Auto (Urine sed) [#/Area] Leukocytes [#/area] in Urine sediment by Automated count 0-4 [facility] Leukocytes [#/volume] correc nida for nucleated erythrocytes in Blood by Automated counOrdered By: Boo Godoy on 01-17-2025 WBC corrected for nucl RBC Auto (Bld) [#/Vol] Leukocytes [#/volume] corrected for nucleated erythrocytes in Blood by Automated coun 3.8-11.6 [facility] Lupus Anticoagulant Compon 0 01-17-2025 Dilute Prothrombin Time (dPt) 35.2 Normal 0.0-47.6 [facility] Comment on above: Performed By: #### C H50, TPO, RA, DARIEL, C3, C4, THYGLOB AB, CARDIO GMA, CCP, B2 GLYPROT, CHROMATIN #### [facility] , dPT Confirm Ratio 0.99 Normal 0.00-1.34 [facility] Comment on above: Performed By: #### C H50, TPO, RA, DARIEL, C3, C4, THYGLOB AB, CARDIO GMA, CCP, B2 GLYPROT, CHROMATIN #### [facility] , DRVVT Lupus 36.9 Normal 0.0-47.0 [facility] Comment on above: Performed By: #### C H50, TPO, RA, DARIEL, C3, C4, THYGLOB AB, CARDIO GMA, CCP, B2 GLYPROT, CHROMATIN #### [facility] , Interpretation Comment: Normal . [facility] Comment on above: Result Comment: No l upus anticoagulant was detected. Performed at: [place] [id number] [employer] Raker: Epi Buckley MD, Phone: [phone] PERFORMED BY: [facility] [place] [address] PATHOLOGIST [employer] RHONDA BAUER M.D. Performed By: #### C H50, TPO, RA, DARIEL, C3, C4, THYGLOB AB, CARDIO GMA, CCP, B2 GLYPROT, CHROMATIN #### [facility] , PTT-LA 30.7 Normal 0.0-43.5 [facility] Comment on above: Performed By: #### C H50, TPO, RA, DARIEL, C3, C4, THYGLOB AB, CARDIO GMA, CCP, B2 GLYPROT, CHROMATIN #### [facility] , Thrombin Time 16.6 Normal 0.0-23.0 [facility] Comment on above: Performed By: #### C H50, TPO, RA, DARIEL, C3, C4, THYGLOB AB, CARDIO GMA, CCP, B2 GLYPROT, CHROMATIN #### [facility] , Lymphocytes Auto (Bld) [#/Vo l]Ordered By: Boo Godoy on 01-17-2025 Lymphocytes (Bld) [#/Vol] Lymphocytes [#/volume] in Blood by Automated count 1.00-4.8 [facility] Lymphocytes/100 WBC Auto (Bl d)Ordered By: Boo Godoy on 01-17-2025 Lymphocytes/100 WBC (Bld) Lymphocytes/100 leukocytes in Blood by Automated count . [facility] MCH Auto (RBC) [Entitic mass ]Ordered By: Boo Godoy on 01-17-2025 MCH (RBC) [Entitic mass] MCH [Entitic mass] by Automated count 24.7-34.3 [facility] MCHC Auto (RBC) [Mass/Vol]Or dered By: Boo Godoy on 01-17-2025 MCHC (RBC) [Mass/Vol] MCHC [Mass/volume] by Automated count 32.0-35.0 [facility] MCV Auto (RBC) [Entitic vol] Ordered By: Boo Godoy on 01-17-2025 MCV (RBC) [Entitic vol] MCV [Entitic volume] by Automated count 80-100 [facility] Monocytes Auto (Bld) [#/Vol] Ordered By: Boo Godoy on 01-17-2025 Monocytes (Bld) [#/Vol] Automated blood monocyte count 0.0-0.8 [facility] Monocytes/100 WBC Auto (Bld) Ordered By: Boo Godoy on 01-17-2025 Monocytes/100 WBC (Bld) Automated monocyte % . [facility] Mucus [Presence] in Urine by AutomatedOrdered By: Boo Godoy on 01-17-2025 Mucus Auto Ql (U) Mucus [Presence] in Urine by Automated Abnormal [facility] Neutrophils Auto (Bld) [#/Vo l]Ordered By: Boo Godoy on 01-17-2025 Neutrophils (Bld) [#/Vol] Neutrophils [#/volume] in Blood by Automated count 1.8-7.7 [facility] Neutrophils/100 WBC Auto (Bl d)Ordered By: Boo Godoy on 01-17-2025 Neutrophils/100 WBC (Bld) Automated neutrophil % . [facility] Nitrite Test strip Ql (U)Ord ered By: Boo Godoy on 01-17-2025 Nitrite Ql (U) Nitrite [Presence] i n Urine by Test strip Negative [facility] No Panel InformationOrdered By: Boo Godoy on 01-17-2025 Estimated GFR (CKD-EPI) > 60.0 mL/Min [facility] Creatinine Clearance (Chem N/A [facility] Nucleated erythrocytes [Pres ence] in Blood by Automated countOrdered By: Boo Godoy on 01-17-2025 Nucleated RBC Auto Ql (Bld) Nucleated erythrocytes [Presence] in Blood by Automated count 0-0.5 [facility] Platelet mean volume Auto (B ld) [Entitic vol]Ordered By: Boo Godoy on 01-17-2025 Platelet mean volume (Bld) [Entitic vol] Platelet mean volume [Entitic volume] in Blood by Automated count 6.3-10.7 [facility] Platelets Auto (Bld) [#/Vol] Ordered By: Boo Godoy on 01-17-2025 Platelets (Bld) [#/Vol] Platelets [#/volume] in Blood by Automated count 150-450 [facility] Potassium [Moles/volume] in Serum or PlasmaOrdered By: Boo Godoy on 01-17-2025 Potassium [Moles/Vol] Potassium [Moles/v olume] in Serum or Plasma 3.5-5.1 [facility] Protein Test strip (U) [Mass /Vol]Ordered By: Boo Godoy on 01-17-2025 Protein (U) [Mass/Vol] Protein [Mass/volume] in Urine by Test strip Negative [facility] Protein [Mass/volume] in Ser um or PlasmaOrdered By: Boo Godoy on 01-17-2025 Protein [Mass/Vol] Protein [Mass/volume ] in Serum or Plasma 6.4-8.9 [facility] Prothrombin time (PT)Ordered By: Boo Godoy on 01-17-2025 PT Coag (PPP) [Time] Prothrombin time (PT) 9.0- 12.9 [facility] Comment on above: A hematocrit value g reater than 55% may lead to inaccurate results in coagulation testing. Patients having hematocrit values >55% require a special collection tube for coagulation studies. Please contact the laboratory at [phone] for redraw instructions. RBC Auto (Bld) [#/Vol]Ordere d By: Boo Godoy on 01-17-2025 RBC (Bld) [#/Vol] Erythrocytes [#/volu me] in Blood by Automated count 3.60-5.00 [facility] RPR w/rfx to Quant TP Abson 01-17-2025 RPR, Rfx Quant RPR Non-Reactive Normal Non Reactive [facility] Comment on above: Result Comment: Perf ormed at: CB - [facility] [address] [id number] Black Top Raker: Raul Nieves PhD, Phone: [phone] PERFORMED BY: [facility] [address] [place] [address] PATHOLOGIST [place] RHONDA BAUER M.D. Performed By: #### C H50, TPO, RA, DARIEL, C3, C4, THYGLOB AB, CARDIO GMA, CCP, B2 GLYPROT, CHROMATIN #### [facility] , Rheumatoid Factoron 01-18-20 Rheumatoid Factor <10.0 Normal <14.0 [facility] Comment on above: Result Comment: Perf ormed at: [facility] [address] [id number] Black Top Raker: Raul Nieves PhD, Phone: [phone] Performed By: #### C H50, TPO, RA, DARIEL, C3, C4, THYGLOB AB, CARDIO GMA, CCP, B2 GLYPROT, CHROMATIN #### [facility] , Scleroderma 70 Antibodieson 01-17-2025 Scleroderma 70 Antibodies 0.2 Normal 0.0-0.9 [facility] Comment on above: Performed By: #### C H50, TPO, RA, DARIEL, C3, C4, THYGLOB AB, CARDIO GMA, CCP, B2 GLYPROT, CHROMATIN #### [facility] , Serum or plasma albumin/glob ulin mass ratioOrdered By: Boo Godoy on 01-17-2025 Albumin/Globulin [Mass ratio] Serum or plasma albumin/globulin mass ratio [facility] Serum or plasma anion gap de terminationOrdered By: Boo Godoy on 01-17-2025 Anion gap [Moles/Vol] Serum or plasma an ion gap determination 6.0-15.0 [facility] Sjogrens Anti-SSA/SSBon SS-A/Ro Sjogrens Antibody <0.2 Normal 0.0-0.9 [facility] Comment on above: Performed By: #### C H50, TPO, RA, DARIEL, C3, C4, THYGLOB AB, CARDIO GMA, CCP, B2 GLYPROT, CHROMATIN #### [facility] , SS-B/La Sjogrens Antibody <0.2 Normal 0.0-0.9 [facility] Comment on above: Performed By: #### C H50, TPO, RA, DARIEL, C3, C4, THYGLOB AB, CARDIO GMA, CCP, B2 GLYPROT, CHROMATIN #### [facility] , Sodium [Moles/volume] in Ser um or PlasmaOrdered By: Boo Godoy on 01-17-2025 Sodium [Moles/Vol] Sodium [Moles/volume ] in Serum or Plasma 136-145 [facility] Specific gravity Test strip (U) [Rel density]Ordered By: Boo Godoy on 01-17-2025 Specific gravity (U) [Rel density] Specific gravity of Urine by Test strip 1.001-1.03 0 [facility] Thyroid Peroxidase Antibodie son 01-17-2025 Thyroid Peroxidase Antibodies 116 [IU]/mL High 0-34 [facility] Comment on above: Result Comment: Perf ormed at: [facility] [address] [id number] Black Top Raker: Raul Nieves PhD, Phone: [phone] Performed By: #### C H50, TPO, RA, DARIEL, C3, C4, THYGLOB AB, CARDIO GMA, CCP, B2 GLYPROT, CHROMATIN #### [facility] , Thyroid Stimulating Hormoneo n 01-17-2025 TSH Qn 0.04 m[IU]/L Low 0.45-5.33 [facility] Comment on above: Result Comment: PERF ORMED BY: [address] [place] [address] PATHOLOGIST [place] RHONDA BAUER M.D. Performed By: #### C H50, TPO, RA, DARIEL, C3, C4, THYGLOB AB, CARDIO GMA, CCP, B2 GLYPROT, CHROMATIN #### [facility] , Thyrotropin [Units/volume] i n Serum or PlasmaOrdered By: Boo Godoy on 01-17-2025 TSH Qn Thyrotropin [Units/v olume] in Serum or Plasma Low 0.45-5.33 [facility] Thyroxine (T4) free [Mass/vo lume] in Serum or PlasmaOrdered By: Boo Godoy on 01-17-2025 Free T4 [Mass/Vol] Thyroxine (T4) free [Mass/volume] in Serum or Plasma High 0.61-1.12 [facility] Urea nitrogen [Mass/volume] in Serum or PlasmaOrdered By: Boo Godoy on 01-17-2025 Urea nitrogen [Mass/Vol] Urea nitrogen [Mass/volume] in Serum or Plasma 7-25 [facility] Urobilinogen Test strip (U) [Mass/Vol]Ordered By: Boo Godoy on 01-17-2025 Urobilinogen (U) [Mass/Vol] Urobilinogen [Mass/volume] in Urine by Test strip Normal [facility] WBC Auto (Bld) [#/Vol]Ordere d By: Boo Godoy on 01-17-2025 WBC (Bld) [#/Vol] Leukocytes [#/volume ] in Blood by Automated count 3.8-11.6 [facility] aPTT in Platelet poor plasma by Coagulation assayOrdered By: Boo Godoy on 01-17-2025 aPTT Coag (PPP) [Time] Activated partial thromboplastin time (aPTT) in platelet poor plasma by coagulation a 25.1-36.5 [facility] Comment on above: A hematocrit value g reater than 55% may lead to inaccurate results in coagulation testing. Patients having hematocrit values >55% require a special collection tube for coagulation studies. Please contact the laboratory at [phone] for redraw instructions. pH Test strip (U)Ordered By: Boo Godoy on 01-17-2025 pH (U) pH of Urine by Test strip 5.0-9.0 [facility] US PELVIC COMPLETE W/ TVon 0 12-21-2024 [...] II, MD, PHD at 22-Dec-2024 10:37:30 AM [facility] Normal Not Available Comment on above: Order Comment: US PE LVIS-TRANSVAG IF INDICATED No LMP recorded. Patient is postmenopausal. IA Myocardial Spect Rest/Str ess 1 Dayon 12-19-2024 IA Myocardial Spect Rest/Stress 1 Day Exam Date/Time: 12/19/2024 10:40 EST Reason for Exam: R07.9;Chest pain Report [address] [address] Nuclear Stress Report Name: CHLOE AGARWAL Study Date: 12/19/2024 08:10 AM Patient Location: [facility] Ambulatory(s) [facility] : 1955 (M/d/yyyy) Gender: Female Age: 69 yrs Ethnicity: [facility] Reason For Study: R07.9;Chest pain Ordering Physician: Lokesh Mcqueen Referring Physician: Lokesh Mcqueen Protocol 20409 Pharmacologic Lexiscan stress with Isotope. Study Protocol: [...] MD Transcribed by: GARY Technologist: MATTY Vasquez [facility] MM TOMOSYNTHESIS SCREENING B Ion 12-14-2024 [place] [address] Mammography Report Signed Patient: CHLOE AGARWAL MR#: [id number] : 1955 Acct:[id number] Age/Sex: 69 / F ADM Date: 12/14/24 Loc: MAMMO Attending Dr: Antionette Yang Ordering Physician: Antionette Yang Results: Date of Service: 12/14/24 Follow Up: Procedure(s): MM tomosynthesis screening BI Accession Number(s): [id number] cc: Antionette Yang; Vick Mcghee M.D. Patient Name: CHLOE AGARWAL MR#: [id number] : 1955 Exam Date: 12/14/2024 Ordering Doctor: [...] Treatments None Family Cancers None LOCATION: [facility] BREAST COMPOSITION: There are scattered areas of [...] Signed By: 12/14/24 1148 DD/ 1147 TD/TT: Behavioral Health Care Manager: [facility] Radiology, Radiologi MD kimberly - 12/14/2024 [place] [address] Mammography Report Signed Patient: CHLOE AGARWAL MR#: [id number] : 1955 Acct:[id number] Age/Sex: 69 / F ADM Date: 12/14/24 Loc: MAMMO Attending Dr: Antionette Yang Ordering Physician: Antionette Yang Results: Date of Service: 12/14/24 Follow Up: Procedure(s): MM tomosynthesis screening BI Accession Number(s): [id number] cc: Antionette Yang; Vick Mcghee M.D. Patient Name: CHLOE AGARWAL MR#: [id number] : 1955 Exam Date: 12/14/2024 Ordering Doctor: [...] Treatments None Family Cancers None LOCATION: [facility] BREAST COMPOSITION: There are scattered areas of [...] Signed By: 12/14/24 1148 DD/ 1147 TD/TT: Behavioral Health Care Manager: [facility] Radiology Study observation (narrative) [facility] MM TOMOSYNTHESIS SCREENING B IOrdered By: Radiologist Radiology on 12-14-2024 [facility] Work Phone: IGP,APTIMA HPV,AGE GDLNon AGE GDLN [...] High,A-Abnormal,AA-Critical Abnormal Performed at: 01 =G [facility] [place] [address] [facility] [place] [address] Adelina Nunez MD, PAP IG (IMAGE GUIDED) Note . [facility] Comment on above: TESTS RESULT FLAG UN ITS REF RANGE LAB DIAGNOSIS: 02 NEGATIVE FOR INTRAEPITHELIAL LESION OR MALIGNANCY. CELLULAR CHANGES ASSOCIATED WITH ATROPHY ARE PRESENT. Specimen adequacy: 02 Satisfactory for evaluation. Endocervical component may not be distinguished in cases of atrophy. Performed by: Monique Neely, Garbage Truck Driver (ASCP) . 02 Note: Note 03 The [...] High,A-Abnormal,AA-Critical Abnormal Performed at: 02 [place] [facility] [address] [place] [address] Shakila Ivey PhD, 03 WB [facility] [address] [address] Adelina Nunez MD, Performed at: =G - [facility] [address] [id number] Black Top Raker: Adelina Nunez MD, Phone: [phone] Performed at: [place] - [facility] [place] [address] [facility], [place] [id number] Black Top Raker: Shakila Ivey PhD, Phone: [phone] BRUSH-SPATULA CERVIX ENDOCERVIX [facility] ED Note-Physicianon 11-17-19 ED Note-Physician ED Note-Physician Basic Information Opened in error Assessment/Plan Normal [facility] Comment on above: Result Comment: Elec tronically Signed By: Qian Jimenes, Darshan H\.br\Date and Time Signed: 11/15/24 15:23 EST BMPon 11-16-2024 Anion gap [Moles/Vol] 10 mmol/L Normal 6-16 [facility] Comment on above: Performed By: #### 2 [id number] #### [facility] [address] [place] [address] Calcium [Mass/Vol] 9.2 mg/dL Normal 8.9-11.1 [facility] Comment on above: Performed By: #### 2 [id number] #### [facility] [address] [place] [address] Chloride [Moles/Vol] 107 mmol/L Normal 101-111 [facility] Comment on above: Performed By: #### 2 [id number] #### [facility] [address] [place] [address] CO2 [Moles/Vol] 26 mmol/L Normal 21-31 [facility] Comment on above: Performed By: #### 2 [id number] #### [facility] [address] [place] [address] Creatinine [Mass/Vol] 0.7 mg/dL Normal 0.5-1.3 [facility] Comment on above: Performed By: #### 2 [id number] #### [facility] [address] [place] [address] Glucose [Mass/Vol] 105 mg/dL Normal 55-199 [facility] Comment on above: Performed By: #### 2 512655 #### [facility] [address] [place] [address] Potassium [Moles/Vol] 4.0 mmol/L Normal 3.5-5.3 [facility] Comment on above: Performed By: #### 2 919109 #### [facility] [address] [place] [address] Sodium [Moles/Vol] 139 mmol/L Normal 135-145 [facility] Comment on above: Performed By: #### 2 072951 #### [facility] [address] [place] [address] Urea nitrogen [Mass/Vol] 23 mg/dL High 5-21 [facility] Comment on above: Performed By: #### 2 [id number] #### [facility] [address] [place] [address] Urea nitrogen/Creatinine [Mass ratio] 33 No Units High 10-20 [facility] Comment on above: Performed By: #### 2 158406 #### [facility] [address] [place] [address] CBC w/ Auto Diffon 5 Basophils/100 WBC (Bld) 0.8 % Normal 0.0-2.0 [facility] Comment on above: Performed By: #### 2 [id number] #### [facility] [address] [place] [address] Basophils/Leukocytes Auto (Bld) [Pure # fraction] 0.1 E9/L Normal 0.0-0.2 [facility] Comment on above: Performed By: #### 2 787324 #### [facility] [address] [place] [address] Eosinophils (Bld) [#/Vol] 0.1 E9/L Normal 0.0-0.5 [facility] Comment on above: Performed By: #### 2 155167 #### [facility] [address] [place] [address] Eosinophils/100 WBC (Bld) 1.5 % Normal 0.0-8.0 [facility] Comment on above: Performed By: #### 2 487497 #### [facility] [address] [place] [address] Erythrocyte distribution width (RBC) [Ratio] 12.7 % Normal 10.9-14.2 [facility] Comment on above: Performed By: #### 2 814177 #### [facility] [address] [place] [address] Hematocrit (Bld) [Volume fraction] 36.3 % Normal 34.0-46.0 [facility] Comment on above: Performed By: #### 2 075684 #### [facility] [address] [place] [address] Hemoglobin (Bld) [Mass/Vol] 12.4 g/dL Normal 12.0-16.0 [facility] Comment on above: Performed By: #### 2 232709 #### [facility] [address] [place] [address] Lymphocytes (Bld) [#/Vol] 0.9 E9/L Low 1.0-4.0 [facility] Comment on above: Performed By: #### 2 089660 #### [facility] [address] [place] [address] Lymphocytes/100 WBC (Bld) 12.6 % Low 14.0-50.0 [facility] Comment on above: Performed By: #### 2 810457 #### [facility] [address] [place] [address] MCH (RBC) [Entitic mass] 31.5 pg Normal 27.0-34.0 [facility] Comment on above: Performed By: #### 2 106631 #### [facility] [address] [place] [address] MCHC (RBC) [Mass/Vol] 34.1 g/dL Normal 31.4-36.0 [facility] Comment on above: Performed By: #### 2 346407 #### [facility] [address] [place] [address] MCV (RBC) [Entitic vol] 92.4 fL Normal 80.0-100.0 [facility] Comment on above: Performed By: #### 2 653186 #### [facility] [address] [place] [address] Monocytes (Bld) [#/Vol] 0.7 E9/L Normal 0.2-1.0 [facility] Comment on above: Performed By: #### 2 531653 #### [facility] [address] [place] [address] Neutrophils (Bld) [#/Vol] 5.7 E9/L Normal 2.0-7.5 [facility] Comment on above: Performed By: #### 2 358717 #### [facility] [address] [place] [address] Neutrophils/100 WBC (Bld) 76.3 % High 36.0-75.0 [facility] Comment on above: Performed By: #### 2 087904 #### [facility] [address] [place] [address] Platelet mean volume (Bld) [Entitic vol] 8.2 fL Normal 6.4-10.8 [facility] Comment on above: Performed By: #### 2 029861 #### [facility] [address] [place] [address] Platelets (Bld) [#/Vol] 229.0 E9/L Normal 150.0-500. 0 [facility] Comment on above: Performed By: #### 2 050250 #### [facility] [address] [place] [address] RBC (Bld) [#/Vol] 3.9 E12/L Low 4.3-5.9 [facility] Comment on above: Performed By: #### 2 762739 #### [facility] [address] [place] [address] WBC corrected for nucl RBC Auto (Bld) [#/Vol] 7.4 E9/L Normal 4.0-11.0 [facility] Comment on above: Performed By: #### 2 129294 #### [facility] [address] [place] [address] Discharge Note-Nursingon Discharge Note-Nursing Discharge Note-Nursing CHLOE AGARWAL :1955 Visit Date:11/15/2024 Inpatient Discharge Instructions Your Care Team Admitting Physician - Aileen RENEE MD Consulting Physician - [facility] Cardio, XXXX Bryant CANTRELL, Baldomero Reason for Your Visit chest pain Your Diagnosis Chest pain Non-cardiac chest pain HTN (hypertension) Chronic GERD Chest pain Tests Performed Echo Transthoracic Complete XR Chest Single View This Is Your Medications List [facility] Prescription (Adult Blood Pressure Monitor with Large [...] Tablets By Mouth Every day Pickup at [facility] 11/17 @ 9 am Unchanged clonidine [...] GERD 11/16 @ 9 pm Pharmacy Information [facility]: [address] [place], [place] [phone] Test Results CBC BMP WBC: 7.4 E9/L [...] An injur (more content not included)... Normal [facility] Interdisciplinary Note - Mario e Manageron 11-16-2024 Interdisciplinary Note - Die Baker Interdisciplinary Note - Die Baker CRM to room 315 Patient is awake, alert and oriented. Patient is from home with her Spouse. He is her ride at [place]. Patient verified PCP, DME and insurance. Patient [...] DC if cardiac work up negative Normal [facility] Comment on above: Result Comment: Elec tronically Signed By: Leonila Vasquez\.br\Date and Time Signed: 11/16/24 11:14 EST eGFRon 11-16-2024 eGFR 95 mL/min/1.73 m2 Normal >=59 [facility] Comment on above: Performed By: #### 1 [id number] #### [facility] [address] [place] [address] BMPon 11-15-2024 Anion gap [Moles/Vol] 12 mmol/L Normal 6-16 [facility] Comment on above: Performed By: #### 2 726582 #### [facility] [address] [place] [address] Calcium [Mass/Vol] 9.4 mg/dL Normal 8.9-11.1 [facility] Comment on above: Performed By: #### 2 139362 #### [facility] [address] [place] [address] Chloride [Moles/Vol] 105 mmol/L Normal 101-111 [facility] Comment on above: Performed By: #### 2 155655 #### [facility] [address] [place] [address] CO2 [Moles/Vol] 26 mmol/L Normal 21-31 [facility] Comment on above: Performed By: #### 2 288525 #### [facility] [address] [place] [address] Creatinine [Mass/Vol] 1.0 mg/dL Normal 0.5-1.3 [facility] Comment on above: Performed By: #### 2 960300 #### [facility] [address] [place] [address] Glucose [Mass/Vol] 101 mg/dL Normal 55-199 [facility] Comment on above: Performed By: #### 2 363823 #### [facility] [address] [place] [address] Potassium [Moles/Vol] 3.7 mmol/L Normal 3.5-5.3 [facility] Comment on above: Performed By: #### 2 514641 #### [facility] [address] [place] [address] Sodium [Moles/Vol] 139 mmol/L Normal 135-145 [facility] Comment on above: Performed By: #### 2 837220 #### [facility] [address] [place] [address] Urea nitrogen [Mass/Vol] 27 mg/dL High 5-21 [facility] Comment on above: Performed By: #### 2 297918 #### [facility] [address] [place] [address] Urea nitrogen/Creatinine [Mass ratio] 27 No Units High 10-20 [facility] Comment on above: Performed By: #### 2 026579 #### [facility] [address] [place] [address] CBC w/ Auto Diffon 5 Basophils/100 WBC (Bld) 0.9 % Normal 0.0-2.0 [facility] Comment on above: Performed By: #### 2 952614 #### [facility] [address] [place] [address] Basophils/Leukocytes Auto (Bld) [Pure # fraction] 0.1 E9/L Normal 0.0-0.2 [facility] Comment on above: Performed By: #### 2 427392 #### [facility] [address] [place] [address] Eosinophils (Bld) [#/Vol] 0.1 E9/L Normal 0.0-0.5 [facility] Comment on above: Performed By: #### 2 431880 #### [facility] [address] [place] [address] Eosinophils/100 WBC (Bld) 1.2 % Normal 0.0-8.0 [facility] Comment on above: Performed By: #### 2 579062 #### [facility] [address] [place] [address] Erythrocyte distribution width (RBC) [Ratio] 12.5 % Normal 10.9-14.2 [facility] Comment on above: Performed By: #### 2 714010 #### [facility] [address] [place] [address] Hematocrit (Bld) [Volume fraction] 38.3 % Normal 34.0-46.0 [facility] Comment on above: Performed By: #### 2 756412 #### [facility] [address] [place] [address] Hemoglobin (Bld) [Mass/Vol] 13.2 g/dL Normal 12.0-16.0 [facility] Comment on above: Performed By: #### 2 101892 #### [facility] [address] [place] [address] Lymphocytes (Bld) [#/Vol] 1.3 E9/L Normal 1.0-4.0 [facility] Comment on above: Performed By: #### 2 509644 #### [facility] [address] [place] [address] Lymphocytes/100 WBC (Bld) 14.1 % Normal 14.0-50.0 [facility] Comment on above: Performed By: #### 2 018089 #### [facility] [address] [place] [address] MCH (RBC) [Entitic mass] 31.3 pg Normal 27.0-34.0 [facility] Comment on above: Performed By: #### 2 168998 #### [facility] [address] [place] [address] MCHC (RBC) [Mass/Vol] 34.3 g/dL Normal 31.4-36.0 [facility] Comment on above: Performed By: #### 2 289082 #### [facility] [address] [place] [address] MCV (RBC) [Entitic vol] 91.1 fL Normal 80.0-100.0 [facility] Comment on above: Performed By: #### 2 592832 #### [facility] [address] [place] [address] Monocytes (Bld) [#/Vol] 0.7 E9/L Normal 0.2-1.0 [facility] Comment on above: Performed By: #### 2 053078 #### [facility] [address] [place] [address] Neutrophils (Bld) [#/Vol] 6.8 E9/L Normal 2.0-7.5 [facility] Comment on above: Performed By: #### 2 189582 #### [facility] [address] [place] [address] Neutrophils/100 WBC (Bld) 75.8 % High 36.0-75.0 [facility] Comment on above: Performed By: #### 2 570950 #### [facility] [address] [place] [address] Platelet 259.0 E9/L Normal 150.0-500. 0 [facility] Comment on above: Performed By: #### 2 126491 #### [facility] [address] [place] [address] Platelet mean volume (Bld) [Entitic vol] 7.6 fL Normal 6.4-10.8 [facility] Comment on above: Performed By: #### 2 068384 #### [facility] [address] [place] [address] RBC (Bld) [#/Vol] 4.2 E12/L Low 4.3-5.9 [facility] Comment on above: Performed By: #### 2 412851 #### [facility] [address] [place] [address] WBC corrected for nucl RBC Auto (Bld) [#/Vol] 9.0 E9/L Normal 4.0-11.0 [facility] Comment on above: Performed By: #### 2 428991 #### [facility] [address] [place] [address] D-Dimeron 11-15-2024 Fibrin D-dimer FEU (PPP) [Mass/Vol] 393 [id number] Normal 215-500 [facility] Comment on above: Result Comment: This [...] infections Liver cirrhosis Performed By: #### 2 705259 #### [facility] [address] [place] [address] ED Clinical Summaryon 2024 ED Clinical Summary ED Clinical Summary [address] [address] ED Clinical Summary Person Information Name: CHLOE AGARWAL [place] Age: 69 Years : 1955 Sex: Female Language: S[place] PCP: Vick Mcghee MD Marital Status: Visit Id: Visit Reason: Chest pain; CHEST PAIN, UPPER ABD PAIN Speciality: Acuity: 2 Enc Type: Observation Med Service: Medical Arrival: 11/15/2024 13:13:47 Discharge: LOS: 000 03:45 Checkin: 11/15/2024 13:13:47 Checkout: 11/15/2024 16:58:54 Dispo Type: Admitted as IP to this [facility] EVENTS: Event Name Event Status [...] Request 11/15/2024 16:55:38 ADDRESS: [place] [id number] [facility] DOC NOTES: MEDICAL INFORMATION: Prescriptions Given: Medications [...] chest pain; 3:HTN (hypertension); 4:Chronic GERD Normal [facility] ED Note-Physicianon 11-15-19 25 ED Note-Physician [...] and Complexity of Problems Differential Diagnosis: [] [facility] Data External documents reviewed: [] My [...] 81 mg (more content not included)... Normal [facility] Comment on above: Result Comment: Elec tronically Signed By: Darshan Laughlin M.D.\.br\Date and Time Signed: 11/15/24 17:14 EST ED Note-Physician ED Note-Physician Basic Information Opened in error Assessment/Plan Normal [facility] Comment on above: Result Comment: Elec tronically Signed By: Darshan Laughlin M.D.\.br\Date and Time Signed: 11/15/24 15:23 EST ED Patient Education Noteon 11-15-2024 ED Patient Education Note ED Patient Education Note Normal [facility] ED Patient Summaryon 025 ED Patient Summary ED Patient Summary [place] [id number] Patient Discharge Instructions Person Information Name: ANYCHLOE Arlen Age: 69 Years Arrival Date: 11/15/2024 13:13:47 Discharge Diagnosis: 1:Chest pain; 2:Non-cardiac chest pain; 3:HTN (hypertension); 4:Chronic GERD Primary Care Physician: Vick Mcghee MD Provider Information Primary Provider: Darshan Laughlin M.D. Advanced Loss Prevention Investigator:None The exam and treatment you received in the Emergency Department were for an urgent problem and are not intended as complete care. It is important that you follow up with a doctor, nurse practitioner, or physician???s internal medicine physician assistant for ongoing care. If your symptoms [...] opioids can be used to help relieve utbcfigx-sp-qekhak pain and are often prescribed following a [...] be struggling with addiction, tell your health day care teacher and ask for guidance or call [facility]???S National Helpline at 3-566-903-QSQE. e Source: [place] Department (more content not included)... Normal [facility] Lipase Levelon 11-15-2024 Lipase [Catalytic activity/Vol] 43 U/L Normal 13-58 [facility] Comment on above: Performed By: #### 2 [id number] #### [facility] Laboratory [address] [place] [address] Magnesiumon 11-15-2024 Magnesium [Mass/Vol] 2.0 mg/dL Normal 1.3-2.4 [facility] Comment on above: Performed By: #### 2 [id number] #### [facility] Laboratory [address] [place] [address] PT & PTTon 11-15-2024 aPTT Coag (PPP) [Time] 30.1 second(s) Normal 25.1-36.5 [facility] Comment on above: Result Comment: Para [...] the same coagulation reagent and instrumentation as [facility]. Currently there are no coagulation studies available worldwide for children to 14 days, and no normal ranges. Heparin therapeutic range (represented by Anti-Factor Xa activity of 0.2 - 0.4 U/mL) corresponds to PTT of 56.6 - 109.0 sec. Performed By: #### 1 [id number] #### [facility] Laboratory [address] [place] [address] INR Coag (PPP) [Relative time] 0.98 {INR} Invalid Interpretation Code [facility] Comment on above: Result Comment: INR results are specifically intended to assess patients stabilized on long-term Anticoagulation therapy suggested INR???s ???Less Intensive Anticoagulation??? 2.0 ??? 3.0 Conventional Range 3.0 ??? 4.5 Performed By: #### 1 [id number] #### [facility] Laboratory [address] [place] [address] PT Coag (PPP) [Time] 11.0 second(s) Normal 9.4-12.5 [facility] Comment on above: Result Comment: 15 [...] the same coagulation reagent and instrumentation as [facility]. Currently there are no coagulation studies available worldwide for children to 14 days, and no normal ranges. Performed By: #### 1 [id number] #### [facility] [address] [place] [address] Troponin 0 Hr.on 11-15-2024 Troponin HS 4.50 pg/mL Low 10.10-27.1 0 [facility] Comment on above: Result Comment: The 95% CI (Confidence Interval) PPV (Positive Predictive Value) for myocardial infarction in females is 38 pg/mL, in males 51 pg/mL. The results should be used in conjunction with clinical conditions of myocardial infarction. (Access High Sensitivity Troponin I Instructions For Use, [employer], May 2018) Performed By: #### 1 [id number] #### [facility] Laboratory [address] [place] [address] Troponin 1 Hr.on 11-15-2024 Troponin HS 4.80 pg/mL Low 10.10-27.1 0 [facility] Comment on above: Order Comment: 1441 Result Comment: The 95% CI (Confidence Interval) PPV (Positive Predictive Value) for myocardial infarction in females is 38 pg/mL, in males 51 pg/mL. The results should be used in conjunction with clinical conditions of myocardial infarction. (Access High Sensitivity Troponin I Instructions For Use, [employer], May 2018) Performed By: #### 1 [id number] #### [facility] Laboratory [address] [place] [address] Troponin 3 Hr.on 11-15-2024 Troponin HS 5.20 pg/mL Low 10.10-27.1 0 [facility] Comment on above: Result Comment: The 95% CI (Confidence Interval) PPV (Positive Predictive Value) for myocardial infarction in females is 38 pg/mL, in males 51 pg/mL. The results should be used in conjunction with clinical conditions of myocardial infarction. (Access High Sensitivity Troponin I Instructions For Use, [employer], May 2018) Performed By: #### 1 [id number] #### [facility] [address] [place] [address] Troponin 6 Hr.on 11-15-2024 Troponin HS 6.30 pg/mL Low 10.10-27.1 0 [facility] Comment on above: Result Comment: The 95% CI (Confidence Interval) PPV (Positive Predictive Value) for myocardial infarction in females is 38 pg/mL, in males 51 pg/mL. The results should be used in conjunction with clinical conditions of myocardial infarction. (Access High Sensitivity Troponin I Instructions For Use, [employer] [place], May 2018) Performed By: #### 1 [id number] #### [facility] [address] [place] [address] XR Chest Single Viewon 11-15 XR Chest [...] MD Transcribed by: SCOTTY Technologist: Christina LORD [facility] eGFRon 11-15-2024 eGFR 62 mL/min/1.73 m2 Normal >=59 [facility] Comment on above: Performed By: #### 1 [id number] #### [facility] Laboratory [address] [place] [address] Heart and Vascular Office/Cl inic Noteon 10-05-2024 [...] Daily, # 30 tab(s), Refills(s) 2, Pharmacy: [facility], 152, cm, 10/05/24 11:36:00 EST, Height/Length Dosing, 75.8, kg, 10/05/24 11:40:00 EST, Weight Dosing Follow-up with me in 3 months or sooner if needed Portions of this record may have been created with voice recognition artificial intelligence software, specifically [employer] and or [employer] Substitutions may have occurred due to the [...] drainage Procedure (more content not included)... Normal [facility] Comment on above: Result Comment: Elec tronically Signed By: Lokesh Mcqueen PA-C\.elmo\Date and Time Signed: 10/05/24 13:02 EST [place] 09-02-2024 L -------- -------- Specimen: [id number] Received: 09/05/24 Status: PANFILOCharity Bowen Num: [id number] Spec Type: Cytology Subm Dr: Ryan Vazquez MD Tissues: A FNA SLIDES NOPATH (RT THYROID) Procedures: Cyto Int and Re, PAPSTN/5 -------- Age/ Patient Sex Location Account Attending Physician -------- Chloe Agarwal 68/F [facility] [id number] NON STAFF -------- SPEC NUM: [id number] RECD: 09/05/24 STATUS: VIRGILIO BOWEN NUM: [id number] MADHAV: 09/02/24- BEE DR: Ryan Vazquez MD ENTERED: 09/05/24 [facility] DR: Heavenly Thao SPEC TYPE: Cytology DEPT: [facility] ENTERED BY: [id number] RECV BY: [id number] ORDERED: Cyto Int and Re, PAPSTN/5 ORDERED: Cyto Int and Re, PAPSTN/5 Pathological Diagnosis Nodule, right thyroid, fine needle aspiration:? Unsatisfactory for evaluation. Too few epithelial cells. [place]?Category?I Clinical Information US guided FNA Gross Description Received fixed in Cytolyt is 30 ml very pale pink clear fixed fluid for cytology said to have been obtained as Right thyroid nodule mid. ThinPrep preparations are prepared for microscopic examination. Also received are 4 spray fixed smeared slides and a Veracyte vial stored at -20 for microscopic examination. (LA/il) CPT Codes 35707 -------- -------- Specimen: [id number] Received: 09/05/24 Status: VIRGILIO Bowen Num: [id number] Spec Type: Cytology Subm Dr: Ryan Vazquez MD Tissues: A FNA SLIDES NOPATH (RT THYROID) Procedures: Cyto Int and Re, PAPSTN/5 -------- Patient: Chloe Agarwal [id number] (Continued) -------- Signed (signature on file) Rhonda Bauer MD 09/06/24 1815 Normal [facility] CT Spine Lumbar w/ Contrasto [...] Contrast amount in ml's: 0 Normal [facility] Main OR PACU II Recordon Main OR PACU II Record Main OR PACU II Record PACU Phase II Document Type FT Summary Primary Physician: WALE XXXX Finalized Date/Time: 08/19/24 14:04:04 Pt. Name: CHLOE AGARWAL/Sex: 1955 Female Med Rec #: [id number] Physician: SAM [employer] #: [id number] Pt. Type: O Room/Bed: / Admit/Disch: 08/19/24 [...] By: Monika Sales RN 08/19/24 14:04 Normal [facility] Main OR Preoperative Recordo n 08-19-2024 Main OR Preoperative Record Main OR Preoperative Record Holding Area Document Type FT Summary Primary Physician: NONE, XXXX Finalized Date/Time: 08/19/24 08:06:37 Pt. Name: CHLOE AGARWAL/Sex: 1955 Female Med Rec #: [id number] Physician: SAM [employer] #: [id number] Pt. Type: O Room/Bed: / Admit/Disch: 08/19/24 [...] 08:06 Monika Sales RN 08/19/24 08:06 Normal [facility] XR Myelography Lumbosacralon 08-19-2024 XR Myelography [...] mGy = 43.30 DAP = 869.87 Normal [facility] Heart and Vascular Office/Cl inic Noteon [...] with voice recognition artificial intelligence software, specifically [employer], [employer] and or [employer] Substitutions may have occurred due to the inherent limitations of voice recognition and artificial intelligence software. ATTESTATION: Documentation services were performed after patient or guardian consented to allow bookletmobile to record this visit. ASHLEIGH grievance and appeals specialist and provider reviewed before signing. ASHLEIGH: Malinda Sands Follow-up No qualifying data available Problem List/Past Medical History Ongoing BMI 34.0-34.9,adult Chest pain due to GERD Chronic GERD Duodenogastric bile reflux Dysphagia Epigastric pain Gastritis H/O: osteoarthritis Hiatal hernia with gastroesophag (more content not included)... Normal [facility] Comment on above: Result Comment: Elec tronically Signed By: Vincent CANTRELL, Willie Tovar\.br\Date and Time Signed: 07/16/24 07:52 EDT\.br\Electronically Co-Signed By: Nanette Rodrigues\.br\Date and Time Co-Signed: 07/13/24 17:16 EDT XR Spine Lumbar [facility] 07-11-2024 XR Spine Lumbar Complete Including [...] na DAP = na Normal [facility] C Urineon 05-10-2024 Bacteria identified Cx [...] Locations R1: This test was performed at: [facility], [address] [place] [address], [facility]- , , [facility] Comment on above: Performed By: #### 2 [id number] #### [facility] Laboratory [address] [place] [address] BB Draw & Holdon 05-08-2024 BB D&H Sample drawn for Blood Ba Normal [facility] Comment on above: Performed By: #### 1 [id number] #### [facility] Laboratory [address] [place] [address] CBC w/ Auto Diffon 4 Basophils/100 WBC (Bld) 1.1 % Normal 0.0-2.0 [facility] Comment on above: Performed By: #### 2 [id number] #### [facility] Laboratory [address] [place] [address] Basophils/Leukocytes Auto (Bld) [Pure # fraction] 0.1 E9/L Normal 0.0-0.2 [facility] Comment on above: Performed By: #### 2 [id number] #### [facility] Laboratory [address] [place] [address] Eosinophils (Bld) [#/Vol] 0.1 E9/L Normal 0.0-0.5 [facility] Comment on above: Performed By: #### 2 [id number] #### [facility] Laboratory [address] [place] [address] Eosinophils/100 WBC (Bld) 1.6 % Normal 0.0-8.0 [facility] Comment on above: Performed By: #### 2 [id number] #### [facility] Laboratory [address] [place] [address] Erythrocyte distribution width (RBC) [Ratio] 14.1 % Normal 10.9-14.2 [facility] Comment on above: Performed By: #### 2 [id number] #### [facility] Laboratory [address] [place] [address] Hematocrit (Bld) [Volume fraction] 38.2 % Normal 34.0-46.0 [facility] Comment on above: Performed By: #### 2 [id number] #### [facility] Laboratory [address] [place] [address] Hemoglobin (Bld) [Mass/Vol] 13.9 g/dL Normal 12.0-16.0 [facility] Comment on above: Performed By: #### 2 [id number] #### [facility] Laboratory [address] [place] [address] Lymphocytes (Bld) [#/Vol] 2.3 E9/L Normal 1.0-4.0 [facility] Comment on above: Performed By: #### 2 [id number] #### [facility] [address] [place] [address] Lymphocytes/100 WBC (Bld) 26.4 % Normal 14.0-50.0 [facility] Comment on above: Performed By: #### 2 [id number] #### [facility] [address] [place] [address] MCH (RBC) [Entitic mass] 32.6 pg Normal 27.0-34.0 [facility] Comment on above: Performed By: #### 2 [id number] #### [facility] Laboratory [address] [place] [address] MCHC (RBC) [Mass/Vol] 36.3 g/dL High 31.4-36.0 [facility] Comment on above: Performed By: #### 2 [id number] #### [facility] Laboratory [address] [place] [address] MCV (RBC) [Entitic vol] 89.9 fL Normal 80.0-100.0 [facility] Comment on above: Performed By: #### 2 [id number] #### [facility] Laboratory [address] [place] [address] Monocytes (Bld) [#/Vol] 0.8 E9/L Normal 0.2-1.0 [facility] Comment on above: Performed By: #### 2 [id number] #### [facility] Laboratory [address] [place] [address] Neutrophils (Bld) [#/Vol] 5.3 E9/L Normal 2.0-7.5 [facility] Comment on above: Performed By: #### 2 [id number] #### [facility] Laboratory [address] [place] [address] Neutrophils/100 WBC (Bld) 61.6 % Normal 36.0-75.0 [facility] Comment on above: Performed By: #### 2 [id number] #### [facility] [address] [place] [address] Platelet 299.0 E9/L Normal 150.0-500. 0 [facility] Comment on above: Performed By: #### 2 [id number] #### [facility] [address] [place] [address] Platelet mean volume (Bld) [Entitic vol] 8.0 fL Normal 6.4-10.8 [facility] Comment on above: Performed By: #### 2 [id number] #### [facility] [address] [place] [address] RBC (Bld) [#/Vol] 4.3 E12/L Normal 4.3-5.9 [facility] Comment on above: Performed By: #### 2 [id number] #### [facility] [address] [place] [address] WBC corrected for nucl RBC Auto (Bld) [#/Vol] 8.6 E9/L Normal 4.0-11.0 [facility] Comment on above: Performed By: #### 2 [id number] #### [facility] Laboratory [address] [place] [address] CHEMISTRYOrdered By: SYSTEM SYSTEM on 05-08-2024 Albumin [...] Sensitivity Troponin I Instructions For Use, Dem[employer] [place], May 2018) Urea nitrogen [Mass/Vol] 22 mg/dL High 5 - 21 mg/dL Remisol Chem Urea nitrogen/Creatinine [Mass ratio] 28 mg/mg High 10 - 20 Remisol Chem CHEMISTRYOrdered By: Lab ROP User on 05-08-2024 Glucose [Mass/Vol] 111 mg/dL High 55 - 99 mg/dL [facility] POC Subsection Comment on above: Result Comment: Ovidio medrano RN/ POC Device SN [id number] Invalid Interpretation Code [facility] POC Subsection POC User ID [id number] 1 Invalid Interpretation Code [facility] POC Subsection POC Username CLAUS FRAZIER Invalid Interpretation Code [facility] POC Subsection CMPon 05-08-2024 Albumin [Mass/Vol] 4.4 g/dL Normal 3.3-5.0 [facility] Comment on above: Performed By: #### 2 [id number] #### [facility] Laboratory [address] [place] [address] Albumin/Globulin (S) [Mass conc ratio] 1.5 Normal 1.1-2.2 [facility] Comment on above: Performed By: #### 2 [id number] #### [facility] [address] [place] [address] ALP [Catalytic activity/Vol] 59 Int._Unit/L Normal 21-98 [facility] Comment on above: Performed By: #### 2 [id number] #### [facility] [address] [place] [address] ALT No additional P-5'-P [Catalytic activity/Vol] 18 Int._Unit/L Normal 6-46 [facility] Comment on above: Performed By: #### 2 [id number] #### [facility] [address] [place] [address] Anion gap [Moles/Vol] 14 mmol/L Normal 6-16 [facility] Comment on above: Performed By: #### 2 [id number] #### [facility] [address] [place] [address] AST [Catalytic activity/Vol] 18 Int._Unit/L Normal 5-43 [facility] Comment on above: Performed By: #### 2 [id number] #### [facility] [address] [place] [address] Bilirubin [Mass/Vol] 1.1 mg/dL Normal 0.0-1.1 [facility] Comment on above: Performed By: #### 2 [id number] #### [facility] [address] [place] [address] Calcium [Mass/Vol] 9.9 mg/dL Normal 8.9-11.1 [facility] Comment on above: Performed By: #### 2 [id number] #### [facility] [address] [place] [address] Chloride [Moles/Vol] 103 mmol/L Normal 101-111 [facility] Comment on above: Performed By: #### 2 [id number] #### [facility] [address] [place] [address] CO2 [Moles/Vol] 26 mmol/L Normal 21-31 [facility] Comment on above: Performed By: #### 2 [id number] #### [facility] [address] [place] [address] Creatinine [Mass/Vol] 0.8 mg/dL Normal 0.5-1.3 [facility] Comment on above: Performed By: #### 2 [id number] #### [facility] [address] [place] [address] Globulin (S) [Mass/Vol] 2.9 g/dL Normal 1.4-4.0 [facility] Comment on above: Performed By: #### 2 [id number] #### [facility] Laboratory [address] [place] [address] Glucose [Mass/Vol] 112 mg/dL Normal 55-199 [facility] Comment on above: Performed By: #### 2 240695 #### [facility] [address] [place] [address] Potassium [Moles/Vol] 3.7 mmol/L Normal 3.5-5.3 [facility] Comment on above: Performed By: #### 2 [id number] #### [facility] [address] [place] [address] Protein [Mass/Vol] 7.3 g/dL Normal 6.0-7.8 [facility] Comment on above: Performed By: #### 2 [id number] #### [facility] [address] [place] [address] Sodium [Moles/Vol] 139 mmol/L Normal 135-145 [facility] Comment on above: Performed By: #### 2 [id number] #### [facility] [address] [place] [address] Urea nitrogen [Mass/Vol] 22 mg/dL High 5-21 [facility] Comment on above: Performed By: #### 2 [id number] #### [facility] [address] [place] [address] Urea nitrogen/Creatinine [Mass ratio] 28 No Units High 10-20 [facility] Comment on above: Performed By: #### 2 [id number] #### [facility] [address] [place] [address] COAGULATIONOrdered By: Yissel Amos on 05-08-2024 aPTT Coag (PPP) [Time] 30.0 s Normal 25.1 - 36.5 second(s) [facility] Auto Coag Comment on above: Interpretive Data: [...] the same coagulation reagent and instrumentation as [facility]. Currently there are no coagulation studies available worldwide for children to 14 days, and no normal ranges. Heparin therapeutic range (represented by Anti-Factor Xa activity of 0.2 - 0.4 U/mL) corresponds to PTT of 56.6 - 109.0 sec. INR Coag (PPP) [Relative time] 0.97 {INR} Invalid Interpretation Code [facility] Auto Coag Comment on above: Interpretive Data: I NR results are specifically intended to assess patients stabilized on long-term Anticoagulation therapy suggested INR s Less Intensive Anticoagulation 2.0 3.0 Conventional Range 3.0 4.5 PT Coag (PPP) [Time] 10.9 s Normal 9.4 - 1 2.5 second(s) [facility] Auto Coag Comment on above: Interpretive Data: [...] the same coagulation reagent and instrumentation as [facility]. Currently there are no coagulation studies available [...] MD Transcribed by: SCOTTY Technologist: IVY Normal [facility] Capillary Glucose POCon 04-19 Glucose [Mass/Vol] 111 mg/dL High 55-99 [facility] Comment on above: Result Comment: Ovidio medrano RN/ Performed By: #### 2 [id number] #### [facility] Laboratory [address] [place] [address] ED Clinical Summaryon 2023 ED Clinical Summary ED Clinical Summary [address] [address] ED Clinical Summary Person Information Name: CHLOE AGARWAL [place] Age: 68 Years : 1955 Sex: Female Language: S[place] PCP: Vick Mcghee MD Marital Status: Visit [...] 09:45:49 05/08/2024 09:45:49 05/08/2024 09:45:49 ADDRESS: [address] [facility] [id number] PHYS DOC NOTES: MEDICAL INFORMATION: Prescriptions Given: New Medications [facility], [address] [place], [place] [id number], [phone] cephalexin (Keflex 500 mg Cap) 1 Capsules [...] Follow up: With: Address: When: Vick Mcghee [address] [place] [address], [facility] [place] [id number] LiveProfile (1) In 3 days 05/11/2024 Comments: Call the office of your primary care doctor to arrange for follow-up within the above-stated timeframe. Follow-up with your primary care doctor about this ED visit. You should rev (more content not included)... Normal [facility] ED Note-Physicianon 05-08-20 ED Note-Physician ED [...] under a lot of stress as her hqsxau-uk-skr just and she has a to attend [...] malignant neopla (more content not included)... Normal [facility] Comment on above: Result Comment: Elec tronically Signed By: Nelson Solares DO\.br\Date and Time Signed: 05/08/24 11:48 EDT ED Patient Summaryon 024 ED Patient Summary ED Patient Summary [place] [id number] Patient Discharge Instructions Person Information Name: CHLOE AGARWAL Age: 68 Years Arrival Date: 05/08/2024 07:15:15 Discharge Diagnosis: Acute UTI; Vertigo Primary Care Physician: Vick Mcghee MD Provider Information Primary Provider: Nelson Solares DO Advanced Loss Prevention Investigator:None The exam and treatment you received in the Emergency Department were for an urgent problem and are not intended as complete care. It is important that you follow up with a doctor, nurse practitioner, or physician?s internal medicine physician assistant for ongoing care. If your symptoms [...] Follow-up Instructions: With: Address: When: Vick Nathalie [address] [place] [address], [facility] [place] [address] Business (1) In 3 days [...] opioids can be used to help relieve saqrzomd-hi-hcqvmj pain and are often prescribed following a [...] opioids in (more content not included)... Normal [facility] HEMATOLOGYOrdered By: SYSTEM SYSTEM on 05-08-2024 [...] Magnesium [Mass/Vol] 2.2 mg/dL Normal 1.3-2.4 Robbie [facility] Comment on above: Performed By: #### 2 [id number] #### [facility] [address] [place] [address] PT & PTTon 05-08-2024 aPTT Coag (PPP) [Time] 30.0 second(s) Normal 25.1-36.5 [facility] Comment on above: Result Comment: Para [...] the same coagulation reagent and instrumentation as [facility]. Currently there are no coagulation studies available worldwide for children to 14 days, and no normal ranges. Heparin therapeutic range (represented by Anti-Factor Xa activity of 0.2 - 0.4 U/mL) corresponds to PTT of 56.6 - 109.0 sec. Performed By: #### 1 [id number] #### [facility] [address] [place] [address] INR Coag (PPP) [Relative time] 0.97 {INR} Invalid Interpretation Code [facility] Comment on above: Result Comment: INR results are specifically intended to assess patients stabilized on long-term Anticoagulation therapy suggested INR?s ?Less Intensive Anticoagulation? 2.0 ? 3.0 Conventional Range 3.0 ? 4.5 Performed By: #### 1 [id number] #### [facility] [address] [place] [address] PT Coag (PPP) [Time] 10.9 second(s) Normal 9.4-12.5 [facility] Comment on above: Result Comment: 15 [...] the same coagulation reagent and instrumentation as [facility]. Currently there are no coagulation studies available worldwide for children to 14 days, and no normal ranges. Performed By: #### 1 [id number] #### [facility] [address] [place] [address] Troponin 0 Hr.on 05-08-2024 Troponin HS 6.20 pg/mL Low 10.10-27.1 0 [facility] Comment on above: Result Comment: The 95% CI (Confidence Interval) PPV (Positive Predictive Value) for myocardial infarction in females is 38 pg/mL, in males 51 pg/mL. The results should be used in conjunction with clinical conditions of myocardial infarction. (Access High Sensitivity Troponin I Instructions For Use, Demetra Jay, May 2018) Performed By: #### 1 [id number] #### [facility] [address] [place] [address] UA with Cult Rflxon 05-08-20 24 Bacteria Auto Ql (U) Trace Normal Trace Fish [facility] Comment on above: Performed By: #### 4 [id number] #### [facility] [address] [place] [address] Bilirubin Ql (U) Negative Normal Negative [facility] Comment on above: Performed By: #### 4 [id number] #### [facility] [address] [place] [address] Clarity (U) Clear Normal Clear [facility] Comment on above: Performed By: #### 4 [id number] #### [facility] [address] [place] [address] Color (U) Colorless Abnormal Yellow [facility] Comment on above: Result Comment: Micr oscopic readings are only performed on those samples that meet specific criteria set forth by [facility]. Performed By: #### 4 [id number] #### [facility] [address] [place] [address] Epithelial cells.squamous Auto (Urine sed) [#/Area] 0-2 Invalid Interpretation Code [facility] Comment on above: Performed By: #### 4 [id number] #### [facility] [address] [place] [address] Glucose Ql (U) Negative Normal Negative [facility] Comment on above: Performed By: #### 4 [id number] #### [facility] [address] [place] [address] Hemoglobin Auto test strip (U) [Mass/Vol] Negative Normal Negative [facility] Comment on above: Performed By: #### 4 [id number] #### [facility] [address] [place] [address] Ketones Auto test strip Ql (U) Negative Normal Negative [facility] Comment on above: Performed By: #### 4 [id number] #### [facility] [address] [place] [address] Leukocyte esterase Auto test strip Ql (U) 250 Danielle/uL Abnormal Negative [facility] Comment on above: Performed By: #### 4 [id number] #### [facility] [address] [place] [address] Mucus Auto Ql (U) Negative Normal Negative [facility] Comment on above: Performed By: #### 4 [id number] #### [facility] [address] [place] [address] Nitrite Auto test strip Ql (U) Negative Normal Negative [facility] Comment on above: Performed By: #### 4 [id number] #### [facility] [address] [place] [address] pH (U) 7.0 [pH] Invalid Interpretation Code 5.0-9.0 [facility] Comment on above: Performed By: #### 4 [id number] #### [facility] [address] [place] [address] Protein Ql (U) Negative Normal Negative [facility] Comment on above: Performed By: #### 4 [id number] #### [facility] [address] [place] [address] RBC Ql (U) 0-3 Normal 0-3 [facility] Comment on above: Performed By: #### 4 [id number] #### [facility] [address] [place] [address] Specific gravity (U) [Rel density] 1.008 Invalid Interpretation Code 1.005-1.03 0 [facility] Comment on above: Performed By: #### 4 [id number] #### [facility] [address] [place] [address] Urobilinogen (U) [Mass/Vol] Negative Normal Negative [facility] Comment on above: Performed By: #### 4 [id number] #### [facility] [address] [place] [address] WBC Auto (Urine sed) [#/Area] 6-15 Abnormal 0-5 [facility] Comment on above: Performed By: #### 4 [id number] #### [facility] [address] [place] [address] Type of Urine collection method Clean Catch Normal [facility] Comment on above: Performed By: #### 4 [id number] #### [facility] [address] [place] [address] URINALYSISOrdered By: SYSTEM SYSTEM on 05-08-2024 Bacteria Auto Ql (U) Trace /HPF Normal Trace/HPF [facility] UA Auto SS Bilirubin Ql (U) Negative Normal Negativemg /dL [facility] UA Auto SS Clarity (U) Clear (05/08/24 8:05 AM) Normal Clear [facility] UA Auto SS Color (U) Colorless 1 *ABN* (05/08/24 8:05 AM) Invalid Interpretation Code Yellow [facility] UA Auto SS Comment on above: Interpretive Data: M icroscopic readings are only performed on those samples that meet specific criteria set forth by [facility]. Epithelial cells.squamous Auto (Urine sed) [...] HPF [facility] UA Auto SS URINALYSISOrdered By: Nelosn Solares on 05-08-2024 UA Spec Desc Clean [...] mGy = . DAP = . Normal [facility] eGFRon 05-08-2024 eGFR 81 mL/min/1.73 m2 Normal >=59 [facility] Comment on above: Order Comment: Order added by Discern Expert. Performed By: #### 1 [id number] #### [facility] [address] [place] [address] Heart and Vascular Office/Cl inic Noteon 01-17-2024 [...] She had blood work done by her athletic coach at [facility]. Her cholesterol was low. She has been [...] before bed. I will obtain labs from [facility] to make sure she does not have abnormal electrolytes. 3. Sleep apnea. I will check with Dr. Husain regarding CPAP. Follow-up The patient will follow up in 6 months. Portions of this record may have been created with voice recognition artificial intelligence software, specifically [employer] and or [employer] Substitutions may have occurred due to the inherent limitations of voice recognition and artificial intelligence software. ATTESTATION: Documentation services were performed after patient or guardian consented to allow bookletmobile to record this visit. ASHLEIGH grievance and appeals specialist and provider reviewed before signing. ASHLEIGH: Florinda Maguire. Follow-up No qualifying data available Problem List/Past Medical History Ongoing BMI 34.0-34.9,adult Chest pain due to GERD Chronic GERD Duodenogastric bile reflux Dysphagia Epigastric pain Gastritis H/O: osteoarthritis Hiatal hernia with gastroesophageal reflux HTN (hypertension) Osteoporosis Regurgitation of stomach contents Screenin (more content not included)... [facility] Comment on above: Result Comment: Elec tronically Signed By: Vincent CANTRELL, Willie Tovar\.br\Date and Time Signed: 01/17/24 10:22 EDT\.br\Electronically Co-Signed By: Florinda Maguire\.br\Date and Time Co-Signed: 12/18/23 16:08 EST Outside [facility] 12-21-2023 Outside Labs [id number]#1.00TIFF [facility] Physician Orderon 12-21-2023 Physician Order [id number]#1.00TIFF [facility] Ambulatory Visit Summaryon 0 3--2024 Ambulatory Visit Summary CHLOE AGARWAL :1955 Visit Date:12/18/2023 Ambulatory Visit Instructions Your Care Team Attending Physician - Vincent CANTRELL, Willie Tovar Primary Care Physician - Nathalie CANTRELL, Vick Referring Physician - NONE, XXXX This Is Your Medications List [facility] Prescription (Adult Blood Pressure Monitor with Large [...] Tablets By Mouth At bedtime Pickup at [facility] Unchanged meloxicam (meloxicam 15 mg Tab) 1 Tablets By Mouth Every day Unchanged metoprolol (metoprolol 50 mg ER Tab) 2 Tablets By Mouth Every day Unchanged [facility] Prescription (Adult Blood Pressure Monitor with Large [...] Mouth 2 times a day Pharmacy Information [facility]: [address] [place], [place] [id number] [phone] Allergies gabapentin (Headache) lisinopril (Coughing) sulfa drugs [...] us for your care. Normal [facility] ALL THYROXINE (T4) FREEon Free T4 [Mass/Vol] 1.30 ng/dL 0.76 - 1.46 ng/dL [facility] ALL LIPID PROFILE (FASTING)o n 11-30-2023 CHOL HDL RATIO 3.0 [facility] Comment on above: 3.3 - 4.4 LOW RISK 4.4 - 7.1 AVERAGE RISK 7.1 - 11.0 MODERATE RISK >11.0 HIGH RISK Cholesterol [Mass/Vol] 177 mg/dL NINF - 200 mg/dL [facility] Cholesterol in HDL [Mass/Vol] 59 mg/dL 40 - 60 mg/dL [facility] Comment on above: > or =60 mg/dl - LOW CARDIOVASCULAR RISK <40 mg/dl - HIGH CARDIOVASCULAR RISK Magnesium [Mass/Vol] 96.8 mg/dL [facility] Comment on above: <100 mg/dl OPTIMAL 100-129 mg/dl NEAR OR ABOVE OPTIMAL 130-159 mg/dl BORDERLINE HIGH 160-189 mg/dl HIGH >190 mg/dl VERY HIGH Magnesium [Mass/Vol] 21.2 mg/dL [facility] Triglyceride [Mass/Vol] 106 mg/dL NINF - 150 mg/dL [facility] ALL THYROID STIM HORMONEon 0 11-30-2023 TSH Qn 0.028 m[IU]/L Low [facility] CCF CMP (CMP) (FOR REMOTE FH C USE)on 11-30-2023 Albumin [Mass/Vol] 3.6 g/dL 3.4 - 5.0 g/dL [facility] ALBUMIN GLOBULIN RATIO 1.0 [facility] ALP [Catalytic activity/Vol] 62 U/L 46 - 116 U/L [facility] ALT [Catalytic activity/Vol] 23 U/L 14 - 59 U/L [facility] Anion gap [Moles/Vol] 12.6 mmol/L [facility] AST [Catalytic activity/Vol] 17 U/L 15 - 37 U/L [facility] Bilirubin [Mass/Vol] 1.2 mg/dL High 0.2 - 1 .0 mg/dL [facility] Calcium [Mass/Vol] 9.1 mg/dL 8.5 - 10. 1 mg/dL [facility] Chloride [Moles/Vol] 102 mmol/L 98 - 10 7 mmol/L [facility] CO2 [Moles/Vol] 30.4 mmol/L 21.0 - 32.0 mmol/L [facility] Creatinine [Mass/Vol] 0.99 mg/dL 0.55 - 1.02 mg/dL [facility] GFR/1.73 sq M.predicted CKD-EPI (S/P/Bld) [Vol rate/Area] >60 60 - PINF [facility] Globulin (S) [Mass/Vol] 3.6 g/dL [facility] Glucose [Mass/Vol] 110 mg/dL High 74 - 106 mg/dL [facility] Potassium [Moles/Vol] 4.0 mmol/L 3.5 - 5.1 mmol/L [facility] Protein [Mass/Vol] 7.2 g/dL 6.4 - 8.2 g/dL [facility] Sodium [Moles/Vol] 141 mmol/L 136 - 145 mmol/L [facility] TBH EGFR-NON AF TUNISIAN 56 Low 60 - PINF [facility] Urea nitrogen [Mass/Vol] 31.0 mg/dL High 7.0 - 18.0 mg/dL [facility] Urea nitrogen/Creatinine [Mass ratio] 31.3 mg/mg [facility] IGP,APTIMA HPV,AGE GDLNon AGE GDLN ACOG TESTING Note . [facility] Comment on above: TESTS RESULT FLAG U NITS REF RANGE LAB Clinician Provided Cytology Information Source.............Cervix;Endocervix No. of containers..01 ThinPrep Vial Age Algo ACOG Adamaris... Note 01 <21 or >65 or no age provided FLAG LEGEND: L-Low Normal,H-High Normal,LL-Alert Low,HH-Alert High <-Panic Low,>-Panic High,A-Abnormal,AA-Critical Abnormal Performed at: 01 =G [facility] [address] [address] Adelina Nunez MD, PAP IG (IMAGE GUIDED) Note . [facility] Comment on above: TESTS RESULT FLAG UN ITS REF RANGE LAB DIAGNOSIS: 02 NEGATIVE FOR INTRAEPITHELIAL LESION OR MALIGNANCY. Specimen adequacy: 02 Satisfactory for evaluation. Endocervical and/or squamous metaplastic cells (endocervical component) are present. Performed by: 02 Vicky Madsen, Garbage Truck Driver ([facility]) . 02 Note: Note 02 The Pap smear is a screening test designed to aid in the detection of premalignant and malignant conditions of the uterine cervix. It is not a diagnostic procedure and should not be used as the sole means of detecting cervical cancer. Both false-positive and false-negative reports do occur. Test Methodology: Note 02 The Cinario(R) Loader Operator/Ground Leader was unable to read this specimen. Therefore a manual review was performed. FLAG LEGEND: L-Low Normal,H-High Normal,LL-Alert Low,HH-Alert High <-Panic Low,>-Panic High,A-Abnormal,AA-Critical Abnormal Performed at: 02 WB [facility] [address] [place] [address] Adelina Nunez MD, Performed at: =G - [facility] [address] [id number] Black Top Raker: Adelina Nunez MD, Phone: [phone] Performed at: [facility] Lab[address] [id number] Black Top Raker: Adelina Nunez MD, Phone: [phone] BRUSH-SPATULA CERVIX ENDOCERVIX [facility] No Panel Informationon 11-30 Interpretation and review of laboratory results Abnormal [facility] Consent for Treatmenton Consent for Treatment [id number]#1.00TIFF Normal [facility] Consultation Noteon 11-20-19 24 Consultation Note [...] QID, # 120 tab(s), Refills(s) 3, Pharmacy: [facility], 152, cm, 04/03/23 9:20:00 EDT, Height/Length Dosing, 80, kg, 04/03/23 9:20:00 EDT, Weight Dosing Protonix 40 mg Tab-DR: 40 mg = 1 tab(s), Oral, BID, # 120 tab(s), Refills(s) 0, Pharmacy: [facility], 152.4, cm, 04/01/21 7:20:00 EDT, Height/Length Dosing, 85.5, kg, 04/01/21 7:20:00 EDT, Weight Dosing hydrochlorothiazide 12.5 mg Cap: 12.5 mg = 1 cap(s), Oral, Daily, # 30 cap(s), Refills(s) 6, Pharmacy: [facility], 152, cm, 11/17/23 11:29:00 EST, Height/Length Dosing, 79.6, kg, 11/17/23 11:29:00 EST, Weight Dosing losartan 100 mg Tab: 100 mg = 1 tab(s), Oral, Bedtime, # 90 tab(s), Refills(s) 1, Pharmacy: [facility], 152, cm, 07/14/23 9:26:00 EDT, Height/Length Dosing, 76.9, kg, 07/14/23 9:26:00 EDT, Weight Dosing pregabalin 25 mg Cap: 25 mg = 1 cap(s), Oral, BID, start with once a day for 3-5 days. If doing well can go to BID, # 60 cap(s), Refills(s) 0, Pharmacy: [facility], 152, cm, 10/26/23 13:07:00 EST, Height/Length [...] All Problems Chronic GERD / SNOMED CT 515291869 / Confirmed Unilateral primary osteoarthritis, right knee / SNOMED CT 6828845117 / Confirmed Gastritis / SNOMED CT 8920132 / Confirmed Vertigo / SNOMED CT 3997604791 / Confirmed BMI 34.0-34.9,adult / SNOMED CT 457161448 / Confirmed Regurgitation of stomach contents / SNOMED CT 015100592 / Confirmed Osteoporosis / SNOMED CT 767041993 / Confirmed HTN (hypertension) / SNOMED CT 9254573427 / Confirmed Dysphagia / SNOMED CT 80074071 / Confirmed Epigastric pain / SNOMED CT 220269611 / Confirmed Chest pain due to GERD / SNOMED CT 23770430 / Confirmed Screening for malignant neoplasm of colon / SNOMED CT 105045765 / Confirmed H/O: osteoarthritis / SNOMED CT 272214106 / Confirmed Hiatal hernia with gastroesophageal reflux / SNOMED CT 0159264188 / Confirmed Duodenogastric bile reflux / SNOMED CT 90515543 / Confirmed Sigmoid diverticulosis / SNOMED CT 0376482692 / Confirmed Tendonitis / SNOMED CT 32030102 / Confirmed Resolved: GERD - Gastro-esophageal reflux disease / SNOMED CT 7943773963 Resolved: Appendicitis / SNOMED CT 640436210 Resolved: Cough / SNOMED CT 03114903 Resolved: Sinus drainage / SNOMED CT 818674929 Canceled: GERD with apnea / SNOMED CT 1398347056 Objective Vital Signs 11/20/2023 13:11 EST Peripheral [...] (more content not included)... Normal [facility] Comment on above: Result Comment: Elec tronically Signed By: Anna GAMEZ, Vicky\.elmo\Date and Time Signed: 11/20/23 13:40 EST Office/Clinic Note-Physician on 11-20-2023 Office/Clinic Note-Physician [id number]#1.00TIFF Normal [facility] Patient Correspondenceon Patient Correspondence [id number]#1.00TIFF [facility] Consent for Treatmenton 10-21 Consent for Treatment [id number]#1.00TIFF Normal [facility] Heart and Vascular Office/Cl inic Noteon 11-17-2023 Heart and Vascular Office/Clinic Note History of Present Illness Patient is a very pleasant 68-year-old hypertensive female, nondiabetic, non-smoker, referred to our office after she went to the emergency room on 09/02/2021 with abdominal pain radiating into her back. She reportedly had a stress test, echocardiogram and Holter monitor at [facility] prior to her ER visit on 09/02/2021. Troponins were negative x1, and she was assigned a heart score of 4 and discharged home. In addition the patient apparently had a syncopal episode several weeks prior to her presentation, but cannot recall whether she had any chest pain prior to her syncope.. Her echocardiogram done at [facility] on 08/20/2021 which showed left ventricular systolic [...] took place at an outside facility at [facility] on 09/03/2021 which was read as normal. [...] In addition she has a brother in [place] who apparently has coronary disease the specific [...] (more content not included)... Normal [facility] Comment on above: Result Comment: Elec tronically Signed By: MISAEL CANTRELL, Landon Mckinley\.elmo\Date and Time Signed: 11/17/23 11:44 EST Physician Orderon 11-17-2023 Physician Order [id number]#1.00TIFF Normal [facility] XR Pelvis 1 or 2 Viewson [...] na DAP = na Normal [facility] XR Spine Lumbosacral 2 or 3 [...] na DAP = na Normal [facility] Consent for Treatmenton Consent for Treatment [id number]#1.00TIFF [facility] Consent for Treatment [id number]#1.00TIFF [facility] Consultation Noteon 10-26-19 Consultation Note Patient: CHLOE [...] QID, # 120 tab(s), Refills(s) 3, Pharmacy: [facility], 152, cm, 04/03/23 9:20:00 EDT, Height/Length Dosing, 80, kg, 04/03/23 9:20:00 EDT, Weight Dosing Protonix 40 mg Tab-DR: 40 mg = 1 tab(s), Oral, BID, # 120 tab(s), Refills(s) 0, Pharmacy: [facility], 152.4, cm, 04/01/21 7:20:00 EDT, Height/Length Dosing, 85.5, kg, 04/01/21 7:20:00 EDT, Weight Dosing losartan 100 mg Tab: 100 mg = 1 tab(s), Oral, Bedtime, # 90 tab(s), Refills(s) 1, Pharmacy: [facility], 152, cm, 07/14/23 9:26:00 EDT, Height/Length Dosing, 76.9, kg, 07/14/23 9:26:00 EDT, Weight Dosing metoprolol 50 mg ER Tab: 50 mg = 1 tab(s), Oral, Daily, # 90 tab(s), Refills(s) 1, Pharmacy: [facility], 152, cm, 07/14/23 9:26:00 EDT, Height/Length Dosing, 76.9, kg, 07/14/23 9:26:00 EDT, Weight Dosing pregabalin 25 mg Cap: 25 mg = 1 cap(s), Oral, BID, start with once a day for 3-5 days. If doing well can go to BID, # 60 cap(s), Refills(s) 0, Pharmacy: [facility], 152, cm, 10/26/23 13:07:00 EST, Height/Length Dosing, 70.5, kg, 10/26/23 13:07:00 EST, Weigh... Documented Medications Documented Aleve: Refills(s) 0 Multi Vitamin+: Oral, Daily, Refill(s) 0 alendronate 70 mg Tab: TAKE 1 TABLET BY MOUTH 30 MINUTES BEFORE first food once a week, Prophylaxis ropinirole: 0.5 mg, Oral, Refills(s) 0 Problem list: All Problems Chronic GERD / SNOMED CT 595448091 / Confirmed Unilateral primary osteoarthritis, right knee / SNOMED CT 8783408927 / Confirmed Gastritis / SNOMED CT 5062065 / Confirmed Vertigo / SNOMED CT 3957743241 / Confirmed BMI 34.0-34.9,adult / SNOMED CT 978322585 / Confirmed Regurgitation of stomach contents / SNOMED CT 639538283 / Confirmed Osteoporosis / SNOMED CT 987491734 / Confirmed HTN (hypertension) / SNOMED CT 6280141676 / Confirmed Dysphagia / SNOMED CT 06121906 / Confirmed Epigastric pain / SNOMED CT [id number] / Confirmed Chest pain due to GERD / SNOMED CT 73183331 / Confirmed Screening for malignant neoplasm of colon / SNOMED CT 070421882 / Confirmed H/O: osteoarthritis / SNOMED CT 568274127 / Confirmed Hiatal hernia with gastroesophageal reflux / SNOMED CT 9192748437 / Confirmed Duodenogastric bile reflux / SNOMED CT 27419437 / Confirmed Sigmoid diverticulosis / SNOMED CT 4698890119 / Confirmed Tendonitis / SNOMED CT 78354205 / Confirmed Resolved: GERD - Gastro-esophageal reflux disease / SNOMED CT 2325968158 Resolved: Appendicitis / SNOMED CT 769189246 Resolved: Cough / SNOMED CT 40816278 Resolved: Sinus drainage / SNOMED CT 508124946 Canceled: GERD with apnea / SNOMED CT 4508289690 Objective Vital Signs 10/26/2023 12:48 EST Peripheral Pulse Rate 66 bpm Respiratory Rate 20 br/min Systolic Blood Pressure 143 mmHg HI Diastolic Blood Pressure 88 mmHg Mean Arterial Pressure, Cuff 106 mmHg General: Alert and oriented, No acute distress. Overweight Eye: Normal conjunctiva. HENT: Normocephalic, Normal hearing. Cardiovascular: No edema. Musculoskeletal Nor (more content not included)... Normal [facility] Comment on above: Result Comment: Elec tronically Signed By: Vicky Castillo PA-C\.br\Date and Time Signed: 10/26/23 13:22 EST Legal Correspondence Officeo n 10-26-2023 Legal Correspondence Office [id number]#1.00TIFF Normal [facility] Office/Clinic Note-Physician on 10-26-2023 Office/Clinic Note-Physician [id number]#1.00TIFF Normal [facility] Patient Correspondenceon Patient Correspondence [id number]#1.00TIFF Normal [facility] Patient Correspondence [id number]#1.00TIFF Normal [facility] Patient Correspondence [id number]#1.00TIFF Normal [facility] Patient Correspondence [id number]#1.00TIFF Normal [facility] Patient History Officeon Patient History Office [id number]#1.00TIFF Normal [facility] Physician Orderon 10-26-2023 Physician Order [id number]#1.00TIFF Normal [facility] Physician Order [id number]#1.00TIFF Normal [facility] Consent for Procedure/Surger yon 10-07-2023 Consent for Procedure/Surgery [id number]#1.00TIFF Normal [facility] Consent for Treatmenton 09-19 Consent for Treatment [id number]#1.00TIFF Normal [facility] Discharge Instructionson Discharge Instructions [id number]#1.00TIFF Normal [facility] IntraOperative Documentson 1 12-08-2022 IntraOperative Documents [id number]#1.00TIFF [facility] Main OR Intraoperative Recor don 10-07-2023 Main OR Intraoperative Record IntraOp Document Type [facility] Summary Primary Physician: Claudio Monroe DO Finalized Date/Time: 10/07/23 09:50:14 Pt. Name: CHLOE AGARWAL/Sex: 1955 Female Med Rec #: [id number] Physician: Claudio Monroe DO Financial #: [id number] Pt. Type: P Room/Bed: / Admit/Disch: 10/07/23 [...] Antoinette Brito Role Performed Surgeon - Primary Internet Sourcer - Primary Scrub - Primary Time In 10/07/23 09:41:00 10/07/23 09:41:00 10/07/23 09:41:00 Time Out 10/07/23 09:50:00 10/07/23 09:50:00 10/07/23 09:50:00 Procedure TRANSFORAMINAL EPIDURAL TRANSFORAMINAL EPIDURAL TRANSFORAMINAL EPIDURAL STEROID INJECTIO(Right) STEROID INJECTIO(Right) STEROID INJECTIO(Right) Comments Last Modified By: Lashanda Durant RN, RN, Lashanda Elizalde RN 10/07/23 09:49:59 10/07/23 09:49:59 10/07/23 09:49:59 Entry 4 Case Attendee Faustino Dorado Role Performed Gear Roller Time In 10/07/23 09:41:00 Time Out 10/07/23 [...] and tissue Entry 1 Skin Integrity Intact, [place], Warm, and Skin Abnormality No Dry Outcomes [...] (more content not included)... Normal [facility] Main OR Preoperative Recordo n 10-07-2023 Main OR Preoperative Record Holding Area Document Type FTPM Summary Primary Physician: Claudio Monroe DO Finalized Date/Time: 10/07/23 09:09:26 Pt. Name: CHLOE AGARWAL/Sex: 1955 Female Med Rec #: [id number] Physician: Claudio Monroe DO Financial #: [id number] Pt. Type: P Room/Bed: / Admit/Disch: 10/07/23 [...] By: Shea Aguirre RN 10/07/23 09:09 Normal [facility] Patient Correspondenceon Patient Correspondence [id number]#1.00TIFF Normal [facility] Consent for Treatmenton Consent for Treatment [id number]#1.00TIFF [facility] Consultation Noteon 09-22-20 Consultation Note Patient: [...] QID, # 120 tab(s), Refills(s) 3, Pharmacy: [facility], 152, cm, 04/03/23 9:20:00 EDT, Height/Length Dosing, 80, kg, 04/03/23 9:20:00 EDT, Weight Dosing Medrol 4 mg Tab: = 1 packet(s), Oral, As Directed, as directed on package labeling, X 6 day(s), # 21 tab(s), Refills(s) 0, Pharmacy: [facility], 152, cm, 09/22/23 11:39:00 EST, Height/Length Dosing, 70.5, kg, 09/22/23 11:39:00 EST, Weight Dosing Protonix 40 mg Tab-DR: 40 mg = 1 tab(s), Oral, BID, # 120 tab(s), Refills(s) 0, Pharmacy: [facility], 152.4, cm, 04/01/21 7:20:00 EDT, Height/Length Dosing, 85.5, kg, 04/01/21 7:20:00 EDT, Weight Dosing losartan 100 mg Tab: 100 mg = 1 tab(s), Oral, Bedtime, # 90 tab(s), Refills(s) 1, Pharmacy: [facility], 152, cm, 07/14/23 9:26:00 EDT, Height/Length Dosing, 76.9, kg, 07/14/23 9:26:00 EDT, Weight Dosing metoprolol 50 mg ER Tab: 50 mg = 1 tab(s), Oral, Daily, # 90 tab(s), Refills(s) 1, Pharmacy: [facility], 152, cm, 07/14/23 9:26:00 EDT, Height/Length Dosing, 76.9, kg, 07/14/23 9:26:00 EDT, Weight Dosing Documented Medications Documented Aleve: Refills(s) 0 Multi Vitamin+: Refill(s) 0 alendronate 70 mg Tab: TAKE 1 TABLET BY MOUTH 30 MINUTES BEFORE first food once a week, Prophylaxis ropinirole: 0.5 mg, Oral, Refills(s) 0 Problem list: All Problems BMI 34.0-34.9,adult / SNOMED CT 542544152 / Confirmed Chest pain due to GERD / SNOMED CT 25701580 / Confirmed Chronic GERD / SNOMED CT 991627966 / Confirmed Duodenogastric bile reflux / SNOMED CT 24058948 / Confirmed Dysphagia / SNOMED CT 99268576 / Confirmed Epigastric pain / SNOMED CT 343169681 / Confirmed Gastritis / SNOMED CT 1299409 / Confirmed H/O: osteoarthritis / SNOMED CT 843313294 / Confirmed Hiatal hernia with gastroesophageal reflux / SNOMED CT 8242070737 / Confirmed HTN (hypertension) / SNOMED CT 4074175591 / Confirmed Osteoporosis / SNOMED CT 112878530 / Confirmed Regurgitation of stomach contents / SNOMED CT 453767844 / Confirmed Screening for malignant neoplasm of colon / SNOMED CT 925401460 / Confirmed Sigmoid diverticulosis / SNOMED CT 0538937742 / Confirmed Tendonitis / SNOMED CT 36265091 / Confirmed Unilateral primary osteoarthritis, right knee / SNOMED CT 6930022150 / Confirmed Vertigo / SNOMED CT 1222685997 / Confirmed Objective Vital Signs 09/22/2023 11:23 [...] (more content not included)... Normal [facility] Comment on above: Result Comment: Elec tronically Signed By: Valeri CANTRELL, Demar Preston.br\Date and Time Signed: 09/22/23 11:54 EST Office/Clinic Note-Physician on 09-22-2023 Office/Clinic Note-Physician [id number]#1.00TIFF Normal [facility] Patient Correspondenceon Patient Correspondence [id number]#1.00TIFF Normal [facility] Patient Correspondence [id number]#1.00TIFF Normal [facility] Patient History Officeon Patient History Office [id number]#1.00TIFF Normal [facility] Physician Orderon 07-28-2023 Physician Order [id number]#1.00TIFF Normal [facility] Consenton 07-24-2023 Consent [id number]#1.00TIFF Normal [facility] Patient Eval Forms Officeon 07-24-2023 Patient Eval Forms Office [id number]#1.00TIFF Normal [facility] Patient Eval Forms Office [id number]#1.00TIFF Normal [facility] Consent for Treatmenton Consent for Treatment [id number]#1.00TIFF Normal [facility] CHEMISTRYOrdered By: SYSTEM SYSTEM on 06-05-2023 Anion gap [Moles/Vol] 12 mmol/L Normal 6 - 16 mEq/L FT Remisol Calcium [Mass/Vol] 9.5 mg/dL Normal 8.9 - 11. 1 mg/dL [facility] Chloride [Moles/Vol] 107 mmol/L Normal 101 - 1 11 mmol/L [facility] Remisol CO2 [Moles/Vol] 26 mmol/L Normal 21 - 31 mmol/L [facility] Remisol Creatinine [Mass/Vol] 0.7 mg/dL Normal 0.5 - 1.3 mg/dL [facility] Remisol GFR/1.73 sq M.predicted among non-blacks MDRD (S/P/Bld) [Vol rate/Area] 96 mL/min/1.73 m2 Normal >=59mL/min /1.73 m2 [facility] Chem S Glucose [Mass/Vol] 100 mg/dL Normal 55 - 199 mg/dL [facility] Remisol Potassium [Moles/Vol] 3.6 mmol/L Normal 3.5 - 5.3 mmol/L [facility] Remisol Sodium [Moles/Vol] 141 mmol/L Normal 135 - 145 mmol/L [facility] Remisol Troponin I.cardiac [Mass/Vol] 8.30 pg/mL Low 10.10 - 27.10 pg/mL [facility] Remisol Urea nitrogen [Mass/Vol] 19 mg/dL Normal 5 - 21 mg/dL [facility] Remisol Urea nitrogen/Creatinine [Mass ratio] 27 mg/mg High 10 - 20 [facility] Remisol CHEMISTRYOrdered By: Lab ROP User on 06-05-2023 Glucose [Mass/Vol] 109 mg/dL High 55 - 99 mg/dL [facility] POC Subsection Comment on above: Result Comment: Kacey wiley Meter POC Device SN [id number] Invalid Interpretation Code [facility] POC Subsection POC User ID [id number] Invalid Interpretation Code [facility] POC Subsection POC Username SHARITA VARGAS Invalid Interpretation Code [facility] POC Subsection HEMATOLOGYOrdered By: SYSTEM SYSTEM on 06-05-2023 Basophils/100 WBC (Bld) 0.8 % Normal 0.0 - 2.0 % [facility] HemeAutoSS Basophils/Leukocytes Auto (Bld) [Pure # fraction] 0.1 E9/L Normal 0.0 - 0.2 E9/L [facility] HemeAutoSS Eosinophils/100 WBC (Bld) 3.4 % Normal 0.0 - 8.0 % [facility] HemeAutoSS Eosinophils/Leukocyte s Auto (Bld) [Pure # [...] 7.5 E9/L Normal 4.0 - 11.0 E9/L [facility] HemeAutoSS CREATININEon 03-03-2023 Creatinine [Mass/Vol] 0.89 mg/dL Normal 0.55-1.02 [facility] Comment on above: Performed By: #### C LING #### [facility] [address] [address] [address] Lorraine Scott EGFR-AF TUNISIAN >60 Normal >=60 [facility] Comment on above: Performed By: #### C LING #### [facility] [address] [address] [address] Lorraine Scott EGFR-NON AF TUNISIAN >60 Normal >=60 [facility] Comment on above: Performed By: #### C LING #### [facility] [address] ABD/PELV W CONon [...] RYAN VAZQUEZ Date: 2023-03-03 10:08 Normal [facility] US SINGLE QUAD RT UPPERon [...] RYAN VAZQUEZ Date: 2023-02-09 11:57 Normal [facility] Covid-19 PCR ([facility]on 10-19 SARS-CoV-2 (COVID-19) RNA SHAHEEN+probe Ql (Unsp spec) Detected Abnormal NOT DETECTED [facility] Comment on above: Result Comment: This test is not yet approved or cleared by the [place] FDA. When there are no FDA-approved or cleared tests available, and other criteria are met, FDA can make tests available under an emergency access mechanism called an Emergency Use Authorization (EUA). The EUA for this test is supported by the [place] of Health and Human Service's declaration that [...] used). Performed By: #### C VDTBH #### [facility] [address] [place] [address] Dr. Lorraine Scott INFLUENZA A AND B AGon 11-05 [facility] SEE BELOW Normal [facility] Comment on above: Result Comment: Nega tive for Flu A protein angiten. Infection due to Flu A cannot be ruled out. Flu A angiten in the sample may be below the detection limit of the test. Performed By: #### I NFLUAB #### [facility] [address] [place] [address] Dr. Lorraine Scott INFLUBNEG SEE BELOW Normal [facility] Comment on above: Result Comment: Nega tive for Flu B protein antigen. Infection due to Flu B cannot be ruled out. Flu B antigen in the sample may be below the detection limit of the test. Performed By: #### I NFLUAB #### [facility] [address] [place] [address] Dr. Lorraine Scott INFLUENZA A AG Negative Normal NEGATIVE SEE COMMENT [facility] Comment on above: Performed By: #### I NFLUAB #### [facility] [address] [place] [address] Dr. Lorraine Scott INFLUENZA B AG Negative Normal NEGATIVE SEE COMMENT [facility] Comment on above: Performed By: #### I NFLUAB #### [facility] [address] [place] [address] Dr. Lorraine Scott MG MAMM SCREEN 3D LAURA CADon 10-22-2022 MG MAMM SCREEN 3D LAURA CAD Patient: CHLOE AGARWAL Exam Date: 10/22/2022 : 1955 Gender:F Ordering : DR JUAN CARLOS NARVAEZ . Admission #: [id number] Family : Order #: [id number] CLICK HERE TO VIEW EXAM RADIOLOGY REPORT [...] Treatments None Family Cancers None LOCATION: [facility] BREAST COMPOSITION: Scattered areas fibroglandular [...] Vazquez M.D. on 10/23/2022 at 08:41 Normal [facility] XR DEXA BONE DENSITYon 10-22 XR [...] by: RYAN VAZQUEZ Date: 2022-10-22 09:12 Normal [facility] PAP ACOG PANEL 2: 30 to 65on 10-03-2022 . . Normal [facility] Comment on above: Result Comment: Perf ormed at: WB Performed By: #### 4 [id number] #### [facility] [address] [place] [address] Dr. Lorraine Scott Age Gdln ACOG Testing 30-65 Normal [facility] Comment on above: Performed By: #### 4 [id number] #### [facility] [address] [place] [address] Dr. Lorraine Scott DIAGNOSIS: Comment Normal [facility] Comment on above: Result Comment: NEGA TIVE FOR INTRAEPITHELIAL LESION OR MALIGNANCY. CELLULAR CHANGES ASSOCIATED WITH ATROPHY ARE PRESENT. Performed at: WB Performed By: #### 4 [id number] #### [facility] [address] [place] [address] Dr. Lorraine Scott HPV Aptima Negative Normal Negative [facility] Comment on above: Result Comment: This nucleic acid amplification test detects fourteen high-risk HPV types (16,18,31,33,35,39,45,51,52,56,58,59,66,68) without differentiation. Performed at: =G Performed By: #### 4 [id number] #### [facility] [address] [place] [address] Dr. Lorraine Scott HPV Genotype Reflex Comment Normal [facility] Comment on above: Result Comment: Crit eria not met, HPV Genotype not performed. Performed at: WB Performed By: #### 4 [id number] #### [facility] [address] [place] [address] Dr. Lorraine Scott Methodology: Comment Normal [facility] Comment on above: Result Comment: This liquid based ThinPrep(R) pap test was screened with the use of an image guided system. Performed at: WB Performed By: #### 4 [id number] #### [facility] [address] [place] [address] Dr. Lorraine Scott Note: Comment Normal [facility] Comment on above: Result Comment: The Pap smear is a screening test designed to aid in the detection of premalignant and malignant conditions of the uterine cervix. It is not a diagnostic procedure and should not be used as the sole means of detecting cervical cancer. Both false-positive and false-negative reports do occur. . Performed at: WB Performed By: #### 4 [id number] #### [facility] [address] [place] [address] Dr. Lorraine Scott Performed by: Comment Normal [facility] Comment on above: Result Comment: Kong Juarez, Garbage Truck Driver (ASCP) Performed at: WB Performed By: #### 4 [id number] #### [facility] [address] [place] [address] Dr. Lorraine Scott Specimen adequacy: Comment Normal [facility] Comment on above: Result Comment: Sati sfactory for evaluation. Endocervical component may not be distinguished in cases of atrophy. Performed at: WB Performed By: #### 4 [id number] #### [facility] [address] [address] [address] Lorraine Scott CHEMISTRYOrdered By: SYSTEM SYSTEM [...] 56 mL/min/1.73 m2 Low >=59mL/min /1.73 m2 [facility] Chem S Glucose [Mass/Vol] 104 mg/dL Normal [...] [facility] Intraoperative Noteon 2017 Intraoperative Note [id number]#1.00OTGTIFF [facility] Coding Summaryon 12-14-2017 Coding Summary CODING DATE: 018 [facility] STATUS: Home PAYOR: Commercial Insurance APC DESCRIPTION 5361 Level 1 Laparoscopy and Related Services ADMIT DX: REASON FOR VISIT DX: K35.80 Unspecified acute appendicitis FINAL DX: PRINCIPAL: K35.80 Unspecified acute appendicitis SECONDARY: K21.9 Gastro-esophageal reflux disease without esophagitis PYMT PROC APC STAT DESCRIPTION DOCTOR NAME DATE 29718 5361 J1 Laparoscopy, surgical, Adryan Yoon MD appendectomy NOTE: The code number assigned matches the documented diagnosis and / or procedure in the patient's chart. However, the narrative phrase printed from the coding software may appear abbreviated, or result in slightly different terminology. Coded By: Tenisha Smith Date Saved: 12/14/2017 09:53 am [facility] Lab - Other Lab Resultson Lab - Other Lab Results [id number]#1.00OTGTIFF [facility] Operative Report - Surgeon/P avery 12-09-2017 Operative [...] theprocedure without any difficulties.Adryan Yoon M.D.JOB #: [id number]: 12/09/2017T: 12/09/2017[Electronically Signed on: 12/15/2017 10:32 EST] Adryan Yoon MD[Verified on: 12/15/2017 10:32 EST] Adryan Yoon MD[Transcribed on: 12/09/2017 09:14 EST]GDU [facility] Outside Recordson 12-09-2017 Outside Records [id number]#1.00OTGTIFF [facility] Outside Records [id number]#1.00OTGTIFF [facility] MAGR Postoperative Recordon 12-08-2017 MAGR Postoperative Record MAGR Phase II Record Summary Primary Physician: Adryan Yoon MD Finalized Date/Time: 12/08/17 13:12:55 Pt. Name: ANYCHLOE.O.B./Sex: 1955 FEMALE Med Rec #: [id number] Physician: Adryan Yoon MD Financial #: [id number] Pt. Type: D Room/Bed: [facility] Admit/Disch: 12/04/17 03:05:00 - 12/05/17 [...] discharge instructions. General Comments: care per 2 [facility] nursing personnel Finalized By: Chloe Turcios RN Document Signatures Signed By: Chloe Turcios RN 12/08/17 13:12 [facility] Operative Report - Surgeon/P avery 12-08-2017 Operative Report - Surgeon/Physician [id number]#1.00OTGTIFF [facility] Pathology Sendout Teston 02- 20-2018 Pathology Send Out. See Report Normal [facility] Comment on above: Order Comment: JANET COWART Performed By: #### 2 [id number] ####[facility] (DEFAULT)[address] [place] [address] Provider Orderson 12-08-2017 Provider Orders [id number]#1.00[facility] Cons[facility]son 12-07-2017 Consent Forms [id number]#1.00[facility] Intraoperative Noteon 2017 Intraoperative Note [id number]#1.00[facility] Medication Managementon 11-19 Medication Management [id number]#1.00[facility] Telemetry Stripson 8 Telemetry Strips [id number]#1.00[facility] Discharge Summaryon 12-06-19 Discharge Summary DISCHARGE DIAGNOSIS: Acute appendicitis.DISCHARGE CONDITION: Good.HOSPITAL COURSE: The patient is a 62-year-old woman who presented [facility] emergency department. She was found to have a slightlyelevated white blood cell count. A CT scan was consistent with acuteappendicitis. The patient wanted to be transferred to [facility] andas a result, she underwent a laparoscopic appendectomy. Postoperatively sheis doing well. Her white blood cell count decreased to the normal range. Sheis tolerating a regular diet. Her pain is controlled and she is ambulatingwithout difficulty. As a result, she will be discharged home. She willfollow-up with me in two weeks.Adryan Yoon M.D.JOB #: [id number]: 12/05/2017T: 12/06/2017[Electronically Signed on: 12/09/2017 07:13 EST] Adryan Yoon MD[Verified on: 12/09/2017 07:13 EST] Adryan Yoon MD[Transcribed on: 12/06/2017 08:45 EST]GDU Normal [facility] .Auto Diff 1on 12-05-2017 Auto Baso % 0.1 % Low 0.2-2.0 [facility] Comment on above: Performed By: #### 7 [id number], [id number] ####[facility] (DEFAULT)[address] [place] [address] Auto [place] % 8 % Normal 1-12 [facility] Comment on above: Performed By: #### 7 [id number], [id number] ####[facility] (DEFAULT)[address] [place] [address] Auto Neut % 86 % Normal 44-88 [facility] Comment on above: Performed By: #### 7 [id number], [id number] ####[facility] (DEFAULT)[address] [place] [address] Baso Abs# 0.0 x10 Normal 0.0-0.2 [facility] Comment on above: Performed By: #### 7 [id number], [id number] ####[facility] (DEFAULT)[address] [place] [address] Eos Abs# 0.0 x10 Normal 0.0-0.4 [facility] Comment on above: Performed By: #### 7 [id number], [id number] ####[facility] (DEFAULT)[address] [place] [address] Eosinophils/100 leukocytes 0.0 % Low 0.9-4.0 [facility] Comment on above: Performed By: #### 7 [id number], [id number] ####[facility] (DEFAULT)[address] [place] [address] Lymphocytes 0.6 x10 Low 1.3-2.9 [facility] Comment on above: Performed By: #### 7 [id number], [id number] ####[facility] (DEFAULT)[address] [place] [address] Lymphocytes/100 leukocytes 6 % Low 14-48 [facility] Comment on above: Performed By: #### 7 [id number], [id number] ####[facility] (DEFAULT)[address] [place], [place] [id number] [place] Abs# 0.9 x10 High 0.0-0.8 [facility] Comment on above: Performed By: #### 7 [id number], [id number] ####[facility] (DEFAULT)[address] [place] [address] Neut Abs# 9.9 x10 High 1.5-9.2 [facility] Comment on above: Performed By: #### 7 [id number], [id number] ####[facility] (DEFAULT)[address] [place] [address] CBC w/ Auto Diffon 8 Erythrocyte distribution width Auto Ratio (RBC) 13.6 % Normal 11.5-15.0 [facility] Comment on above: Performed By: #### 7 [id number], [id number] ####[facility] (DEFAULT)[address] [place] [address] Erythrocytes (RBC) 3.75 x10 Normal 3.70-5.30 [facility] Comment on above: Performed By: #### 7 [id number], [id number] ####[facility] (DEFAULT)[address] [place] [address] Hematocrit (HCT) 34.4 % Normal 33.7-40.4 [facility] Comment on above: Performed By: #### 7 [id number], [id number] ####[facility] (DEFAULT)[address] [place] [address] Hemoglobin mass conc (Bld) 11.0 g/dL Low 11.3-15.9 [facility] Comment on above: Performed By: #### 7 [id number], [id number] ####[facility] (DEFAULT)[address] [place] [address] Man Diff? Auto Normal [facility] Comment on above: Performed By: #### 7 [id number], [id number] ####[facility] (DEFAULT)[address] [place] [address] MCH 29 pg Normal 24-34 [facility] Comment on above: Performed By: #### 7 [id number], [id number] ####[facility] (DEFAULT)[address] [place] [address] MCHC mass conc (RBC) 32 g/dL Normal 26-37 [facility] Comment on above: Performed By: #### 7 [id number], [id number] ####[facility] (DEFAULT)[address] [place] [address] MCV 92 fL Normal 81-100 [facility] Comment on above: Performed By: #### 7 [id number], [id number] ####[facility] (DEFAULT)[address] [place] [address] Platelet mean volume (PMV) 11.7 fL High 6.3-10.2 [facility] Comment on above: Performed By: #### 7 [id number], [id number] ####[facility] (DEFAULT)[address] [place] [address] Platelets 204 x10 Normal 138-427 [facility] Comment on above: Performed By: #### 7 [id number], [id number] ####[facility] (DEFAULT)[address] [place] [address] WBC (Leukocytes) 11.4 x10 High 3.5-10.5 [facility] Comment on above: Performed By: #### 7 [id number], [id number] ####[facility] (DEFAULT)[address] [place] [address] Education Noteon 12-05-2017 Education Note Education MaterialsGastroenterologyApp [...] Reviewed: 02/20/2016Padilla [employer] Patient Education ? 2017 [employer] Normal [facility] Inpatient Clinical Summaryon 12-05-2017 Inpatient Clinical Summary [facility]SOUTHClinical Discharge SummaryPERSON INFORMATIONName CHLOE AGARWAL Age 62 Years 59Sex FEMALE Language Sao Tomean PCP Agus MCGHEE Status Med Service Ambulatory SurgeryN [id number] Acct# Arrival 12/04/17 03:05:00Visit Reason APPENDICITIS Acuity LOS 000 34:38Address:[place] [address]Vuekivh:PROVIDER INFORMATIONVITALS INFORMATIONVital Sign Triage LatestTemp Oral 36.8 DegC 36.4 DegCTemp TemporalTemp IntravascularTemp AxillaryTemp Jzyrzw16 Sat 99 % 99 %Respiratory Rate 16 br/min 18 br/minPeripheral Pulse Rate 79 bpm 60 bpmApical Heart Rate 76 bpm 60 bpmBlood Pressure 138 mmHg / 86 mmHg 97 mmHg / 59 mmHgComment:MEDICAL INFORMATIONAllergy Info:Allergies sulfonamidePrescriptions Given:Home Meds Displayacetaminophen-hydroco done (T[place] 7.5 mg-325 mg oral tablet) 1 tab(s), [...] hours as needed for for painacetaminophen-hydrocodon e (Troy 7.5 mg-325 mg oral tablet) 1 tab(s) [...] range between ( 1.3 and 2.9 ) [place] Abs#: 0.9 x103/mcL -- Normal range between ( 0.0 and 0.8 ) Auto Baso %: 0.1 % -- Normal range between ( 0.2 and 2.0 ) Auto [place] %: 8 % -- Normal range between [...] ndicitisFollow up:With: Address: When:Adryan Yoon MD [address] [place] [address] Business (1)DIAGNOSIS1:Acute appendicitisPROBLEMSProblems Active Arthritis Heart murmur HeartburnComment:PHYS DOC NOTES Normal [facility] Inpatient Patient Summaryon 12-05-2017 Inpatient Patient Summary [facility] [place] [id number] patient Discharge InstructionsName: CHLOE AGARWALDOB: [birth year] Address: [address] [facility] [address]oodr Care Provider:Name: CORINNEVilma GILBERTOHERNANDEZPhone: After you are discharged if you find you have any questions, please, call [phone] ext [phone] to speak to a nurse.Discharge Diagnosis: 1:Acute [...] or business decisions or sign any legal documentsAdena [facility] would like to thank you for allowing us to assist you with your healthcare needs. The following includes patient education materials and information regarding your injury/illness.CHLOE AGARWAL has been given the following list of follow-up instructions, prescriptions, and patient education materials:Follow-up InstructionsWith: Address: When:Adryan Yoon MD [address] [place] [id number] Business (1)MedicationsDuring the course of your visit, your medication list was updated with the most current information. The details of those changes are reflected below:Medications to Continue That Have Not ChangedOther Medicationsacetaminophen-hyd rocodone (Troy 7.5 mg-325 mg oral tablet) 1 tab(s) [...] that you can keep with you.acetaminophen-hydrocodon e (Troy 7.5 mg-325 mg oral tablet) 1 tab(s) [...] Reviewed: 02/20/2016Elsevier Interactive Patient Education ? 2017 [employer]pi[employer].Viruses or BacteriaWhat?s got you sick?Antibiotics only treat [...] for Disease Control and Prevention June 2014 [facility] Progress Note - Nurseon 11-19 Pulse (Heart [...] on: 12/05/2017 09:52 EST] Sim Chamorro RN [facility] Progress Note - Nurse Pt walking the sachin lway with RN, 200 ft, standby assist. Pt is steady. No c/o SOB or dizziness. Bilateral upper and lower abdominal pain 3/10, prn norco administered as ordered. Will continue to monitor, call light in reach.[Electronically Signed on: 12/05/2017 05:50 EST] Serina Cross[Verified on: 12/05/2017 05:50 EST] Serina Cross [facility] Progress Note - Nurse Pt is a/o [...] Cross[Verified on: 12/04/2017 23:39 EST] Serina Cross [facility] Anesthesia Noteon 12-04-2017 Anesthesia Note Patient: CHLOE AGARWAL : 62 years Sex: FEMALE : 59Associated Diagnoses: NoneAuthor: Fernie Sandovalostoperative InformationPost Operative Note: Post Anesthesia Care Unit.Review / ManagementCondition: Stable.AssessmentAnesthetic outcomeNo anesthetic complications noted.PlanTransfer/ Discharge: Patient can be discharged from PACU when criteria met.Condition good.[Electronically Signed on: 12/04/2017 15:01 EST] Fernie Sandoval DO[Verified on: 12/04/2017 15:01 EST] Fernie aSndoval DO [facility] Anesthesia Note Patient: CHLOE AGARWAL : 62 [...] 400 mg = 2 cap(s), PRN, PO, [id number] 20 mg oral delayed release capsule 20 mg = 1 cap(s), PO, DailyProblem list (past medical history):All ProblemsAlteration in comfort: pain / SNOMED CT 16236902 / ConfirmedArthritis / SNOMED CT 8052104 / ConfirmedHeart murmur / SNOMED CT 206694493 / ConfirmedHeartburn / SNOMED CT 08335921 / ConfirmedResolved: Kidney stones / SNOMED CT 430116880Ntvwlmyr: History of renal stent / SNOMED CT 3312672890Inpjhmim: Acute appendicitis / SNOMED CT 975793885MggcnhdulVtwwth History:DementiaFatherLiver massSisterCHF (congestive heart failure)MotherFatherProcedur e history:History of right total knee replacement (154043589862956).History of left total knee replacement (952155794059149).Tonsillect kike (999244999).Removal of ureteral stent (981649022).History of ureteral stent placement (8762429339).Social History Alcohol Assessment Use: Never. Tobacco Assessment Never (less than 100 in lifetime) Tobacco Use:. Substance Abuse Assessment Substance use: Never. 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 Home/Environment Assessment Lives with Children, Spouse. Living situation: Home/Independent. Nutrition/Health Assessment Regular, Caffeine intake amount: Hot tea in the morning..Social & Psychosocial CratbxKflybvf66/16/2018 Alcohol Use: NeverEmployment/Dvqpfk992017 Status: Self employed Description: Office workHome/Qvdzisttiot11/16/20 18 Lives with: Children, Spouse Living situation: Home/IndependentNutrition/He alth12/04/2017 Type of diet: Regular Caffeine intake amount: Hot tea in the morningSubstance Abuse12/04/2017 Substance use: QdldwIvrddww25/16/2018 Smoking tobacco use: Never (less than 100 in l.Physical ExaminationVS/MeasurementsMe asurements from flowsheet : Ojqpopznymzt36/16/18 03:09 EST Height 152.400 cm Height/Length Dosing [...] Temporomandibular joint mobility: Good. Mouth: Teeth ( [place] ). Neck: Non-tender, Full range of motion.Respiratory: [...] on: 12/04/2017 08:38 EST] Fernie Sandoval DO [facility] History and Physicalon 12-04 History and Physical DATE OF ADMISSION: 12/04/17 MEDICAL HISTORYCHIEF COMPLAINT: Right lower quadrant abdominal pain.HISTORY OF PRESENT ILLNESS: The patient is a 62-year-old woman withabdominal pain. She presented to the emergency department at [facility]. A CT scan of the abdomen and pelvis was obtained which wasconsistent with acute appendicitis. Due to personal reasons, she did notwant the [facility] and as a result, shewanted [facility] be [facility] [...] to undergo the procedure.Adryan Yoon M.D.JOB #: [id number]: 12/04/2017T: 12/04/2017[Electronically Signed on: 12/04/2017 07:16 EST] Adryan Yoon MD[Verified on: 12/04/2017 07:16 EST] Adryan Yoon MD[Transcribed on: 12/04/2017 06:52 EST][facility] MAGR Intraoperative Recordon 12-04-2017 MAGR Intraoperative Record MAGR Intra-Op Record Summary Primary Physician: Adryan Yoon MD Finalized Date/Time: 12/04/17 15:26:26 Pt. Name: CHLOE AGARWAL/Sex: 1955 FEMALE Med Rec #: [id number] Physician: Adryan Yoon MD Financial #: [id number] Pt. Type: D Room/Bed: [facility] Admit/Disch: 12/04/17 03:05:00 - Institution: Case [...] Role Performed Surgeon - Primary Anesthesiologist of Internet Sourcer Record Time In 12/04/17 09:44:00 12/04/17 09:44:00 12/04/17 09:44:00 Time Out 12/04/17 10:42:00 12/04/17 10:42:00 12/04/17 10:42:00 Procedure Appendectomy Appendectomy Appendectomy Laparoscopic Laparoscopic Laparoscopic Last Modified By: Olinda Mora Cynthia M Cartier, Cynthia M 12/04/17 10:56:16 12/04/17 10:56:16 12/04/17 10:56:16 Entry 4 Entry 5 Entry 6 Case Attendee Jennifer Li FOUR H CLUB AGENT BOARD CSFA/FOUR H CLUB AGENT, Antonia Bah RN Role Performed Estimator Printing Scrub Personnel Internet Sourcer Time In 12/04/17 09:44:00 12/04/17 09:44:00 12/04/17 [...] Signed By: Antonia Pérez RN 12/04/17 15:26 [facility] PACU Recordon 8 MAGR PACU Record MAGR PACU Record [facility] Primary Physician: Adryan Yoon MD Finalized Date/Time: 12/04/17 11:35:32 Pt. Name: CHLOE AGARWAL/Sex: 1955 FEMALE Med Rec #: [id number] Physician: Adryan Yoon MD Financial #: [id number] Pt. Type: D Room/Bed: 229/1 Admit/Disch: 12/04/17 03:05:00 - Institution: PACU Case Times MAGR Entry 1 In PACU I 12/04/17 10:44:00 Discharge from PACU 12/04/17 11:25:00 I Last Modified By: Vernell Gunderson RN 12/04/17 11:35:30 Finalized By: Vernell Gunderson RN Document Signatures Signed By: Vernell Gunderson RN 12/04/17 11:35 [facility] Progress Note - Nurseon 11-19 Progress Note [...] on: 12/04/2017 04:41 EST] Liliane Rivero RN [facility] Vital Signs Date Time Vital Sign Value Performing Clinician Davian swan 01-23-2025 14:25-0400 Blood Pressure Location Baldomero Bryant [facility] 01-23-2025 14:25-0400 Diastolic blood pressure 89 mm[Hg] Baldomero [facility] 01-23-2025 14:25-0400 Heart rate 70 /min Baldomero [facility] 01-23-2025 14:25-0400 Respiratory rate 16 /min Baldomero [facility] 01-23-2025 14:25-0400 SaO2% (BldA) [Mass fraction] 99 % Baldomero [facility] 01-23-2025 14:25-0400 Systolic blood pressure 149 mm[Hg] Baldomero [facility] 11-28-2024 08:59-0500 Body mass index (BMI) [Ratio] 31.64 kg/m2 Antionette LOPEZ Work Phone: [facility] 11-28-2024 08:59-0500 Body weight 73.48 kg Antionette LOPEZ Work Phone: [facility] 11-28-2024 08:59-0500 Diastolic blood pressure 76 mm[Hg] Antionette LOPEZ Work Phone: [facility] 11-28-2024 08:59-0500 Systolic blood pressure 126 mm[Hg] Antionette LOPEZ Work Phone: [facility] 10-05-2024 11:45-0500 Diastolic blood pressure 76 mm[Hg] Lokesh Mcqueen [facility] 10-05-2024 11:45-0500 Mean blood pressure 102 mm[Hg] Lokesh Mcqueen [facility] 10-05-2024 11:45-0500 Systolic blood pressure 153 mm[Hg] Lokesh Mcqueen [facility] 10-05-2024 11:35-0500 Blood Pressure Location Lokesh Mcqueen [facility] 10-05-2024 11:35-0500 Diastolic blood pressure 84 mm[Hg] Lokesh Mcqueen [facility] 10-05-2024 11:35-0500 Heart rate 62 /min Lokesh Mcqueen [facility] 10-05-2024 11:35-0500 Respiratory rate 18 /min Lokesh Mcqueen [facility] 10-05-2024 11:35-0500 SaO2% (BldA) [Mass fraction] 98 % Lokesh Mcqueen [facility] 10-05-2024 11:35-0500 Systolic blood pressure 156 mm[Hg] Lokesh Mcqueen [facility] 08-19-2024 13:49-0400 Heart rate 68 /min SAM [facility] 08-19-2024 13:49-0400 SaO2% (BldA) [Mass fraction] 98 % [facility] 08-19-2024 13:49-0400 Blood Pressure Location SAM [facility] 08-19-2024 13:49-0400 Diastolic blood pressure 77 mm[Hg] SAM [facility] 08-19-2024 13:49-0400 Mean blood pressure 97 mm[Hg] SAM [facility] 08-19-2024 13:49-0400 Systolic blood pressure 136 mm[Hg] SAM [facility] 08-19-2024 13:48-0400 Respiratory rate 18 /min [facility] 08-19-2024 12:16-0400 Heart rate 52 /min [facility] 08-19-2024 12:16-0400 SaO2% (BldA) [Mass fraction] 100 % [facility] 08-19-2024 12:16-0400 Blood Pressure Location SAM [facility] 08-19-2024 12:16-0400 Diastolic blood pressure 63 mm[Hg] [facility] 08-19-2024 12:16-0400 Mean blood pressure 81 mm[Hg] [facility] 08-19-2024 12:16-0400 Systolic blood pressure 117 mm[Hg] [facility] 08-19-2024 12:15-0400 Respiratory rate 18 /min [facility] 08-19-2024 09:55-0400 Heart rate 50 /min [facility] 08-19-2024 09:55-0400 SaO2% (BldA) [Mass fraction] 98 % [facility] 08-19-2024 09:55-0400 Diastolic blood pressure 68 mm[Hg] [facility] 08-19-2024 09:55-0400 Mean blood pressure 81 mm[Hg] [facility] 08-19-2024 09:55-0400 Systolic blood pressure 106 mm[Hg] [facility] 08-19-2024 09:54-0400 Respiratory rate 18 /min [facility] 08-19-2024 08:04-0400 Body temperature 97.52 [degF] [facility] 08-19-2024 08:03-0400 Blood Pressure Location [facility] 08-11-2024 10:49-0400 Body height 152.4 cm Sydnie Villalobos DPM Work Phone: [facility] 08-11-2024 10:49-0400 Body mass index (BMI) [Ratio] 30.86 kg/m2 Sydnie Villalobos DPM Work Phone: [facility] 08-11-2024 10:49-0400 Body weight 71.67 kg Sydnie Villalobos DPM Work Phone: [facility] 07-13-2024 15:01-0400 Blood Pressure Location Willie Kaur [facility] 07-13-2024 15:01-0400 Diastolic blood pressure 82 mm[Hg] Willie Kaur [facility] 07-13-2024 15:01-0400 Heart rate 68 /min Willie Kaur [facility] 07-13-2024 15:01-0400 Respiratory rate 18 /min Willie Kaur [facility] 07-13-2024 15:01-0400 SaO2% (BldA) [Mass fraction] 98 % Willie Kaur [facility] 07-13-2024 15:01-0400 Systolic blood pressure 137 mm[Hg] Willie Kaur [facility] 07-06-2024 14:55-0400 Diastolic blood pressure 82 mm[Hg] Claudio Monroe [facility] 07-06-2024 14:55-0400 Heart rate 66 /min Claudio Monroe [facility] 07-06-2024 14:55-0400 Mean blood pressure 103 mm[Hg] Claudio Monroe [facility] 07-06-2024 14:55-0400 Respiratory rate 14 /min Claudio Monroe [facility] 07-06-2024 14:55-0400 Systolic blood pressure 144 mm[Hg] Claudio Monroe [facility] 05-08-2024 09:00-0400 Diastolic blood pressure 63 mm[Hg] Nelson Solares [facility] 05-08-2024 09:00-0400 Heart rate 55 /min Nelson Solares [facility] 05-08-2024 09:00-0400 Mean blood pressure 78 mm[Hg] Nelson Solares [facility] 05-08-2024 09:00-0400 SaO2% (BldA) [Mass fraction] 99 % Nelson Solares [facility] 05-08-2024 09:00-0400 Systolic blood pressure 108 mm[Hg] Nelson Beck [facility] 05-08-2024 08:26-0400 Diastolic blood pressure 77 mm[Hg] Nelson Solares [facility] 05-08-2024 08:26-0400 Heart rate 58 /min Nelson Solares [facility] 05-08-2024 08:26-0400 Mean blood pressure 105 mm[Hg] Nelson Solares [facility] 05-08-2024 08:26-0400 Respiratory rate 15 /min Nelson Solares [facility] 05-08-2024 08:26-0400 SaO2% (BldA) [Mass fraction] 98 % Nelson Solares [facility] 05-08-2024 08:26-0400 Systolic blood pressure 161 mm[Hg] Nelson Solares [facility] 05-08-2024 07:19-0400 Body temperature 98.42 [degF] Nelson Solares [facility] 05-08-2024 07:19-0400 Diastolic blood pressure 82 mm[Hg] Nelson Solares [facility] 05-08-2024 07:19-0400 Heart rate 64 /min Nelson Solares [facility] 05-08-2024 07:19-0400 Respiratory rate 16 /min Nelson Solares [facility] 05-08-2024 07:19-0400 SaO2% (BldA) [Mass fraction] 100 % Nelson Solares [facility] 05-08-2024 07:19-0400 Systolic blood pressure 163 mm[Hg] Nelson Solares [facility] 12-18-2023 13:32-0500 Blood Pressure Location Willie Kaur [facility] 12-18-2023 13:32-0500 Diastolic blood pressure 70 mm[Hg] Willie Kaur [facility] 12-18-2023 13:32-0500 Heart rate 60 /min Willie Kaur [facility] 03-01-2024 13:32-0500 SaO2% (BldA) [Mass fraction] 99 % Willie Kaur [facility] 12-18-2023 13:32-0500 Systolic blood pressure 110 mm[Hg] Willie Kaur [facility] 11-25-2023 09:00-0500 Body height 152.4 cm Antionette Yang PA Work Phone: [facility] 11-25-2023 09:00-0500 Body mass index (BMI) [Ratio] 33.22 kg/m2 Antionette Barnes PA Work Phone: [facility] 11-25-2023 09:00-0500 Body weight 77.17 kg Antionette Trey PA Work Phone: [facility] 11-25-2023 09:00-0500 Diastolic blood pressure 84 mm[Hg] Antionette Yang PA Work Phone: [facility] 11-25-2023 09:00-0500 Systolic blood pressure 120 mm[Hg] Antionette Yang PA Work Phone: [facility] 11-20-2023 13:11-0500 Diastolic blood pressure 81 mm[Hg] [...] Health 10-26-2023 12:48-0500 Heart rate 66 /min Vickyjayden Castillo [facility] 10-26-2023 12:48-0500 Mean blood pressure 106 mm[Hg] Vickyjayden Castillo [facility] 10-26-2023 12:48-0500 Respiratory rate 20 /min Vickyjayden Castillo [facility] 10-26-2023 12:48-0500 Systolic blood pressure 143 mm[Hg] Vicky Castillo [facility] 10-07-2023 09:52-0500 Heart rate 68 /min Claudio Monroe [facility] 10-07-2023 09:52-0500 SaO2% (BldA) [Mass fraction] 100 % Claudio Monroe [facility] 10-07-2023 09:52-0500 Diastolic blood pressure 95 mm[Hg] Claudio Monroe [facility] 10-07-2023 09:52-0500 Mean blood pressure 113 mm[Hg] Claudio Monroe [facility] 10-07-2023 09:52-0500 Systolic blood pressure 148 mm[Hg] Claudio Monroe [facility] 10-07-2023 09:52-0500 Respiratory rate 16 /min Claudio Monroe [facility] 10-07-2023 09:45-0500 Diastolic blood pressure 94 mm[Hg] Claudio Monroe [facility] 10-07-2023 09:45-0500 Heart rate 88 /min Claudio Monroe [facility] 10-07-2023 09:45-0500 SaO2% (BldA) [Mass fraction] 100 % Claudio Monroe [facility] 10-07-2023 09:45-0500 Systolic blood pressure 178 mm[Hg] Claudio Monroe [facility] 10-07-2023 09:03-0500 Heart rate 65 /min Claudio Monroe [facility] 10-07-2023 09:03-0500 SaO2% (BldA) [Mass fraction] 98 % Claudio Monroe [facility] 10-07-2023 09:03-0500 Body temperature 97.52 [degF] Snyder Fer [facility] 10-07-2023 09:03-0500 Diastolic blood pressure 83 mm[Hg] Claudio Fer [facility] 10-07-2023 09:03-0500 Mean blood pressure [...] Mean blood pressure 105 mm[Hg] Demar Pradoner [facility] 09-22-2023 11:23-0500 Respiratory rate 14 [...] Health 06-30-2023 15:05-0400 Blood Pressure Location Landon DOUGALS [facility] 06-30-2023 15:05-0400 Diastolic blood pressure [...] Diastolic blood pressure 87 mm[Hg] Vicky LAST [facility] 04-28-2023 09:05-0400 Mean blood pressure 111 mm[Hg] Vickyjayden MCDOWELLG [facility] 04-28-2023 09:05-0400 Systolic blood pressure 160 mm[Hg] Vickyjayden MCDOWELLG [facility] 04-28-2023 08:55-0400 Blood Pressure Location Vickyjayden MCDOWELLG [facility] 04-28-2023 08:55-0400 Diastolic blood pressure 88 mm[Hg] Vicky LAST [facility] 04-28-2023 08:55-0400 Heart rate [...] (BldA) [Mass fraction] 94 % Michael ROLANDL [facility] 04-03-2023 10:25-0400 Systolic blood pressure 102 mm[Hg] NILL [facility] 04-03-2023 10:20-0400 Blood Pressure Location NILL [facility] 04-03-2023 10:15-0400 Blood Pressure Location NILL [facility] 04-03-2023 10:15-0400 Body temperature 96.8 [degF] NILL [facility] 04-03-2023 09:47-0400 Respiratory rate 18 /min Michael ROLANDL [facility] 04-03-2023 09:24-0400 Blood Pressure Location NILL [facility] 04-03-2023 09:24-0400 Body temperature 96.8 [degF] Michael ROLANDL [facility] 03-17-2023 11:37-0400 Heart rate 78 /min Demar Valeri [facility] 03-17-2023 11:37-0400 SaO2% (BldA) [Mass fraction] 98 % Demar Valeri [facility] 03-17-2023 11:37-0400 Diastolic blood pressure 63 mm[Hg] Demar Pradoner [facility] 03-17-2023 11:37-0400 Mean blood pressure 87 mm[Hg] Demar Pradoner [facility] 03-17-2023 11:37-0400 Systolic blood pressure [...] Health 02-20-2023 13:22-0400 Blood Pressure Location NILL [facility] 02-20-2023 13:22-0400 Diastolic blood pressure 84 mm[Hg] NILL [facility] 02-20-2023 13:22-0400 Heart rate 72 /min NILL [facility] 02-20-2023 13:22-0400 Respiratory rate 16 /min NILL [facility] 02-20-2023 13:22-0400 Systolic blood pressure 122 mm[Hg] NILL [facility] 04-29-2022 09:28-0400 Blood Pressure Location Vicky JULYG [facility] 04-29-2022 09:28-0400 Diastolic blood pressure 71 mm[Hg] Vicky STANG [facility] 04-29-2022 09:28-0400 Heart rate 73 /min Vicky STANG [facility] 04-29-2022 09:28-0400 Respiratory rate 18 /min Vicky LAST [facility] 04-29-2022 09:28-0400 SaO2% (BldA) [Mass fraction] 99 % Vicky LAST [facility] 04-29-2022 09:28-0400 Systolic blood pressure 106 mm[Hg] Vicky LAST [facility] Encounters Encounter Date Encounter Type Care Provider Facility Start: 04-18-2025 End: 04-18-2025 Bamboo flowsheet Kenny Harrison 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 [facility] Start: 04-18-2025 End: 04-18-2025 Bamboo flowsheet Kenny Harrison 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 [facility] Start: 04-18-2025 End: 04-18-2025 ambulatory Kenny Harrison 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 [facility] Comment on above: Other spondylosis wi th myelopathy, lumbar region (Primary Dx) Start: 04-14-2025 End: 04-14-2025 Bamboo flowsheet Kenny Harrison 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 [facility] Start: 04-14-2025 End: 04-14-2025 Bamboo flowsheet 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 Bangura 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 [facility] Start: 04-14-2025 End: 04-14-2025 ambulatory Kenny Harrison 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 [facility] Comment on above: Other spondylosis wi th myelopathy, lumbar region (Primary Dx) Start: 04-12-2025 End: 04-12-2025 ambulatory Kenny Harrison 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 [facility] Comment on above: Other spondylosis wi th myelopathy, lumbar region (Primary Dx) Start: 04-10-2025 End: 04-10-2025 Bamboo flowsheet Kenny Harrison 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 [facility] Start: 04-10-2025 End: 04-10-2025 Bamboo flowsheet Kenny Harrison 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 [facility] Start: 04-10-2025 End: 04-10-2025 ambulatory Kenny Harrison 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 [facility] Comment on above: Other spondylosis wi th myelopathy, lumbar region (Primary Dx) Start: 04-07-2025 End: 04-07-2025 Bamboo flowsheet Yarelis Brink 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 [facility] Start: 04-07-2025 End: 04-07-2025 Bamboo flowsheet Yarelis Brink 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 [facility] Start: 04-07-2025 End: 04-07-2025 ambulatory Yarelis Brink 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 [facility] Comment on above: Other [...] 03-31-2025 End: 03-31-2025 Bamboo flowsheet Yarelis Brink 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 [facility] Start: 03-31-2025 End: 03-31-2025 Bamboo flowsheet Yarelis Brink 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 [facility] Start: 03-31-2025 End: 03-31-2025 ambulatory Yarelis Brink 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 [facility] Comment on above: Other [...] 03-24-2025 End: 03-24-2025 Bamboo flowsheet Kenny Bangura 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 [facility] Start: 03-24-2025 End: 03-24-2025 Bamboo flowsheet Kenny Bangura 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 [facility] Start: 03-24-2025 End: 03-24-2025 ambulatory Kenny Bangura 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 [facility] Comment on above: Other spondylosis wi th myelopathy, lumbar region (Primary Dx) Start: 03-22-2025 End: 03-22-2025 Bamboo flowsheet Kennytangela Bangura 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 [facility] Start: 03-22-2025 End: 03-22-2025 Bamboo flowsheet Kenny Bangura 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 [facility] Start: 03-22-2025 End: 03-22-2025 ambulatory Kenny Bangura 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 [facility] Comment on above: Other spondylosis wi th myelopathy, lumbar region (Primary Dx) Start: 03-20-2025 End: 03-20-2025 Bamboo flowsheet Kennytangela Bangura 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 [facility] Start: 03-20-2025 End: 03-20-2025 Bamboo flowsheet Kennytangela Bangura 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 [facility] Start: 03-20-2025 End: 03-20-2025 ambulatory Kenny Bangura 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 [facility] Comment on above: Other spondylosis wi th myelopathy, lumbar region (Primary Dx) Start: 03-17-2025 End: 03-17-2025 Bamboo flowsheet Kenny Bangura 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 [facility] Start: 03-17-2025 End: 03-17-2025 Bamboo flowsheet Kneny Bangura 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 [facility] Start: 03-17-2025 End: 03-17-2025 ambulatory Kenny Bangura 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 [facility] Comment on above: Other spondylosis wi th myelopathy, lumbar region (Primary Dx) Start: 03-14-2025 End: 03-14-2025 ambulatory Kenny Bangura 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 [facility] Comment on above: Other spondylosis wi th myelopathy, lumbar region (Primary Dx) Start: 03-14-2025 End: 03-14-2025 Bamboo flowsheet Kenny Bangura 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 [facility] Start: 03-14-2025 End: 03-14-2025 Bamboo flowsheet Kenny Bangura 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 [facility] Start: 03-10-2025 End: 03-10-2025 ambulatory SOFI PAULA Not Available Start: 01-23-2025 End: 01-23-2025 ambulatory MD Radu Kurtz [facility] Start: 01-23-2025 End: 01-23-2025 Patient encounter procedure Baldomero Hurtado [facility] Start: 01-17-2025 End: 01-17-2025 Patient encounter procedure Vick Mcghee MD Work Phone: [facility] [address] Work Phone: Start: 01-17-2025 End: 01-17-2025 ambulatory Vick Mcghee MD Work Phone: [facility] Work Phone: Start: 01-12-2025 End: 01-14-2025 Pre-admission assessment Lokesh Mcqueen [facility] Start: 12-21-2024 End: 12-21-2024 ambulatory ANTIONETTE YANG Not Available Start: 12-19-2024 End: 12-19-2024 ambulatory Lokesh Mcqueen Facility:[facility] Start: 12-19-2024 End: 12-19-2024 Patient encounter procedure Lokesh Mcqueen [facility] Start: 12-14-2024 End: 12-14-2024 Clinisync Result Encounter [...] Patient encounter procedure Antionette LOPEZ Work Phone: [facility] Start: 11-28-2024 End: 11-28-2024 Periodic preventive med est patient 65yrs& older Antionette LOPEZ Work Phone: [facility] Comment on above: Well woman exam with routine gynecological exam; Osteoporosis, post-menopausal (CMS/HCC); Breast cancer screening by mammogram; Pelvic pain in female Start: 11-28-2024 End: 11-28-2024 ambulatory ANTIONETTE YANG Not Available Start: 11-15-2024 End: 11-16-2024 ambulatory Qinganefo OJUKWU Facility:[facility] Start: 11-15-2024 Emergency department patient visit Darshan Laughlin Facility:[facility] Start: 10-05-2024 End: 10-05-2024 ambulatory XXXX NONE Facility:[facility] Start: 10-05-2024 End: 10-05-2024 Patient encounter procedure Lokesh Mcqueen [facility] Start: 09-02-2024 End: 09-02-2024 ambulatory Vick Mcghee MD Work Phone: [facility] Work Phone: Start: 09-02-2024 End: 09-02-2024 Departed Referred Vick Mcghee MD Work Phone: [facility] Start: 08-19-2024 End: 08-19-2024 ambulatory SAM [facility] Facility:[facility] Start: 08-19-2024 End: 08-19-2024 Patient encounter procedure SAM [facility] Start: 08-11-2024 End: 08-11-2024 Bamboo flowsheet Sydnie Villalobos DPM Work Phone: [facility] Start: 08-11-2024 End: 08-11-2024 Bamboo flowsheet Sydnie Villalobos DPM Work Phone: [facility] Start: 08-11-2024 End: 08-11-2024 Office outpatient visit 15 minutes Sydnie Villalobos DPM Work Phone: 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 Start: 08-11-2024 End: 08-11-2024 ambulatory SYDNIE VILLALOBOS Not Available Start: 08-11-2024 ambulatory [facility] Ambulatory [facility] Start: 07-13-2024 End: 07-13-2024 ambulatory Willie Kaur Facility:[facility] Start: 07-13-2024 End: 07-13-2024 Patient encounter procedure Willie Kaur [facility] Start: 07-06-2024 End: 07-06-2024 ambulatory Claudio Monroe Facility:[facility] Start: 07-06-2024 End: 07-06-2024 Patient encounter procedure Claudio Monroe [facility] Start: 07-06-2024 End: 07-06-2024 ambulatory Vick Mcghee Facility:[facility] Start: 07-06-2024 End: 07-06-2024 Patient encounter procedure Claudio Monroe [facility] Start: 05-08-2024 End: 05-08-2024 Emergency department patient visit Nelson Solares [facility] Start: 12-18-2023 End: 12-18-2023 ambulatory Willie Kaur Facility:[facility] Start: 12-18-2023 End: 12-18-2023 Patient encounter procedure Willie Kaur [facility] Start: 12-02-2023 Clinisync Result Encounter Antionette LOPEZ [...] Start: 11-20-2023 End: 11-20-2023 ambulatory FRANCO Castillo Facility:[facility] Start: 11-20-2023 End: 11-20-2023 Pain Management Vicky Castillo [facility] Start: 11-17-2023 End: 11-17-2023 ambulatory Landon DOUGLAS Facility:[facility] Start: 11-17-2023 End: 11-17-2023 Patient encounter procedure Landon DOUGLAS [facility] Start: 10-26-2023 End: 10-26-2023 Patient encounter procedure Vicky Castillo [facility] Start: 10-26-2023 End: 10-26-2023 ambulatory Vicky Castillo Facility:[facility] Start: 10-26-2023 End: 10-26-2023 Pain Management Vicky Castillo [facility] Start: 10-07-2023 End: 10-07-2023 ambulatory Claudio Monroe Facility:[facility] Start: 10-07-2023 End: 10-07-2023 Pain Management Claudio Monroe [facility] Start: 09-22-2023 End: 09-22-2023 ambulatory Demar Trammell Facility:[facility] Start: 09-22-2023 End: 09-22-2023 Pain Management Demar Trammell [facility] Start: 08-06-2023 End: 08-06-2023 ambulatory Barry Husain Facility:[facility] Start: 08-06-2023 End: 08-06-2023 Patient encounter procedure Barry Husain [facility] Start: 07-23-2023 End: 07-23-2023 ambulatory Barry Husain Facility:[facility] Start: 07-14-2023 End: 07-14-2023 Hypertension screening status Vicky LAST [facility] Start: 07-14-2023 End: 07-14-2023 Patient encounter procedure Vicky LAST [facility] Start: 06-30-2023 End: 06-30-2023 Patient encounter procedure Landon DOUGLAS [facility] Start: 06-08-2023 End: 06-08-2023 Pain Management Vicky Castillo [facility] Start: 06-05-2023 End: 06-05-2023 Emergency department patient visit Prasad Avalos [facility] Start: 05-04-2023 End: 05-04-2023 Pain Management Vicky Castillo [facility] Start: 04-28-2023 End: 04-28-2023 Patient encounter procedure Vicky LAST [facility] Start: 04-20-2023 End: 04-20-2023 Pain Management Demar Mel Valeri [facility] Start: 04-15-2023 End: 04-15-2023 Patient encounter procedure R NILL [facility]ill[facility] Start: 04-03-2023 End: 04-03-2023 Patient encounter procedure R NILL [facility] Start: 03-17-2023 End: 03-17-2023 Pain Management Demar Trammell [facility] Start: 03-03-2023 End: 03-04-[address] VICK MCGHEE . Facility:[facility] Start: 02-23-2023 End: 02-23-2023 Pain Management Demar Pradoner [facility] Start: 02-20-2023 End: 02-20-2023 Patient encounter procedure Michael Billingsley NILL General Surgery Nill/[facility] Start: 02-09-2023 End: 02-10-[address] VICK MCGHEE . Facility:[facility] Start: 11-05-2022 End: 11-05-[address] VICK MCGHEE . Facility:[facility] Start: 10-27-2022 End: 10-27-2022 Patient encounter procedure Vicky Priyank LAST [facility] Start: 10-22-2022 End: 10-23-[address] JUAN CARLOS NARVAEZ . Facility:[facility] Start: 09-24-2022 End: 09-24-[address] JUAN CARLOS NARVAEZ . Facility:[facility] Start: 04-29-2022 End: 04-29-2022 Patient encounter procedure Vicky LAST [facility] Start: 12-05-2017 End: 04-15-2018 Ambulatory Adryan Yoon Facility:[facility] Procedures Date Procedure Procedure Detail Performing Clinician [...] Start: 11-30-2023 [facility] CMP (CMP) (FOR REMOTE [facility] USE) Antionette LOPEZ Work Phone: Start: 11-30-2023 [...] Screening for malign ant neoplasm of colon [facility] Start: 12-14-2025 Screening for malign ant neoplasm of breast Mammogram [facility] Start: 12-04-2025 End: 12-04-2025 Patient encounter procedure 12/04/2025 10:00 AM EST Office Visit [facility] [address] [address] Antionette Yang PA [address] [place] [address] [facility] Start: 06-19-2025 Influenza vaccination [facility] Start: 05-02-2025 End: 05-02-2025 ambulatory 05/02/2025 9:30 AM EDT Treatment [facility] [address] [facility] [address] [place] [address] Kenny Bangura, 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 [facility] Start: 04-26-2025 End: 04-26-2025 ambulatory 04/26/2025 9:00 AM EDT Treatment [facility] [address] [facility] [address] [place] [address] Kenny Bangura, 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 [facility] Start: 04-25-2025 End: 04-25-2025 ambulatory 04/25/2025 9:30 AM EDT Treatment [facility] [address] [facility] [address] [place] [address] Sofi Pyle, PT [facility] Start: 04-18-2025 End: 04-18-2025 ambulatory [facility] Start: 04-14-2025 End: 04-14-2025 ambulatory [facility] Start: 04-12-2025 End: 04-12-2025 ambulatory [facility] Start: 04-10-2025 End: 04-10-2025 ambulatory 04/10/2025 8:30 AM EDT Treatment [facility] [address] [facility] [address] [place] [address] Kenny Bangura, 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 [facility] Start: 04-07-2025 End: 04-07-2025 ambulatory [facility] Start: 04-05-2025 End: 04-05-2025 ambulatory 04/05/2025 11:00 AM EDT Treatment [facility] [address] [facility] [address] [place] [address] Sofi Pyle, PT [facility] Start: 04-03-2025 End: 04-03-2025 ambulatory 04/03/2025 2:00 PM EDT Treatment [facility] [address] [facility] [address] [place] [address] Sofi Pyle, PT [facility] Start: 03-31-2025 End: 03-31-2025 ambulatory [facility] Start: 03-29-2025 End: 03-29-2025 ambulatory 03/29/2025 11:00 AM EDT Treatment [facility] [address] [facility] [address] [place] [address] Sofi Pyle, PT [facility] Start: 03-27-2025 End: 03-27-2025 ambulatory 03/27/2025 12:00 PM EDT Treatment [facility] [address] [facility] [address] [place] [address] Sofi Pyle, PT [facility] Start: 03-24-2025 End: 03-24-2025 ambulatory 03/24/2025 12:00 PM EDT Treatment [facility] [address] [facility] [address] [place] [address] Kenny Bangura, 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 [facility] Start: 03-22-2025 End: 03-22-2025 ambulatory 03/22/2025 12:00 PM EDT Treatment [facility] [address] [facility] [address] [place] [address] Kenny Bangura, 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 [facility] Start: 03-20-2025 End: 03-20-2025 ambulatory [facility] Comment on above: Arrived Start: 03-17-2025 End: 03-17-2025 ambulatory [facility] Comment on above: Arrived Start: 03-14-2025 End: 03-14-2025 ambulatory 03/14/2025 3:00 PM EDT Treatment [facility] [address] [facility] [address] [place] [address] Kenny Bangura, 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 Arrived [facility] Comment on above: Arrived Start: 01-17-2025 Aldolase measurement [facility] Start: 01-17-2025 Antibody to Scl-70 measurement [facility] Start: 01-17-2025 Hemolytic complement CH50 level [facility] Start: 01-17-2025 DIPLOMATIC INTERPRETER/TRANSLATOR antibody measurement [facility] Start: 01-17-2025 [facility] Start: 12-21-2024 End: 12-21-2024 Professional / ancillary services management 12/21/2024 9:30 AM EST Ancillary Procedure [facility] [address] [id number] [facility] Start: 11-30-2024 Screening for malign ant neoplasm of breast Mammogram [facility] Start: 11-28-2024 End: 11-28-2025 DXA Skeletal system Views for bone density DEXA bone density Imaging Routine Osteoporosis, post-menopausal ([facility]) Expected: 11/28/2024 (Approximate), Expires: 11/28/2025 [facility] Comment on above: Expected: 11/28/2024 (Approximate), Expires: 11/28/2025 Start: 11-28-2024 End: 01-26-2026 MG Breast - bilateral Screening Bilateral screening mammogram Imaging Routine Breast cancer screening by mammogram Expected: 11/28/2024 (Approximate), Expires: 01/26/2026 [facility] Work Phone: Comment on above: Expected: 11/28/2024 (Approximate), Expires: 01/26/2026 Start: 11-28-2024 End: 11-28-2025 US Pelvis US pelvis Imaging Routine Pelvic pain in female Expected: 11/28/2024 (Approximate), Expires: 11/28/2025 [facility] Comment on above: Expected: 11/28/2024 (Approximate), Expires: 11/28/2025 Start: 11-28-2024 End: 11-28-2024 Patient encounter procedure [facility] Comment on above: Arrived Start: 08-11-2024 End: 08-11-2024 Patient encounter procedure 08/11/2024 11:00 AM EDT Office Visit [facility] [address] [place] [phone] Sydnie Villalobos, DPM [address] [place] [address] [facility] Comment on above: Arrived Start: 06-19-2024 Influenza vaccination Influenza Vacc ine (#1) [facility] Start: 11-25-2023 End: 11-25-2024 Lipid 1996 panel - Serum or Plasma Lipid panel Lab Routine Well woman exam with routine gynecological exam Well woman exam Expected: 11/25/2023 (Approximate), Expires: 11/25/2024 [facility] Comment on above: Expected: 11/25/2023 (Approximate), Expires: 11/25/2024 Start: 11-25-2023 End: 01-23-2025 MG Breast - bilateral Screening Bilateral screening mammogram Imaging Routine Breast cancer screening by mammogram Expected: 11/25/2023, Expires: 01/23/2025 [facility] Work Phone: Comment on above: Expected: 11/25/2023 , Expires: 01/23/2025 Start: 10-22-2023 Screening for malign ant neoplasm of breast Mammogram [facility] Start: 06-19-2023 Influenza vaccination Influenza Vacc ine (#1) [facility] Start: 2022 Pneumococcal Vaccine : 65+ Years (1 - PCV) Pneumococcal Vaccine: 65+ Years (1 - PCV) [facility] Start: 2022 Pneumococcal Vaccine : 65+ Years (1 of 1 - PCV) Pneumococcal Vaccine: 65+ Years (1 of 1 - PCV) [facility] Start: 2007 Pneumococcal Vaccine : 65+ Years (1 of 1 - PCV) Pneumococcal Vaccine: 65+ Years (1 of 1 - PCV) [facility] Start: 1957 Screening for malign ant neoplasm of colon [facility] Adenosine monophosphate.cyclic [Moles/volume] in Serum or Plasma [facility] Beta 2 glycoprotein 1 IgG Ab [Units/volume] in Serum [facility] Beta 2 glycoprotein 1 IgM Ab [Units/volume] in Serum [facility] Cardiolipin IgA Ab [Units/volume] in Serum by Immunoassay [facility] Cardiolipin IgG Ab [Units/volume] in Serum by Immunoassay [facility] Cardiolipin IgM Ab [Units/volume] in Serum by Immunoassay [facility] CBC W Auto Different ial panel - Blood CBC and differential Lab Routine Well woman exam with routine gynecological exam Well woman exam Ordered: 11/25/2023 [facility] Comment on above: Ordered: 11/25/2023 Centromere protein B Ab [Units/volume] in Serum [facility] Chromatin Ab [Units/volume] in Serum or Plasma [facility] Complement C3 [Mass/volume] in Serum or Plasma [facility] Complement C4 [Mass/volume] in Serum or Plasma [facility] Comprehensive metabo lic 2000 panel - Serum or Plasma Comprehensive metabolic panel Lab Routine Well woman exam with routine gynecological exam Well woman exam Ordered: 11/25/2023 [facility] Comment on above: Ordered: 11/25/2023 Hemoglobin A1c measurement Hemoglobin A1c Lab Routine Well woman exam with routine gynecological exam Well woman exam Ordered: 11/25/2023 [facility] Comment on above: Ordered: 11/25/2023 Histone IgG Ab [Units/volume] in Serum by Immunoassay [facility] Homogenous nuclear A b pattern [Titer] in Serum [facility] Chio-1 extractable nuc lear Ab [Units/volume] in Serum [facility] Lupus anticoagulant [Interpretation] in Platelet poor plasma [facility] Nuclear Ab [Titer] i n Serum [facility] Reagin Ab [Presence] in Serum by RPR [facility] Rheumatoid factor [Units/volume] in Serum or Plasma [facility] Sjogrens syndrome-A extractable nuclear Ab [Units/volume] in Serum [facility] Sjogrens syndrome-B extractable nuclear Ab [Units/volume] in Serum [facility] Anders extractable nu clear Ab [Units/volume] in Serum [facility] THIN PREP TIS PAP AN D HR HPV DNA THIN PREP TIS PAP AND HR HPV DNA Pathology and Cytology Routine Well woman exam with routine gynecological exam Ordered: 11/25/2023 [facility] Comment on above: Ordered: 11/25/2023 THIN PREP TIS PAP AN D HR HPV DNA THIN PREP TIS PAP AND HR HPV DNA Pathology and Cytology Routine Well woman exam with routine gynecological exam Ordered: 11/28/2024 [facility] Comment on above: Ordered: 11/28/[address] [facility] Thyroglobulin Ab [Units/volume] in Serum or Plasma [facility] Thyroperoxidase Ab [Units/volume] in Serum or Plasma [facility] Thyrotropin [Units/volume] in Serum or Plasma TSH Lab Routine Well woman exam with routine gynecological exam Well woman exam Ordered: 11/25/2023 [facility] Comment on above: Ordered: 11/25/2023 Immunizations Immunization Date Immunization Notes Care Provider Geovanna sommer 07-23-2021 SARS-CoV-2 (COVID-19 ) mRNA BNT-162b2 vax [facility] 07-02-2021 SARS-CoV-2 (COVID-19 ) mRNA BNT-162b2 vax [facility] 02-22-2021 zoster vaccine recombinant Antionette LOPEZ Work Phone: [facility] 11-12-2020 zoster vaccine recombinant Antionette Yang PA Work Phone: [facility] NEGATED: Highlighted row has not occurred!12-25-2021 influenza virus [facility], [facility] NEGATED: Highlighted row has not occurred!10-16-2021 influenza virus vaccine, unspecified formulation [facility] Payers Date Payer Category Payer Self-pay 2022 Private Health Insurance [employer] [place] [id number] 2022 Unknown [id number] [id number]. [id number] 2022 Medicare [id number]. [id number]. [id number] 2017 Unknown [id number] 1959 Medicare [id number] 1959 Unknown [id number] 1957 Unknown [id number] 2.16.840.1.083435.3.579.2. 593 1957 Unknown [id number] 2.16.840.1.732655.3.579.2. 59 1957 Unknown [id number] 2.16.840.1.856549.3.579.2. 593 1957 Unknown [id number] 2.16.840.1.863847.3.579.2. 59 1957 Unknown [id number] 2.16.840.1.062834.3.579.2. 593 1957 Unknown [id number] 2.16.840.1.508183.3.579.2. 727 1957 Unknown [id number] 2.16.840.1.475491.3.579.2. 727 1957 Unknown [id number] 2.16.840.1.979328.3.579.2. 727 1957 Unknown [id number] 2.16.840.1.285438.3.579.2. 727 1957 Unknown [id number] 2.16.840.1.049544.3.579.2. 727 1957 Unknown [id number] 2.16.840.1.570472.3.579.2. 727 1957 Unknown [id number] 2.16.840.1.154558.3.579.2. 72 1957 Unknown [id number] 2.16.840.1.668692.3.579.2. 727 1957 Unknown [id number] 2.16.840.1.672577.3.579.2. 72 1957 Unknown [id number] 2.16.840.1.813138.3.579.2. 72 1957 Unknown [id number] 2.16.840.1.122860.3.579.2 1957 Unknown [id number] 2.16.840.1.264391.3.579.2. 72 1957 Unknown [id number] 2.16.840.1.922386.3.579.2. 1286 1957 Unknown [id number] 2.16.840.1.455432.3.579.2 72 1957 Unknown [id number] 2.16.840.1.300387.3.579.2 1957 Unknown [id number] 2.16.840.1.706605.3.579.2 1957 Unknown [id number] 2.16.840.1.314405.3.579.2 1957 Unknown [id number] 2.16.840.1.707278.3.579.2 1957 Unknown [id number] 2.16.840.1.848678.3.579.2 1957 Unknown [id number] 2.16.840.1.032775.3.579.2 1957 Unknown [id number] 2.16.840.1.838177.3.579.2 1957 Unknown [id number] 2.16.840.1.421333.3.579.2 1957 Unknown [id number] 2.16.840.1.236939.3.579.2 1957 Unknown [id number] 2.16.840.1.282946.3.579.2 1957 Unknown [id number] 2.16.840.1.921801.3.579.2. 1259 1957 Unknown [id number] 2.16.840.1.539380.3.579.2. 1259 1957 Unknown [id number] 2.16.840.1.703216.3.579.2. 1259 1957 Unknown [id number] 2.16.840.1.628503.3.579.2. 125 1957 Unknown [id number] 2.16.840.1.292765.3.579.2. 125 1957 Unknown [id number] 2.16.840.1.924678.3.579.2. 125 1957 Unknown [id number] 2.16.840.1.477230.3.579.2. 125 1957 Unknown [id number] 2.16.840.1.082566.3.579.2. 125 1957 Unknown [id number] 2.16.840.1.517484.3.579.2. 125 1957 Unknown [id number] 2.16.840.1.480257.3.579.2. 125 1957 Unknown [id number] 2.16.840.1.589846.3.579.2. 125 1957 Unknown [id number] 2.16.840.1.046280.3.579.2. 125 1957 Unknown [id number] 2.16.840.1.702961.3.579.2. 125 1957 Unknown [id number] 2.16.840.1.137803.3.579.2. 125 1957 Unknown [id number] 2.16.840.1.469832.3.579.2. 125 1957 Unknown [id number] 2.16.840.1.405822.3.579.2. 125 1957 Unknown [id number] 2.16.840.1.954238.3.579.2. 1259 1957 Unknown [id number] 2.16.840.1.864973.3.579.2. 1259 1957 Unknown [id number] 2.16.840.1.367135.3.579.2. 1259 Medicaid [id number] Unknown MMO [id number] Unknown Avenel ALFREDO [id number] Unknown [id number] Unknown [id number] Social History Date Type Detail Facility Start: 12-25-2021 End: 05-20-2023 Tobacco smoking status Never smoked tobacco (finding) [facility] Comment on above: Denies. Start: 11-24-2023 End: 08-11-2024 Sex Assigned At Female [facility] Tobacco smoking status Never [facility] Comment on above: Denies. Tobacco [facility] Comment on above: denies Tobacco smoking status [facility] Start: 05-20-2023 Tobacco use and exposure [...] day, monthly or less; Caffeine: 1-2 cups/day [facility] Start: 1955 Sex Assigned At Not on file [facility] Tobacco smoking stat [facility] Unknown if ever smoked [facility] Work Phone: Start: 09-18-2019 End: 09-03-2024 Sex Female (finding) [facility] Start: 1955 Sex Assigned At [facility] Functional Status Date Assessment Result Facility 01-23-2025 Functional Status N/A [facility] 10-05-2024 Functional Status N/A [facility] 08-19-2024 Functional Status N/A [facility] 07-13-2024 Functional Status N/A [facility] 07-06-2024 Functional Status N/A [facility] 05-08-2024 Functional Status N/A [facility] 12-18-2023 Functional Status No [facility] 11-20-2023 Functional Status N/A [facility] 11-17-2023 Functional Status No [facility] 10-26-2023 Functional Status N/A [facility] 10-07-2023 Functional Status N/A [facility] 09-22-2023 Functional Status N/A [facility] 07-14-2023 Functional Status No [facility] 06-30-2023 Functional Status No [facility] 06-08-2023 Functional Status N/A [facility] 06-05-2023 Functional Status N/A [facility] 05-04-2023 Functional Status N/A [facility] 04-28-2023 Functional Status No [facility] 04-20-2023 Functional Status N/A [facility] 04-03-2023 Functional Status N/A [facility] 03-17-2023 Functional Status N/A [facility] 02-23-2023 Functional Status N/A [facility] 02-20-2023 Functional Status N/A [facility] gisselle Thao 04-29-2022 Functional Status N/A [facility] Clinical Notes 10-08-2021 to 04-05-2025 Sofi Pyle, [...] to wear if walking long distances. Precautions: [place] Subjective: Pt states her back is feeling [...] instructed in home exercise program. - met Field Agronomist Goals: To be met in 10 weeks [...] sign below. Date: documented in this encounter [facility] 04-03-2025 History of Present illness Narrative Images [...] to wear if walking long distances. Precautions: [place] Subjective: Pt states her left low back [...] instructed in home exercise program. - met Custodial Goals: To be met in 10 weeks [...] sign below. Date: documented in this encounter [facility] 03-29-2025 History of Present illness Narrative Images [...] to wear if walking long distances. Precautions: [place] Subjective: Pt states her left low back [...] bilateral LE strength. Including Nustep x10 minutes [place] Level 3.5 with HP to low back. [...] to be instructed in home exercise program. Field Agronomist Goals: To be met in 10 weeks [...] sign below. Date: documented in this encounter [facility] 03-27-2025 History of Present illness Narrative Images [...] to wear if walking long distances. Precautions: [place] Subjective: Pt states low back is a little sore today. Was in the car a lot over the weekend and also sitting for grandJourneys's recital yesterday and graduation on Thursday. Will [...] bilateral LE strength. Including Nustep x8 minutes [place] Level 3.5. Therapeutic Activity: Exercises to improve [...] to be instructed in home exercise program. Custodial Goals: To be met in 10 weeks [...] sign below. Date: documented in this encounter [facility] 11-28-2024 History of Present illness Narrative Reason [...] 12/04/2017 [place] REMOVAL OF KIDNEY STONE 2007 REVIEW OF [...] nursing note reviewed. Exam conducted with a buffing machine operator semiautomatic present. Vitals: Estimated body mass index is [...] of: JESSICA Hunt documented in this encounter [facility] 11-23-2024 Note Discharge Summary Admission and Discharge Information Admitting Physician - Jayden Santos DO Consulting Physician - [facility] Cardio, XXXX Bryant CANTRELL, Baldomero Admitting Diagnoses: [...] followup appointment Patient Education Chest Wall Pain, Cnvo-hr-Veto [facility] Comment on above: Result Comment: Elec tronically Signed By: Jayden Santos DO\.br\Date and Time Signed: 11/23/24 08:55 EST 11-16-2024 Note Echocardiology Procedure Exam Date/Time Accession # [id number] Echo Transthoracic 11/16/2024 10:20 EST [id number] Jayden Santos DO Complete CPT code [id number] Reason for Exam (Echo Transthoracic Complete) Chest pain Report [facility] [address] [place] [address] Adult Echocardiogram Report Name: CHLOE AGARWAL Study Date: 11/16/2024 09:40 AM BP: 124/67 mmHg Patient Location: [address] [place] [address] Bed(s) [facility] : 1955 Gender: Female Height: 60 in Age: 69 yrs Ethnicity: [facility] Weight: 165 lb Reason For Study: [...] MD Transcribed by: FABIOLA Technologist: GELY [facility] 11-16-2024 Note Consultation Note Chief Complaint [...] bilateral lower e (more content not included)... [facility] Comment on above: Result Comment: Elec [...] 13:41:00) Lymph Auto: 14.1 % (11/15/24 13:41:00) [place] Auto: 8 % (11/15/24 13:41:00) Eos Auto: 1.2 % (11/15/24 13:41:00) Basophil Auto: 0.9 % (11/15/24 13:41:00) Neutro Absolute: 6.8 E9/L (11/15/24 13:41:00) Lymph Absolute: 1.3 E9/L (11/15/24 13:41:00) [place] Absolute: 0.7 E9/L (11/15/24 13:41:00) Eos Absolute: [...] List/Past Medical History (more content not included)... [facility] Comment on above: Result Comment: Elec [...] bothersome. She has seen her PCP and dye room helper. She understands her water pill may be causing some of the cramping, but she was told she has to stay on it. She is trying to lose weight to improve her BP/HTN and her foot pain. She has tried gabapentin and Requip without improvement. She wears Circadence tennis shoes. She does not currently wear [...] Sydnie Villalobos DPM documented in this encounter [facility] 07-06-2024 Note Consultation Note Patient is presenting [...] with any questions or concerns that arise. [facility] Comment on above: Result Comment: Elec tronically Signed By: Claudio Mornoe DO\.br\Date and Time Signed: 07/06/24 16:52 EDT [...] 08:15:00 AM Scheduled Provider:Claudio Monroe DO Location:.Pain [facility] Appointment Type:Pain Management - Follow Up (FT) [facility] 07-21-2024 Evaluation + Plan noteExtracted from: Title:ED [...] Diagnostic Tests Pending * Urine Culture 05/08/24 [facility]07-21-2024 Hospital Discharge instructions Patient Education 05/08/2024 09:33:58 [...] if you feel dizzy. General instructions Take meqf-jqd-bcpqjyv and prescription medicines only as told by [...] provider. Document Revised: 09/04/2021 Document Reviewed: 09/04/2021 [email or web address] Patient Education 2022 [employer]. 05/08/2024 09:33:58 Urinary Tract Infection, Adult Urinary [...] Treatment for this condition includes: Antibiotic medicine. Bvdh-hdv-nwgjkav medicines to treat discomfort. Drinking enough water [...] Follow these instructions at home: Medicines Take azad-nmo-ogdvwta and prescription medicines only as told by [...] provider. Document Revised: 05/17/2021 Document Reviewed: 05/17/2021 [email or web address] Patient Education 2022 [employer]. Follow Up Care 05/08/2024 07:16:07 With:Vick Mcghee Address: [address] [place] [phone] Business (1) When:05/11/2024 09:31:54 Comments:Call the office [...] you develop any new or worsening symptoms. [facility]07-21-2024 NoteED Patient Education Note Neurology Vertigo Vertigo [...] you feel dizzy. General instructions ? Take upbv-xrg-huyrqud and prescription medicines only as told by [...] provider. Document Revised: 09/04/2021 Document Reviewed: 09/04/2021 [email or web address] Patient Education ? 2022 [employer]. Obstetrics and Gynecology Urinary Tract Infection, Adult [...] have certain medical conditions, (more content not included)...[facility]02-14-2024 Telephone encounter Note* Telephone Encounter - JESSICA Hunt - 12/02/2023 10:41 AM EST Pt notified of wellness lab results and low tsh, t3 and t4 labs ordered for her as well. Pt states she will follow up with her primary care physician, DR Mcghee in next few weeks. She denies any symptoms at this time [id number] Miscellaneous Notes* Telephone Encounter - JESSICA Hunt - 12/02/2023 10:41 AM EST Pt notified of wellness lab results and low tsh, t3 and t4 labs ordered for her as well. Pt states she will follow up with her primary care physician, DR Mcghee in next few weeks. She denies any symptoms at this time [id number] History of Present illness Narrative* JESSICA Hunt - 11/25/2023 9:00 AM EST Reason for Appointment: Patient ID: Chloe Agarwal is a 68 y.o. female who presents for [facility] Visit Patient presents today for Annual [...] nursing note reviewed. Exam conducted with a buffing machine operator semiautomatic present. Vitals: Estimated body mass index is [...] behalf of: JESSICA Hunt documented in this encounterDoctors [facility] [id number] Evaluation + Plan note Extracted from: Title:Pain [...] Date:12/14/2023 10:45:00 AM Scheduled Provider:Barry Husain MD [facility] Type:Pulmonary New Patient (FT) Appointment Date:12/18/2023 01:45:00 PM Scheduled Provider:Willie Kaur MD [facility] [place] Appointment Type:Cardiology Follow Up (FT) [facility]01-08-2024 [...] PM Scheduled Provider:Vicky Castillo PA-C Location:.Pain [facility] Appointment Type:Pain Management - Follow [...] 08:15:00 AM Scheduled Provider:Vicky Castillo PA-C Location:.Pain [facility] Appointment Type:Pain Management - Follow Up (FT) Appointment Date:11/17/2023 11:30:00 AM Scheduled Provider:Landon DOUGLAS MD [facility] Type:Cardiology Follow Up (FT) [facility]12-20-2023 Note [id number] 10-[facility]-2023 NoteDiagnosis: M54.16 Lumbar radiculopathy Procedure: Right [...] to comply to currently prescribed/recommended therapies.[facility] Comment on above:Result Comment: Electronically Signed By: Claudio Monroe DO.br\Date and Time Signed: 10/07/23 09:54 [id number] Evaluation + Plan note Extracted from: Title:FUV [...] day(s), # 30 tab(s), Refills(s) 0, Pharmacy: [id number], 152.4, cm, 06/05/23 8:54:00 EDT, Height/Length [...] AM Scheduled Provider:Vicky Castillo PA-C Location:[facility] [place] Appointment Type:Pain Management - Follow Up (FT) Appointment Date:07/06/2023 11:00:00 AM Scheduled Provider:Landon DOUGLAS MD Location:FT.Cardiology Clinic Appointment Type:Cardiology ED Follow Up (FT) [facility]08-18-2023 Hospital Discharge instructions Follow Up Care 06/05/2023 08:40:51 With:Vick Mcghee Address: [address] [place] [address] Business (1) When:Within 3 Day(s) [facility]07-17-2023 [...] Date:06/08/2023 08:15:00 AM Scheduled Provider:Vicky Castillo PA-C Location:FT.[facility] Appointment Type:Pain Management - Follow Up (FT) [facility]06-16-2023 Evaluation + Plan noteExtracted from: Title:ANES Post-operative Note - General Author: Lb Wu Jr., DO Date:04/03/23 Plan Transfer/Discharge: Transfer/Discharge Discharge when meets criteria ( From PACU to Ambulatory Surgery Unit, and To home ). Extracted from: Title:ANES Pre-operative Note - Endo Author:Lb Melendez Jr., DO Date:04/03/23 Plan [place] Society of Anesthesiologists (ASA) physical status classification: Class III. Anesthetic Preoperative Plan: Anesthesia General, and -TIVA. Future Appointments Appointment Date:04/07/2023 11:00:00 AM Scheduled Provider:Demar Trammell MD Location:FT.[facility] Appointment Type:Pain Management - Follow Up [...] unsweetened, w/added ascorbic acid 1 cup 0.5 [place] 1 cup 0.7 Vegetables Cooked Green beans 1 cup 4.0 Carrots 1/2 cup sliced 2.3 Peas 1 cup 8.8 Potato (baked, with skin) 1 medium potato 3.8 Raw [place] (with peel) 1 cucumber 1.5 Lettuce 1 [...] Peanuts 1/2 cup 7.9 Chart from [facility] 2013. SEEK IMMEDIATE MEDICAL CARE IF: You [...] of Agriculture (USDA) National Nutrient Database at: http://www.Research for Good.usda.gov/fnic/foodcomp/search/ Created using data from the USDA National Nutrient Database for Standard Reference. Available at http://www.Research for Good.usda.gov/fnic/foodcomp/search/. Information adapted from: [facility] Patient Information 2009 Crosswise. [facility] 2012 http://www.HomeZada/contents/lbzufzopacps-nrbersr-bhcyga-the-basics 04/03/2023 10:24:14 Colonoscopy, Care After Surgery Salam [...] reduce GERD symptoms. Medicines. These may include: ?Xabp-kbp-rinzcys antacids. ?Medicines that make your stomach empty [...] may include: ?Fatty foods, like fried foods. ?[place] fruits, like oranges or lemon. ?Other foods [...] Do not drink alcohol. General instructions Take wknh-xgb-msiiaho and prescription medicines only as told by [...] provider. Document Revised: 08/19/2022 Document Reviewed: 09/05/2021 [email or web address] Patient Education 2022 EpiGaN. 04/03/2023 10:24:03 Endoscopy, Care After Procedure [facility] Endoscopy Care After Procedure Please read the instructions outlined below and refer to this sheet in the next few weeks. These discharge instructions provide you with general information on caring for [facility] Your doctor may also give you [...] Document Re-Released: 03/29/2007 ExitCare Patient Information 2009 Crosswise. Follow Up Care 02/23/2023 10:35:27 With:Michael ALBRIGHT Address: [address] [place] [address] [facility] (1) When:2 weeks [facility]05-08-2023 Evaluation + Plan noteExtracted from: Title:NPV Author:Demar [...] Appointments Appointment Date:04/03/2023 10:30:00 AM Scheduled Provider: Location:[facility] Appointment Type:Surgery FT Appointment Date:04/28/2023 09:00:00 AM Scheduled Provider:Vicky LAST CNP Location:FT.Cardiology Clinic Appointment Type:Cardiology Follow Up (FT) [facility]12-21-2021 Hospital Discharge instructions Follow Up Care 10/08/2021 14:10:47 With:Landon Douglas MD Address: [place] [phone] When: Unknown [facility] [...] Appointments Appointment Date:04/03/2023 10:30:00 AM Scheduled Provider: Location:[facility] Appointment Type:Surgery FT Appointment [...] PM Scheduled Provider:Vicky Castillo PA-C Location:[facility] [place] Appointment Type:Pain Management - Follow Up (FT) Appointment Date:12/14/2023 10:45:00 AM Scheduled Provider:Barry Husain MD Location:FT.Pulmonary Clinic Appointment Type:Pulmonary New Patient (FT) Appointment Date:12/18/2023 01:45:00 PM Scheduled Provider:Willie Kaur MD Location:.Cardiology [facility] Appointment Type:Cardiology Follow Up (FT) [facility] Future Appointments Appointment Date:08/08/2024 08:15:00 AM Scheduled Provider:Claudio Monroe DO Location:[facility] Appointment Type:Pain Management - Follow Up (FT) Appointment Date:01/12/2025 09:30:00 AM Scheduled Provider:Lokesh Mcqueen PA-C [facility] Type:Cardiology Follow Up (FT) [facility] Evaluation + Plan note Future Appointments Appointment Date:01/12/2025 09:30:00 AM Scheduled Provider:Lokesh Mcqueen PA-C [facility] Type:Cardiology Follow Up (FT) Future Scheduled Tests Radiology* CT Spine Lumbar w/ Contrast 08/15/24 [facility] evaluation + Plan note Future Appointments Appointment Date:07/13/2024 03:00:00 PM Scheduled Provider:Willie Kaur MD [facility] Type:Cardiology Follow Up (FT) Appointment Date:08/08/2024 08:15:00 AM Scheduled Provider:Claudio Monroe DO Location:[facility] Appointment Type:Pain Management - Follow Up (FT) [facility] evaluation + Plan note Future Appointments Appointment Date:01/13/2025 10:15:00 AM Scheduled Provider:Lokesh Mcqueen PA-C Location:.Cardiology Clinic Appointment Type:Cardiology Follow Up (FT) Future Scheduled Tests Radiology* CT Spine Lumbar w/ Contrast 08/15/24 [facility] evaluation + Plan note Future Appointments Appointment Date:01/23/2025 02:30:00 PM Scheduled Provider:Baldomero Hurtado MD [facility] Type:Cardiology Inpatient Follow Up (FT) Future Scheduled Tests Radiology* CT Spine Lumbar w/ Contrast 08/15/24 [facility] Evaluation + Plan note Future Appointments Appointment Date:01/23/2025 02:30:00 PM Scheduled Provider:Radu Kurtz MD Location:FT.Cardiology Clinic Appointment Type:Cardiology Inpatient Follow Up (FT) Future Scheduled Tests Radiology* CT Spine Lumbar w/ Contrast 08/15/24 [facility] evaluation + Plan note Future Appointments Appointment Date:07/26/2025 01:00:00 PM Scheduled Provider:Radu Kurtz MD Location:FT.[facility]iology Clinic Appointment Type:Cardiology Follow Up (FT) Future Scheduled Tests Radiology* CT Spine Lumbar w/ Contrast 08/15/24 [facility] evaluation note* Diagnosis Well woman exam with routine gynecological exam Routine gynecological examination Breast cancer screening by mammogram Other osteoporosis, unspecified pathological fracture presence ([facility] Restless legs Restless legs syndrome (RLS) [...] this encounter [facility] noteNo assessment information availableShelby [facility] Work Phone: Evaluoxfeq note* Diagnosis Well woman exam with routine [...] No data available for this section [facility] Narrative* Rehabilitation - Outpatient (Routine) - Authorized Specialty Diagnoses / Procedures Referred By Contac t Referred To Contact Physical Therapy Diagnoses Other spondylosis with myelopathy, lumbar region Procedures OK PHYSICAL THERAPY EVALUATION LOW COMPLEX 20 MINS OK OFFICE/OUTPATIENT NEW HIGH MDM 60 MINUTES Kath Carson MD [address] [place] [address] [address] [place] [address] Phone: tel: fax: Sofi Pyle PT Referral ID Status Reason Start Date Expiration Date V isits Requested Visits Authorized [id number] Authorized 03/10/2025 10/18/2025 30 30 [facility] [...] section and content) DATE CREATED AUTHOR 04/15/2018 [facility] DATE CREATED AUTHOR AUTHOR'S ORGANIZ ATION 03/04/2023 [facility] DATE CREATED AUTHOR AUTHOR'S ORGANIZ ATION 05/10/2024 [facility] DATE CREATED AUTHOR AUTHOR'S ORGANIZ ATION 07/17/2024 [facility] DATE CREATED AUTHOR AUTHOR'S ORGANIZ ATION 08/12/2024 [facility] DATE CREATED AUTHOR AUTHOR'S ORGANIZ ATION 11/17/2024 [facility] DATE CREATED AUTHOR AUTHOR'S ORGANIZ ATION 02/06/2025 [facility] DATE CREATED AUTHOR AUTHOR'S ORGANIZ ATION 04/06/2025 [facility] DATE CREATED AUTHOR AUTHOR'S ORGANIZ ATION 04/20/2025 [facility] EPIC Care Team (unrecognized sect ion and content) Hydraulic Technician Relationship Specialty Start Date End Date Vick Mcghee MD [address] [place] [address] PCP - General Family Medicine 05/21/23 Hydraulic Technician Relationship Specialty Start Date End Date Vick Mcghee MD [address] [place] [address] PCP - General Family Medicine 05/21/23 Hydraulic Technician Relationship Specialty Start Date End Date Vick Mcghee MD [address] [place] [address] PCP - General Family Medicine 05/21/23 Hydraulic Technician Relationship Specialty Start Date End Date Vick Mcghee MD [address] [facility] [place] [address] PCP - General Family Medicine 05/21/23 Hydraulic Technician Relationship Specialty Start Date End Date Vick Mcghee MD [address] [facility] [place] [address] PCP - General Family Medicine 05/21/23 Hydraulic Technician Relationship Specialty Start Date End Date Vick Mcghee MD [address] [facility] [place] [address] PCP - General Family Medicine 05/21/23 Team Status: Active Member Role Status Benigno Mcghee MD Primary Care Provider Active Team Status: Inactive Member Role Status Dates Vick Mcghee MD Primary Care Provider Active Start: September 02, 2024 End: September 02, 2024 NON STAFF Attending Provider Active Start: No [facility]2023 End: September 02, 2024 Hydraulic Technician Relationship Specialty Start Date End Date Vick Mcghee MD [address] [facility] [place] [address] PCP - General Family Medicine 05/21/23 Hydraulic Technician Relationship Specialty Start Date End Date Vick Mcghee MD [address] [facility] [place] [address] PCP - General Family Medicine 05/21/23 Team Status: Inactive Member Role Status Dates Vick Mcghee MD Primary Care Provider Active Start: January 17, 2025 End: January 17, 2025 Boo Godoy MD Attending Provider Active St art: January 17, 2025 End: January 17, 2025 Hydraulic Technician Relationship Specialty Start Date End Date Vick Mcghee MD PCP - General Family Medicine 05/21/23 Hydraulic Technician Relationship Specialty Start Date End Date Vick Mcghee MD PCP - General Family Medicine 05/21/23 Hydraulic Technician Relationship Specialty Start Date End Date Vick Mcghee MD PCP - General Family Medicine 05/21/23 Hydraulic Technician Relationship Specialty Start Date End Date Vick Mcghee MD PCP - General Family Medicine 05/21/23 Hydraulic Technician Relationship Specialty Start Date End Date Vick Mcghee MD PCP - General Family Medicine 05/21/23 Hydraulic Technician Relationship Specialty Start Date End Date Vick Mcghee MD PCP - General Family Medicine 05/21/23 Hydraulic Technician Relationship Specialty Start Date End Date Vick Mcghee MD PCP - General Family Medicine 05/21/23 Hydraulic Technician Relationship Specialty Start Date End Date Vick Mcghee MD PCP - General Family Medicine 05/21/23 Hydraulic Technician Relationship Specialty Start Date End Date Vick Mcghee MD PCP - General Family Medicine 05/21/23 Hydraulic Technician Relationship Specialty Start Date End Date Vick Mcghee MD PCP - General Family Medicine 05/21/23 Hydraulic Technician Relationship Specialty Start Date End Date Vick Mcghee MD PCP - [facility] Medicine 05/21/23 Hydraulic Technician Relationship Specialty Start Date End Date Vick Mcghee MD PCP - General [facility] 05/21/23 Hydraulic Technician Relationship Specialty Start Date End Date Vick Mcghee MD PCP - [facility] 05/21/23 Hydraulic Technician Relationship Specialty Start Date End Date Vick Mcghee MD PCP - [facility] 05/21/23 Hydraulic Technician Relationship Specialty Start Date End Date Vick Mcghee MD PCP - [facility] [facility] [place] 05/21/23 Reason for Visit (unrecogniz ed section [...] BE BASED ON THE PRIMARY CLINICAL RECORDS. [facility] [place] - [facility]. provides no warranty or guarantee of the accuracy or completeness of information in this document.
[2025-04-23] MEDS: MECLIZINE HCL 12.5 MG TABLET PO (22:36)
[2025-04-23] MEDS: ASPIRIN 325 MG TABLET PO (22:36)
[2025-04-23] MEDS: ENOXAPARIN SODIUM 40 MG/0.4 ML SYRINGE SUBQ (22:36)
[2025-04-23] MEDS: OXYCODONE HCL 5 MG TABLET PO (22:48)
[2025-04-24] VITALS (20 sets, daily range): BP systolic 110–156; BP diastolic 60–82; PULSE 54–148; TEMP 36.6–36.8; O2SAT 96–98
[2025-04-24 06:00] LABS: Hematocrit 36.5 % (36.0-48.0); Hemoglobin 11.8 g/dL (12.0-16.0); Mean Corpuscular HGB Conc 32.3 g/dL (29.9-35.2); Mean Corpuscular Hemoglobin 28.2 pg (26.7-34.0); Mean Corpuscular Volume 87.3 fL (81.0-99.0); Platelet Count 212 10^3/uL (150-450); Red Blood Count 4.18 10^6/uL (4.20-5.40); White Blood Count 4.9 10^3/uL (4.0-11.0)
[2025-04-24] MEDS: MECLIZINE HCL 12.5 MG TABLET PO ×3 (06:14→21:55)
[2025-04-24 06:19] LABS: Anion Gap 14.4; Blood Urea Nitrogen 16.0 mg/dL (7.0-18.0); Calcium 9.5 mg/dL (8.5-10.1); Carbon Dioxide 26.3 mmol/L (21.0-32.0); Chloride 110 mmol/L (98-107); Estimated GFR (African America >60 (>=60 mL/min/1.73m^2); Estimated GFR (Non-African Ame >60 (>=60 mL/min/1.73m^2); Glucose 85 mg/dL (74-106); Potassium 3.7 mmol/L (3.5-5.1); Sodium 147 mmol/L (136-145)
[2025-04-24 06:20] LABS: Cholesterol 151 mg/dL (<=200); HDL Cholesterol 49 mg/dL (40-60); Triglycerides 130 mg/dL (<=150); VLDL CHOLESTEROL 26.0 mg/dL
[2025-04-24] MEDS: OXYCODONE HCL 5 MG TABLET PO ×2 (08:02→17:17)
[2025-04-24] MEDS: PANTOPRAZOLE SODIUM 40 MG TABLET.DR PO ×2 (08:02→21:55)
[2025-04-24] MEDS: ENOXAPARIN SODIUM 40 MG/0.4 ML SYRINGE SUBQ (08:02)
[2025-04-24] MEDS: METOPROLOL TARTRATE 100 MG TABLET 50 MG PO (08:02)
[2025-04-24] MEDS: ASPIRIN 325 MG TABLET PO (08:02)
[2025-04-24] MEDS: SODIUM CHLORIDE 0.45 % 1,000 ML 75 ML IV (09:55)
--- NOTE | 2025-04-24 09:55 | PM.PN ---
Exam Constitutional Vital Signs, click to edit/add: Last Vital Signs Temp 97.8 F 04/24/25 08:00 Pulse 64 04/24/25 09:54 Resp 16 04/24/25 08:00 BP 131/72 04/24/25 08:00 Pulse Ox 96 04/24/25 08:00 O2 Del Method Room Air 04/24/25 08:00 Progress Note: Objective Labs Labs: Short CBC 04/23/25 04/24/25 Range/Units 17:37 05:28 WBC 6.6 4.9 (4.0-11.0) 10^3/uL Hgb 12.3 11.8 L (12.0-16.0) g/dL Hct 36.3 36.5 (36.0-48.0) % Plt Count 241 212 (150-450) 10^3/uL BMP 04/23/25 04/24/25 17:37 05:28 Sodium 143 147 H Potassium 3.7 3.7 Chloride 106 110 H Carbon Dioxide 22.6 26.3 BUN 18.0 16.0 Creatinine 0.49 L 0.55 Glucose 115 H 85 Calcium 9.6 9.5
--- NOTE | 2025-04-24 10:20 | SWNOTE1 ---
Medicare Outpatient Observation Notice reviewed and discussed with patient. Pt. verbalized understanding and signed the form. Original given to patient and copy placed in patient?s chart.
--- NOTE | 2025-04-24 10:21 | SWNOTE1 ---
SW and I met with pt in room. Pt is from home where she lives with her . Pt has a 2 story home but stays on first floor. Pt does not currently use DME but has a cane if needed. Pt voiced she had recent back surgery and she is doing outpatient therapy. Pt voiced she not does have any concerns for discharge at this time. SW to follow as needed.
--- NOTE | 2025-04-24 12:30 | PM.HP ---
HPI H&P: HPI History of Present Illness Chief complaint: DIZZINESS VERTIGO Narrative: Mrs. Holliday is a 69-year-old female who came to the emergency room yesterday complaining of dizziness and a spinning sensation. Patient denies any previous similar episode. She denies any prior history of stroke. She denies any slurred speech, confusion, disorientation, focal weakness or numbness. Patient also reports having chest discomfort. Left-sided. No radiation. No diaphoresis. No prior history of heart disease. No abdominal pain, nausea or vomiting. The patient reported heart burn which is chronic for her. Opioid HPI Opioid Management Most Recent Pain and Opioid Data: Last Pain Scale 3 Today, 11:00 Last Pain Assessment 04/23/25, 22:00 Last ED Pain Assessment 04/23/25, 17:34 Last MAR Pain Assessment 04/23/25, 22:48 Last ORT Total Score 0 04/23/25, 21:17 Last ORT Risk Category Low Risk 04/23/25, 21:17 Review of Systems ROS Narrative 12 system review otherwise negative for acute signs or symptoms. PFSH PFSH Medical History (Updated 04/24/25 @ 12:35 by Nayeli Serrano MD) Hyperthyroidism ?E05.90 - Thyrotoxicosis, unspecified without thyrotoxic crisis or storm (ICD-10) Renal lithiasis ?N20.0 - Calculus of kidney (ICD-10) Surgical History (Updated 09/02/24 @ 11:37 by Tammy Wilkes) H/O fine needle aspiration with imaging guidance ?Z98.890 - Other specified postprocedural states (ICD-10) Hx of cystoscopy ?Z98.890 - Other specified postprocedural states (ICD-10) S/P appy ?Z90.49 - Acquired absence of other specified parts of digestive tract (ICD-10) Hx of total knee arthroplasty ?Z96.659 - Presence of unspecified artificial knee joint (ICD-10) Family History (Updated 04/23/25 @ 21:46 by Jackie Camara RN) Father Family history of hypertension Family history of heart disease Mother Family history of hypertension Family history of heart disease Social History (Updated 04/23/25 @ 21:47 by Jackie Camara RN) Within the past year, how often did you have a drink containing alcohol: monthly or less Within the past year, how many standard drinks containing alcohol did you have on a typical day: 1 or 2 Within the past year, how often did you have six or more drinks on one occasion: never Total score: 0 Score interpretation: A score less than 3 is consistent with normal alcohol consumption. Smoking status: Never smoker Second hand tobacco smoke exposure: Yes (friends and child) Known occupational exposures/hazards: No Highest level of school completed/degree received: high school graduate Are you now , , , , never or living with a partner: Little interest or pleasure in doing things: not at all Feeling down, depressed, or hopeless: several days Meds Home Medications and Allergies Home Medications ?Medication ?Instructions ?Recorded ?Confirmed ?Type metoprolol tartrate 100 mg tablet 50 mg PO DAILY 08/30/24 04/23/25 History pantoprazole 40 mg tablet,delayed 40 mg PO BID 08/30/24 04/23/25 History release (Protonix) Allergies Allergy/AdvReac Type Severity Reaction Status Date / Time ropinirole (From Requip) Allergy nausea and Verified 09/02/24 11:36 vomiting Sulfa (Sulfonamide Allergy Unknown Verified 09/02/24 11:36 Antibiotics) gabapentin AdvReac htn Verified 09/02/24 11:36 lisinopril AdvReac Cough Verified 09/02/24 11:36 Exam Narrative Exam Narrative: [pt is awake and alert. oriented to place, time and person HEENT: [place] conjunctiva and NL buccal mucosa Neck: Supple, no tenderness Endocrine: No Thyromegaly. Vascular: No JVD or carotid bruit. Lymphatic: No cervical lymphadenopathy. Chest: CTA no DTP. Heart RRR, no extra sound or murmur. Abd: Soft, no tenderness, no rebound and no rigidity. Increase abd girth therefore clinically I could not exclude the possibility of intra abd mass or organomegaly. LE: No cyanosis or clubbing, no varices or edema. Neuro: A A O. Nl speech, comprehension and attention. Nl and symetrical motor and tone examination through out. Normal focus, normal concentration, normal speech, normal and symmetrical facial musculature. Symmetrical motor and tone. No ataxia. No nystagmus. []] Constitutional Vital Signs, click to edit/add: Last Vital Signs Temp 97.8 F 04/24/25 08:00 Pulse 66 04/24/25 11:55 Resp 16 04/24/25 08:00 BP 131/72 04/24/25 08:00 Pulse Ox 96 04/24/25 08:00 O2 Del Method Room Air 04/24/25 08:00 Results Labs Labs: Short CBC 04/23/25 04/24/25 Range/Units 17:37 05:28 WBC 6.6 4.9 (4.0-11.0) 10^3/uL Hgb 12.3 11.8 L (12.0-16.0) g/dL Hct 36.3 36.5 (36.0-48.0) % Plt Count 241 212 (150-450) 10^3/uL BMP 04/23/25 04/24/25 17:37 05:28 Sodium 143 147 H Potassium 3.7 3.7 Chloride 106 110 H Carbon Dioxide 22.6 26.3 BUN 18.0 16.0 Creatinine 0.49 L 0.55 Glucose 115 H 85 Calcium 9.6 9.5 Assessment and Plan Assessment and Plan (1) Vertigo: (2) Abnormal thyroid function test: (3) Hypernatremia: Plan Dizziness, spinning sensation, improving significantly. Broad differential diagnosis including but not limited to transient ischemic attack involving cerebellum or brainstem, orthostatic hypotension, benign positional vertigo, vestibular neuritis, labyrinthitis, less likely cardiac dysrhythmia, others. I had accepted to observe patient in the medical telemetry unit Echocardiogram rule out valvular disease or cardiomyopathy MRI of the brain. Unfortunately patient is reluctant to proceed with MRI due to claustrophobia. I explained the benefit and risk. I offered pretesting medication. Patient will try to proceed with MRI as recommended Meanwhile I start patient on aspirin 325 mg daily. Request lipid profile Start the patient on a statin. Start the patient on meclizine. PT OT eval and treatment. Further needed diagnostic and therapeutic invention will be determined based on the clinical progression and follow-up test result. Abnormal thyroid test. Patient has suppressed TSH with elevated T4 in 3 Likely patient has hyperthyroidism. Patient reported having some symptoms associated with hyperthyroidism such as shakiness, anxiety and tremor Patient stated that she had seen a specialist and tolerated for 2 years and patient is frustrated with the specialist lack of initiative to start treatment. Patient had biopsy which came back negative for cancer chronic conclusive. Consideration to start antithyroid medication such as Tapazole Hypertension Continue metoprolol GERD Continue Protonix Chronic medical conditions not listed above, incidental findings seen on labs and imaging. These would need to be addressed. Could be addressed when time and condition are appropriate. Could be addressed in the outpatient setting by PCP collaboration with other needed outpatient providers.
--- NOTE | 2025-04-24 12:32 | CA_ITS ---
Patient Name: CHLOE AGARWAL MR#: [id number] : 1955 Exam Date: 04/24/2025 Ordering Doctor: KRISH ORDAZ ECHOCARDIOGRAM REPORT PROCEDURE: CA ECHO DOPPLER COMPLETE INDICATIONS: r/o cardiomyopathy, dizziness, vertigo, hypertension COMPARISON: None. DESCRIPTION: COMPLETE ECHOCARDIOGRAM Real-time transthoracic echocardiography with 2D, M-mode, spectral and color flow Doppler performed. QUALITY: Technical quality was good. LEFT VENTRICLE: Normal chamber size. Normal left ventricular wall thickness. Systolic function is normal. LV EF: Normal left ventricular ejection fraction, (55%). DIASTOLIC: Diastolic function is indeterminate. ATRIAL SEPTUM: Visually appears intact. LEFT ATRIUM: Severe dilatation. RIGHT ATRIUM: Mild dilatation. RIGHT VENTRICLE: Mild dilatation. Normal right ventricular systolic function. TRICUSPID VALVE: Normal mobility and thickness. No stenosis with mild regurgitation. Doppler studies reveal moderately (45-60) elevated right sided pressures. RVSP 47 mmHg MITRAL VALVE: Normal mobility and thickness. No evidence of mitral valve stenosis. There is no mitral annular calcification. Mild to moderate mitral regurgitation. AORTIC VALVE: Normal trileaflet appearance. No visible sclerosis. Normal leaflet mobility. No evidence of aortic valve stenosis. Mild aortic regurgitation. AORTIC ROOT: Normal diameter and appearance, measuring 3.3 cm. Ascending aorta is normal in size, measuring 3.4 cm. PULMONIC VALVE: Normal thickness and mobility. No stenosis. Trivial regurgitation. PERICARDIUM: No evidence of pericardial effusion. IVC: Collapses with inspiration. IVC is normal in size. PLEURA: CONCLUSION: 1. Normal left ventricular size and systolic function. LVEF is estimated at 55%. 2. Mildly dilated right ventricle with normal systolic function. 3. Severe left atrial dilatation. 4. Mild to moderate mitral regurgitation. 5. Mild aortic and tricuspid regurgitation. 6. Moderately elevated right-sided pressures. RVSP is 47 mmHg. Adult Echocardiography Procedure Report Left Ventricle LVEDD (3.7 - 5.6 cm): 5.18 cm LVESD (2.2 - 4.0 cm): 3.55 cm LVIVS thickness (0.6 - 1.2 cm): 1.09 cm LVPW thickness (0.5 - 1.0 cm): 0.92 cm e': 0.13 m/s E - e': 5.62 LVOT Max Gradient: 5.36 mm[Hg] LVOT Area (cm2): 1.16 m/s Peak Velocity (LVOT): 1.16 m/s LVOT Diameter 1.99 cm Left Ventricular Ejection Fraction: 55 % Left Atrium LA Volume Index (2D A2C): 54.83 ml/m2 Left Atrium Systolic Dimension: 3.43 cm Mitral Valve MV E to A Ratio: 1.07 Mitral Valve A-Wave Peak Velocity: 0.67 m/s Mitral Valve E-Wave Peak Velocity: 0.72 m/s Right Ventricle Aorta AO Root Diam: 3.26 cm Ascending Ao Diam: 2.78 cm Aortic Valve AoV Area (Peak Westley): 2.01 cm2, 2.01 cm2 Peak Velocity(Antegrade Flow): 1.78 m/s Peak Gradient(Antegrade Flow): 12.74 mm[Hg] Tricuspid Valve Peak Velocity (Regurgitant Flow): 3.32 m/s, 3.11 m/s Pulmonic Valve Peak Velocity: 0.88 m/s Peak Gradient: 3.09 mm[Hg] Right Atrium Right Atrium Systolic Pressure: 66.93 ml, 66.93 ml Dictated by: Philip Brito M.D. on 04/24/2025 at 19:51 Approved by: Philip Brito M.D. on 04/24/2025 at 19:55
[2025-04-24] MEDS: METHIMAZOLE 5 MG TABLET PO ×2 (12:46→21:55)
[2025-04-24] MEDS: ACETAMINOPHEN 325 MG TABLET 650 MG PO (13:08)
[2025-04-24] MEDS: ONDANSETRON 4 MG RAPDIS TABLET SL (15:38)
[2025-04-25] VITALS (10 sets, daily range): BP systolic 102–118; BP diastolic 54–67; PULSE 57–96; TEMP 36.6–36.8; O2SAT 95–97
[2025-04-25 06:04] LABS: Anion Gap 13.1; Blood Urea Nitrogen 14.0 mg/dL (7.0-18.0); Calcium 9.2 mg/dL (8.5-10.1); Carbon Dioxide 26.7 mmol/L (21.0-32.0); Chloride 111 mmol/L (98-107); Estimated GFR (African America >60 (>=60 mL/min/1.73m^2); Estimated GFR (Non-African Ame >60 (>=60 mL/min/1.73m^2); Glucose 95 mg/dL (74-106); Potassium 3.8 mmol/L (3.5-5.1); Sodium 147 mmol/L (136-145)
[2025-04-25] MEDS: MECLIZINE HCL 12.5 MG TABLET PO (06:14)
[2025-04-25] MEDS: OXYCODONE HCL 5 MG TABLET PO (06:22)
[2025-04-25] MEDS: ENOXAPARIN SODIUM 40 MG/0.4 ML SYRINGE SUBQ (08:49)
[2025-04-25] MEDS: ASPIRIN 325 MG TABLET PO (08:49)
[2025-04-25] MEDS: METOPROLOL TARTRATE 100 MG TABLET 50 MG PO (08:49)
[2025-04-25] MEDS: PANTOPRAZOLE SODIUM 40 MG TABLET.DR PO (08:49)
[2025-04-25] MEDS: METHIMAZOLE 5 MG TABLET PO (08:49)
--- NOTE | 2025-04-25 11:01 | REH.PTDLY ---
Physical Therapy Daily Note PT Daily Note/Assess Start: 04/25/25 10:54 Freq: Status: Active Protocol: Document 04/25/25 10:54 SERINA (Rec: 04/25/25 11:01 SERINA [id number]) Physical Therapy Daily Note/Assessment Time In 10:12 Time Out 10:25 Subjective Pt wanting to go home, unsure if she can today or not. Pt reports dizziness is improved, but still feel off at times. Still having headaches above eyes and eyes just hurt pt states. Therapeutic Exercise 5 Minutes (minutes) Therapeutic Exercise 0 Units Therapeutic Exercise Instructed in seated B LE LAQ and small marches 10x ea. Treatment Standing mini squats, marching, and hip flexion with postural cues given 10x ea for improved strength. Therapeutic Activity 8 Minutes (minutes) Therapeutic Activity 1 Units Therapeutic Activity Pt does not use AD at home, pt still wishes to use RW Comments today when offered a SC instead. Pt states she does not feel ready to walk without anything. Min A with supine to sit transfers. Sit to stand transfers SBA. Gait training with RW 75 feet with pt reporting no dizziness as long as she doesn't turn quickly. Pt uses caution as she ambulates. Static standing with pt performing head turns slowly 5x with no complaints of increased dizziness. Pt able to perform transfers back into bed Ind. Total Therapy 13 Minutes Total Physical 1 Therapy Units Daily Note Summary Pt denies any increase in pain during rx, mild ROGERS noted but had medicine for this earlier pt states. Progressed gait distance today with no LOB with pt using RW, but pt subjectively still reporting eye discomfort. Pt wanting to return home, states she has a SC she can use if needed. Pt already receiving OP therapy for post op lumbar surgery and plans to return to this at [place].
--- NOTE | 2025-04-25 13:02 | P.DS_ITS ---
DS: Providers Provider Date of admission: 04/23/25 21:02 Primary care physician: Vick Zelaya MD Consults: 04/23/25 21:17 Occupational Therapy Eval and Treat Routine Reason for consultation: Dizziness Physical Therapy Eval and Treat Routine Reason for consultation: Dizzuness DS: Diagnosis Discharge Diagnosis (1) Vertigo: (2) Abnormal thyroid function test: (3) Hypernatremia: DS: Summary Hospital Course Hospital Course: Mrs. Holliday is a 69-year-old female who came in with spinning sensation, dizziness and was found to have the following: Dizziness, spinning sensation, improving significantly within a few hours and resolved by this morning Broad differential diagnosis including but not limited to transient ischemic attack involving cerebellum or brainstem, orthostatic hypotension, benign positional vertigo, vestibular neuritis, labyrinthitis, less likely cardiac dysrhythmia, others. I had accepted to observe patient in the medical telemetry unit Echocardiogram does not show any significant valvular disease or cardiomyopathy. Mild to moderate tricuspid and mitral regurgitation MRI of the brain. Unfortunately patient is reluctant to proceed with MRI due to claustrophobia. I explained the benefit and risk. I offered pretesting medication. Patient opted not to proceed with MRI imaging of the brain at this time. Meanwhile I start patient on aspirin 325 mg daily. Request lipid profile Patient will be discharged on aspirin and small dose of statin as well as meclizine. PT OT eval and treatment. Therapy team did not recommend any additional inpatient physical therapy and/or rehabilitation. Further needed diagnostic and therapeutic invention will be determined based on the clinical progression and follow-up test result. Could be done in the outpatient setting. Abnormal thyroid test. Patient has suppressed TSH with elevated T4 in 3. These abnormalities have been there since November 2023 Likely patient has hyperthyroidism. Patient reported having some symptoms associated with hyperthyroidism such as shakiness, anxiety and tremor Patient stated that she had seen a specialist in [place] for 2 years and patient is frustrated with the specialist lack of initiative to start treatment and bedside manner. Patient had biopsy which came back negative for cancer chronic conclusive. Patient may have primary hyperthyroidism or thyroiditis that may progress eventually to hypothyroidism or hot thyroid nodule I would recommend the patient to have thyroid iodine uptake scan to be arranged by PCP in the outpatient setting. I would certainly recommend the patient to have a repeat TSH, T3 and T4 in 5 to 6 weeks after the initiation of Tapazole to ensure improvement of her thyroid function test and exclude the progression into clinical or laboratory hypothyroidism. Hypertension Continue metoprolol GERD Continue Protonix Chronic medical conditions not listed above, incidental findings seen on labs and imaging. These would need to be addressed. Could be addressed when time and condition are appropriate. Could be addressed in the outpatient setting by PCP collaboration with other needed outpatient providers. Patient has multiple medical issues as listed above and others that are not listed. All appear to be stable. I do not have any clear or strong clinical justification to extend inpatient hospitalization. Patient however will require close and frequent monitoring as well as additional work-up, investigation and therapeutic intervention that could take place from this point on post discharge. That is to prevent relapse, decompensation, rehospitalization and other medical implications. I instructed patient to ask her primary care doctor to obtain [facility] record entirely to address abnormalities seen on labs and imaging that I have and have not addressed during this hospitalization, follow-up on pending blood work, imaging and pathology is if available and to follow-up on needed medical care in the outpatient setting. Time Spent with Patient Time attestation: Total time spent providing and/or coordinating discharge services: Time spent: greater than 30 minutes Exam Narrative Exam Narrative: [pt is awake and alert. oriented to place, time and person HEENT: [place] conjunctiva and NL buccal mucosa Neck: Supple, no tenderness Endocrine: No Thyromegaly. Vascular: No JVD or carotid bruit. Lymphatic: No cervical lymphadenopathy. Chest: CTA no DTP. Heart RRR, no extra sound or murmur. Abd: Soft, no tenderness, no rebound and no rigidity. Increase abd girth therefore clinically I could not exclude the possibility of intra abd mass or organomegaly. LE: No cyanosis or clubbing, no varices or edema. Neuro: A A O. Nl speech, comprehension and attention. Nl and symetrical motor and tone examination through out. []] Constitutional Vital Signs, click to edit/add: Last Vital Signs Temp 98.0 F 04/25/25 11:45 Pulse 58 L 04/25/25 11:59 Resp 16 04/25/25 11:45 BP 102/54 04/25/25 11:45 Pulse Ox 97 04/25/25 11:45 O2 Del Method Room Air 04/25/25 11:45 DS: Data Data Completed and Pending Labs on day of discharge: Labs from last 24 hours 04/25/25 04/24/25 05:12 12:40 Sodium 147 H Potassium 3.8 Chloride 111 H Carbon Dioxide 26.7 Anion Gap 13.1 BUN 14.0 Creatinine 0.52 L Est GFR ( Amer) >60 Est GFR (Non-Af Amer) >60 BUN/Creatinine Ratio 26.9 Glucose 95 Calcium 9.2 Troponin I High Sens 19.9 Discharge Plan Discharge Disposition: ([facility]) Home, Self-Care Health Concerns: I may not have addressed or treated all of your medical illnesses or the ab normal blood work or imaging studies during this hospitalization. Please ask your primary care provider to obtain [facility] records entirely to follow up on all of the abnormal physical, laboratory, and imaging findings that I have not addressed. Please return back to the emergency room or seek medical attention if your symptoms worsen or return. Your blood test is showing that your thyroid gland is secreting too much thyroid hormone. These abnormalities have been there since November 2023. I started you on a new medication. Sometimes this condition might progress into under active thyroid where your thyroid gland would produce and make less than needed thyroid hormone. I would recommend you to have a repeat thyroid function test ( TSH, T3 and T4 ) in 5 weeks to be arranged by your primary care doctor. I would recommend you to have thyroid iodine uptake scan to be arranged by your primary care doctor. Additional management of thyroid medication would need to be adjusted by your primary care doctor. Alternatively, if you are not satisfied with your thyroid specialist in [place] I would recommend that your primary care doctor refer you to see another thyroid specialist ( [employer] ) Consider calling body bumper Dr. Ruthie Horowitz (thyroid specialist ) in [place] and have a follow-up appointment with him if you desire. Discharging you from [facility] does not mean that your medical care ends here and now. You may still need additional monitoring, work up, investigation, and treatment plan to be handled from this point on by out patient providers including your primary care provider and specialists. For any medication question, please contact your retail pharmacist or your primary care provider. Thank you. Discharge Medications: New aspirin 325 mg Tablet 325 mg PO QD Qty: 30 2RF meclizine 12.5 mg Tablet 12.5 mg PO TID Qty: 3 1RF methimazole 5 mg Tablet 5 mg PO BID Qty: 60 0RF rosuvastatin [Crestor] 5 mg tablet 5 mg PO DAILY Qty: 30 2RF Continued metoprolol tartrate 100 mg tablet 50 mg PO DAILY pantoprazole [Protonix] 40 mg tablet,delayed release (DR/EC) 40 mg PO BID Print Language: Ukrainian Forms: Portal Instructions Follow Up Appointments: May 02 @ 1:10pm with Dr. Ayoub (cardiology) [address] [place] [address] Zelaya [phone]
--- NOTE | 2025-04-26 11:40 | CM.DCFOLLOWU ---
Person spoke with:patient How are you feeling?steven fuentes, spoke with her PCP How is your pain? none Did you understand your discharge instructions?yes Do you have any questions about your discharge instructions?no Were you given any prescriptions at discharge? yes Were you able to get your prescriptions filled?yes Do you understand how to take your medications as ordered? yes Do you have any questions about your follow up appointment and do you plan to keep your follow up appointment? no questions, yes keeping follow ups Is there anything else that you would like to discuss? no Questions/Comments/Concerns/Other:none
== END 2025-04-25 13:46 | disposition home or self-care (01) ==
LOC: ER 20:56 → MS 21:08
PROVIDERS: Internal Medicine; Admitting Provider Internal Medicine; Emergency Provider Emergency Medicine; PCP Family Medicine; Visit Provider Internal Medicine
DX: R42 Dizziness and giddiness (principal); K21.9 Gastro-esophageal reflux disease without esophagitis; R07.89 Other chest pain; E87.0 Hyperosmolality and hypernatremia; I10 Essential (primary) hypertension; Z96.659 Presence of unspecified artificial knee joint; R94.6 Abnormal results of thyroid function studies; I08.1 Rheumatic disorders of both mitral and tricuspid valves
CPT/HCPCS: 36415; 70450; 80048; 80061; 84484; 85025; 85027; 93005; 93306; 96365; 96372; 96375; 97161; 97162; 97165; 97530; 97535; 99285; G0378; J1650; J2550; J3360; J3490; Q0162

== ENCOUNTER 2025-05-29 09:34 | Outpatient (OUT) | payer MEDICARE, SELFPAY ==
--- OUTSIDE RECORDS SUMMARY | 2025-05-12 04:46 | XMS_ITS ---
Author Organization [facility] in [place] Address [address] [place] [address] Care Team Providers Care Lead Web Application Developer Name Role Phone Gilberto Zelaya Primary Care Provider REASON FOR VISIT vertigo Medications Medication SIG (Take, Route, Fr equency, Duration) Notes Start Date End Date Status Meclizine HCl 25 MG 1 tablet as needed O rally Q 6 hours 05/12/2025 Active Encounters Encounter Location Date Provider Diagnosis [id number] [place] [address] 05/12/2025 Gilberto Hankinskarel Plan Of Treatment Medication Medication Name Sig Start Date Stop Date Notes Meclizine HCl 25 MG 1 tablet as needed Orally Q 6 hours Progress Notes * Anjelica AGARWALDOB:[birth year] (69 yo F)Acc No.[id number]:05/12/2025 Patient: Ismael Anjelica HERRERA :1955 A ge:69 Y S ex:Female Address:[address] [place], [address] * Refills Start Meclizine HCl Tablet, 25 MG, Orally, 30, 1 tablet as needed, Q 6 hours, Refills=11 * true * Date: Generated for Printi ng/Faxing/eTransmitting on: 0 05/29/2025 09:41 AM EDT
--- OUTSIDE RECORDS SUMMARY | 2025-05-15 07:09 | XMS_ITS ---
Author Organization [facility] in [place] Address [address] [place] [address] Care Team Providers Care Tray Filler Name Role Phone Gilberto Zelaya Primary Care Provider [phone] Sarah Nguyen Unavailable [phone] REASON FOR VISIT cx sept appt Encounters Encounter Location Date Provider Diagnosis Endocrinology [address] [place] [address] 05/15/2025 Sarah Nguyen Plan Of Treatment No Information Progress Notes * Anjelica AGARWALDOB:[birth year] (69 yo F)Acc No.[id number]:05/15/2025 Patient: Ismael Anjelica HERRERA :1955 A ge:69 Y S ex:Female Address:[address] [facility] [address] * true * Date: Generated for Printi ng/Faxing/eTransmitting on: 0 05/29/2025 09:40 AM EDT
--- OUTSIDE RECORDS SUMMARY | 2025-05-23 06:35 | XMS_ITS ---
Author Organization [facility] in [place] Address [address] [place] [address] Care Team Providers Care Clinical Haematologist Name Role Phone Giblerto Zelaya Primary Care Provider REASON FOR VISIT refill Medications Medication SIG (Take, Route, Fr equency, Duration) Notes Start Date End Date Status methIMAzole 5 MG 1 tablet Orally Twic e Daily for 30 days Active Encounters Encounter Location Date Provider Diagnosis [facility] [address] [place] [address] 05/23/2025 Gilberto Zelaya Plan Of Treatment Medication Medication Name Sig Start Date Stop Date Notes methIMAzole 5 MG 1 tablet Orally Twice Daily for 30 days Progress Notes * Anjelica OHLLIDAYDOB:[birth year] (69 yo F)Acc No.[id number]:05/23/2025 Patient: Ismael Anjelica HERRERA :1955 A ge:69 Y S ex:Female Address:[address] [facility] [place], [address] * Refills Refill methIMAzole Tablet, 5 MG, Orally, 30, 1 tablet, Twice Daily, 30 days, Refills=0 * true * Date: Generated for Printi ng/Faxing/eTransmitting on: 0 05/29/2025 09:40 AM EDT
--- OUTSIDE RECORDS SUMMARY | 2025-05-29 09:40 | XMS_ITS | Encounter Summary ---
Author Organization [facility] Address [address] [place] [address] Care Team Providers Care Dental Hygienist Name Role Phone Vick Zelaya MD Primary Care Provider [phone] Encounter Details Date Type Department Care Team (Late Contact Info) Description 05/20/2023 Abstract [facility] [address] [place] [phone] Sydnie Saavedra, DPM [address] [place], [place] [phone] Social History Tobacco Use Types Packs/Day Years [...] Department Care Team (Late Contact Info) Description 12/04/2025 10:00 AM EST Office Visit EUGENIE Thao OBARMAAN [address] [facility] [place] [phone] Antionette Yang PA [address] [place] [address] documented as of this encounter Visit Diagnoses Not on filedocumented in this encounter Care Teams Dental Hygienist Relationship Specialty Start Date End Date Vick Zelaya MD PCP - General Family Medicine 05/21/23 documented as of this encounter
--- OUTSIDE RECORDS SUMMARY | 2025-05-29 09:41 | XMS_ITS | Clinical Summary ---
Author Organization [facility] Address [address] [place] [address] Care Team Providers Care Cytopathology Technologist Name Role Phone Vick Zelaya MD Primary Care Provider [phone] Allergies Active Allergy Reactions Criticality Noted Date [...] Encounters Date Type Department Care Team Description 04/24/2025 Telephone [facility] [address] [facility] [address] [place] [address] Kenny Terry, DINING ROOM COORDINATOR PT CX 04/26/25; PT on-hold 04/18/2025 11:30 AM EDT Treatment [facility] [address] [facility] [address] [place] [address] Kenny Terry, DINING ROOM COORDINATOR Other spondylosis with myelopathy, lumbar region (Primary Dx) 04/18/2025 Bamboo flowsheet [facility] [address] [facility] [address] [place] [address] Kenny Terry, ION 04/18/2025 Travel 04/14/2025 9:30 AM EDT Treatment [facility] [address] [facility] [address] [place] [address] Kenny Terry, DINING ROOM COORDINATOR Other spondylosis with myelopathy, lumbar region (Primary Dx) 04/14/2025 Bamboo flowsheet [facility] [address] [facility] [address] [place] [address] Kenny Terry, DINING ROOM COORDINATOR 04/14/2025 Travel 04/12/2025 9:00 AM EDT Treatment [facility] [address] [facility] [address] [place] [address] Kenny Terry, DINING ROOM COORDINATOR Other spondylosis with myelopathy, lumbar region (Primary Dx) 04/12/2025 Travel 04/10/2025 8:30 AM EDT Treatment [facility] [address] [facility] [address] [place] [address] HarrisonRmKenny, DINING ROOM COORDINATOR Other spondylosis with myelopathy, lumbar region (Primary Dx) 04/10/2025 Bamboo flowsheet [facility] [address] [facility] [address] [place] [address] HarrisonRmKenny, DINING ROOM COORDINATOR 04/10/2025 Travel 04/07/2025 9:30 AM EDT Treatment [facility] [address] [facility] [address] [place] [address] Hong Paige, DINING ROOM COORDINATOR Other spondylosis with myelopathy, lumbar region (Primary Dx) 04/07/2025 Bamboo flowsheet [facility] [address] [facility] [address] [place] [address] Hong Paige, DINING ROOM COORDINATOR 04/07/2025 Travel 04/05/2025 11:00 AM EDT Treatment [facility] [address] [facility] [address] [place] [address] Sofi Pyle, PT Other spondylosis with myelopathy, lumbar region (Primary Dx) 04/05/2025 Bamboo flowsheet [facility] [address] [facility] [address] [place] [address] Sofi Pyle, PT 04/05/2025 Travel 04/03/2025 2:00 PM EDT Treatment [facility] [address] [facility] [address] [place] [address] Sofi Pyle, PT Other spondylosis with myelopathy, lumbar region (Primary Dx) 04/03/2025 Bamboo flowsheet [facility] [address] [facility] [address] [place] [address] Sofi Pyle, PT 04/03/2025 Travel 03/31/2025 10:30 AM EDT Treatment [facility] [address] [facility] [address] [place] [address] Hong Paige, DINING ROOM COORDINATOR Other spondylosis with myelopathy, lumbar region (Primary Dx) 03/31/2025 Bamboo flowsheet [facility] [address] [facility] [address] [place] [address] Hong Paige, DINING ROOM COORDINATOR 03/31/2025 Travel 03/29/2025 11:00 AM EDT Treatment [facility] [address] [facility] [address] [place] [address] Sofi Pyle, PT Other spondylosis with myelopathy, lumbar region (Primary Dx) 03/29/2025 Bamboo flowsheet [facility] [address] [facility] [address] [place] [address] Sofi Pyle, PT 03/29/2025 Travel 03/27/2025 12:00 PM EDT Treatment [facility] [address] [facility] [address] [place] [address] Sofi Pyle, PT Other spondylosis with myelopathy, lumbar region (Primary Dx) 03/27/2025 Bamboo flowsheet [facility] [address] [place] [address] [place] [address] Sofi Pyle, PT 03/27/2025 Travel 03/24/2025 12:00 PM EDT Treatment [facility] [address] [facility] [address] [place] [address] Kenny Terry, DINING ROOM COORDINATOR Other spondylosis with myelopathy, lumbar region (Primary Dx) 03/24/2025 Bamboo flowsheet [facility] [address] [place] [address] [place] [address] Kenny Terry, DINING ROOM COORDINATOR 03/24/2025 Travel 03/22/2025 12:00 PM EDT Treatment [facility] [address] [place] [address] [place] [address] Kenny Terry, DINING ROOM COORDINATOR Other spondylosis with myelopathy, lumbar region (Primary Dx) 03/22/2025 Bamboo flowsheet [facility] [address] [place] [address] [place] [address] Kenny Terry, DINING ROOM COORDINATOR 03/22/2025 Travel 03/20/2025 12:00 PM EDT Treatment [facility] [address] [place] [address] [place] [address] Kenny Terry, DINING ROOM COORDINATOR Other spondylosis with myelopathy, lumbar region (Primary Dx) 03/20/2025 Bamboo flowsheet [facility] [address] [place] [address] [place] [address] Kenny Terry, DINING ROOM COORDINATOR 03/20/2025 Travel 03/17/2025 12:00 PM EDT Treatment [facility] [address] [place] [address] [place] [address] Kenny Terry, DINING ROOM COORDINATOR Other spondylosis with myelopathy, lumbar region (Primary Dx) 03/17/2025 Bamboo flowsheet [facility] [address] [place] [address] [place] [address] Kenny Terry, DINING ROOM COORDINATOR 03/17/2025 Travel 03/14/2025 3:00 PM EDT Treatment [facility] [address] [place] [address] [place] [address] Kenny Terry, DINING ROOM COORDINATOR Other spondylosis with myelopathy, lumbar region (Primary Dx) 03/14/2025 Bamboo flowsheet [facility] [address] [facility] [address] [place] [address] Kenny Terry, DINING ROOM COORDINATOR 03/14/2025 Travel 03/10/2025 9:30 AM EDT Evaluation [facility] [address] [facility] [address] [place] [address] Sofi Pyle, PT Other spondylosis with myelopathy, lumbar region (Primary Dx) 03/10/2025 Plan of Care Documentation [facility] [address] [place] [address] [place] [address] 03/10/2025 Bamboo flowsheet [facility] [address] [place] [address] [place] [address] Sofi Pyle, PT 03/10/2025 Travel 03/09/2025 Telephone [facility] [address] [place] [address] Renee Langston LPN from Last 3 Months Immunizations Immunization Administration [...] Care Team (Late st Contact Info) Description 12/04/2025 10:00 AM EST Office Visit [facility] [place] [address] [place] [address] Antionette Yang PA [address] [facility] [place] [address] Health Maintenance Due Date Last Done Comments [...] AM EST Narrative 12/14/2024 11:48 AM EST The [address] [address] Mammography Report Signed Patient: CHLOE AGARWAL MR#: [id number] : 1955 Acct:[id number] Age/Sex: 69 / F ADM Date: 12/14/24 Loc: MAMMO Attending Dr: Antionette Yang Ordering Physician: Antionette Yang Results: Date of Service: 12/14/24 Follow Up: Procedure(s): MM tomosynthesis screening BI Accession Number(s): [id number] cc: Antionette Yang; Vick Zelaya M.D. Patient Name: CHLOE AGARWAL MR#: [id number] : 1955 Exam Date: 12/14/2024 Ordering Doctor: [...] Treatments None Family Cancers None LOCATION: [facility] BREAST COMPOSITION: There are scattered [...] Signed By: 12/14/24 1148 DD/ 1147 TD/TT: Supervisor Calibration: Procedure Note Radiology, Radiologist, MD - 12/14/2024 [place] [address] Mammography Report Signed Patient: CHLOE AGARWAL JMR#: [id number] : 1955cct:[id number] Age/Sex: 69 / FADM Date: 12/14/24 Loc: MAMMO Attending Dr: Antionette Yang Ordering Physician: Antionette YangResults: Date of Service: 12/14/24Follow Up: Procedure(s): MM tomosynthesis screening BI Accession Number(s): [id number] cc: Antionette Yang; Vick Zelaya M.D. Patient Name: CHLOE AGARWAL MR#: [id number] : 1955 Exam Date: 12/14/2024 Ordering Doctor: JESSICA Yang . RADIOLOGY REPORT PROCEDURE: MM TOMOSYNTHESIS SCREENING BI COMPARISON: MM TOMOSYNTHESIS SCREENING BI, 11/30/2023. MG MAMM [id number] [place] CAD, 10/22/2022. MG MAMM [place] DIAG W CAD, 06/26/2021. MG MAMM [place] DIAGW CAD, 09/20/2019. INDICATIONS: Screening Calculator Name NCI Breast Cancer Risk Assessment Tool 5 Year Breast Cancer Risk Not Reported. Lifetime Breast Cancer Risk Not Reported. Personal Breast Cancer No Personal Ovarian Cancer No Treatments None Family Cancers None LOCATION: [facility] BREAST COMPOSITION: There are scattered [...] M.D. Signed By:12/14/24 1148 DD/ 1147 TD/TT: Supervisor Calibration: Antionette [facility] Final Result * Pap Smear (11/28/2024 12:00 AM EST) Swab Cervical swab / Unknown us Antionette L[facility] CYTOLOGY ORDERABLES Final Re sult EXTERNAL LAB from Last 3 Months or Most Recently Relevant to Health Maintenance Insurance MEDICARE [facility] Care Teams Cytopathology Technologist Relationship Specialty Start Date End Date Vick Zelaya MD PCP - General Family Medicine 05/21/23
--- OUTSIDE RECORDS SUMMARY | 2025-05-29 09:41 | XMS_ITS | Encounter Summary ---
Author Organization [facility] Address [address] [place] [address] Care Team Providers Care Commissioning Agent Name Role Phone Vick Zelaya MD Primary Care Provider [phone] Encounter Details Date Type Department Care Team (Late st Contact Info) Description 12/30/2024 Abstract [facility] [address] [place] [address] Norman Dubois DO [address] [facility] [address] [place], [place] [phone] Social History Tobacco Use Types Packs/Day Years [...] EST Office Visit [facility] [place] [address] [place] [address] Antionette Yang PA [address] [facility] [place] [address] documented as of this encounter Visit Diagnoses Not on filedocumented in this encounter Care Teams Commissioning Agent Relationship Specialty Start Date End Date Vick Zelaya MD PCP - General Family Medicine 05/21/23 documented as of this encounter
--- OUTSIDE RECORDS SUMMARY | 2025-05-29 09:41 | XMS_ITS | Encounter Summary ---
Author Organization [facility] Address [address] [place] [address] Care Team Providers Care Radio Mechanic Apprentice Name Role Phone Vick Zelaya MD Primary Care Provider [phone] Encounter Details Date Type Department Care Team (Late Contact Info) Description 12/15/2024 Orders Only EUGENIE Thao OBGYAlycia [address] [facility] [place] [address] Stefan Sunland, MA [address] [facility] [place] [address] Social History Tobacco Use Types Packs/Day Years [...] EST Office Visit [facility] [place] [address] [facility] [address] Antionette Yang PA [address] [facility] [place] [address] documented as of this encounter Procedures Procedure Name Priority Date/Time Associated Diagnosis Comments PAP SMEAR Routine 11/28/2024 12:00 AM EST documented in this encounter Results * Pap Smear (11/28/2024 12:00 AM EST) Swab Cervical swab / Unknown us Antionette [facility] CYTOLOGY ORDERABLES Final Re sult EXTERNAL LAB documented in this encounter Visit Diagnoses Not on filedocumented in this encounter Care Teams Radio Mechanic Apprentice Relationship Specialty Start Date End Date Vick Zelaya MD PCP - General Family Medicine 05/21/23 documented as of this encounter
--- OUTSIDE RECORDS SUMMARY | 2025-05-29 09:41 | XMS_ITS | Encounter Summary ---
Author Organization [facility] Address [id number] [address] [place] [address] Care Team Providers Care Art Therapy Certified Supervisor Name Role Phone Unavailable Primary Care Provider Unavailabl e Encounter Details Date Type Department Care Team (Late st Contact Info) Description 08/11/2024 Orders Only [facility] [employer] [facility] [place] [address] External, Scanning Provider Pain (Primary [...]
--- OUTSIDE RECORDS SUMMARY | 2025-05-29 09:41 | XMS_ITS | Clinical Summary ---
Author Organization [facility] Address [address] [place] [address] Phone Care Team Providers Care Mold Car Pusher Name Role Phone Vick Zelaya MD Primary Care Provider [phone] Allergies Active Allergy Reactions Criticality Noted Date Comments Baclofen Nausea/vomiting 05/02/2025 Duloxetine Other High 07/08/2024 Other Reaction(s): Vomiting Gabapentin Headache,Cardiac arrhythmia/arrest 09/15/2023 Lisinopril Cough 05/21/2023 Other Reaction(s): Coughing Sulfa (Sulfonamide Antibiotics) Unknown 05/21/2023 Other Reaction(s): Unknown Medications metoprolol succinate XL (Toprol-XL) 50 mg 24 hr tablet Take 1 tablet (50 mg) by mouth once daily. Active pantoprazole (ProtoNix) 40 mg EC tablet Take 1 tablet (40 mg) by mouth 2 times a day. Active methIMAzole (Tapazole) 5 mg tablet Take 1 tablet (5 mg) by mouth every 12 hours. Active aspirin 81 mg EC tabletIndication s:Chest pain, unspecified type Take 1 tablet (81 mg) by mouth once daily. 90 tablet 3 Active aspirin 325 mg tablet Take 1 tablet (325 mg) by mouth once daily. 05/02/20 25 Discontinu ed(Dose adjustment ) Active Problems Problem Noted Date Diagnosed Date Chest pain, unspecified 05/02/2025 BMI 27.0-27.9,adult 05/02/2025 GERD (gastroesophageal reflux disease) Never smoked tobacco 05/02/2025 Ventricular ectopic beats 05/02/2025 White coat syndrome with diagnosis of hypertensi on 05/02/2025 Hyperthyroidism 05/02/2025 Encounters Date Type Department Care Team Description 05/02/2025 1:10 PM EDT Office Visit [address] [address] James Ayoub MD White coat syndrome with diagnosis of hypertension (Primary Dx); Chest pain, unspecified type; Gastroesophageal reflux disease, unspecified whether esophagitis present; Ventricular ectopic beats; BMI 27.0-27.9,adult; Never smoked tobacco; Hyperthyroidism 05/02/2025 Travel from Last 3 Months Immunizations Immunization Administration Dates Next Due Zoster vaccine, recombinant, adult (SHINGRIX) ,11/12/2020 Family History Medical History Relation Name Comments Hypertension Brother Heart failure Father Heart failure Mother Hypertension Sister Relation Name Status Comments Brother Father Mother Sister Social History Tobacco Use Types Packs/Day Years Used Date Smoking Tobacco: Never Smokeless Tobacco: Never Tobacco Cessation:Counseling Given: Not Answered Alcohol Use Standard Drinks/Week Comments Yes 0 (1 standard drink = 0.6 oz pur e alcohol) wine rarely Comments Unknown Sex and Gender Information Value Date Recorded Sex Assigned at Not on file Legal Sex Female 12:22 PM EDT Gender Identity Not on file Sexual Orientation Not on file Last Filed Vital Signs Vital Sign Reading Time Taken Comments Blood Pressure 130/75 05/02/2025 1:44 PM EDT Pulse 91 05/02/2025 1:13 PM EDT Temperature - - Respiratory Rate - - Oxygen Saturation - - Inhaled Oxygen Concentration - - Weight 63.5 kg (140 lb) 05/02/2025 1:13 PM EDT Height 152.4 cm (5') 05/02/2025 1:13 PM EDT Body Mass Index 27.34 05/02/2025 1:13 PM EDT Plan of Treatment Upcoming Encounters Date Type Department Care Team (Late st Contact Info) Description 12/07/2025 3:00 PM EST Office Visit [address] [address] James Ayoub MD [address] [place] [address] 2, [address] [address] Health Maintenance Due Date Last Done Comments CT Colonography 1955 FIT-DNA (Cologuard) 1955 FIT 1955 Lipid Panel 1955 Medicare Annual Wellness Vis it (AWV) 1955 Sigmoidoscopy 1955 TSH Level 1955 MMR Vaccines (1 of 1 - Standard series) 1958 Diabetes Screening 1975 Hepatitis C Screening 1975 DTaP/Tdap/Td Vaccines (1 - Tdap) 1979 Pneumococcal Vaccine (1 of 1 - PCV) 2007 RSV High Risk: (Elderly (60+ ) or Population) (1 - Risk 60-74 years 1-dose series) 2017 Mammogram 10/22/2023 10/22/2022, 06/26/2021 COVID-19 Vaccine (1 - 2023-2 5 season) 2024 Bone Density Scan 10/22/2024 10/22/2022, 09/24/2022 Influenza Vaccine (#1) 2025 Colonoscopy 04/03/2033 04/03/2023 Colorectal Cancer Screening 04/03/2033 Zoster Vaccines Completed 02/22/2021, 11/12/2020 HIB Vaccines Aged Out No longer eligi ble based on patient's age to complete this topic HPV Vaccines Aged Out No longer eligi ble based on patient's age to complete this topic Hepatitis A Vaccines Aged Out No long er eligible based on patient's age to complete this topic Hepatitis B Vaccines Aged Out No long er eligible based on patient's age to complete this topic IPV Vaccines Aged Out No longer eligi ble based on patient's age to complete this topic Meningococcal Vaccine Aged Out No atif getachew eligible based on patient's age to complete this topic Rotavirus Vaccines Aged Out No longer eligible based on patient's age to complete this topic Procedures Procedure Name Priority Date/Time Associated Diagnosis Comments ECG 12-LEAD Routine 05/02/2025 1:10 PM EDT Chest pain, unspecified type from Last 3 Months Results * ECG 12 Lead (05/02/2025 1:10 PM EDT) Narrative CPACS - 05/02/2025 1:55 PM EDT Normal sinus rhythm with PVCs. QTc intervals 430 ms us James Ayoub MD ECG ORDERABLES Final Resu lt CPACS from Last 3 Months Insurance MEDICARE PART A AND B Member Subscriber Plan / Payer (Ef fective 2022-Present) Name:Anjelica Holliday Member ID:[id number] Relation to Subscriber:Self Name:Anjelica Holliday Subscriber ID:[id number] Payer ID:Not on file Group ID:Not on file Type:Not on file Address: [address] MEDICARE PART A AND B Care Teams Mold Car Pusher Relationship Specialty Start Date End Date Vick Zelaya MD [address] [place] [address] PCP - General Family Medicine 05/02/25
--- OUTSIDE RECORDS SUMMARY | 2025-05-29 09:41 | XMS_ITS | Encounter Summary ---
Author Organization [facility] tem Address [id number] [address] [place] [address] Care Team Providers Care Electronic System Engineer Name Role Phone Unavailable Primary Care Provider Unavailabl e Encounter Details Date Type Department Care Team (Late st Contact Info) Description 08/09/2024 Orders Only [facility] - Interventional Radiology [address] [place] [address] Sarah Nguyen MD [address] [place] [address] Thyroid nodule (Primary Dx) Social History Tobacco [...]
--- OUTSIDE RECORDS SUMMARY | 2025-05-29 09:41 | XMS_ITS | Encounter Summary ---
Author Organization [facility] Address [address] [place] [address] Phone Care Team Providers Care Assembly Supervisor Name Role Phone Vick Zelaya MD Primary Care Provider [phone] Encounter Details Date Type Department Care Team (Late st Contact Info) Description 11/16/2024 Scanned Document [facility] [address] [place] [address] Scanning, Generic Provider Social History Tobacco Use Types Packs/Day Years Used Date Smoking Tobacco: Never Assessed Comments Unknown Sex and Gender Information Value Date Recorded Sex Assigned at Not on file Legal Sex Female 12:22 PM EDT Gender Identity Not on file Sexual Orientation Not on file documented as of this encounter Plan of Treatment Upcoming Encounters Date Type Department Care Team (Late st Contact Info) Description 12/07/2025 3:00 PM EST Office Visit [facility] [address] [address] James Ayoub MD [address] [facility] [address] [place] [address] documented as of this encounter Procedures Procedure Name Priority Date/Time Associated Diagnosis Comments ECHOCARDIOGRAM 11/16/2024 documented in this encounter Results * Echocardiogram (11/16/2024) Narrative 11/16/2024 Ordered by an unspecified provider. us Generic Provider Scanning CV ECHO PROCEDURES Fin al Result documented in this encounter Visit Diagnoses Not on filedocumented in this encounter Care Teams Assembly Supervisor Relationship Specialty Start Date End Date Vick Zelaya MD [address] [place] [address] PCP - General Family Medicine 05/02/25 documented as of this encounter
--- OUTSIDE RECORDS SUMMARY | 2025-05-29 09:41 | XMS_ITS | Encounter Summary ---
Author Organization [facility] Address [address] [place] [address] Care Team Providers Care Solo Truck Driver Name Role Phone Vick Zelaya MD Primary Care Provider [phone] Encounter Details Date Type Department Care Team (Late st Contact Info) Description 12/02/2023 Abstract EUGENIE Snachez [facility] [address] [place] [address] Lakshmi Crowley LPN [address] [place] [id number] Social History Tobacco Use Types Packs/Day Years [...] 12/04/2025 10:00 AM EST Office Visit [facility] [place] [address] [facility] [place] [address] Antionette Yang PA [address] [facility] [place] [address] documented as of this encounter Visit Diagnoses Not on filedocumented in this encounter Care Teams Solo Truck Driver Relationship Specialty Start Date End Date Vick Zelaya MD PCP - General Family Medicine 05/21/23 documented as of this encounter
--- OUTSIDE RECORDS SUMMARY | 2025-05-29 09:41 | XMS_ITS | Encounter Summary ---
Author Organization [facility] Address [address] [place] [address] Care Team Providers Care Forensic Computer Examiner Name Role Phone Vick Zelaya MD Primary Care Provider [phone] Encounter Details Date Type Department Care Team (Late Contact Info) Description 11/30/2023 Clinisync Result Encounter [facility] External Department Unsolicited Antionette Yang PA [address] [place] [address] [place] [address] Social History Tobacco Use Types Packs/Day Years [...] 10:00 AM EST Office Visit [facility] [address] [place] [address] Antionette Yang PA [address] [place] [address] documented as of this encounter Procedures Procedure Name Priority Date/Time Associated Diagnosis Comments MM TOMOSYNTHESIS SCREENING BI 11/30/2023 9:15 AM EST documented in this encounter Results * MM TOMOSYNTHESIS SCREENING BI (11/30/2023 9:15 AM EST) Anatomical Region Laterality Modality Other 11/30/2023 9:15 AM EST Narrative 11/30/2023 9:17 AM EST The [address] [address] Mammography Report Signed Patient: ANJELICA AGARWAL MR#: [id number] : 1955 Acct:[id number] Age/Sex: 68 / F ADM Date: 11/30/23 Loc: LAB Attending Dr: Antionette aYng Ordering Physician: Antionette Yang Results: Date of Service: 11/30/23 Follow Up: Procedure(s): MM tomosynthesis screening BI Accession Number(s): [id number] cc: Antionette Yang; Vick Zelaya M.D. Patient Name: ANJELICA AGARWAL MR#: [id number] : 1955 Exam Date: 11/30/2023 Ordering Doctor: [...] Cancers None LOCATION: The [facility] BREAST COMPOSITION: Scattered areas fibroglandular density. [...] M.D. Signed By: 11/30/23916 DD/ 4 TD/TT: Cafeteria Table Attendant: Procedure Note Radiology, Radiologist, - 11/30/2023 The [place] [id number] Mammography Report Signed Patient: ANJELICA AGARWAL R#: [id number] : 1955cct:[id number] Age/Sex: 68 / FADM Date: 11/30/23 Loc: LAB Attending Dr: Antionette Yang Ordering Physician: Antionette YangResults: Date of Service: 11/30/23Follow Up: Procedure(s): MM tomosynthesis screening BI Accession Number(s): [id number] cc: Antionette Yang; Vick Zelaya M.D. Patient Name: ANJELICA AGARWAL MR#: [id number] : 1955 Exam Date: 11/30/2023 Ordering Doctor: [...] Cancers None LOCATION: The [facility] BREAST COMPOSITION: Scattered areas fibroglandular density. [...] Reed M.D. Signed By:11/30/23916 DD/ 4 TD/TT: Cafeteria Table Attendant: Antionette [facility] Final Result documented in this encounter Visit Diagnoses Not on filedocumented in this encounter Care Teams Forensic Computer Examiner Relationship Specialty Start Date End Date Vick Zelaya MD PCP - General Family Medicine 05/21/23 documented as of this encounter
--- OUTSIDE RECORDS SUMMARY | 2025-05-29 09:41 | XMS_ITS | Encounter Summary ---
Author Organization [facility] Address [address] [place] [address] Care Team Providers Care Talent Manager Name Role Phone Vick Zelaya MD Primary Care Provider [phone] Encounter Details Date Type Department Care Team (Late Contact Info) Description 06/03/2023 Abstract [facility] [address] [place] [phone] Sydnie Saavedra, DPM [address] [place], [place] [id number] Social History Tobacco Use Types Packs/Day Years [...] EST Office Visit [facility] [address] [phone] Antionette Yang PA [address] [facility] [address] [place], [place] [phone] documented as of this encounter Visit Diagnoses Not on filedocumented in this encounter Care Teams Talent Manager Relationship Specialty Start Date End Date Vick Zelaya MD PCP - General Family Medicine 05/21/23 documented as of this encounter
--- OUTSIDE RECORDS SUMMARY | 2025-05-29 09:41 | XMS_ITS | Patient Health Record ---
Author Organization [facility] in [place] Address [address] [place] [address] Care Team Providers Care Beam Doffer Name Role Phone Gilberto Zelaya Primary Care Provider Provider, Lab Unavailable [phone] Provider, Radiology Unavailable [phone] Sarah Nguyen Unavailable [phone] Allergies Allergen (clinical drug ingredient) Drug/Non Drug Allergy documented on EMR Reaction Allergy Type Onset Date Status Substance with sulfonamide structure and antibacterial mechanism of action (substance) Sulfa Drugs (uncoded) Unknown Allergy Active Requip nausea and vomiting Drug Allergy Active gabapentin Gabapentin high BP Drug Allergy Activ e lisinopril Lisinopril cough Drug Allergy Activ e Results Component Value Reference Range Notes DARIEL by IFA Reviewed date:11/13/2024 12:00:52 PM Interpretation: Performing Lab: Notes/Report: [facility] , Antinuclear Antibodies, IFA Positive . Negative <1:80 Borderline 1:80 Positive >1:80 Homogeneous Pattern TNP . Nucleolar Pattern TNP . Speckled Pattern 1:320 . Dense Fine Speckled pattern is noted. This pattern suggests the presence of DFS70 antibody which has a low prevalence in systemic autoimmune rheumatic diseases. ICAP nomenclature: AC-2,4,5,29 Centromere Pattern TNP . Spindle Apparatus Pattern TNP . Nuclear Membrane Pattern TNP . Midbody Pattern TNP . Nuclear Dot Pattern TNP . PCNA Pattern TNP . Centriole Pattern TNP . Note: Comment . Pattern Potential Disease Association - Homogeneous Systemic Lupus Erythematosus, Drug Induced Systemic Lupus Erythematosus, Chronic Autoimmune hepatitis, Juvenile Idiopathic Arthritis - Speckled Sjogren Syndrome, Systemic Lupus Erythematosus, Subacute Cutaneous Lupus, Lupus, Congenital Heart Block, Mixed Connective Tissue Disease, Scleroderma-diffuse, Scleroderma-Autoimmune Myositis Overlap Syndrome, Systemic Lupus Erythematosus-Sclerode rma-Autoimmune Myositis Overlap Syndrome, Systemic Autoimmune Rheumatic Disease, Undifferentiated Connective Tissue Disease - Nucleolar Systemic Sclerosis, Scleroderma-Autoimmune Myositis Overlap Syndrome, Sjogren Syndrome, Raynaud phenomenon, Pulmonary Arterial Hypertension, Systemic Autoimmune Rheumatic Disease, Cancer - Centromere Scleroderma-CREST, Limited Cutaneous SSc, Raynaud's Phenomenon, Primary Biliary Cholangitis - Nuclear Dot Primary Biliary Cholangitis - Nuclear Primary Biliary Cholangitis, Autoimmune Membrane Hepatitis/Liver disease, Systemic Autoimmune Rheumatic Disease, Autoimmune Cytopenias, Linear Scleroderma, Antiphospholipid Syndrome - Performed at: [address] [id number] Fur Nailer: Raul Nieves PhD, Phone: [phone] Performing Lab: see note [facility] GLYCOHEMOGLOBIN A1C Reviewed date:11/09/2024 03:06:39 PM Interpretation: Performing Lab: Notes/Report: [facility] , Glycohemoglobin A1C 5.7 4.5-6.2 % ADA RECOMMENDED LIMIT 4.0 - 6.0 ADA THERAPEUTIC TARGET < 7.0 ACTION SUGGESTED > 7.0 Estimated Average Glucose 117 Performing Lab: see note [facility] INSULIN Reviewed date:11/10/2024 11:54:18 AM Interpretation: Performing Lab: Notes/Report: [facility] , Insulin 12.1 2.6-24.9 uIU/mL Performed at: [address] [id number] Fur Nailer: Raul Nieves PhD, Phone: [phone] Performing Lab: see note [facility] RHEUMATOID FACTOR Reviewed date:11/13/2024 12:00:52 PM Interpretation: Performing Lab: Notes/Report: [facility] , Rheumatoid Factor (RF) <10.0 <14.0 IU/mL Performing Lab: see note [facility] Prothrombin Time INR Reviewed date:11/09/2024 03:06:39 PM Interpretation: Performing Lab: Notes/Report: [facility] , Prothrombin Time 10.8 9.0-11.6 sec INR 1.02 DESIRED INR: 2.0-3.0 CONDITIONS NOT LISTED BELOW 2.5-3.5 FOR PROSTHETIC HEART VALVE REPLACEMENT 2.5-3.5 RECURRENT THROMBOSIS Performing Lab: see note [facility] Antistreptolysin O Ab Reviewed date:11/13/2024 12:00:52 PM Interpretation: Performing Lab: Notes/Report: [facility] , Antistreptolysin O Ab 228.9 0.0-200.0 IU/mL Performed at: CB - [facility] [address] [id number] Fur Nailer: Raul Nieves PhD, Phone: [phone] Performing Lab: see note LC - [facility] LB Occult Blood* Reviewed date:11/13/2024 12:00:52 PM Interpretation: Performing Lab: Notes/Report: [facility] , Occult Blood Positive Performing Lab: see note ML - [facility] LB IGP,Aptima HPV,Age Gdln Reviewed date:12/03/2024 01:45:56 PM Interpretation: Performing Lab: Notes/Report: BRUSH-SPATULA CERVIX ENDOCERVIX [facility] , Age Gdln ACOG Testing Note . TESTS RESULT FLAG UNITS REF RANGE LAB Clinician Provided Cytology Information Source.............Cer vix;Endocervix No. of containers..01 ThinPrep Vial Age Algo ACOG Adamaris... Note 01 <21 or >65 or no age provided FLAG LEGEND: L-Low Normal,H-High Normal,LL-Alert Low,HH-Alert High <-Panic Low,>-Panic High,A-Abnormal,AA-Cri tical Abnormal Performed at: 01 =G [facility] [address] [place] [address] Adelina Nunez MD, Pap IG (Image Guided) Note . TESTS RESULT FLAG UNITS REF RANGE LAB DIAGNOSIS: 02 NEGATIVE FOR INTRAEPITHELIAL LESION OR MALIGNANCY. CELLULAR CHANGES ASSOCIATED WITH ATROPHY ARE PRESENT. Specimen adequacy: 02 Satisfactory for evaluation. Endocervical component may not be distinguished in cases of atrophy. Performed by: 02 Mali Neely, [place] ([facility]) . 02 Note: Note 03 The Pap [...] L-Low Normal,H-High Normal,LL-Alert Low,HH-Alert High <-Panic Low,>-Panic High,A-Abnormal,AA-Cri tical Abnormal Performed at: 02 [facility] [place] [address] [place] [phone] Shakila Ivey PhD, 03 WB [facility] [address] [address] Adelina Nunez MD, Performed at: = - [facility] [address] [id number] Fur Nailer: Adelina Nunez MD, Phone: [phone] Performed at: [facility] [address] [place], [place] [id number] Fur Nailer: Shakila Ivey PhD, Phone: [phone] Performing Lab: see note - [facility] LB Prothrombin Time INR Reviewed date:01/10/2025 12:10:38 PM Interpretation: Performing Lab: Notes/Report: [facility] , Prothrombin Time 10.7 9.0-11.6 sec INR 1.01 DESIRED INR: 2.0-3.0 CONDITIONS NOT LISTED BELOW 2.5-3.5 FOR PROSTHETIC HEART VALVE REPLACEMENT 2.5-3.5 RECURRENT THROMBOSIS Performing Lab: see note ML - [facility] FREE T3 Reviewed date:04/17/2025 09:04:17 PM Interpretation: Performing Lab: Notes/Report: [facility] , Free T3 12.85 2.18-3.98 pg/mL Performing Lab: see note ML - [facility] LB FREE T4 Reviewed date:04/17/2025 09:04:17 PM Interpretation: Performing Lab: Notes/Report: [facility] , Free T4 2.86 0.76-1.46 ng/dL Performing Lab: see note ML - [facility] LB TSH Reviewed date:04/17/2025 09:04:17 PM Interpretation: Performing Lab: Notes/Report: [facility] , Thyroid Stimulating Hormone <0.007 0.358-3.740 uIU/mL Performing Lab: see note ML - [facility] LB CBC AUTO DIFF Reviewed date:04/24/2025 08:21:17 AM Interpretation: Performing Lab: Notes/Report: [facility] , White Blood Count 6.6 4.0-11.0 10 3/uL Red Blood Count 4.29 4.20-5.40 10 6/uL Hemoglobin 12.3 12.0-16.0 g/dL Hematocrit 36.3 36.0-48.0 % Mean Corpuscular Volume 84.6 81.0-99.0 fL Mean Corpuscular Hemoglobin 28.7 26.7-34.0 pg Mean Corpuscular HGB Conc 33.9 29.9-35.2 g/dL Red Cell Distribution Width 12.1 11.0-15.0 % Platelet Count 241 150-450 10 3/uL Mean Platelet Volume 10.5 9.5-13.5 fL Neutrophils Percent Auto 70.1 43.0-75.0 % Lymphocytes Percent Auto 19.9 20.5-60.0 % Monocytes Percent Auto 8.0 1.7-12.0 % Eosinophils Percent Auto 1.1 0.9-7.0 % Basophils Percent Auto 0.6 0.2-2.0 % Immature Granulocytes Pct Auto 0.3 0.0-0.5 % Neutrophils Absolute Auto 4.6 1.4-6.5 10 3/uL Lymphocytes Absolute Auto 1.3 1.2-3.8 10 3/uL Monocytes Absolute Auto 0.5 0.3-0.8 10 3/uL Eosinophils Absolute Auto 0.1 0.0-0.7 10 3/uL Basophils Absolute Auto 0.0 0.0-0.1 10 3/uL Immature Granulocytes Abs Auto 0.02 0.00-0.03 10 3/uL Performing Lab: see note ML - [facility] LB PROF CHEM 8 (BAS METB) Reviewed date:04/24/2025 08:21:17 AM Interpretation: Performing Lab: Notes/Report: [facility] , Sodium 143 136-145 mmol/L Potassium 3.7 3.5-5.1 mmol/L Chloride 106 98-107 mmol/L Carbon Dioxide 22.6 21.0-32.0 mmol/L Anion Gap 18.1 Glucose 115 74-106 mg/dL Blood Urea Nitrogen 18.0 7.0-18.0 mg/dL Creatinine 0.49 0.55-1.02 mg/dL Estimated GFR ( Amie >60 >=60 mL/min/1.73m 2 Estimated GFR (Non- Cely >60 >=60 mL/min/1.73m 2 BUN Creatinine Ratio 36.7 Calcium 9.6 8.5-10.1 mg/dL Performing Lab: see note ML - [facility] LB Troponin I High Sensitivity Reviewed date:04/24/2025 08:21:17 AM Interpretation: Performing Lab: Notes/Report: [facility] , Troponin I High Sensitivity 17.6 4.0-51.3 pg/mL CUT-OFF POINTS HAVE BEEN ESTABLISHED BASED ON THE FOURTH UNIVERSAL DEFINITION OF MYOCARDIAL INFARCTION. THE UPPER REFERENCE LIMIT (URL) OF TROPONIN, DEFINED THE 99TH PERCENTILE OF cTnI DISTRIBUTION IN A REFERENCE POPULATION, HAS BEEN CONFIRMED THE DECISION THRESHOLD FOR TN DIAGNOSIS. 99TH PERCENTILE = 51.4 PG/ML NOTE: HIGH-SENSITIVITY TROPONIN ASSAY IS NOT INTENDED TO BE USED IN ISOLATION BUT SHOULD BE INTERPRETED IN CONJUNCTION WITH OTHER DIAGNOSTIC AND CLINICAL INFORMATION. Performing Lab: see note ML - [facility] LB ECG 12 lead Reviewed date:04/24/2025 08:33:07 PM Interpretation: Performing Lab: Notes/Report: Source Facility: [place] [address] [place] [address] Electrocardiograph Report Signed Patient: CHLOE AGARWAL MR#: [id number] : 1955 Acct:[id number] Age/Sex: 69 / F ADM Date: 04/23/25 Loc: MS 218-[address]: Nayeli Ordaz M.D. Ordering Physician: Adrienne Lion M.D. Date of Service: 04/23/25 Procedure(s): ECG 12 lead Accession Number(s): [id number] cc: [facility] Test Date: 2025-04-23 Pat Name: CHLOE AGARWAL Department: Room: - Gender: Female Framing Specialist: : 1955 Requested By: 1030 Order Number: [id number] Reading MD: FLORENCIA WYATT M.D. Measurements Intervals [place] Rate: 81 P: 52 DC: 138 QRS: 19 QRSD: 86 T: 5 QT: 402 QTc: 440 Interpretive Statements 1100 Sinus rhythm 1577 with couplet ventricular premature complexes 1970 with occasional ectopic premature complexes 8102 Low QRS voltage in chest leads 9140 abnormal rhythm ECG Compared to ECG 08/01/2021 11:09:49 No significant changes Electronically Signed On 04-24-2025 20:28:33 EDT by FLORENCIA WYATT M.D. Dictated By: FLORENCIA WYATT Signed By: 04/24/252027 DD/ 40 TD/TT: Civil Litigation Attorney: [place] [address] Electrocardiograph Report Signed Patient: CHLOE AGARWAL MR#: [id number] : 1955 Acct:[id number] Age/Sex: 69 / F ADM Date: 04/23/25 Loc: MS 218-[address]: Nayeli Ordaz M.D. Ordering Physician: Adrienne Lion M.D. Date of Service: 04/23/25 Procedure(s): ECG 12 lead Accession Number(s): [id number] cc: [facility] Test Date: 2025-04-23 Pat Name: CHLOE AGARWAL Department: 60 Room: - Gender: Female Framing Specialist: : 1955 Requ ested By: 1030 Order Number: [id number] Reading MD: FLORENCIA WYATT M.D. Measurements Intervals [place] Rate: 81 P: 52 DC: 138 QRS: 19 QRSD: 86 T: 5 QT: 402 QTc: 440 Interpretive Statements 1100 Sinus rhythm 1577 with couplet ventricular premature complexes 1970 with occasional ectopic premature complexes 8102 Low QRS voltage in chest leads 9140 abnormal rhy [facility] ECG Compared to ECG 08/01/2021 11:09:49 No significant changes Electronically Yamileth d On 04-24-2025 20:28:33 EDT by FLORENCIA WYATT M.D. Dictated By: FLORENCIA WYATT Signed By: 04/24/252027 DD/ 174 TD/TT: Civil Litigation Attorney: CT head/brain wo con Reviewed date:04/24/2025 08:21:17 AM Interpretation: Performing Lab: Notes/Report: Source Facility: [facility] [place] [address] [place] [address] CT Scan Report Signed Patient: CHLOE AGARWAL MR#: [id number] : 1955 Acct:[id number] Age/Sex: 69 / F ADM Date: 04/23/25 Loc: ER Attending Dr: Ordering Physician: Adrienne Lion M.D. Date of Service: 04/23/25 Procedure(s): CT head/brain wo con Accession Number(s): [id number] cc: Vick Zelaya M.D. [facility] [place] [id number] Patient Name: CHLOE AGARWAL MRN: [id number] date: 1955 Sex: F Assigned Patient Location: ED.MAIN Current Patient Location: ED.MAIN Accession/Order Number: [id number] Exam Date: 04/23/2025 18:24 Report Date: 04/23/2025 18:26 At the request of: ADRIENNE LION MD Procedure: CT head/brain wo con Unenhanced head CT TECHNIQUE: Contiguous axial imaging of the head. The CT exam was performed using one or more the following dose reduction techniques: Automated exposure control, adjustment of the MA and/or Kv according to patient size, or use of the iterative reconstruction technique. COMPARISON: 08/01/2021 HISTORY: Dizziness starting this morning. Headaches VENTRICLES: Within normal limits ATROPHY: None BRAIN PARENCHYMA: Adequate sandoval-white matter differentiation identified. HEMORRHAGE: None HERNIATION: No mass effect or herniation INFARCTION: No recent vascular distribution infarction is seen. EXTRA-AXIAL FLUID COLLECTIONS None MIDBRAIN: Unremarkable RICK: Unremarkable MEDULLA: Unremarkable SINUSES: Unremarkable ORBITS: Grossly unremarkable MASTOIDS: Unremarkable BONY STRUCTURES Intact ADDITIONAL FINDINGS: CT/CT head/brain wo con IMPRESSION: No acute findings. Impression dictated by: Chavo Samaniego M.D. 04/23/2025 6:26 PM Dictation Location: [place] [address] Electronically authenticated by: [id number] Y Date: 04/23/2025 18:26 Dictated By: Chavo Samaniego D.O. Signed By: 04/23/25 1829 DD/ 25 TD/TT: Civil Litigation Attorney: The [address] [address] [address] Scan Report Signed Patient: CHLOE AGARWAL MR#: [id number] : 1955 Acct:[id number] Age/Sex: 69 / F ADM Date: 04/23/25 Loc: ER Attending Dr: Ordering Physician: Adrienne Lion M.D. Date of Service: 04/23/25 Procedure(s): CT head/brain wo con Accession Number(s): [id number] cc: Vick Zelaya M.D. [facility] [place] [id number] Patient Name: CHLOE AGARWAL MRN: [id number] date: 1955 Sex: F Assigned Patient Location: ED.MAIN Current Patient Loca tion: ED.MAIN Accession/Order Numb er: [id number] Exam Date: 04/23/2025 18:24 Report Date: 04/23/2025 18:26 At the request of: ADRIENNE LION MD Procedure: CT head/b rain wo con Unenhanced head CT TECHNIQUE: Contiguou s axial imaging of the head. The CT exam was performed using one or more th e following dose reduction techniques: Automated exposure control, adjustment of the MA and/or Kv according to patient size, or use of the iterative reconstruction technique. COMPARISON: 08/01/2021 HISTORY: Dizziness starting this morning. Headaches VENTRICLES: Within n ormal limits ATROPHY: None BRAIN PARENCHYMA: Adequate sandoval-white matter differentiation identified. HEMORRHAGE: None HERNIATION: No mass effect or herniation INFARCTION: No recen t vascular distribution infarction is seen. EXTRA-AXIAL FLUID COLLECTIONS None MIDBRAIN: Unremarkable RICK: Unremarkable MEDULLA: Unremarkable SINUSES: Unremarkable ORBITS: Grossly unremarkable MASTOIDS: Unremarkable BONY STRUCTURES Intact ADDITIONAL FINDINGS: C T/CT head/brain wo con IMPRESSION: No acute findings. Impression dictated by: Chavo Samaniego M.D. 04/23/2025 6:26 PM Dictation Location: [place] [address] Electronically authenticated by: [id number] Y Date: 04/23/2025 18:26 Dictated By: Yossi Samaniego D.O. Signed By: 04/23/251828 DD/ 25 TD/TT: Civil Litigation Attorney: [employer]FILE Reviewed date:04/24/2025 08:21:17 AM Interpretation: Performing Lab: Notes/Report: [facility] , Triglycerides 130 <=150 mg/dL Cholesterol 151 <=200 mg/dL HDL Cholesterol 49 40-60 mg/dL > or =60 mg/dl - LOW CARDIOVASCULAR RISK <40 mg/dl - HIGH CARDIOVASCULAR RISK LDL Cholesterol Calculated 76.0 <100 mg/dl OPTIMAL 100-129 mg/dl NEAR OR ABOVE OPTIMAL 130-159 mg/dl BORDERLINE HIGH 160-189 mg/dl HIGH >190 mg/dl VERY HIGH VLDL CHOLESTEROL 26.0 Chol HDL Ratio 3.1 3.3 - 4.4 LOW RISK 4.4 - 7.1 AVERAGE RISK 7.1 - 11.0 MODERATE RISK >11.0 HIGH RISK Performing Lab: see note - [facility] LB PROF CHEM 8 (BAS METB) Reviewed date:04/24/2025 08:21:17 AM Interpretation: Performing Lab: Notes/Report: [facility] , Sodium 147 136-145 mmol/L Potassium 3.7 3.5-5.1 mmol/L Chloride 110 98-107 mmol/L Carbon Dioxide 26.3 21.0-32.0 mmol/L Anion Gap 14.4 Glucose 85 74-106 mg/dL Blood Urea Nitrogen 16.0 7.0-18.0 mg/dL Creatinine 0.55 0.55-1.02 mg/dL Estimated GFR ( Amie >60 >=60 mL/min/1.73m 2 Estimated GFR (Non- Cely >60 >=60 mL/min/1.73m 2 BUN Creatinine Ratio 29.1 Calcium 9.5 8.5-10.1 mg/dL Performing Lab: see note - [facility] LB CBC no Diff (Hemogram) Reviewed date:04/24/2025 08:21:17 AM Interpretation: Performing Lab: Notes/Report: [facility] , White Blood Count 4.9 4.0-11.0 10 3/uL Red Blood Count 4.18 4.20-5.40 10 6/uL Hemoglobin 11.8 12.0-16.0 g/dL Hematocrit 36.5 36.0-48.0 % Mean Corpuscular Volume 87.3 81.0-99.0 fL Mean Corpuscular Hemoglobin 28.2 26.7-34.0 pg Mean Corpuscular HGB Conc 32.3 29.9-35.2 g/dL Red Cell Distribution Width 12.2 11.0-15.0 % Platelet Count 212 150-450 10 3/uL Mean Platelet Volume 11.2 9.5-13.5 fL Performing Lab: see note ML - [facility] Troponin I High Sensitivity Reviewed date:04/24/2025 01:56:20 PM Interpretation: Performing Lab: Notes/Report: [facility] , Troponin I High Sensitivity 19.9 4.0-51.3 pg/mL CUT-OFF POINTS HAVE BEEN ESTABLISHED BASED ON THE FOURTH UNIVERSAL DEFINITION OF MYOCARDIAL INFARCTION. THE UPPER REFERENCE LIMIT (URL) OF TROPONIN, DEFINED THE 99TH PERCENTILE OF cTnI DISTRIBUTION IN A REFERENCE POPULATION, HAS BEEN CONFIRMED THE DECISION THRESHOLD FOR TN DIAGNOSIS. 99TH PERCENTILE = 51.4 PG/ML NOTE: HIGH-SENSITIVITY TROPONIN ASSAY IS NOT INTENDED TO BE USED IN ISOLATION BUT SHOULD BE INTERPRETED IN CONJUNCTION WITH OTHER DIAGNOSTIC AND CLINICAL INFORMATION. Performing Lab: see note - [facility] CA echo doppler complete Reviewed date:04/24/2025 08:07:41 PM Interpretation: Performing Lab: Notes/Report: Source Facility: [facility] [place] [address] [place] [address] Cardiology Report Signed Patient: CHLOE AGARWAL MR#: [id number] : 1955 Acct:[id number] Age/Sex: 69 / F ADM Date: 04/23/25 Loc: MS 218-[address]: Nayeli rOdaz M.D. Ordering Physician: Nayeli Ordaz M.D. Date of Service: 04/24/25 Procedure(s): CA echo doppler complete Accession Number(s): [id number] cc: Vick Zelaya M.D.; Nayeli Ordaz M.D. Patient Name: CHLOE AGARWAL MR#: [id number] : 1955 Exam Date: 04/24/2025 Ordering Doctor: NAYELI ORDAZ ECHOCARDIOGRAM REPORT PROCEDURE: CA ECHO DOPPLER COMPLETE INDICATIONS: r/o cardiomyopathy, dizziness, vertigo, hypertension COMPARISON: None. DESCRIPTION: COMPLETE ECHOCARDIOGRAM Real-time transthoracic echocardiography with 2D, M-mode, spectral and color flow Doppler performed. QUALITY: Technical quality was good. LEFT VENTRICLE: Normal chamber size. Normal left ventricular wall thickness. Systolic function is normal. LV EF: Normal left ventricular ejection fraction, (55%). DIASTOLIC: Diastolic function is indeterminate. ATRIAL SEPTUM: Visually appears intact. LEFT ATRIUM: Severe dilatation. RIGHT ATRIUM: Mild dilatation. RIGHT VENTRICLE: Mild dilatation. Normal right ventricular systolic function. TRICUSPID VALVE: Normal mobility and thickness. No stenosis with mild regurgitation. Doppler studies reveal moderately (45-60) elevated right sided pressures. RVSP 47 mmHg MITRAL VALVE: Normal mobility and thickness. No evidence of mitral valve stenosis. There is no mitral annular calcification. Mild to moderate mitral regurgitation. AORTIC VALVE: Normal trileaflet appearance. No visible sclerosis. Normal leaflet mobility. No evidence of aortic valve stenosis. Mild aortic regurgitation. AORTIC ROOT: Normal diameter and appearance, measuring 3.3 cm. Ascending aorta is normal in size, measuring 3.4 cm. PULMONIC VALVE: Normal thickness and mobility. No stenosis. Trivial regurgitation. PERICARDIUM: No evidence of pericardial effusion. IVC: Collapses with inspiration. IVC is normal in size. PLEURA: CONCLUSION: 1. Normal left ventricular size and systolic function. LVEF is estimated at 55%. 2. Mildly dilated right ventricle with normal systolic function. 3. Severe left atrial dilatation. 4. Mild to moderate mitral regurgitation. 5. Mild aortic and tricuspid regurgitation. 6. Moderately elevated right-sided pressures. RVSP is 47 mmHg. Adult Echocardiography Procedure Report Left Ventricle LVEDD (3.7 - 5.6 cm): 5.18 cm LVESD (2.2 - 4.0 cm): 3.55 cm LVIVS thickness (0.6 - 1.2 cm): 1.09 cm LVPW thickness (0.5 - 1.0 cm): 0.92 cm e': 0.13 m/s E - e': 5.62 LVOT Max Gradient: 5.36 mm[Hg] LVOT Area (cm2): 1.16 m/s Peak Velocity (LVOT): 1.16 m/s LVOT Diameter 1.99 cm Left Ventricular Ejection Fraction: 55 % Left Atrium LA Volume Index (2D A2C): 54.83 ml/m2 Left Atrium Systolic Dimension: 3.43 cm Mitral Valve MV E to A Ratio: 1.07 Mitral Valve A-Wave Peak Velocity: 0.67 m/s Mitral Valve E-Wave Peak Velocity: 0.72 m/s Right Ventricle Aorta AO Root Diam: 3.26 cm Ascending Ao Diam: 2.78 cm Aortic Valve AoV Area (Peak Westley): 2.01 cm2, 2.01 cm2 Peak Velocity(Antegrade Flow): 1.78 m/s Peak Gradient(Antegrade Flow): 12.74 mm[Hg] Tricuspid Valve Peak Velocity (Regurgitant Flow): 3.32 m/s, 3.11 m/s Pulmonic Valve Peak Velocity: 0.88 m/s Peak Gradient: 3.09 mm[Hg] Right Atrium Right Atrium Systolic Pressure: 66.93 ml, 66.93 ml Dictated by: Florencia Wyatt M.D. on 04/24/2025 at 19:51 Approved by: Florencia Wyatt M.D. on 04/24/2025 at 19:55 Dictated By: FLORENCIA WYATT Signed By: 04/24/251955 DD/ 54 TD/TT: Civil Litigation Attorney: [place] [address] Cardiology Report Signed Patient: CHLOE AGARWAL MR#: [id number] : 1955 Acct:[id number] Age/Sex: 69 / F ADM Date: 04/23/25 Loc: MS 218-[address]: Nayeli Ordaz M.D. Ordering Physician: Nayeli Ordaz M.D. Date of Service: 04/24/25 Procedure(s): CA ech o doppler complete Accession Number(s): [id number] cc: Vick Zelaya M.D. ; Nayeli Ordaz M.D. Patient Name: CHLOE AGARWAL MR#: [id number] : 1955 Exam Date: 04/24/2025 Ordering Doctor: BOOKER ORADZ ECHOCARDIOGRAM REPORT PROCEDURE: CA ECHO DOPPLER COMPLETE INDICATIONS: r/o cardiomyopathy, dizziness, vertigo, hypertension COMPARISON: None. DESCRIPTION: COMPLET E ECHOCARDIOGRAM Real-time transthoracic echocardiography wit h 2D, M-mode, spectral and color flow Doppler performed. QUALITY: Technical quality was good. LEFT VENTRICLE: Norm al chamber size. Normal left ventricular wall thickness. Systolic function is normal. LV EF: Normal left ventricular ejection fraction, (55%). DIASTOLIC: Diastolic function is indeterminate. ATRIAL SEPTUM: Visua lly appears intact. LEFT ATRIUM: Severe dilatation. RIGHT ATRIUM: Mild dilatation. RIGHT VENTRICLE: Mil d dilatation. Normal right ventricular systolic function. TRICUSPID VALVE: Nor mal mobility and thickness. No stenosis with mild regurgitation. Doppl er studies reveal moderately (45-60) elevated right sided pressures. RVSP 47 mmHg MITRAL VALVE: Normal mobility and thickness. No evidence of mitral valve stenosis. There is n o mitral annular calcification. Mild to moderate mitral regurgitation. AORTIC VALVE: Normal trileaflet appearance. No visible sclerosis. Normal leaflet mobility. No evidence of aortic valve stenosis. Mild aortic regurgitation. AORTIC ROOT: Normal diameter and appearance, measuring 3.3 cm. Ascending aorta is normal in s ize, measuring 3.4 cm. PULMONIC VALVE: Norm al thickness and mobility. No stenosis. Trivial regurgitation. PERICARDIUM: No evid ence of pericardial effusion. IVC: Collapses with inspiration. IVC is normal in size. PLEURA: CONCLUSION: 1. Normal left ventricular size and systolic function. LVEF is estimated at 55%. 2. Mildly dilated ri ght ventricle with normal systolic function. 3. Severe left atria l dilatation. 4. Mild to moderate mitral regurgitation. 5. Mild aortic and tricuspid regurgitation. 6. Moderately elevat ed right-sided pressures. RVSP is 47 mmHg. Adult Echocardiograp hy Procedure Report Left Ventricle LVEDD (3.7 - 5.6 cm) : 5.18 cm LVESD (2.2 - 4.0 cm) : 3.55 cm LVIVS thickness (0.6 - 1.2 cm): 1.09 cm LVPW thickness (0.5 - 1.0 cm): 0.92 cm e': 0.13 m/s E - e': 5.62 LVOT Max Gradient: 5 .36 mm[Hg] LVOT Area (cm2): 1.16 m/s Peak Velocity (LVOT) : 1.16 m/s LVOT Diameter 1.99 cm Left Ventricular Eje ction Fraction: 55 % Left Atrium LA Volume Index (2D A2C): 54.83 ml/m2 Left Atrium Systolic Dimension: 3.43 cm Mitral Valve MV E to A Ratio: 1.07 Mitral Valve A-Wave Peak Velocity: 0.67 m/s Mitral Valve E-Wave Peak Velocity: 0.72 m/s Right Ventricle Aorta AO Root Diam: 3.26 cm Ascending Ao Diam: 2 .78 cm Aortic Valve AoV Area (Peak Westley): 2.01 cm2, 2.01 cm2 Peak Velocity(Antegr justen Flow): 1.78 m/s Peak Gradient(Antegr justen Flow): 12.74 mm[Hg] Tricuspid Valve Peak Velocity (Regurgitant Flow): 3.32 m/s, 3.11 m/s Pulmonic Valve Peak Velocity: 0.88 m/s Peak Gradient: 3.09 mm[Hg] Right Atrium Right Atrium Systoli c Pressure: 66.93 ml, 66.93 ml Dictated by: Florencia Wyatt M.D. on 04/24/2025 at 19:51 Approved by: Florencia Wyatt M.D. on 04/24/2025 at 19:55 Dictated By: FLORENCIA WYATT Signed By: 04/24/251955 DD/ 54 TD/TT: Civil Litigation Attorney: PROF MAXIME Ramirez ([facility]) Reviewed date:04/25/2025 06:56:19 PM Interpretation: Performing Lab: Notes/Report: [facility] , Sodium 147 136-145 mmol/L Potassium 3.8 3.5-5.1 mmol/L Chloride 111 98-107 mmol/L Carbon Dioxide 26.7 21.0-32.0 mmol/L Anion Gap 13.1 Glucose 95 74-106 mg/dL Blood Urea Nitrogen 14.0 7.0-18.0 mg/dL Creatinine 0.52 0.55-1.02 mg/dL Estimated GFR ( Amie >60 >=60 mL/min/1.73m 2 Estimated GFR (Non- Cely >60 >=60 mL/min/1.73m 2 BUN Creatinine Ratio 26.9 Calcium 9.2 8.5-10.1 mg/dL Performing Lab: see note ML - The [facility] LB US Thyroid Reviewed date:04/03/2025 03:28:16 PM Interpretation: Performing Lab: Notes/Report: [facility], [address] [address] Name: ANY Mckinley : 1955 Gender: F Referring Provider: Sarah Nguyen Exam: ULTRASOUND THYROID Exam Start: 04/03/2025 Accn: [id number] INDICATION/HISTORY: Thyroid nodule. PROCEDURE: Thyroid ultrasound. COMPARISON: [...] you for referring CHLOE AGARWAL to the [employer], [facility]. [facility], [id number] [facility], [place] [address] Name: ANY Mckinley : 1955 Gender: F Referring Provider: Sarah Nguyen Exam: ULTRASOUND THYROID Exam Start: 06 Accn: [id number] INDICATION/HISTORY: Thyroid nodule. PROCEDURE: Thyroid ultrasound. COMPARISON: Ultrasou nd 03/30/24. FINDINGS: Heterogeneous echote xture throughout an enlarged thyroid gland. Right thyroid [...] to assure ongoing stability. Transcribed by: ADILSON MONTESINOS 04/03/2025 11:08 Sincerely, Adria Patiño MD Electronically Yamileth d: 04/03/2025 11:35 Thank you for referr frandy AGARWAL to the [facility] MM tomosynthesis screening B I Reviewed date:12/14/2024 12:18:10 PM Interpretation: Performing Lab: Notes/Report: Source Facility: [facility] [place] [address] [place] [address] Mammography Report Signed Patient: ANYCHLOE Bruno MR#: [id number] : 1955 Acct:[id number] Age/Sex: 69 / F ADM Date: 12/14/24 Loc: MAMMO Attending Dr: Antionette Yang Ordering Physician: Antionette Yang Results: Date of Service: 12/14/24 Follow Up: Procedure(s): MM tomosynthesis screening BI Accession Number(s): [id number] cc: Antionette Yang; Vick Zelaya M.D. Patient Name: CHLOE AGARWAL MR#: [id number] : 1955 Exam Date: 12/14/2024 Ordering Doctor: [...] Treatments None Family Cancers None LOCATION: The [facility] BREAST COMPOSITION: There are scattered areas of [...] Signed By: 12/14/24 1148 DD/ 1147 TD/TT: Civil Litigation Attorney: [place] [address] Mammography Report Signed Patient: CHLOE AGARWAL MR#: [id number] : 1955 Acct:[id number] Age/Sex: 69 / F ADM Date: 12/14/24 Loc: MAMMO Attending Dr: Antionette Yang Ordering Physician: Antionette Yang Results: Date of Service: Follow Up: Procedure(s): MM tomosynthesis screening BI Accession Number(s): [id number] cc: Antionette Yang; Vick Zelaya M.D. Patient Name: CHLOE AGARWAL MR#: [id number] : 1955 Exam Date: 12/14/2024 Ordering Doctor: [...] Canc er Risk Not Reported. Personal Breast Cancer No Personal Ovarian Can cer No Treatments None Family Cancers None LOCATION: The [facility] BREAST COMPOSITION: There are scattered areas of [...] Signed By: 12/14/24 1148 DD/ 1147 TD/TT: Civil Litigation Attorney: Krista Milligan Ra te Reviewed date:11/09/2024 03:06:39 PM Interpretation: Performing Lab: Notes/Report: [facility] , Erythrocyte Sedimentation Rate 8 <=30 mm/hr Performing Lab: see note ML - The [facility] LB VITAMIN D 25 [place] Reviewed date:11/09/2024 03:06:39 PM Interpretation: Performing Lab: Notes/Report: The [facility] , Vitamin D 20.1 <20 ng/mL Vit D deficient 20-<30 ng/mL Vit D insufficient 30-100 ng/mL Vit D sufficient >100 ng/mL Potential Toxicity Performing Lab: see note ML - [facility] LB URIC ACID SERUM Reviewed date:11/09/2024 03:06:39 PM Interpretation: Performing Lab: Notes/Report: The [facility] , Uric Acid 5.3 2.6-6.0 mg/dL Performing Lab: see note ML - [facility] LB TSH Reviewed date:11/09/2024 03:06:39 PM Interpretation: Performing Lab: Notes/Report: The [facility] , Thyroid Stimulating Hormone 1.364 0.358-3.740 uIU/mL Performing Lab: see note ML - [facility] LB T4 Reviewed date:11/09/2024 03:06:39 PM Interpretation: Performing Lab: Notes/Report: The [facility] , T4 Thyroxine 9.20 4.80-13.90 ug/dL Performing Lab: see note ML - [facility] LB PROF 14(COMP METB) Reviewed date:11/09/2024 03:06:39 PM Interpretation: Performing Lab: Notes/Report: The [facility] , Sodium 142 136-145 mmol/L Potassium 4.0 [...] 1.4 Performing Lab: see note ML - The [facility] LB LIPID PROFILE Reviewed date:11/09/2024 03:06:39 PM Interpretation: Performing Lab: Notes/Report: The [facility] , Triglycerides 114 <=150 mg/dL Cholesterol 226 <=200 mg/dL HDL Cholesterol 59 40-60 mg/dL > or =60 mg/dl - LOW CARDIOVASCULAR RISK <40 mg/dl - HIGH CARDIOVASCULAR RISK LDL Cholesterol Calculated 145.0 <100 mg/dl OPTIMAL 100-129 mg/dl NEAR OR ABOVE OPTIMAL 130-159 mg/dl BORDERLINE HIGH 160-189 mg/dl HIGH >190 mg/dl VERY HIGH VLDL CHOLESTEROL 22.8 Chol HDL Ratio 3.8 3.3 - 4.4 LOW RISK 4.4 - 7.1 AVERAGE RISK 7.1 - 11.0 MODERATE RISK >11.0 HIGH RISK Performing Lab: see note ML - [facility] LB IRON Reviewed date:11/09/2024 03:06:39 PM Interpretation: Performing Lab: Notes/Report: The [facility] , Iron 74.0 50.0-170.0 ug/dL Performing Lab: see note ML - The [facility] LB FREE T3 Reviewed date:11/09/2024 03:06:39 PM Interpretation: Performing Lab: Notes/Report: The [facility] , Free T3 2.73 2.18-3.98 pg/mL Performing Lab: see note ML - The [facility] LB CRP Reviewed date:11/09/2024 03:06:39 PM Interpretation: Performing Lab: Notes/Report: The [facility] , C Reactive Protein <0.50 <=0.50 mg/dL Performing Lab: see note ML - The [facility] LB CBC AUTO DIFF Reviewed date:11/09/2024 03:06:39 PM Interpretation: Performing Lab: Notes/Report: The [facility] , White Blood Count 5.8 4.0-11.0 10 [...] Performing Lab: see note ML - The [facility] LB US biopsy thyroid Reviewed date:09/23/2024 04:23:27 PM Interpretation: Performing Lab: Notes/Report: Source Facility: [place] [address] [place] [address] Ultrasound Report Signed with Keon Patient: CHLOE AGARWAL MR#: [id number] : 1955 Acct:[id number] Age/Sex: 68 / F ADM Date: 09/02/24 Loc: US Attending Dr: JameeStaff Physician Jimenes Ordering Physician: Mayur Murphy M.D. Date of Service: 09/02/24 Procedure(s): US biopsy thyroid Accession Number(s): [id number] cc: Vick Zelaya M.D.; Mayur Murphy M.D. ADDENDUM The [place] [address] Patient Name: CHLOE AGARWAL MRN: [id number] date: 1955 Sex: F Assigned Patient Location: US Current Patient Location: US Accession/Order Number: [id number] Exam Date: 09/02/2024 08:38 Report Date: 09/23/2024 08:10 At the request of: NON-STAFF PHYSICIAN Procedure: US biopsy thyroid Begin Addendum #1 COLLECTED DATE: 09/03/2024 Final Diagnosis Report for [facility] [place], [place] Pathological Diagnosis: Nodule, right thyroid, fine needle aspiration: Unsatisfactory for evaluation. Too few epithelial cells. [place] category I. 09/07/[address] Zelaya. [...] when results are available. Addendum Dictated By: Kamra Coello M.D. Addendum Signed By: 09/23/24 0 812 Addendum Cosigned By: DD/ /11/810 TD/TT: / ADDENDUM US/US biopsy thyroid IMPRESSION: 1. Uneventful ultrasound guided fine needle aspiration (FNA). 2. Pathology results are pending. Electronically authenticated by: KAMAR COELLO Date: 09/23/2024 08:10 Addendum Dictated By: Kamar Coello M.D. Addendum Signed By: 09/23/24 0 812 Addendum Cosigned By: DD/ /11/810 TD/TT: / [address] [address] Patient Name: CHLOE AGARWAL MRN: [id number] date: 1955 Sex: F Assigned Patient Location: US Current Patient Location: Accession/Order Number: [id number] Exam Date: 09/02/2024 08:38 Report Date: 09/04/2024 [...] M.D. Signed By: 09/04/24926 DD/ 4 TD/TT: Civil Litigation Attorney: [place] [address] Ultrasound Report Signed with Keon Patient: CHLOE AGARWAL MR#: [id number] : 1955 Acct:[id number] Age/Sex: 68 / F ADM Date: 09/02/24 Loc: US Attending Dr: Joslyn Murphy M.D. Ordering Physician: Mayur Murphy M.D. Date of Service: 09/02/24 Procedure(s): US bio psy thyroid Accession Number(s): [id number] cc: Vick Zelaya M.D. ; Mayur Murphy M.D. ADDENDUM The [address] [address] Patient Name: CHLOE AGARWAL MRN: [id number] date: 1955 Sex: F Assigned Patient Location: US Current Patient Loca tion: US Accession/Order Numb er: [id number] Exam Date: 08:38 Report Date: 09/23/2024 08:10 At the request of: NON-STAFF PHYSICIAN Procedure: US biopsy thyroid Begin Addendum #1 COLLECTED DATE: 09/03/2024 Final Diagnosis Report for [facility] [place] [place] Pathological Diagnosis: Nodule, right thyroi d, fine needle aspiration: Unsatisfactory for evaluation. Too few epithelial c ells. [place] category I. 09/07/[address] Zelaya. Faxed to Dr. Harrison Hernandez. 09/19/2024, after multiple phone calls to confirm receipt, no one from Dr. Hernandez's office returned phone call. Original Report EXAMINATION: US biop sy thyroid HISTORY: Right Thyro id Nodule COMPARISON: No relev ant comparison available. TECHNIQUE: After obtaining informed consent, ultrasound-guided fine needle aspiration was perfo rmed in the usual sterile manner. FINDINGS: IMAGING: Ultrasound. BIOPSY NEEDLE: 25-ga uge; 3 separate passes LOCATION: Right thyr oid lobe 1. 5 cm heterogeneous nodule. SPECIMEN TYPE: Cellu lar tissue. LOCAL ANESTHETIC: Buffered Xylocaine. COMPLICATIONS: None. LABORATORY: Prepared slide smears and washings for cell block evaluation. OTHER: Negative. PATHOLOGY: Pending. An addendum will be added when results are available. Addendum Dictated By : Kamar Coello M.D. Addendum Signed By: 09/23/24 0 812 Addendum Cosigned By: DD/ /11/810 TD/TT: / ADDENDUM U S/US biopsy thyroid IMPRESSION: 1. Uneventful ultras ound guided fine needle aspiration (FNA). 2. Pathology results are pending. Electronically authenticated by: KAMAR COELLO Date: 09/23/2024 08:10 Addendum Dictated By : Kamar Coello M.D. Addendum Signed By: 09/23/24 0 812 Addendum Cosigned By: DD/ /11/810 TD/TT: / [address] [address] Patient Name: CHLOE AGARWAL MRN: [id number] date: 1955 Sex: F Assigned Patient Location: US Current Patient Location: Accession/Order Numb er: [id number] Exam Date: 08:38 Report Date: 09/04/2024 09:25 At the request of: NON-STAFF PHYSICIAN Procedure: US biopsy thyroid EXAMINATION: US biop sy thyroid HISTORY: Right Thyro id Nodule COMPARISON: No relev ant comparison available. TECHNIQUE: After obtaining informed consent, ultrasound-guided fine needle aspiration was perfo rmed in the usual sterile manner. FINDINGS: IMAGING: Ultrasound. BIOPSY NEEDLE: 25-ga uge; 3 separate passes LOCATION: Right thyr oid lobe 1.5 cm heterogeneous nodule. SPECIMEN TYPE: Cellu lar tissue. LOCAL ANESTHETIC: Buffered Xylocaine. COMPLICATIONS: None. LABORATORY: Prepared slide smears and washings for cell block evaluation. OTHER: Negative. PATHOLOGY: Pending. An addendum will be added when results are available. U S/US biopsy thyroid IMPRESSION: 1. Uneventful ultras ound guided fine needle aspiration (FNA). 2. Pathology results are pending. Electronically authenticated by: KAMAR COELLO Date: 09/04/2024 09:25 Dictated By: Kamar Coello M.D. Signed By: 09/04/24926 DD/ 4 TD/TT: Civil Litigation Attorney: PTT Reviewed date:01/10/2025 12:10:38 PM Interpretation: Performing Lab: Notes/Report: The [facility] , Partial Thromboplastin Time 25.1 22.3-36.2 sec Performing Lab: see note ML - The [facility] LB PROF 14(COMP METB) Reviewed date:01/10/2025 12:10:38 PM Interpretation: Performing Lab: Notes/Report: The [facility] , Sodium 141 136-145 mmol/L Potassium 3.8 [...] 1.1 Performing Lab: see note ML - The [facility] LB CBC AUTO DIFF Reviewed date:01/10/2025 12:10:38 PM Interpretation: Performing Lab: Notes/Report: [facility] , White Blood Count 6.6 4.0-11.0 10 [...] see note ML - [facility] LB PTT Reviewed date:11/09/2024 03:06:39 PM Interpretation: Performing Lab: Notes/Report: [facility] , Partial Thromboplastin Time 25.4 22.3-36.2 sec Performing Lab: see note ML - [facility] LB T3 FREE, T4 FREE and TSH Reviewed date:10/06/2024 11:56:14 AM Interpretation: Performing Lab:[facility], [address] , [place], [place], [id number] Notes/Report: FACILITY: [facility] [id number] T3 - FREE 3.89 (2.45 - 5.93) PG/ML T4 - FREE 1.32 (0.78 - 2.44) UG/DL hTSH 0.229 (0.470 - 4.680) mIU/L Reason For Referral Reason ref to [facility], pacs im ages pushed Diagnosis 1 Thyroid nodule (E04. 1) Referral Organization Endocrinology Referring Provider First Name [facility] Referring Provider Last Name [facility] Provider [facility] General Notes Isabel Bruno 07/11/20 24 04:43:09 PM >sent to [facility] Referral Priority Routine Reason Ref to [facility] CS pushed. Diagnosis 1 Thyroid nodule (E04. 1) Referral Organization Endocrinology Referring Provider First Name [facility] Referring Provider Last Name [facility] Referring Provider Speciality Endocrinol ogy Referred Provider Specialty [facility] Referral Priority Routine Reason Pacs pushed, please call pt to schedule Diagnosis 1 Thyroid nodule (E04. 1) Referral Organization Endocrinology Referring Provider First Name [facility] Referring Provider Last Name [facility] Referring Provider Speciality Endocrinol ogy Referred Provider Specialty [facility] Referral Priority Routine Diagnosis 1 Positive DARIEL (antinu clear antibody) (R76.8) Referral Organization [facility] Referring Provider First Name Gilberto Referring Provider Last Name Nathalie [facility] Boo Godoy Referred Provider Specialty Rheumatology Referral Priority Routine Diagnosis 1 Positive DARIEL (antinu clear antibody) (R76.8) Referral Organization [facility] Referring Provider First Name Gilberto Referring Provider Last Name Crkarel [facility] Referred Provider Boo Godoy Referred Provider Specialty Rheumatology Referral Priority Routine Medications Medication SIG (Take, Route, Frequency, Duration) Notes Start Date End Date Status Meclizine HCl 25 MG 1 tablet as needed O rally Q 6 hours 05/12/2025 Active methIMAzole 5 MG 1 tablet Orally Twic e Daily for 30 days Active Pantoprazole Sodium 40 mg TAKE 1 TABLET BY MOUTH TWICE DAILY FOR 30 DAYS for 30 Active Metoprolol Succinate ER 50 mg TAKE 2 TABLETS BY MOUTH DAILY for 30 Active Aspirin 325 MG 1 capsule Orally Onc e a day Active Social History Tobacco Use: Social History [...] Problem Status W/U Status Risk Notes Problem 51230546 Essential (primary) hypertension (I10) Active confirmed Problem 120792507 Gastro-esophagea l reflux disease without esophagitis (K21.9) Active confirmed Problem 09726872 Calculus of gallbladder without cholecystitis without obstruction (K80.20) Active confirmed Problem 271857572 Unspecified osteoarthritis, unspecified site (M19.90) Active confirmed Problem 211290837 Spondylolisthesi s , lumbosacral region (M43.17) Active confirmed Problem Mitral regurgitation (80951612) Mitral regurgitation (I34.0) Active confirmed Problem Restless legs syndrome (59075095) Restless leg syndrome (G25.81) Active confirmed Problem Sleep apnea (29895589) Sleep apnea (G47.30) Active confirmed Problem Thyroid function tests abnormal (529564394) Low TSH level (R94.6) Active confirmed Problem Thyroid nodule (689903377) Thyroid nodule (E04.1) Active confirmed Problem Cellulitis (058971768) Cellulitis (L03.90) Active confirmed Problem Hyperthyroidism (54830033) Hyperthyroidism (E05.90) Active confirmed Problem Graves disease (007462152) Graves disease (E05.00) Active confirmed Problem Contact dermatitis (31786113) Contact dermatitis (L25.9) Active confirmed Problem Irritable bowel (09565729) Irritable bowel (K58.9) Active confirmed Problem Cardiomegaly (6242394) Atrial enlargement, left (I51.7) Active confirmed Problem Degeneration of spine (387946919) Degeneration of spine (M47.819) Active confirmed Problem Acquired spondylolisthesis (506127885) Anterolisthesis of lumbar spine (M43.16) Active confirmed Problem Easy bruising (433484293) Easy bruisability (R23.3) Active confirmed Vital Signs Heart Rate 78 /min 04/13/2025 Oximetry 99 % 10/06/2024 Blood pressure diastolic 86 mm Hg 05/02/2025 Height 60 in 05/02/2025 Blood pressure systolic 146 mm Hg 05/02/2025 Weight 140 lbs 05/02/2025 BMI 27.34 kg/m2 05/02/2025 Procedures Procedure Date Ordered Date Performed Result Body Sit e Fine Needle Biopsy 07/27/2024 N/A Fine Needle Biopsy 08/22/2024 N/A EKG w Interp & Report - performed 01/10/2025 N/ A Encounters Encounter Location Date Provider Diagnosis [facility] [address] [place] [address] 10/03/2024 Gilberto Hoy Spondylolisthesis, lumbosacral region M43.17 and Cellulitis L03.[address] [place] [address] 10/06/2024 Purnimaisonancy Nguyen Low TSH level R94.6 and Thyroid nodule E04.[address] [place] [address] 04/13/2025 Maisoon Terellfah Low TSH level R94.6 and Thyroid nodule E04.[address] [place] [address] 07/04/2024 Maisoon Maryh Low TSH level R94.6 and Thyroid nodule E04.1 [facility] [address] [place] [address] 11/08/2024 Gilberto Hoy Essential (primary) hypertension I10 ; Thyroid nodule E04.1 ; Restless leg syndrome G25.81 ; Easy bruisability R23.3 and Gastro-esophageal reflux disease without esophagitis K21.9 [facility] [address] [place] [address] 11/14/2024 Gilberto Hoy Irritable bowel K58. 9 [facility] [address] [place] [address] 01/10/2025 Gilberto Hoy Pre-op examination Z01.[address] [address] 05/02/2025 Gilberto Hoy Hyperthyroidism E05. 90 [facility] [address] [place] [address] 10/06/2024 Lab Provider Radiology [facility] [address] [place] [address] 04/03/2025 Radiology Provider Nontoxic single thyroid nodule E04.1 [facility] [address] [place] [address] 06/24/2024 Gilberto Hoy Restless leg syndrom e G25.81 and Essential (primary) hypertension I10 [address] [place] [address] 07/11/2024 Maisonancy Hernandezh Thyroid nodule E04.1 [facility] [address] [place] [address] 07/12/2024 Gilberto Hoy Endocrinology [address] [place] [address] 07/27/2024 Maisoon Terellfah Thyroid nodule E04.[address] [place] [address] 08/08/20[facility] End[facility]ology [address] [place] [address] 08/15/2024 [facility] Endocr[facility]ology [address] [place] [address] 08/22/2024 [facility] Thyroid nodule E04.1 [facility] [address] [facility] [place] [address] 09/04/[address] [facility] [address] [facility] [place] [address] 09/07/[address] [facility] [address] [facility] [place] [address] 09/23/2024 Gilberto Zelaya [facility] [address] [place] [facility] [address] 10/18/2024 Gilberto Cry Spondylolisthesis, lumbosacral region M43.17 [facility] [address] [facility] [place] [address] 11/09/2024 Gilberto [facility] [address] [facility] [place] [address] 11/11/2024 Gilberto Hoy Positive DARIEL (antinuclear antibody) R76.8 [facility] [address] [facility] [place] [address] 11/13/[address] [facility] [address] [facility] [place] [address] 11/14/2024 Gilberto Hoy Positive DARIEL (antinuclear antibody) R76.8 [facility] [address] [facility] [place] [address] 01/10/[address] [facility] [address] [facility] [place] [address] 01/13/[address] [facility] [address] [facility] [place] [address] 04/17/[address] [facility] [address] [facility] [id number] 04/24/[address] [facility] [address] [place] [address] 04/24/[address] [facility] [address] [place] [address] 04/25/[address] [facility] [address] [place] [address] 05/02/2025 Gilberto Zelaya [facility] [address] [place] [facility] [place] [address] 05/12/2025 Gilberto Zelaya [facility] [address] [place] [address] 05/15/2025 Sarah Nguyen [facility] [address] [place] [facility] [place] [place] [address] 05/23/2025 Gilberto Zelaya Assessments Encounter Date Diagnosis (ICD Code) Assessment Notes Treatment Notes Treatment Clinical Notes Section Notes 07/04/2024 Low TSH level (ICD-10 - R94.6) [...] FNA for further evaluation. Will refer to [facility] 06/24/2024 Restless leg syndrome (ICD-10 - G25.81) [...] is asymptomatic. Repeat TFTS are pending 10/03/2024 Spondylolisthesis, lumbosacral region (ICD-10 - M43.17) kenalog and [...] Nontoxic single thyroid nodule (ICD-10 - E04.1) 05/02/2025 Hyperthyroidism (ICD-10 - E05.90) 07/11/2024 Thyroid nodule (ICD-10 - E04.1) 07/27/2024 Thyroid nodule (ICD-10 - E04.1) 08/22/2024 Thyroid nodule (ICD-10 - E04.1) 10/18/2024 Spondylolisthesis, lumbosacral region (ICD-10 - M43.17) 11/11/2024 Positive [...] IRON, TOTAL 11/08/2024 LIPID PANEL (CHOL/TRIG/HDL/LDL) 11/08/19 CBC WITH DIFF 11/08/2024 CBC WITH DIFF [...] PANEL (T4/TSH/FREE T3) THYROID PANEL (T4/TSH/FREE T3) 5 THYROID PANEL (T4/TSH/FREE T3) 5 US abdominal aortic aneurysm 10/30/2023 CMP (COMP MET MERCEDES) w/eGFR CKD-EPI 2024 Future Test Test Name Order Date T3 FREE, T4 FREE and TSH 10/03/2024 Insurance Providers Payer Name Payer Address Payer Phone Subscriber Number Group Number Insured Name Patient Relationship to Insured Coverage Start Date Coverage End Date [place]IC[place] [address] [place] [place] [address] [id number] Chloe Lowe Self - patient is the insured 2 [facility] [address] [place] [address] [phone] [id number] Chloe Lowe Self - patient is the [...] htn kidney stones Surgical History Surgery Date(Month/Year) Right Hip Bursa- Dr. Trammell 04/20/2023 bilat knee replacements appendix kidney stone with stent 1999 back surgery 01/30/2025 Esophagogastroduodenoscopy 03/2023 Hospitalization History Reason Date(Month/Year) with surgeries
--- OUTSIDE RECORDS SUMMARY | 2025-05-29 09:41 | XMS_ITS | Encounter Summary ---
Author Organization [facility] Address [address] [place] [address] Care Team Providers Care Adjunct Instructor In Economics Name Role Phone Vick Zelaya MD Primary Care Provider [phone] Encounter Details Date Type Department Care Team ([facility] Contact Info) Description 12/23/2024 Abstract EUGENIE WELLINGTON [address] [place] [phone] Antionette Yang PA [address] [facility] [address] [place], [place] [id number] Social History Tobacco Use Types Packs/Day Years [...] EST Office Visit [facility]ha WE[facility] [address] [place] [phone] Antionette Yang PA [address] [facility] [address] documented as of this encounter Visit Diagnoses Not on filedocumented in this encounter Care Teams Adjunct Instructor In Economics Relationship Specialty Start Date End Date Vick Zelaya MD PCP - General Family Medicine 05/21/23 documented as of this encounter
--- OUTSIDE RECORDS SUMMARY | 2025-05-29 09:41 | XMS_ITS | Encounter Summary ---
Author Organization [facility] Address [address] [place] [address] Phone Care Team Providers Care Mineral Wool Insulation Supervisor Name Role Phone Vick Zelaya MD Primary Care Provider [phone] Encounter Details Date Type Department Care Team (Late st Contact Info) Description 11/15/2024 Scanned Document [facility] [address] [place] [phone] Scanning, Generic Provider Social History Tobacco Use [...] Description 12/07/2025 3:00 PM EST Office Visit [place] [id number] [facility] [address] [place] [phone] James Ayoub MD [address] [facility] [address], [facility] [address] [place], [place] [id number] documented as of this encounter Visit Diagnoses Not on filedocumented in this encounter Care Teams Mineral Wool Insulation Supervisor Relationship Specialty Start Date End Date Vick Zelaya MD [address] [facility] [place] [address] PCP - General Family Medicine 05/02/25 documented as of this encounter
--- OUTSIDE RECORDS SUMMARY | 2025-05-29 09:41 | XMS_ITS | Clinical Summary ---
Author Organization [employer] tem Address [id number] [address] [place] [address] Care Team Providers Care American Indian Policy Specialist Name Role Phone Unavailable Primary Care Provider [...] Medical Devices Not on file Insurance MEDICARE [facility]
[2025-05-29 10:53] LABS: Free T3 3.18 pg/mL (2.18-3.98); Thyroid Stimulating Hormone <0.007 uIU/mL (0.358-3.740)
== END 2025-05-29 09:35 | disposition home or self-care (01) ==
PROVIDERS: PCP Family Medicine; Visit Provider Family Medicine
DX: E05.90 Thyrotoxicosis, unspecified without thyrotoxic crisis or storm (principal)
CPT/HCPCS: 36415; 84436; 84443; 84481

== ENCOUNTER 2025-07-10 09:17 | Outpatient (OUT) | payer MEDICARE, SELFPAY ==
--- OUTSIDE RECORDS SUMMARY | 2025-07-10 09:26 | XMS_ITS | CCD ---
Author Organization [facility] Care Team Providers Care Terminal System Operator Name Role Phone Adryan Yoon Unavailable Unavailable ClevelandjaspalAdryan Unavailable Unavailable VICK MCGHEE Unavailable Unavailable Fernie Sandoval Unavailable Unavailable Vick Mcghee Primary Care Physician [phone] BRICE ., DR RANGEL Admitting Unavailabl e KARASIK ., DR RANGEL Consulting Unavailabl e KARASIK ., DR RANGEL Attending Unavailabl e MISC, DR MORRISSEY Primary Care Unavailable HOY ., DR SATNOYO Primary Care Unavailable ZIEBER, DR RYAN Billingsley Consulting Unavailable NILL ., DR GUZMÁN Admitting Unavailable NILL ., DR GUZMÁN Attending Unavailable NILL ., DR GUZMÁN Consulting Unavailable HOY ., DR SANTOYO Primary Care Unavailable HOY ., DR SANTYOO Consulting Unavailable HOY ., DR SANTOYO Attending [...] Unavailable Vick Mcghee MD Primary Care Provider [phone] NON STAFF Attending Provider Unavailable Claudio Monroe Attending Unavailable Claudio Monroe Admitting Unavailable Darshan Laughlin Attending Unavailable Vick Mcghee Referring Unavailable Claudio Monroe Attending Unavailable Claudio Monroe Admitting Unavailable NONE, XXXX Referring Unavailable Lokesh Mcqueen Attending Unavailable Lokesh Mcqueen Admitting Unavailable SAM KAISER Attending Unavailable SAM KAISER Admitting Unavailable WERSAM MCKINNON Referring Unavailable OJUKWU, Mbanefo Attending Unavailable OJUKWU, Mbanefo Admitting Unavailable [facility] Cardio, XXXX Consulting Unavailable Vick Mcghee MD Primary Care Provider [phone] Boo Godoy MD Attending Provider NON STAFF Attending Unavailable Vick Mcghee Primary Care Unavailable NON STAFF Admitting Unavailable Boo Godoy Admitting Unavailable Boo Godoy Attending Unavailable Vick Mcghee Primary Care Unavailable Vick Mcghee MD Primary Care Provider [phone] MD Radu Kurtz Attending Unavailable Baldomero Hurtado Admitting Unavailable NONE, XXXX Referring Unavailable Lokesh Mcqueen Referring Unavailable Lokesh Mcqueen Admitting Unavailable Lokesh Mcqueen Attending Unavailable Baldomero Hurtado Consulting Unavailable Jayden Santos Admitting Unavailable Jayden Santos Attending Unavailable Bryant, Baldomero Consulting Unavailable Bryant, Baldomero Consulting Unavailable [facility] Cardio, XXXX Consulting Unavailable ANTIONETTE YANG Attending Unavailable SOFI PYLE Attending Unavailable KATH CARSON Referring Unavailable KENNY BANGURA Attending Unavailable SOM, [...] Attending Unavailable SOM, KATH Billingsley Referring Unavailable Vick Mcghee MD Primary Care Provider [phone] YODIT SAL Attending Unavailable VICK MCGHEE Primary Care Unavailable Allergies Allergy Classification Reported Allergen(s) Allergy Type Date of Onset Reaction(s) Facility (1 source) Sulfonamide; Translations: [sulfonamide] Propensity to adverse reactions to drug (disorder) [facility] Repository (20 sources) Sulfonamides (Antibiotic); Translations: [sulfa drugs] Drug allergy unknown [facility] (20 sources) Lisinopril; Translations: [lisinopril] Drug Allergy 3 Coughing - function (qualifier value), Cough [facility] (1 source) Sulfonamides (Antibiotic) Drug allergy (disorder) [facility] Repository (20 sources) gabapentin; Translations: [gabapentin] Drug Allergy 3 Headache (finding), Headache, Cardiac arrhythmia/arre st [facility] (20 sources) Lisinopril Propensity to adverse reactions 3 [facility] (20 sources) Sulfonamides (Antibiotic) Drug Allergy 3 Unknown [facility] (14 sources) Baclofen; Translations: [baclofen] Drug Allergy 5 Hand pain (finding), Menopausal flushing (finding), Bilateral weakness of upper limbs, Weakness of bilateral lower limb, Numbness of limbs (finding), Nausea/vomiting [facility] (20 sources) DULoxetine; Translations: [duloxetine] Drug Allergy 4 Vomiting (disorder), Other [facility] (20 sources) Baclofen Drug Allergy [address] [facility] (1 source) Sulfonamides (Antibiotic); Translations: [SULFA (SULFONAMIDE ANTIBIOTICS)] Propensity to adverse reactions to drug (disorder) 3 [facility] 3 Repository Medications Current Medications Medication Drug Class(es) Dates [...] Daily, # 30 tab(s), Refills(s) 2, Pharmacy: [facility], 152, cm, 10/05/24 11:36:00 EST, Height/Length Dosing, 75.8, kg, 10/05/24 11:40:00 EST, Weight Dosing Start Date: 10/05/24 Status: Ordered aspirin 81 mg delayed release oral tablet (2 sources) Platelet Aggregation Inhibitor, Nonsteroidal Anti-inflammatory Drug Start: 05-02-2025 take 1 tablet by mouth once daily aspirin 81 mg EC tablet Indications: Chest pain, unspecified type Take 1 tablet (81 mg) by mouth once daily. 90 tablet 3 05/02/2025 Active End: 05-02-2025 take 1 tablet by mouth once daily aspirin 325 mg tablet Take 1 tablet (325 mg) by mouth once daily. 05/02/2025 Discontinued (Dose adjustment) cephalexin 500 mg oral capsule (1 source) Cephalosporin Antibacterial Start: 05-08-2024 End: 05-13-2024 take 1 capsule by mouth every twelve hours Keflex 500 mg Cap 500 mg = 1 cap(s), Oral, q12hr, X 5 day(s), # 10 cap(s), Refills(s) 0, Pharmacy: [facility], 152, cm, 05/08/24 7:24:00 EDT, Height/Length Dosing, 77.2, kg, 05/08/24 7:33:00 EDT, Weight Dosing Start Date: 05/08/24 Stop Date: 05/13/24 Status: Ordered cloNIDine hydrochloride 0.1 mg oral tablet (2 sources) Central alpha-2 Adrenergic Agonist Start: 11-03-2024 take 1 tablet by mouth twice daily cloNIDine 0.1 mg tab 0.1 mg = 1 tab(s), Oral, BID, # 60 tab(s), Refills(s) 5, Pharmacy: [facility], 152, cm, 10/05/24 11:36:00 EST, Height/Length [...] BID, # 60 cap(s), Refills(s) 0, Pharmacy: [facility], 152, cm, 05/04/23 8:55:00 EDT, Height/Length [...] anxiety, # 40 cap(s), Refills(s) 0, Pharmacy: [facility], 75.8, cm, 11/15/24 13:21:00 EST, Height/Length [...] day(s), # 9 tab(s), Refills(s) 0, Pharmacy: [facility], 152, cm, 05/08/24 7:24:00 EDT, Height/Length Dosing, 77.2, kg, 05/08/24 7:33:00 EDT, Weight Dosing Start Date: 05/08/24 Stop Date: 05/11/24 Status: Ordered losartan potassium 100 mg oral tablet (20 sources) Angiotensin 2 Receptor Hermilo Start: 01-03-2025 take 1 tablet by mouth at bedtime losartan 100 mg Tab 100 mg = 1 tab(s), Oral, Bedtime, # 90 tab(s), Refills(s) 3, Pharmacy: [facility], 75.8, cm, 11/15/24 13:21:00 EST, Height/Length Dosing, 78.5, kg, 11/15/24 13:21:00 EST, Weight Dosing Start Date: 01/03/25 Status: Ordered Quantity: 90.0 Unit: tab(s) Repeat number: 4 Indication: Essential (primary) hypertension Start: 07-13-2024 take 1 tablet by herberth th at bedtime losartan 100 mg Tab 100 mg = 1 tab(s), Oral, Bedtime, # 90 tab(s), Refills(s) 3, Pharmacy: [facility], 152, cm, 07/13/24 15:04:00 EDT, Height/Length Dosing, 75, kg, 07/13/24 15:04:00 EDT, Weight Dosing Start Date: 07/13/24 Status: Ordered Start: 12-18-2023 take 1 tablet by herberth th at bedtime losartan 100 mg Tab 100 mg = 1 tab(s), Oral, Bedtime, # 90 tab(s), Refills(s) 3, Pharmacy: [facility], 152, cm, 12/18/23 13:31:00 EST, Height/Length Dosing, 79.2, kg, 12/18/23 13:37:00 EST, Weight Dosing Start Date: 12/18/23 Status: Ordered Start: 07-14-2023 take 1 tablet by herberth th at bedtime losartan 100 mg Tab 100 mg = 1 tab(s), Oral, Bedtime, # 90 tab(s), Refills(s) 1, Pharmacy: [facility], 152, cm, 07/14/23 9:26:00 EDT, Height/Length Dosing, 76.9, kg, 07/14/23 9:26:00 EDT, Weight Dosing Start Date: 07/14/23 Status: Ordered Start: 06-30-2023 End: 07-30-2023 take 1 tablet by mouth twice daily losartan 50 mg Tab 50 mg = 1 tab(s), Oral, BID, X 30 day(s), # 60 tab(s), Refills(s) 0, Pharmacy: [facility], 152, cm, 06/30/23 15:07:00 EDT, Height/Length Dosing, 77.5, kg, 06/30/23 15:07:00 EDT, Weight Dosing Start Date: 06/30/23 Stop Date: 07/30/23 Status: Ordered Start: 06-05-2023 End: 07-05-2023 take 1 tablet by mouth once daily losartan 50 mg Tab 50 mg = 1 tab(s), Oral, Daily, X 30 day(s), # 30 tab(s), Refills(s) 0, Pharmacy: [facility], 152.4, cm, 06/05/23 8:54:00 EDT, Height/Length Dosing, 73, kg, 06/05/23 8:54:00 EDT, Weight Dosing Start Date: 06/05/23 Stop Date: 07/05/23 Status: Ordered Start: 11-05-2022 End: 10-31-2023 take 1 tablet by mouth once daily Cozaar 25 mg Tab 25 mg = 1 tab(s), Oral, Daily, stopping Lisinopril Starting Cozaar, X 90 day(s), # 90 tab(s), Refills(s) 3, Pharmacy: [facility], 152, cm, 11/05/22 11:35:00 EST, Height/Length [...] dizziness, # 30 tab(s), Refills(s) 0, Pharmacy: [facility], 152, cm, 05/08/24 7:24:00 EDT, Height/Length Dosing, 77.2, kg, 05/08/24 7:33:00 EDT, Weight Dosing Start Date: 05/08/24 Status: Ordered meloxicam 15 mg oral tablet (2 sources) Nonsteroidal Anti-inflammatory Drug Start: 12-18-2023 take 1 tablet by mouth once daily meloxicam 15 mg Tab 15 mg = 1 tab(s), Oral, Daily, # 30 tab(s), Refills(s) 0 Start Date: 12/18/23 Status: Ordered methIMAzole 5 mg oral tablet (1 source) Thyroid Hormone Synthesis Inhibitor Start: 04-25-2025 take 1 tablet by mouth every twelve hours methIMAzole (Tapazole) 5 mg tablet Take 1 tablet (5 mg) by mouth every 12 hours. 04/25/2025 Active methylPREDNISolone 4 mg oral tablet (1 source) Corticosteroid Start: 09-22-2023 End: 09-28-2023 Medrol 4 mg Tab = 1 packet(s), Oral, As Directed, as directed on package labeling, X 6 day(s), # 21 tab(s), Refills(s) 0, Pharmacy: [facility], 152, cm, 09/22/23 11:39:00 EST, Height/Length [...] Daily, # 30 tab(s), Refills(s) 0, Pharmacy: [facility], 75.8, cm, 11/15/24 13:21:00 EST, Height/Length Dosing, 78.5, kg, 11/15/24 13:21:00 EST, Weight Dosing Start Date: 11/16/24 Status: Ordered Quantity: 30.0 Unit: tab(s) Repeat number: 1 Start: 11-16-2024 take 1 tablet by herberth once daily metoprolol succinate 50 mg ER Tab 50 mg = 1 tab(s), Oral, Daily, # 30 tab(s), Refills(s) 0, Pharmacy: [facility], 75.8, cm, 11/15/24 13:21:00 EST, Height/Length Dosing, 78.5, kg, 11/15/24 13:21:00 EST, Weight Dosing Start Date: 11/16/24 Status: Ordered Quantity: 30.0 Unit: tab(s) Repeat number: 1 Start: 11-17-2023 take 2 tablets by mo [facility] once daily metoprolol succinate 50 mg ER Tab 100 mg = 2 tab(s), Oral, Daily, # 180 tab(s), Refills(s) 3, Pharmacy: [facility], 152, cm, 07/13/24 15:04:00 EDT, Height/Length Dosing, 75, kg, 07/13/24 15:04:00 EDT, Weight Dosing Start Date: 07/13/24 Status: Ordered Start: 06-30-2023 End: 12-27-2023 take 1 tablet by mouth once daily metoprolol 50 mg ER Tab 50 mg = 1 tab(s), Oral, Daily, # 90 tab(s), Refills(s) 1, Pharmacy: [facility], 152, cm, 07/14/23 9:26:00 EDT, Height/Length Dosing, 76.9, kg, 07/14/23 9:26:00 EDT, Weight Dosing Start Date: 07/14/23 Status: Ordered Start: 11-14-2022 take 1 tablet by herberth th once daily metoprolol 25 mg ER Tab 25 mg = 1 tab(s), Oral, Daily, # 90 tab(s), Refills(s) 3, Pharmacy: [facility], 152, cm, 11/05/22 11:35:00 EST, Height/Length Dosing, 76, kg, 11/05/22 11:35:00 EST, Weight Dosing Start Date: 11/14/22 Status: Ordered Start: 10-08-2021 End: 10-03-2022 take 1 tablet by mouth once daily Toprol XL 25 mg Tab-ER 25 mg = 1 tab(s), Oral, Daily, X 90 day(s), # 90 tab(s), Refills(s) 3, Pharmacy: [facility], 152, cm, 10/08/21 13:49:00 EST, Height/Length [...] tablet (20 sources) Proton Pump Inhibitor Start: 06-29-2021 take 1 tablet by mouth twice daily Protonix 40 mg Tab-DR 40 mg = 1 tab(s), Oral, BID, # 120 tab(s), Refills(s) 0, Pharmacy: [facility], 152.4, cm, 04/01/21 7:20:00 EDT, Height/Length [...] BID, # 60 cap(s), Refills(s) 0, Pharmacy: [facility], 152, cm, 10/26/23 13:07:00 EST, Height/Length [...] QID, # 120 tab(s), Refills(s) 3, Pharmacy: [facility], 152, cm, 04/03/23 9:20:00 EDT, Height/Length [...] q8hr, # 12 tab(s), Refills(s) 0, Pharmacy: [facility], 152, cm, 05/08/24 7:24:00 EDT, Height/Length [...] day(s), # 90 tab(s), Refills(s) 0, Pharmacy: [facility], 152, cm, 07/06/24 15:10:00 EDT, Height/Length [...] day(s), # 60 cap(s), Refills(s) 0, Pharmacy: [facility], 152, cm, 07/06/24 15:10:00 EDT, Height/Length [...] W/O CHOLECYST W/O OBST] Onset: 3 Episodic Cardiac dysrhythmias (4 sources) Ventricular arrhythmia; Translations: [Ventricular premature depolarization] Onset: 5 05-02-2025 Chronic Conditions associated with dizziness or vertigo (20 [...] index 30+ - obesity 03-08-2021 Chronic Other nutritional; endocrine; and metabolic disorders (2 sources) Overweight in adulthood with body mass index of 25 or more but less than 30; Translations: [Body mass index (BMI) 27.0-27.9, adult] Onset: 5 05-02-2025 Episodic Other nutritional; endocrine; and metabolic disorders (2 sources) Body mass index (BMI) 27.0-27.9, adult; Translations: [Body mass index (BMI) 27.0-27.9, adult] Onset: 5 Episodic Other screening for suspected conditions (not mental [...] unspecified; Translations: [Pain, unspecified] Onset: 4 Episodic Residual codes; unclassified (2 sources) Never smoked tobacco; Translations: [Other specified health status] Onset: 5 05-02-2025 Episodic Residual codes; unclassified (2 sources) Other specified health status; Translations: [Other specified health status] Onset: 5 Episodic Spondylosis; intervertebral disc disorders; other back problems (15 sources) Lumbar spondylosis with myelopathy; Translations: [Other spondylosis with myelopathy, lumbar region] 03-14-2025 Chronic Thyroid disorders (2 sources) Hyperthyroidism; Translations: [Thyrotoxicosis, unspecified without thyrotoxic crisis or storm] Onset: 5 05-02-2025 Chronic Unclassified (20 sources) Patient encounter status [...] [CONTACT W/AND (SUSP) EXPOS COVID-19] Onset: 11-05-2022 Unclassified (1 source) Onset: 05-02-2025 05-02-2025 Results Test Name Value Interpretation Reference Range Facility ECG 12 Leadon 05-02-2025 Normal sinus rhythm with PVCs. QTc intervals [address] [facility] Work Phone: Heart and Vascular Office/Cl inic Noteon 04-03-2025 Heart and Vascular Office/Clinic [...] (COVID-19) mRNA BNT-162b2 vax 07/02/2021 Recorded Normal [facility] Comment on above: Result Comment: Elec tronically Signed By: Jerardo CANTRELL, Radu Parra\.br\Date and Time Signed: 04/03/25 19:22 EDT DARIEL Antinuclear Antibodieson 01-17-2025 Antinuclear Abs, IFA Positive Critically abnormal . [facility] Comment on above: Result Comment: Nega tive <1:80 Borderline 1:80 Positive >1:80 Performed By: #### C H50, TPO, RA, DARIEL, C3, C4, THYGLOB AB, CARDIO GMA, CCP, B2 GLYPROT, CHROMATIN #### [facility] , Note 1 Comment Normal . [facility] Comment on above: Result Comment: Seema chavez Potential Disease Association Homogeneous Systemic Lupus Erythematosus, Drug Induced Systemic Lupus Erythematosus, Chronic Autoimmune hepatitis, Juvenile Idiopathic Arthritis Speckled Sjogren Syndrome, Systemic Lupus Erythematosus, Subacute Cutaneous Lupus, Lupus, Congenital Heart Block, Mixed Connective Tissue Disease, Scleroderma-diffuse, Scleroderma-Autoimmune Myositis Overlap Syndrome, Systemic Lupus Dldhjpqdcijux-Ivnqtvqhjbx-Wblpdgator Myositis Overlap Syndrome, Systemic Autoimmune Rheumatic Disease, [...] Cytopenias, Linear Scleroderma, Antiphospholipid Syndrome Performed at: [address] [id number] Designer: Raul Nieves PhD, Phone: [phone] Performed By: #### C H50, TPO, RA, DARIEL, C3, C4, THYGLOB AB, CARDIO GMA, CCP, B2 GLYPROT, CHROMATIN #### [facility] , Speckled Pattern 1:80 Normal . [facility] Comment on above: Result [...] [Enzymatic activity/volume] in Serum or Plasma 7 [facility] Albumin [Mass/volume] in Ser um or Plasma by Bromocresol green (BCG) dye binding methoOrdered By: Boo Godoy on 01-17-2025 Albumin BCG dye [Mass/Vol] Albumin [Mass/volume] in Serum or Plasma by Bromocresol green (BCG) dye binding metho 3.5-5.7 [facility] Aldolaseon 01-17-2025 Aldolase 4.8 U/L Normal 3.3-10.3 [facility] Comment on above: Result Comment: Perf ormed at: - [facility] [address] [id number] Designer: Raul Nieves PhD, Phone: [phone] PERFORMED BY: [address] [address] PATHOLOGIST DE ICER ELEMENT WINDER RHONDA BAUER M.D. Performed By: #### C H50, TPO, RA, DARIEL, C3, C4, THYGLOB AB, CARDIO GMA, CCP, B2 GLYPROT, CHROMATIN #### [facility] , Alkaline phosphatase [Enzyma tic activity/volume] in Serum or PlasmaOrdered By: Boo Godoy on 01-17-2025 ALP [Catalytic activity/Vol] Alkaline phosphatase [Enzymatic activity/volume] in Serum or Plasma 34-104 [facility] Anti-Centromere B Antibodies on 04-01-2025 Anti-Centromere B Antibodies <0.2 Normal 0.0-0.9 [facility] Comment on above: Result Comment: Perf ormed at: - [facility] [address] [id number] Designer: Raul Nieves PhD, Phone: [phone] Performed By: #### C H50, TPO, RA, DARIEL, C3, C4, THYGLOB AB, CARDIO GMA, CCP, B2 GLYPROT, CHROMATIN #### [facility] , Anti-RNPon 01-17-2025 Anti-TILT TRAY DRIVER <0.2 Normal 0.0-0.9 [facility] Comment on above: Performed By: #### C H50, TPO, RA, DARIEL, C3, C4, THYGLOB AB, CARDIO GMA, CCP, B2 GLYPROT, CHROMATIN #### [facility] , Anti-Anders Antibodieson Anti-Anders Antibodies <0.2 Normal 0.0-0.9 [facility] Comment on above: Performed By: #### C H50, TPO, RA, DARIEL, C3, C4, THYGLOB AB, CARDIO GMA, CCP, B2 GLYPROT, CHROMATIN #### [facility] , Anti-dsDNA(DBL)Abon 01-18-20 25 Anti-dsDNA(DBL)Ab <1 Normal 0-9 [facility] Comment on above: Result Comment: Nega tive <5 Equivocal 5 - 9 Positive >9 PERFORMED BY: [facility] [address] [place] [address] PATHOLOGIST DE ICER ELEMENT WINDER RHONDA BAUER M.D. Performed By: #### C H50, TPO, RA, DARIEL, C3, C4, THYGLOB AB, CARDIO GMA, CCP, B2 GLYPROT, CHROMATIN #### [facility] , Anticardiolipin IgG/M/A, Qno n 01-17-2025 Anticardiolipin Ab, IgA,Qn <9 Normal 0-11 [facility] Comment on above: Result Comment: Nega tive: <12 Indeterminate: 12 - 20 Low-Med Positive: >20 - 80 High Positive: >80 Performed at: [facility] [address] [id number] Designer: Raul Nieves PhD, Phone: [phone] Performed By: #### C H50, TPO, RA, DARIEL, C3, C4, THYGLOB AB, CARDIO GMA, CCP, B2 GLYPROT, CHROMATIN #### [facility] , Anticardiolipin Ab, IgG,Qn <9 Normal 0-14 [facility] Comment on above: Result Comment: Nega tive: <15 Indeterminate: 15 - 20 Low-Med Positive: >20 - 80 High Positive: >80 Performed By: #### C H50, TPO, RA, DARIEL, C3, C4, THYGLOB AB, CARDIO GMA, CCP, B2 GLYPROT, CHROMATIN #### [facility] , Anticardiolipin Ab, IgM,Qn 10 Normal 0-12 [facility] Comment on above: Result Comment: Nega tive: <13 Indeterminate: 13 - 20 Low-Med Positive: >20 - 80 High Positive: >80 Performed By: #### C H50, TPO, RA, DARIEL, C3, C4, THYGLOB AB, CARDIO GMA, CCP, B2 GLYPROT, CHROMATIN #### [facility] , Antithyroglobulin Abon 01-17 Antithyroglobulin Ab 7.7 [IU]/mL High 0.0-0.9 [facility] Comment on above: Result Comment: Thyr oglobulin Antibody measured by [employer] It should be noted that the presence of thyroglobulin antibodies may not be pathogenic nor diagnostic, especially at very low levels. The assay business development sales executive has found that four percent of individuals without evidence of thyroid disease or autoimmunity will have positive TgAb levels up to 4 IU/mL. Performed at: [facility] [id number] Designer: Raul Nieves PhD, Phone: [phone] Performed By: #### C H50, TPO, RA, DARIEL, C3, C4, THYGLOB AB, CARDIO GMA, CCP, B2 GLYPROT, CHROMATIN #### [facility] , Appearance of UrineOrdered B y: Boo Godoy on 01-17-2025 Appearance (U) Urine appearance Clear [facility] Aspartate aminotransferase [ Enzymatic activity/volume] in Serum or PlasmaOrdered By: Boo Godoy on 01-17-2025 AST [Catalytic activity/Vol] Aspartate aminotransferase [Enzymatic activity/volume] in Serum or Plasma 13-39 [facility] Bacteria [Presence] in Urine by AutomatedOrdered By: Boo Godoy on 01-17-2025 Bacteria Auto Ql (U) Bacteria [Presence] in Urine by Automated None Seen [facility] Basophils Auto (Bld) [#/Vol] Ordered By: Boo Godoy on 01-17-2025 Basophils (Bld) [#/Vol] Automated basophil count 0.0-0.2 [facility] Basophils/100 WBC Auto (Bld) Ordered By: Boo Ambrosiorow on 01-17-2025 Basophils/100 WBC (Bld) Automated basophil % . [facility] Beta 2 Glycoprotein I Ab IgG /Mon 01-17-2025 Beta 2 Glycoprotein I Ab, IgG <9 Normal 0-20 [facility] Comment on above: Result [...] I Ab, IgM <9 Normal 0-32 [facility] Comment on above: Result Comment: Resu lt Units: GPI IgM units The reference interval reflects a 3SD or 99th percentile interval, which is thought to represent a potentially clinically significant result in accordance with the International Consensus Statement on the classification criteria for definitive antiphospholipid syndrome (APS). J Thromb Haem 2006;4:295-306. Performed at: [facility] [address] [id number] Designer: Raul Nieves PhD, Phone: [phone] Performed By: #### C H50, TPO, RA, DARIEL, C3, C4, THYGLOB AB, CARDIO GMA, CCP, B2 GLYPROT, CHROMATIN #### [facility] , Bilirubin Test strip Ql (U)O rdered By: Boo Godoy on 01-17-2025 Bilirubin Ql (U) Bilirubin.total [Pre sence] in Urine by Test strip Negative [facility] Bilirubin.total [Mass/volume ] in Serum or PlasmaOrdered By: Boo Godoy on 01-17-2025 Bilirubin [Mass/Vol] Bilirubin.total [Mass/volume] in Serum or Plasma 0.3-1.0 [facility] C reactive protein [Mass/vol ume] in Serum or PlasmaOrdered By: Boo Godoy on 01-17-2025 CRP [Mass/Vol] C reactive protein [Mass/volume] in Serum or Plasma 0.0-0.5 [facility] C-Reactive Proteinon 025 CRP [Mass/Vol] mg/L Normal 0.0-0.5 [facility] Comment on above: Performed By: #### C H50, TPO, RA, DARIEL, C3, C4, THYGLOB AB, CARDIO GMA, CCP, B2 GLYPROT, CHROMATIN #### [facility] , Calcium [Mass/volume] in Ser um or PlasmaOrdered By: Boo Godoy on 01-17-2025 Calcium [Mass/Vol] Calcium [Mass/volume ] in Serum or Plasma 8.6-10.3 [facility] Carbon dioxide, total [Moles /volume] in Serum or PlasmaOrdered By: Boo Godoy on 01-17-2025 CO2 [Moles/Vol] Carbon dioxide, tota l [Moles/volume] in Serum or Plasma 21.0-31.0 [facility] Chloride [Moles/volume] in S radha or PlasmaOrdered By: Boo Godoy on 01-17-2025 Chloride [Moles/Vol] Chloride [Moles/vol ume] in Serum or Plasma High 98-107 [facility] Chromatin Antibodyon 025 Chromatin Antibody <0.2 Normal 0.0-0.9 [facility] Comment on above: Result Comment: Perf ormed at: - [facility] [address] [id number] Designer: Raul Nieves PhD, Phone: [phone] PERFORMED BY: [place] [address] PATHOLOGIST DE IC[employer] ELEMENT WINDER RHONDA BAUER M.D. Performed By: #### C H50, TPO, RA, DARIEL, C3, C4, THYGLOB AB, CARDIO GMA, CCP, B2 GLYPROT, CHROMATIN #### [facility] , Coagulation Profileon 2024 aPTT Coag (Bld) [Time] 29.6 s Normal 25.1-36.5 [facility] Comment on above: Result Comment: A he matocrit value greater than 55% may lead to inaccurate results in coagulation testing. Patients having hematocrit values >55% require a special collection tube for coagulation studies. Please contact the laboratory at [phone] for redraw instructions. PERFORMED BY: [place] [address] PATHOLOGIST DE [employer]LEMENT WINDER RHONDA BAUER M.D. Performed By: #### C H50, TPO, RA, DARIEL, C3, C4, THYGLOB AB, CARDIO GMA, CCP, B2 GLYPROT, CHROMATIN #### [facility] , INR Coag (PPP) [Relative time] 1.0 {INR} Normal [facility] Comment on above: Result [...] (PPP) [Time] 11.5 s Normal 9.0-12.9 [facility] Comment on above: Result Comment: A he matocrit value greater than 55% may lead to inaccurate results in coagulation testing. Patients having hematocrit values >55% require a special collection tube for coagulation studies. Please contact the laboratory at [phone] for redraw instructions. Performed By: #### C H50, TPO, RA, DARIEL, C3, C4, THYGLOB AB, CARDIO GMA, CCP, B2 GLYPROT, CHROMATIN #### [facility] , Color Auto (U)Ordered By: Purnima Godoy on 01-17-2025 Color (U) Color of Urine by Auto Yellow [facility] Complement C3on 01-17-2025 Complement C3 132 mg/dL Normal 82-167 [facility] Comment on above: Performed By: #### C H50, TPO, RA, DARIEL, C3, C4, THYGLOB AB, CARDIO GMA, CCP, B2 GLYPROT, CHROMATIN #### [facility] , Complement C4on 01-17-2025 Complement C4 26 mg/dL Normal 12-38 [facility] Comment on above: Performed By: #### C H50, TPO, RA, DARIEL, C3, C4, THYGLOB AB, CARDIO GMA, CCP, B2 GLYPROT, CHROMATIN #### [facility] , Complement Total (CH50)on Complement Total (CH50) >60 Normal >41 [facility] Comment on above: Result [...] determine out of range values. Performed at: [facility] [address] [id number] Designer: Raul Nieves PhD, Phone: [phone] PERFORMED BY: [facility] [place] [address] PATHOLOGIST [employer] WINDER RHONDA BAUER M.D. Performed By: #### C H50, TPO, RA, DARIEL, C3, C4, THYGLOB AB, CARDIO GMA, CCP, B2 GLYPROT, CHROMATIN #### [facility] , Complete Blood Count Auto Di ffon 01-17-2025 Basophils (Bld) [#/Vol] 0.1 10*3/uL Normal 0.0-0.2 [facility] Comment on above: Performed By: #### C H50, TPO, RA, DARIEL, C3, C4, THYGLOB AB, CARDIO GMA, CCP, B2 GLYPROT, CHROMATIN #### [facility] , Basophils/100 WBC (Bld) 0.9 % Normal . [facility] Comment on above: Performed By: #### C H50, TPO, RA, DARIEL, C3, C4, THYGLOB AB, CARDIO GMA, CCP, B2 GLYPROT, CHROMATIN #### [facility] , Eosinophils (Bld) [#/Vol] 0.1 10*3/uL Normal 0.0-0.45 [facility] Comment on above: Performed By: #### C H50, TPO, RA, DRAIEL, C3, C4, THYGLOB AB, CARDIO GMA, CCP, B2 GLYPROT, CHROMATIN #### [facility] , Eosinophils/100 WBC (Bld) 1.8 % Normal . [facility] Comment on above: Performed By: #### C H50, TPO, RA, DARIEL, C3, C4, THYGLOB AB, CARDIO GMA, CCP, B2 GLYPROT, CHROMATIN #### [facility] , Erythrocyte distribution width (RBC) [Ratio] 12.8 % Normal 11.9-15.3 [facility] Comment on above: Performed By: #### C H50, TPO, RA, DARIEL, C3, C4, THYGLOB AB, CARDIO GMA, CCP, B2 GLYPROT, CHROMATIN #### [facility] , Hematocrit (Bld) [Volume fraction] 38.9 % Normal 34.0-46.4 [facility] Comment on above: Performed By: #### C H50, TPO, RA, DARIEL, C3, C4, THYGLOB AB, CARDIO GMA, CCP, B2 GLYPROT, CHROMATIN #### [facility] , Hemoglobin (Bld) [Mass/Vol] 12.9 g/dL Normal 11.8-15.4 [facility] Comment on above: Performed By: #### C H50, TPO, RA, DARIEL, C3, C4, THYGLOB AB, CARDIO GMA, CCP, B2 GLYPROT, CHROMATIN #### [facility] , Lymphocytes (Bld) [#/Vol] 1.4 10*3/uL Normal 1.00-4.8 [facility] Comment on above: Performed By: #### C H50, TPO, RA, DARIEL, C3, C4, THYGLOB AB, CARDIO GMA, CCP, B2 GLYPROT, CHROMATIN #### [facility] , Lymphocytes/100 WBC (Bld) 21.0 % Normal . [facility] Comment on above: Performed By: #### C H50, TPO, RA, DARIEL, C3, C4, THYGLOB AB, CARDIO GMA, CCP, B2 GLYPROT, CHROMATIN #### [facility] , MCH (RBC) [Entitic mass] 30.2 pg Normal 24.7-34.3 [facility] Comment on above: Performed By: #### C H50, TPO, RA, DARIEL, C3, C4, THYGLOB AB, CARDIO GMA, CCP, B2 GLYPROT, CHROMATIN #### [facility] , MCV (RBC) [Entitic vol] 90.5 fL Normal 80-100 [facility] Comment on above: Performed By: #### C H50, TPO, RA, DARIEL, C3, C4, THYGLOB AB, CARDIO GMA, CCP, B2 GLYPROT, CHROMATIN #### [facility] , Mean Corpuscular HGB Conc 33.3 g/dL Normal 32.0-35.0 [facility] Comment on above: Performed By: #### C H50, TPO, RA, DARIEL, C3, C4, THYGLOB AB, CARDIO GMA, CCP, B2 GLYPROT, CHROMATIN #### [facility] , Monocytes (Bld) [#/Vol] 0.6 10*3/uL Normal 0.0-0.8 [facility] Comment on above: Performed By: #### C H50, TPO, RA, DARIEL, C3, C4, THYGLOB AB, CARDIO GMA, CCP, B2 GLYPROT, CHROMATIN #### [facility] , Monocytes/100 WBC (Bld) 8.9 % Normal . [facility] Comment on above: Performed By: #### C H50, TPO, RA, DARIEL, C3, C4, THYGLOB AB, CARDIO GMA, CCP, B2 GLYPROT, CHROMATIN #### [facility] , Neutrophils (Bld) [#/Vol] 4.4 10*3/uL Normal 1.8-7.7 [facility] Comment on above: Performed By: #### C H50, TPO, RA, DARIEL, C3, C4, THYGLOB AB, CARDIO GMA, CCP, B2 GLYPROT, CHROMATIN #### [facility] , Neutrophils/100 WBC (Bld) 67.4 % Normal . [facility] Comment on above: Performed By: #### C H50, TPO, RA, DARIEL, C3, C4, THYGLOB AB, CARDIO GMA, CCP, B2 GLYPROT, CHROMATIN #### [facility] , NRBC% 0.2 /100{WBC} Normal 0-0.5 [facility] Comment on above: Performed By: #### C H50, TPO, RA, DARIEL, C3, C4, THYGLOB AB, CARDIO GMA, CCP, B2 GLYPROT, CHROMATIN #### [facility] , Platelet mean volume (Bld) [Entitic vol] 9.4 fL Normal 6.3-10.7 [facility] Comment on above: Performed By: #### C H50, TPO, RA, DARIEL, C3, C4, THYGLOB AB, CARDIO GMA, CCP, B2 GLYPROT, CHROMATIN #### [facility] , Platelets (Bld) [#/Vol] 240 10*3/uL Normal 150-450 [facility] Comment on above: Performed By: #### C H50, TPO, RA, DARIEL, C3, C4, THYGLOB AB, CARDIO GMA, CCP, B2 GLYPROT, CHROMATIN #### [facility] , RBC (Bld) [#/Vol] 4.29 10*6/uL Normal 3.60-5.00 [facility] Comment on above: Performed By: #### C H50, TPO, RA, DARIEL, C3, C4, THYGLOB AB, CARDIO GMA, CCP, B2 GLYPROT, CHROMATIN #### [facility] , WBC (Bld) [#/Vol] 6.5 10*3/uL Normal 3.8-11.6 [facility] Comment on above: Performed By: #### C H50, TPO, RA, DARIEL, C3, C4, THYGLOB AB, CARDIO GMA, CCP, B2 GLYPROT, CHROMATIN #### [facility] , Comprehensive Metabolic Pane israel 01-17-2025 Albumin [Mass/Vol] 4.2 g/dL Normal 3.5-5.7 [facility] Comment on above: Performed By: #### C H50, TPO, RA, DARIEL, C3, C4, THYGLOB AB, CARDIO GMA, CCP, B2 GLYPROT, CHROMATIN #### [facility] , Albumin/Globulin [Mass ratio] 1.8 {ratio} Normal [facility] Comment on above: Performed By: #### C H50, TPO, RA, DARIEL, C3, C4, THYGLOB AB, CARDIO GMA, CCP, B2 GLYPROT, CHROMATIN #### [facility] , ALP [Catalytic activity/Vol] 56 U/L Normal 34-104 [facility] Comment on above: Performed By: #### C H50, TPO, RA, DARIEL, C3, C4, THYGLOB AB, CARDIO GMA, CCP, B2 GLYPROT, CHROMATIN #### [facility] , ALT [Catalytic activity/Vol] 14 U/L Normal 7-52 [facility] Comment on above: Performed By: #### C H50, TPO, RA, DARIEL, C3, C4, THYGLOB AB, CARDIO GMA, CCP, B2 GLYPROT, CHROMATIN #### [facility] , Anion gap [Moles/Vol] 10.0 mmol/L Normal 6.0-15.0 [facility] Comment on above: Performed By: #### C H50, TPO, RA, DARIEL, C3, C4, THYGLOB AB, CARDIO GMA, CCP, B2 GLYPROT, CHROMATIN #### [facility] , AST [Catalytic activity/Vol] 16 U/L Normal 13-39 [facility] Comment on above: Performed By: #### C H50, TPO, RA, DARIEL, C3, C4, THYGLOB AB, CARDIO GMA, CCP, B2 GLYPROT, CHROMATIN #### [facility] , Bilirubin [Mass/Vol] 0.8 mg/dL Normal 0.3-1.0 [facility] Comment on above: Performed By: #### C H50, TPO, RA, DARIEL, C3, C4, THYGLOB AB, CARDIO GMA, CCP, B2 GLYPROT, CHROMATIN #### [facility] , Calcium [Mass/Vol] 9.8 mg/dL Normal 8.6-10.3 [facility] Comment on above: Performed By: #### C H50, TPO, RA, DARIEL, C3, C4, THYGLOB AB, CARDIO GMA, CCP, B2 GLYPROT, CHROMATIN #### [facility] , Chloride [Moles/Vol] 108 mmol/L High 98-107 [facility] Comment on above: Performed By: #### C H50, TPO, RA, DARIEL, C3, C4, THYGLOB AB, CARDIO GMA, CCP, B2 GLYPROT, CHROMATIN #### [facility] , CO2 [Moles/Vol] 28.0 mmol/L Normal 21.0-31.0 [facility] Comment on above: Performed By: #### C H50, TPO, RA, DARIEL, C3, C4, THYGLOB AB, CARDIO GMA, CCP, B2 GLYPROT, CHROMATIN #### [facility] , Creatinine [Mass/Vol] 0.69 mg/dL Normal 0.60-1.20 [facility] Comment on above: Performed By: #### C H50, TPO, RA, DARIEL, C3, C4, THYGLOB AB, CARDIO GMA, CCP, B2 GLYPROT, CHROMATIN #### [facility] , GFR/1.73 sq M.predicted MDRD (S/P/Bld) [Vol rate/Area] mL/min/{1.73_m2} Normal [facility] Comment on above: Performed By: #### C H50, TPO, RA, DARIEL, C3, C4, THYGLOB AB, CARDIO GMA, CCP, B2 GLYPROT, CHROMATIN #### [facility] , Globulin (S) [Mass/Vol] 2.4 g/dL Normal [facility] Comment on above: Performed By: #### C H50, TPO, RA, DARIEL, C3, C4, THYGLOB AB, CARDIO GMA, CCP, B2 GLYPROT, CHROMATIN #### [facility] , Glucose [Mass/Vol] 103 mg/dL High 70-100 [facility] Comment on above: Result Comment: [place] Glucose Reference Range is dependent on time and content of last meal. Glucose of more than 200 mg/dL in a nonstressed, ambulatory subject supports the diagnosis of Diabetes Mellitus. ADA recommended reference range Performed By: #### C H50, TPO, RA, DARIEL, C3, C4, THYGLOB AB, CARDIO GMA, CCP, B2 GLYPROT, CHROMATIN #### [facility] , Potassium [Moles/Vol] 4.0 mmol/L Normal 3.5-5.1 [facility] Comment on above: Performed By: #### C H50, TPO, RA, DARIEL, C3, C4, THYGLOB AB, CARDIO GMA, CCP, B2 GLYPROT, CHROMATIN #### [facility] , Protein [Mass/Vol] 6.6 g/dL Normal 6.4-8.9 [facility] Comment on above: Performed By: #### C H50, TPO, RA, DARIEL, C3, C4, THYGLOB AB, CARDIO GMA, CCP, B2 GLYPROT, CHROMATIN #### [facility] , Sodium [Moles/Vol] 142 mmol/L Normal 136-145 [facility] Comment on above: Performed By: #### C H50, TPO, RA, DARIEL, C3, C4, THYGLOB AB, CARDIO GMA, CCP, B2 GLYPROT, CHROMATIN #### [facility] , Urea nitrogen [Mass/Vol] 19 mg/dL Normal 7-25 [facility] Comment on above: Performed By: #### C H50, TPO, RA, DARIEL, C3, C4, THYGLOB AB, CARDIO GMA, CCP, B2 GLYPROT, CHROMATIN #### [facility] , Creatine Kinaseon 01-17-2025 CK [Catalytic activity/Vol] 88 U/L Normal 30-223 [facility] Comment on above: Result Comment: PERF ORMED BY: [address] [place] [address] PATHOLOGIST [employer] WINDER RHONDA BAUER M.D. Performed By: #### C H50, TPO, RA, DARIEL, C3, C4, THYGLOB AB, CARDIO GMA, CCP, B2 GLYPROT, CHROMATIN #### [facility] , Creatine kinase [Enzymatic a ctivity/volume] in Serum or PlasmaOrdered By: Boo Godoy on 01-17-2025 CK [Catalytic activity/Vol] Creatine kinase [Enzymatic activity/volume] in Serum or Plasma 30-223 [facility] Creatinine [Mass/volume] in Serum or PlasmaOrdered By: Boo Godoy on 01-17-2025 Creatinine [Mass/Vol] Creatinine [Mass/v olume] in Serum or Plasma 0.60-1.20 [facility] Cyclic Citrulliated Pep Abon 01-17-2025 Cyclic Citrulliated Pep Ab 5 Normal 0-19 [facility] Comment on above: Result Comment: Nega tive <20 Weak positive 20 - 39 Moderate positive 40 - 59 Strong positive >59 Performed at: [facility] [address] [id number] Designer: Raul Nieves PhD, Phone: [phone] Performed By: #### C H50, TPO, RA, DARIEL, C3, C4, THYGLOB AB, CARDIO GMA, CCP, B2 GLYPROT, CHROMATIN #### [facility] , Dipstick and Microscopicon 0 01-17-2025 Appearance (U) Clear Normal Clear [facility] Comment on above: Order Comment: Name Collection Type:: Clean-Voided Midstream Performed By: #### C H50, TPO, RA, DARIEL, C3, C4, THYGLOB AB, CARDIO GMA, CCP, B2 GLYPROT, CHROMATIN #### [facility] , Bacteria,Urine None Seen Normal None Seen [facility] Comment on above: Order Comment: Name Collection Type:: Clean-Voided Midstream Performed By: #### C H50, TPO, RA, DARIEL, C3, C4, THYGLOB AB, CARDIO GMA, CCP, B2 GLYPROT, CHROMATIN #### [facility] , Bilirubin,Urine Negative Normal Negative [facility] Comment on above: Order Comment: Name Collection Type:: Clean-Voided Midstream Performed By: #### C H50, TPO, RA, DARIEL, C3, C4, THYGLOB AB, CARDIO GMA, CCP, B2 GLYPROT, CHROMATIN #### [facility] , Color (U) Light-Yellow Normal Yellow [facility] Comment on above: Order Comment: Name Collection Type:: Clean-Voided Midstream Performed By: #### C H50, TPO, RA, DARIEL, C3, C4, THYGLOB AB, CARDIO GMA, CCP, B2 GLYPROT, CHROMATIN #### [facility] , Glucose Ql (U) Normal Normal Normal [facility] Comment on above: Order Comment: Name Collection Type:: Clean-Voided Midstream Performed By: #### C H50, TPO, RA, DARIEL, C3, C4, THYGLOB AB, CARDIO GMA, CCP, B2 GLYPROT, CHROMATIN #### [facility] , Hyaline Casts,Urine 0-8 Normal 0-8 [facility] Comment on above: Order Comment: Name Collection Type:: Clean-Voided Midstream Performed By: #### C H50, TPO, RA, DARIEL, C3, C4, THYGLOB AB, CARDIO GMA, CCP, B2 GLYPROT, CHROMATIN #### [facility] , Ketones Ql (U) Negative Normal Negative [facility] Comment on above: Order Comment: Name Collection Type:: Clean-Voided Midstream Performed By: #### C H50, TPO, RA, DARIEL, C3, C4, THYGLOB AB, CARDIO GMA, CCP, B2 GLYPROT, CHROMATIN #### [facility] , Leukocyte esterase Test strip Ql (U) Negative Normal Negative [facility] Comment on above: Order Comment: Name Collection Type:: Clean-Voided Midstream Performed By: #### C H50, TPO, RA, DARIEL, C3, C4, THYGLOB AB, CARDIO GMA, CCP, B2 GLYPROT, CHROMATIN #### [facility] , Mucus,Urine 1+ Critically abnormal [facility] Comment on above: Order Comment: Name Collection Type:: Clean-Voided Midstream Result Comment: PERF ORMED BY: [address] [place] [address] PATHOLOGIST DE [employer] WINDER RHONDA BAUER M.D. Performed By: #### C H50, TPO, RA, DARIEL, C3, C4, THYGLOB AB, CARDIO GMA, CCP, B2 GLYPROT, CHROMATIN #### [facility] , Nitrite,Urine Negative Normal Negative [facility] Comment on above: Order Comment: Name Collection Type:: Clean-Voided Midstream Performed By: #### C H50, TPO, RA, DARIEL, C3, C4, THYGLOB AB, CARDIO GMA, CCP, B2 GLYPROT, CHROMATIN #### [facility] , Occult Blood,Urine Negative Normal Negative [facility] Comment on above: Order Comment: Name Collection Type:: Clean-Voided Midstream Performed By: #### C H50, TPO, RA, DARIEL, C3, C4, THYGLOB AB, CARDIO GMA, CCP, B2 GLYPROT, CHROMATIN #### [facility] , pH (U) 7.0 [pH] Normal 5.0-9.0 [facility] Comment on above: Order Comment: Name Collection Type:: Clean-Voided Midstream Performed By: #### C H50, TPO, RA, DARIEL, C3, C4, THYGLOB AB, CARDIO GMA, CCP, B2 GLYPROT, CHROMATIN #### [facility] , Protein,Urine Negative Normal Negative [facility] Comment on above: Order Comment: Name Collection Type:: Clean-Voided Midstream Performed By: #### C H50, TPO, RA, DARIEL, C3, C4, THYGLOB AB, CARDIO GMA, CCP, B2 GLYPROT, CHROMATIN #### [facility] , RBC,Urine 1-2 Normal 0-4 [facility] Comment on above: Order Comment: Name Collection Type:: Clean-Voided Midstream Performed By: #### C H50, TPO, RA, DARIEL, C3, C4, THYGLOB AB, CARDIO GMA, CCP, B2 GLYPROT, CHROMATIN #### [facility] , Specificy [place],Urine 1.022 Normal 1.001-1.03 0 [facility] Comment on above: Order Comment: Name Collection Type:: Clean-Voided Midstream Performed By: #### C H50, TPO, RA, DARIEL, C3, C4, THYGLOB AB, CARDIO GMA, CCP, B2 GLYPROT, CHROMATIN #### [facility] , Squamous Epithelial Cell,Urine 1-2 Normal 0-2 [facility] Comment on above: Order Comment: Name Collection Type:: Clean-Voided Midstream Performed By: #### C H50, TPO, RA, DARIEL, C3, C4, THYGLOB AB, CARDIO GMA, CCP, B2 GLYPROT, CHROMATIN #### [facility] , Urobilinogen,Urine Normal Normal Normal [facility] Comment on above: Order Comment: Name Collection Type:: Clean-Voided Midstream Performed By: #### C H50, TPO, RA, DARIEL, C3, C4, THYGLOB AB, CARDIO GMA, CCP, B2 GLYPROT, CHROMATIN #### [facility] , WBC,Urine 1-2 Normal 0-4 [facility] Comment on above: Order Comment: Name Collection Type:: Clean-Voided Midstream Performed By: #### C H50, TPO, RA, DARIEL, C3, C4, THYGLOB AB, CARDIO GMA, CCP, B2 GLYPROT, CHROMATIN #### [facility] , Eosinophils Auto (Bld) [#/Vo l]Ordered By: Boo Godoy on 01-17-2025 Eosinophils (Bld) [#/Vol] Automated eosinophil count 0.0-0.45 [facility] Eosinophils/100 WBC Auto (Bl d)Ordered By: Boo Godoy on 01-17-2025 Eosinophils/100 WBC (Bld) Automated eosinophil % . [facility] Epithelial cells.squamous [# /area] in Urine sediment by Automated countOrdered By: Boo Godoy on 01-17-2025 Epithelial cells.squamous Auto (Urine sed) [#/Area] Epithelial cells.squamous [#/area] in Urine sediment by Automated count 0-2 [facility] Erythrocyte Sedimentation Ra nan 01-17-2025 ESR (Bld) [Velocity] 22 mm/h Normal 0-29 [facility] Comment on above: Result Comment: PERF ORMED BY: [facility] Carmela [place] [address] PATHOLOGIST DE [employer]MENT WINDER RHONDA BAUER M.D. Performed By: #### C H50, TPO, RA, DARIEL, C3, C4, THYGLOB AB, CARDIO GMA, CCP, B2 GLYPROT, CHROMATIN #### [facility] , Erythrocyte distribution wid th Auto (RBC) [Ratio]Ordered By: Boo Godoy on 01-17-2025 Erythrocyte distribution width (RBC) [Ratio] Erythrocyte distribution width [Ratio] by Automated count 11.9-15.3 [facility] Erythrocyte sedimentation ra te by Photometric methodOrdered By: Boo Godoy on 01-17-2025 ESR Photometric method (Bld) [Velocity] Erythrocyte sedimentation rate by Photometric method 0-29 [facility] Erythrocytes [#/area] in Uri ne sediment by Automated countOrdered By: Boo Godoy on 01-17-2025 RBC Auto (Urine sed) [#/Area] Erythrocytes [#/area] in Urine sediment by Automated count 0-4 [facility] Free T4 (Free Thyroxine)on 0 01-17-2025 Free T4 [Mass/Vol] 1.62 ng/dL High 0.61-1.12 [facility] Comment on above: Performed By: #### C H50, TPO, RA, DARIEL, C3, C4, THYGLOB AB, CARDIO GMA, CCP, B2 GLYPROT, CHROMATIN #### [facility] , Globulin Calc (S) [Mass/Vol] Ordered By: Boo Godoy on 01-17-2025 Globulin (S) [Mass/Vol] Serum globulin measurement by calculation (mass/volume) [facility] Glucose [Mass/volume] in Ser um or PlasmaOrdered By: Boo Godoy on 01-17-2025 Glucose [Mass/Vol] Glucose [Mass/volume ] in Serum or Plasma High 70-100 [facility] Comment on above: ADA recommended refe [...] [Mass/volume] in Urine by Test strip Normal [facility] Hematocrit Auto (Bld) [Volum e fraction]Ordered By: Boo Godoy on 01-17-2025 Hematocrit (Bld) [Volume fraction] Hematocrit [Volume Fraction] of Blood by Automated count 34.0-46.4 [facility] Hemoglobin Test strip Ql (U) Ordered By: Boo Godoy on 01-17-2025 Hemoglobin Ql (U) Hemoglobin [Presence ] in Urine by Test strip Negative [facility] Hemoglobin [Mass/volume] in BloodOrdered By: Boo Godoy on 01-17-2025 Hemoglobin (Bld) [Mass/Vol] Hemoglobin [Mass/volume] in Blood 11.8-15.4 [facility] Histone Antibodieson 025 Histone Antibodies 0.4 Normal 0.0-0.9 [facility] Comment on above: Result Comment: Nega tive <1.0 Weak Positive 1.0 - 1.5 Moderate Positive 1.6 - 2.5 Strong Positive >2.5 Performed at: - [facility] [id number] Designer: Epi Buckley MD, Phone: [phone] Performed By: #### C H50, TPO, RA, DARIEL, C3, C4, THYGLOB AB, CARDIO GMA, CCP, B2 GLYPROT, CHROMATIN #### [facility] , Hyaline casts [#/area] in Ur ine sediment by Automated countOrdered By: Boo Godoy on 01-17-2025 Hyaline casts Auto (Urine sed) [#/Area] Hyaline casts [#/area] in Urine sediment by Automated count 0-8 [facility] INR in Platelet poor plasma by Coagulation assayOrdered By: Boo Godoy on 01-17-2025 INR Coag (PPP) [Relative time] INR in Platelet poor plasma by Coagulation assay [facility] Comment on above: INR Therapeutic Rang [...] 01-17-2025 CHIO-1 Antibody <0.2 Normal 0.0-0.9 [facility] Comment on above: Performed By: #### C H50, TPO, RA, DARIEL, C3, C4, THYGLOB AB, CARDIO GMA, CCP, B2 GLYPROT, CHROMATIN #### [facility] , Ketones Test strip Ql (U)Ord ered By: Boo Godoy on 01-17-2025 Ketones Ql (U) Ketones [Presence] i n Urine by Test strip Negative [facility] Leukocyte esterase [Presence ] in Urine by Test stripOrdered By: Boo Godoy on 01-17-2025 Leukocyte esterase Test strip Ql (U) Leukocyte esterase [Presence] in Urine by Test strip Negative [facility] Leukocytes [#/area] in Urine sediment by Automated countOrdered By: Boo Godoy on 01-17-2025 WBC Auto (Urine sed) [#/Area] Leukocytes [#/area] in Urine sediment by Automated count 0-4 [facility] Leukocytes [#/volume] correc nida for nucleated erythrocytes in Blood by Automated counOrdered By: Boo Godoy on 01-17-2025 WBC corrected for nucl RBC Auto (Bld) [#/Vol] Leukocytes [#/volume] corrected for nucleated erythrocytes in Blood by Automated coun 3.8-11.6 [facility] Lupus Anticoagulant Compon 0 01-17-2025 Dilute Prothrombin Time (dPt) 35.2 Normal 0.0-47.6 [facility] Comment on above: Performed By: #### C H50, TPO, RA, DARILE, C3, C4, THYGLOB AB, CARDIO GMA, CCP, B2 GLYPROT, CHROMATIN #### [facility] , dPT Confirm Ratio 0.99 Normal 0.00-1.34 [facility] Comment on above: Performed By: #### C H50, TPO, RA, DARIEL, C3, C4, THYGLOB AB, CARDIO GMA, CCP, B2 GLYPROT, CHROMATIN #### [facility] , DRVVT Lupus 36.9 Normal 0.0-47.0 [facility] Comment on above: Performed By: #### C H50, TPO, RA, DARIEL, C3, C4, THYGLOB AB, CARDIO GMA, CCP, B2 GLYPROT, CHROMATIN #### [facility] , Interpretation Comment: Normal . [facility] Comment on above: Result Comment: No l upus anticoagulant was detected. Performed at: - [address] [id number] Designer: Epi Buckley MD, Phone: [phone] PERFORMED BY: [facility] [address] [place] [address] PATHOLOGIST DE ICER ELEMENT WINDER RHONDA BAUER M.D. Performed By: #### C H50, TPO, RA, DARIEL, C3, C4, THYGLOB AB, CARDIO GMA, CCP, B2 GLYPROT, CHROMATIN #### [facility] , PTT-LA 30.7 Normal 0.0-43.5 [facility] Comment on above: Performed By: #### C H50, TPO, RA, DARIEL, C3, C4, THYGLOB AB, CARDIO GMA, CCP, B2 GLYPROT, CHROMATIN #### [facility] , Thrombin Time 16.6 Normal 0.0-23.0 [facility] Comment on above: Performed By: #### C H50, TPO, RA, DARIEL, C3, C4, THYGLOB AB, CARDIO GMA, CCP, B2 GLYPROT, CHROMATIN #### [facility] , Lymphocytes Auto (Bld) [#/Vo l]Ordered By: Boo Godoy on 01-17-2025 Lymphocytes (Bld) [#/Vol] Lymphocytes [#/volume] in Blood by Automated count 1.00-4.8 [facility] Lymphocytes/100 WBC Auto (Bl d)Ordered By: Boo Godoy on 01-17-2025 Lymphocytes/100 WBC (Bld) Lymphocytes/100 leukocytes in Blood by Automated count . [facility] MCH Auto (RBC) [Entitic mass ]Ordered By: Boo Godoy on 01-17-2025 MCH (RBC) [Entitic mass] MCH [Entitic mass] by Automated count 24.7-34.3 [facility] MCHC Auto (RBC) [Mass/Vol]Or dered By: Boo Godoy on 01-17-2025 MCHC (RBC) [Mass/Vol] MCHC [Mass/volume] by Automated count 32.0-35.0 [facility] MCV Auto (RBC) [Entitic vol] Ordered By: Boo Godoy on 01-17-2025 MCV (RBC) [Entitic vol] MCV [Entitic volume] by Automated count 80-100 [facility] Monocytes Auto (Bld) [#/Vol] Ordered By: Boo Godoy on 01-17-2025 Monocytes (Bld) [#/Vol] Automated blood monocyte count 0.0-0.8 [facility] Monocytes/100 WBC Auto (Bld) Ordered By: Boo Godoy on 01-17-2025 Monocytes/100 WBC (Bld) Automated monocyte % . [facility] Mucus [Presence] in Urine by AutomatedOrdered By: Boo Godoy on 01-17-2025 Mucus Auto Ql (U) Mucus [Presence] in Urine by Automated Abnormal [facility] Neutrophils Auto (Bld) [#/Vo l]Ordered By: Boo Godoy on 01-17-2025 Neutrophils (Bld) [#/Vol] Neutrophils [#/volume] in Blood by Automated count 1.8-7.7 [facility] Neutrophils/100 WBC Auto (Bl d)Ordered By: Boo Godoy on 01-17-2025 Neutrophils/100 WBC (Bld) Automated neutrophil % . [facility] Nitrite Test strip Ql (U)Ord ered By: Boo Godoy on 01-17-2025 Nitrite Ql (U) Nitrite [Presence] i n Urine by Test strip Negative [facility] No Panel InformationOrdered By: Boo Godoy on 01-17-2025 Estimated GFR (CKD-EPI) > 60.0 mL/Min [facility] Creatinine Clearance (Chem N/A [facility] Nucleated erythrocytes [Pres ence] in Blood by Automated countOrdered By: Boo Godoy on 01-17-2025 Nucleated RBC Auto Ql (Bld) Nucleated erythrocytes [Presence] in Blood by Automated count 0-0.5 [facility] Platelet mean volume Auto (B ld) [Entitic vol]Ordered By: Boo Godoy on 01-17-2025 Platelet mean volume (Bld) [Entitic vol] Platelet mean volume [Entitic volume] in Blood by Automated count 6.3-10.7 [facility] Platelets Auto (Bld) [#/Vol] Ordered By: Boo Godoy on 01-17-2025 Platelets (Bld) [#/Vol] Platelets [#/volume] in Blood by Automated count 150-450 [facility] Potassium [Moles/volume] in Serum or PlasmaOrdered By: Boo Godoy on 01-17-2025 Potassium [Moles/Vol] Potassium [Moles/v olume] in Serum or Plasma 3.5-5.1 [facility] Protein Test strip (U) [Mass /Vol]Ordered By: Boo Godoy on 01-17-2025 Protein (U) [Mass/Vol] Protein [Mass/volume] in Urine by Test strip Negative [facility] Protein [Mass/volume] in Ser um or PlasmaOrdered By: Boo Godoy on 01-17-2025 Protein [Mass/Vol] Protein [Mass/volume ] in Serum or Plasma 6.4-8.9 [facility] Prothrombin time (PT)Ordered By: Boo Godoy on 01-17-2025 PT Coag (PPP) [Time] Prothrombin time (PT) 9.0- 12.9 [facility] Comment on above: A hematocrit value g reater than 55% may lead to inaccurate results in coagulation testing. Patients having hematocrit values >55% require a special collection tube for coagulation studies. Please contact the laboratory at [phone] for redraw instructions. RBC Auto (Bld) [#/Vol]Ordere d By: Boo Godoy on 01-17-2025 RBC (Bld) [#/Vol] Erythrocytes [#/volu me] in Blood by Automated count 3.60-5.00 [facility] RPR w/rfx to Quant TP Abson 01-17-2025 RPR, Rfx Quant RPR Non-Reactive Normal Non Reactive [facility] Comment on above: Result Comment: Perf ormed at: [address] [id number] Designer: Raul Nieves PhD, Phone: [phone] PERFORMED BY: [facility] [place] [address] PATHOLOGIST DE ICER ELEMENT WINDER RHONDA BAUER M.D. Performed By: #### C H50, TPO, RA, DARIEL, C3, C4, THYGLOB AB, CARDIO GMA, CCP, B2 GLYPROT, CHROMATIN #### [facility] , Rheumatoid Factoron 01-18-20 Rheumatoid Factor <10.0 Normal <14.0 [facility] Comment on above: Result Comment: Perf ormed at: [address] [id number] Designer: Raul Nieves PhD, Phone: [phone] Performed By: #### C H50, TPO, RA, DARIEL, C3, C4, THYGLOB AB, CARDIO GMA, CCP, B2 GLYPROT, CHROMATIN #### [facility] , Scleroderma 70 Antibodieson 01-17-2025 Scleroderma 70 Antibodies 0.2 Normal 0.0-0.9 [facility] Comment on above: Performed By: #### C H50, TPO, RA, DARIEL, C3, C4, THYGLOB AB, CARDIO GMA, CCP, B2 GLYPROT, CHROMATIN #### [facility] , Serum or plasma albumin/glob ulin mass ratioOrdered By: Boo Godoy on 01-17-2025 Albumin/Globulin [Mass ratio] Serum or plasma albumin/globulin mass ratio [facility] Serum or plasma anion gap de terminationOrdered By: Boo Godoy on 01-17-2025 Anion gap [Moles/Vol] Serum or plasma an ion gap determination 6.0-15.0 [facility] Sjogrens Anti-SSA/SSBon SS-A/Ro Sjogrens Antibody <0.2 Normal 0.0-0.9 [facility] Comment on above: Performed By: #### C H50, TPO, RA, DARIEL, C3, C4, THYGLOB AB, CARDIO GMA, CCP, B2 GLYPROT, CHROMATIN #### [facility] , SS-B/La Sjogrens Antibody <0.2 Normal 0.0-0.9 [facility] Comment on above: Performed By: #### C H50, TPO, RA, DARIEL, C3, C4, THYGLOB AB, CARDIO GMA, CCP, B2 GLYPROT, CHROMATIN #### [facility] , Sodium [Moles/volume] in Ser um or PlasmaOrdered By: Boo Godoy on 01-17-2025 Sodium [Moles/Vol] Sodium [Moles/volume ] in Serum or Plasma 136-145 [facility] Specific gravity Test strip (U) [Rel density]Ordered By: Boo Godoy on 01-17-2025 Specific gravity (U) [Rel density] Specific gravity of Urine by Test strip 1.001-1.03 0 [facility] Thyroid Peroxidase Antibodie son 01-17-2025 Thyroid Peroxidase Antibodies 116 [IU]/mL High 0-34 [facility] Comment on above: Result Comment: Perf ormed at: [facility] [address] [id number] Designer: Raul Nieves PhD, Phone: [phone] Performed By: #### C H50, TPO, RA, DARIEL, C3, C4, THYGLOB AB, CARDIO GMA, CCP, B2 GLYPROT, CHROMATIN #### [facility] , Thyroid Stimulating Hormoneo n 01-17-2025 TSH Qn 0.04 m[IU]/L Low 0.45-5.33 [facility] Comment on above: Result Comment: PERF ORMED BY: [address] [place] [address] PATHOLOGIST DE ICER ELEMENT WINDER RHONDA BAUER M.D. Performed By: #### C H50, TPO, RA, DARIEL, C3, C4, THYGLOB AB, CARDIO GMA, CCP, B2 GLYPROT, CHROMATIN #### [facility] , Thyrotropin [Units/volume] i n Serum or PlasmaOrdered By: Boo Godoy on 01-17-2025 TSH Qn Thyrotropin [Units/v olume] in Serum or Plasma Low 0.45-5.33 [facility] Thyroxine (T4) free [Mass/vo lume] in Serum or PlasmaOrdered By: Boo Godoy on 01-17-2025 Free T4 [Mass/Vol] Thyroxine (T4) free [Mass/volume] in Serum or Plasma High 0.61-1.12 [facility] Urea nitrogen [Mass/volume] in Serum or PlasmaOrdered By: Boo Godoy on 01-17-2025 Urea nitrogen [Mass/Vol] Urea nitrogen [Mass/volume] in Serum or Plasma 7-25 [facility] Urobilinogen Test strip (U) [Mass/Vol]Ordered By: Boo Godoy on 01-17-2025 Urobilinogen (U) [Mass/Vol] Urobilinogen [Mass/volume] in Urine by Test strip Normal [facility] WBC Auto (Bld) [#/Vol]Ordere d By: Boo Godoy on 01-17-2025 WBC (Bld) [#/Vol] Leukocytes [#/volume ] in Blood by Automated count 3.8-11.6 [facility] aPTT in Platelet poor plasma by Coagulation assayOrdered By: Boo Godyo on 01-17-2025 aPTT Coag (PPP) [Time] Activated partial thromboplastin time (aPTT) in platelet poor plasma by coagulation a 25.1-36.5 [facility] Comment on above: A hematocrit value g reater than 55% may lead to inaccurate results in coagulation testing. Patients having hematocrit values >55% require a special collection tube for coagulation studies. Please contact the laboratory at [phone] for redraw instructions. pH Test strip (U)Ordered By: Boo Godoy on 01-17-2025 pH (U) pH of Urine by Test strip 5.0-9.0 [facility] US PELVIC COMPLETE W/ TVon 0 [...] II, MD, PHD at 22-Dec-2024 10:37:30 AM [facility] Normal Not Available Comment on above: Order Comment: US PE LVIS-TRANSVAG IF INDICATED No LMP recorded. Patient is postmenopausal. NH Myocardial Spect Rest/Str ess 1 Dayon 12-19-2024 NH Myocardial Spect Rest/Stress 1 Day Exam Date/Time: 12/19/2024 10:40 EST Reason for Exam: R07.9;Chest pain Report [address] [id number] Nuclear Stress Report Name: CHLOE AGARWAL Study Date: 12/19/2024 08:10 AM [facility] : 1955 (M/d/yyyy) Gender: Female Age: 69 yrs Ethnicity: T Reason For Study: R07.9;Chest pain Ordering Physician: Lokesh Mcqueen Referring Physician: Lokesh Mcqueen Protocol 51125 Pharmacologic Lexiscan stress with Isotope. Study Protocol: [...] Mcfarland MD Transcribed by: GARY Technologist: MATTY [facility] MM TOMOSYNTHESIS SCREENING B Ion 12-14-2024 [place] [address] Mammography Report Signed Patient: CHLOE AGARWAL MR#: [id number] : 1955 Acct:[id number] Age/Sex: 69 / F ADM Date: 12/14/24 Loc: MAMMO Attending Dr: Antionette Yang Ordering Physician: Antionette Yang Results: Date of Service: 12/14/24 Follow Up: Procedure(s): MM tomosynthesis screening BI Accession Number(s): [id number] cc: Antionette Yang; Vick Mcghee M.D. Patient Name: CHLOE AGARWAL MR#: [id number] : 1955 Exam Date: 12/14/2024 Ordering Doctor: [...] Treatments None Family Cancers None LOCATION: [facility] BREAST COMPOSITION: There are scattered areas [...] Signed By: 12/14/24 1148 DD/ 1147 TD/TT: Surface Supply Breathing Apparatus: [facility] Radiology, Radiologi MD kimberly - 12/14/2024 The [place] [id number] Mammography Report Signed Patient: CHLOE AGARWAL MR#: [id number] : 1955 Acct:[id number] Age/Sex: 69 / F ADM Date: 12/14/24 Loc: MAMMO Attending Dr: Antionette Yang Ordering Physician: Antionette Yang Results: Date of Service: 12/14/24 Follow Up: Procedure(s): MM tomosynthesis screening BI Accession Number(s): [id number] cc: Antionette Yang; Vick Mcghee M.D. Patient Name: CHLOE AGARWAL MR#: [id number] : 1955 Exam Date: 12/14/2024 Ordering Doctor: [...] Treatments None Family Cancers None LOCATION: [facility] BREAST COMPOSITION: There are scattered areas [...] Signed By: 12/14/24 1148 DD/ 1147 TD/TT: Surface Supply Breathing Apparatus: [facility] Radiology Study observation (narrative) [facility] MM TOMOSYNTHESIS SCREENING B IOrdered By: Radiologist Radiology on 12-14-2024 [facility] Work Phone: IGP,APTIMA HPV,AGE GDLNon AGE GDLN ACOG TESTING Note . [facility] Comment on above: TESTS RESULT FLAG UN ITS REF RANGE LAB Clinician Provided Cytology Information Source.............Cervix;Endocervix No. of containers..01 ThinPrep Vial Age Algo ACOG Adamaris... Note 01 <21 or >65 or no age provided FLAG LEGEND: L-Low Normal,H-High Normal,LL-Alert Low,HH-Alert High <-Panic Low,>-Panic High,A-Abnormal,AA-Critical Abnormal Performed at: 01 =G [facility] [address] [place] [address] Adelina Nunez MD, PAP IG (IMAGE GUIDED) Note . [facility] Comment on above: TESTS RESULT FLAG UN ITS REF RANGE LAB DIAGNOSIS: 02 NEGATIVE FOR INTRAEPITHELIAL LESION OR MALIGNANCY. CELLULAR CHANGES ASSOCIATED WITH ATROPHY ARE PRESENT. Specimen adequacy: 02 Satisfactory for evaluation. Endocervical component may not be distinguished in cases of atrophy. Performed by: 02 Mali Neely, Feeder Catcher ([facility]) . 02 Note: Note 03 The [...] High,A-Abnormal,AA-Critical Abnormal Performed at: 02 [place] [facility] [address] [address] Shakila Ivey PhD, [address] [facility] [address] [address] Adelina Nunez MD, Performed at: =G - [facility] [address] [id number] Designer: Adelina Nunez MD, Phone: [phone] Performed at: [facility] - [address] [id number] Designer: Shakila Ivey PhD, Phone: [phone] BRUSH-SPATULA CERVIX ENDOCERVIX [facility] ED Note-Physicianon 11-17-19 ED Note-Physician ED Note-Physician Basic Information Opened in error Assessment/Plan Normal [facility] Comment on above: Result Comment: Elec tronically Signed By: Qian Jimenes, Darshan H\.br\Date and Time Signed: 11/15/24 15:23 EST BMPon 11-16-2024 Anion gap [Moles/Vol] 10 mmol/L Normal 6-16 Fis [facility] Comment on above: Performed By: #### 2 [id number] #### [facility] [address] [place] [address] Calcium [Mass/Vol] 9.2 mg/dL Normal 8.9-11.1 [facility] Comment on above: Performed By: #### 2 [id number] #### [facility] [address] [place] [address] Chloride [Moles/Vol] 107 mmol/L Normal 101-111 [facility] Comment on above: Performed By: #### 2 136186 #### [facility] [address] [place] [address] CO2 [Moles/Vol] 26 mmol/L Normal 21-31 [facility] Comment on above: Performed By: #### 2 [id number] #### [facility] [address] [place] [address] Creatinine [Mass/Vol] 0.7 mg/dL Normal 0.5-1.3 [facility] Comment on above: Performed By: #### 2 921156 #### [facility] [address] [place] [address] Glucose [Mass/Vol] 105 mg/dL Normal 55-199 [facility] Comment on above: Performed By: #### 2 886546 #### [facility] [address] [place] [address] Potassium [Moles/Vol] 4.0 mmol/L Normal 3.5-5.3 [facility] Comment on above: Performed By: #### 2 992401 #### [facility] [address] [place] [address] Sodium [Moles/Vol] 139 mmol/L Normal 135-145 [facility] Comment on above: Performed By: #### 2 821935 #### [facility] [address] [place] [address] Urea nitrogen [Mass/Vol] 23 mg/dL High 5-21 [facility] Comment on above: Performed By: #### 2 582407 #### [facility] [address] [place] [address] Urea nitrogen/Creatinine [Mass ratio] 33 No Units High 10-20 [facility] Comment on above: Performed By: #### 2 077561 #### [facility] [address] [place] [address] CBC w/ Auto Diffon 5 Basophils/100 WBC (Bld) 0.8 % Normal 0.0-2.0 [facility] Comment on above: Performed By: #### 2 879686 #### [facility] [address] [place] [address] Basophils/Leukocytes Auto (Bld) [Pure # fraction] 0.1 E9/L Normal 0.0-0.2 [facility] Comment on above: Performed By: #### 2 805557 #### [facility] [address] [place] [address] Eosinophils (Bld) [#/Vol] 0.1 E9/L Normal 0.0-0.5 [facility] Comment on above: Performed By: #### 2 050377 #### [facility] [address] [place] [address] Eosinophils/100 WBC (Bld) 1.5 % Normal 0.0-8.0 [facility] Comment on above: Performed By: #### 2 721915 #### [facility] [address] [place] [address] Erythrocyte distribution width (RBC) [Ratio] 12.7 % Normal 10.9-14.2 [facility] Comment on above: Performed By: #### 2 280473 #### [facility] [address] [place] [address] Hematocrit (Bld) [Volume fraction] 36.3 % Normal 34.0-46.0 [facility] Comment on above: Performed By: #### 2 209434 #### [facility] [address] [place] [address] Hemoglobin (Bld) [Mass/Vol] 12.4 g/dL Normal 12.0-16.0 [facility] Comment on above: Performed By: #### 2 122891 #### [facility] [address] [place] [address] Lymphocytes (Bld) [#/Vol] 0.9 E9/L Low 1.0-4.0 [facility] Comment on above: Performed By: #### 2 186396 #### [facility] [address] [place] [address] Lymphocytes/100 WBC (Bld) 12.6 % Low 14.0-50.0 [facility] Comment on above: Performed By: #### 2 171979 #### [facility] [address] [place] [address] MCH (RBC) [Entitic mass] 31.5 pg Normal 27.0-34.0 [facility] Comment on above: Performed By: #### 2 160223 #### [facility] [address] [place] [address] MCHC (RBC) [Mass/Vol] 34.1 g/dL Normal 31.4-36.0 [facility] Comment on above: Performed By: #### 2 348497 #### [facility] [address] [place] [address] MCV (RBC) [Entitic vol] 92.4 fL Normal 80.0-100.0 [facility] Comment on above: Performed By: #### 2 019904 #### [facility] [address] [place] [address] Monocytes (Bld) [#/Vol] 0.7 E9/L Normal 0.2-1.0 [facility] Comment on above: Performed By: #### 2 502619 #### [facility] [address] [place] [address] Neutrophils (Bld) [#/Vol] 5.7 E9/L Normal 2.0-7.5 [facility] Comment on above: Performed By: #### 2 236028 #### [facility] [address] [place] [address] Neutrophils/100 WBC (Bld) 76.3 % High 36.0-75.0 [facility] Comment on above: Performed By: #### 2 722998 #### [facility] [address] [place] [address] Platelet mean volume (Bld) [Entitic vol] 8.2 fL Normal 6.4-10.8 [facility] Comment on above: Performed By: #### 2 922764 #### [facility] [address] [place] [address] Platelets (Bld) [#/Vol] 229.0 E9/L Normal 150.0-500. 0 [facility] Comment on above: Performed By: #### 2 389555 #### [facility] [address] [place] [address] RBC (Bld) [#/Vol] 3.9 E12/L Low 4.3-5.9 [facility] Comment on above: Performed By: #### 2 946550 #### [facility] [address] [place] [address] WBC corrected for nucl RBC Auto (Bld) [#/Vol] 7.4 E9/L Normal 4.0-11.0 [facility] Comment on above: Performed By: #### 2 553193 #### [facility] [address] [place] [address] Discharge Note-Nursingon Discharge Note-Nursing Discharge Note-Nursing GLADYS AGARWALHO Mckinley :1955 Visit Date:11/15/2024 Inpatient Discharge Instructions Your Care Team Admitting Physician - VÍCTOR CANTRELL, Aileen Consulting Physician - [facility] Cardio, XXXX Bryant CANTRELL, Baldomero Reason for Your Visit chest pain Your Diagnosis Chest pain Non-cardiac chest pain HTN (hypertension) Chronic GERD Chest pain Tests Performed Echo Transthoracic Complete XR Chest Single View This Is Your Medications List [facility] Prescription (Adult Blood Pressure Monitor [...] Tablets By Mouth Every day Pickup at [facility] 11/17 @ 9 am Unchanged clonidine [...] GERD 11/16 @ 9 pm Pharmacy Information [facility]: [address] [place], [place] [id number] [phone] Test Results CBC BMP WBC: 7.4 E9/L [...] An injur (more content not included)... Normal [facility] Interdisciplinary Note - Mario e Manageron 11-16-2024 Interdisciplinary Note - Insulation Blower Interdisciplinary Note - Insulation Blower CRM to room 315 Patient is awake, alert and oriented. Patient is from home with her Spouse. He is her ride at OR. Patient verified PCP, DME and insurance. Patient [...] test today. Patient declines any concerns to OR home. Patient declines any needs for DME, HH or Paramed. Patient was provided CRM contact, white board updated. Patient is a possible DC if cardiac work up negative Normal [facility] Comment on above: Result Comment: Elec tronically Signed By: Leonila Vasquez\.br\Date and Time Signed: 11/16/24 11:14 EST eGFRon 11-16-2024 eGFR 95 mL/min/1.73 m2 Normal >=59 [facility] Comment on above: Performed By: #### 1 [id number] #### [facility] [address] [place] [address] BMPon 11-15-2024 Anion gap [Moles/Vol] 12 mmol/L Normal 6-16 Fis [facility] Comment on above: Performed By: #### 2 455433 #### [facility] [address] [place] [address] Calcium [Mass/Vol] 9.4 mg/dL Normal 8.9-11.1 [facility] Comment on above: Performed By: #### 2 878125 #### [facility] [address] [place] [address] Chloride [Moles/Vol] 105 mmol/L Normal 101-111 [facility] Comment on above: Performed By: #### 2 493676 #### [facility] [address] [place] [address] CO2 [Moles/Vol] 26 mmol/L Normal 21-31 [facility] Comment on above: Performed By: #### 2 625468 #### [facility] [address] [place] [address] Creatinine [Mass/Vol] 1.0 mg/dL Normal 0.5-1.3 [facility] Comment on above: Performed By: #### 2 681768 #### [facility] [address] [place] [address] Glucose [Mass/Vol] 101 mg/dL Normal 55-199 [facility] Comment on above: Performed By: #### 2 005126 #### [facility] [address] [place] [address] Potassium [Moles/Vol] 3.7 mmol/L Normal 3.5-5.3 [facility] Comment on above: Performed By: #### 2 724918 #### [facility] [address] [place] [address] Sodium [Moles/Vol] 139 mmol/L Normal 135-145 [facility] Comment on above: Performed By: #### 2 699509 #### [facility] [address] [place] [address] Urea nitrogen [Mass/Vol] 27 mg/dL High 5-21 [facility] Comment on above: Performed By: #### 2 686637 #### [facility] [address] [place] [address] Urea nitrogen/Creatinine [Mass ratio] 27 No Units High 10-20 [facility] Comment on above: Performed By: #### 2 256143 #### [facility] [address] [place] [address] CBC w/ Auto Diffon 01-28-202 5 Basophils/100 WBC (Bld) 0.9 % Normal 0.0-2.0 [facility] Comment on above: Performed By: #### 2 673386 #### [facility] [address] [place] [address] Basophils/Leukocytes Auto (Bld) [Pure # fraction] 0.1 E9/L Normal 0.0-0.2 [facility] Comment on above: Performed By: #### 2 194618 #### [facility] [address] [place] [address] Eosinophils (Bld) [#/Vol] 0.1 E9/L Normal 0.0-0.5 [facility] Comment on above: Performed By: #### 2 328451 #### [facility] [address] [place] [address] Eosinophils/100 WBC (Bld) 1.2 % Normal 0.0-8.0 [facility] Comment on above: Performed By: #### 2 [id number] #### [facility] [address] [place] [address] Erythrocyte distribution width (RBC) [Ratio] 12.5 % Normal 10.9-14.2 [facility] Comment on above: Performed By: #### 2 [id number] #### [facility] [address] [place] [address] Hematocrit (Bld) [Volume fraction] 38.3 % Normal 34.0-46.0 [facility] Comment on above: Performed By: #### 2 [id number] #### [facility] [address] [place] [address] Hemoglobin (Bld) [Mass/Vol] 13.2 g/dL Normal 12.0-16.0 [facility] Comment on above: Performed By: #### 2 [id number] #### [facility] [address] [place] [address] Lymphocytes (Bld) [#/Vol] 1.3 E9/L Normal 1.0-4.0 [facility] Comment on above: Performed By: #### 2 [id number] #### [facility] [address] [place] [address] Lymphocytes/100 WBC (Bld) 14.1 % Normal 14.0-50.0 [facility] Comment on above: Performed By: #### 2 [id number] #### [facility] [address] [place] [address] MCH (RBC) [Entitic mass] 31.3 pg Normal 27.0-34.0 [facility] Comment on above: Performed By: #### 2 285626 #### [facility] [address] [place] [address] MCHC (RBC) [Mass/Vol] 34.3 g/dL Normal 31.4-36.0 [facility] Comment on above: Performed By: #### 2 110047 #### [facility] [address] [place] [address] MCV (RBC) [Entitic vol] 91.1 fL Normal 80.0-100.0 [facility] Comment on above: Performed By: #### 2 750588 #### [facility] [address] [place] [address] Monocytes (Bld) [#/Vol] 0.7 E9/L Normal 0.2-1.0 [facility] Comment on above: Performed By: #### 2 [id number] #### [facility] [address] [place] [address] Neutrophils (Bld) [#/Vol] 6.8 E9/L Normal 2.0-7.5 [facility] Comment on above: Performed By: #### 2 [id number] #### [facility] [address] [place] [address] Neutrophils/100 WBC (Bld) 75.8 % High 36.0-75.0 [facility] Comment on above: Performed By: #### 2 875541 #### [facility] [address] [place] [address] Platelet 259.0 E9/L Normal 150.0-500. 0 [facility] Comment on above: Performed By: #### 2 000713 #### [facility] [address] [place] [address] Platelet mean volume (Bld) [Entitic vol] 7.6 fL Normal 6.4-10.8 [facility] Comment on above: Performed By: #### 2 553319 #### [facility] [address] [place] [address] RBC (Bld) [#/Vol] 4.2 E12/L Low 4.3-5.9 [facility] Comment on above: Performed By: #### 2 [id number] #### [facility] [address] [place] [address] WBC corrected for nucl RBC Auto (Bld) [#/Vol] 9.0 E9/L Normal 4.0-11.0 [facility] Comment on above: Performed By: #### 2 141359 #### [facility] [address] [place] [address] D-Dimeron 11-15-2024 Fibrin D-dimer FEU (PPP) [Mass/Vol] 393 [id number] Normal 215-500 [facility] Comment on above: Result Comment: This assay [...] infections Liver cirrhosis Performed By: #### 2 [id number] #### [facility] [address] [place] [address] ED Clinical Summaryon 2024 ED Clinical Summary ED Clinical Summary [address] [address] ED Clinical Summary Person Information Name: CHLOE AGARWAL [facility] Age: 69 Years : 1955 Sex: Female Language: Finnish PCP: Vick Mcghee MD Marital Status: Visit Id: Visit Reason: Chest pain; CHEST PAIN, UPPER ABD PAIN Speciality: Acuity: 2 Enc Type: Observation Med Service: Medical Arrival: 11/15/2024 13:13:47 Discharge: LOS: 000 03:45 Checkin: 11/15/2024 13:13:47 Checkout: 11/15/2024 16:58:54 Dispo Type: Admitted as IP to this [facility] EVENTS: Event Name Event Status Request [...] 16:55:38 Meds Admin Request 11/15/2024 16:55:38 ADDRESS: [facility] [place] [phone] PHYS DOC NOTES: MEDICAL INFORMATION: Prescriptions Given: [...] chest pain; 3:HTN (hypertension); 4:Chronic GERD Normal [facility] ED Note-Physicianon 11-15-19 ED Note-Physician ED Note-Physician [...] and Complexity of Problems Differential Diagnosis: [] [facility] Data External documents reviewed: [] My [...] 81 mg (more content not included)... Normal [facility] Comment on above: Result Comment: Elec tronically Signed By: Qian Jimenes, Darshan Ibrahim\.br\Date and Time Signed: 11/15/24 17:14 EST ED Note-Physician ED Note-Physician Basic Information Opened in error Assessment/Plan Normal [facility] Comment on above: Result Comment: Elec tronically Signed By: Qian Jimenes, Darshan Ibrahim\.br\Date and Time Signed: 11/15/24 15:23 EST ED Patient Education Noteon 11-15-2024 ED Patient Education Note ED Patient Education Note Normal [facility] ED Patient Summaryon 025 ED Patient Summary ED Patient Summary [place] [address] Patient Discharge Instructions Person Information Name: CHLOE AGARWAL Age: 69 Years Arrival Date: 11/15/2024 13:13:47 Discharge Diagnosis: 1:Chest pain; 2:Non-cardiac chest pain; 3:HTN (hypertension); 4:Chronic GERD Primary Care Physician: Vick Mcghee MD Provider Information Primary Provider: Qian Jimenes, Darshan Ibrahim Advanced Angle Roll Operator:None The exam and treatment you received in the Emergency Department were for an urgent problem and are not intended as complete care. It is important that you follow up with a doctor, nurse practitioner, or physician???s insurance administrative assistant for ongoing care. If your [...] opioids can be used to help relieve iqpibmua-zv-xxvdfv pain and are often prescribed following a [...] be struggling with addiction, tell your health hearing care practitioner and ask for guidance or call [facility]???S National Helpline at 5-610-421-HELP. v Source: [place] Department (more content not included)... Normal [facility] Lipase Levelon 11-15-2024 Lipase [Catalytic activity/Vol] 43 U/L Normal 13-58 [facility] Comment on above: Performed By: #### 2 [id number] #### [facility] [address] [place] [address] Magnesiumon 11-15-2024 Magnesium [Mass/Vol] 2.0 mg/dL Normal 1.3-2.4 [facility] Comment on above: Performed By: #### 2 [id number] #### [facility] [address] [place] [address] PT & PTTon 11-15-2024 aPTT Coag (PPP) [Time] 30.1 second(s) Normal 25.1-36.5 [facility] Comment on above: Result Comment: Para meter [...] the same coagulation reagent and instrumentation as [facility]. Currently there are no coagulation studies available worldwide for children to 14 days, and no normal ranges. Heparin therapeutic range (represented by Anti-Factor Xa activity of 0.2 - 0.4 U/mL) corresponds to PTT of 56.6 - 109.0 sec. Performed By: #### 1 [id number] #### [facility] [address] [place] [address] INR Coag (PPP) [Relative time] 0.98 {INR} Invalid Interpretation Code [facility] Comment on above: Result Comment: INR results are specifically intended to assess patients stabilized on long-term Anticoagulation therapy suggested INR???s ???Less Intensive Anticoagulation??? 2.0 ??? 3.0 Conventional Range 3.0 ??? 4.5 Performed By: #### 1 [id number] #### [facility] [address] [place] [address] PT Coag (PPP) [Time] 11.0 second(s) Normal 9.4-12.5 [facility] Comment on above: Result Comment: 15 d [...] the same coagulation reagent and instrumentation as [facility]. Currently there are no coagulation studies available worldwide for children to 14 days, and no normal ranges. Performed By: #### 1 [id number] #### [facility] [address] [place] [address] Troponin 0 Hr.on 11-15-2024 Troponin HS 4.50 pg/mL Low 10.10-27.1 0 [facility] Comment on above: Result Comment: The 95% CI (Confidence Interval) PPV (Positive Predictive Value) for myocardial infarction in females is 38 pg/mL, in males 51 pg/mL. The results should be used in conjunction with clinical conditions of myocardial infarction. (Access High Sensitivity Troponin I Instructions For Use, [employer], May 2018) Performed By: #### 1 [id number] #### [facility] [address] [place] [address] Troponin 1 Hr.on 11-15-2024 Troponin HS 4.80 pg/mL Low 10.10-27.1 0 [facility] Comment on above: Order Comment: 1441 Result Comment: The 95% CI (Confidence Interval) PPV (Positive Predictive Value) for myocardial infarction in females is 38 pg/mL, in males 51 pg/mL. The results should be used in conjunction with clinical conditions of myocardial infarction. (Access High Sensitivity Troponin I Instructions For Use, [employer], May 2018) Performed By: #### 1 [id number] #### [facility] [address] [place] [address] Troponin 3 Hr.on 11-15-2024 Troponin HS 5.20 pg/mL Low 10.10-27.1 0 [facility] Comment on above: Result Comment: The 95% CI (Confidence Interval) PPV (Positive Predictive Value) for myocardial infarction in females is 38 pg/mL, in males 51 pg/mL. The results should be used in conjunction with clinical conditions of myocardial infarction. (Access High Sensitivity Troponin I Instructions For Use, [employer], May 2018) Performed By: #### 1 [id number] #### [facility] [address] [place] [address] Troponin 6 Hr.on 11-15-2024 Troponin HS 6.30 pg/mL Low 10.10-27.1 0 [facility] Comment on above: Result Comment: The 95% CI (Confidence Interval) PPV (Positive Predictive Value) for myocardial infarction in females is 38 pg/mL, in males 51 pg/mL. The results should be used in conjunction with clinical conditions of myocardial infarction. (Access High Sensitivity Troponin I Instructions For Use, [employer], May 2018) Performed By: #### 1 [id number] #### [facility] [address] [place] [address] XR Chest Single Viewon 11-15 XR Chest [...] MD Transcribed by: SCOTTY Technologist: CC, Normal [facility] eGFRon 11-15-2024 eGFR 62 mL/min/1.73 m2 Normal >=59 [facility] Comment on above: Performed By: #### 1 [id number] #### [facility] [address] [place] [address] Heart and Vascular Office/Cl inic Noteon 12-18-2024 Heart and Vascular Office/Clinic Note Heart and [...] ventricular systolic pressure is 35 mmHg. [1] [facility] with Dr. Douglas on 09/17/2021: CONCLUSIONS: [...] Daily, # 30 tab(s), Refills(s) 2, Pharmacy: [facility], 152, cm, 10/05/24 11:36:00 EST, Height/Length Dosing, 75.8, kg, 10/05/24 11:40:00 EST, Weight Dosing Follow-up with me in 3 months or sooner if needed Portions of this record may have been created with voice recognition artificial intelligence software, specifically Redeemr, Mapbar and or theAudience. Substitutions may have occurred due to the [...] drainage Procedure (more content not included)... Normal [facility] Comment on above: Result Comment: Elec tronically Signed By: Richar GAMEZ, Lokesh Brown.elmo\Date and Time Signed: 10/05/24 13:02 EST [place] 09-02-2024 L -------- -------- Specimen: [id number] Received: 09/05/24-1254 Status: VIRGILIO White Num: [id number] Spec Type: Cytology Subm Dr: Ryan Vazquez MD Tissues: A FNA SLIDES NOPATH (RT THYROID) Procedures: Cyto Int and Re, PAPSTN/5 -------- Age/ Patient Sex Location Account Attending Physician -------- Chloe Agarwal 68/F [facility] [id number] NON STAFF -------- SPEC NUM: [id number] RECD: 09/05/24 STATUS: VIRGILIO ROSSElisa NUM: [id number] MADHAV: 09/02/24- DR: Ryan Vazquez MD ENTERED: 09/05/[address] [facility] [address]: Heavenly Thao SPEC TYPE: Cytology DEPT: [facility] ENTERED BY: [id number] RECV BY: [id number] ORDERED: Cyto Int and Re, PAPSTN/5 ORDERED: Cyto Int and Re, PAPSTN/5 Pathological Diagnosis Nodule, right thyroid, fine needle aspiration:? Unsatisfactory for evaluation. Too few epithelial cells. [place]?Category?I Clinical Information US guided FNA Gross Description Received fixed in Cytolyt is 30 ml very pale pink clear fixed fluid for cytology said to have been obtained as Right thyroid nodule mid. ThinPrep preparations are prepared for microscopic examination. Also received are 4 spray fixed smeared slides and a Veracyte vial stored at -20 for microscopic examination. (NC/pa) CPT Codes 74516 -------- -------- Specimen: [id number] Received: 09/05/24 Status: PANFILOCharity White Num: [id number] Spec Type: Cytology Subm Dr: Ryan Vazquez MD Tissues: A FNA SLIDES NOPATH (RT THYROID) Procedures: Cyto Int and Re, PAPSTN/5 -------- Patient: Chloe Agarwal [id number] (Continued) -------- Signed (signature on file) Rhonda Bauer MD 09/06/24 1815 Normal [facility] CT Spine Lumbar w/ [...] Contrast amount in ml's: [address] [facility] Main OR PACU II Recordon Main OR PACU II Record Main OR PACU II Record PACU Phase II Document Type FT Summary Primary Physician: NONE, XXXX Finalized Date/Time: 08/19/24 14:04:04 Pt. Name: CHLOE AGARWAL/Sex: 1955 Female Med Rec #: [id number] Physician: SAM [employer] #: [id number] Pt. Type: O Room/Bed: / Admit/Disch: 08/19/24 [...] Signed By: Monika Sales RN 08/19/24 14:04 [facility] Main OR Preoperative Recordo n 08-19-2024 Main OR Preoperative Record Main OR Preoperative Record Holding Area Document Type FT Summary Primary Physician: NONE, XXXX Finalized Date/Time: 08/19/24 08:06:37 Pt. Name: CHLOE AGARWAL Arlen Powell/Sex: 1955 Female Med Rec #: [id number] Physician: SAM [employer] #: [id number] Pt. Type: O Room/Bed: / Admit/Disch: 08/19/24 [...] 08:06 Monika Sales RN 08/19/24 08:06 Normal [facility] XR Myelography Lumbosacralon 08-19-2024 XR Myelography Lumbosacral [...] mGy = 43.30 DAP = 869.87 Normal [facility] Heart and Vascular Office/Cl inic Noteon 07-16-2024 [...] with voice recognition artificial intelligence software, specifically Redeemr, Mapbar and or theAudience. Substitutions may have occurred due to the inherent limitations of voice recognition and artificial intelligence software. ATTESTATION: Documentation services were performed after patient or guardian consented to allow Nagi to record this visit. ASHLEIGH urban gardening specialist and provider reviewed before signing. ASHLEIGH: Malinda Sands Follow-up No qualifying data available Problem List/Past Medical History Ongoing BMI 34.0-34.9,adult Chest pain due to GERD Chronic GERD Duodenogastric bile reflux Dysphagia Epigastric pain Gastritis H/O: osteoarthritis Hiatal hernia with gastroesophag (more content not included)... Normal [facility] Comment on above: Result Comment: [...] in mGy = na DAP = na [facility] C Urineon 05-10-2024 Bacteria identified Cx [...] Locations R1: This test was performed at: [facility], [address] [place] [address], [address]- , , [facility] Comment on above: Performed By: #### 2 [id number] #### [facility] [address] [place] [address] BB Draw & Holdon 05-08-2024 BB D&H Sample drawn for Blood Ba Normal [facility] Comment on above: Performed By: #### 1 [id number] #### [facility] [address] [place] [address] CBC w/ Auto Diffon 4 Basophils/100 WBC (Bld) 1.1 % Normal 0.0-2.0 [facility] Comment on above: Performed By: #### 2 774204 #### [facility] [address] [place] [address] Basophils/Leukocytes Auto (Bld) [Pure # fraction] 0.1 E9/L Normal 0.0-0.2 [facility] Comment on above: Performed By: #### 2 [id number] #### [facility] [address] [place] [address] Eosinophils (Bld) [#/Vol] 0.1 E9/L Normal 0.0-0.5 [facility] Comment on above: Performed By: #### 2 [id number] #### [facility] [address] [place] [address] Eosinophils/100 WBC (Bld) 1.6 % Normal 0.0-8.0 [facility] Comment on above: Performed By: #### 2 725675 #### [facility] [address] [place] [address] Erythrocyte distribution width (RBC) [Ratio] 14.1 % Normal 10.9-14.2 [facility] Comment on above: Performed By: #### 2 634992 #### [facility] [address] [place] [address] Hematocrit (Bld) [Volume fraction] 38.2 % Normal 34.0-46.0 [facility] Comment on above: Performed By: #### 2 822665 #### [facility] [address] [place] [address] Hemoglobin (Bld) [Mass/Vol] 13.9 g/dL Normal 12.0-16.0 [facility] Comment on above: Performed By: #### 2 [id number] #### [facility] [address] [place] [address] Lymphocytes (Bld) [#/Vol] 2.3 E9/L Normal 1.0-4.0 [facility] Comment on above: Performed By: #### 2 [id number] #### [facility] [address] [place] [address] Lymphocytes/100 WBC (Bld) 26.4 % Normal 14.0-50.0 [facility] Comment on above: Performed By: #### 2 092125 #### [facility] [address] [place] [address] MCH (RBC) [Entitic mass] 32.6 pg Normal 27.0-34.0 [facility] Comment on above: Performed By: #### 2 [id number] #### [facility] [address] [place] [address] MCHC (RBC) [Mass/Vol] 36.3 g/dL High 31.4-36.0 [facility] Comment on above: Performed By: #### 2 [id number] #### [facility] [address] [place] [address] MCV (RBC) [Entitic vol] 89.9 fL Normal 80.0-100.0 [facility] Comment on above: Performed By: #### 2 191400 #### [facility] [address] [place] [address] Monocytes (Bld) [#/Vol] 0.8 E9/L Normal 0.2-1.0 [facility] Comment on above: Performed By: #### 2 668877 #### [facility] [address] [place] [address] Neutrophils (Bld) [#/Vol] 5.3 E9/L Normal 2.0-7.5 [facility] Comment on above: Performed By: #### 2 248847 #### [facility] [address] [place] [address] Neutrophils/100 WBC (Bld) 61.6 % Normal 36.0-75.0 [facility] Comment on above: Performed By: #### 2 660705 #### [facility] [address] [place] [address] Platelet 299.0 E9/L Normal 150.0-500. 0 [facility] Comment on above: Performed By: #### 2 396249 #### [facility] [address] [place] [address] Platelet mean volume (Bld) [Entitic vol] 8.0 fL Normal 6.4-10.8 [facility] Comment on above: Performed By: #### 2 973551 #### [facility] [address] [place] [address] RBC (Bld) [#/Vol] 4.3 E12/L Normal 4.3-5.9 [facility] Comment on above: Performed By: #### 2 [id number] #### [facility] [address] [place] [address] WBC corrected for nucl RBC Auto (Bld) [#/Vol] 8.6 E9/L Normal 4.0-11.0 [facility] Comment on above: Performed By: #### 2 222268 #### [facility] [address] [place] [address] CHEMISTRYOrdered By: SYSTEM SYSTEM on 05-08-2024 Albumin [...] Sensitivity Troponin I Instructions For Use, [facility], May 2018) Urea nitrogen [Mass/Vol] 22 mg/dL High 5 - 21 mg/dL Remisol Chem Urea nitrogen/Creatinine [Mass ratio] 28 mg/mg High 10 - 20 Remisol Chem CHEMISTRYOrdered By: Heavenly COLEMAN User on 05-08-2024 Glucose [Mass/Vol] 111 mg/dL High 55 - 99 mg/dL [facility] POC Subsection Comment on above: Result Comment: Ovidio medrano RN/ POC Device SN [id number] Invalid Interpretation Code [facility] POC Subsection POC User ID [id number] 1 Invalid Interpretation Code [facility] POC Subsection POC Username CLAUS FRAZIER Invalid Interpretation Code [facility] POC Subsection CMPon 05-08-2024 Albumin [Mass/Vol] 4.4 g/dL Normal 3.3-5.0 [facility] Comment on above: Performed By: #### 2 [id number] #### [facility] [address] [place] [address] Albumin/Globulin (S) [Mass conc ratio] 1.5 Normal 1.1-2.2 [facility] Comment on above: Performed By: #### 2 [id number] #### [facility] [address] [place] [address] ALP [Catalytic activity/Vol] 59 Int._Unit/L Normal 21-98 [facility] Comment on above: Performed By: #### 2 [id number] #### [facility] [address] [place] [address] ALT No additional P-5'-P [Catalytic activity/Vol] 18 Int._Unit/L Normal 6-46 [facility] Comment on above: Performed By: #### 2 594999 #### [facility] [address] [place] [address] Anion gap [Moles/Vol] 14 mmol/L Normal 6-16 [facility] Comment on above: Performed By: #### 2 582746 #### [facility] [address] [place] [address] AST [Catalytic activity/Vol] 18 Int._Unit/L Normal 5-43 [facility] Comment on above: Performed By: #### 2 594058 #### [facility] [address] [place] [address] Bilirubin [Mass/Vol] 1.1 mg/dL Normal 0.0-1.1 [facility] Comment on above: Performed By: #### 2 974629 #### [facility] [address] [place] [address] Calcium [Mass/Vol] 9.9 mg/dL Normal 8.9-11.1 [facility] Comment on above: Performed By: #### 2 428379 #### [facility] [address] [place] [address] Chloride [Moles/Vol] 103 mmol/L Normal 101-111 [facility] Comment on above: Performed By: #### 2 [id number] #### [facility] [address] [place] [address] CO2 [Moles/Vol] 26 mmol/L Normal 21-31 [facility] Comment on above: Performed By: #### 2 [id number] #### [facility] [address] [place] [address] Creatinine [Mass/Vol] 0.8 mg/dL Normal 0.5-1.3 [facility] Comment on above: Performed By: #### 2 471066 #### [facility] [address] [place] [address] Globulin (S) [Mass/Vol] 2.9 g/dL Normal 1.4-4.0 [facility] Comment on above: Performed By: #### 2 780397 #### [facility] [address] [place] [address] Glucose [Mass/Vol] 112 mg/dL Normal 55-199 [facility] Comment on above: Performed By: #### 2 034844 #### [facility] [address] [place] [address] Potassium [Moles/Vol] 3.7 mmol/L Normal 3.5-5.3 [facility] Comment on above: Performed By: #### 2 560400 #### [facility] [address] [place] [address] Protein [Mass/Vol] 7.3 g/dL Normal 6.0-7.8 [facility] Comment on above: Performed By: #### 2 [id number] #### [facility] [address] [place] [address] Sodium [Moles/Vol] 139 mmol/L Normal 135-145 [facility] Comment on above: Performed By: #### 2 996112 #### [facility] [address] [place] [address] Urea nitrogen [Mass/Vol] 22 mg/dL High 5-21 [facility] Comment on above: Performed By: #### 2 184254 #### [facility] [address] [place] [address] Urea nitrogen/Creatinine [Mass ratio] 28 No Units High 10-20 [facility] Comment on above: Performed By: #### 2 167545 #### [facility] [address] [place] [address] COAGULATIONOrdered By: Yissel Amos on 05-08-2024 aPTT Coag (PPP) [Time] 30.0 s Normal 25.1 - 36.5 second(s) [facility] Auto Coag Comment on above: Interpretive Data: [...] the same coagulation reagent and instrumentation as [facility]. Currently there are no coagulation studies available worldwide for children to 14 days, and no normal ranges. Heparin therapeutic range (represented by Anti-Factor Xa activity of 0.2 - 0.4 U/mL) corresponds to PTT of 56.6 - 109.0 sec. INR Coag (PPP) [Relative time] 0.97 {INR} Invalid Interpretation Code [facility] [facility] Comment on above: Interpretive Data: I NR results are specifically intended to assess patients stabilized on long-term Anticoagulation therapy suggested INR s Less Intensive Anticoagulation 2.0 3.0 Conventional Range 3.0 4.5 PT Coag (PPP) [Time] 10.9 s Normal 9.4 - 1 2.5 second(s) [facility] Comment on above: Interpretive Data: [...] the same coagulation reagent and instrumentation as [facility]. Currently there are no coagulation studies available [...] MD Transcribed by: SCOTTY Technologist: IVY Normal [facility] Capillary Glucose POCon 04-19 Glucose [Mass/Vol] 111 mg/dL High 55-99 [facility] Comment on above: Result Comment: Ovidio medrano RN/ Performed By: #### 2 [id number] #### [facility] [address] [place] [address] ED Clinical Summaryon 2023 ED Clinical Summary ED Clinical Summary [address] [address] ED Clinical Summary Person Information Name: CHLOE AGARWAL [facility] Age: 68 Years : 1955 Sex: Female Language: Finnish PCP: Vick Mcghee MD Marital Status: Visit [...] 05/08/2024 09:45:49 05/08/2024 09:45:49 05/08/2024 09:45:49 ADDRESS: [facility] [id number] [facility] DOC NOTES: MEDICAL INFORMATION: Prescriptions Given: New Medications [facility], [address], [place] [id number], [phone] cephalexin (Keflex 500 mg Cap) 1 Capsules [...] Follow up: With: Address: When: Vick Mcghee [address] [place] [address], [facility] [place] [id number] Business (1) In 3 days 05/11/2024 Comments: Call the office of your primary care doctor to arrange for follow-up within the above-stated timeframe. Follow-up with your primary care doctor about this ED visit. You should rev (more content not included)... Normal [facility] ED Note-Physicianon 05-08-20 ED Note-Physician ED Note-Physician [...] under a lot of stress as her bucnkr-io-xjn just and she has a to attend [...] malignant neopla (more content not included)... Normal [facility] Comment on above: Result Comment: Elec tronically Signed By: Nelson Solares DO\.br\Date and Time Signed: 05/08/24 11:48 EDT ED Patient Summaryon 024 ED Patient Summary ED Patient Summary [address] [address] Patient Discharge Instructions Person Information Name: CHLOE AGARWAL Age: 68 Years Arrival Date: 05/08/2024 07:15:15 Discharge Diagnosis: Acute UTI; Vertigo Primary Care Physician: Vick Mcghee MD Provider Information Primary Provider: Nelson Solares DO Advanced Angle Roll Operator:None The exam and treatment you received in the Emergency Department were for an urgent problem and are not intended as complete care. It is important that you follow up with a doctor, nurse practitioner, or physician?s insurance administrative assistant for ongoing care. If your [...] Follow-up Instructions: With: Address: When: Vick Mcghee [address] [place] [address], [place] [place] [address] Business (1) In 3 days [...] opioids can be used to help relieve vwbdmank-pt-mvhnug pain and are often prescribed following a [...] opioids in (more content not included)... Normal [facility] HEMATOLOGYOrdered By: SYSTEM SYSTEM on 05-08-2024 Basophils/100 [...] 05-08-2024 Magnesium [Mass/Vol] 2.2 mg/dL Normal 1.3-2.4 [facility] Comment on above: Performed By: #### 2 [id number] #### [facility] [address] [place] [address] PT & PTTon 05-08-2024 aPTT Coag (PPP) [Time] 30.0 second(s) Normal 25.1-36.5 [facility] Comment on above: Result Comment: Para meter [...] the same coagulation reagent and instrumentation as [facility]. Currently there are no coagulation studies available worldwide for children to 14 days, and no normal ranges. Heparin therapeutic range (represented by Anti-Factor Xa activity of 0.2 - 0.4 U/mL) corresponds to PTT of 56.6 - 109.0 sec. Performed By: #### 1 [id number] #### [facility] [address] [place] [address] INR Coag (PPP) [Relative time] 0.97 {INR} Invalid Interpretation Code [facility] Comment on above: Result Comment: INR results are specifically intended to assess patients stabilized on long-term Anticoagulation therapy suggested INR?s ?Less Intensive Anticoagulation? 2.0 ? 3.0 Conventional Range 3.0 ? 4.5 Performed By: #### 1 [id number] #### [facility] [address] [place] [address] PT Coag (PPP) [Time] 10.9 second(s) Normal 9.4-12.5 [facility] Comment on above: Result Comment: 15 d [...] the same coagulation reagent and instrumentation as [facility]. Currently there are no coagulation studies available worldwide for children to 14 days, and no normal ranges. Performed By: #### 1 [id number] #### [facility] [address] [place] [address] Troponin 0 Hr.on 05-08-2024 Troponin HS 6.20 pg/mL Low 10.10-27.1 0 [facility] Comment on above: Result Comment: The 95% CI (Confidence Interval) PPV (Positive Predictive Value) for myocardial infarction in females is 38 pg/mL, in males 51 pg/mL. The results should be used in conjunction with clinical conditions of myocardial infarction. (Access High Sensitivity Troponin I Instructions For Use, Demetra Jay, May 2018) Performed By: #### 1 [id number] #### [facility] [address] [place] [address] UA with Cult Rflxon 05-08-20 24 Bacteria Auto Ql (U) Trace Normal Trace Fish er [facility] Comment on above: Performed By: #### 4 [id number] #### [facility] [address] [place] [address] Bilirubin Ql (U) Negative Normal Negative [facility] Comment on above: Performed By: #### 4 [id number] #### [facility] [address] [place] [address] Clarity (U) Clear Normal Clear [facility] Comment on above: Performed By: #### 4 [id number] #### [facility] [address] [place] [address] Color (U) Colorless Abnormal Yellow [facility] Comment on above: Result Comment: Micr oscopic readings are only performed on those samples that meet specific criteria set forth by [facility]. Performed By: #### 4 [id number] #### [facility] [address] [place] [address] Epithelial cells.squamous Auto (Urine sed) [#/Area] 0-2 Invalid Interpretation Code [facility] Comment on above: Performed By: #### 4 [id number] #### [facility] [address] [place] [address] Glucose Ql (U) Negative Normal Negative [facility] Comment on above: Performed By: #### 4 [id number] #### [facility] [address] [place] [address] Hemoglobin Auto test strip (U) [Mass/Vol] Negative Normal Negative [facility] Comment on above: Performed By: #### 4 [id number] #### [facility] [address] [place] [address] Ketones Auto test strip Ql (U) Negative Normal Negative [facility] Comment on above: Performed By: #### 4 [id number] #### [facility] [address] [place] [address] Leukocyte esterase Auto test strip Ql (U) 250 Danielle/uL Abnormal Negative [facility] Comment on above: Performed By: #### 4 [id number] #### [facility] [address] [place] [address] Mucus Auto Ql (U) Negative Normal Negative [facility] Comment on above: Performed By: #### 4 [id number] #### [facility] [address] [place] [address] Nitrite Auto test strip Ql (U) Negative Normal Negative [facility] Comment on above: Performed By: #### 4 [id number] #### [facility] [address] [place] [address] pH (U) 7.0 [pH] Invalid Interpretation Code 5.0-9.0 [facility] Comment on above: Performed By: #### 4 [id number] #### [facility] [address] [place] [address] Protein Ql (U) Negative Normal Negative [facility] Comment on above: Performed By: #### 4 [id number] #### [facility] [address] [place] [address] RBC Ql (U) 0-3 Normal 0-3 [facility] Comment on above: Performed By: #### 4 [id number] #### [facility] [address] [place] [address] Specific gravity (U) [Rel density] 1.008 Invalid Interpretation Code 1.005-1.03 0 [facility] Comment on above: Performed By: #### 4 [id number] #### [facility] [address] [place] [address] Urobilinogen (U) [Mass/Vol] Negative Normal Negative [facility] Comment on above: Performed By: #### 4 [id number] #### [facility] [address] [place] [address] WBC Auto (Urine sed) [#/Area] 6-15 Abnormal 0-5 [facility] Comment on above: Performed By: #### 4 [id number] #### [facility] [address] [place] [address] Type of Urine collection method Clean Catch Normal [facility] Comment on above: Performed By: #### 4 [id number] #### [facility] [address] [place] [address] URINALYSISOrdered By: SYSTEM SYSTEM on 05-08-2024 Bacteria [...] that meet specific criteria set forth by [facility]. Epithelial cells.squamous Auto (Urine sed) [#/Area] [...] 6-15 graded/HPF Invalid Interpretation Code 0-5graded/ HPF [facility] UA Auto SS URINALYSISOrdered By: Nelson Solares on 05-08-2024 UA Spec Desc Clean Catch (05/08/24 8:05 AM) Normal [facility] UA Auto SS Work Phone: XR Chest [...] mGy = . DAP = . Normal [facility] eGFRon 05-08-2024 eGFR 81 mL/min/1.73 m2 Normal >=59 [facility] Comment on above: Order Comment: Order added by Discern Expert. Performed By: #### 1 [id number] #### [facility] [address] [place] [address] Heart and Vascular Office/ inic Noteon 01-17-2024 Heart and Vascular Office/Clinic [...] She had blood work done by her international logistics coordinator at [facility]. Her cholesterol was low. She has been [...] before bed. I will obtain labs from [facility] to make sure she does not have abnormal electrolytes. 3. Sleep apnea. I will check with Dr. Husain regarding CPAP. Follow-up The patient will follow up in 6 months. Portions of this record may have been created with voice recognition artificial intelligence software, specifically Redeemr, Mapbar and or theAudience. Substitutions may have occurred due to the inherent limitations of voice recognition and artificial intelligence software. ATTESTATION: Documentation services were performed after patient or guardian consented to allow [facility] to record this visit. ASHLEIGH urban gardening specialist and provider reviewed before signing. ASHLEIGH: Florinda Maguire. Follow-up No qualifying data available Problem List/Past Medical History Ongoing BMI 34.0-34.9,adult Chest pain due to GERD Chronic GERD Duodenogastric bile reflux Dysphagia Epigastric pain Gastritis H/O: osteoarthritis Hiatal hernia with gastroesophageal reflux HTN (hypertension) Osteoporosis Regurgitation of stomach contents Screenin (more content not included)... Normal [facility] Comment on above: Result Comment: Elec tronically Signed By: Vincent CANTRELL, Willie Tovar\.br\Date and Time Signed: 01/17/24 10:22 EDT\.br\Electronically Co-Signed By: Oseo, Phoebe S\.br\Date and Time Co-Signed: 12/18/23 16:08 EST [facility] 12-21-2023 Outside [facility] [id number]#1.00TIFF Normal [facility] Physician Orderon 12-21-2023 Physician Order [id number]#1.00TIFF Normal [facility] Ambulatory Visit Summaryon 0 12-18-2023 Ambulatory Visit Summary CHLOE AGARWAL :1955 Visit Date:12/18/2023 Ambulatory Visit Instructions Your Care Team Attending Physician - Vincent CANTRELL, Willie Tovar Primary Care Physician - Nathalie CANTRELL, Vick Referring Physician - NONE, XXXX This Is Your Medications List [facility] Prescription (Adult Blood Pressure Monitor [...] Tablets By Mouth At bedtime Pickup at [facility] Unchanged meloxicam (meloxicam 15 mg Tab) 1 Tablets By Mouth Every day Unchanged metoprolol (metoprolol 50 mg ER Tab) 2 Tablets By Mouth Every day Unchanged [facility] Prescription (Adult Blood Pressure Monitor [...] Mouth 2 times a day Pharmacy Information [facility]: [address] [place], [place] [id number] [phone] Allergies gabapentin (Headache) lisinopril (Coughing) sulfa drugs [...] for choosing us for your care. Normal [facility] ALL THYROXINE (T4) FREEon Free T4 [Mass/Vol] 1.30 ng/dL 0.76 - 1.46 ng/dL [facility] ALL LIPID PROFILE (FASTING)o n 11-30-2023 CHOL HDL RATIO 3.0 [facility] Comment on above: 3.3 - 4.4 LOW RISK 4.4 - 7.1 AVERAGE RISK 7.1 - 11.0 MODERATE RISK >11.0 HIGH RISK Cholesterol [Mass/Vol] 177 mg/dL NINF - 200 mg/dL [facility] Cholesterol in HDL [Mass/Vol] 59 mg/dL 40 - 60 mg/dL [facility] Comment on above: > or =60 mg/dl - LOW CARDIOVASCULAR RISK <40 mg/dl - HIGH CARDIOVASCULAR RISK Magnesium [Mass/Vol] 96.8 mg/dL [facility] Comment on above: <100 mg/dl OPTIMAL 100-129 mg/dl NEAR OR ABOVE OPTIMAL 130-159 mg/dl BORDERLINE HIGH 160-189 mg/dl HIGH >190 mg/dl VERY HIGH Magnesium [Mass/Vol] 21.2 mg/dL [facility] Triglyceride [Mass/Vol] 106 mg/dL NINF - 150 mg/dL [facility] ALL THYROID STIM HORMONEon 0 11-30-2023 TSH Qn 0.028 m[IU]/L Low [facility] CCF CMP (CMP) (FOR REMOTE FH C USE)on 11-30-2023 Albumin [Mass/Vol] 3.6 g/dL 3.4 - 5.0 g/dL [facility] ALBUMIN GLOBULIN RATIO 1.0 [facility] ALP [Catalytic activity/Vol] 62 U/L 46 - 116 U/L [facility] ALT [Catalytic activity/Vol] 23 U/L 14 - 59 U/L [facility] Anion gap [Moles/Vol] 12.6 mmol/L [facility] AST [Catalytic activity/Vol] 17 U/L 15 - 37 U/L [facility] Bilirubin [Mass/Vol] 1.2 mg/dL High 0.2 - 1 .0 mg/dL [facility] Calcium [Mass/Vol] 9.1 mg/dL 8.5 - 10. 1 mg/dL [facility] Chloride [Moles/Vol] 102 mmol/L 98 - 10 7 mmol/L [facility] CO2 [Moles/Vol] 30.4 mmol/L 21.0 - 32.0 mmol/L [facility] Creatinine [Mass/Vol] 0.99 mg/dL 0.55 - 1.02 mg/dL [facility] GFR/1.73 sq M.predicted CKD-EPI (S/P/Bld) [Vol rate/Area] >60 60 - PINF [facility] Globulin (S) [Mass/Vol] 3.6 g/dL [facility] Glucose [Mass/Vol] 110 mg/dL High 74 - 106 mg/dL [facility] Potassium [Moles/Vol] 4.0 mmol/L 3.5 - 5.1 mmol/L [facility] Protein [Mass/Vol] 7.2 g/dL 6.4 - 8.2 g/dL [facility] Sodium [Moles/Vol] 141 mmol/L 136 - 145 mmol/L [facility] TBH EGFR-NON AF CYPRIOT 56 Low 60 - PINF [facility] Urea nitrogen [Mass/Vol] 31.0 mg/dL High 7.0 - 18.0 mg/dL [facility] Urea nitrogen/Creatinine [Mass ratio] 31.3 mg/mg [facility] IGP,APTIMA HPV,AGE GDLNon AGE GDLN ACOG TESTING Note . [facility] Comment on above: TESTS RESULT FLAG U NITS REF RANGE LAB Clinician Provided Cytology Information Source.............Cervix;Endocervix No. of containers..01 ThinPrep Vial Age Algo ACOG Adamaris... Note 01 <21 or >65 or no age provided FLAG LEGEND: L-Low Normal,H-High Normal,LL-Alert Low,HH-Alert High <-Panic Low,>-Panic High,A-Abnormal,AA-Critical Abnormal Performed at: 01 =[facility] [address] [place] [address] Adelina Nunez MD, PAP IG (IMAGE GUIDED) Note . [facility] Comment on above: TESTS RESULT FLAG UN ITS REF RANGE LAB DIAGNOSIS: 02 NEGATIVE FOR INTRAEPITHELIAL LESION OR MALIGNANCY. Specimen adequacy: 02 Satisfactory for evaluation. Endocervical and/or squamous metaplastic cells (endocervical component) are present. Performed by: 02 Vicky Madsen, Feeder Catcher ([facility]) . 02 Note: Note 02 The Pap smear is a screening test designed to aid in the detection of premalignant and malignant conditions of the uterine cervix. It is not a diagnostic procedure and should not be used as the sole means of detecting cervical cancer. Both false-positive and false-negative reports do occur. Test Methodology: Note 02 The [employer](R) Mechanical Engineering Professor was unable to read this specimen. Therefore a manual review was performed. FLAG LEGEND: L-Low Normal,H-High Normal,LL-Alert Low,HH-Alert High <-Panic Low,>-Panic High,A-Abnormal,AA-Critical Abnormal Performed at: [address] [address] Adelina Nunez MD, Performed at: =G - [facility] [address] [id number] Designer: Adelina Nunez MD, Phone: [phone] Performed at: - [facility] [address] [id number] Designer: Adelina Nunez MD, Phone: [phone] [facility]SPATULA CERVIX ENDOCERVIX [facility] No Panel Informationon 11-30 Interpretation and review of laboratory results Abnormal [facility] CLINPPG [employer] Se[facility]ly Consent for Treatmenton Consent for Treatment [id number]#1.00TIFF Normal [facility] Consultation Noteon 11-20-19 24 Consultation Note Patient: [...] QID, # 120 tab(s), Refills(s) 3, Pharmacy: [facility], 152, cm, 04/03/23 9:20:00 EDT, Height/Length Dosing, 80, kg, 04/03/23 9:20:00 EDT, Weight Dosing Protonix 40 mg Tab-DR: 40 mg = 1 tab(s), Oral, BID, # 120 tab(s), Refills(s) 0, Pharmacy: [facility], 152.4, cm, 04/01/21 7:20:00 EDT, Height/Length Dosing, 85.5, kg, 04/01/21 7:20:00 EDT, Weight Dosing hydrochlorothiazide 12.5 mg Cap: 12.5 mg = 1 cap(s), Oral, Daily, # 30 cap(s), Refills(s) 6, Pharmacy: [facility], 152, cm, 11/17/23 11:29:00 EST, Height/Length Dosing, 79.6, kg, 11/17/23 11:29:00 EST, Weight Dosing losartan 100 mg Tab: 100 mg = 1 tab(s), Oral, Bedtime, # 90 tab(s), Refills(s) 1, Pharmacy: [facility], 152, cm, 07/14/23 9:26:00 EDT, Height/Length Dosing, 76.9, kg, 07/14/23 9:26:00 EDT, Weight Dosing pregabalin 25 mg Cap: 25 mg = 1 cap(s), Oral, BID, start with once a day for 3-5 days. If doing well can go to BID, # 60 cap(s), Refills(s) 0, Pharmacy: [facility], 152, cm, 10/26/23 13:07:00 EST, Height/Length [...] All Problems Chronic GERD / SNOMED CT 887407366 / Confirmed Unilateral primary osteoarthritis, right knee / SNOMED CT 5152029702 / Confirmed Gastritis / SNOMED CT 6427173 / Confirmed Vertigo / SNOMED CT 3810440663 / Confirmed BMI 34.0-34.9,adult / SNOMED CT 839165906 / Confirmed Regurgitation of stomach contents / SNOMED CT 073636043 / Confirmed Osteoporosis / SNOMED CT 399986152 / Confirmed HTN (hypertension) / SNOMED CT 7518947944 / Confirmed Dysphagia / SNOMED CT 69277291 / Confirmed Epigastric pain / SNOMED CT 221365054 / Confirmed Chest pain due to GERD / SNOMED CT 79188637 / Confirmed Screening for malignant neoplasm of colon / SNOMED CT 076572448 / Confirmed H/O: osteoarthritis / SNOMED CT 230278231 / Confirmed Hiatal hernia with gastroesophageal reflux / SNOMED CT 1756150453 / Confirmed Duodenogastric bile reflux / SNOMED CT 56205237 / Confirmed Sigmoid diverticulosis / SNOMED CT 8477278262 / Confirmed Tendonitis / SNOMED CT 96351696 / Confirmed Resolved: GERD - Gastro-esophageal reflux disease / SNOMED CT 1035061767 Resolved: Appendicitis / SNOMED CT 913397896 Resolved: Cough / SNOMED CT 36085900 Resolved: Sinus drainage / SNOMED CT 725259392 Canceled: GERD with apnea / SNOMED CT 8419701242 Objective Vital Signs 11/20/2023 13:11 EST Peripheral [...] extremity streng (more content not included)... Normal [facility] Comment on above: Result Comment: Elec tronically Signed By: Vicky Castillo PA-C\.br\Date and Time Signed: 11/20/23 13:40 EST Office/Clinic Note-Physician on 11-20-2023 Office/Clinic Note-Physician [id number]#1.00TIFF Normal [facility] Patient Correspondenceon Patient Correspondence [id number]#1.00TIFF [facility] Consent for Treatmenton 10-21 Consent for Treatment [id number]#1.00TIFF [facility] Heart and Vascular Office/Cl inic Noteon 11-17-2023 Heart and Vascular Office/Clinic Note History of Present Illness Patient is a very pleasant 68-year-old hypertensive female, nondiabetic, non-smoker, referred to our office after she went to the emergency room on 09/02/2021 with abdominal pain radiating into her back. She reportedly had a stress test, echocardiogram and Holter monitor at [facility] prior to her ER visit on 09/02/2021. Troponins were negative x1, and she was assigned a heart score of 4 and discharged home. In addition the patient apparently had a syncopal episode several weeks prior to her presentation, but cannot recall whether she had any chest pain prior to her syncope.. Her echocardiogram done at [facility] on 08/20/2021 which showed left ventricular systolic [...] took place at an outside facility at [facility] on 09/03/2021 which was read as normal. [...] In addition she has a brother in [place] who apparently has coronary disease the specific [...] concerning lesion (more content not included)... Normal [facility] Comment on above: Result Comment: Elec tronically Signed By: MISAEL CANTRELL, Landon Mckinley\.elmo\Date and Time Signed: 11/17/23 11:44 EST Physician Orderon 11-17-2023 Physician Order [id number]#1.00TIFF Normal [facility] XR Pelvis 1 or 2 [facility] XR [...] mGy = na DAP = na Normal [facility] XR Spine Lumbosacral 2 or 3 [facility] [...] mGy = na DAP = na Normal [facility] Consent for Treatmenton Consent for Treatment [id number]#1.00TIFF Normal [facility] Consent for Treatment [id number]#1.00TIFF Normal [facility] Consultation Noteon 10-26-19 24 Consultation Note Patient: [...] QID, # 120 tab(s), Refills(s) 3, Pharmacy: [facility], 152, cm, 04/03/23 9:20:00 EDT, Height/Length Dosing, 80, kg, 04/03/23 9:20:00 EDT, Weight Dosing Protonix 40 mg Tab-DR: 40 mg = 1 tab(s), Oral, BID, # 120 tab(s), Refills(s) 0, Pharmacy: [facility], 152.4, cm, 04/01/21 7:20:00 EDT, Height/Length Dosing, 85.5, kg, 04/01/21 7:20:00 EDT, Weight Dosing losartan 100 mg Tab: 100 mg = 1 tab(s), Oral, Bedtime, # 90 tab(s), Refills(s) 1, Pharmacy: [facility], 152, cm, 07/14/23 9:26:00 EDT, Height/Length Dosing, 76.9, kg, 07/14/23 9:26:00 EDT, Weight Dosing metoprolol 50 mg ER Tab: 50 mg = 1 tab(s), Oral, Daily, # 90 tab(s), Refills(s) 1, Pharmacy: [facility], 152, cm, 07/14/23 9:26:00 EDT, Height/Length Dosing, 76.9, kg, 07/14/23 9:26:00 EDT, Weight Dosing pregabalin 25 mg Cap: 25 mg = 1 cap(s), Oral, BID, start with once a day for 3-5 days. If doing well can go to BID, # 60 cap(s), Refills(s) 0, Pharmacy: [facility], 152, cm, 10/26/23 13:07:00 EST, Height/Length Dosing, 70.5, kg, 10/26/23 13:07:00 EST, Weigh... Documented Medications Documented Aleve: Refills(s) 0 Multi Vitamin+: Oral, Daily, Refill(s) 0 alendronate 70 mg Tab: TAKE 1 TABLET BY MOUTH 30 MINUTES BEFORE first food once a week, Prophylaxis ropinirole: 0.5 mg, Oral, Refills(s) 0 Problem list: All Problems Chronic GERD / SNOMED CT 929947592 / Confirmed Unilateral primary osteoarthritis, right knee / SNOMED CT 3743145749 / Confirmed Gastritis / SNOMED CT 0231146 / Confirmed Vertigo / SNOMED CT 9051957775 / Confirmed BMI 34.0-34.9,adult / SNOMED CT 463317131 / Confirmed Regurgitation of stomach contents / SNOMED CT 042203518 / Confirmed Osteoporosis / SNOMED CT 288057762 / Confirmed HTN (hypertension) / SNOMED CT 5675653611 / Confirmed Dysphagia / SNOMED CT 30722288 / Confirmed Epigastric pain / SNOMED CT 946011297 / Confirmed Chest pain due to GERD / SNOMED CT 03839380 / Confirmed Screening for malignant neoplasm of colon / SNOMED CT 808409756 / Confirmed H/O: osteoarthritis / SNOMED CT 454938036 / Confirmed Hiatal hernia with gastroesophageal reflux / SNOMED CT 0015889530 / Confirmed Duodenogastric bile reflux / SNOMED CT 53926585 / Confirmed Sigmoid diverticulosis / SNOMED CT 5184790376 / Confirmed Tendonitis / SNOMED CT 55989199 / Confirmed Resolved: GERD - Gastro-esophageal reflux disease / SNOMED CT 3833354691 Resolved: Appendicitis / SNOMED CT 016493185 Resolved: Cough / SNOMED CT 77232309 Resolved: Sinus drainage / SNOMED CT 904069406 Canceled: GERD with apnea / SNOMED CT 8415953575 Objective Vital Signs 10/26/2023 12:48 EST Peripheral Pulse Rate 66 bpm Respiratory Rate 20 br/min Systolic Blood Pressure 143 mmHg HI Diastolic Blood Pressure 88 mmHg Mean Arterial Pressure, Cuff 106 mmHg General: Alert and oriented, No acute distress. Overweight Eye: Normal conjunctiva. HENT: Normocephalic, Normal hearing. Cardiovascular: No edema. Musculoskeletal Nor (more content not included)... Normal [facility] Comment on above: Result Comment: Elec tronically Signed By: Vicky Castillo PA-C\.br\Date and Time Signed: 10/26/23 13:22 EST Legal Correspondence Officeo n 10-26-2023 Legal Correspondence Office [id number]#1.00TIFF Normal [facility] Office/Clinic Note-Physician on 10-26-2023 Office/Clinic Note-Physician [id number]#1.00TIFF Normal [facility] Patient Correspondenceon Patient Correspondence [id number]#1.00TIFF Normal [facility] Patient Correspondence [id number]#1.00TIFF Normal [facility] Patient Correspondence [id number]#1.00TIFF Normal [facility] Patient Correspondence [id number]#1.00TIFF Normal [facility] Patient History Officeon Patient History Office [id number]#1.00TIFF Normal [facility] Physician Orderon 10-26-2023 Physician Order [id number]#1.00TIFF Normal [facility] Physician Order [id number]#1.00TIFF Normal [facility] Consent for Procedure/Surger yon 10-07-2023 Consent for Procedure/Surgery [id number]#1.00TIFF Normal [facility] Consent for Treatmenton 09-19 Consent for Treatment [id number]#1.00TIFF Normal [facility] Discharge Instructionson Discharge Instructions [id number]#1.00TIFF Normal [facility] IntraOperative Documentson 12-08-2022 IntraOperative Documents [id number]#1.00TIFF Christina [facility] Main OR Intraoperative Recor don 10-07-2023 Main OR Intraoperative Record IntraOp Document Type FTPM Summary Primary Physician: Claudio Monroe DO Finalized Date/Time: 10/07/23 09:50:14 Pt. Name: ANY CHLOEHO Powell/Sex: 1955 Female Med Rec #: [id number] Physician: Claudio Monroe DO Financial #: [id number] Pt. Type: P Room/Bed: / Admit/Disch: 10/07/23 [...] Antoinette Brito Role Performed Surgeon - Primary Coke Loader - Primary Scrub - Primary Time In 10/07/23 09:41:00 10/07/23 09:41:00 10/07/23 09:41:00 Time Out 10/07/23 09:50:00 10/07/23 09:50:00 10/07/23 09:50:00 Procedure TRANSFORAMINAL EPIDURAL TRANSFORAMINAL EPIDURAL TRANSFORAMINAL EPIDURAL STEROID INJECTIO(Right) STEROID INJECTIO(Right) STEROID INJECTIO(Right) Comments Last Modified By: Bhargav DUMONT, Lashanda Durant RN, Lashanda Elizalde RN 10/07/23 09:49:59 10/07/23 09:49:59 10/07/23 09:49:59 Entry 4 Case Attendee Faustino Dorado Role Performed List Of First Job Ideas Time In 10/07/23 09:41:00 Time Out 10/07/23 [...] and tissue Entry 1 Skin Integrity Intact, [place], Warm, and Skin Abnormality No Dry Outcomes [...] Press Point (more content not included)... Normal [facility] Main OR Preoperative Recordo n 10-07-2023 Main OR Preoperative Record Holding Area Document Type FTPM Summary Primary Physician: Claudio Monroe DO Finalized Date/Time: 10/07/23 09:09:26 Pt. Name: ANYCHLOE/Sex: 1955 Female Med Rec #: [id number] Physician: Claudio Monroe DO Financial #: [id number] Pt. Type: P Room/Bed: / Admit/Disch: 10/07/23 [...] No Patient states Yes Comment - Adult Gilbetro-spouse postop adult Supervision supervision available Case Cancelled in No Holding Area see comments below for reason Last Modified By: Shea Aguirre RN 10/07/23 09:09:21 Finalized By: Shea Aguirre RN Document Signatures Signed By: Shea Aguirre RN 10/07/23 09:09 Normal [facility] Patient Correspondenceon Patient Correspondence [id number]#1.00TIFF Normal [facility] Consent for Treatmenton Consent for Treatment [id number]#1.00TIFF [facility] Consultation Noteon 09-22-20 Consultation Note Patient: [...] QID, # 120 tab(s), Refills(s) 3, Pharmacy: [facility], 152, cm, 04/03/23 9:20:00 EDT, Height/Length Dosing, 80, kg, 04/03/23 9:20:00 EDT, Weight Dosing Medrol 4 mg Tab: = 1 packet(s), Oral, As Directed, as directed on package labeling, X 6 day(s), # 21 tab(s), Refills(s) 0, Pharmacy: [facility], 152, cm, 09/22/23 11:39:00 EST, Height/Length Dosing, 70.5, kg, 09/22/23 11:39:00 EST, Weight Dosing Protonix 40 mg Tab-DR: 40 mg = 1 tab(s), Oral, BID, # 120 tab(s), Refills(s) 0, Pharmacy: [facility], 152.4, cm, 04/01/21 7:20:00 EDT, Height/Length Dosing, 85.5, kg, 04/01/21 7:20:00 EDT, Weight Dosing losartan 100 mg Tab: 100 mg = 1 tab(s), Oral, Bedtime, # 90 tab(s), Refills(s) 1, Pharmacy: [facility], 152, cm, 07/14/23 9:26:00 EDT, Height/Length Dosing, 76.9, kg, 07/14/23 9:26:00 EDT, Weight Dosing metoprolol 50 mg ER Tab: 50 mg = 1 tab(s), Oral, Daily, # 90 tab(s), Refills(s) 1, Pharmacy: [facility], 152, cm, 07/14/23 9:26:00 EDT, Height/Length Dosing, 76.9, kg, 07/14/23 9:26:00 EDT, Weight Dosing Documented Medications Documented Aleve: Refills(s) 0 Multi Vitamin+: Refill(s) 0 alendronate 70 mg Tab: TAKE 1 TABLET BY MOUTH 30 MINUTES BEFORE first food once a week, Prophylaxis ropinirole: 0.5 mg, Oral, Refills(s) 0 Problem list: All Problems BMI 34.0-34.9,adult / SNOMED CT 504368031 / Confirmed Chest pain due to GERD / SNOMED CT 54817830 / Confirmed Chronic GERD / SNOMED CT 016391843 / Confirmed Duodenogastric bile reflux / SNOMED CT 41688536 / Confirmed Dysphagia / SNOMED CT 25800014 / Confirmed Epigastric pain / SNOMED CT 749466248 / Confirmed Gastritis / SNOMED CT 0495434 / Confirmed H/O: osteoarthritis / SNOMED CT 633114189 / Confirmed Hiatal hernia with gastroesophageal reflux / SNOMED CT 3921427388 / Confirmed HTN (hypertension) / SNOMED CT 3697638584 / Confirmed Osteoporosis / SNOMED CT 256337745 / Confirmed Regurgitation of stomach contents / SNOMED CT 580648727 / Confirmed Screening for malignant neoplasm of colon / SNOMED CT 896850829 / Confirmed Sigmoid diverticulosis / SNOMED CT 7301501783 / Confirmed Tendonitis / SNOMED CT 92483811 / Confirmed Unilateral primary osteoarthritis, right knee / SNOMED CT 9683524135 / Confirmed Vertigo / SNOMED CT 5608343592 / Confirmed Objective Vital Signs 09/22/2023 11:23 [...] after she (more content not included)... Normal [facility] Comment on above: Result Comment: Elec tronically Signed By: Valeri CANTRELL, Demar Leal\.br\Date and Time Signed: 09/22/23 11:54 EST Office/Clinic Note-Physician on 09-22-2023 Office/Clinic Note-Physician [id number]#1.00TIFF Normal [facility] Patient Correspondenceon Patient Correspondence [id number]#1.00TIFF Normal [facility] Patient Correspondence [id number]#1.00TIFF Normal [facility] Patient History Officeon Patient History Office [id number]#1.00TIFF Normal [facility] Physician Orderon 07-28-2023 Physician Order [id number]#1.00TIFF Normal [facility] Consenton 07-24-2023 Consent [id number]#1.00TIFF Normal [facility] Patient Eval Forms Officeon 07-24-2023 Patient Eval Forms Office [id number]#1.00TIFF Normal [facility] Patient Eval Forms Office [id number]#1.00TIFF Normal [facility] Consent for Treatmenton Consent for Treatment [id number]#1.00TIFF Normal [facility] CHEMISTRYOrdered By: SYSTEM SYSTEM on 06-05-2023 Anion gap [Moles/Vol] 12 mmol/L Normal 6 - 16 mEq/L [facility] Remisol Calcium [Mass/Vol] 9.5 mg/dL Normal 8.9 - 11. 1 mg/dL FT Remisol Chloride [Moles/Vol] 107 mmol/L Normal 101 - 1 11 mmol/L FT Remisol CO2 [Moles/Vol] 26 mmol/L Normal 21 - 31 mmol/L [facility] Remisol Creatinine [Mass/Vol] 0.7 mg/dL Normal 0.5 - 1.3 mg/dL [facility] Remisol GFR/1.73 sq M.predicted among non-blacks MDRD (S/P/Bld) [Vol rate/Area] 96 mL/min/1.73 m2 Normal >=59mL/min /1.73 m2 [facility] Chem S Glucose [Mass/Vol] 100 mg/dL Normal 55 - 199 mg/dL [facility] Remisol Potassium [Moles/Vol] 3.6 mmol/L Normal 3.5 - 5.3 mmol/L [facility] Remisol Sodium [Moles/Vol] 141 mmol/L Normal 135 - 145 mmol/L [facility] Remisol Troponin I.cardiac [Mass/Vol] 8.30 pg/mL Low 10.10 - 27.10 pg/mL [facility] Remisol Urea nitrogen [Mass/Vol] 19 mg/dL Normal 5 - 21 mg/dL [facility] Remisol Urea nitrogen/Creatinine [Mass ratio] 27 mg/mg High 10 - 20 [facility] Remisol CHEMISTRYOrdered By: Lab ROP User on 06-05-2023 Glucose [Mass/Vol] 109 mg/dL High 55 - 99 mg/dL [facility] POC Subsection Comment on above: Result Comment: Kacey wiley Meter POC Device SN [id number] Invalid Interpretation Code [facility] POC Subsection POC User ID [id number] Invalid Interpretation Code [facility] POC Subsection POC Username SHARITA VARGAS Invalid Interpretation Code [facility] POC Subsection HEMATOLOGYOrdered By: SYSTEM SYSTEM on 06-05-2023 Basophils/100 WBC (Bld) 0.8 % Normal 0.0 - 2.0 % [facility] HemeAutoSS Basophils/Leukocytes Auto (Bld) [Pure # fraction] 0.1 E9/L Normal 0.0 - 0.2 E9/L [facility] HemeAutoSS Eosinophils/100 WBC (Bld) 3.4 % Normal 0.0 - 8.0 % [facility] HemeAutoSS Eosinophils/Leukocyte s Auto (Bld) [Pure # [...] 8.2 fL Normal 6.4 - 10.8 fL [facility] HemeAutoSS Platelets (Bld) [#/Vol] 239.0 E9/L Normal 150.0 - 500.0 E9/L [facility] HemeAutoSS RBC (Bld) [#/Vol] 4.5 E12/L Normal 4.3 - 5.9 E12/L [facility] HemeAutoSS WBC corrected for nucl RBC Auto (Bld) [#/Vol] 7.5 E9/L Normal 4.0 - 11.0 E9/L [facility] HemeAutoSS CREATININEon 03-03-2023 Creatinine [Mass/Vol] 0.89 mg/dL Normal 0.55-1.02 [facility] Comment on above: Performed By: #### C LING #### [facility] [address] [place] [address] Dr. Lorraine Scott EGFR-AF CYPRIOT >60 Normal >=60 [facility] Comment on above: Performed By: #### C LING #### [facility] [address] [place] [address] Dr. Lorraine Scott EGFR-NON AF CYPRIOT >60 Normal >=60 [facility] Comment on above: Performed By: #### C LING #### [facility] [address] [place] [address] ABD/PELV W CONon [...] RYAN VAZQUEZ Date: 2023-03-03 10:08 Normal [facility] US SINGLE QUAD RT UPPERon US [...] RYAN VAZQUEZ Date: 2023-02-09 11:57 Normal [facility] Covid-19 PCR (CVDTB)on 10-19 SARS-CoV-2 (COVID-19) RNA SHAHEEN+probe Ql (Unsp spec) Detected Abnormal NOT DETECTED [facility] Comment on above: Result Comment: This test is not yet approved or cleared by the [place] FDA. When there are no FDA-approved or cleared tests available, and other criteria are met, FDA can make tests available under an emergency access mechanism called an Emergency Use Authorization (EUA). The EUA for this test is supported by the [place] of Health and Human Service's declaration that [...] used). Performed By: #### C VDTB #### [facility] [address] [place] [address] Dr. Lorraine Scott INFLUENZA A AND B AGon 11-05 [facility] SEE BELOW Normal [facility] Comment on above: Result Comment: Nega tive for Flu A protein angiten. Infection due to Flu A cannot be ruled out. Flu A angiten in the sample may be below the detection limit of the test. Performed By: #### I NFLUAB #### [facility] [address] [place] [address] Dr. Lor[facility] Normal [facility] Comment on above: Result Comment: Nega tive for Flu B protein antigen. Infection due to Flu B cannot be ruled out. Flu B antigen in the sample may be below the detection limit of the test. Performed By: #### I NFLUAB #### [facility] [address] [place] [address] Dr. Lorraine Scott INFLUENZA A AG Negative Normal NEGATIVE SEE COMMENT [facility] Comment on above: Performed By: #### I NFLUAB #### [facility] [address] [place] [address] Dr. Lorraine Scott INFLUENZA B AG Negative Normal NEGATIVE SEE COMMENT [facility] Comment on above: Performed By: #### I NFLUAB #### [facility] [address] [place] [address] Dr. Lorraine Scott MG MAMM SCREEN 3D LAURA CADon 10-22-2022 MG MAMM SCREEN 3D LAURA CAD Patient: CHLOE AGARWAL Exam Date: 10/22/2022 : 1955 Gender:F Ordering : DR JUAN CARLOS NARVAEZ . Admission #: [id number] Family : Order #: [id number] CLICK HERE TO VIEW EXAM RADIOLOGY REPORT [...] Treatments None Family Cancers None LOCATION: [facility] BREAST COMPOSITION: Scattered areas fibroglandular density. [...] M.D. on 10/23/2022 at 08:41 Normal [facility] XR DEXA BONE DENSITYon 10-22 XR [...] by: RYAN VAZQUEZ Date: 2022-10-22 09:12 Normal [facility] PAP ACOG PANEL 2: 30 to 65on 10-03-2022 . . Normal [facility] Comment on above: Result Comment: Perf ormed at: WB Performed By: #### 4 [id number] #### [facility] [address] [address] [address] Lorraine Scott Age Gdln ACOG Testing 30-65 Normal [facility] Comment on above: Performed By: #### 4 [id number] #### [facility] [address] [address] [address] Lorraine Scott DIAGNOSIS: Comment Normal [facility] Comment on above: Result Comment: NEGA TIVE FOR INTRAEPITHELIAL LESION OR MALIGNANCY. CELLULAR CHANGES ASSOCIATED WITH ATROPHY ARE PRESENT. Performed at: WB Performed By: #### 4 [id number] #### [facility] [address] [place] [address] Dr. Lorraine Scott HPV Aptima Negative Normal Negative [facility] Comment on above: Result Comment: This nucleic acid amplification test detects fourteen high-risk HPV types (16,18,31,33,35,39,45,51,52,56,58,59,66,68) without differentiation. Performed at: =G Performed By: #### 4 [id number] #### [facility] [address] [place] [address] Dr. Lorraine Scott HPV Genotype Reflex Comment Normal [facility] Comment on above: Result Comment: Crit eria not met, HPV Genotype not performed. Performed at: WB Performed By: #### 4 [id number] #### [facility] [address] [place] [address] Dr. Lorraine Scott Methodology: Comment Normal [facility] Comment on above: Result Comment: This liquid based ThinPrep(R) pap test was screened with the use of an image guided system. Performed at: WB Performed By: #### 4 [id number] #### [facility] [address] [place] [address] Dr. Lorraine Scott Note: Comment Normal [facility] Comment on above: Result [...] Performed at: WB Performed By: #### 4 [id number] #### [facility] [address] [address] [address] Lorraine Scott Performed by: Comment Normal [facility] Comment on above: Result Comment: Kong Juarez, Feeder Catcher (ASCP) Performed at: WB Performed By: #### 4 [id number] #### [facility] [address] [address] [address] Lorraine Scott Specimen adequacy: Comment Normal [facility] Comment on above: Result Comment: Sati sfactory for evaluation. Endocervical component may not be distinguished in cases of atrophy. Performed at: WB Performed By: #### 4 [id number] #### [facility] [address] [address] [address] Lorraine Scott CHEMISTRYOrdered By: SYSTEM SYSTEM [...] 4.6 mmol/L Normal 3.5 - 5.3 mmol/L [facility] Remisol Sodium [Moles/Vol] 138 mmol/L Normal 135 - 145 mmol/L [facility] Remisol Urea nitrogen [Mass/Vol] 20 mg/dL Normal 5 - 21 mg/dL [facility] Remisol Urea nitrogen/Creatinine [Mass ratio] 20 mg/mg Normal 10 - 20 [facility] Remisol Intraoperative Noteon 2017 Intraoperative Note [id number]#1.00[facility] Coding Summaryon 12-14-2017 Coding Summary CODING DATE: 018 [facility] STATUS: Home PAYOR: Commercial Insurance APC DESCRIPTION 5361 Level 1 Laparoscopy and Related Services ADMIT DX: REASON FOR VISIT DX: K35.80 Unspecified acute appendicitis FINAL DX: PRINCIPAL: K35.80 Unspecified acute appendicitis SECONDARY: K21.9 Gastro-esophageal reflux disease without esophagitis PYMT PROC APC STAT DESCRIPTION DOCTOR NAME DATE 63941 5361 J1 Charlie, Car gale Richard MD appendectomy NOTE: The code number assigned matches the documented diagnosis and / or procedure in the patient's chart. However, the narrative phrase printed from the coding software may appear abbreviated, or result in slightly different terminology. Coded By: Tenisha Smith Date Saved: 12/14/2017 09:53 am [facility] Lab - Other Lab Resultson Lab - Other Lab Results [id number]#1.00[facility] Operative Report - Surgeon/P [...] appendix was inflamed.It was grasped with a Nicolaus clamp. A defect in the mesoappendix wascreated [...] theprocedure without any difficulties.Adryan Yoon M.D.JOB #: [id number]: 12/09/2017T: 12/09/2017[Electronically Signed on: 12/15/2017 10:32 EST] Adryan Yoon MD[Verified on: 12/15/2017 10:32 EST] Adryan Yoon MD[Transcribed on: 12/09/2017 09:14 EST]U [facility] Outside Recordson 12-09-2017 Outside Records [id number]#1.00OTGTIFF [facility] Outside Records [id number]#1.00[facility] MAGR Postoperative Recordon 12-08-2017 MAGR Postoperative Record MAGR Phase II Record Summary Primary Physician: Adryan Yoon MD Finalized Date/Time: 12/08/17 13:12:55 Pt. Name: CHLOE AGARWAL/Sex: 1955 FEMALE Med Rec #: [id number] Physician: Adryan Yoon MD Financial #: [id number] Pt. Type: D Room/Bed: [facility] Admit/Disch: 12/04/17 03:05:00 - 12/05/17 12:30:00 Institution: [...] discharge instructions. General Comments: care per 2 [facility] nursing personnel Finalized By: Chloe Turcios RN Document Signatures Signed By: Chloe Turcios RN 12/08/17 13:12 [facility] Operative Report - Surgeon/P avery 12-08-2017 Operative Report - Surgeon/Physician [id number]#1.00[facility] Pathology Sendout Teston Pathology Send Out. See Report [facility] Comment on above: Order Comment: JANET COWART Performed By: #### 2 [id number] ####[facility] (DEFAULT)[address] [place] [address] Provider Orderson 12-08-2017 Provider Orders [id number]#1.00[facility] Consent Formson 12-07-2017 Consent Forms [id number]#1.00[facility] Intraoperative Noteon 2017 Intraoperative Note [id number]#1.00[facility] Medication Managementon 11-19 Medication Management [id number]#1.00[facility] Telemetry Stripson 8 Telemetry Strips [id number]#1.00[facility] Discharge Summaryon 12-06-19 Discharge Summary DISCHARGE DIAGNOSIS: Acute appendicitis.DISCHARGE CONDITION: Good.HOSPITAL COURSE: The patient is a 62-year-old woman who presented [facility] emergency department. She was found to have a slightlyelevated white blood cell count. A CT scan was consistent with acuteappendicitis. The patient wanted to be transferred to [facility] andas a result, she underwent a laparoscopic appendectomy. Postoperatively sheis doing well. Her white blood cell count decreased to the normal range. Sheis tolerating a regular diet. Her pain is controlled and she is ambulatingwithout difficulty. As a result, she will be discharged home. She willfollow-up with me in two weeks.Adryan Yoon M.D.JOB #: [id number]: 12/05/2017T: 12/06/2017[Electronically Signed on: 12/09/2017 07:13 EST] Adryan Yoon MD[Verified on: 12/09/2017 07:13 EST] Adryan Yoon MD[Transcribed on: 12/06/2017 08:45 EST]GDU [facility] .Auto Diff 1on 12-05-2017 Auto Baso % 0.1 % Low 0.2-2.0 [facility] Comment on above: Performed By: #### 7 [id number], [id number] ####[facility] (DEFAULT)[address] [place] [address] Auto [place] % 8 % Normal 1-12 [facility] Comment on above: Performed By: #### 7 [id number], [id number] ####[facility] (DEFAULT)[address] [place] [address] Auto Neut % 86 % Normal 44-88 [facility] Comment on above: Performed By: #### 7 [id number], [id number] ####[facility] (DEFAULT)[address] [place] [address] Baso Abs# 0.0 x10 Normal 0.0-0.2 [facility] Comment on above: Performed By: #### 7 [id number] ####[facility] (DEFAULT)[address] [place] [address] Eos Abs# 0.0 x10 Normal 0.0-0.4 [facility] Comment on above: Performed By: #### 7 [id number], [id number] ####[facility] (DEFAULT)[address] [place] [address] Eosinophils/100 leukocytes 0.0 % Low 0.9-4.0 [facility] Comment on above: Performed By: #### 7 [id number], [id number] ####[facility] (DEFAULT)[address] [place] [address] Lymphocytes 0.6 x10 Low 1.3-2.9 [facility] Comment on above: Performed By: #### 7 [id number], [id number] ####[facility] (DEFAULT)[address] [place] [address] Lymphocytes/100 leukocytes 6 % Low 14-48 [facility] Comment on above: Performed By: #### 7 [id number], [id number] ####[facility] (DEFAULT)[address] [place] [address] [place] Abs# 0.9 x10 High 0.0-0.8 [facility] Comment on above: Performed By: #### 7 [id number], [id number] ####[facility] (DEFAULT)[address] [place] [address] Neut Abs# 9.9 x10 High 1.5-9.2 [facility] Comment on above: Performed By: #### 7 [id number], [id number] ####[facility] (DEFAULT)[address] [place] [address] CBC w/ Auto Diffon 8 Erythrocyte distribution width Auto Ratio (RBC) 13.6 % Normal 11.5-15.0 [facility] Comment on above: Performed By: #### 7 [id number], [id number] ####[facility] (DEFAULT)[address] [place] [address] Erythrocytes (RBC) 3.75 x10 Normal 3.70-5.30 [facility] Comment on above: Performed By: #### 7 [id number], [id number] ####[facility] (DEFAULT)[address] [place] [address] Hematocrit (HCT) 34.4 % Normal 33.7-40.4 [facility] Comment on above: Performed By: #### 7 [id number], [id number] ####[facility] (DEFAULT)[address] [place] [address] Hemoglobin mass conc (Bld) 11.0 g/dL Low 11.3-15.9 [facility] Comment on above: Performed By: #### 7 [id number], [id number] ####[facility] (DEFAULT)[address] [place] [address] Man Diff? Auto Normal [facility] Comment on above: Performed By: #### 7 [id number], [id number] ####[facility] (DEFAULT)[address] [place] [address] MCH 29 pg Normal 24-34 [facility] Comment on above: Performed By: #### 7 [id number], [id number] ####[facility] (DEFAULT)[address] [place] [address] MCHC mass conc (RBC) 32 g/dL Normal 26-37 [facility] Comment on above: Performed By: #### 7 [id number], [id number] ####[facility] (DEFAULT)[address] [place] [address] MCV 92 fL Normal 81-100 [facility] Comment on above: Performed By: #### 7 [id number], [id number] ####[facility] (DEFAULT)[address] [place] [address] Platelet mean volume (PMV) 11.7 fL High 6.3-10.2 [facility] Comment on above: Performed By: #### 7 [id number], [id number] ####[facility] (DEFAULT)[address] [place] [address] Platelets 204 x10 Normal 138-427 [facility] Comment on above: Performed By: #### 7 [id number], [id number] ####[facility] (DEFAULT)[address] [place] [address] WBC (Leukocytes) 11.4 x10 High 3.5-10.5 [facility] Comment on above: Performed By: #### 7 [id number], [id number] ####[facility] (DEFAULT)[address] [place] [address] Education Noteon 12-05-2017 Education Note Education MaterialsGastroenterologyApp [...] Reviewed: 02/20/2016[employer] Patient Education ? 2017 Interse. Normal [facility] Inpatient Clinical Summaryon 12-05-2017 Inpatient Clinical Summary [facility] 2SOUTHClinical Discharge SummaryPERSON INFORMATIONName CHLOE AGARWAL Age 62 Years 59Sex FEMALE Language Finnish PCP Agus MCGHEE Status [facility] [id number] Acct# Arrival 12/04/17 03:05:00Visit Reason APPENDICITIS Acuity LOS 000 34:38Address:[address] [facility] [address]Lebktul:PROVIDER INFORMATIONVITALS INFORMATIONVital Sign Triage LatestTemp Oral 36.8 DegC 36.4 DegCTemp TemporalTemp IntravascularTemp AxillaryTemp Scxika72 Sat 99 % 99 %Respiratory Rate 16 br/min 18 br/minPeripheral Pulse Rate 79 bpm 60 bpmApical Heart Rate 76 bpm 60 bpmBlood Pressure 138 mmHg / 86 mmHg 97 mmHg / 59 mmHgComment:MEDICAL INFORMATIONAllergy Info:Allergies sulfonamidePrescriptions Given:Home Meds Displayacetaminophen-hydroco done ([place] 7.5 mg-325 mg oral tablet) 1 tab(s), [...] hours as needed for for painacetaminophen-hydrocodon e ([place] 7.5 mg-325 mg oral tablet) 1 tab(s) [...] range between ( 1.3 and 2.9 ) [place] Abs#: 0.9 x103/mcL -- Normal range between ( 0.0 and 0.8 ) Auto Baso %: 0.1 % -- Normal range between ( 0.2 and 2.0 ) Auto [place] %: 8 % -- Normal range between [...] INFORMATIONInstructions:Appe ndicitisFollow up:With: Address: When:Adryan Yoon MD [address] [place] [address] Business (1)DIAGNOSIS1:Acute appendicitisPROBLEMSProblems Active Arthritis Heart murmur HeartburnComment:PHYS DOC NOTES Normal [facility] Inpatient Patient Summaryon 12-05-2017 [place]patient [place] [address] patient Discharge InstructionsName: CHLOE AGARWALDOB: [birth year] Address: [address] [place] [address] Care Provider:Name: CORINNEVICK EsparzaPhone: After you are discharged if you find you have any questions, please, call [phone] ext [phone] to speak to a nurse.Discharge Diagnosis: 1:Acute [...] or business decisions or sign any legal documentsBarn[facility]ville Hospital would like to thank you for allowing us to assist you with your healthcare needs. The following includes patient education materials and information regarding your injury/illness.CHLOE AGARWAL has been given the following list of follow-up instructions, prescriptions, and patient education materials:Follow-up InstructionsWith: Address: When:Adryan Yoon MD [address] [place] [address] Business (1)MedicationsDuring the course of your visit, your medication list was updated with the most current information. The details of those changes are reflected below:Medications to Continue That Have Not ChangedOther Medicationsacetaminophen-hyd rocodone ([place] 7.5 mg-325 mg oral tablet) 1 tab(s) [...] that you can keep with you.acetaminophen-hydrocodon e ([place] 7.5 mg-325 mg oral tablet) 1 tab(s) [...] Reviewed: 02/20/2016[employer] Patient Education ? 2017 Interse.Viruses or BacteriaWhat?s got you sick?Antibiotics only treat [...] for Disease Control and Prevention June 2014 [facility] Progress Note - Nurseon 11-19 Pulse [...] on: 12/05/2017 09:52 EST] Sim Chamorro RN [facility] Progress Note - Nurse Pt walking the sachin lway with RN, 200 ft, standby assist. Pt is steady. No c/o SOB or dizziness. Bilateral upper and lower abdominal pain 3/10, prn norco administered as ordered. Will continue to monitor, call light in reach.[Electronically Signed on: 12/05/2017 05:50 EST] Serina Cross[Verified on: 12/05/2017 05:50 EST] Serina Cross [facility] Progress Note - Nurse Pt is [...] Cross[Verified on: 12/04/2017 23:39 EST] Serina Cross [facility] Anesthesia Noteon 12-04-2017 Anesthesia Note Patient: CHLOE AGARWAL : 62 years Sex: FEMALE : 59Associated Diagnoses: NoneAuthor: Fernie Sandoval DOPostoperative InformationPost Operative Note: Post Anesthesia Care Unit.Review / ManagementCondition: Stable.AssessmentAnesthetic outcomeNo anesthetic complications noted.PlanTransfer/ Discharge: Patient can be discharged from PACU when criteria met.Condition good.[Electronically Signed on: 12/04/2017 15:01 EST] Fernie Sandoval DO[Verified on: 12/04/2017 15:01 EST] Fernie Sandoval DO [facility] Anesthesia Note Patient: CHLOE AGARWAL : [...] 400 mg = 2 cap(s), PRN, PO, [id number] 20 mg oral delayed release capsule 20 mg = 1 cap(s), PO, DailyProblem list (past medical history):All ProblemsAlteration in comfort: pain / SNOMED CT 05208031 / ConfirmedArthritis / SNOMED CT 0157622 / ConfirmedHeart murmur / SNOMED CT 992011631 / ConfirmedHeartburn / SNOMED CT 18400004 / ConfirmedResolved: Kidney stones / SNOMED CT 377859650Mcjfjpix: History of renal stent / SNOMED CT 0995731833Drsyzfha: Acute appendicitis / SNOMED CT 640509583PjrxgzhggVjifrh History:DementiaFatherLiver massSisterCHF (congestive heart failure)MotherFatherProcedur e history:History of right total knee replacement (607642072571468).History of left total knee replacement (155710945313956).Tonsillect kike (225240560).Removal of ureteral stent (122124118).History of ureteral stent placement (4249310669).Social History Alcohol Assessment Use: Never. Tobacco Assessment Never (less than 100 in lifetime) Tobacco Use:. Substance Abuse Assessment Substance use: Never. 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 Home/Environment Assessment Lives with Children, Spouse. Living situation: Home/Independent. Nutrition/Health Assessment Regular, Caffeine intake amount: Hot tea in the morning..Social & Psychosocial XqwdzpSgbrjzc94/ Alcohol Use: NeverEmployment/[id number] Status: Self employed Description: Office workHome/Acrbkednqtf85/16/20 18 Lives with: Children, Spouse Living situation: Home/IndependentNutrition/He alth12/04/2017 Type of diet: Regular Caffeine intake amount: Hot tea in the morningSubstance Abuse12/04/2017 Substance use: ErvwwEifodld56/16/2018 Smoking tobacco use: Never (less than 100 in l.Physical ExaminationVS/MeasurementsMe asurements from flowsheet : Mdjccnqyhcfp99/16/18 03:09 EST Height 152.400 cm Height/Length Dosing 152.400 cm Weight 71.200 kg Weight Dosing 71.200 kg Body Mass Index 30.660 kg/m2,Vital Signs (last 24 hrs) Last ChartedTemp Oral 36.7 DegC (DEC 04 07:00)Heart Rate Peripheral 76 bpm (DEC 04 07:00)Resp Rate 18 br/min (DEC 04:00)SBP 123 mmHg (DEC 04:00)DBP 77 mmHg (DEC 04 07:00)SpO2 99 % (DEC 04 07:00)Weight 71.200 kg (DEC 04 03:09)Height 152.40 cm (DEC 04 03:09)General: Alert and oriented, No acute distress.Airway: Mallampati classification: II (soft palate, fauces, uvula visible). Temporomandibular joint mobility: Good. Mouth: Teeth ( [place] ). Neck: Non-tender, Full range of motion.Respiratory: [...] on: 12/04/2017 08:38 EST] Fernie Sandoval DO Normal [facility] History and Physicalon 12-04 History and Physical DATE OF ADMISSION: 12/04/17 MEDICAL HISTORYCHIEF COMPLAINT: Right lower quadrant abdominal pain.HISTORY OF PRESENT ILLNESS: The patient is a 62-year-old woman withabdominal pain. She presented to the emergency department at [facility]. A CT scan of the abdomen and pelvis was obtained which wasconsistent with acute appendicitis. Due to personal reasons, she did notwant the surgery performed at [facility] and as a result, shewanted to be transferred [facility] [...] to undergo the procedure.Adryan Yoon M.D.JOB #: [id number]: 12/04/2017T: 12/04/2017[Electronically Signed on: 12/04/2017 07:16 EST] Adryan Yoon MD[Verified on: 12/04/2017 07:16 EST] Adryan Yoon MD[Transcribed on: 12/04/2017 06:52 EST][place] [facility] Intraoperative Recordon 12-04-2017 MAGR Intraoperative Record MAGR Intra-Op Record Summary Primary Physician: Adryan Yoon MD Finalized Date/Time: 12/04/17 15:26:26 Pt. Name: CHLOE AGARWAL/Sex: 1955 FEMALE Med Rec #: [id number] Physician: Adryan Yoon MD Financial #: [id number] Pt. Type: D Room/Bed: 229/1 Admit/Disch: 12/04/17 03:05:00 - Institution: Case Times [...] Role Performed Surgeon - Primary Anesthesiologist of Coke Loader Record Time In 12/04/17 09:44:00 12/04/17 09:44:00 12/04/17 09:44:00 Time Out 12/04/17 10:42:00 12/04/17 10:42:00 12/04/17 10:42:00 Procedure Appendectomy Appendectomy Appendectomy Laparoscopic Laparoscopic Laparoscopic Last Modified By: Olinda Mora Cynthia M Cartier, Cynthia M 12/04/17 10:56:16 12/04/17 10:56:16 12/04/17 10:56:16 Entry 4 Entry 5 Entry 6 Case Attendee Jennifer Li MANAGER FASHION BOARD CSFA/MANAGER FASHION, Antonia Bah RN Role Performed Pump Erector Scrub Personnel Coke Loader Time In 12/04/17 09:44:00 12/04/17 09:44:00 12/04/17 [...] UNIT FLOWTRON FOOT CUFF REG Serial ?# [id number] Equipment Setting FACTORY SETTINGS Last Modified By: [...] Signed By: Antonia Pérez RN 12/04/17 15:26 [facility] MAGR PACU Recordon 8 MAGR PACU Record MAGR PACU Record [facility] Physician: Adryan Yoon MD Finalized Date/Time: 12/04/17 11:35:32 Pt. Name: ANY CHLOEHO Powell/Sex: 1955 FEMALE Med Rec #: [id number] Physician: Adryan Yoon MD Financial #: [id number] Pt. Type: D Room/Bed: 229/1 Admit/Disch: 12/04/17 03:05:00 - Institution: PACU Case Times MAGR Entry 1 In PACU I 12/04/17 10:44:00 Discharge from PACU 12/04/17 11:25:00 I Last Modified By: Vernell Gunderson RN 12/04/17 11:35:30 Finalized By: Vernell Gunderson RN Document Signatures Signed By: Vernell Gunderson RN 12/04/17 11:35 [facility] Progress Note - Nurseon 11-19 Progress [...] on: 12/04/2017 04:41 EST] Liliane Rivero RN [facility] Vital Signs Date Time Vital Sign Value Performing Clinician Davian swan 05-02-2025 13:44-0400 Diastolic blood pressure 75 mm[Hg] Yodit Sal MD Work Phone: [facility] 05-02-2025 13:44-0400 Systolic blood pressure 130 mm[Hg] Yodit Sal MD Work Phone: [facility] 05-02-2025 13:13-0400 Body height 152.4 cm Yodit Leal Work Phone: [facility] 05-02-2025 13:13-0400 Body mass index (BMI) [Ratio] 27.34 kg/m2 Yodit Sal MD Work Phone: [facility] 05-02-2025 13:13-0400 Body weight 63.5 kg Yodit Leal Work Phone: [facility] 05-02-2025 13:13-0400 Heart rate 91 /min Yodit Leal Work Phone: [facility] 01-23-2025 14:25-0400 Blood Pressure Location Baldomero Bryant [facility] 01-23-2025 14:25-0400 Diastolic blood pressure 89 mm[Hg] Baldomero Bryant [facility] 01-23-2025 14:25-0400 Heart rate 70 /min Baldomero Bryant [facility] 01-23-2025 14:25-0400 Respiratory rate 16 /min Baldomero Bryant [facility] 01-23-2025 14:25-0400 SaO2% (BldA) [Mass fraction] 99 % Baldomero Bryant [facility] 01-23-2025 14:25-0400 Systolic blood pressure 149 mm[Hg] Baldomero Bryant [facility] 11-28-2024 08:59-0500 Body mass index (BMI) [Ratio] 31.64 kg/m2 Antionette Paterson PA Work Phone: [facility] 11-28-2024 08:59-0500 Body weight 73.48 kg Antionette Trey PA Work Phone: [facility] 11-28-2024 08:59-0500 Diastolic blood pressure 76 mm[Hg] Antionette Paterson PA Work Phone: [facility] 11-28-2024 08:59-0500 Systolic blood pressure 126 mm[Hg] Antionette Paterson PA Work Phone: [facility] 10-05-2024 11:45-0500 Diastolic blood pressure 76 mm[Hg] Lokesh Mcqueen [facility] 10-05-2024 11:45-0500 Mean blood pressure 102 mm[Hg] Lokesh Mcqueen [facility] 10-05-2024 11:45-0500 Systolic blood pressure 153 mm[Hg] Lokesh Mcqueen [facility] 10-05-2024 11:35-0500 Blood Pressure Location Lokesh Mcqueen [facility] 10-05-2024 11:35-0500 Diastolic blood pressure 84 mm[Hg] Lokesh Mcqueen [facility] 10-05-2024 11:35-0500 Heart rate 62 /min Lokesh Mcqueen [facility] 10-05-2024 11:35-0500 Respiratory rate 18 /min Lokesh Mcqueen [facility] 10-05-2024 11:35-0500 SaO2% (BldA) [Mass fraction] 98 % Lokesh Mcqueen [facility] 10-05-2024 11:35-0500 Systolic blood pressure 156 mm[Hg] Lokesh Mcqueen [facility] 08-19-2024 13:49-0400 Heart rate 68 /min SAM KAISER [facility] 08-19-2024 13:49-0400 SaO2% (BldA) [Mass fraction] 98 % SAM [facility] 08-19-2024 13:49-0400 Blood Pressure Location SAM [facility] 08-19-2024 13:49-0400 Diastolic blood pressure 77 mm[Hg] SAM [facility] 08-19-2024 13:49-0400 Mean blood pressure 97 mm[Hg] SAM [facility] 08-19-2024 13:49-0400 Systolic blood pressure 136 mm[Hg] SAM [facility] 08-19-2024 13:48-0400 Respiratory rate 18 /min SAM [facility] 08-19-2024 12:16-0400 Heart rate 52 /min SAM [facility] 08-19-2024 12:16-0400 SaO2% (BldA) [Mass fraction] 100 % SAM [facility] 08-19-2024 12:16-0400 Blood Pressure Location SAM [facility] 08-19-2024 12:16-0400 Diastolic blood pressure 63 mm[Hg] SAM [facility] 08-19-2024 12:16-0400 Mean blood pressure 81 mm[Hg] SAM [facility] 08-19-2024 12:16-0400 Systolic blood pressure 117 mm[Hg] SAM [facility] 08-19-2024 12:15-0400 Respiratory rate 18 /min SAM [facility] 08-19-2024 09:55-0400 Heart rate 50 /min SAM [facility] 08-19-2024 09:55-0400 SaO2% (BldA) [Mass fraction] 98 % SAM [facility] 08-19-2024 09:55-0400 Diastolic blood pressure 68 mm[Hg] SAM [facility] 08-19-2024 09:55-0400 Mean blood pressure 81 mm[Hg] SAM [facility] 08-19-2024 09:55-0400 Systolic blood pressure 106 mm[Hg] SAM [facility] 08-19-2024 09:54-0400 Respiratory rate 18 /min SAM [facility] 08-19-2024 08:04-0400 Body temperature 97.52 [degF] SAM [facility] 08-19-2024 08:03-0400 Blood Pressure Location SAM [facility] 08-11-2024 10:49-0400 Body height 152.4 cm Sydnie Villalobos DPM Work Phone: [facility] 08-11-2024 10:49-0400 Body mass index (BMI) [Ratio] 30.86 kg/m2 Sydnie Villalobos DPM Work Phone: [facility] 08-11-2024 10:49-0400 Body weight 71.67 kg Sydnie Villalobos DPM Work Phone: [facility] 07-13-2024 15:01-0400 Blood Pressure Location Willie Fajardofortunato [facility] 07-13-2024 15:01-0400 Diastolic blood pressure 82 mm[Hg] Willie Kaur [facility] 07-13-2024 15:01-0400 Heart rate 68 /min Willie Vincent [facility] 07-13-2024 15:01-0400 Respiratory rate 18 /min Willie Lozanomarcos [facility] 07-13-2024 15:01-0400 SaO2% (BldA) [Mass fraction] 98 % Willie Lozanomarcos [facility] 07-13-2024 15:01-0400 Systolic blood pressure 137 mm[Hg] Willie Lozanomarcos [facility] 07-06-2024 14:55-0400 Diastolic blood pressure 82 mm[Hg] Claudio Monroe [facility] 07-06-2024 14:55-0400 Heart rate 66 /min Claudio Monroe [facility] 07-06-2024 14:55-0400 Mean blood pressure 103 mm[Hg] Claudio Monroe [facility] 07-06-2024 14:55-0400 Respiratory rate 14 /min Claudio Monroe [facility] 07-06-2024 14:55-0400 Systolic blood pressure 144 mm[Hg] Claudio Monroe [facility] 05-08-2024 09:00-0400 Diastolic blood pressure 63 mm[Hg] Nelson Beck [facility] 05-08-2024 09:00-0400 Heart rate 55 /min Nelson Beck [facility] 05-08-2024 09:00-0400 Mean blood pressure 78 mm[Hg] Nelson Beck [facility] 05-08-2024 09:00-0400 SaO2% (BldA) [Mass fraction] 99 % Nelson Beck [facility] 05-08-2024 09:00-0400 Systolic blood pressure 108 mm[Hg] Nelson Beck [facility] 05-08-2024 08:26-0400 Diastolic blood pressure 77 mm[Hg] Nelson Beck [facility] 05-08-2024 08:26-0400 Heart rate 58 /min Nelson Beck [facility] 05-08-2024 08:26-0400 Mean blood pressure 105 mm[Hg] Nelson Beck [facility] 05-08-2024 08:26-0400 Respiratory rate 15 /min Nelson Beck [facility] 05-08-2024 08:26-0400 SaO2% (BldA) [Mass fraction] 98 % Nelson Beck [facility] 05-08-2024 08:26-0400 Systolic blood pressure 161 mm[Hg] Nelson Beck [facility] 05-08-2024 07:19-0400 Body temperature 98.42 [degF] Nelson Solares [facility] 05-08-2024 07:19-0400 Diastolic blood pressure 82 mm[Hg] Nelson Solares [facility] 05-08-2024 07:19-0400 Heart rate 64 /min Nelson Solares [facility] 05-08-2024 07:19-0400 Respiratory rate 16 /min Nelson Solares [facility] 05-08-2024 07:19-0400 SaO2% (BldA) [Mass fraction] 100 % Nelson Solares [facility] 05-08-2024 07:19-0400 Systolic blood pressure 163 mm[Hg] Nelson Solares [facility] 12-18-2023 13:32-0500 Blood Pressure Location Willie Kaur [facility] 12-18-2023 13:32-0500 Diastolic blood pressure 70 mm[Hg] Willie Kaur [facility] 12-18-2023 13:32-0500 Heart rate 60 /min Willie Kaur [facility] 12-18-2023 13:32-0500 SaO2% (BldA) [Mass fraction] 99 % Willie Kaur [facility] 12-18-2023 13:32-0500 Systolic blood pressure 110 mm[Hg] Willie Kaur [facility] 11-25-2023 09:00-0500 Body height 152.4 cm Antionette LOPEZ Work Phone: [facility] 11-25-2023 09:00-0500 Body mass index (BMI) [Ratio] 33.22 kg/m2 Antionette Yang JESSICA Work Phone: [facility] 11-25-2023 09:00-0500 Body weight 77.17 kg Antionette Yang PA Work Phone: [facility] 11-25-2023 09:00-0500 Diastolic blood pressure 84 mm[Hg] Antionette Ponceey PA Work Phone: [facility] 11-25-2023 09:00-0500 Systolic blood pressure 120 mm[Hg] Antionette Yang PA Work Phone: [facility] 11-20-2023 13:11-0500 Diastolic blood pressure 81 mm[Hg] Vicky Castillo [facility] 11-20-2023 13:11-0500 Heart rate 59 /min Vicky Castillo [facility] 11-20-2023 13:11-0500 Mean blood pressure 106 mm[Hg] Vicky Castillo [facility] 11-20-2023 13:11-0500 Respiratory rate 18 /min Vicky KokoChi [facility] 11-20-2023 13:11-0500 Systolic blood pressure 156 mm[Hg] Vicky Castillo [facility] 11-17-2023 11:36-0500 Diastolic blood pressure 118 mm[Hg] Landon DOUGLAS [facility] 11-17-2023 11:36-0500 Mean blood pressure 135 mm[Hg] Landon DOUGLAS [facility] 11-17-2023 11:36-0500 Systolic blood pressure 170 mm[Hg] Landon DOUGLAS [facility] 11-17-2023 11:27-0500 Blood Pressure Location Landon DOUGLAS [facility] 11-17-2023 11:27-0500 Diastolic blood pressure 107 mm[Hg] Landon MISAEL [facility] 11-17-2023 11:27-0500 Heart rate 68 /min Landon DOUGLAS [facility] 11-17-2023 11:27-0500 SaO2% (BldA) [Mass fraction] 98 % Landon DOUGLAS [facility] 11-17-2023 11:27-0500 Systolic blood pressure 171 mm[Hg] Landon DOUGLAS [facility] 10-26-2023 12:48-0500 Diastolic blood pressure 88 mm[Hg] Vicky Castillo [facility] 10-26-2023 12:48-0500 Heart rate 66 /min Vicky Castillo [facility] 10-26-2023 12:48-0500 Mean blood pressure 106 mm[Hg] Vicky Castillo [facility] 10-26-2023 12:48-0500 Respiratory rate 20 /min Vicky Castillo [facility] 10-26-2023 12:48-0500 Systolic blood pressure 143 mm[Hg] Vickyjayden Castillo [facility] 10-07-2023 09:52-0500 Heart rate 68 /min Claudio Monroe [facility] 10-07-2023 09:52-0500 SaO2% (BldA) [Mass fraction] 100 % Claudio Monroe [facility] 10-07-2023 09:52-0500 Diastolic blood pressure 95 mm[Hg] Claudio Monroe [facility] 10-07-2023 09:52-0500 Mean blood pressure 113 mm[Hg] Claudio Monroe [facility] 10-07-2023 09:52-0500 Systolic blood pressure 148 mm[Hg] Claudio Monroe [facility] [facility] 10-07-2023 09:52-0500 Respiratory rate 16 /min Claudio Monroe [facility] 10-07-2023 09:45-0500 Diastolic blood pressure 94 mm[Hg] Claudio Monroe [facility] 10-07-2023 09:45-0500 Heart rate 88 /min Claudio Monroe [facility] 10-07-2023 09:45-0500 SaO2% (BldA) [Mass fraction] 100 % Claudio Monroe [facility] 10-07-2023 09:45-0500 Systolic blood pressure 178 mm[Hg] Claudio Monroe [facility] 10-07-2023 09:03-0500 Heart rate 65 /min Claudio Monroe [facility] 10-07-2023 09:03-0500 SaO2% (BldA) [Mass fraction] 98 % Claudio Monroe [facility] 10-07-2023 09:03-0500 Body temperature 97.52 [degF] Claudio Monroe [facility] 10-07-2023 09:03-0500 Diastolic blood pressure 83 mm[Hg] Snyder Fer [facility] 10-07-2023 09:03-0500 Mean blood pressure 103 mm[Hg] Snyder Fer [facility] 10-07-2023 09:03-0500 Systolic blood pressure 143 mm[Hg] Claudio Fer [facility] 10-07-2023 09:03-0500 Respiratory rate 14 /min Claudio Fer [facility] 09-22-2023 11:23-0500 Diastolic blood pressure 88 mm[Hg] Demar Trammell [facility] 09-22-2023 11:23-0500 Heart rate 60 /min Demar Trammell [facility] 09-22-2023 11:23-0500 Mean blood pressure 105 mm[Hg] Demar Trammell [facility] 09-22-2023 11:23-0500 Respiratory rate 14 /min Demar Trammell [facility] 09-22-2023 11:23-0500 Systolic blood pressure 138 mm[Hg] Demar Trammell [facility] 07-14-2023 09:26-0400 Diastolic blood pressure 78 mm[Hg] Vickyjayden MCDOWELLG [facility] 07-14-2023 09:26-0400 Mean blood pressure 101 mm[Hg] Vickyjayden MCDOWELLG [facility] 07-14-2023 09:26-0400 Systolic blood pressure 146 mm[Hg] Vicky STANG [facility] 07-14-2023 09:15-0400 Blood Pressure Location Vicky STANG [facility] 07-14-2023 09:15-0400 Diastolic blood pressure 82 mm[Hg] Vicky STANG [facility] 07-14-2023 09:15-0400 Heart rate 67 /min Vicky STANG [facility] 07-14-2023 09:15-0400 SaO2% (BldA) [Mass fraction] 98 % Vicky STANG [facility] 07-14-2023 09:15-0400 Systolic blood pressure 148 mm[Hg] Vicky STANG [facility] 06-30-2023 15:15-0400 Diastolic blood pressure 97 mm[Hg] Landon MISAEL [facility] 06-30-2023 15:15-0400 Mean blood pressure 123 mm[Hg] Landon MISAEL [facility] 06-30-2023 15:15-0400 Systolic blood pressure 174 mm[Hg] Landon DOUGLAS [facility] 06-30-2023 15:05-0400 Blood Pressure Location Landon DOUGLAS [facility] 06-30-2023 15:05-0400 Diastolic blood pressure 98 mm[Hg] Landon DOUGLAS [facility] 06-30-2023 15:05-0400 Heart rate 80 /min Landon DOUGLAS [facility] 06-30-2023 15:05-0400 SaO2% (BldA) [Mass fraction] 99 % Landon MISAEL [facility] 06-30-2023 15:05-0400 Systolic blood pressure 166 mm[Hg] Landon MISAEL [facility] 06-08-2023 08:21-0400 Diastolic blood pressure 94 mm[Hg] Vicky Castillo [facility] 06-08-2023 08:21-0400 Heart rate 62 /min Vicky Castillo [facility] 06-08-2023 08:21-0400 Respiratory rate 16 /min Vicky Castillo [facility] 06-08-2023 08:21-0400 Systolic blood pressure 156 mm[Hg] Vicky Castillo [facility] 06-05-2023 10:45-0400 Diastolic blood pressure 70 mm[Hg] Prasad Avalos [facility] 06-05-2023 10:45-0400 Heart rate 70 /min Prasad Infantee [facility] 06-05-2023 10:45-0400 Mean blood pressure 97 mm[Hg] Prasad Robbie [facility] 06-05-2023 10:45-0400 Respiratory rate 20 /min Prasad Robbie [facility] 06-05-2023 10:45-0400 SaO2% (BldA) [Mass fraction] 96 % Prasad Robbie [facility] 06-05-2023 10:45-0400 Systolic blood pressure 152 mm[Hg] Prasad Robbie [facility] 06-05-2023 09:25-0400 Diastolic blood pressure 70 mm[Hg] Prasad Robbie [facility] 06-05-2023 09:25-0400 Heart rate 71 /min Prasad Robbie [facility] 06-05-2023 09:25-0400 Mean blood pressure 96 mm[Hg] Prasad Robbie [facility] 06-05-2023 09:25-0400 Respiratory rate 17 /min Prasad Robbie [facility] 06-05-2023 09:25-0400 SaO2% (BldA) [Mass fraction] 99 % Prasad Robbie [facility] 06-05-2023 09:25-0400 Systolic blood pressure 147 mm[Hg] Prasad Robbie [facility] 06-05-2023 08:54-0400 gluc 109 mg/dL Prasad Robbie [facility] 06-05-2023 08:54-0400 gluc Prasad Infantee [facility] 06-05-2023 08:47-0400 Body temperature 98.06 [degF] Prasad Avalos [facility] 06-05-2023 08:47-0400 Diastolic blood pressure 106 mm[Hg] Prasad Avalos [facility] 06-05-2023 08:47-0400 Heart rate 81 /min Prasad Avalos [facility] 06-05-2023 08:47-0400 Respiratory rate 20 /min Prasad Avalos [facility] 06-05-2023 08:47-0400 SaO2% (BldA) [Mass fraction] 97 % Prasad Avalos [facility] 06-05-2023 08:47-0400 Systolic blood pressure 173 mm[Hg] Prasad Avalos [facility] 04-28-2023 09:05-0400 Diastolic blood pressure 87 mm[Hg] Vicky STANG [facility] 04-28-2023 09:05-0400 Mean blood pressure 111 mm[Hg] Vicky STANG [facility] 04-28-2023 09:05-0400 Systolic blood pressure 160 mm[Hg] Vicky STANG [facility] 04-28-2023 08:55-0400 Blood Pressure Location Vicky STANG [facility] 04-28-2023 08:55-0400 Diastolic blood pressure 88 mm[Hg] Vicky STANG [facility] 04-28-2023 08:55-0400 Heart rate 66 /min Vicky STANG [facility] 04-28-2023 08:55-0400 SaO2% (BldA) [Mass fraction] 97 % Vicky STANG [facility] 04-28-2023 08:55-0400 Systolic blood pressure 153 mm[Hg] Vicky LAST [facility] 04-20-2023 13:54-0400 Diastolic blood pressure 89 mm[Hg] Demar Valeri [facility] 04-20-2023 13:54-0400 Diastolic blood pressure 84 mm[Hg] Demar Valeri [facility] 04-20-2023 13:54-0400 Heart rate 72 /min Demar Valeri [facility] 04-20-2023 13:54-0400 Heart rate 62 /min Demar Valeri [facility] 04-20-2023 13:54-0400 Mean blood pressure 112 mm[Hg] Demar Valeri [facility] 04-20-2023 13:54-0400 Respiratory rate 14 /min Demar Valeri [facility] 04-20-2023 13:54-0400 Systolic blood pressure 159 mm[Hg] Demar Valeri [facility] 04-20-2023 13:54-0400 Systolic blood pressure 147 mm[Hg] Demar Valeri [facility] 04-03-2023 10:40-0400 Diastolic blood pressure 62 mm[Hg] NILL [facility] 04-03-2023 10:40-0400 Heart rate 69 /min NILL [facility] 04-03-2023 10:40-0400 Respiratory rate 32 /min NILL [facility] 04-03-2023 10:40-0400 SaO2% (BldA) [Mass fraction] 96 % NILL [facility] 04-03-2023 10:40-0400 Systolic blood pressure 100 mm[Hg] NILL [facility] 04-03-2023 10:30-0400 Diastolic blood pressure 56 mm[Hg] NILL [facility] 04-03-2023 10:30-0400 Heart rate 65 /min NILL [facility] 04-03-2023 10:30-0400 Respiratory rate 20 /min NILL [facility] 04-03-2023 10:30-0400 SaO2% (BldA) [Mass fraction] 95 % NILL [facility] 04-03-2023 10:30-0400 Systolic blood pressure 93 mm[Hg] NILL [facility] 04-03-2023 10:25-0400 Diastolic blood pressure 59 mm[Hg] NILL [facility] 04-03-2023 10:25-0400 Heart rate 69 /min NILL [facility] 04-03-2023 10:25-0400 Respiratory rate 17 /min NILL [facility] 04-03-2023 10:25-0400 SaO2% (BldA) [Mass fraction] 94 % NILL [facility] 04-03-2023 10:25-0400 Systolic blood pressure 102 mm[Hg] NILL [facility] 04-03-2023 10:20-0400 Blood Pressure Location NILL [facility] 04-03-2023 10:15-0400 Blood Pressure Location NILL [facility] 04-03-2023 10:15-0400 Body temperature 96.8 [degF] NILL [facility] 04-03-2023 09:47-0400 Respiratory rate 18 /min NILL [facility] 04-03-2023 09:24-0400 Blood Pressure Location NILL [facility] 04-03-2023 09:24-0400 Body temperature 96.8 [degF] NILL [facility] 03-17-2023 11:37-0400 Heart rate 78 /min Demar Valeri [facility] 03-17-2023 11:37-0400 SaO2% (BldA) [Mass fraction] 98 % Demar Valeri [facility] 03-17-2023 11:37-0400 Diastolic blood pressure 63 mm[Hg] Demar Valeri [facility] 03-17-2023 11:37-0400 Mean blood pressure 87 mm[Hg] Demar Valeri [facility] 03-17-2023 11:37-0400 Systolic blood pressure 136 mm[Hg] Demar Valeri [facility] 03-17-2023 11:33-0400 Diastolic blood pressure 114 mm[Hg] Demar Valeri [facility] 03-17-2023 11:33-0400 Heart rate 91 /min Demar Valeri [facility] 03-17-2023 11:33-0400 Respiratory rate 14 /min Demar Valeri [facility] 03-17-2023 11:33-0400 SaO2% (BldA) [Mass fraction] 99 % Demar Valeri [facility] 03-17-2023 11:33-0400 Systolic blood pressure 156 mm[Hg] Demar Valeri [facility] 03-17-2023 10:56-0400 Heart rate 89 /min Demar Valeri [facility] 03-17-2023 10:56-0400 SaO2% (BldA) [Mass fraction] 100 % Demar Valeri [facility] 03-17-2023 10:56-0400 Diastolic blood pressure 87 mm[Hg] Demar Valeri [facility] 03-17-2023 10:56-0400 Mean blood pressure 104 mm[Hg] Demar Valeri [facility] 03-17-2023 10:56-0400 Systolic blood pressure 138 mm[Hg] Demar Valeri [facility] 03-17-2023 10:56-0400 Body temperature 98.06 [degF] Demar Valeri [facility] 03-17-2023 10:56-0400 Respiratory rate 12 /min Demar Valeri [facility] 02-23-2023 12:32-0400 Diastolic blood pressure 97 mm[Hg] Demar Valeri [facility] 02-23-2023 12:32-0400 Heart rate 62 /min Demar Valeri [facility] 02-23-2023 12:32-0400 Mean blood pressure 115 mm[Hg] Demar Valeri [facility] 02-23-2023 12:32-0400 Respiratory rate 12 /min Demar Trammell [facility] 02-23-2023 12:32-0400 Systolic blood pressure 150 mm[Hg] Demar Trammell [facility] 02-20-2023 13:22-0400 Blood Pressure Location Michael ROLANDL [facility] [place] 02-20-2023 13:22-0400 Diastolic blood pressure 84 mm[Hg] NILL [facility] 02-20-2023 13:22-0400 Heart rate 72 /min NILL [facility] 02-20-2023 13:22-0400 Respiratory rate 16 /min NILL [facility] 02-20-2023 13:22-0400 Systolic blood pressure 122 mm[Hg] NILL [facility] 04-29-2022 09:28-0400 Blood Pressure Location Vicky LAST [facility] 04-29-2022 09:28-0400 Diastolic blood pressure 71 mm[Hg] Vickyjayden MCDOWELLG [facility] 04-29-2022 09:28-0400 Heart rate 73 /min Vicky STANG [facility] 04-29-2022 09:28-0400 Respiratory rate 18 /min Vicky STANG [facility] 04-29-2022 09:28-0400 SaO2% (BldA) [Mass fraction] 99 % Vicky STANG [facility] 04-29-2022 09:28-0400 Systolic blood pressure 106 mm[Hg] Vicky STANG [facility] Encounters Encounter Date Encounter Type Care Provider Facility Start: 05-02-2025 End: 05-02-2025 Office outpatient new 45 minutes Yodit Sal MD Work Phone: [facility] Comment on above: White coat syndrome with diagnosis of hypertension (Primary Dx); Chest pain, unspecified type; Gastroesophageal reflux disease, unspecified whether esophagitis present; Ventricular ectopic beats; BMI 27.0-27.9,adult; Never smoked tobacco; Hyperthyroidism Start: 05-02-2025 End: 05-02-2025 ambulatory [facility] Start: 04-24-2025 End: 05-11-2025 Telephone encounter Kenny Bangura [employer] [facility] Comment on above: PT CX 04/26/25; PT on- hold Start: 04-18-2025 End: 04-18-2025 Bamboo flowsheet Kenny Bangura [employer] [facility] Start: 04-18-2025 End: 04-18-2025 Bamboo flowsheet Kenny Bangura [employer] [facility] Start: 04-18-2025 End: 04-18-2025 ambulatory Kenny Bangura [employer] [facility] Comment on above: Other spondylosis wi th myelopathy, lumbar region (Primary Dx) Start: 04-14-2025 End: 04-14-2025 Bamboo flowsterry Bangura [employer] [facility] Start: 04-14-2025 End: 04-14-2025 Bamboo flowsheet Kenny Bangura [employer] [facility] Start: 04-14-2025 End: 04-14-2025 ambulatory Kenny Bangura [employer] [facility] Comment on above: Other spondylosis wi th myelopathy, lumbar region (Primary Dx) Start: 04-12-2025 End: 04-12-2025 ambulatory Kenny Bangura [employer] [facility] Comment on above: Other spondylosis wi th myelopathy, lumbar region (Primary Dx) Start: 04-10-2025 End: 04-10-2025 Bamboo flowsheet Kenny Bangura [employer] [facility] Start: 04-10-2025 End: 04-10-2025 Bamboo flowsheet Kenny Bangura [employer] [facility] Start: 04-10-2025 End: 04-10-2025 ambulatory Kenny Bangura [employer] [facility] Comment on above: Other spondylosis wi th myelopathy, lumbar region (Primary Dx) Start: 04-07-2025 End: 04-07-2025 Bamboo flowsheet Yarelis Brink [employer] [facility] Start: 04-07-2025 End: 04-07-2025 Bamboo flowsheet Yarelis Brink [employer] [employer] [facility] Start: 04-07-2025 End: 04-07-2025 ambulatory Yarelis Brink [employer] [employer] [facility] Comment on above: Other [...] 03-31-2025 End: 03-31-2025 Bamboo flowsheet Yarelis Brink [employer] [employer] [facility] Start: 03-31-2025 End: 03-31-2025 Bamboo flowsheet Yarelis Brink [employer] [employer] [facility] Start: 03-31-2025 End: 03-31-2025 ambulatory Yarelis Brink [employer] [facility] Comment on above: Other [...] 03-24-2025 End: 03-24-2025 Bamboo flowsheet Kenny Bangura [employer] [employer] [facility] Start: 03-24-2025 End: 03-24-2025 Bamboo flowsheet Kenny Bangura [employer] [facility] Start: 03-24-2025 End: 03-24-2025 ambulatory Kenny Bangura [employer] [facility] Comment on above: Other spondylosis wi th myelopathy, lumbar region (Primary Dx) Start: 03-22-2025 End: 03-22-2025 Bamboo flowsheet Kennytangela Bangura DIRECTOR [employer] [facility] Start: 03-22-2025 End: 03-22-2025 Bamboo flowsheet Kennytangela Bangura [employer] [facility] Start: 03-22-2025 End: 03-22-2025 ambulatory Kenny Bangura [employer] [employer] [facility] Comment on above: Other spondylosis wi th myelopathy, lumbar region (Primary Dx) Start: 03-20-2025 End: 03-20-2025 Bamboo flowsheet Kennytangela Bangura DIRECTOR [employer] [facility] Start: 03-20-2025 End: 03-20-2025 Bamboo flowsheet Kenny Bangura [employer] [employer] [employer] [facility] Start: 03-20-2025 End: 03-20-2025 ambulatory Kenny Bangura [employer] [employer] [facility] Comment on above: Other spondylosis wi th myelopathy, lumbar region (Primary Dx) Start: 03-17-2025 End: 03-17-2025 Bamboo flowsheet Kenny Bangura [employer] [employer] [facility] Start: 03-17-2025 End: 03-17-2025 Bamboo flowsheet Kenny Bangura [employer] [facility] Start: 03-17-2025 End: 03-17-2025 ambulatory Kenny Bangura [employer] [facility] Comment on above: Other spondylosis wi th myelopathy, lumbar region (Primary Dx) Start: 03-14-2025 End: 03-14-2025 ambulatory Kenny Bangura [employer] [facility] Comment on above: Other spondylosis wi th myelopathy, lumbar region (Primary Dx) Start: 03-14-2025 End: 03-14-2025 Bamboo flowsheet Kenny Bangura [employer] [facility] Start: 03-14-2025 End: 03-14-2025 Bamboo flowsheet Kenny Bangura [employer] [facility] Start: 03-10-2025 End: 03-10-2025 ambulatory SOFI PYLE Not Available Start: 01-23-2025 End: 01-23-2025 ambulatory MD Radu Kurtz Facility:[facility] Start: 01-23-2025 End: 01-23-2025 Patient encounter procedure Baldomero Hurtado [facility] Start: 01-17-2025 End: 01-17-2025 Patient encounter procedure Vick Mcghee MD Work Phone: [facility] [address] Work Phone: Start: 01-17-2025 End: 01-17-2025 ambulatory Vick Mcghee MD Work Phone: [facility] Work Phone: Start: 01-12-2025 End: 01-14-2025 Pre-admission assessment Lokesh Mcqueen [facility] Start: 12-21-2024 End: 12-21-2024 ambulatory ANTIONETTE YANG Not Available Start: 12-19-2024 End: 12-19-2024 ambulatory Lokesh Mcqueen Facility:[facility] Start: 12-19-2024 End: 12-19-2024 Patient encounter procedure Lokesh Mcqueen [facility] Start: 12-14-2024 End: 12-14-2024 Clinisync Result Encounter [...] Available Start: 11-15-2024 End: 11-16-2024 ambulatory Aileen BAKERU Facility:[facility] Start: 11-15-2024 Emergency department patient visit Darshan Patrice Qian Facility:[facility] Start: 10-05-2024 End: 10-05-2024 ambulatory XXXX NONE Facility:[facility] Start: 10-05-2024 End: 10-05-2024 Patient encounter procedure Lokesh Mcqueen [facility] Start: 09-02-2024 End: 09-02-2024 ambulatory Vick Mcghee MD Work Phone: [facility] Work Phone: Start: 09-02-2024 End: 09-02-2024 Departed Referred Vick Mcghee MD Work Phone: [facility] Start: 08-19-2024 End: 08-19-2024 ambulatory SAM KAISER Facility:[facility] Start: 08-19-2024 End: 08-19-2024 Patient encounter procedure SAM KAISER [facility] Start: 08-11-2024 End: 08-11-2024 Bamboo flowsheet Sydnie Villalobos DPM Work Phone: [facility] Start: 08-11-2024 End: 08-11-2024 Bamboo flowsheet Sydnie Villalobos DPM Work Phone: [facility] Start: 08-11-2024 End: 08-11-2024 Office outpatient visit 15 minutes Sydnie Villalobos DPM Work Phone: 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 Start: 08-11-2024 End: 08-11-2024 ambulatory SYDNIE VILLALOBOS Not Available Start: 08-11-2024 ambulatory [facility] Start: 07-13-2024 End: 07-13-2024 ambulatory Willie Kaur Facility:[facility] Start: 07-13-2024 End: 07-13-2024 Patient encounter procedure Willie Kaur [facility] Start: 07-06-2024 End: 07-06-2024 ambulatory Claudio Monroe Facility:[facility] Start: 07-06-2024 End: 07-06-2024 Patient encounter procedure Claudio Monroe [facility] Start: 07-06-2024 End: 07-06-2024 ambulatory Vick Mcghee Facility:[facility] Start: 07-06-2024 End: 07-06-2024 Patient encounter procedure Claudio Monroe [facility] Start: 05-08-2024 End: 05-08-2024 Emergency department patient visit Nelson Solares [facility] Start: 12-18-2023 End: 12-18-2023 ambulatory Willie Kaur Facility:[facility] Start: 12-18-2023 End: 12-18-2023 Patient encounter procedure Willie Kaur [facility] Start: 12-02-2023 Clinisync Result Encounter Antionette [...] Unsolicited Start: 11-25-2023 Clinisync Result Encounter Antionette Ponceabdoul LOPEZ Work Phone: [facility] Unsolicited [...] Start: 11-20-2023 End: 11-20-2023 ambulatory FRANCO Castillo Facility:[facility] Start: 11-20-2023 End: 11-20-2023 Pain Management Vicky Castillo [facility] Start: 11-17-2023 End: 11-17-2023 ambulatory Landon DOUGLAS Facility:[facility] Start: 11-17-2023 End: 11-17-2023 Patient encounter procedure Landon DOUGLAS [facility] Start: 10-26-2023 End: 10-26-2023 Patient encounter procedure Vicky Castillo [facility] Start: 10-26-2023 End: 10-26-2023 ambulatory Vicky Castillo Facility:[facility] Start: 10-26-2023 End: 10-26-2023 Pain Management Vicky Castillo [facility] Start: 10-07-2023 End: 10-07-2023 ambulatory Claudio Monroe Facility:[facility] Start: 10-07-2023 End: 10-07-2023 Pain Management Claudio Monroe [facility] Start: 09-22-2023 End: 09-22-2023 ambulatory Demar Trammell Facility:[facility] Start: 09-22-2023 End: 09-22-2023 Pain Management Demar Pradoner [facility] Start: 08-06-2023 End: 08-06-2023 ambulatory Barry Husain Facility:[facility] Start: 08-06-2023 End: 08-06-2023 Patient encounter procedure Barry Husain [facility] Start: 07-23-2023 End: 07-23-2023 ambulatory Barry Husain Facility:[facility] Start: 07-14-2023 End: 07-14-2023 Hypertension screening status Vicky LAST [facility] Start: 07-14-2023 End: 07-14-2023 Patient encounter procedure Vicky LAST [facility] Start: 06-30-2023 End: 06-30-2023 Patient encounter procedure Landon DOUGLAS [facility] Start: 06-08-2023 End: 06-08-2023 Pain Management Vicky Castillo [facility] Start: 06-05-2023 End: 06-05-2023 Emergency department patient visit Prasad Avalos [facility] Start: 05-04-2023 End: 05-04-2023 Pain Management Vicky Castillo [facility] Start: 04-28-2023 End: 04-28-2023 Patient encounter procedure Vicky LAST [facility] Start: 04-20-2023 End: 04-20-2023 Pain Management Demar Trammell [facility] Start: 04-15-2023 End: 04-15-2023 Patient encounter procedure R NILL General Surgery Nill/Said Keesha Start: 04-03-2023 End: 04-03-2023 Patient encounter procedure R NILL [facility] Start: 03-17-2023 End: 03-17-2023 Pain Management Demar Trammell [facility] Start: 03-03-2023 End: 03-04-[address] VICK MCGHEE . Facility:[facility] Start: 02-23-2023 End: 02-23-2023 Pain Management Demar Trammell [facility] Start: 02-20-2023 End: 02-20-2023 Patient encounter procedure R NILL General Surgery Nill/Said Keesha Start: 02-09-2023 End: 02-10-[address] VICK MCGHEE . Facility:[facility] Start: 11-05-2022 End: 11-05-[address] VICK MCGHEE . Facility:[facility] Start: 10-27-2022 End: 10-27-2022 Patient encounter procedure Vicky LAST [facility] Start: 10-22-2022 End: 10-23-[address] JUAN CARLOS NARVAEZ . Facility:[facility] Start: 09-24-2022 End: 09-24-[address] JUAN CARLOS NARVAEZ . Facility:[facility] Start: 04-29-2022 End: 04-29-2022 Patient encounter procedure Vicky LAST [facility] Start: 12-05-2017 End: 04-15-2018 Ambulatory Adryan Wildaguero Facility:[facility] Procedures Date Procedure Procedure Detail Performing Clinician Start: 05-02-2025 Ecg routine ecg w/least 12 lds w/i&r Yodit Sal MD Work Phone: Start: 12-14-2024 MM TOMOSYNTHESIS SCREENING BI Antionette [...] Start: 11-30-2023 [facility] CMP (CMP) (FOR REMOTE [facility] USE) Antionette LOPEZ Work Phone: Start: 11-30-2023 Mammography Antionette LOPEZ Work Phone: Start: 11-25-2023 IGP,APTIMA HPV,AGE GDLN Antionette LOPEZ Work Phone: Start: 10-07-2023 Injection of nerve root of lumbar spine using fluoroscopic guidance Vicky Castillo Comment on above: right L5/S1 TFESI- 50% relief x 3 days t hen no relief Start: 04-20-2023 Injection of steroid into hip joint Vicky Anna Comment on above: Right Hip Bursa Injection-50% relief Start: 04-03-2023 Colonoscopy Antionette LOPEZ Work Phone: Start: 04-03-2023 Colonoscopy Michael ROLANDPriyank Start: 04-03-2023 Esophagogastroduodenoscopy Michael ROLANDPriyank Start: 03-17-2023 Injection of nerve root of lumbar spine using fluoroscopic guidance Michael ROLANDPriyank Comment on above: 75% relief Start: 10-22-2022 Mammography Antionette LOPEZ Work Phone: Start: 09-17-2021 Cardiac catheterization Vicky SHALA Start: 04-01-2021 Esophagogastroduodenoscopy Vickyjayden MCDOWELLVika Start: 10-19-2017 Appendectomy Vicky MCDOWELLVika Start: 10-19-1961 Tonsillar structure (palatine) (body structure) Vicky MCDOWELLVika Comment on above: Tonsilectomy Arthroplasty of knee Michael ROLANDPriyank Esophagogastroduodenoscopy A maicol SHALA Comment on above: during early 40s Knee region structur e (body structure) Vicky MCDOWELLVika Comment on above: Knee replacement x 2 Tonsillectomy and adenoidectomy Michael ROLANDPriyank Ureterorenoscopy wit h fragmentation and removal of calculus of kidney Vicky MCDOWELLVika Plan of Treatment Date Care Activity Detail Author Start: 04-03-2033 Screening for malign ant neoplasm of colon [facility] Start: 2032 RSV High Risk: (Elde rly (60+) or Population) (1 - 1-dose 75+ series) RSV High Risk: (Elderly (60+) or Population) (1 - 1-dose 75+ series) [facility] Start: 12-14-2025 Screening for malign ant neoplasm of breast Mammogram [facility] Start: 12-07-2025 End: 12-07-2025 Patient encounter procedure 12/07/2025 3:00 PM EST Office Visit [facility] [address] [place] [id number] Yodit Sal MD [address] [place] [address] [facility] Start: 12-04-2025 End: 12-04-2025 Patient encounter procedure 12/04/2025 10:00 AM EST Office Visit [facility] [address] [place] [id number] Antionette Yang PA [address] [place] [address] [facility] Start: 06-19-2025 Influenza vaccination [facility] Start: 05-02-2025 End: 05-02-2025 ambulatory 05/02/2025 9:30 AM EDT Treatment [facility] [address] [place] [address] Kenny Bangura, DIRECTOR CALL [employer] SAL[employer] [facility] Start: 04-26-2025 End: 04-26-2025 ambulatory 04/26/2025 9:00 AM EDT Treatment [facility] [address] [place] [address] Kenny Bangura, DIRECTOR [employer] [facility] Start: 04-25-2025 End: 04-25-2025 ambulatory 04/25/2025 9:30 AM EDT Treatment [facility] [address] [place] [address] Sofi Pyle, PT [facility] Start: 04-18-2025 End: 04-18-2025 ambulatory [facility] Start: 04-14-2025 End: 04-14-2025 ambulatory [facility] Start: 04-12-2025 End: 04-12-2025 ambulatory [facility] Start: 04-10-2025 End: 04-10-2025 ambulatory 04/10/2025 8:30 AM EDT Treatment [facility] [address] [place] [address] Kenny Bangura, DIRECTOR [employer] [facility] Start: 04-07-2025 End: 04-07-2025 ambulatory [facility] Start: 04-05-2025 End: 04-05-2025 ambulatory 04/05/2025 11:00 AM EDT Treatment [facility] [address] [place] [address] Sofi Pyle, PT [facility] Start: 04-03-2025 End: 04-03-2025 ambulatory 04/03/2025 2:00 PM EDT Treatment [facility] [address] [place] [address] Sofi Pyle, PT [facility] Start: 03-31-2025 End: 03-31-2025 ambulatory [facility] Start: 03-29-2025 End: 03-29-2025 ambulatory 03/29/2025 11:00 AM EDT Treatment [facility] [address] [place] [address] Sofi Pyle, PT [facility] Start: 03-27-2025 End: 03-27-2025 ambulatory 03/27/2025 12:00 PM EDT Treatment [facility] [address] [place] [address] Sofi Pyle, PT [facility] Start: 03-24-2025 End: 03-24-2025 ambulatory 03/24/2025 12:00 PM EDT Treatment [facility] [address] [place] [address] Kenny Bangura, DIRECTOR [employer] [facility] Start: 03-22-2025 End: 03-22-2025 ambulatory 03/22/2025 12:00 PM EDT Treatment [facility] [address] [facility] [address] [place] [address] Kenny Bangura PTA [facility] Start: 03-20-2025 End: 03-20-2025 ambulatory [facility] Comment on above: Arrived Start: 03-17-2025 End: 03-17-2025 ambulatory [facility] Comment on above: Arrived Start: 03-14-2025 End: 03-14-2025 ambulatory 03/14/2025 3:00 PM EDT Treatment [facility] [address] [facility] [address] [place] [address] Kenny Bangura PTA Arrived [facility] Comment on above: Arrived Start: 01-17-2025 Aldolase measurement [facility] Start: 01-17-2025 Antibody to Scl-70 measurement [facility] Start: 01-17-2025 Hemolytic complement CH50 level [facility] Start: 01-17-2025 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 [facility] Start: 01-17-2025 [facility] Start: 12-21-2024 End: 12-21-2024 Professional / ancillary services management 12/21/2024 9:30 AM EST Ancillary Procedure [facility] [address] [place] [phone] [facility] Start: 11-30-2024 Screening for malign ant neoplasm of breast Mammogram [facility] Start: 11-28-2024 End: 11-28-2025 DXA Skeletal system Views for bone density DEXA bone density Imaging Routine Osteoporosis, post-menopausal ([facility]/H[facility]) Expected: 11/28/2024 (Approximate), Expires: 11/28/2025 [facility] Comment on above: Expected: 11/28/2024 (Approximate), Expires: 11/28/2025 Start: 11-28-2024 End: 01-26-2026 MG Breast - bilateral Screening Bilateral screening mammogram Imaging Routine Breast cancer screening by mammogram Expected: 11/28/2024 (Approximate), Expires: 01/26/2026 [facility] Work Phone: Comment on above: Expected: 11/28/2024 (Approximate), Expires: 01/26/2026 Start: 11-28-2024 End: 11-28-2025 US Pelvis US pelvis Imaging Routine Pelvic pain in female Expected: 11/28/2024 (Approximate), Expires: 11/28/2025 [facility] Comment on above: Expected: 11/28/2024 (Approximate), Expires: 11/28/2025 Start: 11-28-2024 End: 11-28-[address] [facility] Comment on above: Arrived Start: 08-11-2024 End: 08-11-2024 Patient encounter procedure 08/11/2024 11:00 AM EDT Office Visit [facility] [address] [place] [address] Sydnie Villalobos, DPM [address] [place] [address] [facility] Comment on above: Arrived Start: 06-19-2024 COVID-19 Vaccine ( season) COVID-19 Vaccine ( season) [facility] Start: 06-19-2024 Influenza vaccination Influenza Vacc ine (#1) [facility] Start: 11-25-2023 End: 11-25-2024 Lipid 1996 panel - Serum or Plasma Lipid panel Lab Routine Well woman exam with routine gynecological exam Well woman exam Expected: 11/25/2023 (Approximate), Expires: 11/25/2024 [facility] Comment on above: Expected: 11/25/2023 (Approximate), Expires: 11/25/2024 Start: 11-25-2023 End: 01-23-2025 MG Breast - bilateral Screening Bilateral screening mammogram Imaging Routine Breast cancer screening by mammogram Expected: 11/25/2023, Expires: 01/23/2025 [facility] Work Phone: Comment on above: Expected: 11/25/2023 , Expires: 01/23/2025 Start: 10-22-2023 Screening for malign ant neoplasm of breast Mammogram [facility] Start: 06-19-2023 Influenza vaccination Influenza Vacc ine (#1) [facility] Start: 2022 Pneumococcal Vaccine : 65+ Years (1 - PCV) Pneumococcal Vaccine: 65+ Years (1 - PCV) [facility] Start: 2022 Pneumococcal Vaccine : 65+ Years (1 of 1 - PCV) Pneumococcal Vaccine: 65+ Years (1 of 1 - PCV) [facility] Start: 2007 Pneumococcal vaccination Pneum ococcal Vaccine (1 of 1 - PCV) [facility] Start: 2007 Pneumococcal Vaccine : 65+ Years (1 of 1 - PCV) Pneumococcal Vaccine: 65+ Years (1 of 1 - PCV) [facility] Start: 1979 DTaP/Tdap/Td Vaccine s (1 - Tdap) DTaP/Tdap/Td Vaccines (1 - Tdap) [facility] Start: 1975 [facility] Start: [facility] Lipid panel Lipid Panel [facility] Start: 1957 Medicare Annual Well ness Visit Medicare Annual Wellness Visit (AWV) [facility] Start: 1957 Screening for malign ant neoplasm of colon [facility] Adenosine monophosphate.cyclic [Moles/volume] in Serum or Plasma [facility] Beta 2 glycoprotein 1 IgG Ab [Units/volume] in Serum [facility] Beta 2 glycoprotein 1 IgM Ab [Units/volume] in Serum [facility] Cardiolipin IgA Ab [Units/volume] in Serum by Immunoassay [facility] Cardiolipin IgG Ab [Units/volume] in Serum by Immunoassay [facility] Cardiolipin IgM Ab [Units/volume] in Serum by Immunoassay [facility] CBC W Auto Different ial panel - Blood CBC and differential Lab Routine Well woman exam with routine gynecological exam Well woman exam Ordered: 11/25/2023 [facility] Comment on above: Ordered: 11/25/2023 Centromere protein B Ab [Units/volume] in Serum [facility] Chromatin Ab [Units/volume] in Serum or Plasma [facility] Complement C3 [Mass/volume] in Serum or Plasma [facility] Complement C4 [Mass/volume] in Serum or Plasma [facility] Comprehensive metabo lic 2000 panel - Serum or Plasma Comprehensive metabolic panel Lab Routine Well woman exam with routine gynecological exam Well woman exam Ordered: 11/25/2023 [facility] Comment on above: Ordered: 11/25/2023 Hemoglobin A1c measurement Hemoglobin A1c Lab Routine Well woman exam with routine gynecological exam Well woman exam Ordered: 11/25/2023 [facility] Comment on above: Ordered: 11/25/2023 Histone IgG Ab [Units/volume] in Serum by Immunoassay [facility] Homogenous nuclear A b pattern [Titer] in Serum [facility] Chio-1 extractable nuc lear Ab [Units/volume] in Serum [facility] Lupus anticoagulant [Interpretation] in Platelet poor plasma [facility] Nuclear Ab [Titer] i n Serum [facility] Reagin Ab [Presence] in Serum by RPR [facility] Rheumatoid factor [Units/volume] in Serum or Plasma [facility] Sjogrens syndrome-A extractable nuclear Ab [Units/volume] in Serum [facility] Sjogrens syndrome-B extractable nuclear Ab [Units/volume] in Serum [facility] Anders extractable nu clear Ab [Units/volume] in Serum [facility] THIN PREP TIS PAP AN D HR HPV DNA THIN PREP TIS PAP AND HR HPV DNA Pathology and Cytology Routine Well woman exam with routine gynecological exam Ordered: 11/25/2023 [facility] Comment on above: Ordered: 11/25/2023 THIN PREP TIS PAP AN D HR HPV DNA THIN PREP TIS PAP AND HR HPV DNA Pathology and Cytology Routine Well woman exam with routine gynecological exam Ordered: 11/28/2024 [facility] Comment on above: Ordered: 11/28/2024 Thrombin time [facility] Thyroglobulin Ab [Units/volume] in Serum or Plasma [facility] Thyroperoxidase Ab [Units/volume] in Serum or Plasma [facility] Thyrotropin [Units/volume] in Serum or Plasma TSH Lab Routine Well woman exam with routine gynecological exam Well woman exam Ordered: 11/25/2023 [facility] Comment on above: Ordered: 11/25/2023 Immunizations Immunization Date Immunization Notes Care Provider Fa ros 07-23-2021 SARS-CoV-2 (COVID-19 ) mRNA BNT-162b2 vax [facility] 07-02-2021 SARS-CoV-2 (COVID-19 ) mRNA BNT-162b2 vax [facility] 02-22-2021 zoster vaccine recombinant Antionette Trey PA Work Phone: [facility] 11-12-2020 zoster vaccine recombinant Antionette Paterson PA Work Phone: [facility] NEGATED: Highlighted row has not occurred!12-25-2021 influenza virus vaccine, unspecified formulation [place] SHALA [facility] NEGATED: Highlighted row has not occurred!10-16-2021 influenza virus vaccine, unspecified formulation Vicky LAST [facility] Payers Date Payer Category Payer Medicare supplementa l policy (as second payer) [employer] [id number] 2024 Self-pay 2022 Private Health Insurance [employer] [id number] 2022 Unknown [id number]. 1.13.693.2 .[id number] 2022 Medicare [id number]. 1.13.693.2 .[id number] 2017 Unknown [id number] 1959 Medicare [id number] 1959 Unknown [id number] 1957 Unknown [id number] 2.16.840.1.486284.3.579.2 .593 1957 Unknown [id number] 2.16.840.1.258122.3.579.2 .593 1957 Unknown [id number] 2.16.840.1.183878.3.579.2 .593 1957 Unknown [id number] 2.16.840.1.878066.3.579.2 .593 1957 Unknown [id number] 2.16.840.1.259012.3.579.2 .593 1957 Unknown [id number] 2.16.840.1.033781.3.579.2 .727 1957 Unknown [id number] 2.16.840.1.573988.3.579.2 .727 1957 Unknown [id number] 2.16.840.1.582769.3.579.2 .727 1957 Unknown [id number] 2.16.840.1.065956.3.579.2 .727 1957 Unknown [id number] 2.16.840.1.277878.3.579.2 .727 1957 Unknown [id number] 2.16.840.1.136840.3.579.2 .727 1957 Unknown [id number] 2.16.840.1.175573.3.579.2 .727 1957 Unknown [id number] 2.16.840.1.089861.3.579.2 1957 Unknown [id number] 2.16.840.1.054507.3.579.2 1957 Unknown [id number] 2.16.840.1.426865.3.579.2 1957 Unknown [id number] 2.16.840.1.084197.3.579.2 1957 Unknown [id number] 2.16.840.1.187560.3.579.2 1957 Unknown [id number] 2.16.840.1.314700.3.579.2 .1286 1957 Unknown [id number] 2.16.840.1.069446.3.579.2 1957 Unknown [id number] 2.16.840.1.977176.3.579.2 1957 Unknown [id number] 2.16.840.1.959629.3.579.2 1957 Unknown [id number] 2.16.840.1.525912.3.579.2 1957 Unknown [id number] 2.16.840.1.803924.3.579.2 1957 Unknown [id number] 2.16.840.1.901528.3.579.2 1957 Unknown [id number] 2.16.840.1.618099.3.579.2 1957 Unknown [id number] 2.16.840.1.037303.3.579.2 1957 Unknown [id number] 2.16.840.1.745135.3.579.2 .727 1957 Unknown [id number] 2.16.840.1.880303.3.579.2 .727 1957 Unknown [id number] 2.16.840.1.653874.3.579.2 .727 1957 Unknown [id number] 2.16.840.1.806042.3.579.2 .1259 1957 Unknown [id number] 2.16.840.1.796127.3.579.2 .125 1957 Unknown [id number] 2.16.840.1.813644.3.579.2 .125 1957 Unknown [id number] 2.16.840.1.920060.3.579.2 .125 1957 Unknown [id number] 2.840.1.140454.3.579.2 .125 1957 Unknown [id number] 2.840.1.260572.3.579.2 .1259 1957 Unknown [id number] 2.16.840.1.409334.3.579.2 .125 1957 Unknown [id number] 2..840.1.577565.3.579.2 .1259 1957 Unknown [id number] 2.840.1.529281.3.579.2 .125 1957 Unknown [id number] 2.16.840.1.178607.3.579.2 .1259 1957 Unknown [id number] 2.16.840.1.992599.3.579.2 .125 1957 Unknown [id number] 2.16.840.1.534973.3.579.2 .125 1957 Unknown [id number] 2.16840.1.184732.3.579.2 .125 1957 Unknown [id number] 2.16.840.1.801380.3.579.2 .1259 1957 Unknown [id number] 2.16.840.1.867735.3.579.2 .1259 1957 Unknown [id number] 2.16.840.1.375596.3.579.2 .9 1957 Unknown [id number] 2.16.840.1.692049.3.579.2 .1258 1957 Unknown [id number] 2.16.840.1.280408.3.579.2 .125 1957 Unknown [id number] 2.16.840.1.628419.3.579.2 .1258 1957 Unknown [id number] 2.16.840.1.331024.3.579.2 .1244 Medicaid [id number] Unknown MMO [id number] Unknown Mcgregor ALFREDO [id number] Unknown [id number] 2.16840.1.523564.3.579.2 .531 Unknown [id number] 2.840.1.410816.3.579.2 .531 Social History Date Type Detail Facility Start: 12-25-2021 End: 05-20-2023 Tobacco smoking status Never smoked tobacco (finding) [facility] Comment on above: Denies. Start: 11-24-2023 End: 08-11-2024 Sex Assigned At Female [facility] Tobacco smoking status Never [facility] Comment on above: Denies. Tobacco [facility] Comment on above: denies Tobacco smoking status [facility] Start: 05-20-2023 End: 05-02-2025 Tobacco use and exposure Smokeless tobacco non-user [...] file [facility] Tobacco smoking stat [facility] Unknown if ever smoked [facility] Work Phone: Start: 09-18-2019 End: 09-03-2024 Sex Female (finding) [facility] Start: 1955 Sex Assigned At Female F [facility] Start: 05-02-2025 Alcohol Comment wine rarely [facility] Work Phone: Functional Status Date Assessment Result Facility 01-23-2025 Functional Status N/A [facility] 10-05-2024 Functional Status N/A [facility] 08-19-2024 Functional Status N/A [facility] 07-13-2024 Functional Status N/A [facility] 07-06-2024 Functional Status N/A [facility] 05-08-2024 Functional Status N/A [facility] 12-18-2023 Functional Status No [facility] 11-20-2023 Functional Status N/A [facility] 11-17-2023 Functional Status No [facility] 10-26-2023 Functional Status N/A [facility] 10-07-2023 Functional Status N/A [facility] 09-22-2023 Functional Status N/A [facility] 07-14-2023 Functional Status No [facility] 06-30-2023 Functional Status No [facility] 06-08-2023 Functional Status N/A [facility] 06-05-2023 Functional Status N/A [facility] 05-04-2023 Functional Status N/A [facility] 04-28-2023 Functional Status No [facility] 04-20-2023 Functional Status N/A [facility] 04-03-2023 Functional Status N/A [facility] 03-17-2023 Functional Status N/A [facility] 02-23-2023 Functional Status N/A [facility] 02-20-2023 Functional Status N/A [facility] 04-29-2022 Functional Status N/A [facility] Clinical Notes 10-08-2021 to 05-02-2025 Yodit Sal MD - 05/02/2025 1:10 PM EDTPatient InstructionsTelephone Encounter - [facility] - 04/27/2025 11:36 AM EDTTelephone Encounter - [facility] - 04/27/2025 11:36 AM EDT Note Date & Type Note Facility 05-02-2025 History of Present illness Narrative Cardiology Consultation- New Consult Reason for referral: Previous complaint of chest pain and PVCs Chief Complaint Patient presents with New Patient Visit Self referral. Discharge [facility] 04/25/25 HPI: Chloe Agarwal is a 69 y.o. female who was recently at [facility] for a brief episode of vertigo. This was treated symptomatically and improved. According to her her neurologic evaluation was negative. While she was in the hospital she was noted to have some PVCs. She does have a history of hypertension with component of whitecoat hypertension. She reports she was evaluated in the past for symptoms of chest pain which led to a cardiac catheterization 2 years ago at [facility] by Dr. Douglas and this was negative. She was noted to have history of PVCs with previous Holter monitor according to her dose felt to be benign. Her recent echocardiogram showed normal LV systolic function. Since her discharge from the hospital patient reports she is feeling well. She denies complaint of chest pain, palpitation, lightheadedness, dizziness or syncope. Assessment 1. Previous evaluation for chest pain which led to a negative cardiac catheterization 2 years ago. She does have history of gastroesophageal reflux disease 2. PVCs appears to be benign based on lack of symptoms, lack of syncope, normal baseline QRS and QTc interval and normal echocardiogram with no evidence of coronary artery disease based on previous heart cath 3. Essential hypertension with component of whitecoat hypertension 4. Hyperthyroidism on suppressive therapy with methimazole 5. Mildly overweight with BMI of 27 6. Recent hospitalization for vertigo resolved dated with meclizine Plan 1. I advised the patient to continue current management with low-dose metoprolol ER 50 mg once daily and low-dose aspirin 2. Will try to retrieve her previous cardiac catheterization and Holter monitor 3. Will try to retrieve her recent hospitalization record 4. I reviewed her recent echocardiogram 5. I will see her back in the office in 6-month and follow-up Past Medical History: Hypertension, hyperthyroidism and PVCs Surgical History: She has a past surgical history that includes Back surgery; Appendectomy; Total knee arthroplasty (Bilateral); Tonsillectomy; Colonoscopy (2022); and Cardiac catheterization. Family History: Family History[1] Social History: Social History Tobacco Use Smoking status: Never Smokeless tobacco: Never Substance Use Topics Alcohol use: Yes Comment: wine rarely Allergies: Duloxetine, Baclofen, Gabapentin, Lisinopril, and Sulfa (sulfonamide antibiotics) Current Medications: Current Outpatient Medications Medication Instructions aspirin 81 mg, oral, Daily methIMAzole (Tapazole) 5 mg tablet 1 tablet, Every 12 hours scheduled (0630,1830) metoprolol succinate XL (TOPROL-XL) 50 mg, oral, Daily pantoprazole (PROTONIX) 40 mg, 2 times daily Vitals: Vitals: 05/02/25 1313 05/02/25 1316 05/02/25 1344 BP: 144/84 144/84 130/75 BP Location: Left arm Left arm Patient Position: Sitting Sitting Pulse: 91 Weight: 63.5 kg (140 lb) Height: (!) 1.524 m (5') EKG done in office today Review of Systems Constitutional: Positive for malaise/fatigue. Cardiovascular: Positive for irregular heartbeat. All other systems reviewed and are negative. Objective Physical Exam Constitutional: Appearance: Normal appearance. HENT: Nose: Nose normal. Neck: Vascular: No carotid bruit. Cardiovascular: Rate and Rhythm: Normal rate. Pulses: Normal pulses. Heart sounds: Normal heart sounds. Pulmonary: Effort: Pulmonary effort is normal. Abdominal: General: Bowel sounds are normal. Palpations: Abdomen is soft. Musculoskeletal: General: Normal range of motion. Cervical back: Normal range of motion. Right lower leg: No edema. Left lower leg: No edema. Skin: General: Skin is warm and dry. Neurological: General: No focal deficit present. Mental Status: She is alert. Psychiatric: Mood and Affect: Mood normal. Behavior: Behavior normal. Thought Content: Thought content normal. Judgment: Judgment normal. Assessment and Plan: 1. White coat syndrome with diagnosis of hypertension 2. Chest pain, unspecified type ECG 12 Lead Follow Up In Cardiology aspirin 81 mg EC tablet 3. Gastroesophageal reflux disease, unspecified whether esophagitis present 4. Ventricular ectopic beats 5. BMI 27.0-27.9,adult 6. Never smoked tobacco 7. Hyperthyroidism Scribe Attestation By signing my name below, Nelly Kessler LPN, Scribe attest that this documentation has been prepared under the direction and in the presence of Yodit Sal MD. Provider Attestation - Scribe documentation All medical record entries made by the Scribe were at my direction and personally dictated by me. I have reviewed the chart and agree that the record accurately reflects my personal performance of the history, physical exam, discussion and plan. [1] Family History Problem Relation Name Age of Onset Heart failure Mother Heart failure Father Hypertension Sister Hypertension Brother documented in this encounter [facility] Work Phone: 05-02-2025 Instructions Nelly Sargent LPN - 05/02/2025 1:10 PM EDT Please bring all medicines, vitamins, and herbal supplements with you when you come to the office. Prescriptions will not be filled unless you are compliant with your follow up appointments or have a follow up appointment scheduled as per instruction of your physician. Refills should be requested at the time of your visit. Retrieve heart cath and monitor from [facility] BMI was above normal measurement. Current weight: 63.5 kg (140 lb) Weight change since last visit (-) denotes wt loss 140 lbs Weight loss needed to achieve BMI 25: 12.3 Lbs Weight loss needed to achieve BMI 30: -13.3 Lbs Provided instructions on dietary changes Provided instructions on exercise. documented in this encounter [facility] Work Phone: 04-27-2025 Telephone encounter Note He contacted noting 05/02 is needed to be CX as well. Next week she has a full week of appts due to severe vertigo episode she had sudden. I noted that was her last PT scheduled, he said he'd feel safer to put on-hold till recovery is met. [facility] 04-27-2025 Miscellaneous Notes He contacted noting 05/02 is needed to be CX as well. Next week she has a full week of appts due to severe vertigo episode she had sudden. I noted that was her last PT scheduled, he said he'd feel safer to put on-hold till recovery is met. He called to cx her PT that was scheduled 04/26. When I asked to rs, he noted she is in the hospital right now and unable to be seen this week. He said there will be testing done to result on outcome; will fu pending PT next week. documented in this encounter [facility] 04-24-2025 Telephone encounter Note He called to cx her PT that was scheduled 04/26. When I asked to rs, he noted she is in the hospital right now and unable to be seen this week. He said there will be testing done to result on outcome; will fu pending PT next week. [facility] 04-05-2025 History of Present illness Narrative Images [...] to wear if walking long distances. Precautions: [place] Subjective: Pt states her back is feeling [...] instructed in home exercise program. - met Assisted Goals: To be met in 10 weeks [...] sign below. Date: documented in this encounter [facility] 04-03-2025 History of Present illness Narrative Images [...] to wear if walking long distances. Precautions: [place] Subjective: Pt states her left low back [...] instructed in home exercise program. - met Assisted Goals: To be met in 10 weeks [...] sign below. Date: documented in this encounter [facility] 03-29-2025 History of Present illness Narrative Images [...] to wear if walking long distances. Precautions: [place] Subjective: Pt states her left low back [...] bilateral LE strength. Including Nustep x10 minutes [place] Level 3.5 with HP to low back. [...] to be instructed in home exercise program. Assisted Goals: To be met in 10 weeks [...] sign below. Date: documented in this encounter [facility] 03-27-2025 History of Present illness Narrative Images [...] to wear if walking long distances. Precautions: [place] Subjective: Pt states low back is a little sore today. Was in the car a lot over the weekend and also sitting for [employer]'s recital yesterday and graduation on Thursday. Will be 8 weeks post op tomorrow. Pain: 5/10 Objective: PT Evaluation (03/10/2025) LUMBAR [...] bilateral LE strength. Including Nustep x8 minutes [place] Level 3.5. Therapeutic Activity: Exercises to improve [...] to be instructed in home exercise program. Assisted Goals: To be met in 10 weeks [...] sign below. Date: documented in this encounter [facility] 11-28-2024 History of Present illness Narrative Reason [...] KNEE SURGERY Bilateral Left: 2005; Right: 2015 MS LAPAROSCOPIC APPENDECTOMY 12/04/2017 MS REMOVAL OF KIDNEY STONE 2007 REVIEW OF [...] nursing note reviewed. Exam conducted with a tone artist apprentice present. Vitals: Estimated body mass index is [...] of: JESSICA Hunt documented in this encounter [facility] 11-23-2024 Note Discharge Summary Admission and Discharge Information Admitting Physician - Jayden Santos DO Consulting Physician - [facility] Cardio, XXXX Bryant CANTRELL, Baldomero Admitting Diagnoses: [...] followup appointment Patient Education Chest Wall Pain, Qpxk-pt-Xocf [facility] Comment on above: Result Comment: Elec tronically Signed By: Jayden Santos DO\.br\Date and Time Signed: 11/23/24 08:55 EST 11-16-2024 Note Echocardiology Procedure Exam Date/Time Accession # Ordering Echo Transthoracic 11/16/2024 10:20 EST [id number] Jayden Santos DO Complete CPT code 28637 [id number] Reason for Exam (Echo Transthoracic Complete) Chest pain Report [address] [address] Adult Echocardiogram Report Name: CHLOE AGARWAL Study Date: 11/16/2024 09:40 AM BP: 124/67 mmHg Patient Location: [address] [place] [address] Bed(s) [facility] : 1955 Gender: Female Height: 60 in Age: 69 yrs Ethnicity: [facility] Weight: 165 lb Reason For Study: [...] 703.0 msec AV VR: 0.66 WILLIAM(VTI)/BSA_phl: 1.0 __ FINAL REPORT Dictated: 11/16/2024 9:40 am Baldomero Hurtado MD Signed (Electronic Signature): 11/16/2024 5:52 pm Signed by: Baldomero Hurtado MD Transcribed by: FABIOLA Technologist: GELY [facility] 11-16-2024 Note Consultation Note Chief Complaint chest [...] bilateral lower e (more content not included)... [facility] Comment on above: Result Comment: Elec tronically Signed By: Baldomero Hurtado MD\.br\Date and Time Signed: 11/16/24 14:02 EST 11-15-2024 [...] 13:41:00) Lymph Auto: 14.1 % (11/15/24 13:41:00) [place] Auto: 8 % (11/15/24 13:41:00) Eos Auto: 1.2 % (11/15/24 13:41:00) Basophil Auto: 0.9 % (11/15/24 13:41:00) Neutro Absolute: 6.8 E9/L (11/15/24 13:41:00) Lymph Absolute: 1.3 E9/L (11/15/24 13:41:00) [place] Absolute: 0.7 E9/L (11/15/24 13:41:00) Eos Absolute: [...] 105 mmol/L (11/15/24 13:41:00) CO2: 26 mmol/L (11/15/24:41:00) AGAP: 12 mEq/L (11/15/24 13:41:00) Calcium Lvl: 9.4 mg/dL (11/15/24 13:41:00) Lipase Lvl: 43 unit/L (11/15/24:41:00) Magnesium: 2 mg/dL (11/15/24 13:41:00) Troponin HS: [...] List/Past Medical History (more content not included)... [facility] Comment on above: Result Comment: Elec tronically Signed By: Jayden Santos DO.elmo\Date and Time Signed: 11/15/24 16:53 EST 08-11-2024 [...] bothersome. She has seen her PCP and stock and station agent. She understands her water pill may be causing some of the cramping, but she was told she has to stay on it. She is trying to lose weight to improve her BP/HTN and her foot pain. She has tried gabapentin and Requip without improvement. She wears [employer] tennis shoes. She does not currently wear [...] KNEE SURGERY Bilateral Left: 2005; Right: 2015 MS LAPAROSCOPIC APPENDECTOMY 12/04/2017 MS REMOVAL OF KIDNEY STONE 2007 Family History [...] Sydnie Villalobos DPM documented in this encounter [facility] 07-06-2024 Note Consultation Note Patient is [...] with any questions or concerns that arise. [facility] Comment on above: Result Comment: [...] Future Appointments Appointment Date:07/13/2024 03:00:00 PM Scheduled Provider:Vincent CANTRELL, Willie Tovar Location:[facility]Cardiology Clinic Appointment Type:Cardiology Follow Up (FT) Appointment Date:08/08/2024 08:15:00 AM Scheduled Provider:Claudio Monroe DO Location[facility] Appointment Type:Pain Management - Follow Up (FT) [facility] 07-21-2024 Evaluation + Plan noteExtracted from: [...] Diagnostic Tests Pending * Urine Culture 05/08/24 [facility]07-21-2024 Hospital Discharge instructions Patient Education 05/08/2024 [...] if you feel dizzy. General instructions Take xzzt-ooq-mcpmlzf and prescription medicines only as told by [...] provider. Document Revised: 09/04/2021 Document Reviewed: 09/04/2021 Digital H2O Patient Education 2022 Interse. 05/08/2024 09:33:58 Urinary Tract Infection, Adult Urinary [...] Treatment for this condition includes: Antibiotic medicine. Dubk-zup-nxpflhs medicines to treat discomfort. Drinking enough water [...] Follow these instructions at home: Medicines Take htti-dht-vherjiq and prescription medicines only as told by [...] provider. Document Revised: 05/17/2021 Document Reviewed: 05/17/2021 Digital H2O Patient Education 2022 Interse. Follow Up Care 05/08/2024 07:16:07 With:Vick Mcghee Address: [address] [place] [phone] Business (1) When:05/11/2024 09:31:54 Comments:Call the office [...] you develop any new or worsening symptoms. [facility]07-21-2024 NoteED Patient Education Note Neurology Vertigo [...] you feel dizzy. General instructions ? Take zbuu-kxf-glrqsai and prescription medicines only as told by [...] provider. Document Revised: 09/04/2021 Document Reviewed: 09/04/2021 Digital H2O Patient Education ? 2022 Interse. Obstetrics and Gynecology Urinary Tract Infection, Adult [...] have certain medical conditions, (more content not included)...[facility]02-14-2024 Telephone encounter Note* Telephone Encounter - JESSICA Hunt - 12/02/2023 10:41 AM EST Pt notified of wellness lab results and low tsh, t3 and t4 labs ordered for her as well. Pt states she will follow up with her primary care physician, DR Mcghee in next few weeks. She denies any symptoms at this time [facility] [id number] Miscellaneous Notes* Telephone Encounter - JESSICA Hunt - 12/02/2023 10:41 AM EST Pt notified of wellness lab results and low tsh, t3 and t4 labs ordered for her as well. Pt states she will follow up with her primary care physician, DR Mcghee in next few weeks. She denies any symptoms at this time [id number] History of Present illness Narrative* JESSICA Hunt [...] KNEE SURGERY Bilateral Left: 2005; Right: 2015 MS LAPAROSCOPIC APPENDECTOMY 12/04/2017 MS REMOVAL OF KIDNEY STONE 2007 Allergies Allergen [...] nursing note reviewed. Exam conducted with a tone artist apprentice present. Vitals: Estimated body mass index is [...] behalf of: JESSICA Hunt documented in [facility] [id number] Evaluation + Plan note Extracted from: Title:Pain [...] Date:12/18/2023 01:45:00 PM Scheduled Provider:Willie Kaur MD [facility] [place] Appoint[facility] Type:Cardiology Follow Up (FT) [facility]01-08-2024 Evaluation + Plan noteExtracted from: Title:Pain [...] Date:11/17/2023 11:30:00 AM Scheduled Provider:Landon DOUGLAS MD [facility] Type:Cardiology Follow Up (FT) Appointment Date:11/20/2023 01:15:00 PM Scheduled Provider:Vicky Castillo PA-C Location:[facility] Appointment Type:Pain Management - Follow Up (FT) [facility]12-20-2023 Evaluation + Plan noteExtracted from: Title:Right [...] 08:15:00 AM Scheduled Provider:Vicky Castillo PA-C Location:.[facility] Appointment Type:Pain Management - Follow Up (FT) Appointment Date:11/17/2023 11:30:00 AM Scheduled Provider:Landon DOUGLAS MD Location:.[facility]iology Clinic Appointment Type:Cardiology Follow Up (FT) [facility]12-20-2023 Note [id number]23 NoteDiagnosis: M54.16 Lumbar radiculopathy Procedure: [...] and agrees to comply to currently prescribed/recommended therapies.[facility] Comment on above:Result Comment: Electronically Signed By: Claudio Monroe DO.elmo\Date and Time Signed: 10/07/23 09:54 [id number] Evaluation + Plan note Extracted from: Title:FUV [...] Location:.[facility] Clinic Appointment Type:Cardiology Follow Up (FT) [facility]08-21-2023 Evaluation + Plan noteExtracted from: Title:Pain [...] Clinic Appointment Type:Cardiology ED Follow Up (FT) [facility]08-18-2023 Evaluation + Plan noteExtracted from: Title:ED Note Author:Prasad Avalos DO Date:05/19 06/10 Dizziness (R42: Dizziness an d giddiness) Hypertension (I10: Essential (primary) hypertension) Orders: losartan, 50 mg = 1 tab(s), Oral, Daily, X 30 day(s), # 30 tab(s), Refills(s) 0, Pharmacy: [id number], 152.4, cm, 06/05/23 8:54:00 EDT, Height/Length [...] AM Scheduled Provider:Vicky Castillo PA-C Location:[facility] [place] Appointment Type:Pain Management - Follow Up (FT) Appointment Date:07/06/2023 11:00:00 AM Scheduled Provider:Landon DOUGLAS MD Location:[facility]iology Clinic Appointment Type:Cardiology ED Follow Up (FT) [facility]08-18-2023 Hospital Discharge instructions Follow Up Care 06/05/2023 08:40:51 With:Vick Mcghee Address: [address] [place], [place] [phone] Business (1) When:Within 3 Day(s) [facility]07-17-2023 Evaluation + Plan noteExtracted from: Title:Pain [...] Date:06/08/2023 08:15:00 AM Scheduled Provider:Vicky Castillo PA-C Location:[facility] Appointment Type:Pain Management - Follow Up (FT) [facility]06-16-2023 Evaluation + Plan noteExtracted from: Title:ANES Post-operative Note - General Author: Lb Wu Jr., DO Date:04/03/23 Plan Transfer/Discharge: Transfer/Discharge Discharge when meets criteria ( From PACU to Ambulatory Surgery Unit, and To home ). Extracted from: Title:ANES Pre-operative Note - Endo Author:Lb Melendez Jr., DO Date:04/03/23 Plan [place] Society of Anesthesiologists (ASA) physical status classification: Class III. Anesthetic Preoperative Plan: Anesthesia General, and -TIVA. Future Appointments Appointment Date:04/07/2023 11:00:00 AM Scheduled Provider:Demar Trammell MD Location:[facility] Appointment Type:Pain Management - Follow Up (FT) Appointment Date:04/28/2023 09:00:00 AM Scheduled Provider:Vicky LAST CNP Location:[facility] Clinic Appointment Type:Cardiology Follow Up (FT) [facility]06-16-2023 Hospital Discharge instructions Patient Education 04/03/2023 [...] unsweetened, w/added ascorbic acid 1 cup 0.5 Bent 1 cup 0.7 Vegetables Cooked Green beans 1 cup 4.0 Carrots 1/2 cup sliced 2.3 Peas 1 cup 8.8 Potato (baked, with skin) 1 medium potato 3.8 Raw [place] (with peel) 1 cucumber 1.5 Lettuce 1 [...] 8.7 Peanuts 1/2 cup 7.9 Chart from [facility] 2013. SEEK IMMEDIATE MEDICAL CARE IF: You [...] of Agriculture (USDA) National Nutrient Database at: http://www.AisleFinder.usda.gov/fnic/foodcomp/search/ Created using data from the USDA National Nutrient Database for Standard Reference. Available at http://www.AisleFinder.iCracked.gov/fnic/foodcomp/search/. Information adapted from: [facility] Patient Information 2009 myFairPartner. [facility] 2012 http://www.MyColorScreen/contents/wvxgtxaldnrt-xjxfpyv-nonudb-the-basics 04/03/2023 10:24:14 Colonoscopy, Care After Surgery [place] (CUSTOM) Colonoscopy Care After Surgery Please read the instructions outlined below and refer to this sheet in the next few weeks. These discharge instructions provide you with general information on caring for [facility] Your doctor may also give you [...] reduce GERD symptoms. Medicines. These may include: ?Brjg-tim-ffretjk antacids. ?Medicines that make your stomach empty [...] may include: ?Fatty foods, like fried foods. ?[place] fruits, like oranges or lemon. ?Other foods [...] Do not drink alcohol. General instructions Take wujq-ckr-ambrcun and prescription medicines only as told by [...] provider. Document Revised: 08/19/2022 Document Reviewed: 09/05/2021 Digital H2O Patient Education 2022 Interse. 04/03/2023 10:24:03 Endoscopy, Care After Procedure [facility] Endoscopy Care After Procedure Please read the instructions outlined below and refer to this sheet in the next few weeks. These discharge instructions provide you with general information on caring for yourself [facility] Your doctor may also give you [...] Document Re-Released: 03/29/2007 ExitCare Patient Information 2009 myFairPartner. Follow Up Care 02/23/2023 10:35:27 With:Michael ALBRIGHT Address: [address] [place] [address], [facility] [address] [phone] Business (1) When:2 weeks [facility]05-08-2023 Evaluation + Plan noteExtracted from: Title:NPV [...] Appointments Appointment Date:04/03/2023 10:30:00 AM Scheduled Provider: Location:[facility] Appointment Type:Surgery FT Appointment Date:04/28/2023 09:00:00 AM Scheduled Provider:Vicky LAST CNP Location:[facility]Cardiology Clinic Appointment Type:Cardiology Follow Up (FT) [facility]12-21-2021 Hospital Discharge instructions Follow Up Care 10/08/2021 14:10:47 With:Landon Douglas MD Address: [place] [address] [phone] When: Unknown [facility] Future Appointments Appointment Date:11/05/2022 11:30:00 AM Scheduled Provider:Landon Douglas MD Location:[facility] Clinic Appointment Type:Cardiology Follow Up (FT) Future Scheduled Tests Laboratory* Lipid Panel 09/05/21 Radiology* Echo Tran[facility]horacic [facility] Future App[facility]ments Appointment Date:11/05/2022 11:30:00 AM Scheduled Provider:Landon Douglas MD Location:[facility] Appointment Type:Cardiology Follow Up (FT) [facility] + Plan note Future Appointments Appointment Date:02/23/2023 12:30:00 PM Scheduled Provider:Demar Trammell MD Location:[facility] Appointment Type:Pain Management - New (FT) Appointment Date:04/28/2023 09:00:00 AM Scheduled Provider:Vicky LAST CNP Location:[facility] Appointment Type:Cardiology Follow Up (FT) General Surgery [place] Evaluation + Plan note Future Appointments Appointment Date:04/03/2023 10:30:00 AM Scheduled Provider: Location:[facility] Appointment Type:Surgery FT Appointment Date:04/07/2023 11:00:00 AM Scheduled Provider:Demar Trammell MD Location:[facility] Appointment Type:Pain Management - Follow Up (FT) Appointment Date:04/28/2023 09:00:00 AM Scheduled Provider:Vicky LAST CNP Location:[facility] App[facility] Future Appointments Appointment Date:04/20/2023 02:15:00 PM Scheduled Provider:Demar Trammell MD Location:[facility] Appointment Type:Pain Management - Office Injection (FT) Appointment Date:04/28/2023 09:00:00 AM Scheduled Provider:Vicky LAST CNP Location:[facility] Appointment Type:Cardiology Follow Up (FT) Appointment Date:05/04/2023 09:00:00 AM Scheduled Provider:Vicky Castillo PA-C Location:[facility] [place] Appointment Type:Pain Management - Follow Up (FT) General Surgery [place] Evaluation + Plan note Future Appointments Appointment Date:04/28/2023 09:00:00 AM Scheduled Provider:Vicky LAST CNP Location:[facility] Appointment Type:Cardiology Follow Up (FT) Appointment Date:05/04/2023 09:00:00 AM Scheduled Provider:Vicky Castillo PA-C Location:[facility] [place] Appointment Type:Pain Management - Follow Up (FT) [facility] Future Appointments Appointment Date:05/04/2023 09:00:00 AM Scheduled Provider:Vicky Castillo PA-C Location:[facility] [place] Appointment Type:Pain Management - Follow Up (FT) [facility] Future Appointments Appointment Date:07/14/2023 09:30:00 AM Scheduled Provider:Vicky LAST CNP Location:[facility] Appointment Type:Cardiology Follow Up (FT) [facility] Future Appointments Appointment Date:11/17/2023 11:30:00 AM Scheduled Provider:Landon DOUGLAS MD Location:[facility] Appointment Type:Cardiology Follow Up (FT) Appointment Date:11/20/2023 01:15:00 PM Scheduled Provider:Vicky Castillo PA-C Location:[facility] [place] Appointment Type:Pain Management - Follow Up (FT) [facility] Future Appointments Appointment Date:11/20/2023 01:15:00 PM Scheduled Provider:Vicky Castillo PA-C Location:[facility] [place] Appointment Type:Pain Management - Follow Up (FT) Appointment Date:12/14/2023 10:45:00 AM Scheduled Provider:Barry Husain MD Location:FT.Pulmonary Clinic Appointment Type:Pulmonary New Patient (FT) Appointment Date:12/18/2023 01:45:00 PM Scheduled Provider:Willie Kaur MD [facility]iology Follow Up (FT) [facility] Future Appointments Appointment Date:08/08/2024 08:15:00 AM Scheduled Provider:Claudio Monroe DO Location:[facility] Appointment Type:Pain Management - Follow Up (FT) Appointment Date:01/12/2025 09:30:00 AM Scheduled Provider:Lokesh Mcqueen PA-C [facility] Type:Cardiology Follow Up (FT) [facility] Evaluation + Plan note Future Appointments Appointment Date:01/12/2025 09:30:00 AM Scheduled Provider:Lokesh Mcqueen PA-C [facility] Type:Cardiology Follow Up (FT) Future Scheduled Tests Radiology* CT Spine Lumbar w/ Contrast 08/15/24 [facility] evaluation + Plan note Future Appointments Appointment Date:07/13/2024 03:00:00 PM Scheduled Provider:Willie Kaur MD [facility] Type:Cardiology Follow Up (FT) Appointment Date:08/08/2024 08:15:00 AM Scheduled Provider:Claudio Monroe DO Location:[facility] Appointment Type:Pain Management - Follow Up (FT) [facility] evaluation + Plan note Future Appointments Appointment Date:01/13/2025 10:15:00 AM Scheduled Provider:Lokesh Mcqueen PA-C [facility] Type:Cardiology Follow Up (FT) Future Scheduled Tests Radiology* CT Spine Lumbar w/ Contrast 08/15/24 [facility] evaluation + Plan note Future Appointments Appointment Date:01/23/2025 02:30:00 PM Scheduled Provider:Baldomero Hurtado MD [facility] Type:Cardiology Inpatient Follow Up (FT) Future Scheduled Tests Radiology* CT Spine Lumbar w/ Contrast 08/15/24 [facility] Evaluation + Plan note Future Appointments Appointment Date:01/23/2025 02:30:00 PM Scheduled Provider:Radu Kurtz MD Location:[facility] Appointment Type:Cardiology Inpatient Follow Up (FT) Future Scheduled Tests Radiology* CT Spine Lumbar w/ Contrast 08/15/24 [facility] evaluation + Plan note Future Appointments Appointment Date:07/26/2025 01:00:00 PM Scheduled Provider:Radu Kurtz MD Location:[facility] Appointment Type:Cardiology Follow Up (FT) Future Scheduled Tests Radiology* CT Spine Lumbar w/ Contrast 08/15/24 [facility] evaluation note* Diagnosis Well woman exam with routine gynecological exam Routine gynecological examination Breast cancer screening by mammogram Other osteoporosis, unspecified pathological fracture presence ([facility]/HCC) Restless legs Restless legs syndrome (RLS) Well [...] this encounter [facility] HealthcareEvaluation noteNo assessment information availableVeterans Health Administration Work Phone: Evaluation note* Diagnosis Well woman exam with routine gynecological exam Routine gynecological examination Osteoporosis, post-menopausal ([facility]) Senile osteoporosis Breast cancer screening by mammogram [...] lumbar region- Primary documented in this encounter [facility] HealthcareEvaluation note* Diagnosis Other spondylosis with myelopathy, lumbar region- Primary documented in this encounter [facility] HealthcareEvaluation note* Diagnosis Other spondylosis with myelopathy, lumbar region- Primary documented in this encounter 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 or other cause, without mention of thyrotoxic crisis or storm documented in this encounter [facility] Work Phone: Hospital course Narrative No data available for this section [facility] No data available for this section [facility] No data available for this section [facility] Narrative* Rehabilitation - Outpatient (Routine) - Authorized Specialty Diagnoses / Procedures Referred By Christian berg Referred To Contact Physical Therapy Diagnoses Other spondylosis with myelopathy, lumbar region Procedures MS PHYSICAL THERAPY EVALUATION LOW COMPLEX 20 MINS MS OFFICE/OUTPATIENT NEW HIGH MDM 60 MINUTES Kath Carson MD [address] [place] [address] [address] [place] [address] Phone: tel: fax: Sofi Pyle PT Referral ID Status Reason Start Date Expiration Date V isits Requested Visits Authorized [id number] Authorized 03/10/2025 10/18/[address] [facility] Healthcare Summary Purpose Family History No Family [...] FoundNo Family History Records Found Advance Directives Advance Directive Response Recorded Date/ Time Advance Directives No March 01 8 11:02am Advance Directive Response Recorded Date/ Time Advance Directives No March 01 12:02pm Chief Complaint and Reason for Visit Chief Complaint Admit Date R76.0 January 17, 2025 9:41 am Additional Source Comments INFORMATION SOURCE (unrecogn ized section and content) DATE CREATED AUTHOR 04/15/2018 [facility] DATE CREATED AUTHOR AUTHOR'S ORGANIZ ATION 03/04/2023 [facility] DATE CREATED AUTHOR AUTHOR'S ORGANIZ ATION 05/10/2024 [facility] DATE CREATED AUTHOR AUTHOR'S ORGANIZ ATION 07/17/2024 [facility] DATE CREATED AUTHOR AUTHOR'S ORGANIZ ATION 08/12/2024 [facility] DATE CREATED AUTHOR AUTHOR'S ORGANIZ ATION 11/17/2024 [facility] DATE CREATED AUTHOR AUTHOR'S ORGANIZ ATION 02/06/2025 [facility] DATE CREATED AUTHOR AUTHOR'S ORGANIZ ATION 04/06/2025 [facility] DATE CREATED AUTHOR AUTHOR'S ORGANIZ ATION 04/20/2025 [facility] DATE CREATED AUTHOR AUTHOR'S ORGANIZ ATION 05/06/2025 [facility] Labor 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 Team (unrecognized sect ion and content) Terminal System Operator Relationship Specialty Start Date End Date Vick Mcghee MD [address] [place] [address] PCP - General Family Medicine 05/21/23 Terminal System Operator Relationship Specialty Start Date End Date Vick Mcghee MD [address] [facility] [place] [address] PCP - General Family Medicine 05/21/23 Terminal System Operator Relationship Specialty Start Date End Date Vick Mcghee MD [address] [facility] [place] [address] PCP - General Family Medicine 05/21/23 Terminal System Operator Relationship Specialty Start Date End Date Vick Mcghee MD [address] [facility] [place] [address] PCP - General Family Medicine 05/21/23 Terminal System Operator Relationship Specialty Start Date End Date Vick Mcghee MD [address] [facility] [place] [address] PCP - General Family Medicine 05/21/23 Terminal System Operator Relationship Specialty Start Date End Date Vick Mcghee MD [address] [facility] [place] [address] PCP - General Family Medicine 05/21/23 Team Status: Active Member Role Status Dates Vick Mcghee MD Primary Care Provider Active Team Status: Inactive Member Role Status Dates Vick Mcghee MD Primary Care Provider Active Start: September 02, 2024 End: September 02, 2024 NON STAFF Attending Provider Active Start: No [email or web address] End: September 02, 2024 Terminal System Operator Relationship Specialty Start Date End Date Vick Mcghee MD [address] [facility] [place] [address] PCP - General Family Medicine 05/21/23 Terminal System Operator Relationship Specialty Start Date End Date Vick Mcghee MD [address] [place] [address] PCP - General Family Medicine 05/21/23 Team Status: Inactive Member Role Status Dates Vick Mcghee MD Primary Care Provider Active Start: January 17, 2025 End: January 17, 2025 Boo Godoy MD Attending Provider Active St art: January 17, 2025 End: January 17, 2025 Terminal System Operator Relationship Specialty Start Date End Date Vick Mcghee MD PCP - General Family Medicine 05/21/23 Terminal System Operator Relationship Specialty Start Date End Date Vick Mcghee MD PCP - General Family Medicine 05/21/23 Terminal System Operator Relationship Specialty Start Date End Date Vick Mcghee MD PCP - General Family Medicine 05/21/23 Terminal System Operator Relationship Specialty Start Date End Date Vick Mcghee MD PCP - General Family Medicine 05/21/23 Terminal System Operator Relationship Specialty Start Date End Date Vick Mcghee MD PCP - General Family Medicine 05/21/23 Terminal System Operator Relationship Specialty Start Date End Date Vick Mcghee MD PCP - General Family Medicine 05/21/23 Terminal System Operator Relationship Specialty Start Date End Date Vick Mcghee MD PCP - General Family Medicine 05/21/23 Terminal System Operator Relationship Specialty Start Date End Date Vick Mcghee MD PCP - General Family Medicine 05/21/23 Terminal System Operator Relationship Specialty Start Date End Date Vick Mcghee MD PCP - General Family Medicine 05/21/23 Terminal System Operator Relationship Specialty Start Date End Date Vick Mcghee MD PCP - General Family Medicine 05/21/23 Terminal System Operator Relationship Specialty Start Date End Date Vick Mcghee MD PCP - General Family Medicine 05/21/23 Terminal System Operator Relationship Specialty Start Date End Date Vick Mcghee MD PCP - General Family Medicine 05/21/23 Terminal System Operator Relationship Specialty Start Date End Date Vick Mcghee MD PCP - General Family Medicine 05/21/23 Terminal System Operator Relationship Specialty Start Date End Date Vick Mcghee MD PCP - General Family Medicine 05/21/23 Terminal System Operator Relationship Specialty Start Date End Date Vick Mcghee MD PCP - General Family Medicine 05/21/23 Terminal System Operator Relationship Specialty Start Date End Date Vick Mcghee MD [address] [place] [address] PCP - General Family Medicine 05/02/25 Reason for Visit (unrecogniz ed section and content) Reason Comments Well Women Visit Reason Comments Foot Pain Chloe Agarwal is a 68 y.o. female who presents with concerns of redness on the bottom, pain, leg cramps. Pain is worse when laying down, toes curl and pain shoots up her leg. SS 7.5 Reason Comments Gynecologic Exam Reason Comments New Patient Visit Self referral. [facility] 04/25/25 Specialty Diagnoses / Procedures Referred By Christian berg Referred To Contact Diagnoses Chest pain, unspecified type Procedures ECG 12 Lead Yodit Sal MD [address] [facility] [place] [address] Phone: tel: fax: Referral ID Status Reason Start Date Expiration Date V isits Requested Visits Authorized [id number] Authorized 05/02/2025 05/02/2026 1 1 Reason Onset Date Comments PT CX 04/26/25 04/24/2025 PT on-hold 04/27/2025 Goals (unrecognized section and content) Goals may [...] BE BASED ON THE PRIMARY CLINICAL RECORDS. [employer] provides no warranty or guarantee of the accuracy or completeness of information in this document.
[2025-07-10 10:29] LABS: Free T3 3.10 pg/mL (2.18-3.98); Thyroid Stimulating Hormone 0.929 uIU/mL (0.358-3.740)
== END 2025-07-10 09:18 | disposition home or self-care (01) ==
LOC: LAB 09:20
PROVIDERS: PCP Family Medicine; Visit Provider Family Medicine
DX: E05.00 Thyrotoxicosis with diffuse goiter without thyrotoxic crisis or storm (principal)
CPT/HCPCS: 36415; 84436; 84443; 84481

== ENCOUNTER 2025-08-09 09:08 | Outpatient (OUT) | payer MEDICARE, SELFPAY ==
--- OUTSIDE RECORDS SUMMARY | 2025-08-04 09:30 | XMS_ITS | Encounter Summary ---
Author Organization [facility] Address [address] [place] [address] Care Team Providers Care Mental Health Nurse Practitioner Name Role Phone Vick Zelaya MD Primary Care Provider [phone] Reason for Visit * Rehabilitation - Outpatient (Routine) - AuthorizedSpecialtyDiagnoses / ProceduresReferred By ContactReferred To ContactPhysical Therapy Diagnoses Troch Bursitis, Right Procedures [place] PHYSICAL THERAPY EVALUATION LOW COMPLEX 20 MINS ND OFFICE/OUTPATIENT NEW HIGH MDM 60 MINUTES Bernardo Carson MD [address] [place] [address] Phone: tel: fax: Sofi Pyle PT Referral IDStatusReasonStart DateExpiration DateVisits RequestedVisits [id number]/17/202512/31/20251510 Encounter Details DateTypeDepartmentCare Team (Latest Contact Info)Znhpefkeusx08/17/2025 9:30 [facility] [address] [place] [address] Sofi Pyle PT Trochanteric bursitis, right hip (Primary Dx) Social History Tobacco UseTypesPacks/DayYears UsedDateSmoking Tobacco: NeverSmokeless Tobacco: NeverAlcohol UseStandard Drinks/WeekCommentsYes0 (1 standard drink = 0.6 oz pure alcohol)1 or 2 drinks/day, monthly or less; Caffeine: 1-2 cups/dayAUDIT-CAnswer Date RecordedQ1: How often do you have a drink containing alcohol?Monthly or less11/24/2023Q2: How many drinks containing alcohol do you have on a typical day when you are drinking?1 or Q3: How often do you have six or more drinks on one occasion?Never4CommentsNoSex and Gender InformationValueDate RecordedSex Assigned at BirthNot on fileLegal SexFemale 12/31/2022 8:14 PM EDTGender IdentityNot on fileSexual OrientationNot on file documented as of this encounter Progress Notes * Sofi Pyle, PT - 08/04/2025 9:30 AM EDT Images from the original note were not included. Physical Therapy Evaluation Visit Patient Name: Gladys Holliday Today's Date: 08/04/2025 Encounter Diagnoses Name Primary? Trochanteric bursitis, right hip Yes Visit number: 1 Timed Code Treatment Minutes: 45 minutes Total Treatment Time: 55 minutes Time In: 0921 Time Out: 1017 History: Pt underwent surgery for low back in January of this year. States since surgery she has beenhaving pain that comes and goes down right LE. Pt states she feels like pain has been gradually worsening. Sometimes she is unable to sit for long periods due to pain in buttock. Usually once she stands she is OK. States she still cannot tolerate laying on her right side either. Was recently given a shot in lower lumbar region which helped quite a bit. Pt states pain will continue to go from right buttock and down to front and side of right ankle. Precautions: Lumbar fusion Subjective: right buttock and LE pain Pain: 03/28 Objective: PT Evaluation (08/04/2025) LUMBAR SPINE AROM: full flexion without increase pain, increase right buttock pain with extension, no pain at end range left SB, increase right buttock and LE pain at end range right SB Strength: core strength is fair; right hip strength 4- to 4/5, left hip 4/5 Muscle length: tightness right piriformis and HS Palpation: moderate to severe tenderness right buttock Special Test: neuro tension present right LE Functional: pt ambulates without device with slightly flexed posture Neurological: Reflexes: not tested Myotomes: intact Dermatomes: intact Special Test: negative clonus Treatment: Education: HEP education with demonstration, Educated on Eval Findings and POC Manual Therapy: (12 minutes) Passive ROM, Joint mobilization, Soft Tissue Mobilization, Myofascial Release, Muscle Energy Technique, Neural Mobilization, Myofascial Cupping, Dry Needling, IASTM, and Scar mobilization as needed. STM to right piriformis in left SL with moderate tenderness noted Therapeutic Exercise: (12 minutes) Strength, Endurance, Flexibility, ROM, HEP, Neural Mobilization,Power, and Core Stability as needed. Pt performed and instructed in home program this date; writteninstructions and pictures issued with good pt understanding. Therapeutic Activity: Exercises to improve dynamic activities, functional tasks, functional mobility to return to prior activity level as needed. Neuromuscular re-education: Balance Training, Muscle Facilitation, Dynamic Stability, Core Stabilization, and Blood Flow Restriction Training (BFRT) as needed. Modalities: Heat, Ice, Electrical Stimulation, Ultrasound, Cervical Mechanical Traction, Lumbar Mechanical Traction, Iontophoresis, and Fluidotherapy as needed. HP x 10 minutes in left SL Assessment: Pt is 69 y/o female with complaints of chronic right buttock and LE pain following backsurgery in January. Pt with moderate to severe tenderness right piriformis. Pt with decrease strengthright hip with MMT. Pt instructed in home program with good understanding; will benefit from further PT. Outcome Measure: Back Index: 10/50 Rehab Diagnosis: right LE pain and weakness, decrease ROM and mobility Short Term Goal: To be met in 2 weeks Goal 1: Pt to be instructed in home exercise program. Group Home Goals: To be met in 10 weeks Goal 1: Pt to report independence and compliance with home program. Goal 2: Pt to have functional trunk ROM without complaints of increase pain at end ranges to assistwith functional tasks. Goal 3: Pt to report pain no greater than 2/10 with function tasks, ADL's, and work related activities. Goal 4: Pt to score no greater than 4/50 on Back Index indicating improved QOL. Pt will benefit from skilled PT for 2x/week from 08/04/2025 to 11/02/2025 to address the above impairments. I hereby deem this POC medically necessary. Please sign below. Date: documented in this encounter Plan of Treatment DateTypeDepartmentCare Team (Latest Contact Info)Owusaabbpfw02/24/2025 3:00 PM EDTTreatment [facility] [address] [place] [address] GeDee henry, POLICE DETECTIVE 08/14/2025 8:30 AM EDTTreatment [facility] [address] [place] [address] Candida Velasco, POLICE DETECTIVE 08/17/2025 10:30 AM EDTTreatment [facility] [address] [facility] [address] [place] [address] GezoDee, POLICE DETECTIVE 08/22/2025 8:30 AM ESTTreatment [facility] [address] [facility] [address] [place] [address] GezoDee, POLICE DETECTIVE 08/24/2025 10:30 AM ESTTreatment [facility] [address] [facility] [address] [place] [address] GeDee henry, POLICE DETECTIVE 12/04/2025 10:00 AM ESTOffice Visit [facility] [address] [place] [phone] Antionette Yang PA [address] [facility] [address] [place], [place] [address] documented as of this encounter Visit Diagnoses Diagnosis Trochanteric bursitis, right hip- Primary documented in this encounter Care Teams Team MemberRelationshipSpecialtyStart DateEnd Date Vick Zelaya MD PCP - GeneralFamily Medicine05/21/23documented as of this encounter
--- OUTSIDE RECORDS SUMMARY | 2025-08-07 13:30 | XMS_ITS | Encounter Summary ---
Author Organization [facility] Address [address] [place] [address] Care Team Providers Care Machine Crater Name Role Phone Vick Zelaya MD Primary Care Provider [phone] Reason for Visit * Rehabilitation - Outpatient (Routine) - AuthorizedSpecialtyDiagnoses / ProceduresReferred By ContactReferred To ContactPhysical Therapy Diagnoses Troch Bursitis, Right Procedures [place] PHYSICAL THERAPY EVALUATION LOW COMPLEX 20 MINS [place] OFFICE/OUTPATIENT NEW HIGH MDM 60 MINUTES Bernardo Carson MD [address] [place] [address] Phone: tel: fax: Sofi Pyle, PT Referral IDStatusReasonStart DateExpiration DateVisits RequestedVisits [id number]/17/202512/31/20251510 Encounter Details DateTypeDepartmentCare Team (Latest Contact Info)Yecaogdifhb75/20/2025 1:30 PM EDTTreatment [facility] [address] [place] [phone] Candida Velasco, JANITORIAL CLEANER Trochanteric bursitis, right hip (Primary Dx); Other spondylosis with myelopathy, lumbar region Social History Tobacco UseTypesPacks/DayYears UsedDateSmoking Tobacco: NeverSmokeless [...] as of this encounter Progress Notes * Candida Velasco, JANITORIAL CLEANER - 08/07/2025 1:30 PM EDT Images from the original note were not included. Physical Therapy Treatment Visit Patient Name: Gladys Holliday Today's Date: 08/07/2025 Encounter Diagnoses Name Primary? Trochanteric bursitis, right hip Yes Other spondylosis with myelopathy, lumbar region Visit number: 2 Timed Code Treatment: 42 minutes Total Treatment Time: 52 minutes Time In: 1:30 PM Time Out: 2:22 PM History: Pt underwent surgery for low back [...] fusion Subjective: right buttock and LE pain and tightness. Has been performing HEP as instructed Pain: 01/26 Objective: PT Evaluation (08/04/2025) LUMBAR SPINE AROM: [...] Dermatomes: intact Special Test: negative clonus Treatment: Manual Therapy: (17 minutes) Delivered manual ther pt supine and L side lying STM to right piriformis in left SL with moderate tenderness noted Therapeutic Exercise: (25 minutes supervised) Guided pt through ther and flex ex per grid to improve bilateral LE hip functional Strength, Endurance, Flexibility, ROM, HEP, Neural Mobilization, Power, and Core Stability as needed. Therapeutic Activity: Exercises to improve dynamic activities, functional tasks, functional mobility to return to prior activity level as needed. Neuromuscular re-education: Balance Training, Muscle Facilitation, Dynamic Stability, Core Stabilization, and Blood Flow Restriction Training (BFRT) as needed. Modalities: (10 minutes ) Post session MHP in left SL to reduce muscle pain and tightness Assessment: Visit #2 pt complaints of chronic right buttock and LE pain following back surgery in January. Pt with moderate to severe tenderness right piriformis addressed with manual ther. Initiated core strengthening ex with general LE stretching, no adverse response to session. Reviewed HEP and pthas good knowledge of importance of performing. Ended session with MHP Outcome Measure: Back Index: 10/50 Rehab Diagnosis: right LE pain and weakness, decrease ROM and mobility Short Term Goal: To be met in 2 weeks Goal 1: Pt to be instructed in home exercise program. [facility] Goals: To be met in 10 weeks [...] Date: Cosigned by Sofi Pyle, PT at 08/07/2025 4:12 PM EDT documented in this encounter Plan of Treatment DateTypeDepartmentCare Team (Latest Contact Info)Traaukvrkoz96/24/2025 3:00 PM EDTTreatment [facility] [address] [place] [address] GeDee henry, JANITORIAL CLEANER 08/14/2025 8:30 AM EDTTreatment [facility] [address] [place] [address] Candida Velasco, JANITORIAL CLEANER 08/17/2025 10:30 AM EDTTreatment [facility] [address] [place] [address] Gezo Dee, JANITORIAL CLEANER 08/22/2025 8:30 AM ESTTreatment [facility] [address] [place] [address] Gezo, Dee, JANITORIAL CLEANER 08/24/2025 10:30 AM ESTTreatment [facility] [address] [place] [address] Gezo Dee, JANITORIAL CLEANER 12/04/2025 10:00 AM ESTOffice Visit [facility] [address] [phone] Antionette Yang PA [address] [address] documented as of this encounter Visit Diagnoses Diagnosis Trochanteric bursitis, right hip- Primary Other spondylosis with myelopathy, lumbar region documented in this encounter Care Teams Team MemberRelationshipSpecialtyStart DateEnd Date Vick Zelaya MD PCP - GeneralFamily Medicine05/21/23documented as of this encounter
--- OUTSIDE RECORDS SUMMARY | 2025-08-09 09:14 | XMS_ITS | Clinical Summary ---
Author Organization [facility] Healthcare Address [address] [place] [address] Care Team Providers Care Photocomposition Keyboard Operator Name Role Phone Vick Zelaya MD Primary Care Provider [phone] Allergies Active AllergyReactionsCriticalityNoted TuqxPizgllebRaqpnzeu85/10/2025 Other Reaction(s): Hand pain, Hot flashes, Numbness of limbs, Weakness of bilateral lower extremities, Weakness of bilateral upper extremities AzrwqlpezeSpszeo14/20/2024 Other Reaction(s): Vomiting AmtuxidzsjNikhadak21/28/0839Kquqknoixj89/03/2023 Other Reaction(s): Coughing Sulfa Oslrkagegtq87/03/2023 Other Reaction(s): Unknown Medications MedicationSigDispense QuantityRefillsLast FilledStart DateEnd DateStatus pantoprazole (ProtoNix) 40 MG EC tablet Take 40 mg by mouth in the morning. Take before meals. Do not crush, chew, or split. .Active metoprolol succinate XL (Toprol-XL) 25 MG 24 hr tablet Take 50 mg by mouth. Do not crush or chew.Active losartan (Cozaar) 25 MG tablet Take 100 mg by mouth.Active sucralfate (Carafate) 1 GM/10ML suspension Take 1 g by mouth every 6 (six) hours.Active rOPINIRole (Requip) 0.5 MG tablet Take 0.5 mg by mouth at bedtimeActive hydroCHLOROthiazide (Microzide) 12.5 MG capsule Take 12.5 mg by mouth in the morning.4Active alendronate (Fosamax) 70 MG tablet Indications:Other osteoporosis, unspecified pathological fracture presenceTake 1 tablet (70 mg) by mouth every 7 (seven) days Take in the morning with a full glass of water,on an empty stomach, and do not take anything else by mouth or lie down for the next 30 min. 4 tablet 604Active Active Problems ProblemNoted DateDiagnosed DateHallux valgus with bunions of right foot 05/21/2023 Encounters DateTypeDepartmentCare FmlpPtmghuyxvyb09/20/2025 1:30 PM EDTTreatment [facility] [address] [facility] [address] [place] [address] Candida Velasco, CHIEF GUARD Trochanteric bursitis, right hip (Primary Dx); Other spondylosis with myelopathy, lumbar qtwjqn5208/07/2025amboo flowsheet [facility] [address] [facility] [address] [place] [address] Candida Velasco, CHIEF GUARD 08/07/20253772Vkhqhg44/17/2025 9:30 AM EDTEvaluation [facility] [address] [facility] [address] [place] [address] Sofi Pyle, PT Trochanteric bursitis, right hip (Primary Dx)08/04/2025Plan of Care Documentation [facility] [address] [facility] [address] [place] [address] 08/04/2025amboo flowsheet [facility] [address] [facility] [address] [place] [address] Sofi Pyle, PT 08/04/2025Travelfrom Last 3 Months Immunizations ImmunizationAdministration DatesNext DueZoster, Pyjyzeyshvz37/07/2021,11/12/2020 Family History Medical HistoryRelationNameCommentsHeart diseaseFatherEarly natural deathMother Heart vmdculeXgptzzSzxvgazqPvclUoocwoZaixttfaCyopjtt7NkioaeFdkvoahzMbddzn DeceasedSonAlive3 Social History Tobacco UseTypesPacks/DayYears UsedDateSmoking Tobacco: NeverSmokeless Tobacco: Never Tobacco Cessation:Counseling Given: Not Answered Alcohol UseStandard Drinks/WeekCommentsYes0 (1 standard drink = 0.6 oz pure alcohol)1 or 2 drinks/day, monthly or less; Caffeine: 1-2 cups/dayAUDIT-CAnswer Date RecordedQ1: How often do you have a drink containing alcohol?Monthly or less11/24/2023Q2: How many drinks containing alcohol do you have on a typical day when you are drinking?1 or Q3: How often do you have six or more drinks on one occasion?Never11/24/2023CommentsNoSex and Gender InformationValueDate RecordedSex Assigned at BirthNot on fileLegal SexFemale 12/31/2022 8:14 PM EDTGender IdentityNot on fileSexual OrientationNot on file Last Filed Vital Signs Vital SignReadingTime TakenCommentsBlood Xanrhxqa977/7602 8:59 AM EST Pulse--Temperature--Respiratory Rate--Oxygen Saturation--Inhaled Oxygen Concentration--Alyywc21.5 kg (162 lb)11/28/2024 8:59 AM CSRMwbccr285.4 cm (5') 08/11/2024 10:49 AM EDTBody Mass Index31.6408/11/2024 10:49 AM EDT Plan of Treatment DateTypeDepartmentCare Team (Latest Contact Info)Gklqyelzxdj75/24/2025 3:00 PM EDTTreatment [facility] [address] [facility] [address] [place] [address] Dee Christine, CHIEF GUARD 08/14/2025 8:30 AM EDTTreatment [facility] [address] [facility] [address] [place] [address] Candida Velasco, CHIEF GUARD 08/17/2025 10:30 AM EDTTreatment [facility] [address] [facility] [address] [place] [address] Dee Christine, CHIEF GUARD 08/22/2025 8:30 AM ESTTreatment [facility] [address] [facility] [address] [place] [address] Jl Christineie, CHIEF GUARD 08/24/2025 10:30 AM ESTTreatment [facility] [address] [place] [address] Jl Christineie, CHIEF GUARD 12/04/2025 10:00 AM ESTOffice Visit [facility] [address] [facility] [address] [place] [address] Antionette Yang PA [address] [facility] [place] [address] Health MaintenanceDue DateLast DoneCommentsCT Igbhorpowocx1957FIT-DNA 1955FIT1955FOBT1955 8395Cvqymrjrbwvji1957Pneumococcal Vaccine: 65+ Years (1 of 1 - PCV)2007Influenza Vaccine (#1)2025 Hgjyhqhau24/26/09534812/14/2024, 11/30/2023, 10/22/2022, Additional history exists Vwqcbfrkfjg00/16/203306/3Colorectal Cancer Ftbqudcif21/16/2033Cervical Cancer ScreeningDiscontinuedPap QgxsgGcnehqywspvd11/10/2025HPV/Cotest Discontinued Procedures Procedure NamePriorityDate/TimeAssociated DiagnosisCommentsMM TOMOSYNTHESIS SCREENING BI12/14/2024 11:47 AM EST PAP FWEXHUmnxgxw51/10/2025 12:00 AM ESTfrom Last 3 Months or Most Recently Relevant to Health Maintenance Results * MM TOMOSYNTHESIS SCREENING BI (12/14/2024 11:47 AM EST)Anatomical Region LateralityModalityOtherSpecimen (Source)Anatomical Location / Laterality Collection Method / VolumeCollection TimeReceived Time12/14/2024 11:47 AM EST Narrative 12/14/2024 11:48 AM EST [facility] ?[address] ? [place] [address] ? Mammography Report ? Signed ? Patient: ANY,CHLOE J ?MR#: [id number] ?? : 1955 ?Acct:[id number] ?? Age/Sex: 69 / F ?ADM Date: 02/26/25 ?? Loc: MAMMO ? Attending Dr: Antionette Yang ? Ordering Physician: Antionette Yang ?Results: ? Date of Service: 12/14/24 ?Follow Up: ? Procedure(s): MM tomosynthesis screening BI ?? Accession Number(s): [id number] ? cc: Antionette Yang; Vick Zelaya M.D. ? Patient Name: ? CHLOE AGARWAL ? MR#: [id number] ? : 1955 ? Exam Date: 12/14/2024 ?? Ordering Doctor: JESSICA Yang . ? RADIOLOGY REPORT ? PROCEDURE: ? MM TOMOSYNTHESIS SCREENING BI ? COMPARISON: ? MM TOMOSYNTHESIS SCREENING BI, 11/30/2023. ??MG MAMM SCREEN 3D ?? LAURA CAD, 10/22/2022. ??MG MAMM LAURA DIAG W CAD, 06/26/2021. ??MG MAMM LAURA DIAG W ?? CAD, 09/20/2019. ? INDICATIONS: ? Screening ? Calculator Name ? NCI Breast Cancer Risk Assessment Tool ?? 5 Year Breast Cancer Risk ? Not Reported. ?? Lifetime Breast Cancer Risk ? Not Reported. ?? Personal Breast Cancer ?No ?? Personal Ovarian Cancer ? No ?? Treatments ? None ?? Family Cancers ? None ? LOCATION: ? [facility] ? BREAST COMPOSITION: ? There are scattered areas of fibroglandular density. ? FINDINGS: ? RIGHT BREAST: ??No significant suspicious finding. ??Benign-appearing ?? calcifications are present. ? LEFT BREAST: ??No significant suspicious finding. ??Benign-appearing ?? calcifications are present. ??There is a similar focal asymmetry laterally. ? DIAGNOSTIC CATEGORY 2--BENIGN FINDING. NO CHANGE FROM COMPARISON. ? RECOMMENDATIONS: ? ROUTINE MAMMOGRAM AND CLINICAL EVALUATION IN 12 MONTHS. ? PLEASE NOTE: ??A NORMAL MAMMOGRAM DOES NOT EXCLUDE THE POSSIBILITY OF BREAST ?? CANCER. ??A CLINICALLY SUSPICIOUS PALPABLE LUMP SHOULD BE BIOPSIED. ? Dictated by: Bernardo Myles MD on 12/14/2024 at 11:40 ? Approved by: Bernardo Myles MD on 12/14/2024 at 11:47 ? Dictated By: ?Bernardo Myles M.D. ? Signed By: ?02/26/25 1148 ? DD/ 1147 ? TD/TT: ? Sanitation Superintendent: Procedure Note Radiology, Radiologist, MD - 12/14/2024 [place] [address] Mammography Report Signed Patient: CHLOE AGARWAL JMR#: [id number] : 1955cct:[id number] Age/Sex: 69 / FADM Date: 12/14/24 Loc: MAMMO Attending Dr: Antionette Yang Ordering Physician: Antionette Padgettults: Date of Service: 12/14/24Follow Up: Procedure(s): MM tomosynthesis screening BI Accession Number(s): [id number] cc: Vick Haskins M.D. Patient Name: CHLOE AGARWAL MR#: [id number] : 1955 Exam Date: 12/14/2024 Ordering Doctor: JESSICA Yang . RADIOLOGY REPORT PROCEDURE: MM TOMOSYNTHESIS SCREENING BI COMPARISON: MM TOMOSYNTHESIS SCREENING BI, 11/30/2023. MG MAMM NMGGKX5Y LAURA CAD, 10/22/2022. MG MAMM LAURA DIAG W CAD, 06/26/2021. MG MAMM LAURA DIAGW CAD, 09/20/2019. INDICATIONS: Screening Calculator Name NCI Breast Cancer Risk Assessment Tool 5 Year Breast Cancer Risk Not Reported. Lifetime Breast Cancer Risk Not Reported. Personal Breast Cancer No Personal Ovarian Cancer No Treatments None Family Cancers None LOCATION: [facility] BREAST COMPOSITION: There are scattered areas [...] M.D. Signed By:12/14/24 1148 DD/ 1147 TD/TT: Sanitation Superintendent: Authorizing ProviderResult TypeResult StatusAmy Trey PACLINISYNC IMAGINGFinal Result * Pap Smear (11/28/2024 12:00 AM EST)Specimen (Source)Anatomical Location / LateralityCollection Method / VolumeCollection TimeReceived TimeSwabCervical swab / Unknown Narrative Authorizing ProviderResult TypeResult StatusAmy Trey PALAB CYTOLOGY ORDERABLES Final ResultPerforming OrganizationAddressCity/State/ZIP CodePhone Number EXTERNAL LAB from Last 3 Months or Most Recently Relevant to Health Maintenance Insurance Care Teams Team MemberRelationshipSpecialtyStart DateEnd Vick Zelaya MD PCP - GeneralFamily Medicine05/21/23
--- OUTSIDE RECORDS SUMMARY | 2025-08-09 09:15 | XMS_ITS | Encounter Summary ---
Author Organization [facility] Address [address] [place] [address] Care Team Providers Care Hosiery Mater Name Role Phone Vick Zelaya MD Primary Care Provider [phone] Encounter Details DateTypeDepartmentCare Team (Latest Contact Info)Aslgjkdgyfb07/17/2025Bamboo flowsheet [facility] [address] [place] [address] [place] [address] Sofi Pyle, HARESH Social History Tobacco UseTypesPacks/DayYears UsedDateSmoking Tobacco: NeverSmokeless [...] as of this encounter Plan of Treatment DateTypeDepartmentCare Team (Latest Contact Info)Iuettqfnjbg99/24/2025 3:00 PM EDTTreatment [facility] [address] [place] [address] [place] [address] Gezo Dee, BEHAVIOR SPECIALIST 08/14/2025 8:30 AM EDTTreatment [facility] [address] [place] [address] [place] [address] Candida Velasco, BEHAVIOR SPECIALIST 08/17/2025 10:30 AM EDTTreatment [facility] [address] [place] [address] [place] [address] Gezo Dee, BEHAVIOR SPECIALIST 08/22/2025 8:30 AM ESTTreatment [facility] [address] [place] [address] [place] [address] Gezo Dee, BEHAVIOR SPECIALIST 08/24/2025 10:30 AM ESTTreatment [facility] [address] [place] [address] [place] [address] Gezo Dee, BEHAVIOR SPECIALIST 12/04/2025 10:00 AM ESTOffice Visit [facility] [address] [place] [phone] Antionette Yang PA [address] [place] [address] documented as of this encounter Visit Diagnoses Not on filedocumented in this encounter Care Teams Team MemberRelationshipSpecialtyStart DateEnd Date Vick Zelaya MD PCP - GeneralFamily Medicine05/21/23documented as of this encounter
--- OUTSIDE RECORDS SUMMARY | 2025-08-09 09:15 | XMS_ITS | Encounter Summary ---
Author Organization [facility] Address [address] [place] [address] Care Team Providers Care Tube Drawing Supervisor Name Role Phone Vick Zelaya MD Primary Care Provider [phone] Encounter Details DateTypeDepartmentCare Team (Latest Contact Info)Lecmtemjojs06/20/2025Bamboo flowsheet [facility] [address] [place] [address] Candida Velasco, ION Social History Tobacco UseTypesPacks/DayYears UsedDateSmoking Tobacco: NeverSmokeless [...] Plan of Treatment DateTypeDepartmentCare Team (Latest Contact Info)Atcuuhaaxge14/24/2025 3:00 PM EDTTreatment [facility] [address] [place] [address] [place] [address] Gezo Dee, PURCHASING BUYER 08/14/2025 8:30 AM EDTTreatment [facility] [address] [place] [address] [place] [address] Candida Velasco, PURCHASING BUYER 08/17/2025 10:30 AM EDTTreatment [facility] [address] [place] [address] [place] [address] Gezo Dee, PURCHASING BUYER 08/22/2025 8:30 AM ESTTreatment [facility] [address] [place] [address] [place] [address] Gezo Dee, PURCHASING BUYER 08/24/2025 10:30 AM ESTTreatment [facility] [address] [place] [address] [place] [address] Gezo Dee, PURCHASING BUYER 12/04/2025 10:00 AM ESTOffice Visit [facility] [address] [facility] [place] [address] Antionette Yang PA [address] [place] [address] documented as of this encounter Visit Diagnoses Not on filedocumented in this encounter Care Teams Team MemberRelationshipSpecialtyStart DateEnd Date Vick Zelaya MD PCP - GeneralFamily Medicine05/21/23documented as of this encounter
--- OUTSIDE RECORDS SUMMARY | 2025-08-09 09:15 | XMS_ITS | Clinical Summary ---
Author Organization [facility] Address [id number] [address] [place] [address] Care Team Providers Care Sawmill Supervisor Name Role Phone Unavailable Primary Care Provider Unavailabl e Social History Tobacco UseTypesPacks/DayYears UsedDateSmoking Tobacco: Never AssessedChildcare AnswerDate QysrivgtItctxqzgaHxqbemx77/12/2019EmploymentAnswerDate Recorded AslmoljzxhVdnfqza17/12/2019CommentsUnknownSex and Gender Information ValueDate RecordedSex Assigned at BirthNot on fileLegal XdpCvtwir49/06/2015 11:39 AM EDTGender IdentityNot on fileSexual OrientationNot on file Last Filed Vital Signs Vital SignReadingTime TakenCommentsBlood Zqhccokk855/8012 9:17 AM EST Pulse--Temperature--Respiratory Rate--Oxygen Saturation--Inhaled Oxygen Concentration--Ksuqcp82.2 kg (146 lb)09/22/2013 9:17 AM PZFCwprqy501.3 cm (4' 10 )05/05/2013 10:35 AM EDTBody Mass Index30.51005/05/2013 10:35 AM EDT Plan of Treatment Health MaintenanceDue DateLast DoneCommentsDepression Yicgambsv44/17/1969Tobacco Vozazaomm46/17/1969Adult BMI Iuyxsnibo97/17/1975DTaP,Tdap and Td Vaccines (1 - Tdap)1976Fall Risk Wtjwtprqh79/17/2022COVID-19 Vaccine (3 - 2024- season)/02/2021, 07/02/2021Influenza Rhlfkrb53 Zoster (Shingles) UynkzjcPimeddiht90/07/2021, 11/12/2020 Medical Devices Not on file Insurance
--- OUTSIDE RECORDS SUMMARY | 2025-08-09 09:15 | XMS_ITS | Encounter Summary ---
Author Organization [facility] Address [address] [place] [address] Care Team Providers Care Wood Planer Name Role Phone Vick Zelaya MD Primary Care Provider [phone] Encounter Details DateTypeDepartmentCare Team (Latest Contact Info)Hogipcbgdiq09/17/2025Plan of Care Documentation [facility] [address] [place] [address] Social History Tobacco UseTypesPacks/DayYears UsedDateSmoking Tobacco: NeverSmokeless [...] Plan of Treatment DateTypeDepartmentCare Team (Latest Contact Info)Amrfollezlq37/24/2025 3:00 PM EDTTreatment [facility] [address] [place] [address] GezoDee, BEAD FORMING MACHINE OPERATOR 08/14/2025 8:30 AM EDTTreatment [facility] [address] [place] [address] Candida Velasco, BEAD FORMING MACHINE OPERATOR 08/17/2025 10:30 AM EDTTreatment [facility] [address] [place] [address] GezoDee, BEAD FORMING MACHINE OPERATOR 08/22/2025 8:30 AM ESTTreatment [facility] [address] [place] [address] Gezo Dee, BEAD FORMING MACHINE OPERATOR 08/24/2025 10:30 AM ESTTreatment [facility] [address] [place] [address] GezoDee, BEAD FORMING MACHINE OPERATOR 12/04/2025 10:00 AM ESTOffice Visit [facility] [address] [facility] [place] [phone] Antionette Yang PA [address] [facility] [address] [place], [place] [phone] documented as of this encounter Visit Diagnoses Not on filedocumented in this encounter Care Teams Team MemberRelationshipSpecialtyStart DateEnd Date Vick Zelaya MD PCP - GeneralFamily Medicine05/21/23documented as of this encounter
--- OUTSIDE RECORDS SUMMARY | 2025-08-09 09:15 | XMS_ITS | Encounter Summary ---
Author Organization [facility] Address [address] [place] [address] Care Team Providers Care Industrial Health And Safety Professor Name Role Phone Vick Zelaya MD Primary Care Provider [phone] Encounter Details DateTypeDepartmentCare Team (Latest Contact Info)Bxugiszmbff84/20/2025Travel Social History Tobacco UseTypesPacks/DayYears UsedDateSmoking Tobacco: NeverSmokeless [...] Plan of Treatment DateTypeDepartmentCare Team (Latest Contact Info)Jumppgurteg04/24/2025 3:00 PM EDTTreatment [facility] [address] [place] [address] Dee Christine, CARAMEL CUTTER HAND 08/14/2025 8:30 AM EDTTreatment [facility] [address] [place] [address] Candida Velasco, CARAMEL CUTTER HAND 08/17/2025 10:30 AM EDTTreatment [facility] [address] [place] [address] Dee Christine, CARAMEL CUTTER HAND 08/22/2025 8:30 AM ESTTreatment [facility] [address] [place] [address] GeDee henry, CARAMEL CUTTER HAND 08/24/2025 10:30 AM ESTTreatment [facility] [address] [place] [address] Dee Christine, CARAMEL CUTTER HAND 12/04/2025 10:00 AM ESTOffice Visit [facility] [address] [place] [address] Antionette Yang PA [address] [facility] [place] [address] documented as of this encounter Visit Diagnoses Not on filedocumented in this encounter Care Teams Team MemberRelationshipSpecialtyStart DateEnd Date Vick Zelaya MD PCP - GeneralFamily Medicine05/21/23documented as of this encounter
--- OUTSIDE RECORDS SUMMARY | 2025-08-09 09:15 | XMS_ITS | Encounter Summary ---
Author Organization [facility] Address [address] [place] [address] Care Team Providers Care Cnc Maintenance Mechanic Name Role Phone Vick Zelaya MD Primary Care Provider [phone] Encounter Details DateTypeDepartmentCare Team (Latest Contact Info)Rdjtpqduwyd48/17/2025Travel Social History Tobacco UseTypesPacks/DayYears UsedDateSmoking Tobacco: NeverSmokeless [...] Plan of Treatment DateTypeDepartmentCare Team (Latest Contact Info)Iwmgjzkzcll19/24/2025 3:00 PM EDTTreatment [facility] [address] [place] [address] Dee Christine, CASTER HELPER 08/14/2025 8:30 AM EDTTreatment [facility] [address] [place] [address] Candida Velasco, CASTER HELPER 08/17/2025 10:30 AM EDTTreatment [facility] [address] [place] [address] Dee Christine, CASTER HELPER 08/22/2025 8:30 AM ESTTreatment [facility] [address] [place] [address] GeDee henry, CASTER HELPER 08/24/2025 10:30 AM ESTTreatment [facility] [address] [place] [address] Dee Christine, CASTER HELPER 12/04/2025 10:00 AM ESTOffice Visit [facility] [address] [place] [address] Antionette Yang PA [address] [facility] [place] [address] documented as of this encounter Visit Diagnoses Not on filedocumented in this encounter Care Teams Team MemberRelationshipSpecialtyStart DateEnd Date Vick Zelaya MD PCP - GeneralFamily Medicine05/21/23documented as of this encounter
--- OUTSIDE RECORDS SUMMARY | 2025-08-09 09:16 | XMS_ITS | CCD ---
Author Organization [facility] Care Team Providers Care Public Stenographer Name Role Phone Adryan Yoon Unavailable Unavailable [...] Basem G. Admitting Unavailable Husain, Basem G. Attending Unavailable Landon DOUGLAS Referring Unavailable Anna PA-C Vicky Admitting Unavailabl e Castillo, Vicky Attending Unavailable Hoy, Vick Referring Unavailable Castillo, PA-C Vicky Admitting Unavailabl e Castillo, Vicky Attending Unavailable Vick Mcghee Referring Unavailable Vick Mcghee MD Primary Care Provider [phone] NON STAFF Attending Provider Unavailable Claudio Monroe Attending Unavailable Claudio Monroe Admitting Unavailable Darshan Laughlin Attending Unavailable Vick Mcghee Referring Unavailable Claudio Monroe Attending Unavailable Claudio Monroe Admitting Unavailable NONE, XXXX Referring Unavailable Lokesh Mcqueen Attending Unavailable Lokesh Mcqueen Admitting Unavailable SAM KAISER Attending Unavailable WERSAM MCKINNON Admitting Unavailable WERVEY SAM Referring Unavailable OJUKWU, Mbanefo Attending Unavailable OJUKWU, Mbanefo Admitting Unavailable [facility] Consulting Unavailable Vick Mcghee MD Primary Care Provider [phone] Boo Godoy MD Attending Provider NON STAFF Attending Unavailable Vick Mcghee Primary Care Unavailable NON STAFF Admitting Unavailable Boo Godoy Admitting Unavailable Boo Godoy Attending Unavailable Vick Mcghee Primary Care Unavailable Vick Mcghee MD Primary Care Provider [phone] MD Radu Kurtz Attending Unavailable Baldomero Hurtado Admitting Unavailable NONE, XXXX Referring Unavailable Lokesh Mcqueen Referring Unavailable Lokesh Mcqueen Admitting Unavailable Lokesh Mcqueen Attending Unavailable Baldomero Hurtado Consulting Unavailable Jayden Santos Admitting Unavailable Jayden Santos Attending Unavailable Bryant, Baldomero Consulting Unavailable Bryant, Baldomero Consulting Unavailable [facility] XXXX Consulting Unavailable Vick Mcghee MD Primary Care Provider YODIT SAL Attending Unavailable VICK MCGHEE Primary Care Unavailable ANTIONETTE YANG Attending Unavailable PYLE, SOFI Attending Unavailable SOM, KATH Billingsley Referring Unavailable WILLEM, KENNY Attending Unavailable SOM, KATH Billingsley Referring Unavailable WILLEM, KENNY Attending Unavailable SOM, KATH Billingsley Referring Unavailable WILLEM, KENNY Attending Unavailable SOM, KATH Billingsley Referring Unavailable WILLEM, KENNY Attending Unavailable SMO, KATH Billingsley Referring Unavailable WILLEM, KENNY Attending Unavailable SOM, KATH R Referring Unavailable PYLE, SOFI Attending Unavailable SOM, KATH Billingsley Referring Unavailable PYLE, SOFI Attending Unavailable SOM, KATH Billingsley Referring Unavailable YARELIS KING Attending Unavailable SOM, KATH Billingsley Referring Unavailable PYLE, SOFI Attending Unavailable SOM, KATH Billingsley Referring Unavailable PYLE, SOFI Attending Unavailable SOM, KATH Billingsley Referring Unavailable CHRISTINE, YARELIS Attending Unavailable SOM, KATH Billingsley Referring Unavailable SYDNIE VILLALOBOS Attending Unavailable WILLEM, KENNY Attending Unavailable SOM, KATH Billingsley Referring Unavailable WILLEM, KENNY Attending Unavailable SOM, KATH Billingsley Referring Unavailable WILLEM, KENNY Attending Unavailable SOM, KATH Billingsley Referring Unavailable WILLEM, KENNY Attending Unavailable SOM, KATH Billingsley Referring Unavailable PYLE, SOFI Attending Unavailable SOM, KATH Billingsley Referring Unavailable CARMINA SHEFFIELD Attending Unavailable SOM, KATH Billingsley Referring Unavailable Allergies Allergy ClassificationReported Allergen(s)Allergy TypeDate of OnsetReaction(s) Facility (1 source)Sulfonamide; Translations: [sulfonamide]Propensity to adverse reactions to drug (disorder)[facility] (20 sources)Sulfonamides (Antibiotic); Translations: [sulfa drugs]Drug allergy [facility] (20 sources)Lisinopril; Translations: [lisinopril]Drug Cpqbggo72-63-9771Osjiohxl - function (qualifier value), [facility] (1 source)Sulfonamides (Antibiotic)Drug allergy (disorder)[facility] Repository (20 sources)gabapentin; Translations: [gabapentin]Drug Rmnqauv23-16-1852Arervxam (finding), Headache, [facility]iac arrhythmia/[facility] ([facility] sources)LisinoprilPropensity to adverse zkoipncql26-76-9692[facility] (20 sources)Sulfonamides (Antibiotic)Drug Amhjpon02-60-2535ExffxcgDMWV [facility] (14 sources)Baclofen; Translations: [baclofen]Drug Xzwcwtj01-76-2200Pysi pain (finding), Menopausal flushing (finding), Bilateral weakness of upper limbs, Weakness of bilateral lower limb, Numbness of limbs (finding), Nausea/vomiting [facility] (20 sources)DULoxetine; Translations: [duloxetine]Drug Pccqmde54-92-8837Dgbycwdr (disorder), OtherSt[facility] (20 sources)BaclofenDrug Uatxqlj08-99-5954KD[facility] (1 source)Sulfonamides (Antibiotic); Translations: [SULFA (SULFONAMIDE ANTIBIOTICS)]Propensity to adverse reactions to drug (disorder)27-20-4130[facility] Medications Current Medications MedicationDrug Class(es)DatesSig (Normalized)Sig (Original)alendronic acid 70 mg oral tablet (20 sources)BisphosphonateStart: 11-25-2023 End: 11-68-5854ycsm 1 tablet by mouth in the morningalendronate (Fosamax) 70 MG tablet Indications: Other osteoporosis, unspecified pathological fracture presence Take 1 tablet (70 mg) by mouth every 7 (seven) days Take in the morning with a full glass of water, on an empty stomach, and do not take anything else by mouth or lie down for the next 30 min. 4 tablet 6 11/25/2023 ActiveStart: 97-60-7884jsoo 1 tablet by mouth every weekalendronate 70 mg Tab TAKE 1 TABLET BY MOUTH 30 MINUTES BEFORE first food once a week, Prophylaxis Start Date: 02/23/23 Status: OrderedamLODIPine 5 mg oral tablet (1 source)Dihydropyridine Calcium Channel BlockerStart: 30-20-3577wmdp 1 tablet by mouth once dailyamLODIPine 5 mg Tab 5 mg = 1 tab(s), Oral, Daily, # 30 tab(s), Refills(s) 2, Pharmacy: [facility], 152, cm, 10/05/24 11:36:00 EST, Height/Length Dosing, 75.8, kg, 10/05/24 11:40:00 EST, Weight Dosing Start Date: 10/05/24 Status: Orderedaspirin 81 mg delayed release oral tablet (2 sources)Platelet Aggregation Inhibitor, Nonsteroidal Anti-inflammatory Drug Start: 43-58-6776cmha 1 tablet by mouth once dailyaspirin 81 mg EC tablet Indications: Chest pain, unspecified type Take 1 tablet (81 mg) by mouth once daily. 90 tablet 3 05/02/2025 Active End: 50-50-0129ltrv 1 tablet by mouth once dailyaspirin 325 mg tablet Take 1 tablet (325 mg) by mouth once daily. 05/02/2025 Discontinued (Dose adjustment) cephalexin 500 mg oral capsule (1 source)Cephalosporin AntibacterialStart: 05-08-2024 End: 08-55-8967exne 1 capsule by mouth every twelve hoursKeflex 500 mg Cap 500 mg = 1 cap(s), Oral, q12hr, X 5 day(s), # 10 cap(s), Refills(s) 0, Pharmacy: [facility], 152, cm, 05/08/24 7:24:00 EDT, Height/Length Dosing, 77.2, kg, 05/08/24 7:33:00 EDT, Weight Dosing Start Date: 05/08/24 Stop Date: 05/13/24 Status: OrderedcloNIDine hydrochloride 0.1 mg oral tablet (2 sources)Central alpha-2 Adrenergic AgonistStart: 64-29-3256hsuo 1 tablet by mouth twice dailycloNIDine 0.1 mg tab 0.1 mg = 1 tab(s), Oral, BID, # 60 tab(s), Refills(s) 5, Pharmacy: [facility], 152, cm, 10/05/24 11:36:00 EST, Height/Length Dosing, 75.8, kg, 10/05/24 11:40:00 EST, Weight Dosing Start Date: 11/03/24 Status: Ordered Quantity: 60.0 Unit: tab(s) Repeat number: 6 gabapentin 300 mg oral capsule (8 sources)Anti-epileptic AgentStart: 05-04-2023 End: 22-70-4465xdoaytkgei 300 mg Cap 300 mg = 1 cap(s), Oral, BID, start with once a day for a week. If doing ok can increase to BID, # 60 cap(s), Refills(s) 0, Pharmacy: [facility], 152, cm, 05/04/23 8:55:00 EDT, Height/Length Dosing, 72.6, kg, 05/04/23 8:55:00 EDT, Weight Dosing Start Date: 05/04/23 Status: OrderedhydroCHLOROthiazide 12.5 mg oral capsule (20 sources)Thiazide DiureticStart: 46-36-8759tbfv 1 capsule by mouth in the morninghydroCHLOROthiazide (Microzide) 12.5 MG capsule Take 12.5 mg by mouth in the morning. 11/17/2023 ActivehydrOXYzine pamoate 25 mg oral capsule (2 sources)AntihistamineStart: 24-22-8517uqpt 1 capsule by mouth four times daily as needed for anxietyVistaril 25 mg Cap 25 mg = 1 cap(s), Oral, QID, PRN for anxiety, # 40 cap(s), Refills(s) 0, Pharmacy: [facility], 75.8, cm, 11/15/24 13:21:00 EST, Height/Length Dosing, 78.5, kg, 11/15/24 13:21:00 EST, Weight Dosing Start Date: 11/16/24 Status: Ordered Quantity: 40.0 Unit: cap(s) Repeat number: 1linaclotide 0.072 mg oral capsule (3 sources)Guanylate Cyclase-C AgonistStart: 70-79-0629pmtn 1 capsule by mouth once dailyLinzess 72 mcg oral capsule 72 mcg = 1 cap(s), Oral, Daily, Refills(s) 0 Start Date: 03/19/21 Status:Orderedlisinopril 20 mg oral tablet (3 sources)Angiotensin Converting Enzyme InhibitorStart: 13-02-6606nlcv 1 tablet by mouth once dailylisinopril 20 mg Tab 20 mg = 1 tab(s), Oral, Daily, # 30 tab(s), Refills(s) 0 Start Date: 09/01/21 Status: OrderedLORazepam 1 mg oral tablet (1 source)BenzodiazepineStart: 05-08-2024 End: 89-13-1825baih 1 tablet by mouth three times daily as needed for dizziness Ativan 1 mg Tab 1 mg = 1 tab(s), Oral, TID, PRN Other (see comment), dizziness, X 3 day(s), # 9 tab(s), Refills(s) 0, Pharmacy: [facility], 152, cm, 05/08/24 7:24:00 EDT, Height/Length Dosing, 77.2, kg, 05/08/24 7:33:00 EDT, Weight Dosing Start Date: 05/08/24 Stop Date: 05/11/24 Status: Orderedlosartan potassium 100 mg oral tablet (20 sources)Angiotensin 2 Receptor BlockerStart: 17-08-4602teax 1 tablet by mouth at bedtimelosartan 100 mg Tab 100 mg = 1 tab(s), Oral, Bedtime, # 90 tab(s), Refills(s) 3, Pharmacy: [facility], 75.8, cm, 11/15/24 13:21:00 EST, Height/Length Dosing, 78.5, kg, 11/15/24 13:21:00 EST, Weight Dosing Start Date: 01/03/25 Status: Ordered Quantity: 90.0 Unit: tab(s) Repeat number:4 Indication: Essential (primary) hypertensionStart: 72-91-6718qhgi 1 tablet by mouth at bedtimelosartan 100 mg Tab 100 mg = 1 tab(s), Oral, Bedtime, # 90 tab(s), Refills(s) 3, Pharmacy: [facility], 152, cm, 07/13/24 15:04:00 EDT, Height/Length Dosing, 75, kg, 07/13/24 15:04:00 EDT, Weight Dosing Start Date: 07/13/24 Status: OrderedStart: 88-95-7448wyfp 1 tablet by mouth at bedtimelosartan 100 mg Tab 100 mg = 1 tab(s), Oral, Bedtime, # 90 tab(s), Refills(s) 3, Pharmacy: [facility], 152, cm, 12/18/23 13:31:00 EST, Height/Length Dosing, 79.2, kg, 12/18/23 13:37:00 EST, Weight Dosing Start Date: 12/18/23 Status: OrderedStart: 11-34-2580wxte 1 tablet by mouth at bedtimelosartan 100 mg Tab 100 mg = 1 tab(s), Oral, Bedtime, # 90 tab(s), Refills(s) 1, Pharmacy: [facility], 152, cm, 07/14/23 9:26:00 EDT, Height/Length Dosing, 76.9, kg, 07/14/23 9:26:00 EDT, Weight Dosing Start Date: 07/14/23 Status: OrderedStart: 06-30-2023 End: 81-30-6960quvs 1 tablet by mouth twice dailylosartan 50 mg Tab 50 mg = 1 tab(s), Oral, BID, X 30 day(s), # 60 tab(s), Refills(s) 0, Pharmacy: [facility], 152, cm, 06/30/23 15:07:00 EDT, Height/Length Dosing, 77.5, kg, 06/30/23 15:07:00 EDT, Weight Dosing Start Date: 06/30/23 Stop Date: 07/30/23 Status: OrderedStart: 06-05-2023 End: 47-12-7621xlsg 1 tablet by mouth once dailylosartan 50 mg Tab 50 mg = 1 tab(s), Oral, Daily, X 30 day(s), # 30 tab(s), Refills(s) 0, Pharmacy:[facility], 152.4, cm, 06/05/23 8:54:00 EDT, Height/Length Dosing, 73, kg, :54:00 EDT, Weight Dosing Start Date: 06/05/23 Stop Date: 07/05/23 Status: OrderedStart: 11-05-2022 End: 33-95-7143pmsi 1 tablet by mouth once dailyCozaar 25 mg Tab 25 mg = 1 tab(s), Oral, Daily, stopping Lisinopril Starting Cozaar, X 90 day(s), #90 tab(s), Refills(s) 3, Pharmacy: [facility], 152, cm, 11/05/22 11:35:00 EST, Height/Length Dosing, 76, kg, 11/05/22 11:35:00 EST, Weight Dosing Start Date: 11/05/22 Stop Date: 10/31/23 Status: Orderedlosartan (Cozaar) 25 MG tablet Take 100 mg by mouth. Activemagnesium oxide 400 mg oral tablet (7 sources)Start: 05-96-4638xanb 1 tablet by mouth once dailymagnesium oxide 400 mg Tab 400 mg = 1 tab(s), Oral, Daily, Refills(s) 0 Start Date: 10/05/24 Status: OrderedStart: 11-25-2023 End: 12-39-7768fvhk 1 tablet by mouth in the morningmagnesium oxide (Mag-Ox) 400 MG tablet Indications: Restless legs Take 1 tablet (400 mg) by mouth in the morning. 30 tablet 6 11/25/2023 06/22/2024 Activemeclizine hydrochloride 25 mg oral tablet (1 source)AntiemeticStart: 87-83-4506mwog 1 tablet by mouth three times daily as needed for dizzinessmeclizine 25 mg Tab 25 mg = 1 tab(s), Oral, TID, PRN for dizziness, # 30 tab(s), Refills(s) 0, Pharmacy: [facility], 152, cm, 05/08/24 7:24:00 EDT, Height/Length Dosing, 77.2, kg, 05/08/24 7:33:00 EDT, Weight Dosing Start Date: 05/08/24 Status: Orderedmeloxicam 15 mg oral tablet (2 sources)Nonsteroidal Anti-inflammatory DrugStart: 90-18-4667hppo 1 tablet by mouth once dailymeloxicam 15 mg Tab 15 mg = 1 tab(s), Oral, Daily, # 30 tab(s), Refills(s) 0 Start Date: 12/18/23 Status: OrderedmethIMAzole 5 mg oral tablet (1 source)Thyroid Hormone Synthesis InhibitorStart: 36-61-0376woju 1 tablet by mouth every twelve hoursmethIMAzole (Tapazole) 5 mg tablet Take 1 tablet (5 mg) by mouth every 12 hours. 04/25/2025 ActivemethylPREDNISolone 4 mg oral tablet (1 source)CorticosteroidStart: 09-22-2023 End: 08-02-1321Oiodep 4 mg Tab = 1 packet(s), Oral, As Directed, as directed on package labeling, X 6 day(s), # 21tab(s), Refills(s) 0, Pharmacy: [facility], 152, cm, 09/22/23 11:39:00 EST, Height/Length Dosing, 70.5, kg, 09/22/23 11:39:00 EST, Weight Dosing Start Date: 09/22/23 Stop Date: 09/28/23 Status: Irtuldp22 hr metoprolol succinate 50 mg extended release oral tablet (20 sources)beta-Adrenergic BlockerStart: 96-40-7020adhe 2 tablets by mouth once dailymetoprolol succinate 50 mg ER Tab 100 mg = 2 tab(s), Oral, Daily, # 30 tab(s), Refills(s) 0, Pharmacy: [facility], 75.8, cm, 11/15/24 13:21:00 EST, Height/Length Dosing, 78.5, kg, 11/15/24 13:21:00 EST, Weight Dosing Start Date: 11/16/24 Status: Ordered Quantity: 30.0 Unit: tab(s) Repeat number: 1Start: 39-39-6271huck 1 tablet by mouth once dailymetoprolol succinate 50 mg ER Tab 50 mg = 1 tab(s), Oral, Daily, # 30 tab(s), Refills(s) 0, Pharmacy: [facility], 75.8, cm, 11/15/24 13:21:00 EST, Height/Length Dosing, 78.5, kg, 11/15/24 13:21:00 EST, Weight Dosing Start Date: 11/16/24 Status: Ordered Quantity: 30.0 Unit: tab(s) Repeat number: 1Start: 11-17-2023 take 2 tablets by mouth once dailymetoprolol succinate 50 mg ER Tab 100 mg = 2 tab(s), Oral, Daily, # 180 tab(s), Refills(s) 3, Pharmacy: [facility], 152, cm, 07/13/24 15:04:00 EDT, Height/Length Dosing, 75, kg, 07/13/24 15:04:00 EDT, Weight Dosing Start Date: 07/13/24 Status: OrderedStart: 06-30-2023 End: 09-12-6984axcd 1 tablet by mouth once dailymetoprolol 50 mg ER Tab 50 mg = 1 tab(s), Oral, Daily, # 90 tab(s), Refills(s) 1, Pharmacy: [facility], 152, cm, 07/14/23 9:26:00 EDT, Height/Length Dosing, 76.9, kg, 07/14/23 9:26:00EDT, Weight Dosing Start Date: 07/14/23 Status: OrderedStart: 11-14-2022 take 1 tablet by mouth once dailymetoprolol 25 mg ER Tab 25 mg = 1 tab(s), Oral, Daily, # 90 tab(s), Refills(s) 3, Pharmacy: [facility], 152, cm, 11/05/22 11:35:00 EST, Height/Length Dosing, 76, kg, 11/05/22 11:35:00EST, Weight Dosing Start Date: 11/14/22 Status: OrderedStart: 10-08-2021 End: 23-66-8000xctb 1 tablet by mouth once dailyToprol XL 25 mg Tab-ER 25 mg = 1 tab(s), Oral, Daily, X 90 day(s), # 90 tab(s), Refills(s) 3, Pharmacy: [facility], 152, cm, 10/08/21 13:49:00 EST, Height/Length Dosing, 73, kg, 10/08/21 13:49:00 EST, Weight Dosing Start Date: 10/08/21 Stop Date: 10/03/22 Status: Orderedtake 1 tablet by mouth every twenty-four hoursmetoprolol succinate XL (Toprol-XL) 25 MG 24 hr tablet Take 50 mg by mouth. Do not crush or chew. ActiveMulti Vitamin+ (8 sources)Start: 76-28-5147Shuan Vitamin+ Oral, Daily, Refill(s) 0 Start Date: 09/22/23 Status: OrderedStart: 71-99-7090Enqgz Vitamin+ Refill(s) 0 Start Date: 09/22/23 Status: Orderednaproxen sodium 220 mg oral capsule (9 sources)Nonsteroidal Anti-inflammatory DrugStart: 91-05-6147zhut 2 capsules by mouth every eight hours as needed for painAleve 220 mg oral capsule 440 mg = 2 cap(s), Oral, q8hr, PRN as needed for pain, Refills(s) 0 StartDate: 11/15/24 Status: Ordered Repeat number: 1Start: 13-98-8781Gzwli Refills(s) 0 Start Date: 09/22/23 Status: Orderedpantoprazole 40 mg delayed release oral tablet (20 sources)Proton Pump InhibitorStart: 09-84-0542xxuh 1 tablet by mouth twice dailyProtonix 40 mg Tab-DR 40 mg = 1 tab(s), Oral, BID, # 120 tab(s), Refills(s) 0, Pharmacy: [facility], 152.4, cm, 04/01/21 7:20:00 EDT, Height/Length Dosing, 85.5, kg, 04/01/21 7:20:00 EDT, Weight Dosing Start Date: 04/16/21 Status: Ordered Quantity: 120.0 Unit: tab(s) Repeat number: 1Indication: Gastro-esophageal reflux disease without esophagitisStart: 31-22-5331nxlx 40 mg by mouth once dailypantoprazole 40 mg, Oral, Daily, Refills(s) 0 Start Date: 09/18/19 Status: Orderedpregabalin 25 mg oral capsule (6 sources)Start: 65-50-2040siobmrtvqj 25 mg Cap 25 mg = 1 cap(s), Oral, BID, start with once a day for 3-5 days. If doing wellcan go to BID, # 60 cap(s), Refills(s) 0, Pharmacy: [facility], 152, cm, 10/26/23 13:07:00 EST, Height/Length Dosing, 70.5, kg, 10/26/23 13:07:00 EST, Weight Dosing Start Date: 10/26/23Status: OrderedrOPINIRole 0.5 mg oral tablet (20 sources)Nonergot Dopamine AgonistStart: 79-39-6189pwwxsgqshb 0.5 mg, Oral, Refills(s) 0 Start Date: 09/22/23 Status: Orderedsucralfate 1000 mg oral tablet (20 sources)Aluminum ComplexStart: 94-17-6466vxgh 1 tablet by mouth four times dailyCarafate 1 gram Tab 1 gm = 1 tab(s), Oral, QID, # 120 tab(s), Refills(s) 3, Pharmacy: [facility], 152, cm, 04/03/23 9:20:00 EDT, Height/Length Dosing, 80, kg, 04/03/23 9:20:00 EDT, Weight Dosing Start Date: 04/03/23 Status: OrderedStart: 57-97-9812abqbcgjbcs oral susp Refills(s) 0 Start Date: 09/01/21 Status: OrderedStart: 67-71-7663Wolaafyf 1 g/10 mL Susp-Oral 100 mg/ml, Oral, q4hr, Refills(s) 0 Start Date: 03/07/21 Status: Orderedtake 1 g by mouth every six hourssucralfate (Carafate) 1 GM/10ML suspension Take 1 g by mouth every 6 (six) hours. ActivetiZANidine 2 mg oral tablet (2 sources)Central alpha-2 Adrenergic AgonistStart: 64-44-2561hslw 1 tablet by mouth twice dailytiZANidine 2 mg Tab 2 mg = 1 tab(s), Oral, BID, Refills(s) 0 Start Date: 12/18/23 Status: OrderedZofran ODT 4 mg Tab-Dis (1 source)Start: 31-52-9704yxdm 1 tablet by mouth every eight hoursZofran ODT 4 mg Tab-Dis 4 mg = 1 tab(s), Oral, q8hr, # 12 tab(s), Refills(s) 0, Pharmacy: [facility], 152, cm, 05/08/24 7:24:00 EDT, Height/Length Dosing, 77.2, kg, 05/08/24 7:33:00 EDT, Weight Dosing Start Date: 05/08/24 Status: Ordered Completed/Discontinued Medications MedicationDrug Class(es)DatesSig (Normalized)Sig (Original)Adult Blood Pressure Monitor with Large Bicep Cuff (20 sources)Start: 83-37-6302Sfeet Blood Pressure Monitor with Large Bicep Cuff Adult Blood Pressure Monitor with Large Bicep Cuff, See Instructions, 1 EA, 0, Check BP Daily Dx I10, Supply Start Date: 04/28/23 Status: Ordered Quantity: 1.0 Unit: EA Repeat number: 1 Indication: Essential (primary) hypertensionStart: 15-76-7305Duktl Blood Pressure Monitor with Large Bicep Cuff Adult Blood Pressure Monitor with Large Bicep Cuff, See Instructions, 1 EA, 0, Check BP Daily Dx I10, Supply Start Date: 04/28/23 Status: Orderedbaclofen 5 mg oral tablet (3 sources)gamma-Aminobutyric Acid-ergic AgonistStart: 07-06-2024 End: 66-85-1371ldwg 1 tablet by mouth three times daily as needed for pain baclofen 5 mg oral tablet 5 mg = 1 tab(s), Oral, TID, take one tab three times a day as needed for pain/spasms, X 30 day(s), # 90 tab(s), Refills(s) 0, Pharmacy: [facility], 152, cm, 07/06/24 15:10:00 EDT, Height/Length Dosing, 74, kg, 07/06/24 15:10:00 EDT, Weight Dosing Start Date: 07/06/24 Stop Date: 08/05/24 Status: OrderedDULoxetine 30 mg delayed release oral capsule (3 sources)Serotonin and Norepinephrine Reuptake InhibitorStart: 07-06-2024 End: 21-40-1724jkue 2 tablets by mouth once daily at mealtimeduloxetine 30 mg oral delayed release capsule 60 mg = 2 cap(s), Oral, Daily, take one tab in am for1 week with food. Then take 2 tabs in am with food ongoing., X 30 day(s), # 60 cap(s), Refills(s) 0, Pharmacy: [facility], 152, cm, 07/06/24 15:10:00 EDT, Height/Length Dosing, 74, kg, 07/06/24 15:10:00 EDT, Weight Dosing Start Date: 07/06/24 Stop Date: 08/05/24 Status: Ordered Problems Active Problems Problem ClassificationProblemDateDocumented DateEpisodic/ChronicAbdominal hernia (2 sources)Diaphragmatic hernia; Translations: [Diaphragmatic hernia without obstruction or gangrene]Onset: 00-93-2734OisixypwXkkbrwwyt pain (20 sources)Epigastric pain; Translations: [Epigastric pain]Onset: 02-09-2023 EpisodicAcquired foot deformities (20 sources)Hallux valgus AND bunion; Translations: [Hallux valgus (acquired), right foot]Onset: 218860-53-2781LashyaiTmibkgmx foot deformities (2 sources)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; Translations: [Other acquired deformities of right foot]92-10-7487VxujsnziKlzaqzpv foot deformities (2 sources)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; Translations: [Other acquired deformities of leftfoot]43-66-8354LxmwskkzWtzwudygcfqo and other appendiceal conditions (20 sources)Xettdaggcgwu65-69-6805FjcqmwkeBvelfmr tract disease (1 source)Calculus of gallbladder without cholecystitis without obstruction; Translations: [CALCU GB W/O CHOLECYST W/O OBST]Onset: 40-76-5678EjeoqliqAlqckya dysrhythmias (4 sources)Ventricular arrhythmia; Translations: [Ventricular premature depolarization]Onset: [id number]h associated with dizziness or vertigo (20 sources)Vertigo; Translations: [Dizziness and giddiness]Onset: 06-05-2023 98-41-8986DjokynxiKqwblfdgnbwlij and diverticulitis (20 sources)Diverticula of intestine; Translations: [Diverticulosis of large intestine without perforation or abscess without bleeding]Onset: 04-03-2023 ChronicEsophageal disorders (20 sources)Gastroesophageal reflux disease; Translations: [Gastroesophageal reflux disease without esophagitis]Onset: 265684-62-6109DyihxvgJrjaruduo hypertension (20 sources)Essential hypertension; Translations: [Essential (primary) hypertension]Onset: 37-31-1994VelwenlTzmds and electrolyte disorders (1 source)Hypokalemia; Translations: [Hypokalemia]Onset: 17-78-5683Jupxpcjw Gastritis and duodenitis (20 sources)Orfzagyfm76-75-9632ZtatzgfgNuwxpsnhdhmrk and screening for infectious disease (2 sources)Encounter for screening for human papillomavirus (HPV); Translations: [Raised antibody titer]Onset: 74-24-3939CunkjslpBtttoj and vomiting (20 sources)Xhfvghbvktrzj69-86-4766SytgiyubFvaakekrqob chest pain (20 sources)Chest pain; Translations: [Chest pain, unspecified]Onset: 02-20-2023 EpisodicOsteoarthritis (20 sources)Osteoarthritis of right knee joint; Translations: [Arthritis of left midtarsal joint]36-87-2094YwdgvoiOwomoolhinhy (20 sources)Osteoporosis; Translations: [Age-related osteoporosis without current pathological fracture]Onset: 819228-78-2146NnfosahFoelu connective tissue disease (1 source)Spasm; Translations: [Cramp and spasm]Onset: 98-51-1271BqvytpogTsziz connective tissue disease (20 sources)H/O: rrcdvmfbqxhoqx24-09-0936ByaufkvmVbtlk connective tissue disease (16 sources)Koogmfokuf52-44-4586SxagbfghOlbpd connective tissue disease (4 sources)Deformity of lower limb; Translations: [Contracture of muscle, right lower leg]48-05-2410PdmnvobtIbkpz connective tissue disease (2 sources)Pain in both feet; Translations: [Pain in right foot]08-11-2024 EpisodicOther connective tissue disease (2 sources)Cramp in foot; Translations: [Cramp and spasm]74-88-0692EwwbrwckSjcpz connective tissue disease (2 sources)Bilateral cramp of muscle of lower limbs; Translations: [Cramp and spasm]46-03-5852TbmpvmfkBrdos connective tissue disease (2 sources)Trochanteric bursitis of right hip; Translations: [Trochanteric bursitis, right hip]51-86-1955TutgihrpLpspm gastrointestinal disorders (1 source)Esophageal dysphagia; Translations: [Dysphagia, pharyngoesophageal phase]Onset: 70-33-8317SlcxjtdaMzjaz gastrointestinal disorders (20 sources)Dodfjrgze33-04-0945CggpokufLwjst hereditary and degenerative nervous system conditions (2 sources)Restless legs; Translations: [Restless legs syndrome]11-25-2023 ChronicOther lower respiratory disease (20 sources)Yskkn97-08-8137VumnksrvCfuxb nutritional; endocrine; and metabolic disorders (20 sources)Body mass index 30+ - hwqxmin20-29-4485NhgkmsuUgknl nutritional; endocrine; and metabolic disorders (2 sources)Overweight in adulthood with body mass index of 25 or more but less than 30; Translations: [Body mass index (BMI) 27.0-27.9, adult]Onset: 05-02-2025 72-55-8621BlmzsjzdWrkbi nutritional; endocrine; and metabolic disorders (2 sources)Body mass index (BMI) 27.0-27.9, adult; Translations: [Body mass index (BMI) 27.0-27.9, adult]Onset: 04-47-0259CtwlslyfUifto screening for suspected conditions (not mental disorders or infectious disease) (15 sources)Screening for malignant neoplasm of colon done; Translations: [Encounter for screening for malignant neoplasm of colon]Onset: 09-24-2022 EpisodicOther upper respiratory disease (20 sources)Nasal sinus bhyheiq98-11-7071NkhwlykdRoysfcmd codes; unclassified (1 source)Obstructive sleep apnea syndrome; Translations: [Obstructive sleep apnea (adult) (pediatric)]Onset: 76-34-4381HgnlgpzPvhbaffm codes; unclassified (1 source)Pain, unspecified; Translations: [Pain, unspecified]Onset: 08-11-2024 EpisodicResidual codes; unclassified (2 sources)Never smoked tobacco; Translations: [Other specified health status] Onset: 777928-63-6028LpihxqytMghevtqh codes; unclassified (2 sources)Other specified health status; Translations: [Other specified health status]Onset: 36-70-6018WpqwqrrfBmttsbbququ; intervertebral disc disorders; other back problems (16 sources)Lumbar spondylosis with myelopathy; Translations: [Other spondylosis with myelopathy, lumbar region]73-24-0275SehzbrfLpjstgm disorders (2 sources)Hyperthyroidism; Translations: [Thyrotoxicosis, unspecified without thyrotoxic crisis or storm]Onset: 699593-49-7632RolvsvrYyyjmmspjsdr (20 sources)Patient encounter fegdug23-21-6496Mvvqnfhfmbcu (2 sources)CONTACT W/AND (SUSP) EXPOS COVID-19; Translations: [CONTACT W/AND (SUSP) EXPOS COVID-19]Onset: 26-91-6705Tteivwe tract infections (1 source)Urinary tract infectious disease; Translations: [Urinary tract infection, site not specified]Onset: 48-86-2746CoahbxxtXpkkc infection (1 source)COVID-19; Translations: [COVID-19]Onset: 11-10-2022 Past or Other Problems Problem ClassificationProblemDateDocumented DateEpisodic/ChronicAcute bronchitis (1 source)Acute bronchitis, unspecified; Translations: [ACUTE BRONCHITIS UNSPECIFIED]Onset: 01-99-5454MenuwbsbHbodenbt codes; unclassified (1 source)Asymptomatic menopausal state; Translations: [ASYMPTOMATIC MENOPAUSAL STATE]Onset: 23-56-1884YvkpcnujUcbjowknxpdb (1 source)CONTACT W/AND (SUSP) EXPOS COVID-19; Translations: [CONTACT W/AND (SUSP) EXPOS COVID-19]Onset: 95-64-6464Vdjzhaoexfqy (1 source)Onset: Results Test NameValueInterpretationReference RangeFacilityECG 12 Leadon 05-02-2025 Normal sinus rhythm with PVCs. QTc intervals [facility] Work Phone: Heart and Vascular Office/Clinic Noteon 04-03-2025 Heart and Vascular Office/Clinic NoteHeart and Vascular Office/Clinic Note Chief Complaint inpatient F/U Chest pain History of Present Illness Patient is a very pleasant educated 69-year-old female who states she has had increased pounding ofher heart with the metoprolol 50 mg 2 of them in the morning and losartan 100 mg once in the evening. Her blood pressure is a little on the high side today I would have asked her to keep a blood pressure log with blood pressure checks 3 times a week and see what that is happening and go from there.Recent SPECT cardiac examination was unremarkable all questions [...] Recorded SARS-CoV-2 (COVID-19) mRNA BNT-162b2 vax 07/02/2021 RecordedNormalFisher Buffalo Medical CenterComment on above:Result Comment: Electronically Signed By: Jerardo CANTRELL, Radu Putnam\Date and Time Signed: 04/03/25 19:22 EDTANA Antinuclear Antibodieson 17-87-5677Arsgibnpyit Abs, IFAPositiveCritically abnormal.[facility] Physician GroupComment on above:Result Comment: Negative <1:80 Borderline 1:80 Positive >1:80Performed By: #### CH50, TPO, RA, DARIEL, C3, C4, THYGLOB AB, CARDIO GMA, CCP, B2 GLYPROT, CHROMATIN #### [facility] ,Note 1CommentNormal.The [facility] Physician GroupComment on above:Result Comment: Pattern Potential Disease Association Homogeneous Systemic Lupus Erythematosus, Drug Induced Systemic Lupus Erythematosus, Chronic Autoimmune hepatitis, Juvenile Idiopathic Arthritis Speckled Sjogren Syndrome, Systemic Lupus Erythematosus, Subacute Cutaneous Lupus, Lupus, Congenital Heart Block, Mixed Connective Tissue Disease, Scleroderma-diffuse, Scleroderma-Autoimmune Myositis Overlap Syndrome, Systemic Lupus Ajuphnyzvogan-Mwanorwcbao-Lhhvjdcsyj Myositis Overlap Syndrome, Systemic Autoimmune Rheumatic Disease, [...] Cytopenias, Linear Scleroderma, Antiphospholipid Syndrome Performed at: [facility] Lab[address] [id number] Electrical Machinist: Raul Nieves PhD, Phone: [phone] By: #### CH50, TPO, RA, DARIEL, C3, C4, THYGLOB AB, CARDIO GMA, CCP, B2 GLYPROT, CHROMATIN #### [facility] ,Speckled Pattern1:80Normal.The [facility] Physician GroupComment on above:Result Comment: Dense Fine Speckled pattern is noted. This pattern suggests the presence of DFS70 antibody which has a low prevalence in systemic autoimmune rheumatic diseases. ICAP nomenclature: AC-2,4,5,29Performed By: #### CH50, TPO, RA, DARIEL, C3, C4, THYGLOB AB, CARDIO GMA, CCP, B2 GLYPROT, CHROMATIN #### [facility] ,Alanine aminotransferase [Enzymatic activity/volume] in Serum or PlasmaOrdered By: Boo Godoy on 52-29-2973ZGR [Catalytic activity/Vol]Alanine aminotransferase [Enzymatic activity/volume] in Serum or PlasmaBucyrus Community HospitalAlbumin [Mass/volume] in Serum or Plasma by Bromocresol green (BCG) dye binding methoOrdered By: Boo Godoy on 59-93-8503Vqucnnt BCG dye [Mass/Vol]Albumin [Mass/volume] in Serum or Plasma by Bromocresol green (BCG) dye binding metho3.5-5.7FPremier Health Atrium Medical CenterAldolaseon 64-58-1765Hwmhaliu2.8 U/LNormal3.3-10.3The [facility] Physician GroupComment on above:Result Comment: Performed at: [address] [id number] Electrical Machinist: Raul Nieves PhD, Phone: [phone] PERFORMED BY: [place] [address] [place] [address] PATHOLOGIST RECEIVER/LABORER RHONDA BAUER M.D.Performed By: #### CH50, TPO, RA, DARIEL, C3, C4, THYGLOB AB, CARDIO GMA, CCP, B2 GLYPROT, CHROMATIN #### [facility] ,Alkaline phosphatase [Enzymatic activity/volume] in Serum or PlasmaOrdered By: Boo Godoy on 92-56-6760XHK [Catalytic activity/Vol]Alkaline phosphatase [Enzymatic activity/volume] in Serum or Tvppyj16-880LehmcoiujBucyrus Community HospitalAnti-Centromere B Antibodieson 05-16-2620Bmoi-Centromere B Antibodies<0.2 Normal0.0-0.9The [facility] Physician GroupComment on above:Result Comment: Performed at: [facility] Lab[address] [id number] Electrical Machinist: Raul Nieves PhD, Phone: [phone] By: #### CH50, TPO, RA, DARIEL, C3, C4, THYGLOB AB, CARDIO GMA, CCP, B2 GLYPROT, CHROMATIN #### [facility] ,Anti-RNPon 56-68-1209Vyvj-HARBOR ENGINEER<0.8Viqatw5.0-0.9[facility] Comment on above:Performed By: #### CH50, TPO, RA, DARIEL, C3, C4, THYGLOB AB, CARDIO GMA, CCP, B2 GLYPROT, CHROMATIN #### [facility] ,Anti-Anders Antibodieson 41-62-7573Ncot-Anders Antibodies<0.4Iebngy6.0-0.9The [facility] GroupComment on above:Performed By: #### CH50, TPO, RA, DARIEL, C3, C4, THYGLOB AB, CARDIO GMA, CCP, B2 GLYPROT, CHROMATIN #### [facility] ,Anti-dsDNA(DBL)Abon 89-28-5473Akza-dsDNA(DBL)Ab<8Axuxqm3-3Vfx [facility] HospitalComment on above:Result Comment: Negative <5 Equivocal 5 - 9 Positive >9 PERFORMED BY: [address] [address] PATHOLOGIST RECEIVER/LABORER RHONDA BAUER M.D.Performed By: #### CH50, TPO, RA, DARIEL, C3, C4, THYGLOB AB, CARDIO GMA, CCP, B2 GLYPROT, CHROMATIN #### [facility] ,Anticardiolipin IgG/M/A, Qnon 77-45-7952Jbbhzseaoymkqhm Ab, IgA,Qn<6Jpzdtp0-75 The [facility] Physician GroupComment on above:Result Comment: Negative: <12 Indeterminate: 12 - 20 Low-Med Positive: >20 - 80 High Positive: >80 Performed at: [address] [id number] Electrical Machinist: Raul Nieves PhD, Phone: [phone] By: #### CH50, TPO, RA, DARIEL, C3, C4, THYGLOB AB, CARDIO GMA, CCP, B2 GLYPROT, CHROMATIN #### [facility] ,Anticardiolipin Ab, IgG,Qn<0Muihrp4-02Hzp [facility] HospitalComment on above:Result Comment: Negative: <15 Indeterminate: 15 - 20 Low-Med Positive: >20 - 80 High Positive: >80Performed By: #### CH50, TPO, RA, DARIEL, C3, C4, THYGLOB AB, CARDIO GMA, CCP, B2 GLYPROT, CHROMATIN #### [facility] ,Anticardiolipin Ab, IgM,Ds28Tnpowp2-77Scj [facility] Physician GroupComment on above:Result Comment: Negative: <13 Indeterminate: 13 - 20 Low-Med Positive: >20 - 80 High Positive: >80Performed By: #### CH50, TPO, RA, DARIEL, C3, C4, THYGLOB AB, CARDIO GMA, CCP, B2 GLYPROT, CHROMATIN #### [facility] ,Antithyroglobulin Abon 46-72-4289Pmoptavduebjgraye Ab7.7 [IU]/mLHigh0.0-0.9The [facility] Physician GroupComment on above:Result Comment: Thyroglobulin Antibody measured by Demetra Hurley Methodology It should be noted that the presence of thyroglobulin antibodies may not be pathogenic nor diagnostic, especially at very low levels. The assay logistics support has found that four percent of individuals without evidence of thyroid disease or autoimmunity will have positive TgAb levels up to 4 IU/mL. Performed at: [facility] [id number] Electrical Machinist: Raul Nieves PhD, Phone: [phone] By: #### CH50, TPO, RA, DARIEL, C3, C4, THYGLOB AB, CARDIO GMA, CCP, B2 GLYPROT, CHROMATIN #### [facility] ,Appearance of UrineOrdered By: Boo Godoy on 05-75-0147Kmawbpwtyw (U)Urine appearanceCleSt. Vincent HospitalAspartate aminotransferase [Enzymatic activity/volume] in Serum or PlasmaOrdered By: Boo Godoy on 06-02-0583KNZ [Catalytic activity/Vol]Aspartate aminotransferase [Enzymatic activity/volume] in Serum or Yzzakg81-83DkwooozimBucyrus Community Hospital Bacteria [Presence] in Urine by AutomatedOrdered By: Boo Godoy on 94-11-6171Tbqesxwh Auto Ql (U)Bacteria [Presence] in Urine by AutomatedNone Seen [facility] HospitalBasophils Auto (Bld) [#/Vol]Ordered By: Boo Godoy on 45-58-7169Zbqnitcwq (Bld) [#/Vol]Automated basophil count0.0-0.2 [facility] HospitalBasophils/100 WBC Auto (Bld)Ordered By: Boo Godoy on 12-99-9760Mfoxbwrry/100 WBC (Bld)Automated basophil %.Bucyrus Community HospitalBeta 2 Glycoprotein I Ab IgG/Mon 76-05-7303Riwc 2 Glycoprotein I Ab, IgG<5Wrzhhh2-19Fun [facility] Physician GroupComment on above: Result Comment: Result Units: GPI IgG units The reference interval reflects a 3SD or 99th percentile interval, which is thought to represent a potentially clinically significant result in accordance with the International Consensus Statement on the classification criteria for definitive antiphospholipid syndrome (APS). J Thromb Haem 2006;4:295-306.Performed By: #### CH50, TPO, RA, DARIEL, C3, C4, THYGLOB AB, CARDIO GMA, CCP, B2 GLYPROT, CHROMATIN #### [facility] ,Beta 2 Glycoprotein I Ab, IgM<6Rjfvxp2-29Ihj [facility] Physician GroupComment on above:Result Comment: Result Units: GPI IgM units The reference interval reflects a 3SD or 99th percentile interval, which is thought to represent a potentially clinically significant result in accordance with the International Consensus Statement on the classification criteria for definitive antiphospholipid syndrome (APS). J Thromb Haem 2006;4:295-306. Performed at: [facility] [place] [id number] Electrical Machinist: Raul Nieves PhD, Phone: [phone] By: #### CH50, TPO, RA, DARIEL, C3, C4, THYGLOB AB, CARDIO GMA, CCP, B2 GLYPROT, CHROMATIN #### [facility] ,Bilirubin Test strip Ql (U)Ordered By: Boo Godoy on 96-53-0199Jihixlaja Ql (U)Bilirubin.total [Presence] in Urine by Test stripNegativeBucyrus Community HospitalBilirubin.total [Mass/volume] in Serum or PlasmaOrdered By: Boo Godoy on 56-47-2014Ypyaolluj [Mass/Vol]Bilirubin.total [Mass/volume] in Serum or Plasma0.3-1.0Bu[facility]rus Community HospitalC reactive protein [Mass/volume] in Serum or PlasmaOrdered By: Boo Godoy on 75-46-2575GOH [Mass/Vol]C reactive protein [Mass/volume] in Serum or Plasma0.0-0.5FPremier Health Atrium Medical CenterC-Reactive Proteinon 48-06-1705MGK [Mass/Vol]mg/LNormal 0.0-0.5The [facility] Physician GroupComment on above:Performed By: #### CH50, TPO, RA, DARIEL, C3, C4, THYGLOB AB, CARDIO GMA, CCP, B2 GLYPROT, CHROMATIN #### [facility] ,Calcium [Mass/volume] in Serum or PlasmaOrdered By: Boo Godoy on 06-73-1097Yxyvbvs [Mass/Vol]Calcium [Mass/volume] in Serum or Plasma8.6-10.3 [facility] HospitalCarbon dioxide, total [Moles/volume] in Serum or PlasmaOrdered By: Boo Godoy on 14-94-0659HK2 [Moles/Vol]Carbon dioxide, total [Moles/volume] in Serum or Cbubqw14.0-31.0[facility] Community HospitalChloride [Moles/volume] in Serum or PlasmaOrdered By: Boo Godoy on 65-55-2573Kydielqh [Moles/Vol]Chloride [Moles/volume] in Serum or PlasmaHigh 98-107Bucyrus Community HospitalChromatin Antibodyon 66-75-4070Zakssqwss Antibody<0.4Rxzmvf6.0-0.9The [facility] Physician GroupComment on above:Result Comment: Performed at: - [facility] [address] [id number] Electrical Machinist: Raul Nieves PhD, Phone: [phone] PERFORMED BY: [facility] [address] [place] [address] PATHOLOGIST RECEIVER/LABORER RHONDA BAUER M.D.Performed By: #### CH50, TPO, RA, DARIEL, C3, C4, THYGLOB AB, CARDIO GMA, CCP, B2 GLYPROT, CHROMATIN #### [facility] ,Coagulation Profileon 77-02-6324mDUH Coag (Bld) [Time]29.6 tOcksso40.1-36.5The [facility] Physician GroupComment on above:Result Comment: A hematocrit value greater than 55% may lead to inaccurate results in coagulation testing. Patients having hematocrit values >55% require a special collection tube for coagulation studies. Please contact the laboratory at [phone] for redraw instructions. PERFORMED BY: [facility] [address] [place] [address] PATHOLOGIST RECEIVER/LABORER RHONDA BAUER M.D.Performed By: #### CH50, TPO, RA, DARIEL, C3, C4, THYGLOB AB, CARDIO GMA, CCP, B2 GLYPROT, CHROMATIN #### [facility] ,INR Coag (PPP) [Relative time]1.0 {INR}NormalThe [facility] Group Comment on above:Result Comment: INR Therapeutic Range A) Pre- and [...] patients with mechanical heart valves: 3 - 4.5Performed By: #### CH50, TPO, RA, DARIEL, C3, C4, THYGLOB AB, CARDIO GMA, CCP, B2 GLYPROT, CHROMATIN #### [facility] ,PT Coag (PPP) [Time]11.5 sNormal9.0-12.9The [facility] Physician GroupComment on above:Result Comment: A hematocrit value greater than 55% may lead to inaccurate results in coagulation testing. Patients having hematocrit values >55% require a special collection tube for coagulation studies. Please contact the laboratory at [phone] for redraw instructions.Performed By: #### CH50, TPO, RA, DARIEL, C3, C4, THYGLOB AB, CARDIO GMA, CCP, B2 GLYPROT, CHROMATIN #### [facility] ,Color Auto (U)Ordered By: Boo Godoy on 37-77-7901Xltoc (U)Color of Urine by AutoYelTuscarawas HospitalComplement C3on 01-17-2025 Complement C3132 mg/mICuitmn59-026Jhc [facility] Physician GroupComment on above: Performed By: #### CH50, TPO, RA, DARIEL, C3, C4, THYGLOB AB, CARDIO GMA, CCP, B2 GLYPROT, CHROMATIN #### [facility] ,Complement C4on 63-47-5278Byupybamjx C426 mg/eIQdudqx00-61Yrl [facility] HospitalComment on above:Performed By: #### CH50, TPO, RA, DARIEL, C3, C4, THYGLOB AB, CARDIO GMA, CCP, B2 GLYPROT, CHROMATIN #### [facility] ,Complement Total (CH50)on 26-89-8567Tsnenctqub Total (CH50)>60Normal>41The [facility] Physician [facility] HospitalComment on above:Result Comment: Age Male Female 1 - 30 [...] determine out of range values. Performed at: [address] [id number] Electrical Machinist: Raul Nieves PhD, Phone: [phone] PERFORMED BY: [address] [address] PATHOLOGIST RECEIVER/LABORER RHONDA BAUER M.D.Performed By: #### CH50, TPO, RA, DARIEL, C3, C4, THYGLOB AB, CARDIO GMA, CCP, B2 GLYPROT, CHROMATIN #### [facility] ,Complete Blood Count Auto Diffon 17-19-2941Qigaydrok (Bld) [#/Vol]0.1 10*3/uL Normal0.0-0.2The [facility] Physician GroupComment on above:Performed By: #### CH50, TPO, RA, DARIEL, C3, C4, THYGLOB AB, CARDIO GMA, CCP, B2 GLYPROT, CHROMATIN #### [facility] ,Basophils/100 WBC (Bld)0.9 %Normal.The [facility] Physician GroupComment on above:Performed By: #### CH50, TPO, RA, DARIEL, C3, C4, THYGLOB AB, CARDIO GMA, CCP, B2 GLYPROT, CHROMATIN #### [facility] ,Eosinophils (Bld) [#/Vol]0.1 10*3/uLNormal0.0-0.45The [facility] Comment on above:Performed By: #### CH50, TPO, RA, DARIEL, C3, C4, THYGLOB AB, CARDIO GMA, CCP, B2 GLYPROT, CHROMATIN #### [facility] ,Eosinophils/100 WBC (Bld)1.8 %Normal.The [facility] Physician GroupComment on above:Performed By: #### CH50, TPO, RA, DARIEL, C3, C4, THYGLOB AB, CARDIO GMA, CCP, B2 GLYPROT, CHROMATIN #### [facility] ,Erythrocyte distribution width (RBC) [Ratio]12.8 %Kpcanl24.9-15.3The [facility] Physician GroupComment on above:Performed By: #### CH50, TPO, RA, DARIEL, C3, C4, THYGLOB AB, CARDIO GMA, CCP, B2 GLYPROT, CHROMATIN #### [facility] ,Hematocrit (Bld) [Volume fraction]38.9 %Qfoqrh09.0-46.4The [facility] Physician GroupComment on above:Performed By: #### CH50, TPO, RA, DARIEL, C3, C4, THYGLOB AB, CARDIO GMA, CCP, B2 GLYPROT, CHROMATIN #### [facility] ,Hemoglobin (Bld) [Mass/Vol]12.9 g/kPRqvsya79.8-15.4The [facility] Physician GroupComment on above:Performed By: #### CH50, TPO, RA, DARIEL, C3, C4, THYGLOB AB, CARDIO GMA, CCP, B2 GLYPROT, CHROMATIN #### [facility] ,Lymphocytes (Bld) [#/Vol]1.4 10*3/uLNormal1.00-4.8The [facility] Comment on above:Performed By: #### CH50, TPO, RA, DARIEL, C3, C4, THYGLOB AB, CARDIO GMA, CCP, B2 GLYPROT, CHROMATIN #### [facility] ,Lymphocytes/100 WBC (Bld)21.0 %Normal.The [facility] Physician GroupComment on above:Performed By: #### CH50, TPO, RA, DARIEL, C3, C4, THYGLOB AB, CARDIO GMA, CCP, B2 GLYPROT, CHROMATIN #### [facility] ,MCH (RBC) [Entitic mass]30.2 hjPnvoaz92.7-34.3The [facility] Comment on above:Performed By: #### CH50, TPO, RA, DARIEL, C3, C4, THYGLOB AB, CARDIO GMA, CCP, B2 GLYPROT, CHROMATIN #### [facility] ,MCV (RBC) [Entitic vol]90.5 zZCajmar77-737Jyb [facility] Physician GroupComment on above:Performed By: #### CH50, TPO, RA, DARIEL, C3, C4, THYGLOB AB, CARDIO GMA, CCP, B2 GLYPROT, CHROMATIN #### [facility] ,Mean Corpuscular HGB Conc33.3 g/aQTqpgkp73.0-35.0The [facility] Comment on above:Performed By: #### CH50, TPO, RA, DARIEL, C3, C4, THYGLOB AB, CARDIO GMA, CCP, B2 GLYPROT, CHROMATIN #### [facility] ,Monocytes (Bld) [#/Vol]0.6 10*3/uLNormal0.0-0.8The [facility] Comment on above:Performed By: #### CH50, TPO, RA, DARIEL, C3, C4, THYGLOB AB, CARDIO GMA, CCP, B2 GLYPROT, CHROMATIN #### [facility] ,Monocytes/100 WBC (Bld)8.9 %Normal.The [facility] Physician GroupComment on above:Performed By: #### CH50, TPO, RA, DARIEL, C3, C4, THYGLOB AB, CARDIO GMA, CCP, B2 GLYPROT, CHROMATIN #### [facility] ,Neutrophils (Bld) [#/Vol]4.4 10*3/uLNormal1.8-7.7The [facility] Comment on above:Performed By: #### CH50, TPO, RA, DARIEL, C3, C4, THYGLOB AB, CARDIO GMA, CCP, B2 GLYPROT, CHROMATIN #### [facility] ,Neutrophils/100 WBC (Bld)67.4 %Normal.The [facility] Physician GroupComment on above:Performed By: #### CH50, TPO, RA, DARIEL, C3, C4, THYGLOB AB, CARDIO GMA, CCP, B2 GLYPROT, CHROMATIN #### [facility] ,NRBC%0.2 /100{WBC}Normal0-0.5The [facility] Physician GroupComment on above: Performed By: #### CH50, TPO, RA, DARIEL, C3, C4, THYGLOB AB, CARDIO GMA, CCP, B2 GLYPROT, CHROMATIN #### [facility] ,Platelet mean volume (Bld) [Entitic vol]9.4 fLNormal6.3-10.7The [facility] Physician GroupComment on above:Performed By: #### CH50, TPO, RA, DARIEL, C3, C4, THYGLOB AB, CARDIO GMA, CCP, B2 GLYPROT, CHROMATIN #### [facility] ,Platelets (Bld) [#/Vol]240 10*3/eGIdkzke622-125Hmq [facility] Comment on above:Performed By: #### CH50, TPO, RA, DARIEL, C3, C4, THYGLOB AB, CARDIO GMA, CCP, B2 GLYPROT, CHROMATIN #### [facility] ,RBC (Bld) [#/Vol]4.29 10*6/uLNormal3.60-5.00The [facility] Comment on above:Performed By: #### CH50, TPO, RA, DARIEL, C3, C4, THYGLOB AB, CARDIO GMA, CCP, B2 GLYPROT, CHROMATIN #### [facility] ,WBC (Bld) [#/Vol]6.5 10*3/uLNormal3.8-11.6The [facility] Physician GroupComment on above:Performed By: #### CH50, TPO, RA, DARIEL, C3, C4, THYGLOB AB, CARDIO GMA, CCP, B2 GLYPROT, CHROMATIN #### [facility] ,Comprehensive Metabolic Panelon 71-73-0204Aqqdmur [Mass/Vol]4.2 g/dLNormal 3.5-5.7The [facility] Physician GroupComment on above:Performed By: #### CH50, TPO, RA, DARIEL, C3, C4, THYGLOB AB, CARDIO GMA, CCP, B2 GLYPROT, CHROMATIN #### [facility] ,Albumin/Globulin [Mass ratio]1.8 {ratio}NormalThe [facility] Comment on above:Performed By: #### CH50, TPO, RA, DARIEL, C3, C4, THYGLOB AB, CARDIO GMA, CCP, B2 GLYPROT, CHROMATIN #### [facility] ,ALP [Catalytic activity/Vol]56 U/KBwrspm13-642Itj [facility] Comment on above:Performed By: #### CH50, TPO, RA, DARIEL, C3, C4, THYGLOB AB, CARDIO GMA, CCP, B2 GLYPROT, CHROMATIN #### [facility] ,ALT [Catalytic activity/Vol]14 U/LNormal7-52The [facility] Comment on above:Performed By: #### CH50, TPO, RA, DARIEL, C3, C4, THYGLOB AB, CARDIO GMA, CCP, B2 GLYPROT, CHROMATIN #### [facility] ,Anion gap [Moles/Vol]10.0 mmol/LNormal6.0-15.0The [facility] Comment on above:Performed By: #### CH50, TPO, RA, DARIEL, C3, C4, THYGLOB AB, CARDIO GMA, CCP, B2 GLYPROT, CHROMATIN #### [facility] ,AST [Catalytic activity/Vol]16 U/IJrfwot41-07Qfi [facility] Comment on above:Performed By: #### CH50, TPO, RA, DARIEL, C3, C4, THYGLOB AB, CARDIO GMA, CCP, B2 GLYPROT, CHROMATIN #### [facility] ,Bilirubin [Mass/Vol]0.8 mg/dLNormal0.3-1.0The [facility] Physician GroupComment on above:Performed By: #### CH50, TPO, RA, DARIEL, C3, C4, THYGLOB AB, CARDIO GMA, CCP, B2 GLYPROT, CHROMATIN #### [facility] ,Calcium [Mass/Vol]9.8 mg/dLNormal8.6-10.3The [facility] Physician GroupComment on above:Performed By: #### CH50, TPO, RA, DARIEL, C3, C4, THYGLOB AB, CARDIO GMA, CCP, B2 GLYPROT, CHROMATIN #### [facility] ,Chloride [Moles/Vol]108 mmol/QFimt75-526Ubs [facility] Physician GroupComment on above:Performed By: #### CH50, TPO, RA, DARIEL, C3, C4, THYGLOB AB, CARDIO GMA, CCP, B2 GLYPROT, CHROMATIN #### [facility] ,CO2 [Moles/Vol]28.0 mmol/GBpjkfk07.0-31.0[facility] Phys[facility] GroupComment on above:Performed By: #### CH50, TPO, RA, DARIEL, C3, C4, THYGLOB AB, CARDIO GMA, CCP, B2 GLYPROT, CHROMATIN #### [facility] ,Creatinine [Mass/Vol]0.69 mg/dLNormal0.60-1.20[facility] Comment on above:Performed By: #### CH50, TPO, RA, DARIEL, C3, C4, THYGLOB AB, CARDIO GMA, CCP, B2 GLYPROT, CHROMATIN #### [facility] ,GFR/1.73 sq M.predicted MDRD (S/P/Bld) [Vol rate/Area]mL/min/{1.73_m2}NormalThe [facility] Physician GroupComment on above:Performed By: #### CH50, TPO, RA, DARIEL, C3, C4, THYGLOB AB, CARDIO GMA, CCP, B2 GLYPROT, CHROMATIN #### [facility] ,Globulin (S) [Mass/Vol]2.4 g/dLNormalThe [facility] Physician GroupComment on above:Performed By: #### CH50, TPO, RA, DARIEL, C3, C4, THYGLOB AB, CARDIO GMA, CCP, B2 GLYPROT, CHROMATIN #### [facility] ,Glucose [Mass/Vol]103 mg/uUKthe10-433Cwc [facility] Physician GroupComment on above:Result Comment: Random Glucose Reference Range is dependent on time and content of last meal. Glucose of more than 200 mg/dL in a nonstressed, ambulatory subject supports the diagnosis of Diabetes Mellitus. ADA recommended reference rangePerformed By: #### CH50, TPO, RA, DARIEL, C3, C4, THYGLOB AB, CARDIO GMA, CCP, B2 GLYPROT, CHROMATIN #### [facility] ,Potassium [Moles/Vol]4.0 mmol/LNormal3.5-5.1The [facility] Comment on above:Performed By: #### CH50, TPO, RA, DARIEL, C3, C4, THYGLOB AB, CARDIO GMA, CCP, B2 GLYPROT, CHROMATIN #### [facility] ,Protein [Mass/Vol]6.6 g/dLNormal6.4-8.9The [facility] Physician GroupComment on above:Performed By: #### CH50, TPO, RA, DARIEL, C3, C4, THYGLOB AB, CARDIO GMA, CCP, B2 GLYPROT, CHROMATIN #### [facility] ,Sodium [Moles/Vol]142 mmol/WLgjuaq277-314Cqt [facility] Physician GroupComment on above:Performed By: #### CH50, TPO, RA, DARIEL, C3, C4, THYGLOB AB, CARDIO GMA, CCP, B2 GLYPROT, CHROMATIN #### [facility] ,Urea nitrogen [Mass/Vol]19 mg/dLNormal7-25The [facility] Physician GroupComment on above:Performed By: #### CH50, TPO, RA, DARIEL, C3, C4, THYGLOB AB, CARDIO GMA, CCP, B2 GLYPROT, CHROMATIN #### [facility] ,Creatine Kinaseon 07-56-7527RR [Catalytic activity/Vol]88 U/XEppymd16-947Xak [facility] Physician GroupComment on above:Result Comment: PERFORMED BY: [address] [address] PATHOLOGIST RECEIVER/LABORER RHONDA BAUER M.D.Performed By: #### CH50, TPO, RA, DARIEL, C3, C4, THYGLOB AB, CARDIO GMA, CCP, B2 GLYPROT, CHROMATIN #### [facility] ,Creatine kinase [Enzymatic activity/volume] in Serum or PlasmaOrdered By: Boo Godoy on 58-98-7625TL [Catalytic activity/Vol]Creatine kinase [Enzymatic activity/volume] in Serum or Esbdfh07-690VrvnrrtqfBucyrus Community HospitalCreatinine [Mass/volume] in Serum or PlasmaOrdered By: Boo Godoy on 39-16-4131Alrtqqrmvf [Mass/Vol]Creatinine [Mass/volume] in Serum or Plasma 0.60-1.20Bu[facility] Community HospitalCyclic Citrulliated Pep Abon 09-64-7730Lxpciu Citrulliated Pep Yq4Yikdim5-72Nbn [facility] Comment on above:Result Comment: Negative <20 Weak positive 20 - 39 Moderate positive 40 - 59 Strong positive >59 Performed at: [facility] Lab[address] [id number] Electrical Machinist: Raul Nieves PhD, Phone: [phone] By: #### CH50, TPO, RA, DARIEL, C3, C4, THYGLOB AB, CARDIO GMA, CCP, B2 GLYPROT, CHROMATIN #### [facility] ,Dipstick and Microscopicon 82-01-6307Jvowfajpgq (U)ClearNormalClearAdventhealth For Children Physician GroupComment on above:Order Comment: Name Collection Type:: Clean-Voided MidstreamPerformed By: #### CH50, TPO, RA, DARIEL, C3, C4, THYGLOB AB, CARDIO GMA, CCP, B2 GLYPROT, CHROMATIN #### [facility] ,Bacteria,UrineNone SeenNormalNone SeenAdventhealth For Children Physician GroupComment on above:Order Comment: Name Collection Type:: Clean-Voided MidstreamPerformed By: #### CH50, TPO, RA, DARILE, C3, C4, THYGLOB AB, CARDIO GMA, CCP, B2 GLYPROT, CHROMATIN #### [facility] ,Bilirubin,UrineNegativeNormalNegativeAdventhealth For Children Physician GroupComment on above:Order Comment: Name Collection Type:: Clean-Voided MidstreamPerformed By: #### CH50, TPO, RA, DARIEL, C3, C4, THYGLOB AB, CARDIO GMA, CCP, B2 GLYPROT, CHROMATIN #### [facility] ,Color (U)Light-YellowNormalYellowAdventhealth For Children Physician GroupComment on above: Order Comment: Name Collection Type:: Clean-Voided MidstreamPerformed By: #### CH50, TPO, RA, DARIEL, C3, C4, THYGLOB AB, CARDIO GMA, CCP, B2 GLYPROT, CHROMATIN #### [facility] ,Glucose Ql (U)NormalNormalNormalThBoise [facility] Medical Center Physician GroupComment on above: Order Comment: Name Collection Type:: Clean-Voided MidstreamPerformed By: #### CH50, TPO, RA, DARIEL, C3, C4, THYGLOB AB, CARDIO GMA, CCP, B2 GLYPROT, CHROMATIN #### [facility] ,Hyaline Casts,Kdmft7-0Woopha6-2Ehz [facility] Physician GroupComment on above: Order Comment: Name Collection Type:: Clean-Voided MidstreamPerformed By: #### CH50, TPO, RA, DARIEL, C3, C4, THYGLOB AB, CARDIO GMA, CCP, B2 GLYPROT, CHROMATIN #### [facility] ,Ketones Ql (U)NegativeNormalNegativeAdventhealth For Children Physician GroupComment on above:Order Comment: Name Collection Type:: Clean-Voided MidstreamPerformed By: #### CH50, TPO, RA, DARIEL, C3, C4, THYGLOB AB, CARDIO GMA, CCP, B2 GLYPROT, CHROMATIN #### [facility] ,Leukocyte esterase Test strip Ql (U)NegativeNormalNegativeAdventhealth For Children Physician GroupComment on above:Order Comment: Name Collection Type:: Clean- Voided MidstreamPerformed By: #### CH50, TPO, RA, DARIEL, C3, C4, THYGLOB AB, CARDIO GMA, CCP, B2 GLYPROT, CHROMATIN #### [facility] ,Mucus,Urine1+Critically abnormalThe [facility] Physician GroupComment on above: Order Comment: Name Collection Type:: Clean-Voided MidstreamResult Comment: PERFORMED BY: [address] [place] [address] PATHOLOGIST RECEIVER/LABORER RHONDA BAUER M.D.Performed By: #### CH50, TPO, RA, DARIEL, C3, C4, THYGLOB AB, CARDIO GMA, CCP, B2 GLYPROT, CHROMATIN #### [facility] ,Nitrite,UrineNegativeNormalNegativeThe [facility] Physician GroupComment on above:Order Comment: Name Collection Type:: Clean-Voided MidstreamPerformed By: #### CH50, TPO, RA, DARIEL, C3, C4, THYGLOB AB, CARDIO GMA, CCP, B2 GLYPROT, CHROMATIN #### [facility] ,Occult Blood,UrineNegativeNormalNegativeThe [facility] Physician GroupComment on above:Order Comment: Name Collection Type:: Clean-Voided MidstreamPerformed By: #### CH50, TPO, RA, DARIEL, C3, C4, THYGLOB AB, CARDIO GMA, CCP, B2 GLYPROT, CHROMATIN #### [facility] ,pH (U)7.0 [pH]Normal5.0-9.0The [facility] Physician GroupComment on above:Order Comment: Name Collection Type:: Clean-Voided MidstreamPerformed By: #### CH50, TPO, RA, DARIEL, C3, C4, THYGLOB AB, CARDIO GMA, CCP, B2 GLYPROT, CHROMATIN #### [facility] ,Protein,UrineNegativeNormalNegativeThe [facility] Physician GroupComment on above:Order Comment: Name Collection Type:: Clean-Voided MidstreamPerformed By: #### CH50, TPO, RA, DARIEL, C3, C4, THYGLOB AB, CARDIO GMA, CCP, B2 GLYPROT, CHROMATIN #### [facility] ,RBC,Aegmx1-0Ktngzc7-3Elg [facility] Physician GroupComment on above:Order Comment: Name Collection Type:: Clean-Voided MidstreamPerformed By: #### CH50, TPO, RA, DARIEL, C3, C4, THYGLOB AB, CARDIO GMA, CCP, B2 GLYPROT, CHROMATIN #### [facility] ,Specificy [place],Urine1.314Obvpkc3.001-1.030The [facility] Comment on above:Order Comment: Name Collection Type:: Clean-Voided Midstream Performed By: #### CH50, TPO, RA, DARIEL, C3, C4, THYGLOB AB, CARDIO GMA, CCP, B2 GLYPROT, CHROMATIN #### [facility] ,Squamous Epithelial Cell,Yytdt9-6Whiwoc3-8Jqn [facility] Physician GroupComment on above:Order Comment: Name Collection Type:: Clean-Voided MidstreamPerformed By: #### CH50, TPO, RA, DARIEL, C3, C4, THYGLOB AB, CARDIO GMA, CCP, B2 GLYPROT, CHROMATIN #### [facility] ,Urobilinogen,UrineNormalNormalNormalThe [facility] Physician GroupComment on above:Order Comment: Name Collection Type:: Clean-Voided MidstreamPerformed By: #### CH50, TPO, RA, DARIEL, C3, C4, THYGLOB AB, CARDIO GMA, CCP, B2 GLYPROT, CHROMATIN #### [facility] ,WBC,Iccue7-3Qzfcou3-9Tsw [facility] Physician GroupComment on above:Order Comment: Name Collection Type:: Clean-Voided MidstreamPerformed By: #### CH50, TPO, RA, DARIEL, C3, C4, THYGLOB AB, CARDIO GMA, CCP, B2 GLYPROT, CHROMATIN #### [facility] ,Eosinophils Auto (Bld) [#/Vol]Ordered By: Boo Godoy on 01-17-2025 Eosinophils (Bld) [#/Vol]Automated eosinophil count0.0-0.45[facility] HospitalEosinophils/100 WBC Auto (Bld)Ordered By: Boo Godoy on 19-32-8288Eylptyvxjfp/100 WBC (Bld)Automated eosinophil %.[facility] Community HospitalEpithelial cells.squamous [#/area] in Urine sediment by Automated countOrdered By: Boo Godoy on 47-27-1007Pqpiscpigj cells.squamous Auto (Urine sed) [#/Area]Epithelial cells.squamous [#/area] in Urine sediment by Automated count0-2FPremier Health Atrium Medical CenterErythrocyte Sedimentation Rateon 60-88-3835XDK (Bld) [Velocity]22 mm/hNormal0-29The [facility] Physician GroupComment on above:Result Comment: PERFORMED BY: [place] [address] [place] [address] PATHOLOGIST RECEIVER/LABORER RHONDA BAUER M.D.Performed By: #### CH50, TPO, RA, DARIEL, C3, C4, THYGLOB AB, CARDIO GMA, CCP, B2 GLYPROT, CHROMATIN #### [facility] ,Erythrocyte distribution width Auto (RBC) [Ratio]Ordered By: Boo Godoy on 56-09-7140Ylzuqeevlzh distribution width (RBC) [Ratio]Erythrocyte distribution width [Ratio] by Automated count11.9-15.3FPremier Health Atrium Medical Center Erythrocyte sedimentation rate by Photometric methodOrdered By: Boo Godoy on 88-14-7461FEZ Photometric method (Bld) [Velocity]Erythrocyte sedimentation rate by Photometric method0[facility] HospitalErythrocytes [#/area] in Urine sediment by Automated countOrdered By: Boo Godoy on 00-71-9410HCC Auto (Urine sed) [#/Area]Erythrocytes [#/area] in Urine sediment by Automated count0[facility] Medical CenterFree T4 (Free Thyroxine)on 54-11-8178Zjly T4 [Mass/Vol]1.62 ng/dLHigh0.61-1.12The [facility] Physician GroupComment on above:Performed By: #### CH50, TPO, RA, DARIEL, C3, C4, THYGLOB AB, CARDIO GMA, CCP, B2 GLYPROT, CHROMATIN #### [facility] ,Globulin Calc (S) [Mass/Vol]Ordered By: Boo Godoy on 02-44-3489Yosgqhqk (S) [Mass/Vol]Serum globulin measurement by calculation (mass/volume)[facility] HospitalGlucose [Mass/volume] in Serum or PlasmaOrdered By: Boo Godoy on 21-97-1705Ndqoakz [Mass/Vol]Glucose [Mass/volume] in Serum or QqcdncYppj72-035WjulseslbBucyrus Community HospitalComment on above:ADA recommended reference rangeRandom Glucose Reference Range is dependent on time and content of last meal. Glucose of more than 200 mg/dL in a nonstressed, ambulatory subject supports the diagnosisof Diabetes Mellitus.Glucose [Mass/volume] in Urine by Test stripOrdered By: Boo Godoy on 01-17-2025 Glucose Test strip (U) [Mass/Vol]Glucose [Mass/volume] in Urine by Test strip NormalBucyrus Community HospitalHematocrit Auto (Bld) [Volume fraction] Ordered By: Boo Godoy on 47-32-0448Rbovxvgslz (Bld) [Volume fraction] Hematocrit [Volume Fraction] of Blood by Automated count34.0-46.4FPremier Health Atrium Medical CenterHemoglobin Test strip Ql (U)Ordered By: Boo oGdoy on 80-56-7754Eesdirrbwe Ql (U)Hemoglobin [Presence] in Urine by Test stripNegative [facility] HospitalHemoglobin [Mass/volume] in BloodOrdered By: Boo Godoy on 47-40-3075Vnydmmonra (Bld) [Mass/Vol]Hemoglobin [Mass/volume] in Blood11.8-15.4FPremier Health Atrium Medical CenterHistone Antibodieson 12-06-8085Zvwwkyr Antibodies0.0Wegrkp6.0-0.9The [facility] Physician GroupComment on above:Result Comment: Negative <1.0 Weak Positive 1.0 - 1.5 Moderate Positive 1.6 - 2.5 Strong Positive >2.5 Performed at: [facility] Lab[address] [id number] Electrical Machinist: Epi Buckley MD, Phone: [phone] By: #### CH50, TPO, RA, DARIEL, C3, C4, THYGLOB AB, CARDIO GMA, CCP, B2 GLYPROT, CHROMATIN #### [facility] ,Hyaline casts [#/area] in Urine sediment by Automated countOrdered By: Boo Godoy on 09-25-4918Qqmnila casts Auto (Urine sed) [#/Area]Hyaline casts [#/area] in Urine sediment by Automated count0-8Bu[facility] HospitalINR in Platelet poor plasma by Coagulation assayOrdered By: Boo Godoy on 53-15-5443XWK Coag (PPP) [Relative time]INR in Platelet poor plasma by Coagulation assayBucyrus Community HospitalComment on above:INR Therapeutic Range A) Pre- and Peroperative OAT started two weeks before surgery. NOT HIP SURGERY: 1.5 - 2.5 HIP SURGERY: 2 - 3B) Primary and secondary prevention of venous THROMBOSIS: 2 - 3C) Active venous thrombosis, pulmonary embolismand prevention of recurrent venous thrombosis: 2 - 3D) Prevention of arterial thromboembolismincluding patients with mechanical heart valves: 3 - 4.5JO-1 Antibodyon 74-98-2742SA-1 Antibody<0.5Xcnqnt1.0-0.9The [facility] Comment on above:Performed By: #### CH50, TPO, RA, DARIEL, C3, C4, THYGLOB AB, CARDIO GMA, CCP, B2 GLYPROT, CHROMATIN #### [facility] ,Ketones Test strip Ql (U)Ordered By: Boo Godoy on 69-05-7480Kkeylnw Ql (U) Ketones [Presence] in Urine by Test stripNegSelect Medical Specialty Hospital - Columbus SouthLeukocyte esterase [Presence] in Urine by Test stripOrdered By: Boo Godoy on 57-56-2770Jgssshjoq esterase Test strip Ql (U)Leukocyte esterase [Presence] in Urine by Test stripNegSelect Medical Specialty Hospital - [facility] South Leukocytes [#/area] in Urine sediment by Automated countOrdered By: Boo Godoy on 85-37-8665KZR Auto (Urine sed) [#/Area]Leukocytes [#/area] in Urine sediment by Automated count0-4FPremier Health Atrium Medical CenterLeukocytes [#/volume] corrected for nucleated erythrocytes in Blood by Automated coun Ordered By: Boo Godoy on 10-83-5846XIA corrected for nucl RBC Auto (Bld) [#/Vol]Leukocytes [#/volume] corrected for nucleated erythrocytes in Blood by Automated coun3.8-11.6FPremier Health Atrium Medical CenterLupus Anticoagulant Comp on 55-41-1494Losfwg Prothrombin Time (dPt)35.1Fvnjzk9.0-47.6The [facility] Physician GroupComment on above:Performed By: #### CH50, TPO, RA, DARIEL, C3, C4, THYGLOB AB, CARDIO GMA, CCP, B2 GLYPROT, CHROMATIN #### [facility] ,dPT Confirm Ratio0.80Fcfsby1.00-1.34The [facility] Physician GroupComment on above:Performed By: #### CH50, TPO, RA, DARIEL, C3, C4, THYGLOB AB, CARDIO GMA, CCP, B2 GLYPROT, CHROMATIN #### [facility] ,DRVVT Lupus36.2Zoqxyk7.0-47.0The [facility] Physician GroupComment on above: Performed By: #### CH50, TPO, RA, DARIEL, C3, C4, THYGLOB AB, CARDIO GMA, CCP, B2 GLYPROT, CHROMATIN #### [facility] ,InterpretationComment:Normal.The [facility] Physician GroupComment on above: Result Comment: No lupus anticoagulant was detected. Performed at: - [facility] [id number] Electrical Machinist: Epi Buckley MD, Phone: [phone] PERFORMED BY: [address] [address] PATHOLOGIST RECEIVER/LABORER RHONDA BAUER M.D.Performed By: #### CH50, TPO, RA, DARIEL, C3, C4, THYGLOB AB, CARDIO GMA, CCP, B2 GLYPROT, CHROMATIN #### [facility] ,PTT-LA30.6Nxvkri1.0-43.5The [facility] Physician GroupComment on above:Performed By: #### CH50, TPO, RA, DARIEL, C3, C4, THYGLOB AB, CARDIO GMA, CCP, B2 GLYPROT, CHROMATIN #### [facility] ,Thrombin Time16.3Qpipef4.0-23.0The [facility] Physician GroupComment on above: Performed By: #### CH50, TPO, RA, DARIEL, C3, C4, THYGLOB AB, CARDIO GMA, CCP, B2 GLYPROT, CHROMATIN #### [facility] ,Lymphocytes Auto (Bld) [#/Vol]Ordered By: Boo Godoy on 01-17-2025 Lymphocytes (Bld) [#/Vol]Lymphocytes [#/volume] in Blood by Automated count 1.00-4.8[facility] HospitalLymphocytes/100 WBC Auto (Bld)Ordered By: Boo Godoy on 97-58-8694Cixycixymvm/100 WBC (Bld)Lymphocytes/100 leukocytes in Blood by Automated count.[facility] Auto (RBC) [Entitic mass]Ordered By: Boo Godoy on 39-92-8957QYZ (RBC) [Entitic mass]MCH [Entitic mass] by Automated count24.7-34.3Fire[facility] Medical CenterMCHC Auto (RBC) [Mass/Vol]Ordered By: Boo Godoy on 82-16-3605AZSV (RBC) [Mass/Vol]MCHC [Mass/volume] by Automated count32.0-35.0[facility] HospitalMCV Auto (RBC) [Entitic vol]Ordered By: Boo Godoy on 60-63-0545CKZ (RBC) [Entitic vol]MCV [Entitic volume] by Automated -765 [facility] HospitalMonocytes Auto (Bld) [#/Vol]Ordered By: Boo Godoy on 73-69-4139Cszwdqjwm (Bld) [#/Vol]Automated blood monocyte count 0.0-0.8[facility] HospitalMonocytes/100 WBC Auto (Bld)Ordered By: Boo Godoy on 74-62-6666Zqlrwjqyp/100 WBC (Bld)Automated monocyte %. [facility] HospitalMucus [Presence] in Urine by AutomatedOrdered By: Boo Godoy on 19-07-2033Edjvr Auto Ql (U)Mucus [Presence] in Urine by AutomatedAbnormalBucyrus Community HospitalNeutrophils Auto (Bld) [#/Vol] Ordered By: Boo Godoy on 01-75-6090Dmqobbxifzq (Bld) [#/Vol]Neutrophils [#/volume] in Blood by Automated count1.8-7.7FPremier Health Atrium Medical Center Neutrophils/100 WBC Auto (Bld)Ordered By: Boo Godoy on 01-17-2025 Neutrophils/100 WBC (Bld)Automated neutrophil %.[facility] HospitalNitrite Test strip Ql (U)Ordered By: Boo Godoy on 62-49-9465Yxhswat Ql (U)Nitrite [Presence] in Urine by Test stripNegativeBucyrus Community HospitalNo Panel InformationOrdered By: Boo Godoy on 01-17-2025 Estimated GFR (CKD-EPI)> 60.0 mL/MinBucyrus Community HospitalPharmacy Creatinine Clearance (ChemN/[facility] HospitalNucleated erythrocytes [Presence] in Blood by Automated countOrdered By: Boo Godoy on 98-97-0270Ucgtliirh RBC Auto Ql (Bld)Nucleated erythrocytes [Presence] in Blood by Automated count0-0.5FPremier Health Atrium Medical CenterPlatelet mean volume Auto (Bld) [Entitic vol]Ordered By: Boo Godoy on 35-55-8754Davievro mean volume (Bld) [Entitic vol]Platelet mean volume [Entitic volume] in Blood by Automated count6.3-10.7FPremier Health Atrium Medical CenterPlatelets Auto (Bld) [#/Vol]Ordered By: Boo Godoy on 86-09-6603Dhjoqhilt (Bld) [#/Vol]Platelets [#/volume] in Blood by Automated kwqeb656-392WdllrwwntBucyrus Community Hospital Potassium [Moles/volume] in Serum or PlasmaOrdered By: Boo Godoy on 33-31-7420Pftfhvhvh [Moles/Vol]Potassium [Moles/volume] in Serum or Plasma 3.5-5.1FPremier Health Atrium Medical CenterProtein Test strip (U) [Mass/Vol]Ordered By: Boo Godoy on 34-84-7326Erkaqwm (U) [Mass/Vol]Protein [Mass/volume] in Urine by Test stripNegativeBucyrus Community HospitalProtein [Mass/volume] in Serum or PlasmaOrdered By: Boo Godoy on 43-30-0384Whqjgrs [Mass/Vol]Protein [Mass/volume] in Serum or Plasma6.4-8.9[facility] HospitalProthrombin time (PT)Ordered By: Boo Godoy on 79-07-0034DN Coag (PPP) [Time]Prothrombin time (PT)9.0-12.9[facility] Comment on above:A hematocrit value greater than 55% may lead to inaccurate results in coagulation testing. Patientshaving hematocrit values >55% require a special collection tube for coagulation studies. Please contact the laboratory at [phone] for redraw instructions.RBC Auto (Bld) [#/Vol]Ordered By: Boo Godoy on 11-69-6018LBS (Bld) [#/Vol]Erythrocytes [#/volume] in Blood by Automated count3.60-5.00[facility] HospitalRPR w/rfx to Quant TP Abson 12-36-8707AOQ, Rfx Quant RPRNon-ReactiveNormalNon ReactiveThe [facility] Physician GroupComment on above:Result Comment: Performed at: [address] [id number] Electrical Machinist: Raul Nieves PhD, Phone: [phone] PERFORMED BY: [facility] [place] [address] PATHOLOGIST RECEIVER/LABORER RHONDA BAUER M.D.Performed By: #### CH50, TPO, RA, DARIEL, C3, C4, THYGLOB AB, CARDIO GMA, CCP, B2 GLYPROT, CHROMATIN #### [facility] ,Rheumatoid Factoron 21-22-4357Sjwdvnrolf Factor<10.0Normal<14.0The [facility] GroupComment on above:Result Comment: Performed at: [facility] Lab[address] [id number] Electrical Machinist: Raul Nieves PhD, Phone: [phone] By: #### CH50, TPO, RA, DARIEL, C3, C4, THYGLOB AB, CARDIO GMA, CCP, B2 GLYPROT, CHROMATIN #### [facility] ,Scleroderma 70 Antibodieson 42-95-2930Msbmxawobvj 70 Antibodies0.0Gmziuw5.0-0.9 The [facility] Physician GroupComment on above:Performed By: #### CH50, TPO, RA, DARIEL, C3, C4, THYGLOB AB, CARDIO GMA, CCP, B2 GLYPROT, CHROMATIN #### [facility] ,Serum or plasma albumin/globulin mass ratioOrdered By: Boo Godoy on 25-83-5288Gdxnjbq/Globulin [Mass ratio]Serum or plasma albumin/globulin mass ratioMercy Health St. Elizabeth Youngstown Hospitalerum or plasma anion gap determination Ordered By: Boo Godoy on 23-06-2147Urdgc gap [Moles/Vol]Serum or plasma anion gap determination6.0-15.0[facility] Hospitaljogrens Anti-SSA/SSBon 32-39-1359JO-A/Ro Sjogrens Antibody<0.1Vcogle8.0-0.9The [facility] Physician GroupComment on above:Performed By: #### CH50, TPO, RA, DARIEL, C3, C4, THYGLOB AB, CARDIO GMA, CCP, B2 GLYPROT, CHROMATIN #### [facility] ,SS-B/La Sjogrens Antibody<0.8Vqeygn2.0-0.9The [facility] Physician GroupComment on above:Performed By: #### CH50, TPO, RA, DARIEL, C3, C4, THYGLOB AB, CARDIO GMA, CCP, B2 GLYPROT, CHROMATIN #### [facility] ,Sodium [Moles/volume] in Serum or PlasmaOrdered By: Boo Godoy on 56-65-9414Jgjefb [Moles/Vol]Sodium [Moles/volume] in Serum or Xpzvkp079-[address] [facility] Hospitalpecific gravity Test strip (U) [Rel density] Ordered By: Boo Godoy on 54-97-7143Nelerege gravity (U) [Rel density] Specific gravity of Urine by Test strip1.001-1.030[facility] HospitalThyroid Peroxidase Antibodieson 96-41-7789Jfdjfnx Peroxidase Zzhmboocln814 [IU]/mLHigh0-34The [facility] Community HospitalComment on above:Result Comment: Performed at: [address] [id number] Electrical Machinist: Raul Nieves PhD, Phone: [phone] By: #### CH50, TPO, RA, DARIEL, C3, C4, THYGLOB AB, CARDIO GMA, CCP, B2 GLYPROT, CHROMATIN #### [facility] ,Thyroid Stimulating Hormoneon 64-17-1306BTQ Qn0.04 m[IU]/LLow0.45-5.33The [facility] Community HospitalComment on above:Result Comment: PERFORMED BY: [address] [place] [address] PATHOLOGIST RECEIVER/LABORER RHONDA BAUER M.D.Performed By: #### CH50, TPO, RA, DARIEL, C3, C4, THYGLOB AB, CARDIO GMA, CCP, B2 GLYPROT, CHROMATIN #### [facility] ,Thyrotropin [Units/volume] in Serum or PlasmaOrdered By: Boo Godoy on 07-26-0389CMU QnThyrotropin [Units/volume] in Serum or PlasmaLow0.45-5.33 [facility] HospitalThyroxine (T4) free [Mass/volume] in Serum or PlasmaOrdered By: Boo Godoy on 31-18-6768Azqp T4 [Mass/Vol]Thyroxine (T4) free [Mass/volume] in Serum or PlasmaHigh0.61-1.12[facility] HospitalUrea nitrogen [Mass/volume] in Serum or PlasmaOrdered By: Boo Godoy on 20-71-3543Bnlv nitrogen [Mass/Vol]Urea nitrogen [Mass/volume] in Serum or Plasma7-[facility] HospitalUrobilinogen Test strip (U) [Mass/Vol]Ordered By: Boo Godoy on 49-65-0841Vxazigstpbkt (U) [Mass/Vol] Urobilinogen [Mass/volume] in Urine by Test stripNormalBucyrus Community HospitalWBC Auto (Bld) [#/Vol]Ordered By: Boo Godoy on 52-50-9960MKP (Bld) [#/Vol]Leukocytes [#/volume] in Blood by Automated count3.8-11.6FPremier Health Atrium Medical CenteraPTT in Platelet poor plasma by Coagulation assayOrdered By: Boo Godoy on 72-76-5535mZIQ Coag (PPP) [Time]Activated partial thromboplastin time (aPTT) in platelet poor plasma by coagulation a25.1-36.5 [facility] HospitalComment on above:A hematocrit value greater than 55% may lead to inaccurate results in coagulation testing. Patientshaving hematocrit values >55% require a special collection tube for coagulation studies. Please contact the laboratory at [phone] for redraw instructions. pH Test strip (U)Ordered By: Boo Godoy on 76-89-3352zZ (U)pH of Urine by Test strip5.0-9.0[facility] HospitalUS PELVIC COMPLETE W/ TVon [id number] PELVIC COMPLETE W/ TVEXAM: US PELVIS HISTORY: Constant pelvic pain x 2 months. COMPARISON: None available. TECHNIQUE: Two-dimensional transabdominal grayscale ultrasound imaging of the pelvis was performed.Color flow Doppler imaging of the ovaries was [...] II, MD, PHD at 22-Dec-2024 10:37:30 AM [facility] TeleradiologyNormalNot AvailableComment on above:Order Comment: US PELVIS-TRANSVAG IF INDICATED No LMP recorded. Patient is postmenopausal.PR Myocardial Spect Rest/Stress 1 Day on [id number] Myocardial Spect Rest/Stress 1 DayExam Date/Time: 12/19/2024 10:40 EST Reason for Exam: R07.9;Chest pain Report [address] [id number] Nuclear Stress Report Name: CHLOE AGARWAL Study Date: 12/19/2024 08:10 AM Patient Location: REPLACED BY [facility] [place] [facility] [place] 1955 (M/d/yyyy) Gender: Female Age: 69 yrs Ethnicity: T Reason For Study: R07.9;Chest pain Ordering Physician: Lokesh Mcqueen Referring Physician: Lokesh Mcqueen Protocol 57517 Pharmacologic Lexiscan stress with Isotope. Study Protocol: [...] Boo Mcfarland MD Transcribed by: GARY Technologist: [facility] TOMOSYNTHESIS SCREENING BIon [id number], [place] [address] Mammography Report Signed Patient: CHLOE AGARWAL MR#: [id number] : 1955 Acct:[id number] Age/Sex: 69 / F ADM Date: 12/14/24 Loc: MAMMO Attending Dr: Antionette Yang Ordering Physician: Antionette Yang Results: Date of Service: 12/14/24 Follow Up: Procedure(s): MM tomosynthesis screening BI Accession Number(s): [id number] cc: Antionette Yang; Vick Mcghee M.D. Patient Name: CHLOE AGARWAL MR#: [id number] : 1955 Exam Date: 12/14/2024 Ordering Doctor: [...] Treatments None Family Cancers None LOCATION: [facility] BREAST COMPOSITION: There are scattered [...] Signed By: 12/14/24 1148 DD/ 1147 TD/TT: Uncrater:TBHRadiology, Radiologist, - 12/14/2024 [place] [address] Mammography Report Signed Patient: CHLOE AGARWAL MR#: [id number] : 1955 Acct:[id number] Age/Sex: 69 / F ADM Date: 12/14/24 Loc: MAMMO Attending Dr: Antionette Yang Ordering Physician: Antionette Yang Results: Date of Service: 12/14/24 Follow Up: Procedure(s): MM tomosynthesis screening BI Accession Number(s): [id number] cc: Antionette Yang; Vick Mcghee M.D. Patient Name: CHLOE AGARWAL MR#: [id number] : 1955 Exam Date: 12/14/2024 Ordering Doctor: [...] Treatments None Family Cancers None LOCATION: [facility] BREAST COMPOSITION: There are scattered [...] Signed By: 12/14/24 1148 DD/ 1147 TD/TT: Uncrater: [facility] (narrative)[facility] TOMOSYNTHESIS SCREENING BIOrdered By: Radiologist Radiology on 89-30-2764[facility] Work Phone: IGP,APTIMA HPV,AGE GDLNon 16-71-9527UIA GDLN ACOG TESTINGNote.[facility] HealthcareComment on above:TESTS RESULT FLAG UNITS REF RANGE LAB Clinician Provided Cytology Information Source.............Cervix;Endocervix No. of containers..01 ThinPrep Vial Age Sarahyo ACOG Adamaris... Note 01 <21 or >65 or no age provided FLAG LEGEND: L-Low Normal,H-High Normal,LL-Alert Low,HH-Alert High <-Panic Low,>-Panic High,A-Abnormal,AA-Critical Abnormal Performed at: 01 =G [facility] [address] [place] [address] Adelina Nunez MD, PAP IG (IMAGE GUIDED)Note.NOMS HealthcareComment on above:TESTS RESULT FLAG UNITS REF RANGE LAB DIAGNOSIS: 02 NEGATIVE FOR INTRAEPITHELIAL LESION OR MALIGNANCY. CELLULAR CHANGES ASSOCIATED WITH ATROPHY ARE PRESENT. Specimen adequacy: 02 Satisfactory for evaluation. Endocervical component may not be distinguished in cases of atrophy. Performed by: Monique Neely, [place] ([facility]) . 02 Note: Note 03 The [...] <-Panic Low,>-Panic High,A-Abnormal,AA-Critical Abnormal Performed at: 02 [facility] [address] [place] [address] Shakila Ivey PhD, [address] [address] Adelina Nunez MD, Performed at: =[facility] [address] [id number] Electrical Machinist: Adelina Nunez MD, Phone: [phone] Performed at: [facility] Lab[address], [place] [id number] Electrical Machinist: Shakila Ivey PhD, Phone: [phone] BRUSH-SPATULA CERVIX ENDOCERVIX CLINISYNCNOMS HealthcareED Note-Physicianon [id number] Note-PhysicianED Note-Physician Basic Information Opened in error Assessment/PlanNoKettering Health Behavioral Medical CenterComment on above:Result Comment: Electronically Signed By: Qian Jimenes, Darshan H\.br\Date and Time Signed: 11/15/2514:23 ESTBMPon 92-53-6515Atffb gap [Moles/Vol]10 mmol/LNormal6-16[facility] HospitalComment on above:Performed By: #### [id number] #### [facility] Laboratory [address], [place] [address]Lvcxaxf [Mass/Vol]9.2 mg/dLNormal8.9-11.1[facility] Shock Trauma CenterComment on above:Performed By: #### [id number] #### [facility] [address], [place] [address]Jlrczqtv [Moles/Vol]107 mmol/BQoqqml139-037EurtvxOhiohealth Mansfield HospitalComment on above:Performed By: #### [id number] #### [facility] [address], [place] [address]OU6 [Moles/Vol]26 mmol/GXiycvw71-01WxptmbOhiohealth Mansfield Hospital Comment on above:Performed By: #### [id number] #### [facility] [address], [place] [address]Jhdxjvprpg [Mass/Vol]0.7 mg/dLNormal0.5-1.3FSumma Health Wadsworth - Rittman Medical CenterComment on above:Performed By: #### [id number] #### [facility] [address], [place] [address]Buqwlmo [Mass/Vol]105 mg/oEAuovfy42-184YurwjwOhiohealth Mansfield HospitalComment on above:Performed By: #### [id number] #### [facility] [address], [place] [address]Wrlrxymsy [Moles/Vol]4.0 mmol/LNormal3.5-5.3FSumma Health Wadsworth - Rittman Medical CenterComment on above:Performed By: #### [id number] #### [facility] [address], [place] [address]Vatbgz [Moles/Vol]139 mmol/AHpckvy054-125VyvihuOhiohealth Mansfield HospitalComment on above:Performed By: #### [id number] #### [facility] [address], [place] [address]Stsc nitrogen [Mass/Vol]23 mg/dLHigh5-21Ohio[facility] Mansfield HospitalComment on above:Performed By: #### [id number] #### [facility] [address], [place] [address]Mzgx nitrogen/Creatinine [Mass ratio]33 No VhuviMddk01-60EyecpeOhiohealth Mansfield HospitalComment on above:Performed By: #### [id number] #### [facility] [address], [place] [address]OKW w/ Auto Diffon 16-97-4537Iwfpwmkia/100 WBC (Bld)0.8 %Normal 0.0-2.0Ohio[facility]field HospitalComment on above:Performed By: #### [id number] #### [facility] [address] [place] [address]Ezoumfbzc/Leukocytes Auto (Bld) [Pure # fraction]0.1 E9/LNormal 0.0-0.2FSumma Health Wadsworth - Rittman Medical CenterComment on above:Performed By: #### [id number] #### [facility] [address] [place] [address]Oebadufuvdq (Bld) [#/Vol]0.1 E9/LNormal0.0-0.5FSumma Health Wadsworth - Rittman Medical CenterComment on above:Performed By: #### [id number] #### [facility] [address] [place] [address]Xacjagwkgfq/100 WBC (Bld)1.5 %Normal0.0-8.0[facility] Mans[facility] HospitalComment on above:Performed By: #### [id number] #### [facility] [address] [place] [address]Awnrdcknsiu distribution width (RBC) [Ratio]12.7 %Normal 10.9-14.2FSumma Health Wadsworth - Rittman Medical CenterComment on above:Performed By: #### [id number] #### [facility] [address] [place] [address]Qvgpajgxym (Bld) [Volume fraction]36.3 %Xyfkrf16.0-46.0[facility] HospitalComment on above:Performed By: #### [id number] #### [facility] [address] [place] [address]Kogdigmlze (Bld) [Mass/Vol]12.4 g/qTDqeybv38.0-16.0[facility] HospitalComment on above:Performed By: #### [id number] #### [facility] [address] [place] [address]Ypjmlbqdcor (Bld) [#/Vol]0.9 E9/LLow1.0-4.0[facility] HospitalComment on above:Performed By: #### [id number] #### [facility] [address] [place] [address]Ohgmqfvbrbh/100 WBC (Bld)12.6 %Low14.0-50.0[facility] Mans[facility] HospitalComment on above:Performed By: #### [id number] #### [facility] [address] [place] [address] 626[address]CLL (RBC) [Entitic mass]31.5 kjZpsdsr50.0-34.0[facility] HospitalComment on above:Performed By: #### [id number] #### [facility] [address] [place] [address] 295[address]BUSL (RBC) [Mass/Vol]34.1 g/aDShajvz96.4-36.0[facility] HospitalComment on above:Performed By: #### [id number] #### [facility] [address] [place] [address] 886[address]ZST (RBC) [Entitic vol]92.4 wDDuvkiv14.0-100.0[facility] HospitalComment on above:Performed By: #### [id number] #### [facility] [address] [place] [address]27[address]Suxwlzdqz (Bld) [#/Vol]0.7 E9/LNormal0.2-1.0[facility] HospitalComment on above:Performed By: #### [id number] #### [facility] [address] [place] [address]Lyryzpniuqm (Bld) [#/Vol]5.7 E9/LNormal2.0-7.5FSumma Health Wadsworth - Rittman Medical CenterComment on above:Performed By: #### [id number] #### [facility] [address] [place] [address]Mepkhxflitv/100 WBC (Bld)76.3 %High36.0-75.0[facility] HospitalComment on above:Performed By: #### [id number] #### [facility] [address] [place] [address]Uyiugior mean volume (Bld) [Entitic vol]8.2 fLNormal6.4-10.8 [facility] HospitalComment on above:Performed By: #### [id number] #### [facility] [address] [place] [address]44[address]Qzhenpqqd (Bld) [#/Vol]229.0 E9/RUpcswo213.0-500.0[facility] HospitalComment on above:Performed By: #### [id number] #### [facility] [address] [place] [address] 439[address]DEP (Bld) [#/Vol]3.9 E12/LLow4.3-5.9[facility] Comment on above:Performed By: #### [id number] #### [facility] [address] [place] [address] 10[address]ZFG corrected for nucl RBC Auto (Bld) [#/Vol]7.4 E9/LNormal 4.0-11.0[facility] HospitalComment on above:Performed By: #### [id number] #### [facility] [address] [place] [address]Tcacaydqg Note-Nursingon 19-50-8925Xuhtepbgr Note-Nursing Discharge Note-Nursing CHLOE AGARWAL :1955 Visit Date:11/15/2024 Inpatient Discharge Instructions Your Care Team Admitting Physician - Aileen RENEE MD Consulting Physician - [facility] [place]io, XXXX Bryant CANTRELL, Baldomero Reason for Your Visit chest pain Your Diagnosis Chest pain Non-cardiac chest pain HTN (hypertension) Chronic GERD Chest pain Tests Performed Echo Transthoracic Complete XR Chest Single View This Is Your Medications [place] [facility] (Adult Blood Pressure Monitor with Large [...] Tablets By Mouth Every day Pickup at [facility] 11/17 @ 9 am Unchanged clonidine (cloNIDine 0.1 mg tab) 1 Tablets By Mouth 2 times a day 11/16 @ 9 pm Unchanged losartan (losartan 100 mg Tab) 1 Tablets By Mouth At bedtime 11/16 @ 9 pm [facility] (Adult Blood Pressure Monitor with Large Bicep Cuff) See instructions Hypertension Check BP Daily Dx I10 n/a Unchanged naproxen (Aleve 220 mg oral capsule) 2 Capsules By Mouth Every 8 hours as needed for as needed for pain As needed for pain Unchanged pantoprazole (Protonix 40 mg Tab-DR) 1 Tablets By Mouth 2 times a day Chronic GERD 11/16 @9 pm Pharmacy Information [facility]: [address] [place], [place] [id number] [phone] Test Results CBC BMP WBC: 7.4 E9/L [...] by: ??? An injur (more content not included)...[facility] Interdisciplinary Note - Case Manageron 16-71-7619Cmswpyaxwbtjscqnu Note - Case ManagerInterdisciplinary Note - Market Development Manager CRM to room 315 Patient is awake, alert and oriented. Patient is from home with her Spouse. He is her ride at [place]. Patient verified PCP, DME and insurance. Patient [...] a possible DC if cardiac work up negativeNormalOhiohealth Mansfield HospitalComment on above:Result Comment: Electronically Signed By: Leonila Vasquez\.br\Date and Time Signed: 11/16/24 11:14 ESTeGFRon 76-75-2548oWNY86 mL/min/1.73 e1Hdbrzc>=59Ohio[facility] Mansfield HospitalComment on above:Performed By: #### [id number] #### [facility] Laboratory [address] [place] [address]OPRtj 38-71-4622Pkvzm gap [Moles/Vol]12 mmol/LNormal6-16[facility] HospitalComment on above:Performed By: #### [id number] #### [facility] [address], [place] [address]Chzccym [Mass/Vol]9.4 mg/dLNormal8.9-11.1FSumma Health Wadsworth - Rittman Medical CenterComment on above:Performed By: #### [id number] #### [facility] [address], [place] [address]Wcfwbvxa [Moles/Vol]105 mmol/GJmdnyp643-567NtovymOhiohealth Mansfield HospitalComment on above:Performed By: #### [id number] #### [facility] [address], [place] [address]PO0 [Moles/Vol]26 mmol/PTnfcna85-63HcnvknOhiohealth Mansfield Hospital Comment on above:Performed By: #### [id number] #### [facility] [address], [place] [address]Wticquycpk [Mass/Vol]1.0 mg/dLNormal0.5-1.3FSumma Health Wadsworth - Rittman Medical CenterComment on above:Performed By: #### [id number] #### [facility] [address], [place] [address]Ayhzvsm [Mass/Vol]101 mg/nRSesvhy62-738VryilrOhiohealth Mansfield HospitalComment on above:Performed By: #### [id number] #### [facility] [address], [place] [address]Ypyullxgs [Moles/Vol]3.7 mmol/LNormal3.5-5.3FSumma Health Wadsworth - Rittman Medical CenterComment on above:Performed By: #### [id number] #### [facility] [address], [place] [address]Ybopyw [Moles/Vol]139 mmol/MPmdhhj439-099LxfbkiOhiohealth Mansfield HospitalComment on above:Performed By: #### [id number] #### [facility] [address], [place] [address]Pwnh nitrogen [Mass/Vol]27 mg/dLHigh5-21[facility] HospitalComment on above:Performed By: #### [id number] #### [facility] [address] [place] [address]Zwxr nitrogen/Creatinine [Mass ratio]27 No JouoeSxdh21-36BqdpilOhiohealth Mansfield HospitalComment on above:Performed By: #### [id number] #### [facility] [address] [place] [address]JOR w/ Auto Diffon 74-51-3334Gzijomdto/100 WBC (Bld)0.9 %Normal 0.0-2.0[facility] Mansfield HospitalComment on above:Performed By: #### [id number] #### [facility] [address] [place] [address]Taufhdjjc/Leukocytes Auto (Bld) [Pure # fraction]0.1 E9/LNormal 0.0-0.2FSumma Health Wadsworth - Rittman Medical CenterComment on above:Performed By: #### [id number] #### [facility] [address] [place] [address] 94[address]Lpyezxhmcbb (Bld) [#/Vol]0.1 E9/LNormal0.0-0.5FSumma Health Wadsworth - Rittman Medical CenterComment on above:Performed By: #### [id number] #### [facility] [address] [place] [address]38[address]Hzxdbcwnulm/100 WBC (Bld)1.2 %Normal0.0-8.0[facility] HospitalComment on above:Performed By: #### [id number] #### [facility] [address] [place] [address]59[address]Vlzmetrchtz distribution width (RBC) [Ratio]12.5 %Normal 10.9-14.2FSumma Health Wadsworth - Rittman Medical CenterComment on above:Performed By: #### [id number] #### [facility] [address] [place] [address] 687[address]Gkciylitcw (Bld) [Volume fraction]38.3 %Wekxba70.0-46.0[facility] HospitalComment on above:Performed By: #### [id number] #### [facility] [address] [place] [address] 354[address]Efttatxxeu (Bld) [Mass/Vol]13.2 g/rCZeiwig52.0-16.0[facility] HospitalComment on above:Performed By: #### [id number] #### [facility] [address] [place] [address] 443[address]Rsntnzjcuaq (Bld) [#/Vol]1.3 E9/LNormal1.0-4.0[facility] HospitalComment on above:Performed By: #### [id number] #### [facility] [address] [place] [address] 05[address]Cypesqcumvx/100 WBC (Bld)14.1 %Sxmqbo08.0-50.0[facility] HospitalComment on above:Performed By: #### [id number] #### [facility] [address] [place] [address] 53066SRK (RBC) [Entitic mass]31.3 aaWcbeke23.0-34.0[facility] HospitalComment on above:Performed By: #### [id number] #### [facility] [address] [place] [address] 39[address]SGOM (RBC) [Mass/Vol]34.3 g/jLAxlywn80.4-36.0[facility] HospitalComment on above:Performed By: #### [id number] #### [facility] [address] [place] [address] 07003IJP (RBC) [Entitic vol]91.1 oVGbgooq55.0-100.0[facility] HospitalComment on above:Performed By: #### [id number] #### [facility] [address] [place] [address] 65[address]Nmdabryyg (Bld) [#/Vol]0.7 E9/LNormal0.2-1.0[facility] HospitalComment on above:Performed By: #### [id number] #### [facility] [address], [place] [address]Pxeaymwrqsm (Bld) [#/Vol]6.8 E9/LNormal2.0-7.5FSumma Health Wadsworth - Rittman Medical CenterComment on above:Performed By: #### [id number] #### [facility] [address], [place] [address]Nydjmttiqmj/100 WBC (Bld)75.8 %High36.0-75.0[facility] HospitalComment on above:Performed By: #### 3406969 #### [facility] [address], [place] [address]Qaagyuib536.0 E9/CNwtkvd620.0-500.0[facility] Comment on above:Performed By: #### [id number] #### [facility] [address] [place] [address] 264[address]Nxcpkvnq mean volume (Bld) [Entitic vol]7.6 fLNormal6.4-10.8 [facility] HospitalComment on above:Performed By: #### [id number] #### [facility] [address] [place] [address] 14451JLA (Bld) [#/Vol]4.2 E12/LLow4.3-5.9[facility] Comment on above:Performed By: #### [id number] #### [facility] [address] [place] [address] 08377VXQ corrected for nucl RBC Auto (Bld) [#/Vol]9.0 E9/LNormal 4.0-11.0[facility] HospitalComment on above:Performed By: #### 1772087 #### [facility] [address] [place] [address] 156[address]K-Xvusbzr 46-48-8966Wvwvmw D-dimer FEU (PPP) [Mass/Vol]393 CD:2236051910Jseevg443-961Ntsktw [facility] Medical CenterComment on above:Result Comment: This assay is intended for use as an aid in the diagnosis of DVT or PE. These conditions cannot be excluded with certainty solely on the basis of a D- dimer concentration being within the reference range This [...] infections, pneumonia, severe skin infections Liver cirrhosis PregnancyPerformed By: #### [id number] #### [facility] [address] [place] [address]KK Clinical Summaryon 63-37-2109FI Clinical SummaryED Clinical Summary [address] [address] ED Clinical Summary Person Information Name: CHLOE AGARWAL [facility] Age: 69 Years : 1955 Sex: Female Language: Togolese PCP: Vick Mcghee MD Marital Status: Visit Id: Visit Reason: Chest pain; CHEST PAIN, UPPER ABD PAIN Speciality: Acuity: 2 Enc Type: Observation Med Service: Medical Arrival: 11/15/2024 13:13:47 Discharge: LOS: 000 03:45 Checkin: 11/15/2024 13:13:47 Checkout: 11/15/2024 16:58:54 Dispo Type: Admitted as IP to this [facility] EVENTS: Event Name Event Status Request Date/Time [...] 16:55:38 Meds Admin Request 11/15/2024 16:55:38 ADDRESS: [address] [place] [id number] [facility] DOC NOTES: MEDICAL INFORMATION: Prescriptions Given: [...] 2:Non-cardiac chest pain; 3:HTN (hypertension); 4:Chronic GERD Baldomeroer [facility] CenterED Note-Physicianon 20-56-3610LJ Note-Physician ED Note-Physician Basic Information Time Seen: Qian JimenesDarshan 11/15/2024 13:16 Chief Complaint Pt presents to ED with complaints of chest pain radiating into left chest onset days ago. hx of simular episode. History of Present Illness The patient is a 69-year-old female past medical history of hypertension who presented tot emergency room for chest pain. The patient [...] She denies any dizziness or lightheadedness. She isreports occasional cough. The patient states she has [...] <1% risk of major adverse cardiac event in30 days. Medical Decision Making MEDICAL DECISION MAKING Number and Complexity of Problems Differential Diagnosis: [] MDM Data External documents reviewed: [] My EKG [...] Stop date 11/15/24 14:08:00 EST, STAT, Start date11/15/24 14:08:00 EST, 11/15/24 14:08:00 EST nitroglycerin, 0.4 [...] Given aspirin 81 mg (more content not included)...[facility] Comment on above:Result Comment: Electronically Signed By: Darshan Laughlin M.D.\.br\Date and Time Signed: 11/15/2516:14 STACY Note-PhysicianED Note-Physician Basic Information Opened in error Assessment/PlanNoKettering Health Behavioral Medical CenterComment on above:Result Comment: Electronically Signed By: Darshan Laughlin M.D.\.br\Date and Time Signed: 11/15/2514:23 ESTED Patient Education Noteon 85-43-6163CP Patient Education Note ED Patient Education NoteNoJamie Glenbeigh Hospital CenterED Patient Summaryon 95-59-3028DT Patient SummaryED Patient Summary [place] [id number] Patient Discharge Instructions Person Information Name: CHLOE AGARWAL Age: 69 Years Arrival Date: 11/15/2024 13:13:47 Discharge Diagnosis: 1:Chest pain; 2:Non-cardiac chest pain; 3:HTN (hypertension); 4:Chronic GERD Primary Care Physician: Vick Mcghee MD Provider Information Primary Provider: Darshan Laughlin M.D. Advanced Visiting Housekeeper:None The exam and treatment you received in the Emergency Department were for an urgent problem and are not intended as complete care. It is important that you follow up with a doctor, nurse practitioner,or physician???s collections assistant for ongoing care. If your symptoms become worse or you do not improve asexpected and you are unable to reach your [...] opioids can be used to help relieve gkxdtbto-pq-tcddyz pain and are often prescribed following a [...] guidance from the Food and Drug Administration (www.fda.gov/Drugs/ResourcesForYou). ??? Visit www.cdc.gov/drugoverdose to learn about the risks of opioids abuse and overdose. ??? If you believe you may be struggling with addiction, tell your health hospice home care coordinator and askfor guidance or call [facility]???S National Helpline at 9-779-627-DABW. h Source: [place] Department (more content not included)...NormalFisher R Adams Cowley Shock Trauma CenterLipase Levelon 15-70-0316Txuzfq [Catalytic activity/Vol]43 U/XXaedxb37-03 [facility] HospitalComment on above:Performed By: #### [id number] #### [facility] [address], [place] [address]Xnwrrmliizj 06-42-8121Tzhtffisi [Mass/Vol]2.0 mg/dLNormal 1.3-2.4FSumma Health Wadsworth - Rittman Medical CenterComment on above:Performed By: #### [id number] #### [facility] [address], [place] [address]OL & PTTon 20-99-8711sMEX Coag (PPP) [Time]30.1 second(s)Normal 25.1-36.5FSumma Health Wadsworth - Rittman Medical CenterComment on above:Result Comment: Parameter 15 days - 4 weeks 1 - [...] reagent and instrumentation as [facility]. Currently there are no coagulation studies available worldwide for children to 14 days, andno normal ranges. Heparin therapeutic range (represented by Anti-Factor Xa activity of 0.2 - 0.4 U/mL) corresponds to PTT of 56.6 - 109.0 sec.Performed By: #### [id number] #### [facility] [address], [place] [address]UPQ Coag (PPP) [Relative time]0.98 {INR}Invalid Interpretation Jorg[facility] Shock Trauma CenterComment on above:Result Comment: INR results are specifically intended to assess patients stabilized on long-term Anticoagulation therapy suggested INR???s ???Less Intensive Anticoagulation??? 2.0 ??? 3.0 Conventional Range 3.0 ??? 4.5Performed By: #### [id number] #### [facility] [address], [place] [address]TG Coag (PPP) [Time]11.0 second(s)Normal9.4-12.5FSumma Health Wadsworth - Rittman Medical CenterComment on above:Result Comment: 15 days - 4 weeks 1 - [...] reagent and instrumentation as [facility] Currently there are no coagulation studies available worldwide for children to 14 days, andno normal ranges.Performed By: #### [id number] #### [facility] [address], [place] [address]Cbrotbif 0 Hr.on 97-89-7618Pcmvajzp HS4.50 pg/mLLow10.10-27.10 [facility] HospitalComment on above:Result Comment: The 95% CI (Confidence Interval) PPV (Positive Predictive Value) for myocardial infarction in females is 38 pg/mL, in males 51 pg/mL. The results should be used in conjunction with clinical conditions of myocardial infarction. (Access High Sensitivity Troponin I Instructions For Use, [employer]May 2018)Performed By: #### [id number] #### [facility] [address], [place] [address]Fmimhvxt 1 Hr.on 00-09-3014Enrqvajw HS4.80 pg/mLLow10.10-27.10 [facility] HospitalComment on above:Order Comment: 1441Result Comment: The 95% CI (Confidence Interval) PPV (Positive Predictive Value) for myocardial infarction in females is 38 pg/mL, in males 51 pg/mL. The results should be used in conjunction with clinical conditions of myocardial infarction. (Access High Sensitivity Troponin I Instructions For Use, [employer]May 2018)Performed By: #### [id number] #### [facility] [address], [place] [address]Jliwsjdm 3 Hr.on 84-19-4627Xmwpqnot HS5.20 pg/mLLow10.10-27.10 [facility] HospitalComment on above:Result Comment: The 95% CI (Confidence Interval) PPV (Positive Predictive Value) for myocardial infarction in females is 38 pg/mL, in males 51 pg/mL. The results should be used in conjunction with clinical conditions of myocardial infarction. (Access High Sensitivity Troponin I Instructions For Use, [employer]May 2018)Performed By: #### [id number] #### [facility] [address], [place] [address]Twhsxffo 6 Hr.on 80-20-3808Buxzarqb HS6.30 pg/mLLow10.10-27.10 [facility] HospitalComment on above:Result Comment: The 95% CI (Confidence Interval) PPV (Positive Predictive Value) for myocardial infarction in females is 38 pg/mL, in males 51 pg/mL. The results should be used in conjunction with clinical conditions of myocardial infarction. (Access High Sensitivity Troponin I Instructions For Use, [employer]May 2018)Performed By: #### [id number] #### [facility] [address], [place] [address]BJ Chest Single Viewon 09-55-5304SD Chest Single ViewExam Date/Time: 11/15/2024 13:43 EST Reason for Exam: Chest pain Report IMPRESSION: NO ACUTE CARDIOPULMONARY DISEASE. CLINICAL HISTORY: Chest pain COMPARISON: 05/08/2024 Findings: Osseous structures intact. Cardiopericardial silhouette normal. Pulmonary vasculature normal. Lungs clear. Ordering Provider: Darshan Laughlin FINAL REPORT Dictated: 11/15/2024 2:18 pm Stephen Baldwin MD Signed (Electronic Signature): 11/15/2024 2:18 pm Signed by: Stephen Baldwin MD Transcribed by: SCOTTY Technologist: Christina LORDOhiohealth Mansfield HospitaleGFRon 60-67-6824xKQU50 mL/min/1.73 w7Zgyajn>=59Ohio[facility]field HospitalComment on above:Performed By: #### [id number] #### [facility] [address], [place] [address]Muent and Vascular Office/Clinic Noteon 01-69-2792Iewhi and Vascular Office/Clinic NoteHeart and Vascular Office/Clinic Note Chief Complaint 1 [...] stopped the medication. Amlodipine 5 mg was s tarted as placed, but patient reports that she also stopped that due to leg cramps Patient has elevated blood pressure in the office today. She is compliant losartan and metoprolol, but is not taking any other medications for blood pressure at this time. Patient reports she has nottaken her blood pressure at home because she gets anxious about causes her blood pressure to be higher. Patient reports that since having HCTZ, her leg cramps have completely resolved. Patient denieschest pain, shortness of breath, heart palpitations, dizziness/lightheadedness, [...] not require any further evaluation of her coronaryarteries as the source of her chest pain. [...] taking HCTZ and her blood pressure was well- controlled on the medication, however she states it is getting significantly grams from the med stop it. She was started on amlodipine shortly after and she also felt that the medication gave her leg cramps. After discussion with the patient, thinking that the HCTZ was still in her system and leg cramps were not coming from amlodipine. So patient is willing to startback up on amlodipine 5 mg daily to see if that helps her blood pressure and she will call if she has issues with the medication. If patient is still does have cramps from amlodipine, would avoid anyother diuretics and potentially send in clonidine for patient Ordered: amlodipine, 5 mg = 1 tab(s), Oral, Daily, # 30 tab(s), Refills(s) 2, Pharmacy: [facility], 152, cm, 10/05/24 11:36:00 EST, Height/Length Dosing, 75.8, kg, 10/05/24 11:40:00 EST, Weight Dosing Follow-up with me in 3 months or sooner if needed Portions of this record may have been created with voice recognition artificial intelligence software, specifically Genometry, Secoo and or Faveous. Substitutions may have occurred due to the [...] disease Sinus drainage Procedure (more content not included)...[facility] Hospital for RehabilitationComment on above:Result Comment: Electronically Signed By: Lokesh Mcqueen PA-C\.elmo\Date and Time Signed: 10/05/24 13:02 Amanda 09-02-2024 Specimen: [id number] Received: 09/05/24-1254 Status: VIRGILIO Bowen Num: [id number] Spec Type: Cytology Subm Dr: Ryan Vazquez MD Tissues: A FNA SLIDES NOPATH (RT THYROID) Procedures: Cyto Int and Re, PAPSTN/5 Age/ Patient Sex Location Account Attending Physician Chloe Agarwal 68/F LABELL [id number] NON STAFF SPEC NUM: [id number] RECD: 09/05/24 STATUS: VIRGILIO BOWEN NUM: [id number] MADHAV: 09/02/24- [facility] DR: Ryan Vazquez MD ENTERED: 09/05/24-[address] [facility] [address]: Heavenly Thao SPEC TYPE: Cytology DEPT: [facility] NCYT ENTERED BY: [id number] RECV BY: [id number] ORDERED: Cyto Int and Re, PAPSTN/5 ORDERED: Cyto Int and Re, PAPSTN/5 Pathological Diagnosis Nodule, right thyroid, fine needle aspiration:? Unsatisfactory for evaluation. Too few epithelial cells. [place]?Category?I Clinical Information US guided FNA Gross Description Received fixed in Cytolyt is 30 ml very pale pink clear fixed fluid for cytology said to have been obtained as Right thyroid nodule mid. ThinPrep preparations are prepared for microscopic examination. Also received are 4 spray fixed smeared slides and a Veracyte vial stored at -20 for microscopic examination. (TN/fl) CPT Codes 31522 Specimen: [id number] Received: 09/05/24 Status: VIRGILIO Bowen Num: [id number] Spec Type: Cytology Subm Dr: Ryan Vazquez MD Tissues: A FNA SLIDES NOPATH (RT THYROID) Procedures: Cyto Int and Re, PAPSTN/5 Patient: Chloe Agarwal [id number] (Continued) Signed (signature on file) Rhonda Bauer MD 09/06/24 1815[facility] Physician GroupCT Spine Lumbar w/ Contraston 83-90-6766IZ Spine Lumbar w/ ContrastExam Date/Time: 08/19/2024 10:01 EDT Reason for Exam: [...] REPORT Dictated: 08/19/2024 11:53 am Landon Wilkinson MD. Signed (Electronic Signature): 08/19/2024 11:53 am Signed by: Landon Wilkinson MD Transcribed by: DP Technologist: DPR Technical Comments GFR (mL/min/1/73m2) >60 Contrast: Isovue 300 Contrast amount in ml's: 0NormalFisher R [facility] Shock Trauma CenterMain OR PACU II Recordon 25-56-3588Jeur OR PACU II RecordMain OR PACU II Record PACU Phase II Document Type FT Summary Primary Physician: WALE XXXX Finalized Date/Time: 08/19/24 14:04:04 Pt. Name: CHLOE AGARWAL/Sex: 1955 Female Med Rec #: [id number] Physician: SAM [employer] #: [id number] Pt. Type: O Room/Bed: / Admit/Disch: 08/19/24 [...] and monitors body temperature Evaluates postoperative respiratory statusEvaluates postoperative cardiac status Evaluates postoperative neurological status [...] individualized perioperative plan of care The patient's rightto privacy is maintained The patient's value system, [...] with or improved from baseline levels established preoperativelyThe patient's cardiovascular status is consistent with or improved from baseline levels established preoperatively The patient's neurological status is consistent with or improved from baseline levels established preoperatively The patient demonstrates and/or reports adequate pain control throughout the perioperative period The patient received appropriate medication(s), safely administered during the perioperativeperiod Finalized By: Monika Sales RN Document Signatures Signed By: Monika Sales RN 08/19/24 14:04[facility] RehabilitationMain OR Preoperative Recordon 04-62-4658Nkau OR Preoperative RecordMain OR Preoperative Record Holding Area Document Type FT Summary Primary Physician: WALE, XXXX Finalized Date/Time: 08/19/24 08:06:37 Pt. Name: CHLOE AGARWAL/Sex: 1955 Female Med Rec #: [id number] Physician: SAM [employer] Financial #: [id number] Pt. Type: O Room/Bed: / Admit/Disch: 08/19/24 [...] or her perioperative plan of care The patient'sright to privacy is maintained Surgery Checklist FT [...] RN 08/19/24 08:06 Monika Sales RN 08/19/24 08:06Normal [facility] HospitalXR Myelography Lumbosacralon 51-05-4651FM Myelography LumbosacralExam Date/Time: 08/19/2024 09:59 EDT Reason for Exam: [...] Ka,r in mGy = 43.30 DAP = 869.87NormalOhiohealth Mansfield HospitalHeart and Vascular Office/Clinic Noteon 08-17-8080Gwjwz and Vascular Office/Clinic NoteHeart and Vascular Office/Clinic Note Chief Complaint 6 [...] for the rest of the day. She experiencedleg cramps in 2020. She continues to take [...] stress, poor sleep, dehydration, or diuretic medication. Lightexercise, stretching, and walking were recommended, along with [...] nodule to confirm the diagnosis. Blood work appearednormal, but a biopsy is recommended to be 100% certain. 5. Medication Management. Medications were refilled, including losartan and a diuretic for blood pressure management. The patient reports frequent urination at night, which may be related to the diuretic. Portions of this record may have been created with voice recognition artificial intelligence software, specifically Genometry, Secoo and or Faveous. Substitutions may have occurred due to the inherent limitations of voice recognition and artificial intelligence software. ATTESTATION: Documentation services were performed after patient or guardian consented to allow [employer] to record this visit. ASHLEIGH bi specialist and provider reviewed before signing. ASHLEIGH: Malinda Sands Follow-up No qualifying data available Problem List/Past Medical History Ongoing BMI 34.0-34.9,adult Chest pain due to GERD Chronic GERD Duodenogastric bile reflux Dysphagia Epigastric pain Gastritis H/O: osteoarthritis Hiatal hernia with gastroesophag (more content not included)...[facility] Hospital for RehabilitationComment on above:Result Comment: Electronically Signed By: Vincent CANTRELL, Willie Tovar\.br\Date and Time Signed: 07/16/24 07:52 EDT\.br\Electronically Co-Signed By: Nanette Rodrigues\.br\Date and Time Co- Signed: 07/13/24 17:16 EDTXR Spine Lumbar Complete Including Bendion 07-11-2024 XR Spine Lumbar Complete Including BendiExam Date/Time: 07/06/2024 17:29 EDT Reason for Exam: [...] Ka,r in mGy = na DAP = naNormalBucyrus Community Hospital Urineon 56-74-8504Yvynxcbo identified Cx Nom (U)Microbiology PROCEDURE: Urine Culture [R1] SOURCE: U CleanCatch BODY SITE: COLLECTED DATE/TIME: 05/08/2024 08:05 EDT RECEIVED DATE/TIME: 05/08/2024 16:07 EDT START DATE/TIME: 05/08/2024 16:07 EDT FREE TEXT SOURCE: Nelson Solares DO, DO, Nelson Richard FINAL REPORTS Final Report [] Verified Date/Time: 05/10/2024 09:38 EDT <10,000 cfu/ml Mixed skin contaminants Performing Locations R1: This test was performed at: [facility], [address] [place] [address], [address] , , FmktqqIxqychOhioHealth Berger HospitalComment on above:Performed By: #### [id number] #### [facility] [address] [place] [id number] Draw & Holdon 87-62-6282TD D&HSample drawn for Blood Ba [facility] Hospital for RehabilitationComment on above:Performed By: #### [id number] #### [facility] [address] [place] [address]TYW w/ Auto Diffon 50-67-5726Vhiejiemu/100 WBC (Bld)1.1 %Normal 0.0-2.0[facility] HospitalComment on above:Performed By: #### [id number] #### [facility] [address] [place] [address]Lbxvbutbm/Leukocytes Auto (Bld) [Pure # fraction]0.1 E9/LNormal 0.0-0.2[facility] Trauma CenterComment on above:Performed By: #### [id number] #### [facility] [address] [place] [address]Ejfokbjicqn (Bld) [#/Vol]0.1 E9/LNormal0.0-0.5FSumma Health Wadsworth - Rittman Medical CenterComment on above:Performed By: #### [id number] #### [facility] [address] [place] [address]Sowecwsxwgp/100 WBC (Bld)1.6 %Normal0.0-8.0[facility] HospitalComment on above:Performed By: #### [id number] #### [facility] [address] [place] [address] 01198Zcfjmgzuffl distribution width (RBC) [Ratio]14.1 %Normal 10.9-14.2FSumma Health Wadsworth - Rittman Medical CenterComment on above:Performed By: #### [id number] #### [facility] [address] [place] [address]69[address]Zsrypanqno (Bld) [Volume fraction]38.2 %Gmrybl68.0-46.0[facility] HospitalComment on above:Performed By: #### [id number] #### [facility] [address] [place] [address]Ajfbcfyywl (Bld) [Mass/Vol]13.9 g/bAOfpkta67.0-16.0[facility] HospitalComment on above:Performed By: #### [id number] #### [facility] [address] [place] [address]Cnedexoephb (Bld) [#/Vol]2.3 E9/LNormal1.0-4.0[facility] HospitalComment on above:Performed By: #### [id number] #### [facility] [address] [place] [address]Tcydzsroudh/100 WBC (Bld)26.4 %Fagzjn32.0-50.0[facility] HospitalComment on above:Performed By: #### [id number] #### [facility] [address] [place] [address] 64176QTS (RBC) [Entitic mass]32.6 dlUqglld87.0-34.0[facility] HospitalComment on above:Performed By: #### [id number] #### [facility] [address] [place] [address] 91321BJPV (RBC) [Mass/Vol]36.3 g/eSNvaz26.4-36.0[facility] HospitalComment on above:Performed By: #### [id number] #### [facility] [address] [place] [address] 26386DSH (RBC) [Entitic vol]89.9 kAThwmwr55.0-100.0[facility] HospitalComment on above:Performed By: #### [id number] #### [facility] [address] [place] [address] 04227Bprebztfz (Bld) [#/Vol]0.8 E9/LNormal0.2-1.0[facility] HospitalComment on above:Performed By: #### [id number] #### [facility] [address] [place] [address] 38[address]Cwmoggntfel (Bld) [#/Vol]5.3 E9/LNormal2.0-7.5FSumma Health Wadsworth - Rittman Medical CenterComment on above:Performed By: #### [id number] #### [facility] [address] [place] [address]Qddeydpmhsr/100 WBC (Bld)61.6 %Ugibgi09.0-75.0[facility] HospitalComment on above:Performed By: #### [id number] #### [facility] [address] [place] [address] 378[address]Owijmyfl137.0 E9/HGxirms182.0-500.0[facility] Comment on above:Performed By: #### [id number] #### [facility] [address] [place] [address] 876[address]Xxghxxkc mean volume (Bld) [Entitic vol]8.0 fLNormal6.4-10.8 [facility] HospitalComment on above:Performed By: #### [id number] #### [facility] [address], [place] [address]DEH (Bld) [#/Vol]4.3 E12/LNormal4.3-5.9[facility] HospitalComment on above:Performed By: #### [id number] #### [facility] [address], [place] [address]WKK corrected for nucl RBC Auto (Bld) [#/Vol]8.6 E9/LNormal 4.0-11.0[facility] HospitalComment on above:Performed By: #### [id number] #### [facility] [address], [place] [address]KEPYQBSWXBvfyqrg By: SYSTEM SYSTEM on 05-33-3770Smeacgx [Mass/Vol]4.4 g/dLNormal3.3 - 5.0 gm/dLRemisol ChemAlbumin/Globulin [Mass ratio] 1.5 {ratio}Normal1.1 - 2.2Remisol ChemALP [Catalytic activity/Vol]59 [iU]/d Bdrpoi67 - 98 Int._Unit/LRemisol ChemALT No additional P-5'-P [Catalytic activity/Vol]18 [iU]/dNormal6 - 46 Int._Unit/LRemisol ChemAnion gap [Moles/Vol] 14 mmol/LNormal6 - 16 mEq/LRemisol ChemAST [Catalytic activity/Vol]18 [iU]/d Normal5 - 43 Int._Unit/LRemisol ChemBilirubin [Mass/Vol]1.1 mg/dLNormal0.0 - 1.1 mg/dLRemisol ChemCalcium [Mass/Vol]9.9 mg/dLNormal8.9 - 11.1 mg/dLRemisol Chem Chloride [Moles/Vol]103 mmol/KNhmmpp435 - 111 mmol/LRemisol ChemCO2 [Moles/Vol] 26 mmol/UTpuvrv00 - 31 mmol/LRemisol ChemCreatinine [Mass/Vol]0.8 mg/dLNormal0.5 - 1.3 mg/dLRemisol LavjlXLM09 mL/min/1.73 x5Thyeig>=59mL/min/1.73 o2Vqqmbio ChemGlobulin (S) [Mass/Vol]2.9 g/dLNormal1.4 - 4.0 gm/dLRemisol ChemGlucose [Mass/Vol]112 mg/fDTwhjqj76 - 199 mg/dLRemisol ChemMagnesium [Mass/Vol]2.2 mg/dL Normal1.3 - 2.4 mg/dLRemisol ChemPotassium [Moles/Vol]3.7 mmol/LNormal3.5 - 5.3 mmol/LRemisol ChemProtein [Mass/Vol]7.3 g/dLNormal6.0 - 7.8 gm/dLRemisol Chem Sodium [Moles/Vol]139 mmol/CVpnwin758 - 145 mmol/LRemisol ChemTroponin HS6.20 pg/mLLow10.10 - 27.10 pg/mLRemisol ChemComment on above:Interpretive Data: The 95% CI (Confidence Interval) PPV (Positive Predictive Value) for myocardial i nfarction in females is 38 pg/mL, in males 51 pg/mL. The results should be used in conjunction withclinical conditions of myocardial infarction. (Access High Sensitivity Troponin I Instructions For Use, Demetra Hurley, May 2018)Urea nitrogen [Mass/Vol]22 mg/dLHigh5 - 21 mg/dLRemisol ChemUrea nitrogen/Creatinine [Mass ratio]28 mg/vhOjix72 - 20Remisol ChemCHEMISTRYOrdered By: Heavenly Larios on 18-57-6459Moqphqf [Mass/Vol]111 mg/mCFplt42 - 99 mg/dLSAINT [facility] [place] POC SubsectionComment on above:Result Comment: Notified RN/PITO Device SN [id number] 1Invalid Interpretation [facility] POC SubsectionPOC User [id number] 1Invalid Interpretation CodeSAINT [facility] POC SubsectionPOC UsernamCLAUS Colmenares Invalid Interpretation CodeSAINT [facility] POC SubsectionCMPon 60-67-4647Jzpmgep [Mass/Vol] 4.4 g/dLNormal3.3-5.0[facility] Trauma CenterComment on above:Performed By: #### [id number] #### [facility] [address], [place] [address]Xjdwcmn/Globulin (S) [Mass conc ratio]1.1Byuznw0.1-2.2[facility] Medical CenterComment on above:Performed By: #### [id number] #### [facility] [address], [place] [address]YHU [Catalytic activity/Vol]59 Int._Unit/OXbasca96-49LwyrmfOhiohealth Mansfield HospitalComment on above:Performed By: #### [id number] #### [facility] [address], [place] [address]CTS No additional P-5'-P [Catalytic activity/Vol]18 Int._Unit/L Normal6-46Ohio[facility] HospitalComment on above:Performed By: #### [id number] #### [facility] [address], [place] [address]Jdxia gap [Moles/Vol]14 mmol/LNormal6-16[facility] HospitalComment on above:Performed By: #### [id number] #### [facility] [address], [place] [address]EXK [Catalytic activity/Vol]18 Int._Unit/LNormal5-43[facility] HospitalComment on above:Performed By: #### [id number] #### [facility] [address], [place] [address]Omgxrvtnh [Mass/Vol]1.1 mg/dLNormal0.0-1.1FSumma Health Wadsworth - Rittman Medical CenterComment on above:Performed By: #### [id number] #### [facility] [address], [place] [address]Pbxkgjc [Mass/Vol]9.9 mg/dLNormal8.9-11.1FSumma Health Wadsworth - Rittman Medical CenterComment on above:Performed By: #### [id number] #### [facility] [address], [place] [address]Tvsrcgrt [Moles/Vol]103 mmol/ECndqys351-125XtahhsOhiohealth Mansfield HospitalComment on above:Performed By: #### [id number] #### [facility] [address], [place] [address]BG5 [Moles/Vol]26 mmol/DGzmlyn76-32ClutaxOhiohealth Mansfield Hospital Comment on above:Performed By: #### [id number] #### [facility] [address], [place] [address]Vwflcoawib [Mass/Vol]0.8 mg/dLNormal0.5-1.3FSumma Health Wadsworth - Rittman Medical CenterComment on above:Performed By: #### [id number] #### [facility] [address], [place] [address]Zregarxz (S) [Mass/Vol]2.9 g/dLNormal1.4-4.0[facility] HospitalComment on above:Performed By: #### [id number] #### [facility] [address], [place] [address]Kryswvm [Mass/Vol]112 mg/pWSripeh82-948VvfzirOhiohealth Mansfield HospitalComment on above:Performed By: #### [id number] #### [facility] [address], [place] [address]Djboshpgt [Moles/Vol]3.7 mmol/LNormal3.5-5.3FSumma Health Wadsworth - Rittman Medical CenterComment on above:Performed By: #### [id number] #### [facility] [address] [place] [address]Fxgkjdh [Mass/Vol]7.3 g/dLNormal6.0-7.8[facility] HospitalComment on above:Performed By: #### [id number] #### [facility] [address], [place] [address]Jebgma [Moles/Vol]139 mmol/EAnofbw874-845WbjqceOhiohealth Mansfield HospitalComment on above:Performed By: #### [id number] #### [facility] [address], [place] [address]Fdzb nitrogen [Mass/Vol]22 mg/dLHigh5-21Ohio[facility]field HospitalComment on above:Performed By: #### [id number] #### [facility] [address], [place] [address]Wznn nitrogen/Creatinine [Mass ratio]28 No XfdcxReza78-01FcyabnOhiohealth Mansfield HospitalComment on above:Performed By: #### [id number] #### [facility] [address] [place], [place] [address]BNDZOTKJZTYAujljrl By: Yissel Amos on 51-67-2424cLAJ Coag (PPP) [Time]30.0 zFkvsgl13.1 - 36.5 second(s)[facility] Auto CoagComment on above: Interpretive Data: Parameter 15 days - 4 weeks 1 - [...] reagent and instrumentation as [facility]. Currently there are no coagulation studies available worldwide for children to 14 days, andno normal ranges. Heparin therapeutic range (represented by Anti-Factor Xa activity of 0.2 - 0.4 U/mL) corresponds to PTT of 56.6 - 109.0 sec.INR Coag (PPP) [Relative time]0.97 {INR}Invalid Interpretation CodeSAINT FRANCIS [facility]OS[facility]ITAL [facility] [place] Auto CoagComment on above:Interpretive Data: INR results are specifically intended to assess patients stabilized on long-term Anticoagulation therapy suggested INR s Less Intensive Anticoagulation 2.0 3.0 Conventional Range 3.0 4.5PT Coag (PPP) [Time]10.9 sNormal9.4 - 12.5 second(s) [facility] Auto CoagComment on above:Interpretive Data: 15 days - 4 weeks 1 - [...] reagent and instrumentation as [facility]. Currently there are no coagulation studies available worldwide for children to 14 days, andno normal ranges.CT Head or Brain w/o Contraston 18-56-1508OR Head or Brain w/o ContrastExam Date/Time: 05/08/2024 07:32 EDT Reason for Exam: [...] REPORT Dictated: 05/08/2024 7:55 am Landon Wilkinson MD. Signed (Electronic Signature): 05/08/2024 7:55 am Signed by: Landon Wilkinson MD Transcribed by: SCOTTY Technologist: JoseOhiohealth Mansfield HospitalCapillary Glucose POCon 64-31-7243Xatgeke [Mass/Vol]111 mg/kNWmbv52-53Sttjsg78 Watts StreetComment on above:Result Comment: Notified RN/MDPerformed By: #### [id number] #### [facility] [address] [place] [id number] Clinical Summaryon [id number] Clinical SummaryED Clinical Summary [address] [address] ED Clinical Summary Person Information Name: [facility]LO[facility] [place] Age: 68 Years : 1955 Sex: Female Language: Togolese PCP: Vick Mcghee MD Marital Status: Visit [...] 05/08/2024 09:45:49 05/08/2024 09:45:49 05/08/2024 09:45:49 ADDRESS: [address] [place] [phone] PHYS DOC NOTES: MEDICAL INFORMATION: Prescriptions Given: New Medications [facility], [address], [place] [id number], [phone] cephalexin (Keflex 500 mg Cap) 1 Capsules [...] Tab) 2 Tablets By Mouth every day. [facility] (Adult Blood Pressure Monitor with Large [...] Follow up: With: Address: When: Vick Mcghee [address] [place] [address], [place] [phone] Business (1) In 3 days 05/11/2024 Comments: Call the office of your primary care doctor to arrange for follow-up within the above-stated timeframe. Follow-up with your primary care doctor about this ED visit. You should rev (more content not included)...ChristinaFirsthealth Moore Regional Hospitalluis miguel [facility]unaway Medical CenterED Note-Physicianon [id number] Note-PhysicianED Note-Physician Basic Information Time Seen: Nelson Solares DO 05/08/2024 07:22 Chief Complaint dizziness that started last night around 2200. pt says the room is spinning and she feels nauseous.muscle cramps today History of Present Illness 68-year-old [...] under a lot of stress as her rdmmil-yg-eua just and she has a to attend [...] Stop date 05/08/24 7:45:00 EDT, STAT, Start date05/08/24 7:45:00 EDT, 05/08/24 7:45:00 EDT Add on [...] Screening for malignant neopla (more content not included)...[facility] Hospital for RehabilitationComment on above:Result Comment: Electronically Signed By: Nelson Solares DO\.elmo\Date and Time Signed: 05/08/24 11:48 EDTED Patient Summaryon [id number] Patient SummaryED Patient Summary [address] [address] Patient Discharge Instructions Person Information Name: CHLOE AGARWAL Age: 68 Years Arrival Date: 05/08/2024 07:15:15 Discharge Diagnosis: Acute UTI; Vertigo Primary Care Physician: Vick Mcghee MD Provider Information Primary Provider: Nelson Solares DO Advanced Visiting Housekeeper:None The exam and treatment you received in the Emergency Department were for an urgent problem and are not intended as complete care. It is important that you follow up with a doctor, nurse practitioner,or physician?s collections assistant for ongoing care. If your symptoms [...] Follow-up Instructions: With: Address: When: Vick Hankinskarel [address] [place] [address], [place] [address] Business (1) In 3 days [...] opioids can be used to help relieve bxjogyhq-ba-yutbml pain and are often prescribed following a [...] and have fewer risks and side effects. Optionsmay include: ? Pain relievers such as acetaminophen, [...] Store prescription opioids in (more content not included)...[facility] Hospital for RehabilitationHEMATOLOGYOrdered By: SYSTEM SYSTEM on 31-34-3513Agxvxxgbs/100 WBC (Bld)1.1 %Normal0.0 - 2.0 %Remisol HemeBasophils/Leukocytes Auto (Bld) [Pure # fraction]0.1 E9/LNormal0.0 - 0.2 E9/LRemisol HemeEosinophils (Bld) [#/Vol]0.1 E9/LNormal0.0 - 0.5 E9/LRemisol HemeEosinophils/100 WBC (Bld)1.6 %Normal0.0 - 8.0 %Remisol HemeErythrocyte distribution width (RBC) [Ratio]14.1 %Znrkaz69.9 - 14.2 %Remisol HemeHematocrit (Bld) [Volume fraction]38.2 %Cpvzgx60.0 - 46.0 % Remisol HemeHemoglobin (Bld) [Mass/Vol]13.9 g/cXKbkgbf72.0 - 16.0 gm/dLRemisol HemeLymphocytes (Bld) [#/Vol]2.3 E9/LNormal1.0 - 4.0 E9/LRemisol Heme Lymphocytes/100 WBC (Bld)26.4 %Hjshaf20.0 - 50.0 %Remisol HemeMCH (RBC) [Entitic mass]32.6 vgJwkeyq56.0 - 34.0 pgRemisol HemeMCHC (RBC) [Mass/Vol]36.3 g/dLHigh 31.4 - 36.0 gm/dLRemisol HemeMCV (RBC) [Entitic vol]89.9 gFGxpmab64.0 - 100.0 fL Remisol HemeMonocytes (Bld) [#/Vol]0.8 E9/LNormal0.2 - 1.0 E9/LRemisol Heme Monocytes/100 WBC (Bld)9.3 %Normal4.0 - 14.0 %Remisol HemeNeutrophils (Bld) [#/Vol]5.3 E9/LNormal2.0 - 7.5 E9/LRemisol HemeNeutrophils/100 WBC (Bld)61.6 % Viatze16.0 - 75.0 %Remisol StajKhmiekpx862.0 E9/SUnmekl470.0 - 500.0 E9/LRemisol HemePlatelet mean volume (Bld) [Entitic vol]8.0 fLNormal6.4 - 10.8 fLRemisol HemeRBC (Bld) [#/Vol]4.3 E12/LNormal4.3 - 5.9 E12/LRemisol HemeWBC corrected for nucl RBC Auto (Bld) [#/Vol]8.6 E9/LNormal4.0 - 11.0 E9/LRemisol HemeMagnesiumon 37-51-9160Boxicqqdx [Mass/Vol]2.2 mg/dLNormal1.3-2.4FSumma Health Wad[facility] - [facility] Comment on above:Performed By: #### [id number] #### [facility] [address], [place] [address]ZF & PTTon 17-47-4507wIOC Coag (PPP) [Time]30.0 second(s)Normal 25.1-36.5FSumma Health Wadsworth - Rittman Medical CenterComment on above:Result Comment: Parameter 15 days - 4 weeks 1 - [...] reagent and instrumentation as [facility]. Currently there are no coagulation studies available worldwide for children to 14 days, andno normal ranges. Heparin therapeutic range (represented by Anti-Factor Xa activity of 0.2 - 0.4 U/mL) corresponds to PTT of 56.6 - 109.0 sec.Performed By: #### [id number] #### [facility] [address], [place] [address]MZY Coag (PPP) [Relative time]0.97 {INR}Invalid Interpretation CodeRobbieMedStar Harbor HospitalComment on above:Result Comment: INR results are specifically intended to assess patients stabilized on long-term Anticoagulation therapy suggested INR?s ?Less Intensive Anticoagulation? 2.0 ? 3.0 Conventional Range 3.0 ? 4.5Performed By: #### [id number] #### [facility] [address], [place] [address]TB Coag (PPP) [Time]10.9 second(s)Normal9.4-12.5[facility] Trauma CenterComment on above:Result Comment: 15 days - 4 weeks 1 - [...] reagent and instrumentation as [facility]. Currently there are no coagulation studies available worldwide for children to 14 days, andno normal ranges.Performed By: #### [id number] #### [facility] [address], [place] [address]Jjadruld 0 Hr.on 19-01-1395Jragfhcs HS6.20 pg/mLLow10.10-27.10 [facility] HospitalComment on above:Result Comment: The 95% CI (Confidence Interval) PPV (Positive Predictive Value) for myocardial infarction in females is 38 pg/mL, in males 51 pg/mL. The results should be used in conjunction with clinical conditions of myocardial infarction. (Access High Sensitivity Troponin I Instructions For Use, Demetra Hurley, May 2018)Performed By: #### [id number] #### [facility] [address], [place] [address]FI with Cult Rflxon 63-43-9436Uogktozp Auto Ql (U)TraceNormal TraceFisher R Adams [facility]ley Shock Trauma CenterComment on above:Performed By: #### [id number] #### [facility] [address], [place] [address]Vurlaftni Ql (U)NegativeNormalNegativeOhiohealth Mansfield HospitalComment on above:Performed By: #### [id number] #### [facility] [address], [place] [address]Bvmveke (U)ClearNormalClearOhiohealth Mansfield HospitalComment on above:Performed By: #### [id number] #### [facility] [address], [place] [address]Bokil (U)ColorlessAbnormalYellowOhiohealth Mansfield Hospital Comment on above:Result Comment: Microscopic readings are only performed on those samples that meet specific criteria set forth by [facility].Performed By: #### [id number] #### [facility] [address], [place] [address]Yaslstriuo cells.squamous Auto (Urine sed) [#/Area]0-2Invalid Interpretation CodeOhiohealth Mansfield HospitalComment on above:Performed By: #### [id number] #### [facility] [address], [place] [address]Cpzqjwo Ql (U)Mission HospitalNormalBl[facility] Comment on above:Performed By: #### [id number] #### [facility] [address], [place] [address]Izpcxvbqaz Auto test strip (U) [Mass/Vol]NegativeNormalNegative [facility] HospitalComment on above:Performed By: #### [id number] #### [facility] [address], [place] [address]Zeuqzjy Auto test strip Ql (U)NegativeNormalNegFayette County Memorial HospitalComment on above:Performed By: #### [id number] #### [facility] [address], [place] [address]Rrddirgyk esterase Auto test strip Ql (U)250 Danielle/uLAbnormal [facility] HospitalComment on above:Performed By: #### [id number] #### [facility] [address] [place] [address]Ixwlu Auto Ql (U)NegativeNormalNegativeOhiohealth Mansfield HospitalComment on above:Performed By: #### [id number] #### [facility] [address] [place] [address]Qvsvbwm Auto test strip Ql (U)NegativeNormalNegativeOhiohealth Mansfield HospitalComment on above:Performed By: #### [id number] #### [facility] [address] [place] [address]jF (U)7.0 [pH]Invalid Interpretation Code5.0-9.0Ohio[facility] Mansfield HospitalComment on above:Performed By: #### [id number] #### [facility] [address] [place] [address]Etgjoyd Ql (U)Mission HospitalNormalNegFayette County Memorial Hospital Comment on above:Performed By: #### [id number] #### [facility] [address] [place] [address]UKV Ql (U)6-9Hstejl5-8DygzvdSumma Health Wadsworth - Rittman Medical CenterComment on above:Performed By: #### [id number] #### [facility] [address] [place] [address]Qlqxazvm gravity (U) [Rel density]1.008Invalid Interpretation Code1.005-1.030Ohio[facility] Mansfield HospitalComment on above:Performed By: #### [id number] #### [facility] [address] [place] [address]Kwajouzlvmxt (U) [Mass/Vol]NegativeNormalNegativeOhiohealth Mansfield HospitalComment on above:Performed By: #### [id number] #### [facility] [address] [place] [address]SUE Auto (Urine sed) [#/Area]5-73Ovchjgnm8-2XcyzwuSumma Health Wadsworth - Rittman Medical CenterComment on above:Performed By: #### [id number] #### [facility] [address], [place] [address]Elsd of Urine collection methodClean CatchNormalFisher R Adams [facility] Shock Trauma CenterComment on above:Performed By: #### [id number] #### [facility] [address], [place] [address]HUYUHNUCTZPvjetro By: SYSTEM SYSTEM on 93-64-4171Ujhfzmsa Auto Ql (U)Trace /HPFNormalTrace/HPFFTMC UA Auto SSBilirubin Ql (U)NegativeNormal Negativemg/dLFTMC UA Auto SSClarity (U)Clear (05/08/24 8:05 AM)NormalClearFTMC UA Auto SSColor (U)Colorless 1 *ABN* (05/08/24 8:05 AM)Invalid Interpretation CodeYellowFT UA Auto SSComment on above:Interpretive Data: Microscopic readings are only performed on those samples that meet specific criteria set forth by [facility].Epithelial cells.squamous Auto (Urine sed) [#/Area]0-2 graded/HPF Invalid Interpretation CodeFTMC UA Auto SSGlucose Ql (U)NegativeNormal Negativemg/dLFTMC UA Auto SSHemoglobin Auto test strip (U) [Mass/Vol]Negative NormalNegativemg/dLFTMC UA Auto SSKetones Auto test strip Ql (U)NegativeNormal Negativemg/dLFTMC UA Auto SSLeukocyte esterase Auto test strip Ql (U)250 Danielle/uL Danielle/uLInvalid Interpretation CodeNegativeLeu/uLFTMC UA Auto SSMucus Auto Ql (U) NegativeNormalNegativegraded/LPFFTMC UA Auto SSNitrite Auto test strip Ql (U) NegativeNormalNegativemg/dLFTMC UA Auto SSpH (U)7.0 *NA* (05/08/24 8:05 AM)Invalid Interpretation Code5.0 - 9.0FTMC UA Auto SSProtein Ql (U)NegativeNormalNegativemg/dLFTMC UA Auto SSRBC Ql (U)0-3 graded/HPFNormal 0-3graded/HPFFTMC UA Auto SSSpecific gravity (U) [Rel density]1.008 *NA* (05/08/24 8:05 AM)Invalid Interpretation Code1.005 - 1.030[facility] UA Auto SS Urobilinogen (U) [Mass/Vol]NegativeNormalNegativemg/dLSAINT FRANCIS [facility] UA Auto SSWBC Auto (Urine sed) [#/Area]6-15 graded/HPFInvalid Interpretation Code0-5graded/HPFSAINT FRANCIS [facility] UA Auto SSURINALYSISOrdered By: Nelson Solares on 80-55-2048ZA Spec DescClean Catch (05/08/24 8:05 AM)NormalSAINT FRANCIS [facility] UA Auto SS xr Chest Single Viewon 25-17-5551ED Chest Single View Exam Date/Time: 05/08/2024 07:52 [...] Ka,r in mGy = . DAP = .NormalOhiohealth Mansfield HospitaleGFRon 22-56-3724hQQG63 mL/min/1.73 m2 Normal>=59Ohiohealth Mansfield HospitalComment on above:Order Comment: Order added by Discern Expert.Performed By: #### [id number] #### [facility] [address] [place], [place] [address]Geidv and Vascular Office/Clinic Noteon 19-34-2701Fpdpb and Vascular Office/Clinic NoteChief Complaint 1 month F/U History of Present Illness Chloe Agarwal is a 68-year-old female who presents for evaluation of multiple medical concerns.An adult male accompanies her. She has elevated [...] worse, where she ended up in the ERwith a systolic blood pressure of 200. She [...] her leg cramps. She had blood work doneby her coffee sampler at [place]. Her cholesterol was low. She has been drinking a lot of water. She does not sleep. She was supposed to do a sleep apnea test that Dr. Douglas started last year, 2022. She had the first test for that, but the second test was canceled due to a defect in the machineand not wanting to have negative side effects [...] before bed. I will obtain labs from [place] to make sure she does not have abnormal electrolytes. 3. Sleep apnea. I will check with Dr. Husain regarding CPAP. Follow-up The patient will follow up in 6 months. Portions of this record may have been created with voice recognition artificial intelligence software, specifically Genometry, Secoo and or Faveous. Substitutions may have occurred due to the inherent limitations of voice recognition and artificial intelligence software. ATTESTATION: Documentation services were performed after patient or guardian consented to allow Border[employer] to record this visit. ASHLEIGH bi specialist and provider reviewed before signing. ASHLEIGH: Phoebe Kandace Oseo. Follow-up No qualifying data available Problem List/Past Medical History Ongoing BMI 34.0-34.9,adult Chest pain due to GERD Chronic GERD Duodenogastric bile reflux Dysphagia Epigastric pain Gastritis H/O: osteoarthritis Hiatal hernia with gastroesophageal reflux HTN (hypertension) Osteoporosis Regurgitation of stomach contents Screenin (more content not included)...[facility] Hospital for RehabilitationComment on above:Result Comment: Electronically Signed By: Vincent CANTRELL, Willie Tovar\.br\Date and Time Signed: 01/17/24 10:22 EDT\.br\Electronically Co-Signed By: Florinda Maguire\.br\Date and Time Co-Signed: 12/18/2415:08 ESTOutside Labson 99-76-2994Dukmkcl [id number]#1.00TIFFNoCleveland Clinic Fairview HospitalPhysician Orderon 22-56-4618Mrvtczxxg Order [id number]#1.00[facility] LIVERPO[facility] CITY HOSPITALFChildren's Hospital for RehabilitationAmbulatory Visit Summaryon 16-65-1247Mrymlifuko Visit Summary GLADYS AGARWALHO [place] :1955 Visit Date:12/18/2023 Ambulatory Visit Instructions Your Care Team Attending Physician - Vincent CANTRELL, Willie Tovar Primary Care Physician - Vick Mcghee MD Referring Physician - NONE, XXXX This Is Your Medications List [facility] [place] (Adult Blood Pressure Monitor with Large [...] Tablets By Mouth At bedtime Pickup at [facility] Unchanged meloxicam (meloxicam 15 mg Tab) 1 Tablets By Mouth Every day Unchanged metoprolol (metoprolol 50 mg ER Tab) 2 Tablets By Mouth Every day Unchanged [facility] [place] (Adult Blood Pressure Monitor with Large [...] Mouth 2 times a day Pharmacy Information [facility]: [address] [place], [place] [id number] [phone] Allergies gabapentin (Headache) lisinopril (Coughing) sulfa drugs [...] you for choosing us for your care. [facility] THYROXINE (T4) FREEon 00-34-5784Eeze T4 [Mass/Vol]1.30 ng/dL0.76 - 1.46 ng/dLCass Medical CenterCLINISYNC [facility] LIPID PROFILE (FASTING)on 89-21-6063YIAM HDL RATIO3.0NOIA HealthcareComment on above:3.3 - 4.4 LOW RISK 4.4 - 7.1 AVERAGE RISK 7.1 - 11.0 MODERATE RISK >11.0 HIGH RISK Cholesterol [Mass/Vol]177 mg/dLNINF - 200 mg/dLNOSaint John's Aurora Community HospitalCholesterol in HDL [Mass/Vol]59 mg/dL40 - 60 mg/dLNOIA HealthcareComment on above:> or =60 mg/dl - LOW CARDIOVASCULAR RISK <40 mg/dl - HIGH CARDIOVASCULAR RISK Magnesium [Mass/Vol]96.8 mg/dLNOIA HealthcareComment on above:<100 mg/dl OPTIMAL 100-129 mg/dl NEAR OR ABOVE OPTIMAL 130-159 mg/dl BORDERLINE HIGH 160-189 mg/dl HIGH >190 mg/dl VERY HIGH Magnesium [Mass/Vol]21.2 mg/dLNOSaint John's Aurora Community HospitalTriglyceride [Mass/Vol]106 mg/dL NINF - 150 mg/dLFulton Medical Center- [place] THYROID STIM HORMONEon 64-96-7102MVK Qn0.028 m[IU]/LLowNOSaint John's Aurora Community HospitalCCF CMP (CMP) (FOR REMOTE [facility] USE)on 08-59-6157Jtunyxu [Mass/Vol]3.6 g/dL3.4 - 5.0 g/dLNOSaint John's Aurora Community HospitalALBUMIN GLOBULIN RATIO1.0Cass Medical CenterALP [Catalytic activity/Vol]62 U/L46 - 116 U/LNOMS HealthcareALT [Catalytic activity/Vol]23 U/L14 - 59 U/LNOMS HealthcareAnion gap [Moles/Vol] 12.6 mmol/LNOMS HealthcareAST [Catalytic activity/Vol]17 U/L15 - 37 U/LNOMS HealthcareBilirubin [Mass/Vol]1.2 mg/dLHigh0.2 - 1.0 mg/dLNOMS HealthcareCalcium [Mass/Vol]9.1 mg/dL8.5 - 10.1 mg/dLNOMS HealthcareChloride [Moles/Vol]102 mmol/L98 - 107 mmol/LNOMS HealthcareCO2 [Moles/Vol]30.4 mmol/L21.0 - 32.0 mmol/L NOMS HealthcareCreatinine [Mass/Vol]0.99 mg/dL0.55 - 1.02 mg/dLNOIA Healthcare GFR/1.73 sq M.predicted CKD-EPI (S/P/Bld) [Vol rate/Area]>6060 - PINFNOMS HealthcareGlobulin (S) [Mass/Vol]3.6 g/dLNOMS HealthcareGlucose [Mass/Vol]110 mg/bZMghw22 - 106 mg/dLNOMS HealthcarePotassium [Moles/Vol]4.0 mmol/L3.5 - 5.1 mmol/LNOMS HealthcareProtein [Mass/Vol]7.2 g/dL6.4 - 8.2 g/dLNOMS Healthcare Sodium [Moles/Vol]141 mmol/L136 - 145 mmol/LNOMS HealthcareTBH EGFR-NON AF KMCBURJY48Orz71 - PINFNOMS HealthcareUrea nitrogen [Mass/Vol]31.0 mg/dLHigh7.0 - 18.0 mg/dLNOIA HealthcareUrea nitrogen/Creatinine [Mass ratio]31.3 mg/mgNOMS HealthcareIGP,APTIMA HPV,AGE GDLNon 20-11-3179XKY GDLN ACOG TESTINGNote.[facility] HealthcareComment on above:TESTS RESULT FLAG UNITS REF RANGE LAB Clinician Provided Cytology Information Source.............Cervix;Endocervix No. of containers..01 ThinPrep Vial Age Algo ACOG Adamaris... Note 01 <21 or >65 or no age provided FLAG LEGEND: L-Low Normal,H-High Normal,LL-Alert Low,HH-Alert High <-Panic Low,>-Panic High,A-Abnormal,AA-Critical Abnormal Performed at: 01 =G [facility] [address] Adelina Nunez MD, PAP IG (IMAGE GUIDED)Note.NOMS HealthcareComment on above:TESTS RESULT FLAG UNITS REF RANGE LAB DIAGNOSIS: 02 NEGATIVE FOR INTRAEPITHELIAL LESION OR MALIGNANCY. Specimen adequacy: 02 Satisfactory for evaluation. Endocervical and/or squamous metaplastic cells (endocervical component) are present. Performed by: 02 Vicky Madsen, [place] (ASCP) . 02 Note: Note 02 The Pap smear is a screening test designed to aid in the detection of premalignant and malignant conditions of the uterine cervix. It is not a diagnostic procedure and should not be used as the sole means of detecting cervical cancer. Both false-positive and false-negative reports do occur. Test Methodology: Note 02 The 48domain Prep(R) Iron Melter was unable to read this specimen. Therefore a manual review was performed. FLAG LEGEND: L-Low Normal,H-High Normal,LL-Alert Low,HH-Alert High <-Panic Low,>-Panic High,A-Abnormal,AA-Critical Abnormal Performed at: [address] [address] Adelina Nunez MD, Performed at: =G - [facility] [id number] Electrical Machinist: Adelina Nunez MD, Phone: [phone] Performed at: [facility] [address] [id number] Electrical Machinist: Adelina Nunez MD, Phone: [phone] BRUSH-SPATULA CERVIX ENDOCERVIX [facility] HealthcareNo Panel Informationon 54-09-2553Wjpypayphculqw and review of laboratory resultsNovant Health Consent for Treatmenton 68-13-7800Zroiyew for Treatment [id number]#1.00TIFMain Campus Medical CenterConsultation Noteon 91-91-7653Shtkjpwdapkt NotePatient: CHLOE AGARWAL Age: 68 years Sex: Female [...] and leg cramping. She had some trigger pointinjections in her buttocks by her PCP on 11/12/2023. Unfortunate, she notes no long-term relief. Sherates her pain a 4/10 at this time. [...] QID, # 120 tab(s), Refills(s) 3, Pharmacy: [facility], 152, cm, 04/03/23 9:20:00 EDT, Height/Length Dosing, 80, kg, 04/03/23 9:20:00 EDT, Weight Dosing Protonix 40 mg Tab-DR: 40 mg = 1 tab(s), Oral, BID, # 120 tab(s), Refills(s) 0, Pharmacy: [facility], 152.4, cm, 04/01/21 7:20:00 EDT, Height/Length Dosing, 85.5, kg, 04/01/21 7:20:00EDT, Weight Dosing hydrochlorothiazide 12.5 mg Cap: 12.5 mg = 1 cap(s), Oral, Daily, # 30 cap(s), Refills(s) 6, Pharmacy: [facility], 152, cm, 11/17/23 11:29:00 EST, Height/Length Dosing, 79.6, kg, 11/17/23 11:29:00 EST, Weight Dosing losartan 100 mg Tab: 100 mg = 1 tab(s), Oral, Bedtime, # 90 tab(s), Refills(s) 1, Pharmacy: [facility], 152, cm, 07/14/23 9:26:00 EDT, Height/Length Dosing, 76.9, kg, 07/14/23 9:26:00EDT, Weight Dosing pregabalin 25 mg Cap: 25 mg = 1 cap(s), Oral, BID, start with once a day for 3-5 days. If doing well can go to BID, # 60 cap(s), Refills(s) 0, Pharmacy: [facility], 152, cm, 10/26/23 13:07:00 EST, Height/Length [...] All Problems Chronic GERD / SNOMED CT 685291102 / Confirmed Unilateral primary osteoarthritis, right knee / SNOMED CT 5380176034 / Confirmed Gastritis / SNOMED CT 8390897 / Confirmed Vertigo / SNOMED CT 4931944802 / Confirmed BMI 34.0-34.9,adult / SNOMED CT 831555081 / Confirmed Regurgitation of stomach contents / SNOMED CT 621022355 / Confirmed Osteoporosis / SNOMED CT 269020162 / Confirmed HTN (hypertension) / SNOMED CT 7844413211 / Confirmed Dysphagia / SNOMED CT 60476520 / Confirmed Epigastric pain / SNOMED CT 405955086 / Confirmed Chest pain due to GERD / SNOMED CT 33165224 / Confirmed Screening for malignant neoplasm of colon / SNOMED CT 354122826 / Confirmed H/O: osteoarthritis / SNOMED CT 887778657 / Confirmed Hiatal hernia with gastroesophageal reflux / SNOMED CT 9630242885 / Confirmed Duodenogastric bile reflux / SNOMED CT 77481131 / Confirmed Sigmoid diverticulosis / SNOMED CT 2609737163 / Confirmed Tendonitis / SNOMED CT 26141700 / Confirmed Resolved: GERD - Gastro-esophageal reflux disease / SNOMED CT 8574906418 Resolved: Appendicitis / SNOMED CT 503697033 Resolved: Cough / SNOMED CT 70533236 Resolved: Sinus drainage / SNOMED CT 174170504 Canceled: GERD with apnea / SNOMED CT 3372552137 Objective Vital Signs 11/20/2023 13:11 EST Peripheral [...] 5/5 lower extremity streng (more content not included)...[facility] Hospital for RehabilitationComment on above:Result Comment: Electronically Signed By: Vicky Castillo PA-C\.br\Date and Time Signed: 11/20/23 13:40 ESTOffice/Clinic Note-Physicianon 39-91-2791Qyauhf/Clinic Note-Physician [id number]#1.00Flower HospitalPatient Correspondenceon 74-42-6387Ncxzuml Correspondence [id number]#1.00F[facility] HospitalConsent for Treatmenton 88-00-0285Rphmlzl for Treatment [id number]#1.00Flower HospitalHeart and Vascular Office/Clinic Noteon 89-14-5346Nqeyf and Vascular Office/Clinic NoteHistory of Present Illness Patient is a very pleasant 68-year-old hypertensive female, nondiabetic, non- smoker, referred to our office after she went to the emergency room on 09/02/2021 with abdominal pain radiating into her back. She reportedly had a stress test, echocardiogram and Holter monitor at [facility] prior to her ER visit on 09/02/2021. Troponins were negative x1, and she was assigned a heart score of 4 and discharged home. In addition the patient apparently had a syncopal episode several weeks prior toher presentation, but cannot recall whether she had any chest pain prior to her syncope.. Her echocardiogram done at [place] on 08/20/2021 which showed left ventricular systolic function atthe lower limits of normal with an LVEF [...] took place at an outside facility at [place] on 09/03/2021 which was read as normal. [...] In addition she has a brother in [place] who apparently has coronary disease the specific [...] rash or concerning lesion (more content not included)...[facility] Hospital for RehabilitationComment on above:Result Comment: Electronically Signed By: MISAEL CANTRELL, Landon Mckinley\.br\Date and Time Signed: 11/17/23 11:44 ESTPhysician Orderon 92-26-8954Vpuuyvyrw Order [id number]#1.00TIFFNoKettering Health Behavioral Medical CenterXR Pelvis 1 or 2 Viewson 21-57-3558DJ Pelvis 1 or 2 ViewsExam Date/Time: 10/26/2023 13:48 EST Reason for Exam: [...] Ka,r in mGy = na DAP = [facility]XR Spine Lumbosacral 2 or 3 Viewson 16-70-8840WK Spine Lumbosacral 2 or 3 ViewsExam Date/Time: 10/26/2023 13:48 EST Reason for Exam: [...] [place]ent[place] in mGy = na DAP = naNormalFisher [facility] and Hospitalsent for Treatmenton 10-26-2023 Consent for [id number]#1.00TIFFNormal Dillon [facility] and Hospitalsent for Treatment [id number]#1.00TIFFNoKettering Health Behavioral Medical CenterConsultation Noteon 37-26-6917Qbpecuhnhzon NotePatient: CHLOE AGARWAL Age: 68 years Sex: Female : 1955 Associated Diagnoses: None Author: Vicky Castillo PA-C Subjective Chief complaint 10/26/2023 12:48 EST pain across lower back- down bilat legs (into left groin) . Patient is a 67-year-old female. She has a past medical history significant for lumbar neuritis, lumbar degenerative disc disease, and lumbar spondylolisthesis. She presents today for follow-up afterundergoing a right-sided L5-S1 transforaminal epidural steroid injection. This was done on 10/07/2023 and she states gave her short-term relief but unfortunate, nothing long-term. She is still havinglower back pain with right radiating leg pain [...] QID, # 120 tab(s), Refills(s) 3, Pharmacy: [facility], 152, cm, 04/03/23 9:20:00 EDT, Height/Length Dosing, 80, kg, 04/03/23 9:20:00 EDT, Weight Dosing Protonix 40 mg Tab-DR: 40 mg = 1 tab(s), Oral, BID, # 120 tab(s), Refills(s) 0, Pharmacy: [facility], 152.4, cm, 04/01/21 7:20:00 EDT, Height/Length Dosing, 85.5, kg, 04/01/21 7:20:00EDT, Weight Dosing losartan 100 mg Tab: 100 mg = 1 tab(s), Oral, Bedtime, # 90 tab(s), Refills(s) 1, Pharmacy: [facility], 152, cm, 07/14/23 9:26:00 EDT, Height/Length Dosing, 76.9, kg, 07/14/23 9:26:00EDT, Weight Dosing metoprolol 50 mg ER Tab: 50 mg = 1 tab(s), Oral, Daily, # 90 tab(s), Refills(s) 1, Pharmacy: [facility], 152, cm, 07/14/23 9:26:00 EDT, Height/Length Dosing, 76.9, kg, 07/14/23 9:26:00 EDT, Weight Dosing pregabalin 25 mg Cap: 25 mg = 1 cap(s), Oral, BID, start with once a day for 3-5 days. If doing well can go to BID, # 60 cap(s), Refills(s) 0, Pharmacy: [facility], 152, cm, 10/26/23 13:07:00 EST, Height/Length Dosing, 70.5, kg, 10/26/23 13:07:00 EST, Weigh... Documented Medications Documented Aleve: Refills(s) 0 Multi Vitamin+: Oral, Daily, Refill(s) 0 alendronate 70 mg Tab: TAKE 1 TABLET BY MOUTH 30 MINUTES BEFORE first food once a week, Prophylaxis ropinirole: 0.5 mg, Oral, Refills(s) 0 Problem list: All Problems Chronic GERD / SNOMED CT 473967077 / Confirmed Unilateral primary osteoarthritis, right knee / SNOMED CT 9907213786 / Confirmed Gastritis / SNOMED CT 8916771 / Confirmed Vertigo / SNOMED CT 6555488507 / Confirmed BMI 34.0-34.9,adult / SNOMED CT 855601810 / Confirmed Regurgitation of stomach contents / SNOMED CT 410532986 / Confirmed Osteoporosis / SNOMED CT 556035894 / Confirmed HTN (hypertension) / SNOMED CT 4806081923 / Confirmed Dysphagia / SNOMED CT 87968616 / Confirmed Epigastric pain / SNOMED CT 293268169 / Confirmed Chest pain due to GERD / SNOMED CT 40028188 / Confirmed Screening for malignant neoplasm of colon / SNOMED CT 108637053 / Confirmed H/O: osteoarthritis / SNOMED CT 992345523 / Confirmed Hiatal hernia with gastroesophageal reflux / SNOMED CT 7631784278 / Confirmed Duodenogastric bile reflux / SNOMED CT 53636315 / Confirmed Sigmoid diverticulosis / SNOMED CT 9713728268 / Confirmed Tendonitis / SNOMED CT 02822928 / Confirmed Resolved: GERD - Gastro-esophageal reflux disease / SNOMED CT 1732174257 Resolved: Appendicitis / SNOMED CT 922906971 Resolved: Cough / SNOMED CT 64058014 Resolved: Sinus drainage / SNOMED CT 088853474 Canceled: GERD with apnea / SNOMED CT 7805882407 Objective Vital Signs 10/26/2023 12:48 EST Peripheral Pulse Rate 66 bpm Respiratory Rate 20 br/min Systolic Blood Pressure 143 mmHg HI Diastolic Blood Pressure 88 mmHg Mean Arterial Pressure, Cuff 106 mmHg General: Alert and oriented, No acute distress. Overweight Eye: Normal conjunctiva. HENT: Normocephalic, Normal hearing. Cardiovascular: No edema. Musculoskeletal Nor (more content not included)...[facility] Hospital for RehabilitationComment on above:Result Comment: Electronically Signed By: Vicky Castillo PA-C\.br\Date and Time Signed: 10/26/23 13:22 ESTLegal Correspondence Officeon 46-59-1922Kgacc Correspondence [id number]#1.00TIFFMiami Valley HospitalOffice/Clinic Note-Physicianon 10-26-2023 Office/Clinic Note-[id number]#1.00TIFF [facility] for RehabilitationPatient Correspondenceon 30-50-1759Yxnpgdl [id number]#1.00TIFFChildren's Hospital for RehabilitationPatient Correspondence [id number]#1.00TIFFChildren's Hospital for RehabilitationPatient [id number]#1.00TIFF [facility] for RehabilitationPatient Correspondence [id number]#1.00TIFFChildren's Hospital for RehabilitationPatient History Officeon 10-64-3688Wvrrzdd History Office [id number]#1.00TIFMain Campus Medical CenterPhysician Orderon 51-94-3432Mczqgacva Order [id number]#1.00TIFMain Campus Medical CenterPhysician [id number]#1.00TIFFChristina Dillon [facility] Trauma CenterConsent for Procedure/Surgeryon 86-72-7811Guastah for Procedure/[id number]#1.00TIFCeline R Adams Cowley Shock Trauma CenterConsent for Treatmenton 39-18-3710Sdfgdtr for Treatment [id number]#1.00TIFIshmaelFirsthealth Moore Regional Hospitalluis miguel [facility] Trauma CenterDischarge Instructionson 02-73-0515Ilcqlygot Instructions [id number]#1.00TIFMamiKindred Hospital - Greensboroluis miguel [facility] Trauma CenterIntraOperative Documentson 06-99-0437DlxdiNqifavclh Documents [id number]#1.00[facility]lower HospitalMain OR Intraoperative Recordon 35-68-2580Ypgw OR Intraoperative Record IntraOp Document Type FTPM Summary Primary Physician: Claudio Monroe DO Finalized Date/Time: 10/07/23 09:50:14 Pt. Name: CHLOE AGARWAL/Sex: 1955 Female Med Rec #: [id number] Physician: Claudio Monroe DO Financial #: [id number] Pt. Type: P Room/Bed: / Admit/Disch: 10/07/23 08:38:44 - Institution: Case Times FTPM Entry 1 Patient Times In Room 10/07/23 09:41:00 Out Room 10/07/23 09:50:00 Procedure Times Start 10/07/23 09:44:00 Stop 10/07/23 09:49:00 Anesthesia Times Last Modified By: Lashanda Durant RN 10/07/23 09:49:58 Case Attendance FTPM Entry 1 Entry 2 Entry 3 Case Attendee Claudio Monroe DO, RN, Lashanda Erickson RN, [facility] Role Performed Surgeon - Primary Restorer [employer] - Primary Scrub - Primary Time In 10/07/23 09:41:00 10/07/23 09:41:00 10/07/23 09:41:00 Time Out 10/07/23 09:50:00 10/07/23 09:50:00 10/07/23 09:50:00 Procedure TRANSFORAMINAL EPIDURAL TRANSFORAMINAL EPIDURAL TRANSFORAMINAL EPIDURAL STEROID INJECTIO(Right) STEROID INJECTIO(Right) STEROID INJECTIO(Right) Comments Last Modified By: Lashanda Durant RN, RN, Lashanda Elizalde RN 10/07/23 09:49:59 10/07/23 09:49:59 10/07/23 09:49:59 Entry 4 Case Attendee Faustino Dorado Role Performed Machine Sole Leveler Time In 10/07/23 09:41:00 Time Out 10/07/23 [...] and tissue Entry 1 Skin Integrity Intact, Hansen, Warm, and Skin Abnormality No Dry Outcomes [...] Under Knees Press Point (more content not included)...[facility] for RehabilitationMain OR Preoperative Recordon 24-02-4771Linj OR Preoperative RecordHolding Area Document Type FT Summary Primary Physician: Claudio Monroe DO Finalized Date/Time: 10/07/23 09:09:26 Pt. Name: GLADYS AGARWALHO Lira./Sex: 1955 Female Med Rec #: [id number] Physician: Claudio Monroe DO Financial #: [id number] Pt. Type: P Room/Bed: / Admit/Disch: 10/07/23 [...] or her perioperative plan of care The patient'sright to privacy is maintained Surgery Checklist FTPM [...] Signatures Signed By: Shea Aguirre RN 10/07/23 09:09[facility] for RehabilitationPatient Correspondenceon 17-35-1033Bwmjtpx Correspondence [id number]#1.00TIFFChildren's Hospital for RehabilitationConsent for Treatmenton 27-97-6480Npcksjy for Treatment [id number]#1.00TIFFNormalFishMedStar Harbor HospitalConsultation Noteon 19-81-1881Ygrbarglhclh NotePatient: CHLOE AGARWAL Age: 67 years Sex: Female : 1955 Associated Diagnoses: None Author: Valeri CANTRELL, Demra Leal Subjective Chief complaint 09/22/2023 11:23 EST [...] QID, # 120 tab(s), Refills(s) 3, Pharmacy: [facility], 152, cm, 04/03/23 9:20:00 EDT, Height/Length Dosing, 80, kg, 04/03/23 9:20:00 EDT, Weight Dosing Medrol 4 mg Tab: = 1 packet(s), Oral, As Directed, as directed on package labeling, X 6 day(s), # 21 tab(s), Refills(s) 0, Pharmacy: [facility], 152, cm, 09/22/23 11:39:00 EST, Height/Length Dosing, 70.5, kg, 09/22/23 11:39:00 EST, Weight Dosing Protonix 40 mg Tab-DR: 40 mg = 1 tab(s), Oral, BID, # 120 tab(s), Refills(s) 0, Pharmacy: [facility], 152.4, cm, 04/01/21 7:20:00 EDT, Height/Length Dosing, 85.5, kg, 04/01/21 7:20:00EDT, Weight Dosing losartan 100 mg Tab: 100 mg = 1 tab(s), Oral, Bedtime, # 90 tab(s), Refills(s) 1, Pharmacy: [facility], 152, cm, 07/14/23 9:26:00 EDT, Height/Length Dosing, 76.9, kg, 07/14/23 9:26:00EDT, Weight Dosing metoprolol 50 mg ER Tab: 50 mg = 1 tab(s), Oral, Daily, # 90 tab(s), Refills(s) 1, Pharmacy: [facility], 152, cm, 07/14/23 9:26:00 EDT, Height/Length Dosing, 76.9, kg, 07/14/23 9:26:00 EDT, Weight Dosing Documented Medications Documented Aleve: Refills(s) 0 Multi Vitamin+: Refill(s) 0 alendronate 70 mg Tab: TAKE 1 TABLET BY MOUTH 30 MINUTES BEFORE first food once a week, Prophylaxis ropinirole: 0.5 mg, Oral, Refills(s) 0 Problem list: All Problems BMI 34.0-34.9,adult / SNOMED CT 181112479 / Confirmed Chest pain due to GERD / SNOMED CT 55775000 / Confirmed Chronic GERD / SNOMED CT 336197918 / Confirmed Duodenogastric bile reflux / SNOMED CT 82539095 / Confirmed Dysphagia / SNOMED CT 88594016 / Confirmed Epigastric pain / SNOMED CT 422424663 / Confirmed Gastritis / SNOMED CT 1663525 / Confirmed H/O: osteoarthritis / SNOMED CT 472080593 / Confirmed Hiatal hernia with gastroesophageal reflux / SNOMED CT 7067436724 / Confirmed HTN (hypertension) / SNOMED CT 7432177969 / Confirmed Osteoporosis / SNOMED CT 845307332 / Confirmed Regurgitation of stomach contents / SNOMED CT 860642901 / Confirmed Screening for malignant neoplasm of colon / SNOMED CT 323272797 / Confirmed Sigmoid diverticulosis / SNOMED CT 0200499800 / Confirmed Tendonitis / SNOMED CT 13488634 / Confirmed Unilateral primary osteoarthritis, right knee / SNOMED CT 6250440386 / Confirmed Vertigo / SNOMED CT 1245934322 / Confirmed Objective Vital Signs 09/22/2023 11:23 [...] has returned after she (more content not included)...[facility] Hospital for RehabilitationComment on above:Result Comment: Electronically Signed By: Valeri CANTRELL, Demar Brian\Date and Time Signed: 09/22/23 11:54 ESTOffice/Clinic Note-Physicianon 04-06-8772Njcuxd/Clinic Note-[id number]#1.00TIFMain Campus Medical CenterPatient Correspondenceon 69-39-9315Ugcetjj Correspondence [id number]#1.00TIFMain Campus Medical CenterPatient [id number]#1.00TIFF [facility] for RehabilitationPatient History Officeon 09-42-5748Qwpfmyc History [id number]#1.00TIFFChildren's Hospital for RehabilitationPhysician Orderon 24-69-0133Lvkqfhojx Order [id number]#1.00TIFFChildren's Hospital for RehabilitationConsenton 44-50-0498Hllqopk [id number]#1.00Flower HospitalPatient Eval Forms Officeon 93-40-9706Itrckgr Eval Forms Office [id number]#1.00Flower HospitalPatient Eval Forms [id number]#1.00TIFF [facility] Hospital for RehabilitationConsent for Treatmenton 93-22-6206Tifilqo for [id number]#1.00Flower HospitalCHEMISTRYOrdered By: SYSTEM SYSTEM on 72-65-0861Fcdlc gap [Moles/Vol]12 mmol/LNormal6 - 16 mEq/LFTMC RemisolCalcium [Mass/Vol]9.5 mg/dL Normal8.9 - 11.1 mg/dLSAINT [facility]ANC[facility] [place] RemisolChloride [Moles/Vol]107 mmol/JLyqcwd253 - 111 mmol/LFTMC RemisolCO2 [Moles/Vol]26 mmol/QFntlyh24 - 31 mmol/LFTMC Remisol Creatinine [Mass/Vol]0.7 mg/dLNormal0.5 - 1.3 mg/dLSAINT FRANCIS [facility] [place] RemisolGFR/1.73 sq M.predicted among non-blacks MDRD (S/P/Bld) [Vol rate/Area]96 mL/min/1.73 m2 Normal>=59mL/min/1.73 m2FTMC Chem SGlucose [Mass/Vol]100 mg/aKJrxpdc08 - 199 mg/dLFTMC RemisolPotassium [Moles/Vol]3.6 mmol/LNormal3.5 - 5.3 mmol/LFTMC RemisolSodium [Moles/Vol]141 mmol/YXgeuik657 - 145 mmol/LFTMC RemisolTroponin I.cardiac [Mass/Vol]8.30 pg/mLLow10.10 - 27.10 pg/mLFT RemisolUrea nitrogen [Mass/Vol]19 mg/dLNormal5 - 21 mg/dLFTMC RemisolUrea nitrogen/Creatinine [Mass ratio]27 mg/dfUwbm64 - 20FT RemisolCHEMISTRYOrdered By: Lab ROPUser on 12-98-6298Zzcsgcd [Mass/Vol]109 mg/cPHmdx90 - 99 mg/dLSAINT FRANCIS [facility] [place] POC SubsectionComment on above:Result Comment: Cleaned MeterPOC Device [id number] Interpretation CodeSAINT FRANCIS [facility] POC SubsectionPOC User [id number] Interpretation CodeSAINT FRANCIS [facility] POC SubsectionPOC UsernameMSONIA MOONKASInvalid Interpretation Code [facility] POC SubsectionHEMATOLOGYOrdered By: SYSTEM SYSTEM on 06-05-2023 Basophils/100 WBC (Bld)0.8 %Normal0.0 - 2.0 %[facility] HemeAutoSSBasophils/Leukocytes Auto (Bld) [Pure # fraction]0.1 E9/LNormal0.0 - 0.2 E9/LFTMC HemeAutoSS Eosinophils/100 WBC (Bld)3.4 %Normal0.0 - 8.0 %[facility] HemeAutoSS Eosinophils/Leukocytes Auto (Bld) [Pure # fraction]0.3 E9/LNormal0.0 - 0.5 E9/L [facility] HemeAutoSSLymphocytes/100 WBC (Bld)20.2 %Kyolew37.0 - 50.0 %[facility] HemeAutoSS Lymphocytes/Leukocytes Auto (Bld) [Pure # fraction]1.5 E9/LNormal1.0 - 4.0 E9/L [facility] HemeAutoSSMonocytes/100 WBC (Bld)7.8 %Normal4.0 - 14.0 %[facility] HemeAutoSS Monocytes/Leukocytes Auto (Bld) [Pure # fraction]0.6 E9/LNormal0.2 - 1.0 E9/L [facility] HemeAutoSSNeutrophils/100 WBC (Bld)67.8 %Gszcii90.0 - 75.0 %[facility] HemeAutoSS Neutrophils/Leukocytes Auto (Bld) [Pure # fraction]5.1 E9/LNormal2.0 - 7.5 E9/L [facility] HemeAutoSSHEMATOLOGYOrdered By: Michael Rosado on 61-83-7586Nlmicbclelu distribution width (RBC) [Ratio]13.2 %Pacbfn77.9 - 14.2 %[facility] HemeAutoSS Hematocrit (Bld) [Volume fraction]39.7 %Tbovtc17.0 - 46.0 %[facility] HemeAutoSS Hemoglobin (Bld) [Mass/Vol]13.6 g/uDNpgxsk99.0 - 16.0 gm/dLFTMC HemeAutoSSMCH (RBC) [Entitic mass]29.9 uhXufkun28.0 - 34.0 pgFTMC HemeAutoSSMCHC (RBC) [Mass/Vol]34.2 g/oJJnjsav77.4 - 36.0 gm/dLFTMC HemeAutoSSMCV (RBC) [Entitic vol] 87.5 dMUizzlk64.0 - 100.0 fLFTMC HemeAutoSSPlatelet mean volume (Bld) [Entitic vol]8.2 fLNormal6.4 - 10.8 fLFTMC HemeAutoSSPlatelets (Bld) [#/Vol]239.0 E9/L Xlfwfe682.0 - 500.0 E9/LFTMC HemeAutoSSRBC (Bld) [#/Vol]4.5 E12/LNormal4.3 - 5.9 E12/LFTMC HemeAutoSSWBC corrected for nucl RBC Auto (Bld) [#/Vol]7.5 E9/LNormal 4.0 - 11.0 E9/LFTMC HemeAutoSSCREATININEon 47-25-1149Qfjaarkpop [Mass/Vol]0.89 mg/dLNormal0.55-1.02The [facility] CenterComment on above:Performed By: #### CREA #### [facility] [address] [address] [address] Lorraine ChungGFR-AF [place]>60Normal>=60The [facility] CenterComment on above:Performed By: #### CREA #### [facility] [address] [address] [address] Peters ChangEGFR-NON AF [place]>60Normal>=60The [facility] CenterComment on above:Performed By: #### CREA #### [facility] [address] [address] [address] Peters ChangCT ABD/PELV W CONon 86-94-0274LN ABD/PELV W CONEXAMINATION: CT ABD/PELV W CON HISTORY: Left upper quadrant pain [...] Electronically authenticated by: RYAN VAZQUEZ Date: 2023-03-03 10:08NoUniversity Hospitals Beachwood Medical CenterUS SINGLE QUAD RT UPPERon 56-45-9553ZZ SINGLE QUAD RT UPPER EXAMINATION: US SINGLE [...] Electronically authenticated by: RYAN VAZQUEZ Date: 2023-02-09 11:57NoUniversity Hospitals Beachwood Medical CenterCovid-19 PCR (CVDTBH)on 44-79-7589XZMX-CoV-2 (COVID-19) RNA SHAHEEN+probe Ql (Unsp spec)DetectedAbnormalNOT DETECTEDThe [facility] Medical CenterComment on above:Result Comment: This test is not yet approved or cleared by the [place] FDA. When there are no FDA-approved or cleared tests available, and other criteria are met, FDA can make tests available under an emergency access mechanism called an Emergency Use Authorization (EUA). The EUA for this test is supported by the [place] of Health and Human Service's declaration that circumstances exist to justify the emergency use of in vitro diagnostics for the detection and/or diagnosis of the virusthat causes COVID-19. This EUA will remain in effect for the duration of the COVID-19 declaration justifying emergency of IVDs, unless it is terminated or revoked by the FDA (after which the test mayno longer be used).Performed By: #### CVDTBH #### [facility] [address] [place] [address] Dr. Lorraine GHOTAR AGon 80-92-5923BSMKAXKQCBJLPBarney Children's Medical CenterComment on above:Result Comment: Negative for Flu A protein angiten. Infection due to Flu A cannot be ruled out. FluA angiten in the sample may be below the detection limit of the test.Performed By: #### INFLUAB #### [facility] [address] [place] [address] Dr. Lorraine Beasley [facility], Edwin ShawComment on above: Result Comment: Negative for Flu B protein antigen. Infection due to Flu B cannot be ruled out. FluB antigen in the sample may be below the detection limit of the test.Performed By: #### INFLUAB #### [facility] [address] [place] [address] Dr. Lorraine Brito AGNegativeNormalNEGATIVE SEE COMMENTThe [facility] on above:Performed By: #### INFLUAB #### [facility] [address] [place] [address] Dr. Lorraine Guevara AGNegativeNormalNEGATIVE SEE COMMENTThe [facility] on above:Performed By: #### INFLUAB #### [facility] [address] [place] [address] Dr. Lorraine ScottMG MAMM SCREEN 3D LAURA CADon 78-35-4460TJ MAMM SCREEN 3D LAURA CAD Patient: CHLOE AGARWAL Exam Date: 10/22/2022 : 1955 Gender:F Ordering : DR JUAN CARLOS NARVAEZ . Admission #: [id number] Family : Order #: [id number] CLICK HERE TO VIEW EXAM RADIOLOGY REPORT [...] Treatments None Family Cancers None LOCATION: [facility] BREAST COMPOSITION: Scattered areas fibroglandular [...] by: Ryan Vazquez M.D. on 10/23/2022 at 08:41The [facility] HospitalXR DEXA BONE DENSITYon 32-53-1064GV DEXA BONE DENSITYEXAMINATION: XR DEXA BONE DENSITY, 10/22/2022 8:05 AM [...] High Fracture Risk Electronically authenticated by: RYAN VZAQUEZ Date: 2022-10-22 09:12[facility] ACOG PANEL 2: 30 to 65on 10-03-2022..NormalThe [facility] Medical CenterComment on above:Result Comment: Performed at: WBPerformed By: #### [id number] #### [facility] [address] [address] [address] Lorraine Donovan Gdln ACOG Pxopjsb29-42CmcszgJowUniversity Hospitals Beachwood Medical CenterComment on above:Performed By: #### [id number] #### [facility] [address] [address] [address] Lorraine ScottDIAGNOSIS:CommentKettering Health – Soin Medical Center on above: Result Comment: NEGATIVE FOR INTRAEPITHELIAL LESION OR MALIGNANCY. CELLULAR CHANGES ASSOCIATED WITH ATROPHY ARE PRESENT. Performed at: WBPerformed By: #### [id number] #### [facility] [address] [address] [address] Lorraine ScottHPV AptimaNegativeNormalNegativeFayette County Memorial Hospital on above:Result Comment: This nucleic acid amplification test detects fourteen high-risk HPV types (16,18,31,33,35,39,45,51,52,56,58,59,66,68) without differentiation. Performed at: =GPerformed By: #### [id number] #### [facility] [address] [place] [address] Dr. Lorraine Tovar Genotype ReflexCommentKettering Health – Soin Medical Center on above:Result Comment: Criteria not met, HPV Genotype not performed. Performed at: WBPerformed By: #### [id number] #### [facility] [address] [place] [address] Dr. Lorraine ScottMethodology:CommentKettering Health – Soin Medical Center on above: Result Comment: This liquid based ThinPrep(R) pap test was screened with the use of an image guided system. Performed at: WBPerformed By: #### [id number] #### [facility] [address] [place] [address] Dr. Lorraine ScottNote:CommentKettering Health – Soin Medical Center on above:Result Comment: The Pap smear is a screening test designed to aid in the detection of premalignant and malignant conditions of the uterine cervix. It is not a diagnostic procedure and should not be used as the sole means of detecting cervical cancer. Both false-positive and false-negative reports do occur. . Performed at: WBPerformed By: #### [id number] #### [facility] [address] [place] [address] Dr. Lorraine ScottPerformed by:CommentKettering Health – Soin Medical Center on above: Result Comment: Rosie Juarez, Groundsman (ASCP) Performed at: WBPerformed By: #### [id number] #### [facility] [address], [place] [address] Dr. Lorraine ScottSpecimen adequacy:CommentNoUniversity Hospitals Beachwood Medical CenterComment on above:Result Comment: Satisfactory for evaluation. Endocervical component may not be distinguished in cases of atrophy. Performed at: WBPerformed By: #### [id number] #### [facility] [address] [address] [address] Lorraine ScottCHEMISTRYOrdered By: SYSTEM SYSTEM on 46-19-2108Mdctb gap [Moles/Vol]13 mmol/LNormal6 - 16 mEq/LFTMC RemisolCalcium [Mass/Vol]10.0 mg/dL Normal8.9 - 11.1 mg/dLFTMC RemisolChloride [Moles/Vol]103 mmol/FFimwbe676 - 111 mmol/LFTMC RemisolCO2 [Moles/Vol]27 mmol/VWsdflf54 - 31 mmol/LFTMC Remisol Creatinine [Mass/Vol]1.0 mg/dLNormal0.5 - 1.3 mg/dLFT RemisolGFR/1.73 sq M.predicted among blacks MDRD (S/P/Bld) [Vol rate/Area]mL/min/1.73 d0Dgmyma >=59mL/min/1.73 m2FT Chem SGFR/1.73 sq M.predicted among non-blacks MDRD (S/P/Bld) [Vol rate/Area]56 mL/min/1.73 m2Low>=59mL/min/1.73 m2[facility] Chem S Glucose [Mass/Vol]104 mg/aYKeqfjc11 - 199 mg/dLFT RemisolPotassium [Moles/Vol] 4.6 mmol/LNormal3.5 - 5.3 mmol/LFTMC RemisolSodium [Moles/Vol]138 mmol/LNormal 135 - 145 mmol/LFTMC RemisolUrea nitrogen [Mass/Vol]20 mg/dLNormal5 - 21 mg/dL [facility] RemisolUrea nitrogen/Creatinine [Mass ratio]20 mg/sfKvzoit49 - 20FTMC RemisolIntraoperative Noteon 71-65-2260Ffyobzgeliokza Note [id number]#1.00OTWashington [facility] HospitalCoding Summaryon 15-82-5527Rqvgmw SummaryCODING DATE: 12/14/2017 [facility] STATUS: Home PAYOR: Commercial Insurance APC DESCRIPTION 5361 Level 1 Laparoscopy and Related Services ADMIT DX: REASON FOR VISIT DX: K35.80 Unspecified acute appendicitis FINAL DX: PRINCIPAL: K35.80 Unspecified acute appendicitis SECONDARY: K21.9 Gastro-esophageal reflux disease without esophagitis PYMT PROC APC STAT DESCRIPTION DOCTOR NAME DATE 82693 5361 J1 Laparoscopy, surgical, Adryan Yoon MD appendectomy NOTE: The code number assigned matches the documented diagnosis and / or procedure in the patient's chart. However, the narrative phrase printed from the coding software may appear abbreviated, or result in slightly different terminology. Coded By: Tenisha Smith Date Saved: 12/14/2017 09:53 [facility] Lab Resultson 78-54-3677Mti - Other Lab Results [id number]#1.00OT[facility] Operative Report - Surgeon/Physicianon 80-53-4255Vsmdzqpuh Report - Surgeon/PhysicianThis is the second dictation on this operative [...] using the electrocautery Bovie until reaching the anteriorrectusfascia. The fascia was scored in the midline and grasped with the Kocherclamps and elevated. Then 0 Vicryl stay sutures were placed. The peritoneumwas opened using blunt dissection. A 5 mm portwas placed in the right upperquadrant and a second 5 mm port was placed in the left lower quadrant.Thepatient was placed in the Trendelenburg position. The appendix was inflamed.It was grasped with a Andrés clamp. A defect in the mesoappendix wascreated using a curved dissector. The Endo GORDON stapler was used to transectthe mesoappendix and a second firing of the vascular stapler was used totransect the mesoappendix. The appendix was placed in an Endocatch bag andremoved via the infraumbilicalport. The port was replaced. The abdomen wasre-insufflated [...] placed on both sides of the incisions and1/2 inch Steri-Strips wereplaced along with dry sterile dressings. The patient was extubated in ana perating room and taken to the PACU in fair condition. All instruments andsponge counts were correct at the end of the case. The patient tolerated theprocedure without any difficulties.Adryan Yoon M.D.JOB #: [id number]: 12/09/2017T: 12/09/2017[Electronically Signed on: 12/15/2017 10:32 EST] Adryan Yoon MD[Verified on: 12/15/2017 10:32 EST] Adryan Yoon MD[Transcribed on: 12/09/2017 09:14 EST]GDC[facility] Hospitalide Recordson 12-09-2017 Outside [id number]#1.00OTGTIFFNosalomón Ferraroruder HospitalOutside Records [id number]#1.00OTGTIFFWilson Memorial HospitalMAGR Postoperative Recordon 36-66-4618TBQV Postoperative RecordMAGR Phase II Record Summary Primary Physician: Adryan Yoon MD Finali zed Date/Time: 12/08/17 13:12:55 Pt. Name: ANYCHLOE./Sex: 1955 FEMALE Med Rec #: [id number] Physician: Adryan Yoon MD Financial #: [id number] Pt. Type: D Room/Bed: [facility] Admit/Disch: 12/04/17 03:05:00 - 12/05/17 12:30:00 Institution: [...] discharge instructions. General Comments: care per [facility] personnel Finalized By: Chloe Turcios RN Document Signatures Sig wiley By: Chloe Turcios RN 12/08/17 13:12Wilson [facility] HospitalOperative Report - Surgeon/Physicianon 38-48-5721Vkipkyzod Report - Surgeon/Physician [id number]#[address] [place] [address] Pathology Sendout Teston 19-89-0460Wcislnsgj Send Out.See [facility] Brentwood HospitalComment on above:Order Comment: APPENDIXPerformed By: #### [id number] ####[facility] (DEFAULT)[address] [place], [place] [address]Ooxtnnze Orderson 11-71-8316Ihulrzwx Orders [id number]#[address] Consent Formson 28-99-3966Eitwqsm Forms [id number]#[address] [place] [address] Intraoperative Noteon 99-45-3433Ivkwmsjvcbmqhm Note [id number]#[address] Medication Managementon 98-56-9681Ytdawwqnfe Management [id number]#[address] Telemetry Stripson 68-23-6781Tftlpapos Strips [id number]#[address] Discharge Summaryon 47-53-0950Lhvmalxda SummaryDISCHARGE DIAGNOSIS: Acute appendicitis.DISCHARGE CONDITION: Good.HOSPITAL COURSE: The patient is a 62-year-old woman who presented [facility] emergency department. She was found to have a slightlyelevated white blood cell count. A CT scan was consistent with acuteappendicitis. The [facility] andas a result, she underwent a laparoscopic appendectomy. Postoperatively sheis doing well. Her white blood cell count decreased to the normal range. Sheis tolerating a regular diet. Her pain is controlled and she is ambulatingwithout difficulty. As a result, she will be discharged home. She willfollow-up with me in two weeks.Adryan Yoon M.D.JOB #: [id number]: 12/05/2017T: 12/06/2017[Electronically Signed on: 12/09/2017 07:13 EST] Adryan Yoon MD[Verified on: 12/09/2017 07:13 EST] Adryan Yoon MD[Transcribed on: 12/06/2017 08:45 EST][facility].Auto Diff 1on 05-11-1894Nxpt Baso %0.1 %Low0.2-2.0Magruder HospitalComment on above:Performed By: #### [id number], [id number] ####[facility] (DEFAULT)[address] [place] [address]Kjni [place] %8 %Normal1-12Magruder HospitalComment on above: Performed By: #### [id number], [id number] ####[facility] (DEFAULT)[address] [place] [address] 01699Qicj Neut %86 %Legnur78-42Mcikyqwg HospitalComment on above:Performed By: #### [id number], [id number] ####[facility] (DEFAULT)[address] [place] [address] 36334Bjvt Abs#0.0 z65Cwsnoj7.0-0.2Magruder HospitalComment on above:Performed By: #### [id number], [id number] ####[facility] (DEFAULT)[address] [place] [address] 62326Zwc Abs#0.0 z43Vgyzzd 0.0-0.4Magruder HospitalComment on above:Performed By: #### [id number], [id number] ####[facility] (DEFAULT)[address] [place] [address]307 Eosinophils/100 leukocytes0.0 %Low0.9-4.0Magruder HospitalComment on above: Performed By: #### [id number], [id number] ####[facility] (DEFAULT)[address] [place] [address] 63246Poiamhkgjao6.6 r84Rdl9.3-2.9[facility] HospitalComment on above:Performed By: #### [id number], [id number] ####[facility] (DEFAULT)[address] [place] [address] 71245Mpdoqzjenrx/100 leukocytes6 %Ldn33-13Ccctgwby HospitalComment on above:Performed By: #### [id number], [id number] ####[facility] (DEFAULT)[address] [place] [address] 60484Ycnw Abs#0.9 x34Akmk 0.0-0.8[facility] HospitalComment on above:Performed By: #### [id number], [id number] ####[facility] (DEFAULT)[address] [place] [address] 70918Rhlc Abs# 9.9 a21Owha1.5-9.2Mmiddletown hospital HospitalComment on above:Performed By: #### [id number], [id number] ####[facility] (DEFAULT)[address] [place] [address] 84828 CBC w/ Auto Diffon 92-89-5360Fulryppgncn distribution width Auto Ratio (RBC)13.6 %Exyoag49.5-15.0[facility] HospitalComment on above:Performed By: #### [id number], [id number] ####[facility] (DEFAULT)[address] [place] [address] 09475 Erythrocytes (RBC)3.75 e35Cedjsl8.70-5.30[facility] HospitalComment on above: Performed By: #### [id number], [id number] ####[facility] (DEFAULT)[address] [place] [address] 67038Unrnephoki (HCT)34.4 %Nkjito31.7-40.4[facility] HospitalComment on above:Performed By: #### [id number], [id number] ####[facility] (DEFAULT)[address] [place] [address] 38675Ylnpravhss mass conc (Bld)11.0 g/dLLow11.3-15.9[facility] HospitalComment on above:Performed By: #### [id number], [id number] ####[facility] (DEFAULT)[address] [place] [address] 64396Cbd Diff?AutoNormalEast [facility] Hospital HospitalComment on above:Performed By: #### [id number], [id number] ####[facility] (DEFAULT)[address] [place], [place] [address]MCH29 xxWxmipc46-14Xdnnbnmx HospitalComment on above:Performed By: #### [id number], [id number] ####[facility] (DEFAULT)[address] [place], [place] [address]MCHC mass conc (RBC)32 g/lBGqmykv65-64Chcpfdmc HospitalComment on above: Performed By: #### [id number], [id number] ####[facility] (DEFAULT)[address] [place], [place] [address]MCV92 mKAzzxta96-458Fxuwzvzk HospitalComment on above:Performed By: #### [id number], [id number] ####[facility] (DEFAULT)[address] [place] [address] 32679Zfoalnuc mean volume (PMV)11.7 fLHigh6.3-10.2 [facility] HospitalComment on above:Performed By: #### [id number], [id number] ####[facility] (DEFAULT)[address] [place] [address] 600[address]Dtttmyozl 204 c39Llsgpc748-930Dqpyxkzx HospitalComment on above:Performed By: #### [id number], [id number] ####[facility] (DEFAULT)[address] [place] [address] 47523VIT (Leukocytes)11.4 v97Xxws5.5-10.5[facility] HospitalComment on above: Performed By: #### [id number], [id number] ####[facility] (DEFAULT)[address] [place] [address] 77[address]Yhvoqivmg Noteon 97-99-3263Rqkcwlvwj NoteEducation MaterialsGastroenterologyAppendicitisThe appendix is a finger-shaped tube that is [...] diagnosed?This condition may be diagnosed with:? A physicalexam.? Blood tests.? Urine test.To confirm the diagnosis, an ultrasound, MRI, or CT scan may be done.How is this treated?This condition is usually treated by taking out the appendix (appendectomy). There are two methods for doing an appendectomy:? Open appendectomy. In this surgery, the appendix isremoved through a large cut (incision) that is made in the lower right abdomen. This procedure may be recommended if:? You have major scarring from a previous surgery.? You have a bleeding disorder.?You are and are near term.? You have a condition that makes the laparoscopic procedure impossible, such as an advanced infection or a ruptured appendix.? Laparoscopic appendectomy. In this surgery, the appendix is removed through small incisions. This procedure usually causes less pain andfewer problems than an open appendectomy. It also has a shorter recovery time.If the appendix has ruptured and an abscess has formed, a drain may be placed into the abscess to remove fluid and antibiotic medicines may be given through an IV tube. The appendix may or may not need to be removed.This i nformation is not intended to replace advice given to you by your health care provider. Make sure you discuss any questions you have with your health care provider.Document Released: 10/05/2006 Document Revised: 02/11/2017 Document Reviewed: 02/20/2016[employer] Interactive Patient Education ? 2017 SourceTour. Wilson Memorial HospitalInpatient Clinical Summaryon 00-63-7556Ocpngmiml Clinical SummarySelect [facility] 2SOUTHClinical Discharge SummaryPERSON INFORMATIONName CHLOE AGARWAL Age62 Years 59Sex FEMALE Language Togolese PCP Agus MCGHEE Status [facility]-72 Acct# Arrival 12/04/17 03:05:00Visit Reason APPE NDICITIS Acuity LOS 000 34:38Address:[address] [facility] [address]Dyodzyh:PROVIDER INFORMATIONVITALS INFORMATIONVital Sign Triage LatestTemp Oral 36.8 DegC 36.4 DegCTemp TemporalTemp IntravascularTemp AxillaryTemp Kycybt14 Sat 99 % 99 %Respiratory Rate 16 br/min 18 br/minPeripheral Pulse Rate 79 bpm 60 bpmApical Heart Rate 76 bpm 60 bpmBlood Pressure 138 mmHg / 86 mmHg 97 mmHg / 59 mmHgComment:MEDICAL INFORMATIONAllergy Info:Allergies sulfonamidePrescriptions Given:Home Meds Displayacetaminophen-hydrocodone ([place] 7.5 mg-325 mg oral tablet) 1 tab(s), PO, q4hr, PRN: for pain, 0 Refill(s)docusat e (Colace 100 mg oral capsule) 1 cap(s) ( 100 mg ), PO, Daily, PRN: for constipation, 0 Refill(s)esomeprazole (NexIUM 20 mg oral delayed release capsule) 1 cap(s) ( 20 mg ), PO, Daily, 0 Refill(s)ibuprofen (ibuprofen 200 mg oral capsule) 2 cap(s) ( 400 mg ), PO, q4hr, PRN: for pain, 0 Refill(s)Medic ation List:Continue These Medications:docusate (Colace 100 mg oral capsule) 100 mg Oral every day as needed for for constipationesomeprazole (NexIUM 20 mg oral delayed release capsule) 20 mg Oral every dayibuprofen (ibuprofen 200 mg oral capsule) 400 mg Oral Every 4 hours as needed for for painacetaminophen- hydrocodone ([place] 7.5 mg-325 mg oral tablet) 1 tab(s) [...] ) MPV: 11.7 fL -- Normal range betwee n ( 6.3 and 10.2 ) Platelet: 204 [...] range between ( 1.3 and 2.9 ) [place] Abs#: 0.9 x103/mcL -- Normal range between ( 0.0 and 0.8 ) Auto Baso %: 0.1 % -- Normal range between ( 0.2 and 2.0 ) Auto [place] %: 8 % -- Normal range between ( 1 and 12 ) Baso Abs#: 0.0 x103/mcL -- Normal range between ( 0.0 and 0.2 ) Neut Abs#: 9.9 x103/mcL -- Normal range between ( 1.5 and 9.2 )DIET & ACTIVITYPatient Activity Level:As ToleratedPatient Diet:RegularPatient Activity Restrictions:Other: May shower. May drive when nolonger taking pain medicationsDISCHARGE INFORMATIONDischarge Disposition: HomeDischarge Location: HomeDEPART REASON INCOMPLETE INFORMATIONPATIENT EDUCATION INFORMATIONInstructions:AppendicitisFollow up:With: Address: When:Adryan Yoon MD [address], [place] [address] Business (1)DIAGNOSIS1:Acute appendicitisPROBLEMSProblems Active Arthritis Heart murmur HeartburnComment:PHYS DOC NOTESNoParma Community General HospitalInpatient Patient Summary on 79-84-9087Jzzfapdlq [place] [address] patient Discharge InstructionsName: CHLOE AGARWALDOB: [birth year] Address: [address] [place], [place] [address]Primary Care Provider:Name: VICK MCGHEEPhone: After you are discharged if you find you have any questions, please, call [phone] ext [phone] to speak to a nurse.DischargeDiagnosis: 1:Acute appendicitisIf you received any narcotics, sedation, [...] or business decisions or sign any legal documentsThe [facility] would like to thank you for allowing us to assist you with your healthcare needs. The following includes patient education materials and information regarding your injury/illness.CHLOE AGARWAL has been given the following list of follow-upinstructions, prescriptions, and patient education materials:Follow-up InstructionsWith: Address: When:Adryan Yoon MD [address], [place] [address] Business (1)MedicationsDuring the course of your visit, your medication list was updated with the most current information. The details of those changes are reflected below:Medications to Continue That Have Not ChangedOther Medicationsacetaminophen-hydrocodone ([place] 7.5 mg-325 mg oral tablet) 1 tab(s) [...] we are also providing you with your finalactive medications list that you can keep with you.acetaminophen-hydrocodone ([place] 7.5 mg-325 mg oral tablet) 1 tab(s) [...] Contact your doctor prior to taking any medicationsnot on this list.Medication leaflets, if any, will display belowDiet & ActivityPatient ActivityLevel: As ToleratedPatient Diet: RegularPatient Activity Restrictions: Other: May shower. May drivewhen no longer taking pain medicationsPatient education materials, if any, will display belowAppendi citisThe appendix is a finger-shaped tube that is attached to the large intestine. Appendicitis is inflammation of the appendix. Without treatment, appendicitis can cause the appendix to tear (rupture). A ruptured appendix can lead to a life-threatening infection. It can also lead to the formation of a painful collection of pus (abscess) in the appendix. What arethe causes?This condition may be caused by a blockage in the appendix that leads to infection. The blockage can be due to:? A ball of stool.? Enlarged lymph glands.In some cases, the cause may not beknown.What increases the risk?This condition is more likely [...] pain and fewer problems than an open appendectomy.It also has a shorter recovery time.If the appendix has ruptured and an abscess has formed, a drainmay be placed into the abscess to remove fluid and antibiotic medicines may be given through an IV tube. The appendix may or may not need to be removed.This information is not intended to replace advice given to you by your health care provider. Make sure you discuss any questions you have with your health care provider.Document Released: 10/05/2006 Document Revised: 02/11/2017 Document Reviewed:02/20/2016Floydevviktor Interactive Patient Education ? 2017 SourceTour.Viruses or BacteriaWhat?s got you sick?Antibiotics only treat [...] Antibiotics Princess.S. Department of Health and Human ServicesDelaware County Hospitalers for Disease Control and Prevention June 2014[facility] Note - Nurseon 07-59-0775Dvjlm (Heart Rate)Pt. reports abd pain tolerable with norco. Denies [...] RN[Verified on: 12/05/2017 09:52 EST] Sim Chamorro [facility]NMansfield [facility] Note - NursePt walking the hallway with RN, 200 ft, standby assist. Pt is steady. No c/o SOB or dizziness. Bilateral upper and lower abdominal pain 3/10, prn norco administered as ordered. Will continue to monito r, call light in reach.[Electronically Signed on: 12/05/2017 05:50 EST] Serina Cross[Verified on: 12/05/2017 05:50 EST] [facility] HospitalProgress Note - NursePt is a/o and cooperative. Pt c/o upper and lower abdominal pain 12/26, PRN norco administered as ordered. Steri strips in place on 3 abdominal incisions. Umbilical incision 2x2's removed, sanguinous drainage present. 2- 2x2's and primapore applied. Pt stated that ate approximately 20% of her dinnerbecause she could not taste the food. Pablito crackers and PB given to pt as requested. See I-view for vs. Pt is a standby assist and is steady. Will continue to monitor pt, call light in reach, bed alarm on.[Electronically Signed on: 12/04/2017 23:39 EST] Serina Cross[Verified on: 12/04/2017 23:39 EST] [facility] Anesthesia Noteon 22-28-9386Ogykarzbab NotePatient: CHLOE AGARWAL : 62 years Sex: FEMALE : [birth year]Associated Diagnoses: NoneAuthor: Fernie Sandoval DOPostoperative InformationPost Operative Note: Post Anesthesia Care Unit.Review / ManagementCondition: Stable.AssessmentAnesthetic outcomeNo anesthetic complications noted.PlanTransfer/ Discharge: Patient can be discharged from PACU when criteria met.Condition good.[Electronically Signed on: 12/04/2017 15:01 EST] Fernie Sandoval DO[Verified on: 12/04/2017 15:01 EST] LoriFernie DO [facility] HospitalAnesthesia NotePatient: CHLOE AGARWAL : 62 years Sex: FEMALE : [birth year]Associated Diagnoses: NoneAuthor: Lori Fernie DOPreoperative InformationAnesthesia history: Patient history: Nausea and vomiting with anesthesia, No difficult intubation, No malignant hyperthermia. Family history: No malignant hyperthermia, No prior anesthesia problems.Review of SystemsConstitutional EyeEar/Nose/Mouth/ThroatRespiratory: No shortness of breath, No cough.Cardiovascular: No chest pain.Gastrointestinal: Heartburn.Neurologic: Alert and oriented X4.Health StatusAllergies:Allergic Reactions (All)Severity Not DocumentedSulfonamide- No reactions were documented.Current medications:Home Medications (3) ActiveColace 100 mg oral capsule 100 mg = 1 cap(s), PRN, PO, Dailyibuprofen 200 mg oral capsule 400 mg = 2 cap(s), PRN, PO, i4boOocHOH 20 mg oral delayed release capsule 20 mg = 1 cap(s), PO, DailyProblem list (past medical history):All ProblemsAlteration in comfort: pain / SNOMED [id number] / ConfirmedArthritis / SNOMED CT 9937444 / ConfirmedHeart murmur / SNOMED CT 760872151 / ConfirmedHeartburn / SNOMED CT 99759421 / ConfirmedResolved: Kidney stones / SNOMED CT 572385478Exuuinus: History of renal stent / SNOMED CT 8484373625Nbuxjghm: Acute appendicitis / SNOMED CT 665804528NjfzlymtdUnxgpr History:DementiaFatherLiver massSisterCHF (congestive heart failure)MotherFatherProcedure history:History of right total knee replacement (955517282486395).History of left total knee replacement (824947578154546).Tonsillectomy (056230649).Removal of ureteral stent (771638259).Historyof ureteral stent placement (4380638196).Social History Alcohol Assessment Use: Never. Tobacco Assessment Never (less than 100 in lifetime) Tobacco Use:. Substance Abuse Assessment Substance use: Never. 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 Home/Environment Assessment Lives with Children, Spouse. Living situation: Home/Independent. Nutrition/Health Assessment Regular, Caffeine intake amount: Hot tea in the morning..Social & Psychosocial EeunhxTgwznkf14/16/2018 Alcohol Use: NeverEmployment/Snzmbb6112/04/2017 Status: Self employed Description: Office workHome/Ujxdxiirhtv10/16/2018 Lives with: Children, Spouse Living situation: Home/IndependentNutrition/Ycqois8712/04/2017 Type of diet: Regular Caffeine intake amount: Hot tea in the arcucnaJhlxaksjmSfalv23/16/2018 Substance use: IesawRqgzeas77/16/2018 Smoking tobacco use: Never (less than 100 in l.Physical ExaminationVS/MeasurementsMeasurements from flowsheet : Hbeulpgepvcj15/16/18 03:09 EST Height 152.400 cm Height/Length Dosing 152.400 cm Weight 71.200 kg Weight Dosing 71.200 kg Body Mass Index 30.660 kg/m2,Vital Signs (last 24 hrs) Last ChartedTemp Oral 36.7 DegC (DEC 04 07:00)Heart RatePeripheral 76 bpm (DEC 04 07:00)Resp Rate 18 br/min (DEC 04:00)SBP 123 mmHg (DEC 04 07:00)DBP 77mmHg (DEC 04 07:)SpO2 99 % (DEC 04 07:00)Weight 71.200 kg (DEC 04 03:09)Height 152.40 cm (DEC 04 03:09)General: Alert and oriented, No acute distress.Airway: Mallampati classification: II (soft palate, fauces, uvula visible). Temporomandibular joint mobility: Good. Mouth: Teeth ( [place] ). Neck: Non- tender, Full range of motion.Respiratory: Lungs are clear [...] on: 12/04/2017 08:38 EST] Fernie Sandoval DO [facility] HospitalHistory and Physicalon 59-12-6813Yfbjdnx and PhysicalDATE OF ADMISSION: 12/04/17 MEDICAL HISTORYCHIEF COMPLAINT: Right lower quadrant abdominal pain.HISTORY OF PRESENT ILLNESS: The patient is a 62-year-old woman withabdominal pain. [facility]. A CT scan of the abdomen and pelvis was obtained which wasconsistent with acute appendicitis. Due to personal reasons, she did notwant the surgery performed at [facility] and as a result, shewanted [facility] be [facility]. The patientwas told that her surgery would be later this morning and she was okay withthat.FAMILY HISTORY: Noncontributory.SOCIAL HISTORY: Noncontributory.PAST MEDICAL HISTORY: Gastroesophageal reflux disease.REVIEWOF SYSTEMS:CONSTITUTIONAL: She denies any fevers or chills.SKIN: Denies rashes or jaundice.HEENT: She denies blurring, double vision, loss of vision, ear pain, eardischarge, abnormal nasal discharge, sore throats or hoarseness.CARDIOVASCULAR: She denies chest, irregular heartbeat or palpitations.RESPIRATORY: She denies dyspnea, cough, wheezing or excessive sputum.GI: As per the history of presentillness.: She denies dysuria, hesitancy or urgency.MUSCULOSKELETAL: She [...] exudates. The mucus membranes are moist.NECK: Supple. Nolymphadenopathy and no JVD. The thyroid is not enlarged.CARDIOVASCULAR: Regular rate and rhythm without murmurs, rubs or gallops.LUNGS: Clear to auscultation bilaterally. No wheezing, rhonchi or crack les.ABDOMEN: Soft and nondistended. Positive right lower quadrant tenderness.No rebound or guarding. No hepatosplenomegaly.EXTREMITIES: Warm. No clubbing, cyanosis or edema.NEUROLOGICAL: Cranial nerves 2-12 are grossly intact. The patient is alertand oriented x3. She has appropriate mood and affect.ASSESSMENT: RIGHT LOWER QUADRANT ABDOMINAL PAIN, ACUTE APPENDICITIS.PLAN: The patient will be takento the operating room for a laparoscopic,possible open appendectomy. The risks of the procedure including bleeding,abscess formation and bowel perforation were discussed with the patient andshe is willing to undergo the procedure.Adryan Yoon M.D.JOB #: [id number]: 12/04/2017T: 12/04/2017[Electron francoise Signed on: 12/04/2017 07:16 EST] Adryan Yoon MD[Verified on: 12/04/2017 07:16 EST] Adryan Yoon MD[Transcribed on: 12/04/2017 06:52 EST][facility] Intraoperative Recordon [id number] Intraoperative RecordMA Intra-Op Record Summary Primary Physician: Adryan Yoon MD Finali zed Date/Time: 12/04/17 15:26:26 Pt. Name: CHLOE AGARWAL /Sex: 1955 FEMALE Med Rec #: [id number] Physician: Adryan Yoon MD Financial #: [id number] Pt. Type: D Room/Bed: [facility] Admit/Disch: 12/04/17 03:05:00 - Institution: Case Times [...] Role Performed Surgeon - Primary Anesthesiologist of CirculatorRecord Time In 12/04/17 09:44:00 12/04/17 09:44:00 12/04/17 09:44:00 Time Out 12/04/17 10:42:00 12/04/17 10:42:00 12/04/17 10:42:00 Procedure Appendectomy Appendectomy Appendectomy Laparoscopic Laparoscopic Laparoscopic Last Modified By: Olinda Mora Cynthia M Cartier, Cynthia M 12/04 10:56:16 12/04/17 10:56:16 12/04/17 10:56:16 Entry 4 Entry 5 Entry 6 Case Attendee Jennifer Li RIBBON CUTTER BOARD CSFA/RIBBON CUTTER, Antonia Bah RN Role Performed County Extension Agent Scrub Personnel 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 [employer] Time In 12/04/17 09:44:00 12/04/17 09:44:00 12/04/17 [...] Level 4 Wound Class Contaminated Specialty General ASAClass 2 Diagnosis Preop Diagnosis APPENDICITIS Postop Same [...] Arm Position Extended on padded arm Right ArmPosition Extended on padded arm board board Left [...] Dry Yes Without Pooling Hair Removal Syntegrity HairRemoval Methods Clipper Hair Removal By Antonia Pérez [...] Initial Counts Manual the Initial Count Method Initi al Counts Olinda Mora, Initial Count Time 12/04/17 [...] UNIT FLOWTRON FOOT CUFF REG Serial ?# [id number] Equipment Setting FACTORY SETTINGS Last Modified By: Olinda Mora Cynthia M 12/04/17 11:06:59 12/04/17 11:06:59 Post-Care Text: E.10 Evaluates signs and symptoms of physical injury to skin andtissue O.700 Patient is free from signs and symptoms of injury caused by extraneous objects CauteryMAGR Pre-Care Text: A.240 Assesses baseline skin condition A.40 Verifies presence of prosthetics orcorrective devices Im.50 Implements protective measures to prevent injury due to electrical sourcesEntry 1 ESU Type Electrosurgical Unit Identification [id number] [...] infection Im.290 Administer care to wound sites Entry1 Skin Prep Agent Yes Site Abdomen Removed [...] Description Report Given To Vernell Gunderson RN AirwayMaintenance Patient Status Stable Oxygen in Use? Yes Airway Device Simple mask Flow Rate 8 L/min Last Modified By: Olinda Mora 12/04/17 11:53:41 Case Comments Finalized By: Antonia Pérez RNDocument Signatures Signed By: Antonia Pérez RN 12/04/17 15:26[facility] PACU Recordon [id number] PACU RecordMAGR PACU Record Summary Primary Physician: Adryan Yoon MD FinalizedDate/Time: 12/04/17 11:35:32 Pt. Name: ANYCHLOE/Sex: 1955 FEMALE Med Rec #: [id number] Physician: Adryan Yoon MD Financial #: [id number] Pt. Type: D Room/Bed: 229/1 Admit/Disch: 12/04/17 03:05:00 - Institution: PACU Case Times MAGR Entry 1 In PACU I 12/04/17 10:44:00 Discharge from PACU 12/04/17 11:25:00 I Last Modified By: Vernell Gunderson RN 12/04/17 11:35:30 Finalized By: Vernell Gunderson RN Document Signatures Signed By: Vernell Gunderson RN 12/04/17 11:35[facility] Progress Note - Nurseon [id number] Note - NursePatient admitted to room 229. Was brought to room by ambulance personnel on cot, accompanied by . Patient ambulated to bed independently, steady with no complications. Patient A&Ox3, mouthswabs and chap stick given. Vitals obtained and [...] IVP as ordered. Call light in reach andbed alarm on.[Electronically Signed on: 12/04/2017 04:41 EST] Liliane Rivero RN[Verified on: 12/04/2017 04:41 EST] Liliane Rivero RN [facility] Vital Signs Date TimeVital SignValuePerforming HfpscnlvzKebgaoxg90-65-4381 13:44-0400 Diastolic blood mm[Hg]Yodit Sal MD Work Phone: [facility]07-15-2025 13:44-0400 Systolic blood nupirymo708 mm[Hg]Yodit Sal MD Work Phone: [facility]07-15-2025 13:13-0400 Body asldyo084.4 cmYodit Sal MD Work Phone: [facility]07-15-2025 13:13-0400 Body mass index (BMI) [Ratio]27.34 kg/l2EdkucdvYodit Sal MD Work Phone: [phone]07-15-2025 13:13-0400 Body ukzekg51.5 kgYodit Sal MD Work Phone: [facility]07-15-2025 13:13-0400 Heart rate91 /Harrison Sal MD Work Phone: [facility]04-07-2025 14:25-0400 Blood Pressure LocationSandeep Bryant [facility]04-07-2025 14:25-0400 Diastolic blood xtsptewc72 mm[Hg]Baldomero Bryant [facility]04-07-2025 14:25-0400Heart rate70 /minSandeep Bryant [facility]04-07-2025 14:25-0400 Respiratory rate16 /minSandeep Bryant [facility]04-07-2025 14:25-2589RzF0% (BldA) [Mass fraction]99 %Baldomero Bryant [facility]04-07-2025 14:25-0400 Systolic blood suzrpftg503 mm[Hg]Baldomero Bryant [facility]02-10-2025 08:59-0500Body mass index (BMI) [Ratio]31.64 kg/m2Antionette LOPEZ Work Phone: [facility] CenterTjgnhtbgci20-60-3806 08:59-0500Body zqzanf45.48 kgAntionette LOPEZ Work Phone: [facility] CenterXygunbutvp10-89-2147 08:59-0500Diastolic blood ufczqicp29 mm[Hg]Antionette LOPEZ Work Phone: [facility] CenterLfyokomzio24-01-0491 08:59-0500Systolic blood lcjqvkhi585 mm[Hg]Antionette LOPEZ Work Phone: [facility] CenterXcwsgymaac88-50-8251 11:45-0500Diastolic blood mioxfouc73 mm[Hg]Lokesh [facility]queen [facility]12-18-2024 11:45-0500Mean blood nyvncwuq607 mm[Hg]Lokesh [facility]queen [facility]12-18-2024 11:45-0500 Systolic blood edeqdutu461 mm[Hg]Lokesh [facility]queen [facility]12-18-2024 11:35-0500Blood Pressure LocationLokesh Mcqueen [facility]12-18-2024 11:35-0500 Diastolic blood ajeuukqf44 mm[Hg]Lokesh [facility]que[facility]12-18-2024 11:35-0500Heart rate62 /minLokesh Mcqueen [facility]12-18-2024 11:35-0500 Respiratory rate18 /minLokesh Mcqueen [facility]12-18-2024 11:35-3952IkQ6% (BldA) [Mass fraction]98 %Lokesh [facility]queen [facility]12-18-2024 11:35-0500 Systolic blood mm[Hg]Lokesh [facility]queen [facility]11-01-2024 13:49-0400Heart rate68 /minTHANGKarel DEWITTPRATIBHA [facility]11-01-2024 13:49-2357OzL0% (BldA) [Mass fraction]98 %SAM [facility]11-01-2024 13:49-0400Blood Pressure LocationSAM [facility]11-01-2024 13:49-0400 Diastolic blood dwdgcehs53 mm[Hg]SAM [facility]11-01-2024 13:49-0400Mean blood shaovxed46 mm[Hg]SAM K[facility]ER [address] [place], [place] 3370811-01-2024 13:49-0400 Systolic blood igodsrru609 mm[Hg]SAM AWILDA [address] [place], [place] 6308911-01-2024 13:48-0400 Respiratory rate18 /Anita AWILDA [address] [place], [place] 6308911-01-2024 12:16-0400Heart rate52 /Anita AWILDA [address] [place], [place] 6308911-01-2024 12:16-6473DtG2% (BldA) [Mass fraction]100 %SAM AWILDA [address] [place], [place] 6308911-01-2024 12:16-0400Blood Pressure LocationSAM AWILDA [address] [place], [place] 6308911-01-2024 12:16-0400 Diastolic blood ebyrvkea37 mm[Hg]SAM [facility] [address] [place], [place] 6308911-01-2024 12:16-0400Mean blood swuexmbk93 mm[Hg]SAM AWILDA [address] [place], [place] 6308911-01-2024 12:16-0400 Systolic blood wyozwvhu744 mm[Hg]SAM AWILDA [address] [place], [place] 6308911-01-2024 12:15-0400 Respiratory rate18 /SumanKarel [facility]ER [address] [place], [place] 6308911-01-2024 09:55-0400Heart rate50 /Anita AWILDA [address] [place], [place] 6308911-01-2024 09:55-8446LxG0% (BldA) [Mass fraction]98 %SAM [facility] [address] [place], [place] 6308911-01-2024 09:55-0400 Diastolic blood cocjtypj65 mm[Hg]SAM [facility] [address] [place], [place] 6308911-01-2024 09:55-0400Mean blood ibrwfpse68 mm[Hg]SAM [facility]11-01-2024 09:55-0400 Systolic blood esftbdpc773 mm[Hg]SAM [facility]11-01-2024 09:54-0400 Respiratory rate18 /minSAM [facility]11-01-2024 08:04-0400Body yxguzrjtugr41.52 [degF]SAM [facility]11-01-2024 08:03-0400Blood Pressure LocationSAM [facility]10-24-2024 10:49-0400Body nascnx010.4 cmSydnie Villalobos DPM Work Phone: [phone] CenterEpvpdgfjjr48-86-1185 10:49-0400Body mass index (BMI) [Ratio]30.86 kg/f4SyfjntfSydnie Villalobos DPM Work Phone: [phone] CenterNjbvovzrtk48-43-5152 10:49-0400Body szmoyr39.67 kgSydnie Villalobos DPM Work Phone: [phone]59[facility] CenterZeoywwgntr70-40-0966 15:01-0400Blood Pressure ShengWillie Vincent [facility]09-25-2024 15:01-0400 Diastolic blood jzbguzao81 mm[Hg]Willie Kaur [facility]09-25-2024 15:01-0400Heart rate68 /minWillie Kaur [facility]09-25-2024 15:01-0400 Respiratory rate18 /minWillie Kaur [facility]09-25-2024 15:01-6958MlW8% (BldA) [Mass fraction]98 %Willie Kaur [facility]09-25-2024 15:01-0400 Systolic blood zjzvxlsi211 mm[Hg]Willie Kaur [facility]09-18-2024 14:55-0400 Diastolic blood dtpfzwoy77 mm[Hg]Claudio Monroe [facility]09-18-2024 14:55-0400Heart rate66 /minBradfniki Fer [facility]09-18-2024 14:55-0400Mean blood sdavfbku611 mm[Hg]Claudio Monroe [facility]09-18-2024 14:55-0400 Respiratory rate14 /minBradford Fer [facility]09-18-2024 14:55-0400 Systolic blood ahjmtraq489 mm[Hg]Claudio Monroe [facility]07-21-2024 09:00-0400 Diastolic blood mm[Hg]Nelson Solares [facility]07-21-2024 09:00-0400Heart rate55 /minNelson Solares [facility]07-21-2024 09:00-0400Mean blood ldmkhoic50 mm[Hg]Nelson Solares [facility]07-21-2024 09:00-5754DcX9% (BldA) [Mass fraction]99 %Nelson Solares [facility]07-21-2024 09:00-0400 Systolic blood inknlimq699 mm[Hg]Nelson Solares [facility]07-21-2024 08:26-0400 Diastolic blood xuundykb90 mm[Hg]Nelson Solares [facility]07-21-2024 08:26-0400Heart rate58 /Jacqui [facility]ares [facility]07-21-2024 08:26-0400Mean blood zdjqeqvn957 mm[Hg]Nelson Beck [facility]07-21-2024 08:26-0400 Respiratory rate15 /Jacqui Solares [address]07-21-2024 08:26-3953YyJ7% (BldA) [Mass fraction]98 %Nelsoned Solares [address]07-21-2024 08:26-0400 Systolic blood icvmyncy237 mm[Hg]Nelson Solares [address]07-21-2024 07:19-0400Body ppibbsxrdxz28.42 [degF]Nelson Solares [address]07-21-2024 07:19-0400 Diastolic blood vufdbyis43 mm[Hg]Nelson Solares [address] [place], [place] 2264507-21-2024 07:19-0400Heart rate64 /Jcaqui Solares [facility]07-21-2024 07:19-0400 Respiratory rate16 /Jacqui Solares [address] [place], [place] 2264507-21-2024 07:19-7296YhL9% (BldA) [Mass fraction]100 %Nelson Solares [address] [place], [place] 2264507-21-2024 07:19-0400 Systolic blood mm[Hg]Nelson Solares [facility]03-01-2024 13:32-0500Blood Pressure Tanmay Kaur [facility]03-01-2024 13:32-0500 Diastolic blood cmkmwovm90 mm[Hg]Willie Kaur [facility]03-01-2024 13:32-0500Heart rate60 /minRyan Vincent [facility]03-01-2024 13:32-4836VpE7% (BldA) [Mass fraction]99 %Willie Kaur [facility]03-01-2024 13:32-0500 Systolic blood tonpvfqd463 mm[Hg]Willie Kaur [facility]02-07-2024 09:00-0500Body vxbhav166.4 Melany LOPEZ Work Phone: [facility] CenterFrrmiiigpf39-89-9212 09:00-0500Body mass index (BMI) [Ratio]33.22 kg/m2Antionette LOPEZ Work Phone: [facility] CenterCatccvfhta13-71-5487 09:00-0500Body begflf28.17 kgAntionette LOPEZ Work Phone: [facility] CenterBncejteyji91-95-7043 09:00-0500Diastolic blood ouxfsnal53 mm[Hg]Antionette LOPEZ Work Phone: [facility] CenterEeavefdkkz44-40-5405 09:00-0500Systolic blood vvgmbmea197 mm[Hg]Antionette LOPEZ Work Phone: [facility] CenterMpgcsadcmb43-08-0731 13:11-0500Diastolic blood lwjaqdrt68 mm[Hg]Vicky Castillo [facility]02-02-2024 13:11-0500Heart rate59 /minAmanda Ontela [facility]02-02-2024 13:11-0500Mean blood oehahyku140 mm[Hg]Vicky Ontela [facility]02-02-2024 13:11-0500 Respiratory rate18 /minAmanda Ontela [facility]02-02-2024 13:11-0500 Systolic blood disojxzi591 mm[Hg]Vicky Castillo [facility]01-30-2024 11:36-0500 Diastolic blood wnakahmk121 mm[Hg]Landon DOUGLAS [facility]01-30-2024 11:36-0500Mean blood alxijgzu434 mm[Hg]Landon DOUGLAS [facility]01-30-2024 11:36-0500 Systolic blood ebcshlml865 mm[Hg]Landon DOUGLAS [address]01-30-2024 11:27-0500Blood Pressure LocationDasiria DOUGLAS [address]01-30-2024 11:27-0500 Diastolic blood mm[Hg]Landon DOUGLAS [facility]01-30-2024 11:27-0500Heart rate68 /minDcarolina DOUGLAS [address] [place], [place] 7620101-30-2024 11:27-5213XiJ9% (BldA) [Mass fraction]98 %Landon DOUGLAS [address] [place], [place] 7620101-30-2024 11:27-0500 Systolic blood xkwwudip062 mm[Hg]Landon [facility]GLAS [facility]01-08-2024 12:48-0500 Diastolic blood dtwndcfe77 mm[Hg]Vicky Castillo [facility]01-08-2024 12:48-0500Heart rate66 /minAmanda Castillo [facility]01-08-2024 12:48-0500Mean blood dvaaxmja289 mm[Hg]Vicky Castillo [facility]01-08-2024 12:48-0500 Respiratory rate20 /minAmanda Castillo [facility]01-08-2024 12:48-0500 Systolic blood cudwjkrn301 mm[Hg]Vicky Castillo [facility]12-20-2023 09:52-0500Heart rate68 /minBradfniki Monroe [facility]12-20-2023 09:52-6136WoX0% (BldA) [Mass fraction]100 %Claudio Monroe [facility]12-20-2023 09:52-0500 Diastolic blood fyovaszu44 mm[Hg]Claudio Monroe [facility]12-20-2023 09:52-0500Mean blood lqnuwykq891 mm[Hg]Claudio Monroe [facility]12-20-2023 09:52-0500 Systolic blood niqwbdah961 mm[Hg]Claudio Monroe [facility]12-20-2023 09:52-0500 Respiratory rate16 /minBradford Fer [facility]12-20-2023 09:45-0500 Diastolic blood jthamkfm40 mm[Hg]Claudio Monroe [facility]12-20-2023 09:45-0500Heart rate88 /minBradfniki Monroe [facility]12-20-2023 09:45-5923LnE8% (BldA) [Mass fraction]100 %Claudio Monroe [facility]12-20-2023 09:45-0500 Systolic blood cjiqrfrp327 mm[Hg]Claudio Monroe [facility]12-20-2023 09:03-0500Heart rate65 /minBradfniki Monroe [facility]12-20-2023 09:03-5499BfJ1% (BldA) [Mass fraction]98 %Claudio Monroe [address] [place], [place] 5444812-20-2023 09:03-0500Body oxgjpchzyik64.52 [degF]Claudio Monroe [address] [place], [place] 5444812-20-2023 09:03-0500 Diastolic blood bfloifga67 mm[Hg]Claudio Monroe [address] [place], [place] 5444812-20-2023 09:03-0500Mean blood ppusbqng296 mm[Hg]Claudio Monroe [address] [place], [place] 5444812-20-2023 09:03-0500 Systolic blood mm[Hg]Claudio Monroe [address] [place], [place] 5444812-20-2023 09:03-0500 Respiratory rate14 /minBraba Monroe [address] [place], [place] 5444812-05-2023 11:23-0500 Diastolic blood zyjyyrnc94 mm[Hg]Demar Trammell [facility]12-05-2023 11:23-0500Heart rate60 /minDemar Trammell [facility]12-05-2023 11:23-0500Mean blood xudzupbq441 mm[Hg]Demar [facility]ammell [facility]12-05-2023 11:23-0500 Respiratory rate14 /minJojorge Trammell [facility]12-05-2023 11:23-0500 Systolic blood foxsluzj401 mm[Hg]Demar Trammell [facility]09-26-2023 09:26-0400 Diastolic blood fnyzdarc19 mm[Hg]Vicky LAST [facility]09-26-2023 09:26-0400Mean blood vdlappia115 mm[Hg]Vicky LAST [address]09-26-2023 09:26-0400 Systolic blood mm[Hg]Vicky LAST [address]09-26-2023 09:15-0400Blood Pressure LocationAmanvlad LAST [address]09-26-2023 09:15-0400 Diastolic blood wnnahorv78 mm[Hg]Vicky LAST [address] [place], [place] 1259209-26-2023 09:15-0400Heart rate67 /minVicky LAST [address] [place], [place] 1259209-26-2023 09:15-9175OtG9% (BldA) [Mass fraction]98 %Vicky LAST [address] [place], [place] 1259209-26-2023 09:15-0400 Systolic blood zafrwbxc658 mm[Hg]Vicky LAST [address] [place], [place] 1259209-12-2023 15:15-0400 Diastolic blood kbztymvh51 mm[Hg]Landon DOUGLAS [address]09-12-2023 15:15-0400Mean blood sgqvanev448 mm[Hg]Landon DOUGLAS [address] [place], [place] 7620109-12-2023 15:15-0400 Systolic blood hcmmslca047 mm[Hg]Landon DOUGLAS [address] [place], [place] 7620109-12-2023 15:05-0400Blood Pressure LocationDasiria DOUGLAS [address] [place], [place] 7620109-12-2023 15:05-0400 Diastolic blood iglkpoua26 mm[Hg]Landon DOUGLAS [address] [place], [place] 1259209-12-2023 15:05-0400Heart rate80 /minDcarolina DOUGLAS [facility]09-12-2023 15:05-8309CxY5% (BldA) [Mass fraction]99 %Landon DOUGLAS [facility]09-12-2023 15:05-0400 Systolic blood sanzttmc643 mm[Hg]Landon DOUGLAS [facility]08-21-2023 08:21-0400 Diastolic blood trvutuse86 mm[Hg]Vicky Castillo [facility]08-21-2023 08:21-0400Heart rate62 /minAmanda Ontela [facility]08-21-2023 08:21-0400 Respiratory rate16 /minAmanda Ontela [facility]08-21-2023 08:21-0400 Systolic blood qeaccbmm672 mm[Hg]Vicky Castillo [facility]08-18-2023 10:45-0400 Diastolic blood tptnzegs89 mm[Hg]Prasad Avalos [facility]08-18-2023 10:45-0400Heart rate70 /minJohn Robbie [facility]08-18-2023 10:45-0400Mean blood insoqqxx06 mm[Hg]Prasad Avalos [facility]08-18-2023 10:45-0400 Respiratory rate20 /minJohn Robbie [facility]08-18-2023 10:45-7532NvA9% (BldA) [Mass fraction]96 %Prasad Avalos [facility]08-18-2023 10:45-0400 Systolic blood oexmdarh581 mm[Hg]Prasad Avalos [address] [place], [place] 9258608-18-2023 09:25-0400 Diastolic blood jeifnzfg36 mm[Hg]Prasad Avalos [address]08-18-2023 09:25-0400Heart rate71 /minPrasad Avalos [address] [place], [place] 2264508-18-2023 09:25-0400Mean blood ljfbfzfe83 mm[Hg]Prasad Avalos [address]08-18-2023 09:25-0400 Respiratory rate17 /minPrasad Avalos [address] [place], [place] 9258608-18-2023 09:25-6962CaE3% (BldA) [Mass fraction]99 %Prasad Avalos [address] [place], [place] 9258608-18-2023 09:25-0400 Systolic blood rorbtwmu491 mm[Hg]Prasad Avalos [address]08-18-2023 08:54-0400gluc 109 mg/dLPrasad Avalos [address]08-18-2023 08:54-0400gluc Prasad Avalos [address] [place], [place] 9258608-18-2023 08:47-0400Body ijnkdzrrbmf13.06 [degF]Prasad Avalos [address] [place], [place] 2264508-18-2023 08:47-0400 Diastolic blood oiscidlk698 mm[Hg]Prasad Avalos [address] [place], [place] 2264508-18-2023 08:47-0400Heart rate81 /minPrasad Avalos [address] [place], [place] 2264508-18-2023 08:47-0400 Respiratory rate20 /minPrasad Avalos [address] [place], [place] 2264508-18-2023 08:47-9429HiY7% (BldA) [Mass fraction]97 %Prasad [facility]valos [facility]08-18-2023 08:47-0400 Systolic blood yjkggbca583 mm[Hg]Prasad [facility]valos [facility]07-11-2023 09:05-0400 Diastolic blood arjbmwhe30 mm[Hg]Vicky LAST [facility]07-11-2023 09:05-0400Mean blood wkjgkgao804 mm[Hg]Vicky LAST [facility]07-11-2023 09:05-0400 Systolic blood eadyphem474 mm[Hg]Vicky LAST [facility]07-11-2023 08:55-0400Blood Pressure LocationAmanvlad LAST [address] [place], [place] 7620107-11-2023 08:55-0400 Diastolic blood abxwhreb71 mm[Hg]Vicky LAST [facility]07-11-2023 08:55-0400Heart rate66 /minVicky LAST [facility]07-11-2023 08:55-1842EwW3% (BldA) [Mass fraction]97 %Vicky LAST [facility]07-11-2023 08:55-0400 Systolic blood fqpdmoqp693 mm[Hg]Vicky LAST [facility]07-03-2023 13:54-0400 Diastolic blood hbhabwtj93 mm[Hg]Demar Trammell [facility]07-03-2023 13:54-0400 Diastolic blood zraokoii60 mm[Hg]Demar Trammell [facility]07-03-2023 13:54-0400Heart rate72 /Hugh Pradoner [facility]07-03-2023 13:54-0400Heart rate62 /Hugh Pradoner [facility]07-03-2023 13:54-0400Mean blood mm[Hg]Demar Trammell [facility]07-03-2023 13:54-0400 Respiratory rate14 /minDemar Pradoner [facility]07-03-2023 13:54-0400 Systolic blood ccvzbhak494 mm[Hg]Demar Trammell [facility]07-03-2023 13:54-0400 Systolic blood wimvjjry711 mm[Hg]Demar Trammell [facility]06-16-2023 10:40-0400 Diastolic blood lchxtzuq35 mm[Hg] NILL [facility]06-16-2023 10:40-0400Heart rate69 /minMichael NILL [facility]06-16-2023 10:40-0400 Respiratory rate32 /minMichael NILL [facility]06-16-2023 10:40-2846PmE8% (BldA) [Mass fraction]96 % NILL [facility]06-16-2023 10:40-0400 Systolic blood cyvnowrp858 mm[Hg] NILL [facility]06-16-2023 10:30-0400 Diastolic blood xijjhjwk02 mm[Hg] NILL [facility]06-16-2023 10:30-0400Heart rate65 /minMichael NILL [facility]06-16-2023 10:30-0400 Respiratory rate20 /minMichael NILL [facility]06-16-2023 10:30-7908KxR4% (BldA) [Mass fraction]95 % NILL [facility]06-16-2023 10:30-0400 Systolic blood twmfmnky23 mm[Hg]Michael ROLANDL [facility]06-16-2023 10:25-0400 Diastolic blood ynpwlqbh89 mm[Hg] NILL [facility]06-16-2023 10:25-0400Heart rate69 /minMichael NILL [facility]06-16-2023 10:25-0400 Respiratory rate17 /minMichael NILL [facility]06-16-2023 10:25-0145IfI6% (BldA) [Mass fraction]94 %Michael ROLANDL [facility]06-16-2023 10:25-0400 Systolic blood zofprphf802 mm[Hg]Michael [facility]OLADNL [facility]06-16-2023 10:20-0400Blood Pressure LocationMichael NILL [facility]06-16-2023 10:15-0400Blood Pressure LocationMichael NILL [facility]06-16-2023 10:15-0400Body ywnmgkiwtlv75.8 [degF] NILL [facility]06-16-2023 09:47-0400 Respiratory rate18 /minMichael NILL [facility]06-16-2023 09:24-0400Blood Pressure LocationMichael NILL [facility]06-16-2023 09:24-0400Body aqnhqsvndkb12.8 [degF] NILL [facility]05-30-2023 11:37-0400Heart rate78 /minChioshduncan Valeri [facility]05-30-2023 11:37-3621LqG1% (BldA) [Mass fraction]98 %Demar Valeri [facility]05-30-2023 11:37-0400 Diastolic blood hkixzqgo33 mm[Hg]Demar Valeri [facility]05-30-2023 11:37-0400Mean blood xwnfiiua18 mm[Hg]Demar Valeri [facility]05-30-2023 11:37-0400 Systolic blood wqzdjdpy584 mm[Hg]Demar Valeri [facility]05-30-2023 11:33-0400 Diastolic blood wzjlnadp659 mm[Hg]Demar Valeri [facility]05-30-2023 11:33-0400Heart rate91 /minChioshua Valeri [facility]05-30-2023 11:33-0400 Respiratory rate14 /minJoshua Valeri [facility]05-30-2023 11:33-8720GaK0% (BldA) [Mass fraction]99 %Demar Valeri [facility]05-30-2023 11:33-0400 Systolic blood mm[Hg]Demar Trammell [facility]05-30-2023 10:56-0400Heart rate89 /Hugh Pradoner [address] [place], [place] [id number] 10:56-1842YrO5% (BldA) [Mass fraction]100 %Demar Trammell [address] [place], [place] [id number] 10:56-0400 Diastolic blood fqytoriz82 mm[Hg]Demar Trammell [address] [place], [place] [id number] 10:56-0400Mean blood nnitiqdh521 mm[Hg]Demar Trammell [address] [place], [place] [id number] 10:56-0400 Systolic blood gdswwjzi010 mm[Hg]Demar Trammell [address] [place], [place] [id number] 10:56-0400Body kqfhunnfabp00.06 [degF]Demar Trammell [address] [place], [place] [id number] 10:56-0400 Respiratory rate12 /Hugh Trammell [address] [place], [place] [id number] 12:32-0400 Diastolic blood hnbeyhra08 mm[Hg]Demar Trammell [address] [place], [place] [id number] 12:32-0400Heart rate62 /Hugh Trammell [address] [place], [place] [id number] 12:32-0400Mean blood mm[Hg]Demar Trammell [address] [place], [place] [id number] 12:32-0400 Respiratory rate12 /Hugh Trammell [address] [place], [place] [id number] 12:32-0400 Systolic blood utgzyvat112 mm[Hg]Demar Trammell [facility]05-05-2023 13:22-0400Blood Pressure LocationMichael NILL [facility] Gsscewim25-22-0051 13:22-0400Diastolic blood kyecapom79 mm[Hg] NILL [facility] Kxcwtggx29-18-5485 13:22-0400Heart rate 72 /minMichael NILL [facility] Oexkejgt17-65-5046 13:22-0400 Respiratory rate16 /minMichael NILL [facility] Kskrfdzi43-17-8032 13:22-0400Systolic blood fcdesbnj439 mm[Hg] NILL [facility] Xglyxkmb74-29-1203 09:28-0400Blood Pressure LocationAmanda SHALA [facility]07-12-2022 09:28-0400 Diastolic blood mm[Hg]Vicky LAST [facility]07-12-2022 09:28-0400Heart rate73 /minAmanda SHALA [facility]07-12-2022 09:28-0400 Respiratory rate18 /minAmanda SHALA [facility]07-12-2022 09:28-4569CaY8% (BldA) [Mass fraction]99 %Vicky LAST [facility]07-12-2022 09:28-0400 Systolic blood zumvjoan051 mm[Hg]Vicky LAST [facility] Encounters Encounter DateEncounter TypeCare ProviderFacilityStart: 08-07-2025 End: 80-78-7652Jplkds flowsheetMelkarla Sheffield [facility] Start: 08-07-2025 End: 38-07-9851Fzomuu flowsheetMelkarla Sheffield [facility] Start: 08-07-2025 End: 36-47-4013axsmubjuwlQzsluns Kelbley PTANOMS [facility] Physical TherapyComment on above:Trochanteric bursitis, right hip (Primary Dx); Other spondylosis with myelopathy, lumbar regionStart: 08-04-2025 End: 46-40-5312Qqxnim flowsheetSammantha Pyle PTNOMS [facility] Start: 08-04-2025 End: 09-76-2750Psxklz flowsheetSammantha Pyle [facility] Start: 08-04-2025 End: 64-65-1707rctzqqmknsEmyrluftx Pyle PT[facility] Comment on above:Trochanteric bursitis, right hip (Primary Dx)Start: 05-02-2025 End: 90-75-7793Wvypgo outpatient [facility] Reid Sal MD Work Phone: [facility]othanComment on above:White coat syndrome with diagnosis of hypertension (Primary Dx); Chest pain, unspecified type; Gastroesophageal reflux disease, unspecified whether esophagitis present; Ventricular ectopic beats; BMI 27.0-27.9,adult; Never smoked tobacco; HyperthyroidismStart: 05-02-2025 End: 63-77-3790ilfntlrdcpDPCDRGK TRABOULSSICleveland Clinic [facility] AmbulatoryStart: 04-24-2025 End: 60-05-2394Ccmyerdhj Lincoln RAWLS CI PTComment on above:PT CX 04/26/25; PT on-holdStart: 04-18-2025 End: 67-92-6409Vxarfg Bethel RAWLS CI PTStart: 04-18-2025 End: 27-56-1525Gctxkr Bethel MUNOZMS CI PTStart: 04-18-2025 End: 64-10-0900upbufkiircJgaerofJúnior RAWLS CI PTComment on above:Other spondylosis with myelopathy, lumbar region (Primary Dx)Start: 04-14-2025 End: 59-73-5716Bgdwcu flowsKellee Terry PTANOMS CI PTStart: 04-14-2025 End: 04-18-5289Ufzrfx Bethel Terry PTANOMS CI PTStart: 04-14-2025 End: 20-91-1401kwaupmhujiCuquzxp Lawrence PTANOMS CI PTComment on above:Other spondylosis with myelopathy, lumbar region (Primary Dx)Start: 04-12-2025 End: 96-67-7040kfruafcjteFrzakmn Lawrence PTANOMS CI PTComment on above:Other spondylosis with myelopathy, lumbar region (Primary Dx)Start: 04-10-2025 End: 53-42-2963Dvqzir flowsKellee Terry PTANOMS CI PTStart: 04-10-2025 End: 23-15-0696Yxcyxj Bethel Terry PTANOMS CI PTStart: 04-10-2025 End: 27-18-0816qwgwbqzbdsElcwlkq Lawrence PTANOMS CI PTComment on above:Other spondylosis with myelopathy, lumbar region (Primary Dx)Start: 04-07-2025 End: 53-25-7772Rgaiat flowsheetMarshflores Brink PTANOMS CI PTStart: 04-07-2025 End: 86-28-7721Jlnunz flowsheetMarshall Brink PTANOMS CI PTStart: 04-07-2025 End: 21-05-3403lvmjvwwzmgWzhiwqdn Brink PTANOMS CI PTComment on above:Other spondylosis with myelopathy, lumbar region (Primary Dx)Start: 04-05-2025 End: 33-22-5398Vfdhwk flowsheetSammantha Pyle PTNOMS CI PTStart: 04-05-2025 End: 63-30-4608Wqsage flowsheetSammantha Pyle PTNOMS CI PTStart: 04-05-2025 End: 69-76-8020roqnnanpmbHykegchgv Pyle PTNOMS CI PTComment on above:Other spondylosis with myelopathy, lumbar region (Primary Dx)Start: 04-03-2025 End: 03-59-4028oiesqqtqqgDsffgsrcy Pyle PTNOMS CI PTComment on above:Other spondylosis with myelopathy, lumbar region (Primary Dx)Start: 04-03-2025 End: 40-14-0613Ngpmmd flowsheetSammantha Pyle PTNOMS CI PTStart: 04-03-2025 End: 53-74-2200Hbssao flowsheetSammantha Pyle PTNOMS CI PTStart: 03-31-2025 End: 67-47-1798Guxhtz flowsheetMarshall Brink PTANOMS CI PTStart: 03-31-2025 End: 15-23-7340Gvnbhc flowsheetMarshall Brink PTANOMS CI PTStart: 03-31-2025 End: 34-66-3271abgteblyosIjhgixxz Brink PTANOMS CI PTComment on above:Other spondylosis with myelopathy, lumbar region (Primary Dx)Start: 03-29-2025 End: 83-50-0670Spoumt flowsheetSammantha Pyle PTNOMS CI PTStart: 03-29-2025 End: 55-52-7298Pcjrxv flowsheetSammantha Pyle PTNOMS CI PTStart: 03-29-2025 End: 29-48-4884tfuudbejtwIsfzqjnhw Pyle PTNOMS CI PTComment on above:Other spondylosis with myelopathy, lumbar region (Primary Dx)Start: 03-27-2025 End: 92-87-2931Ustjyh flowsheetSammantha Pyle PTNOMS CI PTStart: 03-27-2025 End: 54-16-0100Hbtxco flowsheetSammantha Pyle PTNOMS CI PTStart: 03-27-2025 End: 60-58-8575lgfvvszudrIiaqtazif Pyle PTNOMS CI PTComment on above:Other spondylosis with myelopathy, lumbar region (Primary Dx)Start: 03-24-2025 End: 88-55-1033Fndlzr flowsheetRmtangela Terry PTANOMS CI PTStart: 03-24-2025 End: 25-94-0699Nkvyxk flowsheetRmtangela Terry PTANOMS CI PTStart: 03-24-2025 End: 25-71-0291yprqeeioniTaooumd Lawrence PTANOMS CI PTComment on above:Other spondylosis with myelopathy, lumbar region (Primary Dx)Start: 03-22-2025 End: 78-07-3682Hbtmpp flowsKellee Terry PTANOMS CI PTStart: 03-22-2025 End: 89-59-0631Vblnfj Bethel Terry PTANOMS CI PTStart: 03-22-2025 End: 24-39-0435csejoyzdgsKfxodxs Lawrence PTANOMS CI PTComment on above:Other spondylosis with myelopathy, lumbar region (Primary Dx)Start: 03-20-2025 End: 23-42-9756Fojqsx Bethel Terry PTANOMS CI PTStart: 03-20-2025 End: 86-66-6772Mhtdda Bethel Terry PTANOMS CI PTStart: 03-20-2025 End: 74-81-1862hpyoqnxodoHbzohbk Lawrence PTANOMS CI PTComment on above:Other spondylosis with myelopathy, lumbar region (Primary Dx)Start: 03-17-2025 End: 13-31-2966Izkoem Bethel Terry PTANOMS CI PTStart: 03-17-2025 End: 74-77-6538Pgjzwo Bethel Terry PTANOMS CI PTStart: 03-17-2025 End: 91-41-0482gjxdetzqybAaqavuf Lawrence PTANOMS CI PTComment on above:Other spondylosis with myelopathy, lumbar region (Primary Dx)Start: 03-14-2025 End: 16-62-5967ssgpalymlkHdfjwbi Lawrence PTANOMS CI PTComment on above:Other spondylosis with myelopathy, lumbar region (Primary Dx)Start: 03-14-2025 End: 88-46-1500Coxuzg Bethel Terry PTANOMS CI PTStart: 03-14-2025 End: 63-31-1789Phsumz Bethel Terry PTANOMS CI PTStart: 03-10-2025 End: 55-23-2569vezktswswhXVAULFGOE EDENILSONNot AvailableStart: 01-23-2025 End: 74-86-9906yyfftjhjthGMTanja KurtzFacility:FTMCStart: 01-23-2025 End: 84-93-9482Ryymmwi encounter procedureSandeep Bryant [facility] Start: 01-17-2025 End: 49-85-5990Nrljjlz encounter procedureVick Mcghee MD Work Phone: [facility] [address] Work Phone: Start: 01-17-2025 End: 98-12-5751baaeuanseyZeetczm M Hoy MD Work Phone: [facility] Work Phone: Start: 01-12-2025 End: 26-08-0511Zev-admission assessmentThlane Brito Mcqueen [facility] Start: 12-21-2024 End: 98-56-7641moxkwfsydbVFQ RAMEYNot AvailableStart: 12-19-2024 End: 53-39-0344gcuffbkjgrBbeuqs A RicharFacility:FTMCStart: 12-19-2024 End: 44-19-2841Wjpgndz encounter procedureThlane Brito Richar [facility] Start: 12-14-2024 End: 68-63-3840Qccgmtyun Result EncounterAntionette LOPEZ Work Phone: noms External Department UnsolicitedStart: 12-14-2024 End: 21-60-1013Ljaatmmhb Result EncounterAntionette LOPEZ Work Phone: NOMS External Department UnsolicitedStart: 11-28-2024 End: 33-90-9816Jwgrqz flowsheetAntionette LOPEZ Work Phone: NOMS BCP OBStart: 11-28-2024 End: 56-72-3930Fncpfl flowsheetAntionette LOPEZ Work Phone: noMS BCP OBStart: 11-28-2024 End: 77-16-7972Okccyhmea Result EncounterAntionette LOPEZ Work Phone: NO External Department UnsolicitedStart: 11-28-2024 End: 99-80-7058Ufpdfif encounter procedureAntionette Trey LOPEZ Work Phone: NO HealthcareStart: 11-28-2024 End: 19-54-5571Ndcoyobj preventive med est patient 65yrs& olderAntionette LOPEZ Work Phone: NOBY BCP OBComment on above:Well woman exam with routine gynecological exam; Osteoporosis, post-menopausal (CMS/HCC); Breast cancer screening by mammogram; Pelvic pain in femaleStart: 11-28-2024 End: 78-06-6426ltympadcupTXZ RAMEYNot AvailableStart: 11-15-2024 End: 46-36-3858uasgpsooldOfccufj OJUKWUFacility:FTMCStart: 07-56-3763Wmmcklerz department patient visitAstrit H HajdariFacility:FTMCStart: 10-05-2024 End: 15-25-5430dwjdexshqsGXYX NONEFacility:FTMCStart: 10-05-2024 End: 55-02-3843Ewwwepj encounter procedureThlane Alisha Richar [facility] Start: 09-02-2024 End: 72-90-3332djzbugyejvGqmatrl M Hoy MD Work Phone: [facility] Work Phone: Start: 09-02-2024 End: 32-77-9937Oobfkpjv ReferredVick Mcghee MD Work Phone: [facility] Path Spec Keesha HospStart: 08-19-2024 End: 77-07-9957czlwberclzROBE WERVEYFacility:FTMCStart: 08-19-2024 End: 26-77-1756Vhozzti encounter procedureSAM [facility] Start: 08-11-2024 End: 21-55-6197Vhbobw zaydaYossifabiolamini Audie Villalobos DPM Work Phone: noms PODIATRYStart: 08-11-2024 End: 51-48-9929Nnpgmi Giovanni Bronson Villalobos DPM Work Phone: noms PODIATRYStart: 08-11-2024 End: 18-17-5560Rxegqq outpatient visit 15 minutesZinamini Villalobos DPM Work Phone: noms PODIATRYComment on above:Pes valgus, acquired, right (Primary Dx); Pes valgus, acquired, left; Gastrocnemius equinus of right lower extremity; Gastrocnemius equinus of left lower extremity; Pain in both feet; Cramping of feet; Bilateral leg cramps; 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Start: 08-11-2024 End: 29-59-8639npdukjosdlUVJQFXN W CLARKENot AvailableStart: 08-11-2024 [facility] PPGStart: 07-13-2024 End: 41-89-7312wxauefaosxFffzSoheila KaurFacility:FTMCStart: 07-13-2024 End: 29-81-5229Nspikfz encounter procedureWillie Kaur [facility] Start: 07-06-2024 End: 43-03-6770tstdmucobxIxetcgue A. JonesFacility:FTMCStart: 07-06-2024 End: 39-95-3985Buigcnm encounter procedureClaudio [facility] Start: 07-06-2024 End: 75-44-6209audgpsfptvDaspdrv HoyFacility:FTMCStart: 07-06-2024 End: 45-34-2178Vziglpi encounter procedureClaudio [facility] Start: 05-08-2024 End: 40-32-5626Zdmxunsbs department patient visitChekotoney Solares [facility] Start: 12-18-2023 End: 15-15-8008ampugogpojVpej D. ChristoffersonFacility:FTMCStart: 12-18-2023 End: 56-89-8166Tjcbohj encounter procedureWillie Kaur [facility] Start: 78-05-8252Wpyqjyimr Result EncounterAntionette LOPEZ Work Phone: noms External Department UnsolicitedStart: 12-02-2023 Clinisync Result EncounterAmy Trey LOPEZ Work Phone: noms External Department UnsolicitedStart: 12-02-2023 Telephone encounterAntionette LOPEZ Work Phone: noms BCP OBStart: 66-06-6689Qqrbpergi Result Encounter Antionette LOPEZ Work Phone: noms External Department UnsolicitedStart: 11-30-2023 Clinisync Result EncounterAntionette LOPEZ Work Phone: noms External Department UnsolicitedStart: 11-25-2023 Clinisync Result EncounterAmy Trey LOPEZ Work Phone: noms External Department UnsolicitedStart: 11-25-2023 Clinisync Result EncounterAmy Trey LOPEZ Work Phone: noms External Department UnsolicitedStart: 11-25-2023 End: 42-29-4741Teffxpd encounter procedureAntionette LOPEZ Work Phone: [facility] Work Phone: Start: 11-25-2023 End: 95-13-5198Whcxxsqb preventive med est patient 65yrs& olderAntionette LOPEZ Work Phone: noms BCP OBComment on above:Well woman exam with routine gynecological exam; Breast cancer screening by mammogram; Other osteoporosis, unspecified pathological fracture presence (CMS/HCC); Restless legs; Well woman examStart: 11-20-2023 End: 43-95-4127luxjswbbffDVChely CastilloFacility:FTMCStart: 11-20-2023 End: 05-36-1700Svat ManagementSpalding Rehabilitation Hospital [facility] Start: 11-17-2023 End: 22-96-4294awesfctwxzThagmv J NEWTONFacility:FTMCStart: 11-17-2023 End: 16-52-2001Vqrvahs encounter procedureLandon DOUGLAS [facility] Start: 10-26-2023 End: 06-57-9456Mrcqjgh encounter procedureVicky [facility] Start: 10-26-2023 End: 97-88-2824gehedkudkaNooqjc SpringerFacility:FTMCStart: 10-26-2023 End: 76-04-2855Mpph [facility] start: 10-07-2023 End: 08-75-3805faaynoatrmNuqgumha A. JonesFacility:FTMCStart: 10-07-2023 End: 34-09-2827Yado Ken [facility] Start: 09-22-2023 End: 04-26-1892nejxhjlftbIxfxix D GoldnerFacility:FTMCStart: 09-22-2023 End: 78-11-9628Dosi Guille Trammell [facility] Start: 08-06-2023 End: 60-81-0099cgkfmvqyjnRvftl Brittni CelestedFacility:FTMCStart: 08-06-2023 End: 02-61-2236Qtrcdjl encounter procedureBasebartolome Husain [facility] Start: 07-23-2023 End: 02-24-7606ciigflcflmLyotu Brittni CelestedFacility:FTMCStart: 07-14-2023 End: 90-74-9559Lkchgcdjppav screening statusAidanvlad [facility] Daytontart: 07-14-2023 End: 46-01-2080Zwwadub encounter procedureVicky MCDOWELLVika [facility] Start: 06-30-2023 End: 67-45-2072Chioimu encounter procedureLandon DOUGLAS [facility] Start: 06-08-2023 End: 26-45-7674Dgaf Deirdre Castillo [facility] Start: 06-05-2023 End: 16-50-8250Gsdyfbalv department patient visitPrasad Avalos [facility] Start: 05-04-2023 End: 23-31-2817Nbtn ManagementVicky Castillo [facility] Start: 04-28-2023 End: 51-55-2847Jwkyvtr encounter procedureVicky LAST [facility] Start: 04-20-2023 End: 60-55-6851Akjp ManagementDemar Trammell [facility] Start: 04-15-2023 End: 11-46-3454Kzvpkpr encounter procedureMichael R NILL General Surgery Nill/Said Keesha Start: 04-03-2023 End: 93-24-8198Udtsuec encounter procedureMichael R NILL [facility] Start: 03-17-2023 End: 50-19-0038Jssi [facility] Valeri [facility] Start: 03-03-2023 End: 53-37-3181eonnstmesySW VICK HOY .Facility:G6Jreoj: 02-23-2023 End: 32-32-4384Snce [facility] Valeri [facility] Start: 02-20-2023 End: 52-13-6015Jydapjm encounter procedureMichael R NILL General Surgery Nill/Said Keesha Start: 02-09-2023 End: 29-05-1151dnowayasysCL VICK HOY .Facility:O7Fprci: 11-05-2022 End: 22-46-5732nuaxmmbrszID VICK HOY .Facility:T8Cqgyo: 10-27-2022 End: 95-39-6293Paawypc encounter procedureAmanda L STANG [facility] Start: 10-22-2022 End: 68-02-5624yrslzqjbrwLO JUAN CARLOS NARVAEZ .Facility:N1Eckdl: 09-24-2022 End: 78-37-9143qkrbxjqgmxDC GREGORY KARASIK .Facility:A7Bijmn: 04-29-2022 End: 06-14-1862Jolsnjy encounter procedureAidanvlad LAST [facility] Start: 12-05-2017 End: 15-90-3256CwlmtamlpnEcelqyt WijaspalFacility:[facility] Procedures DateProcedureProcedure DetailPerforming ClinicianStart: 26-90-1762Trg routine ecg w/least 12 lds w/i&rMourhaf Anitra CANTRELL Work Phone: Start: 25-51-3481IV TOMOSYNTHESIS SCREENING Brandy LOPEZ Work Phone: Start: 32-85-9208JvvrzkinkhkWnw Ramey PA Work Phone: Start: 96-34-2910GFC,APTIMA HPV,AGE GDWilliam LOPEZ Work Phone: Start: 69-94-2011ET myelogram of lumbar regionSAM DEWITTPRATIBHA Start: 75-56-5670DEG THYROXINE (T4) FREEAntionette LOPEZ Work Phone: Start: 59-05-1720IJL LIPID PROFILE (FASTING)Antionette LOPEZ Work Phone: Start: 99-99-6590BMN THYROID STIM HORMONEAntionette LOPEZ Work Phone: Start: 12-76-5670HPW CMP (CMP) (FOR REMOTE [facility] USE)Antionette LOPEZ Work Phone: Start: 02-05-2552YpihwtiywjpHvo Ramey PA Work Phone: Start: 36-50-6310MDO,APTIMA HPV,AGE GDWilliam LOPEZ Work Phone: Start: 05-81-0456Xeistpfwn of nerve root of lumbar spine using fluoroscopic guidanceVicky Castillo comment on above:right L5/S1 TFESI- 50% relief x 3 days then no reliefStart: 88-15-2707Jnwwcchoy of steroid into hip jointAidanvlad Castillo comment on above:Right Hip Bursa Injection-50% relief Start: 59-11-8501PgzvedeqxdaZsh Ramey PA Work Phone: Start: 91-21-5142PpvcfvlhrjcUjxmedf NILL Start: 46-20-1808VglswqurbxnjbdgdgdlnbsjkqxUokdgmp NILL Start: 72-88-6030Tlohbdbbs of nerve root of lumbar spine using fluoroscopic guidanceMichael NILL Comment on above:75% reliefStart: 18-46-0451Wiugrwxepce Antionette LOPEZ Work Phone: Start: 54-78-0732Bloccup catheterizationVicky LAST Start: 07-60-0526CqfyljtsunbdvfpdxrbmoprjwtJikmwy STANG Start: 29-91-5825OjrchfkdbyreEzhqgo STANG Start: 69-27-8466Zajathbow structure (palatine) (body structure)Vicky LAST Comment on above:TonsilectomyArthroplasty of knee NILPriyank EsophagogastroduodenoscopyVicky LAST Comment on above:during early 40sKnee region structure (body structure)Vicky LAST Comment on above:Knee replacement x 2Tonsillectomy and adenoidectomyMichael NILL Ureterorenoscopy with fragmentation and removal of calculus of kidneyVicky LAST Plan of Treatment DateCare ActivityDetailAuthorStart: 62-56-3895Uqbubdvvv for malignant neoplasm of colonNOMS HealthcareStart: 19-26-5938HPY High Risk: (Elderly (60+) or Population) (1 - 1-dose 75+ series)RSV High Risk: (Elderly (60+) or Population) (1 - 1-dose 75+ series)[facility] Start: 21-53-2886Atuwqxtav for malignant neoplasm of breastMammogramNOMS HealthcareStart: 12-07-2025 End: 28-04-0044Ajpiqwl encounter lvxlcporn97/19/2026 3:00 PM EST Office Visit [facility] [address] [facility] [address] [place] [address] Yodit Sal MD [address] [facility] [address] [place] [address] [facility]Start: 12-04-2025 End: 84-86-8526Zwqvgwf encounter procedureNOMS BCP OBStart: 08-24-2025 End: 26-97-6145nflifjkyfi35/06/2025 10:30 AM EST Treatment [facility] [address] [place] [address] Dee Christine PTANOMS Lb Physical TherapyStart: 08-22-2025 End: 61-31-1073zemursyxzt24/04/2025 8:30 AM EST Treatment [facility] [address] [place], [id number] Dee Christine PTANOMS Lb Physical TherapyStart: 08-17-2025 End: 99-74-5290fboodywtsa58/30/2025 10:30 AM EDT Treatment [facility] [address] [place] [address] Dee Christine PTANOMS Lb Physical TherapyStart: 08-14-2025 End: 54-63-3607idcwwzprucOGWZ Lb Physical TherapyStart: 08-11-2025 End: 43-78-8217mfegmqjaen08/24/2025 3:00 PM EDT Treatment [facility] [address] [place], [id number] Dee Christine PTANOMS Lb Physical TherapyStart: 08-07-2025 End: 62-80-7523vqhtyutgvvIEPH Lb Physical TherapyComment on above:Arrived Start: 08-04-2025 End: 18-30-3985onkqqamvhc84/17/2025 9:30 AM EDT Evaluation [facility] [address] [place] [address] Sofi Pyle, PT ArrivedNOMS Lb Physical TherapyComment on above: ArrivedStart: 34-50-3114Sydehajkl vaccinationNOMS HealthcareStart: 05-02-2025 End: 60-41-2371cpcshgcoki45/15/2025 9:30 AM EDT Treatment [facility] [address] [place] [address] Kenny Terry PTANOMS CI PTStart: 04-26-2025 End: 74-09-1305gjedgyubdm20/09/2025 9:00 AM EDT Treatment [facility] [address] [place] [address] Kenny Terry PTANOMS CI PTStart: 04-25-2025 End: 86-92-9707btglvkzcsn04/08/2025 9:30 AM EDT Treatment [facility] [address] [place] [address] Sofi Pyle PTNOMS CI PTStart: 04-18-2025 End: 01-08-4660puegdrsknkTGWI CI PTStart: 04-14-2025 End: 51-93-1537kxmfdunefpAWZT CI PTStart: 04-12-2025 End: 45-32-3639jqlmzyefrwOAAH CI PTStart: 04-10-2025 End: 31-37-0835kshsiufzyl67/23/2025 8:30 AM EDT Treatment [facility] [address] [place] [address] Kenny Terry PTANOMS CI PTStart: 04-07-2025 End: 34-41-1183pxpaostnfnULNT CI PTStart: 04-05-2025 End: 47-04-2086hfdxxcsxjp18/18/2025 11:00 AM EDT Treatment [facility] [address] [facility] [address] [place] [address] Sofi Pyle PTNO CI PTStart: 04-03-2025 End: 23-42-9896rbdhscoxih10/16/2025 2:00 PM EDT Treatment [facility] [address] [facility] [address] [place] [address] Sofi Pyle PTNO CI PTStart: 03-31-2025 End: 45-67-9547jirwzobexxVTJI CI PTStart: 03-29-2025 End: 53-98-6424eymlydgrmr30/11/2025 11:00 AM EDT Treatment [facility] [address] [facility] [address] [place] [address] Sfoi Pyle PTNOMS CI PTStart: 03-27-2025 End: 46-28-7786eemybefufw55/09/2025 12:00 PM EDT Treatment [facility] [address] [facility] [address] [place] [address] Sofi Pyle PTNO CI PTStart: 03-24-2025 End: 04-37-2414tyctjpbcnx79/06/2025 12:00 PM EDT Treatment [facility] [address] [facility] [address] [place] [address] Kenny Terry PTANOMS CI PTStart: 03-22-2025 End: 37-40-9726vokwrdbjpv29/04/2025 12:00 PM EDT Treatment [facility] [address] [facility] [address] [place] [address] Kenny Terry PTANOMS CI PTStart: 03-20-2025 End: 95-15-0534hlaxawludkDNLS CI PTComment on above:ArrivedStart: 03-17-2025 End: 79-52-7562jnplyywadjROYR CI PTComment on above:ArrivedStart: 03-14-2025 End: 31-08-2922qhhorzzeax63/27/2025 3:00 PM EDT Treatment [facility] [address] [place] [id number] Kenny Terry, AUTO TESTER ArrivedNOMS CI PTComment on above:ArrivedStart: 70-62-7873Dlksthrc measurementMercy Health St. Elizabeth Young[facility] Hospitaltart: 78-50-6845Arexkjxd to Scl-[address] [facility] Hospitaltart: 33-70-2781Yucburpip complement CH[address] Elizabeth [facility] Hospitaltart: 57-84-5382QBZ antibody measurementMercy Health St. [facility] Hospitaltart: 60-38-4592GepsubagmMercy Health St. [facility] Hospitaltart: 12-21-2024 End: 49-77-1598Iwibsbdjaeyg / ancillary services zlcepvvagc67/05/2025 9:30 AM EST Ancillary Procedure [facility] [address] [place] [id number] [facility] OBStart: 59-85-9049Zbcwhvqon for malignant neoplasm of breastMammogramNOMS HealthcareStart: 11-28-2024 End: 60-40-1231CPX Skeletal system Views for bone densityDEXA bone density Imaging Routine Osteoporosis, post-menopausal (CMS/HCC) Expected: 11/28/2024 (Approximate), Expires: 11/28/2025NOMS HealthcareComment on above:Expected: 11/28/2024 (Approximate), Expires: 11/28/2025Start: 11-28-2024 End: 93-94-0843US Breast - bilateral ScreeningBilateral screening mammogram Imaging Routine Breast cancer screening by mammogram Expected: 11/28/2024 (Approximate), Expires: 01/26/2026[facility] Work Phone: comment on above:Expected: 11/28/2024 (Approximate), Expires: 01/26/2026Start: 11-28-2024 End: 84-03-9682QS PelvisUS pelvis Imaging Routine Pelvic pain in female Expected: 11/28/2024 (Approximate), Expires: 11/28/2025NO[facility] HealthcareComment on above:Expected: 11/28/2024 (Approximate), Expires: 11/28/2025Start: 11-28-2024 End: 97-22-1647Fnwmdto encounter procedureNOFAIRCHILD MEDICAL [facility]ENTER OBComment on above:Arrived Start: 08-11-2024 End: 96-73-4736Sdbktkp encounter dfxqeinrx39/24/2024 11:00 AM EDT Office Visit [facility] [address] [place] [address] Sydnie Villalobos, DPM [address] [place] [address] [facility] PODIATRYComment on above:ArrivedStart: 64-17-4526GPRVW-19 Vaccine ( season)COVID-19 Vaccine ( season)[facility]Start: 41-03-0944Pumocjtzp vaccinationInfluenza Vaccine (#1)[facility] HealthcareStart: 11-25-2023 End: 22-16-9914Qajlv 1996 panel - Serum or PlasmaLipid panel Lab Routine Well woman exam with routine gynecological exam Well woman exam Expected: 11/25/2023 (Approximate), Expires: 11/25/2024NOIA HealthcareComment on above:Expected: 11/25/2023 (Approximate), Expires: 11/25/2024Start: 11-25-2023 End: 86-61-7983PJ Breast - bilateral ScreeningBilateral screening mammogram Imaging Routine Breast cancer screening by mammogram Expected: 11/25/2023, Expires: 01/23/2025[facility] Work Phone: comment on above:Expected: 11/25/2023, Expires: 01/23/2025Start: 08-52-2481Knmvvpdkf for malignant neoplasm of breastMammogram [facility] HealthcareStart: 50-54-1497Dmcpnvhul vaccinationInfluenza Vaccine (#1)[facility] HealthcareStart: 66-81-0391Dpylvzlysxbm Vaccine: 65+ Years (1 - PCV)Pneumococcal Vaccine: 65+ Years (1 - PCV)[facility] CenterStart: 20-99-1610Omrxzzmzsxqo Vaccine: 65+ Years (1 of 1 - PCV)Pneumococcal Vaccine: 65+ Years (1 of 1 - PCV) [facility] CenterStart: 63-08-6054Yptdjcybwwsq vaccinationPneumococcal Vaccine (1 of 1 - PCV)[facility]: 33-12-2599Hvqbtguwotbf Vaccine: 65+ Years (1 of 1 - PCV)Pneumococcal Vaccine: 65+ Years (1 of 1 - PCV) [facility] CenterStart: 69-75-5006UUkL/Tdap/Td Vaccines (1 - Tdap)DTaP/Tdap/Td Vaccines (1 - Tdap)[facility]: 88-73-9836Ayeetudyz C screeningHepatitis C ScreeningAkron Children's Hospital: 78-66-9500Bxyuw panelLipid PanelUnAvita Health System [facility]: 1955Medicare Annual Wellness VisitMedicare Annual Wellness Visit (AWV) [facility]: 44-35-2876Xkvlauasr for malignant neoplasm of colonDAVIS [facility] HealthcareAdenosine monophosphate.cyclic [Moles/volume] in Serum or PlasmaBucyrus Community HospitalBeta 2 glycoprotein 1 IgG Ab [Units/volume] in SerumBucyrus Community HospitalBeta 2 glycoprotein 1 IgM Ab [Units/volume] in SerumBucyrus Community HospitalCardiolipin IgA Ab [Units/volume] in Serum by ImmunoassayBucyrus Community Hospital Cardiolipin IgG Ab [Units/volume] in Serum by ImmunoassayBucyrus Community HospitalCardiolipin IgM Ab [Units/volume] in Serum by ImmunoassayBucyrus Community HospitalCBC W Auto Differential panel - BloodCBC and differential Lab Routine Well woman exam with routine gynecological exam Well woman exam Ordered: 11/25/2023NOIA HealthcareComment on above:Ordered: 4Centromere protein B Ab [Units/volume] in SerumBucyrus Community HospitalChromatin Ab [Units/volume] in Serum or [facility] DaytonComplement C3 [Mass/volume] in Serum or [facility] DaytonComplement C4 [Mass/volume] in Serum or [facility] DaytonComprehensive metabolic 2000 panel - Serum or PlasmaComprehensive metabolic panel Lab Routine Well woman exam with routine gynecological exam Well woman exam Ordered: 11/25/2023[facility] CenterComment on above:Ordered: 11/25/2023Hemoglobin A1c measurementHemoglobin A1c Lab Routine Well woman exam with routine gynecological exam Well woman exam Ordered:11/25/2023[facility] CenterComment on above:Ordered: 11/25/2023Histone IgG Ab [Units/volume] in Serum by [facility] HospitalHomogenous nuclear Ab pattern [Titer] in [facility]woodsJo-1 extractable nuclear Ab [Units/volume] in [facility] SouthwoodsLupus anticoagulant [Interpretation] in Platelet poor [facility] SystemNuclear Ab [Titer] in [facility] SouthwoodsReagin Ab [Presence] in Serum by [facility] HospitalRheumatoid factor [Units/volume] in Serum or [facility] Hospitaljogrens syndrome-A extractable nuclear Ab [Units/volume] in [facility] Hospitaljogrens syndrome-B extractable nuclear Ab [Units/volume] in Serum [facility] Hospitalmith extractable nuclear Ab [Units/volume] in [facility] SouthwoodsTHIN PREP TIS PAP AND HR HPV DNATHIN PREP TIS PAP AND HR HPV DNA Pathology and Cytology Routine Well woman exam with routine gynecological exam Ordered: 11/25/2023[facility] CenterComment on above: Ordered: 11/25/2023THIN PREP TIS PAP AND HR HPV DNATHIN PREP TIS PAP AND HR HPV DNA Pathology and Cytology Routine Well woman exam with routine gynecological exam Ordered: 11/28/2024[facility] CenterComment on above:Ordered: 11/28/2024 Thrombin timeBucyrus Community HospitalThyroglobulin Ab [Units/volume] in Serum or [facility] DaytonThyroperoxidase Ab [Units/volume] in Serum or [facility] DaytonThyrotropin [Units/volume] in Serum or PlasmaTSH Lab Routine Well woman exam with routine gynecological exam Well woman exam Ordered: 11/25/2023NOIA HealthcareComment on above:Ordered: 11/25/2023 Immunizations Immunization DateImmunizationNotesCare UowihosaKtoweuil12-61-4049NKXS-BzJ-5 (COVID-19) mRNA BNT-162b2 vaxMichael NILL General Surgery Ucczutdm27-38-4426GUKR-IvN-3 (COVID-19) mRNA BNT-162b2 vaxMichael NILL General Surgery Oiwlvmcp44-62-2106jxvmou vaccine recombinantAmy Trey PA Work Phone: [facility] CenterHjqrdhigum56-61-7286whknbi vaccine recombinantAmy Trey PA Work Phone: [facility] CenterNEGATED: Highlighted row has not occurred!43-62-1907oijaqxhlj virus vaccine, unspecified formulationAidanvlad LAST St. [facility] HospitalNEGATED: Highlighted row has not occurred!77-73-8584ccslxjysr virus vaccine, unspecified formulation Vickyjayden LAST [facility] Payers DatePayer CategoryPayerPolicy [id number] supplemental policy (as second payer)[employer] Member Subscriber Plan / Payer (Effective 2024- 2029) Name: Chloe Agarwal Relation to Subscriber: Self Name: Chloe Agarwal Payer ID: Not on file Group ID: Not on file Type: Not on file Address: [id number] [place] [id number] Pdos-bvj51-44gwu59-41-0127Ypqidoj Health InsuranceAARP 1.2.840.015001.1.13.693.2.7.9.365753.890709.54756-99-7173Dxiodla 1.2.840.945686.1.13.693.2.7.3.544260.315 2022Medicare 1.2.840.034795.1.13.693.2.7.3.5228[id number] [id number] [id number] 2..840.1.021673.3.57[id number] 2.16.840.1.564155.3.579.2.52982-85-2550Tdsaaol4127541 2.16.840.1.758903.3.579.2.79880-50-9384Dzdkywr4990044 2..840.1.746627.3.579.2.34677-19-4818Utfkepq3731094 2.16.840.1.494259.3.57[id number] 2.16.840.1.478138.3.57[id number] 2.16.840.1.781069.3.579.2.69229-58-2766Yediyga11334085 2.16.840.1.326357.3.579.[id number] 2.16.840.1.469588.3.579.2.29862-41-1551Gorvawk54221754 2.16.840.1.086189.3.579.2.97583-41-4356Kfnbvcp26506413 2.16.840.1.627739.3.579.2.17659-96-1705Xuklwnj43807846 2.16.840.1.522645.3.579.2.48634-50-6617Mbuqcsu14466371 2..840.1.955768.3.579.2.44655-53-0811Ncmejgh06750054 2..840.1.259327.3.579.2.18117-50-1203Rcbxeuu37497350 2..840.1.871141.3.579.2.84346-33-0416Ufcodej02043648 2..840.1.510293.3.579.2.56895-35-6187Rmnonrg04799335 2..840.1.655447.3.579.2.24593-75-2003Typjmvj14776606 2.16.840.1.650066.3.579.2.699140-05-3799Oebspnz94060451 2.16.840.1.077472.3.579.2.79409-80-5965Wjzzysw90872806 2.16.840.1.944902.3.579.2.91984-15-1967Qgfkqhy13120784 2.16.840.1.557929.3.579.2.33549-08-2767Hdjcfvq40626808 2.16.840.1.789628.3.579.2.50395-92-1471Jpcfqlk47613200 2.16.840.1.791820.3.579.2.33405-49-0438Ldofmnu96359574 2.16.840.1.561544.3.579.2.21594-66-6896Iwrraxy83419894 2.16.840.1.619658.3.579.2.91179-17-1741Kwaiqdh12203225 2.16.840.1.498130.3.579.2.20256-84-9111Eotduyb09136390 2.16.840.1.141886.3.579.2.43668-83-0032Hkvhewg94882787 2.16.840.1.324869.3.579.2.81594-68-3024Jbyjvyv64966743 2..840.1.470906.3.579.2.12467-13-6504Jfnwlis088211129 2..840.1.544070.3.579.2.002019-47-0502Wutnfht02631877 2..840.1.587699.3.579.2.820837-69-0004Sipekvt23317935 2..840.1.027113.3.579.2.557578-17-3254Zshwqov56201167 2..840.1.153960.3.579.2.417762-39-1605Bsqtmpn15714963 2.16.840.1.395699.3.579.2.361333-49-0995Tpkiyfq94026086 2.16.840.1.274158.3.579.2.688666-62-3146Qzrbxcd07793061 2.16.840.1.485561.3.579.2.500773-28-8979Jdjzkzh51255361 2.16.840.1.036059.3.579.2.223790-58-1110Mfrhzdm35437223 2.16.840.1.053771.3.579.2.594589-15-4001Titbtnm07657093 2.16.840.1.628164.3.579.2.848037-62-8386Iwlxfad54897217 2.16.840.1.600282.3.579.2.150040-13-2605Jukmwws94263254 2.16.840.1.318560.3.579.2.690341-70-8248Jcgurzk45416485 2..840.1.978124.3.579.2.715543-39-1709Ytqehet74272184 2..840.1.506046.3.579.2.973478-40-1169Uozbnzg52995094 2..840.1.351989.3.579.2.381140-43-4859Mopvahn5861734 2.16.840.1.764237.3.579.2.491559-61-2891Lacpdfb4074363 2.16.840.1.894463.3.579.2.929318-66-4614Ubitbtg3539625 2..840.1.240027.3.579.2.043698-30-8732Ofvlrqw9900922 2..840.1.402693.3.579.2.237956-24-7476Wkdpiyd7886422 2.16.840.1.623678.3.579.2.056149-36-4190Cxyahdb4884791 2.16.840.1.272080.3.579.2.067150-64-4575Xdjxovw0251289 2.16.840.1.317[id number] 5l64l10n-su2c-7443-vopv-54z92[id number] k91p1286-r1q8-6d13-x122-0f4x74u5s7qfGxvrycuCmofjssfp VOZz7397778192 89yy686v-5nve-6er5-612w-si99l1042073Ztqyrvm88772813 2.16.840.1.929077.3.579.2.930Uiupxqy19106508 2.16.840.1.124764.3.579.2.531 Social History DateTypeDetailFacilityStart: 12-25-2021 End: 64-57-4174Vurwqdq smoking statusNever smoked tobacco (finding)[facility] HospitalComment on above:Denies.Start: 11-24-2023 End: 16-42-1242Vho Assigned At BirthFeKettering Health Main Campustart: 91-82-0781Yylwkjd smoking statusNeverGeneral Surgery BellevueComment on above: Denies.TobaccoSt. Charles HospitalComment on above:deniesTobacco smoking statusAccess Hospital Daytontart: 05-20-2023 End: 62-58-9039Rwltyfj use and exposureSmokeless tobacco non-userNOMS Healthcare Start: 11-25-2023 End: 81-70-1034Lpkgsuw intakeCurrent drinker of alcohol (finding)[facility] Start: 11-24-2023 End: 45-82-2864Vcgspxe of Social functionNOMS HealthcareHow often to you have a drink containing alcohol?Monthly or lessNOMS HealthcareHow many standard drinks containing alcohol do you have on a typical day?1 or 2NOMS HealthcareHow often do you have 6 or more drinks on 1 occasion?NeverNOMS HealthcareStart: 05-20-2023 Alcohol Comment1 or 2 drinks/day, monthly or less; Caffeine: 1-2 cups/dayNOMS HealthcareStart: 15-55-8980Yfl Assigned At BirthNot on [facility] Tobacco smoking status NHISUnknown if ever smokedKettering Health Washington Township Work Phone: Start: 09-18-2019 End: 82-99-3102IhmXroxiu (finding)[facility] Hospitaltart: 51-05-6595Nop Assigned At BirthFePremier Health Miami Valley Hospitaltart: 34-96-0087Wklbbop CommentThe [facility] Hospital [facility] Work Phone: Functional Status WbsbAbksjascwuVzcyabKzsmshxu97-78-6671Eycaabexwz StatusN/[facility]12-18-2024Functional StatusN/[facility]11-01-2024 Functional StatusN/[facility]09-25-2024Functional StatusN/A [facility]09-18-2024Functional StatusN/[facility]07-21-2024Functional StatusN/[facility] 83-52-2967Akvkjqyplk StatusLouis [facility]02-02-2024Functional StatusN/[facility]01-30-2024Functional StatusLouis Stokes [facility]01-08-2024Functional StatusNMemorial Health [facility] 47-51-5053Nhojwizsvy StatusN/[facility]12-05-2023Functional StatusN/[facility]09-26-2023Functional StatusLouis [facility]09-12-2023Functional StatusLouis [facility] 09-43-3736Cwfrqfdfjq StatusN/[facility]08-18-2023Functional StatusN/[facility]07-17-2023Functional StatusNMemorial Health System [facility]07-11-2023Functional StatusLouis Stokes [facility] 58-22-4419Mxbomlysif StatusN/[facility]06-16-2023Functional StatusN/[facility]05-30-2023Functional StatusN/[facility]05-08-2023Functional StatusN/AFTrinity Health System West Campus 49-41-7271Kszvfpcxge StatusN/AGeneral Surgery Htohlvhe77-12-4801Icnklfjggd StatusN/[facility] Clinical Notes 10-08-2021 to 08-04-2025 Note Date & DasmQcbeWqkqeros01-49-6610 History of Present illness Narrative* Sofi Edenilson, PT - 08/04/2025 9:30 AM EDT Images from the original note were not included. Physical Therapy Evaluation Visit Patient Name: Gladys Agarwal Today's Date: 08/04/2025 Encounter Diagnoses Name Primary? Trochanteric bursitis, right hip Yes Visit number: 1 Timed Code Treatment Minutes: 45 minutes Total Treatment Time: 55 minutes Time In: 920 Time Out: 1017 History: Pt underwent surgery [...] Subjective: right buttock and LE pain Pain: 6/10 Objective: PT Evaluation (08/04/2025) LUMBAR SPINE AROM: [...] to be instructed in home exercise program. Correction Goals: To be met in 10 weeks [...] Please sign below. Date: documented in this encounterCass Medical CenterUxxvktesfw90-05-7635 History of Present illness Narrative* Yodit Sal MD - 05/02/2025 1:10 PM EDT Cardiology Consultation- New Consult Reason for referral: Previous complaint of chest pain and PVCs Chief Complaint Patient presents with New Patient Visit Self referral. Discharge [facility] 04/25/25 HPI: Chloe Agarwal is a 69 y.o. female who was recently at [facility] for a brief episode of vertigo. This [...] a cardiac catheterization 2 years ago at [facility] by Dr. Douglas and this was negative. [...] By signing my name below, Nelly Kessler LPN , Augustus attest that this documentation has been prepared under the direction and in the presence of MD Gaudencio. Provider Attestation - Scribe documentation All medical record entries made by the Scribe were at my direction and personally dictated by me. Ihave reviewed the chart and agree that the record accurately reflects my personal performance of the history, physical exam, discussion and plan. [1] Family History Problem Relation Name Age of Onset Heart failure Mother Heart failure Father Hypertension Sister Hypertension Brother documented [facility] Work Phone: 1(578) 349-752107-15-2025 Instructions* Patient Instructions* Nelly Sargent LPN - 05/02/2025 1:10 PM [...] visit. [place] [facility] BMI was above normal measurement. Current weight: 63.5 kg (140 lb) Weight change since last visit (-) denotes wt loss 140 lbs Weight loss needed to achieve BMI 25: 12.3 Lbs Weight loss needed to achieve BMI 30: -13.3 Lbs Provided instructions on dietary changes Provided instructions on exercise. documented in this encounterC[facility] Hospital Work Phone: 1(715) 996-851907-10-2025 Telephone encounter Note* Telephone Encounter - Cynthia Alves - 04/27/2025 11:36 AM EDT He contacted noting 05/02 is needed to be CX as well. Next week she has a full week of appts due to severe vertigo episode she had sudden. I noted that was her last PT scheduled, he said he'd feel safer to put on-hold till recovery is met. [facility] Medical CenterIxdrphkqry54-25-6737 Miscellaneous Notes* Telephone Encounter - Cynthia Alves - 04/27/2025 11:36 AM EDT He contacted noting 05/02 is needed to be CX as well. Next week she has a full week of appts due to severe vertigo episode she had sudden. I noted that was her last PT scheduled, he said he'd feel safer to put on-hold till recovery is met. * Telephone Encounter - Cynthia Alves - 04/24/2025 10:45 AM EDT He called to cx her PT that was scheduled 04/26. When I asked to rs, he noted she is in the hospital right now and unable to be seen this week. He said there will be testing done to result on outcome; will fu pending PT next week. documented in this encounterCass Medical CenterCdasrxybyv45-78-7706 Telephone encounter Note* Telephone Encounter - Cynthia Alves - 04/24/2025 10:45 AM EDT He called to cx her PT that was scheduled 04/26. When I asked to rs, he noted she is in the hospital right now and unable to be seen this week. He said there will be testing done to result on outcome; will fu pending PT next week. [facility] Medical CenterSnwfyjettx96-56-2172 History of Present illness Narrative* Sofi Pyle, PT - 04/05/2025 11:00 AM EDT Images from the original note [...] to wear if walking long distances. Precautions: [place] Subjective: Pt states her back is feeling [...] exercises per grid to increase core and bilateralLE strength. Therapeutic Activity: Exercises to improve dynamic [...] due to pain and reports of LE fatigue.Will continue to progress as able. Outcome Measure: Back Index: 16/50 Rehab Diagnosis: low back pain, bilateral LE weakness, decrease mobility, difficulty walking Short Term Goal: To be met in 2 weeks Goal 1: Pt to be instructed in home exercise program. - met Correction Goals: To be met in 10 weeks [...] Please sign below. Date: documented in this encounterCass Medical CenterCdngekjaev37-96-6936 History of Present illness Narrative* Sofi Pyle, PT - 04/03/2025 2:00 PM EDT Images from the original note [...] to wear if walking long distances. Precautions: [place] Subjective: Pt states her left low back [...] exercises per grid to increase core and bilateralLE strength. Therapeutic Activity: Exercises to improve dynamic [...] seconds. Back Index Score 13/50. Will continue toprogress as pt tolerates. Outcome Measure: Back Index: 16/50 Rehab Diagnosis: low back pain, bilateral LE weakness, decrease mobility, difficulty walking Short Term Goal: To be met in 2 weeks Goal 1: Pt to be instructed in home exercise program. - met Correction Goals: To be met in 10 weeks [...] Please sign below. Date: documented in this encounterCass Medical CenterKpuoiwxzfs80-10-9133 History of Present illness Narrative* Sofi Pyle PT - 03/29/2025 11:00 AM EDT Images from the original note were not included. Physical Therapy Treatment Visit Patient Name: Galdys Agarwal Today's Date: 03/29/2025 Encounter Diagnoses Name [...] to wear if walking long distances. Precautions: [place] Subjective: Pt states her left low back [...] exercises per grid to increase core and bilateralLE strength. Including Nustep x10 minutes [place] Level 3.5 with HP to low back. [...] this date to address pain following exercises. Willcontinue to progress as pt tolerates. Outcome Measure: Back Index: 16/50 Rehab Diagnosis: low back pain, bilateral LE weakness, decrease mobility, difficulty walking Short Term Goal: To be met in 2 weeks Goal 1: Pt to be instructed in home exercise program. Correction Goals: To be met in 10 weeks [...] Please sign below. Date: documented in this encounterCass Medical CenterDvcqgcgsdp68-47-2126 History of Present illness Narrative* Sofi Pyle PT - 03/27/2025 12:00 PM EDT Images from the original note [...] to wear if walking long distances. Precautions: [place] Subjective: Pt states low back is a little sore today. Was in the car a lot over the weekend and also sitting for grandluz maria's recital yesterday and graduation on Thursday. Will [...] exercises per grid to increase core and bilateralLE strength. Including Nustep x8 minutes [place] Level 3.5. Therapeutic Activity: Exercises to improve [...] following lumbar surgery. Pt presents with complaints ofincrease pain this date following prolong sitting activities yesterday. Limited exercises this datedue to complaints of worsening pain with activity. Will continue to progress as pt tolerates. Outcome Measure: Back Index: 16/50 Rehab Diagnosis: low back pain, bilateral LE weakness, decrease mobility, difficulty walking Short Term Goal: To be met in 2 weeks Goal 1: Pt to be instructed in home exercise program. Correction Goals: To be met in 10 weeks [...] Please sign below. Date: documented in this encounterCass Medical CenterBfbpavchgz91-64-4397 History of Present illness Narrative* JESSICA Hunt - 11/28/2024 9:00 AM EST Reason for Appointment: Patient ID: Gladys Agarwal is a 69 y.o. female who presents for Gynecologic Exam Patient presents today for Annual Exam. MEDICATIONS Current Outpatient Medications Medication Instructions alendronate (FOSAMAX) 70 mg, Oral, Every 7 days, Take in the morning with a full glass of water, jennifer empty stomach, and do not take anything [...] Dr. Prasad Villalobos KNEE SURGERY Bilateral Left: 2006; Right: 2016 [place] LAPAROSCOPIC APPENDECTOMY 12/04/2017 [place] REMOVAL OF KIDNEY STONE 2008 REVIEW OF SYSTEMS Review of Systems: Review [...] nursing note reviewed. Exam conducted with a family engagement specialist present. Vitals: Estimated body mass index is [...] behalf of: JESSICA Hunt documented in this encounterCass Medical CenterOkidduavgz46-11-7096 NoteDischarge Summary Admission and Discharge Information Admitting Physician - Jayden Santos DO Consulting Physician - [facility] Cardio, XXXX Bryant CANTRELL, Baldomero Admitting Diagnoses: [...] followup appointment Patient Education Chest Wall Pain, Pnev-vj-PopeGkrgdyOhiohealth Mansfield HospitalComment on above:Result Comment: Electronically Signed By: Jayden Santos DO\.br\Date and Time Signed: 11/23/24 08:55 [id number] NoteEchocardiology Procedure Exam Date/Time Accession # Ordering Echo Transthoracic 11/16/2024 10:20 EST [id number] Jayden Santos DO Complete CPT code 07213 [id number] Reason for Exam (Echo Transthoracic Complete) Chest pain Report [facility] [address] [place] [address] Adult Echocardiogram Report Name: HCLOE AGARWAL Arlen Study Date: 11/16/2024 09:40 AM BP: 124/67 mmHg Patient Location: [address] [place] [address] Bed(s) [facility] : 1955 Gender: Female Height: 60 in [...] complete two-dimensional transthoracic echocardiogram was performed (2D, M- mode, spectral and color flow Doppler). Left Ventricle [...] Baldomero Hurtado MD Transcribed by: FABIOLA Technologist: [facility]01-29-2025 Note Consultation Note Chief Complaint chest pain [...] TMAX: 36.6 ???C(Axillary) HR: 47(Monitored) RR: 17 BP:101/66 SpO2: 96% HT: 152.4 cm WT: 75 [...] of bilateral lower e (more content not included)...[facility] Mansfield HospitalComment on above:Result Comment: Electronically Signed By: Bryant CANTRELL, Baldomero\.br\Date and Time Signed: 11/16/24 14:02 [id number] NoteHistory and Physical Chief Complaint Pt presents to [...] 13:41:00) Lymph Auto: 14.1 % (11/15/24 13:41:00) [place] Auto: 8 % (11/15/24 13:41:00) Eos Auto: 1.2 % (11/15/24 13:41:00) Basophil Auto: 0.9 % (11/15/24 13:41:00) Neutro Absolute: 6.8 E9/L (11/15/24 13:41:00) Lymph Absolute: 1.3 E9/L (11/15/24 13:41:00) [place] Absolute: 0.7 E9/L (11/15/24 13:41:00) Eos Absolute: [...] Problem List/Past Medical History (more content not included)...[facility] Mans[facility] HospitalComment on above:Result Comment: Electronically Signed By: Jayden Santos DO\.br\Date and Time Signed: 11/15/24 16:53 [id number] History of Present illness Narrative* Sydnie Audie Villalobos, DPM - 08/11/2024 11:00 AM EDT Images from the original note were not included. Subjective Patient ID: Gladys Agarwal is a 68 y.o. female who presents for Foot Pain (Chloe Agarwal star 68 y.o. female who presents with concerns [...] bothersome. She has seen her PCP and engine mechanic. She understands her water pill may be causing some of the cramping, but she was told she has to stay on it. She is trying to lose weig ht to improve her BP/HTN and her foot [...] mouth every 7 (seven) days Take in themorning with a full glass of water, on [...] mg by mouth. Do not crush or chew.,Disp: , Rfl: pantoprazole (ProtoNix) 40 MG EC [...] KNEE SURGERY Bilateral Left: 2005; Right: 2015 [place] LAPAROSCOPIC APPENDECTOMY 12/04/2017 [place] REMOVAL OF KIDNEY STONE 2007 Family History [...] due to weakness. WB heels are everted, withheel rise, heels invert but only to neutral. Both feet are pronated, forefoot into abductus and pesplanus deformity is noted. ROM: Ankle joint dorsiflexion is past neutral with knee extended and improves with knee flexed. STJROM are normal and pain free. There is [...] bilaterally there is pain with the 1st tarsometatarsaljoint on the left plantarly. More mild tenderness [...] is likely causing her multiple symptoms of cramping,medial foot pain, bunion pain. Currently the left foot is worse than the right. I discussed optionsof conservative versus surgical intervention. Patient states she [...] on a regular basis. She can take anti- inflammatories as needed. We also discussed stretching exercises [...] understanding. Sydnie Villalobos DPM documented in this encounterCass Medical [id number] NoteConsultation Note Patient is presenting with complaints of low back pain and left-sided radicular symptoms. This painis worse with standing walking and she notes [...] well as obtaining lumbar x-rays to better under stand the stability of the segment. We may [...] to evaluate if there is any instability atthe anterolisthesis segment at L5-S1 -We can consider referral to a surgeon if there is instability at her L5/S1 segment, we would consider referral to Dr. Martins or Dr. Tate Patient was counseled on the above diagnosis and treatment, all questions were answered and patientagrees to adhere to the plan above. Risk [...] call with any questions or concerns that arise.[facility] Mansfield HospitalComment on above:Result Comment: Electronically Signed By: Claudio Monroe DO\.br\Date and Time Signed: 07/06/24 16:52 [id number] Evaluation + Plan noteExtracted from:Title:chronic painAuthor:Claudio Monroe DODate: 07/06/24 Patient is presenting with c omplaints of [...] to evaluate if there is any instability atthe anterolisthesis segment at L5-S1 -We can consider referral to a surgeon if there is instability at her L5/S1 segment, we would consider referral to Dr. Martins or Dr. Tate Patient was counseled on the above diagnosis and treatment, all questions were answered and patientagrees to adhere to the plan above. Risk [...] Date:08/08/2024 08:15:00 AM Scheduled Provider:Claudio Monroe DO Location:.[facility] Appointment Type:Pain Management - Follow Up (FT) [facility] 07-21-2024 Evaluation + Plan noteExtracted from:Title: ED NoteAuthor:Nelson Solares DODate:05/08/24 Vertigo (R42: Dizziness and giddiness) Orders: lorazepam, [...] Stop date 05/08/24 7:45:00 EDT, STAT, Start date05/08/24 7:45:00 EDT, 05/08/24 7:45:00 EDT Add on [...] Diagnostic Tests Pending * Urine Culture 05/08/24 [facility]07-21-2024 Hospital Discharge instructions Patient Education 05/08/2024 [...] if you feel dizzy. General instructions Take yljm-yvn-qarbdkx and prescription medicines only as told by [...] provider. Document Revised: 09/04/2021 Document Reviewed: 09/04/2021 [employer] Patient Education 2022 [employer]Tour. 05/08/2024 09:33:58 Urinary Tract Infection, Adult Urinary [...] Treatment for this condition includes: Antibiotic medicine. Jehm-nbx-fibdsdu medicines to treat discomfort. Drinking enough water [...] Follow these instructions at home: Medicines Take fhzk-stw-syjswbs and prescription medicines only as told by [...] provider. Document Revised: 05/17/2021 Document Reviewed: 05/17/2021 [employer] Patient Education 2022 [employer]Tour. Follow Up Care 05/08/2024 07:16:07 With:Vick Mcghee Address: [address] [place] [phone] Business (1) When:05/11/2024 09:31:54 Comments:Call the office [...] you develop any new or worsening symptoms. [facility]07-21-2024 NoteED Patient Education Note Neurology Vertigo [...] you feel dizzy. General instructions ? Take etjz-tip-xdwjcpy and prescription medicines only as told by [...] provider. Document Revised: 09/04/2021 Document Reviewed: 09/04/2021 [employer] Patient Education ? 2022 SourceTour. Obstetrics and Gynecology Urinary Tract Infection, Adult [...] have certain medical conditions, (more content not included)...[facility] Telephone encounter Note* Telephone Encounter - JESSICA Hunt - 12/02/2023 10:41 AM EST Pt notified of wellness lab results and low tsh, t3 and t4 labs ordered for her as well. Pt states she will follow up with her primary care physician, DR Mcghee in next few weeks. She denies any symptoms at this time [facility] [id number] Miscellaneous Notes* Telephone Encounter - JESSICA Hunt - 12/02/2023 10:41 AM EST Pt notified of wellness lab results and low tsh, t3 and t4 labs ordered for her as well. Pt states she will follow up with her primary care physician, DR Mcghee in next few weeks. She denies any symptoms at this time documented in this encounterCass Medical [id number] History of Present illness Narrative* JESSICA Hunt [...] KNEE SURGERY Bilateral Left: 2005; Right: 2015 [place] LAPAROSCOPIC APPENDECTOMY 12/04/2017 [place] REMOVAL OF KIDNEY STONE 2007 Allergies Allergen [...] nursing note reviewed. Exam conducted with a family engagement specialist present. Vitals: Estimated body mass index is 33.22 kg/m as calculated from the following: Height as of this encounter: 5'. Weight as of this encounter: 170 lb 1.9 oz. BP: 120/84 No LMP recorded. Patient is postmenopausal. Assessment/Plan Encounter Diagnoses Name Primary? Well woman exam with routine gynecological exam Breast cancer screening by mammogram Other osteoporosis, unspecified pathological fracture presence ([facility]) Patient presents today for an annual exam. [...] behalf of: JESSICA Hunt documented in this encounterCass Medical [id number] Evaluation + Plan note Extracted from:Title:Pain Managment Follow upAuthor:Anna GAMEZ, AmandaDate: 11/20/23 Impression and Plan Patient is a 68-year-old [...] Date:12/18/2023 01:45:00 PM Scheduled Provider:Willie Kaur MD [facility] [place] App[facility] Type:Cardiology Follow Up (FT) [facility]01-08-2024 Evaluation + Plan noteExtracted from: Title:Pain Managment Follow upAuthor:Vicky Castillo PA-CDate:10/26/23 Impression and Plan Patient is a 68-year-old [...] left side and I would recommend trialing low- dose Lyrica. 25 mg once a day and if doing well can go to twice a day. Follow-up in 2 to 3 weeks for reevaluation of the x-ray. We also discussed the possibility of L5-S1 interlaminar epidural steroid injection but we will start with a new x-ray. OARRS reviewed ELVIS score: 30% Future Appointments Appointment Date:11/17/2023 11:30:00 AM Scheduled Provider:Landon DOUGLAS MD [facility] Type:Cardiology Follow Up (FT) Appointment Date:11/20/2023 01:15:00 PM Scheduled Provider:Vicky Castillo PA-C Location:.[facility] Appointment Type:Pain Management - Follow Up (FT) [facility]12-20-2023 Evaluation + Plan noteExtracted from: Title:Right L5/S1 transforaminal dural steroid injectionAuthor:Claudio Monroe DODate:10/07/23 Diagnosis: M54.16 Lumbar rad iculopathy Procedure: Right [...] 08:15:00 AM Scheduled Provider:Vicky Castillo PA-C Location:.[facility] Appointment Type:Pain Management - Follow Up (FT) Appointment Date:11/17/2023 11:30:00 AM Scheduled Provider:Landon DOUGLAS MD [facility]:Cardiology Follow Up (FT) [facility]12-20-2023 Note [id number]#1.00[facility]23 NoteDiagnosis: M54.16 Lumbar radiculopathy Procedure: [...] and agrees to comply to currently prescribed/recommended therapies.[facility] Comment on above:Result Comment: Electronically Signed By: Claudio Monroe DO.br\Date and Time Signed: 10/07/23 09:54 [id number] Evaluation + Plan note Extracted from:Title:FUVAuthor:Demar Trammell MD DDate:09/22/23 Impression and Plan 67-year-old female with severe right low back and leg pain consistent with lumbosacral radiculopathy that has returned after she was doing so well following previous transforaminal epidural steroid injections. I explained the likely Dallergy of her pain to the patient today. I suggested a right L5/S1 transforaminal epidural steroid injection to address her symptoms again. She received 90+ percentrelief of the radicular pain for 6+ months from the previous epidural steroid injection. I also suggested starting a Medrol Dosepak to help calm things down while she is waiting for the epidural steroid injection. If her symptoms complete resolve are are significantly improved from the Medrol Dosepa k she should cancel the injection appointment. Risk, benefits, and alternatives were reviewed with the patient. She wishes to proceed. Follow-up 2 weeks after the injection to assess response. Patient agrees with plan of care. Future Appointments Appointment Date:11/17/2023 11:30:00 AM Scheduled Provider:Landon DOUGLAS MD Location:FT.[facility]iology Clinic Appointment Type:Cardiology Follow Up (FT) [facility]08-21-2023 Evaluation + Plan noteExtracted from: Title:Pain Managment Follow upAuthor:Anna GAMEZ, ColtandaDate:06/08/23 Impression and Plan Patient is a 67-year-old female with a past medical history significant for lumbar neuritis, lumbardegenerative disc disease and trochanteric bursitis. At this [...] in her legs mainly at night but shewants to put this on hold and get her blood pressure taken care of. She will call us when this is under control to discuss further options. She was given our phone number. Questions and concerns wereall answered and discussed. She has since stopped the gabapentin over last 48 hours. ELVIS score: 24% Future Appointments Appointment Date:07/06/2023 11:00:00 AM Scheduled Provider:MISAEL CANTRELL, Landon Mckinley Location:FT.[facility] Appointment Type:Cardiology ED Follow Up (FT) [facility]08-18-2023 Evaluation + Plan noteExtracted from: Title:ED NoteAuthor:Prasad Avalos DODate:06/05/23 Dizziness (R42: Dizziness an d giddiness) Hypertension (I10: Essential (primary) hypertension) Orders: losartan, 50 mg = 1 tab(s), Oral, Daily, X 30 day(s), # 30 tab(s), Refills(s) 0, Pharmacy: [facility], 152.4, cm, 06/05/23 8:54:00 EDT, Height/Length [...] AM Scheduled Provider:Vicky Castillo PA-C Location:[facility] [place] Appointment Type:Pain Management - Follow Up (FT) Appointment Date:07/06/2023 11:00:00 AM Scheduled Provider:Landon DOUGLAS MD Location:FT.Cardiology Clinic Appointment Type:Cardiology ED Follow Up (FT) [facility]08-18-2023 Hospital Discharge instructions Follow Up Care 06/05/2023 08:40:51 With:Vick Mcghee Address: [address] [place], [place] [id number] Business (1) When:Within 3 Day(s) [facility]07-17-2023 Evaluation + Plan noteExtracted from: Title:Pain Managment Follow upAuthor:Vicky Castillo PA-CDate:05/04/23 Impression and Plan Patient is a 67-year-old female with a past medical history as needed significant for lumbar degenerative disease, lumbar neuritis, and trochanteric bursitis. Recent trochanteric bursa injection doneon 04/20/2023 has given her at least 50% relief and prior to that bilateral L5-S1 transforaminal epidural steroid injection also gave her 75% relief. She states that things are overall going very well.She is feeling better. She is more comfortable. [...] on gabapentin 300 mg twice daily to seeif we can get some better control of the cramping. How to start the medication was discussed. Patient side effects were discussed. At this time she is going to follow-up in 4 to 6 weeks. Call the clinic sooner if necessary. OARRS reviewed. ELVIS score: 16% Future Appointments Appointment Date:06/08/2023 08:15:00 AM Scheduled Provider:Vicky Castillo PA-C Location:[facility] Appointment Type:Pain Management - Follow Up (FT) [facility]06-16-2023 Evaluation + Plan noteExtracted from: Title:ANES Post-operative Note - GeneralAuthor:Lb Wu Jr., DO GDate: 04/03/23 Plan Transfer/Discharge: Transfer/Discharge Discharge when meets criteria ( From PACU to Ambulatory Surgery Unit, and To home ). Extracted from:Title:ANES Pre-operative Note - EndoAuthor:Lb Wu Jr., DO GDate:04/03/23 Plan [place] Society of Anesthesiologists (ASA) physical status classification: Class III. Anesthetic Preoperative Plan: Anesthesia General, and -TIVA. Future Appointments Appointment Date:04/07/2023 11:00:00 AM Scheduled Provider:Demar Trammell MD Location:FT.[facility] Appointment Type:Pain Management - Follow Up (FT) Appointment Date:04/28/2023 09:00:00 AM Scheduled Provider:Vicky LAST CNP Location:FT.Cardiology Clinic Appointment Type:Cardiology Follow Up (FT) [facility]06-16-2023 Hospital Discharge instructions Patient Education 04/03/2023 [...] unsweetened, w/added ascorbic acid 1 cup 0.5 [place] 1 cup 0.7 Vegetables Cooked Green beans 1 cup 4.0 Carrots 1/2 cup sliced 2.3 Peas 1 cup 8.8 Potato (baked, with skin) 1 medium potato 3.8 Raw [place] (with peel) 1 cucumber 1.5 Lettuce 1 [...] 8.7 Peanuts 1/2 cup 7.9 Chart from [facility] 2013. SEEK IMMEDIATE MEDICAL CARE IF: [...] of Agriculture (USDA) National Nutrient Database at: http://www.STARFACE.usda.gov/fnic/foodcomp/search/ Created using data from the USDA National Nutrient Database for Standard Reference. Available at http://www.STARFACE.Waspit.gov/fnic/foodcomp/search/. Information adapted from: [facility] Patient Information 2009 [employer]. [facility] 2012 http://www.[employer]/contents/tyanbipwayoc-ujwceag-kwexqz-the-basics 04/03/2023 10:24:14 Colonoscopy, Care After Surgery Salam [...] reduce GERD symptoms. Medicines. These may include: ?Zaln-zaa-wzzuidi antacids. ?Medicines that make your stomach empty [...] may include: ?Fatty foods, like fried foods. ?[place] fruits, like oranges or lemon. ?Other foods [...] Do not drink alcohol. General instructions Take tzvl-fqe-kagiagc and prescription medicines only as told by [...] provider. Document Revised: 08/19/2022 Document Reviewed: 09/05/2021 [employer] Patient Education 2022 [employer]Tour. 04/03/2023 10:24:03 Endoscopy, Care After Procedure [facility] Endoscopy Care After Procedure Please read the instructions outlined below and refer to this sheet in the next few weeks. These discharge instructions provide you with general information on caring [facility] Your doctor may also give you [...] Document Re-Released: 03/29/2007 ExitCare Patient Information 2009 [employer]. Follow Up Care 02/23/2023 10:35:27 With:Michael ALBRIGHT Address: [address] [place] [address] Business (1) When:[address] [facility]05-08-2023 Evaluation + Plan noteExtracted from: Title:NPVAuthor:Demar Trammell MD DDate:02/23/23 Impression and Plan 67-year-old female with significant low back and lower extremity pain consistent lumbar radiculitissecondary to spinal listhesis and foraminal stenosis at [...] Appointments Appointment Date:04/03/2023 10:30:00 AM Scheduled Provider: Location:[facility] Appointment Type:Surgery FT Appointment Date:04/28/2023 09:00:00 AM Scheduled Provider:Vicky LAST CNP Location:FT.Cardiology Clinic Appointment Type:Cardiology Follow Up (FT) [facility]12-21-2021 Hospital Discharge instructions Follow Up Care 10/08/2021 14:10:47 With:Landon Douglas MD Address: [place] [address]- [phone] When: Unknown [facility] Future Appointments Appointment Date:11/05/2022 11:30:00 AM Scheduled Provider:Landon Douglas MD Location:[facility] Appointment Type:Cardiology Follow Up (FT) Future Scheduled Tests Laboratory* Lipid Panel 09/05/21 Radiology* Echo Transthoracic Complete [facility]29/[facility] Future Appointments Appointment Date:11/05/2022 11:30:00 AM Scheduled Provider:Landon Douglas MD Location:[facility] Appointment Type:[facility] Future Appointments Appointment Date:02/23/2023 12:30:00 PM Scheduled Provider:Demar Trammell MD Location:[facility] [place] Appointment Type:Pain Management - New (FT) Appointment Date:04/28/2023 09:00:00 AM Scheduled Provider:Vicky LAST CNP Location:[facility] Appointment Type:Cardiology Follow Up (FT) General Surgery [place] Evaluation + Plan note Future Appointments Appointment Date:04/03/2023 10:30:00 AM Scheduled Provider: Location:[facility] Appointment Type:Surgery FT Appointment Date:04/07/2023 11:00:00 AM Scheduled Provider:Demar Trammell MD Location:[facility] [place] Appointment Type:Pain Management - Follow Up (FT) Appointment Date:04/28/2023 09:00:00 AM Scheduled Provider:Vicky LAST CNP Location:.Cardiology Clinic Appointment Type[facility] Future Appointments Appointment Date:04/20/2023 02:15:00 PM Scheduled Provider:Demar Trammell MD Location[facility] [place] Appointment Type:Pain Management - Office Injection (FT) Appointment Date:04/28/2023 09:00:00 AM Scheduled Provider:Vicky LAST CNP Location:[facility] Appointment Type:Cardiology Follow Up (FT) Appointment Date:05/04/2023 09:00:00 AM Scheduled Provider:Vicky Castillo PA-C Location:[facility] [place] Appointment Type:Pain Management - Follow Up (FT) General Surgery [place] Evaluation + Plan note Future Appointments Appointment Date:04/28/2023 09:00:00 AM Scheduled Provider:Vicky LAST CNP Location:[facility] Appointment Type:Cardiology Follow Up (FT) Appointment Date:05/04/2023 09:00:00 AM Scheduled Provider:Vicky Castillo PA-C Location:[facility] [place] Appointment Type:Pain Management [facility] Future Appointments Appointment Date:05/04/2023 09:00:00 AM Scheduled Provider:Vicky Castillo PA-C Location:[facility] [place] Appointment Type:Pain Management [facility] Future Appointments Appointment Date:07/14/2023 09:30:00 AM Scheduled Provider:Vicky LAST CNP Location:[facility] Appointment Type:[facility] Future Appointments Appointment Date:11/17/2023 11:30:00 AM Scheduled Provider:Landon DOUGALS MD Location:[facility] Appointment Type:Cardiology Follow Up (FT) Appointment Date:11/20/2023 01:15:00 PM Scheduled Provider:Vicky Castillo PA-C Location:[facility] [place] Appointment Type:Pain Management [facility] Future Appointments Appointment Date:11/20/2023 01:15:00 PM Scheduled Provider:Vicky Castillo PA-C Location:[facility] [place] Appointment Type:Pain Management - Follow Up (FT) Appointment Date:12/14/2023 10:45:00 AM Scheduled Provider:Barry Husain MD Location:FT.Pulmonary Clinic Appointment Type:Pulmonary New Patient (FT) Appointment Date:12/18/2023 01:45:00 PM Scheduled Provider:Willie Kaur MD Location:.Cardiology [facility] Appointment Type:Cardiology [facility] Future Appointments Appointment Date:08/08/2024 08:15:00 AM Scheduled Provider:Claudio Monroe DO Location:[facility] Appointment Type:Pain Management - Follow Up (FT) Appointment Date:01/12/2025 09:30:00 AM Scheduled Provider:Lokesh Mcqueen PA-C [facility] Follow Up (FT) [facility] Evaluation + Plan note Future Appointments Appointment Date:01/12/2025 09:30:00 AM Scheduled Provider:Lokesh Mcqueen PA-C Location:FT.[facility]iology Clinic Appointment Type:Cardiology Follow Up (FT) Future Scheduled Tests Radiology* CT Spine Lumbar w/ Contrast 08/15/24 [facility] Evaluation + Plan note Future Appointments Appointment Date:07/13/2024 03:00:00 PM Scheduled Provider:Willie Kaur MD [facility]Cardiology Follow Up (FT) Appointment Date:08/08/2024 08:15:00 AM Scheduled Provider:Claudio Monroe DO Location:[facility] Appointment Type:Pain Management - Follow Up (FT) [facility] Evaluation + Plan note Future Appointments Appointment Date:01/13/2025 10:15:00 AM Scheduled Provider:Lokesh Mcqueen PA-C Location:.Cardiology Clinic Appointment Type:Cardiology Follow Up (FT) Future Scheduled Tests Radiology* CT Spine Lumbar w/ Contrast 08/15/24 [facility] evaluation + Plan note Future Appointments Appointment Date:01/23/2025 02:30:00 PM Scheduled Provider:Baldomero Hurtado MD Location:.Cardiology Clinic Appointment Type:Cardiology Inpatient Follow Up (FT) Future Scheduled Tests Radiology* CT Spine Lumbar w/ Contrast 08/15/24 [facility] evaluation + Plan note Future Appointments Appointment Date:01/23/2025 02:30:00 PM Scheduled Provider:Radu Kurtz MD Location:FT.[facility] Appointment Type:Cardiology Inpatient Follow Up (FT) Future Scheduled Tests Radiology* CT Spine Lumbar w/ Contrast 08/15/24 [facility] evaluation + Plan note Future Appointments Appointment Date:07/26/2025 01:00:00 PM Scheduled Provider:Radu Kurtz MD Location:[facility] Appointment Type:Cardiology Follow Up (FT) Future Scheduled Tests Radiology* CT Spine Lumbar w/ Contrast 08/15/24 [facility] evaluation note* Diagnosis Well woman exam with routine gynecological exam Routine gynecological examination Breast cancer screening by mammogram Other osteoporosis, unspecified pathological fracture presence ([facility]) Restless legs Restless legs syndrome (RLS) Well [...] this encounter [facility] noteNo assessment information availableKettering Health [facility] Work Phone: evaluation note* Diagnosis Well woman exam with [...] lumbar region- Primary documented in this encounter [facility] HealthcareEvaluation note* Diagnosis Other spondylosis with myelopathy, lumbar region- Primary documented in this encounter [facility] HealthcareEvaluation note* Diagnosis Other spondylosis with myelopathy, lumbar region- Primary documented in this encounter [facility] HealthcareEvaluation note* Diagnosis Other spondylosis with myelopathy, lumbar region- Primary documented in this encounter [facility] HealthcareEvaluation note* Diagnosis White coat syndrome with diagnosis of hypertension- Primary Chest pain, unspecified type Gastroesophageal reflux disease, unspecified whether esophagitis present Ventricular ectopic beats Other premature beats BMI 27.0-27.9,adult Never smoked tobacco Hyperthyroidism Thyrotoxicosis without mention of goiter or other cause, without mention of thyrotoxic crisis or storm documented in this encounter [facility] Work Phone: Evaluation note* Diagnosis Trochanteric bursitis, right hip- Primary documented in this encounter [facility] HealthcareEvaluation note* Diagnosis Trochanteric bursitis, right hip- Primary Other spondylosis with myelopathy, lumbar region documented [facility] this encounter [facility] Narrative No data available for this section [facility]Holifepoint hospitals Discharge instructions No data available for this section [facility] HospitalProgress note No data available for this section [facility]Real[facility] Narrative* Rehabilitation - Outpatient (Routine) - AuthorizedSpecialtyDiagnoses / ProceduresReferred By ContactReferred To ContactPhysical Therapy Diagnoses Other spondylosis with myelopathy, lumbar region Procedures MT PHYSICAL THERAPY EVALUATION LOW COMPLEX 20 MINS MT OFFICE/OUTPATIENT [facility] 60 MINUTES Kath Carson MD [address] [place] [address] Dr Veloz [address] [address] Phone: tel: fax: Sofi Pyle, PT Referral IDStatusReasonStart DateExpiration DateVisits RequestedVisits [id number]/23/202512/30 [facility] for visit Narrative* Rehabilitation - Outpatient (Routine) - AuthorizedSpecialtyDiagnoses / ProceduresReferred By ContactReferred To ContactPhysical Therapy Diagnoses Troch Bursitis, Right Procedures MT PHYSICAL THERAPY EVALUATION LOW COMPLEX 20 MINS MT OFFICE/OUTPATIENT NEW HIGH MDM 60 MINUTES Kath Carson MD [address] [place] [address] Phone: tel: fax: Sofi Pyle, PT Referral IDStatusReasonStart DateExpiration DateVisits RequestedVisits [id number]/17/20254/515 [facility] HealthcareReason for visit Narrative* Rehabilitation - Outpatient (Routine) - AuthorizedSpecialtyDiagnoses / ProceduresReferred By ContactReferred To ContactPhysical Therapy Diagnoses Troch Bursitis, Right Procedures MT PHYSICAL THERAPY EVALUATION LOW COMPLEX 20 MINS MT OFFICE/OUTPATIENT NEW HIGH MDM 60 MINUTES Kath Carson MD [address] [place], [place] [id number] Phone: tel: fax: Sofi Pyle, PT Referral IDStatusReasonStart DateExpiration DateVisits RequestedVisits [id number]/17/202512/ [facility] Summary Purpose Family History No [...] section and content) DATE CREATED AUTHOR 04/15/2018 [facility] DATE CREATED AUTHOR AUTHOR'S ORGANIZ ATION 03/04/2023 [facility] DATE CREATED AUTHOR AUTHOR'S ORGANIZ ATION 05/10/2024 [facility] DATE CREATED AUTHOR AUTHOR'S ORGANIZ ATION 07/17/2024 [facility] DATE CREATED AUTHOR AUTHOR'S ORGANIZ ATION 08/12/2024 [facility] DATE CREATED AUTHOR AUTHOR'S ORGANIZ ATION 11/17/2024 [facility] DATE CREATED AUTHOR AUTHOR'S ORGANIZ ATION 02/06/2025 [facility] DATE CREATED AUTHOR AUTHOR'S ORGANIZ ATION 04/06/2025 [facility] DATE CREATED AUTHOR AUTHOR'S ORGANIZ ATION 05/06/2025 [facility] DATE CREATED AUTHOR AUTHOR'S ORGANIZ ATION 08/08/2025 [facility] EPIC Care Team (unrecognized sect ion and content) Team MemberRelationshipSpecialtyStart DateEnd Date Vick Mcghee MD [address] [place] [address] PCP - GeneralFamily Medicine05/21/23Team MemberRelationshipSpecialtyStart DateEnd Date Vick Mcghee MD [address] [place] [address] PCP - GeneralFamily Medicine05/21/23Team MemberRelationshipSpecialtyStart DateEnd Date Vick Mcghee MD [address] [place] [facility] [address] [facility] - [facility]05/21/23Team MemberRelationshipSpecialtyStart DateEnd Date Vick Mcghee MD [address] [place] [facility] [address] PCP - [facility]05/21/23Team MemberRelationshipSpecialtyStart DateEnd Date Vick Mcghee MD [address] [place] [facility] [address] PCP - GeneralP[facility]05/21/23Team MemberRelationshipSpecialtyStart DateEnd Date Vick Mcghee MD [address] [place] [facility] [address] PCP - GeneralP[facility]05/21/23 Team Status: Active Member Role Status Benigno Mcghee MD Primary Care Provider Active Team Status: Inactive Member Role Status Benigno Mcghee MD Primary Care Provider Active Start: September 02, 2024 End: September 02, 2024NON STAFFAttending ProviderActiveStart: September 02, 2024 End: September 02, 2024Team MemberRelationshipSpecialtyStart DateEnd Date Vick Mcghee MD [address] [place] [facility] [address] P[facility] - [facility] Medicine05/21/23Team MemberRelationshipSpecialtyStart DateEnd Date Vick Mcghee MD [address] [place] [facility] [address] PCP - [facility]Bel[facility] Medicine05/21/23 Team Status: Inactive Member Role Status Benigno Mcghee MD Primary Care Provider Active Start: January 17, 2025 End: January 17, 2025MattOmer Cisneros ProviderActiveStart: January 17, 2025 End: January 17, 2025Team MemberRelationshipSpecialtyStart DateEnd Date Vick Mcghee MD PCP - [facility]05/21/23Team MemberRelationshipSpecialtyStart DateEnd Date Vick Mcghee MD PCP - [facility]05/21/23Team MemberRelationshipSpecialtyStart DateEnd Date Vick Mcghee MD PCP - [facility]05/21/23Team MemberRelationshipSpecialtyStart DateEnd Date Vick Mcghee MD PCP - [facility]05/21/23Te MemberRelationshipSpecialtyStart DateEnd Date Vick Mcghee MD PCP - [facility]05/21/23Team MemberRelationshipSpecialtyStart DateEnd Date Vick Mcghee MD PCP - [facility]05/21/23Team MemberRelationshipSpecialtyStart DateEnd Date Vick Mcghee MD PCP - [facility]05/21/23Team MemberRelationshipSpecialtyStart DateEnd Date Vick Mcghee MD PCP - GeneralFamily Medicine05/21/23Team MemberRelationshipSpecialtyStart DateEnd Date Vick Mcghee MD PCP - GeneralFamily Medicine05/21/23Team MemberRelationshipSpecialtyStart DateEnd Date Vick Mcghee MD PCP - GeneralFamily Medicine05/21/23Team MemberRelationshipSpecialtyStart DateEnd Date Vick Mcghee MD PCP - GeneralFamily Medicine05/21/23Team MemberRelationshipSpecialtyStart DateEnd Date Vick Mcghee MD PCP - GeneralFamily Medicine05/21/23Team MemberRelationshipSpecialtyStart DateEnd Date Vick Mcghee MD PCP - GeneralFamily Medicine05/21/23Team MemberRelationshipSpecialtyStart DateEnd Date Vick Mcghee MD PCP - GeneralFamily Medicine05/21/23Team MemberRelationshipSpecialtyStart DateEnd Date Vick Mcghee MD PCP - GeneralFamily Medicine05/21/23Team MemberRelationshipSpecialtyStart DateEnd Date Vick Mcghee MD [address] [place] [address] PCP - GeneralFamily Medicine05/02/25Team MemberRelationshipSpecialtyStart DateEnd Date Vick Mcghee MD PCP - GeneralFakyly Medicine05/21/23 Reason for Visit (unrecogniz ed section and content) ReasonCommentsWell Women VisitReasonCommentsFoot PainChloe Agarwal is a 68 y.o. female who presents with concerns of redness on the bottom, pain, leg cramps. Pain is worse when laying down, toes curl and pain shoots up her leg. SS 7.5ReasonCommentsGynecologic ExamReasonCommentsNew Patient VisitSelf referral. Discharge [facility] 04/25/25SpecialtyDiagnoses / ProceduresReferred By ContactReferred To Contact Diagnoses Chest pain, unspecified type Procedures ECG 12 Lead Yodit Sal MD [address] [facility] 2, [address] [address] Phone: tel: fax: Referral IDStatusReasonStart DateExpiration DateVisits RequestedVisits [id number]/15/20257/15/974532BmhyzlAlnay DateCommentsPT CX 04/26/2507PT on-hold04/27/2025 Goals (unrecognized section and content) Goals may [...] BE BASED ON THE PRIMARY CLINICAL RECORDS. [facility] [employer] [facility]. provides no warranty or guarantee of the accuracy or completeness of information in this document.
--- OUTSIDE RECORDS SUMMARY | 2025-08-09 09:16 | XMS_ITS | Clinical Summary ---
Author Organization [facility] Address [address] [place] [address] Phone Care Team Providers Care Building Economist Name Role Phone Vick Zelaya MD Primary Care Provider [phone] Allergies Active AllergyReactionsCriticalityNoted DateCommentsBaclofenNausea/vomiting 05/02/20256177TxwocniqknEetgbFqvb72/20/2024 Other Reaction(s): Vomiting GabapentinHeadache,Cardiac arrhythmia/oscglb2209/15/20230382XiuczhfsctIfeif40/03/2023 Other Reaction(s): Coughing Sulfa (Sulfonamide Antibiotics)Xyukyre5305/21/2023 Other Reaction(s): Unknown Medications MedicationSigDispense QuantityRefillsLast FilledStart DateEnd DateStatus metoprolol succinate XL (Toprol-XL) 50 mg 24 hr tablet Take 1 tablet (50 mg) by mouth once daily.Active pantoprazole (ProtoNix) 40 mg EC tablet Take 1 tablet (40 mg) by mouth 2 times a day.Active methIMAzole (Tapazole) 5 mg tablet Take 1 tablet (5 mg) by mouth every 12 hours.5Active aspirin 81 mg EC tablet Indications:Chest pain, unspecified typeTake 1 tablet (81 mg) by mouth once daily. 90 tablet 5Active Active Problems ProblemNoted DateDiagnosed DateChest pain, bamlodwhbla96/15/2025MI 27.0-27.9,adult05/02/2025GERD (gastroesophageal reflux disease)05/02/2025Never smoked jurtrie6305/02/2025Ventricular ectopic beats05/02/2025White coat syndrome with diagnosis of klyxbnlvfuye02/15/4521Efuxatucuvkbngo17/15/2025 Immunizations ImmunizationAdministration DatesNext DueZoster vaccine, recombinant, adult (SHINGRIX)02/22/2021,11/12/2020 Family History Medical HistoryRelationNameCommentsHypertensionBrotherHeart failureFatherHeart failureMotherHypertensionSisterRelationNameStatusCommentsBrotherFatherMother Sister Social History Tobacco UseTypesPacks/DayYears UsedDateSmoking Tobacco: NeverSmokeless Tobacco: Never Tobacco Cessation:Counseling Given: Not Answered Alcohol UseStandard Drinks/WeekCommentsYes0 (1 standard drink = 0.6 oz pure alcohol)wine rarelyCommentsUnknownSex and Gender InformationValueDate RecordedSex Assigned at BirthNot on fileLegal GkgYzeqxn74/08/2025 12:22 PM EDT Gender IdentityNot on fileSexual OrientationNot on file Last Filed Vital Signs Vital SignReadingTime TakenCommentsBlood Xvljknzb275/75005/02/2025 1:44 PM EDT Cvbpl398405/02/2025 1:13 PM EDTTemperature--Respiratory Rate--Oxygen Saturation-- Inhaled Oxygen Concentration--Qlvjut98.5 kg (140 lb)05/02/2025 1:13 PM EDTHeight 152.4 cm (5')05/02/2025 1:13 PM EDTBody Mass Index27.34005/02/2025 1:13 PM EDT Plan of Treatment DateTypeDepartmentCare Team (Latest Contact Info)Orlxtgrtapi52/19/2026 3:00 PM ESTOffice Visit [facility] [address] [address] James Ayoub MD 703 [facility], [facility] [address] [place] [address] Health MaintenanceDue DateLast DoneCommentsCT Mrayrkzlfssj1957FIT-DNA (Cologuard)1957FIT1957Lipid Panel1957Medicare Annual Wellness Visit (AWV)1955 9116Drbjqighfelyf1957TSH Level1957MMR Vaccines (1 of 1 - Standard series)1958Diabetes Tjbhjdlqm82/17/1975Hepatitis C Zlurictvu08/17/1975DTaP/Tdap/Td Vaccines (1 - Tdap)1979Pneumococcal Vaccine (1 of 1 - PCV)2007RSV High Risk: (Elderly (60+) or Population) (1 - Risk 60-74 years 1-dose series)10/04/20178407Ydkxmhunq60/04/2024 10/22/2022, 06/26/2021one Density Scan5010/22/2022, 09/24/2022Influenza Vaccine (#1)2025OVID-19 Vaccine ( - season)5Colonoscopy olorectal Cancer Whwzqduzb78/16/2033Zoster Vaccines Xwnnnovgm07/07/2021, 11/12/2020HIB VaccinesAged OutNo longer eligible based on patient's age to complete this topicHPV VaccinesAged OutNo longer eligible based on patient's age to complete this topicHepatitis A VaccinesAged OutNo longer eligible based on patient's age to complete this topicHepatitis B VaccinesAged OutNo longer eligible based on patient's age to complete this topicIPV Vaccines Aged OutNo longer eligible based on patient's age to complete this topic Meningococcal VaccineAged OutNo longer eligible based on patient's age to complete this topicRotavirus VaccinesAged OutNo longer eligible based on patient's age to complete this topic Insurance Care Teams Team MemberRelationshipSpecialtyStart DateEnd Vick Zelaya MD [address] [facility] [place] [address] PCP - GeneralFamily Medicine05/02/25
[2025-08-09 09:48] LABS: Hematocrit 41.0 % (36.0-48.0); Hemoglobin 13.0 g/dL (12.0-16.0); Immature Granulocytes Abs Auto 0.02 10^3/uL (0.00-0.03); Immature Granulocytes Pct Auto 0.3 % (0.0-0.5); Lymphocytes Absolute Auto 1.5 10^3/uL (1.2-3.8); Mean Corpuscular HGB Conc 31.7 g/dL (29.9-35.2); Mean Corpuscular Hemoglobin 28.3 pg (26.7-34.0); Mean Corpuscular Volume 89.3 fL (81.0-99.0); Platelet Count 271 10^3/uL (150-450); Red Blood Count 4.59 10^6/uL (4.20-5.40); White Blood Count 6.5 10^3/uL (4.0-11.0)
[2025-08-09 10:17] LABS: Iron 77.0 ug/dL (50.0-170.0)
[2025-08-09 10:30] LABS: Free T3 3.47 pg/mL (2.18-3.98); Thyroid Stimulating Hormone 2.031 uIU/mL (0.358-3.740)
== END 2025-08-09 09:09 | disposition home or self-care (01) ==
LOC: LAB 09:11
PROVIDERS: PCP Family Medicine; Visit Provider Family Medicine
DX: E05.90 Thyrotoxicosis, unspecified without thyrotoxic crisis or storm (principal); L65.9 Nonscarring hair loss, unspecified
CPT/HCPCS: 36415; 83540; 84436; 84443; 84481; 85025